=== PATIENT | female | born 1990 | race Caucasian/White ===

== ENCOUNTER 2017-06-06 11:00 | Outpatient (RCR) | payer OTHER, SELFPAY ==
--- NOTE | 2017-06-01 09:52 | HP.PTEVAL ---
Patient's Visit Information MARIA ELENA LUA is a 26 year old F referred to Physical Therapy by DO GHANSHYAM Yancey with a diagnosis of Lumbar radiculopathy down LLE. Date of Evaluation: 05/30/17 Physical Therapist: Aquiles Gray - Visit Plan Frequency: 2x /Week Duration: 4 Weeks Plan: Start with prone over pillows, slow progression into ext as tolerated. Will not likely tolerate aggressive mobility. HS stretching, and modalities to lumbar spine. Add in neutral spine core strengthening, light to start. Pt. has signs suggesting radiating symptoms, but also unable to fully ruleout any pars issues. More likely having disc type injury with lifting being most liky the mechanism of injury. - Subjective Subjective: Pt. is here today for her initial evaluation with diagnosis of radiating low back pain down her LLE. Pt. reports hurting her back ~2 months ago, she reports unsure what caused it but believes it was from lifting. She reports having no history of LBP prior to this injury. She did she her physician who reports wanting different view of xray to rule out PARS issue. Pt. reports having constant pain with increased pain with lifting, sitting , standing, and bending backwards. Pt. reporst pain constant and lumbar spine and does radiating down her L leg to her foot. Today she reports having pain in her R leg as well after transfering a patient at work. 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 Pt. has pain with all work activities as well. Pt. denies changes in LE strength. Pt. reports no sudden LE weakness in either LE. Pt. denies changes in B/B, no pain in saddle region. Pt. is able to sleep on her stomach without much issues. Pt. also report traveling effects pain negatively. Pt. is hopeful to reduce symptoms in order to get back to all work and recreational activities without limitations. - Pain Lumbar spine Pain Intensity (Out of 10): 6 Pain Intensity Range: 2, 8 - Objective POSTURE: Pt. has slight reduction in lumbar lordosis. Pt. has normal iliac crest heights. Pt. has normal AZEEM, but does sway side to side, always moving. PALPATION: Pt. has increased soreness to bilateral lumbar erector spinea, and spring testing to L3-S1 no hypomobility noted. Pt. has no pain with palpation of bilateral hips or SI region. NEUROLOGICAL: Pt. has normal sensation to light and sharp touch throughout bilateral LEs. Pt. has 2+ R achilles and patellar DTR, but does have 1+ L patellar DTA and 2+ L achilles DTR. Pt. is able to rise on heels and toes without issues. ROM: LUMBAR SPINE: flexion nil loss NE, ext mod loss increase NW, SB min loss mild increase NW bilat, rotation min loss NE bilat. Pt. has tight hamstrings bilaterally, - amna and - faddir testing. Pt. has normal hip ROM, mild increase in hip flexion bilaterally. MMT: RLE- ankle 5/5 throughout; knee- 5/5 throughout knee; hip- flexion 4/5, abd 4/5, ext 4/5. LLE- ankle 5/5 throughout; knee- ext 5-/5, 5-/5; hip- flexion 4/5, abd 4/5, ext 4/5. Core strength- poor+. GAIT: Pt. is able to ambulate without AD, normal step length. Pt. has minimal arm swing bilaterally. Pt. reports no changes in pain with gait. STAIRS: Pt. is able to complete with reciprocal pattern, but does report mild increase in symptoms with ascending and descending. - Special Tests L/S Slump test left side: Positive L/S Slump test right side: Negative L/S Left Straight Leg Raise: Positive L/S Right Straight Leg Raise: Negative Lumbar Standing: Flexion - Mechanical Response: No effect Lumbar Standing: Flexion - Symptoms During Testing: No effect Lumbar Standing: Flexion - Symptoms After Testing: No effect Lumbar Standing: Extension - Mechanical Response: No effect Lumbar Standing: Extension - Symptoms During Testing: Increases Lumbar Standing: Extension - Symptoms After Testing: No worse Lumbar Standing: Right Side Glides - Mechanical Response: No effect Lumbar Standing: Right Side [place] - Symptoms During Testing: No effect Lumbar Standing: Right Side [place] - Symptoms After Testing: No effect Lumbar Standing: Left Side [place] - Mechanical Response: No effect Lumbar Standing: Left Side [place] - Symptoms During Testing: No effect Lumbar Standing: Left Side [place] - Symptoms After Testing: No effect Lumbar Lying: Flexion - Mechanical Response: No effect Lumbar Lying: Flexion - Symptoms During Testing: Decreases Lumbar Lying: Flexion - Symptoms After Testing: No better Lumbar Lying: Extension - Mechanical Response: No effect Lumbar Lying: Extension - Symptoms During Testing: Increases Lumbar Lying: Extension - Symptoms After Testing: No worse Comments:: slight flexion improved, but incraesed flexion worsened symptoms. - Goals Goal 1:: Pt. to be I with HEP. Goal Time Frame: 4-6 Weeks Goal 2:: Pt. to have increased lumbar ROM by 25% in all directions without increase in symptoms. Goal Time Frame: 4-6 Weeks Goal 3:: Pt. to have increased core and hip strength increased by 1/2 grade in all directions reducing stress applied to lumbar spine with all lifting and functional mobility. Goal Time Frame: 4-6 Weeks Goal 4:: Pt. to demonstrate improved posture throughout therapy session indicating increased postural awareness. Goal Time Frame: 4-6 Weeks Goal 5:: Pt. to have decreased pain to 0-2/10 pain with all sitting allowing for increased tolerance with traveling. Goal Time Frame: 4-6 Weeks Goal 6:: Pt. to have 0-2/10 pain with all work related activities. Goal Time Frame: 4-6 Weeks - Rehabilitation Potential Physical Therapy Diagnosis: Pt. has signs and symptoms consistent with L lumbar radiculopathy. Pt. did not appear to have a direction preferrence this date, but did better with slight flexion. Pt. has no myotomal weakness, but did have decreased patellar DTR on L side. Pt. has weak core strength and weak hip strength bilaterally. Pt. would benefit from PT reduce symptoms and increase core strength allowing increased tolerance to work and recreational activities. Rehabilitation Potential: Fair - Anticipated Interventions Patient/Client Instruction: Educate patient on: Condition, Plan of Care, Risk Factors, Benefits of Fitness Program For the Purpose of:: To improve decision making, To facilitate caregiver knowledge, To improve self management, To prevent re-injury, To improve ability to perform tasks related to life management, To improve tolerance to ADL's Therapeutic Exercise to Include: Strength training, Power training, Endurance training, Postural training, Flexibilty training, Passive ROM, Active ROM, Dynamic Lumbar Stabilization, Maria De Jesus Exercises For the Purpose of:: To decrease pain, To increase ROM, To improve nutrient delivery to tissue, To increase oxygenation perfusion, To improve muscle performance and motor function, To improve ability to perform ADL's, To improve performance and independence with ADL's, To improve health of tissue, To decrease soft tissue restriction, To increase flexibility/ROM IF ES: Yes Thermo therapy (hot pack): Yes Ultrasound (thermal/non thermal): Yes For the Purpose of:: To decrease pain, To decrease swelling/inflammation, To increase ROM, To improve nutrient delivery to tissue, To increase oxygenation perfusion, To improve muscle performance and motor function Thank you for the opportunity to evaluate your patient. For Medicare and Medicare HMO plans, please review the plan of care and approve it. It will need to be FAXED BACK to us at [phone] for Medicare purposes. Please let me know if there are questions or concerns regarding this plan of care. Physician Signature: Date:
--- NOTE | 2017-12-14 16:45 | HP.PT.NRP ---
HP - Discharge Summary (1) - Patient Information MARIA ELENA LUA was seen in my office for initial evaluation on 05/30/17. The following Plan of Care was established for this patient: Initial Frequency: 2x /Week Initial Duration: 4 Weeks - Anticipated Interventions Patient/Client Instruction: Educate patient on: Condition, Plan of Care, Risk Factors, Benefits of Fitness Program For the Purpose of:: To improve decision making, To facilitate caregiver knowledge, To improve self management, To prevent re-injury, To improve ability to perform tasks related to life management, To improve tolerance to ADL's Therapeutic Exercise to Include: Strength training, Power training, Endurance training, Postural training, Flexibilty training, Passive ROM, Active ROM, Dynamic Lumbar Stabilization, Maria De Jesus Exercises For the Purpose of:: To decrease pain, To increase ROM, To improve nutrient delivery to tissue, To increase oxygenation perfusion, To improve muscle performance and motor function, To improve ability to perform ADL's, To improve performance and independence with ADL's, To improve health of tissue, To decrease soft tissue restriction, To increase flexibility/ROM IF ES: Yes Thermo therapy (hot pack): Yes Ultrasound (thermal/non thermal): Yes For the Purpose of:: To decrease pain, To decrease swelling/inflammation, To increase ROM, To improve nutrient delivery to tissue, To increase oxygenation perfusion, To improve muscle performance and motor function This patient was last seen in our office 06/06/17. Pertinent comments regarding their Physical therapy will appear below: Pt. was seen for her lumbar radicuolopathy. Pt. was having positive effects with extension progression. Pt. did not attend her final visits. Pt. has not been seen in ~7 months and will be DC from PT at this point in time. At this point I will be discontinuing this patient from physical therapy. I would be happy to see this patient again in the future if found appropriate by the physician. Thank you! Aquiles Gray
== END 2017-06-06 19:00 | disposition home or self-care (01) ==
LOC: PT 11:00
PROVIDERS: Family Provider Family Medicine; PCP Family Medicine; Visit Provider Orthopaedic Surgery
DX: M54.10 Radiculopathy, site unspecified (principal); M54.5 Low back pain
CPT/HCPCS: 72110; 97014; 97110; 97161; G0283

== ENCOUNTER → 2018-02-23 15:35 | Outpatient (CLI) | payer OTHER, SELFPAY | PROVIDERS: Referring Provider Physician Assistant; Visit Provider Physician Assistant | DX: J02.9 Acute pharyngitis, unspecified (principal) | CPT/HCPCS: 87081 ==

== ENCOUNTER 2018-03-24 06:53 | Day surgery (SDC) | payer OTHER, SELFPAY ==
[2018-03-24] VITALS (9 sets, daily range): BP systolic 98–123; BP diastolic 54–77; PULSE 65–87; RESP 16–18; TEMP 36.5–37; O2SAT 92–97; BMI 38.5
[2018-03-24 07:28] LABS: Internal QC Validated? YES +Cl - CLEAR BKGD; Pregnancy, Urine Negative Negative
--- NOTE | 2018-03-24 08:25 | TONS_PTH ---
PATIENT: MARIA ELENA LUA LOC: [facility] [place] U#:[id number] AGE/SX: 27/F ROOM: RE03/24/[address]: Dr. Alvaro James MD : 1990 BED: DIS: 03/24/2018 SPEC #: [id number] RECD: 03/24/18 11:15 STATUS: GLENIS REDenny #: [id number] MICHELLE: 03/24/18 08:[address]: Alvaro James DEPT: SURGICAL PATHOLOGY RECD BY: Ryan Barney ENTERED: 03/24/18 11:39 SP TYPE: TONSILS OTHR DR: Dr. Vishnu Alejo III, MD Tissues: A - Tonsil, NOS B - Tonsil, NOS Procedures: Surgery Specimen Level III HEADER OPERATION: Tonsillectomy PRE-OP DIAGNOSIS: Chronic tonsillitis TISSUE SUBMITTED: A - Right tonsil, B - Left tonsil MICROSCOPIC DIAGNOSIS A. Right tonsil, tonsillectomy: Benign lymphoid hyperplasia consistent with chronic tonsillitis. Organisms consistent with actinomyces. B. Left tonsil, tonsillectomy: Benign lymphoid hyperplasia consistent with chronic tonsillitis. Organisms consistent with actinomyces. AM:radha 03/27/18 MICROSCOPIC DESCRIPTION Slides are reviewed. GROSS DESCRIPTION A. Received in formalin labeled with the patient's name and designated right tonsil The specimen consists of one tonsil that in aggregate weigh 3.7 gm. The right tonsil measures 3 x 2 x 1.5 cm B. Received in formalin labeled with the patient's name and designated left tonsil. The specimen consists of one tonsil that in aggregate weigh 3.8 gm. The left tonsil measures 3 x 2 x 1.5 cm. / SJ:radha 03/24/18 TC: 5 CPT: 86345 x2
--- NOTE | 2018-03-24 09:23 | PCM.OPRPT ---
Problem List (1) Chronic tonsillitis Status: Chronic Report of Operation Date of Procedure: 03/24/18 Pre-Operative Diagnosis: chronic tonsillitis Post-Operative Diagnosis: same Surgery/Procedure Performed:: Tonsillectomy Description of Surgical Findings:: Tee is a 27-year-old female who presents for evaluation of chronic recurrent severe sore throats and tonsillitis. Examination showed 3+ cryptic tonsillar hypertrophy and she was counseled regarding the above procedure in hopes of improvement was eager to proceed. The risks, alternatives, potential benefits, and complications were discussed at length and any questions answered to the patient and/or caregiver's satisfaction. Witnessed informed consent was obtained in the office, and the patient and/or caregiver was agreeable to proceed. Procedure went as follows: The patient was identified in the preoperative holding, brought to the operating room, was placed under general anesthesia and intubated. When appropriate anesthesia was obtained, the head of bed was rotated and the patient prepped and draped in usual sterile fashion. A Jackie Lorenzo mouthgag was then placed and the patient suspended from the Choi stand. The oral cavity examined and is noted to have 3+ cryptic tonsillar hypertrophy. Beginning on the right side the right tonsil was then grasped with a curved tenaculum and dissected from the underlying capsule with monopolar cautery. This was then sent as specimen. Similar procedure was then completed on the contralateral side. The oral and nasal cavities were then irrigated with saline solution, an NG tube was then placed to decompress the stomach. The patient was then returned to anesthesia, revived and extubated having tolerated the procedure well. Type of Anesthesia:: General Anesthesiologist: Alvaro Jeffries Special Medications: none Specimen's removed: bilateral tonsils Drains: none Estimated Blood Loss (mL): 5 mL Fluids Replaced: 1000 mL Grafts/Implants Used: none - Complications none - Admit VTE Documentation VTE Present on Admission: No VTE Mechan Device Prophylaxis: SCD's VTE Pharm Prophylaxis ordered?: No
--- NOTE | 2018-03-24 09:39 | DCINST_ITS ---
Discharge Diet: No Restrictions Discharge Activity: Return to Normal Activity, May not drive while taking narcotic pain medications. Call your doctor if your incision/area has: Sudden Increased Bleeding Call your doctor if you observe: Fever of 101 or Higher, Uncontrolled pain Allergies/Adverse Reactions: Allergies No Known Allergies Allergy (Verified 03/22/18 08:26) Medications to take at Discharge Gabapentin 300 mg PO BID 10/04/16 Propranolol HCl [Inderal (Beta Ezequiel)] 60 mg PO BID 10/04/16 ibuprofen 200 mg tablet 200 mg PO ONCE 05/24/17 Albuterol IH (ProAir) [Proair Hfa (SP)Vent Pts] 1 - 2 puff INHALATION Q6H PRN P RN 03/22/18 Eletriptan Hydrobromide [Relpax] 40 mg PO .X1 PRN 03/22/18 Erenumab-Aooe [Aimovig Autoinjector (2 Pack)] 70 mg SQ QMONTH 03/22/18 Naratriptan HCl [Amerge] 2.5 mg PO PRN PRN 03/22/18 Ondansetron [Zofran] 8 mg PO Q12H PRN PRN 03/22/18 Rizatriptan Benzoate [Maxalt] 10 mg PO .X1 PRN 03/22/18 Sumatriptan Succinate [Imitrex] 100 mg PO .X1 PRN 03/22/18 Venlafaxine HCl [Effexor] 75 mg PO DAILY 03/22/18 Primary Care Physician: Vishnu Alejo III, MD [Primary Care Provider] - Test Results: Test results from this visit will be discussed in further detail at your follow- up appointment, if applicable. Please Follow Up With: Alvaro James MD When: 2 weeks
[2018-03-24] MEDS: Acetaminophen 160 MG/5 ML UDC 500 MG PO (12:18)
== END 2018-03-24 13:06 | disposition home or self-care (01) ==
LOC: SDC 06:55 → AC 06:55
PROVIDERS: Family Provider Family Medicine; PCP Family Medicine; Referring Provider Otolaryngology; Visit Provider Otolaryngology
PROC: (CPT 42826; principal; 2018-03-24 08:10)
DX: J35.01 Chronic tonsillitis (principal); G43.909 Migraine, unspecified, not intractable, without status migrainosus; J45.909 Unspecified asthma, uncomplicated; Z79.899 Other long term (current) drug therapy
CPT/HCPCS: 42826; 81025; 88304; J7120; J2405

== ENCOUNTER 2018-04-03 06:01 | Day surgery (SDC) | payer OTHER, SELFPAY ==
[2018-04-03] VITALS (13 sets, daily range): BP systolic 88–132; BP diastolic 53–97; PULSE 75–111; RESP 16–18; TEMP 35.9–37.4; O2SAT 95–99; BMI 39.2
--- NOTE | 2018-04-03 06:03 | ED.RN ---
DR HATFIELD PAGED
--- NOTE | 2018-04-03 06:07 | ED.VISSUMM ---
- ER Visit Summary Date of Service: 04/03/18 Chief Complaint: Postop bleed History of Present Illness: The patient is a 27 F 10-day postop tonsillectomy by Dr. James. Patient on soft foods, pain medicines of Tylenol and Motrin. States there is mild bleeding last night, did call her surgeon. 3:50 AM this morning worsening bleeding. EMS was contacted. Emesis bags have been filled up half way x2. No anticoagulation medicines. Sore throat from surgery. History of migraines. Physical Examination: General: Alert and oriented ?3, no acute distress HEENT: Normocephalic, atraumatic. Moist mucosa membranes. Blood in the oropharynx, spitting up blood. There is a clot left peritonsillar pillar. Neck: supple, nontender. Cardiovascular: Regular tachycardic rate and rhythm, no murmurs Respiratory: Normal breath sounds, symmetric, no distress Abdomen: Soft, nontender, nondistended Extremities: Nontender, no edema, pulses intact ?4 Neuro: no focal neurological deficits. Skin: No pallor Test Results: CBC, BMP, coags, type and screen pending Emergency Department Course and Treatment: Patient postop bleed, for evaluation of emesis bags, would be approximately 1 L that she is spitting up. Clot in the left peritonsillar pillar. Dr. James was contacted on her arrival, he is on his way to take the patient to the OR. The OR team will be contacted. Last meal was last evening. Treatment Plan: [] Disposition: To OR Impression: 1. Postop bleed 2. Status post tonsillectomy This note was generated with [employer] dictation software. It may contain incorrect words, spelling, and punctuation that were not noted in review of the chart prior to signing ED Disposition - Plan for ED Patient: Disposition: Acute Care Hospital [facility] Chief Complaint: Other, Pain/Inj Diagnosis: Post-op bleeding, Post-tonsillectomy hemorrhage Referrals: Vishnu Alejo III, MD [Primary Care Provider] -
--- NOTE | 2018-04-03 06:12 | ED.DCSUM_ITS ---
- ER Visit Summary Date of Service: 04/03/18 Chief Complaint: Postop bleed History of Present Illness: The patient is a 27 F 10-day postop tonsillectomy by Dr. James. Patient on soft foods, pain medicines of Tylenol and Motrin. States there is mild bleeding last night, did call her surgeon. 3:50 AM this morning worsening bleeding. EMS was contacted. Emesis bags have been filled up half way x2. No anticoagulation medicines. Sore throat from surgery. History of migraines. Physical Examination: General: Alert and oriented ?3, no acute distress HEENT: Normocephalic, atraumatic. Moist mucosa membranes. Blood in the oropharynx, spitting up blood. There is a clot left peritonsillar pillar. Neck: supple, nontender. Cardiovascular: Regular tachycardic rate and rhythm, no murmurs Respiratory: Normal breath sounds, symmetric, no distress Abdomen: Soft, nontender, nondistended Extremities: Nontender, no edema, pulses intact ?4 Neuro: no focal neurological deficits. Skin: No pallor Test Results: CBC, BMP, coags, type and screen pending Emergency Department Course and Treatment: Patient postop bleed, for evaluation of emesis bags, would be approximately 1 L that she is spitting up. Clot in the left peritonsillar pillar. Dr. James was contacted on her arrival, he is on his way to take the patient to the OR. The OR team will be contacted. Last meal was last evening. Treatment Plan: [] Disposition: To OR Impression: 1. Postop bleed 2. Status post tonsillectomy This note was generated with [employer] dictation software. It may contain incorrect words, spelling, and punctuation that were not noted in review of the chart prior to signing ED Disposition - Plan for ED Patient: Disposition: Acute Care Hospital [facility] Chief Complaint: Other, Pain/Inj Diagnosis: Post-op bleeding, Post-tonsillectomy hemorrhage Referrals: Vishnu Alejo III, MD [Primary Care Provider] -
[2018-04-03] MEDS: 0.9% Normal Saline 1,000 ML 150 ML IV (06:15)
[2018-04-03 06:32] LABS: Absolute Lymphocyte Count 3.19 X10^3/ul (0.83-4.51); Absolute Neutrophil Count 7.7 X10^3/uL (2.0-7.7); Anion Gap 12 (5-15); BUN 15 mg/dL (7-18); BUN/Creat Ratio 18.6 RATIO (10-20); Basophil# 0.05 X10^3/uL; Basophil% 0.4 % (0-1); Calcium,Total 8.1 mg/dL (8.5-10.1); Chloride 101 mmol/L (98-107); Creatinine, Serum 0.81 mg/dL (0.55-1.02); EST Glomerular Filtration Rate 90 mL/min (>60); Eosinophils% 5.5 % (0-5); Est Glom Filt Rate - Afr Amer 109 mL/min (>60); Estimated Creatinine Clearance 90.09 ml/min; Glucose 105 mg/dL (74-106); Hematocrit 34.3 % (37-47); Hemoglobin 10.8 g/dl (12.0-15.0); Lymphocyte # 3.19 X10^3/ul (4.0); Lymphocyte % 25.1 % (19-41); Mean Corp Hgb Conc 31.5 g/gl (32-36); Mean Corpuscular Hgb 26.3 pg (27.0-32.0); Mean Corpuscular Volume 83.7 fL (81-99); Mean Platelet Vol. 9.8 fl (6.2-12.0); Monocyte# 1.05 X10^3/uL; Monocyte% 8.3 % (0-10); Neutrophil # 7.68 X10^3/uL (2.7-7.7); Neutrophil % 60.5 % (47-70); POSITIVE COUNT NO; POSITIVE DIFFERENTIAL NO; POSITIVE MORPHOLOGY NO; Platelet Count 589 K/mm3 (150-450); Potassium 3.5 mmol/L (3.5-5.1); RBC Distribution Width CV 13.1 % (11.6-14.6); RBC Distribution Width SD 39.8 fl (35.1-43.9); Sodium Level 138 mmol/L (136-145); White Blood Count 12.7 K/mm3 (4.4-11.0)
[2018-04-03 06:50] LABS: Prothrombin Time (Protime)PT. 13.2 SECONDS (11.7-14.9)
[2018-04-03 06:51] LABS: Partial Thromboplast Time 35.4 Seconds (24.1-36.2)
--- NOTE | 2018-04-03 07:35 | PCM.OPRPT ---
Problem List (1) Post-tonsillectomy hemorrhage Status: Acute Report of Operation Date of Procedure: 04/03/18 Pre-Operative Diagnosis: Post-tonsillectomy hemorrhage Post-Operative Diagnosis: same Surgery/Procedure Performed:: Control of post-tonsillectomy hemorrhage Description of Surgical Findings:: Tee is a 27-year-old female status post tonsillectomy for chronic tonsillitis who presented with complaints of profuse oropharyngeal bleeding starting around 330 this morning. Examination showed bleeding from the oropharynx consistent with post tonsillectomy hemorrhage and return to the OR for control as she had episodic bleeding over the last 12 hours was advised for definitive evaluation and control. The risks, alternatives, potential benefits, and complications were discussed at length and any questions answered to the patient and/or caregiver's satisfaction. Witnessed informed consent was obtained in the office, and the patient and/or caregiver was agreeable to proceed. Procedure went as follows: The patient was identified in the preoperative holding brought to the operating room where she is placed under general anesthesia which using rapid sequence technique. When appropriate anesthesia was obtained, the head of bed was rotated the patient prepped and draped in a sterile fashion. A Jackie-Lorenzo mouthgag was then placed and the patient suspended from the Choi jumpbasting canvas baster the oral cavity examined. There is noted to be an organized clot arising from the inferior left tonsillar pillar. This was removed to show a small point of venous bleeding. This was controlled with suction electrocautery. The remaining tonsillar eschar was reviewed to the suction and no further bleeding site was identified. An NG tube was then placed to decompress the stomach and the stomach suctioned until clear after irrigated with saline solution. Upon completion the patient was taken out of suspension return to anesthesia she was divided and expanded without complication having tolerated the procedure well. Type of Anesthesia:: General Anesthesiologist: Rolly Rm Special Medications: none Specimen's removed: none Estimated Blood Loss (mL): 0 mL Fluids Replaced: 400 mL Grafts/Implants Used: none - Admit VTE Documentation VTE Present on Admission: No VTE Mechan Device Prophylaxis: None VTE Pharm Prophylaxis ordered?: No Reason prophylaxis not ordered:: Procedure Not Indicated
--- NOTE | 2018-04-03 07:39 | DCINST_ITS ---
Discharge Diet: No Restrictions Discharge Activity: Return to Normal Activity Call your doctor if your incision/area has: Sudden Increased Bleeding Call your doctor if you observe: Fever of 101 or Higher, Uncontrolled pain Allergies/Adverse Reactions: Allergies No Known Allergies Allergy (Verified 04/03/18 06:11) Medications to take at Discharge Gabapentin 300 mg PO BID 10/04/16 Propranolol HCl [Inderal (Beta Ezequiel)] 60 mg PO BID 10/04/16 Albuterol IH (ProAir) [Proair Hfa] 1 - 2 puff INHALATION Q6H PRN PRN 03/22/18 Eletriptan Hydrobromide [Relpax] 40 mg PO .X1 PRN 03/22/18 Erenumab-Aooe [Aimovig Autoinjector (2 Pack)] 70 mg SQ QMONTH 03/22/18 Naratriptan HCl [Amerge] 2.5 mg PO PRN PRN 03/22/18 Ondansetron [Zofran] 8 mg PO Q12H PRN PRN 03/22/18 Rizatriptan Benzoate [Maxalt] 10 mg PO .X1 PRN 03/22/18 Sumatriptan Succinate [Imitrex] 100 mg PO .X1 PRN 03/22/18 Venlafaxine HCl [Effexor] 75 mg PO DAILY 03/22/18 Acetaminophen Liquid [Tylenol Liquid] 500 mg PO Q4H PRN PRN udc 03/24/18 Ibuprofen Liquid [Motrin Liquid] 600 mg PO Q8H PRN PRN udc 03/24/18 Primary Care Physician: Vishnu Alejo III, MD [Primary Care Provider] - Test Results: Test results from this visit will be discussed in further detail at your follow- up appointment, if applicable. Please Follow Up With: Alvaro James MD When: 2 weeks
[2018-04-03] MEDS: Lactated Ringers 1,000 ML 100 ML IV (09:21)
[2018-04-03] MEDS: Ibuprofen 100 MG/5 ML UDC 500 MG PO (09:47)
--- NOTE | 2018-04-03 11:32 | SUR.PHASEII ---
PATIENT WILL NOT DRINK FLUIDS AFTER REPEATED ENCOURAGEMENT AND EDUCATION. HAS TAKEN FRUIT ICE, BUT REFUSING TO DRINK. ADVISED THAT DRINKING WILL HELP PATIENT IMPROVE, PREVENT FURTHER POST-OP BLEEDING AND PAIN. NOTIFIED MALISSA VANG TO D/C HOME.
== END 2018-04-03 12:09 | disposition home or self-care (01) ==
LOC: ED 06:28 → SDC 06:32
PROVIDERS: Emergency Provider Emergency Medicine; Family Provider Family Medicine; PCP Family Medicine; Visit Provider Otolaryngology
PROC: (CPT 42962; principal; 2018-04-03 07:35)
DX: J95.830 Postprocedural hemorrhage of a respiratory system organ or structure following a respiratory system procedure (principal)
CPT/HCPCS: 42962; 80048; 85025; 85610; 85730; 86850; 86900; 99283; J7120; J2405

== ENCOUNTER 2018-07-07 14:20 | Emergency (ER) | payer OTHER, SELFPAY ==
[2018-04-03 06:18] VITALS: BMI 39.2
[2018-07-07 14:21] VITALS: BP 161/95; PULSE 77; RESP 16; TEMP 35.6; BMI 37.3
--- NOTE | 2018-07-07 14:42 | ED.DCSUM_ITS ---
- ER Visit Summary Date of Service: 07/07/18 Chief Complaint: [] History of Present Illness: The patient is a 27 F presents to the emergency department migraine headache. Patient has a history of recurrent migraines. She is on daily controlling medications and prophylactic medications. She states over the past 5 days, she is had almost a persistent headache. She has tried her DHE and her triptan injection with some improvement, but then the headache returns. She denies any fevers or chills. She denies trauma. She denies visual change. She denies any other systemic symptoms. She states does feel like her normal headaches. Physical Examination: Well-appearing patient is in no acute distress. Head is normocephalic, atraumatic. Pupils equal round reactive, extraocular muscles intact. There is no temporal artery tenderness. There is no vesicular rash. Neck supple. Kernig's and Brudzinski's are negative. Heart regular rate and rhythm. Lungs clear, chest nontender. Abdomen soft, nontender, nondistended. Neuro exam displays no focal or lateralizing deficit. 2+ symmetric lower extremity reflexes. No clonus. No ataxia or gait abnormality. Test Results: [] Emergency Department Course and Treatment: The patient has a benign neurologic examination. She is not meningitic. She is nonencephalopathic. Her neck is supple. She was treated with migraine abortive medications. She did have im provement of her symptoms. I also gave her Decadron to prevent rebound headache. On reevaluation, she is resting comfortably and is requesting discharge. I feel this is reasonable. The patient was counseled concerning symptoms and reasons to return. She will be discharged home. Treatment Plan: [] Disposition: Discharge Impression: Migraine headache This note was generated with Jumio dictation software. It may contain incorrect words, spelling, and punctuation that were not noted in review of the chart prior to signing ED Disposition - Plan for ED Patient: Instructions: ED Headache Migraine Referrals: Vishnu Aleoj III, MD [Primary Care Provider] -
[2018-07-07] MEDS: DiphenhydrAMINE 50 MG/ML Syringe IV (14:59)
[2018-07-07] MEDS: 0.9% Normal Saline 1,000 ML 999 ML IV (14:59)
[2018-07-07] MEDS: Ketorolac 30 MG/ML Syringe IV (14:59)
[2018-07-07] MEDS: proCHLORPERazine 10 MG/2 ML Vial IV (15:00)
== END 2018-07-07 16:28 | disposition home or self-care (01) ==
LOC: ED 14:37
PROVIDERS: Emergency Provider Emergency Medicine; Family Provider Family Medicine; PCP Family Medicine
DX: G43.909 Migraine, unspecified, not intractable, without status migrainosus (principal); Z79.899 Other long term (current) drug therapy
CPT/HCPCS: 96361; 96374; 96375; 99283; J7030; A4216

== ENCOUNTER 2018-10-18 16:23 | Emergency (ER) | payer OTHER, SELFPAY ==
[2018-10-18 16:24] VITALS: BP 171/106; PULSE 95; RESP 16; TEMP 36.1; O2SAT 98; BMI 38.6
--- NOTE | 2018-10-18 16:44 | CT_ITS ---
STUDY: CT BRAIN WITHOUT CONTRAST REASON FOR EXAM: Female, 28 years old. Dizziness and confusion RADIATION DOSAGE (If Supplied By Facility): CTDIvol = ( 44.99 ) mGy, DLP = ( 745.49 ) mGycm TECHNIQUE: Transaxial CT imaging of the brain was performed without administration of intravenous contrast material. Individualized dose optimization techniques were used for this CT. COMPARISON: 2016 FINDINGS: Normal soft tissue structures. Normal calvarium. Normal size ventricles and extra-axial spaces for the patient's age. Normal white matter tracts of the cerebral hemispheres. Normal basal ganglia and thalami. Normal brainstem. Normal cerebellum. There is no intracranial hemorrhage. There are no findings of an acute ischemic infarction. Normal visualized paranasal sinuses. CT/Brain/Head without Contrast IMPRESSION: Normal unenhanced CT scan of the brain. Electronically Signed: Jeremy Rodriguez MD at 17:14 EDT , Service support ,
--- NOTE | 2018-10-18 16:46 | ED.VISSUMM ---
- ER Visit Summary Date of Service: 10/18/18 Chief Complaint: Jaw pain History of Present Illness: The patient is a 28 F with jaw pain for 2 days. The pain is under her left mandible. Worse with clenching, touch, and stretching her neck. She thinks is related to a fractured tooth and possible dental infection. She fractured the tooth secondary to underlying decay about a month ago patient presented to urgent care. She said that she has been having migraines for the past week. She has outpatient treatment scheduled for Tuesday and Tuesday of next week. She reports some confusion and feeling weird. She says she has had some memory issues and dizziness for the past couple days. No speech changes. No vision changes.. No facial droop. No focal weakness or numbness. No blood thinners. No trauma. No fevers or other associated symptoms. Physical Examination: Afebrile and vital signs are unremarkable. Patient is alert and oriented. No acute distress. HEENT exam is unremarkable except she does have some tenderness to her left submandibular region. No definite mass is appreciated, but the area does demonstrate some fullness. She has a fractured left mandibular molar secondary to underlying decay. No abscess is visualized. Neck otherwise unremarkable. Cranial nerves grossly intact. Normal strength and sensation. Patient is completely alert and oriented and she is able to describe her symptoms and history in very great detail. Test Results: CT pending. Emergency Department Course and Treatment: Patient treated with fluids, Compazine, Benadryl, and Toradol. Will reassess. On reevaluation, the patient's symptoms are better. She is drowsy. Pain is improved. CT was unremarkable. I believe the patient is appropriate for outpatient follow-up. No further indication for imaging or other testing. Patient was given a prescription for Pen-Vee K. Follow-up with dental and primary care. Return for any new or worsening issues. Treatment Plan: As above Disposition: Discharge Impression: 1. Headache 2. Left mandible pain This note was generated with J[employer] dictation software. It may contain incorrect words, spelling, and punctuation that were not noted in review of the chart prior to signing ED Disposition - Plan for ED Patient: Referrals: Vishnu Alejo III, MD [Primary Care Provider] -
--- NOTE | 2018-10-18 16:50 | ED.DCSUM_ITS ---
- ER Visit Summary Date of Service: 10/18/18 Chief Complaint: Jaw pain History of Present Illness: The patient is a 28 F with jaw pain for 2 days. The pain is under her left mandible. Worse with clenching, touch, and stretching her neck. She thinks is related to a fractured tooth and possible dental infe ction. She fractured the tooth secondary to underlying decay about a month ago patient presented to urgent care. She said that she has been having migraines for the past week. She has outpatient treatment scheduled for Tuesday and Tuesday of next week. She reports some confusion and feeling weird. She says she has had some memory issues and dizziness for the past couple days. No speech changes. No vision changes.. No facial droop. No focal weakness or numbness. No blood thinners. No trauma. No fevers or other associated symptoms. Physical Examination: Afebrile and vital signs are unremarkable. Patient is alert and oriented. No acute distress. HEENT exam is unremarkable except she does have some tenderness to her left submandibular region. No definite mass is appreciated, but the area does demonstrate some fullness. She has a fractured left mandibular molar secondary to underlying decay. No abscess is visualized. Neck otherwise unremarkable. Cranial nerves grossly intact. Normal strength and sensation. Patient is completely alert and oriented and she is able to describe her symptoms and history in very great detail. Test Results: CT pending. Emergency Department Course and Treatment: Patient treated with fluids, Compazine, Benadryl, and Toradol. Will reassess. On reevaluation, the patient's symptoms are better. She is drowsy. Pain is improved. CT was unremarkable. I believe the patient is appropriate for outpatient follow-up. No further indication for imaging or other testing. Patient was given a prescription for Pen-Vee K. Follow-up with dental and primary care. Return for any new or worsening issues. Treatment Plan: As above Disposition: Discharge Impression: 1. Headache 2. Left mandible pain This note was generated with [employer] dictation software. It may contain incorrect words, spelling, and punctuation that were not noted in review of the chart prior to signing ED Disposition - Plan for ED Patient: Referrals: Vishnu Alejo III, MD [Primary Care Provider] -
[2018-10-18] MEDS: 0.9% Normal Saline 1,000 ML 999 ML IV (17:28)
[2018-10-18] MEDS: DiphenhydrAMINE 50 MG/ML Syringe 25 MG IV (17:28)
[2018-10-18] MEDS: proCHLORPERazine 10 MG/2 ML Vial IV (17:28)
[2018-10-18] MEDS: Ketorolac 30 MG/ML Syringe IV (17:28)
--- NOTE | 2018-10-18 18:01 | ED.DEP ---
ED Disposition - Plan for ED Patient: Instructions: ED Cephalgia Unspecified Prescriptions: Penicillin V Potassium 500 mg PO 4X/DAY #40 tab Referrals: Vishnu Alejo III, MD [Primary Care Provider] -
[2018-10-18 18:39] VITALS: PULSE 92; RESP 17; O2SAT 99
== END 2018-10-18 18:45 | disposition home or self-care (01) ==
LOC: ED 16:58
PROVIDERS: Emergency Provider Emergency Medicine; Family Provider Family Medicine; PCP Family Medicine
DX: R51 Headache (principal); R68.84 Jaw pain
CPT/HCPCS: 70450; 96361; 96374; 96375; 99283; J7030; A4216

== ENCOUNTER 2019-02-28 10:37 | Emergency (ER) | payer OTHER, SELFPAY ==
[2019-02-28 10:39] VITALS: BP 148/101; PULSE 97; RESP 14; TEMP 37.3; O2SAT 99; BMI 36.3
[2019-02-28 11:02] VITALS: BP 144/80; PULSE 84; RESP 17; O2SAT 96
--- NOTE | 2019-02-28 11:05 | RAD_ITS ---
STUDY: X-RAY CHEST REASON FOR EXAM: Female, 28 years old. Chest pain and left-sided arm pain. TECHNIQUE: Single AP portable view of the chest. COMPARISON: Comparison is made with prior study dated April 15, 2016. FINDINGS: EKG electrodes are seen. The lungs are clear and expanded. There is no demonstrated pleural abnormality. Normal size heart. Normal mediastinum and kay. Normal visualized pulmonary arteries. Normal visualized aortic arch and descending thoracic aorta. Normal visualized thoracic spine. Normal visualized ribs, clavicles, and shoulders. There is no demonstrated abnormality of the visualized soft tissue structures of the upper abdomen. RAD/Chest 1 View (Portable) IMPRESSION: Normal x-ray examination of the chest. Electronically Signed: Richie Gray, at 11:28 EDT , Service support ,
--- NOTE | 2019-02-28 11:05 | EKG12_ITS ---
Test Reason : CP Blood Pressure : / mmHG Vent. Rate : 090 BPM Atrial Rate : 090 BPM P-R Int : 140 ms QRS Dur : 086 ms QT Int : 358 ms P-R-T Axes : 020 007 010 degrees QTc Int : 437 ms Normal sinus rhythm Normal ECG Confirmed by ALEXANDREA ANTONIO, KEENAN ([id number]), general expeditor RADHIKA RUIZ ([id number]) on 03/07/2019 11:02:21 AM Referred By: DC Confirmed By:OKSANA LECHUGA MD
[2019-02-28 11:25] VITALS: O2SAT 95
[2019-02-28 11:29] LABS: Absolute Lymphocyte Count 2.11 X10^3/uL (0.83-4.51); Absolute Neutrophil Count 5.6 X10^3/uL (2.0-7.7); Basophil# 0.06 X10^3/uL; Basophil% 0.7 % (0-1); Eosinophil# 0.42 X10^3/uL; Eosinophils% 4.8 % (0-5); Hematocrit 40.7 % (37-47); Hemoglobin 12.8 g/dL (12.0-15.0); Lymphocyte # 2.11 X10^3/ul (4.0); Mean Corp Hgb Conc 31.4 g/dL (32-36); Mean Corpuscular Hgb 25.6 pg (27.0-32.0); Mean Corpuscular Volume 81.4 fL (81-99); Mean Platelet Vol. 10.2 fl (6.2-12.0); Monocyte# 0.55 X10^3/uL; Monocyte% 6.3 % (0-10); NRBC Flagged by Analyzer 0 % (0-5); Neutrophil # 5.62 X10^3/uL (2.7-7.7); Neutrophil % 63.7 % (47-70); Platelet Count 367 K/mm3 (150-450); RBC Distribution Width CV 13.4 % (11.6-14.6); RBC Distribution Width SD 39.4 fl (35.1-43.9); White Blood Count 8.8 K/mm3 (4.4-11.0)
[2019-02-28 11:48] LABS: Anion Gap 9 (5-15); BUN 11 mg/dL (7-18); BUN/Creat Ratio 16.9 RATIO (10-20); Calcium,Total 8.8 mg/dL (8.5-10.1); Chloride 106 mmol/L (98-107); Creatinine, Serum 0.65 mg/dL (0.55-1.02); EST Glomerular Filtration Rate 115 mL/min (>60); Est Glom Filt Rate - Afr Amer 139 mL/min (>60); Estimated Creatinine Clearance 115.95 ml/min; Glucose 98 mg/dL (74-106); Potassium 3.8 mmol/L (3.5-5.1); Sodium Level 140 mmol/L (136-145)
--- NOTE | 2019-02-28 11:57 | ED.VISSUMM ---
- ER Visit Summary Date of Service: 02/28/19 Chief Complaint: Chest pain History of Present Illness: The patient is a 28 F with chest pain that radiates to her left arm. She has had this intermittently for the last 2 to 3 days. Nothing seems to bring it on. It comes on randomly. She does feel nauseated, weak, and shaky at times. She has a history of migraines and back pain. Denies any history of heart disease, PE, lung disease, aortic disease. Physical Examination: Afebrile and vital signs unremarkable except blood pressure 148/101. The patient appears nontoxic and in no acute distress. Heart regular. Lungs clear. Skin normal. Extremities nontender with no edema. Test Results: EKG showed sinus rhythm at a rate of 90. CBC, BMP, troponin, chest x-ray normal. Emergency Department Course and Treatment: Patient is PER C-. She has no ACS risk factors. Nothing to suggest aortic disease. Her chest x-ray, EKG, labs were all unremarkable. I believe she is appropriate for outpatient follow-up. She declined delta troponin. She will call her PCP for outpatient follow-up. Return for any new or worsening issues. Treatment Plan: As above Disposition: Discharge Impression: 1. Atypical chest pain This note was generated with [employer] dictation software. It may contain incorrect words, spelling, and punctuation that were not noted in review of the chart prior to signing ED Disposition - Plan for ED Patient: Referrals: Vishnu Alejo III, MD [Primary Care Provider] -
--- NOTE | 2019-02-28 11:58 | ED.DEP ---
ED Disposition - Plan for ED Patient: Instructions: CHEST PAIN, Uncertain Cause Referrals: Vishnu Alejo III, MD [Primary Care Provider] -
[2019-02-28 12:21] VITALS: BP 132/76; PULSE 84; RESP 13; O2SAT 98
== END 2019-02-28 12:21 | disposition home or self-care (01) ==
LOC: ED 11:25
PROVIDERS: Emergency Provider Emergency Medicine; Family Provider Family Medicine; PCP Family Medicine
DX: R07.89 Other chest pain (principal); G43.909 Migraine, unspecified, not intractable, without status migrainosus; Z79.899 Other long term (current) drug therapy
CPT/HCPCS: 71045; 80048; 84484; 85025; 93005; 99284; A4216

== ENCOUNTER 2019-05-03 07:17 | Day surgery (SDC) | payer OTHER, SELFPAY ==
--- NOTE | 2019-05-02 16:38 | HP.PCM_ITS ---
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 Pt reports menses are every 30+ days, with some spotting sometimes 5 days before start of menses. Pt reports over past few months menses are heavy with clots and painful. Pt reports bleeding lasts 5 days. Pt c/o pelvic pain over past month- had CT which was negative and pelvic us which shows EM polyp. Pt denies CP, SOB, dizziness. ? PAST MEDICAL HISTORY PAST MEDICAL HISTORY Diagnosis Date ? Abnormal Pap smear of cervix ? ? ASCUS ? Allergic rhinitis, cause unspecified ? ? Anxiety 03/17/2010 ? buspar ? Asthma ? ? Concussion 2007 ? Dysmenorrhea ? ? Excessive or frequent menstruation ? ? Heavy periods ? Mental disorder ? ? Migraine, unspecified, with intractable migraine, so stated, without mention of status migrainosus ? ? Migraine ? Ovarian cyst ? ? resolved ? Pain in joint, pelvic region and thigh 07/29/2014 ? 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 PID (acute pelvic inflammatory disease) 2012 ? 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 Post depression 12/31/2015 ? Thyroid disease ? ? goiter ? Trauma ? ? PAST SURGICAL HISTORY PAST SURGICAL HISTORY Procedure Laterality Date ? EGD W/O OR W/BRUSH/WASH ? 03/21/13 ? EGD ? KNEE 1 OP 2 VIEWS ? ? ? KNEE ARTHROSCOPY/SURGERY ? 11/2011 ? left ? LAP CHOLECYSTECT/CHOLANGIOGRAPHY ? 02-14-13 ? TONSILLECTOMY HX ? 03/2018 ? [facility]-Dr. James ? TUBAL LIGATION HX ? 01/13/16 ? filshie clips ? FAMILY HISTORY FAMILY HISTORY Problem Relation Age of Onset ? Cancer Mother ? ? thyroid, skin. - precancerous cervical cells on pap smear ? Hypertension Mother ? ? Breast Cancer Maternal Grandmother ? ? Hypertension Maternal Grandmother ? ? Asthma Maternal Grandmother ? ? Heart Maternal Grandfather ? ? Ischemic Heart Disease Maternal Grandfather ? ? stomach, ovarian. ? Ovarian cancer Other ? ? Great Grandmother ? SOCIAL HISTORY Social History ? Tobacco Use ? Smoking status: Never Smoker ? Smokeless tobacco: Never Used Substance Use Topics ? Alcohol use: Yes ? ? Comment: 1 nightout every 2 months- 2-3 drinks-None since ? Drug use: No ? CURRENT MEDICATIONS Current Outpatient Medications Medication Sig ? cyclobenzaprine (FLEXERIL) 10 mg tablet Take 0.5-1 tablets by mouth three times daily as needed. ? ondansetron (ZOFRAN) 4 mg tablet Take 1 tablet by mouth once daily as needed (for nausea.). ? naratriptan (AMERGE) 2.5 mg tablet Take 1 tablet by mouth as needed. ? chlorzoxazone (PARAFON FORTE DSC) 500 mg tablet Take 1 tablet by mouth four times daily. ? erenumab-aooe 70 mg/mL AutoInjector Inject 140 mg subcutaneously once every month. ? Dihydroergotamine Mesylate 0.5 mg/pump act. (4 mg/mL) nasal spray Use 1 Sutter in the nose as needed. Use in one nostril as directed. No more than 4 sprays in one hour ? albuterol HFA (PROAIR HFA) 90 mcg/actuation inhaler Inhale 2 Puffs as instructed every 4 hours as needed for Wheezing/Shortness of Breath. ? rizatriptan (MAXALT) 10 mg tablet Take 1 tablet by mouth as needed. AT ONSET OF HEADACHE. MAY REPEAT AFTER 2 HOURS. DO NOT EXCEED 30 MG PER DAY. ? SUMAtriptan (IMITREX) 100 mg tablet Take 1 tablet by mouth as needed. ? eletriptan (RELPAX) 40 mg tablet Take 1 tablet by mouth as needed. may repeat in 2 hours if necessary ? venlafaxine ER (EFFEXOR XR) 75 mg 24 hr capsule Take 1 capsule by mouth once daily. ? propranolol ER (INDERAL LA) 60 mg 24 hr capsule Take 1 capsule by mouth twice daily. ? Leg Brace (KNEE SUPPORT BRACE) misc With patellar support (S83.002A) Patellar subluxation ? ibuprofen (MOTRIN) 600 mg tablet Take 1 tablet by mouth every 6 hours as needed. FOR PAIN. ? gabapentin (NEURONTIN) 100 mg capsule Take 2 capsules by mouth three times daily as needed for up to 30 days. 90 day supply ? No current facility-administered medications for this visit. ? Allergies As of Date: 04/17/2019 Allergen Noted Reaction COMPAZINE [PROCHLORPERAZINE EDISY*07/20/2018 Other: See Comments REGLAN [METOCLOPRAMIDE HCL] 07/20/2018 Other: See Comments SEASONAL ALLERGIES 10/15/2010 Other: See Comments ? Fully Assessed 04/17/2019 ? ? REVIEW OF SYSTEMS Abdomen: + intermittent pain Bladder: no dysuria .. Expanded ROS: GENERAL: No weight loss, malaise or fevers Allergies and current medication updated:Yes ? EXAM: BP 118/82 Pulse 92 Resp 16 Ht 5' 5 (1.65m) Wt 220 lb (99.8kg) LMP 03/30/2019 BMI 36.61 kg/(m^2). ? GENERAL: pleasant, female in no apparent distress HEENT: Normocephalic, atraumatic and no lesions NECK: Supple and full range of motion DERMATOLOGY: Normal, without lesions, non-icteric and non-hirsute NEURO: alert and oriented x3,exam grossly non-focal ? ASSESSMENT AND PLAN: Encounter Diagnosis ? ? ICD-10-CM ? 1. Abnormal uterine bleeding (AUB) N93.9 ? 2. Endometrial polyp N84.0 ? 3. Pelvic pain in female R10.2 ? 4. Dysmenorrhea N94.6 ? ? 5. Pt has been counseled on risks/benefits and alternatives of surgery including but not limited to anesthesia, bleeding, infection, injury to pelvic structures including bowel, bladder, and vessels. Pt wishes to proceed with surgery at this time.\ 6. Reviewed causes of pelvic pain. Discussed with the patient that pelvic pain could be uterine, ovarian, tubal, bladder, bowel versus other sources. Discussed with the patient possible option for diagnostic laparoscopy patient declines at this time. If her pain persists would recommend a diagnostic laparoscopy with removal of the tubes if indicated. CT scan report shows bilateral Filshie clips but the left Filshie clip in a questionable location. I discussed the patient this can be a normal finding typically Filshie clips once the tube necrosis and separates and falls inTo the Pelvic Cavity. This Should Not Be a Source of Any Pain. ? MOTRIN for post op pain given ? ? Brenda Harper MD ?8:48 AM
[2019-05-03] VITALS (9 sets, daily range): BP systolic 84–118; BP diastolic 51–73; PULSE 60–71; RESP 15–16; TEMP 36.5–36.8; O2SAT 94–100; BMI 36.6
[2019-05-03 07:41] LABS: Internal QC Validated? YES +Cl - CLEAR BKGD; Pregnancy, Urine Negative Negative
[2019-05-03] MEDS: Lactated Ringers 1,000 ML 100 ML IV ×2 (07:42→11:23)
--- NOTE | 2019-05-03 08:45 | EMB_PTH ---
PATIENT: MARIA ELENA LUA LOC: [facility] U#:[id number] AGE/SX: 28/F ROOM: RE05/03/[address]: Dr. Brenda Harper, MDDOB: 1990 BED: DIS: 05/03/2019 SPEC #: [id number] RECD: 05/03/19 10:11 STATUS: GLENIS BANG #: [id number] MICHELLE: 05/03/19 08:[address]: Brenda Harper DEPT: SURGICAL PATHOLOGY RECD BY: Isaac King ENTERED: 05/03/19 12:49 SP TYPE: ENDOM BX/C RAYHR DR: Dr. Vishnu Alejo III, MD Tissues: Endometrium, NOS Procedures: Surgery Specimen Level IV HEADER OPERATION: Hysteroscopy, D & C Symphion, polypectomy PRE-OP DIAGNOSIS: Abnormal uterine bleeding, endometrial polyp, pelvic pain, dysmenorrhea TISSUE SUBMITTED: Endometrial curettings and polyp MICROSCOPIC DIAGNOSIS Endometrial curettings and polyp: Secretory endometrium. Fragments of superficial myometrium. BINTA:anurag 05/04/19 MICROSCOPIC DESCRIPTION Slides are reviewed. GROSS DESCRIPTION Received in fixative is one container labeled with the patient's name and designated endometrial curettings and polyp. The specimen consists of multiple irregular fragments of cisse-pink soft tissue that in aggregate measure 5 x 3 x 0.3 cm. The entire specimen is submitted in two cassettes. / BINTA:anurag 05/03/19 TC:4 CPT: 47787
--- NOTE | 2019-05-03 09:17 | PCM.OPRPT ---
Report of Operation Date of Procedure: 05/03/19 Pre-Operative Diagnosis: AUB, endometrial polyp Post-Operative Diagnosis: same Surgery/Procedure Performed:: hysteroscopy, D&C, Polypectomy with symphion Description of Surgical Findings:: Small polyp located on anterior aspect of uterus both tubal ostia visualized. Type of Anesthesia:: MAC Specimen's removed: endometrial curettings, Endometrial polyp Drains: none Estimated Blood Loss (mL): 5 Fluids Replaced: 500 Description of Procedure: nformed consent was obtained the patient was taken the operating room she was placed in supine position. She was given anesthesia. She was then placed in the [facility] where she was prepped and draped in the normal sterile fashion. bladder drained- 25cc. At this time the weighted speculum was placed in the posterior fornix of vagina. Single-tooth tenaculum was used to gently grasp the anterior lip the cervix. At this time the uterine cavity was sounded to approximately 9cm. Gentle dilatation was performed once adequate dilatation of the cervix was achieved the hysteroscope using normal saline as a distention medium was placed. Small polyp on anterior aspect. Otherwise no gross abnormalities. Tubal ostia visualized. Symphion resector was used to remove the polyp under direct visualization and also perform an endometrial curettage. At this time procedure was deemed complete successful. There were no complications. Endometrial tissue and endometrial polyp will be sent together to pathology. Fluid deficit 350 cc. Vaginal sweep performed negative. Good hemostasis appreciated. I anticipate a normal postoperative course Grafts/Implants Used: none - Complications none - Admit VTE Documentation VTE Present on Admission: Yes VTE Mechan Device Prophylaxis: SCD's VTE Pharm Prophylaxis ordered?: No
--- NOTE | 2019-05-03 09:22 | DCINST_ITS ---
Discharge Diet: No Restrictions Discharge Activity: Return to Normal Activity, May Shower, May Take a Tub Bath - in 2 weeks. Allergies/Adverse Reactions: Allergies metoclopramide [From Reglan] Adverse Reaction (Verified 05/03/19 07:27) Other anxious prochlorperazine [From Compazine] Adverse Reaction (Verified 05/03/19 07:27) Other anxious Medications to take at Discharge Gabapentin 300 mg PO BID 10/04/16 Albuterol IH (ProAir) [Proair Hfa] 1 - 2 puff INHALATION Q6H PRN PRN 03/22/18 Eletriptan Hydrobromide [Relpax] 40 mg PO .X1 PRN 03/22/18 Erenumab-Aooe [Aimovig Autoinjector] 140 mg SQ QMONTH 03/22/18 Naratriptan HCl [Amerge] 2.5 mg PO PRN PRN 03/22/18 Ondansetron [Zofran] 8 mg PO Q12H PRN PRN 03/22/18 Rizatriptan Benzoate [Maxalt] 10 mg PO .X1 PRN 03/22/18 Sumatriptan Succinate [Imitrex] 100 mg PO .X1 PRN 03/22/18 Acetaminophen Liquid [Tylenol Liquid] 500 mg PO Q4H PRN PRN udc 03/24/18 Ibuprofen [Motrin] 800 mg PO TID PRN PRN 02/28/19 Amitriptyline HCl [Elavil] 10 mg PO QHS 04/30/19 Propranolol HCl [Inderal LA] 60 mg PO BID 04/30/19 Venlafaxine HCl [Effexor] 75 mg PO DAILY 04/30/19 Primary Care Physician: Vishnu Alejo III, MD [Primary Care Provider] - Test Results: Test results from this visit will be discussed in further detail at your follow- up appointment, if applicable.
[2019-05-03] MEDS: HYDROcodone Bitartrate/Apap 5/325 Tablet PO (11:22)
== END 2019-05-03 12:11 | disposition home or self-care (01) ==
LOC: SDC 07:17 → AC 07:19
PROVIDERS: Family Provider Family Medicine; PCP Family Medicine; Referring Provider Obstetrics & Gynecology; Visit Provider Obstetrics & Gynecology
PROC: 0UB98ZZ Excision of Uterus, Via Natural or Artificial Opening Endoscopic (ICD-10-PCS; CPT 58558; principal; 2019-05-03 08:30)
DX: N93.9 Abnormal uterine and vaginal bleeding, unspecified (principal); N84.0 Polyp of corpus uteri; N94.6 Dysmenorrhea, unspecified; J45.909 Unspecified asthma, uncomplicated; G43.909 Migraine, unspecified, not intractable, without status migrainosus; F41.9 Anxiety disorder, unspecified; R01.1 Cardiac murmur, unspecified; Z79.899 Other long term (current) drug therapy
CPT/HCPCS: 00952; 58558; 81025; 88305; J7120; J2405

== ENCOUNTER 2019-05-31 08:27 | Day surgery (SDC) | payer OTHER, SELFPAY ==
[2019-05-03 07:33] VITALS: BMI 36.6
--- NOTE | 2019-05-28 11:48 | PCM.HP.BLA ---
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 Patient reports that since prior to her hysteroscopy, D&C she has had this left lower quadrant pain that is intermittent. Patient states on a daily basis the pain is approximately 4 out of 10 on a pain scale but it can be exacerbated to where she has to miss work or can't get out of bed. Patient states that she can't pinpoint what makes the pain worse does report that a heating pad and [id number] NSAIDs help the pain. Patient states she does have more pain when straining to urinate and straining for bowel movement. The pain is not relieved when she does have a bowel movement. Patient states that she does have some nausea with this. Patient denies any vomiting or fevers. Patient states that sex is very painful as well. Patient has had ultrasounds and CAT scans with inconclusive results for why she is having pain. ? PAST MEDICAL HISTORY PAST MEDICAL HISTORY Diagnosis Date ? Abnormal Pap smear of cervix ? ? ASCUS ? Allergic rhinitis, cause unspecified ? ? Anxiety 03/17/2010 ? buspar ? Asthma ? ? Concussion 2007 ? Dysmenorrhea ? ? Excessive or frequent menstruation ? ? Heavy periods ? Mental disorder ? ? Migraine, unspecified, with intractable migraine, so stated, without mention of status migrainosus ? ? Migraine ? Ovarian cyst ? ? resolved ? Pain in joint, pelvic region and thigh 07/29/2014 ? 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 PID (acute pelvic inflammatory disease) 2012 ? 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 Post depression 12/31/2015 ? Thyroid disease ? ? goiter ? Trauma ? ? PAST SURGICAL HISTORY PAST SURGICAL HISTORY Procedure Laterality Date ? EGD W/O OR W/BRUSH/WASH ? 03/21/13 ? EGD ? KNEE 1 OP 2 VIEWS ? ? ? KNEE ARTHROSCOPY/SURGERY ? 11/2011 ? left ? LAP CHOLECYSTECT/CHOLANGIOGRAPHY ? 02-14-13 ? TONSILLECTOMY HX ? 03/2018 ? [facility]-Dr. James ? TUBAL LIGATION HX ? 8/30/16 ? filshie clips ? FAMILY HISTORY FAMILY HISTORY Problem Relation Age of Onset ? Cancer Mother ? ? thyroid, skin. - precancerous cervical cells on pap smear ? Hypertension Mother ? ? Breast Cancer Maternal Grandmother ? ? Hypertension Maternal Grandmother ? ? Asthma Maternal Grandmother ? ? Heart Maternal Grandfather ? ? Ischemic Heart Disease Maternal Grandfather ? ? stomach, ovarian. ? Ovarian cancer Other ? ? Great Grandmother ? SOCIAL HISTORY Social History ? Tobacco Use ? Smoking status: Never Smoker ? Smokeless tobacco: Never Used Substance Use Topics ? Alcohol use: Yes ? ? Comment: 1 nightout every 2 months- 2-3 drinks-None since ? Drug use: No ? CURRENT MEDICATIONS Current Outpatient Medications Medication Sig ? amitriptyline (ELAVIL) 10 mg tablet Take 1 tablet by mouth daily at bedtime. ? ibuprofen (MOTRIN) 600 mg tablet Take 1 tablet by mouth every 6 hours as needed. FOR PAIN. ? cyclobenzaprine (FLEXERIL) 10 mg tablet Take 0.5-1 tablets by mouth three times daily as needed. ? ondansetron (ZOFRAN) 4 mg tablet Take 1 tablet by mouth once daily as needed (for nausea.). ? naratriptan (AMERGE) 2.5 mg tablet Take 1 tablet by mouth as needed. ? chlorzoxazone (PARAFON FORTE DSC) 500 mg tablet Take 1 tablet by mouth four times daily. ? erenumab-aooe 70 mg/mL AutoInjector Inject 140 mg subcutaneously once every month. ? Dihydroergotamine Mesylate 0.5 mg/pump act. (4 mg/mL) nasal spray Use 1 [place] in the nose as needed. Use in one nostril as directed. No more than 4 sprays in one hour ? albuterol HFA (PROAIR HFA) 90 mcg/actuation inhaler Inhale 2 Puffs as instructed every 4 hours as needed for Wheezing/Shortness of Breath. ? rizatriptan (MAXALT) 10 mg tablet Take 1 tablet by mouth as needed. AT ONSET OF HEADACHE. MAY REPEAT AFTER 2 HOURS. DO NOT EXCEED 30 MG PER DAY. ? SUMAtriptan (IMITREX) 100 mg tablet Take 1 tablet by mouth as needed. ? eletriptan (RELPAX) 40 mg tablet Take 1 tablet by mouth as needed. may repeat in 2 hours if necessary ? venlafaxine ER (EFFEXOR XR) 75 mg 24 hr capsule Take 1 capsule by mouth once daily. ? propranolol ER (INDERAL LA) 60 mg 24 hr capsule Take 1 capsule by mouth twice daily. ? gabapentin (NEURONTIN) 100 mg capsule Take 2 capsules by mouth three times daily as needed for up to 30 days. 90 day supply ? Leg Brace (KNEE SUPPORT BRACE) [facility] With patellar support (S83.002A) Patellar subluxation ? No current facility-administered medications for this visit. ? Allergies As of Date: 05/22/2019 Allergen Noted Reaction COMPAZINE [PROCHLORPERAZINE EDISY*07/20/2018 Other: See Comments REGLAN [METOCLOPRAMIDE HCL] 07/20/2018 Other: See Comments SEASONAL ALLERGIES 10/15/2010 Other: See Comments ? Fully Assessed 05/22/2019 ? ? REVIEW OF SYSTEMS Abdomen: see HPI- denies diarrhea, constipation Bladder: No dysuria, gross hematuria, urinary frequency, urinary urgency, or incontinence.. Expanded ROS: GENERAL: Negative for fever Allergies and current medication updated:Yes ? EXAM: BP 110/72 Wt 218 lb (98.9kg) ? GENERAL: pleasant, female in no apparent distress HEENT: Normocephalic and atraumatic NECK: Supple and full range of motion DERMATOLOGY: Normal, without lesions, non-icteric and non-hirsute BREAST: deferred NEURO: alert and oriented x3,exam grossly non-focal EXTREMITIES: normal ? ASSESSMENT AND PLAN: Left lower quadrant pelvic pain ? 1) reviewed causes of pelvic pain 2) discussed expectant management versus surgical management 3) reviewed previous ultrasound and CAT scan 4) patient would like to proceed with a diagnostic laparoscopy and a bilateral salpingectomy. Patient has had a history of a tubal ligation with Filshie clips. Patient once tubes removed as this could be a source of her discomfort. 5) Pt has been counseled on risks/benefits and alternatives of surgery including but not limited to anesthesia, bleeding, infection, injury to pelvic structures including bowel, bladder, ureters and vessels. Pt wishes to proceed with surgery at this time. 6) I reviewed with patient that surgery may not cure her pelvic pain. I offered her pelvic floor physical therapy as well as pelvic pain clinic.. 7) I discussed with the patient that if on diagnostic laparoscopy she is found to have significant endometriosis procedure would be abandoned and I would send her to a minimally invasive gynecologic surgeon for resection of endometriosis if I felt that it was necessary. ? This note was partially generated using Venuetastic voice recognition system. ? Brenda Harper MD ?
[2019-05-31] VITALS (9 sets, daily range): BP systolic 95–143; BP diastolic 48–87; PULSE 58–79; RESP 16–18; TEMP 36.1–36.6; O2SAT 85–99; BMI 36.1
--- NOTE | 2019-05-31 | FALS_PTH ---
PATIENT: MARIA ELENA LUA LOC: [facility] U#:[id number] AGE/SX: 28/F ROOM: RE05/31/[address]: Dr. Brenda Harper, MDDOB: 1990 BED: DIS: 05/31/2019 SPEC #: [id number] RECD: 05/31/19 13:35 STATUS: GLENIS BANG #: [id number] MICHELLE: 05/31/19 00:[address]: Brenda Harper DEPT: SURGICAL PATHOLOGY RECD BY: Isaac King ENTERED: 05/31/19 13:35 SP TYPE: FALL TUBES OTHR DR: Dr. Vishnu Alejo III, MD Tissues: Fallopian tube Procedures: Surgery Specimen Level II Surgery Specimen Level IV HEADER OPERATION: Diagnostic laparoscopy, bilateral salpingectomy PRE-OP DIAGNOSIS: Left lower quadrant pelvic pain TISSUE SUBMITTED: Bilateral fallopian tubes MICROSCOPIC DIAGNOSIS Right and left fallopian tubes, bilateral salpingectomies: Right fallopian tube - complete cross-section of fallopian tube with benign paratubal cyst. Left fallopian tube - no pathologic change. AM:anurag 06/01/19 MICROSCOPIC DESCRIPTION Slides are reviewed. GROSS DESCRIPTION Received is one container labeled with the patient's name and designated bilateral fallopian tubes. The specimen consists of bilateral fallopian tubes including fimbrial ends measuring 6.5 cm in length and 0.5 cm in diameter and 5.5 cm in length and 0.5 cm in diameter. Sections do not reveal any mass lesion. The fallopian tubes are not identified as right or left. Sections reveal unremarkable cut surfaces. Electrical Electronics Technician sections are submitted in two cassettes with each cassette containing one fallopian tube. / SJ:anurag 05/31/19 TC:Sarika CPT: 59294, 11889
[2019-05-31 08:49] LABS: Internal QC Validated? YES +Cl - CLEAR BKGD; Pregnancy, Urine Negative Negative
[2019-05-31 08:52] LABS: Hematocrit 40.9 % (37-47); Hemoglobin 12.7 g/dL (12.0-15.0); Mean Corp Hgb Conc 31.1 g/dL (32-36); Mean Corpuscular Hgb 24.5 pg (27.0-32.0); Mean Platelet Vol. 9.7 fl (6.2-12.0); Platelet Count 478 K/mm3 (150-450); RBC Distribution Width CV 14.4 % (11.6-14.6); RBC Distribution Width SD 41.3 fl (35.1-43.9); Red Blood Count 5.18 M/mm3 (4.2-5.4); White Blood Count 10.6 K/mm3 (4.4-11.0)
[2019-05-31] MEDS: Lactated Ringers 1,000 ML 100 ML IV ×2 (08:57→12:00)
--- NOTE | 2019-05-31 10:34 | PCM.DC.TUB ---
Discharge Diet: No Restrictions, - - Increase fluid intake for 48 hours. Discharge Activity: Return to Normal Activity, May Drive - when you are no longer taking narcotic pain medications., May Shower, May Take a Tub Bath - in 7 days., - - Ambulate often the next week after surgery. Additional Activity Instructions:: Nothing in the vagina for the next 5 days. Call your doctor if your incision/area has: Continuous Slow Oozing, Sudden Increased Bleeding, Increased Pain/ Swelling, Increased Redness, Foul Smelling Discharge, Swelling at the incision site Call your doctor if you observe: Fever of 101 or Higher Cleanse incision/area with: - - you have skin glue over incisions- do not pick off. May let soap and water run over sites and dab dry. Allergies/Adverse Reactions: Allergies metoclopramide [From Reglan] Adverse Reaction (Verified 05/31/19 08:40) Other anxious prochlorperazine [From Compazine] Adverse Reaction (Verified 05/31/19 08:40) Other anxious Medications to take at Discharge Gabapentin 300 mg PO BID 10/04/16 Albuterol IH (ProAir) [Proair Hfa] 1 - 2 puff INHALATION Q6H PRN PRN 03/22/18 Eletriptan Hydrobromide [Relpax] 40 mg PO .X1 PRN 03/22/18 Erenumab-Aooe [Aimovig Autoinjector] 140 mg SQ QMONTH 03/22/18 Naratriptan HCl [Amerge] 2.5 mg PO PRN PRN 03/22/18 Ondansetron [Zofran] 8 mg PO Q12H PRN PRN 03/22/18 Rizatriptan Benzoate [Maxalt] 10 mg PO .X1 PRN 03/22/18 Sumatriptan Succinate [Imitrex] 100 mg PO .X1 PRN 03/22/18 Acetaminophen Liquid [Tylenol Liquid] 500 mg PO Q4H PRN PRN udc 03/24/18 Ibuprofen [Motrin] 800 mg PO TID PRN PRN 02/28/19 Amitriptyline HCl [Elavil] 10 mg PO QHS 04/30/19 Propranolol HCl [Inderal LA] 60 mg PO BID 04/30/19 Venlafaxine HCl [Effexor] 75 mg PO DAILY 04/30/19 Ibuprofen [Motrin] 600 mg PO Q6H PRN PRN #30 tab 05/31/19 Oxycodone HCl/Acetaminophen [Percocet 5/325] 1 tablet PO Q4H PRN PRN 5 Days #10 tablet 05/31/19 The following prescriptions were given: Ibuprofen [Motrin] 600 mg PO Q6H PRN PRN #30 tab PRN Reason: Pain Or Fever Transmission Status: Pending to [facility] Oxycodone HCl/Acetaminophen [Percocet 5/325] 1 tablet PO Q4H PRN PRN 5 Days #10 tablet PRN Reason: Pain Score 6-10/10 Transmission Status: Sent to [facility] Primary Care Physician: Vishnu Aeljo III, MD [Primary Care Provider] - Test Results: Test results from this visit will be discussed in further detail at your follow-up appointment, if applicable. Please Follow Up With: Brenda Harper MD When: as scheduled
--- NOTE | 2019-05-31 11:12 | PCM.OPRPT ---
Report of Operation Date of Procedure: 05/31/19 Pre-Operative Diagnosis: pelvic pain, previous BTL with filshie clips Post-Operative Diagnosis: same Surgery/Procedure Performed:: diagnostic laparoscopy, Bilateral salpingectomy Description of Surgical Findings:: Bilateral tubal ligation filshie clips present, left was loosely adherent to round ligament but removed easily with traction and grasper Type of Anesthesia:: General Special Medications: marcaine Specimen's removed: bilateral fallopian tubes and filshie clips Drains: none Estimated Blood Loss (mL): <5cc Fluids Replaced: 900 Description of Procedure: After informed consent was obtained patient was taken to the operating room she was placed in supine position she was given anesthesia. She was then placed in [facility] and she was prepped and draped in normal sterile fashion. Bladder was drained prior to the start of procedure. At this time attention was turned to the vaginal portion where weighted speculum placed at posterior fornix vagina single-tooth tenaculum was used to gently grasp the internal the cervix. uterus was gently sounded to approximately cm. Uterine manipulator was placed without difficulty. Legs then placed in parallel with the abdomen the tenaculum and the weighted speculum were removed. 2 towel clamps were placed at level of umbilicus. Marcaine was injected infraumbilical and a small incision was made. The 5 mm trocar was placed under direct visualization. CO2 gas was used to insufflate the intra-abdominal cavity. Upon inspection no gross abnormalities appreciated-the left Filshie clip was lightly adherent to the left round ligament however was not encapsulated in it nor was it around it. The Filshie clip was easily removed with gentle traction using a grasper. There were no endometriotic implants appreciated. There were no pelvic adhesions. Upper abdomen was appreciated and no abnormalities again were noted. Appendix appeared normal. The uterus tubes and ovaries appeared to be normal. At this time then the LLQ and RLQ ports were placed First Marcaine was injected and small incision was made a knife and the 5 mm trocars were placed. At this time then tubes were traced back to the fimbriated ends. Ligasure was used to coagulate and ligate along metrosalpinx bilaterally until tubes removed completely. Good hemostasis was appreciated. At this time procedure was deemed complete successful. The gas was desufflated on from the intra-abdominal cavity. The trochars were removed. Skin was closed using 4-0 Monocryl in a subcutaneous fashion. Dermabond glue was placed. Instrument lap and needle counts were correct ?2. The uterine manipulator was removed. Vaginal sweep was performed it was negative. There were no complications anticipated normal postoperative course for this patient. Grafts/Implants Used: none - Complications none - Admit VTE Documentation VTE Present on Admission: Yes VTE Mechan Device Prophylaxis: SCD's VTE Pharm Prophylaxis ordered?: No
[2019-05-31] MEDS: Bupivacaine Mpf 0.5% 30 ML VIAL (11:13)
[2019-05-31] MEDS: HYDROcodone Bitartrate/Apap 5/325 Tablet PO (12:55)
== END 2019-05-31 13:55 | disposition home or self-care (01) ==
LOC: SDC 08:28 → AC 08:29
PROVIDERS: Family Provider Family Medicine; PCP Family Medicine; Referring Provider Obstetrics & Gynecology; Visit Provider Obstetrics & Gynecology
PROC: (CPT 49320; principal; 2019-05-31 10:00)
DX: N83.8 Other noninflammatory disorders of ovary, fallopian tube and broad ligament (principal); F41.9 Anxiety disorder, unspecified; J45.909 Unspecified asthma, uncomplicated; E04.9 Nontoxic goiter, unspecified; G43.909 Migraine, unspecified, not intractable, without status migrainosus; Z79.51 Long term (current) use of inhaled steroids; Z79.899 Other long term (current) drug therapy
CPT/HCPCS: 00840; 58661; 36415; 81025; 85027; 88302; 88305; J7120; J2405

== ENCOUNTER 2019-10-16 16:49 | Emergency (ER) | payer OTHER, SELFPAY ==
[2019-05-31 08:48] VITALS: BMI 36.1
[2019-10-16 16:50] VITALS: BP 164/114; PULSE 89; RESP 15; TEMP 36.8; O2SAT 96; BMI 39.7
--- NOTE | 2019-10-16 17:02 | CT_ITS ---
STUDY: CT BRAIN WITHOUT CONTRAST REASON FOR EXAM: Female, 29 years old. Headache. Hypertension. RADIATION DOSAGE (If Supplied By Facility): CTDIvol = ( 44.99 ) mGy, DLP = ( 745.49 ) mGycm TECHNIQUE: Transaxial CT imaging of the brain was performed without administration of intravenous contrast material. Individualized dose optimization techniques were used for this CT. COMPARISON: 10/18/2018 FINDINGS: There is no acute bleed or infarct. There are normal white matter tracts. The ventricles are normal in configuration. There is no hydrocephalus. The visualized paranasal sinuses are clear. The mastoid air cells are well aerated. There is no skull fracture. CT/Brain/Head without Contrast IMPRESSION: No acute intracranial abnormality. Electronically Signed: Keenan Marsh, at 18:06 EDT Tel , Service support ,
--- NOTE | 2019-10-16 17:07 | ED.VIS.GEN ---
History of Present Illness Chief Complaint: Hypertension Detail of Chief Complaint: Severe headache and hypertension Informant: Patient, PCP Onset: Yesterday Context: Sudden Onset Timing: Continuous Quality: Throbbing Location: Right jaw radiating to right temporal parietal then to left Current Severity: Severe Maximum Severity: Severe Worsened by: Light Relieved by: Nothing Associated Symptoms: Nausea without vomiting and intermittent binocular blurred vision Narrative: Patient is a 29-year-old woman with history of migraine headaches who presents with abrupt onset of headache that started on the right side and radiates to the left side as previously described. She is status post bilateral tubal ligation. She does not have history hypertension. Blood pressure reading May 2019 was 102/70 and blood pressure reading on June 18, 2019 was 110/70. Patient reports numerous elevated blood pressure since yesterday. Blood pressure ranging from 170s over 110. Blood pressure reading at PCPs office was elevated. She denies history of trauma. She denies any alleviating, precipitating or exacerbating factors. She denies any URI symptoms. She denies neck pain or neck stiffness. She denies dysphonia or dysphasia. She denies cardiac respiratory symptoms. Only GI symptom is nausea. She denies sensory, motor abnormality and denies problems with balance. She does report dizziness which she describes as a spinning sensation for the past 24 hours. Nothing alleviates or exacerbates her dizziness. Prior similar symptoms: No Recent Illness/Hospitalization: No - Past Medical History (1) Migraine headache Status: Acute Past Medical History - Allergies and Home Meds Allergies/Adverse Reactions: Allergies metoclopramide [From Reglan] Adverse Reaction (Verified 10/16/19 16:49) Other anxious prochlorperazine [From Compazine] Adverse Reaction (Verified 10/16/19 16:49) Other anxious Primary Care Physician: Vishnu Alejo III, MD [Primary Care Provider] - Prior records reviewed: Yes Surgical History: - - Bilateral tubal ligation Lives: Spouse/ Significant Other Smoking Status: Never smoker Alcohol: None Drugs: None Review of Systems General: Denies: Chills, Malaise, Subjective Eyes: Denies: Visual changes - bilaterally, Blurred Vision - bilaterally ENT: Denies: Rhinorrhea, Sore throat Cardiovascular: Denies: Chest pain, Palpitations Respiratory: Denies: Dyspnea, Cough, Dyspnea on exertion Gastrointestinal: Reports: Nausea. Denies: Abdominal pain, Vomiting, Diarrhea, Constipation, Melena, Hematochezia, -, - Genitourinary: Denies: Dysuria, Hematuria, Frequency Musculoskeletal: Denies: Myalgias, Arthralgias, Neck pain, Back pain, Swelling, Extremity Pain, -, - Skin: Denies: Rash, Wounds Neurological: Reports: Headache. Denies: Weakness, Parasthesia, Numbness Psych: Denies: Depression Hematologic: Denies: Easy bruising, Easy bleeding Allergy: Denies: Uticaria, Swelling of the mouth Physical Exam Vital Signs/Narrative: Vital Signs Temp Pulse Resp BP Pulse Ox 10/16/19 16:50 98.2 F 89 15 164/114 H 96 Inital Vital Signs reviewed: Yes General: Well nourished, Well developed, Obese, No Acute Distress Head: Normocephalic, Atraumatic Eyes: Perrl, EOMI, - - Anoscopic exam does not reveal papilledema and the cup-to-disc ratio was normal. There is no AV nicking noted.. Negative for: Pale conjunctiva, Scleral icterus ENT: Moist mucous membranes, No rhinorrhea, TM's clear, - - Trachea is midline.. Negative for: Nasal congestion, Sinus tenderness Neck: Supple, Nontender, No lymphadenopathy, No JVD, - - There is no meningeal findings Cardiovascular: Regular rate, Regular rhythm, No murmurs, Normal S1, Normal S2 Respiratory: No distress, CTA bilaterally, Chest nontender Abdomen: Soft, Nontender, Nondistended, Normal bowel sounds Back: Nontender, Normal Inspection. Negative for: CVA tenderness Extremities: Nontender, No edema Skin: Normal color, No rash Neurological: Alert, Oriented x3, Cranial nerves II-XII grossly intact, Normal Strength, Normal Sensation, Normal DTR, Normal Gait, - - Cerebellar testing is normal. Psychological: Normal affect, Normal Mood Diagnostic/Tx/Re-eval Impressions Brain CT 10/16/19 17:02 IMPRESSION: No acute intracranial abnormality. Electronically Signed: Keenan Marsh, at 18:06 EDT Tel , Service support , 10/16/19 17:02 Brain/Head without Contrast [CT] Stat Laboratory Results 10/16/19 10/16/19 10/16/19 17:20 17:20 17:20 WBC 12.1 H RBC 5.11 Hgb 13.2 Hct 42.6 MCV 83.4 MCH 25.8 L MCHC 31.0 L RDW Std Deviation 42.8 RDW Coeff of Brenda 13.9 Plt Count 600 H MPV 10.7 Immature Gran % (Auto) 0.400 Neut % (Auto) 61.3 Lymph % (Auto) 27.4 [place] % (Auto) 5.9 Eos % (Auto) 4.3 Baso % (Auto) 0.7 Absolute Neuts (auto) 7.4 Absolute Lymphs (auto) 3.30 Nucleated RBC % 0 Sodium 140 Potassium 4.5 Chloride 107 Carbon Dioxide 26.0 Anion Gap 7 BUN 10 Creatinine 0.68 Estim Creat Clear Calc 105.41 Est GFR (MDRD) Af Amer 131 Est GFR (MDRD) Non-Af 108 BUN/Creatinine Ratio 14.7 Glucose 88 Calcium 9.4 Urine Color Yellow Urine Clarity Clear Urine pH 5.0 Ur Specific [place] 1.020 Urine Protein Negative Urine Glucose (UA) Normal Urine Ketones Negative Urine Occult Blood 10 H Urine Nitrite Negative Urine Bilirubin Negative Urine Urobilinogen Normal Ur Leukocyte Esterase 100 H Urine RBC 0 SEEN Urine WBC 0-5 SEEN Ur Squamous Epith Cells 0-5 SEEN Urine Bacteria RARE Urine Mucus 0 SEEN Is no evidence of endorgan injury. CT of the head was interpreted as negative by radiologist. Most recent blood pressure without intervention is 140/103. - Medical Decision Making With abrupt onset of headache and elevated blood pressure will obtain a CT of the head to rule out for intracranial bleed and specifically subarachnoid hemorrhage. Clinically do not believe patient has this since she does not appear in any distress and has no meningeal findings. Her neuro exam is normal. Blood work was obtained to assess for endorgan injury. This would be highly unlikely since she had blood pressure readings that were normal earlier this year. The elevated blood pressure may be secondary to the headache. She has a dystonic reaction to Reglan and Compazine, akathisia. Because there is concern for hemorrhage she was not treated with Toradol. She did receive Zofran for her nausea. T of the head was reviewed by me. There is no evidence of intracranial pathology i.e. stroke, hemorrhage or sinusitis. Awaiting formal read by radiologist. Most recent blood pressure 136/84. Since there is no evidence of endorgan injury and no evidence of hypertension treatment was not initiated. Furthermore her blood pressure improved as her headache diminished. ED Disposition - Plan for ED Patient: Disposition: Home or Assisted Living Diagnosis: Migraine headache without aura, Hypertension Instructions: ED, Migraine (Classical), ED HBP No Tx Referrals: Vishnu Alejo III, MD [Primary Care Provider] - 1 Week
[2019-10-16 17:13] VITALS: BP 140/103; PULSE 64; RESP 16; O2SAT 99
[2019-10-16] MEDS: Ondansetron 4 MG/2 ML Vial IV (17:33)
[2019-10-16 17:46] LABS: Mucous, Urine 0 SEEN /hpf (<or=2+); Red Blood Cells-Urine 0 SEEN /hpf (0-5)
[2019-10-16 17:49] LABS: Color, Urine Yellow (Yellow); Glucose, Dipstick Normal (Normal); Ketone-Dipstick Negative (Negative); Leukocyte Esterase-Dipstick 100 /ul (Negative); Nitrite-Dipstick Negative (Negative); Occult Blood-Urine 10 /ul (Negative); Protein-Dipstick Negative (Negative); Urine Bilirubin Dipstick Negative (Negative); Urine Clarity Clear (Clear); Urine Urobilinogen Normal (Normal)
[2019-10-16 17:51] LABS: Absolute Neutrophil Count 7.4 X10^3/uL (2.0-7.7); Basophil# 0.08 X10^3/uL; Basophil% 0.7 % (0-1); Eosinophil# 0.52 X10^3/uL; Eosinophils% 4.3 % (0-5); Hematocrit 42.6 % (37-47); Hemoglobin 13.2 g/dL (12.0-15.0); Lymphocyte % 27.4 % (19-41); Mean Corpuscular Hgb 25.8 pg (27.0-32.0); Mean Corpuscular Volume 83.4 fL (81-99); Mean Platelet Vol. 10.7 fl (6.2-12.0); Monocyte# 0.71 X10^3/uL; Monocyte% 5.9 % (0-10); NRBC Flagged by Analyzer 0 % (0-5); Neutrophil # 7.39 X10^3/uL (2.7-7.7); Neutrophil % 61.3 % (47-70); Platelet Count 600 K/mm3 (150-450); RBC Distribution Width CV 13.9 % (11.6-14.6); RBC Distribution Width SD 42.8 fl (35.1-43.9); Red Blood Count 5.11 M/mm3 (4.2-5.4); White Blood Count 12.1 K/mm3 (4.4-11.0)
[2019-10-16] MEDS: Ketorolac 15 MG/ML Vial IV (17:57)
[2019-10-16 18:04] LABS: Bacteria RARE /hpf (None Seen); Squamous Epithelial Cells - UA 0-5 SEEN /hpf (5-10); White Blood Cells 0-5 SEEN /hpf (0-5)
[2019-10-16 18:08] LABS: Anion Gap 7 (5-15); BUN 10 mg/dL (7-18); BUN/Creat Ratio 14.7 RATIO (10-20); Calcium,Total 9.4 mg/dL (8.5-10.1); Chloride 107 mmol/L (98-107); Creatinine, Serum 0.68 mg/dL (0.55-1.02); EST Glomerular Filtration Rate 108 mL/min (>60); Est Glom Filt Rate - Afr Amer 131 mL/min (>60); Estimated Creatinine Clearance 105.41 ml/min; Glucose 88 mg/dL (74-106); Potassium 4.5 mmol/L (3.5-5.1); Sodium Level 140 mmol/L (136-145)
[2019-10-16 18:35] VITALS: BP 136/84; PULSE 70; RESP 16; O2SAT 97
[2019-10-16 18:51] VITALS: RESP 16
== END 2019-10-16 18:52 | disposition home or self-care (01) ==
PROVIDERS: Emergency Provider Emergency Medicine; PCP Family Medicine
DX: G43.009 Migraine without aura, not intractable, without status migrainosus (principal); I10 Essential (primary) hypertension; E66.9 Obesity, unspecified
CPT/HCPCS: 70450; 80048; 81001; 85025; 96374; 96375; 99285; J7030; A4216; J2405

== ENCOUNTER 2019-11-07 10:31 | Emergency (ER) | payer OTHER, SELFPAY ==
[2019-11-07 10:33] VITALS: BP 118/73; PULSE 85; RESP 14; TEMP 35.5; O2SAT 98; BMI 40.2
--- NOTE | 2019-11-07 10:52 | ED.VISSUMM ---
- ER Visit Summary Date of Service: 11/07/19 Chief Complaint: Dental pain History of Present Illness: The patient is a [address] Vishnu Alejo and her dentist is Dr. Kincaid. She reports that she has pain in her right mandibular second premolar that began approximately a month ago. Is an aching pain is 1010 at worst 9-10 currently. Is worsened by eating. Is not sensitive to hot or cold temperatures. It is relieved by NSAIDs, Tylenol, and Middleton. Patient reports that she has been on multiple rounds of antibiotics for this. States that she was on amoxicillin for 4 days. This did not seem to be helping so she was changed to clindamycin. She took 10 days of this and has been off her 4 days before she began it again yesterday morning. She states that she saw her dentist 3 weeks ago and has an appointment in 6 days. Yesterday they called in a prescription for Middleton for her. Patient reports that overnight she had a fever to 101.4 degrees. She has been nausea but has not vomited. She has a headache that is 7-10 in severity. Is a dull aching pain behind her eyes. She does have a history of similar headaches. Physical Examination: Vitals: Stable. Afebrile. Mouth: No trismus. No edema of the floor of the mouth. Pain with percussion of right mandibular second premolar. There is moderate tenderness to palpation and swelling of her face. There is no edema of the floor of her mouth. There is no trismus. No facial erythema. No erythema to the sub-mental region. No swelling to the submental region. General: A&O x 3. NAD. Cardiovascular exam: Regular rate and rhythm, no murmur, rub or gallop. Respiratory exam: Clear to auscultation bilaterally. No wheezes or stridor. Abdominal exam: Soft, nontender, nondistended, normal bowel sounds. No peritoneal signs. Extremity: No clubbing, cyanosis, or edema. Emergency Department Course and Treatment: Patient had an IV placed. She was given clindamycin, morphine, Toradol, and Zofran IV. She is resting more comfortably. Treatment Plan: Patient will be discharged with Zofran. Instructed to continue her clindamycin, ibuprofen, and Middleton. Follow-up with her dentist as soon as possible. We did discuss the signs and symptoms of Ken's angina and she is instructed to return for these. Disposition: To home in improved and stable condition. Impression: 1. Dental abscess. This note was generated with Client[employer] dictation software. It may contain incorrect words, spelling, and punctuation that were not noted in review of the chart prior to signing ED Disposition - Plan for ED Patient: Instructions: Dental Abscess Prescriptions: Ondansetron [Zofran Odt] 4 mg PO Q8H PRN PRN #10 tab PRN Reason: Nausea Prescription Printed Referrals: Dentist,Your [STAFF PHYSICIAN] - As soon as possible
[2019-11-07] MEDS: Ketorolac 30 MG/ML Syringe IV (11:12)
[2019-11-07] MEDS: Ondansetron 4 MG/2 ML Vial IV (11:12)
[2019-11-07] MEDS: Morphine 4 MG/ML Syringe IV (11:12)
[2019-11-07] MEDS: 0.9% Normal Saline 1,000 ML 1000 ML IV (11:30)
[2019-11-07] MEDS: HYDROmorphone 0.5 MG/0.5 ML SYRINGE IV (12:19)
== END 2019-11-07 13:52 | disposition home or self-care (01) ==
PROVIDERS: Emergency Provider Emergency Medicine; PCP Family Medicine
DX: K04.7 Periapical abscess without sinus (principal); I10 Essential (primary) hypertension
CPT/HCPCS: 96365; 96366; 96375; 99284; J7030; A4216; J2405

== ENCOUNTER → 2019-12-11 | Outpatient (CLI) | payer OTHER, SELFPAY | END | disposition home or self-care (01) | LOC: LABSPEC 13:30 | PROVIDERS: PCP Family Medicine; Visit Provider Family Medicine Hospice and Palliative Medicine | DX: Z11.59 Encounter for screening for other viral diseases (principal) | CPT/HCPCS: 87635; 94799; U0003 ==

== ENCOUNTER 2021-03-31 13:52 | Observation (INO) | payer OTHER, SELFPAY ==
[2021-03-31] VITALS (12 sets, daily range): BP systolic 117–160; BP diastolic 65–106; PULSE 70–84; RESP 16–24; TEMP 36.3–37.1; O2SAT 94–97; BMI 37.8; BMI 38.6
[2021-03-31] MEDS: Ipratropium/Albuterol Sulfate 3 ML AMPUL.NEB INHALATION ×2 (14:17→23:17)
--- NOTE | 2021-03-31 14:22 | ED.VIS.DYS ---
HPI History of Present Illness Chief Complaint: Asthma Informant: patient Narrative Narrative: History of asthma worsening wheezing for the past 4 days. Mild cough prior. Using inhaler, symptoms worsening since yesterday. She is at work with symptoms got significant worse. Has asthma not gotten this bad. Chronic headaches intermittently due to migraines. No loss of taste or smell. No vomiting or diarrhea. Nonvaccinated with Covid. Denies sick contacts. Denies history of diabetes. Denies tobacco history. Prior similar symptoms: Yes PFSH PFSH Medical History Migraines Home Medications gabapentin 300 mg PO BID 10/04/16 [History Last Taken 03/24/18] albuterol sulfate [ProAir HFA] 1 - 2 puff INHALATION Q6H PRN PRN 03/22/18 [History Last Taken Unknown] eletriptan [Relpax] 40 mg PO .X1 PRN 03/22/18 [History Last Taken Unknown] erenumab-aooe [Aimovig Autoinjector] 140 mg SQ QMONTH 03/22/18 [History Last Taken Unknown] naratriptan [Amerge] 2.5 mg PO PRN PRN 03/22/18 [History Last Taken Unknown] ondansetron HCl 8 mg PO Q12H PRN PRN 03/22/18 [History Last Taken Unknown] rizatriptan 10 mg PO .X1 PRN 03/22/18 [History Last Taken Unknown] sumatriptan succinate [Imitrex] 100 mg PO .X1 PRN 03/22/18 [History Last Taken Unknown] acetaminophen 500 mg PO Q4H PRN PRN udc 03/24/18 [Rx Last Taken Unknown] ibuprofen 800 mg PO TID PRN PRN 02/28/19 [History Last Taken Unknown] amitriptyline 10 mg PO QHS 04/30/19 [History Last Taken Unknown] propranolol 60 mg PO BID 04/30/19 [History Last Taken 05/03/19 06:00] venlafaxine 75 mg PO DAILY 04/30/19 [History Last Taken 05/03/19 06:00] ondansetron 4 mg PO Q8H PRN PRN #10 tab 11/07/19 [Rx Last Taken Unknown] Allergy/AdvReac Type Severity Reaction Status Date / Time metoclopramide [From Reglan] AdvReac Other Verified 03/31/21 13:55 prochlorperazine AdvReac Other Verified 03/31/21 13:55 [From Compazine] Family History Mother Thyroid cancer Skin cancer Hypertension Surgical History S/P cholecystectomy S/P left knee arthroscopy tubes clamped Social History Smoking Status: Never smoker alcohol intake: never ROS ROS ED Constitutional Constitutional ED: Denies chills, fever(s) or sweats Eyes Eyes: Denies change in vision ENT ENT ED: Denies dysphagia or sore throat Cardiovascular Cardiovascular: Denies chest pain, leg edema, palpitations or racing heartbeat Respiratory/Chest Respiratory/Chest: Reports cough, dyspnea and other Details: Wheezing ; Denies dyspnea on exertion Gastrointestinal Gastrointestinal: Denies abdominal pain, diarrhea, nausea or vomiting Genitourinary Genitourinary ED: Denies dysuria, hematuria or urinary frequency Musculoskeletal Musculoskeletal: Denies back pain, extremity pain or neck pain Integumentary Denies rash or wounds Neurologic Neurologic: Reports headache(s); Denies paresthesias or weakness EXAM Physical Exam Const Vital Signs: 03/31/21 13:54 03/31/21 14:17 03/31/21 14:18 Temperature 97.8 F Temperature Source Temporal Pulse Rate 80 84 Respiratory Rate 24 H 20 H Respiratory Effort Short of Breath Labored Accessory Muscle Use Short of Breath Blood Pressure 160/106 H Blood Pressure Mean 124 Pulse Ox 95 95 Oxygen Delivery Method Room Air Room Air Room Air 03/31/21 14:19 03/31/21 15:19 03/31/21 16:24 Temperature Temperature Source Pulse Rate 78 70 Respiratory Rate 16 Respiratory Effort Blood Pressure Blood Pressure Mean Pulse Ox 96 94 95 Oxygen Delivery Method Room Air Room Air Room Air 03/31/21 16:41 Temperature Temperature Source Pulse Rate 73 Respiratory Rate 20 H Respiratory Effort Blood Pressure Blood Pressure Mean Pulse Ox Oxygen Delivery Method Positive well nourished and well developed Constitutional Narrative: Actively receiving a DuoNeb treatment. No respiratory distress. General Appearance ED: well developed HEENT Reports moist mucous membranes normocephalic and atraumatic Eyes PERRL, EOMs intact bilaterally and conjunctivae normal General Eye ED: Yes normal appearance of both eyes Neck no lymphadenopathy and supple General: Negative for tenderness Chest Wall Chest: Negative for tenderness Resp normal air movement Resp Narrative: Expiratory wheezing bilaterally. No accessory muscle use. Effort and Inspection: symmetric chest movement; Negative for respiratory distress Cardio regular rate, regular rhythm and no murmurs Peripheral Pulses: pulses 2+ throughout GI normal to inspection, nondistended, normoactive bowel sounds and non-tender Palpation: Negative for guarding or rebound tenderness present Back/Spine no CVA tenderness and no thoracic nor lumbar tenderness Extremity normal to inspection General Extremety ED: Negative for edema or tenderness General Extremity: Negative for edema Neuro oriented x3 and no sensory deficits noted Sensorium / Orientation: awake and alert Skin no rashes or lesions noted and no wounds Discharge Plan Triage Chief Complaint: Asthma ED Provider: Yves Shelley Dx/Rx/DC Orders Prescriptions: No Action gabapentin 100 MG capsule 300 mg PO BID RF: 0 sumatriptan succinate [Imitrex] 100 MG tablet 100 mg PO .X1 PRN RF: 0 ondansetron HCl 8 MG tablet 8 mg PO Q12H PRN PRN (Reason: Nausea) RF: 0 rizatriptan 10 MG tablet 10 mg PO .X1 PRN RF: 0 naratriptan [Amerge] 2.5 MG tablet 2.5 mg PO PRN PRN (Reason: Migraine Symptoms) RF: 0 eletriptan [Relpax] 40 MG tablet 40 mg PO .X1 PRN RF: 0 erenumab-aooe [Aimovig Autoinjector] 70 MG/ML Auto.Injct 140 mg SQ QMONTH RF: 0 albuterol sulfate [ProAir HFA] 1 PUFF inhaler 1 - 2 puff inhalation Q6H PRN PRN (Reason: Asthma) RF: 0 acetaminophen 160 MG/5 ML Udc 500 mg PO Q4H PRN PRN (Reason: Mild-Moderate Pain (1-5/10)) RF: 0 ibuprofen 800 MG tablet 800 mg PO TID PRN PRN (Reason: Pain Or Fever) RF: 0 venlafaxine 75 MG tablet 75 mg PO DAILY RF: 0 propranolol 60 MG capsule 60 mg PO BID RF: 0 amitriptyline 10 MG tablet 10 mg PO QHS RF: 0 ondansetron 4 MG tablet 4 mg PO Q8H PRN PRN (Reason: Nausea) Qty: 10 RF: 0 Primary Care Provider: Care Physician,No Primary
[2021-03-31] MEDS: predniSONE 20 MG Tablet 60 MG PO (14:30)
[2021-03-31] MEDS: Albuterol 2.5 MG/3 ML VIAL.NEB. INHALATION ×3 (14:39→16:40)
--- NOTE | 2021-03-31 17:52 | NURSING ---
MED SURG OBS MARTHA ASTHMA EXAC
--- NOTE | 2021-03-31 18:20 | RAD_ITS ---
EXAM: XR CHEST, 1 VIEW CLINICAL INDICATION: cough TECHNIQUE: Frontal view of the chest. This report was created using [employer] report generation technology. COMPARISON: 02/28/2019 FINDINGS: LUNGS AND PLEURAL SPACES: Unremarkable. No consolidation or edema. No pneumothorax. No effusion. HEART: Unremarkable. Cardiac silhouette not enlarged. MEDIASTINUM: Central airways and mediastinal contour are unremarkable. BONES/JOINTS: Unremarkable. SOFT TISSUES: Unremarkable. RAD/Chest 1 View (Portable) IMPRESSION: No radiographic evidence of acute cardiopulmonary disease. Electronically Signed: Franky Fragoso MD at 18:42 EST , Service support ,
[2021-03-31 18:29] LABS: Absolute Lymphocyte Count 1.49 X10^3/uL (0.83-4.51); Absolute Neutrophil Count 14.9 X10^3/uL (2.0-7.7); Anion Gap 7 (5-15); BUN 10 mg/dL (7-18); BUN/Creat Ratio 14.8 RATIO (10-20); Basophil# 0.06 X10^3/uL; Basophil% 0.3 % (0-1); Calcium,Total 9.6 mg/dL (8.5-10.1); Chloride 102 mmol/L (98-107); Creatinine, Serum 0.68 mg/dL (0.55-1.02); EST Glomerular Filtration Rate 108 mL/min (>60); Eosinophil# 0.34 X10^3/uL; Est Glom Filt Rate - Afr Amer 131 mL/min (>60); Estimated Creatinine Clearance 104.46 ml/min; Glucose 127 mg/dL (74-106); Hematocrit 43.3 % (37-47); Hemoglobin 13.9 g/dL (12.0-15.0); Lymphocyte # 1.49 X10^3/ul (0.83-4.51); Lymphocyte % 8.7 % (19-41); Mean Corp Hgb Conc 32.1 g/dL (32-36); Mean Corpuscular Hgb 26.1 pg (27.0-32.0); Mean Corpuscular Volume 81.2 fL (81-99); Mean Platelet Vol. 10.1 fl (6.2-12.0); Monocyte# 0.29 X10^3/uL; Monocyte% 1.7 % (0-10); NRBC Flagged by Analyzer 0 % (0-5); Neutrophil % 86.8 % (47-70); Platelet Count 450 K/mm3 (150-450); Potassium 3.7 mmol/L (3.5-5.1); RBC Distribution Width CV 13.1 % (11.6-14.6); RBC Distribution Width SD 38.2 fl (35.1-43.9); Red Blood Count 5.33 M/mm3 (4.2-5.4); Sodium Level 135 mmol/L (136-145); White Blood Count 17.2 K/mm3 (4.4-11.0)
--- NOTE | 2021-03-31 19:00 | PCM.HP.STD ---
HPI - General General Date of Admission: 03/31/21 HPI Narrative MARIA ELENA LUA, is a 30 F with history of asthma for last 6 years came to ER when she started coughing since 5 days. Her sputum is mainly clear. She also has wheezing, shortness of breath but denies fever or chills. She complained of chest tightness anteriorly. 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 She had asthma exacerbation which improved after outpatient management of prednisone burst therapy. Never been hospitalized for asthma exacerbation. She denies having PFT in the past. She denies a smoking history. In ED, shortness of breath did not get better with prednisone and bronchodilator therefore was admitted. She has history of migraine and hypertension. [facility] Medical History Migraines Tonsillectomy planned Home Medications gabapentin 300 mg PO BID 10/04/16 [History Last Taken 03/24/18] albuterol sulfate [ProAir HFA] 1 - 2 puff INHALATION Q6H PRN PRN 03/22/18 [History Last Taken Unknown] eletriptan [Relpax] 40 mg PO .X1 PRN 03/22/18 [History Last Taken Unknown] erenumab-aooe [Aimovig Autoinjector] 140 mg SQ QMONTH 03/22/18 [History Last Taken Unknown] naratriptan [Amerge] 2.5 mg PO PRN PRN 03/22/18 [History Last Taken Unknown] ondansetron HCl 8 mg PO Q12H PRN PRN 03/22/18 [History Last Taken Unknown] rizatriptan 10 mg PO .X1 PRN 03/22/18 [History Last Taken Unknown] sumatriptan succinate [Imitrex] 100 mg PO .X1 PRN 03/22/18 [History Last Taken Unknown] acetaminophen 500 mg PO Q4H PRN PRN udc 03/24/18 [Rx Last Taken Unknown] ibuprofen 800 mg PO TID PRN PRN 02/28/19 [History Last Taken Unknown] amitriptyline 10 mg PO QHS 04/30/19 [History Last Taken Unknown] propranolol 60 mg PO BID 04/30/19 [History Last Taken 05/03/19 06:00] venlafaxine 75 mg PO DAILY 04/30/19 [History Last Taken 05/03/19 06:00] ondansetron 4 mg PO Q8H PRN PRN #10 tab 11/07/19 [Rx Last Taken Unknown] Allergy/AdvReac Type Severity Reaction Status Date / Time metoclopramide [From Reglan] AdvReac Other Verified 03/31/21 13:55 prochlorperazine AdvReac Other Verified 03/31/21 13:55 [From Compazine] Family History Mother Thyroid cancer Skin cancer Hypertension Surgical History S/P cholecystectomy S/P left knee arthroscopy tubes clamped Social History Smoking Status: Never smoker alcohol intake: never ROS ROS Narrative Constitutional: Shortness of breath. No fever. Morbid obesity. HEENT: Reports systems reviewed and no addt'l complaints, except as documented Respiratory/Chest: As mentioned in HPI Gastrointestinal: Denies coffee ground emesis, hematemesis or vomiting Genitourinary: Denies burning urination or new urinary tract symptoms Musculoskeletal: Denies joint pain or limited range of motion Neurologic: Denies seizure-like activity. History of migraine. skin: No ulcer. No rash Endocrinology: Reports systems reviewed and no addt'l complaints, except as documented Hematologic/Lymphatic: Reports systems reviewed and no addt'l complaints, except as documented Rest 12 ROS are negative except as mentioned in HPI Vital Signs Vital Signs Vital Signs: 03/31/21 13:54 03/31/21 14:17 03/31/21 14:18 Temperature 97.8 F Temperature Source Temporal Pulse Rate 80 84 Respiratory Rate 24 H 20 H Respiratory Effort Short of Breath Labored Accessory Muscle Use Short of Breath Blood Pressure 160/106 H Blood Pressure Mean 124 Pulse Ox 95 95 Oxygen Delivery Method Room Air Room Air Room Air 03/31/21 14:19 03/31/21 15:19 03/31/21 16:24 Temperature Temperature Source Pulse Rate 78 70 Respiratory Rate 16 Respiratory Effort Blood Pressure Blood Pressure Mean Pulse Ox 96 94 95 Oxygen Delivery Method Room Air Room Air Room Air 03/31/21 16:41 Temperature Temperature Source Pulse Rate 73 Respiratory Rate 20 H Respiratory Effort Blood Pressure Blood Pressure Mean Pulse Ox Oxygen Delivery Method Weight Weight: 225 lb 1.471 oz Body Mass Index (BMI) 38.6 Physical Exam Narrative General: Alert, Oriented x3, Cooperative HEENT: Atraumatic, PERRLA, EOMI, Normocephalic Oral: No Gingival or Mucosal Lesions/ Ulcerations Neck: Supple, No JVD, Negative Carotid Bruits Lungs: Air entry diminished in bilateral lungs. Bilateral expiratory wheezing. Cardiovascular: Regular rate, Regular Rhythm, Normal S1, Normal S2, No murmurs Abdomen: Bowel Sounds Present, Soft, Non Tender, Non-Distended : No renal angle tenderness. No suprapubic tenderness. Extremities: No edema, Capillary Refill Less than 3 Seconds Skin: No rashes, No breakdown Musculoskeletal: No Tenderness to Palpation of Joints or Extremities Neurological: Cranial nerves II-XII grossly intact, DTR 2+/4 and Symmetrical, Neuro grossly intact Psych/Mental Status: Normal Affect, Appropriate. Results Lab / Micro Data Result Diagrams: 03/31/21 18:05 03/31/21 18:05 Labs: Laboratory Results - last 24 hr 03/31/21 18:05: WBC 17.2 H, RBC 5.33, Hgb 13.9, Hct 43.3, MCV 81.2, MCH 26.1 L, MCHC 32.1, RDW Std Deviation 38.2, RDW Coeff of Brenda 13.1, Plt Count 450, MPV 10.1, Immature Gran % (Auto) 0.500, Neut % (Auto) 86.8 H, Lymph % (Auto) 8.7 L, Morrow % (Auto) 1.7, Eos % (Auto) 2.0, Baso % (Auto) 0.3, Absolute Neuts (auto) 14.9 H, Absolute Lymphs (auto) 1.49, Nucleated RBC % 0 03/31/21 18:05: Sodium 135 L, Potassium 3.7, Chloride 102, Carbon Dioxide 26.0, Anion Gap 7, BUN 10, Creatinine 0.68, Estim Creat Clear Calc 104.46, Est GFR (MDRD) Af Amer 131, Est GFR (MDRD) Non-Af 108, BUN/Creatinine Ratio 14.8, Glucose 127 H, Calcium 9.6 Micro: Microbiology 03/31/21 14:30 Nasal Secretion SARS-CoV-2 Antigen (Rapid) - Final Radiology Impression Chest X-Ray 03/31/21 18:20 IMPRESSION: No radiographic evidence of acute cardiopulmonary disease. Electronically Signed: Franky Fragoso MD at 18:42 EST , Service support , Assessment & Plan Assessment/Plan (1) Asthma exacerbation: PLAN: 1. Acute asthma exacerbation: The patient is being admitted observation ON MedSur. Exact exacerbating factor unclear. Rapid SARS-CoV-2 antigen negative. Chest x-ray does not show acute cardiopulmonary disease. Respiratory panel and sputum culture ordered. Patient has leukocytosis but does not have fever or chest x-ray finding of pneumonia therefore antibiotic is not indicated. Monitor fever curve. 2. Migraine: Patient is on triptan as needed for severe headache along with amitriptyline. She is also on propranolol unclear whether for hypertension or migraine prophylaxis. 3. Hypertension: On propranolol. Will hold propranolol as she is having asthma exacerbation. Morbid obesity: BMI 38.6 kg/m?. Weight loss counseling done. VT prophylaxis: Moderate risk due to morbid obesity. Lovenox 40 MG subcu daily Charges/Coding Visit Charges OBSV E&M: 57872 Initial observation care L3
[2021-03-31] MEDS: 0.9% Normal Saline 1,000 ML 100 ML IV (22:55)
[2021-03-31] MEDS: guaiFENesin 1,200 MG Tablet 1200 MG PO (23:41)
[2021-03-31] MEDS: Enoxaparin 40 MG/0.4 ML Syringe SC (23:41)
[2021-03-31] MEDS: Amitriptyline 10 MG Tablet PO (23:43)
[2021-04-01] MEDS: MELATONIN 10 MG TABLET PO (01:12)
[2021-04-01] MEDS: Gabapentin 400 MG Capsule PO ×2 (01:12→08:59)
[2021-04-01 07:26] VITALS: PULSE 68; RESP 16; O2SAT 98
[2021-04-01 07:26] LABS: Absolute Lymphocyte Count 1.31 X10^3/uL (0.83-4.51); Absolute Neutrophil Count 14.6 X10^3/uL (2.0-7.7); Basophil# 0.01 X10^3/uL; Basophil% 0.1 % (0-1); Hematocrit 39.9 % (37-47); Lymphocyte # 1.31 X10^3/ul (0.83-4.51); Lymphocyte % 8.1 % (19-41); Mean Corp Hgb Conc 32.6 g/dL (32-36); Mean Corpuscular Hgb 26.7 pg (27.0-32.0); Mean Corpuscular Volume 81.9 fL (81-99); Mean Platelet Vol. 10.3 fl (6.2-12.0); Monocyte# 0.28 X10^3/uL; Monocyte% 1.7 % (0-10); NRBC Flagged by Analyzer 0 % (0-5); Neutrophil # 14.59 X10^3/uL (2.7-7.7); Neutrophil % 89.7 % (47-70); Platelet Count 440 K/mm3 (150-450); RBC Distribution Width SD 38.6 fl (35.1-43.9); Red Blood Count 4.87 M/mm3 (4.2-5.4); White Blood Count 16.3 K/mm3 (4.4-11.0)
[2021-04-01] MEDS: Ipratropium/Albuterol Sulfate 3 ML AMPUL.NEB INHALATION ×2 (07:26→11:43)
[2021-04-01 07:49] LABS: Anion Gap 6 (5-15); BUN 11 mg/dL (7-18); BUN/Creat Ratio 21.1 RATIO (10-20); Calcium,Total 8.8 mg/dL (8.5-10.1); Chloride 108 mmol/L (98-107); Creatinine, Serum 0.52 mg/dL (0.55-1.02); EST Glomerular Filtration Rate 146 mL/min (>60); Est Glom Filt Rate - Afr Amer 177 mL/min (>60); Glucose 153 mg/dL (74-106); Sodium Level 137 mmol/L (136-145)
[2021-04-01 08:54] VITALS: BP 119/64; PULSE 68; RESP 16; TEMP 36.6; O2SAT 94
[2021-04-01] MEDS: guaiFENesin 1,200 MG Tablet 1200 MG PO (08:58)
[2021-04-01] MEDS: Ibuprofen 400 MG Tablet PO ×2 (08:59→14:32)
[2021-04-01] MEDS: Enoxaparin 40 MG/0.4 ML Syringe SC (09:00)
[2021-04-01] MEDS: Venlafaxine XR 75 MG Capsule PO (09:00)
--- NOTE | 2021-04-01 10:09 | PCM.DC ---
Discharge Instructions Diet Discharge Diet: No restrictions Activity Discharge Activity: Return to Normal Activity Dressing / Incision Call your doctor if you observe: Fever of 101 or Higher, Shortness of breath, Dizziness, Fainting spells, Swelling in the ankles, Chest pain and Increased palpitations (irregular heartbeat) Follow Up Care Test Results: Test results from this visit will be discussed in further detail at your follow-up appointment, if applicable. Discharge Plan Admission Admit Date/Time: 03/31/21 19:01 Attending Provider: Mingo Salgado Primary Care Provider: Care Physician,No Primary Instructions Additional Instructions / Restrictions: She is to follow-up with her PCP in 3 to 5 days. I discussed with her that while she is at home for the next 2-3 days to use 4 puffs of her inhaler every 4 hours Discharge Orders/Prescriptions Prescriptions: New prednisone 20 mg tablet 40 mg PO DAILY 7 Days Qty: 14 RF: 0 Continued gabapentin 100 MG capsule 400 mg PO BID RF: 0 sumatriptan succinate [Imitrex] 100 MG tablet 100 mg PO .X1 PRN RF: 0 rizatriptan 10 MG tablet 10 mg PO .X1 PRN RF: 0 naratriptan [Amerge] 2.5 MG tablet 2.5 mg PO PRN PRN (Reason: Migraine Symptoms) RF: 0 eletriptan [Relpax] 40 MG tablet 40 mg PO .X1 PRN RF: 0 albuterol sulfate [ProAir HFA] 1 PUFF inhaler 1 - 2 puff inhalation Q6H PRN PRN (Reason: Asthma) RF: 0 acetaminophen 160 MG/5 ML suspension 500 mg PO Q4H PRN PRN (Reason: Mild-Moderate Pain (1-5/10)) RF: 0 ibuprofen 800 MG tablet 800 mg PO TID PRN PRN (Reason: Pain Or Fever) RF: 0 venlafaxine 75 MG tablet 75 mg PO DAILY RF: 0 propranolol 60 MG capsule 60 mg PO BID RF: 0 ondansetron 4 MG tablet 4 mg PO Q8H PRN PRN (Reason: Nausea) Qty: 10 RF: 0 meloxicam 15 mg Tablet 15 mg PO DAILY RF: 0 hydrochlorothiazide 12.5 mg capsule 12.5 mg PO DAILY RF: 0 sertraline 25 mg Tablet 25 mg PO DAILY RF: 0 melatonin 10 mg Tablet 10 mg PO QHS RF: 0 cholecalciferol (vitamin D3) 125 mcg (5,000 unit) Tablet 125 mcg PO DAILY RF: 0 lisinopril 10 mg Tablet 10 mg PO DAILY RF: 0 Referrals / Follow Up: Care Physician,No Primary [Primary Care Provider] - Within 1 Week (She is to follow with Dr. Vishnu Alejo iii, recommend calling his office to set up an appointment with a different provider.) Disposition Disposition (needs filled in before D/C Order can be placed): Home, Self Care
--- NOTE | 2021-04-01 10:12 | PCM.DC.SUM ---
Providers Date of Admission: 03/31/21 Primary Care Physician: No Primary Care Phys Reason For Visit: ASTHMA EXACERBATION Diagnosis Discharge Diagnosis (1) Asthma exacerbation: Status: Acute Code(s): J45.901 - Unspecified asthma with (acute) exacerbation Medications at Discharge Home Medications gabapentin 400 mg PO BID 10/04/16 albuterol sulfate [ProAir HFA] 1 - 2 puff INHALATION Q6H PRN PRN 03/22/18 eletriptan [Relpax] 40 mg PO .X1 PRN 03/22/18 naratriptan [Amerge] 2.5 mg PO PRN PRN 03/22/18 rizatriptan 10 mg PO .X1 PRN 03/22/18 sumatriptan succinate [Imitrex] 100 mg PO .X1 PRN 03/22/18 acetaminophen 500 mg PO Q4H PRN PRN udc 03/24/18 ibuprofen 800 mg PO TID PRN PRN 02/28/19 propranolol 60 mg PO BID 04/30/19 venlafaxine 75 mg PO DAILY 04/30/19 ondansetron 4 mg PO Q8H PRN PRN #10 tab 11/07/19 cholecalciferol (vitamin D3) 125 mcg PO DAILY 03/31/21 hydrochlorothiazide 12.5 mg PO DAILY 03/31/21 melatonin 10 mg PO QHS 03/31/21 meloxicam 15 mg PO DAILY 03/31/21 sertraline 25 mg PO DAILY 03/31/21 lisinopril 10 mg PO DAILY 04/01/21 prednisone 40 mg PO DAILY 7 Days #14 tab 04/01/21 Hospital Course Operations None Procedures None Summary of Care Provided Minutes Spent on Discharge: 35 Hospital Course: Per HPI: MARIA ELENA LUA, is a 30 F with history of asthma for last 6 years came to ER when she started coughing since 5 days. Her sputum is mainly clear. She also has wheezing, shortness of breath but denies fever or chills. She complained of chest tightness anteriorly. She does not follow any district extension service agent for asthma. She had asthma exacerbation which improved after outpatient management of prednisone burst therapy. Never been hospitalized for asthma exacerbation. She denies having PFT in the past. She denies a smoking history. In ED, shortness of breath did not get better with prednisone and bronchodilator therefore was admitted. She has history of migraine and hypertension. Hospital Course: 1. Acute asthma exacerbation?30-year-old female with a history of asthma she does not use her inhalers very frequently present with an asthma exacerbation. Charge antigen was negative and chest x-ray was unremarkable did not show a pneumonia. Because of the lack of signs of pneumonia as well as being afebrile, she was never started on any antibiotics. She has no significant wheezing on exam and she has good air movement. I discussed with her that she needs 7 days of p.o. prednisone and follow-up with her PCP in 3 to 5 days. She can resume her home albuterol inhaler and I discussed with her that 4 to 6 puffs every 4 hours as needed, doing nebulizer at home. I discussed with her the plan for discharge today and she expressed understanding of the risk benefits of going home and would like to go home today. Her primary care doctor was Dr. Vishnu Alejo and I asked her to call the office to set up an appointment with a different provider since he is retired. Physical Exam Const alert, oriented x3 and no apparent distress General Appearance: cooperative HEENT normocephalic and moist oral mucous membranes Eyes PERRL, EOMs intact bilaterally and conjunctivae normal Neck supple and no JVD Resp normal respiratory effort, no retractions and no use of accessory muscles Auscultation: wheezes; Negative for crackles, rales or rhonchi Cardio regular rate, regular rhythm, S1 normal heart sound, S2 normal heart sound and no murmurs GI soft to palpation, non-tender and non-distended; Negative for hepatosplenomegaly Extremity no clubbing, cyanosis or edema Skin no rashes or lesions noted Neuro no focal motor deficits and no sensory deficits noted Psych affect normal Appearance: appropriate Weight / BMI Weight Weight: 225 lb 1.471 oz Body Mass Index (BMI) 38.6 ABG / Lab / Microbiology Data Result Diagrams: 04/01/21 07:11 04/01/21 07:11 Laboratory: Laboratory Results - last 24 hr 03/31/21 18:05: WBC 17.2 H, RBC 5.33, Hgb 13.9, Hct 43.3, MCV 81.2, MCH 26.1 L, MCHC 32.1, RDW Std Deviation 38.2, RDW Coeff of Brenda 13.1, Plt Count 450, MPV 10.1, Immature Gran % (Auto) 0.500, Neut % (Auto) 86.8 H, Lymph % (Auto) 8.7 L, [place] % (Auto) 1.7, Eos % (Auto) 2.0, Baso % (Auto) 0.3, Absolute Neuts (auto) 14.9 H, Absolute Lymphs (auto) 1.49, Nucleated RBC % 0 03/31/21 18:05: Sodium 135 L, Potassium 3.7, Chloride 102, Carbon Dioxide 26.0, Anion Gap 7, BUN 10, Creatinine 0.68, Estim Creat Clear Calc 104.46, Est GFR (MDRD) Af Amer 131, Est GFR (MDRD) Non-Af 108, BUN/Creatinine Ratio 14.8, Glucose 127 H, Calcium 9.6 04/01/21 07:11: WBC 16.3 H, RBC 4.87, Hgb 13.0, Hct 39.9, MCV 81.9, MCH 26.7 L, MCHC 32.6, RDW Std Deviation 38.6, RDW Coeff of Brenda 13.0, Plt Count 440, MPV 10.3, Immature Gran % (Auto) 0.400, Neut % (Auto) 89.7 H, Lymph % (Auto) 8.1 L, [place] % (Auto) 1.7, Eos % (Auto) 0.0, Baso % (Auto) 0.1, Absolute Neuts (auto) 14.6 H, Absolute Lymphs (auto) 1.31, Nucleated RBC % 0 04/01/21 07:11: Sodium 137, Potassium 4.0, Chloride 108 H, Carbon Dioxide 23.0, Anion Gap 6, BUN 11, Creatinine 0.52 L, Estim Creat Clear Calc 136.60, Est GFR (MDRD) Af Amer 177, Est GFR (MDRD) Non-Af 146, BUN/Creatinine Ratio 21.1 H, Glucose 153 H, Calcium 8.8 Microbiology: Microbiology 03/31/21 21:45 Mucosa - Nasopharyngeal Respiratory Panel (PCR) - Final 03/31/21 14:30 Nasal Secretion SARS-CoV-2 Antigen (Rapid) - Final Radiography Diagnostic Testing: Radiology Impression Chest X-Ray 03/31/21 18:20 IMPRESSION: No radiographic evidence of acute cardiopulmonary disease. Electronically Signed: Franky Fragoso MD at 18:42 EST , Service support , D/C Instructions Discharge Diet: No restrictions Call your doctor if you observe: Fever of 101 or Higher, Shortness of breath, Dizziness, Fainting spells, Swelling in the ankles, Chest pain and Increased palpitations (irregular heartbeat) Meaningful Use Info Meaningful Use Diagnoses (Choose all that apply): None applicable Discharge Plan Admission Admit Date/Time: 03/31/21 19:01 Attending Provider: Mingo Salgado Primary Care Provider: Care Physician,No Primary Instructions Additional Instructions / Restrictions: She is to follow-up with her PCP in 3 to 5 days. I discussed with her that while she is at home for the next 2-3 days to use 4 puffs of her inhaler every 4 hours Discharge Orders/Prescriptions Prescriptions: New prednisone 20 mg tablet 40 mg PO DAILY 7 Days Qty: 14 RF: 0 Continued gabapentin 100 MG capsule 400 mg PO BID RF: 0 sumatriptan succinate [Imitrex] 100 MG tablet 100 mg PO .X1 PRN RF: 0 rizatriptan 10 MG tablet 10 mg PO .X1 PRN RF: 0 naratriptan [Amerge] 2.5 MG tablet 2.5 mg PO PRN PRN (Reason: Migraine Symptoms) RF: 0 eletriptan [Relpax] 40 MG tablet 40 mg PO .X1 PRN RF: 0 albuterol sulfate [ProAir HFA] 1 PUFF inhaler 1 - 2 puff inhalation Q6H PRN PRN (Reason: Asthma) RF: 0 acetaminophen 160 MG/5 ML suspension 500 mg PO Q4H PRN PRN (Reason: Mild-Moderate Pain (1-5/10)) RF: 0 ibuprofen 800 MG tablet 800 mg PO TID PRN PRN (Reason: Pain Or Fever) RF: 0 venlafaxine 75 MG tablet 75 mg PO DAILY RF: 0 propranolol 60 MG capsule 60 mg PO BID RF: 0 ondansetron 4 MG tablet 4 mg PO Q8H PRN PRN (Reason: Nausea) Qty: 10 RF: 0 meloxicam 15 mg Tablet 15 mg PO DAILY RF: 0 hydrochlorothiazide 12.5 mg capsule 12.5 mg PO DAILY RF: 0 sertraline 25 mg Tablet 25 mg PO DAILY RF: 0 melatonin 10 mg Tablet 10 mg PO QHS RF: 0 cholecalciferol (vitamin D3) 125 mcg (5,000 unit) Tablet 125 mcg PO DAILY RF: 0 lisinopril 10 mg Tablet 10 mg PO DAILY RF: 0 Referrals / Follow Up: Care Physician,No Primary [Primary Care Provider] - Within 1 Week (She is to follow with Dr. Vishnu Alejo iii, recommend calling his office to set up an appointment with a different provider.) Disposition Disposition (needs filled in before D/C Order can be placed): Home, Self Care Charges/Coding Visit Charges OBSV E&M: 39864 Observation care discharge
[2021-04-01 11:43] VITALS: PULSE 87; RESP 18
[2021-04-01 14:28] VITALS: BP 114/63; PULSE 91; RESP 16; TEMP 36.9; O2SAT 94
[2021-04-01] MEDS: 0.9% Saline Lock 10 ML Syringe IV (14:34)
== END 2021-04-01 15:30 | disposition home or self-care (01) ==
LOC: ED 15:45 → MS2 19:11
PROVIDERS: Admitting Provider Internal Medicine; Emergency Provider Emergency Medicine; Visit Provider Family Medicine
DX: J45.901 Unspecified asthma with (acute) exacerbation (principal); G43.909 Migraine, unspecified, not intractable, without status migrainosus; I10 Essential (primary) hypertension; E66.01 Morbid (severe) obesity due to excess calories; Z79.899 Other long term (current) drug therapy; Z68.38 Body mass index [BMI] 38.0-38.9, adult
CPT/HCPCS: 36415; 71045; 80048; 85025; 87426; 87633; 94640; 94667; 94668; 96361; 96372; 96374; 96376; 99218; 99251; 99283; J7030; A4216; G0378; G0463

== ENCOUNTER 2021-04-24 17:45 | Day surgery (SDC) | payer OTHER, SELFPAY ==
[2021-04-24 17:45] VITALS: BP 134/91; PULSE 83; RESP 16; TEMP 37; O2SAT 98; BMI 39.1
--- NOTE | 2021-04-24 18:02 | CT_ITS ---
STUDY: CT Abdomen And Pelvis W/O Contrast Injection 04/24/2021 7:14 PM REASON FOR EXAM: Female, 30 years old. Technologist Notes RLQ pain. Sx/Cholecystectomy, Tubal ligation. Pain TECHNIQUE: Transaxial images were obtained without oral contrast, and without intravenous contrast. Individualized dose optimization techniques were used for this CT. COMPARISON: 01.02.15 FINDINGS: The visualized lung bases are unremarkable. The visualized portions of the heart are within normal limits. Normal liver. There is non-visualization of the gallbladder, which may be secondary to either contraction or a prior cholecystectomy. Normal spleen. Normal pancreas. Normal bilateral adrenal glands. No acute findings of the right kidney. No acute findings of the left kidney. Normal visualized stomach. Normal small intestine. Stool throughout the colon. There is non-visualization of the appendix. There are no acute findings of the abdominal aorta. Normal inferior vena cava. Subcentimeter mesenteric lymph nodes. Normal urinary bladder. Normal visualized uterus. There is an umbilical hernia containing fat. Normal osseous structures. IMPRESSION: (NOT LISTED IN ORDER OF SIGNIFICANCE) There are no acute findings. Other findings as above. Electronically Signed: Franky Fragoso MD at 19:16 EST , Service support , CT/Abdomen/Pelvis without Cont
--- NOTE | 2021-04-24 18:03 | ED.VIS.GI ---
HPI HPI - GI History of Present Illness Chief Complaint: Abd Pain Detail of Chief Complaint: Abdominal pain that started yesterday Informant: patient Abdominal Pain/Flank Pain Current Severity: 11/22 Narrative Narrative: Patient presents to the emergency department complaint of abdominal pain that started yesterday. Patient states initially it started in the right upper abdomen and then over a short time it migrated down to the right lower quadrant where it has been since then. She complains of nausea but no vomiting. Patient states pain is worse with moving and she has a hard time standing straight up because of the pain. She denies any pain into her back. She denies urinary symptoms. She denies blood in her stool or diarrhea. She has not had pain like this before. No history of kidney stones. Years ago she had ovarian cyst. Patient's had prior tubal ligation and prior cholecystectomy. [facility] Medical History Migraines Tonsillectomy planned Home Medications gabapentin 400 mg PO BID 10/04/16 [History Last Taken 03/24/18] albuterol sulfate [ProAir HFA] 1 - 2 puff INHALATION Q6H PRN PRN 03/22/18 [History Last Taken Unknown] eletriptan [Relpax] 40 mg PO .X1 PRN 03/22/18 [History Last Taken Unknown] naratriptan [Amerge] 2.5 mg PO PRN PRN 03/22/18 [History Last Taken Unknown] rizatriptan 10 mg PO .X1 PRN 03/22/18 [History Last Taken Unknown] sumatriptan succinate [Imitrex] 100 mg PO .X1 PRN 03/22/18 [History Last Taken Unknown] acetaminophen 500 mg PO Q4H PRN PRN udc 03/24/18 [Rx Last Taken Unknown] ibuprofen 800 mg PO TID PRN PRN 02/28/19 [History Last Taken Unknown] propranolol 60 mg PO BID 04/30/19 [History Last Taken 05/03/19 06:00] venlafaxine 75 mg PO DAILY 04/30/19 [History Last Taken 05/03/19 06:00] ondansetron 4 mg PO Q8H PRN PRN #10 tab 11/07/19 [Rx Last Taken Unknown] cholecalciferol (vitamin D3) 125 mcg PO DAILY 03/31/21 [History Last Taken Unknown] hydrochlorothiazide 12.5 mg PO DAILY 03/31/21 [History Last Taken Unknown] melatonin 10 mg PO QHS 03/31/21 [History Last Taken Unknown] meloxicam 15 mg PO DAILY 03/31/21 [History Last Taken Unknown] sertraline 25 mg PO DAILY 03/31/21 [History Last Taken Unknown] lisinopril 10 mg PO DAILY 04/01/21 [History Last Taken Unknown] prednisone 40 mg PO DAILY 7 Days #14 tab 04/01/21 [Rx Last Taken Unknown] Allergy/AdvReac Type Severity Reaction Status Date / Time metoclopramide [From Reglan] AdvReac Other Verified 04/24/21 17:45 prochlorperazine AdvReac Other Verified 04/24/21 17:45 [From Compazine] Family History Mother Thyroid cancer Skin cancer Hypertension Surgical History S/P cholecystectomy S/P left knee arthroscopy tubes clamped Social History Smoking Status: Never smoker alcohol intake: never ROS ROS ED Constitutional Constitutional ED: Reports systems reviewed and no addt'l complaints, except as documented; Denies body ache(s), change in weight or chills Eyes Eyes: Denies acute decrease in peripheral vision, change in vision, double vision or loss of vision ENT ENT ED: Reports none; Denies ear pain, lip swelling, loss taste/smell, neck pain, otalgia or sore throat Cardiovascular Cardiovascular: Reports none; Denies abdominal pain, chest pain with activity, leg edema, lightheadedness, palpitations, rapid heart rate or syncope Respiratory/Chest Respiratory/Chest: Reports none; Denies change in mental status, dry cough, dyspnea, hemoptysis, shortness of breath at rest or shortness of breath with exertion Gastrointestinal Gastrointestinal: Reports none, abdominal pain and nausea; Denies change in stool character, diarrhea, hematemesis, hematochezia, melena, rectal bleeding or vomiting Genitourinary Genitourinary ED: Reports none; Denies abdominal discomfort, anuria, dysuria, genital pain or polyuria Musculoskeletal Musculoskeletal: Reports none; Denies arthralgias, back pain, difficulty walking, extremity pain, muscle weakness or myalgias Integumentary Reports none; Denies abscess or rash Neurologic Neurologic: Reports none; Denies abnormal gait, confusion, focal weakness, frequent falls, headache(s), loss of vision, numbness, paresthesias, radicular pain, vertigo or weakness Psychiatric Psychiatric: Reports systems reviewed and no addt'l complaints, except as documented and none; Denies behavioral changes, confusion, difficulty concentrating, hallucinations, suicidal ideation, tactile hallucinations or visual hallucinations Endocrine Endocrinology: Denies none, cold intolerance, excessive sweating, fatigue or heat intolerance Hematologic/Lymphatic Hematologic/Lymphatic: Reports none; Denies anemia, easy bleeding or easy bruising Allergic/Immunologic Allergic/Immunologic ED: Denies as per HPI, none, lip swelling, mouth swelling, throat swelling, tongue swelling or hives EXAM Physical Exam Const Vital Signs: 04/24/21 17:45 04/24/21 20:31 Temperature 98.6 F Temperature Source Temporal Pulse Rate 83 75 Respiratory Rate 16 18 Blood Pressure 134/91 H 118/67 Blood Pressure Mean 105 84 Pulse Ox 98 97 Oxygen Delivery Method Room Air Room Air Positive well nourished and well developed General Appearance ED: well developed and NAD HEENT Reports TM's clear and moist mucous membranes normocephalic and atraumatic; Negative for trauma or tenderness Tympanic Membrane ED: Yes TM's clear Eyes PERRL and EOMs intact bilaterally General Eye ED: Negative for pale conjunctiva or scleral icterus Neck no lymphadenopathy, supple and no JVD General: Negative for tenderness Chest Wall inspection of chest normal and palpation of chest normal Chest: Negative for tenderness Resp normal respiratory effort and clear to auscultation bilaterally Effort and Inspection: Negative for respiratory distress or pain with movement Auscultation: Negative for rhonchi, wheezes or diminished lung sounds Cardio regular rate, regular rhythm, S1 normal heart sound, S2 normal heart sound and no murmurs Peripheral Pulses: pulses 2+ throughout GI normal to inspection, nondistended, normoactive bowel sounds, soft to palpation, non-distended and no masses GI Narrative: Tenderness to right lower quadrant with guarding. There is no rebound or rigidity noted. Palpation: tender Back/Spine no CVA tenderness and no thoracic nor lumbar tenderness Extremity normal to inspection General Extremety ED: Negative for edema General Extremity: Negative for edema Neuro oriented x3, CN's II-XII intact bilaterally, no sensory deficits noted and gait normal Sensorium / Orientation: awake, alert, oriented to person, oriented to place and oriented to time Motor Exam: strength 5/5 throughout and strength abnormal Psych mental status grossly normal Skin no rashes or lesions noted and no wounds MDM MDM MDM Narrative Medical decision making narrative: IV line established on arrival. Patient was medicated morphine and Zofran. Initial CT without contrast did not visualize the appendix. Patient continued to have pain to the right lower quadrant therefore a CT scan with IV and p.o. contrast was ordered and repeated. Radiologist called to say that patient has evidence of acute appendicitis on CT scan. Patient was started on Zosyn IV. Case will be discussed with general surgeon on-call for operative intervention. Lab Data Attestation: I reviewed the patient's lab results. Labs: Laboratory Results - last 24 hr 04/24/21 04/24/21 04/24/21 18:14 18:14 18:14 WBC 10.6 RBC 4.97 Hgb 13.0 Hct 41.1 MCV 82.7 MCH 26.2 L MCHC 31.6 L RDW Std Deviation 39.8 RDW Coeff of Brenda 13.2 Plt Count 414 MPV 9.8 Immature Gran % (Auto) 0.500 Neut % (Auto) 55.6 Lymph % (Auto) 29.4 Edmunds % (Auto) 8.1 Eos % (Auto) 5.8 H Baso % (Auto) 0.6 Absolute Neuts (auto) 5.9 Absolute Lymphs (auto) 3.13 Nucleated RBC % 0 Sodium 141 Potassium 3.8 Chloride 108 H Carbon Dioxide 26.0 Anion Gap 7 BUN 14 Creatinine 0.67 Estim Creat Clear Calc 106.02 Est GFR (MDRD) Af Amer 133 Est GFR (MDRD) Non-Af 110 BUN/Creatinine Ratio 20.9 H Glucose 100 Calcium 9.1 Serum , Qual NEGATIVE Urine Color Urine Clarity Urine pH Ur Specific Norman Urine Protein Urine Glucose (UA) Urine Ketones Urine Occult Blood Urine Nitrite Urine Bilirubin Urine Urobilinogen Ur Leukocyte Esterase Urine RBC Urine WBC Ur Squamous Epith Cells Urine Bacteria Urine Mucus 04/24/21 18:18 WBC RBC Hgb Hct MCV MCH MCHC RDW Std Deviation RDW Coeff of Brenda Plt Count MPV Immature Gran % (Auto) Neut % (Auto) Lymph % (Auto) [place]mun[place] % (Auto) Eos % (Auto) Baso % (Auto) Absolute Neuts (auto) Absolute Lymphs (auto) Nucleated RBC % Sodium Potassium Chloride Carbon Dioxide Anion Gap BUN Creatinine Estim Creat Clear Calc Est GFR (MDRD) Af Amer Est GFR (MDRD) Non-Af BUN/Creatinine Ratio Glucose Calcium Serum , Qual Urine Color Yellow Urine Clarity Clear Urine pH 6.0 Ur Specific Norman 1.020 Urine Protein 15 H Urine Glucose (UA) Normal Urine Ketones Negative Urine Occult Blood Negative Urine Nitrite Negative Urine Bilirubin Negative Urine Urobilinogen 1 H Ur Leukocyte Esterase 100 H Urine RBC 0 SEEN Urine WBC 0-5 SEEN Ur Squamous Epith Cells 0-5 SEEN Urine Bacteria RARE Urine Mucus 0 SEEN Radiography Diagnostic Testing: Clinical Impression(s) from Imaging Studies Abdomen/Pelvis CT 04/24/21 18:02 Abdomen/Pelvis CT 04/24/21 19:34 Discharge Plan Triage Chief Complaint: Abd Pain ED Provider: Guevara Trevino Dx/Rx/DC Orders Clinical Impression: Abdominal pain, Acute appendicitis Prescriptions: No Action gabapentin 100 MG capsule 400 mg PO BID RF: 0 sumatriptan succinate [Imitrex] 100 MG tablet 100 mg PO .X1 PRN RF: 0 rizatriptan 10 MG tablet 10 mg PO .X1 PRN RF: 0 naratriptan [Amerge] 2.5 MG tablet 2.5 mg PO PRN PRN (Reason: Migraine Symptoms) RF: 0 eletriptan [Relpax] 40 MG tablet 40 mg PO .X1 PRN RF: 0 albuterol sulfate [ProAir HFA] 1 PUFF inhaler 1 - 2 puff inhalation Q6H PRN PRN (Reason: Asthma) RF: 0 acetaminophen 160 MG/5 ML suspension 500 mg PO Q4H PRN PRN (Reason: Mild-Moderate Pain (1-09/22)) RF: 0 ibuprofen 800 MG tablet 800 mg PO TID PRN PRN (Reason: Pain Or Fever) RF: 0 venlafaxine 75 MG tablet 75 mg PO DAILY RF: 0 propranolol 60 MG capsule 60 mg PO BID RF: 0 ondansetron 4 MG tablet 4 mg PO Q8H PRN PRN (Reason: Nausea) Qty: 10 RF: 0 meloxicam 15 mg Tablet 15 mg PO DAILY RF: 0 hydrochlorothiazide 12.5 mg capsule 12.5 mg PO DAILY RF: 0 sertraline 25 mg Tablet 25 mg PO DAILY RF: 0 melatonin 10 mg Tablet 10 mg PO QHS RF: 0 cholecalciferol (vitamin D3) 125 mcg (5,000 unit) Tablet 125 mcg PO DAILY RF: 0 lisinopril 10 mg Tablet 10 mg PO DAILY RF: 0 prednisone 20 mg tablet 40 mg PO DAILY 7 Days Qty: 14 RF: 0 Primary Care Provider: Care Physician,No Primary Referrals: Care Physician,No Primary [Primary Care Provider] - Disposition Disposition: Acute Care Hospital [facility]
[2021-04-24] MEDS: Morphine 4 MG/ML Syringe IV ×2 (18:18→19:42)
[2021-04-24] MEDS: 0.9% Normal Saline 1,000 ML 125 ML IV (18:19)
[2021-04-24] MEDS: Ondansetron 4 MG/2 ML Vial IV (18:19)
[2021-04-24 18:23] LABS: Absolute Lymphocyte Count 3.13 X10^3/uL (0.83-4.51); Absolute Neutrophil Count 5.9 X10^3/uL (2.0-7.7); Basophil# 0.06 X10^3/uL; Basophil% 0.6 % (0-1); Eosinophil# 0.62 X10^3/uL; Eosinophils% 5.8 % (0-5); Hematocrit 41.1 % (37-47); Lymphocyte # 3.13 X10^3/ul (0.83-4.51); Lymphocyte % 29.4 % (19-41); Mean Corp Hgb Conc 31.6 g/dL (32-36); Mean Corpuscular Hgb 26.2 pg (27.0-32.0); Mean Corpuscular Volume 82.7 fL (81-99); Mean Platelet Vol. 9.8 fl (6.2-12.0); Monocyte# 0.86 X10^3/uL; Monocyte% 8.1 % (0-10); NRBC Flagged by Analyzer 0 % (0-5); Neutrophil # 5.92 X10^3/uL (2.7-7.7); Neutrophil % 55.6 % (47-70); Platelet Count 414 K/mm3 (150-450); RBC Distribution Width CV 13.2 % (11.6-14.6); RBC Distribution Width SD 39.8 fl (35.1-43.9); Red Blood Count 4.97 M/mm3 (4.2-5.4); White Blood Count 10.6 K/mm3 (4.4-11.0)
[2021-04-24 18:25] LABS: Mucous, Urine 0 SEEN /hpf (<or=2+); Red Blood Cells-Urine 0 SEEN /hpf (0-5)
[2021-04-24 18:27] LABS: Color, Urine Yellow (Yellow); Glucose, Dipstick Normal (Normal); Ketone-Dipstick Negative (Negative); Leukocyte Esterase-Dipstick 100 /ul (Negative); Nitrite-Dipstick Negative (Negative); Occult Blood-Urine Negative /ul (Negative); Protein-Dipstick 15 mg/dl (Negative); Urine Bilirubin Dipstick Negative (Negative); Urine Clarity Clear (Clear); Urine Urobilinogen 1 mg/dl (Normal)
[2021-04-24 18:34] LABS: Anion Gap 7 (5-15); BUN 14 mg/dL (7-18); BUN/Creat Ratio 20.9 RATIO (10-20); Calcium,Total 9.1 mg/dL (8.5-10.1); Chloride 108 mmol/L (98-107); Creatinine, Serum 0.67 mg/dL (0.55-1.02); EST Glomerular Filtration Rate 110 mL/min (>60); Est Glom Filt Rate - Afr Amer 133 mL/min (>60); Estimated Creatinine Clearance 106.02 ml/min; Glucose 100 mg/dL (74-106); Potassium 3.8 mmol/L (3.5-5.1); Sodium Level 141 mmol/L (136-145)
[2021-04-24 18:41] LABS: Bacteria RARE /hpf (None Seen); Squamous Epithelial Cells - UA 0-5 SEEN /hpf (5-10); White Blood Cells 0-5 SEEN /hpf (0-5)
[2021-04-24 19:22] LABS: Internal QC Validated? YES +Cl - CLEAR BKGD; Pregnancy, Serum, hCG Quali. NEGATIVE Negative
--- NOTE | 2021-04-24 19:34 | CT_ITS ---
We are attempting to reach an attending provider to discuss findings. An addendum with communication details will be sent when the communication is complete. STUDY: CT Abdomen And Pelvis W/ Contrast Injection 04/24/2021 9:33 PM REASON FOR EXAM: Female, 30 years old. ABDOMINAL PAIN abdominal pain TECHNIQUE: Transaxial images were obtained with oral contrast, and with Oral and amp; IV Gastrografin and amp; 100mL Isovue-370 intravenous contrast. Individualized dose optimization techniques were used for this CT. COMPARISON: 01.02.15 FINDINGS: The visualized lung bases are unremarkable. The visualized portions of the heart are within normal limits. Normal liver. There is non-visualization of the gallbladder, which may be secondary to either contraction or a prior cholecystectomy. Normal spleen. Normal pancreas. Normal bilateral adrenal glands. No acute findings of the right kidney. No acute findings of the left kidney. Normal visualized stomach. Normal small intestine. Stool throughout the colon. There is a tubular, thick-walled appendix (>7mm), consistent with acute appendicitis. Appendix is retrocecal. There are no acute findings of the abdominal aorta. Normal inferior vena cava. Subcentimeter mesenteric lymph nodes. Normal urinary bladder. Normal visualized uterus. There is an umbilical hernia containing fat. Normal osseous structures. IMPRESSION: (NOT LISTED IN ORDER OF SIGNIFICANCE) Acute appendicitis. Other findings as above. Electronically Signed: Franky Fragoso MD at 21:37 EST , Service support , CT/Abdomen/Pelvis WITH Contrast
[2021-04-24 20:31] VITALS: BP 118/67; PULSE 75; RESP 18; O2SAT 97
--- NOTE | 2021-04-24 22:19 | EX.PCM.CON.S ---
Assessment & Plan Assessment/Plan (1) Acute appendicitis: QUALIFIERS: Acute appendicitis type: with localized peritonitis Appendicitis gangrene presence: without gangrene Appendicitis perforation presence: without perforation Appendicitis abscess presence: without abscess Qualified Code(s): K35.30 - Acute appendicitis with localized peritonitis, without perforation or gangrene PLAN: Plan will be to perform a laparoscopic appendectomy.I have counseled the patient as to the risks of the procedure, including but not limited to: infection, bleeding, injury to any blood vessels/nerves, injury to any bowel/bladder, injury to any intraabdominal organs such as the liver/spleen, perforation of the GI tract, intraabdominal abscess/bleeding, incisional hernias, injury to the common bile duct/biliary ducts, injury to the spermatic cord/vessels/testicles, recurrence of hernia(s), complications of anesthesia, etc. The patient verbalizes understanding. HPI Consult Data Date of Consult: 04/24/21 HPI Narrative HPI Narrative: MARIA ELENA LUA, is a 30 F who presents to the emergency department complaint of abdominal pain that started yesterday. Patient states initially it started in the right upper abdomen and then over a short time it migrated down to the right lower quadrant where it has been since then. She complains of nausea but no vomiting. Patient states pain is worse with moving and she has a hard time standing straight up because of the pain. She denies any pain into her back. She denies urinary symptoms. She denies blood in her stool or diarrhea. She has not had pain like this before. No history of kidney stones. Years ago she had ovarian cyst. Patient's had prior tubal ligation and prior cholecystectomy. [facility] Medical History Migraines Tonsillectomy planned Home Medications gabapentin 400 mg PO BID 10/04/16 [History Last Taken 03/24/18] albuterol sulfate [ProAir HFA] 1 - 2 puff INHALATION Q6H PRN PRN 03/22/18 [History Last Taken Unknown] eletriptan [Relpax] 40 mg PO .X1 PRN 03/22/18 [History Last Taken Unknown] naratriptan [Amerge] 2.5 mg PO PRN PRN 03/22/18 [History Last Taken Unknown] rizatriptan 10 mg PO .X1 PRN 03/22/18 [History Last Taken Unknown] sumatriptan succinate [Imitrex] 100 mg PO .X1 PRN 03/22/18 [History Last Taken Unknown] acetaminophen 500 mg PO Q4H PRN PRN udc 03/24/18 [Rx Last Taken Unknown] ibuprofen 800 mg PO TID PRN PRN 02/28/19 [History Last Taken Unknown] propranolol 60 mg PO BID 04/30/19 [History Last Taken 05/03/19 06:00] venlafaxine 75 mg PO DAILY 04/30/19 [History Last Taken 05/03/19 06:00] ondansetron 4 mg PO Q8H PRN PRN #10 tab 11/07/19 [Rx Last Taken Unknown] cholecalciferol (vitamin D3) 125 mcg PO DAILY 03/31/21 [History Last Taken Unknown] hydrochlorothiazide 12.5 mg PO DAILY 03/31/21 [History Last Taken Unknown] melatonin 10 mg PO QHS 03/31/21 [History Last Taken Unknown] meloxicam 15 mg PO DAILY 03/31/21 [History Last Taken Unknown] sertraline 25 mg PO DAILY 03/31/21 [History Last Taken Unknown] lisinopril 10 mg PO DAILY 04/01/21 [History Last Taken Unknown] prednisone 40 mg PO DAILY 7 Days #14 tab 04/01/21 [Rx Last Taken Unknown] Allergy/AdvReac Type Severity Reaction Status Date / Time metoclopramide [From Reglan] AdvReac Other Verified 04/24/21 17:45 prochlorperazine AdvReac Other Verified 04/24/21 17:45 [From Compazine] Family History Mother Thyroid cancer Skin cancer Hypertension Surgical History S/P cholecystectomy S/P left knee arthroscopy tubes clamped Social History Smoking Status: Never smoker alcohol intake: never ROS Cardiovascular Cardiovascular: Denies chest pain Respiratory/Chest Respiratory/Chest: Denies cough or dyspnea Gastrointestinal Gastrointestinal: Reports abdominal pain and nausea; Denies diarrhea, dysphagia or vomiting Physical Exam Const alert and oriented x3 General Appearance: cooperative HEENT normocephalic and head/scalp atraumatic Eyes PERRL and EOMs intact bilaterally Resp clear to auscultation bilaterally Cardio Rate: regular rate Rhythm: regular rhythm GI Palpation: tender McBurney's point and Rovsing's sign and guarding Lab / Micro Data Result Diagrams: 04/24/21 18:14 04/24/21 18:14 Labs: Laboratory Results - last 24 hr 04/24/21 18:14: WBC 10.6, RBC 4.97, Hgb 13.0, Hct 41.1, MCV 82.7, MCH 26.2 L, MCHC 31.6 L, RDW Std Deviation 39.8, RDW Coeff of Brenda 13.2, Plt Count 414, MPV 9.8, Immature Gran % (Auto) 0.500, Neut % (Auto) 55.6, Lymph % (Auto) 29.4, [place] % (Auto) 8.1, Eos % (Auto) 5.8 H, Baso % (Auto) 0.6, Absolute Neuts (auto) 5.9, Absolute Lymphs (auto) 3.13, Nucleated RBC % 0 04/24/21 18:14: Sodium 141, Potassium 3.8, Chloride 108 H, Carbon Dioxide 26.0, Anion Gap 7, BUN 14, Creatinine 0.67, Estim Creat Clear Calc 106.02, Est GFR (MDRD) Af Amer 133, Est GFR (MDRD) Non-Af 110, BUN/Creatinine Ratio 20.9 H, Glucose 100, Calcium 9.1 04/24/21 18:14: Serum , Qual NEGATIVE 04/24/21 18:18: Urine Color Yellow, Urine Clarity Clear, Urine pH 6.0, Ur Specific [place] 1.020, Urine Protein 15 H, Urine Glucose (UA) Normal, Urine Ketones Negative, Urine Occult Blood Negative, Urine Nitrite Negative, Urine Bilirubin Negative, Urine Urobilinogen 1 H, Ur Leukocyte Esterase 100 H, Urine RBC 0 SEEN, Urine WBC 0-5 SEEN, Ur Squamous Epith Cells 0-5 SEEN, Urine Bacteria RARE, Urine Mucus 0 SEEN Radiology Impression Abdomen/Pelvis CT 04/24/21 18:02 Abdomen/Pelvis CT 04/24/21 19:34 ADDENDUM: 04/24/21 [id number]
[2021-04-24 22:26] VITALS: BP 125/65; PULSE 71; RESP 18; TEMP 36.4; O2SAT 97; BMI 39.1
--- NOTE | 2021-04-24 23:30 | APP_PTH ---
PATIENT: MARIA ELENA LUA LOC: [facility] [place] U#:[id number] AGE/SX: 30/F ROOM: RE04/24/[address]: Dr. Tee Loco MD : [id number] BED: DIS: 04/25/2021 SPEC #: [id number] RECD: 04/27/21 07:31 STATUS: GLENIS REDenny #: [id number] MICHELLE: 04/24/21 23:[address]: Tee Loco DEPT: SURGICAL PATHOLOGY RECD BY: Luis Naqvi ENTERED: 04/27/21 11:12 SP TYPE: APPENDIX OTHR DR: No Primary Care Phys Tissues: Appendix, NOS Procedures: Surgery Specimen Level III HEADER OPERATION: Laparoscopic appendectomy PRE-OP DIAGNOSIS: Acute appendicitis TISSUE SUBMITTED: Appendix MICROSCOPIC DIAGNOSIS Appendix, appendectomy: Acute appendicitis. Acute serositis. AM:anurag 04/28/2021 MICROSCOPIC DESCRIPTION Slides are reviewed. GROSS DESCRIPTION Received in fixative is one container labeled with the patient's name and designated appendix. The specimen consists of an appendix measuring 6.5 cm in length and 0.8 cm in average diameter. No gross perforations are evident. No mass lesion is identified. Downstairs Maid sections are submitted in one cassette. / AM:anurag 04/27/21 TC:2 CPT: 44311
--- NOTE | 2021-04-24 23:47 | PCM.OPRPT ---
Problems Associated Problem List Diagnoses (1) Acute appendicitis: Report of Operation Date of Procedure: 04/24/21 Pre-Operative Diagnosis: Acute appendicitis Post-Operative Diagnosis: Same Surgery/Procedure Performed:: Laparoscopic appendectomy Surgeon: Tee Loco Type of Anesthesia: General Anesthesiologist: Alvaro Jeffries Specimen's removed: Appendix Estimated Blood Loss (mL): < 25 cc Description of Procedure: Patient was brought into the operating room. Placed in the supine position. Under excellent general endotracheal ovation the abdomen was sterilely prepped and draped in usual fashion. Local was injected infraumbilically. Dissection was carried down to the fascia. The fascia grasped with [place]. Varies needle was placed inside the abdomen. The abdomen was insufflated to 15 torr. A 10/12 trocar was placed without difficulty. Patient was placed in the headdown position and suprapubic #5 trochars placed left lower quadrant #5 trochars placed. These trochars were placed under direct visualization without injury to underlying structures. Patient was noted to have acute appendicitis I took the mesoappendix down with the Enseal I transected the base of the appendix with a 45 linear cutter I used touch cautery on the staple line to have good hemostasis. Placed the specimen in a specimen bag delivered through the umbilical port without difficulty. Irrigated the pelvis. Ran the small bowel no Meckel's diverticulum was identified. Remove the trochars under direct visualization good with stasis was noted. Close the fascia the umbilical port with a [id number] stitch of 0 Vicryl. Skin incisions were closed with subcuticular stitches of 4-0 Monocryl. Steri-Strips were applied sterile dressings were applied and the patient tolerated the procedure well. Admit VTE Documentation VTE Present on Admission: No VTE Mechan Device Prophylaxis: SCD's VTE Pharm Prophylaxis ordered?: No Reason prophylaxis not ordered:: Treatment Not Indicated
--- NOTE | 2021-04-24 23:53 | EX.PCM.DISCH ---
Discharge Instructions Procedure Appendectomy Diet Discharge Diet: Light diet - advance as tolerated (if you have questions about your diet instructions, please talk to you doctor.) Activity Discharge Activity: May Not Drive (for 3-5 days or while taking narcotic pain meds.) May shower in (days): 1 Dressing / Incision Call your doctor if your incision/area has: Continuous Slow Oozing, Sudden Increased Bleeding, Increased Pain/ Swelling, Increased Redness and Foul Smelling Discharge Call your doctor if you observe: Fever of 101 or Higher Suture Line Care: Avoid Pulling/Pushing and Avoid Pinching/Bending Additional Dressing/Incision Instructions:: Keep dressing clean and dry. Change or remove dressing in 2 days. Leave steri strips for 1 week. May protect with a gauze bandaid. Follow Up Care Please Follow Up With: Julissa Nielsen PA-C When: Call office to schedule an appointment to be seen in 1 week. Test Results: Test results from this visit will be discussed in further detail at your follow-up appointment, if applicable. Discharge Plan Admission Attending Provider: Tee Loco Primary Care Provider: Care Physician,An Primary Discharge Orders/Prescriptions Prescriptions: New oxycodone-acetaminophen [Endocet] 5-325 mg tablet 1 tab PO Q6H PRN (Reason: pain) 5 Days Qty: 20 RF: 0 No Action gabapentin 100 MG capsule 400 mg PO BID RF: 0 sumatriptan succinate [Imitrex] 100 MG tablet 100 mg PO .X1 PRN RF: 0 rizatriptan 10 MG tablet 10 mg PO .X1 PRN RF: 0 naratriptan [Amerge] 2.5 MG tablet 2.5 mg PO PRN PRN (Reason: Migraine Symptoms) RF: 0 eletriptan [Relpax] 40 MG tablet 40 mg PO .X1 PRN RF: 0 albuterol sulfate [ProAir HFA] 1 PUFF inhaler 1 - 2 puff inhalation Q6H PRN PRN (Reason: Asthma) RF: 0 acetaminophen 160 MG/5 ML suspension 500 mg PO Q4H PRN PRN (Reason: Mild-Moderate Pain (1-5/10)) RF: 0 ibuprofen 800 MG tablet 800 mg PO TID PRN PRN (Reason: Pain Or Fever) RF: 0 venlafaxine 75 MG tablet 75 mg PO DAILY RF: 0 propranolol 60 MG capsule 60 mg PO BID RF: 0 ondansetron 4 MG tablet 4 mg PO Q8H PRN PRN (Reason: Nausea) Qty: 10 RF: 0 meloxicam 15 mg Tablet 15 mg PO DAILY RF: 0 hydrochlorothiazide 12.5 mg capsule 12.5 mg PO DAILY RF: 0 sertraline 25 mg Tablet 25 mg PO DAILY RF: 0 melatonin 10 mg Tablet 10 mg PO QHS RF: 0 cholecalciferol (vitamin D3) 125 mcg (5,000 unit) Tablet 125 mcg PO DAILY RF: 0 lisinopril 10 mg Tablet 10 mg PO DAILY RF: 0 prednisone 20 mg tablet 40 mg PO DAILY 7 Days Qty: 14 RF: 0 Referrals / Follow Up: Care Physician,No Primary [Primary Care Provider] - Julissa Nielsen PA-C [[employer]] - Disposition Discharge Orders: Discharge Patient (Routine); Ordered 04/24/21 Ordered By: Dr. Tee Loco
[2021-04-24] MEDS: Bupivacaine Mpf 0.5% 30 ML VIAL (23:54)
[2021-04-25] VITALS (8 sets, daily range): BP systolic 108–125; BP diastolic 65–82; PULSE 78–89; RESP 16–22; TEMP 36.2; O2SAT 93–96
[2021-04-25] MEDS: Ipratropium/Albuterol Sulfate 3 ML AMPUL.NEB INHALATION (00:18)
[2021-04-25] MEDS: Lactated Ringers 1,000 ML 15 ML IV (00:23)
[2021-04-25] MEDS: Acetaminophen 325 MG Tablet PO (01:15)
[2021-04-25] MEDS: oxyCODONE 5 MG Tablet PO (01:15)
== END 2021-04-25 01:35 | disposition home or self-care (01) ==
LOC: ED 21:57 → SDC 23:18
PROVIDERS: Emergency Provider Emergency Medicine; Visit Provider Surgery
PROC: 0DTJ4ZZ Resection of Appendix, Percutaneous Endoscopic Approach (ICD-10-PCS; CPT 44970; principal; 2021-04-24 23:30)
DX: K35.30 Acute appendicitis with localized peritonitis, without perforation or gangrene (principal)
CPT/HCPCS: 00840; 44970; 74176; 74177; 80048; 81001; 84703; 85025; 88304; 94640; 99284; J7030; J7120; Q9967; A4216; C1760; J2405

== ENCOUNTER 2021-07-20 07:07 | Observation (INO) | payer OTHER, SELFPAY ==
[2021-07-20] VITALS (13 sets, daily range): BP systolic 106–156; BP diastolic 65–95; PULSE 68–105; RESP 16–22; TEMP 36.2–37; O2SAT 94–99; BMI 38.2; BMI 40.1
--- NOTE | 2021-07-20 07:21 | EKG12_ITS ---
Test Reason : SOB Blood Pressure : / mmHG Vent. Rate : 089 BPM Atrial Rate : 089 BPM P-R Int : 132 ms QRS Dur : 080 ms QT Int : 338 ms P-R-T Axes : 013 010 016 degrees QTc Int : 411 ms Normal sinus rhythm Normal ECG Confirmed by JAME ANTONIO, MAURICIO ([id number]), production editor RADHIKA RUIZ ([id number]) on 07/21/2021 9:23:36 AM Referred By: PC Confirmed By:MAURICIO KILGORE MD
--- NOTE | 2021-07-20 07:21 | RAD_ITS ---
STUDY: X-RAY CHEST REASON FOR EXAM: Female, 30 years old. Sob TECHNIQUE: Single AP portable view of the chest. COMPARISON: Comparison is made with prior study dated 03/31/2021. FINDINGS: EKG electrodes are seen. The lungs are clear and expanded. There is no demonstrated pleural abnormality. Normal size heart. Normal mediastinum and kay. Normal visualized pulmonary arteries. Normal visualized aortic arch and descending thoracic aorta. Normal visualized thoracic spine. Normal visualized ribs, clavicles, and shoulders. There is no demonstrated abnormality of the visualized soft tissue structures of the upper abdomen. RAD/Chest 1 View (Portable) IMPRESSION: Normal x-ray examination of the chest. Electronically Signed: Richie Gray MD at 8:14 EST ,
[2021-07-20] MEDS: Albuterol 2.5 MG/3 ML VIAL.NEB. INHALATION ×3 (07:35→07:47)
--- NOTE | 2021-07-20 07:36 | EDS_ITS ---
HPI History of Present Illness Chief Complaint: Asthma Narrative Narrative: Patient presents with shortness of breath, this is ongoing for the past few days. No fevers or chills. She does have a cough, there is some sputum production which is clear. She has no chest pain. No back pain. She does have a history of asthma and this feels just like her prior asthma. She has taken her rescue inhaler with minimal improvement. [facility] Medical History Migraines Tonsillectomy planned Home Medications gabapentin 400 mg PO BID 10/04/16 [History Last Taken 03/24/18] albuterol sulfate [ProAir HFA] 1 - 2 puff INHALATION Q6H PRN PRN 03/22/18 [History Last Taken Unknown] eletriptan [Relpax] 40 mg PO .X1 PRN 03/22/18 [History Last Taken Unknown] naratriptan [Amerge] 2.5 mg PO PRN PRN 03/22/18 [History Last Taken Unknown] rizatriptan 10 mg PO .X1 PRN 03/22/18 [History Last Taken Unknown] sumatriptan succinate [Imitrex] 100 mg PO .X1 PRN 03/22/18 [History Last Taken Unknown] acetaminophen 500 mg PO Q4H PRN PRN udc 03/24/18 [Rx Last Taken Unknown] ibuprofen 800 mg PO TID PRN PRN 02/28/19 [History Last Taken Unknown] propranolol 60 mg PO BID 04/30/19 [History Last Taken 05/03/19 06:00] venlafaxine 75 mg PO DAILY 04/30/19 [History Last Taken 05/03/19 06:00] ondansetron 4 mg PO Q8H PRN PRN #10 tab 11/07/19 [Rx Last Taken Unknown] cholecalciferol (vitamin D3) 125 mcg PO DAILY 03/31/21 [History Last Taken Unknown] hydrochlorothiazide 12.5 mg PO DAILY 03/31/21 [History Last Taken Unknown] melatonin 10 mg PO QHS 03/31/21 [History Last Taken Unknown] meloxicam 15 mg PO DAILY 03/31/21 [History Last Taken Unknown] sertraline 25 mg PO DAILY 03/31/21 [History Last Taken Unknown] lisinopril 10 mg PO DAILY 04/01/21 [History Last Taken Unknown] Allergy/AdvReac Type Severity Reaction Status Date / Time metoclopramide [From Reglan] AdvReac Other Verified 07/20/21 07:10 prochlorperazine AdvReac Other Verified 07/20/21 07:10 [From Compazine] Family History Mother Thyroid cancer Skin cancer Hypertension Surgical History S/P cholecystectomy S/P left knee arthroscopy tubes clamped Social History Smoking Status: Never smoker alcohol intake: never ROS ROS ED ROS Narrative Past medical history: Reviewed Medications: Reviewed Social history: Noncontributory Review of systems: All systems negative except as indicated General: No fever Eyes: No visual changes ENT: No upper airway congestion, normal voice Neck: No neck pain Cardiovascular: No chest pain Respiratory: Shortness of breath as in HPI Gastrointestinal: No abdominal pain, nausea vomiting or diarrhea Genitourinary: No dysuria Musculoskeletal: Denies myalgias no difficulty with ambulation Skin: No rash Neurological: No memory loss, confusion or any focal weakness Psych: No recent behavioral changes Hematologic: No easy bleeding or easy bruising EXAM Physical Exam Narrative Exam Narrative: Physical exam General: Patient does appear somewhat uncomfortable. Head: Normocephalic, Atraumatic Eyes: Conjunctiva not pale ENT: Moist mucous membranes Neck: Supple, Nontender, No lymphadenopathy Cardiovascular: Regular rate, Regular rhythm Respiratory: Patient is slightly tachypneic about 18. She has diminished breath sound and and expiratory wheezing. She is speaking in full sentences. I do not appreciate any retractions. Abdomen: Soft, Nontender, Nondistended Back: Nontender, Normal Inspection. Negative for: CVA tenderness Extremities: Nontender, No edema Skin: Normal color, No rash Neurological: Alert, Normal Strength, Normal Sensation Psychological: Normal affect Const Vital Signs: 07/20/21 07:08 07/20/21 07:36 07/20/21 08:23 Temperature 97.2 F L Temperature Source Temporal Pulse Rate 94 93 85 Respiratory Rate 16 22 H 16 Respiratory Pattern Tachypnea Blood Pressure 156/95 H 117/80 Blood Pressure Mean 115 92 Pulse Ox 99 97 Oxygen Delivery Method Room Air Room Air 07/20/21 08:28 07/20/21 08:40 Temperature Temperature Source Pulse Rate 88 85 Respiratory Rate 18 19 H Respiratory Pattern Normal Tachypnea Blood Pressure Blood Pressure Mean Pulse Ox Oxygen Delivery Method MDM MDM MDM Narrative Medical decision making narrative: Patient is given 2 DuoNeb's and 3 albuterol's, she did improve after each 1 however she felt dyspneic after brief waiting period. She still has diminished breath sounds. I will add magnesium as well as the Solu-Medrol, she will need admission. Radiography Diagnostic Testing: Clinical Impression(s) from Imaging Studies Chest X-Ray 07/20/21 07:21 IMPRESSION: Normal x-ray examination of the chest. Electronically Signed: Richie Gray MD at 8:14 EST , EKG Initial EKG: Comments: Sinus rhythm with a rate of 89. Normal AK and QTc intervals. No ischemic changes Interpreted by emergency doctor. Discharge Plan Triage Chief Complaint: Asthma ED Provider: Andrew Lyles Dx/Rx/DC Orders Clinical Impression: Asthma exacerbation Prescriptions: No Action gabapentin 100 MG capsule 400 mg PO BID RF: 0 sumatriptan succinate [Imitrex] 100 MG tablet 100 mg PO .X1 PRN RF: 0 rizatriptan 10 MG tablet 10 mg PO .X1 PRN RF: 0 naratriptan [Amerge] 2.5 MG tablet 2.5 mg PO PRN PRN (Reason: Migraine Symptoms) RF: 0 eletriptan [Relpax] 40 MG tablet 40 mg PO .X1 PRN RF: 0 albuterol sulfate [ProAir HFA] 1 PUFF inhaler 1 - 2 puff inhalation Q6H PRN PRN (Reason: Asthma) RF: 0 acetaminophen 160 MG/5 ML suspension 500 mg PO Q4H PRN PRN (Reason: Mild-Moderate Pain (1-5/10)) RF: 0 ibuprofen 800 MG tablet 800 mg PO TID PRN PRN (Reason: Pain Or Fever) RF: 0 venlafaxine 75 MG tablet 75 mg PO DAILY RF: 0 propranolol 60 MG capsule 60 mg PO BID RF: 0 ondansetron 4 MG tablet 4 mg PO Q8H PRN PRN (Reason: Nausea) Qty: 10 RF: 0 meloxicam 15 mg Tablet 15 mg PO DAILY RF: 0 hydrochlorothiazide 12.5 mg capsule 12.5 mg PO DAILY RF: 0 sertraline 25 mg Tablet 25 mg PO DAILY RF: 0 melatonin 10 mg Tablet 10 mg PO QHS RF: 0 cholecalciferol (vitamin D3) 125 mcg (5,000 unit) Tablet 125 mcg PO DAILY RF: 0 lisinopril 10 mg Tablet 10 mg PO DAILY RF: 0 Primary Care Provider: Care Physician,No Primary Referrals: Care Physician,No Primary [Primary Care Provider] - Disposition Disposition: Acute Care Hospital [facility]
[2021-07-20] MEDS: Ipratropium/Albuterol Sulfate 3 ML AMPUL.NEB INHALATION ×6 (08:27→23:19)
--- NOTE | 2021-07-20 09:23 | PCM.HP.STD ---
HPI - General General Date of Admission: 07/20/21 Date of Service: 07/20/21 Chief Complaint: Shortness of breath HPI Narrative MARIA ELENA LUA, is a 30 F who presents with shortness of breath. Patient symptoms have been ongoing for the past 2 days. Patient has history of mild intermittent asthma and had apparently been doing well with much use of her inhaler still 2 days prior to her admission. She had used her inhalers at home without much improvement. She subsequently elected to present to the ED as a result. In the emergency department and assessment of acute asthma exacerbation was made did receive initial treatment without much improvement the decision was therefore made to admit patient for observation. [facility] Medical History Migraines Tonsillectomy planned Home Medications gabapentin 400 mg PO BID 10/04/16 [History Last Taken 03/24/18] albuterol sulfate [ProAir HFA] 1 - 2 puff INHALATION Q6H PRN PRN 03/22/18 [History Last Taken Unknown] eletriptan [Relpax] 40 mg PO .X1 PRN 03/22/18 [History Last Taken Unknown] naratriptan [Amerge] 2.5 mg PO PRN PRN 03/22/18 [History Last Taken Unknown] rizatriptan 10 mg PO .X1 PRN 03/22/18 [History Last Taken Unknown] sumatriptan succinate [Imitrex] 100 mg PO .X1 PRN 03/22/18 [History Last Taken Unknown] acetaminophen 500 mg PO Q4H PRN PRN udc 03/24/18 [Rx Last Taken Unknown] ibuprofen 800 mg PO TID PRN PRN 02/28/19 [History Last Taken Unknown] propranolol 60 mg PO BID 04/30/19 [History Last Taken 05/03/19 06:00] venlafaxine 75 mg PO DAILY 04/30/19 [History Last Taken 05/03/19 06:00] ondansetron 4 mg PO Q8H PRN PRN #10 tab 11/07/19 [Rx Last Taken Unknown] cholecalciferol (vitamin D3) 125 mcg PO DAILY 03/31/21 [History Last Taken Unknown] hydrochlorothiazide 12.5 mg PO DAILY 03/31/21 [History Last Taken Unknown] melatonin 10 mg PO QHS 03/31/21 [History Last Taken Unknown] meloxicam 15 mg PO DAILY 03/31/21 [History Last Taken Unknown] sertraline 25 mg PO DAILY 03/31/21 [History Last Taken Unknown] lisinopril 10 mg PO DAILY 04/01/21 [History Last Taken Unknown] Allergy/AdvReac Type Severity Reaction Status Date / Time metoclopramide [From Reglan] AdvReac severe Verified 07/20/21 10:29 anxious prochlorperazine AdvReac severe Verified 07/20/21 10:29 [From Compazine] anxious Family History Mother Thyroid cancer Skin cancer Hypertension Surgical History S/P cholecystectomy S/P left knee arthroscopy tubes clamped Social History Smoking Status: Never smoker alcohol intake: never ROS ROS Narrative GENERAL: denies fever, chills, night sweats, weight loss, anorexia HEENT: denies headache, sinus congestion, or drainage, dysphagia RESPIRATORY: shortness of breath, dyspnea on exertion CARDIAC: denies chest pain, palpitations, orthopnea, PND GASTROINTESTINAL: denies abdominal pain, nausea, vomiting, melena, GENITOURINARY: denies dysuria, urgency, frequency, heamaturia EXTREMITY: denies swelling MUSCULOSKELETAL: denies current joint pain or tenderness NEUROLOGIC: denies focal numbness, weakness, tingling HEMATOLOGIC: denies easy bruising and/or hemorrhage INTEGUMENT: denies rashes PSYCHIATRIC: denies suicidal or homicidal ideation Vital Signs Vital Signs Vital Signs: 07/20/21 07:08 07/20/21 07:36 07/20/21 08:23 Temperature 97.2 F L Temperature Source Temporal Pulse Rate 94 93 85 Respiratory Rate 16 22 H 16 Respiratory Pattern Tachypnea Blood Pressure 156/95 H 117/80 Blood Pressure Mean 115 92 Pulse Ox 99 97 Oxygen Delivery Method Room Air Room Air 07/20/21 08:28 07/20/21 08:40 Temperature Temperature Source Pulse Rate 88 85 Respiratory Rate 18 19 H Respiratory Pattern Normal Tachypnea Blood Pressure Blood Pressure Mean Pulse Ox Oxygen Delivery Method Weight Weight: 101 kg Body Mass Index (BMI) 38.2 Physical Exam Narrative GENERAL: cooperative HEENT: Atraumatic; EYES; Anicteric, Normal Conjunctiva NECK; supple, normal thyroid, RESPIRATORY: Markedly diminished to auscultation no wheezes CARDIOVASCULAR: Regular S1 S2, GI: soft, normoactive bowel sounds, : No Renal angle tenderness; EXTREMITIES: No edema, no clubbing, MUSCULOSKELETAL: no muscle wasting NEURO: Awake; no lateralizing signs. SKIN: No Rash PSYCH; Flat affect Results Lab / Micro Data Result Diagrams: 07/20/21 09:50 07/20/21 09:50 Micro: Microbiology 07/20/21 07:27 Nasal Secretion SARS-CoV-2 Antigen (Rapid) - Final 07/20/21 07:27 Mucosa - Nose Influenza Types A,B Direct FA (KULDEEP) - Final Radiology Impression Chest X-Ray 07/20/21 07:21 IMPRESSION: Normal x-ray examination of the chest. Electronically Signed: Richie Gray MD at 8:14 EST , Assessment & Plan Assessment/Plan (1) Asthma exacerbation: PLAN: Patient is a 30-year-old lady presented with shortness of breath 1. Acute asthma exacerbation -admitted to regular nursing floor where patient is being managed with bronchodilator treatment as well as steroids in addition to supplemental oxygen. Patient apparently did not respond to treatment initiated in the ED. Her progress to be monitored by response to bronchodilator therapy as well as continuous pulse oximeter 2. Essential hypertension ?Patient home meds 3. Migraine headaches ?Currently not in exacerbation patient is on propranolol did continue 4. Class III obesity with BMI of 40 ?Weight loss advised 5. DVT prophylaxis ?Did encourage ambulation Charges/Coding Visit Charges OBSV E&M: 63291 Initial observation care L3
[2021-07-20] MEDS: MethylPREDNISolone 125 MG/2 ML Vial IV (09:46)
[2021-07-20 10:09] LABS: Absolute Lymphocyte Count 2.26 X10^3/uL (0.83-4.51); Absolute Neutrophil Count 9.2 X10^3/uL (2.0-7.7); Basophil# 0.07 X10^3/uL; Basophil% 0.5 % (0-1); Eosinophils% 6.7 % (0-5); Hematocrit 42.6 % (37-47); Hemoglobin 13.9 g/dL (12.0-15.0); Lymphocyte # 2.26 X10^3/ul (0.83-4.51); Lymphocyte % 16.9 % (19-41); Mean Corp Hgb Conc 32.6 g/dL (32-36); Mean Corpuscular Hgb 26.9 pg (27.0-32.0); Mean Corpuscular Volume 82.6 fL (81-99); Mean Platelet Vol. 10.3 fl (6.2-12.0); Monocyte# 0.85 X10^3/uL; Monocyte% 6.4 % (0-10); NRBC Flagged by Analyzer 0 % (0-5); Neutrophil # 9.21 X10^3/uL (2.7-7.7); Neutrophil % 69.1 % (47-70); Platelet Count 484 K/mm3 (150-450); RBC Distribution Width CV 13.4 % (11.6-14.6); RBC Distribution Width SD 40.6 fl (35.1-43.9); Red Blood Count 5.16 M/mm3 (4.2-5.4); White Blood Count 13.4 K/mm3 (4.4-11.0)
[2021-07-20 10:27] LABS: Anion Gap 3 (5-15); BUN 13 mg/dL (7-18); Calcium,Total 9.5 mg/dL (8.5-10.1); Chloride 108 mmol/L (98-107); Creatinine, Serum 0.59 mg/dL (0.55-1.02); EST Glomerular Filtration Rate 126 mL/min (>60); Est Glom Filt Rate - Afr Amer 153 mL/min (>60); Glucose 102 mg/dL (74-106); Potassium 4.2 mmol/L (3.5-5.1); Sodium Level 137 mmol/L (136-145)
--- NOTE | 2021-07-20 10:31 | NURSING ---
not COVID vaccinated
[2021-07-20] MEDS: Acetaminophen 325 MG Tablet 650 MG PO (10:56)
[2021-07-20] MEDS: Rizatriptan Benzoate 10 MG Tablet PO (12:23)
[2021-07-20] MEDS: Gabapentin 400 MG Capsule PO ×2 (14:09→20:38)
--- NOTE | 2021-07-20 14:13 | NURSING ---
Called Rx about magnesium iv order. Medication not on the floor.
[2021-07-20] MEDS: 0.9% Saline Lock 10 ML Syringe IV ×2 (14:49→16:49)
[2021-07-20] MEDS: Ondansetron 4 MG/2 ML Vial IV (16:48)
[2021-07-20] MEDS: Propranolol LA 60 MG Capsule PO (20:38)
[2021-07-20] MEDS: Sertraline 50 MG Tablet 25 MG PO (20:39)
[2021-07-21] MEDS: 0.9% Saline Lock 10 ML Syringe IV ×3 (01:16→10:30)
[2021-07-21 02:25] VITALS: BP 92/76; PULSE 95; RESP 16; TEMP 36.4; O2SAT 96
[2021-07-21] MEDS: Ipratropium/Albuterol Sulfate 3 ML AMPUL.NEB INHALATION ×2 (03:17→06:57)
[2021-07-21 03:18] VITALS: PULSE 91; RESP 16
[2021-07-21 03:19] VITALS: O2SAT 96
[2021-07-21] MEDS: Gabapentin 400 MG Capsule PO (05:08)
[2021-07-21 06:58] VITALS: PULSE 86; RESP 17; O2SAT 93
[2021-07-21 07:50] VITALS: BP 132/71; PULSE 78; RESP 16; TEMP 36.9; O2SAT 94
[2021-07-21] MEDS: Ondansetron 4 MG/2 ML Vial IV (08:03)
[2021-07-21] MEDS: Acetaminophen 325 MG Tablet 650 MG PO (08:03)
--- NOTE | 2021-07-21 08:24 | EX.PCM.CONCC ---
Assessment & Plan Assessment/Plan (1) Asthma exacerbation: PLAN: RECOMMENDATIONS: 1. Continue scheduled bronchodilators and steroids. 2. Anticipate need for prednisone taper at discharge. 3. Encourage incentive spirometer use and mobilize patient as tolerated. 4. Perform walking oximetry prior to consideration for discharge home. 5. At discharge, please provide a prescription for a combination ICS/LABA such as Symbicort, Dulera, Breo or Advair. 6. The patient should follow-up in the pulmonary medicine clinic within 2 weeks of discharge. IMPRESSIONS: 1. Asthma with exacerbation The patient was initially mated to the hospital with symptoms concerning for an acute asthma exacerbation. Although the patient reported being diagnosed with asthma a multitude of years ago, she is not currently on any form of a maintenance inhaler regimen, nor does she follow with a home security professional on an outpatient basis. She has not able to identify any specific triggers. Her chest imaging was unremarkable. Therefore, it is certainly plausible that the patient's exacerbation may have been triggered by a viral etiology or potentially due to inadequate treatment with a maintenance inhaler. This is now the patient's second hospitalization for an asthma exacerbation in the last year. I agree with continuing scheduled bronchodilators and steroids. I would strongly recommend that the patient be discharged home on a combination ICS/LABA such as Symbicort, Dulera, Breo or Advair, depending on insurance coverage. Ideally, the patient needs to follow-up in the pulmonary medicine clinic within 2 weeks. Once she has completed a prednisone taper, baseline pulmonary function studies can be completed. In addition, once she is off of prednisone, I would recommend that we recheck a CBC with differential, IgE, ANCA and RAST profile. 2. Hypertension/morbid obesity Complicates care, management, recovery and prognosis. Continue home medications as indicated. Weight loss is recommended. This note was generated with [employer] software. It may contain incorrect words, spelling, and punctuation that were not noted in checking the note before signing. HPI Consult Data Date of Consult: 07/21/21 HPI Narrative Reason for Consultation: Asthma exacerbation HPI Narrative: The patient is a 30-year-old female, with a history as outlined below, who presented to the emergency department on July 20 with worsening shortness of breath. The patient reported that she was diagnosed with asthma a multitude of years ago, but has never been evaluated by a home security professional. In fact, her prior PCP, who is managing her asthma, retired and she is currently scheduled to follow-up with a new primary care provider next week. She does believe that her symptoms are brought on by the recent weather change. Nevertheless, she is unable to identify any specific triggers that lead to decompensation in her breathing quality. The patient was also admitted to the hospital and treated for an asthma exacerbation in March 2021. The patient is a non-smoker. At the present time, she only has access to an albuterol rescue inhaler, which on average she utilizes 2-3 times per week. This does provide symptomatic relief. She is not currently on a maintenance inhaler. The patient does admit that she has a multitude of animals that she keeps pets in her home environment including guinea pigs, rabbits, 3 cats and 3 dogs. On presentation to the emergency department, the patient was noted to be afebrile and hemodynamically stable. She was maintaining appropriate oxygen saturations on room air. Initial laboratory evaluation revealed a mildly elevated white blood cell count of 13,000. Platelet count was elevated at 484,000. Chemistry profile was unremarkable. Plain film chest x-ray revealed no acute cardiopulmonary process. The patient was admitted to the hospital for presumptive asthma exacerbation and placed on scheduled bronchodilators and IV steroids. Covid rapid antigen and influenza testing were both negative. [facility] Medical History (Updated 07/20/21 @ 10:43 by Elicia Arnold) Anxiety Arthritis Asthma Migraines Tonsillectomy planned Home Medications gabapentin 400 mg PO TID 10/04/16 [History Last Taken 07/20/21] albuterol sulfate [ProAir HFA] 1 - 2 puff INHALATION Q6H PRN PRN 03/22/18 [History Last Taken 07/20/21] eletriptan [Relpax] 40 mg PO .X1 PRN 03/22/18 [History Last Taken Unknown] naratriptan [Amerge] 2.5 mg PO PRN PRN 03/22/18 [History Last Taken Unknown] rizatriptan 10 mg PO .X1 PRN 03/22/18 [History Last Taken Unknown] sumatriptan succinate [Imitrex] 100 mg PO .X1 PRN 03/22/18 [History Last Taken Unknown] acetaminophen 500 mg PO Q4H PRN PRN udc 03/24/18 [Rx Last Taken Unknown] ibuprofen 800 mg PO TID PRN PRN 02/28/19 [History Last Taken Unknown] propranolol 60 mg PO BID 04/30/19 [History Last Taken 07/20/21] venlafaxine 75 mg PO DAILY 04/30/19 [History Last Taken 07/20/21] ondansetron 4 mg PO Q8H PRN PRN #10 tab 11/07/19 [Rx Last Taken Unknown] cholecalciferol (vitamin D3) 125 mcg PO DAILY 03/31/21 [History Last Taken 07/20/21] hydrochlorothiazide 12.5 mg PO DAILY 03/31/21 [History Last Taken 07/20/21] melatonin 10 mg PO QHS 03/31/21 [History Last Taken 07/19/21] meloxicam 15 mg PO DAILY 03/31/21 [History Last Taken 07/20/21] sertraline 25 mg PO QHS 03/31/21 [History Last Taken 07/19/21] lisinopril 10 mg PO DAILY 04/01/21 [History Last Taken 07/20/21] ubrogepant [Ubrelvy] 50 mg PO BID 07/20/21 [History Last Taken Unknown] Allergy/AdvReac Type Severity Reaction Status Date / Time metoclopramide [From Reglan] AdvReac severe Verified 07/20/21 10:29 anxious prochlorperazine AdvReac severe Verified 07/20/21 10:29 [From Compazine] anxious Family History Mother Thyroid cancer Skin cancer Hypertension Surgical History (Updated 07/20/21 @ 10:43 by Elicia Arnold) History of appendectomy S/P cholecystectomy S/P left knee arthroscopy tubes clamped Social History Smoking Status: Never smoker alcohol intake: never ROS Constitutional Constitutional: Denies chills, fatigue or fever(s) Eyes Eyes: Denies blurry vision or change in vision ENT HEENT: Denies dizziness, dysphagia, headache(s) or nasal congestion Cardiovascular Cardiovascular: Reports chest pain and dyspnea Respiratory/Chest Respiratory/Chest: Reports chest tightness and wheezing; Denies cough Gastrointestinal Gastrointestinal: Denies abdominal pain, diarrhea, nausea or vomiting Genitourinary Genitourinary: Denies difficulty urinating Musculoskeletal Musculoskeletal: Denies arthralgias, back pain or joint pain Integumentary Integumentary: Denies lesions, rash or skin ulcer Neurologic Neurologic: Denies abnormal gait or abnormal speech Psychiatric Psychiatric: Denies anxiety or depression Endocrine Endocrinology: Denies fatigue, polydipsia or polyuria Hematologic/Lymphatic Hematologic/Lymphatic: Denies easy bleeding or easy bruising Physical Exam Const alert, oriented x3 and no apparent distress General Appearance: cooperative Nutritional Appearance: morbidly obese HEENT normocephalic, head/scalp atraumatic and moist oral mucous membranes Eyes PERRL, EOMs intact bilaterally and conjunctivae normal Neck full ROM and supple General: trachea midline Chest inspection of chest normal Resp normal respiratory effort Effort and Inspection: able to speak in complete sentences Auscultation: Negative for rales, rhonchi or wheezes Cardio regular rate and regular rhythm GI normal to inspection, nondistended, normoactive bowel sounds Extremity no clubbing, cyanosis or edema Skin no rashes or lesions noted Neuro CN's II-XII intact bilaterally, moves all extremities and no focal motor deficits Psych cooperative and affect normal Lab / Micro Data Result Diagrams: 07/20/21 05:55 07/20/21 09:50 Labs: Laboratory Results - last 24 hr 07/20/21 05:55: WBC 13.4 H, RBC 5.16, Hgb 13.9, Hct 42.6, MCV 82.6, MCH 26.9 L, MCHC 32.6, RDW Std Deviation 40.6, RDW Coeff of Brenda 13.4, Plt Count 484 H, MPV 10.3, Immature Gran % (Auto) 0.400, Neut % (Auto) 69.1, Lymph % (Auto) 16.9 L, [place] % (Auto) 6.4, Eos % (Auto) 6.7 H, Baso % (Auto) 0.5, Absolute Neuts (auto) 9.2 H, Absolute Lymphs (auto) 2.26, Nucleated RBC % 0 07/20/21 09:50: Sodium 137, Potassium 4.2, Chloride 108 H, Carbon Dioxide 26.0, Anion Gap 3 L, BUN 13, Creatinine 0.59, Estim Creat Clear Calc 120.40, Est GFR (MDRD) Af Amer 153, Est GFR (MDRD) Non-Af 126, BUN/Creatinine Ratio 22.0 H, Glucose 102, Calcium 9.5 Micro: Microbiology 07/20/21 07:27 Nasal Secretion SARS-CoV-2 Antigen (Rapid) - Final 07/20/21 07:27 Mucosa - Nose Influenza Types A,B Direct FA (KULDEEP) - Final Charges/Coding Visit Charges Inpatient E&M: 51925 Init Hosp L3
[2021-07-21 09:10] LABS: D-Dimer Quantitative (DVT/PE) < 0.27 FEU/ug/m (0.27-0.49)
--- NOTE | 2021-07-21 09:59 | DS.PCM_ITS ---
Providers Date of Admission: 07/20/21 Primary Care Physician: No Primary Care Phys Consultations 07/21/21 08:21 Consult: Item Processing Clerk / Pulmonary Medicine Routine Consulting Provider: Pulmonary Medicine elvia Villa Reason for Consult: asthma EMERGENT Consult: No MD Notified: Yes Date Notified: 07/21/21 Time Notified: 08:21 Method of Notification: Verbal Reason For Visit: ACUTE ASTHMA EXACERBATION Diagnosis Discharge Diagnosis (1) Asthma exacerbation: Status: Acute Code(s): J45.901 - Unspecified asthma with (acute) exacerbation Medications at Discharge Home Medications gabapentin 400 mg PO TID 10/04/16 albuterol sulfate [ProAir HFA] 1 - 2 puff INHALATION Q6H PRN PRN 03/22/18 eletriptan [Relpax] 40 mg PO .X1 PRN 03/22/18 acetaminophen 500 mg PO Q4H PRN PRN udc 03/24/18 propranolol 60 mg PO BID 04/30/19 venlafaxine 75 mg PO DAILY 04/30/19 ondansetron 4 mg PO Q8H PRN PRN #10 tab 11/07/19 cholecalciferol (vitamin D3) 125 mcg PO DAILY 03/31/21 hydrochlorothiazide 12.5 mg PO DAILY 03/31/21 melatonin 10 mg PO QHS 03/31/21 meloxicam 15 mg PO DAILY 03/31/21 sertraline 25 mg PO QHS 03/31/21 lisinopril 10 mg PO DAILY 04/01/21 Ubrelvy 50 mg PO BID 07/20/21 budesonide-formoterol [Symbicort] 1 inh INHALATION BID #10.2 g 07/21/21 prednisone 10 mg PO DAILY #30 tab 07/21/21 Hospital Course Summary of Care Provided Minutes Spent on Discharge: 35 Hospital Course: Patient is a 30-year-old lady presented with shortness of breath 1. Acute asthma exacerbation -admitted to regular nursing floor where patient is being managed with bron chodilator treatment as well as steroids in addition to supplemental oxygen. Patient apparently did not respond to treatment initiated in the ED. Her progress to be monitored by response to bronchodilator therapy as well as continuous pulse oximeter -Patient was seen in consultation by Dr. Aguirre with pulmonary medicine patient was sent home with maintenance inhaled corticosteroid as well as tapering dose of steroids 2. Essential hypertension ?Patient home meds 3. Migraine headaches ?Currently not in exacerbation patient is on propranolol did continue 4. Class III obesity with BMI of 40 ?Weight loss advised 5. DVT prophylaxis ?Did encourage ambulation Physical Exam Narrative GENERAL: cooperative HEENT: Atraumatic; EYES; Anicteric, Normal Conjunctiva NECK; supple, normal thyroid, RESPIRATORY: diminished to auscultation no wheezes CARDIOVASCULAR: Regular S1 S2, GI: soft, normoactive bowel sounds, : No Renal angle tenderness; EXTREMITIES: No edema, no clubbing, MUSCULOSKELETAL: no muscle wasting NEURO: Awake; no lateralizing signs. SKIN: No Rash PSYCH; Flat affect Weight / BMI Weight Weight: 106 kg Body Mass Index (BMI) 40.1 ABG / Lab / Microbiology Data Result Diagrams: 07/20/21 05:55 07/20/21 09:50 Laboratory: Laboratory Results - last 24 hr 07/20/21 05:55: WBC 13.4 H, RBC 5.16, Hgb 13.9, Hct 42.6, MCV 82.6, MCH 26.9 L, MCHC 32.6, RDW Std Deviation 40.6, RDW Coeff of Brenda 13.4, Plt Count 484 H, MPV 10.3, Immature Gran % (Auto) 0.400, Neut % (Auto) 69.1, Lymph % (Auto) 16.9 L, [place] % (Auto) 6.4, Eos % (Auto) 6.7 H, Baso % (Auto) 0.5, Absolute Neuts (auto) 9.2 H, Absolute Lymphs (auto) 2.26, Nucleated RBC % 0 07/20/21 09:50: Sodium 137, Potassium 4.2, Chloride 108 H, Carbon Dioxide 26.0, Anion Gap 3 L, BUN 13, Creatinine 0.59, Estim Creat Clear Calc 120.40, Est GFR ( MDRD) Af Amer 153, Est GFR (MDRD) Non-Af 126, BUN/Creatinine Ratio 22.0 H, Gl ucose 102, Calcium 9.5 07/21/21 08:34: D-Dimer Quant (PE/DVT) < 0.27 L Microbiology: Microbiology 07/20/21 07:27 Nasal Secretion SARS-CoV-2 Antigen (Rapid) - Final 07/20/21 07:27 Mucosa - Nose Influenza Types A,B Direct FA (KULDEEP) - Final D/C Instructions Discharge Diet: No restrictions Discharge Activity: Return to Normal Activity Call your doctor if you observe: Fever of 101 or Higher, Shortness of breath, Fainting spells and Chest pain Meaningful Use Info Meaningful Use Diagnoses (Choose all that apply): None applicable Discharge Plan Admission Admit Date/Time: 07/20/21 09:24 Attending Provider: Sarthak Ibarra Primary Care Provider: Care Physician,No Primary Consulting Providers: James Castano ; Fam Aguirre ; Brisa Desouza NURSING HOME ADMISSIONS DIRECTOR Discharge Orders/Prescriptions Prescriptions: New budesonide-formoterol [Symbicort] 80-4.5 mcg/actuation HFA aerosol inhaler 1 inh inhalation BID Qty: 10.2 RF: 0 prednisone 10 mg tablet 10 mg PO DAILY Qty: 30 RF: 0 Continued gabapentin 100 MG capsule 400 mg PO TID RF: 0 eletriptan [Relpax] 40 MG tablet 40 mg PO .X1 PRN RF: 0 albuterol sulfate [ProAir HFA] 1 PUFF inhaler 1 - 2 puff inhalation Q6H PRN PRN (Reason: Asthma) RF: 0 acetaminophen 160 MG/5 ML suspension 500 mg PO Q4H PRN PRN (Reason: Mild-Moderate Pain (1-5/10)) RF: 0 venlafaxine 75 MG tablet 75 mg PO DAILY RF: 0 propranolol 60 MG capsule 60 mg PO BID RF: 0 ondansetron 4 MG tablet 4 mg PO Q8H PRN PRN (Reason: Nausea) Qty: 10 RF: 0 meloxicam 15 mg Tablet 15 mg PO DAILY RF: 0 hydrochlorothiazide 12.5 mg capsule 12.5 mg PO DAILY RF: 0 sertraline 25 mg Tablet 25 mg PO QHS RF: 0 melatonin 10 mg Tablet 10 mg PO QHS RF: 0 cholecalciferol (vitamin D3) 125 mcg (5,000 unit) Tablet 125 mcg PO DAILY RF: 0 lisinopril 10 mg Tablet 10 mg PO DAILY RF: 0 Ubrelvy 50 mg tablet 50 mg PO BID RF: 0 Discontinued sumatriptan succinate [Imitrex] 100 MG tablet 100 mg PO .X1 PRN RF: 0 rizatriptan 10 MG tablet 10 mg PO .X1 PRN RF: 0 naratriptan [Amerge] 2.5 MG tablet 2.5 mg PO PRN PRN (Reason: Migraine Symptoms) RF: 0 ibuprofen 800 MG tablet 800 mg PO TID PRN PRN (Reason: Pain Or Fever) RF: 0 Referrals / Follow Up: Fam Aguirre DO [STAFF PHYSICIAN] - Within 1 Month Care Physician,No Primary [Primary Care Provider] - Disposition Disposition (needs filled in before D/C Order can be placed): Home, Self Care Charges/Coding Visit Charges OBSV E&M: 82928 Observation care discharge
[2021-07-21] MEDS: hydroCHLOROthiazide 12.5mg 12.5 MG PO (10:25)
[2021-07-21] MEDS: Cholecalciferol (VIT D3) 25 MCG TABLET (1,000 UNITS) 125 MCG PO (10:25)
[2021-07-21] MEDS: Meloxicam 15 MG Tablet PO (10:25)
[2021-07-21] MEDS: Lisinopril 10 MG Tablet PO (10:26)
[2021-07-21] MEDS: Propranolol LA 60 MG Capsule PO (10:26)
[2021-07-21 10:55] VITALS: BP 127/81; PULSE 94; RESP 16; TEMP 36.7; O2SAT 97
== END 2021-07-21 11:02 | disposition home or self-care (01) ==
LOC: ED 09:22 → MS3 10:27
PROVIDERS: Admitting Provider Internal Medicine; Emergency Provider Emergency Medicine; Visit Provider Internal Medicine
DX: J45.901 Unspecified asthma with (acute) exacerbation (principal); E66.01 Morbid (severe) obesity due to excess calories; Z68.41 Body mass index [BMI] 40.0-44.9, adult; G43.909 Migraine, unspecified, not intractable, without status migrainosus; I10 Essential (primary) hypertension; Z79.899 Other long term (current) drug therapy; M19.90 Unspecified osteoarthritis, unspecified site; F41.9 Anxiety disorder, unspecified
CPT/HCPCS: 71045; 80048; 85025; 85379; 87426; 87804; 93005; 94640; 94667; 94668; 96365; 96375; 96376; 99218; 99251; 99285; A4216; G0378; G0463; J2405; J3475

== ENCOUNTER 2021-09-30 16:41 | Emergency (ER) | payer OTHER, SELFPAY ==
[2021-09-30 16:43] VITALS: BP 147/107; PULSE 119; RESP 18; TEMP 36.2; O2SAT 98; BMI 41.8
--- NOTE | 2021-09-30 17:21 | EX.ED.VIS.HA ---
HPI History of Present Illness Chief Complaint: Headache Detail of Chief Complaint: A frontal headache with monocular blurred vision, left Informant: patient Onset/Context/Timing Onset: Yesterday Context: Gradual Timing: Continuous Quality -Headache: Positive for Throbbing Location: Bifrontal Current Severity: Severe Maximum Severity: Severe Worsened by: Light, sound Relieved by: Nothing Associated Symptoms/Injury Associated Symptoms: Positive for Nausea and Blurred Vision (Left only); Negative for Fever, Vomiting, Sore Throat, Sinus Pressure, Numbness, Tingling, Preceding Aura, Photophobia and Visual Loss Injury - REGALADO: Negative for Direct Trauma Narrative Narrative: Patient is a 31-year-old woman with a BMI of 41.9 who presents with by frontal headache that started yesterday's been continuous in spite of taking her migraine medication. She has blurred vision left eye. She also endorses photophobia and sonophobia. She does endorse nausea without vomiting. She complains of neck pain but does not have neck stiffness. She did have a work-up for her migraine 5 years ago which was negative. She denies fever, chills night sweats. She denies viral infectious symptoms. She presents from work because the headache has been continuous and has gotten worse with time Prior similar symptoms: No Recent Illness/Hospitalization: No PFSH PFSH Medical History Anxiety Arthritis Asthma Migraines Tonsillectomy planned Home Medications gabapentin 400 mg PO TID 10/04/16 [History Last Taken 07/20/21] albuterol sulfate [ProAir HFA] 1 - 2 puff INHALATION Q6H PRN PRN 03/22/18 [History Last Taken 07/20/21] eletriptan [Relpax] 40 mg PO .X1 PRN 03/22/18 [History Last Taken Unknown] acetaminophen 500 mg PO Q4H PRN PRN udc 03/24/18 [Rx Last Taken Unknown] propranolol 60 mg PO BID 04/30/19 [History Last Taken 07/20/21] venlafaxine 150 mg PO DAILY 04/30/19 [History Last Taken 07/20/21] ondansetron 4 mg PO Q8H PRN PRN #10 tab 11/07/19 [Rx Last Taken Unknown] cholecalciferol (vitamin D3) 125 mcg PO DAILY 03/31/21 [History Last Taken 07/20/21] hydrochlorothiazide 12.5 mg PO DAILY 03/31/21 [History Last Taken 07/20/21] melatonin 10 mg PO QHS 03/31/21 [History Last Taken 07/19/21] meloxicam 15 mg PO DAILY 03/31/21 [History Last Taken 07/20/21] sertraline 25 mg PO QHS 03/31/21 [History Last Taken 07/19/21] lisinopril 10 mg PO DAILY 04/01/21 [History Last Taken 07/20/21] Ubrelvy 50 mg PO BID 07/20/21 [History Last Taken Unknown] budesonide-formoterol [Symbicort] 1 inh INHALATION BID #10.2 g 07/21/21 [Rx Last Taken Unknown] prednisone 10 mg PO DAILY #30 tab 07/21/21 [Rx Last Taken Unknown] Allergy/AdvReac Type Severity Reaction Status Date / Time metoclopramide [From Reglan] AdvReac severe Verified 09/30/21 16:43 anxious prochlorperazine AdvReac severe Verified 09/30/21 16:43 [From Compazine] anxious Family History Mother Thyroid cancer Skin cancer Hypertension Surgical History History of appendectomy S/P cholecystectomy S/P left knee arthroscopy tubes clamped Social History (Updated 09/30/21 @ 17:[address] Kwame Bonilla MD) household members: spouse Smoking Status: Never smoker alcohol intake: never substance use type: does not use ROS ROS ED Constitutional Constitutional ED: Denies chills, fever(s), subjective, sweats or weight loss Eyes Eyes: Reports blurry vision left; Denies change in vision or diplopia ENT ENT ED: Denies ear pain, rhinorrhea or sore throat Cardiovascular Cardiovascular: Denies chest pain, palpitations or racing heartbeat Respiratory/Chest Respiratory/Chest: Denies cough, dyspnea or sputum Gastrointestinal Gastrointestinal: Reports nausea; Denies abdominal pain, diarrhea or vomiting Genitourinary Genitourinary ED: Denies dysuria, hematuria or urinary frequency Musculoskeletal Musculoskeletal: Reports neck pain; Denies arthralgias, back pain or myalgias Integumentary Denies Abrasions or rash Neurologic Neurologic: Reports headache(s); Denies paresthesias or weakness Psychiatric Psychiatric: Denies anxiety Endocrine Endocrinology: Denies polydipsia, polyphagia or polyuria EXAM Physical Exam Const Vital Signs: 09/30/21 16:43 09/30/21 19:26 09/30/21 19:52 Temperature 97.1 F L Temperature Source Temporal Pulse Rate 119 H Respiratory Rate 18 18 Blood Pressure 147/107 H 153/100 H Blood Pressure Mean 120 117 Pulse Ox 98 98 Oxygen Delivery Method Room Air Room Air Positive well nourished, well developed and obese General Appearance ED: well developed; Negative for cyanotic, diaphoretic, NAD or pallor Nutritional Appearance: obese HEENT Reports normocephalic, TM's clear and moist mucous membranes atraumatic; Negative for temporal artery tenderness or vesicular rash Face and Sinus: Negative for sinus tenderness Tympanic Membrane ED: Yes TM's clear Eyes PERRL and EOMs intact bilaterally Eyes Narrative: There is no papilledema. Cup-to-disc ratio is normal. Venous pulsations noted bilaterally. General Eye ED: Negative for pale conjunctiva or scleral icterus Neck no lymphadenopathy, supple, no meningeal signs and no JVD General: Negative for tenderness Resp normal respiratory effort and clear to auscultation bilaterally Cardio regular rate, regular rhythm, S1 normal heart sound, S2 normal heart sound and no murmurs GI non-tender and non-distended Auscultation: normoactive bowel sounds Palpation: soft Back/Spine no CVA tenderness Back/Spine Narrative: No meningismal findings General Back: Negative for tenderness Cervical Spine: Negative for cervical spine tenderness Lumbar Spine / Lower Back: Negative for lumbar spinal tenderness Extremity normal to inspection, full ROM and normal capillary refill General Extremety ED: Negative for edema or tenderness General Extremity: Negative for edema Neuro oriented x3, CN's II-XII intact bilaterally and no sensory deficits noted [place] Coma Scale: document GCS findings Spontaneous Obeys Commands Oriented 15 Sensorium / Orientation: awake and alert Speech: speech normal Motor Exam: strength 5/5 throughout Psych mental status grossly normal Skin General Skin Exam: elasticity normal; Negative for jaundice or pallor Lesions: no lesions Rashes: no rashes Nails: normal MDM MDM MDM Narrative Medical decision making narrative: Patient with status ocular migraine. Doubt subarachnoid hemorrhage. Doubt viral illness. She was treated with IV Toradol and Benadryl. She was given Zofran for nausea since she has a dystonic reaction to Reglan and Compazine. I was informed that patient reported little to no improvement. 1 g of Keppra was ordered IV piggyback. After infusion I was informed that she had no improvement. Verbal order for 1 g of Solu-Medrol was given. Will reassess patient at 2215. Patient's headache resolved after 1 g of Solu-Medrol. Discharge Plan Triage Chief Complaint: Headache ED Provider: Kwame Bonilla Dx/Rx/DC Orders Clinical Impression: Ocular migraine with status migrainosus, not intractable Instructions: ED, Migraine (Classical) Prescriptions: No Action gabapentin 100 MG capsule 400 mg PO TID RF: 0 eletriptan [Relpax] 40 MG tablet 40 mg PO .X1 PRN RF: 0 albuterol sulfate [ProAir HFA] 1 PUFF inhaler 1 - 2 puff inhalation Q6H PRN PRN (Reason: Asthma) RF: 0 acetaminophen 160 MG/5 ML suspension 500 mg PO Q4H PRN PRN (Reason: Mild-Moderate Pain (1-5/10)) RF: 0 venlafaxine 75 MG tablet 150 mg PO DAILY RF: 0 propranolol 60 MG capsule 60 mg PO BID RF: 0 ondansetron 4 MG tablet 4 mg PO Q8H PRN PRN (Reason: Nausea) Qty: 10 RF: 0 meloxicam 15 mg Tablet 15 mg PO DAILY RF: 0 hydrochlorothiazide 12.5 mg capsule 12.5 mg PO DAILY RF: 0 sertraline 25 mg Tablet 25 mg PO QHS RF: 0 melatonin 10 mg Tablet 10 mg PO QHS RF: 0 cholecalciferol (vitamin D3) 125 mcg (5,000 unit) Tablet 125 mcg PO DAILY RF: 0 lisinopril 10 mg Tablet 10 mg PO DAILY RF: 0 Ubrelvy 50 mg tablet 50 mg PO BID RF: 0 budesonide-formoterol [Symbicort] 80-4.5 mcg/actuation HFA aerosol inhaler 1 inh inhalation BID Qty: 10.2 RF: 0 prednisone 10 mg tablet 10 mg PO DAILY Qty: 30 RF: 0 Primary Care Provider: Hermes Amanda Referrals: Hermes Amanda MD [Primary Care Provider] - 5-7 Days Disposition Disposition: Home, Self Care
[2021-09-30] MEDS: Ketorolac 15 MG/ML Vial IV (17:39)
[2021-09-30] MEDS: DiphenhydrAMINE 50 MG/ML Syringe 25 MG IV (17:39)
[2021-09-30] MEDS: Ondansetron 4 MG/2 ML Vial IV (17:39)
[2021-09-30 19:26] VITALS: RESP 18; O2SAT 98
[2021-09-30] MEDS: levETIRAcetam IV 1,000 MG/100 ML BAG 400 MG IV (19:48)
[2021-09-30 19:52] VITALS: BP 153/100
[2021-09-30 22:45] VITALS: BP 126/78; PULSE 79; RESP 18
== END 2021-09-30 22:46 | disposition home or self-care (01) ==
PROVIDERS: Emergency Provider Emergency Medicine; PCP Family Medicine; Visit Provider Emergency Medicine
DX: G43.901 Migraine, unspecified, not intractable, with status migrainosus (principal); J45.909 Unspecified asthma, uncomplicated; M19.90 Unspecified osteoarthritis, unspecified site; F41.9 Anxiety disorder, unspecified; Z79.899 Other long term (current) drug therapy
CPT/HCPCS: 96365; 96375; 99283; A4216; J2405; J2930

== ENCOUNTER → 2022-02-19 | Outpatient (CLI) | payer BC, SELFPAY ==
--- NOTE | 2022-02-19 12:35 | STRESSREP ---
Stress Test Report Date: 02/19/2022 Procedure: Exercise tolerance test Indications: Chest pain Consent: Per the patient Procedure: The patient exercised on a James protocol for 6 minutes and 30 seconds completing stage II achieving a peak heart rate of 170 bpm (90% predicted maximal heart rate) with a peak blood pressure 172/78 mmHg and a peak MET capacity of approximately 8.4 MET's. The baseline ECG demonstrated normal sinus rhythm. The peak exercise ECG demonstrated no ischemic changes. No cardiac dysrhythmias noted pretest, during exercise or in recovery. The functional capacity was considered low. The patient complained of some chest discomfort at peak exercise. The examination was discontinued secondary to target heart rate being achieved and patient's complaints of chest pain. Impression: 1. Technically adequate (percent predicted maximal heart rate greater than 85%) exercise tolerance test 2. Peak exercise ECG with no ischemic changes. Negative EKG for ischemia 3. Complaints of chest pain during exercise. This note was generated with [employer] dictation software. It may contain incorrect words, spelling, and punctuation that were not noted in checking the note before signing.
== END | disposition home or self-care (01) ==
PROVIDERS: PCP Family Medicine; Referring Provider Family Medicine; Visit Provider Family Medicine
DX: R00.2 Palpitations (principal); R07.9 Chest pain, unspecified
CPT/HCPCS: 93017

== ENCOUNTER 2022-05-26 17:10 | Emergency (ER) | payer BC, SELFPAY ==
[2022-05-26 17:11] VITALS: BP 154/96; PULSE 99; RESP 18; TEMP 36.8; O2SAT 98; BMI 41.1
--- NOTE | 2022-05-26 17:52 | CT_ITS ---
STUDY: CT BRAIN WITHOUT CONTRAST REASON FOR EXAM: Female, 31 years old. High-grade headache for 5 days. Controlled hypertension. RADIATION DOSAGE (If Supplied By Facility): CTDIvol = ( 44.99 ) mGy, DLP = ( 796.11 ) mGycm TECHNIQUE: Transaxial CT imaging of the brain was performed without administration of intravenous contrast material. Individualized dose optimization techniques were used for this CT. COMPARISON: October 16, 2019. FINDINGS: Normal soft tissue structures. Normal calvarium. Normal size ventricles and extra-axial spaces for the patient''s age. Normal white matter tracts of the cerebral hemispheres. Normal basal ganglia and thalami. Normal brainstem. Normal cerebellum. There is no intracranial hemorrhage. There are no findings of an acute ischemic infarction. Mucous retention cyst in the right maxillary sinus. CT/Brain/Head without Contrast IMPRESSION: 1. Mucous retention cyst right maxillary sinus. 2. No evidence of acute intracranial or calvarial abnormality. There is no change in the intracranial findings when compared to the prior study. Electronically Signed: Jesus Jauregui DO at 18:40 EST Reading Location ID and State: [facility] Tel [phone], Service support ,
--- NOTE | 2022-05-26 17:54 | EDS_ITS ---
HPI History of Present Illness Chief Complaint: Headache Narrative Narrative: 31-year-old female past medical history of migraine headaches states this is day 5 of one of her migraines. She is on multiple medications for it. She states she took her Ubrelvy, but has not gotten relief and currently rates her headache an 8 out of 10. She was concerned because this migraine headache is different from others in the sense that it started out on the left side like it usually does but has turned into a frontal headache. She endorses photophobia, nausea and vomiting that is typical of her headaches, but she is more confused this time. Additionally, she states that she called her neurologist and was told to come to the emergency department because they can get it CT quicker.. She denies any paresthesias, no exacerbating or alleviating factors. She has had to come to the emergency department in the past but states she cannot tolerate Reglan or Compazine because of the anxiety that it causes and that she usually gets Toradol, Benadryl, and Zofran. [facility] Medical History Anxiety Arthritis Asthma Migraines Tonsillectomy planned Home Medications gabapentin 100 mg capsule 400 mg PO TID MIGRAINS 10/04/16 [History Last Taken 07/20/21] albuterol sulfate 90 mcg/actuation aerosol inhaler (ProAir HFA) 1 - 2 puff inhalation Q6H PRN PRN Asthma 03/22/18 [History Last Taken 07/20/21] eletriptan 40 mg tablet (Relpax) 40 mg PO .X1 PRN MIGRAINES 03/22/18 [History Last Taken Unknown] acetaminophen 160 mg/5 mL (5 mL) oral suspension 500 mg (15.625 mL) PO Q4H PRN PRN Mild-Moderate Pain (1-5/10) 03/24/18 [Rx Last Taken Unknown] propranolol 60 mg capsule,24 hr,extended release 60 mg PO BID migraines 04/30/19 [History Last Taken 07/20/21] venlafaxine 75 mg tablet 150 mg PO DAILY 04/30/19 [History Last Taken 07/20/21] ondansetron 4 mg disintegrating tablet 4 mg PO Q8H PRN PRN Nausea #10 tabs 11/07/19 [Rx Last Taken Unknown] cholecalciferol (vitamin D3) 125 mcg (5,000 unit) tablet 125 mcg PO DAILY 03/31/21 [History Last Taken 07/20/21] hydrochlorothiazide 12.5 mg capsule 12.5 mg PO DAILY 03/31/21 [History Last Taken 07/20/21] melatonin 10 mg tablet 10 mg PO QHS 03/31/21 [History Last Taken 07/19/21] meloxicam 15 mg tablet 15 mg PO DAILY 03/31/21 [History Last Taken 07/20/21] sertraline 25 mg tablet 25 mg PO QHS 03/31/21 [History Last Taken 07/19/21] lisinopril 10 mg tablet 10 mg PO DAILY 04/01/21 [History Last Taken 07/20/21] ubrogepant 50 mg tablet (Ubrelvy) 50 mg PO BID 07/20/21 [History Last Taken Unknown] budesonide-formoterol HFA 80 mcg-4.5 mcg/actuation aerosol inhaler (Symbicort) 1 inh inhalation BID #10.2 grams 07/21/21 [Rx Last Taken Unknown] prednisone 10 mg tablet 10 mg PO DAILY #30 tabs 07/21/21 [Rx Last Taken Unknown] Allergy/AdvReac Type Severity Reaction Status Date / Time metoclopramide [From Reglan] AdvReac severe Verified 05/26/22 17:10 anxious prochlorperazine AdvReac severe Verified 05/26/22 17:10 [From Compazine] anxious Family History Mother Thyroid cancer Skin cancer Hypertension Surgical History History of appendectomy S/P cholecystectomy S/P left knee arthroscopy tubes clamped Social History household members: spouse Smoking Status: Never smoker alcohol intake: never substance use type: does not use ROS ROS ED ROS Narrative Constitutional: No fever, no chills. HEENT: No sore throat. No neck pain. No loss of vision. No rhinorrhea. Cardiovascular: No chest pain. No palpitations. No pedal edema. Respiratory: No cough, no shortness of breath. Abdominal: No abdominal pain. Positive nausea and vomiting Genitourinary: No dysuria. No hematuria. Musculoskeletal: No myalgias. No arthralgias. Neurologic: Positive migraine headaches. No dizziness. No lightheadedness. Reported confusion, difficulty concentrating. States head is burning. Skin: No rash. No change in color. Psychiatric: No depression. No anxiety. EXAM Physical Exam Narrative Exam Narrative: Afebrile. Vital signs noted. HEENT: Normocephalic. Atraumatic. PERRL, EOMI. Neck soft and supple. No point tenderness or step off. Cardiovascular: Regular rate and rhythm with intermittent tachycardia. No murmurs, rubs, or gallops appreciated. Respiratory: No tachypnea. Lungs clear to auscultation bilaterally. Gastrointestinal: Abdomen soft, nontender, with normoactive bowel sounds. No rebound or guarding. Neurological: Awake. Alert. Oriented x3. Nonfocal, nonlateralizing. Skin: No rash. Normal color. No pallor. Musculoskeletal: No pedal edema. Full range of motion extremities. Const Vital Signs: 05/26/22 17:11 05/26/22 18:43 Temperature 98.2 F Temperature Source Temporal Pulse Rate 99 80 Respiratory Rate 18 17 Blood Pressure 154/96 H 148/86 H Blood Pressure Mean 115 106 Pulse Ox 98 98 Oxygen Delivery Method Room Air Room Air MDM MDM MDM Narrative Medical decision making narrative: CT was obtained of the brain secondary to her stating that this migraine headache was different. As she states there has been a change in her migraine symptoms, I obtained a CBC, BMP, and a urine and serum . She will be administered a bolus of IV fluids, normal saline 1 L intravenously along with Toradol, Zofran, and Benadryl like she states she usually gets. I reviewed her laboratory work and her CBC shows slightly elevated white count of 12.3 but she has a chronic leukocytosis, hemoglobin normal at 12.8, platelet count normal at 448. I reviewed her electrolyte panel/BMP which shows normal sodium of 139, normal BUN of 12 and normal creatinine of 0.7. I reviewed her serum test which is negative. I reviewed the radiology report of her brain CT which shows no evidence of acute intracranial abnormality, no change in intracranial findings when compared to the prior study. Upon repeat examination, she states she feels slightly improved. As she has allergies/intolerances to Reglan and Compazine I do not have any further medications to help with her migraine headache. I feel she be discharged safely home with follow-up to her neurologist. She is to call tomorrow. Return instructions to the emergency department were reviewed. Disposition is discharged home in stable condition. Lab Data Attestation: I reviewed the patient's lab results. Labs: Laboratory Results - last 24 hr 05/26/22 05/26/22 05/26/22 18:00 18:00 18:00 WBC 12.3 H RBC 4.75 Hgb 12.8 Hct 38.6 MCV 81.3 MCH 26.9 L MCHC 33.2 RDW Std Deviation 39.4 RDW Coeff of Brenda 13.2 Plt Count 448 MPV 10.0 Immature Gran % (Auto) 0.300 Neut % (Auto) 67.3 Lymph % (Auto) 21.8 Storey % (Auto) 6.8 Eos % (Auto) 3.3 Baso % (Auto) 0.5 Absolute Neuts (auto) 8.3 H Absolute Lymphs (auto) 2.67 Nucleated RBC % 0 Sodium 139 Potassium 3.6 Chloride 106 Carbon Dioxide 28.0 Anion Gap 5 BUN 12 Creatinine 0.70 Estim Creat Clear Calc 100.55 Est GFR (MDRD) Af Amer 124 Est GFR (MDRD) Non-Af 103 BUN/Creatinine Ratio 17.1 Glucose 95 Calcium 9.1 Serum , Qual NEGATIVE Radiography Diagnostic Testing: Clinical Impression(s) from Imaging Studies Brain CT 05/26/22 17:52 IMPRESSION: 1. Mucous retention cyst right maxillary sinus. 2. No evidence of acute intracranial or calvarial abnormality. There is no change in the intracranial findings when compared to the prior study. Electronically Signed: Jesus Jauregui DO at 18:40 EST Reading Location ID and State: [address] [place] [address] Tel [phone], Service support , Discharge Plan Triage Chief Complaint: Headache ED Provider: Manny Harry Dx/Rx/DC Orders Clinical Impression: Migraine headache, Nausea Instructions: ED, Migraine (Classical) Prescriptions: No Action gabapentin 100 MG capsule 400 mg PO TID Label Comments: eletriptan [Relpax] 40 MG tablet 40 mg PO .X1 PRN albuterol sulfate [ProAir HFA] 1 PUFF inhaler 1 - 2 puff inhalation Q6H PRN PRN (Reason: Asthma) acetaminophen 160 MG/5 ML suspension 500 mg PO Q4H PRN PRN (Reason: Mild-Moderate Pain (-09/22)) 0RF venlafaxine 75 MG tablet 150 mg PO DAILY propranolol 60 MG capsule 60 mg PO BID ondansetron 4 MG tablet 4 mg PO Q8H PRN PRN (Reason: Nausea) Qty: 10 0RF meloxicam 15 mg Tablet 15 mg PO DAILY hydrochlorothiazide 12.5 mg capsule 12.5 mg PO DAILY sertraline 25 mg Tablet 25 mg PO QHS melatonin 10 mg Tablet 10 mg PO QHS cholecalciferol (vitamin D3) 125 mcg (5,000 unit) Tablet 125 mcg PO DAILY lisinopril 10 mg Tablet 10 mg PO DAILY Ubrelvy 50 mg tablet 50 mg PO BID Rx Instructions: take 1 tab at onset of migraine may repeat 1 tab in 2 hrs. budesonide-formoterol [Symbicort] 80-4.5 mcg/actuation HFA aerosol inhaler 1 inh inhalation BID Qty: 10.2 0RF prednisone 10 mg tablet 10 mg PO DAILY Qty: 30 0RF Rx Instructions: 40 mg p.o. daily x3 days 30 mg p.o. daily x3 days 20 mg p.o. daily x3 days 10 mg p.o. daily x3 days Primary Care Provider: Hermes Amanda Referrals: Hermes Amanda MD [Primary Care Provider] - As soon as possible Activity Restrictions/Additional Instructions: Call your neurologist tomorrow, and tell them that your CT scanning of the brain was negative. You can see if they want to add a different medication to your regime for your migraines. Disposition Disposition: Home, Self Care
[2022-05-26] MEDS: 0.9% Normal Saline 1,000 ML 1000 ML IV (18:02)
[2022-05-26] MEDS: Ketorolac 30 MG/ML Syringe IV (18:02)
[2022-05-26] MEDS: DiphenhydrAMINE 50 MG/ML Syringe 25 MG IV (18:02)
[2022-05-26] MEDS: Ondansetron 4 MG/2 ML Vial IV (18:03)
[2022-05-26 18:23] LABS: Absolute Lymphocyte Count 2.67 X10^3/uL (0.83-4.51); Absolute Neutrophil Count 8.3 X10^3/uL (2.0-7.7); Basophil# 0.06 X10^3/uL; Basophil% 0.5 % (0-1); Eosinophils% 3.3 % (0-5); Hematocrit 38.6 % (37-47); Hemoglobin 12.8 g/dL (12.0-15.0); Lymphocyte # 2.67 X10^3/ul (0.83-4.51); Lymphocyte % 21.8 % (19-41); Mean Corp Hgb Conc 33.2 g/dL (32-36); Mean Corpuscular Hgb 26.9 pg (27.0-32.0); Mean Corpuscular Volume 81.3 fL (81-99); Monocyte# 0.83 X10^3/uL; Monocyte% 6.8 % (0-10); NRBC Flagged by Analyzer 0 % (0-5); Neutrophil # 8.26 X10^3/uL (2.7-7.7); Neutrophil % 67.3 % (47-70); Platelet Count 448 K/mm3 (150-450); RBC Distribution Width CV 13.2 % (11.6-14.6); RBC Distribution Width SD 39.4 fl (35.1-43.9); Red Blood Count 4.75 M/mm3 (4.2-5.4); White Blood Count 12.3 K/mm3 (4.4-11.0)
[2022-05-26 18:39] LABS: Anion Gap 5 (5-15); BUN 12 mg/dL (7-18); BUN/Creat Ratio 17.1 RATIO (10-20); Calcium,Total 9.1 mg/dL (8.5-10.1); Chloride 106 mmol/L (98-107); EST Glomerular Filtration Rate 103 mL/min (>60); Est Glom Filt Rate - Afr Amer 124 mL/min (>60); Estimated Creatinine Clearance 100.55 ml/min; Glucose 95 mg/dL (74-106); Potassium 3.6 mmol/L (3.5-5.1); Sodium Level 139 mmol/L (136-145)
[2022-05-26 18:43] VITALS: BP 148/86; PULSE 80; RESP 17; O2SAT 98
[2022-05-26 18:57] LABS: Internal QC Validated? YES +Cl - CLEAR BKGD; Pregnancy, Serum, hCG Quali. NEGATIVE Negative
[2022-05-26 20:46] VITALS: BP 152/75; RESP 14
== END 2022-05-26 20:47 | disposition home or self-care (01) ==
PROVIDERS: Emergency Provider Emergency Medicine; PCP Family Medicine; Visit Provider Emergency Medicine
DX: G43.909 Migraine, unspecified, not intractable, without status migrainosus (principal); R11.0 Nausea; F41.9 Anxiety disorder, unspecified; J45.909 Unspecified asthma, uncomplicated
CPT/HCPCS: 70450; 80048; 84703; 85025; 96361; 96374; 96375; 99283; J7030; A4216; J2405

== ENCOUNTER 2023-12-26 18:00 | Outpatient (RCR) | payer BC, SELFPAY | END 2023-12-26 19:00 | disposition home or self-care (01) | LOC: PT 18:00 | PROVIDERS: PCP Family Medicine; Referring Provider Nurse Practitioner Women's Health; Visit Provider Nurse Practitioner Women's Health | DX: R10.2 Pelvic and perineal pain (principal) ==

== ENCOUNTER 2024-03-20 12:42 | Emergency (ER) | payer BC, SELFPAY ==
[2024-03-20 12:44] VITALS: BP 143/104; PULSE 112; RESP 18; TEMP 36.2; O2SAT 99; BMI 40.0
--- NOTE | 2024-03-20 14:21 | ED.VIS.FEGU ---
HPI HPI - Female History of Present Illness Chief Complaint: Female C/O PFSH PFSH Medical History Anxiety Arthritis Asthma Migraines Tonsillectomy planned Home Medications ?Medication ?Instructions ?Recorded ?Last Taken ?Type gabapentin 100 mg capsule 400 mg PO TID MIGRAINS 10/04/16 07/20/21 History albuterol sulfate 90 mcg/actuation 1 - 2 puff inhalation Q6H PRN PRN 03/22/18 07/20/21 History aerosol inhaler (ProAir HFA) Asthma eletriptan 40 mg tablet (Relpax) 40 mg PO .X1 PRN MIGRAINES 03/22/18 Unknown History acetaminophen 160 mg/5 mL (5 mL) 500 mg (15.625 mL) PO Q4H PRN PRN 03/24/18 Unknown Rx oral suspension Mild-Moderate Pain (1-5/10) venlafaxine 75 mg tablet 150 mg PO DAILY 04/30/19 07/20/21 History ondansetron 4 mg disintegrating 4 mg PO Q8H PRN PRN Nausea #10 tabs 11/07/19 Unknown Rx tablet cholecalciferol (vitamin D3) 125 125 mcg PO DAILY 03/31/21 07/20/21 History mcg (5,000 unit) tablet hydrochlorothiazide 12.5 mg capsule 12.5 mg PO DAILY 03/31/21 07/20/21 History melatonin 10 mg tablet 10 mg PO QHS 03/31/21 07/19/21 History meloxicam 15 mg tablet 15 mg PO DAILY 03/31/21 07/20/21 History sertraline 25 mg tablet 25 mg PO QHS 03/31/21 07/19/21 History lisinopril 10 mg tablet 10 mg PO DAILY 04/01/21 07/20/21 History ubrogepant 50 mg tablet (Ubrelvy) 50 mg PO BID 07/20/21 Unknown History budesonide-formoterol HFA 80 1 inh inhalation BID #10.2 grams 07/21/21 Unknown Rx mcg-4.5 mcg/actuation aerosol inhaler (Symbicort) prednisone 10 mg tablet 10 mg PO DAILY #30 tabs 07/21/21 Unknown Rx atogepant 60 mg tablet 60 mg PO DAILY 12/14/23 Unknown History chlorzoxazone 500 mg tablet 500 mg PO TID 12/14/23 Unknown History cyclobenzaprine 10 mg tablet 10 mg PO TID 12/14/23 Unknown History pantoprazole 40 mg tablet,delayed 40 mg PO DAILY 12/14/23 Unknown History release propranolol 80 mg capsule,24 80 mg PO DAILY 12/14/23 Unknown History hr,extended release rimegepant 75 mg disintegrating 75 mg PO ONCE PRN 12/14/23 Unknown History tablet (Nurtec ODT) tramadol 50 mg tablet 50 mg PO TID PRN 12/14/23 Unknown History Allergy/AdvReac Type Severity Reaction Status Date / Time metoclopramide (From Reglan) AdvReac severe Verified 03/20/24 12:43 anxious prochlorperazine (From AdvReac severe Verified 03/20/24 12:43 Compazine) anxious Family History Mother Thyroid cancer Skin cancer Hypertension Surgical History History of appendectomy S/P cholecystectomy S/P left knee arthroscopy tubes clamped Social History household members: spouse Smoking Status: Never smoker alcohol intake: never substance use type: does not use EXAM Physical Exam Const Vital Signs: 03/20/24 12:44 03/20/24 14:43 03/20/24 16:00 Temperature 97.2 F L Temperature Source Temporal Pulse Rate 112 H 86 78 Respiratory Rate 18 18 19 H Blood Pressure 143/104 H 139/97 H 153/84 H Blood Pressure Mean 117 111 107 Pulse Ox 99 98 98 Oxygen Delivery Method Room Air MDM MDM MDM Narrative Medical decision making narrative: HISTORY OF PRESENT ILLNESS: 33-year-old female presents with pelvic pain. No she had IUD placed on 03/09 (11 days ago). Notes pelvic pain since. Vaginal bleeding since. States she is Perseris. On that time. Denies lightheadedness dizziness. Denies vomiting but notes nausea. Denies fever. Notes history of multiple abdominal surgeries including tubal ligation, appendectomy and cholecystectomy. Denies constipation or diarrhea. She is not sexually active. Denies urinary complaints. REVIEW OF SYSTEMS: Pertinent positives: Pelvic pain, vaginal bleeding Pertinent negatives: Urinary complaints, PHYSICAL EXAM: Nursing triage notes reviewed, Vital signs reviewed Constitutional: please see mdm HENT: MMM Eyes: Pupils equal round and reactive to light, Extraocular muscles intact Neck: No stridor, no JVD, full neck ROM Lungs: Clear to auscultation, No wheezing or rales. No increased work of breathing, no conversational dyspnea, no accessory muscle use, no nasal flaring. No respiratory distress noted Heart: Regular rate and rhythm, No murmurs, No rubs and No gallops, 2+ distal pulses (radial, femoral, posterior tibial) in all extremities Abdomen: Soft, there is no tenderness, rigidity, rebound or guarding, no obvious peritoneal signs, no palpable pulsatile abdominal masses, no auscultated abdominal bruit : No CVAT Extremities: No edema Neuro: No focal neurological deficits, cranial nerves II through XII intact, 5/5 strength in all extremities. Intact sensation to light touch in all extremities, 2+ reflexes bilateral patella tendons. Normal gait. No ataxia. Skin: No rash or lesions noted MEDICAL DECISION MAKING: Chief Complaint: Pelvic pain External records reviewed: Reviewed CT scan abdomen pelvis in 2020 and this showed n acute appendicitis. No recent ROLLER notes noted Factors affecting care: History of migraines, GERD Social determinants of health: none History obtained from others: none Consults: none [facility] Narrative: Patient was initially hemodynamically stable, tachycardic rate 112, otherwise afebrile and nontoxic-appearing. I considered the following differential diagnosis: Uterine rupture, irritation from IUD, UTI, pyelonephritis, pelvic inflammatory disease, , ectopic I obtained a broad lab and imaging workup to further elucidate the etiology of the patient's complaints. I obtained pelvic ultrasound to rule out uterine perforation, urine is rule out , UTI urine to rule out UTI, labs rule out signs of systemic inflammation dehydration or kidney dysfunction ALL IMAGES (IF OBTAINED) HAVE BEEN PERSONALLY REVIEWED AND INTERPRETED BY MYSELF. Transvaginal ultrasound shows a position of IUD CBC showed leukocytosis suggestive of systemic inflammation, no anemia or thrombocytopenia BMP without evidence of significant electrolyte abnormalities, no anion gap, no acute kidney injury. Quant hCG negative making and ectopic less likely Urinalysis shows no evidence of urinary inflammation suggestive of UTI The synthesis of the patient's history, physical exam, labs images suggest likely pain secondary to menstruation and IUD. Will recommend ROLLER follow-up for IUD removal. No indication for emergent removal at this time. Strict return precautions were discussed The patient and/or family, caregivers express understanding. The patient and/or family, caregivers agrees with the plan. Shared decision making: I will have a discussion with the patient and or visitors regarding risk/benefits of further testing or admission. They will be made aware of of the risk/benefits inherent in this decision they will be given the opportunity to voice understanding. Total critical care time today provided was at least 0 minutes. This excludes separately billable procedures. Critical care time (if documented) is secondary to the patient having high probability of clinically significant/life threatening deterioration in the patient's condition which required my urgent intervention. Impression: 1. Pelvic pain 2. Leukocytosis sign 3. IUD in place Dispo: Discharge home This note was generated with [employer] dictation software. It may contain incorrect words, spelling, and punctuation that were not noted in review of the chart prior to signing. Lab Data Labs: Laboratory Results - last 24 hr 03/20/24 03/20/24 13:46 15:00 WBC 11.3 H RBC 4.88 Hgb 12.9 Hct 40.6 MCV 83.2 MCH 26.4 L MCHC 31.8 L RDW Std Deviation 41.0 RDW Coeff of Brenda 13.5 Plt Count 523 H MPV 10.1 Immature Gran % (Auto) 0.500 Neut % (Auto) 62.0 Lymph % (Auto) 28.0 [place] % (Auto) 5.1 Eos % (Auto) 3.9 Baso % (Auto) 0.5 Absolute Neuts (auto) 7.0 Absolute Lymphs (auto) 3.17 Nucleated RBC % 0 Sodium 138 Potassium 3.7 Chloride 107 Carbon Dioxide 24.0 Anion Gap 8 BUN 22 H Creatinine 0.63 Estim Creat Clear Calc 150.64 Est GFR (MDRD) Af Amer 141 Est GFR (MDRD) Non-Af 116 BUN/Creatinine Ratio 35.1 H Glucose 80 Calcium 9.5 HCG, Quant < 1 Urine Color Yellow Urine Clarity Clear Urine pH 6.0 Ur Specific Welches 1.015 Urine Protein Negative Urine Glucose (UA) Normal Urine Ketones Negative Urine Occult Blood Negative Urine Nitrite Negative Urine Bilirubin Negative Urine Urobilinogen Normal Ur Leukocyte Esterase Negative Urine RBC 0-5 SEEN Urine WBC 0-5 SEEN Ur Squamous Epith Cells 5-10 SEEN Urine Bacteria RARE Urine Mucus 0 SEEN Radiography Diagnostic Testing: Clinical Impression(s) from Imaging Studies Transvaginal US 03/20/24 14:52 IMPRESSION: Normal uterus status post IUD placement Small right ovarian cyst measuring 1.8 1.6 x 1.5 cm Incidental finding of small hyperechoic echogenic density within the left ovary of indeterminate etiology or clinical significance. This can be further assessed with MRI or follow-up pelvic ultrasound if clinically warranted Electronically Signed: Lai Chauhan MD at 16:23 EST Reading Location ID and State: [address] [place] [address] Tel , Service support , Discharge Plan Triage Chief Complaint: Female C/O ED Provider: Yovani Escobedo Dx/Rx/DC Orders Prescriptions: No Action atogepant 60 mg tablet 60 mg PO DAILY chlorzoxazone 500 mg tablet 500 mg PO TID cyclobenzaprine 10 mg tablet 10 mg PO TID pantoprazole 40 mg tablet,delayed release (DR/EC) 40 mg PO DAILY propranolol 80 mg capsule,extended release 24 hr 80 mg PO DAILY Nurtec ODT 75 mg tablet,disintegrating 75 mg PO ONCE PRN Rx Instructions: as a single dose tramadol 50 mg tablet 50 mg PO TID PRN gabapentin 100 MG capsule 400 mg PO TID Patient Comments: eletriptan [Relpax] 40 MG tablet 40 mg PO .X1 PRN albuterol sulfate [ProAir HFA] 1 PUFF inhaler 1 - 2 puff inhalation Q6H PRN PRN (Reason: Asthma) acetaminophen 160 MG/5 ML suspension 500 mg PO Q4H PRN PRN (Reason: Mild-Moderate Pain (1-5/10)) 0RF venlafaxine 75 MG tablet 150 mg PO DAILY ondansetron 4 MG tablet 4 mg PO Q8H PRN PRN (Reason: Nausea) Qty: 10 0RF meloxicam 15 mg Tablet 15 mg PO DAILY hydrochlorothiazide 12.5 mg capsule 12.5 mg PO DAILY sertraline 25 mg Tablet 25 mg PO QHS melatonin 10 mg Tablet 10 mg PO QHS cholecalciferol (vitamin D3) 125 mcg (5,000 unit) Tablet 125 mcg PO DAILY lisinopril 10 mg Tablet 10 mg PO DAILY Ubrelvy 50 mg tablet 50 mg PO BID Rx Instructions: take 1 tab at onset of migraine may repeat 1 tab in 2 hrs. budesonide-formoterol [Symbicort] 80-4.5 mcg/actuation HFA aerosol inhaler 1 inh inhalation BID Qty: 10.2 0RF prednisone 10 mg tablet 10 mg PO DAILY Qty: 30 0RF Rx Instructions: 40 mg p.o. daily x3 days 30 mg p.o. daily x3 days 20 mg p.o. daily x3 days 10 mg p.o. daily x3 days Primary Care Provider: Hermes Amanda Referrals: Hermes Amanda MD [Primary Care Provider] - Print Language: Indonesian
[2024-03-20 14:43] VITALS: BP 139/97; PULSE 86; RESP 18; O2SAT 98
--- NOTE | 2024-03-20 14:52 | US_ITS ---
STUDY: ULTRASOUND OF THE FEMALE PELVIS - COMPLETE REASON FOR EXAM: Female, 33 years old. pelvic pain recent IUD placement LMP: TECHNIQUE: Transvaginal TECHNICAL QUALITY: Adequate. COMPARISON: None. FINDINGS: The uterus is anteverted and is in a midline position. The uterus measures 10.1 x 5.8 x 4.9 cm. Normal uterine cervix. The endometrium measures 7 mm in thickness, and is hyperechoic. There is no demonstrated endometrial mass. There is no demonstrated myometrial mass. I.U.D. - The patient does have an I.U.D. in satisfactory position The right ovary is visualized. The right ovary measures 3.7 x 2.5 x 2.7 cm. There is a cyst measuring 1.8 x 1.6 x 1.5 cm There is no visualized right adnexal mass or complex lesion. There is normal arterial and normal venous vascularity. The left ovary is visualized. The left ovary measures 2.7 x 2.3 x 2 cm. There is no left ovarian cyst. There is a very small echogenic density in the left ovary measuring 1.4 x 1.4 cm of uncertain etiology or clinical significance . There is normal arterial and normal venous vascularity. There is no fluid in the cul-de-sac. The pre void volume of the bladder was ml. The post void volume of the bladder was ml. Polycystic ovary disease: No. US/Transvaginal Non- IMPRESSION: Normal uterus status post IUD placement Small right ovarian cyst measuring 1.8 1.6 x 1.5 cm Incidental finding of small hyperechoic echogenic density within the left ovary of indeterminate etiology or clinical significance. This can be further assessed with MRI or follow-up pelvic ultrasound if clinically warranted Electronically Signed: Lai Chauhan MD at 16:23 EST ,
[2024-03-20] MEDS: Ketorolac 15 MG/ML Vial IV (15:05)
[2024-03-20 15:13] LABS: Mucous, Urine 0 SEEN /hpf (<or=2+)
[2024-03-20 15:25] LABS: Color, Urine Yellow (Yellow); Glucose, Dipstick Normal (Normal); Ketone-Dipstick Negative (Negative); Leukocyte Esterase-Dipstick Negative /ul (Negative); Nitrite-Dipstick Negative (Negative); Occult Blood-Urine Negative /ul (Negative); Protein-Dipstick Negative (Negative); Specific Gravity, Urine 1.015 (1.002-1.030); Urine Bilirubin Dipstick Negative (Negative); Urine Clarity Clear (Clear); Urine Urobilinogen Normal (Normal)
[2024-03-20 15:46] LABS: Absolute Lymphocyte Count 3.17 X10^3/uL (0.83-4.51); Basophil# 0.06 X10^3/uL; Basophil% 0.5 % (0-1); Eosinophil# 0.44 X10^3/uL; Eosinophils% 3.9 % (0-5); Hematocrit 40.6 % (37-47); Hemoglobin 12.9 g/dL (12.0-15.0); Lymphocyte # 3.17 X10^3/ul (0.83-4.51); Mean Corp Hgb Conc 31.8 g/dL (32-36); Mean Corpuscular Hgb 26.4 pg (27.0-32.0); Mean Corpuscular Volume 83.2 fL (81-99); Mean Platelet Vol. 10.1 fl (6.2-12.0); Monocyte# 0.58 X10^3/uL; Monocyte% 5.1 % (0-10); NRBC Flagged by Analyzer 0 % (0-5); Neutrophil # 7.01 X10^3/uL (2.7-7.7); Platelet Count 523 K/mm3 (150-450); RBC Distribution Width CV 13.5 % (11.6-14.6); Red Blood Count 4.88 M/mm3 (4.2-5.4); White Blood Count 11.3 K/mm3 (4.4-11.0)
[2024-03-20 16:00] VITALS: BP 153/84; PULSE 78; RESP 19; O2SAT 98
[2024-03-20 16:01] LABS: Anion Gap 8 (5-15); BUN 22 mg/dL (7-18); BUN/Creat Ratio 35.1 RATIO (10-20); Calcium,Total 9.5 mg/dL (8.5-10.1); Chloride 107 mmol/L (98-107); Creatinine, Serum 0.63 mg/dL (0.55-1.02); EST Glomerular Filtration Rate 116 mL/min (>60); Est Glom Filt Rate - Afr Amer 141 mL/min (>60); Estimated Creatinine Clearance 150.64 ml/min; Glucose 80 mg/dL (74-106); Potassium 3.7 mmol/L (3.5-5.1); Sodium Level 138 mmol/L (136-145)
[2024-03-20 16:02] LABS: Red Blood Cells-Urine 0-5 SEEN /hpf (0-5); Squamous Epithelial Cells - UA 5-10 SEEN /hpf (5-10); White Blood Cells 0-5 SEEN /hpf (0-5)
[2024-03-20 16:03] LABS: Bacteria RARE /hpf (None Seen)
[2024-03-20 16:04] LABS: hCG Titer Quant., Serum < 1 mIU/mL (1-3)
[2024-03-20 17:00] VITALS: BP 148/88; PULSE 78; RESP 19; TEMP 36.8; O2SAT 97
== END 2024-03-20 17:08 | disposition home or self-care (01) ==
PROVIDERS: Emergency Provider Emergency Medicine; PCP Family Medicine; Visit Provider Emergency Medicine
DX: R10.2 Pelvic and perineal pain (principal); Z97.5 Presence of (intrauterine) contraceptive device; D72.829 Elevated white blood cell count, unspecified; F41.9 Anxiety disorder, unspecified; K21.9 Gastro-esophageal reflux disease without esophagitis; M19.90 Unspecified osteoarthritis, unspecified site; G43.909 Migraine, unspecified, not intractable, without status migrainosus; J45.909 Unspecified asthma, uncomplicated; Z90.49 Acquired absence of other specified parts of digestive tract; Z79.899 Other long term (current) drug therapy
CPT/HCPCS: 76830; 80048; 81001; 84702; 85025; 96374; 99282; A4216

== ENCOUNTER 2024-08-06 07:59 | Day surgery (SDC) | payer BC, SELFPAY ==
--- NOTE | 2024-08-02 16:12 | PAT.ANESEVAL ---
Pre-Assessment Diagnosis/Proposed Procedure Planned Operative Procedure(s): COLONOSCOPY Anesthesia History Anesthesia History - [employer]: Anesthesia History - [employer] Hx Hospitalization No 08/02/24 09:48 Any Problems With Anesthesia No 08/02/24 09:48 Cholinesterase deficiency No 08/02/24 09:48 You/Your Family Experience No 08/02/24 09:48 fever (hyperthermia) with Relationship Recent Exposure to Contagious No 05/31/19 08:48 Disease Does patient have nerve No 08/02/24 09:48 stimulator Patient instructed to have device shut off --Does patient have Pacemaker or ICD? When Was Last Pacemaker Check QUESTION #4 FULL TEXT: You/Your Family Experience fever (hyperthermia) with Anesthesia Last Oral Intake Last Oral intake: Last Oral Intake NPO since Meds taken in AM with sips of water? Meds patient instructed to take am of surgery PONV PONV - [employer]: PONV - [employer] Female Yes 08/02/24 09:48 HX of Motion Sickness Yes 08/02/24 09:48 HX of N/V After Surgery No 08/02/24 09:48 Non-Smoker Yes 08/02/24 09:48 Duration of Surgery greater No 08/02/24 09:48 than 60 minutes Number of Risk Factors 3 08/02/24 09:48 PONV Score Moderate Risk 08/02/24 09:48 Height & Weight Height & Weight: Anesthesia: Height & Weight Height 5 ft 4 in 03/20/24 12:44 Respiratory Assessment Respiratory Assessment - [employer]: Respiratory Tract Infection Hx - [employer] Hx Respiratory Tract Infection No 08/02/24 09:48 STOP Sleep Apnea STOP Sleep Apnea - [employer]: STOP Sleep Apnea - [employer] Hx Hypertension Yes: NO MEDS PCP D/C'D 08/02/24 09:48 Hx Sleep Apnea No 08/02/24 09:48 CPAP BIPAP Do you snore loudly (louder No 08/02/24 09:48 than talking or can be heard Do you often feel tired/ No 08/02/24 09:48 fatigued/ sleepy during daytime? Has anyone observed you stop No 08/02/24 09:48 breathing during sleep? STOP Results Negative 08/02/24 09:48 QUESTION #5 FULL TEXT : Do you snore loudly (louder than talking or can be heard through closed doors)? Tobacco Use History Tobacco Use History - [employer]: Tobacco Use History - [employer] Tobacco Use Smoking Status Never smoker 08/02/24 09:48 Hx Tobacco Use No 08/02/24 09:48 Years Smoking Packs Smoked per Day Smoking Cessation Date was within the last 15 years Hx Smoking Cessation Date Hx Smoking Cessation Counseling Hematologic Medial History Hematologic Hx - [employer]: Hematologic Medical Hx - television [employer] Hx of Blood Transfusion No 08/02/24 09:48 Hx of Transfusion in last 3 No 08/02/24 09:48 Months Date of Last Transfusion (if within last 3 months) Ever experience any problems No 08/02/24 09:48 with transfusion(s)? Specify any problems Hx of Preganancy in last 3 No 08/02/24 09:48 Months Nurse Filling Out Transfusion VCHRISTIN 08/02/24 09:48 & Questions: Date: 08/02/24 08/02/24 09:48 Time: 09:50 08/02/24 09:48 Patient unable to answer at this time (ie. confused, unrespo /Reproduction History /Reproductive History - [employer]: /Reproductive Hx- [employer] Hx Now No 08/02/24 09:48 Gestational Age (in weeks): EDC: Hx Hx Para Hx Section SAB No 08/02/24 09:48 PFSH Medical History (Updated 08/02/24 @ 09:48 by Dora Stahl) Wears glasses Anemia Back pain Injury of head and neck Difficulty swallowing Gastric reflux Non-smoker Sleep apnea History of echocardiogram History of stress test Hypertension Cardiology follow-up encounter History of irregular heartbeat Anxiety Arthritis Asthma Tonsillectomy planned Migraines Home Medications ?Medication ?Instructions ?Recorded ?Last Taken ?Type gabapentin 100 mg capsule 400 mg PO TID MIGRAINS 10/04/16 07/20/21 History albuterol sulfate 90 mcg/actuation 1 - 2 puff inhalation Q6H PRN PRN 03/22/18 07/20/21 History aerosol inhaler (ProAir HFA) Asthma venlafaxine 75 mg tablet 150 mg PO DAILY 04/30/19 07/20/21 History cholecalciferol (vitamin D3) 125 125 mcg PO DAILY 03/31/21 07/20/21 History mcg (5,000 unit) tablet melatonin 10 mg tablet 10 mg PO QHS PRN sleep 03/31/21 07/19/21 History ubrogepant 50 mg tablet (Ubrelvy) 50 mg PO BID PRN migraine headache 07/20/21 Unknown History atogepant 60 mg tablet 60 mg PO DAILY 12/14/23 Unknown History chlorzoxazone 500 mg tablet 500 mg PO TID 12/14/23 Unknown History pantoprazole 40 mg tablet,delayed 40 mg PO BID 12/14/23 Unknown History release propranolol 80 mg capsule,24 80 mg PO DAILY 12/14/23 Unknown History hr,extended release rimegepant 75 mg disintegrating 75 mg PO ONCE PRN migraine headache 12/14/23 Unknown History tablet (Nurtec ODT) tramadol 50 mg tablet 50 mg PO TID PRN pain 12/14/23 Unknown History diphenhydramine HCl 25 mg capsule 25 mg PO QHS 08/02/24 Unknown History (Aler-Cap) ergocalciferol (vitamin D2) 1,250 1,250 mcg PO QWEEK 08/02/24 Unknown History mcg (50,000 unit) capsule metformin 500 mg tablet,extended 1,000 mg PO BID 08/02/24 Unknown History release 24 hr ondansetron 4 mg disintegrating 8 mg PO Q8H PRN PRN Nausea 08/02/24 Unknown History tablet topiramate 25 mg tablet 25 mg PO QHS 08/02/24 Unknown History Allergy/AdvReac Type Severity Reaction Status Date / Time metoclopramide (From Reglan) AdvReac severe Verified 08/02/24 09:27 anxious prochlorperazine (From AdvReac severe Verified 08/02/24 09:27 Compazine) anxious Family History Mother Thyroid cancer Skin cancer Hypertension Surgical History (Updated 08/02/24 @ 09:48 by Dora Stahl) History of esophagogastroduodenoscopy (EGD) Hx of tubal ligation Hx of tonsillectomy History of appendectomy S/P cholecystectomy S/P left knee arthroscopy tubes clamped Social History household members: spouse Smoking Status: Never smoker alcohol intake: never substance use type: does not use Audit: Pertinent Findings Pertinent Findings EKG Perinent findings: July 20, 2021. Normal sinus rhythm. Stress test pertinent findings: February 19, 2022. Patient achieved 8.4 METS. Negative EKG for ischemia. Did have some complaints of chest pain during the exercise. Echo (EF%) pertinent findings: June 14, 2024. Ejection fraction 58%. No aortic stenosis noted. Consult pertinent findings: May 14, 2024. Dr. Orellana. 1. Palpitations-patient has had a negative stress test. Check echo (see above) 2. Obstructive sleep apnea-May be contributing to multiple comorbidities. Consider active treatment. Will reevaluate in 3 months. 3. History of hypertension-plan for lifestyle changes including decreasing caffeine and increasing water intake. Regular meals and more fruits and vegetables. If necessary we can add Inderal at a later date. Recommendation Anesthesia Recommendation Anesthesia recommendation: OPTIMIZED for anesthesia
[2024-08-06] VITALS (7 sets, daily range): BP systolic 114–147; BP diastolic 80–98; PULSE 67–89; RESP 16; TEMP 36.6–36.7; O2SAT 95–100; BMI 35.7
--- NOTE | 2024-08-06 08:32 | PCM.HP.STD ---
HPI - General General Date of Admission: 08/06/24 Date of Service: 08/06/24 Chief Complaint: Diarrhea HPI Narrative MARIA ELENA LUA, is a 33 F who presents for the evaluation of diarrhea. Pt has had diarrhea for a around 2 months now multiple times per day. Around the same time, she started metformin for pre diabetes and weight loss. She tells me at first she has diarrhea but her bowels regulated and then started back up. She does not feel it is related. Her PCP ordered stool testing which was unremarkable besides a slight elevation in the calprotectin. Anti diarrheals have been helpful but as soon as she stops them she will continue to have loose stools. Her stools are yellow and orange and she sees what she believes to be pills in it. She is s/p cholecystectomy. She has never had a colonoscopy. 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 SHe was started on pantoprazole 40 mg once a day. She denies any upper GI symptoms like n/v, heartburn or problems swallowing. [facility] Medical History Wears glasses Anemia Back pain Injury of head and neck Difficulty swallowing Gastric reflux Non-smoker Sleep apnea History of echocardiogram History of stress test Hypertension Cardiology follow-up encounter History of irregular heartbeat Anxiety Arthritis Asthma Tonsillectomy planned Migraines Home Medications ?Medication ?Instructions ?Recorded ?Last Taken ?Type gabapentin 100 mg capsule 400 mg PO TID MIGRAINS 10/04/16 07/20/21 History albuterol sulfate 90 mcg/actuation 1 - 2 puff inhalation Q6H PRN PRN 03/22/18 07/20/21 History aerosol inhaler (ProAir HFA) Asthma venlafaxine 75 mg tablet 150 mg PO DAILY 04/30/19 07/20/21 History cholecalciferol (vitamin D3) 125 125 mcg PO DAILY 03/31/21 07/20/21 History mcg (5,000 unit) tablet melatonin 10 mg tablet 10 mg PO QHS PRN sleep 03/31/21 07/19/21 History ubrogepant 50 mg tablet (Ubrelvy) 50 mg PO BID PRN migraine headache 07/20/21 Unknown History atogepant 60 mg tablet 60 mg PO DAILY 12/14/23 Unknown History chlorzoxazone 500 mg tablet 500 mg PO TID 12/14/23 Unknown History pantoprazole 40 mg tablet,delayed 40 mg PO BID 12/14/23 Unknown History release propranolol 80 mg capsule,24 80 mg PO DAILY 12/14/23 08/04/24 History hr,extended release rimegepant 75 mg disintegrating 75 mg PO ONCE PRN migraine headache 12/14/23 Unknown History tablet (Nurtec ODT) tramadol 50 mg tablet 50 mg PO TID PRN pain 12/14/23 Unknown History diphenhydramine HCl 25 mg capsule 25 mg PO QHS 08/02/24 Unknown History (Aler-Cap) ergocalciferol (vitamin D2) 1,250 1,250 mcg PO QWEEK 08/02/24 Unknown History mcg (50,000 unit) capsule metformin 500 mg tablet,extended 1,000 mg PO BID 08/02/24 08/04/24 History release 24 hr ondansetron 4 mg disintegrating 8 mg PO Q8H PRN PRN Nausea 08/02/24 Unknown History tablet topiramate 25 mg tablet 25 mg PO QHS 08/02/24 Unknown History Allergy/AdvReac Type Severity Reaction Status Date / Time metoclopramide (From Reglan) AdvReac severe Verified 08/06/24 08:10 anxious prochlorperazine (From AdvReac severe Verified 08/06/24 08:10 Compazine) anxious Family History Mother Thyroid cancer Skin cancer Hypertension Surgical History History of esophagogastroduodenoscopy (EGD) Hx of tubal ligation Hx of tonsillectomy History of appendectomy S/P cholecystectomy S/P left knee arthroscopy tubes clamped Social History household members: spouse Smoking Status: Never smoker alcohol intake: never substance use type: does not use ROS Constitutional Constitutional: Denies fatigue, fever(s), poor appetite, weight gain or weight loss Gastrointestinal Gastrointestinal: Denies belching, bloating, change in bowel habits, change in stool character, chewing difficulty, coffee ground emesis, constipation, cramping, diarrhea, dyspepsia, dysphagia, early satiety, excessive flatus, fecal incontinence, heartburn, hematemesis, hematochezia, hemorrhoids, loose stools, melena, nausea, odynophagia, rectal bleeding, tenesmus, vomiting or weight changes Vital Signs Vital Signs Vital Signs: 08/06/24 08:13 08/06/24 08:13 Temperature 98.1 F Temperature Source Temporal Pulse Rate 89 Respiratory Rate 16 Respiratory Pattern Normal Blood Pressure 147/98 H Blood Pressure Mean 114 Blood Pressure Source Monitor Blood Pressure Position Semi-Fowlers Blood Pressure Location Right Arm Pulse Ox 100 Oxygen Delivery Method Room Air Weight Weight: 214 lb 11.684 oz Body Mass Index (BMI) 35.7 Physical Exam Const alert, oriented x3, no apparent distress and healthy appearing General Appearance: cooperative GI normal to inspection, nondistended, normoactive bowel sounds, soft to palpation, non-tender and non-distended Percussion: normal to percussion Rectal Exam: deferred Assessment & Plan Assessment/Plan (1) Elevated fecal calprotectin: (2) Diarrhea: (3) Epigastric abdominal pain: PLAN: Assessment and Plan Assessment and Plan (1) Diarrhea: Status: Acute Plan: This is a 33 yo female pt with daily loose stools over the past two months. Work up started by PCP has been largely unremarkable besides a slight elevation in the calprotectin. She will undergo colonoscopy to assess her colon for IBD or other colitis. She is on metformin and I do have concern that it is a side effect of this medication. However, she has had good results with her pre diabetes and weight loss. Will consider discontinuation of metformin pending results of colonoscopy. In the mean time, she will be started on colestipol 1 gram per day to control loose stools. -Colonoscopy -Start colestipol -Consider stopping metformin -f/u after procedure Medications: New colestipol 1 g PO ONCE 60 tabs 1RF
--- NOTE | 2024-08-06 09:00 | COLBX_PTH ---
PATIENT: MARIA ELENA LUA LOC: EN U#:[id number] AGE/SX: 33/F ROOM: RE08/06/[address]: Dr. Salbador Fofana DO : 1990 BED: DIS: 08/06/2024 SPEC #: [id number] RECD: 08/06/24 13:16 STATUS: GLENIS REDenny #: [id number] MICHELLE: 08/06/24 09:[address]: Salbador Fofana DEPT: SURGICAL PATHOLOGY RECD BY: Rui Gray ENTERED: 08/06/24 13:17 SP TYPE: COLON BX OT DR: Dr. Hermes Amanda MD Tissues: A - Ileum, NOS B - COLON BIOPSY Procedures: Surgery Specimen Level IV HEADER OPERATION: Colonoscopy with biopsies PRE-OP DIAGNOSIS: Diarrhea TISSUE SUBMITTED: A- Terminal ileum biopsy, B- Random colon biopsy MICROSCOPIC DIAGNOSIS A. TERMINAL ILEUM, TERMINAL ILEUM BIOPSY: -Negative for dysplasia -Small intestinal biopsy with prominent reactive lymphoid follicles B. RANDOM COLON, RANDOM COLON BIOPSY: -Colonic mucosa with reactive lymphoid follicles -No cryptitis, crypt abscesses, or dysplasiaNilton Nath MD, 08/12/24 MICROSCOPIC DESCRIPTION Slides are reviewed. GROSS DESCRIPTION Specimen A. Received in formalin labeled Maria Elena Lua and designated biopsy terminal ileum, are four cisse tissue fragments aggregating to 0.7 x 0.6 x 0.2 cm. Totally submitted in one cassette.Specimen B. Received in formalin labeled Maria Elena Lua, and designated biopsy random colon, are multiple cisse tissue fragments aggregating to 1.1 x 0.9 x 0.2 cm. Totally submitted in one cassette. JUDI 08/06/2024 CPT:59056t8, TC:4
--- NOTE | 2024-08-06 09:12 | PCM.PRE.AN2 ---
ASA Classification* ASA Classification ASA Classification: 2 Assessment & Plan Anesthesia* Anesthesia Assessment Anesthesia Assessment: Discussed sedation and/or anesthesia options, risks, benefits, and alternatives with patient/parents/legal guardian/POA. Questions invited. The patient/parents/legal guardian/POA seems to understand and agrees to proceed with anesthesia plan. Reviewed the physical assessment, medical history, allergy history and patient home medications list prior to surgery/procedure/anesthetic and documented any changes. Performed airway and anesthesia risk assessments. Anesthesia Type Anesthesia Type: MAC History Source History Obtained from:: Patient and Chart Anesthesia Focused Assessment* Temperature: 98.1 F Pulse Rate: 89 Blood Pressure: 147/98 Respiratory Rate: 16 Pulse Ox: 100 Oxygen Delivery Method: Room Air Airway Assessment Mouth opens: >3 cm Mallampati Score: II Teeth Condition: Missing (Patient has several missing teeth. Rest are tight.) Neck Range of motion (ROM): Full ROM Focused Labs Anesthesia Preop lab: CBC WBC 11.3 K/mm3 (4.4-11.0) H 03/20/24 13:46 03/20/24 RBC 4.88 M/mm3 (4.2-5.4) 03/20/24 13:46 03/20/24 Hgb 12.9 g/dL (12.0-15.0) 03/20/24 13:46 03/20/24 Hct 40.6 % (37-47) 03/20/24 13:46 03/20/24 Plt Count 523 K/mm3 (150-450) H 03/20/24 13:46 03/20/24 CHEMISTRY Potassium 3.7 mmol/L (3.5-5.1) 03/20/24 13:46 03/20/24 Sodium 138 mmol/L (136-145) 03/20/24 13:46 03/20/24 BUN 22 mg/dL (7-18) H 03/20/24 13:46 03/20/24 Creatinine 0.63 mg/dL (0.55-1.02) 03/20/24 13:46 03/20/24 Glucose 80 mg/dL (74-106) 03/20/24 13:46 03/20/24 TSH 1.40 uIU/mL (0.358-3.74) 07/20/13 18:08 07/20/13 COAG PT 13.2 SECONDS (11.7-14.9) 04/03/18 06:05 04/03/18 HCG, Quant < 1 mIU/mL (1-3) 03/20/24 13:46 03/20/24 Urine Test Negative Negative 05/31/19 08:40 05/31/19 Pre-Assessment Diagnosis/Proposed Procedure Planned Operative Procedure(s): COLONOSCOPY Anesthesia History 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 When Was Last Pacemaker Check QUESTION #4 FULL TEXT: You/Your Family Experience fever (hyperthermia) with Anesthesia Last Oral Intake Last Oral intake: Last Oral Intake NPO since 19:00 08/06/24 08:13 Meds taken in AM with sips of No 08/06/24 08:13 water? 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 Female Yes 08/02/24 09:48 HX of Motion Sickness Yes 08/02/24 09:48 HX of N/V After Surgery No 08/02/24 09:48 Non-Smoker Yes 08/02/24 09:48 Duration of Surgery greater No 08/02/24 09:48 than 60 minutes Number of Risk Factors 3 08/02/24 09:48 PONV Score Moderate Risk 08/02/24 09:48 Height & Weight Height & Weight: Anesthesia: Height & Weight Height 5 ft 5 in 08/06/24 08:13 Weight: 97.4 kg 08/06/24 08:13 Body Mass Index (BMI) 35.7 08/06/24 08:13 Respiratory Assessment Respiratory Assessment - secondary education professor: Respiratory Tract Infection Hx - secondary education professor Hx Respiratory Tract Infection No 08/02/24 09:48 STOP Sleep Apnea STOP Sleep Apnea - secondary education professor: STOP Sleep Apnea - secondary education professor Hx Hypertension Yes: NO MEDS PCP D/C'D 08/02/24 09:48 Hx Sleep Apnea No 08/02/24 09:48 CPAP BIPAP Do you snore loudly (louder No 08/02/24 09:48 than talking or can be heard Do you often feel tired/ No 08/02/24 09:48 fatigued/ sleepy during daytime? Has anyone observed you stop No 08/02/24 09:48 breathing during sleep? STOP Results Negative 08/02/24 09:48 QUESTION #5 FULL TEXT : Do you snore loudly (louder than talking or can be heard through closed doors)? Tobacco Use History Tobacco Use History - secondary education professor: Tobacco Use History - secondary education professor Tobacco Use Smoking Status Never smoker 08/02/24 09:48 Hx Tobacco Use No 08/02/24 09:48 Years Smoking Packs Smoked per Day Smoking Cessation Date was within the last 15 years Hx Smoking Cessation Date Hx Smoking Cessation Counseling Hematologic Medial History Hematologic Hx - secondary education professor: Hematologic Medical Hx - product support representative Hx of Blood Transfusion No 08/02/24 09:48 Hx of Transfusion in last 3 No 08/02/24 09:48 Months Date of Last Transfusion (if within last 3 months) Ever experience any problems No 08/02/24 09:48 with transfusion(s)? Specify any problems Hx of Preganancy in last 3 No 08/02/24 09:48 Months Nurse Filling Out Transfusion VCHRISTIN 08/02/24 09:48 & Questions: Date: 08/02/24 08/02/24 09:48 Time: 09:50 08/02/24 09:48 Patient unable to answer at this time (ie. 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 professor: /Reproductive Hx- secondary education professor Hx Now No 08/02/24 09:48 Gestational Age (in weeks): EDC: Hx Hx Para Hx Section SAB No 08/02/24 09:48 PFSH Medical History Wears glasses Anemia Back pain Injury of head and neck Difficulty swallowing Gastric reflux Non-smoker Sleep apnea History of echocardiogram History of stress test Hypertension Cardiology follow-up encounter History of irregular heartbeat Anxiety Arthritis Asthma Tonsillectomy planned Migraines Home Medications ?Medication ?Instructions ?Recorded ?Last Taken ?Type gabapentin 100 mg capsule 400 mg PO TID MIGRAINS 10/04/16 07/20/21 History albuterol sulfate 90 mcg/actuation 1 - 2 puff inhalation Q6H PRN PRN 03/22/18 07/20/21 History aerosol inhaler (ProAir HFA) Asthma venlafaxine 75 mg tablet 150 mg PO DAILY 04/30/19 07/20/21 History cholecalciferol (vitamin D3) 125 125 mcg PO DAILY 03/31/21 07/20/21 History mcg (5,000 unit) tablet melatonin 10 mg tablet 10 mg PO QHS PRN sleep 03/31/21 07/19/21 History ubrogepant 50 mg tablet (Ubrelvy) 50 mg PO BID PRN migraine headache 07/20/21 Unknown History atogepant 60 mg tablet 60 mg PO DAILY 12/14/23 Unknown History chlorzoxazone 500 mg tablet 500 mg PO TID 12/14/23 Unknown History pantoprazole 40 mg tablet,delayed 40 mg PO BID 12/14/23 Unknown History release propranolol 80 mg capsule,24 80 mg PO DAILY 12/14/23 08/04/24 History hr,extended release rimegepant 75 mg disintegrating 75 mg PO ONCE PRN migraine headache 12/14/23 Unknown History tablet (Nurtec ODT) tramadol 50 mg tablet 50 mg PO TID PRN pain 12/14/23 Unknown History diphenhydramine HCl 25 mg capsule 25 mg PO QHS 08/02/24 Unknown History (Aler-Cap) ergocalciferol (vitamin D2) 1,250 1,250 mcg PO QWEEK 08/02/24 Unknown History mcg (50,000 unit) capsule metformin 500 mg tablet,extended 1,000 mg PO BID 08/02/24 08/04/24 History release 24 hr ondansetron 4 mg disintegrating 8 mg PO Q8H PRN PRN Nausea 08/02/24 Unknown History tablet topiramate 25 mg tablet 25 mg PO QHS 08/02/24 Unknown History Allergy/AdvReac Type Severity Reaction Status Date / Time metoclopramide (From Reglan) AdvReac severe Verified 08/06/24 08:10 anxious prochlorperazine (From AdvReac severe Verified 08/06/24 08:10 Compazine) anxious Family History Mother Thyroid cancer Skin cancer Hypertension Surgical History History of esophagogastroduodenoscopy (EGD) Hx of tubal ligation Hx of tonsillectomy History of appendectomy S/P cholecystectomy S/P left knee arthroscopy tubes clamped Social History household members: spouse Smoking Status: Never smoker alcohol intake: never substance use type: does not use Review of Systems (Anesthesia) ROS Narrative System reviewed and no additional complaints, except as documented.
--- NOTE | 2024-08-06 09:40 | OP.COLON_ITS ---
Patient Name: Lou Garay Procedure Date: 08/06/2024 9:08 AM Date of : 1990 Age: 33 Procedure: Colonoscopy Indications: Chronic diarrhea Providers: Salbador Fofana DO Medicines: Monitored Anesthesia Care Patient Profile: This is a 33 year old female. Refer to note in patient chart for documentation of history and physical. Last Colonoscopy: none. The patient's first colonoscopy is today. Complications: No immediate complications. Procedure: Pre-Anesthesia Assessment: - Prior to the procedure, a History and Physical was performed, and patient medications and allergies were reviewed. The patient is competent. The risks and benefits of the procedure and the sedation options and risks were discussed with the patient. All questions were answered and informed consent was obtained. Patient identification and proposed procedure were verified by the physician in the pre-procedure area. Mental Status Examination: alert and oriented. Airway Examination: normal oropharyngeal airway and neck mobility. Respiratory Examination: clear to auscultation. CV Examination: normal. Prophylactic Antibiotics: The patient does not require prophylactic antibiotics. Prior Anticoagulants: The patient has taken no anticoagulant or antiplatelet agents except for NSAID medication. ASA Grade Assessment: II - A patient with mild systemic disease. After reviewing the risks and benefits, the patient was deemed in satisfactory condition to undergo the procedure. The anesthesia plan was to use monitored anesthesia care (MAC). Immediately prior to administration of medications, the patient was re-assessed for adequacy to receive sedatives. The heart rate, respiratory rate, oxygen saturations, blood pressure, adequacy of pulmonary ventilation, and response to care were monitored throughout the procedure. The physical status of the patient was re-assessed after the procedure. After I obtained informed consent, the scope was passed under direct vision. Throughout the procedure, the patient's blood pressure, pulse, and oxygen saturations were monitored continuously. The Colonoscope was introduced through the anus and advanced to the terminal ileum. The colonoscopy was performed without difficulty. The patient tolerated the procedure well. The quality of the bowel preparation was adequate. The terminal ileum, ileocecal valve, appendiceal orifice, and rectum were photographed. Scope In: 9:25:56 AM Scope Withdrawal Time 0 hours 7 minutes 57 seconds Scope Out: 9:36:51 AM Total Procedure Duration Time 0 hours 10 minutes 55 seconds Findings: The perianal and digital rectal examinations were normal. An area of mildly congested mucosa was found in the entire colon. Biopsies were taken with a cold forceps for histology. Verification of patient identification for the specimen was done. Estimated blood loss was minimal. A few small-mouthed diverticula were found in the recto-sigmoid colon and sigmoid colon. A patchy area of the terminal ileum was congested. Biopsies were taken with a cold forceps for histology. Verification of patient identification for the specimen was done. Estimated blood loss was minimal. Impression: - Congested mucosa in the entire examined colon. Biopsied. - Diverticulosis in the recto-sigmoid colon and in the sigmoid colon. - Congested mucosa in the terminal ileum. Biopsied. Recommendation: - Discharge patient to home. - Resume previous diet. - Continue present medications. - Await pathology results. - Repeat colonoscopy in 5 years for surveillance. Procedure Code(s): --- Professional --- 88440, Colonoscopy, flexible; with biopsy, single or multiple CPT copyright 2021 [employer]. All rights reserved. The codes documented in this report are preliminary and upon forestry engineer review may be revised to meet current compliance requirements. Salbador Fofana DO 08/06/2024 9:40:14 AM This report has been signed electronically. Number of Addenda: 0 Note Initiated On: 08/06/2024 9:08 AM
--- NOTE | 2024-08-06 09:41 | OP.CCLET_ITS ---
08/06/2024 Hermes Amanda Re : Colonoscopy procedure for Lou Garay Harinder Amanda This procedure was performed on Tuesday, August 06, 2024. My impressions and recommendations are as follows: Impressions : - Congested mucosa in the entire examined colon. Biopsied. - Diverticulosis in the recto-sigmoid colon and in the sigmoid colon. - Congested mucosa in the terminal ileum. Biopsied. Recommendations : - Discharge patient to home. - Resume previous diet. - Continue present medications. - Await pathology results. - Repeat colonoscopy in 5 years for surveillance. My findings are described in the full procedure note, which is enclosed. If I can be of further assistance, please feel free to contact me at . Sincerely, Salbador Fofana, 08/06/2024 9:40:14 AM This report has been signed electronically.
--- NOTE | 2024-08-06 09:45 | PCM.POST.ANE ---
Anesthesia: Postop Eval I Current Vital Signs Temperature: 97.9 F Pulse Rate: 71 Blood Pressure: 114/85 Respiratory Rate: 16 Pulse Ox: 97 Oxygen Delivery Method: Room Air Assessment Airway patent: Yes Spontaneous unlabored respirations: Yes Mental status: Asleep nausea: No Vomiting: No Anesthesia Complication: No Fluid Hydration Crystalloid volume administer (ml): 40 Total IV fluid infused: 40 Progress Note Anesthesia document: Postop Eval 1 completed: Yes
--- NOTE | 2024-08-06 10:16 | PCM.POSTANE2 ---
Anesthesia Postop Eval I Sum Postop Eval Completion status Anesthesia document: Postop Eval 1 completed: Yes Anesthesia Postop Eval I Summary Anesthesia Postop Eval I Summary: Anesthesia Postop Eval I: Assessment Summary Airway patent Yes 08/06/24 09:45 [email or web address] Spontaneous unlabored Yes 08/06/24 09:45 [email or web address] respirations Mental status Asleep 08/06/24 09:45 [email or web address] nausea No 08/06/24 09:45 [email or web address] Vomiting No 08/06/24 09:45 [email or web address] Anesthesia Postop Eval I: Fluid Summary Crystalloid volume administer 40 08/06/24 09:45 [email or web address] (ml) Colloids volume administered ( ml) Blood Product volume administered (ml) Total IV fluid infused 40 08/06/24 09:45 [email or web address] Anesthesia Postop Eval I: Summary Notes Anesthesia Complication No 08/06/24 09:45 [email or web address] Anesthesia Complication Comment: Post-operative progress note Anesthesia: Postop Eval II Evaluation Mental status: Awake Pain Level: 0 nausea: No Vomiting: No
== END 2024-08-06 10:37 | disposition home or self-care (01) ==
LOC: EN 08:01 → AC 08:02
PROVIDERS: PCP Family Medicine; Referring Provider Family Medicine; Visit Provider Internal Medicine Gastroenterology
PROC: 0DJD8ZZ Inspection of Lower Intestinal Tract, Via Natural or Artificial Opening Endoscopic (ICD-10-PCS; CPT 45378; principal; 2024-08-06 08:55)
DX: K57.30 Diverticulosis of large intestine without perforation or abscess without bleeding (principal); Z90.49 Acquired absence of other specified parts of digestive tract; I10 Essential (primary) hypertension; R73.03 Prediabetes; Z79.84 Long term (current) use of oral hypoglycemic drugs; Z79.899 Other long term (current) drug therapy; J45.909 Unspecified asthma, uncomplicated; K52.9 Noninfective gastroenteritis and colitis, unspecified; K21.9 Gastro-esophageal reflux disease without esophagitis
CPT/HCPCS: 45380; 88305; A4216; J2405

== ENCOUNTER 2024-08-13 14:32 | Emergency (ER) | payer BC, SELFPAY ==
[2024-08-13 14:32] VITALS: BP 150/92; PULSE 99; RESP 18; TEMP 36.7; O2SAT 99; BMI 36.1
--- NOTE | 2024-08-13 15:09 | ED.VIS.GI ---
HPI HPI - GI History of Present Illness Chief Complaint: GI Bleed Detail of Chief Complaint: Abdominal pain and rectal bleeding Informant: patient Narrative Narrative: Patient presents to the emergency department complaint of rectal bleeding and abdominal pain. Patient states that she had a colonoscopy [address] Fofana. Reason for colonoscopy was chronic diarrhea for 6 months. Patient states they found a lot of inflammation in her colon and she had multiple biopsies done. 4 days ago she started having bright red blood per rectum. That has since resolved within the last 36 hours. She is complaining of upper abdomen pain. She rates her pain an 8 out of 10. She denies vomiting. She denies hematemesis. She denies fever. Patient has had prior cholecystectomy and prior appendectomy. [facility] Medical History Wears glasses Anemia Back pain Injury of head and neck Difficulty swallowing Gastric reflux Non-smoker Sleep apnea History of echocardiogram History of stress test Hypertension Cardiology follow-up encounter History of irregular heartbeat Anxiety Arthritis Asthma Tonsillectomy planned Migraines Home Medications ?Medication ?Instructions ?Recorded ?Last Taken ?Type gabapentin 100 mg capsule 400 mg PO TID MIGRAINS 10/04/16 07/20/21 History albuterol sulfate 90 mcg/actuation 1 - 2 puff inhalation Q6H PRN PRN 03/22/18 07/20/21 History aerosol inhaler (ProAir HFA) Asthma venlafaxine 75 mg tablet 150 mg PO DAILY 04/30/19 07/20/21 History cholecalciferol (vitamin D3) 125 125 mcg PO DAILY 03/31/21 07/20/21 History mcg (5,000 unit) tablet melatonin 10 mg tablet 10 mg PO QHS PRN sleep 03/31/21 07/19/21 History ubrogepant 50 mg tablet (Ubrelvy) 50 mg PO BID PRN migraine headache 07/20/21 Unknown History atogepant 60 mg tablet 60 mg PO DAILY 12/14/23 Unknown History chlorzoxazone 500 mg tablet 500 mg PO TID 12/14/23 Unknown History pantoprazole 40 mg tablet,delayed 40 mg PO BID 12/14/23 Unknown History release propranolol 80 mg capsule,24 80 mg PO DAILY 12/14/23 08/04/24 History hr,extended release rimegepant 75 mg disintegrating 75 mg PO ONCE PRN migraine headache 12/14/23 Unknown History tablet (Nurtec ODT) tramadol 50 mg tablet 50 mg PO TID PRN pain 12/14/23 Unknown History diphenhydramine HCl 25 mg capsule 25 mg PO QHS 08/02/24 Unknown History (Aler-Cap) ergocalciferol (vitamin D2) 1,250 1,250 mcg PO QWEEK 08/02/24 Unknown History mcg (50,000 unit) capsule metformin 500 mg tablet,extended 1,000 mg PO BID 08/02/24 08/04/24 History release 24 hr ondansetron 4 mg disintegrating 8 mg PO Q8H PRN PRN Nausea 08/02/24 Unknown History tablet topiramate 25 mg tablet 25 mg PO QHS 08/02/24 Unknown History hydrocodone-acetaminophen 5-325mg 1 tab PO Q4H PRN PRN Pain 2 days 08/13/24 Unknown Rx 5mg-325mg #10 TABLETS Allergy/AdvReac Type Severity Reaction Status Date / Time metoclopramide (From Reglan) AdvReac severe Verified 08/06/24 08:10 anxious prochlorperazine (From AdvReac severe Verified 08/06/24 08:10 Compazine) anxious Family History Mother Thyroid cancer Skin cancer Hypertension Surgical History History of esophagogastroduodenoscopy (EGD) Hx of tubal ligation Hx of tonsillectomy History of appendectomy S/P cholecystectomy S/P left knee arthroscopy tubes clamped Social History household members: spouse Smoking Status: Never smoker alcohol intake: never substance use type: does not use ROS ROS ED Review of Systems ROS Unobtainable: other Constitutional Constitutional ED: Reports lethargy; Denies chills, fever(s), sweats or weight loss Eyes Eyes: Denies blurry vision, change in vision or diplopia ENT ENT ED: Denies rhinorrhea or sore throat Cardiovascular Cardiovascular: Denies chest pain, orthopnea or racing heartbeat Respiratory/Chest Respiratory/Chest: Denies cough, dyspnea, dyspnea on exertion, orthopnea or sputum Gastrointestinal Gastrointestinal: Reports abdominal pain and other Details: Bright red blood per rectum ; Denies diarrhea, nausea or vomiting Genitourinary Genitourinary ED: Denies dysuria, hematuria or urinary frequency Musculoskeletal Musculoskeletal: Denies arthralgias, back pain, myalgias or neck pain Integumentary Denies abscess, Abrasions or rash Neurologic Neurologic: Denies headache(s) or weakness Psychiatric Psychiatric: Denies anxiety, depression or suicidal thoughts Endocrine Endocrinology: Denies polydipsia, polyphagia or polyuria Hematologic/Lymphatic Hematologic/Lymphatic: Denies easy bleeding, easy bruising or lymphadenopathy Allergic/Immunologic Allergic/Immunologic ED: Denies mouth swelling, tongue swelling or urticaria EXAM Physical Exam Const Vital Signs: 08/13/24 14:32 08/13/24 16:32 Temperature 98.1 F Temperature Source Temporal Pulse Rate 99 89 Respiratory Rate 18 Blood Pressure 150/92 H 121/75 H Blood Pressure Mean 111 90 Pulse Ox 99 100 Oxygen Delivery Method Room Air Room Air Positive well nourished and well developed General Appearance ED: well developed and NAD HEENT Reports TM's clear and moist mucous membranes normocephalic and atraumatic; Negative for trauma or tenderness Tympanic Membrane ED: Yes TM's clear Eyes PERRL and EOMs intact bilaterally General Eye ED: Negative for pale conjunctiva or scleral icterus Neck no lymphadenopathy, supple and no JVD General: Negative for tenderness Chest Wall inspection of chest normal and palpation of chest normal Chest: Negative for tenderness Resp normal respiratory effort and clear to auscultation bilaterally Effort and Inspection: Negative for respiratory distress or pain with movement Auscultation: Negative for rhonchi, wheezes or diminished lung sounds Cardio regular rate, regular rhythm, S1 normal heart sound, S2 normal heart sound and no murmurs Peripheral Pulses: pulses 2+ throughout GI normal to inspection, nondistended, normoactive bowel sounds, soft to palpation, non-distended and no masses GI Narrative: Patient with diffuse tenderness in the epigastric region with some guarding. There is no rebound, rigidity, or. Signs. Also with some mild discomfort in the right lower quadrant on exam. Back/Spine no CVA tenderness and no thoracic nor lumbar tenderness Extremity normal to inspection General Extremety ED: Negative for edema General Extremity: Negative for edema Neuro oriented x3, CN's II-XII intact bilaterally, no sensory deficits noted and gait normal Sensorium / Orientation: awake, alert, oriented to person, oriented to place and oriented to time Motor Exam: strength 5/5 throughout and strength abnormal Psych mental status grossly normal Skin no rashes or lesions noted and no wounds MDM MDM MDM Narrative Medical decision making narrative: Patient presents with abdominal pain after having a colonoscopy a week ago. She had some blood in her stool starting 4 days ago but that seems to have resolved. Patient complaining mostly of upper abdomen pain. IV line established. She was medicated with morphine and Zofran. CBC with differential count of 14.2 which chronically seems to be elevated for her and patient is aware of this and states that she is to at some point had a bone biopsy. Hemoglobin 13.1 and platelet count of 472. Chemistries unremarkable. She has slightly depressed potassium at 3.3. Lactate was 1.6. LFTs normal. Lipase normal at 18. hCG was negative. I did do a CT scan of the abdomen pelvis with IV contrast to evaluate for possible complication related colonoscopy such as possible perforation or inflammatory changes of the colon versus other acute process. CT scan of the abdomen pelvis was unremarkable. I will discuss case with Dr. Fofana who performed the colonoscopy. I discussed case with Dr. Hancock and will discharge patient home with prescription for few [place] for pain. I advised her to return if worsening pain, persistent heavy bleeding with clots or weakness or lightheadedness or condition should worsen anyway. Lab Data Attestation: I reviewed the patient's lab results. Labs: Laboratory Results - last 24 hr 08/13/24 08/13/24 15:15 15:30 WBC 14.2 H RBC 4.86 Hgb 13.1 Hct 40.1 MCV 82.5 MCH 27.0 MCHC 32.7 RDW Std Deviation 40.2 RDW Coeff of Brenda 13.5 Plt Count 472 H MPV 9.8 Immature Gran % (Auto) 0.600 Neut % (Auto) 68.5 Lymph % (Auto) 19.3 Hancock % (Auto) 4.7 Eos % (Auto) 6.5 H Baso % (Auto) 0.4 Absolute Neuts (auto) 9.8 H Absolute Lymphs (auto) 2.75 Nucleated RBC % 0 Sodium 137 Potassium 3.3 Chloride 104 Carbon Dioxide 17.7 L Anion Gap 15 BUN 10 Creatinine 0.71 Estim Creat Clear Calc 130.99 Est GFR (MDRD) Non-Af 116 BUN/Creatinine Ratio 14.6 Glucose 124 H Lactic Acid 1.6 Calcium 9.4 Total Bilirubin 0.19 AST 13 ALT 32 Alkaline Phosphatase 66 Total Protein 6.7 Albumin 4.4 Globulin 2.3 Albumin/Globulin Ratio 1.9 Lipase 18 Serum , Qual NEGATIVE Radiography Diagnostic Testing: Clinical Impression(s) from Imaging Studies Abdomen/Pelvis CT 08/13/24 16:15 IMPRESSION: UNREMARKABLE CONTRAST-ENHANCED CT OF THE ABDOMEN AND PELVIS Reading Location: [facility] Discharge Plan Triage Chief Complaint: GI Bleed ED Provider: Guevara Trevino Dx/Rx/DC Orders Clinical Impression: Abdominal pain, Acute lower GI bleeding Instructions: ED Abdominal Pain Unkn Cause Fem, ED Lower GI Bleeding (Stable) Prescriptions: New hydrocodone-acetaminophen 5-325 mg tablet 1 tab PO Q4H PRN PRN (Reason: Pain) 2 Days Qty: 10 0RF No Action atogepant 60 mg tablet 60 mg PO DAILY chlorzoxazone 500 mg tablet 500 mg PO TID pantoprazole 40 mg tablet,delayed release (DR/EC) 40 mg PO BID propranolol 80 mg capsule,extended release 24 hr 80 mg PO DAILY Nurtec ODT 75 mg tablet,disintegrating 75 mg PO ONCE PRN (Reason: migraine headache) Rx Instructions: as a single dose tramadol 50 mg tablet 50 mg PO TID PRN (Reason: pain) gabapentin 100 MG capsule 400 mg PO TID Patient Comments: albuterol sulfate [ProAir HFA] 1 PUFF inhaler 1 - 2 puff inhalation Q6H PRN PRN (Reason: Asthma) venlafaxine 75 MG tablet 150 mg PO DAILY melatonin 10 mg Tablet 10 mg PO QHS PRN (Reason: sleep) cholecalciferol (vitamin D3) 125 mcg (5,000 unit) Tablet 125 mcg PO DAILY Ubrelvy 50 mg tablet 50 mg PO BID PRN (Reason: migraine headache) Rx Instructions: take 1 tab at onset of migraine may repeat 1 tab in 2 hrs. topiramate 25 mg tablet 25 mg PO QHS metformin 500 mg tablet extended release 24 hr 1,000 mg PO BID Patient Comments: PRE-DIABETIC ergocalciferol (vitamin D2) 1,250 mcg (50,000 unit) capsule 1,250 mcg PO QWEEK diphenhydramine HCl [Aler-Cap] 25 mg capsule 25 mg PO QHS ondansetron 4 MG tablet 8 mg PO Q8H PRN PRN (Reason: Nausea) Primary Care Provider: Hermes Amanda Referrals: Salbador Fofana DO [Med Staff - Active Staff] - 3-5 Days Hermes Amanda MD [Primary Care Provider] - Print Language: Armenian Disposition Disposition: Home, Self Care
[2024-08-13] MEDS: Ondansetron 4 MG/2 ML Vial IV (15:27)
[2024-08-13] MEDS: Morphine 4 MG/ML Syringe IV (15:28)
[2024-08-13 15:41] LABS: Absolute Lymphocyte Count 2.75 X10^3/uL (0.83-4.51); Absolute Neutrophil Count 9.8 X10^3/uL (2.0-7.7); Basophil# 0.06 X10^3/uL; Basophil% 0.4 % (0-1); Eosinophil# 0.92 X10^3/uL; Eosinophils% 6.5 % (0-5); Hematocrit 40.1 % (37-47); Hemoglobin 13.1 g/dL (12.0-15.0); Lymphocyte # 2.75 X10^3/ul (0.83-4.51); Lymphocyte % 19.3 % (19-41); Mean Corp Hgb Conc 32.7 g/dL (32-36); Mean Corpuscular Volume 82.5 fL (81-99); Mean Platelet Vol. 9.8 fl (6.2-12.0); Monocyte# 0.67 X10^3/uL; Monocyte% 4.7 % (0-10); NRBC Flagged by Analyzer 0 % (0-5); Neutrophil # 9.76 X10^3/uL (2.7-7.7); Neutrophil % 68.5 % (47-70); Platelet Count 472 K/mm3 (150-450); RBC Distribution Width CV 13.5 % (11.6-14.6); RBC Distribution Width SD 40.2 fl (35.1-43.9); Red Blood Count 4.86 M/mm3 (4.2-5.4); White Blood Count 14.2 K/mm3 (4.4-11.0)
[2024-08-13 15:57] LABS: ALB/GLOB Ratio 1.9 RATIO (0.9-2.4); AST(SGOT) 13 U/L (<=31); Alanine Aminotransfer ALT/SGPT 32 U/L (<=34); Albumin, Serum 4.4 g/dL (3.5-5.0); Alkaline Phosphatase 66 U/L (35-104); Anion Gap 15 (5-15); BUN 10 mg/dL (4-19); BUN/Creat Ratio 14.6 RATIO (10-20); Calcium,Total 9.4 mg/dL (7.6-11.0); Carbon Dioxide 17.7 mmol/L (21.0-32.0); Chloride 104 mmol/L (98-108); Creatinine, Serum 0.71 mg/dL (0.70-1.20); EST Glomerular Filtration Rate 116 (>60); Estimated Creatinine Clearance 130.99 ml/min (50-250); Globulin 2.3 g/dL (2.2-4.2); Glucose 124 mg/dL (70-99); Lipase 18 U/L (13-75); Potassium 3.3 mmol/L (3.3-5.1); Protein, Total 6.7 g/dL (5.9-8.4); Sodium Level 137 mmol/L (133-145); Total Bilirubin 0.19 mg/dL (0.00-1.30)
[2024-08-13 16:09] LABS: Lactic Acid 1.6 mmol/L (0.0-2.0)
--- NOTE | 2024-08-13 16:15 | CT_ITS ---
PROCEDURE: ABDOMEN/PELVIS W IV CONT ONLY 08/13/2024 REASON FOR EXAM: 33-year-old female, colonoscopy on Tuesday, abdominal pain and BRBPR since Tuesday. TECHNIQUE: Abdomen and pelvis CT with intravenous contrast. Coronal and Sagittal reconstruction series were provided. PATIENT PREPARATION: Per protocol ORAL CONTRAST TYPE: None. CONTRAST: Isovue 370 VOLUME: 100mL One or more dose reduction techniques were used (e.g., Automated exposure control, adjustment of the mA and/or kV according to patient size, use of iterative reconstruction technique. RADIATION DOSE SUMMARY: CTDlvol: 26 mGy DLP: 1400 mGycm COMPARISON: CT abdomen pelvis 04/24/2021. FINDINGS: Lung bases: The lung bases are clear. The heart is normal in size. Liver: The liver is normal in size without focal hepatic mass. The major portal veins are patent. Minimal biliary ductal dilation. Gallbladder: Surgically absent. Spleen: Unremarkable. Pancreas: Unremarkable. Adrenals: Unremarkable. Kidneys: No hydronephrosis or nephrolithiasis. Bladder: Mildly distended and unremarkable. Reproductive Organs: Normal uterine size and contour. Ovaries are unremarkable. Right corpus luteum. Bowel: The bowel loops are normal in caliber. No ascites or pneumoperitoneum. Prior appendectomy. Lymph nodes: No suspicious lymph node enlargement. Vasculature: The abdominal aorta and IVC are normal. Bones: Unremarkable. CT/Abdomen/Pelvis W IV Cont ONLY IMPRESSION: UNREMARKABLE CONTRAST-ENHANCED CT OF THE ABDOMEN AND PELVIS Reading Location: [facility]
[2024-08-13 16:32] VITALS: BP 121/75; PULSE 89; O2SAT 100
[2024-08-13 16:33] LABS: Internal QC Validated? YES +Cl - CLEAR BKGD; Pregnancy, Serum, hCG Quali. NEGATIVE Negative
[2024-08-13 17:49] VITALS: BP 118/78; PULSE 91; RESP 16; TEMP 36.7; O2SAT 97
== END 2024-08-13 17:59 | disposition home or self-care (01) ==
PROVIDERS: Emergency Provider Emergency Medicine; PCP Family Medicine; Visit Provider Emergency Medicine
DX: K92.1 Melena (principal); R10.10 Upper abdominal pain, unspecified; I10 Essential (primary) hypertension; K21.9 Gastro-esophageal reflux disease without esophagitis; F41.9 Anxiety disorder, unspecified; J45.909 Unspecified asthma, uncomplicated; G43.909 Migraine, unspecified, not intractable, without status migrainosus; Z90.49 Acquired absence of other specified parts of digestive tract; Z87.19 Personal history of other diseases of the digestive system; Z79.899 Other long term (current) drug therapy
CPT/HCPCS: 74177; 80053; 83605; 83690; 84703; 85025; 96374; 96375; 99283; Q9967; A4216; J2405

== ENCOUNTER 2024-10-24 11:26 | Day surgery (SDC) | payer OTHER, SELFPAY ==
--- NOTE | 2024-10-23 10:24 | PAT.ANE_ITS ---
Pre-Assessment Diagnosis/Proposed Procedure Planned Operative Procedure(s): EGD Anesthesia History Anesthesia History - order to delivery supervisor: Anesthesia History - order to delivery supervisor Hx Hospitalization No 10/22/24 10:14 Any Problems With Anesthesia No 10/22/24 10:14 Cholinesterase deficiency No 10/22/24 10:14 You/Your Family Experience No 10/22/24 10:14 fever (hyperthermia) with Relationship Recent Exposure to Contagious No 08/14/24 13:23 Disease Does patient have nerve No 10/22/24 10:14 stimulator Patient instructed to have device shut off --Does patient have Pacemaker or ICD? When Was Last Pacemaker Check QUESTION #4 FULL TEXT: You/Your Family Experience fever (hyperthermia) with Anesthesia Last Oral Intake Last Oral intake: Last Oral Intake NPO since Meds taken in AM with sips of water? Meds patient instructed to take am of surgery PONV PONV - order to delivery supervisor: PONV - order to delivery supervisor Female Yes 10/22/24 10:14 HX of Motion Sickness Yes 10/22/24 10:14 HX of N/V After Surgery Yes 10/22/24 10:14 Non-Smoker Yes 10/22/24 10:14 Duration of Surgery greater No 10/22/24 10:14 than 60 minutes Number of Risk Factors 4 10/22/24 10:14 PONV Score Severe Risk 10/22/24 10:14 Height & Weight Height & Weight: Anesthesia: Height & Weight Height 5 ft 5 in 08/14/24 13:23 Respiratory Assessment Respiratory Assessment - order to delivery supervisor: Respiratory Tract Infection Hx - order to delivery supervisor Hx Respiratory Tract Infection No 10/22/24 10:14 STOP Sleep Apnea STOP Sleep Apnea - order to delivery supervisor: STOP Sleep Apnea - order to delivery supervisor Hx Hypertension No 10/22/24 10:14 Hx Sleep Apnea Yes 10/22/24 10:14 CPAP No 10/22/24 10:14 BIPAP No 10/22/24 10:14 Do you snore loudly (louder than talking or can be heard Do you often feel tired/ fatigued/ sleepy during daytime? Has anyone observed you stop breathing during sleep? STOP Results Positive 10/22/24 10:14 QUESTION #5 FULL TEXT : Do you snore loudly (louder than talking or can be heard through closed doors)? 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 Specify any problems Hx of Preganancy in last 3 No 10/22/24 10:14 Months Nurse Filling Out Transfusion JZOLLINGE 10/22/24 10:14 & Questions: Date: 10/22/24 10/22/24 10:14 Time: 10:15 10/22/24 10:14 Patient unable to answer at this time (ie. confused, unrespo /Reproduction History /Reproductive History - order to delivery supervisor: /Reproductive Hx- order to delivery supervisor Hx Now No 10/22/24 10:14 Gestational Age (in weeks): EDC: Hx Hx Para Hx Section SAB No 10/22/24 10:14 [facility] Medical History (Updated 10/22/24 @ 10:14 by Soraida Blake) Diabetes Wears glasses Anemia Back pain Injury of head and neck Difficulty swallowing Gastric reflux Non-smoker Sleep apnea History of echocardiogram History of stress test Hypertension Cardiology follow-up encounter History of irregular heartbeat Anxiety Arthritis Asthma Tonsillectomy planned Migraines Home Medications ?Medication ?Instructions ?Recorded ?Last Taken ?Type gabapentin 100 mg capsule 400 mg PO TID MIGRAINS 10/0407/20/21 History albuterol sulfate 90 mcg/actuation 1 - 2 puff inhalati on Q6H PRN PRN 03/22/18 07/20/21 History aerosol inhaler (ProAir HFA) Asthma venlafaxine 75 mg tablet 150 mg PO DAILY 04/30/1912/04 History cholecalciferol (vitamin D3) 125 125 mcg PO DAILY 03/1607/20/21 History mcg (5,000 unit) tablet melatonin 10 mg tablet 10 mg PO QHS PRN sleep 03/3107/19/21 History ubrogepant 50 mg tablet (Ubrelvy) 50 mg PO BID PRN russell gladis headache 07/20/21 Unknown History atogepant 60 mg tablet 60 mg PO DAILY 12/14/23 Unkn own History chlorzoxazone 500 mg tablet 500 mg PO TID 12/14/23 Unk nown History pantoprazole 40 mg tablet,delayed 40 mg PO BID 4 Unknown History release propranolol 80 mg capsule,24 80 mg PO DAILY 12/14/23 0 08/04/24 History hr,extended release rimegepant 75 mg disintegrating 75 mg PO ONCE PRN migr venkat headache 12/14/23 Unknown History tablet (Nurtec ODT) tramadol 50 mg tablet 50 mg PO TID PRN pain Unknown History diphenhydramine HCl 25 mg capsule 50 mg PO QHS 5 Unknown History (Aler-Cap) ergocalciferol (vitamin D2) 1,250 1,250 mcg PO QWEEK 0 08/02/24 Unknown History mcg (50,000 unit) capsule metformin 500 mg tablet,extended 1,000 mg PO BID 08/0208/04/24 History release 24 hr ondansetron 4 mg disintegrating 8 mg PO Q8H PRN PRN Na usea 08/02/24 Unknown History tablet topiramate 25 mg tablet 50 mg PO BID 08/02/24 Unknow n History onabotulinumtoxinA 200 unit 100 unit subcut .Q 3 MONTH S 10/22/24 Unknown History solution for injection (Botox) Allergy/AdvReac Type Severity Reaction Status Date / Time metoclopramide (From Reglan) AdvReac severe Verified 10/22/24 09:48 anxious prochlorperazine (From AdvReac severe Verified 10/22/24 09:48 Compazine) anxious Family History Mother Thyroid cancer Skin cancer Hypertension Surgical History (Updated 10/22/24 @ 10:14 by Soraida Blake) Hx of colonoscopy History of esophagogastroduodenoscopy (EGD) Hx of tubal ligation Hx of tonsillectomy History of appendectomy S/P cholecystectomy S/P left knee arthroscopy tubes clamped Social History household members: spouse Smoking Status: Never smoker alcohol intake: never substance use type: does not use Audit: Pertinent Findings Pertinent Findings EKG Perinent findings: 02/19/2022. Normal sinus rhythm 89 bpm. Normal EKG. Stress test pertinent findings: 02/19/2022. Negative. Recommendation Anesthesia Recommendation Anesthesia recommendation: OPTIMIZED for anesthesia
[2024-10-24] VITALS (7 sets, daily range): BP systolic 104–121; BP diastolic 56–76; PULSE 70–78; RESP 14–16; TEMP 36.6–36.7; O2SAT 94–99; BMI 34.1
--- NOTE | 2024-10-24 11:48 | PCM.PRE.AN2 ---
ASA Classification* ASA Classification ASA Classification: 2 Assessment & Plan Anesthesia* Anesthesia Assessment Anesthesia Assessment: Discussed sedation and/or anesthesia options, risks, benefits, and alternatives with patient/parents/legal guardian/POA. Questions invited. The patient/parents/legal guardian/POA seems to understand and agrees to proceed with anesthesia plan. Reviewed the physical assessment, medical history, allergy history and patient home medications list prior to surgery/procedure/anesthetic and documented any changes. Performed airway and anesthesia risk assessments. Anesthesia Type Anesthesia Type: MAC Anesthesia Focused Assessment* Airway Assessment Mouth opens: >3 cm Mallampati Score: II Labs Anesthesia Preop lab: CBC WBC 14.2 K/mm3 (4.4-11.0) H 08/13/24 15:15 08/13/24 RBC 4.86 M/mm3 (4.2-5.4) 08/13/24 15:15 08/13/24 Hgb 13.1 g/dL (12.0-15.0) 08/13/24 15:15 08/13/24 Hct 40.1 % (37-47) 08/13/24 15:15 08/13/24 Plt Count 472 K/mm3 (150-450) H 08/13/24 15:15 08/13/24 CHEMISTRY Potassium 3.3 mmol/L (3.3-5.1) 08/13/24 15:15 08/13/24 Sodium 137 mmol/L (133-145) 08/13/24 15:15 08/13/24 BUN 10 mg/dL (4-19) 08/13/24 15:15 08/13/24 Creatinine 0.71 mg/dL (0.70-1.20) 08/13/24 15:15 08/13/24 Glucose 124 mg/dL (70-99) H 08/13/24 15:15 08/13/24 TSH 1.40 uIU/mL (0.358-3.74) 07/20/13 18:08 07/20/13 COAG PT 13.2 SECONDS (11.7-14.9) 04/03/18 06:05 04/03/18 HCG, Quant < 1 mIU/mL (1-3) 03/20/24 13:46 03/20/24 Urine Test Negative Negative 05/31/19 08:40 05/31/19 Pre-Assessment Diagnosis/Proposed Procedure Planned Operative Procedure(s): EGD Anesthesia History 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 When Was Last Pacemaker Check QUESTION #4 FULL TEXT: You/Your Family Experience fever (hyperthermia) with Anesthesia Last Oral Intake Last Oral intake: Last Oral Intake NPO since Meds taken in AM with sips of water? 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 Female Yes 10/22/24 10:14 HX of Motion Sickness Yes 10/22/24 10:14 HX of N/V After Surgery Yes 10/22/24 10:14 Non-Smoker Yes 10/22/24 10:14 Duration of Surgery greater No 10/22/24 10:14 than 60 minutes Number of Risk Factors 4 10/22/24 10:14 PONV Score Severe Risk 10/22/24 10:14 Height & Weight Height & Weight: Anesthesia: Height & Weight Height 5 ft 5 in 08/14/24 13:23 Respiratory Assessment Respiratory Assessment - mosaic tile maker: Respiratory Tract Infection Hx - mosaic tile maker Hx Respiratory Tract Infection No 10/22/24 10:14 STOP Sleep Apnea STOP Sleep Apnea - mosaic tile maker: STOP Sleep Apnea - mosaic tile maker Hx Hypertension No 10/22/24 10:14 Hx Sleep Apnea Yes 10/22/24 10:14 CPAP No 10/22/24 10:14 BIPAP No 10/22/24 10:14 Do you snore loudly (louder than talking or can be heard Do you often feel tired/ fatigued/ sleepy during daytime? Has anyone observed you stop breathing during sleep? STOP Results Positive 10/22/24 10:14 QUESTION #5 FULL TEXT : Do you snore loudly (louder than talking or can be heard through closed doors)? 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 Specify any problems Hx of Preganancy in last 3 No 10/22/24 10:14 Months Nurse Filling Out Transfusion JZOLLINGE 10/22/24 10:14 & Questions: Date: 10/22/24 10/22/24 10:14 Time: 10:15 10/22/24 10:14 Patient unable to answer at this time (ie. confused, unrespo /Reproduction History /Reproductive History - mosaic tile maker: /Reproductive Hx- mosaic tile maker Hx Now No 10/22/24 10:14 Gestational Age (in weeks): EDC: Hx Hx Para Hx Section SAB No 10/22/24 10:14 PFSH Medical History Diabetes Wears glasses Anemia Back pain Injury of head and neck Difficulty swallowing Gastric reflux Non-smoker Sleep apnea History of echocardiogram History of stress test Hypertension Cardiology follow-up encounter History of irregular heartbeat Anxiety Arthritis Asthma Tonsillectomy planned Migraines Home Medications ?Medication ?Instructions ?Recorded ?Last Taken ?Type gabapentin 100 mg capsule 400 mg PO TID MIGRAINS 10/04/16 07/20/21 History albuterol sulfate 90 mcg/actuation 1 - 2 puff inhalation Q6H PRN PRN 03/22/18 07/20/21 History aerosol inhaler (ProAir HFA) Asthma venlafaxine 75 mg tablet 150 mg PO DAILY 04/30/19 07/20/21 History cholecalciferol (vitamin D3) 125 125 mcg PO DAILY 03/31/21 07/20/21 History mcg (5,000 unit) tablet melatonin 10 mg tablet 10 mg PO QHS PRN sleep 03/31/21 07/19/21 History ubrogepant 50 mg tablet (Ubrelvy) 50 mg PO BID PRN migraine headache 07/20/21 Unknown History atogepant 60 mg tablet 60 mg PO DAILY 12/14/23 Unknown History chlorzoxazone 500 mg tablet 500 mg PO TID 12/14/23 Unknown History pantoprazole 40 mg tablet,delayed 40 mg PO BID 12/14/23 Unknown History release propranolol 80 mg capsule,24 80 mg PO DAILY 12/14/23 08/04/24 History hr,extended release rimegepant 75 mg disintegrating 75 mg PO ONCE PRN migraine headache 12/14/23 Unknown History tablet (Nurtec ODT) tramadol 50 mg tablet 50 mg PO TID PRN pain 12/14/23 Unknown History diphenhydramine HCl 25 mg capsule 50 mg PO QHS 08/02/24 Unknown History (Aler-Cap) ergocalciferol (vitamin D2) 1,250 1,250 mcg PO QWEEK 08/02/24 Unknown History mcg (50,000 unit) capsule metformin 500 mg tablet,extended 1,000 mg PO BID 08/02/24 08/04/24 History release 24 hr ondansetron 4 mg disintegrating 8 mg PO Q8H PRN PRN Nausea 08/02/24 Unknown History tablet topiramate 25 mg tablet 50 mg PO BID 08/02/24 Unknown History onabotulinumtoxinA 200 unit 100 unit subcut .Q 3 MONTHS 10/22/24 Unknown History solution for injection (Botox) Allergy/AdvReac Type Severity Reaction Status Date / Time metoclopramide (From Reglan) AdvReac severe Verified 10/22/24 09:48 anxious prochlorperazine (From AdvReac severe Verified 10/22/24 09:48 Compazine) anxious Family History Mother Thyroid cancer Skin cancer Hypertension Surgical History Hx of colonoscopy History of esophagogastroduodenoscopy (EGD) Hx of tubal ligation Hx of tonsillectomy History of appendectomy S/P cholecystectomy S/P left knee arthroscopy tubes clamped Social History household members: spouse Smoking Status: Never smoker alcohol intake: never substance use type: does not use Review of Systems (Anesthesia) ROS Narrative System reviewed and no additional complaints, except as documented.
[2024-10-24] MEDS: Lactated Ringers 1,000 ML 15 ML IV (12:27)
--- NOTE | 2024-10-24 12:29 | PCM.HP.STD ---
HPI - General General Date of Admission: 10/24/24 Date of Service: 10/24/24 Chief Complaint: GERD and Abdominal pain HPI Narrative MARIA ELENA LUA, is a 34 F who presents for the evaluation of bloating and GERD. BGI established 1..25 with diarrhea x2 months. PCP ordered stool testing which was unremarkable besides a slight elevation in the calprotectin. She is s/p cholecystectomy. No hx of colonoscopy. She had an EGD in Jun 2023 without possible EOE. *Start colestipol 1 gram daily Colonoscopy 08.06.24; - Congested mucosa in the entire examined colon. Biopsied. - Diverticulosis in the recto-sigmoid colon and in the sigmoid colon. - Congested mucosa in the terminal ileum. Biopsied. *biopsy consistent with reactive lymphoid follicles which may be a pre curser to IBD OV 4..25; Pt now struggling with epigastric pain. She describes it as stabbing. Worse with oral intake. SHe has had issues dania this before and underwent EGD for it. She continues to have diarrhea but this is not her main concern. She did not take the colestipol yet. [facility] Medical History Diabetes Wears glasses Anemia Back pain Injury of head and neck Difficulty swallowing Gastric reflux Non-smoker Sleep apnea History of echocardiogram History of stress test Hypertension Cardiology follow-up encounter History of irregular heartbeat Anxiety Arthritis Asthma Tonsillectomy planned Migraines Home Medications ?Medication ?Instructions ?Recorded ?Last Taken ?Type gabapentin 100 mg capsule 400 mg PO TID MIGRAINS 10/04/16 10/23/24 History albuterol sulfate 90 mcg/actuation 1 - 2 puff inhalation Q6H PRN PRN 03/22/18 07/20/21 History aerosol inhaler (ProAir HFA) Asthma venlafaxine 75 mg tablet 150 mg PO DAILY 04/30/19 10/23/24 History cholecalciferol (vitamin D3) 125 125 mcg PO DAILY 03/31/21 10/23/24 History mcg (5,000 unit) tablet melatonin 10 mg tablet 10 mg PO QHS PRN sleep 03/31/21 07/19/21 History ubrogepant 50 mg tablet (Ubrelvy) 50 mg PO BID PRN migraine headache 07/20/21 Unknown History atogepant 60 mg tablet 60 mg PO DAILY 12/14/23 10/23/24 History chlorzoxazone 500 mg tablet 500 mg PO TID 12/14/23 10/23/24 History pantoprazole 40 mg tablet,delayed 40 mg PO BID 12/14/23 10/23/24 History release propranolol 80 mg capsule,24 80 mg PO DAILY 12/14/23 10/23/24 History hr,extended release rimegepant 75 mg disintegrating 75 mg PO ONCE PRN migraine headache 12/14/23 Unknown History tablet (Nurtec ODT) tramadol 50 mg tablet 50 mg PO TID PRN pain 12/14/23 Unknown History diphenhydramine HCl 25 mg capsule 50 mg PO QHS 08/02/24 10/23/24 History (Aler-Cap) ergocalciferol (vitamin D2) 1,250 1,250 mcg PO QWEEK 08/02/24 Unknown History mcg (50,000 unit) capsule metformin 500 mg tablet,extended 1,000 mg PO BID 08/02/24 10/23/24 History release 24 hr ondansetron 4 mg disintegrating 8 mg PO Q8H PRN PRN Nausea 08/02/24 10/23/24 History tablet topiramate 25 mg tablet 50 mg PO BID 08/02/24 10/23/24 History onabotulinumtoxinA 200 unit 100 unit subcut .Q 3 MONTHS 10/22/24 Unknown History solution for injection (Botox) Allergy/AdvReac Type Severity Reaction Status Date / Time Environmental Allergies: Allergy Mild sneezing, Verified 10/24/24 12:12 Uncoded (seasonal) metoclopramide (From Reglan) AdvReac severe Verified 10/24/24 12:12 anxious prochlorperazine (From AdvReac severe Verified 10/24/24 12:12 Compazine) anxious Family History Mother Thyroid cancer Skin cancer Hypertension Surgical History Hx of colonoscopy History of esophagogastroduodenoscopy (EGD) Hx of tubal ligation Hx of tonsillectomy History of appendectomy S/P cholecystectomy S/P left knee arthroscopy tubes clamped Social History household members: spouse Smoking Status: Never smoker alcohol intake: never substance use type: does not use ROS Constitutional Constitutional: Denies fatigue, fever(s), poor appetite, weight gain or weight loss Gastrointestinal Gastrointestinal: Denies belching, bloating, change in bowel habits, change in stool character, chewing difficulty, coffee ground emesis, constipation, cramping, diarrhea, dyspepsia, dysphagia, early satiety, excessive flatus, fecal incontinence, heartburn, hematemesis, hematochezia, hemorrhoids, loose stools, melena, nausea, odynophagia, rectal bleeding, tenesmus, vomiting or weight changes Vital Signs Vital Signs Vital Signs: 10/24/24 12:15 10/24/24 12:15 Temperature 98.0 F Temperature Source Temporal Pulse Rate 73 Respiratory Rate 14 Respiratory Pattern Normal Blood Pressure 121/56 H Blood Pressure Mean 77 Blood Pressure Source Monitor Blood Pressure Position Semi-Fowlers Blood Pressure Location Left Arm Pulse Ox 99 Oxygen Delivery Method Room Air Weight Weight: 205 lb 0.478 oz Body Mass Index (BMI) 34.1 Physical Exam Const alert, oriented x3, no apparent distress and healthy appearing General Appearance: cooperative GI normal to inspection, nondistended, normoactive bowel sounds, soft to palpation, non-tender and non-distended Percussion: normal to percussion Rectal Exam: deferred Assessment & Plan Assessment/Plan (1) Epigastric abdominal pain: (2) Eosinophilic esophagitis: (3) Abdominal pain: PLAN: Assessment and Plan Assessment and Plan (1) Abdominal pain: Status: Acute (2) Diarrhea: Status: Acute Plan: This is a 34 yo female pt here today for f/u after colonoscopy. Pt colonoscopy revealed lymphoid follicle which could represent a pre curse to IBD. SHe continues to have loose stools. She has not been able to try the colestipol yet. I encouraged she do this. If it does not give her any relief we will consider Budesonide. Pt has been having epigastric pain for the past month. She has had this before about one year. She will undergo EGD to assess her upper GI tract. I provided prescription and samples of Voquezna. SHe will f/u after her procedure -EGD -Voquezna -Start colestipol -Consider Budesonide -f/u after procedure Medications: New vonoprazan (Voquezna) 10 mg PO QDAY 30 tabs 2RF
--- NOTE | 2024-10-24 12:30 | EGD_PTH ---
PATIENT: MARIA ELENA LUA LOC: EN U#:[id number] AGE/SX: 34/F ROOM: RE10/24/[address]: Dr. Salbador Fofana DO : 1990 BED: DIS: 10/24/2024 SPEC #: [id number] RECD: 10/24/24 14:37 STATUS: GLENIS REDenny #: [id number] MICHELLE: 10/24/24 12:[address]: Salbador Fofana DEPT: SURGICAL PATHOLOGY RECD BY: Rui Gray ENTERED: 10/24/24 15:33 SP TYPE: EGD BIOPSY RAMIREZ DR: Dr. Hermes Amanda MD Tissues: A - Esophagus, NOS B - Duodenum, NOS C - Gastric mucous membrane Procedures: Immunohistochemical Stains Surgery Specimen Level IV HEADER OPERATION: EGD with biopsy PRE-OP DIAGNOSIS: Epigastric abdominal pain, eosinophilic esophagitis, abdominal pain TISSUE SUBMITTED: A- Random esophagus biopsy, B- Duodenum biopsy, C- Gastric body biopsy MICROSCOPIC DIAGNOSIS A. Esophagus, random, biopsies: * Benign squamous epithelium with extensive eosinophilia (70 to 75 eosinophils per high power field) B. Small intestine, duodenum: * Benign duodenal mucosa without active inflammation C. Stomach, body: * Fundic mucosa with slight chronic inflammation * An immunohistochemical stain for Helicobacter pylori is negative MICROSCOPIC DESCRIPTION Slides are reviewed. All matched controls reacted appropriately. These tests were developed and their performance characteristics determined by [facility]. They may not have been cleared or approved by the U.S. Food and Drug Administration. The FDA has determined that such clearance or approval is not necessary. The above immunohistochemical/dualISH markers are ordered and reviewed by the Pathologist. GROSS DESCRIPTION Received in 3 formalin containers labeled the patient's name and date of . Designated as: A. Random esophagus BX is a 1.3 x 0.5 x 0.1 cm aggregate of cisse tissue fragments. Entirely submitted in 1 cassette. B. Duodenum BX are 2 cisse tissue fragments, 0.6 cm each and admixed with flocculent material. Entirely submitted in 1 cassette. C. Gastric body BX for H. pylori and path are 2 cisse tissue fragments, 0.4 cm and 0.5 cm. Entirely submitted in 1 cassette. [facility] 10/24/2024 CPT:53353z7,44018
--- NOTE | 2024-10-24 13:27 | OP.EGD_ITS ---
Patient Name: Lou Garay Procedure Date: 10/24/2024 12:55 PM Date of : 1990 Age: 34 Procedure: Upper GI endoscopy Indications: Epigastric abdominal pain, Functional Dyspepsia, Dysphagia Providers: Salbador Fofana DO Referring MD: Hermes Amanda Medicines: Monitored Anesthesia Care Patient Profile: This is a 34 year old female. Refer to note in patient chart for documentation of history and physical. Patient has symptoms of chronic abdominal cramping, acute epigastric abdominal pain, dysphagia with both liquids and solids, chronic dyspepsia and chronic nausea. Complications: No immediate complications. Procedure: Pre-Anesthesia Assessment: - Prior to the procedure, a History and Physical was performed, and patient medications and allergies were reviewed. The patient is competent. The risks and benefits of the procedure and the sedation options and risks were discussed with the patient. All questions were answered and informed consent was obtained. Patient identification and proposed procedure were verified by the physician in the pre-procedure area. Mental Status Examination: alert and oriented. Airway Examination: normal oropharyngeal airway and neck mobility. Respiratory Examination: clear to auscultation. CV Examination: normal. Prophylactic Antibiotics: The patient does not require prophylactic antibiotics. Prior Anticoagulants: The patient has taken no anticoagulant or antiplatelet agents. ASA Grade Assessment: II - A patient with mild systemic disease. After reviewing the risks and benefits, the patient was deemed in satisfactory condition to undergo the procedure. The anesthesia plan was to use monitored anesthesia care (MAC). Immediately prior to administration of medications, the patient was re-assessed for adequacy to receive sedatives. The heart rate, respiratory rate, oxygen saturations, blood pressure, adequacy of pulmonary ventilation, and response to care were monitored throughout the procedure. The physical status of the patient was re-assessed after the procedure. After obtaining informed consent, the endoscope was passed under direct vision. Throughout the procedure, the patient's blood pressure, pulse, and oxygen saturations were monitored continuously. The Endoscope was introduced through the mouth, and advanced to the fourth part of the duodenum. Small bowel enteroscopy was deemed necessary. The upper GI endoscopy was accomplished without difficulty. The patient tolerated the procedure well. Scope In: 1:08:01 PM Scope Out: 1:11:51 PM Total Procedure Duration Time 0 hours 3 minutes 50 seconds Findings: Mucosal changes including ringed esophagus, feline appearance, longitudinal furrows, small-caliber esophagus and white plaques were found in the entire esophagus. Esophageal findings were graded using the Eosinophilic Esophagitis Endoscopic Reference Score (EoE-EREFS) as: Edema Grade 1 Present (decreased clarity or absence of vascular markings), Rings Grade 1 Mild (subtle circumferential ridges seen on esophageal distension), Exudates Grade 1 Mild (scattered white lesions involving less than 10 percent of the esophageal surface area) and Furrows Grade 1 Mild (vertical lines without visible depth). Biopsies were taken with a cold forceps for histology. Verification of patient identification for the specimen was done. Estimated blood loss was minimal. Patchy mildly erythematous mucosa without bleeding was found in the stomach. [Extent] [Severity] erythematous mucosa [Bleeding] was found [Site]. Biopsies were taken with a cold forceps for histology. Verification of patient identification for the specimen was done. Estimated blood loss was minimal. Biopsies were taken with a cold forceps for Helicobacter pylori testing. Verification of patient identification for the specimen was done. Estimated blood loss was minimal. Patchy mildly erythematous mucosa without active bleeding and with no stigmata of bleeding was found in the duodenal bulb. Biopsies were taken with a cold forceps for histology. Verification of patient identification for the specimen was done. Estimated blood loss was minimal. Suspect gastroparesis due to absence of peristalsis, patient symptoms and retained gastric contents. Impression: - Esophageal mucosal changes secondary to eosinophilic esophagitis. Biopsied. - Erythematous mucosa in the stomach. - Erythematous mucosa in the [Location]. Biopsied. - Erythematous duodenopathy. Biopsied. Recommendation: - Discharge patient to home. - Patient has a contact number available for emergencies. The signs and symptoms of potential delayed complications were discussed with the patient. Return to normal activities tomorrow. Written discharge instructions were provided to the patient. - Resume previous diet. - Continue present medications. - Await pathology results. Procedure Code(s): --- Professional --- 27435, Small intestinal endoscopy, enteroscopy beyond second portion of duodenum, not including ileum; with biopsy, single or multiple CPT copyright 2021 [employer]. All rights reserved. The codes documented in this report are preliminary and upon criminal justice lawyer review may be revised to meet current compliance requirements. Salbador Fofana DO 10/24/2024 1:26:56 PM This report has been signed electronically. Number of Addenda: 0 Note Initiated On: 10/24/2024 12:55 PM
--- NOTE | 2024-10-24 13:27 | OP.CCLET_ITS ---
10/24/2024 Hermes Amanda Re : Upper GI endoscopy procedure for Lou Espinosamiguelito Amanda This procedure was performed on Thursday, October 24, 2024. My impressions and recommendations are as follows: Impressions : - Esophageal mucosal changes secondary to eosinophilic esophagitis. Biopsied. - Erythematous mucosa in the stomach. - Erythematous mucosa in the [Location]. Biopsied. - Erythematous duodenopathy. Biopsied. Recommendations : - Discharge patient to home. - Patient has a contact number available for emergencies. The signs and symptoms of potential delayed complications were discussed with the patient. Return to normal activities tomorrow. Written discharge instructions were provided to the patient. - Resume previous diet. - Continue present medications. - Await pathology results. My findings are described in the full procedure note, which is enclosed. If I can be of further assistance, please feel free to contact me at . Sincerely, Salbador Fofana, 10/24/2024 1:26:56 PM This report has been signed electronically.
--- NOTE | 2024-10-24 13:29 | PCM.POST.ANE ---
Anesthesia: Postop Eval I Current Vital Signs Temperature: 97.8 F Pulse Rate: 70 Blood Pressure: 117/68 Respiratory Rate: 16 Pulse Ox: 97 Oxygen Delivery Method: Room Air Assessment Airway patent: Yes Spontaneous unlabored respirations: Yes Mental status: Awake and Calm nausea: No Vomiting: No Anesthesia Complication: No Fluid Hydration Crystalloid volume administer (ml): 400 Total IV fluid infused: 400 Progress Note Anesthesia document: Postop Eval 1 completed: Yes
--- NOTE | 2024-10-24 13:56 | PCM.POSTANE2 ---
Anesthesia Postop Eval I Sum Postop Eval Completion status Anesthesia document: Postop Eval 1 completed: Yes Anesthesia Postop Eval I Summary Anesthesia Postop Eval I Summary: Anesthesia Postop Eval I: Assessment Summary Airway patent Yes 10/24/24 13:29 [email or web address] Spontaneous unlabored Yes 10/24/24 13:29 [email or web address] respirations Mental status Awake,Calm 10/24/24 13:29 [email or web address] nausea No 10/24/24 13:29 [email or web address] Vomiting No 10/24/24 13:29 [email or web address] Anesthesia Postop Eval I: Fluid Summary Crystalloid volume administer 400 10/24/24 13:29 [email or web address] (ml) Colloids volume administered ( ml) Blood Product volume administered (ml) Total IV fluid infused 400 10/24/24 13:29 [email or web address] Anesthesia Postop Eval I: Summary Notes Anesthesia Complication No 10/24/24 13:29 [email or web address] Anesthesia Complication Comment: Post-operative progress note Anesthesia: Postop Eval II Evaluation Mental status: Awake Pain Level: 0 nausea: No Vomiting: No
== END 2024-10-24 13:56 | disposition home or self-care (01) ==
LOC: EN 11:29 → AC 11:30
PROVIDERS: PCP Family Medicine; Referring Provider Family Medicine; Visit Provider Internal Medicine Gastroenterology
PROC: 0DJ08ZZ Inspection of Upper Intestinal Tract, Via Natural or Artificial Opening Endoscopic (ICD-10-PCS; CPT 43235; principal; 2024-10-24 12:25)
DX: K20.0 Eosinophilic esophagitis (principal); E11.9 Type 2 diabetes mellitus without complications; I10 Essential (primary) hypertension; Z90.49 Acquired absence of other specified parts of digestive tract; J45.909 Unspecified asthma, uncomplicated; Z79.899 Other long term (current) drug therapy; Z79.84 Long term (current) use of oral hypoglycemic drugs; K21.9 Gastro-esophageal reflux disease without esophagitis; K29.80 Duodenitis without bleeding; K29.50 Unspecified chronic gastritis without bleeding
CPT/HCPCS: 43239; 88305; 88342; J2405

== ENCOUNTER → 2024-11-07 | Outpatient (CLI) | payer OTHER, SELFPAY ==
[2024-11-07 14:00] LABS: Absolute Lymphocyte Count 2.72 X10^3/uL (0.83-4.51); Absolute Neutrophil Count 9.4 X10^3/uL (2.0-7.7); Basophil# 0.06 X10^3/uL; Basophil% 0.5 % (0-1); Eosinophils% 3.8 % (0-5); Hematocrit 40.2 % (37-47); Hemoglobin 13.2 g/dL (12.0-15.0); Lymphocyte # 2.72 X10^3/ul (0.83-4.51); Lymphocyte % 20.5 % (19-41); Mean Corp Hgb Conc 32.8 g/dL (32-36); Mean Corpuscular Hgb 27.2 pg (27.0-32.0); Mean Corpuscular Volume 82.7 fL (81-99); Mean Platelet Vol. 9.9 fl (6.2-12.0); Monocyte# 0.57 X10^3/uL; Monocyte% 4.3 % (0-10); NRBC Flagged by Analyzer 0 % (0-5); Neutrophil # 9.37 X10^3/uL (2.7-7.7); Neutrophil % 70.3 % (47-70); Platelet Count 479 K/mm3 (150-450); RBC Distribution Width CV 13.2 % (11.6-14.6); RBC Distribution Width SD 39.8 fl (35.1-43.9); Red Blood Count 4.86 M/mm3 (4.2-5.4); White Blood Count 13.3 K/mm3 (4.4-11.0)
[2024-11-07 14:37] LABS: ALB/GLOB Ratio 1.7 RATIO (0.9-2.4); AST(SGOT) 17 U/L (<=31); Alanine Aminotransfer ALT/SGPT 30 U/L (<=34); Albumin, Serum 4.4 g/dL (3.5-5.0); Alkaline Phosphatase 71 U/L (35-104); Anion Gap 11 (5-15); BUN 12 mg/dL (4-19); BUN/Creat Ratio 17.8 RATIO (10-20); Calcium,Total 9.8 mg/dL (7.6-11.0); Carbon Dioxide 23.7 mmol/L (21.0-32.0); Chloride 104 mmol/L (98-108); Creatinine, Serum 0.67 mg/dL (0.70-1.20); EST Glomerular Filtration Rate 118 (>60); Globulin 2.6 g/dL (2.2-4.2); Glucose 90 mg/dL (70-99); Potassium 4.2 mmol/L (3.3-5.1); Protein, Total 7.1 g/dL (5.9-8.4); Sodium Level 139 mmol/L (133-145); Total Bilirubin 0.43 mg/dL (0.00-1.30)
--- OUTSIDE RECORDS SUMMARY | 2024-11-07 22:08 | XMS RPT_ITS | CCD ---
Author Organization [facility] Care Team Providers Care Software Release Manager Name Role Phone Júnior PHILIP Mary N Unavailable Shawn Todd Unavailable Cogar PORT STEWARD Mary N Unavailable Cogar PORT STEWARD Mary N Unavailable Erica Bone Unavailable Keenan Godfrey Unavailable Cogar CEDRICK Mary N Unavailable Melo COTE MD, Bruno A Primary Care Provider Eileen kareenilaJes García MD Primary Care Provider Care Physician, No Primary Primary Care Provider Unavailable Dr. Ashley Lyles Emergency Provider Dr. Sarthak Ibarra Admit Provider Unavailable Dr. Sarthak Ibarra Referring Provider Unavailable Dr. Sarthak Ibarra Other Provider Unavailable Dr. James Castano Other Provider Dr. Fam Aguirre Attending Provider Dr. Fam Aguirre Other Provider Deo DIRECTOR BUSINESS, DIRECTOR BUSINESS-C Brisa Other Provider Dr. Sarthak Ibarra Attending Provider Unavailable Jes Fuentes MD Primary Care Provider Jes Fuentes MD Primary Care Provider Jes Fuentes MD Primary Care Provider Dr. Jes Fuentes Primary Care Provider Dr. Jes Fuentes Referring Provider Dr. Jes Fuentes Other Provider Dr. Candace Clayton Attending Provider GINA, JES ANTONIO Consulting Unavailable KATHERINE MYRICK DO Attending Unavailable KATHERINE MYRICK DO Primary Care Unavailable KATHERINE MYRICK DO Admitting Unavailable BRUNO ALEJO III Referring Unavailable PROVIDER, UNKNOWN Consulting Unavailable Dima ANTONIO, Saleem Unavailable Jes Fuentes MD Primary Care Provider Haagen 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.UI ARCHITECT, Ofelia Unavailable Suppan 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.UI ARCHITECT, Tomasa A Unavailable JES FUENTES Primary Care Unavailable PROVIDER, UNKNOWN Referring Unavailable PROVIDER, UNKNOWN Referring Unavailable GINA, JES Callaway Primary Care Unavailable PROVIDER, UNKNOWN Referring Unavailable GINA, JES Callaway Primary Care Unavailable Suppan 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.UI ARCHITECT, Tomasa A Unavailable Suppan 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.MARISELA, Tomasa A Unavailable [phone] Dr. Jes Fuentes MD Primary Care Provider Dr. Jes Fuentes MD Referring Provider Sussy Figueroa Attending Provider Dr. Salbador Fofana DO Attending Provider Dr. Salbador Fofana DO Other Provider Dr. Guevara Trevino DO Emergency Provider [phone] JES FUENTES Primary Care Unavailable CHIO ASH Referring Unavailable CHIO ASH Attending Unavailable HILDA ORELLANA Referring Unavailab le JES FUENTES Primary Care Unavailable JES FUENTES Primary Care Unavailable OFELIA DELANEY Referring Unavailable ASHLEY CARMEN Referring Unavailable JES FUENTES Primary Care Unavailable JES FUENTES Primary Care Unavailable KEN HILL Referring Unavailable GINA, JES Callaway Primary Care Unavailable MARY KUMAR Attending Unavailable JES FUENTES Primary Care Unavailable GINA, JES Callaway Primary Care Unavailable DALI, CHIO Referring Unavailable GINA, JES Callaway Primary Care Unavailable CHIO ASH Referring Unavailable NELLY LOCO Attending Unavailable GINA, JES Callaway Primary Care Unavailable MASCI, ASHLEY A Referring Unavailable ARUNA UHNTER Attending Unavailable GINA, JES Callaway Primary Care Unavailable GINA, JES J Primary Care Unavailable GINA, JES J Referring Unavailable SELF Referring Unavailable GINA, JES J Primary Care Unavailable RUSS DE DIOS Attending Unavailable SELF Referring Unavailable GINA, JES J Primary Care Unavailable DANISH HERNANDEZ Attending Unavailable GINA, JES J Primary Care Unavailable EMI HALL Attending Unavailable MARY KUMAR Referring Unavailable GINA, JES J Primary Care Unavailable GINA, JES J Primary Care Unavailable CHIO ASH Referring Unavailable KYRA WEISS Attending Unavailable SELF Referring Unavailable GINA, JES J Primary Care Unavailable SELF Referring Unavailable GINA, JES J Primary Care Unavailable ZORAIDA RODARTE Attending Unavailable ZORAIDA RODARTE Referring Unavailable IGNA, JES J Primary Care Unavailable ZORAIDA RODARTE Referring Unavailable GINA, JES J Primary Care Unavailable ZORAIDA RODARTE Attending Unavailable ZORAIDA RODARTE Referring Unavailable GINA, JES Callaway Primary Care Unavailable TOMASA LAGUERRE Referring Unavailable GINA, JES J Primary Care Unavailable TOMASA LAGUERRE Attending Unavailable GINA, JES J Primary Care Unavailable ASHLEY CARMEN A Referring Unavailable GINA, JES J Primary Care Unavailable KERMIT, ASHLEY A Referring Unavailable GINA, JES Nilton Primary Care Unavailable MASCI, ASHLEY A Referring Unavailable GINA, JES J Primary Care Unavailable MASCI, ASHLEY A Referring Unavailable GINA, JES J Primary Care Unavailable GINA, JES Callaway Primary Care Unavailable OFELIA DELANEY Attending Unavailable HILDA ORELLANA Attending Unavailab le GINA, JES Callaway Primary Care Unavailable MARY KUMAR Attending Unavailable GINA, JES J Primary Care Unavailable ZORAIDA RODARTE Attending Unavailable ZORAIDA RODARTE Referring Unavailable GINA, JES Callaway Primary Care Unavailable GINA, JES Callaway Primary Care Unavailable CHIO ASH Attending Unavailable ARUNA HUNTER Referring Unavailable GINA, JES Callaway Primary Care Unavailable LILIANE CROCKETT Referring Unavailable GINA, JES J Primary Care Unavailable GERMANIA DAHL Attending Unavailable GINA, JES J Primary Care Unavailable GINA, JES J Primary Care Unavailable OFELIA DELANEY Attending Unavailable ERICI, ASHLEY A Referring Unavailable GINA, JES Callaway Primary Care Unavailable MASCI, ASHLEY A Referring Unavailable GINA, JES J Primary Care Unavailable MASCI, ASHLEY A Referring Unavailable GINA, JES Callaway Primary Care Unavailable MASCI, ASHLEY A Referring Unavailable GINA, JES Callaway Primary Care Unavailable MASCI, ASHLEY A Referring Unavailable GINA, JES Callaway Primary Care Unavailable GINA, JES Callaway Primary Care Unavailable MARY KUMAR Referring Unavailable GINA, JES Callaway Primary Care Unavailable CHIO ASH Attending Unavailable MARY KUMAR Referring Unavailable GINA, JES Callaway Primary Care Unavailable HILDA ORELLANA Referring Unavailab LILIANE Lawler Attending Unavailable GINA, JES Callaway Primary Care Unavailable STACY, MARY Referring Unavailable GINA, JES Callaway Primary Care Unavailable MARY KUMAR Attending Unavailable GINA, JES Callaway Primary Care Unavailable DANISH HERNANDEZ Attending Unavailable GINA, JES Callaway Primary Care Unavailable GINA, JES Callaway Primary Care Unavailable GINA, JES Callaway Referring Unavailable MASCI, ASHLEY A Referring Unavailable GINA, JES Callaway Primary Care Unavailable GINA, JES Callaway Attending Unavailable MARIA ELENA PAINTING Referring Unavailable GINA, JES Callaway Primary Care Unavailable MARIA ELENA PAINTING Attending Unavailable GINA, JES Callaway Primary Care Unavailable GINA, JES Callaway Primary Care Unavailable CHIO ASH Attending Unavailable GINA, JES Callaway Primary Care Unavailable SORAIDA GARDNER Attending Unavailable MASCI, ASHLEY A Referring Unavailable GINA, JES Callaway Primary Care Unavailable KERMIT, ASHLEY A Attending Unavailable TOMASA LAGUERRE Referring Unavailable GINA, JES Callaway Primary Care Unavailable RUSS DE DIOS Attending Unavailable GINA, JES Callaway Primary Care Unavailable GINA, JES Callaway Primary Care Unavailable DANISH HERNANDEZ Attending Unavailable MARY KUMAR Attending Unavailable GINA, JES Callaway Primary Care Unavailable CHIO SAH Referring Unavailable ZORAIDA RODARTE Attending Unavailable ZORAIDA RODARTE Referring Unavailable GINA, JES Callaway Primary Care Unavailable GINA, JES Callaway Primary Care Unavailable ZORAIDA RODARTE Attending Unavailable ZORAIDA RODARTE Referring Unavailable GINA, JES Callaway Primary Care Unavailable MAGGI ALLEN Referring Unavailable GINA, JES Callaway Primary Care Unavailable ZORAIDA RODARTE Referring Unavailable GINA, JES Callaway Primary Care Unavailable MASCRadha, ASHLEY A Referring Unavailable ARUNA HUNTER Attending Unavailable GINA, JES Callaway Primary Care Unavailable [place] , Dr. Mirza Primary Care Provider [phone] Dr. Jes Fuentes MD Referring Provider [phone] Dr. Ricky Naht MD Attending Provider Dr. Ricky Nath MD Referring Provider Dr. Guevara Trevino DO Attending Provider Sussy Figueroa Attending Provider Ricky Nath Referring Unavailable Ricky Nath Attending Unavailable Gina, Jes Primary Care Unavailable Friend, Salbador Attending Unavailable Friend, Salbador Consulting Unavailable Gina, Jes Primary Care Unavailable Gina, Jes Referring Unavailable Friend, Salbador Attending Unavailable Friend, Salbador Consulting Unavailable [place], Jes Primary Care Unavailable [place], Jes Referring Unavailable AtanasSussy roman Attending Unavailable [place], Jes Referring Unavailable Gina, Jes Primary Care Unavailable Friend, Salbador Attending Unavailable [place], Jes Referring Unavailable [place], Jes Primary Care Unavailable Friend, Salbador Attending Unavailable [place], Jes Primary Care Unavailable Gina, Ejs Referring Unavailable FannyYovani mojica Attending Unavailable [place], Jes Primary Care Unavailable Haury, Amry Referring Unavailable Haury, Mary Attending Unavailable Gina, Jes Primary Care Unavailable Gina, Jes Primary Care Unavailable Guevara Trevino Attending Unavailable Sussy Valeds Attending Unavailable Gina, Jse Primary Care Unavailable [place], Jes Referring Unavailable AtanasSussy roman Attending Unavailable Gina, Jes Referring Unavailable [place], Jes Primary Care Unavailable Allergies Allergy Classification Reported Allergen(s) Allergy Type Date of Onset Reaction(s) Facility DOPamine Antagonists (8 sources) Metoclopramide Drug Allergy 07-21-19 Other: See Comments [facility] Prochlorperazine (8 sources) Prochlorperazine Drug Allergy 07-21-19 Other: See Comments [facility] (20 sources) Metoclopramide; Translations: [METOCLOPRAMIDE HCL] Drug Allergy 07-21-19 Other: See Comments [facility] (20 sources) Prochlorperazine; Translations: [PROCHLORPERAZINE EDISYLATE] Drug Allergy 07-21-19 Other: See Comments [facility] (20 sources) Seasonal allergy; Translations: [SEASONAL ALLERGIES] Allergy to substance 10-16-19 11 Other: See Comments, Unknown [facility] Work Phone: (6 sources) Metoclopramide Drug Allergy 10-01-19 severe anxious [facility] (6 sources) Prochlorperazine Drug Allergy 10-01-19 severe anxious [facility] Comment on above: anxious (1 source) Metoclopramide Drug Allergy [facility] Repository (1 source) Prochlorperazine Drug Allergy [facility] Rep[facility] (3 sources) Environmental Allergies: Uncoded; Translations: [Environmental Allergies: Uncoded] Allergy to substance 10-25-19 sneezing, [facility] (1 source) Metoclopramide Drug Allergy 10-25-19 [facility] Repository (1 source) Prochlorperazine Drug Allergy 10-25-19 [facility] Repository Medications Current Medications Medication Drug Class(es) Dates Sig (Normalized) Sig (Original) [id number] 200 actuat albuterol 0.09 mg/actuat metered dose inhaler (20 sources) beta2-Adrenergic Agonist Start: 12-08-2022 End: 08-18-2024 take 2 puff(s) by inhalation every four hours as needed for wheezing albuterol HFA (PROVENTIL HFA, VENTOLIN HFA) 90 mcg/actuation inhaler Inhale 2 Puffs as instructed every 4 hours as needed for wheezing/shortnes s of breath. as instructed 1 Each 5 02/20/2024 Active Start: 10-29-2020 End: 12-07-2022 take 2 puff(s) by mouth every four hours as needed for wheezing albuterol HFA (PROVENTIL HFA, VENTOLIN HFA) 90 mcg/actuation inhaler INHALE 2 PUFFS BY MOUTH INSTRUCTED EVERY 4 HOURS NEEDED FOR WHEEZING/SHORTNESS OF BREATH. 1 Each 5 10/29/2020 12/07/2022 Discontinued Start: 09-04-2020 albuterol (PRO VENTIL) 2.5 mg /3 mL (0.083 %) nebulizer solution Indications: Exacerbation of asthma, unspecified asthma severity, unspecified whether persistent (HCC) Use 3 mL via nebulizer every 4 hours as needed. Use over 5-15minutes. 1 Package 09/04/2020 Active Start: 03-22-2018 take 1 puff(s) by in halation every six hours as needed Albuterol Sulfate (Proair Hfa) 1 PUFF inhaler Active 1 - 2 PUFF INHALATION EVERY 6 HOURS NEEDED March 22, 2018 9:44am Comment on above: Use 3 mL via nebuliz er every 4 hours as needed. Use over 5-15minutes. INHALE 2 PUFFS BY MO UT INSTRUCTED EVERY 4 HOURS NEEDED FOR WHEEZING/SHORTNESS OF BREATH. Inhale 2 Puffs as in structed every 4 hours as needed for wheezing/shortness of breath. as instructed Albuterol Sulfate (Proair Hfa) 1 PUFF inhaler (5 sources) Start: 03-22-2018 Albuterol Sulfate (Proair Hfa) 1 PUFF inhaler Active 1 - 2 NMA INHALATION EVERY 6 HOURS NEEDED as needed for Asthma March 22, 2018 1:00am Start: 03-22-2018 take 1 puff(s) by in halation every six hours as needed Albuterol Sulfate (Proair Hfa) 1 PUFF inhaler Active 1 - 2 PUFF INHALATION EVERY 6 HOURS NEEDED March 22, 2018 12:00am amoxicillin 875 mg oral tablet (15 sources) Penicillin-class Antibacterial Start: 08-17-2021 End: 08-27-2021 take 1 tablet by mouth twice daily amoxicillin (AMOXIL) 875 mg tablet Indications: Dental infection Take 1 tablet by mouth twice daily for 10 days. 20 tablet 0 08/17/2021 08/27/2021 Active Start: 01-24-2018 End: 02-03-2018 take 2 capsules by mouth twice daily Amoxicillin 500 mg capsule Discontinued 1000 mg PO TWICE A DAY 40 January 24, 2018 12:00am February 02, 2018 12:00am February 03, 2018 12:09am Start: 01-24-2018 End: 02-03-2018 take 1000 mg by mouth twice daily Amoxicillin Discontinued 1000 MG PO TWICE A DAY 40 January 24, 2018 5:30pm February 03, 2018 12:09am Start: 07-20-2017 End: 07-30-2017 take 2 capsules by mouth twice daily as needed Amoxicillin 500 mg capsule Discontinued 1000 mg PO TWICE A DAY as needed for sore throat 40 July 20, 2017 1:00am July 29, 2017 12:00am July 30, 2017 12:11am Start: 07-20-2017 End: 07-30-2017 take 1000 mg by mouth twice daily Amoxicillin Discontinued 1000 MG PO TWICE A DAY 40 July 20, 2017 9:44am July 30, 2017 12:11am Comment on above: Take 1 tablet by catarina th twice daily for 10 days. Atogepant (4 sources) Start: 12-14-2023 take 1 tablet by mouth once daily Atogepant 60 mg tablet Active 60 mg PO DAILY December 14, 2023 12:00am atogepant (QULIPTA) 60 mg tablet (20 sources) Start: 10-30-2024 End: 10-30-2025 take 1 tablet by mouth once daily atogepant (QULIPTA) 60 mg tablet Take 1 tablet (60 mg) by mouth once daily. 90 tablet 3 10/30/2024 10/30/2025 Active Start: 10-26-2023 End: 10-29-2024 take 1 tablet by mouth once daily atogepant (QULIPTA) 60 mg tablet Take 1 tablet (60 mg) by mouth once daily. 30 tablet 11 10/05/2024 11:16 AM EDT 10/26/2023 10/29/2024 Discontinued Start: 10-26-2023 take 1 tablet by catarina th once daily atogepant (QULIPTA) 60 mg tablet Take 1 tablet (60 mg) by mouth once daily. 30 tablet 11 10/05/2024 11:16 AM EDT 10/26/2023 Active Start: 10-26-2023 take 1 tablet by catarina th once daily in the evening atogepant (QULIPTA) 60 mg tablet Take 1 tablet (60 mg) by mouth once daily. 30 tablet 11 08/28/2024 2:18 PM EDT 10/26/2023 Active Start: 10-26-2023 take 1 tablet by catarina th once daily atogepant (QULIPTA) 60 mg tablet Take 1 tablet (60 mg) by mouth once daily. 30 tablet 11 08/05/2024 12:24 PM EDT 10/26/2023 Active Start: 10-26-2023 take 1 tablet by catarina th once daily in the evening atogepant (QULIPTA) 60 mg tablet Take 1 tablet (60 mg) by mouth once daily. 30 tablet 11 07/03/2024 1:53 PM EST 10/26/2023 Active Start: 10-26-2023 take 1 tablet by catarina th once daily atogepant (QULIPTA) 60 mg tablet Take 1 tablet (60 mg) by mouth once daily. 30 tablet 11 10/26/2023 Active onabotulinumtoxina 200 unt injection (20 sources) Acetylcholine Release Inhibitor Start: 10-22-2024 Onabotulinumtoxina (Botox) 200 unit recon soln Active 100 U SC .Q 3 MONTHS October 22, 2024 12:00am Start: 07-11-2024 End: 07-11-2024 onabotulinum toxin type A 20 0 Units injection (BOTOX) Start: 07-11-2024 End: 07-11-2024 inject 1 dose by intramuscular injection once 200 Units, INTRAMUSCULAR, ONCE, 1 dose, On Tue07/11/24 at 1430, This record documents the total dose provided to patient. See progress note for specific locations and amounts administered. Start: 04-18-2024 End: 04-18-2024 onabotulinum toxin type A 20 0 Units injection (BOTOX) Start: 04-18-2024 End: 04-18-2024 inject 1 dose by intramuscular injection once 200 Units, INTRAMUSCULAR, ONCE, 1 dose, On Tue04/18/24 at 1330, This record documents the total dose provided to patient. See progress note for specific locations and amounts administered. Start: 01-25-2024 End: 01-25-2024 onabotulinum toxin type A 20 0 Units injection (BOTOX) Start: 01-25-2024 End: 01-25-2024 inject 1 dose by intramuscular injection once 200 Units, INTRAMUSCULAR, ONCE, 1 dose, On Tue01/25/24 at 1330, This record documents the total dose provided to patient. See progress note for specific locations and amounts administered. Start: 10-26-2023 End: 10-26-2023 onabotulinum toxin type A 20 0 Units injection (BOTOX) Start: 08-02-2023 End: 08-02-2023 onabotulinum toxin type A 20 0 Units injection (BOTOX) Start: 02-01-2023 End: 02-01-2023 onabotulinum toxin type A 20 0 Units injection (BOTOX) Start: 11-02-2022 End: 11-02-2022 onabotulinum toxin type A 20 0 Units injection (BOTOX) Start: 08-03-2022 End: 08-03-2022 onabotulinum toxin type A 20 0 Units injection (BOTOX) Start: 05-04-2022 End: 05-04-2022 onabotulinum toxin type A 20 0 Units injection (BOTOX) Start: 02-02-2022 End: 02-03-2022 onabotulinum toxin type A 20 0 Units injection (BOTOX) Start: 04-08-2021 End: 10-14-2022 onabotulinum toxin type A 20 0 Units injection (BOTOX) Budesonide-Formoterol (20 sources) Corticosteroid, beta2-Adrenergic Agonist Start: 07-21-2021 Budesonide-Formoterol (Symbicort) 80-4.5 mcg/actuation HFA aerosol inhaler Active 1 INH INHALATION TWICE A DAY 10.2 July 21, 2021 11:03am Start: 07-21-2021 End: 08-02-2024 Budesonide-Formoterol (Symbi dedra) 80-4.5 mcg/actuation HFA aerosol inhaler Discontinued 1 NMA INHALATION TWICE A DAY 10.2 July 21, 2021 1:00am August 02, 2024 9:32am Start: 07-21-2021 Budesonide-For moterol (Symbicort) 80-4.5 mcg/actuation HFA aerosol inhaler Active 1 INH INHALATION TWICE A DAY 10.2 July 21, 2021 12:00am End: 05-24-2023 take 2 puff(s) by inhalation twice daily budesonide-formoterol (SYMBICORT) 80-4.5 mcg/actuation inhaler Inhale 2 Puffs as instructed twice daily. 05/24/2023 Discontinued take 2 puff(s) by in halation twice daily budesonide-formoterol (SYMBICORT) 80-4.5 mcg/actuation inhaler Inhale 2 Puffs as instructed twice daily. 0 Active Comment on above: Inhale 2 Puffs as in structed twice daily. chlorzoxazone 500 mg oral tablet (20 sources) Muscle Relaxant Start: End: take 1 tablet by mouth three times daily as needed chlorzoxazone (PARAFON FORTE DSC) 500 mg tablet Indications: Intractable chronic 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 Take 1 tablet by mouth three times a day as needed. 60 tablet 3 10/02/2024 Active Start: 08-19-2020 End: 03-02-2023 take 1 tablet by mouth four times daily as needed chlorzoxazone (PARAFON FORTE DSC) 500 mg tablet Indications: Chronic migraine without aura, with intractable migraine, so stated, with status migrainosus Take 1 tablet by mouth four times daily as needed. Do not take Flexeril or any other muscle relaxer when taking this medication. 20 tablet 2 08/19/2020 05/28/2022 Discontinued Comment on above: Take 1 tablet by catarina four times daily as needed. Do not take Flexeril or any other muscle relaxer when taking this medication. Take 1 tablet four t imes a day until 24 hours headache free or for a maximum of 5 days. Do not take any other muscle relaxers or pain pills while taking this medication. Do not drive or operate machinery while taking this medication. Take 1 tablet by catarina th three times a day as needed. take 1 tablet by catarina th three times a day as needed cholecalciferol 0.125 mg oral tablet (20 sources) Vitamin D Start: 03-31-20 take 1 tablet by mouth once daily Cholecalciferol (Vitamin D3) 125 mcg (5,000 unit) Tablet Active 125 ug PO DAILY March 31, 2021 1:00am Start: 06-13-2020 take 1 capsule by mo [facility] once daily Cholecalciferol, Vitamin D3, 125 mcg (5,000 unit) cap Indications: Vitamin D deficiency Take 1 capsule by mouth once daily. 06/13/2020 Active Comment on above: Take 1 capsule by mo [facility] once daily. diphenhydrAMINE hydrochloride 25 mg oral capsule (19 sources) Histamine-1 Receptor Antagonist Start: take 2 capsules by mouth at bedtime Diphenhydramine Hcl (Aler-Cap) 25 mg capsule Active 50 mg PO AT BEDTIME August 02, 2024 12:00am Start: 08-02-2024 take 1 capsule by mo uth at bedtime Diphenhydramine Hcl (Aler-Cap) 25 mg capsule Active 25 mg PO AT BEDTIME August 02, 2024 12:00am Start: 07-20-2024 End: 07-20-2024 25 mg, INTRAVENOUS, NEEDE D, 2 doses, Starting on 07/20/24 at 1010, Until Tue07/20/24 at 1228, Sedation/Dystonia/Akathisia/Anxiety 3rd line Start: 07-19-2024 End: 07-19-2024 25 mg, INTRAVENOUS, NEEDE D, 2 doses, Starting on Alisa 07/19/24 at 1117, Until Alisa 07/19/24 at 1300, Sedation/Dystonia/Akathisia/Anxiety 3rd line Start: 10-28-2023 End: 10-28-2023 diphenhydrAMINE 25 mg inject ion (BENADRYL) take 2 tablets by mo ut every twenty-four hours as needed diphenhydrAMINE (BENADRYL ALLERGY) 25 mg tablet Take 50 mg by mouth at bedtime as needed. Active doxycycline hyclate 100 mg oral capsule (2 sources) Tetracycline-class Drug Start: 03-28-2024 End: 04-04-2024 take 1 capsule by mouth twice daily doxycycline hyclate (VIBRAMYCIN) 100 mg capsule Take 1 capsule (100 mg) by mouth two times a day for 7 days. 14 capsule 03/28/2024 04/04/2024 Active ergocalciferol 1.25 mg oral capsule (20 sources) Provitamin D2 Compound Start: 06-04-2023 Ergocalciferol (Vitamin D2) 1,250 mcg (50,000 unit) capsule Active 1250 ug PO EVERY WEEK August 02, 2024 12:00am Comment on above: Take 1 capsule by mo ut one time a week. gabapentin 600 mg oral tablet (20 sources) Anti-epileptic Agent Start: 10-25-2024 End: 10-25-2025 take 1 tablet by mouth three times daily gabapentin (NEURONTIN) 600 mg tablet Indications: Myalgia Take 1 tablet by mouth three times a day. 270 tablet 3 10/25/2024 10/25/2025 Active Start: 10-14-2023 End: 10-13-2024 take 1 tablet by mouth three times daily gabapentin (NEURONTIN) 600 mg tablet Indications: Myalgia Take 1 tablet by mouth three times a day. 270 tablet 3 10/14/2023 Active Start: 05-04-2023 End: 05-03-2024 take 1 capsule by mouth three times daily gabapentin (NEURONTIN) 400 mg capsule Take 1 capsule by mouth three times a day. 270 capsule 3 05/04/2023 10/14/2023 Discontinued (Dosage adjustment) Start: 04-22-2022 End: 04-22-2023 take 1 capsule by mouth three times daily gabapentin (NEURONTIN) 400 mg capsule Take 1 capsule by mouth three times daily. 270 capsule 3 04/22/2022 Active Start: 01-27-2017 GABAPENTIN 100 MG CAPS as directed GABAPENTIN [id number] Keenan HERRERA Start: 10-04-2016 End: 07-20-2022 take 4 capsules by mouth three times daily Gabapentin 100 MG capsule Active 400 mg PO THREE TIMES A DAY October 04, 2016 12:00am Start: 10-04-2016 take 400 mg by mouth three times daily Gabapentin Active 400 MG PO THREE TIMES A DAY October 04, 2016 5:17pm Comment on above: TAKE 4 CAPSULES BY M OUTH 3 TIMES A DAY Take 400 mg by mouth three times daily. Take 4 capsules by m outh three times daily for 90 days. Take 1 capsule by mo ut three times daily. Take 1 capsule by mo uth three times a day. iv contrast (will be provided with radiology test) (1 source) Start: 2023 End: 2023 inject 1 dose intravenously once iv contrast (will be provided with radiology test) Indications: Worsening headaches , Visual changes , Confusion MRI Brain Inject, intravenously, once for 1 dose.No IV access, insert saline lock prior to beginning of sedation, infusion, injection of imaging exam.Discontinue saline lock post exam. If Pt. has a central line or IVAD, may access for administration according to line specific nursing protocol.Once exam is complete flush line and de-access according to line specific nursing protocol in the MR contrast administration guidelines link 1 Each 03/06/2024 03/07/2024 Active lactobacillus acidophilus 460 mg oral capsule (20 sources) Start: 2023 take 1 capsule by mouth once daily Lactobacillus acidophilus (FLORAJEN ACIDOPHILUS) 20 billion cell capsule Indications: Diarrhea, unspecified type Take 1 capsule by mouth once daily. 30 capsule 1 12/06/2023 Active levonorgestrel 0.025377 mg/hr intrauterine system (11 sources) Progestin, Progestin-containin g Intrauterine Device Start: 2023 End: 2028 levonorgestrel (MIRENA) 21 mcg/24hr (up to 8 yrs) 52 mg IUD 1 Each by INTRAUTERINE route as directed. 1 Each 03/09/2024 04/04/2024 Discontinued (Discontinued by Patient) Start: 03-09-2024 End: 03-09-2024 1 Each, INTRAUTERINE, ONCE ( UP TO 30 DAYS AMB), 1 dose, On Tue03/09/24 at 1130, Hazardous Potential Reproductive Risk Drug: Use appropriate PPE. melatonin 10 mg oral tablet (6 sources) Start: 03-31-2021 take 1 tablet by mouth at bedtime as needed for sleep Melatonin 10 mg Tablet Active 10 mg PO AT BEDTIME as needed for sleep March 31, 2021 1:00am 24 hr metFORMIN hydrochloride 500 mg extended release oral tablet (20 sources) Biguanide Start: 02-24-2024 End: 12-30-2024 Metformin 500 mg tablet extended release 24 hr Active 1000 mg PO TWICE A DAY August 02, 2024 12:00am ondansetron 4 mg disintegrating oral tablet (20 sources) Serotonin-3 Receptor Antagonist Start: 11-07-2024 take 1 tablet by mouth every eight hours Ondansetron 4 mg tablet,disintegra ting Active 4 mg PO Q8H November 07, 2024 12:00am Start: 08-02-2024 take 2 tablets by mo uth every eight hours as needed for nausea Ondansetron 4 MG tablet Active 8 mg PO EVERY 8 HOURS NEEDED as needed for Nausea August 02, 2024 12:00am Start: 07-19-2024 End: 07-20-2024 8 mg, INTRAVENOUS, ONCE, 1 d ose, On Tue07/20/24 at 1030 Start: 10-28-2023 End: 10-28-2023 ondansetron (PF) 8 mg inject ion (ZOFRAN) Start: 10-28-2023 End: 10-28-2023 ondansetron (PF) 8 mg inject ion (ZOFRAN) Start: 10-14-2023 End: 08-30-2024 take 2 tablets by mouth every eight hours as needed for nausea and nausea ondansetron (ZOFRAN) 4 mg tablet Indications: Nausea Take 2 tablets by mouth every 8 hours as needed for nausea/vomiting. 180 tablet 2 08/30/2024 Active Start: 10-03-2023 End: 10-03-2023 ondansetron (PF) 8 mg inject ion (ZOFRAN) Start: 09-09-2023 End: 10-09-2023 take 2 tablets by mouth every eight hours as needed for nausea ondansetron (ZOFRAN) 4 mg tablet Indications: Orthostatic hypotension Take 2 tablets by mouth every 8 hours as needed (for nausea.). 180 tablet 09/09/2023 10/09/2023 Start: 2023 End: 2023 ondansetron (PF) 8 mg inject ion (ZOFRAN) Start: 03-06-2021 End: 09-09-2023 take 1 tablet by mouth once daily as needed for nausea ondansetron (ZOFRAN) 4 mg tablet Take 1 tablet by mouth once daily as needed (for nausea.). 20 tablet 11 03/02/2023 09/09/2023 Discontinued Start: 11-07-2019 End: 08-02-2024 take 1 tablet by mouth every eight hours as needed for nausea Ondansetron 4 MG tablet Discontinued 4 mg PO EVERY 8 HOURS NEEDED as needed for Nausea November 07, 2019 12:00am August 02, 2024 9:38am Start: 01-27-2017 ZOFRAN TABS as directed ONDANSETRON HCL TABS [id number] Keenan HERRERA Start: 01-27-2017 ZOFRAN TABS as directed ONDANSETRON HCL TABS [id number] Keenan HERRERA Comment on above: Take 1 tablet by catarina th once daily as needed (for nausea.). pantoprazole 40 mg delayed release oral tablet (20 sources) Proton Pump Inhibitor Start: take 1 tablet by mouth twice daily Pantoprazole 40 mg tablet,delayed release (DR/EC) Active 40 mg PO TWICE A DAY November 07, 2024 12:00am Start: 11-03-2023 End: 11-24-2023 take 1 tablet by mouth twice daily pantoprazole DR (PROTONIX) 40 mg tablet TAKE 1 TABLET BY MOUTH TWICE A DAY 180 tablet 1 11/24/2023 Active Start: 06-27-2023 End: 10-28-2023 take 1 tablet by mouth twice daily pantoprazole DR (PROTONIX) 40 mg tablet Take 1 tablet by mouth two times a day. 60 tablet 2 06/27/2023 10/28/2023 Discontinued Comment on above: Take 1 tablet by catarina th two times a day. polymyxin b [id number] unt/ml / trimethoprim 1 mg/ml ophthalmic solution (4 sources) Dihydrofolate Reductase Inhibitor Antibacterial, Polymyxin-class Antibacterial Start: End: take 1 drop(s) into the eye(s) four times daily trimethoprim-polymy viji (POLYTRIM) 10,000 unit- 1 mg/mL ophthalmic solution Indications: Abrasion of right cornea, initial encounter Use 1 Drop in the right eye four times daily for 7 days. 10 mL 01/28/2024 02/04/2024 Active Start: 12-26-2023 End: 01-02-2024 take 1 drop(s) into the eye(s) twice daily trimethoprim-polymyxin (POLYTRIM) 10,000 unit- 1 mg/mL ophthalmic solution Indications: Acute conjunctivitis of both eyes, unspecified acute conjunctivitis type Use 1 Drop in both eyes two times a day for 7 days. 10 mL 12/26/2023 01/02/2024 Discontinued Start: 08-13-2022 End: 08-20-2022 take 1 drop(s) into the eye(s) every four hours trimethoprim-polymyxin (POLYTRIM) 10,000 unit- 1 mg/mL ophthalmic solution Indications: [place] eye disease of left eye Use 1 Drop in the left eye every 4 hours for 7 days. 10 mL 0 08/13/2022 08/20/2022 Active Comment on above: Use 1 Drop in the le ft eye every 4 hours for 7 days. predniSONE 10 mg oral tablet (20 sources) Start: 02-21-2023 End: 03-05-2023 predniSONE (DELTASONE) 10 mg tablet Take 6 tabs for 3 days, then 5 tabs daily for 3 days, then 4 tabs for 3 days, then 3 tabs for 3 days, then 2 tabs for 3 days then 1 tab for 3 days with food. 63 tablet 0 02/21/2023 03/05/2023 Active Start: 04-12-2022 End: 04-17-2022 take 1 tablet by mouth once daily at mealtime predniSONE (DELTASONE) 20 mg tablet Indications: Foot pain, bilateral , Plantar fasciitis Take 1 tablet by mouth once daily for 5 days. Take daily with food. 5 tablet 04/12/2022 04/17/2022 Start: 07-21-2021 End: 06-05-2024 take 4 tablets by mouth once daily Prednisone 10 mg tablet Discontinued 10 mg PO DAILY July 21, 2021 1:00am June 05, 2024 3:30pm 40 mg p.o. daily x3 days 30 mg p.o. daily x3 days 20 mg p.o. daily x3 days 10 mg p.o. daily x3 days Start: 07-21-2021 take 40 mg by mouth once daily Prednisone Active 10 MG PO DAILY July 21, 2021 11:05am 40 mg p.o. daily x3 days 30 mg p.o. daily x3 days 20 mg p.o. daily x3 days 10 mg p.o. daily x3 days End: 11-25-2021 predniSONE 10 mg tablet pack Take by mouth once daily. 0 11/25/2021 Discontinued (Course of therapy completed) Comment on above: Take by mouth once d aily. Take 1 tablet by catarina once daily for 5 days. Take daily with food. Take 4 tabs daily x 3 days, then 3 tabs x 3 days, 2 tabs x 3 days, then 1 tab x3 days with food. Take 6 tabs for 3 da ys, then 5 tabs daily for 3 days, then 4 tabs for 3 days, then 3 tabs for 3 days, then 2 tabs for 3 days then 1 tab for 3 days with food. 24 hr propranolol hydrochloride 80 mg extended release oral capsule (20 sources) beta-Adrenergic Enrique Start: 4 End: 5 take 1 capsule by mouth once daily Propranolol 80 mg capsule,extended release 24 hr Active 80 mg PO DAILY December 14, 2023 12:00am Start: 05-02-2023 End: 10-14-2023 take 1 capsule by mouth once daily propranolol ER (INDERAL LA) 60 mg 24 hr capsule Take 1 capsule by mouth once daily. 30 capsule 5 05/02/2023 10/14/2023 Discontinued (Dosage adjustment) Start: 12-06-2022 End: 03-06-2023 take 1 capsule by mouth once daily propranolol ER (INDERAL LA) 60 mg 24 hr capsule Take 1 capsule by mouth once daily. 30 capsule 3 12/06/2022 Active Start: 04-21-2022 End: 07-20-2022 take 1 capsule by mouth once daily propranolol ER (INDERAL LA) 60 mg 24 hr capsule Take 1 capsule by mouth once daily. 30 capsule 2 04/21/2022 Active Start: 04-30-2019 End: 12-14-2023 take 1 capsule by mouth twice daily Propranolol 60 MG capsule Discontinued 60 mg PO TWICE A DAY April 30, 2019 1:00am December 14, 2023 10:10am Start: 01-27-2017 INDERAL LA 120 MG [id number] as directed PROPRANOLOL HCL [id number] Keenan HERRERA Comment on above: TAKE 1 CAPSULE BY MO UT TWICE A DAY Take 1 capsule by mo [facility] once daily. rimegepant 75 mg disintegrating oral tablet (20 sources) Start: take 1 tablet by mouth once as needed for headache Rimegepant (Nurtec Odt) 75 mg tablet,disintegrati ng Active 75 mg PO ONCE as needed for migraine headache December 14, 2023 12:00am as a single dose Start: 05-28-2022 End: 07-11-2024 take 1 tablet by mouth every twenty-four hours in the evening rimegepant (NURTEC ODT) 75 mg disintegrating tablet Take 1 dissolvable tablet by mouth at migraine onset. Take only 1 tablet per 24 hours. 8 tablet 11 08/28/2024 2:18 PM EDT 07/11/2024 Active Comment on above: Take 1 dissolvable t ablet by mouth at migraine onset. Take only 1 tablet per 24 hours. topiramate 25 mg oral tablet (20 sources) Anti-epileptic Agent Start: 08-22-2024 End: 02-18-2025 topiramate (TOPAMAX) 25 mg tablet Indications: Intractable chronic 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 , Class 3 severe obesity with serious comorbidity and body mass index (BMI) of 40.0 to 44.9 in adult, unspecified obesity type (HCC) Take 1 tablet by mouth two times a day. Patient should start on August 22, 2024. 180 tablet 1 08/22/2024 02/18/2025 Active Start: 08-02-2024 End: 01-29-2025 take 40-44.9 tablets by mouth twice daily topiramate (TOPAMAX) 50 mg tablet Indications: Intractable chronic 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 , Class 3 severe obesity with serious comorbidity and body mass index (BMI) of 40.0 to 44.9 in adult, unspecified obesity type (HCC) Take 1 tablet by mouth two times a day. 180 tablet 1 08/02/2024 01/29/2025 Active Start: 08-02-2024 take 2 tablets by mo ut twice daily Topiramate 25 mg tablet Active 50 mg PO TWICE A DAY August 02, 2024 12:00am Start: 08-02-2024 take 1 tablet by catarina at bedtime Topiramate 25 mg tablet Active 25 mg PO AT BEDTIME August 02, 2024 12:00am Start: 02-24-2024 End: 08-22-2024 take 40-44.9 tablets by mouth once daily at bedtime topiramate (TOPAMAX) 25 mg tablet Indications: Intractable chronic 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 , Class 3 severe obesity with serious comorbidity and body mass index (BMI) of 40.0 to 44.9 in adult, unspecified obesity type (HCC) Take 1 tablet by mouth daily at bedtime. 90 tablet 1 02/24/2024 07/02/2024 Discontinued Start: 01-27-2017 TOPAMAX 100 MG TABS as directed TOPIRAMATE [id number] Keenan HERRERA traMADol hydrochloride 50 mg oral tablet (20 sources) Opioid Agonist Start: 12-14-2023 take 1 tablet by mouth three times daily as needed for pain Tramadol 50 mg tablet Active 50 mg PO THREE TIMES A DAY as needed for pain December 14, 2023 12:00am Start: 02-21-2023 take 1 tablet by catarina th every six hours as needed for pain traMADol (ULTRAM) 50 mg tablet Indications: Left-sided low back pain with right-sided sciatica, unspecified chronicity Take 1 tablet by mouth every 6 hours as needed for pain. 21 tablet 02/21/2023 Active Start: 10-08-2021 End: 10-15-2021 take 1 tablet by mouth every four hours as needed for pain traMADol (ULTRAM) 50 mg tablet Indications: Sprain of right elbow, subsequent encounter Take 1 tablet by mouth every 4 hours as needed for pain for up to 7 days. 21 tablet 0 10/08/2021 10/15/2021 Active Comment on above: Take 1 tablet by catarina th every 4 hours as needed for pain for up to 7 days. Take 1 tablet by catarina th every 6 hours as needed for pain. ubrogepant 50 mg oral tablet (20 sources) Start: 07-20-2021 take 1 tablet by mouth twice daily as needed for headache, then take 1 tablet by mouth every two hours as needed for headache Ubrogepant (Ubrelvy) 50 mg tablet Active 50 mg PO TWICE A DAY as needed for migraine headache July 20, 2021 1:00am take 1 tab at onset of migraine may repeat 1 tab in 2 hrs. Start: 03-06-2021 End: 05-28-2022 ubrogepant (UBRELVY) 50 mg t ablet Take 1 tablet at onset of migraine/headache. May repeat dose in 2 hours if needed. Do not take more than 2 tablets in 24 hours. 10 tablet 5 03/06/2021 04/21/2022 Discontinued Comment on above: Take 1 tablet at ons et of migraine/headache. May repeat dose in 2 hours if needed. Do not take more than 2 tablets in 24 hours. 24 hr venlafaxine 150 mg extended release oral capsule (20 sources) Serotonin and Norepinephrine Reuptake Inhibitor Start: 08-18-19 End: 02-20-20 take 1 capsule by mouth once daily venlafaxine ER (EFFEXOR XR) 150 mg 24 hr capsule Indications: Anxiety with depression Take 1 capsule by mouth once daily. 90 capsule 3 02/20/2024 02/19/2025 Active Start: 06-27-2020 End: 08-17-2021 take 1 capsule by mouth once daily venlafaxine ER (EFFEXOR XR) 75 mg 24 hr capsule Take 1 capsule by mouth once daily. 90 capsule 3 06/27/2020 08/17/2021 Discontinued Start: 04-30-[address] [facility] once daily Venlafaxine 75 MG tablet Active 150 mg PO DAILY April 30, 2019 1:00am Start: 04-30-2019 take 150 mg by mouth once ha y Venlafaxine Active 150 MG PO DAILY April 30, 2019 2:30pm Comment on above: Take [address] [facility] once daily. Completed/Discontinued Medications Medication Drug Class(es) Dates Sig (Normalized) Sig (Original) acetaminophen 32 mg/ml oral suspension (6 sources) Start: 03-24-2018 End: 08-02-2024 take 500 mg by mouth every four hours as needed for pain Acetaminophen 160 MG/5 ML suspension Discontinued 500 mg PO EVERY 4 HOURS NEEDED as needed for Mild-Moderate Pain (1-5/10) March 24, 2018 1:00am August 02, 2024 9:35am acetaminophen 325 mg / HYDROcodone bitartrate 5 mg oral tablet (3 sources) Opioid Agonist Start: 08-13-2024 End: 10-22-2024 Hydrocodone-Acetami nophen 5-325 mg tablet Discontinued 1 {tbl} PO EVERY 4 HOURS NEEDED as needed for Pain 10 2 August 13, 2024 October 22, 2024 9:52am acetaminophen 325 mg / oxyCODONE hydrochloride 5 mg oral tablet (13 sources) Opioid Agonist Start: 05-04-2021 End: 10-08-2021 take 1 tablet by mouth every four hours as needed oxyCODONE-acetamino phen (PERCOCET) 5-325 mg tablet Indications: Aftercare Take 1 tablet by mouth every 4 hours as needed. 30 tablet 0 05/04/2021 10/08/2021 Discontinued Start: 05-31-2019 End: 06-05-2019 Oxycodone-Acetaminophen 1 TA BLET tablet Discontinued 1 {tbl} PO EVERY 4 HOURS NEEDED as needed for Pain Score 6-10/10 10 5 May 31, 2019 June 04, 2019 1:00am June 05, 2019 1:08am Start: 05-31-2019 End: 06-05-2019 take 1 tablet by mouth every four hours as needed Oxycodone-Acetaminophen Discontinued 1 TABLET PO EVERY 4 HOURS NEEDED 02 17May 31, 2019 June 05, 2019 12:08am Comment on above: Take 1 tablet by catarina th every 4 hours as needed. atropine sulfate 0.025 mg / diphenoxylate hydrochloride 2.5 mg oral tablet (20 sources) Anticholinergic, Cholinergic Muscarinic Antagonist, Antidiarrheal Start: End: take 1 tablet by mouth four times daily as needed for diarrhea diphenoxylate-atropine (LOMOTIL) 2.5-0.025 mg per tablet Indications: Gastroenteritis Take 1 tablet by mouth four times a day as needed for diarrhea for up to 7 days. 28 tablet 11/24/2023 05/14/2024 Discontinued Bupivacaine (1 source) Amide Local Anesthetic Start: End: BUPivacaine HCl 15 mg injection (SENSORCAINE) cloNIDine hydrochloride 0.1 mg oral tablet (1 source) Central alpha-2 Adrenergic Agonist Start: End: cloNIDine HCl 0.1 mg tab(s) (CATAPRES) colestipol hydrochloride 1000 mg oral tablet (8 sources) Bile Acid Sequestrant Start: End: Colestipol 1 gram tablet Discontinued 1 g PO ONCE 60 June 19, 2024 10:02am August 02, 2024 9:35am Take once daily. CPAP/BIPAP/OTHER (20 sources) Start: End: CPAP/BIPAP/OTHER Type .CPAPSettings into a note to see current settings/supplies/DME information. 1 Each 12/17/2022 11/14/2023 Discontinued Start: 12-17-2022 End: 11-14-2023 CPAP/BIPAP/OTHER Type .CPAPS ettings into a note to see current settings/supplies/DME information. 1 Each 0 12/17/2022 11/14/2023 Discontinued Start: 12-17-2022 End: 05-03-2050 CPAP/BIPAP/OTHER Type .CPAPS ettings into a note to see current settings/supplies/DME information. 1 Each 0 12/17/2022 05/03/2050 Active Comment on above: Type .CPAPSettings i nto a note to see current settings/supplies/DME information. cyclobenzaprine hydrochloride 10 mg oral tablet (20 sources) Muscle Relaxant Start: 2023 End: 2024 take 1 tablet by mouth three times daily Cyclobenzaprine 10 mg tablet Discontinued 10 mg PO THREE TIMES A DAY December 14, 2023 12:00am August 02, 2024 9:36am Start: 01-26-2019 End: 02-21-2023 take 0.5-1 tablets by mouth three times daily as needed cyclobenzaprine (FLEXERIL) 10 mg tablet Indications: Lumbar radiculopathy , Injury of back, initial encounter Take 0.5-1 tablets by mouth three times daily as needed. 20 tablet 01/26/2019 02/21/2023 Discontinued Start: 01-27-2017 CYCLOBENZAPRIN E HCL 10 MG TABS 1 tablet every 8 hours as needed for pain CYCLOBENZAPRINE HCL [id number] Keenan HERRERA Comment on above: Take 0.5-1 tablets b y mouth three times daily as needed. Take 1 tablet by catarina th three times a day as needed. cyproheptadine hydrochloride 4 mg oral tablet (1 source) Start: 2023 End: 2023 cyproheptadine 4 mg tab(s) (PERIACTIN) dihydroergotamine 0.25 mg in NaCl 0.9% 50 mL (1 source) Start: 07-19-2024 End: 07-19-2024 0.25 mg, INTRAVENOUS, at 150 mL/hr, Administer over 20 Minutes, EVERY 30 MINUTES, 4 doses, First dose on Tue07/19/24 at 1130, Last dose on Tue07/19/24 at 1300, LOADING DOSE Wait 15 minutes between doses Hazardous Potential Reproductive Risk Drug: Use appropriate PPE. dihydroergotamine 0.5 mg in NaCl 0.9% 50 mL (2 sources) Start: 07-20-2024 End: 07-20-2024 0.5 mg, INTRAVENOUS, at 100 mL/hr, Administer over 30 Minutes, EVERY 30 MINUTES, 2 doses, First dose on Tue07/20/24 at 1030, Last dose on Tue07/20/24 at 1100, Hazardous Potential Reproductive Risk Drug: Use appropriate PPE. Start: 10-28-2023 End: 10-28-2023 dihydroergotamine 0.5 mg in NaCl 0.9% 50 mL eletriptan 40 mg oral tablet (13 sources) Serotonin-1b and Serotonin-1d Receptor Agonist Start: 03-22-2018 End: 08-02-2024 Eletriptan (Relpax) 40 MG tablet Discontinued 40 mg PO .X1 PRN March 22, 2018 1:00am August 02, 2024 9:36am Start: 01-27-2017 RELPAX 40 MG T ABS as directed ELETRIPTAN HYDROBROMIDE [id number] Keenan HERRERA eptinezumab-jjmr 300 mg in NaCl 0.9% 100 mL (VYEPTI) (1 source) Start: 10-03-2023 End: 10-03-2023 eptinezumab-jjmr 300 mg in NaCl 0.9% 100 mL (VYEPTI) 2 ml famotidine 10 mg/ml injection (20 sources) Histamine-2 Receptor Antagonist Start: 07-19-2024 End: 07-20-2024 20 mg, INTRAVENOUS, NEEDED, 1 dose, Starting on Tue07/20/24 at 1010, Until Tue07/20/24 at 1036, Heartburn, REFRIGERATE Start: 10-29-2022 End: 09-09-2023 take 1 tablet by mouth at bedtime as needed famotidine (PEPCID) 20 mg tablet Indications: Epigastric pain , Nausea Take 1 tablet by mouth at bedtime as needed. 30 tablet 10/29/2022 09/09/2023 Discontinued (Discontinued by Patient) Comment on above: [facility]. hydroCHLOROthiazide 12.5 mg oral capsule (20 sources) Thiazide Diuretic Start: 2020 End: 2024 take 1 capsule by mouth once daily Hydrochlorothiazide 12.5 mg capsule Discontinued 12.5 mg PO DAILY March 31, 2021 1:00am August 02, 2024 9:37am Comment on above: Take 1 capsule by mo [facility] once daily. ibuprofen 800 mg oral tablet (12 sources) Nonsteroidal Anti-inflammatory Drug Start: 2018 End: 2021 take 1 tablet by mouth three times daily as needed for pain Ibuprofen 800 MG tablet Discontinued 800 mg PO 3 TIMES DAILY NEEDED as needed for Pain Or Fever February 28, 2019 12:00am July 21, 2021 11:01am Start: 05-24-2017 End: 03-24-2018 take 1 tablet by mouth once Ibuprofen 200 mg tablet Di scontinued 200 mg PO ONCE May 24, 2017 1:00am March 24, 2018 10:43am iron sucrose iv piggyback 20 0 mg in NaCl 0.9% 100 mL (VENOFER) (10 sources) Start: 02-20-2024 End: 02-20-2024 200 mg, INTRAVENOUS, at 400 mL/hr, Administer over 15 Minutes, ONCE, 1 dose, On Tue02/20/24 at 1430, Please conduct a 30 minute post dose observation. Refrigerate Start: 02-16-2024 End: 02-16-2024 200 mg, INTRAVENOUS, at 400 mL/hr, Administer over 15 Minutes, ONCE, 1 dose, On Tue02/16/24 at 1400, Please conduct a 30 minute post dose observation. Refrigerate Start: 02-13-2024 End: 02-13-2024 200 mg, INTRAVENOUS, at 400 mL/hr, Administer over 15 Minutes, ONCE, 1 dose, On Tue02/13/24 at 1500, Please conduct a 30 minute post dose observation. Refrigerate Start: 02-10-2024 End: 02-10-2024 200 mg, INTRAVENOUS, at 400 mL/hr, Administer over 15 Minutes, ONCE, 1 dose, On Tue02/10/24 at 1500, Please conduct a 30 minute post dose observation. Refrigerate Start: 02-07-2024 End: 02-07-2024 200 mg, INTRAVENOUS, at 400 mL/hr, Administer over 15 Minutes, ONCE, 1 dose, On Tue02/07/24 at 1400, Please conduct a 30 minute post dose observation. Refrigerate Start: 11-30-2023 End: 11-30-2023 iron sucrose iv piggyback 20 0 mg in NaCl 0.9% 100 mL (VENOFER) Start: 11-28-2023 End: 11-28-2023 iron sucrose iv piggyback 20 0 mg in NaCl 0.9% 100 mL (VENOFER) Start: 11-25-2023 End: 11-25-2023 iron sucrose iv piggyback 20 0 mg in NaCl 0.9% 100 mL (VENOFER) Start: 11-23-2023 End: 11-23-2023 iron sucrose iv piggyback 20 0 mg in NaCl 0.9% 100 mL (VENOFER) Start: 11-21-2023 End: 11-21-2023 iron sucrose iv piggyback 20 0 mg in NaCl 0.9% 100 mL (VENOFER) 1 ml ketorolac tromethamine 30 mg/ml injection (3 sources) Nonsteroidal Anti-inflammatory Drug, Cyclooxygenase Inhibitor Start: 07-19-2024 End: 07-20-2024 30 mg, INTRAVENOUS, ONCE, 1 dose, On Tue07/20/24 at 1030, Ketorolac (Toradol) is indicated for the short-term (up to 5 days) management of moderately severe acute pain. Continuation of ketorolac (Toradol) beyond 5 days increases the risk of developing serious adverse events. Please verify the duration of therapy for ketorolac (Toradol). Start: 10-28-2023 End: 10-28-2023 keTORolac 30 mg injection (T oradol) Leg Brace (YAO KNEE BRACE) [facility] [place] (20 sources) Start: 01-03-2020 End: 01-02-2024 Leg Brace (YAO KNEE BRACE[place] [facility] [place]ications: Strain of left knee, subsequent encounter Sleeve brace left knee 1 Each 01/03/2020 01/02/2024 Discontinued Start: 01-03-2020 Leg Brace (YAO KNEE BRACE) [facility] [place] Indications: Strain of left knee, subsequent encounter Sleeve brace left knee 1 Each 0 01/03/2020 Active Comment on above: Sleeve brace left kn ee lisinopril 5 mg oral tablet (20 sources) Angiotensin Converting Enzyme Inhibitor Start: 4 End: take 1 tablet by mouth once daily lisinopril (ZESTRIL) 5 mg tablet Indications: Hypertension, essential Take 1 tablet by mouth once daily. 30 tablet 2 09/09/2023 05/14/2024 Discontinued Start: 06-03-2023 End: 06-02-2024 take 1 tablet by mouth once daily lisinopril (ZESTRIL) 20 mg tablet Indications: Hypertension, essential Take 1 tablet by mouth once daily. 90 tablet 3 06/03/2023 09/09/2023 Discontinued (Changing Therapy/Dosage Form) Start: 08-18-2020 End: 08-02-2024 take 1 tablet by mouth once daily Lisinopril 10 mg Tablet Discontinued 10 mg PO DAILY April 01, 2021 1:00am August 02, 2024 9:37am Comment on above: Take 1 tablet by catarina th once daily. 100 ml magnesium sulfate 10 mg/ml injection (3 sources) Start: 07-19-2024 End: 07-20-2024 1 g, INTRAVENOUS, at 100-200 mL/hr, Administer over 0.5-1 Hours, ONCE, 1 dose, On Tue07/20/24 at 1030, Magnesium sulfate iv bolus will be infused at a rate of 1 gram/hr The following nursing units may administer 2 g dose over 1 hour if necessary: ICUs/PACU/ED, Adult Hematology/Oncology, Labor and Delivery, Cardiac Stepdown, Headache Clinic If necessary, a magnesium sulfate bolus may be administered greater than 2 g/hr for the following indications: Adult and Pediatric Asthma Exacerbations, [place] de Pointes, Pediatric BMT and Hematology/Oncology, Eclampsia or Preeclampsia Start: 10-28-2023 End: 10-28-2023 magnesium sulfate 1 g in D5W 100 mL meloxicam 15 mg oral tablet (20 sources) Nonsteroidal Anti-inflammatory Drug Start: 06-11-2020 End: 08-02-2024 take 1 tablet by mouth once daily Meloxicam 15 mg Tablet Discontinued 15 mg PO DAILY March 31, 2021 1:00am August 02, 2024 9:37am Start: 01-27-2017 MOBIC TABS as directed MELOXICAM TABS [id number] Keenan HERRERA Start: 01-27-2017 MOBIC TABS as directed MELOXICAM TABS [id number] Keenan HERRERA Comment on above: Take 1 tablet by [facility] th once daily. With food. methocarbamol iv infusion 1,000 mg in NaCl 0.9% 100 mL (ROBAXIN) (3 sources) Start: 07-20-2024 End: 07-20-2024 1,000 mg, INTRAVENOUS, Administer over 30 Minutes, ONCE, 1 dose, On Tue07/20/24 at 1030, Administer IV while in recumbent position. Maintain position for at least 10-15 minutes following infusion. Start: 07-19-2024 End: 07-19-2024 1,000 mg, INTRAVENOUS, Admin ister over 30 Minutes, ONCE, 1 dose, On Alisa 07/19/24 at 1130, Administer IV while in recumbent position. Maintain position for at least 10-15 minutes following infusion. Start: 10-28-2023 End: 10-28-2023 methocarbamol iv infusion 1, 000 mg in NaCl 0.9% 100 mL (ROBAXIN) methylPREDNISolone (20 sources) Corticosteroid Start: 10-21-2023 End: 10-26-2023 methylPREDNISolone (MEDROL, AAKASH,) 4 mg Dose-Pack Indications: Cervical radiculopathy Follow dosing instructions, take with food. 21 tablet 10/21/2023 10/26/2023 Discontinued (Course of therapy completed) Start: 10-21-2023 End: 10-27-2023 methylPREDNISolone (MEDROL, AAKASH,) 4 mg Dose-Pack Indications: Cervical radiculopathy Follow dosing instructions, take with food. 21 tablet 0 10/21/2023 10/27/2023 Active Start: 07-29-2023 End: 10-26-2023 methylPREDNISolone (MEDROL, AAKASH,) 4 mg Dose-Pack Take as instructed on packaging. 21 tablet 07/29/2023 10/26/2023 Discontinued (Course of therapy completed) Start: 07-29-2023 End: 10-26-2023 methylPREDNISolone (MEDROL, AAKASH,) 4 mg Dose-Pack Take as instructed on packaging. 21 tablet 0 07/29/2023 10/26/2023 Discontinued (Course of therapy completed) Start: 07-29-2023 methylPREDNISo lone (MEDROL, AAKASH,) 4 mg Dose-Pack Take as instructed on packaging. 21 tablet 0 07/29/2023 Active Comment on above: Take as instructed o n packaging. miSOPROStol 0.2 mg oral tablet (4 sources) Prostaglandin E1 Analog Start: 02-24-20 End: 03-09-20 miSOPROStol (CYTOTEC) 200 mcg tablet Indications: General counseling and advice for contraceptive management , Class 3 severe obesity with serious comorbidity and body mass index (BMI) of 40.0 to 44.9 in adult, unspecified obesity type (HCC) Insert 2 tablets vaginally night prior to IUD and 2 tablets morning of procedure. Each dose should be in vagina for 6-8 hours. 4 tablet 02/24/2024 03/09/2024 Discontinued naproxen 500 mg oral tablet (20 sources) Nonsteroidal Anti-inflammatory Drug Start: 11-26-19 End: 04-29-20 23 take 1 tablet by mouth twice daily as needed for pain naproxen (NAPROSYN) 500 mg tablet Indications: Chronic right-sided low back pain with right-sided sciatica Take 1 tablet by mouth twice daily as needed (for pain/inflammation). Take with food. 60 tablet 1 11/25/2021 04/29/2023 Discontinued Comment on above: Take 1 tablet by catarina th twice daily as needed (for pain/inflammation). Take with food. Take 1 tablet by catarina th two times a day as needed (for pain/inflammation). Take with food. naratriptan 2.5 mg oral tablet (20 sources) Serotonin-1b and Serotonin-1d Receptor Agonist Start: 03-22-20 End: 07-21-19 Naratriptan (Amerge) 2.5 MG tablet Discontinued 2.5 mg PO NEEDED as needed for Migraine Symptoms March 22, 2018 1:00am July 21, 2021 11:03am Comment on above: Take 1 tablet by catarina th as needed. norethindrone acetate 5 mg oral tablet (20 sources) Start: 03-28-20 End: 10-19-19 take 1 tablet by mouth once daily norethindrone (AYGESTIN) 5 mg tablet Take 1 tablet by mouth once daily for 10 days. 10 tablet 03/28/2024 10/18/2024 Discontinued Start: 01-02-2024 End: 02-24-2024 take 1 tablet by mouth three times daily norethindrone (AYGESTIN) 5 mg tablet Indications: Abnormal uterine bleeding Take 1 tablet by mouth three times per day until bleeding stops. Then take one tablet by mouth for 3 days. 60 tablet 01/02/2024 02/24/2024 Discontinued omeprazole 20 mg delayed release oral capsule (20 sources) Proton Pump Inhibitor Start: 06-03-2023 End: 01-02-2024 take 1 capsule by mouth twice daily before mealtime omeprazole (PRILOSEC) 20 mg capsule Indications: Gastroesophageal reflux disease without esophagitis , Epigastric pain Take 1 capsule by mouth two times a day. 1/2 hr before meal. 60 capsule 5 06/03/2023 01/02/2024 Discontinued Comment on above: Take 1 capsule by mo [facility] two times a day. 1/2 hr before meal. promethazine hydrochloride 25 mg oral tablet (3 sources) Phenothiazine Start: 07-19-2024 End: 07-20-2024 25 mg, ORAL, NEEDED, 1 dose, Starting on Tue07/20/24 at 1010, Until Tue07/20/24 at 1351, Nausea/Vomiting - Second Line - Enteral Start: 10-28-2023 End: 10-28-2023 promethazine 25 mg tab(s) (P HENERGAN) rizatriptan 10 mg oral tablet (13 sources) Serotonin-1b and Serotonin-1d Receptor Agonist Start: 03-22-2018 End: 07-21-2021 Rizatriptan 10 MG tablet Discontinued 10 mg PO .X1 PRN March 22, 2018 1:00am July 21, 2021 11:02am Start: 01-27-2017 MAXALT 10 MG T ABS as directed RIZATRIPTAN BENZOATE [id number] Keenan HERRERA sertraline 25 mg oral tablet (8 sources) Serotonin Reuptake Inhibitor Start: 07-04-2020 End: 08-02-2024 take 1 tablet by mouth at bedtime Sertraline 25 mg Tablet Discontinued 25 mg PO AT BEDTIME March 31, 2021 1:00am August 02, 2024 9:37am Comment on above: [facility] 1000 ml sodium chloride 9 mg/ml injection (1 source) Start: 10-28-2023 End: 10-28-2023 NaCl 0.9% 500 mL iv bolus SUMAtriptan 100 mg oral tablet (20 sources) Serotonin-1b and Serotonin-1d Receptor Agonist Start: 01-25-2018 End: 11-25-2021 Sumatriptan Succinate (Imitrex) 100 MG tablet Discontinued 100 mg PO .X1 PRN March 22, 2018 1:00am July 21, 2021 11:03am Start: 01-27-2017 IMITREX 100 MG TABS as directed SUMATRIPTAN SUCCINATE [id number] Keenan HERRERA Start: 06-20-2016 End: 10-04-2016 take 1 tablet by mouth twice daily Sumatriptan Succinate (Imitrex) 25 MG tablet Discontinued 25 mg PO TWICE A DAY 3 June 20, 2016 1:00am October 04, 2016 5:20pm use at onset of headache Comment on above: Take 1 tablet by catarina th as needed. tetracaine hydrochloride 5 mg/ml ophthalmic solution (2 sources) Camelia Local Anesthetic Start: 01-28-2024 End: 01-28-2024 tetracaine (PF) 0.5 % 1 Drop (OPTICAINE) Start: 01-28-2024 End: 01-28-2024 take 1 dose into the eye(s) once 1 Drop, RIGHT EYE, ON CE, 1 dose, On 01/28/24 at 1400, for the eye 5 ml valproic acid 100 mg/ml injection (20 sources) Mood Stabilizer, Anti-epileptic Agent Start: 07-19-2024 End: 07-20-2024 1,000 mg, INTRAVENOUS, at 300 mL/hr, Administer over 20 Minutes, ONCE, 1 dose, On Tue07/20/24 at 1030, Hazardous Potential Reproductive Risk Drug: Use appropriate PPE. Refrigerate. Start: 01-25-2024 End: 02-24-2024 divalproex ER (DEPAKOTE ER) 500 mg 24 hr tablet Take 2 tabs at bedtime for 5 days, then decrease to 1 tab at bedtime for 5 days then stop 15 tablet 01/25/2024 02/24/2024 Discontinued Start: 10-28-2023 End: 10-28-2023 valproate iv piggyback 1000 mg in NaCl 0.9% 100 mL (DEPACON) Start: 10-12-2023 End: 11-14-2023 divalproex ER (DEPAKOTE ER) 500 mg 24 hr tablet Take 2 tablets by mouth for 5 days. Then take 1 tablet by mouth for 5 days. 15 tablet 10/12/2023 11/14/2023 Discontinued Start: 05-28-2022 End: 10-29-2022 divalproex ER (DEPAKOTE ER) 500 mg 24 hr tablet Take 2 tablets by mouth for 5 days. Then take 1 tablet by mouth for 5 days. 15 tablet 0 06/15/2022 10/29/2022 Discontinued Comment on above: Take 2 tablets by mo ut for 5 days. Then take 1 tablet by mouth for 5 days. valproate sodium 1,000 mg in NaCl 0.9% 100 mL (DEPACON) (1 source) Start: 2023 End: 2023 valproate sodium 1,000 mg in NaCl 0.9% 100 mL (DEPACON) valproate sodium 1,000 mg in NaCl 0.9% 50 mL (DEPACON) (2 sources) Start: 08-12-2023 End: 08-12-2023 valproate sodium 1,000 mg in NaCl 0.9% 50 mL (DEPACON) Start: 08-12-2023 End: 08-12-2023 valproate sodium 1,000 mg in NaCl 0.9% 50 mL (DEPACON) Vonoprazan (Voquezna) 10 mg tablet (2 sources) Start: 2024 End: 10-22-2024 take 1 tablet by mouth once daily Vonoprazan (Voquezna) 10 mg tablet Discontinued 10 mg PO daily 2024 12:00am October 22, 2024 9:57am Problems Active Problems Problem Classification Problem Date Documented Da te Episodic/Chronic Abdominal pain (20 sources) Abdominal pain; Translations: [Unspecified abdominal pain] Onset: 7 Resolved: 4 Episodic Acute and chronic tonsillitis (20 sources) Chronic tonsillitis; Translations: [Chronic tonsillitis] Onset: 4 05-24-2023 Chronic Anxiety disorders (20 sources) Anxiety; Translations: [Anxiety disorder, unspecified] Onset: 0 03-17-2010 Chronic Appendicitis and other appendiceal conditions (20 sources) Acute appendicitis; Translations: [Unspecified acute appendicitis] Onset: 4 05-24-2023 Episodic Asthma (20 sources) Asthma; Translations: [Unspecified asthma, uncomplicated] Onset: 9 01-27-2017 Chronic Cardiac dysrhythmias (2 sources) Supraventricular tachycardia; Translations: [SVT (supraventricular tachycardia) (HCC)] 01-25-2024 Chronic Complications of surgical procedures or medical care (20 sources) Postoperative hemorrhage; Translations: [Postoperative hemorrhage] Onset: 4 05-24-2023 Episodic Deficiency and other anemia (20 sources) Iron deficiency anemia due to blood loss; Translations: [Iron deficiency anemia secondary to blood loss (chronic)] Onset: 4 11-08-2023 Chronic Deficiency and other anemia (1 source) Iron deficiency anemia secondary to blood loss (chronic); Translations: [Iron deficiency anemia due to chronic blood loss] Onset: 4 Chronic Diseases of white blood cells (20 sources) Neutropenia; Translations: [Neutropenia, unspecified] Onset: 9 08-07-2018 Chronic Disorders of lipid metabolism (2 sources) Mixed hyperlipidemia; Translations: [Mixed hyperlipidemia] Onset: 5 05-14-2024 Chronic Disorders of teeth and jaw (1 source) Infection of tooth; Translations: [Periapical abscess without sinus] Episodic Esophageal disorders (20 sources) Eosinophilic esophagitis; Translations: [Eosinophilic esophagitis] Onset: 4 07-06-2023 Chronic Essential hypertension (20 sources) Hypertensive disorder; Translations: [Essential hypertension] Onset: 0 01-27-2017 Chronic Fever of unknown origin (1 source) Low grade pyrexia; Translations: [Fever, unspecified] Episodic Gastrointestinal hemorrhage (3 sources) Acute lower gastrointestinal hemorrhage; Translations: [Gastrointestinal hemorrhage, unspecified] 08-13-2024 Episodic Genitourinary symptoms and ill-defined conditions (1 source) Genuine stress incontinence; Translations: [Stress incontinence (female) (male)] 02-21-2023 Chronic Headache; including migraine (20 sources) Refractory migraine without aura; Translations: [Migraine without aura, intractable, without status migrainosus] Onset: 9 Resolved: 2 10-16-2019 Chronic Headache; including migraine (3 sources) Chronic daily headache; Translations: [Chronic daily headache] Episodic Immunizations and screening for infectious disease (6 sources) Patient encounter status; Translations: [Encounter for screening for human papillomavirus (HPV)] 10-18-2023 Episodic Inflammation; infection of eye (except that caused by tuberculosis or sexually transmitteddisease) (20 sources) Conjunctivitis; Translations: [Unspecified conjunctivitis] Onset: 4 Episodic Malaise and fatigue (3 sources) Fatigue; Translations: [Other fatigue] Episodic Menstrual disorders (20 sources) Dysmenorrhea; Translations: [Dysmenorrhea, unspecified] Onset: 7 Resolved: 4 03-18-2014 Chronic Nausea and vomiting (20 sources) Nausea; Translations: [Nausea] Onset: 4 Episodic Neoplasms of unspecified nature or uncertain behavior (1 source) Thrombocytosis; Translations: [Thrombocytosis] Onset: 9 Chronic Noninfectious gastroenteritis (2 sources) Eosinophilic gastroenteritis; Translations: [Eosinophilic gastritis or gastroenteritis] 08-16-2024 Chronic Noninfectious gastroenteritis (3 sources) Gastroenteritis; Translations: [Noninfective gastroenteritis and colitis, unspecified] Onset: 4 11-24-2023 Episodic Nonspecific chest pain (1 source) Chest pain; Translations: [Chest pain, unspecified] 01-22-2022 Episodic Nutritional deficiencies (20 sources) Vitamin D deficiency; Translations: [Vitamin D deficiency, unspecified] Onset: 4 06-04-2023 Chronic Other circulatory disease (1 source) Elevated blood-pressure reading without diagnosis of hypertension; Translations: [Elevated blood-pressure reading, without diagnosis of hypertension] Episodic Other circulatory disease (1 source) Orthostatic hypotension; Translations: [Orthostatic hypotension] 09-09-2023 Episodic Other connective tissue disease (3 sources) Pain in both feet; Translations: [Pain in right foot] Episodic Other connective tissue disease (3 sources) Plantar fasciitis; Translations: [Plantar fascial fibromatosis] Episodic Other connective tissue disease (2 sources) Muscle pain; Translations: [Myalgia, unspecified site] 10-14-2023 Episodic Other disorders of stomach and duodenum (1 source) Delayed gastric emptying; Translations: [Functional dyspepsia] Episodic Other female genital disorders (4 sources) Abnormal uterine bleeding; Translations: [Abnormal uterine and vaginal bleeding, unspecified] 01-02-2024 Chronic Other female genital disorders (2 sources) Abnormal uterine and vaginal bleeding, unspecified; Translations: [Abnormal uterine bleeding (AUB)] Onset: 4 Chronic Other gastrointestinal disorders (20 sources) Malabsorption - iron; Translations: [Intestinal malabsorption, unspecified] Onset: 4 11-08-2023 Chronic Other gastrointestinal disorders (2 sources) Intestinal malabsorption, unspecified; Translations: [Iron malabsorption (HCC)] Onset: 4 Chronic Other gastrointestinal disorders (19 sources) Diarrhea; Translations: [Diarrhea, unspecified] 11-25-2023 Episodic Other gastrointestinal disorders (9 sources) Stool finding; Translations: [Other fecal abnormalities] 05-22-2024 Episodic Other gastrointestinal disorders (1 source) Other functional disorders of intestine; Translations: [Intestinal dysbiosis] 08-16-2024 Episodic Other gastrointestinal disorders (3 sources) Diarrhea, unspecified; Translations: [Diarrhea, unspecified type] Onset: 4 Episodic Other gastrointestinal disorders (1 source) Other fecal abnormalities; Translations: [Other fecal abnormalities] Onset: 5 Episodic Other hematologic conditions (1 source) H/O: blood disorder; Translations: [Personal history of diseases of the blood and blood-forming organs and certain disorders involving the immune mechanism] Episodic Other nervous system disorders (2 sources) Paresthesia of hand ; Translations: [Anesthesia of skin] 10-21-2023 Episodic Other non-traumatic joint disorders (1 source) Pain in right shoulder; Translations: [Pain in joint, shoulder region] 06-03-2023 Episodic Other nutritional; endocrine; and metabolic disorders (20 sources) Obese class II; Translations: [Obesity, unspecified] Onset: 9 07-31-2018 Chronic Other nutritional; endocrine; and metabolic disorders (1 source) Hypercalcemia; Translations: [Hypercalcemia] 09-12-2023 Chronic Other nutritional; endocrine; and metabolic disorders (20 sources) Severe obesity; Translations: [Morbid (severe) obesity due to excess calories] Onset: 4 01-02-2024 Chronic Other nutritional; endocrine; and metabolic disorders (1 source) Morbid (severe) obesity due to excess calories; Translations: [Class 3 severe obesity with serious comorbidity and body mass index (BMI) of 40.0 to 44.9 in adult, unspecified obesity type (HCC)] Onset: 4 Chronic Other nutritional; endocrine; and metabolic disorders (1 source) Body mass index (BMI) 40.0-44.9, adult; Translations: [Class 3 severe obesity with serious comorbidity and body mass index (BMI) of 40.0 to 44.9 in adult, unspecified obesity type (HCC)] Onset: 4 Chronic Other nutritional; endocrine; and metabolic disorders (2 sources) Weight loss; Translations: [Abnormal weight loss] 07-06-2024 Episodic Other nutritional; endocrine; and metabolic disorders (1 source) Abnormal weight loss; Translations: [Weight loss] Onset: Episodic Other upper respiratory disease (1 source) Disorder of nasal sinus; Translations: [Unspecified disorder of nose and nasal sinuses] 04-06-2024 Episodic Other upper respiratory infections (6 sources) Sinusitis; Translations: [Chronic sinusitis, unspecified] 07-20-2017 Chronic Other upper respiratory infections (20 sources) Pharyngitis; Translations: [Acute pharyngitis, unspecified] Onset: 4 05-24-2023 Episodic Residual codes; unclassified (20 sources) Obstructive sleep apnea syndrome; Translations: [Obstructive sleep apnea (adult) (pediatric)] Onset: 4 12-17-2022 Chronic Residual codes; unclassified (1 source) Obstructive sleep apnea (adult) (pediatric); Translations: [BLAISE (obstructive sleep apnea)] Onset: Chronic Residual codes; unclassified (2 sources) Confusional state; Translations: [Disorientation, unspecified] 03-06-2024 Episodic Spondylosis; intervertebral disc disorders; other back problems (20 sources) Low back pain; Translations: [Low back pain] Onset: 7 01-27-2017 Episodic Sprains and strains (20 sources) Low back strain; Translations: [Strain of muscle, fascia and tendon of lower back, initial encounter] Onset: 8 Resolved: 4 Episodic Superficial injury; contusion (6 sources) Contusion of left middle finger without damage to nail, initial encounter; Translations: [Abrasion of cornea of right eye] Onset: 7 02-23-2017 Episodic Thyroid disorders (20 sources) Non-toxic multinodular goiter; Translations: [Nontoxic multinodular goiter] Onset: 3 Resolved: 2 05-11-2021 Chronic Unclassified (1 source) Intestinal dysbiosis 08-16-2024 Unclassified (1 source) Class 3 severe obesity with serious comorbidity and body mass index (BMI) of 40.0 to 44.9 in adult, unspecified obesity type (HCC); Translations: [Class 3 severe obesity with serious comorbidity and body mass index (BMI) of 40.0 to 44.9 in adult, unspecified obesity type (HCC)] Onset: 4 Unclassified (1 source) Worsening headaches; Translations: [Worsening headaches] Onset: 4 Unclassified (1 source) Non-Chemotherapy Treatment Onset: 4 Unclassified (1 source) Unspecified lump in the right breast, overlapping quadrants; Translations: [Mass overlapping multiple quadrants of right breast] Onset: 4 Past or Other Problems Problem Classification Problem Date Documented Date Episodic/Chronic Biliary tract disease (20 sources) Biliary calculus; Translations: [Calculus of gallbladder with chronic cholecystitis without obstruction] Onset: 02-09-2013 Resolved: 03-18-2014 03-18-2014 Episodic Blindness and vision defects (3 sources) Eye / vision finding; Translations: [Unspecified visual disturbance] Onset: 04-06-2024 03-06-2024 Episodic Cardiac dysrhythmias (20 sources) Palpitations; Translations: [Palpitations] Onset: 02-24-2024 09-09-2023 Episodic Coma, stupor, brain damage (7 sources) Loss of consciousness; Translations: [Unspecified coma] Onset: 01-27-2017 01-27-2017 Episodic Contraceptive and procreative management (5 sources) Intrauterine contraceptive device in situ; Translations: [Encounter for routine checking of intrauterine contraceptive device] Onset: 03-22-2024 03-19-2024 Episodic Delirium, dementia, and amnestic and other cognitive disorders (20 sources) Postconcussion syndrome; Translations: [Postconcussional syndrome] Onset: 12-29-2007 Resolved: 03-18-2014 03-18-2014 Chronic Diabetes mellitus without complication (20 sources) Increased glucose level; Translations: [Other abnormal glucose] Onset: 11-25-2023 Episodic Early or threatened labor (20 sources) Premature labor; Translations: [ labor without delivery, third trimester] Onset: 10-31-2015 Resolved: 01-13-2016 01-13-2016 Episodic Esophageal disorders (1 source) Disease of esophagus, unspecified; Translations: [Disease of esophagus, unspecified] Onset: 01-03-2024 Episodic Hypertension complicating ; childbirth and the puerperium (20 sources) -induced hypertension; Translations: [Gestational [-induced] hypertension without significant proteinuria, unspecified trimester] Onset: 11-05-2015 Resolved: 01-13-2016 01-13-2016 Episodic Mood disorders (20 sources) Depressive disorder; Translations: [Depression] Onset: 07-02-2009 Resolved: 03-18-2014 03-18-2014 Chronic Neoplasms of unspecified nature or uncertain behavior (20 sources) Thrombocytosis; Translations: [Thrombocytosis] Onset: 08-07-2018 08-07-2018 Episodic Nonmalignant breast conditions (11 sources) Pain of breast; Translations: [Mastodynia] Onset: 11-09-2023 10-18-2023 Episodic Other acquired deformities (2 sources) Mallet finger; Translations: [Mallet finger of left finger(s)] Onset: 02-28-2017 03-15-2017 Episodic Other complications of (20 sources) High risk ; Translations: [Supervision of other high risk pregnancies, second trimester] Onset: 04-28-2015 Resolved: 01-13-2016 05-11-2021 Episodic Other complications of (20 sources) Anxiety in ; Translations: [Other mental disorders complicating , unspecified trimester] Onset: 11-01-2015 Resolved: 01-13-2016 05-11-2021 Episodic Other complications of (20 sources) Headache; Translations: [Other specified related conditions, unspecified trimester] Onset: 11-01-2015 Resolved: 01-13-2016 05-11-2021 Episodic Other complications of (12 sources) Other mental disorders complicating , unspecified trimester; Translations: [Mental disorders of mother, antepartum condition or complication] Onset: 11-01-2015 Resolved: 01-13-2016 05-11-2021 Episodic Other non-traumatic joint disorders (20 sources) Pain in left knee; Translations: [Pain in joint, lower leg] Onset: 07-29-2014 Resolved: 08-17-2021 02-13-2020 Episodic Other and delivery including normal (20 sources) Normal ; Translations: [Encounter for supervision of other normal , unspecified trimester] Onset: 03-18-2014 Resolved: 01-13-2016 11-01-2015 Episodic Other screening for suspected conditions (not mental disorders or infectious disease) (15 sources) Abnormal blood cell count; Translations: [Abnormal finding of blood chemistry, unspecified] Onset: 11-16-2023 09-12-2023 Episodic Residual codes; unclassified (20 sources) Gestation period, 33 weeks; Translations: [33 weeks gestation of ] Onset: 11-01-2015 Resolved: 01-13-2016 01-13-2016 Episodic Residual codes; unclassified (1 source) Disorientation, unspecified; Translations: [Confusion] Onset: 04-06-2024 Episodic Unclassified (20 sources) Transformed migraine; Translations: [Chronic migraine] Onset: 07-10-2018 Resolved: 08-17-2021 07-10-2018 Unclassified (20 sources) Elevated blood pressure; Translations: [Elevated BP] Onset: 10-31-2015 Resolved: 01-13-2016 01-13-2016 Results Test Name Value Interpretation Reference Range Facility EGD Reporton 10-24-2024 EGD Report [facility] Medical Records Department [address] [place] [id number] EGD Report MR#: [id number] Acct: [id number] Name: MARIA ELENA GARAY Rep #: [id number] : 1990 34 From: Salbador Fofana DO PCP: Dr. Jes Fuentes MD Status:[facility] Patient Name: Maria Elena Garay Procedure Date: 10/24/2024 12:55 PM Date of : 1990 Age: 34 Procedure: Upper GI endoscopy Indications: Epigastric abdominal pain, Functional Dyspepsia, Dysphagia Providers: Salbador Fofana DO Referring MD: Jes Fuentes Medicines: Monitored Anesthesia Care Patient Profile: This is a 34 year old female. Refer to note in patient chart for documentation of history and physical. Patient has symptoms of chronic abdominal cramping, acute epigastric abdominal pain, dysphagia with both liquids and solids, chronic dyspepsia and chronic nausea. Complications: No immediate complications. Procedure: Pre-Anesthesia Assessment: - Prior to the procedure, a History and Physical was performed, and patient medications and allergies were reviewed. The patient is competent. The risks and benefits of the procedure and the sedation options and risks were discussed with the patient. All questions were answered and informed consent was obtained. Patient identification and proposed procedure were verified by the physician in the pre-procedure area. Mental Status Examination: alert and oriented. Airway Examination: normal oropharyngeal airway and neck mobility. Respiratory Examination: clear to auscultation. CV Examination: normal. Prophylactic Antibiotics: The patient does not require prophylactic antibiotics. Prior Anticoagulants: The patient has taken no anticoagulant or antiplatelet agents. ASA Grade Assessment: II - A patient with mild systemic disease. After reviewing the risks and benefits, the patient was deemed in satisfactory condition to undergo the procedure. The anesthesia plan was to use monitored anesthesia care (MAC). Immediately prior to administration of medications, the patient was re-assessed for adequacy to receive sedatives. The heart rate, respiratory rate, oxygen saturations, blood pressure, adequacy of pulmonary ventilation, and response to care were monitored throughout the procedure. The physical status of the patient was re-assessed after the procedure. After obtaining informed consent, the endoscope was passed under direct vision. Throughout the procedure, the patient's blood pressure, pulse, and oxygen saturations were monitored continuously. The Endoscope was introduced through the mouth, and advanced to the fourth part of the duodenum. Small bowel enteroscopy was deemed necessary. The upper GI endoscopy was accomplished without difficulty. The patient tolerated the procedure well. Scope In: 1:08:01 PM Scope Out: 1:11:51 PM Total Procedure Duration Time 0 hours 3 minutes 50 seconds Findings: Mucosal changes including ringed esophagus, feline appearance, longitudinal furrows, small-caliber esophagus and white plaques were found in the entire esophagus. Esophageal findings were graded using the Eosinophilic Esophagitis Endoscopic Reference Score (EoE-EREFS) as: Edema Grade 1 Present (decreased clarity or absence of vascular markings), Rings Grade 1 Mild (subtle circumferential ridges seen on esophageal distension), Exudates Grade 1 Mild (scattered white lesions involving less than 10 percent of the esophageal surface area) and Furrows Grade 1 Mild (vertical lines without visible depth). Biopsies were taken with a cold forceps for histology. Verification of patient identification for the specimen was done. Estimated blood loss was minimal. Patchy mildly erythematous mucosa without bleeding was found in the stomach. [Extent] [Severity] erythematous mucosa [Bleeding] was found [Site]. Biopsies were taken with a cold forceps for histology. Verification of patient identification for the specimen was done. Estimated blood loss was minimal. Biopsies were taken with a cold forceps for Helicobacter pylori testing. Verification of patient identification for the specimen was done. Estimated blood loss was minimal. Patchy mildly erythematous mucosa without active bleeding and with no stigmata of bleeding was found in the duodenal bulb. Biopsies were taken with a cold forceps for histology. Verification of patient identification for the specimen was done. Estimated blood loss was minimal. Suspect gastroparesis due to absence of peristalsis, patient symptoms and retained gastric contents. Impression: - Esophageal mucosal changes secondary to eosinophilic esophagitis. Biopsied. - Erythematous mucosa in the stomach. - Erythematous mucosa in the [Location]. Biopsied. - Erythematous duodenopathy. Biopsied. Recommendation: - Discharge patient to home. - Patient (more content not included)... Normal [facility] Immunohistochemical Stainson 10-24-2024 Immunohistochemical Stains Patient Age/Sex Location Account Attending Physician MARIA ELENA GARAY 34/F EN [id number] Salbador Friend, DO Specimen: [id number] Received: 10/24/24 Status: GLENIS Garay Num: [id number] Spec Type: EGD BIOPSY Subm Dr: Salbador Fofana DO [facility] OPERATION: EGD with biopsy PRE-OP DIAGNOSIS: Epigastric abdominal pain, eosinophilic esophagitis, abdominal pain TISSUE SUBMITTED: A- Random esophagus biopsy, B- Duodenum biopsy, C- Gastric body biopsy MICROSCOPIC DIAGNOSIS A. Esophagus, random, biopsies: * Benign squamous epithelium with extensive eosinophilia (70 to 75 eosinophils per high power field) B. Small intestine, duodenum: * Benign duodenal mucosa without active inflammation C. Stomach, body: * Fundic mucosa with slight chronic inflammation * An immunohistochemical stain for Helicobacter pylori is negative MICROSCOPIC DESCRIPTION Slides are reviewed. All matched controls reacted appropriately. These tests were developed and their performance characteristics determined by [facility] Laboratory. They may not have been cleared or approved by the U.S. Food and Drug Administration. The FDA has determined that such clearance or approval is not necessary. The above immunohistochemical/dual CHERRY markers are ordered and reviewed by the Pathologist. GROSS DESCRIPTION Received in 3 formalin containers labeled the patient's name and date of . Designated as: A. Random esophagus BX is a 1.3 x 0.5 x 0.1 cm aggregate of cisse tissue fragments. Entirely submitted in 1 cassette. B. Duodenum BX are 2 cisse tissue fragments, 0.6 cm each and admixed with flocculent material. Entirely submitted in 1 cassette. C. Gastric body BX for H. pylori and path are 2 cisse tissue fragments, 0.4 cm and 0.5 cm. Entirely submitted in 1 cassette. [facility] [place] 10/24/2024 CPT:92811l3,69161 Patient Age/Sex Location Account Attending Physician MARIA ELENA GARAY 34/F EN [id number] Salbador Fofana, DO Signed (signature on file) Dr. Steve Bales MD 10/25/24 1535 [facility] Comment on above: Performed By: #### P LUCAS ####[facility] [id number], [address] MR/POSTOP.ANEon 10-24-2024 MR/POSTOP.[facility] Medical Records Department [address] [place] [address] Anesthesia Postop Eval I 10/24/24 1329 MR#: [id number] Acct: [id number] Name: MARIA ELENA GARAY Rep #: [id number] : 1990 34 From: Deonte Louis PCP: Dr. Jes Fuentes MD Status:[facility] Y Race: C Location: [place] [address] Anesthesia: Postop Eval I Current Vital Signs Temperature: 97.8 F Pulse Rate: 70 Blood Pressure: 117/68 Respiratory Rate: 16 Pulse Ox: 97 Oxygen Delivery Method: Room Air Assessment Airway patent: Yes Spontaneous unlabored respirations: Yes Mental status: Awake and Calm nausea: No Vomiting: No Anesthesia Complication: No Fluid Hydration Crystalloid volume administer (ml): 400 Total IV fluid infused: 400 Progress Note Anesthesia document: Postop Eval 1 completed: Yes 10/24/24 1330 Date Deonte Whalen Signature: Date CC: Signed Normal [facility] MR/NNIVKKPV8ko 10-24-2024 MR/POSTOPAN2 [facility] Medical Records Department [address] [place] [address] Anesthesia Postop Eval II 10/24/24 1356 MR#: [id number] Acct: [id number] Name: MARIA ELENA GARAYN Rep #: [id number] : 1990 34 From: Rolly Rm MD PCP: Dr. Jes Fuentes MD Status:[facility] Y Race: C Location: EN Anesthesia Postop Eval I Sum Postop Eval Completion status Anesthesia document: Postop Eval 1 completed: Yes Anesthesia Postop Eval I Summary Anesthesia Postop Eval I Summary: Anesthesia Postop Eval I: Assessment Summary Airway patent Yes 10/24/24 13:29 [email or web address] Spontaneous unlabored Yes 10/24/24 13:29 [email or web address] respirations Mental status Awake,Calm 10/24/24 13:29 [email or web address] nausea No 10/24/24 13:29 [email or web address] Vomiting No 10/24/24 13:29 [email or web address] Anesthesia Postop Eval I: Fluid Summary Crystalloid volume administer 400 10/24/24 13:29 [email or web address] (ml) Colloids volume administered ( ml) Blood Product volume administered (ml) Total IV fluid infused 400 10/24/24 13:29 [email or web address] Anesthesia Postop Eval I: Summary Notes Anesthesia Complication No 10/24/24 13:29 [email or web address] Anesthesia Complication Comment: Post-operative progress note Anesthesia: Postop Eval II Evaluation Mental status: Awake Pain Level: 0 nausea: No Vomiting: No 10/24/24 1356 Date Rolly Rm MD Cosigner Signature: Date CC: Signed [facility] MR/Cristopher 10-23-2024 /[facility] Medical Records Department [address] [place] [address] PAT - Anesthesia 10/23/24 1024 MR#: [id number] Acct: [id number] Name: MARIA ELENA GARAY Rep #: [id number] : 1990 34 From: Rolly Rm MD PCP: Dr. Jes Fuentes MD [facility] [place] [facility] [place] Y Race: C Location: EN Pre-Assessment Diagnosis/Proposed Procedure Planned Operative Procedure(s): EGD Anesthesia History Anesthesia History - manager training and development: Anesthesia History - manager training and development Hx Hospitalization No 10/22/24 10:14 Any Problems With Anesthesia No 10/22/24 10:14 Cholinesterase deficiency No 10/22/24 10:14 You/Your Family Experience No 10/22/24 10:14 fever (hyperthermia) with Relationship Recent Exposure to Contagious No 08/14/24 13:23 Disease Does patient have nerve No 10/22/24 10:14 stimulator Patient instructed to have device shut off --Does patient have Pacemaker or ICD? When Was Last Pacemaker Check QUESTION #4 FULL TEXT: You/Your Family Experience fever (hyperthermia) with Anesthesia Last Oral Intake Last Oral intake: Last Oral Intake NPO since Meds taken in AM with sips of water? Meds patient instructed to take am of surgery PONV PONV - manager training and development: PONV - manager training and development Female Yes 10/22/24 10:14 HX of Motion Sickness Yes 10/22/24 10:14 HX of N/V After Surgery Yes 10/22/24 10:14 Non-Smoker Yes 10/22/24 10:14 Duration of Surgery greater No 10/22/24 10:14 than 60 minutes Number of Risk Factors 4 10/22/24 10:14 PONV Score Severe Risk 10/22/24 10:14 Height Weight Height Weight: Anesthesia: Height Weight Height 5 ft 5 in 08/14/24 13:23 Respiratory Assessment Respiratory Assessment - manager training and development: Respiratory Tract Infection Hx - manager training and development Hx Respiratory Tract Infection No 10/22/24 10:14 STOP Sleep Apnea STOP Sleep Apnea - manager training and development: STOP Sleep Apnea - manager training and development Hx Hypertension No 10/22/24 10:14 Hx Sleep Apnea Yes 10/22/24 10:14 CPAP No 10/22/24 10:14 BIPAP No 10/22/24 10:14 Do you snore loudly (louder than talking or can be heard Do you often feel tired/ fatigued/ sleepy during daytime? Has anyone observed you stop breathing during sleep? STOP Results Positive 10/22/24 10:14 QUESTION #5 FULL TEXT : Do you snore loudly (louder than talking or can be heard through closed doors)? 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 Specify any problems Hx of Preganancy in last 3 No 10/22/24 10:14 Months Nurse Filling Out Transfusion JZOLLINGE 10/22/24 10:14 Questions: Date: 10/22/24 10/22/24 10:14 Time: 10:15 10/22/24 10:14 Patient unable to answer at this time (ie. 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: /Reproductive Hx- manager training and development Hx Now No 10/22/24 10:14 Gestational Age (in weeks): EDC: Hx Hx Para Hx Section SAB No 10/22/24 10:14 [facility] Medical History (Updated 10/22/24 @ 10:14 by Soraida Blake) Diabetes Wears glasses Anemia Back pain Injury of head and neck Difficulty swallowing Gastric reflux Non-smoker Sleep apnea History of echocardiogram History of stress test Hypertension Cardiology follow-up encounter History of irregular heartbeat Anxiety Arthritis Asthma Tonsillectomy planned Migraines Home Medications ???Medication ???Instructions ???Recorded ???Last Taken ???Type gabapentin 100 mg capsule 400 mg PO TID MIGRAINS 10/04/16 History albuterol sulfate 90 mcg/actuation 1 - 2 puff inhalation Q6H PRN ND N 03/22/18 07/20/21 History aerosol inhaler (ProAir HFA) Asthma venlafaxine 75 mg tablet 150 mg PO DAILY 04/30/19 07/20/21 History cholecalciferol (vitamin D3) 125 125 mcg PO DAILY 03/31/21 07/20/21 History mcg (5,000 unit) tablet melatonin 10 mg tablet 10 mg PO QHS PRN sleep 03/31/21 History ubrogepant 50 mg tablet (Ubrelvy) 50 mg PO BID PRN (more content not included)... [facility] CNOVon 10-03-2024 CNOV Normal [facility] CNOVon 10-02-2024 CNOV Normal [facility] CNPNon 10-02-2024 CNPN Normal [facility] CNPNon 09-17-2024 CNPN Normal [facility] CBC W Auto Differential pane l (Bld)on 09-12-2024 Basophils (Bld) [#/Vol] 0.05 10*3/uL Normal <0.11 [facility] Comment on above: Order Comment: Speci men Type: BLOOD SPECIMENOrdering Facility: [facility] Address: [address] [place] [address] Performed By: #### 5 7021-8 ####[facility] [id number] [place] [address] [place] Basophils/100 WBC (Bld) 0.5 % Normal [facility] Comment on above: Order Comment: Speci men Type: BLOOD SPECIMENOrdering Facility: [facility] Address: [address] [place] [address] Performed By: #### 5 7021-8 ####[facility] [id number] [place] [address] [place] Differential cell count method Nom (Bld) Auto Normal [facility] Comment on above: Order Comment: Speci men Type: BLOOD SPECIMENOrdering Facility: [facility] Address: [address] [place] [address] Performed By: #### 5 7021-8 ####[facility] [id number] [place] [address] [place] Eosinophils (Bld) [#/Vol] 0.44 10*3/uL Normal <0.46 [facility] Comment on above: Order Comment: Speci men Type: BLOOD SPECIMENOrdering Facility: [facility] Address: [address] [place] [address] Performed By: #### 5 7021-8 ####[facility] MILLWNCLIA [id number] [place] [address] [place] Eosinophils/100 WBC (Bld) 4.3 % Normal [facility] Comment on above: Order Comment: Speci men Type: BLOOD SPECIMENOrdering Facility: [facility] Address: [address] [place] [address] Performed By: #### 5 7021-8 ####[facility]ITALERICKLIA [id number] [place] [address] [place] Erythrocyte distribution width (RBC) [Ratio] 13.2 % Normal 11.5-15.0 [facility] Comment on above: Order Comment: Speci men Type: BLOOD SPECIMENOrdering Facility: [facility] Address: [address] [place] [address] Performed By: #### 5 7021-8 ####[facility]ITALLIA [id number] [place] [address] [place] Hematocrit (Bld) [Volume fraction] 39.4 % Normal 36.0-46.0 [facility] Comment on above: Order Comment: Speci men Type: BLOOD SPECIMENOrdering Facility: [facility] Address: [address] [place] [address] Performed By: #### 5 7021-8 ####[facility]ALL[facility] [id number] [place] [address] [place] Hemoglobin (Bld) [Mass/Vol] 13.2 g/dL Normal 11.5-15.5 [facility] Comment on above: Order Comment: Speci men Type: BLOOD SPECIMENOrdering Facility: [facility] Address: [address] [place] [address] Performed By: #### 5 7021-8 ####[facility]ITALNCLIA [id number] [place] [address] [place] Immature granulocytes (Bld) [#/Vol] 0.07 10*3/uL Normal <0.10 [facility] Comment on above: Order Comment: Speci men Type: BLOOD SPECIMENOrdering Facility: [facility] Address: [address] [place] [address] Performed By: #### 5 7021-8 ####[facility] [id number] [place] [address] [place] Immature granulocytes/100 WBC (Bld) 0.7 % Normal [facility] Comment on above: Order Comment: Speci men Type: BLOOD SPECIMENOrdering Facility: [facility] Address: [address] [place] [address] Performed By: #### 5 7021-8 ####[facility]ITALNCLI [id number] [place] [address] [place] Lymphocytes (Bld) [#/Vol] 2.64 10*3/uL Normal 1.00-4.00 [facility] Comment on above: Order Comment: Speci men Type: BLOOD SPECIMENOrdering Facility: [facility] Address: [address] [place] [address] Performed By: #### 5 7021-8 ####[facility] [id number] [place] [address] [place] Lymphocytes/100 WBC (Bld) 26.0 % Normal [facility] Comment on above: Order Comment: Speci men Type: BLOOD SPECIMENOrdering Facility: [facility] Address: [address] [place] [address] Performed By: #### 5 7021-8 ####[facility]ITALNCLI [id number] [place] [address] [place] MCH (RBC) [Entitic mass] 26.6 pg Normal 26.0-34.0 [facility] Comment on above: Order Comment: Speci men Type: BLOOD SPECIMENOrdering Facility: [facility] Address: [address] [place] [address] Performed By: #### 5 7021-8 ####[facility] RACHELL [id number] [place] [address] [place] MCHC (RBC) [Mass/Vol] 33.5 g/dL Normal 30.5-36.0 [facility] Comment on above: Order Comment: Speci men Type: BLOOD SPECIMENOrdering Facility: [facility] Address: [address] [place] [address] Performed By: #### 5 7021-8 ####[facility]OSPITALOUMOU [id number] [place] [address] [place] MCV (RBC) [Entitic vol] 79.3 fL Low 80.0-100.0 [facility] Comment on above: Order Comment: Speci men Type: BLOOD SPECIMENOrdering Facility: [facility] Address: [address] [place] [address] Performed By: #### 5 7021-8 ####[facility]ITALOUMOU [id number] [place] [address] [place] Monocytes (Bld) [#/Vol] 0.59 10*3/uL Normal <0.87 [facility] Comment on above: Order Comment: Speci men Type: BLOOD SPECIMENOrdering Facility: [facility] Address: [address] [place] [address] Performed By: #### 5 7021-8 ####[facility]ITALNCLIA [id number] [place] [address] [place] Monocytes/100 WBC (Bld) 5.8 % Normal [facility] Comment on above: Order Comment: Speci men Type: BLOOD SPECIMENOrdering Facility: [facility] Address: [address] [place] [address] Performed By: #### 5 7021-8 ####[facility] MILLTOWNCLIA [id number] [place] [address] [place] Neutrophils (Bld) [#/Vol] 6.35 10*3/uL Normal 1.45-7.50 [facility] Comment on above: Order Comment: Speci men Type: BLOOD SPECIMENOrdering Facility: [facility] Address: [address] [place] [address] Performed By: #### 5 7021-8 ####[facility]PITALLIA [id number] [place] [address] [place] Neutrophils/100 WBC (Bld) 62.7 % Normal [facility] Comment on above: Order Comment: Speci men Type: BLOOD SPECIMENOrdering Facility: [facility] Address: [address] [place] [address] Performed By: #### 5 7021-8 ####[facility]PITALLIA [id number] [place] [address] [place] Nucleated RBC (Bld) [#/Vol] 10*3/uL Normal <0.01 [facility] Comment on above: Order Comment: Speci men Type: BLOOD SPECIMENOrdering Facility: [facility] Address: [address] [place] [address] Performed By: #### 5 7021-8 ####[facility]ITALL[facility] [id number] [place] [address] [place] Nucleated RBC/100 WBC (Bld) [Ratio] 0.0 /100 WBC Normal [facility] Comment on above: Order Comment: Speci men Type: BLOOD SPECIMENOrdering Facility: [facility] Address: [address] [place] [address] Performed By: #### 5 7021-8 ####[facility]PITALNCLIA [id number] [place] [address] [place] Platelet mean volume (Bld) [Entitic vol] 9.5 fL Normal 9.0-12.7 [facility] Comment on above: Order Comment: Speci men Type: BLOOD SPECIMENOrdering Facility: [facility] Address: [address] [place] [address] Performed By: #### 5 7021-8 ####[facility]ITALNCLIA [id number] [place] [address] [place] Platelets (Bld) [#/Vol] 465 10*3/uL High 150-400 [facility] Comment on above: Order Comment: Speci men Type: BLOOD SPECIMENOrdering Facility: [facility] Address: [address] [place] [address] Performed By: #### 5 7021-8 ####[facility]ITALNCLIA [id number] [place] [address] [place] RBC (Bld) [#/Vol] 4.97 10*6/uL Normal 3.90-5.20 [facility] Comment on above: Order Comment: Speci men Type: BLOOD SPECIMENOrdering Facility: [facility] Address: [address] [place] [address] Performed By: #### 5 7021-8 ####[facility]ITALNCLIA [id number] [place] [address] [place] WBC (Bld) [#/Vol] 10.14 10*3/uL Normal 3.70-11.00 [facility] Comment on above: Order Comment: Speci men Type: BLOOD SPECIMENOrdering Facility: [facility] Address: [address] [place] [address] Performed By: #### 5 7021-8 ####[facility]ITALNCLIA [id number] [place] [address] [place] Ferritin SerPl-mCncon 2024 Ferritin [Mass/Vol] 106.0 ng/mL Normal 14.7-205.1 [facility] Comment on above: Order Comment: Speci men Type: BLOOD SPECIMENOrdering Facility: [facility] Address: [address] [place] [address] Performed By: #### 2 276-4, 07954-6, 2132-01 ####[facility] LABCLIA [id number] [place] [id number] [place] Iron and Iron binding capaci ty panelon 09-12-2024 Iron [Mass/Vol] 91 ug/dL Normal 41-186 [facility] Comment on above: Order Comment: Speci men Type: BLOOD SPECIMENOrdering Facility: [facility] Address: [address] [place] [address] Performed By: #### 2 276-4, 86453-6, 2132-01 ####[facility] LABIA [id number] [address] [place] Iron binding capacity [Mass/Vol] 339 ug/dL Normal 232-386 [facility] Comment on above: Order Comment: Speci men Type: BLOOD SPECIMENOrdering Facility: [facility] Address: [address] [place] [address] Performed By: #### 2 276-4, 86201-3, 2132-01 ####[facility] LABIA [id number] [place] [id number] [place] Iron/TIBC [Molar ratio] 26.8 % Normal 15.0-57.0 [facility] Comment on above: Order Comment: Speci men Type: BLOOD SPECIMENOrdering Facility: [facility] Address: [address] [place] [address] Performed By: #### 2 276-4, 19868-0, 2132-01 ####[facility] LABCLIA [id number] [address], [facility] [place] Methylmalonate SerPl-sCncon 09-12-2024 Methylmalonate [Moles/Vol] 0.11 umol/L Normal <=0.40 [facility] Comment on above: Order Comment: Sultana mondragon Type: BLOOD SPECIMENOrdering Facility: [facility] Address: [address] [place] [address] Result Comment: This test was developed, and its performance characteristics determined by the [facility] Department of Pathology and Laboratory Medicine. It has not been cleared or approved by the FDA. The [facility] Department of Pathology and Laboratory Medicine is regulated under CLIA as qualified to perform high-complexity testing. This test is used for clinical purposes. It should not be regarded as investigational or for research. Performed By: #### 1 3964-2 ####[facility] [facility] [id number] [place] [address] [place] VITAMIN Con 09-12-2024 VITAMIN C 34 umol/L Normal 23-114 [facility] Comment on above: Order Comment: Sultana mondragon Type: BLOOD SPECIMENOrdering Facility: [facility] Address: [address] [place] [address] Result Comment: Tracey min C concentrations lower than 11 umol/L indicate deficiency.Concentrations between 11 and 23 umol/L are consistent with amoderate risk of deficiency due to inadequate tissue stores.Vitamin C concentration is reported as micromoles per liter(umol/L). To convert concentration to milligrams per deciliter(mg/dL), multiply the result by 0.0176.This test was developed and its performance characteristicsdetermined by [facility]. It has not been cleared orapproved by the [place] Food and Drug Administration. This test wasperformed in a CLIA certified laboratory and is intended forclinical purposes.Performed By: [facility] [place], [place] [address] Director: Claudy Landers MD, PhDCLIA Number: [id number] Performed By: #### V ITC ####[facility] [id number] [place] [address] Vit B12 SerPl-mCncon 025 Cobalamin (Vitamin B12) [Mass/Vol] 513 pg/mL Normal 232-1245 [facility] Comment on above: Order Comment: Speci men Type: BLOOD SPECIMENOrdering Facility: [facility] Address: [address] [place] [address] Performed By: #### 2 276-4, 31623-7, 2132-9 ####[facility]CLIA [id number] [address] [facility] [address] [place] CNPNon 09-10-2024 CNPN Normal [facility] CNPNon 08-20-2024 CNPN Normal [facility] CNOVon 08-16-2024 CNOV Normal [facility] Gastroenterology Visit Repor ton 2024 Gastroenterology Visit Report [facility]astroenterology [address] [place] [address] OFFICE VISIT Date of Service: 08/15/24 MR#: [id number] Acct: [id number] Name: MARIA ELENA GARAYN Rep #: [id number] : 1990 Provider: JAVIER Escobar Age/Sex: 34/F Location[place] [facility] [place] Status: Signed Intake Vital Signs 08/13/24 14:32 08/14/24 13:23 Height 5 ft 5 in 5 ft 5 in Intake Visit Reasons: Abdominal pain Chief Complaint: loose stool Is patient in pain?: Yes Allergies metoclopramide (From Reglan) Adverse Reaction (Verified 08/06/24 08:10) severe anxious prochlorperazine (From Compazine) Adverse Reaction (Verified 08/06/24 08:10) severe anxious Patient : No Have you fallen in the past year?: No Nurse's Note: OV 06.17.24 Pt here for f/u and reports increased abdominal pain and diarrhea. Pt continues taking pantoprazole and ondansetron. [facility] Medical History Wears glasses Anemia Back pain Injury of head and neck Difficulty swallowing Gastric reflux Non-smoker Sleep apnea History of echocardiogram History of stress test Hypertension Cardiology follow-up encounter History of irregular heartbeat Anxiety Arthritis Asthma Tonsillectomy planned Migraines Surgical History History of esophagogastroduodenosco py (EGD) Hx of tubal ligation Hx of tonsillectomy History of appendectomy S/P cholecystectomy S/P left knee arthroscopy tubes clamped Family History Mother Thyroid cancer Skin cancer Hypertension Social History household members: spouse Smoking Status: Never smoker alcohol intake: never substance use type: does not use HPI HPI Chief Complaint: loose stool Details: MARIA ELENA GARAY, is a 34 F who presents to the office today for f/u. BGI established .. with diarrhea x2 months. PCP ordered stool testing which was unremarkable besides a slight elevation in the calprotectin. She is s/p cholecystectomy. No hx of colonoscopy. She had an EGD in Jun 2023 without possible EOE. *Start colestipol 1 gram daily Colonoscopy 08.06.24; - Congested mucosa in the entire examined colon. Biopsied. - Diverticulosis in the recto-sigmoid colon and in the sigmoid colon. - Congested mucosa in the terminal ileum. Biopsied. *biopsy consistent with reactive lymphoid follicles which may be a pre curser to IBD OV 4.2.25; Pt now struggling with epigastric pain. She describes it as stabbing. Worse with oral intake. SHe has had issues dania this before and underwent EGD for it. She continues to have diarrhea but this is not her main concern. She did not take the colestipol yet. ROS Const Constitutional: Positive for fatigue, headache(s) and weight change; No fever(s) ENT ENT: Positive for headache(s) and difficulty swallowing Gastro GI: Positive for abdominal pain, bloating, diarrhea, difficulty swallowing, excessive flatus, Blood in stool and nausea/dyspepsia; No belching, change in bowel habits, change in stool character, coffee ground emesis, constipation, cramping, heartburn, feeling full early, incontinent of stools, Vomiting blood/hematemesis, loose stools, Black,tarry stools, pain with swallowing, vomiting or other Musc Musculoskeletal: Positive for joint pain, back pain, stiffness and Arthritis Skin Skin: No yellowing of the eye or itchy eyes Neuro Neurology: Positive for headache(s) Psych Psychiatric: No anxiety and No depression Endo Endocrine: Positive for fatigue and weight change Aller/Imm Allergy/Immunologic: No itchy eyes Ac/Lymp Hematologic/Lymphatic: No easy bleeding or easy bruising Exam Const General: cooperative and comfortable Nutritional Appearance: average body habitus and well nourished HENMT Head: normal to inspection Ears: hearing grossly normal bilaterally Nose: external nose normal Face and sinus: normal facial exam Eyes General: appearance normal, both eyes and all related structures Neck Neck: normal visual inspection Chest Chest palpation inspection: normal inspection of the chest and normal palpation of entire chest wall Resp Effort Inspection: normal respiratory effort Auscultation: Bilateral: Clear to Auscultation Cardio Palpation: normal PMI Rate: regular rate Rhythm: regular rhythm GI Inspection: normal to inspection Auscultation: normal bowel sounds Percussion: normal to percussion Palpation: no hepatosplenomegaly Skin General: no rashes or lesions noted Neuro General: patient alert Extrem General: normal to inspection Psych Affect: normal affect Assessment and Plan Assessment and Plan (1) Abdominal pain: Status: Ac (more content not included)... Normal [facility] CNPNon 08-14-2024 CNPN Normal [facility] Abdomen/Pelvis W IV Cont ONL Yon 08-13-2024 Abdomen/Pelvis W IV Cont ONLY [facility] Imaging Services [address] [place] [address] Abdomen/Pelvis W IV Cont ONLY MR#: [id number] Acct: [id number] Name: MARIA ELENA GARAY Rep #: [id number] : 1990 F 33 From: Viktoriya Lechuga nd, MD PCP: Dr. Jes Fuentes MD Status: REG ER Study: Abdomen/Pelvis W IV Cont ONLY Date of Exam: Exam# [id number] Ordering Dr: Guevara Trevino DO PROCEDURE: ABDOMEN/PELVIS W IV CONT ONLY 08/13/2024 REASON FOR EXAM: 33-year-old female, colonoscopy on Tuesday, abdominal pain and BRBPR since Tuesday. TECHNIQUE: Abdomen and pelvis CT with intravenous contrast. Coronal and Sagittal reconstruction series were provided. PATIENT PREPARATION: Per protocol ORAL CONTRAST TYPE: None. CONTRAST: Isovue 370 VOLUME: 100mL One or more dose reduction techniques were used (e.g., Automated exposure control, adjustment of the mA and/or kV according to patient size, use of iterative reconstruction technique. RADIATION DOSE SUMMARY: CTDlvol: 26 mGy DLP: 1400 mGycm COMPARISON: CT abdomen pelvis 04/24/2021. FINDINGS: Lung bases: The lung bases are clear. The heart is normal in size. Liver: The liver is normal in size without focal hepatic mass. The major portal veins are patent. Minimal biliary ductal dilation. Gallbladder: Surgically absent. Spleen: Unremarkable. Pancreas: Unremarkable. Adrenals: Unremarkable. Kidneys: No hydronephrosis or nephrolithiasis. Bladder: Mildly distended and unremarkable. Reproductive Organs: Normal uterine size and contour. Ovaries are unremarkable. Right corpus luteum. Bowel: The bowel loops are normal in caliber. No ascites or pneumoperitoneum. Prior appendectomy. Lymph nodes: No suspicious lymph node enlargement. Vasculature: The abdominal aorta and IVC are normal. Bones: Unremarkable. CT/Abdomen/Pelvis W IV Cont ONLY IMPRESSION: UNREMARKABLE CONTRAST-ENHANCED CT OF THE ABDOMEN AND PELVIS Reading Location: [facility] CC: Dr. Guevara Trevino DO; Dr. Jes Fuentes MD Drying Tumbler Operator: Signed Normal [facility] Absolute lymphocyte countOrd ered By: Guevara Trevino on 08-13-2024 Lymphocytes Auto (Unsp spec) [#/Vol] 2.75 10*3/uL 0.83-4.51 [facility] Absolute neutrophil countOrd ered By: Guevara Trevino on 08-13-2024 Neutrophils (Bld) [#/Vol] 9.8 10*3/uL High 2.0-7.7 [facility] Anion gap in Serum or Plasma Ordered By: Guevara Trevino on 08-13-2024 Anion gap [Moles/Vol] 15 mmol/L 5-15 [facility] Automated lymphocyte count a s percentage of total leukocytesOrdered By: Guevara Trevino on 08-13-2024 Lymphocytes/100 WBC Auto (Unsp spec) 19.3 % 19-41 [facility] BUN/creatinine ratioOrdered By: Guevara Trevino on 08-13-2024 Urea nitrogen/Creatinine [Mass ratio] 14.6 mg/mg 10-20 [facility] Basophil percentageOrdered B y: Guevara Alcazarcandi on 08-13-2024 Basophils/100 WBC (Bld) 0.4 % 0-1 [facility] Beta HCG ( test) Ql Ordered By: Guevara Trevino on 08-13-2024 Serum Test, Qualitative Negative [facility] Bilirubin, totalOrdered By: Guevara Trevino on 08-13-2024 Bilirubin [Mass/Vol] 0.19 mg/dL 0.00-1.30 [facility] CBC W/Diff, Automatedon 07-16 Absolute Lymph 2.75 X10 3/uL Normal 0.83-4.51 [facility] Comment on above: Performed By: #### L 700.6800, L100.0100, L503.6005, L500.4050, L501.2450 ####[facility] [address] [place], [address] Absolute Neut 9.8 X10 3/uL High 2.0-7.7 [facility] Comment on above: Performed By: #### L 700.6800, L100.0100, L503.6005, L500.4050, L501.2450 ####[facility] [address] [place], [address] Basophils/100 WBC (Bld) 0.4 % Normal 0-1 [facility] Comment on above: Performed By: #### L 700.6800, L100.0100, L503.6005, L500.4050, L501.2450 ####[facility] [address] [place], [address] Eosinophils/100 WBC (Bld) 6.5 % High 0-5 [facility] Comment on above: Performed By: #### L 700.6800, L100.0100, L503.6005, L500.4050, L501.2450 ####[facility] [address] [place], [address] Erythrocyte distribution width (RBC) [Ratio] 13.5 % Normal 11.6-14.6 [facility] Comment on above: Performed By: #### L 700.6800, L100.0100, L503.6005, L500.4050, L501.2450 ####[facility] [address] [place], [address] Hematocrit (Bld) [Volume fraction] 40.1 % Normal 37-47 [facility] Comment on above: Performed By: #### L 700.6800, L100.0100, L503.6005, L500.4050, L501.2450 ####[facility] [address] [place], [address] Hemoglobin (Bld) [Mass/Vol] 13.1 g/dL Normal 12.0-15.0 [facility] Comment on above: Performed By: #### L 700.6800, L100.0100, L503.6005, L500.4050, L501.2450 ####[facility] [address] [place], [address] IG% 0.600 Normal 0.0-0.9 [facility] Comment on above: Result Comment: IG% - Immature Granulocytes (promyelocytes, myelocytes and metamyelocytes) > 1% indicates that a LEFT SHIFT is Present. Performed By: #### L 700.6800, L100.0100, L503.6005, L500.4050, L501.2450 ####[facility] [address] [place], [address] Lymphocytes/100 WBC (Bld) 19.3 % Normal 19-41 [facility] Comment on above: Performed By: #### L 700.6800, L100.0100, L503.6005, L500.4050, L501.2450 ####[facility] [address] [place], [address] MCH (RBC) [Entitic mass] 27.0 pg Normal 27.0-32.0 [facility] Comment on above: Performed By: #### L 700.6800, L100.0100, L503.6005, L500.4050, L501.2450 ####[facility] [address] [place], [address] MCHC (RBC) [Mass/Vol] 32.7 g/dL Normal 32-36 [facility] Comment on above: Performed By: #### L 700.6800, L100.0100, L503.6005, L500.4050, L501.2450 ####[facility] [address] [place], [address] MCV (RBC) [Entitic vol] 82.5 fL Normal 81-99 [facility] Comment on above: Performed By: #### L 700.6800, L100.0100, L503.6005, L500.4050, L501.2450 ####[facility] [address] [place], [address] Monocytes/100 WBC (Bld) 4.7 % Normal 0-10 [facility] Comment on above: Performed By: #### L 700.6800, L100.0100, L503.6005, L500.4050, L501.2450 ####[facility] [address] [place], [address] Neutrophils/100 WBC (Bld) 68.5 % Normal 47-70 [facility] Comment on above: Performed By: #### L 700.6800, L100.0100, L503.6005, L500.4050, L501.2450 ####[facility] [address] [place], [address] Nucleated RBC (Bld) [#/Vol] 0 10*3/uL Normal 0-5 [facility] Comment on above: Performed By: #### L 700.6800, L100.0100, L503.6005, L500.4050, L501.2450 ####[facility] [address] [place], [address] Platelet mean volume (Bld) [Entitic vol] 9.8 fL Normal 6.2-12.0 [facility] Comment on above: Performed By: #### L 700.6800, L100.0100, L503.6005, L500.4050, L501.2450 ####[facility] [address] [place], [address] Platelets (Bld) [#/Vol] 472 10*3/uL High 150-450 [facility] Comment on above: Performed By: #### L 700.6800, L100.0100, L503.6005, L500.4050, L501.2450 ####[facility] [address] [place], [address] RBC (Bld) [#/Vol] 4.86 10*6/uL Normal 4.2-5.4 [facility] Comment on above: Performed By: #### L 700.6800, L100.0100, L503.6005, L500.4050, L501.2450 ####[facility] [address] [place], [address] RDW SD 40.2 fl Normal 35.1-43.9 [facility] Comment on above: Performed By: #### L 700.6800, L100.0100, L503.6005, L500.4050, L501.2450 ####[facility] [address] [place], [address] WBC (Bld) [#/Vol] 14.2 10*3/uL High 4.4-11.0 [facility] Comment on above: Performed By: #### L 700.6800, L100.0100, L503.6005, L500.4050, L501.2450 ####[facility] [address] [place], [address] Carbon dioxide, total [Moles /volume] in Central venous bloodOrdered By: Guevara Trevino on 08-13-2024 CO2 [Moles/Vol] 17.7 mmol/L Low 21.0-32.0 [facility] Chloride assayOrdered By: Re cornelius Trevino on 08-13-2024 Chloride [Moles/Vol] 104 mmol/L 98-108 [facility] Comprehensive Metabolic Prof ilon 08-13-2024 Albumin [Mass/Vol] 4.4 g/dL Normal 3.5-5.0 [facility] Comment on above: Performed By: #### L 700.6800, L100.0100, L503.6005, L500.4050, L501.2450 ####[facility] [address] [place], [address] Albumin/Globulin [Mass ratio] 1.9 {ratio} Normal 0.9-2.4 [facility] Comment on above: Performed By: #### L 700.6800, L100.0100, L503.6005, L500.4050, L501.2450 ####[facility] [address] [place], [address] ALK PHOS 66 U/L Normal 35-104 [facility] Comment on above: Performed By: #### L 700.6800, L100.0100, L503.6005, L500.4050, L501.2450 ####[facility] [address] [place], [address] ALT [Catalytic activity/Vol] 32 U/L Normal <=34 [facility] Comment on above: Performed By: #### L 700.6800, L100.0100, L503.6005, L500.4050, L501.2450 ####[facility] [address] [place], [address] AST [Catalytic activity/Vol] 13 U/L Normal <=31 [facility] Comment on above: Performed By: #### L 700.6800, L100.0100, L503.6005, L500.4050, L501.2450 ####[facility] [address] [place], [address] Bilirubin [Mass/Vol] 0.19 mg/dL Normal 0.00-1.30 [facility] Comment on above: Performed By: #### L 700.6800, L100.0100, L503.6005, L500.4050, L501.2450 ####[facility] [address] [place], [address] BUN/CRE 14.6 RATIO Normal 10-20 [facility] Comment on above: Performed By: #### L 700.6800, L100.0100, L503.6005, L500.4050, L501.2450 ####[facility] [address] [place], [address] Calcium [Mass/Vol] 9.4 mg/dL Normal 7.6-11.0 [facility] Comment on above: Performed By: #### L 700.6800, L100.0100, L503.6005, L500.4050, L501.2450 ####[facility] [address] [place], [address] Chloride [Moles/Vol] 104 mmol/L Normal 98-108 [facility] Comment on above: Performed By: #### L 700.6800, L100.0100, L503.6005, L500.4050, L501.2450 ####[facility] [address] [place], [address] CO2 [Moles/Vol] 17.7 mmol/L Low 21.0-32.0 [facility] Comment on above: Performed By: #### L 700.6800, L100.0100, L503.6005, L500.4050, L501.2450 ####[facility] [address] [place], [address] Creatinine [Mass/Vol] 0.71 mg/dL Normal 0.70-1.20 [facility] Comment on above: Performed By: #### L 700.6800, L100.0100, L503.6005, L500.4050, L501.2450 ####[facility] [address] [place], [address] ECRCL 130.99 ml/min Normal 50-250 [facility] Comment on above: Performed By: #### L 700.6800, L100.0100, L503.6005, L500.4050, L501.2450 ####[facility] [address] [place], [address] GAP 15 Normal 5-15 [facility] Comment on above: Performed By: #### L 700.6800, L100.0100, L503.6005, L500.4050, L501.2450 ####[facility] [address] [place], [address] GFR/1.73 sq M.predicted among non-blacks MDRD (S/P/Bld) [Vol rate/Area] 116 mL/min/{1.73_m2} Normal >60 [facility] Comment on above: Result Comment: mL/m in/1.73m2 CKD-EPI Creatinine Equation (2020) Performed By: #### L 700.6800, L100.0100, L503.6005, L500.4050, L501.2450 ####[facility] [address] [place], [address] Globulin (S) [Mass/Vol] 2.3 g/dL Normal 2.2-4.2 [facility] Comment on above: Performed By: #### L 700.6800, L100.0100, L503.6005, L500.4050, L501.2450 ####[facility] [address] [place], [address] Glucose [Mass/Vol] 124 mg/dL High 70-99 [facility] Comment on above: Performed By: #### L 700.6800, L100.0100, L503.6005, L500.4050, L501.2450 ####[facility] [address] [place], [address] Potassium [Moles/Vol] 3.3 mmol/L Normal 3.3-5.1 [facility] Comment on above: Performed By: #### L 700.6800, L100.0100, L503.6005, L500.4050, L501.2450 ####[facility] [address] [place], [address] Sodium [Moles/Vol] 137 mmol/L Normal 133-145 [facility] Comment on above: Performed By: #### L 700.6800, L100.0100, L503.6005, L500.4050, L501.2450 ####[facility] [address] [place], [address] T PROT 6.7 g/dL Normal 5.9-8.4 [facility] Comment on above: Performed By: #### L 700.6800, L100.0100, L503.6005, L500.4050, L501.2450 ####[facility] [address] [place], [address] Urea nitrogen [Mass/Vol] 10 mg/dL Normal 4-19 [facility] Comment on above: Performed By: #### L 700.6800, L100.0100, L503.6005, L500.4050, L501.2450 ####[facility] [address] [place], [address] Emergency Department Summary on 08-13-2024 Emergency Department Summary [facility] Medical Records Department [address] [place] [address] Emergency Department Summary 08/13/24 MR#: [id number] Acct: [id number] Name: MARIA ELENA GARAY Rep #: [id number] : 1990 33 From: Guevara Trevino DO PCP: Dr. Jes Fuentes MD Status:DEP ER Location: ED HPI HPI - GI History of Present Illness Chief Complaint: GI Bleed Detail of Chief Complaint: Abdominal pain and rectal bleeding Informant: patient Narrative Narrative: Patient presents to the emergency department complaint of rectal bleeding and abdominal pain. Patient states that she had a colonoscopy [address] Fofana. Reason for colonoscopy was chronic diarrhea for 6 months. Patient states they found a lot of inflammation in her colon and she had multiple biopsies done. 4 days ago she started having bright red blood per rectum. That has since resolved within the last 36 hours. She is complaining of upper abdomen pain. She rates her pain an 8 out of 10. She denies vomiting. She denies hematemesis. She denies fever. Patient has had prior cholecystectomy and prior appendectomy. [facility] Medical History Wears glasses Anemia Back pain Injury of head and neck Difficulty swallowing Gastric reflux Non-smoker Sleep apnea History of echocardiogram History of stress test Hypertension Cardiology follow-up encounter History of irregular heartbeat Anxiety Arthritis Asthma Tonsillectomy planned Migraines Home Medications ???Medication ???Instructions ???Recorded ???Last Taken ???Type gabapentin 100 mg capsule 400 mg PO TID MIGRAINS 10/04/16 History albuterol sulfate 90 mcg/actuation 1 - 2 puff inhalation Q6H PRN ND N 03/22/18 07/20/21 History aerosol inhaler (ProAir HFA) Asthma venlafaxine 75 mg tablet 150 mg PO DAILY 04/30/19 07/20/21 History cholecalciferol (vitamin D3) 125 125 mcg PO DAILY 03/31/21 07/20/21 History mcg (5,000 unit) tablet melatonin 10 mg tablet 10 mg PO QHS PRN sleep 03/31/21 History ubrogepant 50 mg tablet (Ubrelvy) 50 mg PO BID PRN migraine headach e 07/20/21 Unknown History atogepant 60 mg tablet 60 mg PO DAILY 12/14/23 Unknown Hi story chlorzoxazone 500 mg tablet 500 mg PO TID 12/14/23 Unknown His tory pantoprazole 40 mg tablet,delayed 40 mg PO BID 12/14/23 Unknown His tory release propranolol 80 mg capsule,24 80 mg PO DAILY 12/14/23 08/04/24 H istory hr,extended release rimegepant 75 mg disintegrating 75 mg PO ONCE PRN migraine headach e 12/14/23 Unknown History tablet (Nurtec ODT) tramadol 50 mg tablet 50 mg PO TID PRN pain 12/14/23 Unk nown History diphenhydramine HCl 25 mg capsule 25 mg PO QHS 08/02/24 Unknown His tory (Aler-Cap) ergocalciferol (vitamin D2) 1,250 1,250 mcg PO QWEEK 08/02/24 Unkno wn History mcg (50,000 unit) capsule metformin 500 mg tablet,extended 1,000 mg PO BID 08/02/24 08/04/24 History release 24 hr ondansetron 4 mg disintegrating 8 mg PO Q8H PRN PRN Nausea 5 Unknown History tablet topiramate 25 mg tablet 25 mg PO QHS 08/02/24 Unknown Hist ory hydrocodone-acetaminophe n 5-325mg 1 tab PO Q4H PRN PRN Pain 2 days 08/13/24 Unknown Rx 5mg-325mg #10 TABLETS Allergy/AdvReac Type Severity Reaction Status Date / Time metoclopramide (From Reglan) AdvReac severe Verified 08/06/24 08:10 anxious prochlorperazine (From AdvReac severe Verified 08/06/24 08:10 Compazine) anxious Family History Mother Thyroid cancer Skin cancer Hypertension Surgical History History of esophagogastroduodenosco py (EGD) Hx of tubal ligation Hx of tonsillectomy History of appendectomy S/P cholecystectomy S/P left knee arthroscopy tubes clamped Social History household members: spouse Smoking Status: Never smoker alcohol intake: never substance use type: does not use ROS ROS ED Review of Systems ROS Unobtainable: other Constitutional Constitutional ED: Reports lethargy; Denies chills, fever(s), sweats or weight loss Eyes Eyes: Denies blurry vision, change in vision or diplopia ENT ENT ED: Denies rhinorrhea or sore throat Cardiovascular Cardiovascular: Denies chest pain, orthopnea or racing heartbeat Respiratory/Chest Respiratory/Chest: Denies cough, dyspnea, dyspnea on exertion, orthopnea or sputum Gastrointestinal Gastrointestinal: Reports abdominal pain and other Details: Bright red blood per rectum ; Denies diarrhea, nausea or vomiting Genitourinary Genitourinary ED: Denies dysuria, hematuria or urinary frequency Musculoskeletal Musculoskeletal: Denies arthralgias, back pain, katherine (more content not included)... Normal [facility] Eosinophil percentageOrdered By: Guevara Trevino on 08-13-2024 Eosinophils/100 WBC (Bld) 6.5 % High 0-5 [facility] Erythrocyte distribution wid th ratioOrdered By: Guevara Trevino on 08-13-2024 Erythrocyte distribution width (RBC) [Ratio] 13.5 % 11.6-14.6 [facility] Erythrocyte distribution wid th standard deviationOrdered By: Guevara Trevino on 08-13-2024 Erythrocyte distribution width (RBC) [Entitic vol] 40.2 fL 35.1-43.9 [facility] Erythrocyte distribution width (RBC) [Ratio] 40.2 fl 35.1-43.9 [facility] Estimation of creatinine maxwell aranceOrdered By: Guevara Trevino on 08-13-2024 Estimated Creatinine Clearance Calc 130.99 ml/min 50-250 [facility] GFR/1.73 sq M.predicted zaheer g non-blacks MDRD (S/P/Bld) [Vol rate/Area]Ordered By: Guevara Trevino on 08-13-2024 Estimated GFR (MDRD) Non-Af Amer 116 >60 [facility] Comment on above: mL/min/1.73m2 CKD-EP I Creatinine Equation (2020) Glomerular filtration rate ( GFR) estimation/1.73 sq m using serum, plasma, or whole bOrdered By: Guevara Trevino on 08-13-2024 GFR/1.73 sq M.predicted among non-blacks MDRD (S/P/Bld) [Vol rate/Area] 116 mL/min/{1.73_m2} >60 [facility] Comment on above: mL/min/1.73m2 CKD-EP I Creatinine Equation (2020) Hematocrit Auto (Bld) [Volum e fraction]Ordered By: Guevara Trevino on 08-13-2024 Hematocrit (Bld) [Volume fraction] 40.1 % 37-47 [facility] Hemoglobin measurementOrdere d By: Guevara Trevino on 08-13-2024 Hemoglobin (Bld) [Mass/Vol] 13.1 g/dL 12.0-15.0 [facility] Immature granulocytes/100 WB C Auto (Bld)Ordered By: Guevara Trevino on 08-13-2024 Immature granulocytes/100 WBC (Bld) 0.600 % 0.0-0.9 [facility] Comment on above: IG% - Immature Granu locytes (promyelocytes, myelocytes and metamyelocytes) > 1% indicates that a LEFT SHIFT is Present. Laboratory - Chemistry and C hemistry - challengeOrdered By: Guevara Trevino on 08-13-2024 AST [Catalytic activity/Vol] 13 U/L <32 [facility] Lactic Acidon 08-13-2024 Lactate [Moles/Vol] 1.6 mmol/L Normal 0.0-2.0 [facility] Comment on above: Order Comment: Y Performed By: #### L 700.6800, L100.0100, L503.6005, L500.4050, L501.2450 ####[facility] [id number] [place], [address] Lactic acid measurementOrder ed By: Guevara Trevino on 08-13-2024 Lactate [Moles/Vol] 1.6 mmol/L 0.0-2.0 [facility] Lipaseon 08-13-2024 Lipase [Catalytic activity/Vol] 18 U/L Normal 13-75 [facility] Comment on above: Result Comment: Kevin lehman note: LIPASE revised reference range effective 22. New Lipase methodology. Expected to produce lower values than the previous assay method. NEW Reference Range: 13 - 75 U/L Performed By: #### L 700.6800, L100.0100, L503.6005, L500.4050, L501.2450 ####[facility] [id number] [place], [place], [address] Lipase measurementOrdered By : Guevara Trevino on 08-13-2024 Lipase [Catalytic activity/Vol] 18 U/L 13-75 [facility] Comment on above: Please note:LIPASE r evised reference range effective 22. New Lipase methodology. Expected to produce lower values than the previous assay method. NEW Reference Range: 13 - 75 U/L Lymphocytes Auto (Unsp spec) [#/Vol]Ordered By: Guevara Trevino on 08-13-2024 Lymphocytes (Bld) [#/Vol] 2.75 10*3/uL 0.83-4.51 [facility] Lymphocytes/100 WBC Auto (Un sp spec)Ordered By: Guevara Trevino on 08-13-2024 Lymphocytes/100 WBC (Bld) 19.3 % 19-41 [facility] MCV (mean corpuscular volume ) determinationOrdered By: Guevara Trevino on 08-13-2024 MCV (RBC) [Entitic vol] 82.5 fL 81-99 [facility] Mean corpuscular hemoglobin (MCH) determinationOrdered By: Guevara Trevino on 08-13-2024 MCH (RBC) [Entitic mass] 27.0 pg 27.0-32.0 [facility] Mean corpuscular hemoglobin concentration (MCHC) determinationOrdered By: Guevara Trevino on 08-13-2024 MCHC (RBC) [Mass/Vol] 32.7 g/dL 32-36 [facility] Mean platelet volume determi nationOrdered By: Guevara Trevino on 08-13-2024 Platelet mean volume (Bld) [Entitic vol] 9.8 fL 6.2-12.0 [facility] Monocyte percentageOrdered B y: Guevara Trevino on 08-13-2024 Monocytes/100 WBC (Bld) 4.7 % 0-10 [facility] Neutrophil percentageOrdered By: Guevara Trevino on 08-13-2024 Neutrophils/100 WBC (Bld) 68.5 % 47-70 [facility] Nucleated red blood cell per centageOrdered By: Guevara Trevino on 08-13-2024 Nucleated RBC/100 WBC (Bld) [Ratio] 0 % 0-5 [facility] Platelet countOrdered By: Nohemi Trevino on 08-13-2024 Platelets (Bld) [#/Vol] 472 10*3/uL High 150-450 [facility] Potassium (Unsp spec) [Mass/ Vol]Ordered By: Guevara Trevino on 08-13-2024 Potassium [Moles/Vol] 3.3 mmol/L 3.3-5.1 [facility] Potassium measurement (mass/ volume)Ordered By: Guevara Trevino on 08-13-2024 Potassium (Unsp spec) [Mass/Vol] 3.3 mmol/L 3.3-5.1 [facility] ,Serum,hCG Quali.on 08-13-2024 HCG, SERUM QUAL Negative Normal [facility] Comment on above: Performed By: #### L 700.6800, L100.0100, L503.6005, L500.4050, L501.2450 ####[facility] [id number] [place], [address] RBC Auto (Bld) [#/Vol]Ordere d By: Guevara Trevino on 08-13-2024 RBC (Bld) [#/Vol] 4.86 10*6/uL 4.2-5.4 [facility] Serum beta-hCG test, qualita tiveOrdered By: Guevara Trevino on 08-13-2024 Beta HCG ( test) Ql Negative [facility] Serum creatinine measurement (mass/volume)Ordered By: Guevara Trevino on 08-13-2024 Creatinine [Mass/Vol] 0.71 mg/dL 0.70-1.20 [facility] Serum globulin measurementOr dered By: Guevara Trevino on 08-13-2024 Globulin (S) [Mass/Vol] 2.3 g/dL 2.2-4.2 [facility] Serum glucose measurement (m ass/volume)Ordered By: Guevara Trevino on 08-13-2024 Glucose [Mass/Vol] 124 mg/dL High 70-99 [facility] Serum or plasma alanine giordano otransferase (ALT) measurementOrdered By: Guevara Trevino on 08-13-2024 ALT [Catalytic activity/Vol] 32 U/L <35 [facility] Serum or plasma albumin sravanthi urement (mass/volume)Ordered By: Guevara Trevino on 08-13-2024 Albumin [Mass/Vol] 4.4 g/dL 3.5-5.0 [facility] Serum or plasma albumin/glob ulin mass ratioOrdered By: Guevara Trevino on 08-13-2024 Albumin/Globulin [Mass ratio] 1.9 {ratio} 0.9-2.4 [facility] Serum or plasma alkaline micheal sphatase measurementOrdered By: Guevara Trevino on 08-13-2024 ALP [Catalytic activity/Vol] 66 U/L 35-104 [facility] Serum or plasma calcium sravanthi urement (mass/volume)Ordered By: Guevara Trevino on 08-13-2024 Calcium [Mass/Vol] 9.4 mg/dL 7.6-11.0 [facility] Serum or plasma urea nitroge n measurement (mass/volume)Ordered By: Guevara Trevino on 08-13-2024 Urea nitrogen [Mass/Vol] 10 mg/dL 4-19 [facility] Sodium levelOrdered By: Sang Trevino on 08-13-2024 Sodium [Moles/Vol] 137 mmol/L 133-145 [facility] Total proteinOrdered By: Shazia Trevino on 08-13-2024 Protein [Mass/Vol] 6.7 g/dL 5.9-8.4 [facility] White blood cell (WBC) count Ordered By: Guevara Trevino on 08-13-2024 WBC (Bld) [#/Vol] 14.2 10*3/uL High 4.4-11.0 [facility] Colonoscopy Reporton 025 Colonoscopy Report [facility] Medical Records Department [address] [place] [address] Colonoscopy Report MR#: [id number] Acct: [id number] Name: MARIA ELENA GARAY Rep #: [id number] : 1990 33 From: Salbador Fofana DO PCP: Dr. Jes Fuentes MD Status:REG [facility] Patient Name: Maria Elena Garay Procedure Date: 08/06/2024 9:08 AM Date of : 1990 Age: 33 Procedure: Colonoscopy Indications: Chronic diarrhea Providers: Salbador Fofana DO Medicines: Monitored Anesthesia Care Patient Profile: This is a 33 year old female. Refer to note in patient chart for documentation of history and physical. Last Colonoscopy: none. The patient's first colonoscopy is today. Complications: No immediate complications. Procedure: Pre-Anesthesia Assessment: - Prior to the procedure, a History and Physical was performed, and patient medications and allergies were reviewed. The patient is competent. The risks and benefits of the procedure and the sedation options and risks were discussed with the patient. All questions were answered and informed consent was obtained. Patient identification and proposed procedure were verified by the physician in the pre-procedure area. Mental Status Examination: alert and oriented. Airway Examination: normal oropharyngeal airway and neck mobility. Respiratory Examination: clear to auscultation. CV Examination: normal. Prophylactic Antibiotics: The patient does not require prophylactic antibiotics. Prior Anticoagulants: The patient has taken no anticoagulant or antiplatelet agents except for NSAID medication. ASA Grade Assessment: II - A patient with mild systemic disease. After reviewing the risks and benefits, the patient was deemed in satisfactory condition to undergo the procedure. The anesthesia plan was to use monitored anesthesia care (MAC). Immediately prior to administration of medications, the patient was re-assessed for adequacy to receive sedatives. The heart rate, respiratory rate, oxygen saturations, blood pressure, adequacy of pulmonary ventilation, and response to care were monitored throughout the procedure. The physical status of the patient was re-assessed after the procedure. After I obtained informed consent, the scope was passed under direct vision. Throughout the procedure, the patient's blood pressure, pulse, and oxygen saturations were monitored continuously. The Colonoscope was introduced through the anus and advanced to the terminal ileum. The colonoscopy was performed without difficulty. The patient tolerated the procedure well. The quality of the bowel preparation was adequate. The terminal ileum, ileocecal valve, appendiceal orifice, and rectum were photographed. Scope In: 9:25:56 AM Scope Withdrawal Time 0 hours 7 minutes 57 seconds Scope Out: 9:36:51 AM Total Procedure Duration Time 0 hours 10 minutes 55 seconds Findings: The perianal and digital rectal examinations were normal. An area of mildly congested mucosa was found in the entire colon. Biopsies were taken with a cold forceps for histology. Verification of patient identification for the specimen was done. Estimated blood loss was minimal. A few small-mouthed diverticula were found in the recto-sigmoid colon and sigmoid colon. A patchy area of the terminal ileum was congested. Biopsies were taken with a cold forceps for histology. Verification of patient identification for the specimen was done. Estimated blood loss was minimal. Impression: - Congested mucosa in the entire examined colon. Biopsied. - Diverticulosis in the recto-sigmoid colon and in the sigmoid colon. - Congested mucosa in the terminal ileum. Biopsied. Recommendation: - Discharge patient to home. - Resume previous diet. - Continue present medications. - Await pathology results. - Repeat colonoscopy in 5 years for surveillance. Procedure Code(s): --- Professional --- 96733, Colonoscopy, flexible; with biopsy, single or multiple CPT copyright 2021 [employer]. All rights reserved. The codes documented in this report are preliminary and upon library information technician review may be revised to meet current compliance requirements. Salbador Fofana DO 08/06/2024 9:40:14 AM This report has been signed electronically. Number of Addenda: 0 Note Initiated On: 08/06/2024 9:08 AM 08/06/24 0940 Date Salbador Hylton Signature: Date (if indicated) CC: Dr. Jes Fuentes MD; Salbador Fofana DO Date Dictated: 08/06/24907 Date Transcribed: Drying Tumbler Operator: RF Signed [facility] MR/POSTOP.ANEon 08-06-2024 MR/POSTOP.[facility] Medical Records Department [address] [place] [address] Anesthesia Postop Eval I 08/06/2445 MR#: [id number] Acct: [id number] Name: MARIA ELENA GARAY Rep #: [id number] : 1990 33 From: Deonte Louis PCP: Dr. Jes Fuentes MD Status:REG [facility] Y Race: C Location: [place] [address] Anesthesia: Postop Eval I Current Vital Signs Temperature: 97.9 F Pulse Rate: 71 Blood Pressure: 114/85 Respiratory Rate: 16 Pulse Ox: 97 Oxygen Delivery Method: Room Air Assessment Airway patent: Yes Spontaneous unlabored respirations: Yes Mental status: Asleep nausea: No Vomiting: No Anesthesia Complication: No Fluid Hydration Crystalloid volume administer (ml): 40 Total IV fluid infused: 40 Progress Note Anesthesia document: Postop Eval 1 completed: Yes 08/06/24944 Date Deonte Whalen Signature: Date CC: Signed [facility] MR/[id number] 08-06-2024 MR/POSTOPAN2 [facility] Medical Records Department [address] [place] [address] Anesthesia Postop Eval II 08/06/24 1016 MR#: [id number] Acct: [id number] Name: MARIA ELENA GARAY Rep #: [id number] : 1990 33 From: Mary Ann Rehman PCP: Dr. Jes Fuentes MD Status:REG [facility] Y Race: C Location: [place] [address] Anesthesia Postop Eval I Sum Postop Eval Completion status Anesthesia document: Postop Eval 1 completed: Yes Anesthesia Postop Eval I Summary Anesthesia Postop Eval I Summary: Anesthesia Postop Eval I: Assessment Summary Airway patent Yes 08/06/24 09:45 [email or web address] Spontaneous unlabored Yes 08/06/24 09:45 [email or web address] respirations Mental status Asleep 08/06/24 09:45 [email or web address] nausea No 08/06/24 09:45 [email or web address] Vomiting No 08/06/24 09:45 [email or web address] Anesthesia Postop Eval I: Fluid Summary Crystalloid volume administer 40 08/06/24 09:45 [email or web address] (ml) Colloids volume administered ( ml) Blood Product volume administered (ml) Total IV fluid infused 40 08/06/24 09:45 [email or web address] Anesthesia Postop Eval I: Summary Notes Anesthesia Complication No 08/06/24 09:45 [email or web address] Anesthesia Complication Comment: Post-operative progress note Anesthesia: Postop Eval II Evaluation Mental status: Awake Pain Level: 0 nausea: No Vomiting: No 08/06/24 1016 Date Mary Ann Whalen Signature: Date CC: Signed Normal [facility] Surgery Specimen Level Jason 08-06-2024 Surgery Specimen Level IV Patient Age/Sex Location Account Attending Physician MARIA ELENA GARAY 33/ EN [id number] Salbador Fofana DO Specimen: [id number] Received: 08/06/24-1315 Status: REGINAPiper Jarrod Num: [id number] Spec Type: COLON BX Subm Dr: Salbador Fofana DO HEADER OPERATION: Colonoscopy with biopsies PRE-OP DIAGNOSIS: Diarrhea TISSUE SUBMITTED: A- Terminal ileum biopsy, B- Random colon biopsy MICROSCOPIC DIAGNOSIS A. TERMINAL ILEUM, TERMINAL ILEUM BIOPSY: -Negative for dysplasia -Small intestinal biopsy with prominent reactive lymphoid follicles B. RANDOM COLON, RANDOM COLON BIOPSY: -Colonic mucosa with reactive lymphoid follicles -No cryptitis, crypt abscesses, or dysplasiaNilton Nath MD, 08/12/24 MICROSCOPIC DESCRIPTION Slides are reviewed. GROSS DESCRIPTION Specimen A. Received in formalin labeled Maria Elena Garay and designated biopsy terminal ileum, are four cisse tissue fragments aggregating to 0.7 x 0.6 x 0.2 cm. Totally submitted in one cassette.Specimen B. Received in formalin labeled Maria Elena Garay, and designated biopsy random colon, are multiple cisse tissue fragments aggregating to 1.1 x 0.9 x 0.2 cm. Totally submitted in one cassette. 08/06/2024 CPT:53945u0, TC:4 Patient Age/Sex Location Account Attending Physician MARIA ELENA GARAY 33/F EN [id number] Salbador Fofana DO Signed (signature on file) Dr. Ricky Nath MD 08/12/24 1456 Normal [facility] Comment on above: Performed By: #### P SUIV #### [facility] Laboratory [address] [place], [address] CNOVSPon 08-03-2024 CNOVSP Normal [facility] CNPNon 08-03-2024 CNPN Normal [facility] MR/PAT.ANEon 08-02-2024 MR/PAT.TIFFANY [facility] Medical Records Department [address] [place] [address] PAT - Anesthesia 08/02/24 1612 MR#: [id number] Acct: [id number] Name: MARIA ELENA GARAY Rep #: [id number] : 1990 33 From: Jacques Mendez MD PCP: Dr. Jes Fuentes MD Status:PRE [facility] Y Race: C Location: EN Pre-Assessment Diagnosis/Proposed Procedure Planned Operative Procedure(s): COLONOSCOPY Anesthesia History Anesthesia History - manager training and development: Anesthesia History - manager training and development Hx Hospitalization No 08/02/24 09:48 Any Problems With Anesthesia No 08/02/24 09:48 Cholinesterase deficiency No 08/02/24 09:48 You/Your Family Experience No 08/02/24 09:48 fever (hyperthermia) with Relationship Recent Exposure to Contagious No 05/31/19 08:48 Disease Does patient have nerve No 08/02/24 09:48 stimulator Patient instructed to have device shut off --Does patient have Pacemaker or ICD? When Was Last Pacemaker Check QUESTION #4 FULL TEXT: You/Your Family Experience fever (hyperthermia) with Anesthesia Last Oral Intake Last Oral intake: Last Oral Intake NPO since Meds taken in AM with sips of water? Meds patient instructed to take am of surgery PONV PONV - manager training and development: PONV - manager training and development Female Yes 08/02/24 09:48 HX of Motion Sickness Yes 08/02/24 09:48 HX of N/V After Surgery No 08/02/24 09:48 Non-Smoker Yes 08/02/24 09:48 Duration of Surgery greater No 08/02/24 09:48 than 60 minutes Number of Risk Factors 3 08/02/24 09:48 PONV Score Moderate Risk 08/02/24 09:48 Height Weight Height Weight: Anesthesia: Height Weight Height 5 ft 4 in 03/20/24 12:44 Respiratory Assessment Respiratory Assessment - manager training and development: Respiratory Tract Infection Hx - manager training and development Hx Respiratory Tract Infection No 08/02/24 09:48 STOP Sleep Apnea STOP Sleep Apnea - manager training and development: STOP Sleep Apnea - manager training and development Hx Hypertension Yes: NO MEDS PCP D/C'D 08/02/24 09:48 Hx Sleep Apnea No 08/02/24 09:48 CPAP BIPAP Do you snore loudly (louder No 08/02/24 09:48 than talking or can be heard Do you often feel tired/ No 08/02/24 09:48 fatigued/ sleepy during daytime? Has anyone observed you stop No 08/02/24 09:48 breathing during sleep? STOP Results Negative 08/02/24 09:48 QUESTION #5 FULL TEXT : Do you snore loudly (louder than talking or can be heard through closed doors)? 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 Specify any problems Hx of Preganancy in last 3 No 08/02/24 09:48 Months Nurse Filling Out Transfusion VCHRISTIN 08/02/24 09:48 Questions: Date: 08/02/24 08/02/24 09:48 Time: 09:50 08/02/24 09:48 Patient unable to answer at this time (ie. 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: /Reproductive Hx- manager training and development Hx Now No 08/02/24 09:48 Gestational Age (in weeks): EDC: Hx Hx Para Hx Section SAB No 08/02/24 09:48 PFSH Medical History (Updated 08/02/24 @ 09:48 by Dora Stahl) Wears glasses Anemia Back pain Injury of head and neck Difficulty swallowing Gastric reflux Non-smoker Sleep apnea History of echocardiogram History of stress test Hypertension Cardiology follow-up encounter History of irregular heartbeat Anxiety Arthritis Asthma Tonsillectomy planned Migraines Home Medications ???Medication ???Instructions ???Recorded ???Last Taken ???Type gabapentin 100 mg capsule 400 mg PO TID MIGRAINS 10/04/16 History albuterol sulfate 90 mcg/actuation 1 - 2 puff inhalation Q6H PRN ND N 03/22/18 07/20/21 History aerosol inhaler (ProAir HFA) Asthma venlafaxine 75 mg tablet 150 mg PO DAILY 04/30/19 07/20/21 History cholecalciferol (vitamin D3) 125 125 mcg PO DAILY 03/31/21 07/20/21 History mcg (5,000 unit) tablet melatonin 10 mg tablet 10 mg PO QHS PRN sleep 03/31/21 History ubrogepa (more content not included)... Normal [facility] CBC W Auto Differential pane l (Bld)on 07-31-2024 Basophils (Bld) [#/Vol] 0.11 10*3/uL High <0.11 [facility] Comment on above: Order Comment: Speci men Type: BLOOD SPECIMENOrdering Facility: [facility] Address: [address] [place] [address] Performed By: #### 5 7021-8 ####[facility] [id number] [place] [address] [place] Basophils/100 WBC (Bld) 0.8 % Normal [facility] Comment on above: Order Comment: Speci men Type: BLOOD SPECIMENOrdering Facility: [facility] Address: [address] [place] [address] Performed By: #### 5 7021-8 ####[facility] [id number] [place] [address] [place] Differential cell count method Nom (Bld) Auto Normal [facility] Comment on above: Order Comment: Speci men Type: BLOOD SPECIMENOrdering Facility: [facility] Address: [address] [place] [address] Performed By: #### 5 7021-8 ####[facility] [id number] [place] [address] [place] Eosinophils (Bld) [#/Vol] 1.08 10*3/uL High <0.46 [facility] Comment on above: Order Comment: Speci men Type: BLOOD SPECIMENOrdering Facility: [facility] Address: [address] [place] [address] Performed By: #### 5 7021-8 ####[facility] [id number] [place] [address] [place] Eosinophils/100 WBC (Bld) 7.8 % Normal [facility] Comment on above: Order Comment: Speci men Type: BLOOD SPECIMENOrdering Facility: [facility] Address: [address] [place] [address] Performed By: #### 5 7021-8 ####[facility] [id number] [place] [address] [place] Erythrocyte distribution width (RBC) [Ratio] 13.2 % Normal 11.5-15.0 [facility] Comment on above: Order Comment: Speci men Type: BLOOD SPECIMENOrdering Facility: [facility] Address: [address] [place] [address] Performed By: #### 5 7021-8 ####[facility] [id number] [place] [address] [place] Hematocrit (Bld) [Volume fraction] 40.0 % Normal 36.0-46.0 [facility] Comment on above: Order Comment: Speci men Type: BLOOD SPECIMENOrdering Facility: [facility] Address: [address] [place], [place] [address] Performed By: #### 5 7021-8 ####[facility] MILLWNCLIA [id number] [place] [address] [place] Hemoglobin (Bld) [Mass/Vol] 12.9 g/dL Normal 11.5-15.5 [facility] Comment on above: Order Comment: Speci men Type: BLOOD SPECIMENOrdering Facility: [facility] Address: [address] [place] [address] Performed By: #### 5 7021-8 ####[facility]ITALNCLIA [id number] [place] [address] [place] Immature granulocytes (Bld) [#/Vol] 0.08 10*3/uL Normal <0.10 [facility] Comment on above: Order Comment: Speci men Type: BLOOD SPECIMENOrdering Facility: [facility] Address: [address] [place] [address] Performed By: #### 5 7021-8 ####[facility]ITALNCLIA [id number] [place] [address] [place] Immature granulocytes/100 WBC (Bld) 0.6 % Normal [facility] Comment on above: Order Comment: Speci men Type: BLOOD SPECIMENOrdering Facility: [facility] Address: [address] [place] [address] Performed By: #### 5 7021-8 ####[facility]ITALNCLIA [id number] [place] [address] [place] Lymphocytes (Bld) [#/Vol] 3.38 10*3/uL Normal 1.00-4.00 [facility] Comment on above: Order Comment: Speci men Type: BLOOD SPECIMENOrdering Facility: [facility] Address: [address] [place] [address] Performed By: #### 5 7021-8 ####[facility] HOSPITALLIA [id number] [place] [address] [place] Lymphocytes/100 WBC (Bld) 24.4 % Normal [facility] Comment on above: Order Comment: Speci men Type: BLOOD SPECIMENOrdering Facility: [facility] Address: [address] [place] [address] Performed By: #### 5 7021-8 ####[facility]ITALERICKMOUNTAIN [facility] [id number] [place] [address] [place] MCH (RBC) [Entitic mass] 26.8 pg Normal 26.0-34.0 [facility] Comment on above: Order Comment: Speci men Type: BLOOD SPECIMENOrdering Facility: [facility] Address: [address] [place] [address] Performed By: #### 5 7021-8 ####[facility] HOSPITALNCZamzam [id number] [place] [address] [place] MCHC (RBC) [Mass/Vol] 32.3 g/dL Normal 30.5-36.0 [facility] Comment on above: Order Comment: Speci men Type: BLOOD SPECIMENOrdering Facility: [facility] Address: [address] [place] [address] Performed By: #### 5 7021-8 ####[facility] CENTERZamzam [id number] [place] [address] [place] MCV (RBC) [Entitic vol] 83.2 fL Normal 80.0-100.0 [facility] Comment on above: Order Comment: Speci men Type: BLOOD SPECIMENOrdering Facility: [facility] Address: [address] [place] [address] Performed By: #### 5 7021-8 ####[facility] HOSPITALNCLI [id number] [place] [address] [place] Monocytes (Bld) [#/Vol] 0.61 10*3/uL Normal <0.87 [facility] Comment on above: Order Comment: Speci men Type: BLOOD SPECIMENOrdering Facility: [facility] Address: [address] [place] [address] Performed By: #### 5 7021-8 ####[facility] [id number] [place] [address] [place] Monocytes/100 WBC (Bld) 4.4 % Normal [facility] Comment on above: Order Comment: Speci men Type: BLOOD SPECIMENOrdering Facility: [facility] Address: [address] [place] [address] Performed By: #### 5 7021-8 ####[facility] [id number] [place] [address] [place] Neutrophils (Bld) [#/Vol] 8.58 10*3/uL High 1.45-7.50 [facility] Comment on above: Order Comment: Speci men Type: BLOOD SPECIMENOrdering Facility: [facility] Address: [address] [place] [address] Performed By: #### 5 7021-8 ####[facility] CENTERA [id number] [place] [address] [place] Neutrophils/100 WBC (Bld) 62.0 % Normal [facility] Comment on above: Order Comment: Speci men Type: BLOOD SPECIMENOrdering Facility: [facility] Address: [address] [place] [address] Performed By: #### 5 7021-8 ####[facility] CENTERA [id number] [place] [address] [place] Nucleated RBC (Bld) [#/Vol] 10*3/uL Normal <0.01 [facility] Comment on above: Order Comment: Speci men Type: BLOOD SPECIMENOrdering Facility: [facility] Address: [address] [place] [address] Performed By: #### 5 7021-8 ####[facility] LIBRADOWNCLIA [id number] [place] [address] [place] Nucleated RBC/100 WBC (Bld) [Ratio] 0.0 /100 WBC Normal [facility] Comment on above: Order Comment: Speci men Type: BLOOD SPECIMENOrdering Facility: [facility] Address: [address] [place] [address] Performed By: #### 5 7021-8 ####[facility]ITALNCLIA [id number] [place] [address] [place] Platelet mean volume (Bld) [Entitic vol] 9.7 fL Normal 9.0-12.7 [facility] Comment on above: Order Comment: Speci men Type: BLOOD SPECIMENOrdering Facility: [facility] Address: [address] [place] [address] Performed By: #### 5 7021-8 ####[facility]PITALNCLIA [id number] [place] [address] [place] Platelets (Bld) [#/Vol] 551 10*3/uL High 150-400 [facility] Comment on above: Order Comment: Speci men Type: BLOOD SPECIMENOrdering Facility: [facility] Address: [address] [place] [address] Performed By: #### 5 7021-8 ####[facility] ELIANEWATERVLIETERICKLIA [id number] [place] [address] [place] RBC (Bld) [#/Vol] 4.81 10*6/uL Normal 3.90-5.20 [facility] Comment on above: Order Comment: Speci men Type: BLOOD SPECIMENOrdering Facility: [facility] Address: [address] [place] [address] Performed By: #### 5 7021-8 ####[facility] HOSPITALLIA [id number] [place] [address] [place] WBC (Bld) [#/Vol] 13.84 10*3/uL High 3.70-11.00 [facility] Comment on above: Order Comment: Speci men Type: BLOOD SPECIMENOrdering Facility: [facility] Address: [address] [place] [address] Performed By: #### 5 7021-8 ####[facility] [id number] [place] [address] [place] Ferritin SerPl-mCncon 2024 Ferritin [Mass/Vol] 104.0 ng/mL Normal 14.7-205.1 [facility] Comment on above: Order Comment: Speci men Type: BLOOD SPECIMENOrdering Facility: [facility] Address: [address] [place] [address] Performed By: #### 5 0190-8, 2276-4 ####[facility] LABCLIA [id number] [place] [address] [place] HbA1c (Bld)on 07-31-2024 Average glucose Estimated from glycated hemoglobin (Bld) [Mass/Vol] 97 mg/dL Normal [facility] Comment on above: Order Comment: Speci men Type: BLOOD SPECIMENOrdering Facility: [facility] Address: [address] [place] [address] Result Comment: eAG: (Estimated average glucose) is a calculated value from HgbA1c and is energy conservation representative of the average blood glucose level in the last 2-3 month period. Performed By: #### 5 5454-3 ####[facility] LABIA [id number] [place] [address] [place] HbA1c (Bld) [Mass fraction] 5.0 % Normal 4.3-5.6 [facility] Comment on above: Order Comment: Speci men Type: BLOOD SPECIMENOrdering Facility: [facility] Address: [address] [place] [address] Result Comment: Amer [place] Diabetes Association guidelines indicate that patients with HgbA1c in the range 5.7-6.4% are at increased risk for development of diabetes, and intervention by lifestyle modification may be beneficial. HgbA1c greater or equal to 6.5% is considered diagnostic of diabetes. Performed By: #### 5 5454-3 ####[facility] LABCLIA [id number] [place] [address] [place] Iron and Iron binding capaci ty panelon 07-31-2024 Iron [Mass/Vol] 58 ug/dL Normal 41-186 [facility] Comment on above: Order Comment: Speci men Type: BLOOD SPECIMENOrdering Facility: [facility] Address: [address] [place] [address] Performed By: #### 5 0190-8, 2275- ####[facility] LABCLIA [id number] [address] STATES OF [facility] Iron binding capacity [Mass/Vol] 347 ug/dL Normal 232-386 [facility] Comment on above: Order Comment: Speci men Type: BLOOD SPECIMENOrdering Facility: [facility] Address: [address] [place] [address] Performed By: #### 5 0190-8, 2275-08 ####[facility] LABIA [id number] [address] [place] Iron/TIBC [Molar ratio] 16.7 % Normal 15.0-57.0 [facility] Comment on above: Order Comment: Speci men Type: BLOOD SPECIMENOrdering Facility: [facility] Address: [address] [place] [address] Performed By: #### 5 0190-8, 2275-08 ####[facility] LABCLIA [id number] [place] [id number] [place] CNOVon 07-20-2024 CNOV Normal [facility] CNOVon 07-19-2024 CNOV Normal [facility] CNPNon 07-18-2024 CNPN Normal [facility] CNOVon 07-11-2024 CNOV Normal [facility] CNOVon 07-06-2024 CNOV Normal [facility] CNOVon 07-03-2024 CNOV Normal [facility] Gastroenterology Visit Repor ton 06-05-2024 Gastroenterology Visit Report [facility] [address] [place] [address] OFFICE VISIT Date of Service: 06/05/24 MR#: [id number] Acct: [id number] Name: MARIA ELENA GARAY Rep #: [id number] : 1990 Provider: JAVIER Escobar Age/Sex: 33/F Location[facility] Status: Signed Intake Vital Signs 03/20/24 12:44 Height 5 ft 4 in Intake Visit Reasons: Diarrhea Chief Complaint: loose stool Allergies metoclopramide (From Reglan) Adverse Reaction (Verified 03/20/24 12:43) severe anxious prochlorperazine (From Compazine) Adverse Reaction (Verified 03/20/24 12:43) severe anxious Medications ???Medication ???Instructions ???Recorded ???Confirmed ???Type gabapentin 100 mg capsule 400 mg PO TID MIGRAINS 10/04/16 12/14/23 History albuterol sulfate 90 mcg/actuation 1 - 2 puff inhalation Q6H PRN PRN 03/22/18 09/30/21 History aerosol inhaler (ProAir HFA) Asthma eletriptan 40 mg tablet (Relpax) 40 mg PO .X1 PRN MIGRAINES 03/22/18 09/30/21 History acetaminophen 160 mg/5 mL (5 mL) 500 mg (15.625 mL) PO Q4H PRN PRN 03/24/18 09/30/21 Rx oral suspension Mild-Moderate Pain (1-5/10) venlafaxine 75 mg tablet 150 mg PO DAILY 04/30/19 09/30/21 History ondansetron 4 mg disintegrating 4 mg PO Q8H PRN PRN Nausea #10 tabs 11/07/19 12/14/23 Rx tablet cholecalciferol (vitamin D3) 125 125 mcg PO DAILY 03/31/21 12/14/23 History mcg (5,000 unit) tablet hydrochlorothiazide 12.5 mg capsule 12.5 mg PO DAILY 03/31/21 12/14/23 History melatonin 10 mg tablet 10 mg PO QHS 03/31/21 09/30/21 History meloxicam 15 mg tablet 15 mg PO DAILY 03/31/21 09/30/21 History sertraline 25 mg tablet 25 mg PO QHS 03/31/21 09/30/21 History lisinopril 10 mg tablet 10 mg PO DAILY 04/01/21 09/30/21 History ubrogepant 50 mg tablet (Ubrelvy) 50 mg PO BID 07/20/21 09/30/21 History budesonide-formoterol HFA 80 1 inh inhalation BID #10.2 grams 07/21/21 12/14/23 Rx mcg-4.5 mcg/actuation aerosol inhaler (Symbicort) atogepant 60 mg tablet 60 mg PO DAILY 12/14/23 12/14/23 History chlorzoxazone 500 mg tablet 500 mg PO TID 12/14/23 12/14/23 History cyclobenzaprine 10 mg tablet 10 mg PO TID 12/14/23 12/14/23 History pantoprazole 40 mg tablet,delayed 40 mg PO DAILY 12/14/23 12/14/23 History release propranolol 80 mg capsule,24 80 mg PO DAILY 12/14/23 12/14/23 History hr,extended release rimegepant 75 mg disintegrating 75 mg PO ONCE PRN 12/14/23 12/14/23 History tablet (Nurtec ODT) tramadol 50 mg tablet 50 mg PO TID PRN 12/14/23 12/14/23 History colestipol 1 gram tablet 1 g PO ONCE #60 tabs 06/05/24 06/05/24 Rx Patient : No Have you fallen in the past year?: No Nurse's Note: OV 06.05.24 Pt here to establish care with [facility]. Pt c/o abdominal pain, nausea, diarrhea daily for the past couple months. Pt notices when she eats pasta and greasy foods make her stomach more upset. No prior hx of a colonoscopy.Pt takes pantoprazole and zofran. [facility] Medical History Anxiety Arthritis Asthma Migraines Tonsillectomy planned Surgical History History of appendectomy S/P cholecystectomy S/P left knee arthroscopy tubes clamped Family History Mother Thyroid cancer Skin cancer Hypertension Social History household members: spouse Smoking Status: Never smoker alcohol intake: never substance use type: does not use HPI HPI Chief Complaint: loose stool Details: MARIA ELENA GARAY, is a 33 F who presents to the office today for establishment with [facility]. Pt has had diarrhea for a around 2 months now multiple times per day. Around the same time, she started metformin for pre diabetes and weight loss. She tells me at first she has diarrhea but her bowels regulated and then started back up. She does not feel it is related. Her PCP ordered stool testing which was unremarkable besides a slight elevation in the calprotectin. Anti diarrheals have been helpful but as soon as she stops them she will continue to have loose stools. Her stools are yellow and orange and she sees what she believes to be pills in it. She is s/p cholecystectomy. She has never had a colonoscopy. 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 SHe was started on pantoprazole 40 mg once a day. She denies any upper GI symptoms like n/v, heartburn or problems swallowing. ROS Const Constitutional: Positive for fatigue, headache(s) and weight change; No fever(s) ENT ENT: Positive for headache(s); No difficulty swallowing Gastro GI: Positive for abdominal pain, bloating, change in bowel habits, diarrhea, excessive flatus, Blood in stool and nausea/dyspepsia (more content not included)... Normal [facility] CNPNon 05-22-2024 CNPN Normal [facility] C diff Tox gens Stl Ql ROSELINE+p robeon 05-18-2024 C. difficile toxin genes ROSELINE+probe Ql (Stl) Negative Normal Negative for C. difficile toxin by PCR [facility] Comment on above: Order Comment: Speci men Type: STOOL SPECIMENOrdering Facility: [facility] Address: [address] [place] [address] Performed By: #### 4 8059-0, 58285-0 ####[facility] LABIA [id number] [place] [address] [place] Calprotectin (Stl) [Mass/Mas s]on 05-18-2024 CALPROTECTIN, FECAL QUANTITATIVE 78.1 ug/g High <50 [facility] Comment on above: Order Comment: Speci men Type: STOOL SPECIMENOrdering Facility: [facility] Address: [address] [place] [address] Performed By: #### 3 8445-3 ####[facility] LABIA [id number] [place] [address] [place] G lamblia+Cryptosp Ag Stl Ql IAon 05-18-2024 G. lamblia+Cryptosporidi um sp Ag IA Ql (Stl) CRYPTOSPORIDIUM ANTIGEN BY EIA: Negative for Cryptosporidium by EIA. GIARDIA ANTIGEN BY EIA: Negative for Giardia lamblia by EIA. Normal [facility] Comment on above: Performed By: #### 4 8059-0, 19879-5 ####[facility] LABIA [id number] [place] [address] [place] Gastrointestinal pathogens i dentified ROSELINE+probe Nom (Stl)on 05-18-2024 Campylobacter sp DNA ROSELINE+probe Nom (Unsp spec) Not detected Normal Not Detected [facility] Comment on above: Order Comment: Speci men Type: STOOL SPECIMENOrdering Facility: [facility] Address: [address] [place] [address] Performed By: #### 7 9390-1 ####[facility] LABIA [id number] [place] [address] [place] Salmonella sp DNA ROSELINE+probe Ql (Unsp spec) Not detected Normal Not Detected [facility] Comment on above: Order Comment: Speci men Type: STOOL SPECIMENOrdering Facility: [facility] Address: [address] [place] [address] Performed By: #### 7 9390-1 ####[facility] LABCLIA [id number] [place] [address] [place] Shiga toxin stx gene ROSELINE+probe Nom (Unsp spec) Not detected Normal Not Detected [facility] Comment on above: Order Comment: Speci men Type: STOOL SPECIMENOrdering Facility: [facility] Address: [address] [place] [address] Performed By: #### 7 9390-1 ####[facility] LABCLIA [id number] [place] [address] [place] Shigella sp DNA ROSELINE+probe Ql (Unsp spec) Not detected Normal Not Detected [facility] Comment on above: Order Comment: Speci men Type: STOOL SPECIMENOrdering Facility: [facility] Address: [address] [place] [address] Performed By: #### 7 9390-1 ####[facility] LABCLIA [id number] [place] [address] [place] NOROVIRUS GROUP 1 AND 2on NOROVIRUS 1 BY PCR Not detected Normal [facility] Comment on above: Order Comment: Speci men Type: STOOL SPECIMENOrdering Facility: [facility] Address: [address] [place] [address] Performed By: #### N ORPCR ####[facility] [id number] [place] [address] NOROVIRUS 2 BY PCR Not detected Normal [facility] Comment on above: Order Comment: Speci men Type: STOOL SPECIMENOrdering Facility: [facility] Address: [address] [place] [address] Result Comment: INTE RPRETIVE INFORMATION:A negative result does not rule out the presence of PCR inhibitorsin the patient specimen or test-specific nucleic acid inconcentrations below the level of detection by this test.This test was developed and its performance characteristicsdetermined by [employer]. It has not been cleared orapproved by the [place] Food and Drug Administration. This test wasperformed in a CLIA certified laboratory and is intended forclinical purposes.Performed By: [facility] [address] [place], [place] [id number] Director: Claudy Landers MD, PhDCLIA Number: [id number] Performed By: #### N ORPCR ####[facility] CENTERCLIA [id number] [place] [address] CBC W Auto Differential pane l (Bld)on 05-15-2024 Basophils (Bld) [#/Vol] 0.09 10*3/uL [facility] Basophils/100 WBC (Bld) 0.8 % [facility] Differential cell count method Nom (Bld) Auto [facility] Eosinophils (Bld) [#/Vol] 0.65 10*3/uL High [facility] Eosinophils/100 WBC (Bld) 5.4 % [facility] Erythrocyte distribution width (RBC) [Ratio] 13.4 % 11.5 - 15.0 % [facility] Hematocrit (Bld) [Volume fraction] 41.7 % 36.0 - 46.0 % [facility] Hemoglobin (Bld) [Mass/Vol] 13.1 g/dL 11.5 - 15.5 g/dL [facility] Immature granulocytes (Bld) [#/Vol] 0.05 10*3/uL [facility] Immature granulocytes/100 WBC (Bld) 0.4 % [facility] Interpretation and review of laboratory results Abnormal [facility] Lymphocytes (Bld) [#/Vol] 2.43 10*3/uL [facility] Lymphocytes/100 WBC (Bld) 20.3 % [facility] MCH (RBC) [Entitic mass] 26.4 pg 26.0 - 34.0 pg [facility] MCHC (RBC) [Mass/Vol] 31.4 g/dL 30.5 - 36.0 g/dL [facility] MCV (RBC) [Entitic vol] 83.9 fL 80.0 - 100.0 fL [facility] Monocytes (Bld) [#/Vol] 0.54 10*3/uL [facility] Monocytes/100 WBC (Bld) 4.5 % [facility] Neutrophils (Bld) [#/Vol] 8.22 10*3/uL High [facility] Neutrophils/100 WBC (Bld) 68.6 % [facility] Nucleated RBC (Bld) [#/Vol] NINF [facility] Nucleated RBC/100 WBC (Bld) [Ratio] 0.0 % /100 WBC [facility] Platelet mean volume (Bld) [Entitic vol] 9.8 fL 9.0 - 12.7 fL [facility] Platelets (Bld) [#/Vol] 567 10*3/uL High [facility] RBC (Bld) [#/Vol] 4.97 10*6/uL 3.90 - 5.2 0 m/uL [facility] WBC (Bld) [#/Vol] 11.98 10*3/uL High [facility] Basophils (Bld) [#/Vol] 0.09 10*3/uL Normal <0.11 [facility] Comment on above: Order Comment: Speci men Type: BLOOD SPECIMENOrdering Facility: [facility] Address: [address] [place] [address] Performed By: #### 5 7021-8, 453-7 ####[facility] LABCLIA [id number] [place] [address] [place] Basophils/100 WBC (Bld) 0.8 % Normal [facility] Comment on above: Order Comment: Speci men Type: BLOOD SPECIMENOrdering Facility: [facility] Address: [address] [place] [address] Performed By: #### 5 7021-8, 4537-7 ####[facility] LABCLIA [id number] [place] [address] [place] Differential cell count method Nom (Bld) Auto Normal [facility] Comment on above: Order Comment: Speci men Type: BLOOD SPECIMENOrdering Facility: [facility] Address: [address] [place] [address] Performed By: #### 5 7021-8, 7-7 ####[facility] LABCLIA [id number] [place] [address] [place] Eosinophils (Bld) [#/Vol] 0.65 10*3/uL High <0.46 [facility] Comment on above: Order Comment: Speci men Type: BLOOD SPECIMENOrdering Facility: [facility] Address: [address] [place] [address] Performed By: #### 5 7021-8, 4536-7 ####[facility] LABCLIA [id number] [place] [address] [place] Eosinophils/100 WBC (Bld) 5.4 % Normal [facility] Comment on above: Order Comment: Speci men Type: BLOOD SPECIMENOrdering Facility: [facility] Address: [address] [place] [address] Performed By: #### 5 7021-8, 4536-7 ####[facility] LABIA [id number] [place] [address] [place] Erythrocyte distribution width (RBC) [Ratio] 13.4 % Normal 11.5-15.0 [facility] Comment on above: Order Comment: Speci men Type: BLOOD SPECIMENOrdering Facility: [facility] Address: [address] [place] [address] Performed By: #### 5 7021-8, 4536-7 ####[facility] LABCLIA [id number] [place] [address] [place] Hematocrit (Bld) [Volume fraction] 41.7 % Normal 36.0-46.0 [facility] Comment on above: Order Comment: Speci men Type: BLOOD SPECIMENOrdering Facility: [facility] Address: [address] [place] [address] Performed By: #### 5 7021-8, 7-7 ####[facility] LABCLIA [id number] [place] [address] [place] Hemoglobin (Bld) [Mass/Vol] 13.1 g/dL Normal 11.5-15.5 [facility] Comment on above: Order Comment: Speci men Type: BLOOD SPECIMENOrdering Facility: [facility] Address: [address] [place] [address] Performed By: #### 5 7021-8, 4537-7 ####[facility] LABCLIA [id number] [place] [address] [place] Immature granulocytes (Bld) [#/Vol] 0.05 10*3/uL Normal <0.10 [facility] Comment on above: Order Comment: Speci men Type: BLOOD SPECIMENOrdering Facility: [facility] Address: [address] [place] [address] Performed By: #### 5 7021-8, 4537-7 ####[facility] LABCLIA [id number] [place] [address] [place] Immature granulocytes/100 WBC (Bld) 0.4 % Normal [facility] Comment on above: Order Comment: Speci men Type: BLOOD SPECIMENOrdering Facility: [facility] Address: [address] [place] [address] Performed By: #### 5 7021-8, 4537-7 ####[facility] LABCLIA [id number] [place] [address] [place] Lymphocytes (Bld) [#/Vol] 2.43 10*3/uL Normal 1.00-4.00 [facility] Comment on above: Order Comment: Speci men Type: BLOOD SPECIMENOrdering Facility: [facility] Address: [address] [place] [address] Performed By: #### 5 7021-8, 4537-7 ####[facility] LABCLIA [id number] [place] [address] [place] Lymphocytes/100 WBC (Bld) 20.3 % Normal [facility] Comment on above: Order Comment: Speci men Type: BLOOD SPECIMENOrdering Facility: [facility] Address: [address] [place] [address] Performed By: #### 5 7021-8, 4536-7 ####[facility] LABCLIA [id number] [place] [address] [place] MCH (RBC) [Entitic mass] 26.4 pg Normal 26.0-34.0 [facility] Comment on above: Order Comment: Speci men Type: BLOOD SPECIMENOrdering Facility: [facility] Address: [address] [place] [address] Performed By: #### 5 7021-8, 4537-7 ####[facility] LABCLIA [id number] [place] [address] [place] MCHC (RBC) [Mass/Vol] 31.4 g/dL Normal 30.5-36.0 [facility] Comment on above: Order Comment: Speci men Type: BLOOD SPECIMENOrdering Facility: [facility] Address: [address] [place] [address] Performed By: #### 5 7021-8, 7-7 ####[facility] LABCLIA [id number] [place] [address] [place] MCV (RBC) [Entitic vol] 83.9 fL Normal 80.0-100.0 [facility] Comment on above: Order Comment: Speci men Type: BLOOD SPECIMENOrdering Facility: [facility] Address: [address] [place] [address] Performed By: #### 5 7021-8, 7-7 ####[facility] LABCLIA [id number] [place] [address] [place] Monocytes (Bld) [#/Vol] 0.54 10*3/uL Normal <0.87 [facility] Comment on above: Order Comment: Speci men Type: BLOOD SPECIMENOrdering Facility: [facility] Address: [address] [place] [address] Performed By: #### 5 7021-8, 4536-7 ####[facility] LABCLIA [id number] [place] [address] [place] Monocytes/100 WBC (Bld) 4.5 % Normal [facility] Comment on above: Order Comment: Speci men Type: BLOOD SPECIMENOrdering Facility: [facility] Address: [address] [place] [address] Performed By: #### 5 7021-8, 4536-7 ####[facility] LABCLIA [id number] [place] [address] [place] Neutrophils (Bld) [#/Vol] 8.22 10*3/uL High 1.45-7.50 [facility] Comment on above: Order Comment: Speci men Type: BLOOD SPECIMENOrdering Facility: [facility] Address: [address] [place] [address] Performed By: #### 5 7021-8, 7 ####[facility] LABCLIA [id number] [place] [address] [place] Neutrophils/100 WBC (Bld) 68.6 % Normal [facility] Comment on above: Order Comment: Speci men Type: BLOOD SPECIMENOrdering Facility: [facility] Address: [address] [place] [address] Performed By: #### 5 7021-8, 7 ####[facility] LABCLIA [id number] [place] [address] [place] Nucleated RBC (Bld) [#/Vol] 10*3/uL Normal <0.01 [facility] Comment on above: Order Comment: Speci men Type: BLOOD SPECIMENOrdering Facility: [facility] Address: [address] [place] [address] Performed By: #### 5 7021-8, 4536-7 ####[facility] LABCLIA [id number] [address] [address] [place] Nucleated RBC/100 WBC (Bld) [Ratio] 0.0 /100 WBC Normal [facility] Comment on above: Order Comment: Speci men Type: BLOOD SPECIMENOrdering Facility: [facility] Address: [address] [place] [address] Performed By: #### 5 7021-8, 4537-7 ####[facility] LABCLIA [id number] [place] [address] [place] Platelet mean volume (Bld) [Entitic vol] 9.8 fL Normal 9.0-12.7 [facility] Comment on above: Order Comment: Speci men Type: BLOOD SPECIMENOrdering Facility: [facility] Address: [address] [place] [address] Performed By: #### 5 7021-8, 4537-7 ####[facility] LABIA [id number] [place] [address] [place] Platelets (Bld) [#/Vol] 567 10*3/uL High 150-400 [facility] Comment on above: Order Comment: Speci men Type: BLOOD SPECIMENOrdering Facility: [facility] Address: [address] [place] [address] Performed By: #### 5 7021-8, 4537-7 ####[facility] LABIA [id number] [place] [address] [place] RBC (Bld) [#/Vol] 4.97 10*6/uL Normal 3.90-5.20 [facility] Comment on above: Order Comment: Speci men Type: BLOOD SPECIMENOrdering Facility: [facility] Address: [address] [place] [address] Performed By: #### 5 7021-8, 4537-7 ####[facility] LABCLIA [id number] [place] [address] [place] WBC (Bld) [#/Vol] 11.98 10*3/uL High 3.70-11.00 [facility] Comment on above: Order Comment: Sultana mondragon Type: BLOOD SPECIMENOrdering Facility: [facility] Address: [address] [place] [address] Performed By: #### 5 7021-8, 4537-7 ####[facility] LABCLIA [id number] [place] [address] [place] CELIAC SCREENon 05-15-2024 GLIAD DEAMIDATED IGA QUAL Negative Normal Negative, Test not Indicated [facility] Comment on above: Order Comment: Sultana mondragon Type: BLOOD SPECIMENOrdering Facility: [facility] Address: [address] [place] [address] Result Comment: This is used as an aid in diagnosis of celiac disease. Clinical correlation is required.The following results were obtained with an Lango QUANTA Lite Gliadin IgA STACEY Gliadin. Gliadin IgA values obtained with different manufacturers' assay methods may not be used interchangeably. The magnitude of the reported IgA levels cannot be correlated to an endpoint titer. Performed By: #### L [id number] ####[facility] LABCLIA [id number] [place] [address] [place] Gliadin peptide IgA Qn (S) 1 Units Normal <20 [facility] Comment on above: Order Comment: Sultana mondragon Type: BLOOD SPECIMENOrdering Facility: [facility] Address: [address] [place] [address] Performed By: #### L [id number] ####[facility] LABCLIA [id number] [place] [address] [place] INTERPRETATION No serological evide nce of celiac disease, however, if celiac disease is clinically suspected and patient is not on gluten-free diet, histological diagnosis may be considered. HLA testing may help with risk assessment. Normal [facility] Comment on above: Order Comment: Sultana mondragon Type: BLOOD SPECIMENOrdering Facility: [facility] Address: [address] [place] [address] Performed By: #### L [id number] ####[facility] LABCLIA [id number] [place] [address] [place] TRANSGLUTAMINASE IGA ABS INTERPRETATION Negative Normal Negative [facility] Comment on above: Order Comment: Speci men Type: BLOOD SPECIMENOrdering Facility: [facility] Address: [address] [place] [address] Result Comment: The following results were obtained with AxtriaA SkySQLe R h-tTG IgA STACEY.???R h-tTG IgA values obtained with different manufacturers' assay methods may not be used interchangeably. The magnitude of the reported IgA levels cannot be corelated to an endpoint???concentration.This is used as an aid in diagnosis of celiac disease. Clinical correlation is required. Performed By: #### L [id number] ####[facility] LABCLIA [id number] [place] [address] [place] tTG IgA Qn (S) <2 Normal <4 [facility] Comment on above: Order Comment: Speci men Type: BLOOD SPECIMENOrdering Facility: [facility] Address: [address] [place] [address] Performed By: #### L [id number] ####[facility] LABCLIA [id number] [place] [address] [place] CNOVon 05-15-2024 CNOV Normal [facility] CRP SerPl-mCncon 05-15-2024 CRP [Mass/Vol] mg/L Normal <0.9 [facility] Comment on above: Order Comment: Speci men Type: BLOOD SPECIMENOrdering Facility: [facility] Address: [address] [place] [address] Performed By: #### 2 4323-8, 34501-6, 1988-5, 3016-3 ####[facility] LABCLIA [id number] [place] [address] [place] Comprehensive metabolic 2000 panelon 05-15-2024 Albumin [Mass/Vol] 4.3 g/dL Normal 3.9-4.9 [facility] Comment on above: Order Comment: Speci men Type: BLOOD SPECIMENOrdering Facility: [facility] Address: [address] [place], [place] [address] Performed By: #### 2 432-8, , 1987-09, 3015-07 ####[facility] LABCLIA [id number] [place] [id number] [place] ALP [Catalytic activity/Vol] 69 U/L Normal 34-123 [facility] Comment on above: Order Comment: Speci men Type: BLOOD SPECIMENOrdering Facility: [facility] Address: [address] [place] [address] Performed By: #### 2 432-8, , 1987-09, 3015-07 ####[facility] LABCLIA [id number] [place] [id number] [place] ALT [Catalytic activity/Vol] 29 U/L Normal 7-38 [facility] Comment on above: Order Comment: Speci men Type: BLOOD SPECIMENOrdering Facility: [facility] Address: [address] [place], [place] [address] Performed By: #### 2 432-8, , 1987-09, 3015-07 ####[facility] LABCLIA [id number] [place] [id number] [place] Anion gap [Moles/Vol] 12 mmol/L Normal 8-15 [facility] Comment on above: Order Comment: Speci men Type: BLOOD SPECIMENOrdering Facility: [facility] Address: [address] [place] [address] Performed By: #### 2 432-8, , 1987-09, 3015-07 ####[facility] LABCLIA [id number] [address] [address] [place] AST [Catalytic activity/Vol] 12 U/L Low 13-35 [facility] Comment on above: Order Comment: Speci men Type: BLOOD SPECIMENOrdering Facility: [facility] Address: [address] [place] [address] Performed By: #### 2 4323-8, , 1987-09, 3015-07 ####[facility] LABCLIA [id number] [place] [address] [place] Bilirubin [Mass/Vol] 0.4 mg/dL Normal 0.2-1.3 [facility] Comment on above: Order Comment: Speci men Type: BLOOD SPECIMENOrdering Facility: [facility] Address: [address] [place] [address] Performed By: #### 2 4323-8, , 1987-09, 3015-07 ####[facility] LABCLIA [id number] [place] [address] [place] Calcium [Mass/Vol] 9.4 mg/dL Normal 8.5-10.2 [facility] Comment on above: Order Comment: Speci men Type: BLOOD SPECIMENOrdering Facility: [facility] Address: [address] [place] [address] Performed By: #### 2 4323-8, , 1987-09, 3015-07 ####[facility] LABCLIA [id number] [place] [address] [place] Chloride [Moles/Vol] 104 mmol/L Normal 98-107 [facility] Comment on above: Order Comment: Speci men Type: BLOOD SPECIMENOrdering Facility: [facility] Address: [address] [place] [address] Performed By: #### 2 432-8, , 1987-09, 3015-07 ####[facility] LABCLIA [id number] [place] [id number] [place] CO2 [Moles/Vol] 23 mmol/L Normal 22-30 [facility] Comment on above: Order Comment: Sultana mondragon Type: BLOOD SPECIMENOrdering Facility: [facility] Address: [address] [place] [address] Performed By: #### 2 4323-8, , 1987-09, 3015-07 ####[facility] LABCLIA [id number] [place] [address] [place] Creatinine [Mass/Vol] 0.63 mg/dL Normal 0.58-0.96 [facility] Comment on above: Order Comment: Sultana mondragon Type: BLOOD SPECIMENOrdering Facility: [facility] Address: [address] [place] [address] Performed By: #### 2 432-8, , 1987-09, 3015-07 ####[facility] LABIA [id number] [place] [address] [place] Creatinine and Glomerular filtration rate.predicted panel (S/P/Bld) 120 mL/min/1.73m??? Normal >=60 [facility] Comment on above: Order Comment: Sultana mondragon Type: BLOOD SPECIMENOrdering Facility: [facility] Address: [address] [place] [address] Result Comment: Maria G mated Glomerular Filtration Rate (eGFR) is calculated using the 2020 CKD-EPI creatinine equation. This equation utilizes serum creatinine, sex, and age as parameters. The creatinine assay has traceable calibration to isotope dilution-mass spectrometry. Refer to KDIGO guidelines for clinical interpretation. In patients with unstable renal function, e.g. those with acute kidney injury, the eGFR may not accurately reflect actual GFR. Performed By: #### 2 4323-8, , 1987-09, 3015-07 ####[facility] LABCLIA [id number] [address] [address] [place] Glucose [Mass/Vol] 97 mg/dL Normal 74-99 [facility] Comment on above: Order Comment: Sultana mondragon Type: BLOOD SPECIMENOrdering Facility: [facility] Address: [address] [place] [address] Result Comment: The [place] Diabetes Association (ADA) provides guidance for cutoff values for fasting glucose and random glucose. The ADA defines fasting as no caloric intake for at least 8 hours. Fasting plasma glucose results between 100 to 125 mg/dL indicate increased risk for diabetes (prediabetes).Fasting plasma glucose results greater than or equal to 126 mg/dL meet the criteria for diagnosis of diabetes. In the absence of unequivocal hyperglycemia, results should be confirmed by repeat testing. In a patient with classic symptoms of hyperglycemia or hyperglycemic crisis, random plasma glucose results greater than or equal to 200 mg/dL meet the criteria for diagnosis of diabetes.Reference: Standards of Medical Care in Diabetes 2016, [place] [employer]. Diabetes Care. 2016.39(Suppl 1). Performed By: #### 2 4323-8, , 1987-09, 3015-07 ####[facility] LABCLIA [id number] [place] [id number] [place] Potassium [Moles/Vol] 4.1 mmol/L Normal 3.7-5.1 [facility] Comment on above: Order Comment: Sultana mondragon Type: BLOOD SPECIMENOrdering Facility: [facility] Address: [address] [place] [address] Performed By: #### 2 4328, , 1987-09, 3015-07 ####[facility] LABIA [id number] [place] [id number] [place] Protein [Mass/Vol] 6.7 g/dL Normal 6.3-8.0 [facility] Comment on above: Order Comment: Sultana mondragon Type: BLOOD SPECIMENOrdering Facility: [facility] Address: [address] [place] [address] Performed By: #### 2 4323-8, , 1987-09, 3015-07 ####[facility] LABCLIA [id number] [address] [address] [place] Sodium [Moles/Vol] 139 mmol/L Normal 136-144 [facility] Comment on above: Order Comment: Speci men Type: BLOOD SPECIMENOrdering Facility: [facility] Address: [address] [place] [address] Performed By: #### 2 4323-8, , 1987-09, 3015-3 ####[facility] LABCLIA [id number] [place] [address] [place] Urea nitrogen [Mass/Vol] 11 mg/dL Normal 7-21 [facility] Comment on above: Order Comment: Speci men Type: BLOOD SPECIMENOrdering Facility: [facility] Address: [address] [place] [address] Performed By: #### 2 4323-8, , 1987-09, 3015- ####[facility] LABCLIA [id number] [place] [address] [place] ESR Westergren method (Bld) [Velocity]on 05-15-2024 ESR (Bld) [Velocity] 2 mm/h [facility] Interpretation and review of laboratory results Normal [facility] ESR (Bld) [Velocity] 2 mm/h Normal 0-20 [facility] Comment on above: Order Comment: Speci men Type: BLOOD SPECIMENOrdering Facility: [facility] Address: [address] [place] [address] Performed By: #### 5 7021-8, 4537-7 ####[facility] LABCLIA [id number] [place] [id number] [place] IgA SerPl-mCncon 05-15-2024 IgA [Mass/Vol] 24 mg/dL Low 70-400 [facility] Comment on above: Order Comment: Speci men Type: BLOOD SPECIMENOrdering Facility: [facility] Address: [address] [place] [address] Performed By: #### 2 458-8 ####[facility] LABCLIA [id number] [address] [address] [place] Magnesium SerPl-mCncon 05-15 Magnesium [Mass/Vol] 2.1 mg/dL Normal 1.7-2.3 [facility] Comment on above: Order Comment: Speci men Type: BLOOD SPECIMENOrdering Facility: [facility] Address: [address] [place] [address] Performed By: #### 2 4323-8, , 1987-09, 3015-07 ####[facility] LABIA [id number] [place] [id number] [place] TSH SerPl-aCncon 05-15-2024 TSH Qn 1.360 m[IU]/L Normal 0.270-4.200 [facility] Comment on above: Order Comment: Speci men Type: BLOOD SPECIMENOrdering Facility: [facility] Address: [address] [place] [address] Result Comment: If t he patient is , TSH reference range varies by gestational period:First Trimester (weeks 9-12): 0.180-2.990 mIU/LSecond Trimester: 0.110-3.980 mIU/LThird Trimester: 0.480-4.710 mIU/Marquez Marinelli et al. A Practical Approach for the Verifications and Determination of Site- and Trimester-Specific Reference Intervals for Thyroid Function tests in . Thyroid, 2019:29:3:412-420. Gonzalo Leach, et al. 2017 Guidelines of the [place] Thy[employer] Association for the Diagnosis and Management of Thyroid Disease during and the . Thyroid, 2017:27:3:315-389. Performed By: #### 2 4323-8, , 1987-09, 3015-07 ####[facility] LABCLIA [id number] [address] [address] [place] CNOVon 05-14-2024 CNOV Normal [facility] CNPNon 05-14-2024 CNPN Normal [facility] DBT Breast - bilateral diagn ostic for implanton 05-14-2024 IMPRESSION: Finding 1: Stable calcifications in the upper outer quadrant of the left breast, middle depth are probably benign. Follow-up with diagnostic mammogram is recommended in 6 months. Finding 2: Finding in the upper outer quadrant of the right breast is benign. This is consistent with fibroglandular tissue and can be followed on a regular basis. Diagnostic evaluation of the LEFT breast in 6 months with magnification views is recommended as the patient is too young to begin annual mammography. BI-RADS Category 3: Probably Benign RISK: Based on the Tyrer-Cuzick (TC) risk assessment model, this patient has a 12.7% lifetime risk of developing breast cancer, meaning they are at average risk for developing breast cancer. However, this is only an estimate based on available history provided on the patient's questionnaire. We encourage all patients to talk with their providers about these results, further recommendations for managing breast health, and appropriate supplemental screening options if the patient has dense breast tissue. Interpreting Radiologist: Valeria Brannon M.D. [facility], [facility] Electronically signed on: 05/14/2024 Drying Tumbler Operator: JOHN Transcribe Date/Time: May 14 2024 8:43A Dictated by : VALERIA BRANNON MD This examination was interpreted and the report reviewed and electronically signed by: VALERIA BRANNON MD on May 14 2024 9:35AM [facility] * * *Final Report* * * DATE OF EXAM: May 14 2024 9:09AM DOLLY 0627 - LEANN SHEILA W ONESIMO JAMES / PROCEDURE REASON: R92.8-Abnormal mammogram * * * * Physician Interpretation * * * * [facility] [address] [place] [address] #[id number] - LEANN SHEILA W ONESIMO JAMES HISTORY: Patient is 33 years old and is seen for diagnostic evaluation of short term follow-up from a previous mammogram and short term follow-up from a previous asymmetry on the RIGHT and calcifications on the LEFT. Patient states no personal history of breast cancer. Patient states no personal history of other cancers. COMPARISON STUDIES: The present examination has been compared to prior imaging studies dated 08/31/2017 (mammogram), 11/09/2023 (mammogram), 11/16/2023 (ultrasound), 11/16/2023 (mammogram) and 05/14/2024 (ultrasound). MAMMOGRAM TECHNIQUE: The study was acquired using full field digital technology and interpreted from soft copy. Digital Breast Tomosynthesis (DBT) images were obtained and used to assist in the interpretation of this examination. Computer-aided detection was utilized by the radiologist in the interpretation of this examination. MAMMOGRAM FINDINGS: The breasts are heterogeneously dense, which may obscure small masses. Finding 1: There are several stable clustered layering calcifications in the upper outer quadrant of the left breast, middle depth. Findings suggest milk of calcium. They're better seen on the more recent studies likely due to technique. Continued short-term interval follow-up with magnification views at the time of the annual mammogram in 6 months is recommended. Finding 2: The RIGHT breast asymmetry is consistent with normal fibroglandular tissue. This can be followed on annual routine basis. No suspicious masses, calcifications or other abnormalities are seen in the right breast. [facility] Provider, [facility] - 05/14/2024 * * *Final Report* * * DATE OF EXAM: May 14 2024 9:09AM DOLLY 0627 - LEANN ECHOLS JAMES / PROCEDURE REASON: R92.8-Abnormal mammogram * * * * Physician Interpretation * * * * [place] [address] #[id number] - LEANN ECHOLS JAMES HISTORY: Patient is 33 years old and is seen for diagnostic evaluation of short term follow-up from a previous mammogram and short term follow-up from a previous asymmetry on the RIGHT and calcifications on the LEFT. Patient states no personal history of breast cancer. Patient states no personal history of other cancers. COMPARISON STUDIES: The present examination has been compared to prior imaging studies dated 08/31/2017 (mammogram), 11/09/2023 (mammogram), 11/16/2023 (ultrasound), 11/16/2023 (mammogram) and 05/14/2024 (ultrasound). MAMMOGRAM TECHNIQUE: The study was acquired using full field digital technology and interpreted from soft copy. Digital Breast Tomosynthesis (DBT) images were obtained and used to assist in the interpretation of this examination. Computer-aided detection was utilized by the radiologist in the interpretation of this examination. MAMMOGRAM FINDINGS: The breasts are heterogeneously dense, which may obscure small masses. Finding 1: There are several stable clustered layering calcifications in the upper outer quadrant of the left breast, middle depth. Findings suggest milk of calcium. They're better seen on the more recent studies likely due to technique. Continued short-term interval follow-up with magnification views at the time of the annual mammogram in 6 months is recommended. Finding 2: The RIGHT breast asymmetry is consistent with normal fibroglandular tissue. This can be followed on annual routine basis. No suspicious masses, calcifications or other abnormalities are seen in the right breast. IMPRESSION IMPRESSION: Finding 1: Stable calcifications in the upper outer quadrant of the left breast, middle depth are probably benign. Follow-up with diagnostic mammogram is recommended in 6 months. Finding 2: Finding in the upper outer quadrant of the right breast is benign. This is consistent with fibroglandular tissue and can be followed on a regular basis. Diagnostic evaluation of the LEFT breast in 6 months with magnification views is recommended as the patient is too young to begin annual mammography. BI-RADS Category 3: Probably Benign RISK: Based on the Tyrer-Cuzick (TC) risk assessment model, this patient has a 12.7% lifetime risk of developing breast cancer, meaning they are at average risk for developing breast cancer. However, this is only an estimate based on available history provided on the patient's questionnaire. We encourage all patients to talk with their providers about these results, further recommendations for managing breast health, and appropriate supplemental screening options if the patient has dense breast tissue. Interpreting Radiologist: Valeria Brannon M.D. FACR, FSBI Electronically signed on: 05/14/2024 Drying Tumbler Operator: JOHN Transcribe Date/Time: May 14 2024 8:43A Dictated by : VALERIA BRANNON MD This examination was interpreted and the report reviewed and electronically signed by: VALERIA BRANNON MD on May 14 2024 9:35AM EST [facility] Radiology Study observation (narrative) [facility] DBT Breast - bilateral diagn ostic for implantOrdered By: Ccf Provider on 05-14-2024 [facility] LEANN ESPINOSAon 2023 LEANN [place] ONESIMO JAMES * * *Final Report* * * DATE OF EXAM: May 14 2024 9:09AM [facility] 0627 - LEANN ECHOLS JAMES / PROCEDURE REASON: R92.8-Abnormal mammogram * * * * Physician Interpretation * * * * [place] [address] #[id number] - LEANN ECHOLS JAMES HISTORY: Patient is 33 years old and is seen for diagnostic evaluation of short term follow-up from a previous mammogram and short term follow-up from a previous asymmetry on the RIGHT and calcifications on the LEFT. Patient states no personal history of breast cancer. Patient states no personal history of other cancers. COMPARISON STUDIES: The present examination has been compared to prior imaging studies dated 08/31/2017 (mammogram), 11/09/2023 (mammogram), 11/16/2023 (ultrasound), 11/16/2023 (mammogram) and 05/14/2024 (ultrasound). MAMMOGRAM TECHNIQUE: The study was acquired using full field digital technology and interpreted from soft copy. Digital Breast Tomosynthesis (DBT) images were obtained and used to assist in the interpretation of this examination. Computer-aided detection was utilized by the radiologist in the interpretation of this examination. MAMMOGRAM FINDINGS: The breasts are heterogeneously dense, which may obscure small masses. Finding 1: There are several stable clustered layering calcifications in the upper outer quadrant of the left breast, middle depth. Findings suggest milk of calcium. They're better seen on the more recent studies likely due to technique. Continued short-term interval follow-up with magnification views at the time of the annual mammogram in 6 months is recommended. Finding 2: The RIGHT breast asymmetry is consistent with normal fibroglandular tissue. This can be followed on annual routine basis. No suspicious masses, calcifications or other abnormalities are seen in the right breast. IMPRESSION: Finding 1: Stable calcifications in the upper outer quadrant of the left breast, middle depth are probably benign. Follow-up with diagnostic mammogram is recommended in 6 months. Finding 2: Finding in the upper outer quadrant of the right breast is benign. This is consistent with fibroglandular tissue and can be followed on a regular basis. Diagnostic evaluation of the LEFT breast in 6 months with magnification views is recommended as the patient is too young to begin annual mammography. BI-RADS Category 3: Probably Benign RISK: Based on the Tyrer-Cuzick (TC) risk assessment model, this patient has a 12.7% lifetime risk of developing breast cancer, meaning they are at average risk for developing breast cancer. However, this is only an estimate based on available history provided on the patient's questionnaire. We encourage all patients to talk with their providers about these results, further recommendations for managing breast health, and appropriate supplemental screening options if the patient has dense breast tissue. Interpreting Radiologist: Valeria Brannon M.D. FACR, FSBI Electronically signed on: 05/14/2024 Drying Tumbler Operator: JOHN Transcribe Date/Time: May 14 2024 8:43A Dictated by : VALERIA BRANNON MD This examination was interpreted and the report reviewed and electronically signed by: VALERIA BRANNON MD on May 14 2024 9:35AM EST [id number] Normal [facility] CNOVon 04-27-2024 CNOV Normal [facility] CNOVon 04-18-2024 CNOV Normal [facility] CBC panel Auto (Bld)on 04-06 Erythrocyte distribution width (RBC) [Ratio] 14.1 % Normal 11.5-15.0 [facility] Comment on above: Order Comment: Speci men Type: BLOOD SPECIMENOrdering Facility: [facility] Address: [address] [place] [address] Performed By: #### 5 8410-2 ####[facility] [id number] [place] [address] [place] Hematocrit (Bld) [Volume fraction] 41.0 % Normal 36.0-46.0 [facility] Comment on above: Order Comment: Speci men Type: BLOOD SPECIMENOrdering Facility: [facility] Address: [address] [place] [address] Performed By: #### 5 8410-2 ####[facility] [id number] [place] [address] [place] Hemoglobin (Bld) [Mass/Vol] 13.2 g/dL Normal 11.5-15.5 [facility] Comment on above: Order Comment: Speci men Type: BLOOD SPECIMENOrdering Facility: [facility] Address: [address] [place] [address] Performed By: #### 5 8410-2 ####[facility] [id number] [place] [address] [place] MCH (RBC) [Entitic mass] 26.9 pg Normal 26.0-34.0 [facility] Comment on above: Order Comment: Speci men Type: BLOOD SPECIMENOrdering Facility: [facility] Address: [address] [place] [address] Performed By: #### 5 8410-2 ####[facility] [id number] [place] [address] [place] MCHC (RBC) [Mass/Vol] 32.2 g/dL Normal 30.5-36.0 [facility] Comment on above: Order Comment: Speci men Type: BLOOD SPECIMENOrdering Facility: [facility] Address: [address] [place] [address] Performed By: #### 5 8410-2 ####[facility] [id number] [place] [address] [place] MCV (RBC) [Entitic vol] 83.5 fL Normal 80.0-100.0 [facility] Comment on above: Order Comment: Speci men Type: BLOOD SPECIMENOrdering Facility: [facility] Address: [address] [place] [address] Performed By: #### 5 8410-2 ####[facility] [id number] [place] [address] [place] Nucleated RBC (Bld) [#/Vol] 10*3/uL Normal <0.01 [facility] Comment on above: Order Comment: Speci men Type: BLOOD SPECIMENOrdering Facility: [facility] Address: [address] [place] [address] Performed By: #### 5 8410-2 ####[facility] [id number] [place] [address] [place] Platelet mean volume (Bld) [Entitic vol] 9.6 fL Normal 9.0-12.7 [facility] Comment on above: Order Comment: Speci men Type: BLOOD SPECIMENOrdering Facility: [facility] Address: [address] [place] [address] Performed By: #### 5 8410-2 ####[facility] [id number] [place] [address] [place] Platelets (Bld) [#/Vol] 463 10*3/uL High 150-400 [facility] Comment on above: Order Comment: Speci men Type: BLOOD SPECIMENOrdering Facility: [facility] Address: [address] [place] [address] Performed By: #### 5 8410-2 ####[facility] [id number] [place] [address] [place] RBC (Bld) [#/Vol] 4.91 10*6/uL Normal 3.90-5.20 [facility] Comment on above: Order Comment: Speci men Type: BLOOD SPECIMENOrdering Facility: [facility] Address: [address] [place] [address] Performed By: #### 5 8410-2 ####[facility] [id number] [place] [address] [place] WBC (Bld) [#/Vol] 12.69 10*3/uL High 3.70-11.00 [facility] Comment on above: Order Comment: Speci men Type: BLOOD SPECIMENOrdering Facility: [facility] Address: [facility] [place] [address] Performed By: #### 5 8410-2 ####[facility] [id number] [place] [address] [place] MR Brain WO and W contrast I Ron 04-06-2024 IMPRESSION: 1. NO ACUTE INTRACRANIAL PROCESS 2. NO SUSPICIOUS ENHANCEMENT 3. 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 Drying Tumbler Operator: CHINMAY Transcribe Date/Time: Apr 06 2024 11:37A Dictated by : ALEJANDRA DONIS MD This examination was interpreted and the report reviewed and electronically signed by: ALEJANDRA DONIS MD on Apr 06 2024 12:00PM [facility] DIVISION OF RADIOLOGY * * *Final Report* * * DATE OF EXAM: Apr 06 2024 11:17AM [facility] 0295 - MRI BRAIN WO/W IVCON / PROCEDURE REASON: multiple diagnoses * * * * Physician Interpretation * * * * EXAMINATION: MRI BRAIN WO/W IVCON CLINICAL HISTORY: Worsening headaches, confusion TECHNIQUE: Routine brain MRI protocol without and with contrast including diffusion images. MQ: MRBWOW_2 Contrast: 20 mL Dotarem IV COMPARISON: Brain MRI 10/26/2016 for headaches RESULT: Acute Change: There is no evidence of restricted diffusion to suggest an acute infarct. Hemorrhage: No evidence of prior parenchymal hemorrhage on the susceptibility weighted images. Mass Lesion/ Mass Effect: No evidence of an intracranial mass or extra-axial fluid collection. No abnormal parenchymal or leptomeningeal enhancement is noted following contrast administration. No significant mass effect. Chronic Change: The white matter is within normal limits of signal intensity for age. Parenchyma: No significant volume loss for age. The brain parenchyma is otherwise within normal limits of signal intensity and morphology. Ventricles: Normal caliber and morphology. Skull Base: Hypothalamic and pituitary region are grossly normal. Craniocervical junction is normal. No significant marrow replacement process. Vasculature: Major intracranial arterial structures, and dural venous sinuses show typical flow void, suggesting patency by spin echo criteria. Other: Redemonstrated is previously seen mucosal disease in the maxillary sinuses, without serous fluid level, and is reconfigured from 2017. Otherwise the visualized paranasal sinuses and mastoid air cells are clear. The orbits and extracranial soft tissues are unremarkable. DIVISION OF RADIOLOGY Provider, Linda Florez [facility] - 04/06/2024 * * *Final Report* * * DATE OF EXAM: Apr 06 2024 11:17AM [facility] 0295 - MRI BRAIN WO/W IVCON / PROCEDURE REASON: multiple diagnoses * * * * Physician Interpretation * * * * EXAMINATION: MRI BRAIN WO/W IVCON CLINICAL HISTORY: Worsening headaches, confusion TECHNIQUE: Routine brain MRI protocol without and with contrast including diffusion images. MQ: MRBWOW_2 Contrast: 20 mL Dotarem IV COMPARISON: Brain MRI 10/26/2016 for headaches RESULT: Acute Change: There is no evidence of restricted diffusion to suggest an acute infarct. Hemorrhage: No evidence of prior parenchymal hemorrhage on the susceptibility weighted images. Mass Lesion/ Mass Effect: No evidence of an intracranial mass or extra-axial fluid collection. No abnormal parenchymal or leptomeningeal enhancement is noted following contrast administration. No significant mass effect. Chronic Change: The white matter is within normal limits of signal intensity for age. Parenchyma: No significant volume loss for age. The brain parenchyma is otherwise within normal limits of signal intensity and morphology. Ventricles: Normal caliber and morphology. Skull Base: Hypothalamic and pituitary region are grossly normal. Craniocervical junction is normal. No significant marrow replacement process. Vasculature: Major intracranial arterial structures, and dural venous sinuses show typical flow void, suggesting patency by spin echo criteria. Other: Redemonstrated is previously seen mucosal disease in the maxillary sinuses, without serous fluid level, and is reconfigured from 2017. Otherwise the visualized paranasal sinuses and mastoid air cells are clear. The orbits and extracranial soft tissues are unremarkable. IMPRESSION IMPRESSION: 1. NO ACUTE INTRACRANIAL PROCESS 2. NO SUSPICIOUS ENHANCEMENT 3. 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 Drying Tumbler Operator: PSCB Transcribe Date/Time: Apr 06 2024 11:37A Dictated by : ALEJANDRA DONIS MD This examination was interpreted and the report reviewed and electronically signed by: ALEJANDRA DONIS MD on Apr 06 2024 12:00PM EST [facility] Radiology Study observation (narrative) [facility] MR Brain WO and W contrast I VOrdered By: Ccf Provider on 04-06-2024 [facility] MRI BRAIN WO/W IVCONon 04-06 MRI BRAIN WO/W IVCON Normal [facility] CNPNon 04-04-2024 CNPN Normal [facility] CNOVon 03-28-2024 CNOV Normal [facility] CNOVon 03-26-2024 CNOV Normal [facility] CNOVon 03-22-2024 CNOV Normal [facility] US Pelvison 03-22-2024 Indication Localization of IUD Impression 3D rendering of the uterus confirms the proper location of the IUD within the endometrial cavity. The caudal end of the IUD strings extend down into the endocervical canal and end approximately 16 mm from the external os. The uterus is anteverted and measures 99 mm x 54 mm x 65 mm. The endometrial thickness is 6.1 mm. The right ovary measures 39 mm x 39 mm x 27 mm. The left ovary measures 28 mm x 26 mm x 22 mm. There is no free fluid visualized. Technique: Three dimensional imaging was created on a dedicated stand-alone 3D workstation with images created and archived, and supervised and reviewed by the interpreting physician utilizing images from a US Scan performed on 03/22/24. Recommendations 3D imaging confirms the IUD to be in the proper location within the fundal endometrial cavity with the IUD strings extending caudally into the endocervical canal. Menstrual History Contraception: Intrauterine contraceptive device Method Transabdominal and transvaginal ultrasound examination, 3D ultrasound examination, Color Doppler examination. View: Adequate visualization Uterus Uterus: Visualized Uterus position: anteverted Description of uterine malformations: normally shaped Myometrium: normal Endometrium: endometrial midline: linear Cervix details: cystic lesions identified suggesting superficial Nabothian cysts Uterus length 99 mm Uterus width 65 mm Uterus height 54 mm Uterus Vol 183.5 cm Endometrial thickness, total 6.1 mm Fibroids: No fibroids identified Polyps: No polyps identified IUCD Position control IUCD type: Mirena intrauterine system. Location: positioned correctly at the fundus of the uterus Right Ovary Rt ovary: Visualized Outline: smooth Rt ovary morphology: premenopausal normal follicular Rt ovary D1 39 mm Rt ovary D2 39 mm Rt ovary D3 27 mm Rt ovary Vol 21.4 cm Rt ovarian cyst(s): No cysts identified Left Ovary Lt ovary: Visualized Outline: smooth Lt ovary morphology: premenopausal normal follicular Lt ovary D1 28 mm Lt ovary D2 26 mm Lt ovary D3 22 mm Lt ovary Vol 8.2 cm Lt ovarian cyst(s): No cysts identified Cul de Sac Visualized. no free fluid visualized Procedure To characterize the IUD, three dimensional imaging was created on a dedicated stand-alone 3D workstation with images created and archived, and supervised and reviewed by the interpreting physician utilizing images from an ultrasound scan performed today. Performed By: Katelyn Monte RDMS Read By: Kayce Elliott M.D. MATERNAL MEDICINE [facility] Radiology Study observation (narrative) [facility] CNOVon 03-21-2024 CNOV Normal [facility] Basic Metabolic Profile (BMP )on 03-20-2024 BUN/CRE 35.1 RATIO High 10-20 [facility] Comment on above: Performed By: #### L 500.2500, L100.0100, L700.8000 ####[facility] [address] [place], [address] CA,Total 9.5 mg/dL Normal 8.5-10.1 [facility] Comment on above: Performed By: #### L 500.2500, L100.0100, L700.8000 ####[facility] [address] [place], [address] Chloride [Moles/Vol] 107 mmol/L Normal 98-107 [facility] Comment on above: Performed By: #### L 500.2500, L100.0100, L700.8000 ####[facility] [address] [place], [address] CO2 [Moles/Vol] 24.0 mmol/L Normal 21.0-32.0 [facility] Comment on above: Performed By: #### L 500.2500, L100.0100, L700.8000 ####[facility] [address] [place], [address] Creatinine [Mass/Vol] 0.63 mg/dL Normal 0.55-1.02 [facility] Comment on above: Result Comment: The validity of the calculated GFR GFRAA in patients over 70 years has not been determined. Clinical correlation is essential. Performed By: #### L 500.2500, L100.0100, L700.8000 ####[facility] [address] [place], [address] ECRCL 150.64 ml/min Normal [facility] Comment on above: Performed By: #### L 500.2500, L100.0100, L700.8000 ####[facility] [address] [place], [address] EST GFR - AA 141 mL/min Normal >60 [facility] Comment on above: Result Comment: Afri can Albanian GFR Calc Performed By: #### L 500.2500, L100.0100, L700.8000 ####[facility] [address] [place], [address] GAP 8 Normal 5-15 [facility] Comment on above: Performed By: #### L 500.2500, L100.0100, L700.8000 ####[facility] [address] [place], [address] GFR/1.73 sq M.predicted among non-blacks MDRD (S/P/Bld) [Vol rate/Area] 116 mL/min/{1.73_m2} Normal >60 [facility] Comment on above: Result Comment: Non- GFR Calc Performed By: #### L 500.2500, L100.0100, L700.8000 ####[facility] [address] [place], [address] Glucose [Mass/Vol] 80 mg/dL Normal 74-106 [facility] Comment on above: Performed By: #### L 500.2500, L100.0100, L700.8000 ####[facility] [address] [place], [address] Potassium [Moles/Vol] 3.7 mmol/L Normal 3.5-5.1 [facility] Comment on above: Performed By: #### L 500.2500, L100.0100, L700.8000 ####[facility] [address] [place], [address] Sodium [Moles/Vol] 138 mmol/L Normal 136-145 [facility] Comment on above: Performed By: #### L 500.2500, L100.0100, L700.8000 ####[facility] [address] [place], [address] Urea nitrogen [Mass/Vol] 22 mg/dL High 7-18 [facility] Comment on above: Performed By: #### L 500.2500, L100.0100, L700.8000 ####[facility] [address] [place], [address] CBC W/Diff, Automatedon 11-0 5-2023 Absolute Lymph 3.17 X10 3/uL Normal 0.83-4.51 [facility] Comment on above: Performed By: #### L 500.2500, L100.0100, L700.8000 #### [facility] [address] [place], [address] Absolute Neut 7.0 X10 3/uL Normal 2.0-7.7 [facility] Comment on above: Performed By: #### L 500.2500, L100.0100, L700.8000 #### [facility] [address] [place], [address] Basophils/100 WBC (Bld) 0.5 % Normal 0-1 [facility] Comment on above: Performed By: #### L 500.2500, L100.0100, L700.8000 #### [facility] [address] [place], [address] Eosinophils/100 WBC (Bld) 3.9 % Normal 0-5 [facility] Comment on above: Performed By: #### L 500.2500, L100.0100, L700.8000 #### [facility] [address] [place], [address] Erythrocyte distribution width (RBC) [Ratio] 13.5 % Normal 11.6-14.6 [facility] Comment on above: Performed By: #### L 500.2500, L100.0100, L700.8000 #### [facility] Laboratory [address] [place], [address] Hematocrit (Bld) [Volume fraction] 40.6 % Normal 37-47 [facility] Comment on above: Performed By: #### L 500.2500, L100.0100, L700.8000 #### [facility] [address] [place], [address] Hemoglobin (Bld) [Mass/Vol] 12.9 g/dL Normal 12.0-15.0 [facility] Comment on above: Performed By: #### L 500.2500, L100.0100, L700.8000 #### [facility] [address] [place], [address] IG% 0.500 Normal 0.0-0.9 [facility] Comment on above: Result Comment: IG% - Immature Granulocytes (promyelocytes, myelocytes and metamyelocytes) > 1% indicates that a LEFT SHIFT is Present. Performed By: #### L 500.2500, L100.0100, L700.8000 #### [facility] [address] [place], [address] Lymphocytes/100 WBC (Bld) 28.0 % Normal 19-41 [facility] Comment on above: Performed By: #### L 500.2500, L100.0100, L700.8000 #### [facility] [address] [place], [address] MCH (RBC) [Entitic mass] 26.4 pg Low 27.0-32.0 [facility] Comment on above: Performed By: #### L 500.2500, L100.0100, L700.8000 #### [facility] [address] [place], [address] MCHC (RBC) [Mass/Vol] 31.8 g/dL Low 32-36 [facility] Comment on above: Performed By: #### L 500.2500, L100.0100, L700.8000 #### [facility] [address] [place], [address] MCV (RBC) [Entitic vol] 83.2 fL Normal 81-99 [facility] Comment on above: Performed By: #### L 500.2500, L100.0100, L700.8000 #### [facility] [address] [place], [address] Monocytes/100 WBC (Bld) 5.1 % Normal 0-10 [facility] Comment on above: Performed By: #### L 500.2500, L100.0100, L700.8000 #### [facility] [address] [place], [address] Neutrophils/100 WBC (Bld) 62.0 % Normal 47-70 [facility] Comment on above: Performed By: #### L 500.2500, L100.0100, L700.8000 #### [facility] [address] [place], [address] Nucleated RBC (Bld) [#/Vol] 0 10*3/uL Normal 0-5 [facility] Comment on above: Performed By: #### L 500.2500, L100.0100, L700.8000 #### [facility] [address] [place], [address] Platelet mean volume (Bld) [Entitic vol] 10.1 fL Normal 6.2-12.0 [facility] Comment on above: Performed By: #### L 500.2500, L100.0100, L700.8000 #### [facility] [address] [place], [address] Platelets (Bld) [#/Vol] 523 10*3/uL High 150-450 [facility] Comment on above: Performed By: #### L 500.2500, L100.0100, L700.8000 #### [facility] [address] [place], [address] RBC (Bld) [#/Vol] 4.88 10*6/uL Normal 4.2-5.4 [facility] Comment on above: Performed By: #### L 500.2500, L100.0100, L700.8000 #### [facility] [address] [place], [address] RDW SD 41.0 fl Normal 35.1-43.9 [facility] Comment on above: Performed By: #### L 500.2500, L100.0100, L700.8000 #### [facility] [address] [place], [address] WBC (Bld) [#/Vol] 11.3 10*3/uL High 4.4-11.0 [facility] Comment on above: Performed By: #### L 500.2500, L100.0100, L700.8000 #### [facility] [address] [place], [address] Emergency Department Summary on 03-20-2024 Emergency Department Summary [facility] Medical Records Department [address] [place] [address] Emergency Department Summary 03/20/24 MR#: [id number] Acct: [id number] Name: MARIA ELENA GARAY Rep #: [id number] : 1990 33 From: Yovani Escobedo DO PCP: Dr. Jes Fuentes MD Status:REG ER Location: ED HPI HPI - Female History of Present Illness Chief Complaint: Female [facility] Medical History Anxiety Arthritis Asthma Migraines Tonsillectomy planned Home Medications ???Medication ???Instructions ???Recorded ???Last Taken ???Type gabapentin 100 mg capsule 400 mg PO TID MIGRAINS 10/04/16 07/20/21 History albuterol sulfate 90 mcg/actuation 1 - 2 puff inhalation Q6H PRN PRN 03/22/18 07/20/21 History aerosol inhaler (ProAir HFA) Asthma eletriptan 40 mg tablet (Relpax) 40 mg PO .X1 PRN MIGRAINES 03/22/18 Unknown History acetaminophen 160 mg/5 mL (5 mL) 500 mg (15.625 mL) PO Q4H PRN PRN 03/24/18 Unknown Rx oral suspension Mild-Moderate Pain (1-5/10) venlafaxine 75 mg tablet 150 mg PO DAILY 04/30/19 07/20/21 History ondansetron 4 mg disintegrating 4 mg PO Q8H PRN PRN Nausea #10 tabs 11/07/19 Unknown Rx tablet cholecalciferol (vitamin D3) 125 125 mcg PO DAILY 03/31/21 07/20/21 History mcg (5,000 unit) tablet hydrochlorothiazide 12.5 mg capsule 12.5 mg PO DAILY 03/31/21 07/20/21 History melatonin 10 mg tablet 10 mg PO QHS 03/31/21 07/19/21 History meloxicam 15 mg tablet 15 mg PO DAILY 03/31/21 07/20/21 History sertraline 25 mg tablet 25 mg PO QHS 03/31/21 07/19/21 History lisinopril 10 mg tablet 10 mg PO DAILY 04/01/21 07/20/21 History ubrogepant 50 mg tablet (Ubrelvy) 50 mg PO BID 07/20/21 Unknown History budesonide-formoterol HFA 80 1 inh inhalation BID #10.2 grams 07/21/21 Unknown Rx mcg-4.5 mcg/actuation aerosol inhaler (Symbicort) prednisone 10 mg tablet 10 mg PO DAILY #30 tabs 07/21/21 Unknown Rx atogepant 60 mg tablet 60 mg PO DAILY 12/14/23 Unknown History chlorzoxazone 500 mg tablet 500 mg PO TID 12/14/23 Unknown History cyclobenzaprine 10 mg tablet 10 mg PO TID 12/14/23 Unknown History pantoprazole 40 mg tablet,delayed 40 mg PO DAILY 12/14/23 Unknown History release propranolol 80 mg capsule,24 80 mg PO DAILY 12/14/23 Unknown History hr,extended release rimegepant 75 mg disintegrating 75 mg PO ONCE PRN 12/14/23 Unknown History tablet (Nurtec ODT) tramadol 50 mg tablet 50 mg PO TID PRN 12/14/23 Unknown History Allergy/AdvReac Type Severity Reaction Status Date / Time metoclopramide (From Reglan) AdvReac severe Verified 03/20/24 12:43 anxious prochlorperazine (From AdvReac severe Verified 03/20/24 12:43 Compazine) anxious Family History Mother Thyroid cancer Skin cancer Hypertension Surgical History History of appendectomy S/P cholecystectomy S/P left knee arthroscopy tubes clamped Social History household members: spouse Smoking Status: Never smoker alcohol intake: never substance use type: does not use EXAM Physical Exam Const Vital Signs: 03/20/24 12:44 03/20/24 14:43 03/20/24 16:00 Temperature 97.2 F L Temperature Source Temporal Pulse Rate 112 H 86 78 Respiratory Rate 18 18 19 H Blood Pressure 143/104 H 139/97 H 153/84 H Blood Pressure Mean 117 111 107 Pulse Ox 99 98 98 Oxygen Delivery Method Room Air MDM MDM MDM Narrative Medical decision making narrative: HISTORY OF PRESENT ILLNESS: 33-year-old female presents with pelvic pain. No she had IUD placed on 03/09 (11 days ago). Notes pelvic pain since. Vaginal bleeding since. States she is Perseris. On that time. Denies lightheadedness dizziness. Denies vomiting but notes nausea. Denies fever. Notes history of multiple abdominal surgeries including tubal ligation, appendectomy and cholecystectomy. Denies constipation or diarrhea. She is not sexually active. Denies urinary complaints. REVIEW OF SYSTEMS: Pertinent positives: Pelvic pain, vaginal bleeding Pertinent negatives: Urinary complaints, PHYSICAL EXAM: Nursing triage notes reviewed, Vital signs reviewed Constitutional: please see mdm HENT: MMM Eyes: Pupils equal round and reactive to light, Extraocular muscles intact Neck: No stridor, no JVD, full neck ROM Lungs: Clear to auscultation, No wheezing or rales. No increased work of breathing, no conversational dyspnea, no accessory muscle use, no nasal flaring. No respiratory distress noted Heart: Regular rate and rhythm, No murmurs, No rubs and No gallops, 2+ distal pulses (radial, femoral, posterior tibial) in all extremities Abdomen: Soft, th (more content not included)... Normal [facility] Transvaginal Non-on 03-20-2024 Transvaginal Non- [facility] Imaging Services [address] [address] Transvaginal Non- MR#: [id number] Acct: [id number] Name: MARIA ELENA GARAY Rep #: [id number] : 1990 F 33 From: Lai Chauhan MD PCP: Dr. Jes Fuentes MD Status: REG ER Study: Transvaginal Non- Date of Exam: Exam# [id number] Ordering Dr: Yovani Escobedo DO [id number] STUDY: ULTRASOUND OF THE FEMALE PELVIS - COMPLETE REASON FOR EXAM: Female, 33 years old. pelvic pain recent IUD placement LMP: TECHNIQUE: Transvaginal TECHNICAL QUALITY: Adequate. COMPARISON: None. FINDINGS: The uterus is anteverted and is in a midline position. The uterus measures 10.1 x 5.8 x 4.9 cm. Normal uterine cervix. The endometrium measures 7 mm in thickness, and is hyperechoic. There is no demonstrated endometrial mass. There is no demonstrated myometrial mass. I.U.D. - The patient does have an I.U.D. in satisfactory position The right ovary is visualized. The right ovary measures 3.7 x 2.5 x 2.7 cm. There is a cyst measuring 1.8 x 1.6 x 1.5 cm There is no visualized right adnexal mass or complex lesion. There is normal arterial and normal venous vascularity. The left ovary is visualized. The left ovary measures 2.7 x 2.3 x 2 cm. There is no left ovarian cyst. There is a very small echogenic density in the left ovary measuring 1.4 x 1.4 cm of uncertain etiology or clinical significance . There is normal arterial and normal venous vascularity. There is no fluid in the cul-de-sac. The pre void volume of the bladder was ml. The post void volume of the bladder was ml. Polycystic ovary disease: No. US/Transvaginal Non- IMPRESSION: Normal uterus status post IUD placement Small right ovarian cyst measuring 1.8 1.6 x 1.5 cm Incidental finding of small hyperechoic echogenic density within the left ovary of indeterminate etiology or clinical significance. This can be further assessed with MRI or follow-up pelvic ultrasound if clinically warranted Electronically Signed: Lai Chauhan MD at 16:23 EST Reading Location ID and State: [address] [place] [address] Tel , Service support , CC: Dr. Yovani Escobedo DO; Dr. 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, [address] EPI,SQUAMOUS 5-10 SEEN Normal 5-10 [facility] Comment on above: Order Comment: COLLE CTOR TO SPECIFY Performed By: #### L 400.0001 #### [facility] [address] [place], [address] RBC 0-5 SEEN Normal 0-5 [facility] Comment on above: Order Comment: SAVITA CTOR TO SPECIFY Performed By: #### L 400.0001 #### [facility] [address] [place], [address] WBC 0-5 SEEN Normal 0-5 [facility] Comment on above: Order Comment: SAVITA CTOR TO SPECIFY Performed By: #### L 400.0001 #### [facility] [address] [place], [address] Mucus Ql (Urine sed) [address] [facility] Comment on above: Order Comment: SAVITA CTOR TO SPECIFY Performed By: #### L 400.0001 #### [facility] [address] [place], [address] hCG Titer Quant., Serumon HCG QUANT. < 1 Normal 1-3 [facility] Comment on above: Result Comment: hCG levels with Gestational Age Gestational Age hCG mIU/mL (IU/L) 0.2 - 1 week 5 - 50 1-2 weeks 50 - 500 2-3 weeks 100 - 5000 3-4 weeks 500 - 13211 4-5 weeks 1000 - 94729 5-6 weeks 81502 - 100,000 6-8 weeks 88531 - 200,000 2-3 months 14087 - 100,000 Performed By: #### L 500.2500, L100.0100, L700.8000 ####[facility] [address] [place], [address] CNPNon 03-13-2024 CNPN Normal [facility] CNOVon 03-09-2024 CNOV Normal [facility] SURGICAL PATHOLOGYon 024 CASE REPORT Normal [facility] Comment on above: Order Comment: Speci men Type: TISSUE SPECIMENOrdering Facility: [facility] Address: [address] [place] [address] Result Comment: Surg ical Pathology Report Case: [id number] Provider: Mary Kumar APRN.UI ARCHITECT Collected: 03/09/2024 11:11 AMOrdering Location: OB/Gynecology Received: 03/09/2024 12:22 PMPathologist: Natalie Bird MDSpecimen: Endometrium, Biopsy Performed By: #### S ####[facility] LABCLIA [id number] [place] [address] [place] CLINICAL HISTORY Abnormal uterine bleeding Normal [facility] Comment on above: Order Comment: Speci men Type: TISSUE SPECIMENOrdering Facility: [facility] Address: [address] [place] [address] Performed By: #### S ####[facility] LABCLIA [id number] [place] [address] [place] FINAL DIAGNOSIS Normal [facility] Comment on above: Order Comment: Speci men Type: TISSUE SPECIMENOrdering Facility: [facility] Address: [address] [place] [address] Result Comment: Saeid Franco terus, endometrium, biopsy-Late secretory endometrium Performed By: #### S ####[facility] LABCLIA [id number] [place] [address] [place] FINAL PERFORMING LAB Normal [facility] Comment on above: Order Comment: Speci men Type: TISSUE SPECIMENOrdering Facility: [facility] Address: [address] [place] [address] Result Comment: Diag nostic interpretation performed at [facility], [address] [place] [address] CLIA# [id number] Director: Bora Caceres M.D. Performed By: #### S ####[facility] LABCLIA [id number] [place] [address] [place] GROSS DESCRIPTION Normal [facility] Comment on above: Order Comment: Speci men Type: TISSUE SPECIMENOrdering Facility: [facility] Address: [address] [place] [address] Result Comment: A. E ndometrium, BiopsyReceived in formalin are multiple cisse and red-brown, soft feathery segments of tissue aggregating to 2.7 x 2.3 x 0.5 cm. Totally submitted in one cassette.SS March 09, 2024 7:30 PMGross examination performed at [facility], [address] [place] [address] Performed By: #### S ####[facility] LABIA [id number] [place] [address] [place] CNPNon 02-29-2024 CNPN Normal [facility] 25(OH)D3 SerPl-mCncon 2023 25-hydroxyvitamin D3 [Mass/Vol] 23.0 ng/mL Low 31.0-80.0 [facility] Comment on above: Order Comment: Speci men Type: BLOOD SPECIMENOrdering Facility: [facility] Address: [address] [place] [address] Result Comment: Clas sification of 25 [place] Vitamin D status:Deficiency/Insufficiency: < or = 30 ng/ml.Sufficiency/Optimal Levels: 31-80 ng/mLToxicity: > 100 ng/mL.Test performed by chemiluminescent immunoassay. Performed By: #### 1 989-3 ####[facility] LABIA [id number] [place] [address] [place] 25-hydroxyvitamin D3 [Mass/V ol]on 02-24-2024 Interpretation and review of laboratory results Abnormal [facility] The reference range interval was based on an analysis of samples from healthy adults and may not pertain to children from 0-18 years old. [facility] CNOVon 02-24-2024 CNOV Normal [facility] HbA1c (Bld)on 02-24-2024 Average glucose Estimated from glycated hemoglobin (Bld) [Mass/Vol] 97 mg/dL [facility] Comment on above: eAG: (Estimated aver age glucose) is a calculated value from HgbA1c and is energy conservation representative of the average blood glucose level in the last 2-3 month period. HbA1c (Bld) [Mass fraction] 5.0 % 4.3 - 5.6 % [facility] Comment on above: [place] Diabetes As sociation guidelines indicate that patients with HgbA1c in the range 5.7-6.4% are at increased risk for development of diabetes, and intervention by lifestyle modification may be beneficial. HgbA1c greater or equal to 6.5% is considered diagnostic of diabetes. [facility] Average glucose Estimated from glycated hemoglobin (Bld) [Mass/Vol] 97 mg/dL Normal [facility] Comment on above: Order Comment: Sultana mondragon Type: BLOOD SPECIMENOrdering Facility: [facility] Address: [address] [place] [address] Result Comment: eAG: (Estimated average glucose) is a calculated value from HgbA1c and is energy conservation representative of the average blood glucose level in the last 2-3 month period. Performed By: #### 5 5454-3 ####[facility] LABCLIA [id number] [place] [address] [place] HbA1c (Bld) [Mass fraction] 5.0 % Normal 4.3-5.6 [facility] Comment on above: Order Comment: Sultana mondragon Type: BLOOD SPECIMENOrdering Facility: [facility] Address: [address] [place] [address] Result Comment: [place] Diabetes Association guidelines indicate that patients with HgbA1c in the range 5.7-6.4% are at increased risk for development of diabetes, and intervention by lifestyle modification may be beneficial. HgbA1c greater or equal to 6.5% is considered diagnostic of diabetes. Performed By: #### 5 5454-3 ####[facility] LABCLIA [id number] [place] [address] [place] INSULIN ASSAY BLOODon 2023 Insulin Qn 41.9 u[IU]/mL High 3.0 - 25.0 mU/L [facility] Insulin Qnon 02-24-2024 Interpretation and review of laboratory results Abnormal [facility] Insulin SerPl-aCncon 024 Insulin Qn 41.9 u[IU]/mL High 3.0-25.0 [facility] Comment on above: Order Comment: Speci men Type: BLOOD SPECIMENOrdering Facility: [facility] Address: [address] [place] [address] Performed By: #### 2 0448-7 ####[facility] LABCLIA [id number] ADEBAY[place] [address] [place] Lipid 1996 panelon 4 Cholesterol [Mass/Vol] 229 mg/dL High NINF - 200 mg/dL [facility] Comment on above: <200 mg/dL, Desirabl e 200-239 mg/dL, Borderline high >239 mg/dL, High Cholesterol in HDL [Mass/Vol] 41 mg/dL 39 - PINF mg/dL [facility] Comment on above: 40-59 mg/dL, Accepta ble >59 mg/dL, High: Negative risk factor for coronary heart disease <40 mg/dL, Low: Positive risk factor for coronary heart disease Cholesterol in LDL [Mass/Vol] 142 mg/dL High NINF - 100 mg/dL [facility] Comment on above: <100 mg/dL, Optimal 100-129 mg/dL, Near optimal/above optimal 130-159 mg/dL, Borderline high 160-189 mg/dL, High >189 mg/dL, Very high Secondary prevention optimal LDL Cholesterol levels are recommended to be < 70 mg/dL Cholesterol in LDL/Cholesterol in HDL [Mass ratio] 3.46 {ratio} High NINF - 2.54 [facility] Comment on above: Reference: 1. National Cholesterol Education Program ATP III Guideline At-A-Glance Quick Desk Reference: National Heart, Lung, and Blood [place]. National Institutes of Health. 2001: NIH Publication No. 01-3305. 2. An International Atherosclerosis Society position paper: global recommendations for the management of dyslipidemia: executive summary, Atherosclerosis. 2014: 232(2):410-413. Cholesterol in VLDL [Mass/Vol] 46 mg/dL High NINF - 30 mg/dL [facility] Cholesterol non HDL [Mass/Vol] 188 mg/dL High NINF - 130 mg/dL [facility] Comment on above: <130 mg/dL, Optimal 130-159 mg/dL, Near optimal/above optimal 160-189 mg/dL, Borderline high 190-219 mg/dL, High >219 mg/dL, Very high Secondary prevention optimal non HDL Cholesterol levels are recommended to be <100 mg/dL Cholesterol.total/Cho lesterol in HDL [Mass ratio] 5.59 {ratio} High NINF - 5.10 [facility] Fasting Time 12 hrs [facility] Interpretation and review of laboratory results Abnormal [facility] Triglyceride [Mass/Vol] 229 mg/dL High NINF - 150 mg/dL [facility] Comment on above: <150 mg/dL, Normal 150-199 mg/dL, Borderline high 200-499 mg/dL, High >499 mg/dL, Very high [facility] Cholesterol [Mass/Vol] 229 mg/dL High <200 [facility] Comment on above: Order Comment: Speci men Type: BLOOD SPECIMENOrdering Facility: [facility] Address: [address] [place] [address] Result Comment: <200 mg/dL, Desirable 200-239 mg/dL, Borderline high>239 mg/dL, High Performed By: #### 2 4331-1 ####[facility] LABCLIA [id number] [address] [id number] [place] [address] [place] Cholesterol in HDL [Mass/Vol] 41 mg/dL Normal >39 [facility] Comment on above: Order Comment: Speci men Type: BLOOD SPECIMENOrdering Facility: [facility] Address: [address] [place] [address] Result Comment: 40-5 9 mg/dL, Acceptable>59 mg/dL, High: Negative risk factor for coronary heart disease<40 mg/dL, Low: Positive risk factor for coronary heart disease Performed By: #### 2 4331-1 ####[facility] LABCLIA [id number] [address] [id number] [place] [address] [place] Cholesterol in LDL [Mass/Vol] 142 mg/dL High <100 [facility] Comment on above: Order Comment: Speci men Type: BLOOD SPECIMENOrdering Facility: [facility] Address: [address] [place] [address] Result Comment: <100 mg/dL, Optimal 100-129 mg/dL, Near optimal/above optimal 130-159 mg/dL, Borderline high 160-189 mg/dL, High>189 mg/dL, Very highSecondary prevention optimal LDL Cholesterol levels are recommended to be < 70 mg/dL Performed By: #### 2 4331-1 ####[facility] LABIA [id number] [address] [id number] [place] [address] [place] Cholesterol in LDL/Cholesterol in HDL [Mass ratio] 3.46 {ratio} High <2.54 [facility] Comment on above: Order Comment: Speci men Type: BLOOD SPECIMENOrdering Facility: [facility] Address: [address] [place] [address] Result Comment: Teresa rubio:1. National Cholesterol Education Program ATP III Guideline At-A-Glance Quick Desk Reference: National Heart, Lung, and Blood [place]. National Institutes of Health. 2001: NIH Publication No. 01-3305.2. An International Atherosclerosis Society position paper: global recommendations for the management of dyslipidemia: executive summary, Atherosclerosis. 2014: 232(2):410-413. Performed By: #### 2 4331-1 ####[facility] LABIA [id number] [address] [id number] [place] [address] [place] Cholesterol in VLDL [Mass/Vol] 46 mg/dL High <30 [facility] Comment on above: Order Comment: Speci men Type: BLOOD SPECIMENOrdering Facility: [facility] Address: [address] [place] [address] Performed By: #### 2 4331-1 ####[facility] LABCLIA [id number] [address] [id number] [place] [address] [place] Cholesterol non HDL [Mass/Vol] 188 mg/dL High <130 [facility] Comment on above: Order Comment: Speci men Type: BLOOD SPECIMENOrdering Facility: [facility] Address: [address] [place] [address] Result Comment: <130 mg/dL, Optimal 130-159 mg/dL, Near optimal/above optimal 160-189 mg/dL, Borderline high 190-219 mg/dL, High>219 mg/dL, Very highSecondary prevention optimal non HDL Cholesterol levels are recommended to be <100 mg/dL Performed By: #### 2 4331-1 ####[facility] LABCLIA [id number] [id number] [place] [address] [place] Cholesterol.total/Cho lesterol in HDL [Mass ratio] 5.59 {ratio} High <5.10 [facility] Comment on above: Order Comment: Speci men Type: BLOOD SPECIMENOrdering Facility: [facility] Address: [address] [place] [address] Performed By: #### 2 4331-1 ####[facility] LABCLIA [id number] [address] [id number] [place] [address] [place] FASTING TIME 12 hrs Normal [facility] Comment on above: Order Comment: Speci men Type: BLOOD SPECIMENOrdering Facility: [facility] Address: [address] [place] [address] Performed By: #### 2 4331-1 ####[facility] LABCLIA [id number] [address] [id number] [place] [address] [place] Triglyceride [Mass/Vol] 229 mg/dL High <150 [facility] Comment on above: Order Comment: Speci men Type: BLOOD SPECIMENOrdering Facility: [facility] Address: [address] [place] [address] Result Comment: <150 mg/dL, Normal 150-199 mg/dL, Borderline high 200-499 mg/dL, High>499 mg/dL, Very high Performed By: #### 2 4331-1 ####[facility] LABCLIA [id number] [address] [id number] [place] [address] [place] VITAMIN D 25 HYDROXYon 02-23 25-hydroxyvitamin D3 [Mass/Vol] 23.0 ng/mL Low 31.0 - 80.0 ng/mL [facility] Comment on above: Classification of 25 [place] Vitamin D status: Deficiency/Insufficiency: < or = 30 ng/ml. Sufficiency/Optimal Levels: 31-80 ng/mL Toxicity: > 100 ng/mL. Test performed by chemiluminescent immunoassay. CNOVSPon 02-20-2024 CNOVSP Normal [facility] CNOVSPon 02-16-2024 CNOVSP Normal [facility] CNOVSPon 02-13-2024 CNOVSP Normal [facility] CNOVSPon 02-10-2024 CNOVSP Normal [facility] CNOVSPon 02-07-2024 CNOVSP Normal [facility] CNOVon 01-28-2024 CNOV Normal [facility] CNOVon 01-25-2024 CNOV Normal [facility] CNPNon 01-25-2024 CNPN Normal [facility] CBC W Auto Differential pane l (Bld)on 01-19-2024 Basophils (Bld) [#/Vol] 0.07 10*3/uL Normal <0.11 [facility] Comment on above: Order Comment: Speci men Type: BLOOD SPECIMENOrdering Facility: [facility] Address: [address] [place] [address] Performed By: #### 5 7021-8 ####[facility]ALLIA [id number] [place] [address] [place] Basophils/100 WBC (Bld) 0.7 % Normal [facility] Comment on above: Order Comment: Speci men Type: BLOOD SPECIMENOrdering Facility: [facility] Address: [address] [place] [address] Performed By: #### 5 7021-8 ####[facility] [id number] [place] [address] [place] Differential cell count method Nom (Bld) Auto Normal [facility] Comment on above: Order Comment: Speci men Type: BLOOD SPECIMENOrdering Facility: [facility] Address: [address] [place] [address] Performed By: #### 5 7021-8 ####[facility] [id number] [place] [address] [place] Eosinophils (Bld) [#/Vol] 0.52 10*3/uL High <0.46 [facility] Comment on above: Order Comment: Speci men Type: BLOOD SPECIMENOrdering Facility: [facility] Address: [address] [place] [address] Performed By: #### 5 7021-8 ####[facility] [id number] [place] [address] [place] Eosinophils/100 WBC (Bld) 5.4 % Normal [facility] Comment on above: Order Comment: Speci men Type: BLOOD SPECIMENOrdering Facility: [facility] Address: [address] [place] [address] Performed By: #### 5 7021-8 ####[facility]ALL[facility] [id number] [place] [address] [place] Erythrocyte distribution width (RBC) [Ratio] 14.5 % Normal 11.5-15.0 [facility] Comment on above: Order Comment: Speci men Type: BLOOD SPECIMENOrdering Facility: [facility] Address: [address] [place] [address] Performed By: #### 5 7021-8 ####[facility] [id number] [place] [address] [place] Hematocrit (Bld) [Volume fraction] 43.8 % Normal 36.0-46.0 [facility] Comment on above: Order Comment: Speci men Type: BLOOD SPECIMENOrdering Facility: [facility] Address: [address] [place] [address] Performed By: #### 5 7021-8 ####[facility] [id number] [place] [address] [place] Hemoglobin (Bld) [Mass/Vol] 13.7 g/dL Normal 11.5-15.5 [facility] Comment on above: Order Comment: Speci men Type: BLOOD SPECIMENOrdering Facility: [facility] Address: [address] [place] [address] Performed By: #### 5 7021-8 ####[facility] [id number] [place] [address] [place] Immature granulocytes (Bld) [#/Vol] 10*3/uL Normal <0.10 [facility] Comment on above: Order Comment: Speci men Type: BLOOD SPECIMENOrdering Facility: [facility] Address: [address] [place] [address] Performed By: #### 5 7021-8 ####[facility] [id number] [place] [address] [place] Immature granulocytes/100 WBC (Bld) 0.2 % Normal [facility] Comment on above: Order Comment: Speci men Type: BLOOD SPECIMENOrdering Facility: [facility] Address: [address] [place] [address] Performed By: #### 5 7021-8 ####[facility] [id number] [place] [address] [place] Lymphocytes (Bld) [#/Vol] 2.39 10*3/uL Normal 1.00-4.00 [facility] Comment on above: Order Comment: Speci men Type: BLOOD SPECIMENOrdering Facility: [facility] Address: [address] [place] [address] Performed By: #### 5 7021-8 ####[facility] [id number] [place] [address] [place] Lymphocytes/100 WBC (Bld) 24.7 % Normal [facility] Comment on above: Order Comment: Speci men Type: BLOOD SPECIMENOrdering Facility: [facility] Address: [address] [place] [address] Performed By: #### 5 7021-8 ####[facility]ITALNCLI [id number] [place] [address] [place] MCH (RBC) [Entitic mass] 25.8 pg Low 26.0-34.0 [facility] Comment on above: Order Comment: Speci men Type: BLOOD SPECIMENOrdering Facility: [facility] Address: [address] [place] [address] Performed By: #### 5 7021-8 ####[facility]ITALNCLIA [id number] [place] [address] [place] MCHC (RBC) [Mass/Vol] 31.3 g/dL Normal 30.5-36.0 [facility] Comment on above: Order Comment: Speci men Type: BLOOD SPECIMENOrdering Facility: [facility] Address: [address] [place] [address] Performed By: #### 5 7021-8 ####[facility] ELIANEBasilioNCERIC [id number] [place] [address] [place] MCV (RBC) [Entitic vol] 82.5 fL Normal 80.0-100.0 [facility] Comment on above: Order Comment: Speci men Type: BLOOD SPECIMENOrdering Facility: [facility] Address: [address] [place] [address] Performed By: #### 5 7021-8 ####[facility]PITALNCERIC [id number] [place] [address] [place] Monocytes (Bld) [#/Vol] 0.67 10*3/uL Normal <0.87 [facility] Comment on above: Order Comment: Speci men Type: BLOOD SPECIMENOrdering Facility: [facility] Address: [address] [place] [address] Performed By: #### 5 7021-8 ####[facility]ITALNCLIA [id number] [place] [address] [place] Monocytes/100 WBC (Bld) 6.9 % Normal [facility] Comment on above: Order Comment: Speci men Type: BLOOD SPECIMENOrdering Facility: [facility] Address: [address] [place] [address] Performed By: #### 5 7021-8 ####[facility]ITALNCLIA [id number] [place] [address] [place] Neutrophils (Bld) [#/Vol] 6.01 10*3/uL Normal 1.45-7.50 [facility] Comment on above: Order Comment: Speci men Type: BLOOD SPECIMENOrdering Facility: [facility] Address: [address] [place] [address] Performed By: #### 5 7021-8 ####[facility] ELIANEWERICKLIA [id number] [place] [address] [place] Neutrophils/100 WBC (Bld) 62.1 % Normal [facility] Comment on above: Order Comment: Speci men Type: BLOOD SPECIMENOrdering Facility: [facility] Address: [address] [place] [address] Performed By: #### 5 7021-8 ####[facility] HOSPITALERICKLIA [id number] [place] [address] [place] Nucleated RBC (Bld) [#/Vol] 10*3/uL Normal <0.01 [facility] Comment on above: Order Comment: Speci men Type: BLOOD SPECIMENOrdering Facility: [facility] Address: [address] [place] [address] Performed By: #### 5 7021-8 ####[facility] [id number] [place] [address] [place] Nucleated RBC/100 WBC (Bld) [Ratio] 0.0 /100 WBC Normal [facility] Comment on above: Order Comment: Speci men Type: BLOOD SPECIMENOrdering Facility: [facility] Address: [address] [place] [address] Performed By: #### 5 7021-8 ####[facility]ITALLIA [id number] [place] [address] [place] Platelet mean volume (Bld) [Entitic vol] 9.6 fL Normal 9.0-12.7 [facility] Comment on above: Order Comment: Speci men Type: BLOOD SPECIMENOrdering Facility: [facility] Address: [address] [place] [address] Performed By: #### 5 7021-8 ####[facility]ALLIA [id number] [place] [address] [place] Platelets (Bld) [#/Vol] 474 10*3/uL High 150-400 [facility] Comment on above: Order Comment: Speci men Type: BLOOD SPECIMENOrdering Facility: [facility] Address: [address] [place] [address] Performed By: #### 5 7021-8 ####[facility] HOSPITALOUMOU [id number] [place] [address] [place] RBC (Bld) [#/Vol] 5.31 10*6/uL High 3.90-5.20 [facility] Comment on above: Order Comment: Speci men Type: BLOOD SPECIMENOrdering Facility: [facility] Address: [address] [place] [address] Performed By: #### 5 7021-8 ####[facility] HOSPITALERICKA [id number] [place] [address] [place] WBC (Bld) [#/Vol] 9.68 10*3/uL Normal 3.70-11.00 [facility] Comment on above: Order Comment: Speci men Type: BLOOD SPECIMENOrdering Facility: [facility] Address: [address] [place] [address] Performed By: #### 5 7021-8 ####[facility] HOSPITALERICKLIA [id number] [place] [address] [place] CNOVSPon 01-19-2024 CNOVSP Normal [facility] Ferritin SerPl-mCncon 2023 Ferritin [Mass/Vol] 85.4 ng/mL Normal 14.7-205.1 [facility] Comment on above: Order Comment: Speci men Type: BLOOD SPECIMENOrdering Facility: [facility] Address: [address] [place] [address] Performed By: #### 2 276-4, 37307-7 ####[facility] LABCLIA [id number] [place] [address] [place] Iron and Iron binding capaci ty panelon 01-19-2024 Iron [Mass/Vol] 37 ug/dL Low 41-186 [facility] Comment on above: Order Comment: Speci men Type: BLOOD SPECIMENOrdering Facility: [facility] Address: [address] [place] [address] Performed By: #### 2 276-4, 41125-0 ####[facility] LABIA [id number] [place] [address] [place] Iron binding capacity [Mass/Vol] 329 ug/dL Normal 232-386 [facility] Comment on above: Order Comment: Speci men Type: BLOOD SPECIMENOrdering Facility: [facility] Address: [address] [place] [address] Performed By: #### 2 276-4, 86203-8 ####[facility] LABCLIA [id number] [place] [address] [place] Iron/TIBC [Molar ratio] 11.2 % Low 15.0-57.0 [facility] Comment on above: Order Comment: Speci men Type: BLOOD SPECIMENOrdering Facility: [facility] Address: [address] [place] [address] Performed By: #### 2 276-4, 67603-3 ####[facility] LABIA [id number] [place] [address] [place] CBC panel Auto (Bld)on 01-01 Erythrocyte distribution width (RBC) [Ratio] 14.6 % 11.5 - 15.0 % [facility] Hematocrit (Bld) [Volume fraction] 39.3 % 36.0 - 46.0 % [facility] Hemoglobin (Bld) [Mass/Vol] 12.6 g/dL 11.5 - 15.5 g/dL [facility] Interpretation and review of laboratory results Abnormal [facility] MCH (RBC) [Entitic mass] 25.9 pg Low 26.0 - 34.0 pg [facility] MCHC (RBC) [Mass/Vol] 32.1 g/dL 30.5 - 36.0 g/dL [facility] MCV (RBC) [Entitic vol] 80.7 fL 80.0 - 100.0 fL [facility] Nucleated RBC (Bld) [#/Vol] NINF [facility] Platelet mean volume (Bld) [Entitic vol] 9.8 fL 9.0 - 12.7 fL [facility] Platelets (Bld) [#/Vol] 409 10*3/uL High [facility] RBC (Bld) [#/Vol] 4.87 10*6/uL 3.90 - 5.2 0 m/uL [facility] WBC (Bld) [#/Vol] 9.65 10*3/uL [facility] Erythrocyte distribution width (RBC) [Ratio] 14.6 % Normal 11.5-15.0 [facility] Comment on above: Order Comment: Speci men Type: BLOOD SPECIMENOrdering Facility: [facility] Address: [address] [place] [address] Performed By: #### 5 8410-2 ####[facility] [id number] [place] [address] [place] [facility] Hematocrit (Bld) [Volume fraction] 39.3 % Normal 36.0-46.0 [facility] Comment on above: Order Comment: Speci men Type: BLOOD SPECIMENOrdering Facility: [facility] Address: [address] [place] [address] Performed By: #### 5 8410-2 ####[facility]ITALLIA [id number] [place] [address] [place] Hemoglobin (Bld) [Mass/Vol] 12.6 g/dL Normal 11.5-15.5 [facility] Comment on above: Order Comment: Speci men Type: BLOOD SPECIMENOrdering Facility: [facility] Address: [address] [place] [address] Performed By: #### 5 8410-2 ####[facility]ALL[facility] [id number] [place] [address] [place] MCH (RBC) [Entitic mass] 25.9 pg Low 26.0-34.0 [facility] Comment on above: Order Comment: Speci men Type: BLOOD SPECIMENOrdering Facility: [facility] Address: [address] [place] [address] Performed By: #### 5 8410-2 ####[facility] [id number] [place] [address] [place] MCHC (RBC) [Mass/Vol] 32.1 g/dL Normal 30.5-36.0 [facility] Comment on above: Order Comment: Speci men Type: BLOOD SPECIMENOrdering Facility: [facility] Address: [address] [place] [address] Performed By: #### 5 8410-2 ####[facility] [id number] [place] [address] [place] MCV (RBC) [Entitic vol] 80.7 fL Normal 80.0-100.0 [facility] Comment on above: Order Comment: Speci men Type: BLOOD SPECIMENOrdering Facility: [facility] Address: [address] [place] [address] Performed By: #### 5 8410-2 ####[facility]ITALNCLI [id number] [place] [address] [place] Nucleated RBC (Bld) [#/Vol] 10*3/uL Normal <0.01 [facility] Comment on above: Order Comment: Speci men Type: BLOOD SPECIMENOrdering Facility: [facility] Address: [address] [place] [address] Performed By: #### 5 8410-2 ####[facility]ITALNCLIA [id number] [place] [address] [place] Platelet mean volume (Bld) [Entitic vol] 9.8 fL Normal 9.0-12.7 [facility] Comment on above: Order Comment: Speci men Type: BLOOD SPECIMENOrdering Facility: [facility] Address: [address] [place] [address] Performed By: #### 5 8410-2 ####[facility] [id number] [place] [address] [place] Platelets (Bld) [#/Vol] 409 10*3/uL High 150-400 [facility] Comment on above: Order Comment: Speci men Type: BLOOD SPECIMENOrdering Facility: [facility] Address: [address] [place] [address] Performed By: #### 5 8410-2 ####[facility] [id number] [place] [address] [place] RBC (Bld) [#/Vol] 4.87 10*6/uL Normal 3.90-5.20 [facility] Comment on above: Order Comment: Speci men Type: BLOOD SPECIMENOrdering Facility: [facility] Address: [address] [place] [address] Performed By: #### 5 8410-2 ####[facility]ENTERA [id number] [place] [address] [place] WBC (Bld) [#/Vol] 9.65 10*3/uL Normal 3.70-11.00 [facility] Comment on above: Order Comment: Speci men Type: BLOOD SPECIMENOrdering Facility: [facility] Address: [address] [place] [address] Performed By: #### 5 8410-2 ####[facility]ITALNCL[facility] [id number] [place] [address] [place] CNOVon 01-02-2024 CNOV Normal [facility] Iron and Iron binding capaci ty panelon 01-02-2024 Iron [Mass/Vol] 72 ug/dL Normal 41-186 [facility] Comment on above: Order Comment: Speci men Type: BLOOD SPECIMENOrdering Facility: [facility] Address: [address] [place] [address] Performed By: #### 5 0190-8 ####[facility] LABCLIA [id number] [place] [address] [place] Iron binding capacity [Mass/Vol] 305 ug/dL Normal 232-386 [facility] Comment on above: Order Comment: Speci men Type: BLOOD SPECIMENOrdering Facility: [facility] Address: [address] [place] [address] Performed By: #### 5 0190-8 ####[facility] LABIA [id number] [place] [address] [place] Iron/TIBC [Molar ratio] 23.6 % Normal 15.0-57.0 [facility] Comment on above: Order Comment: Speci men Type: BLOOD SPECIMENOrdering Facility: [facility] Address: [address] [place] [address] Performed By: #### 5 0190-8 ####[facility] LABIA [id number] [place] [address] [place] CNOVon 12-26-2023 CNOV Normal [facility] CNPNon 12-07-2023 CNPN Normal [facility] CNOVon 12-06-2023 CNOV Normal [facility] CNOVSPon 11-30-2023 CNOVSP Normal [facility] CNPNon 11-29-2023 CNPN Normal [facility] CNOVSPon 11-28-2023 CNOVSP Normal [facility] CNPNon 11-28-2023 CNPN Normal [facility] Basic metabolic 2000 panelon 11-25-2023 Anion gap [Moles/Vol] 12 mmol/L Normal 8-15 [facility] Comment on above: Order Comment: Speci men Type: BLOOD SPECIMENOrdering Facility: [facility] Address: [address] [place] [address] Performed By: #### 3 016-3, 81677-4, ####[facility] LABCLIA [id number] [place] [address] [place] Calcium [Mass/Vol] 9.9 mg/dL Normal 8.5-10.2 [facility] Comment on above: Order Comment: Speci men Type: BLOOD SPECIMENOrdering Facility: [facility] Address: [address] [place] [address] Performed By: #### 3 016-3, 84207-3, ####[facility] LABCLIA [id number] [place] [address] [place] Chloride [Moles/Vol] 102 mmol/L Normal 98-107 [facility] Comment on above: Order Comment: Speci men Type: BLOOD SPECIMENOrdering Facility: [facility] Address: [address] [place] [address] Performed By: #### 3 016-3, 07422-2, ####[facility] LABCLIA [id number] [place] [address] [place] CO2 [Moles/Vol] 24 mmol/L Normal 22-30 [facility] Comment on above: Order Comment: Speci men Type: BLOOD SPECIMENOrdering Facility: [facility] Address: [address] [place] [address] Performed By: #### 3 016-3, 24481-7, ####[facility] LABCLIA [id number] [place] [id number] [place] Creatinine [Mass/Vol] 0.67 mg/dL Normal 0.58-0.96 [facility] Comment on above: Order Comment: Speci men Type: BLOOD SPECIMENOrdering Facility: [facility] Address: [address] [place] [address] Performed By: #### 3 016-3, 78820-9, ####[facility] LABCLIA [id number] [place] [address] [place] Creatinine and Glomerular filtration rate.predicted panel (S/P/Bld) 119 mL/min/1.73m??? Normal >=60 [facility] Comment on above: Order Comment: Sultana mondragon Type: BLOOD SPECIMENOrdering Facility: [facility] Address: [address] [place] [address] Result Comment: Maria G mated Glomerular Filtration Rate (eGFR) is calculated using the 2020 CKD-EPI creatinine equation. This equation utilizes serum creatinine, sex, and age as parameters. The creatinine assay has traceable calibration to isotope dilution-mass spectrometry. Refer to KDIGO guidelines for clinical interpretation. In patients with unstable renal function, e.g. those with acute kidney injury, the eGFR may not accurately reflect actual GFR. Performed By: #### 3 016-3, 22041-9, ####[facility] LABCLIA [id number] [place] [address] [place] Glucose [Mass/Vol] 91 mg/dL Normal 74-99 [facility] Comment on above: Order Comment: Sultana mondragon Type: BLOOD SPECIMENOrdering Facility: [facility] Address: [address] [place] [address] Result Comment: The [place] [employer] (ADA) provides guidance for cutoff values for fasting glucose and random glucose. The ADA defines fasting as no caloric intake for at least 8 hours. Fasting plasma glucose results between 100 to 125 mg/dL indicate increased risk for diabetes (prediabetes).Fasting plasma glucose results greater than or equal to 126 mg/dL meet the criteria for diagnosis of diabetes. In the absence of unequivocal hyperglycemia, results should be confirmed by repeat testing. In a patient with classic symptoms of hyperglycemia or hyperglycemic crisis, random plasma glucose results greater than or equal to 200 mg/dL meet the criteria for diagnosis of diabetes.Reference: Standards of Medical Care in Diabetes 2016, [place] Diabetes Association. Diabetes Care. 2016.39(Suppl 1). Performed By: #### 3 016-3, , ####[facility] LABCLIA [id number] [address] [address] [place] Potassium [Moles/Vol] 4.4 mmol/L Normal 3.7-5.1 [facility] Comment on above: Order Comment: Speci men Type: BLOOD SPECIMENOrdering Facility: [facility] Address: [address] [place] [address] Performed By: #### 3 016-3, 53482-3, ####[facility] LABCLIA [id number] [place] [address] [place] Sodium [Moles/Vol] 138 mmol/L Normal 136-144 [facility] Comment on above: Order Comment: Speci men Type: BLOOD SPECIMENOrdering Facility: [facility] Address: [address] [place] [address] Performed By: #### 3 016-3, , ####[facility] LABIA [id number] [place] [address] [place] Urea nitrogen [Mass/Vol] 8 mg/dL Normal 7-21 [facility] Comment on above: Order Comment: Speci men Type: BLOOD SPECIMENOrdering Facility: [facility] Address: [address] [place] [address] Performed By: #### 3 016-3, 98562-1, ####[facility] LABIA [id number] [place] [id number] [place] CBC W Auto Differential pane l (Bld)on 11-25-2023 Basophils (Bld) [#/Vol] 0.06 10*3/uL Normal <0.11 [facility] Comment on above: Order Comment: Speci men Type: BLOOD SPECIMENOrdering Facility: [facility] Address: [address] [place] [address] Performed By: #### 5 7021-8 ####[facility] LABCLIA [id number] [place] [address] [place] Basophils/100 WBC (Bld) 0.6 % Normal [facility] Comment on above: Order Comment: Speci men Type: BLOOD SPECIMENOrdering Facility: [facility] Address: [address] [place] [address] Performed By: #### 5 7021-8 ####[facility] LABCLIA [id number] [place] [address] [place] Differential cell count method Nom (Bld) Auto Normal [facility] Comment on above: Order Comment: Speci men Type: BLOOD SPECIMENOrdering Facility: [facility] Address: [address] [place] [address] Performed By: #### 5 7021-8 ####[facility] LABCLIA [id number] [place] [address] [place] Eosinophils (Bld) [#/Vol] 0.41 10*3/uL Normal <0.46 [facility] Comment on above: Order Comment: Speci men Type: BLOOD SPECIMENOrdering Facility: [facility] Address: [address] [place] [address] Performed By: #### 5 7021-8 ####[facility] LABCLIA [id number] [place] [address] [place] Eosinophils/100 WBC (Bld) 4.1 % Normal [facility] Comment on above: Order Comment: Speci men Type: BLOOD SPECIMENOrdering Facility: [facility] Address: [address] [place] [address] Performed By: #### 5 7021-8 ####[facility] LABCLIA [id number] [place] [address] [place] Erythrocyte distribution width (RBC) [Ratio] 13.6 % Normal 11.5-15.0 [facility] Comment on above: Order Comment: Speci men Type: BLOOD SPECIMENOrdering Facility: [facility] Address: [address] [place] [address] Performed By: #### 5 7021-8 ####[facility] LABCLIA [id number] [place] [address] [place] Hematocrit (Bld) [Volume fraction] 40.6 % Normal 36.0-46.0 [facility] Comment on above: Order Comment: Speci men Type: BLOOD SPECIMENOrdering Facility: [facility] Address: [address] [place] [address] Performed By: #### 5 7021-8 ####[facility] LABCLIA [id number] [place] [address] [place] Hemoglobin (Bld) [Mass/Vol] 12.8 g/dL Normal 11.5-15.5 [facility] Comment on above: Order Comment: Speci men Type: BLOOD SPECIMENOrdering Facility: [facility] Address: [address] [place] [address] Performed By: #### 5 7021-8 ####[facility] LABCLIA [id number] [place] [address] [place] Immature granulocytes (Bld) [#/Vol] 0.08 10*3/uL Normal <0.10 [facility] Comment on above: Order Comment: Speci men Type: BLOOD SPECIMENOrdering Facility: [facility] Address: [address] [place] [address] Performed By: #### 5 7021-8 ####[facility] LABCLIA [id number] [place] [address] [place] Immature granulocytes/100 WBC (Bld) 0.8 % Normal [facility] Comment on above: Order Comment: Speci men Type: BLOOD SPECIMENOrdering Facility: [facility] Address: [address] [place] [address] Performed By: #### 5 7021-8 ####[facility] LABCLIA [id number] [place] [address] [place] Lymphocytes (Bld) [#/Vol] 1.93 10*3/uL Normal 1.00-4.00 [facility] Comment on above: Order Comment: Speci men Type: BLOOD SPECIMENOrdering Facility: [facility] Address: [address] [place] [address] Performed By: #### 5 7021-8 ####[facility] LABCLIA [id number] [place] [address] [place] Lymphocytes/100 WBC (Bld) 19.2 % Normal [facility] Comment on above: Order Comment: Speci men Type: BLOOD SPECIMENOrdering Facility: [facility] Address: [address] [place] [address] Performed By: #### 5 7021-8 ####[facility] LABCLIA [id number] [place] [address] [place] MCH (RBC) [Entitic mass] 26.1 pg Normal 26.0-34.0 [facility] Comment on above: Order Comment: Speci men Type: BLOOD SPECIMENOrdering Facility: [facility] Address: [address] [place] [address] Performed By: #### 5 7021-8 ####[facility] LABCLIA [id number] [place] [address] [place] MCHC (RBC) [Mass/Vol] 31.5 g/dL Normal 30.5-36.0 [facility] Comment on above: Order Comment: Speci men Type: BLOOD SPECIMENOrdering Facility: [facility] Address: [address] [place] [address] Performed By: #### 5 7021-8 ####[facility] LABCLIA [id number] [place] [address] [place] MCV (RBC) [Entitic vol] 82.9 fL Normal 80.0-100.0 [facility] Comment on above: Order Comment: Speci men Type: BLOOD SPECIMENOrdering Facility: [facility] Address: [address] [place] [address] Performed By: #### 5 7021-8 ####[facility] LABCLIA [id number] [address] [address] [place] Monocytes (Bld) [#/Vol] 0.94 10*3/uL High <0.87 [facility] Comment on above: Order Comment: Speci men Type: BLOOD SPECIMENOrdering Facility: [facility] Address: [address] [place] [address] Performed By: #### 5 7021-8 ####[facility] LABCLIA [id number] [place] [address] [place] Monocytes/100 WBC (Bld) 9.3 % Normal [facility] Comment on above: Order Comment: Speci men Type: BLOOD SPECIMENOrdering Facility: [facility] Address: [address] [place] [address] Performed By: #### 5 7021-8 ####[facility] LABCLIA [id number] [place] [address] [place] Neutrophils (Bld) [#/Vol] 6.64 10*3/uL Normal 1.45-7.50 [facility] Comment on above: Order Comment: Speci men Type: BLOOD SPECIMENOrdering Facility: [facility] Address: [address] [place] [address] Performed By: #### 5 7021-8 ####[facility] LABCLIA [id number] [place] [address] [place] Neutrophils/100 WBC (Bld) 66.0 % Normal [facility] Comment on above: Order Comment: Speci men Type: BLOOD SPECIMENOrdering Facility: [facility] Address: [address] [place] [address] Performed By: #### 5 7021-8 ####[facility] LABCLIA [id number] [place] [address] [place] Nucleated RBC (Bld) [#/Vol] 10*3/uL Normal <0.01 [facility] Comment on above: Order Comment: Speci men Type: BLOOD SPECIMENOrdering Facility: [facility] Address: [address] [place] [address] Performed By: #### 5 7021-8 ####[facility] LABCLIA [id number] [place] [address] [place] Nucleated RBC/100 WBC (Bld) [Ratio] 0.0 /100 WBC Normal [facility] Comment on above: Order Comment: Speci men Type: BLOOD SPECIMENOrdering Facility: [facility] Address: [address] [place] [address] Performed By: #### 5 7021-8 ####[facility] LABIA [id number] [place] [address] [place] Platelet mean volume (Bld) [Entitic vol] 10.2 fL Normal 9.0-12.7 [facility] Comment on above: Order Comment: Speci men Type: BLOOD SPECIMENOrdering Facility: [facility] Address: [address] [place] [address] Performed By: #### 5 7021-8 ####[facility] LABIA [id number] [place] [address] [place] Platelets (Bld) [#/Vol] 362 10*3/uL Normal 150-400 [facility] Comment on above: Order Comment: Speci men Type: BLOOD SPECIMENOrdering Facility: [facility] Address: [address] [place] [address] Performed By: #### 5 7021-8 ####[facility] LABCLIA [id number] [place] [address] [place] RBC (Bld) [#/Vol] 4.90 10*6/uL Normal 3.90-5.20 [facility] Comment on above: Order Comment: Speci men Type: BLOOD SPECIMENOrdering Facility: [facility] Address: [address] [place] [address] Performed By: #### 5 7021-8 ####[facility] LABCLIA [id number] [place] [address] [place] WBC (Bld) [#/Vol] 10.06 10*3/uL Normal 3.70-11.00 [facility] Comment on above: Order Comment: Speci men Type: BLOOD SPECIMENOrdering Facility: [facility] Address: [address] [place] [address] Performed By: #### 5 7021-8 ####[facility] LABIA [id number] [place] [address] [place] CNOVon 11-25-2023 CNOV Normal [facility] KOR95nk 11-25-2023 ECG01 Normal [facility] HbA1c (Bld)on 11-25-2023 Average glucose Estimated from glycated hemoglobin (Bld) [Mass/Vol] 120 mg/dL Normal [facility] Comment on above: Order Comment: Speci men Type: BLOOD SPECIMENOrdering Facility: [facility] Address: [address] [place] [address] Result Comment: eAG: (Estimated average glucose) is a calculated value from HgbA1c and is energy conservation representative of the average blood glucose level in the last 2-3 month period. Performed By: #### 5 5454-3 ####[facility] LABCLIA [id number] [place] [address] [place] HbA1c (Bld) [Mass fraction] 5.8 % High 4.3-5.6 [facility] Comment on above: Order Comment: Speci men Type: BLOOD SPECIMENOrdering Facility: [facility] Address: [address] [place] [address] Result Comment: [place] Diabetes Association guidelines indicate that patients with HgbA1c in the range 5.7-6.4% are at increased risk for development of diabetes, and intervention by lifestyle modification may be beneficial. HgbA1c greater or equal to 6.5% is considered diagnostic of diabetes. Performed By: #### 5 5454-3 ####[facility] LABCLIA [id number] [place] [address] [place] [facility] Magnesium SerPl-mCncon 11-24 Magnesium [Mass/Vol] 2.1 mg/dL Normal 1.7-2.3 [facility] Comment on above: Order Comment: Specradha mondragon Type: BLOOD SPECIMENOrdering Facility: [facility] Address: [address] [place] [address] Performed By: #### 3 016-3, 61323-2, ####[facility] [id number] [address] [place] TSH SerPl-aCncon 11-25-2023 TSH Qn 2.050 m[IU]/L Normal 0.270-4.200 [facility] Comment on above: Order Comment: Sultana mondragon Type: BLOOD SPECIMENOrdering Facility: [facility] Address: [address] [place] [address] Result Comment: If t he patient is , TSH reference range varies by gestational period:First Trimester (weeks 9-12): 0.180-2.990 mIU/LSecond Trimester: 0.110-3.980 mIU/LThird Trimester: 0.480-4.710 mIU/Marquez Marinelli et al. A Practical Approach for the Verifications and Determination of Site- and Trimester-Specific Reference Intervals for Thyroid Function tests in . Thyroid, 2019:29:3:412-420. Gonzalo E, et al. 2017 Guidelines of the [place] Thyroid Association for the Diagnosis and Management of Thyroid Disease during and the . Thyroid, 2017:27:3:315-389. Performed By: #### 3 016-3, 16148-4, ####[facility] LABCLIA [id number] [address] [place] [address] [place] CNOVon 11-24-2023 CNOV Normal [facility] CNPNon 11-24-2023 CNPN Normal [facility] Comprehensive metabolic 2000 panelOrdered By: Kimberlee Brownlee on 11-24-2023 Albumin [Mass/Vol] 4.2 g/dL 3.9 - 4.9 g/dL Cl [facility] ALP [Catalytic activity/Vol] 82 U/L 34 - 123 U/L [facility] ALT [Catalytic activity/Vol] 37 U/L 7 - 38 U/L [facility] Anion gap [Moles/Vol] 8 mmol/L 8 - 15 mmol/L [facility] AST [Catalytic activity/Vol] 18 U/L 13 - 35 U/L [facility] Bilirubin [Mass/Vol] 0.2 mg/dL 0.2 - 1 .3 mg/dL [facility] Calcium [Mass/Vol] 9.6 mg/dL 8.5 - 10. 2 mg/dL [facility] Chloride [Moles/Vol] 101 mmol/L 98 - 10 7 mmol/L [facility] CO2 [Moles/Vol] 28 mmol/L 22 - 30 mmol/L [facility] Creatinine [Mass/Vol] 0.69 mg/dL 0.58 - 0.96 mg/dL [facility] GFR/1.73 sq M.predicted among non-blacks MDRD (S/P/Bld) [Vol rate/Area] 118 mL/min/{1.73_m2} - PINF [facility] Comment on above: Estimated Glomerular Filtration Rate (eGFR) is calculated using the 2020 CKD-EPI creatinine equation. This equation utilizes serum creatinine, sex, and age as parameters. The creatinine assay has traceable calibration to isotope dilution-mass spectrometry. Refer to KDIGO guidelines for clinical interpretation. In patients with unstable renal function, e.g. those with acute kidney injury, the eGFR may not accurately reflect actual GFR. Glucose [Mass/Vol] 116 mg/dL High 74 - 99 mg/dL [facility] Comment on above: The [place] Diabete s Association (ADA) provides guidance for cutoff values for fasting glucose and random glucose. The ADA defines fasting as no caloric intake for at least 8 hours. Fasting plasma glucose results between 100 to 125 mg/dL indicate increased risk for diabetes (prediabetes). Fasting plasma glucose results greater than or equal to 126 mg/dL meet the criteria for diagnosis of diabetes. In the absence of unequivocal hyperglycemia, results should be confirmed by repeat testing. In a patient with classic symptoms of hyperglycemia or hyperglycemic crisis, random plasma glucose results greater than or equal to 200 mg/dL meet the criteria for diagnosis of diabetes. Reference: Standards of Medical Care in Diabetes 2016, [place] Diabetes Association. Diabetes Care. 2016.39(Suppl 1). Interpretation and review of laboratory results Abnormal [facility] Potassium [Moles/Vol] 4.2 mmol/L 3.7 - 5.1 mmol/L [facility] Protein [Mass/Vol] 6.7 g/dL 6.3 - 8.0 g/dL [facility] Sodium [Moles/Vol] 137 mmol/L 136 - 144 mmol/L [facility] Urea nitrogen [Mass/Vol] 7 mg/dL 7 - 21 mg/dL [facility] Comprehensive metabolic 2000 panelon 11-24-2023 Albumin [Mass/Vol] 4.2 g/dL Normal 3.9-4.9 [facility] Comment on above: Order Comment: Speci men Type: BLOOD SPECIMENOrdering Facility: [facility] Address: [address] [place] [address] Performed By: #### 2 4323-8 ####[facility] [id number] [place] [address] [place] ALP [Catalytic activity/Vol] 82 U/L Normal 34-123 [facility] Comment on above: Order Comment: Speci men Type: BLOOD SPECIMENOrdering Facility: [facility] Address: [address] [place] [address] Performed By: #### 2 4323-8 ####[facility] [id number] [place] [address] [place] ALT [Catalytic activity/Vol] 37 U/L Normal 7-38 [facility] Comment on above: Order Comment: Speci men Type: BLOOD SPECIMENOrdering Facility: [facility] Address: [address] [place] [address] Performed By: #### 2 4323-8 ####[facility] MILLTOWNCLIA [id number] [place] [address] [place] Anion gap [Moles/Vol] 8 mmol/L Normal 8-15 [facility] Comment on above: Order Comment: Speci men Type: BLOOD SPECIMENOrdering Facility: [facility] Address: [address] [place] [address] Performed By: #### 2 4323-8 ####[facility] MILLTOWNCLIA [id number] [place] [address] [place] AST [Catalytic activity/Vol] 18 U/L Normal 13-35 [facility] Comment on above: Order Comment: Speci men Type: BLOOD SPECIMENOrdering Facility: [facility] Address: [address] [place] [address] Performed By: #### 2 4323-8 ####[facility]ACK[facility]LEWNCLIA [id number] [place] [address] [place] Bilirubin [Mass/Vol] 0.2 mg/dL Normal 0.2-1.3 [facility] Comment on above: Order Comment: Speci men Type: BLOOD SPECIMENOrdering Facility: [facility] Address: [address] [place] [address] Performed By: #### 2 4323-8 ####[facility] MILLTOWNCLIA [id number] [place] [address] [place] Calcium [Mass/Vol] 9.6 mg/dL Normal 8.5-10.2 [facility] Comment on above: Order Comment: Speci men Type: BLOOD SPECIMENOrdering Facility: [facility] Address: [address] [place] [address] Performed By: #### 2 4323-8 ####[facility] MILLWNCLIA [id number] [place] [address] [place] Chloride [Moles/Vol] 101 mmol/L Normal 98-107 [facility] Comment on above: Order Comment: Speci men Type: BLOOD SPECIMENOrdering Facility: [facility] Address: [address] [place] [address] Performed By: #### 2 4323-8 ####[facility] [id number] [place] [address] [place] CO2 [Moles/Vol] 28 mmol/L Normal 22-30 [facility] Comment on above: Order Comment: Speci men Type: BLOOD SPECIMENOrdering Facility: [facility] Address: [address] [place] [address] Performed By: #### 2 4323-8 ####[facility] [id number] [place] [address] [place] Creatinine [Mass/Vol] 0.69 mg/dL Normal 0.58-0.96 [facility] Comment on above: Order Comment: Speci men Type: BLOOD SPECIMENOrdering Facility: [facility] Address: [address] [place] [address] Performed By: #### 2 4323-8 ####[facility] [id number] [address] OF [facility] Creatinine and Glomerular filtration rate.predicted panel (S/P/Bld) 118 mL/min/1.73m??? Normal >=60 [facility] Comment on above: Order Comment: Speci men Type: BLOOD SPECIMENOrdering Facility: [facility] Address: [address] [place] [address] Result Comment: Maria G mated Glomerular Filtration Rate (eGFR) is calculated using the 2020 CKD-EPI creatinine equation. This equation utilizes serum creatinine, sex, and age as parameters. The creatinine assay has traceable calibration to isotope dilution-mass spectrometry. Refer to KDIGO guidelines for clinical interpretation. In patients with unstable renal function, e.g. those with acute kidney injury, the eGFR may not accurately reflect actual GFR. Performed By: #### 2 4323-8 ####[facility] ELIANETOWNCLIA [id number] [place] [address] [place] Glucose [Mass/Vol] 116 mg/dL High 74-99 [facility] Comment on above: Order Comment: Speci men Type: BLOOD SPECIMENOrdering Facility: [facility] Address: [address] [place], [place] [id number] Result Comment: The [place] Diabetes Association (ADA) provides guidance for cutoff values for fasting glucose and random glucose. The ADA defines fasting as no caloric intake for at least 8 hours. Fasting plasma glucose results between 100 to 125 mg/dL indicate increased risk for diabetes (prediabetes).Fasting plasma glucose results greater than or equal to 126 mg/dL meet the criteria for diagnosis of diabetes. In the absence of unequivocal hyperglycemia, results should be confirmed by repeat testing. In a patient with classic symptoms of hyperglycemia or hyperglycemic crisis, random plasma glucose results greater than or equal to 200 mg/dL meet the criteria for diagnosis of diabetes.Reference: Standards of Medical Care in Diabetes 2016, [place] Diabetes Association. Diabetes Care. 2016.39(Suppl 1). Performed By: #### 2 4323-8 ####[facility] [id number] [place] [address] [place] Potassium [Moles/Vol] 4.2 mmol/L Normal 3.7-5.1 [facility] Comment on above: Order Comment: Speci men Type: BLOOD SPECIMENOrdering Facility: [facility] Address: [address] [place] [address] Performed By: #### 2 4323-8 ####[facility] [id number] [place] [address] [place] Protein [Mass/Vol] 6.7 g/dL Normal 6.3-8.0 [facility] Comment on above: Order Comment: Speci men Type: BLOOD SPECIMENOrdering Facility: [facility] Address: [address] [place] [id number] Performed By: #### 2 4323-8 ####[facility] ELIANEBasilioNCLIA [id number] [place] [address] [place] Sodium [Moles/Vol] 137 mmol/L Normal 136-144 [facility] Comment on above: Order Comment: Speci men Type: BLOOD SPECIMENOrdering Facility: [facility] Address: [address] [place] [address] Performed By: #### 2 4323-8 ####[facility]ITALERICKLIA [id number] [place] [address] [place] Urea nitrogen [Mass/Vol] 7 mg/dL Normal 7-21 [facility] Comment on above: Order Comment: Speci men Type: BLOOD SPECIMENOrdering Facility: [facility] Address: [address] [place] [address] Performed By: #### 2 4323-8 ####[facility] [id number] [place] [address] [place] Hematocrit Auto (Bld) [Volum e fraction]on 11-21-2023 Hematocrit (Bld) [Volume fraction] 42.3 % Normal 36.0-46.0 [facility] Comment on above: Order Comment: Speci men Type: BLOOD SPECIMENOrdering Facility: [facility] Address: [address] [place] [address] Performed By: #### 7 77-3, 4544-3 ####[facility] [id number] [place] [address] [place] PLATELET FUNCTION SCREENon 0 11-21-2023 Platelet function (closure time) collagen+ADP induced (Bld) [Time] 69 CT (seconds) Normal <118 [facility] Comment on above: Order Comment: Speci men Type: BLOOD SPECIMENOrdering Facility: [facility] Address: [address] [place] [address] Performed By: #### P LTSCN ####[facility] LABCLIA [id number] [place] [address] [place] Platelet function (closure time) collagen+EPINEPHrine induced (Bld) [Time] 98 CT (seconds) Normal <194 [facility] Comment on above: Order Comment: Speci men Type: BLOOD SPECIMENOrdering Facility: [facility] Address: [address] [place] [address] Performed By: #### P LTSCN ####[facility] LABIA [id number] [place] [address] [place] PT panel Coag (PPP)on 2023 INR Coag (PPP) [Relative time] 1.0 {INR} Normal 0.9-1.3 [facility] Comment on above: Order Comment: Speci [facility] Type: BLOOD SPECIMENOrdering Facility: [facility] Address: [address] [place] [address] Result Comment: Tracey min K Antagonist (VKA) Therapeutic Range: INR 2 to 3 (Target INR of 2.5)Note: For patients treated with VKA drugs, such as warfarin, the [place] [employer] 2012 Guideline recommends a therapeutic INR range of 2 to 3 (target INR of 2.5). This recommendation includes high-risk patients with antiphospholipid syndrome with previous arterial or venous thromboembolism, current-generation mechanical or bioprosthetic aortic heart valve replacement.Note: Patients with mechanical aortic valve replacement and additional risk factors for thromboembolic events (atrial fibrillation, previous thromboembolism, LV dysfunction, hypercoagulable conditions) or an older generation mechanical AVR (i.e., ball in-Cage) or any mechanical MVR should have a INR therapeutic range of 2.5 to 3.5 (target INR of 3).Wilson GH, et al. Chest 2012, 141:7S-47SNishimura RA, et al. [facility] 2017, 70: 252-289 Performed By: #### 3 4528-0, 07345-1 ####[facility] [id number] [place] [address] [place] PT Coag (PPP) [Time] 10.0 s Normal <13.1 [facility] Comment on above: Order Comment: Speci men Type: BLOOD SPECIMENOrdering Facility: [facility] Address: [address] [place] [address] Performed By: #### 3 4528-0, 40616-9 ####[facility] [id number] [place] [address] [place] Platelets Auto (Bld) [#/Vol] on 11-21-2023 Platelets (Bld) [#/Vol] 395 10*3/uL Normal 150-400 [facility] Comment on above: Order Comment: Speci men Type: BLOOD SPECIMENOrdering Facility: [facility] Address: [address] [place] [address] Performed By: #### 7 77-3, 4544-3 ####[facility] [id number] [place] [address] [place] VON WILLEBRAND PNL (VWFPN)on 11-21-2023 Bound rFVIII/vWf Ag IA (P) [Relative ratio] 1.8 Normal >=0.5 [facility] Comment on above: Order Comment: Speci men Type: BLOOD SPECIMENOrdering Facility: [facility] Address: [address] [place] [address] Performed By: #### L [id number] ####[facility] LABCLIA [id number] [place] [address] [place] Coagulation factor VIII activity actual/normal Coag (PPP) [Relative time] 159 % Normal 50-173 [facility] Comment on above: Order Comment: Speci men Type: BLOOD SPECIMENOrdering Facility: [facility] Address: [address] [place] [address] Performed By: #### L [id number] ####[facility] LABCLIA [id number] [place] [address] [place] GPIBM ACTIVITY 108 % Normal 44-156 [facility] Comment on above: Order Comment: Speci giancarlo Type: BLOOD SPECIMENOrdering Facility: [facility] Address: [address] [place] [address] Performed By: #### L [id number] ####[facility] [id number] [place] [address] [place] Platelet aggregation ristocetin induced Ql (PRP) Normal dose response Normal Normal dose response [facility] Comment on above: Order Comment: Speci giancarlo Type: BLOOD SPECIMENOrdering Facility: [facility] Address: [address] [place] [address] Performed By: #### L [id number] ####[facility] [id number] [place] [address] [place] vWf Ag actual/normal IA (PPP) [Relative mass conc] 88 % Normal 50-173 [facility] Comment on above: Order Comment: Speci [facility] Type: BLOOD SPECIMENOrdering Facility: [facility] Address: [address] [place] [address] Performed By: #### L [id number] ####[facility] [id number] [place] [address] [place] vWf multimers Ql (PPP) Normal [facility] Comment on above: Order Comment: Sultana [facility] Type: BLOOD SPECIMENOrdering Facility: [facility] Address: [address] [place] [address] Result Comment: Assa y of von Willebrand multimers was performed by an agarose gel electrophoresis followed by immunofixation with anti-von Willebrand factor antiserum.There is a normal multimer intensity with a normal distribution of multimer sizes.Reviewed by Adam Reynolds M.D. Performed By: #### L [id number] ####[facility] [id number] [place] [address] [place] vWf ristocetin cofactor act/vWf Ag (PPP) [Ratio] 1.1 Normal >=0.5 [facility] Comment on above: Order Comment: Speci [facility] Type: BLOOD SPECIMENOrdering Facility: [facility] Address: [address] [place] [address] Performed By: #### L [id number] ####[facility] LABIA [id number] [place] [address] [place] vWf ristocetin cofactor Qn (PPP) 98 % Normal 42-146 [facility] Comment on above: Order Comment: Speci men Type: BLOOD SPECIMENOrdering Facility: [facility] Address: [address] [place] [address] Result Comment: This test was developed and its performance characteristics determined by [facility] [place] ([facility] It has not been cleared or approved by the FDA. [facility] is regulated under CLIA as qualified to perform high-complexity testing. This test is used for clinical purposes. It should not be regarded as investigational or for research. Performed By: #### L [id number] ####[facility] LABIA [id number] [place] [address] [place] vWf.collagen binding activity actual/normal IA (PPP) [Relative ratio] 87 % Normal 41-161 [facility] Comment on above: Order Comment: Sultana mondragon Type: BLOOD SPECIMENOrdering Facility: [facility] Address: [address] [place] [address] Result Comment: This test was developed and its performance characteristics determined by [facility]'s [facility] [place] ([facility]). It has not been cleared or approved by the FDA. [facility] is regulated under CLIA as qualified to perform high-complexity testing. This test is used for clinical purposes. It should not be regarded as investigational or for research. Performed By: #### L [id number] ####[facility] LABIA [id number] [place] [address] [place] vWf.collagen binding activity/vWf Ag IA (PPP) [Ratio] 1.0 Normal >=0.6 [facility] Comment on above: Order Comment: Speci men Type: BLOOD SPECIMENOrdering Facility: [facility] Address: [address] [place] [address] Performed By: #### L [id number] ####[facility] LABCLIA [id number] [id number] [id number] [place] aPTT PPPon 11-21-2023 aPTT Coag (PPP) [Time] 31.2 s Normal 23.0-32.4 [facility] Comment on above: Order Comment: Speci men Type: BLOOD SPECIMENOrdering Facility: [facility] Address: [address] [place] [address] Performed By: #### 3 4528-0, 82869-8 ####[facility] [id number] [address] [place] DBT Breast - bilateral diagn ostic for implanton 11-16-2023 * * *Final Report* * * DATE OF EXAM: Nov 16 2023 10:37AM [facility] 0627 - LEANN DIAG W ONESIMO JAMES / PROCEDURE REASON: Abnormal mammogram * * * * Physician Interpretation * * * * RESULT: #[id number] - LEANN DIAG W ONESIMO JAMES #[id number] - LEANN US BREAST LTD LT #[id number] - LEANN US BREAST LTD RT BILATERAL DIGITAL DIAGNOSTIC MAMMOGRAM TOMOSYNTHESIS WITH CAD: 11/16/2023 HISTORY: Abnormal Mammogram Breast Pain Abnormal Mammogram. RESULT: TECHNIQUE: The study was acquired using full field digital technology and interpreted from soft copy. Digital Breast Tomosynthesis (DBT) images were obtained and used to assist in the interpretation of this examination. Current study was also evaluated with a Computer Aided Detection (CAD). Comparison is made to exams dated: 11/09/2023 mammogram, 08/31/2017 mammogram, 11/09/2023 ultrasound, and 11/09/2023 ultrasound - [facility]. The breasts are heterogeneously dense, which may obscure small masses. There is a possible asymmetry in the right breast outer region seen on the craniocaudal view only. Finding is best noted on tomographic CC slice 43. This changes configuration on the off angle CC views and effaces on the spot compression view, suggestive of benign etiology. There are regional layering punctate calcifications in the left breast upper outer aspect. No other significant masses or calcifications are seen in either breast. DIVISION OF RADIOLOGY Provider, Linda Florez [facility] - 11/16/2023 * * *Final Report* * * DATE OF EXAM: Nov 16 2023 10:37AM [facility] 0627 - LEANN DIAG W ONESIMO JAMES / PROCEDURE REASON: Abnormal mammogram * * * * Physician Interpretation * * * * RESULT: #[id number] - LEANN DIAG W ONESIMO JAMES #[id number] - LEANN US BREAST LTD LT #[id number] - LEANN US BREAST LTD RT BILATERAL DIGITAL DIAGNOSTIC MAMMOGRAM TOMOSYNTHESIS WITH CAD: 11/16/2023 HISTORY: Abnormal Mammogram Breast Pain Abnormal Mammogram. RESULT: TECHNIQUE: The study was acquired using full field digital technology and interpreted from soft copy. Digital Breast Tomosynthesis (DBT) images were obtained and used to assist in the interpretation of this examination. Current study was also evaluated with a Computer Aided Detection (CAD). Comparison is made to exams dated: 11/09/2023 mammogram, 08/31/2017 mammogram, 11/09/2023 ultrasound, and 11/09/2023 ultrasound - [facility]. The breasts are heterogeneously dense, which may obscure small masses. There is a possible asymmetry in the right breast outer region seen on the craniocaudal view only. Finding is best noted on tomographic CC slice 43. This changes configuration on the off angle CC views and effaces on the spot compression view, suggestive of benign etiology. There are regional layering punctate calcifications in the left breast upper outer aspect. No other significant masses or calcifications are seen in either breast. IMPRESSION IMPRESSION: INCOMPLETE: NEEDS ADDITIONAL IMAGING EVALUATION The possible asymmetry in the right breast outer region seen on the craniocaudal view only is probably benign. This changes configuration on the off angle CC views and effaces on the spot compression view, suggestive of benign etiology as overlapping fibroglandular tissue. If no sonographic correlate identified, then follow up in 6 months will be recommended to document stability as this was previously recommended for biopsy. The regional layering punctate calcifications in the left breast upper outer aspect likely represent milk of calcium and are probably benign. A follow-up mammogram in 6 months is recommended. There is no abnormality seen in the right breast to correspond with the palpable abnormality, however, ultrasound is recommended. There is no abnormality seen in the left breast to correspond with the pain, however, ultrasound is recommended. LIMITED ULTRASOUND OF LEFT BREAST: 11/16/2023 RESULT: Comparison is made to exams dated: 11/09/2023 mammogram, 08/31/2017 mammogram, 11/09/2023 ultrasound, and 11/09/2023 [facility]. Real-time ultrasound of the left breast was performed. Culver scale images of the real-time examination were reviewed. Targeted scanning of the areas of pain at 1:00 7 cmfn and 2:00 6 cmfn in the left breast was performed. No focal or suspicious sonographic findings were seen. IMPRESSION: NEGATIVE There is no sonographic evidence of malignancy. Follow up of the areas of pain should be based on clinical assessment. LIMITED ULTRASOUND OF RIGHT BREAST: 11/16/2023 RESULT: Comparison is made to exams dated: 11/09/2023 mammogram, 08/31/2017 mammogram, 11/09/2023 ultrasound, and 11/09/2023 [facility]. Real-time ultrasound of the right breast was performed. Culver scale images of the real-time examination were reviewed. Targeted scanning of the area of palpable concern in the upper outer right breast and area of mammographic concern along 9:00 was performed. There is a benign oil cyst seen at the area of palpable concern at 12:00 5 cmfn measuring 0.4 x 0.3 x 0.3 cm. Additional incidental benign oil cysts are see at 1:00 5 cmfn and 2:00 5 cmfn. No suspicious sonographic findings were seen. No solid or cystic mass along 9:00 at site of possible mammographic asymmetry. IMPRESSION: BENIGN FINDING There is no sonographic evidence of malignancy. Oil cysts in the right breast are benign. Follow up of the area of palpable concern should be based on clinical assessment. No abnormality in the right breast to correlate to the possible asymmetry identified on the mammogram, however, follow up mammogram in 6 months is recommended to document stability. A follow-up mammogram in 6 months is recommended to demonstrate stability. SUMMARY: Patient to be scheduled for bilateral diagnostic mammogram in 6 months. Socorro downing/bere:11/16/2023 11:52:05 Multiple national specialty organizations have released breast cancer screening guidelines for women at average risk for developing breast cancer - guidelines that are based on both evidence and opinion, yet differ on when to start and how often to screen for breast cancer. With representation from Breast Imaging, Internal Medicine, Women's Health, Family Medicine, (more content not included)... [facility] DBT Breast - bilateral diagn ostic for implantOrdered By: [facility] Provider on 11-16-2023 [facility] LEANN DIAG W ONESIMO BILon 2023 LEANN DIAG W ONESIMO JAMES Normal [facility] US BREAST LTD LTon 11-15 [facility] US BREAST LTD LT Normal [facility] LEANN US BREAST LTD RTon 11-15 [facility] US BREAST LTD RT Normal [facility] No Panel Informationon 11-15 [facility] Radiology Study observation (narrative) [facility] US Breast - left limitedon 0 11-16-2023 * * *Final Report* * * DATE OF EXAM: Nov 16 2023 11:02AM [facility] 0593 - LEANN US BREAST LTD LT / PROCEDURE REASON: Breast pain * * * * Physician Interpretation * * * * RESULT: #[id number] - LEANN DIAG W ONESIMO JAMES #[id number] - LEANN US BREAST LTD LT #[id number] - LEANN US BREAST LTD RT BILATERAL DIGITAL DIAGNOSTIC MAMMOGRAM TOMOSYNTHESIS WITH CAD: 11/16/2023 HISTORY: Abnormal Mammogram Breast Pain Abnormal Mammogram. RESULT: TECHNIQUE: The study was acquired using full field digital technology and interpreted from soft copy. Digital Breast Tomosynthesis (DBT) images were obtained and used to assist in the interpretation of this examination. Current study was also evaluated with a Computer Aided Detection (CAD). Comparison is made to exams dated: 11/09/2023 mammogram, 08/31/2017 mammogram, 11/09/2023 ultrasound, and 11/09/2023 ultrasound - [facility]. The breasts are heterogeneously dense, which may obscure small masses. There is a possible asymmetry in the right breast outer region seen on the craniocaudal view only. Finding is best noted on tomographic CC slice 43. This changes configuration on the off angle CC views and effaces on the spot compression view, suggestive of benign etiology. There are regional layering punctate calcifications in the left breast upper outer aspect. No other significant masses or calcifications are seen in either breast. DIVISION OF RADIOLOGY Provider, Linda Florez [facility] - 11/16/2023 * * *Final Report* * * DATE OF EXAM: Nov 16 2023 11:02AM [facility] 0593 - [facility] A [employer] A Custom Cornhole BREAST Obatech LT / PROCEDURE REASON: Breast pain * * * * Physician Interpretation * * * * RESULT: #[id number] - LEANN DIAG W ONESIMO JAMES #[id number] - [facility] A & A Custom Cornhole BREAST LTD LT #[id number] - [facility] A & A Custom Cornhole BREAST LTD RT BILATERAL DIGITAL DIAGNOSTIC MAMMOGRAM TOMOSYNTHESIS WITH CAD: 11/16/2023 HISTORY: Abnormal Mammogram Breast Pain Abnormal Mammogram. RESULT: TECHNIQUE: The study was acquired using full field digital technology and interpreted from soft copy. Digital Breast Tomosynthesis (DBT) images were obtained and used to assist in the interpretation of this examination. Current study was also evaluated with a Computer Aided Detection (CAD). Comparison is made to exams dated: 11/09/2023 mammogram, 08/31/2017 mammogram, 11/09/2023 ultrasound, and 11/09/2023 ultrasound - [facility]. The breasts are heterogeneously dense, which may obscure small masses. There is a possible asymmetry in the right breast outer region seen on the craniocaudal view only. Finding is best noted on tomographic CC slice 43. This changes configuration on the off angle CC views and effaces on the spot compression view, suggestive of benign etiology. There are regional layering punctate calcifications in the left breast upper outer aspect. No other significant masses or calcifications are seen in either breast. IMPRESSION IMPRESSION: INCOMPLETE: NEEDS ADDITIONAL IMAGING EVALUATION The possible asymmetry in the right breast outer region seen on the craniocaudal view only is probably benign. This changes configuration on the off angle CC views and effaces on the spot compression view, suggestive of benign etiology as overlapping fibroglandular tissue. If no sonographic correlate identified, then follow up in 6 months will be recommended to document stability as this was previously recommended for biopsy. The regional layering punctate calcifications in the left breast upper outer aspect likely represent milk of calcium and are probably benign. A follow-up mammogram in 6 months is recommended. There is no abnormality seen in the right breast to correspond with the palpable abnormality, however, ultrasound is recommended. There is no abnormality seen in the left breast to correspond with the pain, however, ultrasound is recommended. LIMITED ULTRASOUND OF LEFT BREAST: 11/16/2023 RESULT: Comparison is made to exams dated: 11/09/2023 mammogram, 08/31/2017 mammogram, 11/09/2023 ultrasound, and 11/09/2023 [facility]. Real-time ultrasound of the left breast was performed. Culver scale images of the real-time examination were reviewed. Targeted scanning of the areas of pain at 1:00 7 cmfn and 2:00 6 cmfn in the left breast was performed. No focal or suspicious sonographic findings were seen. IMPRESSION: NEGATIVE There is no sonographic evidence of malignancy. Follow up of the areas of pain should be based on clinical assessment. LIMITED ULTRASOUND OF RIGHT BREAST: 11/16/2023 RESULT: Comparison is made to exams dated: 11/09/2023 mammogram, 08/31/2017 mammogram, 11/09/2023 ultrasound, and 11/09/2023 [facility]. Real-time ultrasound of the right breast was performed. Culver scale images of the real-time examination were reviewed. Targeted scanning of the area of palpable concern in the upper outer right breast and area of mammographic concern along 9:00 was performed. There is a benign oil cyst seen at the area of palpable concern at 12:00 5 cmfn measuring 0.4 x 0.3 x 0.3 cm. Additional incidental benign oil cysts are see at 1:00 5 cmfn and 2:00 5 cmfn. No suspicious sonographic findings were seen. No solid or cystic mass along 9:00 at site of possible mammographic asymmetry. IMPRESSION: BENIGN FINDING There is no sonographic evidence of malignancy. Oil cysts in the right breast are benign. Follow up of the area of palpable concern should be based on clinical assessment. No abnormality in the right breast to correlate to the possible asymmetry identified on the mammogram, however, follow up mammogram in 6 months is recommended to document stability. A follow-up mammogram in 6 months is recommended to demonstrate stability. SUMMARY: Patient to be scheduled for bilateral diagnostic mammogram in 6 months. Socorro downing/bere:11/16/2023 11:52:05 Multiple national specialty organizations have released breast cancer screening guidelines for women at average risk for developing breast cancer - guidelines that are based on both evidence and opinion, yet differ on when to start and how often to screen for breast cancer. With representation from Breast Imaging, Internal Medicine, Women's Health, Family Medicine, and [place] (more content not included)... [facility] US Breast - right limitedon 11-16-2023 * * *Final Report* * * DATE OF EXAM: Nov 16 2023 11:02AM [facility] 0594 - [facility] A & A Custom Cornhole BREAST LTD RT / PROCEDURE REASON: Abnormal mammogram * * * * Physician Interpretation * * * * RESULT: #[id number] - LEANN DIAG W ONESIMO JAMES #[id number] - [facility] A & A Custom Cornhole BREAST LTD LT #[id number] - [facility] A & A Custom Cornhole BREAST LTD RT BILATERAL DIGITAL DIAGNOSTIC MAMMOGRAM TOMOSYNTHESIS WITH CAD: 11/16/2023 HISTORY: Abnormal Mammogram Breast Pain Abnormal Mammogram. RESULT: TECHNIQUE: The study was acquired using full field digital technology and interpreted from soft copy. Digital Breast Tomosynthesis (DBT) images were obtained and used to assist in the interpretation of this examination. Current study was also evaluated with a Computer Aided Detection (CAD). Comparison is made to exams dated: 11/09/2023 mammogram, 08/31/2017 mammogram, 11/09/2023 ultrasound, and 11/09/2023 ultrasound - [facility]. The breasts are heterogeneously dense, which may obscure small masses. There is a possible asymmetry in the right breast outer region seen on the craniocaudal view only. Finding is best noted on tomographic CC slice 43. This changes configuration on the off angle CC views and effaces on the spot compression view, suggestive of benign etiology. There are regional layering punctate calcifications in the left breast upper outer aspect. No other significant masses or calcifications are seen in either breast. DIVISION OF RADIOLOGY Provider, Celeste Gautam [facility] - 11/16/2023 * * *Final Report* * * DATE OF EXAM: Nov 16 2023 11:02AM [id number] [id number] - [facility] US BREAST LTD RT / PROCEDURE REASON: Abnormal mammogram * * * * Physician Interpretation * * * * RESULT: #[id number] - [facility] SHEILA W ONESIMO JAMES #[id number] - [facility] US BREAST LTD LT #[id number] - [facility] US BREAST LTD RT BILATERAL DIGITAL DIAGNOSTIC MAMMOGRAM TOMOSYNTHESIS WITH CAD: 11/16/2023 HISTORY: Abnormal Mammogram Breast Pain Abnormal Mammogram. RESULT: TECHNIQUE: The study was acquired using full field digital technology and interpreted from soft copy. Digital Breast Tomosynthesis (DBT) images were obtained and used to assist in the interpretation of this examination. Current study was also evaluated with a Computer Aided Detection (CAD). Comparison is made to exams dated: 11/09/2023 mammogram, 08/31/2017 mammogram, 11/09/2023 ultrasound, and 11/09/2023 ultrasound - [facility]. The breasts are heterogeneously dense, which may obscure small masses. There is a possible asymmetry in the right breast outer region seen on the craniocaudal view only. Finding is best noted on tomographic CC slice 43. This changes configuration on the off angle CC views and effaces on the spot compression view, suggestive of benign etiology. There are regional layering punctate calcifications in the left breast upper outer aspect. No other significant masses or calcifications are seen in either breast. IMPRESSION IMPRESSION: INCOMPLETE: NEEDS ADDITIONAL IMAGING EVALUATION The possible asymmetry in the right breast outer region seen on the craniocaudal view only is probably benign. This changes configuration on the off angle CC views and effaces on the spot compression view, suggestive of benign etiology as overlapping fibroglandular tissue. If no sonographic correlate identified, then follow up in 6 months will be recommended to document stability as this was previously recommended for biopsy. The regional layering punctate calcifications in the left breast upper outer aspect likely represent milk of calcium and are probably benign. A follow-up mammogram in 6 months is recommended. There is no abnormality seen in the right breast to correspond with the palpable abnormality, however, ultrasound is recommended. There is no abnormality seen in the left breast to correspond with the pain, however, ultrasound is recommended. LIMITED ULTRASOUND OF LEFT BREAST: 11/16/2023 RESULT: Comparison is made to exams dated: 11/09/2023 mammogram, 08/31/2017 mammogram, 11/09/2023 ultrasound, and 11/09/2023 ultrasound - [facility]. Real-time ultrasound of the left breast was performed. Culver scale images of the real-time examination were reviewed. Targeted scanning of the areas of pain at 1:00 7 cmfn and 2:00 6 cmfn in the left breast was performed. No focal or suspicious sonographic findings were seen. IMPRESSION: NEGATIVE There is no sonographic evidence of malignancy. Follow up of the areas of pain should be based on clinical assessment. LIMITED ULTRASOUND OF RIGHT BREAST: 11/16/2023 RESULT: Comparison is made to exams dated: 11/09/2023 mammogram, 08/31/2017 mammogram, 11/09/2023 ultrasound, and 11/09/2023 ultrasound - [facility]. Real-time ultrasound of the right breast was performed. Culver scale images of the real-time examination were reviewed. Targeted scanning of the area of palpable concern in the upper outer right breast and area of mammographic concern along 9:00 was performed. There is a benign oil cyst seen at the area of palpable concern at 12:00 5 cmfn measuring 0.4 x 0.3 x 0.3 cm. Additional incidental benign oil cysts are see at 1:00 5 cmfn and 2:00 5 cmfn. No suspicious sonographic findings were seen. No solid or cystic mass along 9:00 at site of possible mammographic asymmetry. IMPRESSION: BENIGN FINDING There is no sonographic evidence of malignancy. Oil cysts in the right breast are benign. Follow up of the area of palpable concern should be based on clinical assessment. No abnormality in the right breast to correlate to the possible asymmetry identified on the mammogram, however, follow up mammogram in 6 months is recommended to document stability. A follow-up mammogram in 6 months is recommended to demonstrate stability. SUMMARY: Patient to be scheduled for bilateral diagnostic mammogram in 6 months. Socorro downing/bere:11/16/2023 11:52:05 Multiple national specialty organizations have released breast cancer screening guidelines for women at average risk for developing breast cancer - guidelines that are based on both evidence and opinion, yet differ on when to start and how often to screen for breast cancer. With representation from Breast Imaging, Internal Medicine, Women's Health, Family Medicine, (more content not included)... [facility] BACTERIAL VAGINOSIS NAATon 0 11-14-2023 Lactobacillus crispatus+gasseri+farida senii + Gardnerella vaginalis + Atopobium vaginae rRNA ROSELINE+probe Ql (Vag fld) Negative Normal Negative for bacterial vaginosis [facility] Comment on above: Order Comment: Speci men Type: SWABOrdering Facility: [facility] Address: [address] [place] [address] Performed By: #### C VTV, BVAMP ####[facility] LABCLIA [id number] [place] [address] [place] DELICIA/TRICHOMONAS NAATon 0 11-14-2023 C. glabrata RNA ROSELINE+probe Ql (Vag fld) Negative Normal Negative for Delicia glabrata [facility] Comment on above: Order Comment: Speci men Type: SWABOrdering Facility: [facility] Address: [address] [place] [address] Performed By: #### C VTV, BVAMP ####[facility] LABCLIA [id number] [place] [address] [place] Delicia sp DNA ROSELINE+probe Ql (Vag fld) Negative Normal Negative for Delicia species [facility] Comment on above: Order Comment: Speci men Type: SWABOrdering Facility: [facility] Address: [address] [place] [address] Performed By: #### C VTV, BVAMP ####[facility] LABCLIA [id number] [place] [address] [place] T. vaginalis DNA ROSELINE+probe Ql (Unsp spec) Negative Normal Negative for Trichomonas vaginalis by amplification [facility] Comment on above: Order Comment: Speci men Type: SWABOrdering Facility: [facility] Address: [address] [place] [address] Performed By: #### C VTV, BVAMP ####[facility] LABCLIA [id number] [address] [address] [place] CNOVon 11-14-2023 CNOV Normal [facility] CNPNon 11-14-2023 CNPN Normal [facility] CNPNon 11-11-2023 CNPN Normal [facility] DBT Breast - bilateral diagn ostic for implanton 11-09-2023 * * *Final Report* * * DATE OF EXAM: Nov 09 2023 3:00PM [facility] 0627 - [facility] DIAG W ONESIMO JAMES / PROCEDURE REASON: Mastalgia * * * * Physician Interpretation * * * * RESULT: #[id number] - [facility] DIAG W ONESIMO JAMES #[id number] - [facility] US BREAST LTD LT #[id number] - [facility] US BREAST LTD RT BILATERAL DIGITAL DIAGNOSTIC MAMMOGRAM TOMOSYNTHESIS WITH CAD: 11/09/2023 HISTORY: Mastalgia/ lt side tenderness RUOQ, rt side lump with pain/ one prior lt side MG in 2007 /SEE TECH NOTE Mass Overlapping Multiple Quadrants Of Right Breast Mastalgia. RESULT: TECHNIQUE: The study was acquired using full field digital technology and interpreted from soft copy. Digital Breast Tomosynthesis (DBT) images were obtained and used to assist in the interpretation of this examination. Current study was also evaluated with a Computer Aided Detection (CAD). No prior exams were available for comparison. The breasts are heterogeneously dense, which may obscure small masses. There is architectural distortion in the right breast middle depth lateral region seen on the craniocaudal view only. There are scattered fine calcifications in the left breast at 1 o'clock middle depth. No other significant masses or calcifications are seen in either breast. DIVISION OF RADIOLOGY Provider, [facility] - 11/09/2023 * * *Final Report* * * DATE OF EXAM: Nov 09 2023 3:00PM [facility] 0627 - [facility] DIAG W ONESIMO JAMES / PROCEDURE REASON: Mastalgia * * * * Physician Interpretation * * * * RESULT: #[id number] - [facility] DIAG W ONESIMO JAMES #[id number] - [facility] US BREAST LTD LT #[id number] - [facility] US BREAST LTD RT BILATERAL DIGITAL DIAGNOSTIC MAMMOGRAM TOMOSYNTHESIS WITH CAD: 11/09/2023 HISTORY: Mastalgia/ lt side tenderness RUOQ, rt side lump with pain/ one prior lt side MG in 2008 /SEE TECH NOTE Mass Overlapping Multiple Quadrants Of Right Breast Mastalgia. RESULT: TECHNIQUE: The study was acquired using full field digital technology and interpreted from soft copy. Digital Breast Tomosynthesis (DBT) images were obtained and used to assist in the interpretation of this examination. Current study was also evaluated with a Computer Aided Detection (CAD). No prior exams were available for comparison. The breasts are heterogeneously dense, which may obscure small masses. There is architectural distortion in the right breast middle depth lateral region seen on the craniocaudal view only. There are scattered fine calcifications in the left breast at 1 o'clock middle depth. No other significant masses or calcifications are seen in either breast. IMPRESSION IMPRESSION: INCOMPLETE: NEEDS ADDITIONAL IMAGING EVALUATION 3D guided biopsy is suggested. The architectural distortion in the right breast middle depth lateral region seen on the craniocaudal view only is suspicious of malignancy. A biopsy is recommended. The scattered fine calcifications in the left breast at 1 o'clock middle depth are probably benign. A follow-up in 6 months is recommended. There is no abnormality seen in the left breast to correspond with the pain, however, ultrasound is recommended. LIMITED ULTRASOUND OF RIGHT BREAST: 11/09/2023 RESULT: No prior exams were available for comparison. Real-time ultrasound of the right breast 12 o'clock region was performed. Culver scale images of the real-time examination were reviewed. There is an irregular lesion in the right breast at 12 o'clock middle depth. This correlates as palpated and with mammography findings. IMPRESSION: SUSPICIOUS FINDING - BIOPSY SHOULD BE CONSIDERED The irregular lesion in the right breast is suspicious of malignancy. A biopsy is recommended. LIMITED ULTRASOUND OF LEFT BREAST: 11/09/2023 RESULT: No prior exams were available for comparison. Color flow and real-time ultrasound of the left breast 1-2 o'clock region were performed. Culver scale images of the real-time examination were reviewed. IMPRESSION: BENIGN FINDING 3D guided biopsy is suggested. There is no sonographic evidence of malignancy. There is no abnormality seen in the left breast to correspond with the pain, however, clinical correlation is recommended. Ruddy her/bere:11/09/2023 15:30:19 Multiple national specialty organizations have released breast cancer screening guidelines for women at average risk for developing breast cancer - guidelines that are based on both evidence and opinion, yet differ on when to start and how often to screen for breast cancer. With representation from Breast Imaging, Internal Medicine, Women's Health, Family Medicine, and Medical/Surgical Oncology, the [facility] has carefully reviewed the data and reached the following consensus: 1) All women should engage in shared decision-making with their providers to decide when to start and how often to screen; 2) All women should have the opportunity to start screening mammography at age 40; 3) For women ages 45-55, we recommend annual screening mammograms; 4) For women ages 55 and over, we support both the transition from an annual to a biennial interval if this aligns more with patient's values and preferences, or continuation with annual screening; 5) All women should discuss with their providers when to stop screening mammograms. Yard Worker(s): Mariella Matias, [facility]; RT Conor(R)(M), [facility] OVERALL STUDY BIRADS: 4 Suspicious finding - Biopsy should be considered Drying Tumbler Operator: Bere Transcribe Date/Time: Nov 09 2023 2:31P Dictated by: RUDDY SHEEHAN MD This examination was interpreted and the report reviewed and electronically signed by: RUDDY SHEEHAN MD on Nov 09 2023 3:30PM EST [facility] LEANN DIAG W ONESIMO BILon 2023 LEANN DIAG W ONESIMO JAMES Normal [facility] US BREAST LTD LTon 11-08 [facility] US BREAST LTD LT Normal [facility] US BREAST LTD RTon 11-08 [facility] US BREAST LTD RT Normal [facility] No Panel InformationOrdered By: [facility] Provider on 11-09-2023 [facility] No Panel Informationon 11-08 Radiology Study observation (narrative) [facility] Breast - left limitedon 0 11-09-2023 * * *Final Report* * * DATE OF EXAM: Nov 09 2023 3:15PM [facility]U [id number] - [facility] US BREAST LTD LT / PROCEDURE REASON: Mastalgia * * * * Physician Interpretation * * * * #[id number] - [facility] DIAG W ONESIMO JAMES #[id number] - [facility] US BREAST LTD LT #[id number] - [facility] A & [employer] Corn[employer] BREAST LTD RT BILATERAL DIGITAL DIAGNOSTIC MAMMOGRAM TOMOSYNTHESIS WITH CAD: 11/09/2023 HISTORY: Mastalgia/ lt side tenderness RUOQ, rt side lump with pain/ one prior lt side MG in 2008 /SEE TECH NOTE Mass Overlapping Multiple Quadrants Of Right Breast Mastalgia. RESULT: TECHNIQUE: The study was acquired using full field digital technology and interpreted from soft copy. Digital Breast Tomosynthesis (DBT) images were obtained and used to assist in the interpretation of this examination. Current study was also evaluated with a Computer Aided Detection (CAD). No prior exams were available for comparison. The breasts are heterogeneously dense, which may obscure small masses. There is architectural distortion in the right breast middle depth lateral region seen on the craniocaudal view only. There are scattered fine calcifications in the left breast at 1 o'clock middle depth. No other significant masses or calcifications are seen in either breast. DIVISION OF RADIOLOGY Provider, [facility] - 11/09/2023 * * *Final Report* * * DATE OF EXAM: Nov 09 2023 3:15PM WRU 0593 - [facility] A & A Custom Cornhole BREAST [facility] LT / PROCEDURE REASON: Mastalgia * * * * Physician Interpretation * * * * #[id number] - [facility] DIAG W ONESIMO JAMES #[id number] - [facility] A & A Custom Cornhole BREAST [facility] LT #[id number] - [facility] A & A Custom Cornhole BREAST LTD RT BILATERAL DIGITAL DIAGNOSTIC MAMMOGRAM TOMOSYNTHESIS WITH CAD: 11/09/2023 HISTORY: Mastalgia/ lt side tenderness RUOQ, rt side lump with pain/ one prior lt side MG in 2008 /SEE TECH NOTE Mass Overlapping Multiple Quadrants Of Right Breast Mastalgia. RESULT: TECHNIQUE: The study was acquired using full field digital technology and interpreted from soft copy. Digital Breast Tomosynthesis (DBT) images were obtained and used to assist in the interpretation of this examination. Current study was also evaluated with a Computer Aided Detection (CAD). No prior exams were available for comparison. The breasts are heterogeneously dense, which may obscure small masses. There is architectural distortion in the right breast middle depth lateral region seen on the craniocaudal view only. There are scattered fine calcifications in the left breast at 1 o'clock middle depth. No other significant masses or calcifications are seen in either breast. IMPRESSION IMPRESSION: INCOMPLETE: NEEDS ADDITIONAL IMAGING EVALUATION 3D guided biopsy is suggested. The architectural distortion in the right breast middle depth lateral region seen on the craniocaudal view only is suspicious of malignancy. A biopsy is recommended. The scattered fine calcifications in the left breast at 1 o'clock middle depth are probably benign. A follow-up in 6 months is recommended. There is no abnormality seen in the left breast to correspond with the pain, however, ultrasound is recommended. LIMITED ULTRASOUND OF RIGHT BREAST: 11/09/2023 RESULT: No prior exams were available for comparison. Real-time ultrasound of the right breast 12 o'clock region was performed. Culver scale images of the real-time examination were reviewed. There is an irregular lesion in the right breast at 12 o'clock middle depth. This correlates as palpated and with mammography findings. IMPRESSION: SUSPICIOUS FINDING - BIOPSY SHOULD BE CONSIDERED The irregular lesion in the right breast is suspicious of malignancy. A biopsy is recommended. LIMITED ULTRASOUND OF LEFT BREAST: 11/09/2023 RESULT: No prior exams were available for comparison. Color flow and real-time ultrasound of the left breast 1-2 o'clock region were performed. Culver scale images of the real-time examination were reviewed. IMPRESSION: BENIGN FINDING 3D guided biopsy is suggested. There is no sonographic evidence of malignancy. There is no abnormality seen in the left breast to correspond with the pain, however, clinical correlation is recommended. Ruddy her/bere:11/09/2023 15:30:19 Multiple national specialty organizations have released breast cancer screening guidelines for women at average risk for developing breast cancer - guidelines that are based on both evidence and opinion, yet differ on when to start and how often to screen for breast cancer. With representation from Breast Imaging, Internal Medicine, Women's Health, Family Medicine, and Medical/Surgical Oncology, the [facility] has carefully reviewed the data and reached the following consensus: 1) All women should engage in shared decision-making with their providers to decide when to start and how often to screen; 2) All women should have the opportunity to start screening mammography at age 40; 3) For women ages 45-55, we recommend annual screening mammograms; 4) For women ages 55 and over, we support both the transition from an annual to a biennial interval if this aligns more with patient's values and preferences, or continuation with annual screening; 5) All women should discuss with their providers when to stop screening mammograms. Yard Worker(s): Mariella Matias, [facility]; Mukund Pace, RT(R)(M), [facility] OVERALL STUDY BIRADS: 4 Suspicious finding - Biopsy should be considered Drying Tumbler Operator: Bere Transcribe Date/Time: Nov 09 2023 2:31P Dictated by : RUDDY SHEEHAN MD This examination was interpreted and the report reviewed and electronically signed by: RUDDY SHEEHAN MD on Nov 09 2023 3:30PM [facility] US Breast - right limitedon 11-09-2023 * * *Final Report* * * DATE OF EXAM: Nov 09 2023 3:15PM [facility] [address] [place] [employer] Corn[employer] BREAST [employer] RT / PROCEDURE REASON: Mass overlapping multiple quadrants of right breast * * * * Physician Interpretation * * * * #[id number] - [facility] DIAG W ONESIMO JAMES #[id number] - [facility] A & A Custom Cornhole BREAST LTD LT #[id number] - [facility] A & A Custom Cornhole BREAST LTD RT BILATERAL DIGITAL DIAGNOSTIC MAMMOGRAM TOMOSYNTHESIS WITH CAD: 11/09/2023 HISTORY: Mastalgia/ lt side tenderness RUOQ, rt side lump with pain/ one prior lt side MG in 2007 /SEE TECH NOTE Mass Overlapping Multiple Quadrants Of Right Breast Mastalgia. RESULT: TECHNIQUE: The study was acquired using full field digital technology and interpreted from soft copy. Digital Breast Tomosynthesis (DBT) images were obtained and used to assist in the interpretation of this examination. Current study was also evaluated with a Computer Aided Detection (CAD). No prior exams were available for comparison. The breasts are heterogeneously dense, which may obscure small masses. There is architectural distortion in the right breast middle depth lateral region seen on the craniocaudal view only. There are scattered fine calcifications in the left breast at 1 o'clock middle depth. No other significant masses or calcifications are seen in either breast. DIVISION OF RADIOLOGY Provider, [facility] - 11/09/2023 * * *Final Report* * * DATE OF EXAM: Nov 09 2023 3:15PM [facility] 0594 [employer] BREAST [employer] RT / PROCEDURE REASON: Mass overlapping multiple quadrants of right breast * * * * Physician Interpretation * * * * #[id number] - [facility] DIAG W ONESIMO JAMES #[id number] - [facility] US BREAST LTD LT #[id number] - [facility] BREAST LTD RT BILATERAL DIGITAL DIAGNOSTIC MAMMOGRAM TOMOSYNTHESIS WITH CAD: 11/09/2023 HISTORY: Mastalgia/ lt side tenderness RUOQ, rt side lump with pain/ one prior lt side MG in 2008 /SEE TECH NOTE Mass Overlapping Multiple Quadrants Of Right Breast Mastalgia. RESULT: TECHNIQUE: The study was acquired using full field digital technology and interpreted from soft copy. Digital Breast Tomosynthesis (DBT) images were obtained and used to assist in the interpretation of this examination. Current study was also evaluated with a Computer Aided Detection (CAD). No prior exams were available for comparison. The breasts are heterogeneously dense, which may obscure small masses. There is architectural distortion in the right breast middle depth lateral region seen on the craniocaudal view only. There are scattered fine calcifications in the left breast at 1 o'clock middle depth. No other significant masses or calcifications are seen in either breast. IMPRESSION IMPRESSION: INCOMPLETE: NEEDS ADDITIONAL IMAGING EVALUATION 3D guided biopsy is suggested. The architectural distortion in the right breast middle depth lateral region seen on the craniocaudal view only is suspicious of malignancy. A biopsy is recommended. The scattered fine calcifications in the left breast at 1 o'clock middle depth are probably benign. A follow-up in 6 months is recommended. There is no abnormality seen in the left breast to correspond with the pain, however, ultrasound is recommended. LIMITED ULTRASOUND OF RIGHT BREAST: 11/09/2023 RESULT: No prior exams were available for comparison. Real-time ultrasound of the right breast 12 o'clock region was performed. Culver scale images of the real-time examination were reviewed. There is an irregular lesion in the right breast at 12 o'clock middle depth. This correlates as palpated and with mammography findings. IMPRESSION: SUSPICIOUS FINDING - BIOPSY SHOULD BE CONSIDERED The irregular lesion in the right breast is suspicious of malignancy. A biopsy is recommended. LIMITED ULTRASOUND OF LEFT BREAST: 11/09/2023 RESULT: No prior exams were available for comparison. Color flow and real-time ultrasound of the left breast 1-2 o'clock region were performed. Culver scale images of the real-time examination were reviewed. IMPRESSION: BENIGN FINDING 3D guided biopsy is suggested. There is no sonographic evidence of malignancy. There is no abnormality seen in the left breast to correspond with the pain, however, clinical correlation is recommended. uRddy her/bere:11/09/2023 15:30:19 Multiple national specialty organizations have released breast cancer screening guidelines for women at average risk for developing breast cancer - guidelines that are based on both evidence and opinion, yet differ on when to start and how often to screen for breast cancer. With representation from Breast Imaging, Internal Medicine, Women's Health, Family Medicine, and Medical/Surgical Oncology, the [facility] has carefully reviewed the data and reached the following consensus: 1) All women should engage in shared decision-making with their providers to decide when to start and how often to screen; 2) All women should have the opportunity to start screening mammography at age 40; 3) For women ages 45-55, we recommend annual screening mammograms; 4) For women ages 55 and over, we support both the transition from an annual to a biennial interval if this aligns more with patient's values and preferences, or continuation with annual screening; 5) All women should discuss with their providers when to stop screening mammograms. Yard Worker(s): Mariella Matias, [facility]; Mukund Pace RT(R)(M), [facility] OVERALL STUDY BIRADS: 4 Suspicious finding - Biopsy should be considered Drying Tumbler Operator: Bere Transcribe Date/Time: Nov 09 2023 2:31P Dictated by : RUDDY SHEEHAN MD This examination was interpreted and the report reviewed and electronically signed by: RUDDY SHEEHAN MD on Nov 09 2023 3:30PM EST [facility] CNPNon 11-08-2023 CNPN Normal [facility] CNOVon 11-07-2023 CNOV Normal [facility] CRP SerPl-mCncon 11-07-2023 CRP [Mass/Vol] 0.5 mg/dL Normal <0.9 [facility] Comment on above: Order Comment: Speci men Type: BLOOD SPECIMENOrdering Facility: [facility] Address: [address] [place], [place] [id number] Performed By: #### 5 0190-8, 2276-4, 1987-09, 3-6 ####[facility] LABCLIA [id number] [place] [id number] [place] [facility] Cortisol [Mass/Vol] 15.6 ug/dL Normal 4.8-19.5 [facility] Comment on above: Order Comment: Speci men Type: BLOOD SPECIMENOrdering Facility: [facility] Address: [address] [place] [address] Result Comment: Prov ided reference range is from 6-10 AM sample collection time.Cortisol Reference Range: 6-10 AM = 4.8-19.5 ug/dL, 4-8 PM = 2.5-11.9 ug/dL Performed By: #### 5 0190-8, 4, 1987-09, 2142-10 ####[facility] LABIA [id number] [place] [address] [place] ESR Westergren method (Bld) [Velocity]on 11-07-2023 ESR (Bld) [Velocity] 2 mm/h Normal 0-20 [facility] Comment on above: Order Comment: Speci men Type: BLOOD SPECIMENOrdering Facility: [facility] Address: [address] [place] [address] Performed By: #### 4 537-7 ####[facility] LABIA [id number] [place] [address] [place] Fer[facility]in [facility] 2023 Ferritin [Mass/Vol] 43.5 ng/mL Normal 14.7-205.1 [facility] Comment on above: Order Comment: Speci men Type: BLOOD SPECIMENOrdering Facility: [facility] Address: [address] [place] [address] Performed By: #### 5 0190-8, 2275-4, 1987-09, 2142-10 ####[facility] LABIA [id number] [place] [address] [place] Iron and Iron binding capaci ty panelon 11-07-2023 Iron [Mass/Vol] 42 ug/dL Normal 41-186 [facility] Comment on above: Order Comment: Speci men Type: BLOOD SPECIMENOrdering Facility: [facility] Address: [address] [place], [place] [address] Performed By: #### 5 0190-8, 2275-08, 1987-09, 2142-10 ####[facility] LABCLIA [id number] [place] [id number] [place] Iron binding capacity [Mass/Vol] 369 ug/dL Normal 232-386 [facility] Comment on above: Order Comment: Speci men Type: BLOOD SPECIMENOrdering Facility: [facility] Address: [address] [place] [address] Performed By: #### 5 0190-8, 2275-08, 1987-09, 2142-10 ####[facility] LABCLIA [id number] [place] [id number] [place] Iron/TIBC [Molar ratio] 11.4 % Low 15.0-57.0 [facility] Comment on above: Order Comment: Speci men Type: BLOOD SPECIMENOrdering Facility: [facility] Address: [address] [place] [address] Performed By: #### 5 0190-8, 2275-08, 1987-09, 2142-10 ####[facility] LABIA [id number] [place] [id number] [place] CNOVSPon 11-04-2023 CNOVSP Normal [facility] CNPNon 11-01-2023 CNPN Normal [facility] US FEMALE PELVIS TRANSVAGon 10-31-2023 US FEMALE PELVIS TRANSVAG * * *Final Report* * * DATE OF EXAM: Oct 31 2023 8:58AM U 1060 - US FEMALE PELVIS TRANSVAG / PROCEDURE REASON: R10.2-Pelvic pain in female * * * * Physician Interpretation * * * * EXAMINATION: TRANSVAGINAL AND LIMITED TRANSABDOMINAL FEMALE PELVIC ULTRASOUND CLINICAL HISTORY: Pelvic pain and female TECHNIQUE: Sonography of the pelvis was performed by transvaginal and transabdominal (limited) techniques. Images were obtained and stored in a permanent archive. MQ: [facility]2021 COMPARISON: None RESULT: Uterus: -Size: 9.9 x 7.0 x 4.8 cm -Orientation: Anteverted -Endometrial echo complex: Evaluation of the endometrium was adequate. No endometrial abnormality. The endometrial echo complex measured 0.8 cm. -Cervix: Nabothian cysts are present the largest measuring up to 11 mm with some complexity. 3 mm uterine calcification adjacent to the canal. -Adenomyosis assessment: There are no sonographic findings of adenomyosis. -Fibroids: There are no fibroids. Right Ovary: 3.0 x 3.5 x 1.9 cm - Normal sonographic appearance with physiologic follicles. Left Ovary: 3.1 x 3.5 x 2.5 cm - Normal sonographic appearance with physiologic follicles. Free Fluid: No abnormal free fluid is present. IMPRESSION: No acute abnormality Drying Tumbler Operator: [employer] Transcribe Date/Time: Nov 03 2023 8:12A Dictated by : ISABEL FOLEY MD This examination was interpreted and the report reviewed and electronically signed by: ISABEL FOLEY MD on Nov 03 2023 8:15AM EST [id number] [facility] CNOVon 10-28-2023 CNOV Normal [facility] CNPNon 10-27-2023 CNPN Normal [facility] CNOVon 10-26-2023 CNOV Normal [facility] CNPNon 10-26-2023 CNPN Normal [facility] XR Cervical spine AP and Lat eral and obliqueon 10-25-2023 IMPRESSION: Negative cervical spine X-ray. Drying Tumbler Operator: [facility] Transcribe Date/Time: Oct 25 2023 9:31A Dictated by : LINDA MARTINEZ MD This examination was interpreted and the report reviewed and electronically signed by: LINDA MARTINEZ MD on Oct 25 2023 9:32AM EST DIVISION OF RADIOLOGY * * *Final Report* * * DATE OF EXAM: Oct 21 2023 3:51PM WOX 5311 - XR CERVICAL 4V AP/LAT/OBL / PROCEDURE REASON: multiple diagnoses * * * * Physician Interpretation * * * * EXAM TITLE: XR CERVICAL 4V AP/LAT/OBL EXAM DATE/TIME: 10/21/2023 3:51 PM COMPARISON: None. CLINICAL INDICATION/HISTORY: Radiculopathy. TECHNIQUE: AP, lateral, oblique and swimmer's views of the cervical spine are presented. FINDINGS: No fractures or subluxations are noted. The disc spaces are well preserved. There is no significant osteophyte formation. The neural foramina are patent. The prevertebral soft tissues are normal. Others: Questionable round opacity overlying the right maxillary sinus. DIVISION OF RADIOLOGY Provider, [facility] - 10/25/2023 * * *Final Report* * * DATE OF EXAM: Oct 21 2023 3:51PM WOX 5311 - XR CERVICAL 4V AP/LAT/OBL / PROCEDURE REASON: multiple diagnoses * * * * Physician Interpretation * * * * EXAM TITLE: XR CERVICAL 4V AP/LAT/OBL EXAM DATE/TIME: 10/21/2023 3:51 PM COMPARISON: None. CLINICAL INDICATION/HISTORY: Radiculopathy. TECHNIQUE: AP, lateral, oblique and swimmer's views of the cervical spine are presented. FINDINGS: No fractures or subluxations are noted. The disc spaces are well preserved. There is no significant osteophyte formation. The neural foramina are patent. The prevertebral soft tissues are normal. Others: Questionable round opacity overlying the right maxillary sinus. IMPRESSION IMPRESSION: Negative cervical spine X-ray. Drying Tumbler Operator: [employer]IN[employer] Transcribe Date/Time: Oct 25 2023 9:31A Dictated by : LINDA MARTINEZ MD This examination was interpreted and the report reviewed and electronically signed by: LINDA MARTINEZ MD on Oct 25 2023 9:32AM EST [facility] XR Cervical spine AP and Lat eral and obliqueOrdered By: Ccf Provider on 10-25-2023 [facility] CNPNon 10-24-2023 CNPN Normal [facility] CNOVon 10-21-2023 CNOV Normal [facility] XR CERVICAL 4V AP/LAT/OBLon 10-21-2023 XR CERVICAL 4V AP/LAT/OBL Normal [facility] XR Cervical spine AP and Lat eral and obliqueon 10-21-2023 Radiology Study observation (narrative) [facility] CBC W Auto Differential pane l (Bld)on 09-09-2023 Basophils (Bld) [#/Vol] 0.13 10*3/uL High [facility] Basophils/100 WBC (Bld) 1.0 % [facility] Differential cell count method Nom (Bld) Auto [facility] Eosinophils (Bld) [#/Vol] 0.55 10*3/uL High [facility] Eosinophils/100 WBC (Bld) 4.2 % [facility] Erythrocyte distribution width (RBC) [Ratio] 14.4 % 11.5 - 15.0 % [facility] Hematocrit (Bld) [Volume fraction] 39.9 % 36.0 - 46.0 % [facility] Hemoglobin (Bld) [Mass/Vol] 12.4 g/dL 11.5 - 15.5 g/dL [facility] Immature granulocytes (Bld) [#/Vol] 0.05 10*3/uL [facility] Immature granulocytes/100 WBC (Bld) 0.4 % [facility] Interpretation and review of laboratory results Abnormal [facility] Lymphocytes (Bld) [#/Vol] 3.86 10*3/uL [facility] Lymphocytes/100 WBC (Bld) 29.5 % [facility] MCH (RBC) [Entitic mass] 25.7 pg Low 26.0 - 34.0 pg [facility] MCHC (RBC) [Mass/Vol] 31.1 g/dL 30.5 - 36.0 g/dL [facility] MCV (RBC) [Entitic vol] 82.6 fL 80.0 - 100.0 fL [facility] Monocytes (Bld) [#/Vol] 1.05 10*3/uL High [facility] Monocytes/100 WBC (Bld) 8.0 % [facility] Neutrophils (Bld) [#/Vol] 7.43 10*3/uL [facility] Neutrophils/100 WBC (Bld) 56.9 % [facility] Nucleated RBC (Bld) [#/Vol] [facility] Nucleated RBC/100 WBC (Bld) [Ratio] 0.0 % /100 WBC [facility] Platelet mean volume (Bld) [Entitic vol] 10.7 fL 9.0 - 12.7 fL [facility] Platelets (Bld) [#/Vol] 523 10*3/uL High [facility] RBC (Bld) [#/Vol] 4.83 10*6/uL 3.90 - 5.2 0 m/uL [facility] WBC (Bld) [#/Vol] 13.07 10*3/uL High [facility] XR Chest PA and Lateralon IMPRESSION: No acute radiographic abnormality. Drying Tumbler Operator: PSC[employer] Transcribe Date/Time: Sep 09 2023 4:38P Dictated by : LINDA MARTINEZ MD This examination was interpreted and the report reviewed and electronically signed by: LINDA MARTINEZ MD on Sep 09 2023 4:39PM [facility] DIVISION OF RADIOLOGY * * *Final Report* * * DATE OF EXAM: Sep 09 2023 4:10PM WOX 5291 - XR CHEST 2V FRONTAL/LAT / PROCEDURE REASON: Palpitations * * * * Physician Interpretation * * * * EXAMINATION: CHEST RADIOGRAPH (2 VIEW FRONTAL & LATERAL) CLINICAL HISTORY: Palpitations MQ: XC2_6 EXAM DATE/TIME: 09/09/2023 4:10 PM COMPARISON: Chest x-ray on 01/22/2022 RESULT: Lines, tubes, and devices: None. Lungs and pleura: No consolidation. No lung mass. No pleural effusion. No pneumothorax. Cardiomediastinal silhouette: Normal cardiomediastinal silhouette. Bones and soft tissues: Unremarkable. DIVISION OF RADIOLOGY Provider, [facility] - 09/09/2023 * * *Final Report* * * DATE OF EXAM: Sep 09 2023 4:10PM WOX 5291 - XR CHEST 2V FRONTAL/LAT / PROCEDURE REASON: Palpitations * * * * Physician Interpretation * * * * EXAMINATION: CHEST RADIOGRAPH (2 VIEW FRONTAL & LATERAL) CLINICAL HISTORY: Palpitations MQ: XC2_6 EXAM DATE/TIME: 09/09/2023 4:10 PM COMPARISON: Chest x-ray on 01/22/2022 RESULT: Lines, tubes, and devices: None. Lungs and pleura: No consolidation. No lung mass. No pleural effusion. No pneumothorax. Cardiomediastinal silhouette: Normal cardiomediastinal silhouette. Bones and soft tissues: Unremarkable. IMPRESSION IMPRESSION: No acute radiographic abnormality. Drying Tumbler Operator: PSCB Transcribe Date/Time: Sep 09 2023 4:38P Dictated by : LINDA MARTINEZ MD This examination was interpreted and the report reviewed and electronically signed by: LINDA MARTINEZ MD on Sep 09 2023 4:39PM EST [facility] Radiology Study observation (narrative) [facility] XR Chest PA and LateralOrder ed By: Ccf Provider on 09-09-2023 [facility] CBC W Auto Differential pane l (Bld)on 08-04-2023 Basophils (Bld) [#/Vol] 0.07 10*3/uL <0.11 k/uL [facility] Basophils/100 WBC (Bld) 0.7 % [facility] Differential cell count method Nom (Bld) Auto [facility] Eosinophils (Bld) [#/Vol] 0.35 10*3/uL <0.46 k/uL [facility] Eosinophils/100 WBC (Bld) 3.5 % [facility] Erythrocyte distribution width (RBC) [Ratio] 13.4 % 11.5 - 15.0 % [facility] Hematocrit (Bld) [Volume fraction] 42.3 % 36.0 - 46.0 % [facility] Hemoglobin (Bld) [Mass/Vol] 13.4 g/dL 11.5 - 15.5 g/dL [facility] Immature granulocytes (Bld) [#/Vol] 0.03 10*3/uL <0.10 k/uL [facility] Immature granulocytes/100 WBC (Bld) 0.3 % [facility] Lymphocytes (Bld) [#/Vol] 3.33 10*3/uL 1.00 - 4.00 k/uL [facility] Lymphocytes/100 WBC (Bld) 33.0 % [facility] MCH (RBC) [Entitic mass] 25.7 pg Low 26.0 - 34.0 pg [facility] MCHC (RBC) [Mass/Vol] 31.7 g/dL 30.5 - 36.0 g/dL [facility] MCV (RBC) [Entitic vol] 81.2 fL 80.0 - 100.0 fL [facility] Monocytes (Bld) [#/Vol] 0.53 10*3/uL <0.87 k/uL [facility] Monocytes/100 WBC (Bld) 5.2 % [facility] Neutrophils (Bld) [#/Vol] 5.79 10*3/uL 1.45 - 7.50 k/uL [facility] Neutrophils/100 WBC (Bld) 57.3 % [facility] Nucleated RBC (Bld) [#/Vol] <0.01 k/uL [facility] Nucleated RBC/100 WBC (Bld) [Ratio] 0.0 /100 WBC [facility] Platelet mean volume (Bld) [Entitic vol] 10.5 fL 9.0 - 12.7 fL [facility] Platelets (Bld) [#/Vol] 479 10*3/uL High 150 - 400 k/uL [facility] RBC (Bld) [#/Vol] 5.21 10*6/uL High 3.90 - 5.2 0 m/uL [facility] WBC (Bld) [#/Vol] 10.10 10*3/uL 3.70 - 11 .00 k/uL [facility] XR Knee - right 4 Viewson IMPRESSION: No acute abnormality. Drying Tumbler Operator: [employer] Transcribe Date/Time: Jul 08 2023 1:10P Dictated by : ISABEL FOLEY MD This examination was interpreted and the report reviewed and electronically signed by: ISABEL FOLEY MD on Jul 08 2023 1:11PM [facility] DIVISION OF RADIOLOGY * * *Final Report* * * DATE OF EXAM: Jul 06 2023 3:28PM WOX 5203 - XR KNEE 4V AP/PA BOTH+LAT/JAN RT / PROCEDURE REASON: Acute pain of right knee * * * * Physician Interpretation * * * * PROCEDURE: Right knee INDICATION: Acute pain of right knee .Anterior right knee pain x 3 days following a twisting injury TECHNIQUE: XR KNEE 4V AP/PA BOTH+LAT/JAN RT COMPARISON: 01/02/2020 FINDINGS: Mild lateral patellar tilt, unchanged. Joint spaces are maintained. No fracture or dislocation. No joint effusion. DIVISION OF RADIOLOGY [facility] * * *Final Report* * * DATE OF EXAM: Jul 06 2023 3:28PM WOX 5203 - XR KNEE 4V AP/PA BOTH+LAT/JAN RT / PROCEDURE REASON: Acute pain of right knee * * * * Physician Interpretation * * * * PROCEDURE: Right knee INDICATION: Acute pain of right knee .Anterior right knee pain x 3 days following a twisting injury TECHNIQUE: XR KNEE 4V AP/PA BOTH+LAT/JAN RT COMPARISON: 01/02/2020 FINDINGS: Mild lateral patellar tilt, unchanged. Joint spaces are maintained. No fracture or dislocation. No joint effusion. IMPRESSION IMPRESSION: No acute abnormality. Drying Tumbler Operator: [facility] Transcribe Date/Time: Jul 08 2023 1:10P Dictated by : ISABEL FOLEY MD This examination was interpreted and the report reviewed and electronically signed by: ISABEL FOLEY MD on Jul 08 2023 1:11PM EST [facility] XR Knee - right 4 ViewsOrder ed By: Ccf Provider on 07-08-2023 [facility] XR Knee - right 4 Viewson Radiology Study observation (narrative) [facility] EGD DIAGNOSTICon 06-16-2023 [facility] XR Shoulder - right 3 Viewso n 06-03-2023 IMPRESSION: Negative 3 views of the right shoulder. Drying Tumbler Operator: [facility] Transcribe Date/Time: Jun 03 2023 4:52P Dictated by : LINDA MARTINEZ MD This examination was interpreted and the report reviewed and electronically signed by: LINDA MARTINEZ MD on Jun 03 2023 4:53PM [facility] DIVISION OF RADIOLOGY * * *Final Report* * * DATE OF EXAM: Jun 03 2023 3:12PM WOX 5253 - XR SHLDR >/=3V AP/MOHAN AP/OTHR RT / PROCEDURE REASON: Acute pain of right shoulder * * * * Physician Interpretation * * * * EXAM TITLE: XR SHLDR >/=3V AP/MOHAN AP/OTHR RT EXAM DATE/TIME: 06/03/2023 3:12 PM COMPARISON: None. CLINICAL INDICATION/HISTORY: Acute shoulder pain. TECHNIQUE: AP, true AP and Y views of the right shoulder are presented FINDINGS: No fractures or subluxations are noted. The acromioclavicular and glenohumeral joint spaces are well preserved. No obvious osteophyte formation. Normal acromiohumeral interval. The mineralization of the bones is normal. There is no significant soft tissue swelling. DIVISION OF RADIOLOGY Provider, [facility] - 06/03/2023 * * *Final Report* * * DATE OF EXAM: Jun 03 2023 3:12PM WOX 5253 - XR SHLDR >/=3V AP/MOHAN AP/OTHR RT / PROCEDURE REASON: Acute pain of right shoulder * * * * Physician Interpretation * * * * EXAM TITLE: XR SHLDR >/=3V AP/MOHAN AP/OTHR RT EXAM DATE/TIME: 06/03/2023 3:12 PM COMPARISON: None. CLINICAL INDICATION/HISTORY: Acute shoulder pain. TECHNIQUE: AP, true AP and Y views of the right shoulder are presented FINDINGS: No fractures or subluxations are noted. The acromioclavicular and glenohumeral joint spaces are well preserved. No obvious osteophyte formation. Normal acromiohumeral interval. The mineralization of the bones is normal. There is no significant soft tissue swelling. IMPRESSION IMPRESSION: Negative 3 views of the right shoulder. Drying Tumbler Operator: PSCB Transcribe Date/Time: Jun 03 2023 4:52P Dictated by : LINDA MARTINEZ MD This examination was interpreted and the report reviewed and electronically signed by: LINDA MARTINEZ MD on Jun 03 2023 4:53PM EST [facility] Radiology Study observation (narrative) [facility] XR Shoulder - right 3 ViewsO rdered By: Ccf Provider on 06-03-2023 [facility] UA DIP, URINE (POC)on 2022 BILIRUBIN UA (POCT) Negative Negative [facility] CLARITY UA (POCT) Clear [facility] COLOR UA (POCT) Yellow [facility] GLUCOSE UA (POCT) Negative Negative mg/dL [facility] Hemoglobin Ql (U) Trace-intact Abnormal Negative [facility] KETONE UA (POCT) Negative Negative mg/dL [facility] LEUKOCYTES UA (POCT) Negative Negative [facility] NITRITE UA (POCT) Negative Negative [facility] PH UA (POCT) 6.0 4.5 - 8.0 [facility] Protein Ql (U) Negative Negative mg/dL [facility] SPECIFIC GRAVITY UA (POCT) >=1.030 1.005 - 1.030 [facility] UROBILINOGEN UA (POCT) 0.2 E.U./dL Normal E.U./dL [facility] STOOL GASTRONTESTINAL PANEL BY PCR [CCL]on 11-19-2022 STOOL GASTRONTESTINAL PANEL BY PCR [CCL] Normal [facility] Comment on above: Result Comment: _STO OL GASTROINTESTINAL PANEL BY PCR_ SEE ATTACHMENT Performed By: #### 2 [id number] #### [facility],[address] [place] [address] CBC W Auto Differential pane l (Bld)on 11-12-2022 Basophils (Bld) [#/Vol] 0.09 10*3/uL <0.11 k/uL [facility] Basophils/100 WBC (Bld) 0.7 % [facility] Differential cell count method Nom (Bld) Auto [facility] Eosinophils (Bld) [#/Vol] 0.65 10*3/uL High <0.46 k/uL [facility] Eosinophils/100 WBC (Bld) 5.3 % [facility] Erythrocyte distribution width (RBC) [Ratio] 13.8 % 11.5 - 15.0 % [facility] Hematocrit (Bld) [Volume fraction] 45.6 % 36.0 - 46.0 % [facility] Hemoglobin (Bld) [Mass/Vol] 14.3 g/dL 11.5 - 15.5 g/dL [facility] Immature granulocytes (Bld) [#/Vol] 0.08 10*3/uL <0.10 k/uL [facility] Immature granulocytes/100 WBC (Bld) 0.7 % [facility] Lymphocytes (Bld) [#/Vol] 2.55 10*3/uL 1.00 - 4.00 k/uL [facility] Lymphocytes/100 WBC (Bld) 20.7 % [facility] MCH (RBC) [Entitic mass] 26.0 pg 26.0 - 34.0 pg [facility] MCHC (RBC) [Mass/Vol] 31.4 g/dL 30.5 - 36.0 g/dL [facility] MCV (RBC) [Entitic vol] 82.8 fL 80.0 - 100.0 fL [facility] Monocytes (Bld) [#/Vol] 0.66 10*3/uL <0.87 k/uL [facility] Monocytes/100 WBC (Bld) 5.4 % [facility] Neutrophils (Bld) [#/Vol] 8.26 10*3/uL High 1.45 - 7.50 k/uL [facility] Neutrophils/100 WBC (Bld) 67.2 % [facility] Nucleated RBC (Bld) [#/Vol] <0.01 k/uL [facility] Nucleated RBC/100 WBC (Bld) [Ratio] 0.0 /100 WBC [facility] Platelet mean volume (Bld) [Entitic vol] 10.2 fL 9.0 - 12.7 fL [facility] Platelets (Bld) [#/Vol] 583 10*3/uL High 150 - 400 k/uL [facility] RBC (Bld) [#/Vol] 5.51 10*6/uL High 3.90 - 5.2 0 m/uL [facility] WBC (Bld) [#/Vol] 12.29 10*3/uL High 3.70 - 11 .00 k/uL [facility] VITAMIN D 25 HYDROXYon 11-12 25-hydroxyvitamin D3 [Mass/Vol] 22.6 ng/mL Low 31.0 - 80.0 ng/mL [facility] C DIFF COMPLETEon 11-09-2022 C DIFF COMPLETE C DIFF COMPLETE 0{ C-DIFF TOXIN _NEGATIVE__ (NRL: NEGATIVE ) 11/09/22.1651.HEM. C-DIFF AG NEGATIVE INTERNAL NEG QC PASS INTERNAL POS QC PASS EXTERNAL QC DONE? YES INTERPRETATION: POSITIVE Ag,POSITIVE Tox = C. Diff is present & producing toxins POSITIVE Ag,NEGATIVE Tox = C. Diff is present NEGATICE Ag,NEGATICE Tox = C. Diff is not present A low percentage of specimens may test negative for antigen but positive for toxin. A fresh specimen should be resumbitted for retesting. Normal [facility] Comment on above: Performed By: #### 2 [id number] #### [facility],[address] [place] [address] CBC + DIFFon 11-09-2022 Baso # 0.10 x10EE3/UL Normal 0.00 - 0.[address] [facility] Comment on above: Performed By: #### 2 [id number] #### [facility],[address] [place] [address] Basophils/100 WBC (Bld) 0.7 % Normal 0.0 - 2.[address] [facility] Comment on above: Performed By: #### 2 68717 #### [facility],[address] [place] [address] CBC + DIFF Normal [facility] Comment on above: Result Comment: CBC- COMPLETE BLOOD COUNT Performed By: #### 2 28154 #### [place] [address] EO # 0.70 x10EE3/UL High 0.00 - 0.[address] [facility] Comment on above: Performed By: #### 2 80087 #### [place] [address] Eosinophils/100 WBC (Bld) 3.5 % Normal 0.0 - 7.[address] [facility] Comment on above: Performed By: #### 2 83339 #### [place] [address] Erythrocyte distribution width (RBC) [Ratio] 13.5 % Normal 12.0 - 15.[address] [facility] Comment on above: Performed By: #### 2 51709 #### [facility],[address] [place] [address] Hematocrit (Bld) [Volume fraction] 42.1 % Normal 34.0 - 46.[address] [facility] Comment on above: Performed By: #### 2 94043 #### [place] [address] Hemoglobin (Bld) [Mass/Vol] 13.6 g/dL Normal 12.0 - 16.[address] [facility] Comment on above: Performed By: #### 2 69961 #### [facility],[address] [place] [address] Lymph # 2.40 x10EE3/UL Normal 0.80 - 2.[address] [facility] Comment on above: Performed By: #### 2 91993 #### [facility],[address] [place] [address] Lymphocytes/100 WBC (Bld) 12.7 % Low 20.0 - 45.[address] [facility] Comment on above: Performed By: #### 2 97759 #### [facility],[address] [place] [address] MANUAL DIFF N/A Normal [facility] Comment on above: Performed By: #### 2 54161 #### [facility],[address] [place] [address] MCH (RBC) [Entitic mass] 26 pg Low 27 - [address] [facility] Comment on above: Performed By: #### 2 66891 #### [facility],[address] [place] [address] MCHC 32 X10 3 Normal 32 - [address] [facility] Comment on above: Performed By: #### 2 29402 #### [facility],[address] [place] [address] MCV (RBC) [Entitic vol] 79 fL Low 80 - [address] [facility] Comment on above: Performed By: #### 2 29912 #### [facility],[address] [place] [address] [place] # 1.00 x10EE3/UL Normal 0.20 - 1.[address] [facility] Comment on above: Performed By: #### 2 76038 #### [facility],[address] [place] [address] MONOS % 5.4 % Normal 0.0 - 10.[address] [facility] Comment on above: Performed By: #### 2 09708 #### [facility],[address] [place], [place] [address] Morphology Pan (Bld) [Interp] N/A Normal [facility] Comment on above: Performed By: #### 2 44651 #### [facility],[address] [place] [address] Neut # 14.80 x10EE3/UL High 1.50 - 7.[address] [facility] Comment on above: Performed By: #### 2 58687 #### [facility],[address] [place] [address] Neutrophils/100 WBC (Bld) 77.7 % High 46.0 - 76.[address] [facility] Comment on above: Performed By: #### 2 55287 #### [facility],[address] [place] [address] PLATELET 530 x10EE3/UL High 150 - [address] [facility] Comment on above: Performed By: #### 2 30245 #### [facility],[address] [place] [address] Platelet mean volume (Bld) [Entitic vol] 8.2 fL Normal 6.6 - 10.[address] [facility] Comment on above: Result Comment: AUTO MATED DIFFERENTIAL Performed By: #### 2 02112 #### [facility],[address] [place] [address] RBC 5.31 x 10EE6/UL High 4.10 - 5.[address] [facility] Comment on above: Performed By: #### 2 53312 #### [facility],[address] [place] [address] WBC 19.0 x 10EE3/UL High 4.5 - 10.[address] [facility] Comment on above: Performed By: #### 2 55199 #### [facility],[address] [place] [address] CMP with eGFRon 11-09-2022 AGE 32 years Normal [facility] Comment on above: Performed By: #### 2 22636 #### [facility],[address] [place] [address]94 Albumin [Mass/Vol] 3.9 g/dL Normal 3.4 - 5.[address] [facility] Comment on above: Performed By: #### 2 38488 #### [facility],[address] [place] [address] Albumin/Globulin [Mass ratio] 1.0 {ratio} Normal 0.9 - 1.[address] [facility] Comment on above: Performed By: #### 2 79110 #### [facility],[address] [place] [address] ALK PHOS 87 U/L Normal 46 - [address] [facility] Comment on above: Performed By: #### 2 74990 #### [facility],[address] [place] [address] 32799 ALT [Catalytic activity/Vol] 37 U/L Normal 14 - [address] [facility] Comment on above: Performed By: #### 2 42367 #### [facility],[address] [place] [address] Anion gap [Moles/Vol] 17 mmol/L Normal 10 - 20 [facility] Comment on above: Performed By: #### 2 44428 #### [facility],[address] [place] [address] 81531 AST [Catalytic activity/Vol] 23 U/L Normal 13 - [address] [facility] Comment on above: Performed By: #### 2 36311 #### [facility],[address] [place] [address] B/C RATIO 22 ratio Normal 0 - [address] [facility] Comment on above: Performed By: #### 2 47200 #### [facility],[address] [place] [address] Bilirubin [Mass/Vol] 0.4 mg/dL Normal 0.2 - 1.[address] [facility] Comment on above: Performed By: #### 2 43135 #### [facility],[address] [place] [address]95 Calcium [Mass/Vol] 9.1 mg/dL Normal 8.5 - 10.[address] [facility] Comment on above: Performed By: #### 2 20063 #### [facility],[address] [place] [address] 11722 Chloride [Moles/Vol] 102 mmol/L Normal 98 - [address] [facility] Comment on above: Performed By: #### 2 72442 #### [facility],[address] [place] [address]12 CMP with eGFR Normal [facility] Comment on above: Result Comment: COMP REHENSIVE METABOLIC PANEL Performed By: #### 2 59736 #### [facility],[address] [place] [address]361 CO2 [Moles/Vol] 23.7 mmol/L Normal 21.0 - 32.[address] [facility] Comment on above: Performed By: #### 2 67881 #### [facility],[address] [place] [address] 19152 Creatinine [Mass/Vol] 0.68 mg/dL Normal 0.55 - 1.02 [facility] Comment on above: Performed By: #### 2 65868 #### [facility],[address] [place] [address] GFR/1.73 sq M.predicted among non-blacks MDRD (S/P/Bld) [Vol rate/Area] mL/min/{1.73_m2} Normal 60 - [address] [facility] Comment on above: Performed By: #### 2 13256 #### [facility],[address] [place] [address] Result Comment: ACCO RDING TO THE NATIONAL KIDNEY DISEASE EDUCATION PROGRAM(NKDE), A NORMAL eGFR IS A VALUE GREATER THAN OR EQUAL TO 60 ML/MIN/1.73 SQ METERS. CHRONIC KIDNEY DISEASE: <60mL/MIN/1.73 SQ METERS KIDNEY FAILURE: <15mL/MIN/1.73 SQ METERS THIS TEST SHOULD ONLY BE USED FOR PATIENTS 18 YEARS OF AGE AND OLDER. Globulin (S) [Mass/Vol] 4.0 g/dL High 1.5 - 3.[address] [facility] Comment on above: Performed By: #### 2 53036 #### [facility],[address] [place] [address] Glucose [Mass/Vol] 94 mg/dL Normal 74 - [address] [facility] Comment on above: Performed By: #### 2 91342 #### [facility],[address] [place] [address] 69545 Potassium [Moles/Vol] 3.9 mmol/L Normal 3.5 - 5.1 [facility] Comment on above: Performed By: #### 2 62765 #### [facility],[address] [place] [address] 33042 Protein [Mass/Vol] 7.9 g/dL Normal 6.4 - 8.[address] [facility] Comment on above: Performed By: #### 2 41029 #### [address] [address] Sodium [Moles/Vol] 139 mmol/L Normal 136 - [address] [facility] Comment on above: Performed By: #### 2 23980 #### [address] [address] Urea nitrogen [Mass/Vol] 15 mg/dL Normal 7 - [address] [facility] Comment on above: Performed By: #### 2 60878 #### [address] [address] [address] ABDOMEN/PELVIS [facility] 2022 CT ABDOMEN/PELVIS [place] [address] Patient: MARIA ELENA GARAY Phone#: : 1990 Age: 32 Gender: F Pt. Type: ER Account: [id number] Location: 052 Ordering: DR. KATHERINE MYRICK Exam Date: 11/09/2022/14:23 Family Phys: JES FUENTES Charge Code: 168155 Physician: [place] Order #: [id number] Dose#: PROCEDURE: CT ABDOMEN/PELVIS WITH CONTRAST COMPARISON: None. INDICATIONS: Abdominal pain. TECHNIQUE: After obtaining the patient's consent, CT images were created with non-ionic intravenous contrast material. All CT scans at this facility use dose modulation, iterative reconstruction, and/or weight based dosing when appropriate to reduce radiation dose to as low as reasonably achievable. IV CONTRAST: Omnipaque 350,80ml TOTAL DOSE: CTDIvol(mGy) FINDINGS: LIVER: Liver is diffusely decreased in attenuation, consistent with diffuse fatty infiltration. BILIARY: Gallbladder is absent PANCREAS: Normal. No lesion, fluid collection, ductal dilatation, or atrophy. SPLEEN: Normal. No enlargement or focal lesion. KIDNEYS: Kidneys enhance and excrete contrast symmetrically. No hydronephrosis. ADRENALS: Normal. No mass or enlargement. AORTA/VASCULAR: No aortic aneurysm. RETROPERITONEUM: Normal. No mass or adenopathy. BOWEL/MESENTERY: No bowel obstruction or dilatation. No significant stool burden. The appendix is not visualize, surgical clip adjacent to the cecum, correlate with surgical history. ABDOMINAL WALL: Normal. No mass or hernia. URINARY BLADDER: Normal. No visible focal wall thickening, lesion, or calculus. PELVIC NODES: Normal. No adenopathy. PELVIC ORGANS: Uterus is present. No adnexal mass. BONES: Normal. No bony lesion or fracture. LUNG BASES: Dependent changes at the lung bases. OTHER: Negative. Continued Report - Page 2 of 2 Patient: MARIA ELENA GARAY Phone#: : 1990 Age: 32 Gender: F Pt. Type: ER Account: [id number] Location: 052 Ordering: DR. KATHERINE MYRICK Exam Date: 11/09/2022/14:23 Family Phys: JES FUENTES Charge Code: 045960 Physician: [place] Order #: [id number] Dose#: CONCLUSION: 1. No acute intra-abdominal or pelvic abnormality. Dictated by: Tere Guevara MD on 11/09/2022 at 14:38 Approved by: Tere Guevara MD on 11/09/2022 at 14:[address] [facility] LIPASEon 11-09-2022 Lipase [Catalytic activity/Vol] 43.0 U/L Low 73.0 - [address] [facility] Comment on above: Performed By: #### 2 67659 #### [facility],[address] [place] [address] SERUM QUALon 11-09 EXTERNAL QC DONE? YES Normal [facility] Comment on above: Performed By: #### 2 09170 #### [facility],[address] [place] [address] INTERNAL QC PASS [facility] Comment on above: Performed By: #### 2 63006 #### [facility],[address] [place] [address] SER Negative Normal NEGATIVE [facility] Comment on above: Performed By: #### 2 83122 #### [facility],[address] [place] [address] URINEon 11-09-2022 Beta HCG ( test) Ql (U) Negative Normal NEGATIVE [facility] Comment on above: Performed By: #### 2 06105 #### [facility],[address] [place] [address] EXTERNAL QC DONE? YES Normal [facility] Comment on above: Performed By: #### 2 62638 #### [facility],[address] [place] [address] INTERNAL QC PASS [facility] Comment on above: Performed By: #### 2 03977 #### [facility],[address] [place] [address] CBC W Auto Differential pane l (Bld)on 10-29-2022 Basophils (Bld) [#/Vol] 0.05 10*3/uL <0.11 k/uL [facility] Basophils/100 WBC (Bld) 0.4 % [facility] Differential cell count method Nom (Bld) Auto [facility] Eosinophils (Bld) [#/Vol] 0.86 10*3/uL High <0.46 k/uL [facility] Eosinophils/100 WBC (Bld) 6.9 % [facility] Erythrocyte distribution width (RBC) [Ratio] 14.4 % 11.5 - 15.0 % [facility] Hematocrit (Bld) [Volume fraction] 43.6 % 36.0 - 46.0 % [facility] Hemoglobin (Bld) [Mass/Vol] 13.7 g/dL 11.5 - 15.5 g/dL [facility] Immature granulocytes (Bld) [#/Vol] 0.05 10*3/uL <0.10 k/uL [facility] Immature granulocytes/100 WBC (Bld) 0.4 % [facility] Lymphocytes (Bld) [#/Vol] 2.97 10*3/uL 1.00 - 4.00 k/uL [facility] Lymphocytes/100 WBC (Bld) 23.8 % [facility] MCH (RBC) [Entitic mass] 26.4 pg 26.0 - 34.0 pg [facility] MCHC (RBC) [Mass/Vol] 31.4 g/dL 30.5 - 36.0 g/dL [facility] MCV (RBC) [Entitic vol] 84.0 fL 80.0 - 100.0 fL [facility] Monocytes (Bld) [#/Vol] 0.70 10*3/uL <0.87 k/uL [facility] Monocytes/100 WBC (Bld) 5.6 % [facility] Neutrophils (Bld) [#/Vol] 7.86 10*3/uL High 1.45 - 7.50 k/uL [facility] Neutrophils/100 WBC (Bld) 62.9 % [facility] Nucleated RBC (Bld) [#/Vol] <0.01 k/uL [facility] Nucleated RBC/100 WBC (Bld) [Ratio] 0.0 /100 WBC [facility] Platelet mean volume (Bld) [Entitic vol] 10.7 fL 9.0 - 12.7 fL [facility] Platelets (Bld) [#/Vol] 418 10*3/uL High 150 - 400 k/uL [facility] RBC (Bld) [#/Vol] 5.19 10*6/uL 3.90 - 5.2 0 m/uL [facility] WBC (Bld) [#/Vol] 12.49 10*3/uL High 3.70 - 11 .00 k/uL [facility] Absolute lymphocyte counton 05-26-2022 Lymphocytes Auto (Unsp spec) [#/Vol] 2.67 10*3/uL 0.83-4.51 [facility] Work Phone: Basophil percentageon 2022 Basophils/100 WBC (Bld) 0.5 % 0-1 [facility] Work Phone: Chloride [Moles/Vol] 106 mmol/L 98-107 [facility] Work Phone: Eosinophils/100 WBC (Bld) 3.3 % 0-5 [facility] Work Phone: Glucose [Mass/Vol] 95 mg/dL 74-106 [facility] Work Phone: Neutrophils (Bld) [#/Vol] 8.3 10*3/uL 2.0-7.7 [facility] Work Phone: Neutrophils/100 WBC (Bld) 67.3 % 47-70 [facility] Work Phone: Potassium [Moles/Vol] 3.6 mmol/L 3.5-5.1 [facility] Work Phone: Sodium [Moles/Vol] 139 mmol/L 136-145 [facility] Work Phone: WBC (Bld) [#/Vol] 12.3 10*3/uL 4.4-11.0 [facility] Work Phone: Beta hCG serum qualon 2022 Beta HCG ( test) Ql Negative [facility] Work Phone: Blood erythrocytes count (nu mber/volume)on 05-26-2022 RBC (Bld) [#/Vol] 4.75 10*6/uL 4.2-5.4 [facility] Work Phone: Blood hemoglobin measurement (mass/volume)on 05-26-2022 Hemoglobin (Bld) [Mass/Vol] 12.8 g/dL 12.0-15.0 [facility] Work Phone: Blood lymphocytes/100 leukoc yteson 05-26-2022 Lymphocytes/100 WBC (Bld) 21.8 % 19-41 [facility] Work Phone: Blood monocytes/100 leukocyt eson 05-26-2022 Monocytes/100 WBC (Bld) 6.8 % 0-10 [facility] Work Phone: Blood platelet mean volumeon 05-26-2022 Platelet mean volume (Bld) [Entitic vol] 10.0 fL 6.2-12.0 [facility] Work Phone: Determination of erythrocyte mean corpuscular volume (MCV)on 05-26-2022 MCV (RBC) [Entitic vol] 81.3 fL 81-99 [facility] Work Phone: Hematocrit Auto (Bld) [Volum e fraction]on 05-26-2022 Hematocrit (Bld) [Volume fraction] 38.6 % 37-47 [facility] Work Phone: Laboratory - Chemistry and C hemistry - challengeon 05-26-2022 CO2 [Moles/Vol] 28.0 mmol/L 21.0-32.0 [facility] Work Phone: Urea nitrogen/Creatinine [Mass ratio] 17.1 mg/mg 10-20 [facility] Work Phone: Laboratory - Hematology and Cell countson 05-26-2022 Erythrocyte distribution width (RBC) [Entitic vol] 39.4 fL 35.1-43.9 [facility] Work Phone: Erythrocyte distribution width (RBC) [Ratio] 13.2 % 11.6-14.6 [facility] Work Phone: Immature granulocytes/100 WBC (Bld) 0.300 % 0.0-0.9 [facility] Work Phone: Comment on above: IG% - Immature Granu locytes (promyelocytes, myelocytes and metamyelocytes) > 1% indicates that a LEFT SHIFT is Present. MCH (RBC) [Entitic mass] 26.9 pg 27.0-32.0 [facility] Work Phone: Nucleated RBC/100 WBC (Bld) [Ratio] 0 % 0-5 [facility] Work Phone: MCHC Auto (RBC) [Mass/Vol]on 05-26-2022 MCHC (RBC) [Mass/Vol] 33.2 g/dL 32-36 [facility] Work Phone: No Panel Informationon 05-26 Estimated Creatinine Clearance Calc 100.55 ml/min [facility] Work Phone: Estimated GFR (MDRD) Amer 124 mL/min >60 [facility] Work Phone: Comment on above: GFR Calc Estimated GFR (MDRD) Non-Af Amer 103 mL/min >60 [facility] Work Phone: Comment on above: Non- GFR Calc Platelets bldon 05-26-2022 Platelets (Bld) [#/Vol] 448 10*3/uL 150-450 [facility] Work Phone: Serum or plasma calcium sravanthi urement (mass/volume)on 05-26-2022 Calcium [Mass/Vol] 9.1 mg/dL 8.5-10.1 [facility] Work Phone: Serum or plasma creatinine m easurement (mass/volume)on 05-26-2022 Creatinine [Mass/Vol] 0.70 mg/dL 0.55-1.02 [facility] Work Phone: Comment on above: The validity of the calculated GFR & GFRAA in patients over 70 years has not been determined. Clinical correlation is essential. Serum or plasma urea nitroge n measurement (mass/volume)on 05-26-2022 Urea nitrogen [Mass/Vol] 12 mg/dL 7-18 [facility] Work Phone: Thin prep Papanicolaou smear with manual screeningon 05-26-2022 Thin prep Papanicolaou smear with manual screening 5 5-15 [facility] Work Phone: XR Foot - bilateral AP and L ateral and obliqueon 04-13-2022 IMPRESSION: Calcaneal enthesophytes. Drying Tumbler Operator: CHINMAY Transcribe Date/Time: Apr 13 2022 8:58A Dictated by : TIMMY MOORE MD This examination was interpreted and the report reviewed and electronically signed by: TIMMY MOORE MD on Apr 13 2022 8:59AM [facility] DIVISION OF RADIOLOGY * * *Final Report* * * DATE OF EXAM: Apr 12 2022 7:44PM WOX [id number] - XR FOOT 3V AP/LAT/OBL JAMES / PROCEDURE REASON: multiple diagnoses * * * * Physician Interpretation * * * * TITLE: XR FOOT 3V AP/LAT/OBL JAMES CLINICAL INDICATION: Foot pain TECHNIQUE: 3 view radiographic study of the bilateral feet COMPARISON: None FINDINGS: Right foot: No acute fracture or dislocation identified. Joint spaces preserved. Plantar and suggestion of miniscule dorsal calcaneal enthesophyte. Left foot: No acute fracture or dislocation identified. Joint spaces preserved. Plantar calcaneal enthesophyte. DIVISION OF RADIOLOGY Provider, [facility] - 04/13/2022 * * *Final Report* * * DATE OF EXAM: Apr 12 2022 7:44PM WOX 5555 - XR FOOT 3V AP/LAT/OBL JAMES / PROCEDURE REASON: multiple diagnoses * * * * Physician Interpretation * * * * TITLE: XR FOOT 3V AP/LAT/OBL JAMES CLINICAL INDICATION: Foot pain TECHNIQUE: 3 view radiographic study of the bilateral feet COMPARISON: None FINDINGS: Right foot: No acute fracture or dislocation identified. Joint spaces preserved. Plantar and suggestion of miniscule dorsal calcaneal enthesophyte. Left foot: No acute fracture or dislocation identified. Joint spaces preserved. Plantar calcaneal enthesophyte. IMPRESSION IMPRESSION: Calcaneal enthesophytes. Drying Tumbler Operator: CHINMAY Transcribe Date/Time: Apr 13 2022 8:58A Dictated by : TIMMY MOORE MD This examination was interpreted and the report reviewed and electronically signed by: ITMMY MOORE MD on Apr 13 2022 8:59AM EST [facility] XR Foot - bilateral AP and L ateral and obliqueOrdered By: [facility] Provider on 04-13-2022 [facility] XR Foot - bilateral AP and L ateral and obliqueon 04-12-2022 Radiology Study observation (narrative) [facility] XR Chest PA and Lateralon IMPRESSION: No acute radiographic abnormality. Drying Tumbler Operator: PSCB Transcribe Date/Time: Jan 22 2022 3:30P Dictated by : LINDA MARTINEZ MD This examination was interpreted and the report reviewed and electronically signed by: LINDA MARTINEZ MD on Jan 22 2022 3:30PM [facility] DIVISION OF RADIOLOGY * * *Final Report* * * DATE OF EXAM: Jan 22 2022 3:26PM WOX 5291 - XR CHEST 2V FRONTAL/LAT / PROCEDURE REASON: multiple diagnoses * * * * Physician Interpretation * * * * EXAMINATION: CHEST RADIOGRAPH (2 VIEW FRONTAL & LATERAL) CLINICAL HISTORY: Palpitations Chest pain, unspecified type MQ: XC2_6 EXAM DATE/TIME: 01/22/2022 3:26 PM COMPARISON: No relevant prior studies available. RESULT: Lines, tubes, and devices: None. Lungs and pleura: No consolidation. No lung mass. No pleural effusion. No pneumothorax. Cardiomediastinal silhouette: Normal cardiomediastinal silhouette. Bones and soft tissues: There are mild degenerative changes in the spine. DIVISION OF RADIOLOGY Provider, [facility] - 01/22/2022 * * *Final Report* * * DATE OF EXAM: Jan 22 2022 3:26PM WOX 5291 - XR CHEST 2V FRONTAL/LAT / PROCEDURE REASON: multiple diagnoses * * * * Physician Interpretation * * * * EXAMINATION: CHEST RADIOGRAPH (2 VIEW FRONTAL & LATERAL) CLINICAL HISTORY: Palpitations Chest pain, unspecified type MQ: XC2_6 EXAM DATE/TIME: 01/22/2022 3:26 PM COMPARISON: No relevant prior studies available. RESULT: Lines, tubes, and devices: None. Lungs and pleura: No consolidation. No lung mass. No pleural effusion. No pneumothorax. Cardiomediastinal silhouette: Normal cardiomediastinal silhouette. Bones and soft tissues: There are mild degenerative changes in the spine. IMPRESSION IMPRESSION: No acute radiographic abnormality. Drying Tumbler Operator: PSCB Transcribe Date/Time: Jan 22 2022 3:30P Dictated by : LINDA MARTINEZ MD This examination was interpreted and the report reviewed and electronically signed by: LINDA MARTINEZ MD on Jan 22 2022 3:30PM EST [facility] Radiology Study observation (narrative) [facility] XR Chest PA and LateralOrder ed By: Ccf Provider on 01-22-2022 [facility] XR Lumbar spine 3 Viewson IMPRESSION: Unremark able lumbar spine X-ray. Drying Tumbler Operator[facility] Transcribe Date/Time: Nov 25 2021 4:18P Dictated by : LINDA MARTINEZ MD This examination was interpreted and the report reviewed and electronically signed by: LINDA MARTINEZ MD on Nov 25 2021 4:19PM EST ZZZ_DO_NOT_ USE_DIVISIO N OF RADIOLOGY * * *Final Report* * * DATE OF EXAM: Nov 25 2021 11:23AM WOX [id number] - XR LUMBAR 3V AP/LAT/L5-S1 / PROCEDURE REASON: multiple diagnoses * * * * Physician Interpretation * * * * EXAM TITLE: XR LUMBAR 3V AP/LAT/L5-S1 EXAM DATE/TIME: 11/25/2021 11:23 AM COMPARISON: X-ray lumbar spine on 01/26/2019 CLINICAL INDICATION/HISTORY: Low back pain. TECHNIQUE: AP, lateral and cone down lateral views of the lumbar spine are presented. FINDINGS: There are five ccv-wxh-yjulqel lumbar vertebrae. No fracture or subluxations are noted. There appears to be mild left-sided curvature. The disc spaces are well preserved. There is no significant osteophyte formation. ZZZ_DO_NOT_ USE_DIVISIO N OF RADIOLOGY Provider, Linda De Leon - 11/25/2021 * * *Final Report* * * DATE OF EXAM: Nov 25 2021 11:23AM WOX [id number] - XR LUMBAR 3V AP/LAT/L5-S1 / PROCEDURE REASON: multiple diagnoses * * * * Physician Interpretation * * * * EXAM TITLE: XR LUMBAR 3V AP/LAT/L5-S1 EXAM DATE/TIME: 11/25/2021 11:23 AM COMPARISON: X-ray lumbar spine on 01/26/2019 CLINICAL INDICATION/HISTORY: Low back pain. TECHNIQUE: AP, lateral and cone down lateral views of the lumbar spine are presented. FINDINGS: There are five jaz-noa-azcmive lumbar vertebrae. No fracture or subluxations are noted. There appears to be mild left-sided curvature. The disc spaces are well preserved. There is no significant osteophyte formation. IMPRESSION IMPRESSION: Unremarkable lumbar spine X-ray. Drying Tumbler Operator: [facility] Transcribe Date/Time: Nov 25 2021 4:18P Dictated by : LINDA MARTINEZ MD This examination was interpreted and the report reviewed and electronically signed by: LINDA MARTINEZ MD on Nov 25 2021 4:19PM EST [facility] Radiology Study observation (narrative) [facility] XR Lumbar spine 3 ViewsOrder ed By: Ccf Provider on 11-25-2021 [facility] US THYROID/PARATHYROIDon [facility] No Panel Informationon 07-21 D-Dimer Quantitative (PE/DVT) < 0.27 FEU/ug/m 0.27-0.49 [facility] Work Phone: Comment on above: NORMAL D-Dimer level (<0.50) indicates no DVT or PE. Absolute lymphocyte counton 07-20-2021 Lymphocytes Auto (Unsp spec) [#/Vol] 2.26 10*3/uL 0.83-4.51 [facility] Work Phone: Basophil percentageon 2021 Chloride [Moles/Vol] 108 mmol/L 98-107 [facility] Work Phone: Glucose [Mass/Vol] 102 mg/dL 74-106 [facility] Work Phone: Comment on above: Fasting Glucose resu lt from 100 to 125 mg/dL suggests IMPAIRED HOMEOSTASIS per A.D.A. criteria. Potassium [Moles/Vol] 4.2 mmol/L 3.5-5.1 [facility] Work Phone: Sodium [Moles/Vol] 137 mmol/L 136-145 [facility] Work Phone: Basophils/100 WBC (Bld) 0.5 % 0-1 [facility] Work Phone: [phone] Eosinophils/100 WBC (Bld) 6.7 % 0-5 [facility] Work Phone: [phone] Neutrophils (Bld) [#/Vol] 9.2 10*3/uL 2.0-7.7 [facility] Work Phone: Neutrophils/100 WBC (Bld) 69.1 % 47-70 [facility] Work Phone: WBC (Bld) [#/Vol] 13.4 10*3/uL 4.4-11.0 [facility] Work Phone: Blood erythrocytes count (nu mber/volume)on 07-20-2021 RBC (Bld) [#/Vol] 5.16 10*6/uL 4.2-5.4 [facility] Work Phone: Blood hemoglobin measurement (mass/volume)on 07-20-2021 Hemoglobin (Bld) [Mass/Vol] 13.9 g/dL 12.0-15.0 [facility] Work Phone: Blood lymphocytes/100 leukoc yteson 07-20-2021 Lymphocytes/100 WBC (Bld) 16.9 % 19-41 [facility] Work Phone: Blood monocytes/100 leukocyt eson 07-20-2021 Monocytes/100 WBC (Bld) 6.4 % 0-10 [facility] Work Phone: Blood platelet mean volumeon 07-20-2021 Platelet mean volume (Bld) [Entitic vol] 10.3 fL 6.2-12.0 [facility] Work Phone: Determination of erythrocyte mean corpuscular volume (MCV)on 07-20-2021 MCV (RBC) [Entitic vol] 82.6 fL 81-99 [facility] Work Phone: Hematocrit Auto (Bld) [Volum e fraction]on 07-20-2021 Hematocrit (Bld) [Volume fraction] 42.6 % 37-47 [facility] Work Phone: Laboratory - Chemistry and C hemistry - challengeon 07-20-2021 CO2 [Moles/Vol] 26.0 mmol/L 21.0-32.0 [facility] Work Phone: Urea nitrogen/Creatinine [Mass ratio] 22.0 mg/mg 10-20 [facility] Work Phone: Laboratory - Hematology and Cell countson 07-20-2021 Erythrocyte distribution width (RBC) [Entitic vol] 40.6 fL 35.1-43.9 [facility] Work Phone: Erythrocyte distribution width (RBC) [Ratio] 13.4 % 11.6-14.6 [facility] Work Phone: Immature granulocytes/100 WBC (Bld) 0.400 % 0.0-0.9 [facility] Work Phone: Comment on above: IG% - Immature Granu locytes (promyelocytes, myelocytes and metamyelocytes) > 1% indicates that a LEFT SHIFT is Present. MCH (RBC) [Entitic mass] 26.9 pg 27.0-32.0 [facility] Work Phone: Nucleated RBC/100 WBC (Bld) [Ratio] 0 % 0-5 [facility] Work Phone: MCHC Auto (RBC) [Mass/Vol]on 07-20-2021 MCHC (RBC) [Mass/Vol] 32.6 g/dL 32-36 [facility] Work Phone: No Panel Informationon 07-20 Estimated Creatinine Clearance Calc 120.40 ml/min [facility] Work Phone: Estimated GFR (MDRD) Amer 153 mL/min >60 [facility] Work Phone: Comment on above: GFR Calc Estimated GFR (MDRD) Non-Af Amer 126 mL/min >60 [facility] Work Phone: Comment on above: Non- GFR Calc Platelets bldon 07-20-2021 Platelets (Bld) [#/Vol] 484 10*3/uL 150-450 [facility] Work Phone: Serum or plasma calcium sravanthi urement (mass/volume)on 07-20-2021 Calcium [Mass/Vol] 9.5 mg/dL 8.5-10.1 [facility] Work Phone: Serum or plasma creatinine m easurement (mass/volume)on 07-20-2021 Creatinine [Mass/Vol] 0.59 mg/dL 0.55-1.02 [facility] Work Phone: Comment on above: The validity of the calculated GFR & GFRAA in patients over 70 years has not been determined. Clinical correlation is essential. Serum or plasma urea nitroge n measurement (mass/volume)on 07-20-2021 Urea nitrogen [Mass/Vol] 13 mg/dL 7-18 [facility] Work Phone: Thin prep Papanicolaou smear with manual screeningon 07-20-2021 Thin prep Papanicolaou smear with manual screening 3 5-15 [facility] Work Phone: NOVEL CORONAVIRUS NASOPHARYN GEAL - [facility] SPECIMEN ONLYon 02-13-2020 SARS-COV-2 NOT DETECTED Normal NOT DETECTED [facility] Comment on above: Order Comment: Viral transport media - Collection must be done while wearing N-95 mask, eye protection, gown and gloves. Please label ALL specimens as 2019-nCoV rule out and deliver by hand. This test was performed using real time PCR and has been approved for the qualitative detection of SARS-CoV-2 nucleic acid. The test has been authorized by the FDA under an emergency use authorization for use by authorized laboratories. Result Comment: Nega tive results do not preclude SARS-CoV-2 infection and should not be used as the sole basis for treatment or other patient management decisions. Optimum specimen types and timing for peak viral levels during infections caused by SARS-CoV-2 has not been determined. The possibility of a false negative result should especially be considered if the patient's recent exposures or clinical presentation suggest that SARS-CoV-2 infection is probable, and diagnostic tests for other causes of illness (e.g., other respiratory illness) are negative. Collection of a new specimen and re-testing may be necessary if the patient is critically ill or clinically deteriorating. Performed By: #### L [id number] #### [facility] (DEFAULT) [address] [address] NOVEL CORONAVIRUS NASOPHARYN GEAL - [facility] SPECIMEN ONLYon 02-06-2020 SARS-COV-2 NOT DETECTED Normal NOT DETECTED [facility] Comment on above: Order Comment: Viral transport media - Collection must be done while wearing N-95 mask, eye protection, gown and gloves. Please label ALL specimens as 2019-nCoV rule out and deliver by hand. This test was performed using real time PCR and has been approved for the qualitative detection of SARS-CoV-2 nucleic acid. The test has been authorized by the FDA under an emergency use authorization for use by authorized laboratories. Result Comment: Nega tive results do not preclude SARS-CoV-2 infection and should not be used as the sole basis for treatment or other patient management decisions. Optimum specimen types and timing for peak viral levels during infections caused by SARS-CoV-2 has not been determined. The possibility of a false negative result should especially be considered if the patient's recent exposures or clinical presentation suggest that SARS-CoV-2 infection is probable, and diagnostic tests for other causes of illness (e.g., other respiratory illness) are negative. Collection of a new specimen and re-testing may be necessary if the patient is critically ill or clinically deteriorating. Performed By: #### L [id number] #### [facility] (DEFAULT) [address] [place] [id number] NOVEL CORONAVIRUS NASOPHARYN GEAL - [facility] SPECIMEN ONLYon 01-30-2020 SARS-COV-2 NOT DETECTED Normal NOT DETECTED [facility] Comment on above: Order Comment: Viral transport media - Collection must be done while wearing N-95 mask, eye protection, gown and gloves. Please label ALL specimens as 2019-nCoV rule out and deliver by hand. This test was performed using real time PCR and has been approved for the qualitative detection of SARS-CoV-2 nucleic acid. The test has been authorized by the FDA under an emergency use authorization for use by authorized laboratories. Result Comment: Nega tive results do not preclude SARS-CoV-2 infection and should not be used as the sole basis for treatment or other patient management decisions. Optimum specimen types and timing for peak viral levels during infections caused by SARS-CoV-2 has not been determined. The possibility of a false negative result should especially be considered if the patient's recent exposures or clinical presentation suggest that SARS-CoV-2 infection is probable, and diagnostic tests for other causes of illness (e.g., other respiratory illness) are negative. Collection of a new specimen and re-testing may be necessary if the patient is critically ill or clinically deteriorating. Performed By: #### L [id number] #### [facility] ([facility]) [address] [place] [address] Office Visiton 02-28-2017 Documentation of current medications (procedure) Done Invalid Interpretation Code [facility] Work Phone: Tobacco smoking status NHIS Never Invalid Interpretation Code [facility] Work Phone: Tobacco use [facility]PH[facility] Never smoker Invalid Interpretation Code [facility] Work Phone: Office Visit: [facility]: left middl e finger painon 02-23-2017 Documentation of current medications (procedure) Done Invalid Interpretation Code [facility] Work Phone: Fall risk assessment No Invalid Interpretation Code [facility] Work Phone: Protein mass conc Done Invalid Interpretation Code [facility] Work Phone: Tobacco smoking status NHIS Never Invalid Interpretation Code [facility] Work Phone: Tobacco smoking status NHIS Never smoker Invalid Interpretation Code [facility] Work Phone: [phone] Tobacco use [facility] Never smoker Invalid Interpretation Code [facility] Work Phone: Office Visit: [facility]: low back p izaiah LOCon 01-27-2017 Documentation of current medications (procedure) Done Invalid Interpretation Code [facility] Work Phone: Fall risk assessment No Invalid Interpretation Code [facility] Work Phone: Tobacco smoking status NHIS Never Invalid Interpretation Code [facility] Work Phone: Tobacco use [facility] Never smoker Invalid Interpretation Code [facility] Work Phone: Vital Signs Date Time Vital Sign Value Performing Clinician Facility 11-07-2024 12:33-0400 Body height 165.[address] Jes Fuentes MD Work Phone: [phone] [place] [address] 11-07-2024 12:33-0400 Body mass index (BMI) [Ratio] 34.4 kg/m2 Dr. Jes Fuentes MD Work Phone: [phone])688-246183 [place] [address] 11-07-2024 12:33-0400 Body weight 93.[address] Jes Fuentes MD Work Phone: [phone])531-759083 [place] [address] 10-24-2024 13:29-0400 Body temperature 97.8 [degF] Dr. Jes Fuentes MD Work Phone: [phone])071-525583 [place] [address] 10-24-2024 13:29-0400 Diastolic blood pressure 68 mm[Hg] Dr. Jes Fuentes MD Work Phone: 2(577)529-243883 [place] [address] 10-24-2024 13:29-0400 Heart rate 70 /min Dr. Jes Fuentes MD Work Phone: [phone])642-749083 [place] [address] 10-24-2024 13:29-0400 Respiratory rate 16 /min Dr. Jes Fuentes MD Work Phone: 0(794)427-206583 [place] [address] 10-24-2024 13:29-0400 SaO2% (BldA) [Mass fraction] 97 % Dr. Jes Fuentes MD Work Phone: [phone])[phone] [place] [address] 10-24-2024 13:29-0400 Systolic blood pressure 117 mm[Hg] Dr. Jes Fuentes MD Work Phone: [phone])666-987783 [place] [address] 10-24-2024 12:15-0400 Body height 165.[address] Jes Fuentes MD Work Phone: [phone])[phone] [place] [address] 10-24-2024 12:15-0400 Body mass index (BMI) [Ratio] 34.1 kg/m2 Dr. Jes Fuentes MD Work Phone: [phone])[phone] [place] [address] 10-24-2024 12:15-0400 Body weight [address] Jes Fuentes MD Work Phone: [facility] 10-18-2024 14:35-0400 Body height 166 cm Chio Ash APRN.UI ARCHITECT Work Phone: [facility] 10-18-2024 14:35-0400 Body mass index (BMI) [Ratio] 34.24 kg/m2 Chio Ash APRN.UI ARCHITECT Work Phone: [facility] 10-18-2024 14:35-0400 Body weight 94.35 kg Chio Ash APRN.UI ARCHITECT Work Phone: [facility] 10-18-2024 14:35-0400 Diastolic blood pressure 89 mm[Hg] Chio Ash APRN.UI ARCHITECT Work Phone: [facility] 10-18-2024 14:35-0400 Heart rate 89 /min Chio Ash APRN.UI ARCHITECT Work Phone: [facility] 10-18-2024 14:35-0400 SaO2% (BldA) [Mass fraction] 98 % Chio Ash APRN.UI ARCHITECT Work Phone: [facility] 10-18-2024 14:35-0400 Systolic blood pressure 142 mm[Hg] Chio Ash APRN.UI ARCHITECT Work Phone: [facility] 08-16-2024 14:22-0400 Body mass index (BMI) [Ratio] 35.95 kg/m2 Germania Dahl APRN.UI ARCHITECT Work Phone: [facility] 08-16-2024 14:22-0400 Body weight 98 kg Germania Dahl APRN.UI ARCHITECT Work Phone: [facility] 08-16-2024 14:22-0400 Diastolic blood pressure 78 mm[Hg] Germania Dahl APRN.UI ARCHITECT Work Phone: [facility] 08-16-2024 14:22-0400 Heart rate 79 /min Germania Dahl APRN.UI ARCHITECT Work Phone: [facility] 08-16-2024 14:22-0400 SaO2% (BldA) [Mass fraction] 100 % Germania Dahl APRN.UI ARCHITECT Work Phone: [facility] 08-16-2024 14:22-0400 Systolic blood pressure 120 mm[Hg] Germania Dahl APRN.UI ARCHITECT Work Phone: [facility] 08-13-2024 17:49-0400 Body temperature 98.1 [degF] Dr. Jes Fuentes MD Work Phone: [facility] 08-13-2024 17:49-0400 Diastolic blood pressure 78 mm[Hg] Dr. Jes Fuentes MD Work Phone: [facility] 08-13-2024 17:49-0400 Heart rate 91 /min Dr. Jes Fuentes MD Work Phone: [facility] 08-13-2024 17:49-0400 Respiratory rate 16 /min Dr. Jes Fuentes MD Work Phone: [facility] 08-13-2024 17:49-0400 SaO2% (BldA) [Mass fraction] 97 % Dr. Jes Fuentes MD Work Phone: [facility] 08-13-2024 17:49-0400 Systolic blood pressure 118 mm[Hg] Dr. Jes Fuentes MD Work Phone: [facility] 08-13-2024 14:32-0400 Body height 165.[address] Jes Fuentes MD Work Phone: [facility] 08-13-2024 14:32-0400 Body mass index (BMI) [Ratio] 36.1 kg/m2 Dr. Jes Fuentes MD Work Phone: [facility] 08-13-2024 14:32-0400 Body weight 98.[address] Jes Fuentes MD Work Phone: [facility] 08-06-2024 10:00-0400 Body temperature 98 [degF] Dr. Jes Fuentes MD Work Phone: [facility] 08-06-2024 10:00-0400 Diastolic blood pressure 87 mm[Hg] Dr. Jes Fuentes MD Work Phone: 4(737)[phone] [place] [address] 08-06-2024 10:00-0400 Heart rate 70 /min Dr. Jes Fuentes MD Work Phone: 2([phone])[phone] [place] [address] 08-06-2024 10:00-0400 Respiratory rate 16 /min Dr. Jes Fuentes MD Work Phone: [phone])[phone] [place] [address] 08-06-2024 10:00-0400 SaO2% (BldA) [Mass fraction] 96 % Dr. Jes Fuentes MD Work Phone: 5(209)[phone] [place] [address] 08-06-2024 10:00-0400 Systolic blood pressure 123 mm[Hg] Dr. Jes Fuentes MD Work Phone: 4(262)439-059083 [place] [address] 08-06-2024 08:13-0400 Body height 165.[address] Jes Fuentes MD Work Phone: 1(647)165-099783 [place] [address] 08-06-2024 08:13-0400 Body mass index (BMI) [Ratio] 35.7 kg/m2 Dr. Jes Fuentes MD Work Phone: 2(840)[phone] [place] [address] 08-06-2024 08:13-0400 Body weight 97.[address] Jes Fuentes MD Work Phone: 0(415)[phone] [place] [address] 08-03-2024 09:14-0400 Diastolic blood pressure 92 mm[Hg] Aruna Hunter Work Phone: [phone])[phone] [place] [address] 08-03-2024 09:14-0400 Systolic blood pressure 139 mm[Hg] Aruna Hunter Work Phone: [facility] 08-03-2024 08:34-0400 Body mass index (BMI) [Ratio] 36.28 kg/m2 Aruna Hunter Work Phone: [facility] 08-03-2024 08:34-0400 Body temperature 99.3 [degF] Aruna Hunter Work Phone: [facility] 08-03-2024 08:34-0400 Body weight 98.88 kg Aruna Hunter Work Phone: [facility] 08-03-2024 08:34-0400 Heart rate 91 /min Aruna Hunter Work Phone: [facility] 08-03-2024 08:34-0400 SaO2% (BldA) [Mass fraction] 99 % Aruna Hunter Work Phone: [facility] 07-20-2024 13:49-0500 Diastolic blood pressure 82 mm[Hg] Infusion 2 Work Phone: [facility] 07-20-2024 13:49-0500 Heart rate 67 /min Infusion 2 Work Phone: [facility] 07-20-2024 13:49-0500 Systolic blood pressure 126 mm[Hg] Infusion 2 Work Phone: [facility] 07-19-2024 15:55-0500 Diastolic blood pressure 76 mm[Hg] Infusion 3 Work Phone: [facility] 07-19-2024 15:55-0500 Heart rate 69 /min Infusion 3 Work Phone: [facility] 07-19-2024 15:55-0500 Systolic blood pressure 126 mm[Hg] Infusion 3 Work Phone: [facility] 07-11-2024 14:18-0500 Body height 165.1 cm Zoraida Rodarte APRN.UI ARCHITECT Work Phone: [facility] 07-11-2024 14:18-0500 Body mass index (BMI) [Ratio] 36.69 kg/m2 Zoraida Rodarte APRN.CNP Work Phone: [facility] 07-11-2024 14:18-0500 Body weight 100 kg Zoraida Rodarte APRN.CNP Work Phone: [facility] 07-11-2024 14:18-0500 Diastolic blood pressure 88 mm[Hg] Zoraida Rodarte 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.UI ARCHITECT Work Phone: [facility] 07-11-2024 14:18-0500 Heart rate 89 /min Zoraida Rodarte 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.UI ARCHITECT Work Phone: [facility] 07-11-2024 14:18-0500 Systolic blood pressure 131 mm[Hg] Zoraidaliyah Rodarte 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.UI ARCHITECT Work Phone: [facility] 07-06-2024 15:14-0500 Body mass index (BMI) [Ratio] 36.51 kg/m2 Liliane Anmol 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.UI ARCHITECT Work Phone: [facility] 07-06-2024 15:14-0500 Body weight 99.52 kg Liliane Anmol 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.UI ARCHITECT Work Phone: [facility] 07-06-2024 15:14-0500 Diastolic blood pressure 85 mm[Hg] Liliane Anmol 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.UI ARCHITECT Work Phone: [facility] 07-06-2024 15:14-0500 Heart rate 80 /min Liliane Anmol 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.UI ARCHITECT Work Phone: [facility] 07-06-2024 15:14-0500 Respiratory rate 18 /min Liliane Anmol 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.UI ARCHITECT Work Phone: [facility] 07-06-2024 15:14-0500 SaO2% (BldA) [Mass fraction] 99 % Liliane Anmol 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.UI ARCHITECT Work Phone: [facility] 07-06-2024 15:14-0500 Systolic blood pressure 128 mm[Hg] Liliane Anmol 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.UI ARCHITECT Work Phone: [facility] 07-03-2024 15:13-0500 Body mass index (BMI) [Ratio] 36.61 kg/m2 Chio Ash 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.UI ARCHITECT Work Phone: [facility] 07-03-2024 15:13-0500 Body weight 99.79 kg Chio Ash APRN.UI ARCHITECT Work Phone: [facility] 07-03-2024 15:13-0500 Diastolic blood pressure 86 mm[Hg] Chio Ash APRN.UI ARCHITECT Work Phone: [facility] 07-03-2024 15:13-0500 Heart rate 99 /min Chio Ash APRN.UI ARCHITECT Work Phone: [facility] 07-03-2024 15:13-0500 SaO2% (BldA) [Mass fraction] 100 % Chio Ash APRN.UI ARCHITECT Work Phone: [facility] 07-03-2024 15:13-0500 Systolic blood pressure 130 mm[Hg] Chio Ahs 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.UI ARCHITECT Work Phone: [facility] 05-15-2024 11:21-0500 Diastolic blood pressure 92 mm[Hg] Ofelia Delaney 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.UI ARCHITECT Work Phone: [facility] 05-15-2024 11:21-0500 Heart rate 94 /min Ofelia Hatomas 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.UI ARCHITECT Work Phone: [facility] 05-15-2024 11:21-0500 Respiratory rate 16 /min Ofelia Delaney 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.UI ARCHITECT Work Phone: [facility] 05-15-2024 11:21-0500 SaO2% (BldA) [Mass fraction] 98 % Ofelia Delaney 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.UI ARCHITECT Work Phone: [facility] 05-15-2024 11:21-0500 Systolic blood pressure 134 mm[Hg] Ofelia Haagen 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.UI ARCHITECT Work Phone: [facility] 05-14-2024 10:18-0500 Body height 165.1 cm Hilda Orellana DO Work Phone: [facility] 05-14-2024 10:18-0500 Body mass index (BMI) [Ratio] 36.58 kg/m2 Hilda Orellana DO Work Phone: [facility] 05-14-2024 10:18-0500 Body weight 99.7 kg Hilda Orellana DO Work Phone: [facility] 05-14-2024 10:18-0500 Diastolic blood pressure 68 mm[Hg] Hilda Orellana DO Work Phone: [facility] 05-14-2024 10:18-0500 Heart rate 92 /min Hilda Orellana DO Work Phone: [facility] 05-14-2024 10:18-0500 SaO2% (BldA) [Mass fraction] 99 % Hilda Orellana DO Work Phone: [facility] 05-14-2024 10:18-0500 Systolic blood pressure 112 mm[Hg] Hilda Orellana DO Work Phone: [facility] 04-27-2024 12:01-0500 Body mass index (BMI) [Ratio] 36.94 kg/m2 Mary Kumar APRN.UI ARCHITECT Work Phone: [facility] 04-27-2024 12:01-0500 Body weight 100.7 kg Mary Kumar APRN.UI ARCHITECT Work Phone: [facility] 04-27-2024 12:01-0500 Diastolic blood pressure 70 mm[Hg] Mary Kumar 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.UI ARCHITECT Work Phone: [facility] 04-27-2024 12:01-0500 Systolic blood pressure 118 mm[Hg] Mary Kumar 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.UI ARCHITECT Work Phone: [facility] 04-18-2024 13:36-0500 Body height 165.1 cm Zoraida Rodarte APRN.UI ARCHITECT Work Phone: [facility] 04-18-2024 13:36-0500 Body mass index (BMI) [Ratio] 37.42 kg/m2 Zoraida Rodarte APRN.UI ARCHITECT Work Phone: [facility] 04-18-2024 13:36-0500 Body weight 102 kg Zoraida Rodarte APRN.UI ARCHITECT Work Phone: [facility] 04-18-2024 13:36-0500 Diastolic blood pressure 76 mm[Hg] Zoraida Rodarte 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.UI ARCHITECT Work Phone: [facility] 04-18-2024 13:36-0500 Heart rate 72 /min Zoraida Rodarte 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.UI ARCHITECT Work Phone: [facility] 04-18-2024 13:36-0500 Systolic blood pressure 128 mm[Hg] Zoraida Rodarte 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.UI ARCHITECT Work Phone: [facility] 03-26-2024 11:45-0500 Body mass index (BMI) [Ratio] 38.39 kg/m2 Danish Hernandez MD Work Phone: [facility] 03-26-2024 11:45-0500 Body weight 104.51 kg Danish Hernandez MD Work Phone: [facility] 03-26-2024 11:45-0500 Diastolic blood pressure 80 mm[Hg] Danish Hernandez MD Work Phone: [facility] 03-26-2024 11:45-0500 Systolic blood pressure 128 mm[Hg] Danish Hernandez MD Work Phone: [facility] 03-21-2024 11:44-0500 Body mass index (BMI) [Ratio] 38.29 kg/m2 Danish Hernandez MD Work Phone: [facility] 03-21-2024 11:44-0500 Body weight 104.24 kg Danish Hernandez MD Work Phone: [facility] 03-21-2024 11:44-0500 Diastolic blood pressure 74 mm[Hg] Danish Hernandez MD Work Phone: [facility] 03-21-2024 11:44-0500 Systolic blood pressure 120 mm[Hg] Danish Hernandez MD Work Phone: [facility] 03-09-2024 11:12-0400 Diastolic blood pressure 86 mm[Hg] Mary Kumar 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.UI ARCHITECT Work Phone: [facility] 03-09-2024 11:12-0400 Systolic blood pressure 130 mm[Hg] Mary Kumar APRN.UI ARCHITECT Work Phone: [facility] 03-09-2024 10:48-0400 Body mass index (BMI) [Ratio] 38.15 kg/m2 Mary Kumar APRN.UI ARCHITECT Work Phone: [facility] 03-09-2024 10:48-0400 Body weight 103.87 kg Mary Kumar APRN.UI ARCHITECT Work Phone: [facility] 02-24-2024 08:10-0400 Body height 165 cm Chio Ash APRN.UI ARCHITECT Work Phone: [facility] 02-24-2024 08:10-0400 Body mass index (BMI) [Ratio] 38.82 kg/m2 Chio Ash APRN.UI ARCHITECT Work Phone: [facility] 02-24-2024 08:10-0400 Body weight 105.69 kg Chio Ash APRN.UI ARCHITECT Work Phone: [facility] 02-24-2024 08:10-0400 Diastolic blood pressure 84 mm[Hg] Chio Ash APRN.UI ARCHITECT Work Phone: [facility] 02-24-2024 08:10-0400 Systolic blood pressure 130 mm[Hg] Chio Ash APRN.UI ARCHITECT Work Phone: [facility] 02-20-2024 14:05-0400 Body temperature 98.2 [degF] Treatment Wstr Work Phone: [facility] 02-20-2024 14:05-0400 Diastolic blood pressure 97 mm[Hg] Treatment Wstr Work Phone: [facility] 02-20-2024 14:05-0400 Heart rate 98 /min Treatment Wstr Work Phone: [facility] 02-20-2024 14:05-0400 SaO2% (BldA) [Mass fraction] 98 % Treatment Wstr Work Phone: [facility] 02-20-2024 14:05-0400 Systolic blood pressure 153 mm[Hg] Treatment Wstr Work Phone: [facility] 02-13-2024 14:50-0400 Body temperature 98.1 [degF] Treatment Wstr Work Phone: [facility] 02-13-2024 14:50-0400 Heart rate 88 /min Treatment Wstr Work Phone: [facility] 02-13-2024 14:50-0400 Respiratory rate 18 /min Treatment Wstr Work Phone: [facility] 02-13-2024 14:50-0400 SaO2% (BldA) [Mass fraction] 98 % Treatment Wstr Work Phone: [facility] 02-10-2024 14:47-0400 Body temperature 97.59 [degF] Treatment Wstr Work Phone: [facility] 02-10-2024 14:47-0400 Diastolic blood pressure 86 mm[Hg] Treatment Wstr Work Phone: [facility] 02-10-2024 14:47-0400 Heart rate 83 /min Treatment Wstr Work Phone: [facility] 02-10-2024 14:47-0400 SaO2% (BldA) [Mass fraction] 99 % Treatment Wstr Work Phone: [facility] 02-10-2024 14:47-0400 Systolic blood pressure 131 mm[Hg] Treatment Wstr Work Phone: [facility] 02-07-2024 13:33-0400 Body temperature 98.8 [degF] Treatment Wstr Work Phone: [facility] 02-07-2024 13:33-0400 Diastolic blood pressure 92 mm[Hg] Treatment Wstr Work Phone: [facility] 02-07-2024 13:33-0400 Heart rate 90 /min Treatment Wstr Work Phone: [facility] 02-07-2024 13:33-0400 SaO2% (BldA) [Mass fraction] 99 % Treatment Wstr Work Phone: [facility] 02-07-2024 13:33-0400 Systolic blood pressure 135 mm[Hg] Treatment Wstr Work Phone: [facility] 01-28-2024 13:14-0400 Body mass index (BMI) [Ratio] 41.02 kg/m2 Garima Praisler-Wood 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.UI ARCHITECT Work Phone: [facility] 01-28-2024 13:14-0400 Body temperature 97.59 [degF] Garima Praisler-Wood 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.UI ARCHITECT Work Phone: [facility] 01-28-2024 13:14-0400 Body weight 108.4 kg Garima Praisler-Jeffery 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.UI ARCHITECT Work Phone: [facility] 01-28-2024 13:14-0400 Diastolic blood pressure 78 mm[Hg] Garima Praisler-Wood 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.UI ARCHITECT Work Phone: [facility] 01-28-2024 13:14-0400 Heart rate 94 /min Garima Praisler-Wood 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.UI ARCHITECT Work Phone: [facility] 01-28-2024 13:14-0400 Respiratory rate 16 /min Garima Praisler-Wood 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.UI ARCHITECT Work Phone: [facility] 01-28-2024 13:14-0400 SaO2% (BldA) [Mass fraction] 99 % Garima Praisler-Wood 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.UI ARCHITECT Work Phone: [facility] 01-28-2024 13:14-0400 Systolic blood pressure 122 mm[Hg] Garima Praisler-Wood 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.UI ARCHITECT Work Phone: [facility] 01-25-2024 13:54-0400 Body mass index (BMI) [Ratio] 39.92 kg/m2 Zoraida Rodarte 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.UI ARCHITECT Work Phone: [facility] 01-25-2024 13:54-0400 Body weight 105.5 kg Zoraida Rodarte 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.UI ARCHITECT Work Phone: [facility] 01-25-2024 13:54-0400 Diastolic blood pressure 89 mm[Hg] Zoraida Rodarte 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.UI ARCHITECT Work Phone: [facility] 01-25-2024 13:54-0400 Heart rate 96 /min Zoraida Rodarte 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.UI ARCHITECT Work Phone: [facility] 01-25-2024 13:54-0400 Systolic blood pressure 138 mm[Hg] Zoraida Rodarte 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.UI ARCHITECT Work Phone: [facility] 01-19-2024 08:27-0400 Body mass index (BMI) [Ratio] 40.34 kg/m2 Aruna Hunter Work Phone: [facility] 01-19-2024 08:27-0400 Body temperature 98.49 [degF] Arunacecily Hunter Work Phone: [facility] 01-19-2024 08:27-0400 Body weight 106.59 kg Aruna Hunter Work Phone: [facility] 01-19-2024 08:27-0400 Diastolic blood pressure 94 mm[Hg] Aruna Hunter Work Phone: [facility] 01-19-2024 08:27-0400 Heart rate 85 /min Arunacecily Hunter Work Phone: [facility] 01-19-2024 08:27-0400 Respiratory rate 17 /min Arunacecily Hunter Work Phone: [facility] 01-19-2024 08:27-0400 SaO2% (BldA) [Mass fraction] 97 % Arunacecily Hunter Work Phone: [facility] 01-19-2024 08:27-0400 Systolic blood pressure 140 mm[Hg] Arunacecily Hunter Work Phone: [facility] 01-02-2024 08:20-0400 Body mass index (BMI) [Ratio] 40.85 kg/m2 Mary Kumar 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.UI ARCHITECT Work Phone: [facility] 01-02-2024 08:20-0400 Body weight 107.96 kg Mary Haury 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.UI ARCHITECT Work Phone: [facility] 01-02-2024 08:20-0400 Diastolic blood pressure 88 mm[Hg] Mary Haury 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.UI ARCHITECT Work Phone: [facility] 01-02-2024 08:20-0400 Heart rate 96 /min Mary Haury 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.UI ARCHITECT Work Phone: [facility] 01-02-2024 08:20-0400 Respiratory rate 14 /min Mary Haury 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.UI ARCHITECT Work Phone: [facility] 01-02-2024 08:20-0400 SaO2% (BldA) [Mass fraction] 98 % Mary Haury 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.UI ARCHITECT Work Phone: [facility] 01-02-2024 08:20-0400 Systolic blood pressure 118 mm[Hg] Mary Haury 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.UI ARCHITECT Work Phone: [facility] 12-26-2023 08:05-0400 Body mass index (BMI) [Ratio] 40.87 kg/m2 Sroaida Podlogar 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.UI ARCHITECT Work Phone: [facility] 12-26-2023 08:05-0400 Body weight 108 kg Soraida Podlogar 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.UI ARCHITECT Work Phone: [facility] 12-26-2023 08:05-0400 Diastolic blood pressure 88 mm[Hg] Soraida Podlogar 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.UI ARCHITECT Work Phone: [facility] 12-26-2023 08:05-0400 Heart rate 89 /min Soraida Podlogar 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.UI ARCHITECT Work Phone: [facility] 12-26-2023 08:05-0400 Respiratory rate 18 /min Soraida Podlogar 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.UI ARCHITECT Work Phone: [facility] 12-26-2023 08:05-0400 SaO2% (BldA) [Mass fraction] 97 % Soraida Gardner 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.UI ARCHITECT Work Phone: [facility] 12-26-2023 08:05-0400 Systolic blood pressure 128 mm[Hg] Soraida Gardner 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.UI ARCHITECT Work Phone: [facility] 12-06-2023 15:41-0400 Body mass index (BMI) [Ratio] 40.82 kg/m2 Ofelia Delaney 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.UI ARCHITECT Work Phone: [facility] 12-06-2023 15:41-0400 Body weight 107.86 kg Ofelia Delaney 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.UI ARCHITECT Work Phone: [facility] 12-06-2023 15:41-0400 Diastolic blood pressure 96 mm[Hg] Ofelia Delaney 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.UI ARCHITECT Work Phone: [facility] 12-06-2023 15:41-0400 Heart rate 95 /min Ofelia Delaney 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.UI ARCHITECT Work Phone: [facility] 12-06-2023 15:41-0400 Respiratory rate 16 /min Ofelia Delaney 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.UI ARCHITECT Work Phone: [facility] 12-06-2023 15:41-0400 SaO2% (BldA) [Mass fraction] 97 % Ofelia Delaney 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.UI ARCHITECT Work Phone: [facility] 12-06-2023 15:41-0400 Systolic blood pressure 144 mm[Hg] Ofelia Delaney 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.UI ARCHITECT Work Phone: [facility] 11-30-2023 15:08-0400 Body temperature 98.49 [degF] Treatment Wstr Work Phone: [facility] 11-30-2023 15:08-0400 Diastolic blood pressure 85 mm[Hg] Treatment Wstr Work Phone: [facility] 11-30-2023 15:08-0400 Heart rate 88 /min Treatment Wstr Work Phone: [facility] 11-30-2023 15:08-0400 SaO2% (BldA) [Mass fraction] 98 % Treatment Wstr Work Phone: [facility] 11-30-2023 15:08-0400 Systolic blood pressure 131 mm[Hg] Treatment Wstr Work Phone: [facility] 11-28-2023 15:04-0400 Diastolic blood pressure 88 mm[Hg] Treatment Wstr Work Phone: [facility] 11-28-2023 15:04-0400 Heart rate 91 /min Treatment Wstr Work Phone: [facility] 11-28-2023 15:04-0400 SaO2% (BldA) [Mass fraction] 99 % Treatment Wstr Work Phone: [facility] 11-28-2023 15:04-0400 Systolic blood pressure 137 mm[Hg] Treatment Wstr Work Phone: [facility] 11-25-2023 14:37-0400 Body temperature 98.01 [degF] Treatment Wstr Work Phone: [facility] 11-25-2023 14:37-0400 Diastolic blood pressure 80 mm[Hg] Treatment Wstr Work Phone: [facility] 11-25-2023 14:37-0400 Heart rate 94 /min Treatment Wstr Work Phone: [facility] 11-25-2023 14:37-0400 Respiratory rate 16 /min Treatment Wstr Work Phone: [facility] 11-25-2023 14:37-0400 SaO2% (BldA) [Mass fraction] 100 % Treatment Wstr Work Phone: [facility] 11-25-2023 14:37-0400 Systolic blood pressure 124 mm[Hg] Treatment Wstr Work Phone: [facility] 11-25-2023 08:17-0400 Body height 162.6 cm Jes Fuentes MD Work Phone: [facility] 11-25-2023 08:17-0400 Body mass index (BMI) [Ratio] 41.37 kg/m2 Jes Fuentes MD Work Phone: [facility] 11-25-2023 08:17-0400 Body temperature 98.29 [degF] Jes Fuentes MD Work Phone: [facility] 11-25-2023 08:17-0400 Body weight 109.32 kg Jes Fuentes MD Work Phone: [facility] 11-25-2023 08:17-0400 Diastolic blood pressure 66 mm[Hg] Jes Fuentes MD Work Phone: [facility] 11-25-2023 08:17-0400 Heart rate 89 /min Jes Fuentes MD Work Phone: [facility] 11-25-2023 08:17-0400 SaO2% (BldA) [Mass fraction] 95 % Jes Fuentes MD Work Phone: [facility] 11-25-2023 08:17-0400 Systolic blood pressure 120 mm[Hg] Jes Fuentes MD Work Phone: [facility] 11-24-2023 15:24-0400 Body mass index (BMI) [Ratio] 41.54 kg/m2 Maria Elena Painting APRN.UI ARCHITECT Work Phone: [facility] 11-24-2023 15:24-0400 Body temperature 100.2 [degF] Maria Elena Painting APRN.UI ARCHITECT Work Phone: [facility] 11-24-2023 15:24-0400 Body weight 109.77 kg Maria Elena Painting APRN.UI ARCHITECT Work Phone: [facility] 11-24-2023 15:24-0400 Diastolic blood pressure 101 mm[Hg] aMria Elena Painting APRN.UI ARCHITECT Work Phone: [facility] 11-24-2023 15:24-0400 Heart rate 106 /min Maria Elena Painting APRN.UI ARCHITECT Work Phone: [facility] 11-24-2023 15:24-0400 Respiratory rate 14 /min Maria Elena Painting APRN.UI ARCHITECT Work Phone: [facility] 11-24-2023 15:24-0400 Systolic blood pressure 142 mm[Hg] Maria Elena Painting APRN.UI ARCHITECT Work Phone: [facility] 11-23-2023 15:30-0400 Body temperature 98.01 [degF] Treatment Wstr Work Phone: [facility] 11-23-2023 15:30-0400 Diastolic blood pressure 88 mm[Hg] Treatment Wstr Work Phone: [facility] 11-23-2023 15:30-0400 Heart rate 100 /min Treatment Wstr Work Phone: [facility] 11-23-2023 15:30-0400 Respiratory rate 20 /min Treatment Wstr Work Phone: [facility] 11-23-2023 15:30-0400 Systolic blood pressure 145 mm[Hg] Treatment Wstr Work Phone: [facility] 11-21-2023 13:00-0400 Body temperature 97.5 [degF] Treatment Wstr Work Phone: [facility] 11-21-2023 13:00-0400 Diastolic blood pressure 84 mm[Hg] Treatment Wstr Work Phone: [facility] 11-21-2023 13:00-0400 Heart rate 101 /min Treatment Wstr Work Phone: [facility] 11-21-2023 13:00-0400 Systolic blood pressure 130 mm[Hg] Treatment Wstr Work Phone: [facility] 11-14-2023 07:16-0400 Body mass index (BMI) [Ratio] 41.85 kg/m2 Mary Kumar APRN.UI ARCHITECT Work Phone: [facility] 11-14-2023 07:16-0400 Body weight 110.59 kg Mary Kumar APRN.UI ARCHITECT Work Phone: [facility] 11-14-2023 07:16-0400 Diastolic blood pressure 60 mm[Hg] Mary Kumar APRN.UI ARCHITECT Work Phone: [facility] 11-14-2023 07:16-0400 Systolic blood pressure 138 mm[Hg] aMry Kumar APRN.UI ARCHITECT Work Phone: [facility] 11-04-2023 13:42-0400 Body height 162.6 cm Ashley Merazi DO Work Phone: [facility] Comment on above: Verified with Tamiko Teresa MA 11-04-2023 13:42-0400 Body mass index (BMI) [Ratio] 42.4 kg/m2 Ashley Masci DO Work Phone: [facility] 11-04-2023 13:42-0400 Body temperature 99.81 [degF] Ashley Masci DO Work Phone: [facility] 11-04-2023 13:42-0400 Body weight 112.04 kg Ashley Masci DO Work Phone: [facility] 11-04-2023 13:42-0400 Diastolic blood pressure 99 mm[Hg] Ashley Masci DO Work Phone: [facility] 11-04-2023 13:42-0400 Heart rate 95 /min Ashley Masci DO Work Phone: [facility] 11-04-2023 13:42-0400 SaO2% (BldA) [Mass fraction] 99 % Ashley Masci DO Work Phone: [facility] 11-04-2023 13:42-0400 Systolic blood pressure 133 mm[Hg] Ashley Masci DO Work Phone: [facility] 10-28-2023 14:00-0400 Diastolic blood pressure 72 mm[Hg] Infusion 5 Work Phone: [facility] 10-28-2023 14:00-0400 Heart rate 60 /min Infusion 5 Work Phone: [facility] 10-28-2023 14:00-0400 Systolic blood pressure 132 mm[Hg] Infusion 5 Work Phone: [facility] 10-26-2023 13:05-0400 Body mass index (BMI) [Ratio] 41.73 kg/m2 Zoraida Rodarte APRN.UI ARCHITECT Work Phone: [facility] 10-26-2023 13:05-0400 Body weight 112 kg Zoraidaliyah Rodarte 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.UI ARCHITECT Work Phone: [facility] 10-26-2023 13:05-0400 Diastolic blood pressure 90 mm[Hg] Zoraida Rodarte 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.UI ARCHITECT Work Phone: [facility] 10-26-2023 13:05-0400 Heart rate 83 /min Zoraida Rodarte 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.UI ARCHITECT Work Phone: [facility] 10-26-2023 13:05-0400 Systolic blood pressure 140 mm[Hg] Zoraida Rodarte 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.UI ARCHITECT Work Phone: [facility] 10-21-2023 15:03-0400 Body mass index (BMI) [Ratio] 41.4 kg/m2 Tomasa Suppke 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.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 Work Phone: [facility] 10-21-2023 15:03-0400 Body weight 111.13 kg Tomasa Suppke 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.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 Work Phone: [facility] 10-21-2023 15:03-0400 Diastolic blood pressure 82 mm[Hg] Tomasa Suppan 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.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 Work Phone: [facility] 10-21-2023 15:03-0400 Heart rate 88 /min Tomasa Suppan 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.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 Work Phone: [facility] 10-21-2023 15:03-0400 Respiratory rate 18 /min Tomasa Suppan 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.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 Work Phone: [facility] 10-21-2023 15:03-0400 SaO2% (BldA) [Mass fraction] 97 % Tomasa Suppan 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.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 Work Phone: [facility] 10-21-2023 15:03-0400 Systolic blood pressure 128 mm[Hg] Tomasa Suppan 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.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 Work Phone: [facility] 10-18-2023 14:05-0400 Body height 163.8 cm Chio Ash APRN.UI ARCHITECT Work Phone: [facility] 10-18-2023 14:05-0400 Body mass index (BMI) [Ratio] 40.83 kg/m2 Chio Ash APRN.UI ARCHITECT Work Phone: [facility] 10-18-2023 14:05-0400 Body weight 109.59 kg Chio Ash APRN.UI ARCHITECT Work Phone: [facility] 10-18-2023 14:05-0400 Diastolic blood pressure 92 mm[Hg] Chio Ash 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.UI ARCHITECT Work Phone: [facility] 10-18-2023 14:05-0400 Systolic blood pressure 132 mm[Hg] Chio Ash APRN.UI ARCHITECT Work Phone: [facility] 10-14-2023 15:15-0400 Body mass index (BMI) [Ratio] 41.07 kg/m2 Tomasa Suppan 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.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 Work Phone: [facility] 10-14-2023 15:15-0400 Body weight 110.22 kg Tomasa Suppan 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.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 Work Phone: [facility] 10-14-2023 15:15-0400 Diastolic blood pressure 68 mm[Hg] Tomasa Suppan 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.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 Work Phone: [facility] 10-14-2023 15:15-0400 Heart rate 86 /min Tomasa Suppan 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.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 Work Phone: [facility] 10-14-2023 15:15-0400 Respiratory rate 16 /min Tomasa Suppan 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.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 Work Phone: [facility] 10-14-2023 15:15-0400 SaO2% (BldA) [Mass fraction] 97 % Tomasa Suppan 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.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 Work Phone: [facility] 10-14-2023 15:15-0400 Systolic blood pressure 110 mm[Hg] Tomasa Suppan 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.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 Work Phone: [facility] 10-03-2023 11:05-0400 Diastolic blood pressure 61 mm[Hg] Infusion 9 Work Phone: [facility] 10-03-2023 11:05-0400 Heart rate 70 /min Infusion 9 Work Phone: [facility] 10-03-2023 11:05-0400 Systolic blood pressure 123 mm[Hg] Infusion 9 Work Phone: [facility] 09-09-2023 15:16-0400 Body mass index (BMI) [Ratio] 40.39 kg/m2 Tomasa Suppan 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.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 Work Phone: [facility] 09-09-2023 15:16-0400 Body weight 108.41 kg Tomasa Suppek 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.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 Work Phone: [facility] 09-09-2023 15:16-0400 Diastolic blood pressure 66 mm[Hg] Tomasa Suppke 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.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 Work Phone: [facility] 09-09-2023 15:16-0400 Heart rate 68 /min Tomasa Suppan 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.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 Work Phone: [facility] 09-09-2023 15:16-0400 SaO2% (BldA) [Mass fraction] 98 % Tomasa Suppan 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.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 Work Phone: [facility] 09-09-2023 15:16-0400 Systolic blood pressure 108 mm[Hg] Tomasa Suppan 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.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 Work Phone: [facility] 2023 13:32-0400 Diastolic blood pressure 63 mm[Hg] Infusion 2 Work Phone: [facility] 2023 13:32-0400 Heart rate 60 /min Infusion 2 Work Phone: [facility] 2023 13:32-0400 Systolic blood pressure 100 mm[Hg] Infusion 2 Work Phone: [facility] 08-04-2023 14:56-0400 Body weight 106.59 kg Tomasa Suppan 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.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 Work Phone: [facility] 08-04-2023 14:56-0400 Diastolic blood pressure 80 mm[Hg] Tomasa Suppan 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.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 Work Phone: [facility] 08-04-2023 14:56-0400 Heart rate 66 /min Tomasa Suppan 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.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 Work Phone: [facility] 08-04-2023 14:56-0400 SaO2% (BldA) [Mass fraction] 99 % Tomasa Suppan 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.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 Work Phone: [facility] 08-04-2023 14:56-0400 Systolic blood pressure 140 mm[Hg] Tomasa Suppan 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.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 Work Phone: [facility] 08-02-2023 13:45-0400 Body height 163.8 cm Zoraida Rodarte 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.UI ARCHITECT Work Phone: [facility] 08-02-2023 13:45-0400 Body weight 107.4 kg Zoraida Rodarte 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.UI ARCHITECT Work Phone: [facility] 08-02-2023 13:45-0400 Diastolic blood pressure 77 mm[Hg] Zoraida Rodarte 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.UI ARCHITECT Work Phone: [facility] 08-02-2023 13:45-0400 Heart rate 66 /min Zoraida Rodarte 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.UI ARCHITECT Work Phone: [facility] 08-02-2023 13:45-0400 SaO2% (BldA) [Mass fraction] 97 % Zoraida Rodarte 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.UI ARCHITECT Work Phone: [facility] 08-02-2023 13:45-0400 Systolic blood pressure 112 mm[Hg] Zoraida Rodarte 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.UI ARCHITECT Work Phone: [facility] 07-21-2023 11:04-0500 Body height 165.1 cm Zoraidaliyah Rodarte 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.UI ARCHITECT Work Phone: [facility] 07-21-2023 11:04-0500 Body weight 109.77 kg Zoraida Powerslittle 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.UI ARCHITECT Work Phone: [facility] 07-21-2023 11:04-0500 Diastolic blood pressure 113 mm[Hg] Zoraida Aster 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.UI ARCHITECT Work Phone: [facility] 07-21-2023 11:04-0500 Heart rate 90 /min Zoraida Aster 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.UI ARCHITECT Work Phone: [facility] 07-21-2023 11:04-0500 Systolic blood pressure 154 mm[Hg] Zoraida Aster 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.UI ARCHITECT Work Phone: [facility] 07-06-2023 14:39-0500 Body height 165.1 cm Jes Fuentes MD Work Phone: [facility] 07-06-2023 14:39-0500 Body weight 109.32 kg Jes Fuentes MD Work Phone: [facility] 07-06-2023 14:39-0500 Diastolic blood pressure 98 mm[Hg] Jes Fuentes MD Work Phone: [facility] 07-06-2023 14:39-0500 Heart rate 97 /min Jes Fuentes MD Work Phone: [facility] 07-06-2023 14:39-0500 SaO2% (BldA) [Mass fraction] 98 % Jes Fuentes MD Work Phone: [facility] 07-06-2023 14:39-0500 Systolic blood pressure 140 mm[Hg] Jes Fuentes MD Work Phone: [facility] 06-24-2023 11:10-0500 Diastolic blood pressure 78 mm[Hg] Infusion 1 Work Phone: [facility] 06-24-2023 11:10-0500 Heart rate 82 /min Infusion 1 Work Phone: [facility] 06-24-2023 11:10-0500 Systolic blood pressure 128 mm[Hg] Infusion 1 Work Phone: [facility] 06-10-2023 15:52-0500 Body height 165.1 cm Nelly Loco MD Work Phone: [facility] 06-10-2023 15:52-0500 Body temperature 98.4 [degF] Nelly Loco MD Work Phone: [facility] 06-10-2023 15:52-0500 Body weight 109.5 kg Nelly Loco MD Work Phone: [facility] 06-10-2023 15:52-0500 Diastolic blood pressure 86 mm[Hg] Nelly Loco MD Work Phone: [facility] 06-10-2023 15:52-0500 Heart rate 97 /min Nelly Loco MD Work Phone: [facility] 06-10-2023 15:52-0500 SaO2% (BldA) [Mass fraction] 98 % Nelly Loco MD Work Phone: [facility] 06-10-2023 15:52-0500 Systolic blood pressure 138 mm[Hg] Nelly Loco MD Work Phone: [facility] 03-18-2023 11:39-0400 Diastolic blood pressure 88 mm[Hg] Infusion 9 Work Phone: [facility] 03-18-2023 11:39-0400 Heart rate 94 /min Infusion 9 Work Phone: [facility] 03-18-2023 11:39-0400 Systolic blood pressure 133 mm[Hg] Infusion 9 Work Phone: [facility] 02-21-2023 17:07-0400 Body temperature 99.61 [degF] Ofelia Delaney 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.UI ARCHITECT Work Phone: [facility] 02-21-2023 17:07-0400 Diastolic blood pressure 90 mm[Hg] Ofelia Delaney 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.UI ARCHITECT Work Phone: [facility] 02-21-2023 17:07-0400 Heart rate 93 /min Ofelia Haagen 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.UI ARCHITECT Work Phone: [facility] 02-21-2023 17:07-0400 Respiratory rate 16 /min Ofelia Haagen 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.UI ARCHITECT Work Phone: [facility] 02-21-2023 17:07-0400 SaO2% (BldA) [Mass fraction] 98 % Ofelia Haagen 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.UI ARCHITECT Work Phone: [facility] 02-21-2023 17:07-0400 Systolic blood pressure 144 mm[Hg] Ofelia Haagen 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.UI ARCHITECT Work Phone: [facility] 02-01-2023 13:26-0400 Body weight 110.68 kg Zoraida Rodarte 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.UI ARCHITECT Work Phone: [facility] 02-01-2023 13:26-0400 Diastolic blood pressure 90 mm[Hg] Zoraida Rodarte 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.UI ARCHITECT Work Phone: [facility] 02-01-2023 13:26-0400 Heart rate 72 /min Zoraida Rodarte 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.UI ARCHITECT Work Phone: [facility] 02-01-2023 13:26-0400 SaO2% (BldA) [Mass fraction] 99 % Zoraida Rodarte 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.UI ARCHITECT Work Phone: [facility] 02-01-2023 13:26-0400 Systolic blood pressure 134 mm[Hg] Zoraida Rodarte 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.UI ARCHITECT Work Phone: [facility] 12-24-2022 09:12-0400 Diastolic blood pressure 86 mm[Hg] Infusion 7 Work Phone: [facility] 12-24-2022 09:12-0400 Heart rate 79 /min Infusion 7 Work Phone: [facility] 12-24-2022 09:12-0400 Systolic blood pressure 147 mm[Hg] Infusion 7 Work Phone: [facility] 11-12-2022 10:29-0400 Body temperature 98.8 [degF] Ofelia Delaney 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.UI ARCHITECT Work Phone: [facility] 11-12-2022 10:29-0400 Body weight 110.22 kg Ofelia Delaney 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.UI ARCHITECT Work Phone: [facility] 11-12-2022 10:29-0400 Diastolic blood pressure 82 mm[Hg] Ofelia Delaney 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.UI ARCHITECT Work Phone: [facility] 11-12-2022 10:29-0400 Heart rate 80 /min Ofelia Delaney 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.UI ARCHITECT Work Phone: [facility] 11-12-2022 10:29-0400 Respiratory rate 16 /min Ofelia Delaney 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.UI ARCHITECT Work Phone: [facility] 11-12-2022 10:29-0400 Systolic blood pressure 134 mm[Hg] Ofelia Delaney 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.UI ARCHITECT Work Phone: [facility] 11-02-2022 15:44-0400 Body height 162.6 cm Zoraida Rodarte APRN.UI ARCHITECT Work Phone: [facility] 11-02-2022 15:44-0400 Body weight 112.49 kg Zoraida Rodarte APRN.UI ARCHITECT Work Phone: [facility] 11-02-2022 15:44-0400 Diastolic blood pressure 91 mm[Hg] Zoraida Rodarte 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.UI ARCHITECT Work Phone: [facility] 11-02-2022 15:44-0400 Heart rate 94 /min Zoraida Rodarte APRN.UI ARCHITECT Work Phone: [facility] 11-02-2022 15:44-0400 SaO2% (BldA) [Mass fraction] 99 % Zoraida Rodarte APRN.UI ARCHITECT Work Phone: [facility] 11-02-2022 15:44-0400 Systolic blood pressure 127 mm[Hg] Zoraida Rodarte APRN.UI ARCHITECT Work Phone: [facility] 10-29-2022 11:43-0400 Body temperature 98.49 [degF] Jes Fuentes MD Work Phone: [facility] 10-29-2022 11:43-0400 Body weight 112.49 kg Jes Fuentes MD Work Phone: [facility] 10-29-2022 11:43-0400 Diastolic blood pressure 90 mm[Hg] Jes Fuentes MD Work Phone: [facility] 10-29-2022 11:43-0400 Heart rate 89 /min Jes Fuentes MD Work Phone: [facility] 10-29-2022 11:43-0400 SaO2% (BldA) [Mass fraction] 98 % Jes Fuentes MD Work Phone: [facility] 10-29-2022 11:43-0400 Systolic blood pressure 124 mm[Hg] Jes Fuentes MD Work Phone: [facility] 08-13-2022 16:42-0400 Body temperature 99.19 [degF] Sherice Hall APRN.UI ARCHITECT Work Phone: [facility] 08-13-2022 16:42-0400 Body weight 112.76 kg Sherice Hall APRN.UI ARCHITECT Work Phone: [facility] 08-13-2022 16:42-0400 Diastolic blood pressure 68 mm[Hg] Sherice Hall APRN.UI ARCHITECT Work Phone: [facility] 08-13-2022 16:42-0400 Heart rate 79 /min Sherice Hall APRN.UI ARCHITECT Work Phone: [facility] 08-13-2022 16:42-0400 Respiratory rate 18 /min Sherice Hall APRN.UI ARCHITECT Work Phone: [facility] 08-13-2022 16:42-0400 SaO2% (BldA) [Mass fraction] 99 % Sherice Hall APRN.UI ARCHITECT Work Phone: [facility] 08-13-2022 16:42-0400 Systolic blood pressure 104 mm[Hg] Sherice Hall 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.UI ARCHITECT Work Phone: [facility] 08-03-2022 13:04-0400 Body weight 112.95 kg Zoraida Rodarte APRN.UI ARCHITECT Work Phone: [facility] 08-03-2022 13:04-0400 Diastolic blood pressure 58 mm[Hg] Zoraida Rodarte 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.UI ARCHITECT Work Phone: [facility] 08-03-2022 13:04-0400 Heart rate 92 /min Zoraida Rodarte 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.UI ARCHITECT Work Phone: [facility] 08-03-2022 13:04-0400 SaO2% (BldA) [Mass fraction] 100 % Zoraida Rodarte APRN.UI ARCHITECT Work Phone: [facility] 08-03-2022 13:04-0400 Systolic blood pressure 148 mm[Hg] Zoraida Rodarte 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.UI ARCHITECT Work Phone: [facility] 06-11-2022 12:43-0500 Diastolic blood pressure 84 mm[Hg] Infusion 6 Work Phone: [facility] 06-11-2022 12:43-0500 Heart rate 76 /min Infusion 6 Work Phone: [facility] 06-11-2022 12:43-0500 Systolic blood pressure 135 mm[Hg] Infusion 6 Work Phone: [facility] 06-09-2022 14:10-0500 Diastolic blood pressure 69 mm[Hg] Infusion 9 Work Phone: [facility] 06-09-2022 14:10-0500 Heart rate 67 /min Infusion 9 Work Phone: [facility] 06-09-2022 14:10-0500 Systolic blood pressure 118 mm[Hg] Infusion 9 Work Phone: [facility] 05-26-2022 20:46-0500 Diastolic blood pressure 75 mm[Hg] Dr. Jes Fuentes Work Phone: [facility] Work Phone: 05-26-2022 20:46-0500 Respiratory rate 14 /min Dr. Jes Fuentes Work Phone: [facility] Work Phone: 05-26-2022 20:46-0500 Systolic blood pressure 152 mm[Hg] Dr. Jes Fuentes Work Phone: [facility] Work Phone: 05-26-2022 18:43-0500 Heart rate 80 /min Dr. Jes Fuentes Work Phone: [facility] Work Phone: 05-26-2022 18:43-0500 SaO2% (BldA) [Mass fraction] 98 % Dr. Jes Fuentes Work Phone: [facility] Work Phone: 05-26-2022 17:11-0500 Body height 162.[address] Jes Fuentes Work Phone: [facility] Work Phone: 05-26-2022 17:11-0500 Body mass index (BMI) [Ratio] 41.1 kg/m2 Dr. Jes Fuentes Work Phone: [facility] Work Phone: 05-26-2022 17:11-0500 Body temperature 98.2 [degF] Dr. Jes Fuentes Work Phone: [facility] Work Phone: 05-26-2022 17:11-0500 Body weight 108.[address] Jes Fuentes Work Phone: [facility] Work Phone: 05-04-2022 13:01-0500 Body weight 113.4 kg Zoraida Rodarte APRN.UI ARCHITECT Work Phone: [facility] 05-04-2022 13:01-0500 Diastolic blood pressure 85 mm[Hg] Zoraida Rodarte 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.UI ARCHITECT Work Phone: [facility] 05-04-2022 13:01-0500 Heart rate 103 /min Zoraida Rodarte 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.UI ARCHITECT Work Phone: [facility] 05-04-2022 13:01-0500 SaO2% (BldA) [Mass fraction] 100 % Zoraida Rodarte 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.UI ARCHITECT Work Phone: [facility] 05-04-2022 13:01-0500 Systolic blood pressure 137 mm[Hg] Zoraida Rodarte 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.UI ARCHITECT Work Phone: [facility] 04-12-2022 19:15-0500 Body weight 113.85 kg Jes Fuentes MD Work Phone: [facility] 04-12-2022 19:15-0500 Diastolic blood pressure 82 mm[Hg] Jes Fuentes MD Work Phone: [facility] 04-12-2022 19:15-0500 Heart rate 98 /min Jes Fuentes MD Work Phone: [facility] 04-12-2022 19:15-0500 SaO2% (BldA) [Mass fraction] 98 % Jes Fuentes MD Work Phone: [facility] 04-12-2022 19:15-0500 Systolic blood pressure 152 mm[Hg] Jes Fuentes MD Work Phone: [facility] 02-02-2022 14:34-0400 Diastolic blood pressure 100 mm[Hg] Whitney Emmanuel MD Work Phone: [facility] 02-02-2022 14:34-0400 Heart rate 106 /min Whitney Emmanuel MD Work Phone: [facility] 02-02-2022 14:34-0400 Systolic blood pressure 141 mm[Hg] Whitney Emmanuel MD Work Phone: [facility] 02-02-2022 14:30-0400 Body height 162.6 cm Whitney Emmanuel MD Work Phone: [facility] 02-02-2022 14:30-0400 Body weight 113.85 kg Whitney Emmanuel MD Work Phone: [facility] 11-25-2021 10:12-0400 Body weight 111.49 kg Soraida Podlogar 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.UI ARCHITECT Work Phone: [facility] 11-25-2021 10:12-0400 Diastolic blood pressure 82 mm[Hg] Soraida Podlogar 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.UI ARCHITECT Work Phone: [facility] 11-25-2021 10:12-0400 Heart rate 76 /min Soraida Podlogar 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.UI ARCHITECT Work Phone: [facility] 11-25-2021 10:12-0400 Respiratory rate 18 /min Soraida Podlogar 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.UI ARCHITECT Work Phone: [facility] 11-25-2021 10:12-0400 SaO2% (BldA) [Mass fraction] 99 % Soraida Podlogar 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.UI ARCHITECT Work Phone: [facility] 11-25-2021 10:12-0400 Systolic blood pressure 128 mm[Hg] Soraida Podlogar 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.UI ARCHITECT Work Phone: [facility] 10-08-2021 18:02-0400 Body weight 111.13 kg NA Rosario PA-C Work Phone: [facility] 10-08-2021 18:02-0400 Diastolic blood pressure 76 mm[Hg] NA Rosario PA-C Work Phone: [facility] 10-08-2021 18:02-0400 Heart rate 109 /min NA Rosario PA-C Work Phone: [facility] 10-08-2021 18:02-0400 SaO2% (BldA) [Mass fraction] 99 % NA Rosario PA-C Work Phone: [facility] 10-08-2021 18:02-0400 Systolic blood pressure 128 mm[Hg] DAYAN Rosario PA-C Work Phone: [facility] 09-30-2021 22:45-0400 Diastolic blood pressure 78 mm[Hg] No Primary Care Physician [facility] Work Phone: 09-30-2021 22:45-0400 Heart rate 79 /min No Primary Care Physician [facility] Work Phone: 09-30-2021 22:45-0400 Respiratory rate 18 /min No Primary Care Physician [facility] Work Phone: 09-30-2021 22:45-0400 Systolic blood pressure 126 mm[Hg] No Primary Care Physician [facility] Work Phone: 09-30-2021 19:26-0400 SaO2% (BldA) [Mass fraction] 98 % No Primary Care Physician [facility] Work Phone: 09-30-2021 16:43-0400 Body height 162.56 cm No Primary Care Physician [facility] Work Phone: 09-30-2021 16:43-0400 Body mass index (BMI) [Ratio] 41.8 kg/m2 No Primary Care Physician [facility] Work Phone: 09-30-2021 16:43-0400 Body temperature 97.1 [degF] No Primary Care Physician [facility] Work Phone: 09-30-2021 16:43-0400 Body weight 110.7 kg No Primary Care Physician [facility] Work Phone: 09-11-2021 11:27-0400 Body weight 110.22 kg Jes Fuentes MD Work Phone: [facility] 09-11-2021 11:27-0400 Diastolic blood pressure 82 mm[Hg] Jes Fuentes MD Work Phone: [facility] 09-11-2021 11:27-0400 Heart rate 84 /min Jes Fuentes MD Work Phone: [facility] 09-11-2021 11:27-0400 Systolic blood pressure 134 mm[Hg] Jes Fuentes MD Work Phone: [facility] 08-17-2021 09:30-0400 Body weight 110.68 kg Jes Fuentes MD Work Phone: [facility] 08-17-2021 09:30-0400 Diastolic blood pressure 82 mm[Hg] Jes Fuentes MD Work Phone: [facility] 08-17-2021 09:30-0400 Heart rate 88 /min Jes Fuentes MD Work Phone: [facility] 08-17-2021 09:30-0400 Systolic blood pressure 122 mm[Hg] Jes Fuentes MD Work Phone: [facility] 07-21-2021 09:55-0500 Body temperature 98 [degF] No Primary Care Physician [facility] Work Phone: 07-21-2021 09:55-0500 Diastolic blood pressure 81 mm[Hg] No Primary Care Physician [facility] Work Phone: 07-21-2021 09:55-0500 Heart rate 94 /min No Primary Care Physician [facility] Work Phone: 07-21-2021 09:55-0500 Respiratory rate 16 /min No Primary Care Physician [facility] Work Phone: 07-21-2021 09:55-0500 SaO2% (BldA) [Mass fraction] 97 % No Primary Care Physician [facility] Work Phone: 07-21-2021 09:55-0500 Systolic blood pressure 127 mm[Hg] No Primary Care Physician [facility] Work Phone: 07-20-2021 09:28-0500 Body mass index (BMI) [Ratio] 40.1 kg/m2 No Primary Care Physician [facility] Work Phone: 07-20-2021 09:28-0500 Body weight 106 kg No Primary Care Physician [facility] Work Phone: 02-23-2017 11:39-0400 BMI (Body Mass Index) 38.14 kg/m2 Keenan HERRERA [facility] Work Phone: 02-23-2017 11:39-0400 Body Temperature 98.4 [degF] Keenan HERRERA [facility] Work Phone: 02-23-2017 11:39-0400 BP Diastolic 68 mm[Hg] Keenan HERRERA [facility] Work Phone: 02-23-2017 11:39-0400 BP Systolic 128 mm[Hg] Keenan HERRERA [facility] Work Phone: 02-23-2017 11:39-0400 Height 162.56 cm Keenan HERRERA [facility] Work Phone: 02-23-2017 11:39-0400 Pulse (Heart Rate) 71 /min Keenan HERRERA [facility] Work Phone: 02-23-2017 11:39-0400 Respiratory Rate 16 /min Keenan HERRERA [facility] Work Phone: 02-23-2017 11:39-0400 Weight 100.79 kg Keenan Jeffery HERRERA [facility] Work Phone: 01-27-2017 13:16-0400 BMI (Body Mass Index) 38.45 kg/m2 Mary Júnior MIRANDAN [facility] Work Phone: 01-27-2017 13:16-0400 Body Temperature 97.7 [degF] Mary Cogar [place] [facility] Work Phone: 01-27-2017 13:16-0400 BP Diastolic 88 mm[Hg] Mary Cogar [place] [facility] Work Phone: 01-27-2017 13:16-0400 BP Systolic 132 mm[Hg] Mary Cogar [place] [facility] Work Phone: 01-27-2017 13:16-0400 Height 162.56 cm Mary Cogar [place] [facility] Work Phone: 01-27-2017 13:16-0400 Pulse (Heart Rate) 88 /min Mary Callejas LPN [facility] Work Phone: 01-27-2017 13:16-0400 Respiratory Rate 12 /min Mary Callejas LPN [facility] Work Phone: 01-27-2017 13:16-0400 Weight 101.61 kg Mary Callejas LPN [facility] Work Phone: Encounters Encounter Date Encounter Type Care Provider Facility Start: 11-07-2024 End: 11-07-[address] Jes Fuentes MD Work Phone: [facility] Work Phone: Start: 11-07-2024 End: 11-07-2024 Patient encounter procedure Sussy HERRERA -[facility] Work Phone: Start: 10-29-2024 End: 10-30-2024 Refill Zoraida Rodarte APRN.UI ARCHITECT Work Phone: Neurology Comment on above: Refill Request ([facility] managed refill) Start: 10-24-2024 ambulatory Salbador [place] Start: 10-24-2024 Non-patient / Non-visit Salbadorgwyn Molina tn DO -[facility] Start: 10-24-2024 End: 10-24-2024 Admission to same day surgery center Salbador Fofana DO -Endoscopy Work Phone: Start: 10-24-2024 End: 10-25-[address] Jes Fuentes MD Work Phone: [facility] Work Phone: Comment on above: Refill Request Start: 10-18-2024 End: 10-18-2024 Patient encounter procedure Choi Ash APRN.UI ARCHITECT Work Phone: OB/Gynecology Comment on above: Encounter for gyneco logical examination (general) (routine) without abnormal findings (Primary Dx) Start: 10-18-2024 End: 10-18-2024 Patient encounter status Chio Ash APRN.UI ARCHITECT Work Phone: [facility] Start: 10-18-2024 End: 10-18-2024 ambulatory JES FUENTES Facility:[facility] Start: 10-18-2024 Encounter for gynecological examination (general) (routine) without abnormal findings CHIO ASH [facility] Start: 10-03-2024 End: 10-03-2024 ambulatory ZORAIDA MOORERadha Facility:[facility] Start: 10-02-2024 End: 10-02-2024 ambulatory JES Callaway GINA Facility:[facility] Start: 09-30-2024 End: 10-02-2024 Refill Russ De Dios PA-C Work Phone: Neurology Comment on above: Refill Request Start: 09-17-2024 End: 09-18-2024 Telephone encounter Russ De Dios PA-C Work Phone: Neurology Comment on above: Referral Request (Arjun tox) Start: 09-12-2024 End: 09-12-2024 ambulatory ARUNA HUNTER Facility:[facility] Start: 09-10-2024 End: 09-10-2024 Telephone encounter Jes Fuentes MD Work Phone: Internal Medicine [place] Comment on above: Insurance Authorizat ion Start: 09-06-2024 End: 09-07-2024 ambulatory LILIANE CROCKETT Facility:[facility] Start: 08-30-2024 End: 08-30-2024 Refill Tomasa Laguerre APRN.UI ARCHITECT Work Phone: [facility] [place] Comment on above: Refill Request Start: 08-28-2024 End: 09-13-2024 Chart abstracting [facility] Work Phone: Neurology Start: 08-20-2024 End: 08-20-2024 Telephone encounter Germnaia Dahl APRN.UI ARCHITECT Work Phone: Cardiology Comment on above: Forms ([facility]) Start: 08-16-2024 End: 08-16-2024 ambulatory GERMANIA DAHL Facility:[facility] Start: 08-16-2024 End: 08-16-2024 Patient encounter procedure Germania Ketan ACOSTA Work Phone: Cardiology Comment on above: Intestinal dysbiosis (Primary Dx); Diarrhea, unspecified type; Eosinophilic gastroenteritis; Hypertension, essential; Palpitations Start: 2024 End: 2024 Patient encounter procedure Sussy Valdes [facility] Work Phone: Start: 2024 End: 2024 ambulatory Sussy Valdes Facility:[facility] Start: 08-14-2024 End: 08-14-2024 Telephone encounter Jes Fuentes MD Work Phone: [facility] Comment on above: Appointment (ER foll ow up) Start: 08-13-2024 End: 08-13-2024 Emergency department patient visit Dr. Jes Fuentes MD Work Phone: -Emergency Department Work Phone: Start: 08-06-2024 Non-patient / Non-visit Salbador Molina nd, DO -[facility] Start: 08-06-2024 End: 08-06-2024 Admission to same day surgery center Salbador Fofana DO -Endoscopy Work Phone: Start: 08-06-2024 End: 08-06-[address] Jes Fuentes MD Work Phone: [facility] Work Phone: Start: 08-03-2024 End: 08-03-2024 ambulatory Aruna Hunter Work Phone: Hematology/Oncology Comment on above: Thrombocytosis (Prim scott Dx); Leukocytosis, unspecified type; Iron malabsorption Start: 08-03-2024 End: 08-03-2024 Patient encounter procedure Aruna Hunter Work Phone: Hematology/Oncology Start: 08-01-2024 End: 10-01-2024 Follow-up encounter Jes Fuentes MD Work Phone: [facility] Start: 07-31-2024 End: 07-31-2024 ambulatory JES FUENTES Facility:[facility] Start: 07-20-2024 End: 07-20-2024 ambulatory Infusion Main Chair 2 Work Phone: Neurology Comment on above: Intractable chronic 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 (Primary Dx) Start: 07-20-2024 End: 07-20-2024 Patient encounter procedure Russ De Dios PA-C Work Phone: Neurology Comment on above: Intractable chronic 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 (Primary Dx); Status migrainosus Start: 07-19-2024 End: 07-19-2024 Patient encounter procedure Kyra Weiss 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.UI ARCHITECT Work Phone: Neurology Comment on above: Status migrainosus ( Primary Dx) Start: 07-19-2024 End: 07-19-2024 ambulatory Infusion Main Chair 3 Work Phone: Neurology Comment on above: Intractable chronic 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 (Primary Dx) Start: 07-18-2024 End: 07-18-2024 Telephone encounter Zoraida Rodarte APRN.UI ARCHITECT Work Phone: Neurology Comment on above: Patient Request Start: 07-11-2024 End: 07-11-2024 ambulatory ZORAIDA RODARTE Facility:[facility] Start: 07-11-2024 End: 07-11-2024 Patient encounter procedure Zoraida Rodarte 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.UI ARCHITECT Work Phone: Neurology Comment on above: Chronic migraine wit hout aura, intractable, without status migrainosus (Primary Dx) Start: 07-06-2024 End: 07-06-2024 ambulatory HILDA ORELLANA Facility:[facility] Start: 07-06-2024 End: 07-06-2024 Patient encounter procedure Liliane Crockett 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.UI ARCHITECT Work Phone: Neurology Comment on above: BLAISE (obstructive sle ep apnea) (Primary Dx); Weight loss Start: 07-03-2024 End: 07-03-2024 ambulatory JES Nilton GINA Facility:[facility] Start: 07-03-2024 End: 07-03-2024 Patient encounter procedure Chio Ash APRN.UI ARCHITECT Work Phone: OB/Gynecology Comment on above: Hypertension, essent ial (Primary Dx); BLAISE (obstructive sleep apnea); Gastroesophageal reflux disease, unspecified whether esophagitis present; Prediabetes; Palpitations; Intractable chronic 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; Asthma, unspecified asthma severity, unspecified whether complicated, unspecified whether persistent; Anxiety with depression; Vitamin D deficiency; Class 3 severe obesity with serious comorbidity and body mass index (BMI) of 40.0 to 44.9 in adult, unspecified obesity type (HCC) Start: 06-14-2024 End: 06-14-2024 ambulatory HILDA ORELLANA Facility:[facility] Start: 06-05-2024 End: 06-05-2024 [facility] Work Phone: Start: 06-05-2024 End: 06-05-2024 ambulatory Sussy Valdes [place] Start: 06-01-2024 End: 06-04-2024 Refill Russ De Dios PA-C Work Phone: Neurology Comment on above: Refill Request Start: 05-22-2024 End: 05-22-2024 Telephone encounter Ofelia Delaney APRN.CNP Work Phone: Family [facility] [place] Comment on above: Results Start: 05-15-2024 End: 05-15-2024 Office outpatient visit 25 minutes Ofelia Delaney APRN.CNP Work Phone: [facility] [place] Comment on above: Diarrhea, unspecifie d type (Primary Dx) Start: 05-15-2024 End: 05-15-2024 ambulatory JES FUENTES Facility:[facility] Start: 05-14-2024 End: 05-14-2024 Telephone encounter Mary Kumar APRN.CNP Work Phone: OB/Gynecology Comment on above: Results Start: 05-14-2024 End: 05-14-2024 Patient encounter procedure Hilda Orellana DO Work Phone: Cardiology Comment on above: Palpitations (Primar y Dx); BLAISE (obstructive sleep apnea); Primary hypertension; Mixed hyperlipidemia Start: 05-14-2024 End: 05-14-2024 ambulatory UNKNOWN PROVIDER Facility:[facility] Start: 05-14-2024 End: 05-14-2024 Subsequent hospital visit by physician Screen/Diagnostic Mammo 2 [facility] Work Phone: Mammography Start: 04-27-2024 End: 04-27-2024 ambulatory MARYSTAR KUMAR Facility:[facility] Start: 04-27-2024 End: 04-27-2024 Patient encounter procedure Mary Kumar APRN.UI ARCHITECT Work Phone: OB/Gynecology Comment on above: Breast pain (Primary Dx) Start: 04-18-2024 End: 04-18-2024 ambulatory ZORAIDA RODARTE Facility:[facility] Start: 04-18-2024 End: 04-18-2024 Patient encounter procedure Zoraida Rodarte APRN.UI ARCHITECT Work Phone: Neurology Comment on above: Chronic migraine wit hout aura, intractable, without status migrainosus (Primary Dx) Start: 04-06-2024 End: 04-06-2024 Orders Only Zoraida Rodarte APRN.UI ARCHITECT Work Phone: Neurology Comment on above: Sinus disease (Prima ry Dx) Worsening headaches [R51.9] Start: 04-04-2024 End: 04-04-2024 Telephone encounter Maggi [place] APRN.CNM Work Phone: OB/Gynecology Comment on above: AUB Start: 03-28-2024 End: 03-28-2024 ambulatory DANISH HERNANDEZ Facility:[facility] Start: 03-28-2024 End: 03-28-2024 Patient encounter procedure Danish Hernandez MD Work Phone: OB/Gynecology Comment on above: Encounter for IUD re moval (Primary Dx) Start: 03-26-2024 End: 03-26-2024 ambulatory DANISH HERNANDEZ Facility:[facility] Start: 03-26-2024 End: 03-26-2024 Patient encounter procedure Danish Hernandez MD Work Phone: OB/Gynecology Comment on above: Pelvic pain in femal e (Primary Dx) Start: 03-22-2024 End: 03-22-2024 ambulatory Care Nurse Rn Wstr [employer] Remote Work Phone: OB/Gynecology Start: 03-22-2024 End: 03-22-2024 Patient encounter procedure Care Nurse Rn [employer]str [employer] Remote Work Phone: OB/Gynecology Comment on above: Pelvic pain in femal e (Primary Dx) Start: 03-21-2024 End: 03-21-2024 ambulatory JES FUENTES Facility:[facility] Start: 03-21-2024 End: 03-21-2024 Patient encounter procedure Danish Hernandez MD Work Phone: OB/Gynecology Comment on above: Pelvic pain in femal e (Primary Dx) Start: 03-20-2024 End: 03-20-2024 Emergency department patient visit Yovani Escobedo Facility:[facility] Start: 03-19-2024 End: 03-19-2024 ambulatory Mary Kumar 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.UI ARCHITECT Work Phone: OB/Gynecology Comment on above: Cramps Start: 03-13-2024 End: 03-21-2024 Telephone encounter Ken Hill MD Work Phone: [facility] [place] Comment on above: Orders Start: 03-09-2024 End: 03-09-2024 ambulatory MARY KUMAR Facility:[facility] Start: 03-09-2024 End: 03-09-2024 Patient encounter procedure Mary Kumar 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.UI ARCHITECT Work Phone: OB/Gynecology Comment on above: Encounter for IUD in sertion (Primary Dx); Abnormal uterine bleeding Start: 03-05-2024 End: 03-06-2024 ambulatory Zoraida Rodarte APRN.UI ARCHITECT Work Phone: Neurology Comment on above: Frequent Migraines Start: 02-29-2024 End: 02-29-2024 Telephone encounter Kelly Montanez [facility] e Delivery Comment on above: Insurance Authorizat ion (Qulipta 60MG tablets); Qulipta 60MG tablets Start: 02-24-2024 End: 02-24-2024 ambulatory JES FUENTES Facility:[facility] Start: 02-24-2024 End: 02-24-2024 Patient encounter procedure Chio Nicholasie [facility] Work Phone: OB/Gynecology Comment on above: Hypertension, essent ial (Primary Dx); BLAISE (obstructive sleep apnea); Gastroesophageal reflux disease, unspecified whether esophagitis present; Prediabetes; Palpitations; Intractable chronic 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; Menorrhagia with regular cycle; Iron deficiency anemia due to chronic blood loss; Asthma, unspecified asthma severity, unspecified whether complicated, unspecified whether persistent; Anxiety with depression; Vitamin D deficiency; General counseling and advice for contraceptive management; Screening for diabetes mellitus; Screening cholesterol level; Class 3 severe obesity with serious comorbidity and body mass index (BMI) of 40.0 to 44.9 in adult, unspecified obesity type (HCC) Start: 02-20-2024 End: 02-20-2024 ambulatory ASHLEY CARMEN Hematology/Oncology Comment on above: Menorrhagia with reg ular cycle (Primary Dx); Iron malabsorption; Iron deficiency anemia due to chronic blood loss Start: 02-20-2024 End: 02-20-2024 Patient encounter procedure [facility]m [facility] Work Phone: Hematology/Oncology Start: 02-19-2024 End: 02-20-2024 Refill Jes Fuentes MD Work Phone: [facility] Comment on above: Refill Request Start: 02-16-2024 End: 02-16-2024 ambulatory ASHLEY CARMEN Hematology/Oncology Comment on above: Iron deficiency anem ia due to chronic blood loss (Primary Dx); Menorrhagia with regular cycle; Iron malabsorption Start: 02-16-2024 End: 02-16-2024 Patient encounter procedure Treatment Rm 15 [facility] Work Phone: Hematology/Oncology Start: 02-13-2024 End: 02-13-2024 ambulatory ASHLEY CARMEN Hematology/Oncology Comment on above: Menorrhagia with reg ular cycle (Primary Dx); Iron malabsorption; Iron deficiency anemia due to chronic blood loss Start: 02-13-2024 End: 02-13-2024 Patient encounter procedure Treatment Rm 14 [facility] Work Phone: Hematology/Oncology Start: 02-10-2024 End: 02-10-2024 ambulatory ASHLEY CARMEN Hematology/Oncology Comment on above: Menorrhagia with reg ular cycle (Primary Dx); Iron malabsorption; Iron deficiency anemia due to chronic blood loss Start: 02-10-2024 End: 02-10-2024 Patient encounter procedure Treatment Rm 15 [facility] Work Phone: Hematology/Oncology Start: 02-07-2024 End: 02-07-2024 ambulatory ASHLEY CARMEN Hematology/Oncology Comment on above: Menorrhagia with reg ular cycle (Primary Dx); Iron malabsorption; Iron deficiency anemia due to chronic blood loss Start: 02-07-2024 End: 02-07-2024 Patient encounter procedure Treatment Rm 18 [facility] Work Phone: Hematology/Oncology Start: 01-28-2024 End: 01-28-2024 ambulatory JES FUENTES Facility:[facility] Start: 01-28-2024 End: 01-28-2024 Patient encounter procedure Garima Zarate APRN.UI ARCHITECT Work Phone: [facility] Comment on above: Abrasion of right co rnea, initial encounter (Primary Dx) Start: 01-25-2024 End: 01-26-2024 Telephone encounter Jes Fuentes MD Work Phone: [facility] [place] Comment on above: Results Start: 01-25-2024 End: 01-25-2024 ambulatory ZORAIDA RODARTE Facility:[facility] Start: 01-25-2024 End: 01-25-2024 Patient encounter procedure Zoraida Rodarte 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.UI ARCHITECT Work Phone: Neurology Comment on above: Chronic migraine wit hout aura, intractable, without status migrainosus (Primary Dx) Start: 01-24-2024 End: 01-24-2024 Refill Mary Kumar APRN.UI ARCHITECT Work Phone: OB/Gynecology Comment on above: Med Change Request Start: 01-23-2024 End: 01-31-2024 ambulatory Aruna Hunter Work Phone: Hematology/Oncology Comment on above: Low iron Start: 01-19-2024 End: 01-19-2024 Patient encounter procedure Aruna Hunter Work Phone: Hematology/Oncology Start: 01-19-2024 End: 01-19-2024 ambulatory Aruna Hunter Work Phone: Hematology/Oncology Comment on above: Thrombocytosis (Prim scott Dx) Start: 01-18-2024 End: 01-18-2024 Orders Only Aruna Hunter Work Phone: Hematology/Oncology Comment on above: Iron deficiency anem ia due to chronic blood loss (Primary Dx); Iron malabsorption; Thrombocytosis Start: 01-10-2024 End: 01-11-2024 Refill Russ De Dios PA-C Work Phone: Neurology Comment on above: Refill Request Start: 01-09-2024 ambulatory Sussy Mendosa ty:[facility] Start: 01-02-2024 End: 01-02-2024 ambulatory MARY KUMAR Facility:[facility] Start: 01-02-2024 End: 01-02-2024 Patient encounter procedure Mary Kumar APRN.UI ARCHITECT Work Phone: OB/Gynecology Comment on above: Abnormal uterine ble eding (Primary Dx); Class 3 severe obesity in adult, unspecified BMI, unspecified obesity type, unspecified whether serious comorbidity present (HCC) Start: 12-26-2023 End: 12-26-2023 Patient encounter procedure Soraida Gardner APRN.UI ARCHITECT Work Phone: Family [facility] [place] Comment on above: Acute conjunctivitis of both eyes, unspecified acute conjunctivitis type (Primary Dx) Start: 12-26-2023 End: 12-26-2023 ambulatory JES FUENTES Facility:[facility] Start: 12-07-2023 Telephone encounter Jes Fuentes MD Work Phone: [facility] [place] Comment on above: Patient Update Start: 12-06-2023 End: 12-06-2023 ambulatory JES FUENTES Facility:[facility] Start: 12-06-2023 End: 12-06-2023 Office outpatient visit 15 minutes Ofelia Leandro SONGUI ARCHITECT Work Phone: [facility] [place] Comment on above: Diarrhea, unspecifie d type (Primary Dx); Palpitations Start: 11-30-2023 End: 11-30-2023 ambulatory ASHLEY CARMEN Hematology/Oncology Comment on above: Menorrhagia with reg ular cycle (Primary Dx); Iron malabsorption; Iron deficiency anemia due to chronic blood loss Start: 11-30-2023 End: 11-30-2023 Patient encounter procedure Treatment Rm 15 [facility] Work Phone: Hematology/Oncology Start: 11-29-2023 Telephone encounter Annette WILLIAMSON Hematology/Oncology Comment on above: Social Work Services Start: 11-28-2023 End: 11-28-2023 ambulatory ASHLEY CARMEN Hematology/Oncology Comment on above: Menorrhagia with reg ular cycle (Primary Dx); Iron malabsorption; Iron deficiency anemia due to chronic blood loss Start: 11-28-2023 End: 11-28-2023 Patient encounter procedure Treatment Rm 15 [facility] Work Phone: Hematology/Oncology Start: 11-28-2023 Telephone encounter Ashley nichols DO Work Phone: Hematology/Oncology Comment on above: Results Start: 11-25-2023 End: 11-25-2023 ambulatory Treatment Rm 13 [facility] Work Phone: Hematology/Oncology Comment on above: Menorrhagia with reg ular cycle (Primary Dx); Iron malabsorption; Iron deficiency anemia due to chronic blood loss Start: 11-25-2023 End: 11-25-2023 ambulatory JES FUENTES Facility:[facility] Start: 11-25-2023 End: 11-25-2023 ambulatory ASHLEY CARMEN Facility:[facility] Start: 11-25-2023 End: 11-25-2023 Patient encounter procedure Jes Fuentes MD Work Phone: Family [facility] [place] Comment on above: Hyperglycemia (Prima ry Dx); Diarrhea, unspecified type; Thrombocytosis; Hypertension, essential; Palpitations Start: 11-24-2023 End: 11-24-2023 ambulatory MARIA ELENA PAINTING Facility:[facility] Start: 11-24-2023 End: 11-24-2023 Patient encounter procedure Maria Elena Painting 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.UI ARCHITECT Work Phone: [facility] Comment on above: Gastroenteritis (Flaca antonio Dx) Start: 11-24-2023 Telephone encounter Maria Elena newby APRN.UI ARCHITECT Work Phone: [facility] Comment on above: Results Start: 11-23-2023 End: 11-23-2023 ambulatory Treatment Rm 6 [facility] Work Phone: Hematology/Oncology Comment on above: Menorrhagia with reg ular cycle (Primary Dx); Iron malabsorption; Iron deficiency anemia due to chronic blood loss Start: 11-22-2023 Refill Nelly macias MD Work Phone: General Surgery Comment on above: Med Change Request Start: 11-21-2023 End: 11-21-2023 ambulatory Treatment Rm 9 [facility] Work Phone: Hematology/Oncology Comment on above: Iron malabsorption ( Primary Dx); Menorrhagia with regular cycle; Iron deficiency anemia due to chronic blood loss Start: 11-16-2023 End: 11-16-2023 ambulatory KEN HILL Facility:[facility] Start: 11-16-2023 End: 11-16-2023 Subsequent hospital visit by physician Diagnostic Mammo [facility] Comment on above: Breast pain [N64.4] Start: 11-14-2023 Telephone encounter Mary rob APRN.UI ARCHITECT Work Phone: OB/Gynecology Comment on above: Orders Start: 11-14-2023 End: 11-14-2023 Patient encounter procedure Mary Kumar APRN.UI ARCHITECT Work Phone: OB/Gynecology Comment on above: Pelvic pain in femal e (Primary Dx) Start: 11-14-2023 End: 11-14-2023 ambulatory MARY KUMAR Facility:[facility] Start: 11-11-2023 Telephone encounter Annette WILLIAMSON Hematology/Oncology Comment on above: Social Work Services Start: 11-10-2023 ambulatory Ken onofre MD Work Phone: Mammography Comment on above: Radio Imaging Study Comments Start: 11-10-2023 Patient encounter procedure Ken Hill MD Work Phone: Mammography Start: 11-09-2023 End: 11-09-2023 ambulatory JES FUENTES Facility:[facility] Start: 11-09-2023 End: 11-09-2023 Subsequent hospital visit by physician Diagnostic Mammo [facility] Mamm[facility] Comment on above: Mastalgia [N64.4] Start: 11-08-2023 Telephone encounter Ashley nichols DO Work Phone: Hematology/Oncology Comment on above: Results Start: 11-07-2023 End: 11-07-2023 Patient encounter procedure Nelly Loco MD Work Phone: General Surgery Comment on above: Eosinophilic esophag itis (Primary Dx) Start: 11-07-2023 End: 11-07-2023 ambulatory ASHLEY CARMEN Facility:[facility] Start: 11-04-2023 End: 11-04-2023 ambulatory Ashley Carmen DO Work Phone: Hematology/Oncology Comment on above: Thrombocytosis (Prim scott Dx) Start: 11-04-2023 End: 11-04-2023 Patient encounter procedure Ashley Carmen DO Work Phone: Hematology/Oncology Start: 11-03-2023 ambulatory Chio Ash APRN.UI ARCHITECT Work Phone: OB/Gynecology Start: 11-03-2023 Manual pelvic examination Chio Ash APRN.UI ARCHITECT Work Phone: OB/Gynecology Comment on above: Pelvic pain. Start: 11-01-2023 Telephone encounter Anne hoskins RN Work Phone: [facility] Comment on above: Insurance Authorizat ion; Qulipta 60MG tablets Start: 10-31-2023 ambulatory JES FUENTES Facility :[facility] Start: 10-31-2023 End: 10-31-2023 Subsequent hospital visit by physician [facility] Work Phone: Radiology Comment on above: Pelvic pain in femal e [R10.2] Start: 10-28-2023 End: 10-28-2023 ambulatory Infusion Main Chair 5 Work Phone: Neurology Comment on above: Intractable chronic 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 (Primary Dx) Refill Request Start: 10-28-2023 End: 10-28-2023 Patient encounter procedure Russ De Dios PA-C Work Phone: Neurology Comment on above: Intractable chronic 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 (Primary Dx) Start: 10-27-2023 Telephone encounter Zoraida Rodarte APRN.UI ARCHITECT Work Phone: Neurology Comment on above: Patient Request Start: 10-26-2023 Telephone encounter Jes Fuentes MD Work Phone: Neurology Comment on above: Patient Request Start: 10-26-2023 End: 10-26-2023 ambulatory ZORAIDA RODARTE Facility:[facility] Start: 10-26-2023 End: 10-26-2023 Patient encounter procedure Zoraida Rodarte APRN.UI ARCHITECT Work Phone: Neurology Comment on above: Chronic migraine wit hout aura, intractable, without status migrainosus (Primary Dx) Start: 10-24-2023 Telephone encounter Mushtaq Alvarez APRN.UI ARCHITECT Work Phone: [facility] Comment on above: Nurtec- NOT APPROVED Start: 10-21-2023 End: 10-21-2023 Subsequent hospital visit by physician Jeb [facility] [place] Work Phone: Radiology Comment on above: Cervical radiculopat hy [M54.12] Start: 10-21-2023 End: 10-21-2023 Office outpatient visit 15 minutes Tomasa Laguerre APRN.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 Work Phone: [facility] [place] Comment on above: Cervical radiculopat hy (Primary Dx); Numbness and tingling in both hands Start: 10-21-2023 End: 10-21-2023 ambulatory Jes Fuentes MD Work Phone: [facility] [place] Comment on above: Numbness (tingling) Start: 10-20-2023 Refill Ofelia Delaney APRN.UI ARCHITECT Work Phone: [facility] [place] Comment on above: Refill Request Start: 10-19-2023 Refill Mushtaq Tillman.UI ARCHITECT Work Phone: Neurology Comment on above: Med Change Request Start: 10-18-2023 End: 10-18-2023 Patient encounter procedure Chio Ash APRN.UI ARCHITECT Work Phone: OB/Gynecology Comment on above: Encounter for gyneco logical examination with abnormal finding (Primary Dx); Pelvic pain in female; Mastalgia; Mass overlapping multiple quadrants of right breast; Cervical cancer screening; Encounter for screening for human papillomavirus (HPV) Start: 10-18-2023 End: 10-18-2023 Patient encounter status Chio Ash APRN.UI ARCHITECT Work Phone: [facility] Work Phone: Start: 10-18-2023 Telephone encounter Jes Fuentes MD Work Phone: [facility] [place] Comment on above: Insurance Authorizat ion (zofran) Start: 10-17-2023 Telephone encounter Mushtaq Alvarez APRN.UI ARCHITECT Work Phone: Neurology [facility] Comment on above: JAVIER Chua Start: 10-14-2023 End: 10-14-2023 Office outpatient visit 15 minutes Tomasa Laguerre APRN.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 Work Phone: [facility] [place] Comment on above: Thrombocytosis (Prim scott Dx); Myalgia; Palpitations; Nausea Start: 10-14-2023 Telephone encounter Tomasa Laguerre APRN.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 Work Phone: [facility] [place] Comment on above: Appointment Start: 10-12-2023 Telephone encounter Zoraida Rodarte APRN.UI ARCHITECT Work Phone: Neurology Comment on above: Patient Update Start: 10-11-2023 Telephone encounter Jes Fuentes MD Work Phone: [facility] Comment on above: Results Start: 10-03-2023 End: 10-03-2023 ambulatory Infusion Main Chair 9 Work Phone: Neurology Comment on above: Intractable chronic 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 (Primary Dx) Start: 09-12-2023 Telephone encounter Tomasa Laguerre APRN.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 Work Phone: [facility] [place] Start: 09-09-2023 End: 09-09-2023 Subsequent hospital visit by physician Jeb [facility] [place] Work Phone: Radiology Comment on above: Palpitations [R00.2] Start: 09-09-2023 End: 09-09-2023 Office outpatient visit 15 minutes Tomasa Laguerre 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.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 Work Phone: [facility] Comment on above: Palpitations (Primar y Dx); Hypertension, essential; Orthostatic hypotension Start: 2023 End: 2023 ambulatory Infusion Main Chair 2 Work Phone: Neurology Comment on above: Intractable chronic 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 (Primary Dx) Start: 2023 End: 2023 Patient encounter procedure Christie Linares APRN.UI ARCHITECT Work Phone: Neurology Comment on above: Intractable chronic 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 (Primary Dx) Start: 08-12-2023 Telephone encounter Russ clifton PA-C Work Phone: Neurology Start: 08-10-2023 Telephone encounter Zoraida Rodarte APRN.UI ARCHITECT Work Phone: Neurology Comment on above: Infusion Start: 08-04-2023 End: 08-04-2023 Office outpatient visit 25 minutes Tomasa Laguerre APRN.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 Work Phone: [facility] Comment on above: Hypertension, essent ial (Primary Dx); Vitamin D deficiency; BLAISE (obstructive sleep apnea); Anxiety with depression; Leukocytosis, unspecified type Start: 08-03-2023 Telephone encounter Zoraida Rodarte APRN.UI ARCHITECT Work Phone: Neurology Comment on above: Botox Injection; Ref erral Request Start: 08-02-2023 End: 08-02-2023 Patient encounter procedure Zoraida Rodarte APRN.UI ARCHITECT Work Phone: Neurology Comment on above: Chronic migraine wit hout aura, intractable, without status migrainosus (Primary Dx) Start: 07-25-2023 ambulatory [facility] Neurology Comment on above: Migraine Start: 07-21-2023 End: 07-21-2023 Patient encounter procedure Zoraida Rodarte APRN.UI ARCHITECT Work Phone: Neurology Comment on above: Chronic migraine wit hout aura, intractable, without status migrainosus (Primary Dx); Cervicalgia; Bilateral occipital neuralgia Start: 07-06-2023 End: 07-06-2023 Subsequent hospital visit by physician Jeb [facility] [place] Work Phone: Radiology Comment on above: Acute pain of right knee [M25.561] Start: 07-06-2023 End: 07-06-2023 Patient encounter procedure Jes Fuentes MD Work Phone: [facility] Comment on above: Acute pain of right knee (Primary Dx); Hypertension, essential; Eosinophilic esophagitis Start: 06-24-2023 End: 06-24-2023 ambulatory Infusion Main Chair 1 Work Phone: Neurology Comment on above: Intractable chronic 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 (Primary Dx) Start: 06-17-2023 Telephone encounter Nelly coleman MD Work Phone: General Surgery Comment on above: Patient Update (Pain at lower throat) Start: 06-10-2023 End: 06-10-2023 Patient encounter procedure Nelly Loco MD Work Phone: General Surgery Comment on above: Epigastric pain (Flaca antonio Dx); Dyspepsia; Nausea Start: 06-10-2023 End: 03-20-2024 Telephone encounter Nelly Loco MD Work Phone: General Surgery Comment on above: 06/16/2023 EGD ASC Start: 06-03-2023 End: 06-03-2023 Subsequent hospital visit by physician [facility] Work Phone: Radiology Comment on above: Acute pain of right shoulder [M25.511] Start: 04-29-2023 Refill Jes Fuentes MD Work Phone: Family Medicine [place] Comment on above: Refill Request Start: 04-27-2023 End: 04-27-2023 ambulatory Dimas Chad PT Work Phone: [facility] Comment on above: Left-sided low back pain with left-sided sciatica, unspecified chronicity (Primary Dx) Start: 04-22-2023 End: 04-22-2023 ambulatory Dimas Chad PT Work Phone: [facility] Comment on above: Left-sided low back pain with left-sided sciatica, unspecified chronicity (Primary Dx) Start: 04-08-2023 End: 04-08-2023 ambulatory Dimas Chad PT Work Phone: [facility] Comment on above: Left-sided low back pain with left-sided sciatica, unspecified chronicity (Primary Dx) Start: 04-01-2023 End: 04-01-2023 ambulatory Dimas Chad PT Work Phone: [facility] Comment on above: Left-sided low back pain with left-sided sciatica, unspecified chronicity (Primary Dx) Start: 03-18-2023 End: 03-18-2023 ambulatory Dimas Chad PT Work Phone: [facility] Comment on above: Left-sided low back pain with left-sided sciatica, unspecified chronicity (Primary Dx) Start: 03-18-2023 End: 03-18-2023 ambulatory Infusion Main Chair 9 Work Phone: Neurology Comment on above: Intractable chronic 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 (Primary Dx) Start: 03-10-2023 End: 03-10-2023 ambulatory Dimas Chad PT Work Phone: [facility] Comment on above: Left-sided low back pain with left-sided sciatica, unspecified chronicity (Primary Dx) Start: 03-04-2023 End: 03-04-2023 ambulatory Dimas Chad PT Work Phone: [facility] Comment on above: Left-sided low back pain with left-sided sciatica, unspecified chronicity (Primary Dx) Start: 03-02-2023 Refill Whitney Pipo brunner MD Work Phone: Neurology Comment on above: Refill Request Start: 02-24-2023 End: 02-24-2023 ambulatory Dimas Chad PT Work Phone: [facility] Comment on above: Left-sided low back pain with left-sided sciatica, unspecified chronicity (Primary Dx) Start: 02-21-2023 End: 02-21-2023 Office outpatient visit 25 minutes Ofelia Delaney APRN.UI ARCHITECT Work Phone: [facility] Comment on above: Left-sided low back pain with right-sided sciatica, unspecified chronicity (Primary Dx); Stress incontinence Start: 02-01-2023 End: 02-01-2023 Patient encounter procedure Zoraida Rodarte APRN.UI ARCHITECT Work Phone: Neurology Comment on above: Chronic migraine wit hout aura, intractable, without status migrainosus (Primary Dx); Intractable chronic 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 Start: 12-24-2022 End: 12-24-2022 ambulatory Infusion Main Chair 7 Work Phone: Neurology Comment on above: Intractable chronic 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 (Primary Dx) Start: 12-15-2022 Telephone encounter Ofelia marin APRN.UI ARCHITECT Work Phone: [facility] [place] Comment on above: Results Start: 12-13-2022 Telephone encounter Saleem emery MD Work Phone: Hematology/Oncology Comment on above: Results Start: 12-04-2022 Refill Whitney brunner MD Work Phone: Neurology Comment on above: Refill Request Start: 11-15-2022 Telephone encounter Ofelia marin APRN.UI ARCHITECT Work Phone: [facility] [place] Comment on above: Results Start: 11-12-2022 End: 11-12-2022 Office outpatient visit 25 minutes Ofelia Delaney APRN.UI ARCHITECT Work Phone: [facility] [place] Comment on above: Fatigue, unspecified type (Primary Dx); Nausea; Elevated glucose; Leukocytosis, unspecified type; Delayed gastric emptying Start: 11-09-2022 End: 11-09-2022 Emergency department patient visit JES ANTONIO [facility] Start: 11-02-2022 End: 11-02-2022 Patient encounter procedure Zoraida Rodarte APRN.UI ARCHITECT Work Phone: Neurology Comment on above: Chronic migraine wit hout aura, intractable, without status migrainosus (Primary Dx) Start: 10-29-2022 End: 10-29-2022 Patient encounter procedure Jes Fuentes MD Work Phone: [facility] [place] Comment on above: Fatigue, unspecified type (Primary Dx); Malaise; Epigastric pain; Elevated BP without diagnosis of hypertension; Low grade fever; Nausea; History of leukocytosis Start: 08-13-2022 End: 08-13-2022 Patient encounter procedure Sherice Hall APRN.UI ARCHITECT [facility] Comment on above: Alford eye disease of left eye (Primary Dx) Start: 08-03-2022 End: 08-03-2022 Patient encounter procedure Zoraida Rodarte APRN.UI ARCHITECT Work Phone: Neurology Comment on above: Chronic migraine wit hout aura, intractable, without status migrainosus (Primary Dx) Start: 06-28-2022 Telephone encounter Zoraida Aster ACOSTA Work Phone: Neurology Comment on above: Insurance Authorizat ion ([facility]) Start: 06-15-2022 Refill Zoraida Mcfarlane josé PERES.UI ARCHITECT Work Phone: Neurology Comment on above: Refill Request Start: 06-13-2022 ambulatory Zoraida Powersguillermo kumar APRN.UI ARCHITECT Work Phone: Neurology Comment on above: Migraine Start: 06-11-2022 End: 06-11-2022 ambulatory Infusion Main Chair 6 Work Phone: Neurology Comment on above: Intractable chronic 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 (Primary Dx) Start: 06-09-2022 End: 06-09-2022 ambulatory Infusion Main Chair 9 Work Phone: Neurology Comment on above: Intractable chronic 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 (Primary Dx) Start: 06-07-2022 Telephone encounter Zoraida Aster PERES.UI ARCHITECT Work Phone: [facility] Comment on above: Insurance Authorizat ion (Prior Auth Denied: Peer to peer requested for [employer]) Start: 06-01-2022 End: 06-01-2022 Patient encounter procedure Russ Cha Work Phone: Podiatry Comment on above: Plantar fasciitis (P rimary Dx); Foot pain, bilateral Start: 05-28-2022 Chart abstracting Madyson WILLIAMSON Work Phone: Adult Psychology Start: 05-28-2022 End: 05-28-2022 ambulatory Zoraida Rodarte APRN.UI ARCHITECT Work Phone: Neurology Comment on above: Chronic daily headac he (Primary Dx); Intractable chronic 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 Start: 05-28-2022 End: 05-28-2022 Telemedicine consultation with patient Zoraida Powersguillermojosé DAVE Work Phone: [facility] Start: 05-26-2022 End: 05-26-2022 Emergency department patient visit Dr. Jes Fuentes Work Phone: [facility]Emergency Department Start: 05-26-2022 ambulatory Zoraida kumar APRN.UI ARCHITECT Work Phone: Neurology Comment on above: Bad migraine Start: 05-04-2022 End: 05-04-2022 Patient encounter procedure Zoraida Rodarte APRN.UI ARCHITECT Work Phone: Neurology Comment on above: Chronic migraine wit hout aura, intractable, without status migrainosus (Primary Dx) Start: 04-21-2022 Refill Nelly Camarena APRN.UI ARCHITECT, DNP Work Phone: [facility] Comment on above: Refill Request Start: 04-12-2022 End: 04-12-2022 Subsequent hospital visit by physician [facility] [place] Work Phone: Radiology Comment on above: Foot pain, bilateral [M79.671, M79.672] Start: 04-12-2022 End: 04-12-2022 Patient encounter procedure Jes Fuentes MD Work Phone: [facility] Comment on above: Foot pain, bilateral (Primary Dx); Plantar fasciitis Start: 02-22-2022 Telephone encounter Jes Fuentes MD Work Phone: [facility] [place] Comment on above: Results Start: 02-19-2022 ambulatory Jes Fuentes MD Work Phone: [facility] Comment on above: stress test Start: 02-19-2022 E-mail encounter fro m caregiver Jes Fuentes MD Work Phone: [facility] Start: 02-19-2022 Non-patient / Non-visit Dr. Vincenzo Fuentes Work Phone: [facility] Start: 02-19-2022 End: 02-19-[address] Jes Fuentes Work Phone: [facility]Cardi[facility] Services Start: 02-02-2022 End: 02-02-2022 Patient encounter procedure Whitney Emmanuel MD Work Phone: Neurology Comment on above: Intractable chronic 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 (Primary Dx) Start: 01-25-2022 Telephone encounter Jes Fuentes MD Work Phone: [facility] [place] Comment on above: Results Start: 01-22-2022 End: 01-22-2022 Subsequent hospital visit by physician [facility] [place] Work Phone: Radiology Comment on above: Palpitations [R00.2] Start: 12-21-2021 ambulatory Jes Fuentes MD Work Phone: [facility] [place] Comment on above: Palpitations Start: 12-17-2021 ambulatory Jes Fuentes MD Work Phone: [facility] [place] Comment on above: High resting heart r ate Start: 11-25-2021 Telephone encounter Soraida coleman APRN.UI ARCHITECT Work Phone: [facility] [place] Comment on above: Results Start: 11-25-2021 End: 11-25-2021 Subsequent hospital visit by physician [facility] [place] Work Phone: Radiology Comment on above: Chronic right-sided low back pain with right-sided sciatica [M54.41, G89.29] Start: 11-25-2021 End: 11-25-2021 Patient encounter procedure Soraida Gardner APRN.UI ARCHITECT Work Phone: [facility] [place] Comment on above: Chronic right-sided low back pain with right-sided sciatica (Primary Dx) Start: 11-17-2021 Telephone encounter Jes Fuentes MD Work Phone: [facility] [place] Comment on above: Tetanus Vaccine Ques tion Start: 10-20-2021 ambulatory Elizabeth jaquez PA-C Work Phone: [facility] [place] Comment on above: Arm pain Start: 10-08-2021 End: 10-08-2021 Patient encounter procedure Elizabeth Rosario PA-C Work Phone: [facility] [place] Comment on above: Sprain of right elbo w, subsequent encounter (Primary Dx) Start: 09-30-2021 End: 09-30-2021 Emergency department patient visit No Primary Care Physician [facility]-Emergency Department Start: 09-11-2021 End: 09-11-2021 Patient encounter procedure Jes Fuentes MD Work Phone: [facility] Comment on above: Leukocytosis, unspec ified type (Primary Dx); Anxiety with depression Start: 09-10-2021 End: 09-10-2021 Subsequent hospital visit by physician [facility] Work Phone: Radiology Comment on above: Goiter, nontoxic, mu ltinodular [E04.2] Start: 08-17-2021 ambulatory Jes Fuentes MD Work Phone: [facility] Comment on above: work note Start: 08-17-2021 Chart abstracting Madyson WILLIAMSON Work Phone: Adult Psychology Start: 08-17-2021 End: 08-17-2021 Patient encounter procedure Jes Fuentes MD Work Phone: [facility] Comment on above: Dental infection (Pr imary Dx); Migraine without aura, intractable, with status migrainosus; Mild asthma without complication, unspecified whether persistent; Goiter, nontoxic, multinodular; Leukocytosis, unspecified type; Anxiety with depression Start: 08-08-2021 ambulatory Zoraida kumar APRN.CNP Work Phone: Neurology Comment on above: Migraine Start: 07-21-2021 Non-patient / Non-visit No [facility] Physician [facility] Inpatient Physicians Start: 07-21-2021 Non-patient / Non-visit No [facility] Physician [facility] Start: 07-20-2021 End: 07-21-2021 Evaluation and management of inpatient No Primary Care Physician [facility]-Medical Surgical 3 Procedures Date Procedure Procedure Detail Performing Clinician Start: 10-24-[address] Jes rowe MD Work Phone: Start: 08-13-2024 Computed tomography of abdomen and pelvis with intravenous contrast Dr. Jes Fuentes MD Work Phone: Start: 08-13-[address] Brian Fuentes MD Work Phone: Start: 08-06-[address] Jes Fuentes MD Work Phone: Start: 06-14-2024 Echocardiography JES FUENTES Start: 05-14-2024 Digital breast tomosynthesis bilateral Mary Stacy PERES.UI ARCHITECT Work Phone: Start: 04-06-2024 Mri brain brain stem w/o w/contrast material Zoraida Rodarte APRN.UI ARCHITECT Work Phone: Start: 03-22-2024 Us pelvic nonobstetric real-time image complete Mary Schmitzpatricia PERES.UI ARCHITECT Work Phone: Start: 11-25-2023 Ecg routine ecg w/least 12 lds i&r only Jes Fuentes MD Work Phone: Start: 11-16-2023 Us breast uni real time with image limited Ken Hill MD Work Phone: Start: 11-16-2023 Digital breast tomosynthesis bilateral Ken Hill MD Work Phone: Start: 11-09-2023 Us breast uni real time with image limited Chio Ash APRN.UI ARCHITECT Work Phone: Start: 11-09-2023 Digital breast tomosynthesis bilateral Chio Ash APRN.UI ARCHITECT Work Phone: Start: 10-21-2023 Radex spine cervical 4 or 5 views Michelle line Zamzam Laguerre APRN.UI ARCHITECT Work Phone: Start: 09-09-2023 Radiologic exam chest 2 views Tomasa Laguerre APRN.UI ARCHITECT Work Phone: Start: 09-09-2023 Ecg routine ecg w/least 12 lds i&r only Tomasa Laguerre 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.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 Jes Fuentes Work Phone: Start: 04-12-2022 Radex foot complete minimum 3 views Will chon Fuentes MD Work Phone: Start: 02-02-2022 Adult depression screening assessment Whitney Emmanuel MD Work Phone: Start: 01-22-2022 Radiologic exam chest 2 views Jes Fuentes MD Work Phone: Start: 11-25-2021 Radex spine lumbosacral 2/3 views Soraida Gardner 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.UI ARCHITECT Work Phone: Start: 11-06-2021 Adult depression screening assessment Jes Fuentes MD Work Phone: Start: 09-10-2021 Us soft tissue head & neck real time imge docm Jes Fuentes MD Work Phone: Start: 07-21-2021 Adult depression screening assessment Zoraida Rodarte 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.UI ARCHITECT Work Phone: Start: 07-20-2021 End: 07-20-2021 Viral antigen assay No Primary Care Physician Start: 07-20-2021 Plain chest X-ray No Primary Care Physician Plan of Treatment Date Care Activity Detail Author Start: 10-17-2028 Screening for malignant neoplasm of cervix Cervical Cancer Screening [facility] Start: 10-23-2025 End: 10-23-2025 Patient encounter procedure 10/23/2025 3:30 PM EDT Office Visit OB/Gynecology [place] [address] Ash, Chio, 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.UI ARCHITECT [address] [place] [address] Annual OB/Gynecology Comment on above: Annual Start: 09-23-2025 Urine microalbumin profile [facility] Start: 08-16-2025 BP Controlled (<130/80) BP Controlled (<130/80) [facility] Start: 05-15-2025 Annual PCP Team Chronic Disease Visit Annual PCP Team Chronic Disease Visit [facility] Start: 05-14-2025 BP Controlled (<130/80) BP Controlled (<130/80) [facility] Start: 04-27-2025 BP Controlled (<130/80) BP Controlled (<130/80) [facility] Start: 04-18-2025 BP Controlled (<130/80) BP Controlled (<130/80) [facility] in Start: 03-21-2025 BP Controlled (<130/80) BP Controlled (<130/80) [place] [facility] Start: 01-27-2025 BP Controlled (<130/80) BP Controlled (<130/80) [place] Start: 01-14-2025 Influenza vaccination Influenza Vaccine (Season Ended) [facility] Start: 01-02-2025 End: 01-02-2025 Patient encounter procedure 01/02/2025 3:00 PM EDT Office Visit OB/Gynecology [address] [place] [address] Chio Ash APRN.UI ARCHITECT [address] [place] [address] wt mgmt f/u OB/Gynecology Comment on above: wt mgmt f/u Start: 12-26-2024 End: 12-26-2024 Patient encounter procedure 12/26/2024 9:00 AM EDT Office Visit Neurology [address] [place] [id number] Zoraida Rodarte, 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.UI ARCHITECT [address] [place] [address] 3 month Botox Neurology Comment on above: 3 month Botox Start: 12-25-2024 Annual PCP Team Chronic Disease Visit Annual PCP Team Chronic Disease Visit [facility] Start: 12-05-2024 Annual PCP Team Chronic Disease Visit Annual PCP Team Chronic Disease Visit [facility] Start: 11-24-2024 Annual PCP Team Chronic Disease Visit Annual PCP Team Chronic Disease Visit [facility] Start: 11-24-2024 BP Controlled (<130/80) BP Controlled (<130/80) [facility] in Start: 11-23-2024 Annual PCP Team Chronic Disease Visit Annual PCP Team Chronic Disease Visit [facility] Start: 10-24-2024 Egd transoral biopsy single/multiple EGD BIOPSY SINGLE/MULTIPLE [facility] Start: 10-24-2024 Patient discharge [facility] Start: 10-19-2024 End: 10-19-2024 Patient encounter procedure 10/19/2024 2:30 PM EDT Office Visit OB/Gynecology [address] [place] [address] Chio Ash APRN.UI ARCHITECT [address] [place] [address] ANNUAL OB/Gynecology Comment on above: ANNUAL Start: 10-18-2024 End: 10-18-2024 Patient encounter procedure OB/Gynecology Comment on above: ANNUAL Start: 10-13-2024 BP Controlled (<130/80) BP Controlled (<130/80) [facility] in Start: 10-05-2024 End: 10-05-2024 ambulatory 10/05/2024 3:15 PM EDT Results Only [facility] Q2-1 [place] [address] [address] lab [facility] Q2-1 [place] Comment on above: lab Start: 10-05-2024 End: 10-05-2024 Patient encounter procedure 10/05/2024 2:00 PM EDT Office Visit Functional Medicine [address] [address] Sergei Pinedo MD [address] [place], [place] [id number] Dx: Intestinal dysbiosis [K59.89]; Diarrhea, unspecified type [R19.7]; 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] Functional Medicine Comment on above: Dx: Intestinal dysbiosis [K59.89]; Diarr hea, unspecified type [R19.7]; 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 [address] wt mgnt f/u OB/Gynecology Comment on above: wt mgnt f/u Start: 09-08-2024 BP Controlled (<130/80) BP Controlled (<130/80) [place] Start: 09-07-2024 End: 09-07-2024 Patient encounter procedure 09/07/2024 2:00 PM EDT Office Visit Neurology [address] [place] [address] Dx: BLAISE (obstructive sleep apnea) [G47.33]; Weight loss [R63.4] Neurology Comment on above: Dx: BLAISE (obstructive sleep apnea) [G47.3 3]; Weight loss [R63.4] Start: 08-31-2024 End: 11-30-2024 Ascorbate [Mass/volume] in Serum or Plasma VITAMIN C Lab Routine Thrombocytosis Leukocytosis, unspecified type Iron malabsorption Expected: 08/31/2024 (Approximate), Expires: 11/30/2024 [facility] Comment on above: Expected: 08/31/2024 (Approximate), Expi res: 11/30/2024 Start: 08-31-2024 End: 11-30-2024 CBC W Auto Differential panel - Blood COMPLETE BLOOD COUNT AND DIFFERENTIAL Lab STAT Thrombocytosis Leukocytosis, unspecified type Iron malabsorption Expected: 08/31/2024 (Approximate), Expires: 11/30/2024 [facility] Work Phone: Comment on above: Expected: 08/31/2024 (Approximate), Expi res: 11/30/2024 Start: 08-31-2024 End: 11-30-2024 Cobalamin (Vitamin B12) [Mass/volume] in Serum or Plasma VITAMIN B12 Lab Routine Thrombocytosis Leukocytosis, unspecified type Iron malabsorption Expected: 08/31/2024 (Approximate), Expires: 11/30/2024 [facility] Comment on above: Expected: 08/31/2024 (Approximate), Expi res: 11/30/2024 Start: 08-31-2024 End: 11-30-2024 Ferritin [Mass/volume] in Serum or Plasma FERRITIN Lab Routine Thrombocytosis Leukocytosis, unspecified type Iron malabsorption Expected: 08/31/2024 (Approximate), Expires: 11/30/2024 [facility] Comment on above: Expected: 08/31/2024 (Approximate), Expi res: 11/30/2024 Start: 08-31-2024 End: 11-30-2024 Iron and Iron binding capacity panel - Serum or Plasma IRON AND TIBC Lab Routine Thrombocytosis Leukocytosis, unspecified type Iron malabsorption Expected: 08/31/2024 (Approximate), Expires: 11/30/2024 [facility] Comment on above: Expected: 08/31/2024 (Approximate), Expi res: 11/30/2024 Start: 08-31-2024 End: 11-30-2024 Methylmalonate [Moles/volume] in Serum or Plasma METHYLMALONIC ACID Lab Routine Thrombocytosis Leukocytosis, unspecified type Iron malabsorption Expected: 08/31/2024 (Approximate), Expires: 11/30/2024 [facility] Comment on above: Expected: 08/31/2024 (Approximate), Expi res: 11/30/2024 Start: 08-16-2024 End: 08-16-2024 Patient encounter procedure 08/16/2024 2:30 PM EDT Office Visit Cardiology [address] [address] Germania Dahl APRN.UI ARCHITECT [address] [place] [address] 3 month follow up Cardiology Comment on above: 3 month follow up Start: 08-13-2024 [facility] Start: 08-06-2024 Colonoscopy w/biopsy single/multiple COLONOSCOPY AND BIOPSY [facility] Start: 08-06-2024 Patient discharge [facility] Start: 08-03-2024 End: 08-03-2024 ambulatory 08/03/2024 8:30 AM EDT Visit (SP) Office Hematology/Oncology [address] [place], [place] [id number] Aruna Hunter [address] [place] [address] 6 MO OV/LABS PRIOR-PT WILL DO WALK IN* Hematology/Oncology Comment on above: 6 MO OV/LABS PRIOR-PT WILL DO WALK IN* Start: 08-01-2024 BP Controlled (<130/80) BP Controlled (<130/80) [facility] in Start: 07-20-2024 End: 07-20-2024 Patient encounter procedure 07/20/2024 10:00 AM EST Office Visit Neurology [address] [place] [address] Russ De Dios PA-C [address] [place] [address] INFUSION DAY 2 Neurology Comment on above: INFUSION DAY 2 Start: 07-20-2024 End: 07-20-2024 ambulatory [facility] Comment on above: LAB* 6 MO OV* DHE 2 Start: 07-19-2024 End: 07-19-2024 Patient encounter procedure 07/19/2024 2:30 PM EST Office Visit Neurology [address] [place] [address] Kyra Weiss, 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.UI ARCHITECT [address] [place] [address] INFUSION DAY 2 Neurology Comment on above: INFUSION DAY 2 Start: 07-19-2024 End: 07-19-2024 ambulatory 07/19/2024 11:00 AM EST Infusion Center Neurology [address] [place] [address] DHE 1 Neurology Comment on above: DHE 1 Start: 07-11-2024 End: 07-11-2024 Patient encounter procedure 07/11/2024 2:30 PM EST Office Visit Neurology [address] [address] Zoraida Rodarte, 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.UI ARCHITECT [address] [place] [address] botox Neurology Comment on above: botox Start: 07-06-2024 End: 07-06-2024 Patient encounter procedure Neurology Comment on above: Palpitations [R00.2] DME DASCO Start: 07-06-2024 Annual PCP Team Chronic Disease Visit Annual PCP Team Chronic Disease Visit [facility] Start: 07-03-2024 End: 07-03-2024 Patient encounter procedure 07/03/2024 3:30 PM EST Office Visit OB/Gynecology [address] [place], [place] [id number] Chio Ash, 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.UI ARCHITECT [address] [place] [place] [address] Wt mgmt f/up OB/Gynecology Comment on above: Wt mgmt f/up Start: 06-03-2024 Annual PCP Team Chronic Disease Visit Annual PCP Team Chronic Disease Visit [facility] Start: 05-29-2024 End: 05-29-2024 Patient encounter procedure 05/29/2024 1:20 PM EST Office Visit Cardiology [address] [address] Hilda Orellana, DO [address] [place] [address] SVT (supraventricular tachycardia) (HCC) [I47.10] Cardiology Comment on above: SVT (supraventricular tachycardia) (HCC) [I47.10] Start: 05-15-2024 End: 08-14-2024 C reactive protein [Mass/volume] in Serum or Plasma [facility] Comment on above: Expected: 05/15/2024, Expires: Start: 05-15-2024 End: 08-14-2024 Calprotectin [Mass/mass] in Stool CALPROTECTIN,FECAL Lab Routine Diarrhea, unspecified type Expected: 05/15/2024, Expires: 08/14/2024 [facility] Comment on above: Expected: 05/15/2024, Expires: Start: 05-15-2024 End: 08-14-2024 CELIAC SCREEN WITH REFLEX [facility] ic Comment on above: Expected: 05/15/2024, Expires: Start: 05-15-2024 End: 08-14-2024 Clostridioides difficile toxin genes [Presence] in Stool by ROSELINE with probe detection C. DIFFICILE PCR Lab Routine Diarrhea, unspecified type Expected: 05/15/2024, Expires: 08/14/2024 [facility] Comment on above: Expected: 05/15/2024, Expires: Start: 05-15-2024 End: 08-14-2024 Comprehensive metabolic 2000 panel - Serum or Plasma [facility] Work Phone: Comment on above: Expected: 05/15/2024, Expires: Start: 05-15-2024 End: 05-15-2025 ENTERIC BACTERIAL PANEL BY PCR ENTERIC BACTERIAL PANEL BY PCR Lab Routine Diarrhea, unspecified type Expected: 05/15/2024, Expires: 05/15/2025 [facility] Comment on above: Expected: 05/15/2024, Expires: Start: 05-15-2024 End: 08-14-2024 Giardia lamblia+Cryptosporidium sp Ag [Presence] in Stool by Immunoassay CRYPTOSPORIDIUM AND GIARDIA ANTIGENS BY EIA Microbiology Routine Diarrhea, unspecified type Expected: 05/15/2024, Expires: 08/14/2024 [facility] Comment on above: Expected: 05/15/2024, Expires: Start: 05-15-2024 End: 08-14-2024 Magnesium [Mass/volume] in Serum or Plasma [facility] Comment on above: Expected: 05/15/2024, Expires: Start: 05-15-2024 End: 05-15-2025 Norovirus Ag [Presence] in Stool [employer]OV[employer] 1 AND 2 Lab Routine Diarrhea, unspecified type Expected: 05/15/2024, Expires: 05/15/2025 [facility] Comment on above: Expected: 05/15/2024, Expires: Start: 05-15-2024 End: 08-14-2024 Thyrotropin [Units/volume] in Serum or Plasma [facility] Comment on above: Expected: 05/15/2024, Expires: Start: 05-15-2024 End: 05-15-2024 Patient encounter procedure 05/15/2024 11:20 AM EST Office Visit Family [facility] [address] [place] [address] Ofelia Delaney, 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.UI ARCHITECT [address] [place] [address] Constant diarrhea for a month [facility] Comment on above: Constant diarrhea for a month Start: 05-14-2024 End: 05-14-2024 Patient encounter procedure Mammography Comment on above: R92.8,BILAT BREAST MAMMO AND US L AND R, PT CALLING,ORDERS IN EPIC Start: 04-26-2024 End: 04-26-2024 Patient encounter procedure 04/26/2024 10:30 AM EST Office Visit Neurology [address] [place] [id number] Zoraida Rodarte, 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.UI ARCHITECT [address] [place] [address] 3 months for Botox Neurology Comment on above: 3 months for Botox Start: 04-18-2024 End: 04-18-2024 Patient encounter procedure 04/18/2024 1:45 PM EST Office Visit Neurology [facility] [address] Zoraida Rodarte APRN.UI ARCHITECT [address] [place] [address] 3 months for Botox Neurology Comment on above: 3 months for Botox Start: 04-11-2024 End: 04-11-2024 Patient encounter procedure 04/11/2024 3:15 PM EST Office Visit OB/Gynecology [address] [place] [address] Mary Kumar APRN.UI ARCHITECT [address] [place] [address] IUD f/up OB/Gynecology Comment on above: IUD f/up Start: 04-06-2024 End: 04-06-2024 Patient encounter procedure 04/06/2024 10:40 AM EST Appointment Radiology [address] [place] [address] Worsening headaches [R51.9] Radiology Comment on above: Worsening headaches [R51.9] Start: 04-04-2024 End: 07-04-2024 CBC panel - Blood by Automated count COMPLETE BLOOD COUNT Lab Routine Encounter for IUD removal Abnormal uterine bleeding (AUB) Expected: 04/04/2024, Expires: 07/04/2024 [facility] Work Phone: Comment on above: Expected: 04/04/2024, Expires: Start: 03-28-2024 End: 03-28-2024 Patient encounter procedure 03/28/2024 10:10 AM EST Office Visit OB/Gynecology [address] [place] [address] Danish Hernandez MD [address] [place] [address] iud removal OB/Gynecology Comment on above: iud removal Start: 03-22-2024 End: 03-22-2024 Patient encounter procedure 03/22/2024 9:00 AM EST Office Visit OB/Gynecology [address] [place] [address] Emi Hall MD [address] [place] [place] [address] follow up from u/s per Dr. Hernandez OB/Gynecology Comment on above: follow up from u/s per Dr. Hernandez Start: 03-22-2024 End: 03-22-2024 ambulatory 03/22/2024 8:30 AM EST Procedure OB/Gynecology [address] [place] [address] [facility] [address] [place] [address] Encounter for routine checking of intrauterine contraceptive device (IUD) [Z30.4... OB/Gynecology Comment on above: Encounter for routine checking of intrau terine contraceptive device (IUD) [Z30.4... Start: 03-21-2024 PAP TESTING PAP TESTING [facility] Start: 03-21-2024 Screening for malignant neoplasm of cervix [facility] Start: 03-19-2024 End: 03-19-2025 US Pelvis PELVIC US [facility] Anc Imaging Routine Encounter for routine checking of intrauterine contraceptive device (IUD) Expected: 03/19/2024, Expires: 03/19/2025 [facility] Work Phone: Comment on above: Expected: 03/19/2024, Expires: Start: 03-09-2024 End: 03-09-2024 Patient encounter procedure 03/09/2024 3:15 PM EDT Office Visit OB/Gynecology [address] [place] [address] Mary Kumar APRN.UI ARCHITECT [address] [place] [place] [address] Insert OB/Gynecology Comment on above: Insert Start: 03-09-2024 End: 03-09-2024 Patient encounter procedure 03/09/2024 10:45 AM EDT Office Visit OB/Gynecology [address] [place] [address] Mary Kumar, 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.UI ARCHITECT [address] [place] [place] [address] Insert OB/Gynecology Comment on above: Insert Start: 02-24-2024 End: 02-24-2024 Patient encounter procedure 02/24/2024 8:00 AM EDT Office Visit OB/Gynecology [address] [place] [address] Chio Ash, 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.UI ARCHITECT [address] [place] [address] Class 3 severe obesity in adult, unspecified BMI, unspecified obesity type, unspecified whether serious comorbidity present (HCC) [E66.01] OB/Gynecology Comment on above: Class 3 severe obesity in adult, unspeci fied BMI, unspecified obesity type, unspecified whether serious comorbidity present (HCC) [E66.01] Start: 02-22-2024 Annual PCP Team Chronic Disease Visit Annual PCP Team Chronic Disease Visit [facility] Start: 02-20-2024 End: 02-20-2024 ambulatory 02/20/2024 2:00 PM EDT Visit (SP) Office Hematology/Oncology [address] [place] [address] 2ND Hematology/Oncology Comment on above: 2ND Start: 02-16-2024 End: 02-16-2024 ambulatory 02/16/2024 2:00 PM EDT Visit (SP) Office Hematology/Oncology [address] [place] [address] 2ND Hematology/Oncology Comment on above: 2ND Start: 02-14-2024 End: 02-14-2024 ambulatory 02/14/2024 3:00 PM EDT Visit (SP) Office Hematology/Oncology [address] [place] [address] 2ND Hematology/Oncology Comment on above: 2ND Start: 02-13-2024 End: 02-13-2024 ambulatory 02/13/2024 2:30 PM EDT Visit (SP) Office Hematology/Oncology [address] [place] [address] 2ND Hematology/Oncology Comment on above: 2ND Start: 02-10-2024 End: 02-10-2024 ambulatory 02/10/2024 3:00 PM EDT Visit (SP) Office Hematology/Oncology [address] [place] [address] 2ND Hematology/Oncology Comment on above: 2ND Start: 02-07-2024 End: 02-07-2024 ambulatory 02/07/2024 1:30 PM EDT Visit (SP) Office Hematology/Oncology [address] [place] [address] 2ND Hematology/Oncology Comment on above: 2ND Start: 01-25-2024 End: 01-25-2024 Patient encounter procedure 01/25/2024 1:45 PM EDT Office Visit Neurology [facility] [place] [address] Zoraida Rodarte APRN.UI ARCHITECT [address] [place] [address] Return in about 12 weeks (around 01/18/2024) for Botox. Neurology Comment on above: Return in about 12 weeks (around ) for Botox. Start: 01-19-2024 End: 04-19-2024 CBC W Auto Differential panel - Blood COMPLETE BLOOD COUNT AND DIFFERENTIAL Lab STAT Iron deficiency anemia due to chronic blood loss Iron malabsorption Thrombocytosis Expected: 01/19/2024, Expires: 04/19/2024 [facility] Work Phone: Comment on above: Expected: 01/19/2024, Expires: Start: 01-19-2024 End: 04-19-2024 Ferritin [Mass/volume] in Serum or Plasma FERRITIN Lab Routine Iron deficiency anemia due to chronic blood loss Iron malabsorption Thrombocytosis Expected: 01/19/2024, Expires: 04/19/2024 [facility] Comment on above: Expected: 01/19/2024, Expires: Start: 01-19-2024 End: 04-19-2024 Folate [Mass/volume] in Serum or Plasma FOLATE, SERUM Lab Routine Thrombocytosis Expected: 01/19/2024, Expires: 04/19/2024 [facility] Work Phone: Comment on above: Expected: 01/19/2024, Expires: Start: 01-19-2024 End: 04-19-2024 Iron and Iron binding capacity panel - Serum or Plasma IRON AND TIBC Lab Routine Iron deficiency anemia due to chronic blood loss Iron malabsorption Thrombocytosis Expected: 01/19/2024, Expires: 04/19/2024 [facility] Comment on above: Expected: 01/19/2024, Expires: Start: 01-19-2024 End: 01-19-2024 ambulatory [place] [facility] Laboratory Comment on above: lab 6 WK OV* Start: 01-15-2024 Covid-19 Vaccine ( season) Covid-19 Vaccine ( season) [facility] Start: 01-15-2024 Covid-19 Vaccine ( season) Covid-19 Vaccine ( season) [facility] Start: 01-15-2024 Influenza vaccination [facility] Start: 01-13-2024 End: 01-13-2024 Patient encounter procedure 01/13/2024 3:00 PM EDT Office Visit [facility] [place] [address] [facility] [place] [id number] Tomasa Laguerre APRN.[employer]ER[employer]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 [address] [place] [address] 3 month f/u [facility] [place] Comment on above: 3 month f/u Start: 01-02-2024 End: 04-02-2024 Iron and Iron binding capacity panel - Serum or Plasma [facility] Work Phone: Comment on above: Expected: 01/02/2024, Expires: 4 Start: 12-02-2023 End: 12-02-2023 Patient encounter procedure [facility] [place] Comment on above: 1 week follow up Start: 11-30-2023 End: 11-30-2023 ambulatory Hematology/Oncology Comment on above: Iron Sucrose/5-5(Auth.Exp.?)* IRON SUCROSE/5-5/AUT H EXP?* IRON SUCROSE/5-5/AUT H EXP 05/07/24* 2nd Start: 11-28-2023 End: 11-28-2023 ambulatory Hematology/Oncology Comment on above: Iron Sucrose/4-5(Auth.Exp.?)* IRON SUCROSE/4-5/AUT H EXP?* IRON SUCROSE/4-5/AUT H EXP 05/07/24* 2nd Start: 11-25-2023 End: 11-25-2023 ambulatory Hematology/Oncology Comment on above: Iron Sucrose/3-5(Auth.Exp.?)* IRON SUCROSE/3-5/AUT H EXP?* IRON SUCROSE/3-5/AUT H EXP 05/07/24* Start: 11-25-2023 End: 02-24-2024 Basic metabolic 2000 panel - Serum or Plasma [facility] Comment on above: Expected: 11/25/2023, Expires: Start: 11-25-2023 End: 02-24-2024 CBC W Auto Differential panel - Blood [facility] Work Phone: Comment on above: Expected: 11/25/2023, Expires: Start: 11-25-2023 End: 02-24-2024 Hemoglobin A1c in Blood [facility] Comment on above: Expected: 11/25/2023, Expires: Start: 11-25-2023 End: 02-24-2024 Magnesium [Mass/volume] in Serum or Plasma [facility] Comment on above: Expected: 11/25/2023, Expires: 4 Start: 11-25-2023 End: 02-24-2024 Thyrotropin [Units/volume] in Serum or Plasma [facility] Comment on above: Expected: 11/25/2023, Expires: Start: 11-25-2023 End: 11-25-2023 Patient encounter procedure 11/25/2023 8:20 AM EDT Office Visit Family [place] [address] [place], [place] [address] Jes Fuentes MD [address] [place], [place] [id number] 4 month follow up [facility] [place] Comment on above: 4 month follow up Start: 11-23-2023 End: 11-23-2023 ambulatory Hematology/Oncology Comment on above: Iron Sucrose/2-5(Auth.Exp.?)* IRON SUCROSE/2-5/AUT H EXP?* IRON SUCROSE/2-5/AUT H EXP 05/07/24* Start: 11-21-2023 End: 11-21-2023 ambulatory [place] [facility] Laboratory Comment on above: VON WILLEBRAND DX PANEL Iron Sucrose/1-5(Aut h.Exp.?)* START/IRON SUCROSE/1 -5/AUTH EXP?* SPECIAL TIRE CARE MANAGER SCHE DULED WITH RR START/IRON SUCROSE/1 -5/AUTH EXP 05/07/24* Start: 11-16-2023 End: 11-16-2023 Patient encounter procedure 11/16/2023 9:15 AM EDT Appointment Mammography [address] [id number] Bilateral diagnostic mammogram and Bilateral Ultrasound Mammography Comment on above: Bilateral diagnostic mammogram and Bilat eral Ultrasound Start: 11-15-2023 End: 11-15-2023 Patient encounter procedure 11/15/2023 3:40 PM EDT Office Visit [facility] [place] [address] [place] [address] Jes Fuentes MD [address] [facility] [place] [id number] 4 month follow up [facility] [place] Comment on above: 4 month follow up Start: 11-14-2023 End: 11-14-2023 Patient encounter procedure 11/14/2023 7:15 AM EDT Office Visit OB/Gynecology [address] [place] [address] Mary Kumar APRN.UI ARCHITECT [address] [place] [address] Continues to have Pelvic pain OB/Gynecology Comment on above: Continues to have Pelvic pain Start: 11-13-2023 ANNUAL PCP TEAM CHRONIC DISEASE VISIT ANNUAL PCP TEAM CHRONIC DISEASE VISIT [facility] Start: 11-13-2023 COVID-19 VACCINE (#1) COVID-19 VACCINE (#1) [facility] Comment on above: Postponed from 02/14/1991 (Declined at t his time) Start: 11-13-2023 Influenza vaccination Influenza Vaccine (#1) [facility] Comment on above: Postponed from 01/14/2023 (Declined at t his time) Start: 11-09-2023 End: 11-09-2023 Patient encounter procedure Mammogram Comment on above: TENDERNESS / LUMPY Comp- TENDERNESS / L UMPY of rt, left done in 2018 Start: 11-08-2023 End: 02-07-2024 VON WILLEBRAND DX PANEL VON [facility]IL[facility]AND DX PANEL Lab Routine Iron deficiency anemia due to chronic blood loss Iron malabsorption Menorrhagia with regular cycle Expected: 11/08/2023, Expires: 02/07/2024 [facility] Work Phone: Comment on above: Expected: 11/08/2023, Expires: Start: 11-07-2023 End: 11-07-2023 Patient encounter procedure General Surgery Comment on above: 1 month follow up, eosinophillic esophag itis ra follow up, eosinophi llic esophagitis, 06/27/23 AMEE w/ DP, 06/16/23 EGD ra Start: 11-04-2023 End: 02-03-2024 C reactive protein [Mass/volume] in Serum or Plasma C-REACTIVE PROTEIN Lab Routine Thrombocytosis Expected: 11/04/2023, Expires: 02/03/2024 [facility] Comment on above: Expected: 11/04/2023, Expires: Start: 11-04-2023 End: 02-03-2024 Cortisol [Mass/volume] in Serum or Plasma CORTISOL, SERUM Lab Routine Thrombocytosis Expected: 11/04/2023, Expires: 02/03/2024 [facility] Comment on above: Expected: 11/04/2023, Expires: Start: 11-04-2023 End: 02-03-2024 Erythrocyte sedimentation rate SEDIMENTATION RATE, WESTERGREN Lab Routine Thrombocytosis Expected: 11/04/2023, Expires: 02/03/2024 [facility] Comment on above: Expected: 11/04/2023, Expires: Start: 11-04-2023 End: 02-03-2024 Ferritin [Mass/volume] in Serum or Plasma FERRITIN Lab Routine Thrombocytosis Expected: 11/04/2023, Expires: 02/03/2024 [facility] Comment on above: Expected: 11/04/2023, Expires: Start: 11-04-2023 End: 02-03-2024 Iron and Iron binding capacity panel - Serum or Plasma IRON AND TIBC Lab Routine Thrombocytosis Expected: 11/04/2023, Expires: 02/03/2024 [facility] Work Phone: Comment on above: Expected: 11/04/2023, Expires: Start: 11-04-2023 End: 11-04-2023 ambulatory Hematology/Oncology Comment on above: DIRECTOR BUSINESS/ DX: Dx: Thrombocytosis [D75.839]Comm ent: monocytes are high, basophils up. EST PT/NEW DIAGNOSIS /TRANSFER OF CARE Start: 10-31-2023 End: 10-31-2023 Patient encounter procedure 10/31/2023 7:30 AM EDT Appointment Radiology [facility] [place] [address] Pelvic pain in female [R10.2] Radiology Comment on above: Pelvic pain in female [R10.2] Start: 10-30-2023 ANNUAL PCP TEAM CHRONIC DISEASE VISIT ANNUAL PCP TEAM CHRONIC DISEASE VISIT [facility] Start: 10-28-2023 End: 10-28-2023 Patient encounter procedure 10/28/2023 10:30 AM EDT Office Visit Neurology [address] [place] [address] Russ De Dios PA-C [address] [place] [address] INFUSION DAY 1 Neurology Comment on above: INFUSION DAY 1 Start: 10-28-2023 End: 10-28-2023 ambulatory 10/28/2023 9:30 AM EDT Infusion Center Neurology [address] [place] [address] DHE- 1 DAY Neurology Comment on above: DHE- 1 DAY Start: 10-26-2023 End: 10-26-2023 Patient encounter procedure 10/26/2023 1:00 PM EDT Office Visit Neurology [address] [place] [address] Zoraida Rodarte APRN.UI ARCHITECT [address] [place] [address] 12 week botox Neurology Comment on above: 12 week botox Start: 10-24-2023 End: 10-24-2023 Patient encounter procedure 10/24/2023 3:45 PM EDT Office Visit General Surgery [address] [place] [address] Nelly Loco MD [address] [place] [address] 1 month follow up, eosinophillic esophagitis ra General Surgery Comment on above: 1 month follow up, eosinophillic esophag itis ra Start: 10-18-2023 End: 10-18-2023 Patient encounter procedure 10/18/2023 2:00 PM EDT Office Visit OB/Gynecology [address] [place] [address] Chio Ash APRN.UI ARCHITECT [address] [place] [address] Routine exam + examine RT lower abdominal pain OB/Gynecology Comment on above: Routine exam + examine RT lower abdomina l pain Start: 10-14-2023 End: 10-14-2023 Patient encounter procedure 10/14/2023 3:20 PM EDT Office Visit [facility] [place] [address] [facility] [place] [address] Tomasa Laguerre APRN.[employer]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 [address] [facility] [place], [place] [id number] 1month follow up [facility] [place] Comment on above: 1month follow up Start: 10-12-2023 End: 01-11-2024 Calcium.ionized [Moles/volume] in Blood CALCIUM, IONIZED Lab Routine Hypercalcemia Expected: 10/12/2023, Expires: 01/11/2024 [facility] Comment on above: Expected: 10/12/2023, Expires: Start: 10-12-2023 End: 01-11-2024 CBC panel - Blood by Automated count COMPLETE BLOOD COUNT Lab Routine Abnormal blood cell count Expected: 10/12/2023, Expires: 01/11/2024 [facility] Work Phone: Comment on above: Expected: 10/12/2023, Expires: Start: 10-12-2023 End: 01-11-2024 Parathyrin.intact [Mass/volume] in Serum or Plasma PTH INTACT Lab Routine Hypercalcemia Expected: 10/12/2023, Expires: 01/11/2024 [facility] Comment on above: Expected: 10/12/2023, Expires: 4 Start: 10-11-2023 End: 10-11-2023 Patient encounter procedure 10/11/2023 3:20 PM EDT Office Visit [facility] [place] [address] [facility] [place] [address] Tomasa Laguerre APRN.[employer]ER[employer]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 [address] [facility] [place], [place] [address] 1month follow up [facility] [place] Comment on above: 1month follow up Start: 09-12-2023 End: 09-12-2023 Patient encounter procedure 09/12/2023 3:30 PM EDT Office Visit General Surgery [address] [place] [address] Nelly Loco MD [address] [place] [address] 1 month follow up, eosinophillic esophagitis ra General Surgery Comment on above: 1 month follow up, eosinophillic esophag itis ra Start: 09-09-2023 End: 12-09-2023 Cobalamin (Vitamin B12) [Mass/volume] in Serum or Plasma [facility] Comment on above: Expected: 09/09/2023, Expires: Start: 09-09-2023 End: 12-09-2023 Comprehensive metabolic 2000 panel - Serum or Plasma [facility] Comment on above: Expected: 09/09/2023, Expires: Start: 09-09-2023 End: 12-09-2023 Magnesium [Mass/volume] in Serum or Plasma [facility] Comment on above: Expected: 09/09/2023, Expires: Start: 09-09-2023 End: 12-09-2023 Thyrotropin [Units/volume] in Serum or Plasma [facility] Work Phone: Comment on above: Expected: 09/09/2023, Expires: Start: 09-09-2023 End: 12-09-2023 Thyroxine (T4) free [Mass/volume] in Serum or Plasma [facility] Comment on above: Expected: 09/09/2023, Expires: Start: 09-09-2023 End: 12-09-2023 Triiodothyronine (T3) [Mass/volume] in Serum or Plasma [facility] Comment on above: Expected: 09/09/2023, Expires: Start: 08-14-2023 BP CONTROLLED (<130/80) BP CONTROLLED (<130/80) [place] Start: 08-04-2023 End: 11-03-2023 25-hydroxyvitamin D3 [Mass/volume] in Serum or Plasma [facility] Work Phone: Comment on above: Expected: 08/04/2023, Expires: Start: 08-04-2023 End: 11-03-2023 Basic metabolic 2000 panel - Serum or Plasma [facility] Work Phone: Comment on above: Expected: 08/04/2023, Expires: Start: 08-04-2023 End: 11-03-2023 Ferritin [Mass/volume] in Serum or Plasma [facility] Work Phone: Comment on above: Expected: 08/04/2023, Expires: Start: 08-04-2023 End: 11-03-2023 Iron and Iron binding capacity panel - Serum or Plasma [facility] Work Phone: Comment on above: Expected: 08/04/2023, Expires: Start: 08-04-2023 End: 11-03-2023 Magnesium [Mass/volume] in Serum or Plasma [facility] Work Phone: Comment on above: Expected: 08/04/2023, Expires: Start: 08-04-2023 End: 11-03-2023 Methylmalonate [Moles/volume] in Serum or Plasma [facility] Work Phone: Comment on above: Expected: 08/04/2023, Expires: 4 Start: 05-16-2023 Behavioral Health Screening Behavioral Health Screening [facility] Start: 04-12-2023 ANNUAL PCP TEAM CHRONIC DISEASE VISIT ANNUAL PCP TEAM CHRONIC DISEASE VISIT [facility] Start: 02-02-2023 Adult depression screening assessment DEPRESSION SCREENING [facility] Start: 01-22-2023 ANNUAL PCP TEAM CHRONIC DISEASE VISIT ANNUAL PCP TEAM CHRONIC DISEASE VISIT [facility] Start: 01-14-2023 Covid-19 Vaccine () Covid-19 Vaccine () [facility] Start: 01-14-2023 Influenza vaccination [facility] Start: 11-25-2022 ANNUAL PCP TEAM CHRONIC DISEASE VISIT ANNUAL PCP TEAM CHRONIC DISEASE VISIT [facility] Start: 11-12-2022 End: 01-12-2023 Hemoglobin A1c in Blood [facility] Work Phone: Comment on above: Expected: 11/12/2022, Expires: 3 Start: 11-06-2022 Adult depression screening assessment DEPRESSION SCREENING [facility] Start: 10-29-2022 End: 12-29-2022 Bacteria identified in Urine by Culture [facility] Work Phone: Comment on above: Expected: 10/29/2022, Expires: 3 Start: 10-29-2022 End: 12-29-2022 Comprehensive metabolic 2000 panel - Serum or Plasma [facility] Work Phone: Comment on above: Expected: 10/29/2022, Expires: 3 Start: 10-29-2022 End: 12-29-2022 Erythrocyte sedimentation rate [facility] Work Phone: Comment on above: Expected: 10/29/2022, Expires: 3 Start: 10-29-2022 End: 12-29-2022 Heterophile Ab [Presence] in Serum by Latex agglutination [facility] Work Phone: Comment on above: Expected: 10/29/2022, Expires: 3 Start: 10-29-2022 End: 12-29-2022 Lipase [Enzymatic activity/volume] in Serum or Plasma [facility] Work Phone: Comment on above: Expected: 10/29/2022, Expires: 3 Start: 10-29-2022 End: 12-29-2022 Thyrotropin [Units/volume] in Serum or Plasma [facility] Work Phone: Comment on above: Expected: 10/29/2022, Expires: 3 Start: 10-29-2022 End: 12-29-2022 Urinalysis complete panel - Urine [facility] Work Phone: Comment on above: Expected: 10/29/2022, Expires: 3 Start: 10-08-2022 ANNUAL PCP TEAM CHRONIC DISEASE VISIT ANNUAL PCP TEAM CHRONIC DISEASE VISIT [facility] Start: 10-08-2022 BP CONTROLLED (<130/80) BP CONTROLLED (<130/80) [place] Start: 09-11-2022 ANNUAL PCP TEAM CHRONIC DISEASE VISIT ANNUAL PCP TEAM CHRONIC DISEASE VISIT [facility] Start: 08-17-2022 ANNUAL PCP TEAM CHRONIC DISEASE VISIT ANNUAL PCP TEAM CHRONIC DISEASE VISIT [facility] Start: 07-21-2022 Adult depression screening assessment DEPRESSION SCREENING [facility] Start: 07-21-2022 BP CONTROLLED (<130/80) BP CONTROLLED (<130/80) [place] Start: 05-16-2022 DEPRESSION ASSESSMENT DEPRESSION ASSESSMENT [facility] Start: 01-25-2022 End: 03-27-2022 CBC panel - Blood by Automated count CBC Lab Routine Leukocytosis, unspecified type Expected: 01/25/2022, Expires: 03/27/2022 [facility] Work Phone: Comment on above: Expected: 01/25/2022, Expires: 2 Start: 01-14-2022 Influenza vaccination [facility] Start: 09-16-2021 End: 11-16-2021 CBC W Auto Differential panel - Blood CBC + DIFF Lab Routine Dental infection Expected: 09/16/2021, Expires: 11/16/2021 [facility] Work Phone: Comment on above: Expected: 09/16/2021, Expires: 2 Start: 09-16-2021 End: 11-16-2021 Thyrotropin [Units/volume] in Serum or Plasma TSH BLD Lab Routine Goiter, nontoxic, multinodular Expected: 09/16/2021, Expires: 11/16/2021 [facility] Work Phone: Comment on above: Expected: 09/16/2021, Expires: 2 Start: 09-11-2021 End: 11-11-2021 CBC W Auto Differential panel - Blood [facility] Work Phone: Comment on above: Expected: 09/11/2021, Expires: 2 Start: 09-11-2021 End: 11-11-2021 Thyrotropin [Units/volume] in Serum or Plasma [facility] Work Phone: Comment on above: Expected: 09/11/2021, Expires: 2 Start: 06-11-2021 ANNUAL PCP TEAM CHRONIC DISEASE VISIT ANNUAL PCP TEAM CHRONIC DISEASE VISIT [facility] Start: 05-16-2021 DEPRESSION ASSESSMENT DEPRESSION ASSESSMENT [facility] Start: 01-14-2021 Influenza vaccination INFLUENZA (#1) [facility] Start: 2020 HPV TESTING HPV TESTING [facility] Start: 2020 Screening for malignant neoplasm of cervix HPV Testing [facility] Start: 02-23-2017 End: 02-23-2017 Radex hand minimum 3 views X-Ray, Hand [facility] Work Phone: Start: 02-23-2017 End: 02-23-2017 Appointment Appointment [facility] Work Phone: Start: 01-27-2017 End: 01-27-2017 Radex spine lumbosacral minimum 4 views X-Ray, Spine, Lumbosacral 4 views [facility] Work Phone: Start: 01-27-2017 End: 01-27-2017 Appointment Appointment [facility] Work Phone: Start: 01-27-2017 End: 01-27-2017 X-ray exam of lower spine X-Ray, Spine, Lumbosacral 4 views [facility] Work Phone: Start: 2009 Hepatitis B Vaccine (1 of 3 - 19+ 3-dose series) Hepatitis B Vaccine (1 of 3 - 19+ 3-dose series) [facility] Start: 2008 BP CONTROLLED (<130/80) BP CONTROLLED (<130/80) [place] Start: 2008 Depression Screening Depression Screening [facility] Start: 2008 HEPATITIS C SCREENING HEPATITIS C SCREENING [facility] Start: 2008 Hepatitis C screening Hepatitis C Screening [facility] Start: 2008 SPIROMETRY SPIROMETRY [facility] Start: 1996 PNEUMOCOCCAL (1 - PCV) PNEUMOCOCCAL (1 - PCV) [facility] Start: 1996 [facility] Start: 08-16-1995 COVID-19 VACCINE (#1) COVID-19 VACCINE (#1) [facility] Start: 08-16-1995 COVID-19 VACCINE (1) COVID-19 VACCINE (1) [facility] Start: 02-14-1991 COVID-19 VACCINE (#1) COVID-19 VACCINE (#1) [facility] Start: 1990 HEPATITIS B (1 of 3 - 3-dose series) HEPATITIS B (1 of 3 - 3-dose series) [facility] Start: 1990 Hepatitis B Vaccine (1 of 3 - 3-dose series) Hepatitis B Vaccine (1 of 3 - 3-dose series) [facility] BACTERIAL VAGINOSIS NAAT BACTERI AL VAGINOSIS NAAT Lab Routine Pelvic pain in female Ordered: 11/14/2023 [facility] Comment on above: Ordered: 11/14/2023 DELICIA/TRICHOMONAS NAAT DELICIA /TRICHOMONAS NAAT Lab Routine Pelvic pain in female Ordered: 11/14/2023 [facility] Work Phone: Comment on above: Ordered: 11/14/2023 CBC W Auto Different ial panel - Blood [facility] Clostridioides diffi cile toxin genes [Presence] in Stool by ROSELINE with probe detection C. DIFFICILE PCR Lab Routine Diarrhea, unspecified type Ordered: 11/25/2023 [facility] Comment on above: Ordered: 11/25/2023 Comprehensive metabo lic 2000 panel - Serum or Plasma [facility] ECG COMPLETE ECG COMPLETE ECG Routine Palpitations 09/09/2023 2:48 PM EDT [facility] ECG COMPLETE ECG COMPLETE ECG Routine Palpitations 11/25/2023 7:58 AM EDT [facility] End: 05-14-2025 Echocardiography ECHO Cardiology Routine Palpitations BLAISE (obstructive sleep apnea) Primary hypertension Mixed hyperlipidemia 1 Occurrences starting 05/14/2024 until 05/14/2025 [facility] Work Phone: Comment on above: 1 Occurrences starting 05/14/2024 until 05/14/2025 Endometrial bx w/wo endocervix bx w/o dilat spx ENDOMETRIAL BIOPSY Procedures Routine Abnormal uterine bleeding Ordered: 03/09/2024 [facility] Comment on above: Ordered: 03/09/2024 ENTERIC BACTERIAL PA ARTURO BY PCR ENTERIC BACTERIAL PANEL BY PCR Lab Routine Diarrhea, unspecified type Ordered: 11/25/2023 [facility] Comment on above: Ordered: 11/25/2023 FECAL LACTOFERRIN/LEUKOCYTES FECAL LACTOFERRIN/LEUKOCYTES Lab Routine Diarrhea, unspecified type Ordered: 11/25/2023 [facility] Comment on above: Ordered: 11/25/2023 End: 12-12-2023 Gastric emptying imaging study NM GASTRIC EMPTYING SOLID Radiology Routine Nausea Delayed gastric emptying 1 Occurrences starting 11/12/2022 until 12/12/2023 [facility] Work Phone: Comment on above: 1 Occurrences starting 11/12/2022 until 12/12/2023 Helicobacter pylori Ag [Presence] in Stool by Immunoassay HELICOBACTER PYLORI ANTIGEN BY EIA, STOOL Microbiology Routine Diarrhea, unspecified type Ordered: 05/15/2024 [facility] Comment on above: Ordered: 05/15/2024 End: 11-12-2023 HOME SLEEP APNEA TEST (HSAT) HOME SLEEP APNEA TEST (HSAT) Procedures Routine Fatigue, unspecified type 1 Occurrences starting 11/12/2022 until 11/12/2023 [facility] Work Phone: Comment on above: 1 Occurrences starting 11/12/2022 until 11/12/2023 End: 07-06-2025 HOME SLEEP APNEA TEST (HSAT) HOME SLEEP APNEA TEST (HSAT) Procedures Routine BLAISE (obstructive sleep apnea) Weight loss 1 Occurrences starting 07/06/2024 until 07/06/2025 [facility] Work Phone: Comment on above: 1 Occurrences starting 07/06/2024 until 07/06/2025 Insertion intrauteri ne device iud INSERT INTRAUTERINE DEVICE Procedures Routine Menorrhagia with regular cycle General counseling and advice for contraceptive management Ordered: 02/24/2024 [facility] Work Phone: Comment on above: Ordered: 02/24/2024 Insertion intrauteri ne device iud INSERT INTRAUTERINE DEVICE Procedures Routine Encounter for IUD insertion Ordered: 03/09/2024 [facility] Work Phone: Comment on above: Ordered: 03/09/2024 End: 11-16-2024 MG Breast - bilateral Diagnostic LEANN DIAGNOSTIC BILATERAL Radiology Routine Mastalgia Mass overlapping multiple quadrants of right breast 1 Occurrences starting 10/18/2023 until 11/16/2024 [facility] Comment on above: 1 Occurrences starting 10/18/2023 until 11/16/2024 End: 12-09-2024 MG Breast - bilateral Diagnostic LEANN DIAGNOSTIC BILATERAL Radiology Routine Abnormal mammogram 1 Occurrences starting 11/10/2023 until 12/09/2024 [facility] Work Phone: Comment on above: 1 Occurrences starting 11/10/2023 until 12/09/2024 End: 04-20-2025 MG Breast - bilateral Diagnostic LEANN DIAGNOSTIC BILATERAL Radiology Routine Abnormal mammogram 1 Occurrences starting 03/21/2024 until 04/20/2025 [facility] Work Phone: Comment on above: 1 Occurrences starting 03/21/2024 until 04/20/2025 End: 06-13-2025 MG Breast - bilateral Diagnostic LEANN DIAGNOSTIC BILATERAL Radiology Routine Abnormal mammogram 1 Occurrences starting 05/14/2024 until 06/13/2025 [facility] Work Phone: Comment on above: 1 Occurrences starting 05/14/2024 until 06/13/2025 End: 04-05-2025 MR Brain WO and W contrast IV MRI BRAIN WO/W IVCON Radiology Routine Worsening headaches Visual changes Confusion 1 Occurrences starting 03/06/2024 until 04/05/2025 [facility] Work Phone: Comment on above: 1 Occurrences starting 03/06/2024 until 04/05/2025 OUTSIDE VENDOR CARDI AC OUTPATIENT EXTENDED RHYTHM RECORDING (WITHOUT TELEMETRY) OUTSIDE VENDOR CARDIAC OUTPATIENT EXTENDED RHYTHM RECORDING (WITHOUT TELEMETRY) Holter Routine Palpitations Ordered: 12/07/2023 [facility] Work Phone: Comment on above: Ordered: 12/07/2023 Ova and parasites identified in Unspecified specimen by Light microscopy OVA + PARA MICROSCOPIC Microbiology Routine Diarrhea, unspecified type Ordered: 11/25/2023 [facility] Comment on above: Ordered: 11/25/2023 PAP TEST PAP TEST Lab Rou juanita Encounter for gynecological examination with abnormal finding Cervical cancer screening Encounter for screening for human papillomavirus (HPV) Ordered: 10/18/2023 [facility] Work Phone: Comment on above: Ordered: 10/18/2023 Patient Education [facility] Work Phone: Patient referral [facility] Work Phone: Radex spine lumbosac ral 2/3 views XR LUMBAR GENERAL 3V AP/LAT/L5-S1 Radiology Routine Chronic right-sided low back pain with right-sided sciatica 11/25/2021 11:23 AM EDT [facility] Work Phone: Removal intrauterine device iud REMOVE INTRAUTERINE DEVICE Procedures Routine Pelvic pain in female Ordered: 03/26/2024 [facility] Work Phone: Comment on above: Ordered: 03/26/2024 SURGICAL PATHOLOGY SURGICAL PATH OLOGY Lab Routine Abnormal uterine bleeding 03/09/2024 11:11 AM EDT [facility] End: 11-16-2024 US Breast - left limited US BREAST LTD LEFT Radiology Routine Mastalgia 1 Occurrences starting 10/18/2023 until 11/16/2024 [facility] Comment on above: 1 Occurrences starting 10/18/2023 until 11/16/2024 End: 12-09-2024 US Breast - left limited US BREAST LTD LEFT Radiology Routine Breast pain 1 Occurrences starting 11/10/2023 until 12/09/2024 [facility] Comment on above: 1 Occurrences starting 11/10/2023 until 12/09/2024 End: 04-20-2025 US Breast - left limited US BREAST LTD LEFT Radiology Routine Abnormal mammogram 1 Occurrences starting 03/21/2024 until 04/20/2025 [facility] Comment on above: 1 Occurrences starting 03/21/2024 until 04/20/2025 End: 06-13-2025 US Breast - left limited US BREAST LTD LEFT Radiology Routine Abnormal mammogram 1 Occurrences starting 05/14/2024 until 06/13/2025 [facility] Comment on above: 1 Occurrences starting 05/14/2024 until 06/13/2025 End: 11-16-2024 US Breast - right limited US BREAST LTD RIGHT Radiology Routine Mass overlapping multiple quadrants of right breast 1 Occurrences starting 10/18/2023 until 11/16/2024 [facility] Comment on above: 1 Occurrences starting 10/18/2023 until 11/16/2024 End: 12-09-2024 US Breast - right limited US BREAST LTD RIGHT Radiology Routine Abnormal mammogram 1 Occurrences starting 11/10/2023 until 12/09/2024 [facility] Comment on above: 1 Occurrences starting 11/10/2023 until 12/09/2024 End: 04-20-2025 US Breast - right limited US BREAST LTD RIGHT Radiology Routine Abnormal mammogram 1 Occurrences starting 03/21/2024 until 04/20/2025 [facility] Comment on above: 1 Occurrences starting 03/21/2024 until 04/20/2025 End: 06-13-2025 US Breast - right limited US BREAST LTD RIGHT Radiology Routine Abnormal mammogram 1 Occurrences starting 05/14/2024 until 06/13/2025 [facility] Comment on above: 1 Occurrences starting 05/14/2024 until 06/13/2025 End: 11-16-2024 US Pelvis transvaginal US FEMALE PELVIS TRANSVAG Radiology Routine Pelvic pain in female 1 Occurrences starting 10/18/2023 until 11/16/2024 [facility] Comment on above: 1 Occurrences starting 10/18/2023 until 11/16/2024 US Pelvis transvaginal US FEMALE PELVIS TRANSVAG Radiology Routine Pelvic pain in female 10/31/2023 8:58 AM EDT [facility] Work Phone: End: 09-16-2022 Us soft tissue head & neck real time imge docm US THYROID/PARATHYROID Radiology Routine Goiter, nontoxic, multinodular 1 Occurrences starting 08/17/2021 until 09/16/2022 [facility] Work Phone: Comment on above: 1 Occurrences starting 08/17/2021 until 09/16/2022 End: 11-19-2024 XR Cervical spine AP and Lateral and oblique XR CERV OTHER 4V AP/LAT/OBL Radiology Routine Cervical radiculopathy Numbness and tingling in both hands 1 Occurrences starting 10/21/2023 until 11/19/2024 [facility] Work Phone: Comment on above: 1 Occurrences starting 10/21/2023 until 11/19/2024 XR Cervical spine AP and Lateral and oblique XR CERV OTHER 4V AP/LAT/OBL Radiology Routine Cervical radiculopathy Numbness and tingling in both hands 10/21/2023 3:51 PM EDT [facility] End: 05-12-2023 XR FOOT GENERAL 3V AP/LAT/OBL BILATERAL XR FOOT GENERAL 3V AP/LAT/OBL BILATERAL Radiology Routine Foot pain, bilateral Plantar fasciitis 1 Occurrences starting 04/12/2022 until 05/12/2023 [facility] Work Phone: Comment on above: 1 Occurrences starting 04/12/2022 until 05/12/2023 XR FOOT GENERAL 3V AP/LAT/OBL BILATERAL XR FOOT GENERAL 3V AP/LAT/OBL BILATERAL Radiology Routine Foot pain, bilateral Plantar fasciitis 04/12/2022 7:51 PM EST [facility] Work Phone: End: 08-04-2024 XR Knee - right 4 Views XR KNEE GENERAL 4V AP BOTH/PA BOTH/LAT/MERC RIGHT Radiology Routine Acute pain of right knee 1 Occurrences starting 07/06/2023 until 08/04/2024 [facility] Work Phone: Comment on above: 1 Occurrences starting 07/06/2023 until 08/04/2024 XR Knee - right 4 Views XR KNEE GENERAL 4V AP BOTH/PA BOTH/LAT/MERC RIGHT Radiology Routine Acute pain of right knee 07/06/2023 3:28 PM EST [facility] Work Phone: [facility] Immunizations Immunization Date Immunization Notes Care Provider Arleen esquivel 04-14-2020 Influenza, injectabl e, Madin Shaneka Canine Kidney, preservative free, quadrivalent Jes Fuentes MD Work Phone: [facility] 04-14-2020 influenza virus vaccine, unspecified formulation Zoraida Roxanai 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[employer] Work Phone: [facility] 04-14-2017 influenza, injectabl e, quadrivalent, preservative free Dr. Jes Fuentes MD Work Phone: [facility] 04-14-2017 influenza, seasonal, injectable Zoraida Najohnnyi 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.[employer] ARCHIT[employer] Work Phone: [facility] 04-14-2017 influenza, seasonal, injectable, preservative free Jes Fuentes MD Work Phone: [facility] 02-16-2016 influenza, injectabl e, quadrivalent, preservative free Dr. Jes Fuentes MD Work Phone: [facility] 02-16-2016 influenza, seasonal, injectable Zoraida Najohnnyi 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.[employer] ARCHIT[employer] Work Phone: [facility] 02-16-2016 influenza, seasonal, injectable, preservative free Jes Fuentes MD Work Phone: [facility] 09-24-2015 tetanus toxoid, redu emily diphtheria toxoid, and acellular pertussis vaccine, adsorbed Zoraida Naguillermoovski 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.[employer] ARCHIT[employer] Work Phone: [facility] 10-09-2014 measles, mumps and rubella virus vaccine Zoraida Najdovski 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.[employer] ARCH[employer] Work Phone: [facility] 08-29-2014 tetanus toxoid, redu emily diphtheria toxoid, and acellular pertussis vaccine, adsorbed Zoraida Najdovski 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.[employer] ARCHIT[employer] Work Phone: [facility] Work Phone: 05-03-2011 influenza virus vaccine, unspecified formulation Zoraida Najdovski 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.[facility] Work Phone: [facility] 06-04-2010 tetanus toxoid, redu emily diphtheria toxoid, and acellular pertussis vaccine, adsorbed Zoraida Rodarte APRN.[facility] Work Phone: [facility] 06-02-2010 tuberculin skin test ; purified protein derivative solution, intradermal Mary Kumar APRN.[facility] Work Phone: [facility] 09-05-2008 diphtheria and tetan us toxoids, adsorbed for pediatric use Zoraida Rodarte APRN.[facility] Work Phone: [facility] 10-12-2002 diphtheria and tetan us toxoids, adsorbed for pediatric use Zoraida Rodarte APRN.[facility] Work Phone: [facility] Work Phone: 01-04-1996 diphtheria, tetanus toxoids and acellular pertussis vaccine Zoraida Rodarte APRN.[facility] Work Phone: [facility] Work Phone: 01-04-1996 measles, mumps and rubella virus vaccine Zoraida Rodarte APRN.[facility] Work Phone: [facility] Work Phone: 01-04-1996 trivalent poliovirus vaccine, live, oral Zoraida Rodarte APRN.[facility] Work Phone: [facility] Work Phone: 01-03-1992 diphtheria, tetanus toxoids and acellular pertussis vaccine Zoraida Rodrate APRN.[facility] Work Phone: [facility] Work Phone: 01-03-1992 haemophilus influenz ae type b vaccine, HbOC conjugate Zoraida Rodarte APRN.[facility] Work Phone: [facility] Work Phone: 01-03-1992 measles, mumps and rubella virus vaccine Zoraida Aster MONSIVAISN.[facility] Work Phone: [facility] Work Phone: 04-05-1991 diphtheria, tetanus toxoids and acellular pertussis vaccine Zoraida Najdovski 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.[facility] Work Phone: [facility] Work Phone: 04-05-1991 haemophilus influenz ae type b vaccine, HbOC conjugate Zoraida Najdovski 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.[facility] Work Phone: [facility] Work Phone: 01-23-1991 diphtheria, tetanus toxoids and acellular pertussis vaccine Zoraida Najdovski 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.[facility] Work Phone: [facility] Work Phone: 01-23-1991 haemophilus influenz ae type b vaccine, HbOC conjugate Zoraida Najdovski 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.[facility] Work Phone: [facility] Work Phone: 01-23-1991 trivalent poliovirus vaccine, live, oral Zoraida Najdovski 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.[facility] Work Phone: [facility] Work Phone: 1990 diphtheria, tetanus toxoids and acellular pertussis vaccine Zoraida Najdovski 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.[facility] Work Phone: [facility] Work Phone: 1990 haemophilus influenz ae type b vaccine, HbOC conjugate Zoraida Najdovski 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.[facility] Work Phone: [facility] Work Phone: 1990 trivalent poliovirus vaccine, live, oral Zoraida Najdovski 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.[facility] Work Phone: [facility] Work Phone: Payers Date Payer Category Payer Unknown [id number] 2023 Self-pay [id number] 2021 [employer] Blue [employer] [id number] 2021 Unknown JAMARI SIMMONS ACCE SS PPO [id number] 2021-Present [phone] [address] [place] [address] PPO [id number] 2021 Unknown [id number] 2021 Private Health Insurance LEI ALFORD OAP [id number] 2021-Present [phone] [address] [place] [address] Open Access [id number] 2021 Private Health Insurance [id number] 1990 Unknown [id number] Private Health Insurance [id number] Unknown SELF PAY INSURANCE [id number] Unknown [employer] [id number] Unknown [id number] Unknown [id number] Unknown [id number] Unknown [id number] Unknown [id number] Unknown [id number] Unknown [id number] Unknown [id number] Unknown [id number] Unknown [id number] Unknown [id number] Social History Date Type Detail Facility Start: 05-19-2021 End: 10-22-2024 Tobacco smoking status NHIS Never smoked tobacco [facility] Start: 07-21-2021 End: 10-18-2024 Alcohol intake Current drinker of alcohol (finding) [facility] Start: 04-28-2015 History SDOH Alcohol Comment 1 nightout every 2 months- 2-3 drinks-None since [facility] Start: 07-08-2020 End: 01-22-2022 Tobacco Comment Pt vapes [facility] Start: 1990 Sex Assigned At Female C [facility] Start: 06-21-2021 End: 04-12-2022 Exposure to SARS-CoV-2 (event) Not sure [facility] Start: 09-30-2021 End: 05-26-2022 Tobacco smoking status NHIS Unknown if ever smoked [facility] Work Phone: Start: 10-16-2019 None [facility] Start: 10-16-2019 Spouse/ Signif icant Other [facility] Start: 05-29-2019 Non-smoker [facility] Start: 05-19-2021 End: 06-01-2022 Tobacco use and exposure Smokeless tobacco non-user [facility] Start: 12-03-2022 End: 06-24-2023 History of Social function [facility] Start: 12-03-2022 End: 06-24-2023 Tobacco use panel [facility] Adult Depression Screening Assessment 2 [facility] Start: 01-25-2019 Gender identity Identifies as female gender (finding) [facility] Start: 01-25-2019 Sexual orientation Heterosexual (irineo palumbo) [facility] Start: 08-06-2024 End: 08-13-2024 Sex Female (finding) [facility] NEGATED: Highlighted row Not [facility] Medical Equipment Procedure Code Equipment Code Equipment Original Text Equipment Identifier Dates Appendectomy, laparoscopic 45mm Standard Reload FDA Start: 04-24-2021 Appendectomy, laparoscopic 45mm Standard Reload FDA Start: 04-24-2021 Appendectomy, laparoscopic 45mm Standard Reload FDA Start: 04-24-2021 Appendectomy, laparoscopic 45mm Standard Reload FDA Start: 04-24-2021 Appendectomy, laparoscopic 45mm Standard Reload FDA Start: 04-24-2021 Appendectomy, laparoscopic 45mm Standard Reload FDA Start: 04-24-2021 Clip Filshie Curve Silastic Titanium Internal Soft Line Upper Jaw Tubal - [id number] Start: 01-13-2016 Comment on above: Description: FILSHIE CLIPS PLACED TO FALLOPIAN TUBES BILATERALLY Goals Date Patient Goal Desired Activity /State Functional Status Date Assessment Result Facility 07-21-2021 Functional status Ambulates;Up ad ambrose [facility] Work Phone: 11-01-2015 Are you deaf, or do you have serious difficulty hearing No 11/01/2015 3:51 PM EDT Marika Mccray APRN.UI ARCHITECT No [facility] Work Phone: 11-01-2015 Are you blind, or do you have serious difficulty seeing, even when wearing glasses No 11/01/2015 3:51 PM EDT Marika Mccray APRN.CNP No [facility] 11-01-2015 Do you have serious difficulty walking or climbing stairs No 11/01/2015 3:51 PM EDT Marika Mccray APRN.MARISELA No [facility] 11-01-2015 Do you have difficul ty dressing or bathing No 11/01/2015 3:51 PM EDT Marika Mccray APRN.MARISELA No [facility] 11-01-2015 Because of a physica l, mental, or emotional condition, do you have difficulty doing errands alone such as visiting a physician's office or shopping No 11/01/2015 3:51 PM EDT Marika Mccray APRN.UI ARCHITECT No [facility] Mental Status Date Assessment Result Facility 10-24-2024 Cognitive function Level Of Cons ciousness Awake;Alert;Appropriate [facility] Work Phone: 10-24-2024 Cognitive function Voice/Name [facility] Work Phone: 08-06-2024 Cognitive function Voice/Name [facility] Work Phone: 05-26-2022 Cognitive function Level Of Cons ciousness Awake;Alert;Appropriate;Fol lows Commands [facility] Work Phone: 09-30-2021 Cognitive function Level Of Cons ciousness Awake;Alert;Appropriate;Fol lows Commands [facility] Work Phone: 07-20-2021 Cognitive function Appropriate [facility] Work Phone: 11-01-2015 Because of a physica l, mental, or emotional condition, do you have serious difficulty concentrating, remembering, or making decisions No 11/01/2015 3:51 PM EDT Marika Mccray APRN.UI ARCHITECT No [facility] Clinical Notes 11-05-2015 to 10-30-2024 Telephone Encounter - [facility] - 10/30/2024 1:27 PM EDTTelephone Encounter - [facility] - 10/30/2024 1:27 PM EDTTelephone Encounter - Ambika Montelongo MA - 10/25/2024 10:23 AM EDT Note Date & Type Note Facility 10-30-2024 Telephone encount er Note Pharmacist Managed Refill Encounter Name: Maria Elena Garay Refill authorization request(s) received and reviewed under effective consult agreement. The patient consented to the pharmacy service and agreed to allow medications to be collaboratively managed by the pharmacist. The patient may decline or cancel the agreement at any time. Upon review, it was confirmed that an active patient-provider relationship exists, and the prescriber is a participating physician under the consult agreement. Last office visit in this department: 10/03/2024 Zoraida Rodarte APRN.CNP Last distance health visit in this department: Visit date not found Next appointment in this department: 12/26/2024 Zoraida Rodarte APRN.CNP Requested Prescriptions Signed Prescriptions Disp Refills atogepant (QULIPTA) 60 mg tablet 90 tablet 3 Sig: Take 1 tablet (60 mg) by mouth once daily. Authorizing Provider: ZORAIDA RODARTE Ordering User: JAROD JONES The medication(s) fall under category 1: No barriers to continued therapy exist. # of refills approved in this encounter: 1 Jarod Jones RPh [facility] 10-30-2024 Miscellaneous Notes Formattin g of this note is different from the original. Pharmacist Managed Refill Encounter Name: Maria Elena Garay Refill authorization request(s) received and reviewed under effective consult agreement. The patient consented to the pharmacy service and agreed to allow medications to be collaboratively managed by the pharmacist. The patient may decline or cancel the agreement at any time. Upon review, it was confirmed that an active patient-provider relationship exists, and the prescriber is a participating physician under the consult agreement. Last office visit in this department: 10/03/2024 Zoraida Rodarte APRN.CNP Last distance health visit in this department: Visit date not found Next appointment in this department: 12/26/2024 Zoraida Rodarte APRN.CNP Requested Prescriptions Signed Prescriptions Disp Refills atogepant (QULIPTA) 60 mg tablet 90 tablet 3 Sig: Take 1 tablet (60 mg) by mouth once daily. Authorizing Provider: ZORAIDA RODARTE Ordering User: JAROD JONES The medication(s) fall under category 1: No barriers to continued therapy exist. # of refills approved in this encounter: 1 Jarod Jones RPh documented in this encounter [facility] 10-25-2024 Telephone encount er Note Prescription Refill Information The patient has been identified by name and date of : Yes Caregiver verified no other encounters exist for this prescription request: Yes Caregiver confirmed with patient/requestor that no other refills are due, in the near future, with this provider at this time: No The last office visit in the department: 05/15/24 Does the patient have a future office visit with this provider/department: No Requested Prescriptions Pending Prescriptions Disp Refills gabapentin (NEURONTIN) 600 mg tablet 270 tablet 3 Sig: Take 1 tablet by mouth three times a day. Ambika Montelongo MA October 25, 2024 10:23 AM [facility] 10-25-2024 Miscellaneous Notes Formattin g of this note is different from the original. Prescription Refill Information The patient has been identified by name and date of : Yes Caregiver verified no other encounters exist for this prescription request: Yes Caregiver confirmed with patient/requestor that no other refills are due, in the near future, with this provider at this time: No The last office visit in the department: 05/15/24 Does the patient have a future office visit with this provider/department: No Requested Prescriptions Pending Prescriptions Disp Refills gabapentin (NEURONTIN) 600 mg tablet 270 tablet 3 Sig: Take 1 tablet by mouth three times a day. Ambika Montelongo MA October 25, 2024 10:23 AM documented in this encounter [facility] 10-24-2024 Consult note [facility] 10-24-2024 Consult note Note Date/Time October 24, 2024 11:48am [facility] Medical Records Department [address] [place] [address] Pre-Anesthesia Evaluation 10/24/24 1148 MR#: [id number] Acct: [id number] Name: MARIA ELENA GARAY Rep #:[id number] : 1990 34 From: Rolly Rm MD PCP: Dr. Jes Fuentes MD Status:REG S DC Y Race: C Location: [place] [address] ASA Classification* ASA Classification ASA Classification: 2 Assessment & Plan Anesthesia* Anesthesia Assessment Anesthesia Assessment: Discussed sedation and/or anesthesia options, risks, benefits, and alternatives with patient/parents/legal guardian/POA. Questions invited. The patient/parents/legal guardian/POA seems to understand and agrees to proceedwith anesthesia plan. Reviewed the physical assessment, medical history, allergy history and patient home medications list prior to surgery/procedure/anesthetic and documented any changes. Performed airway and anesthesia risk assessments. Anesthesia Type Anesthesia Type: MAC Anesthesia Focused Assessment* Airway Assessment Mouth opens: >3 cm Mallampati Score: II Labs Anesthesia Preop lab: CBC WBC 14.2 K/mm3 (4.4-11.0) H 08/13/24 15:15 5 RBC 4.86 M/mm3 (4.2-5.4) 08/13/24 15:15 08/13/24 Hgb 13.1 g/dL (12.0-15.0) 08/13/24 15:15 08/13/24 Hct 40.1 % (37-47) 08/13/24 15:15 08/13/24 Plt Count 472 K/mm3 (150-450) H 08/13/24 15:15 08/13/24 CHEMISTRY Potassium 3.3 mmol/L (3.3-5.1) 08/13/24 15:15 08/13/24 Sodium 137 mmol/L (133-145) 08/13/24 15:15 08/13/24 BUN 10 mg/dL (4-19) 08/13/24 15:15 08/13/24 Creatinine 0.71 mg/dL (0.70-1.20) 08/13/24 15:15 08/13/24 Glucose 124 mg/dL (70-99) H 08/13/24 15:15 08/13/24 TSH 1.40 uIU/mL (0.358-3.74) 07/20/13 18:08 COAG PT 13.2 SECONDS (11.7-14.9) 04/03/18 06:05 HCG, Quant < 1 mIU/mL (1-3) 03/20/24 13:46 03/20/24 Urine Test Negative Negative 05/31/19 08:40 05/31/19 Pre-Assessment Diagnosis/Proposed Procedure Planned Operative Procedure(s): EGD Anesthesia History Anesthesia History - manager training and development: Anesthesia History - manager training and development Hx Hospitalization No 10/22/24 10:14 Any Problems With Anesthesia No 10/22/24 10:14 Cholinesterase deficiency No 10/22/24 10:14 You/Your Family Experience No 10/22/24 10:14 fever (hyperthermia) with Relationship Recent Exposure to Contagious No 08/14/24 13:23 Disease Does patient have nerve No 10/22/24 10:14 stimulator Patient instructed to have device shut off --Does patient have Pacemaker or ICD? When Was Last Pacemaker Check QUESTION #4 FULL TEXT: You/Your Family Experience fever (hyperthermia) with Anesthesia Last Oral Intake Last Oral intake: Last Oral Intake NPO since Meds taken in AM with sips of water? Meds patient instructed to take am of surgery PONV PONV - manager training and development: PONV - manager training and development Female Yes 10/22/24 10:14 HX of Motion Sickness Yes 10/22/24 10:14 HX of N/V After Surgery Yes 10/22/24 10:14 Non-Smoker Yes 10/22/24 10:14 Duration of Surgery greater No 10/22/24 10:14 than 60 minutes Number of Risk Factors 4 10/22/24 10:14 PONV Score Severe Risk 10/22/24 10:14 Height & Weight Height & Weight: Anesthesia: Height & Weight Height 5 ft 5 in 08/14/24 13:23 Respiratory Assessment Respiratory Assessment - manager training and development: Respiratory Tract Infection Hx - manager training and development Hx Respiratory Tract Infection No 10/22/24 10:14 STOP Sleep Apnea STOP Sleep Apnea - manager training and development: STOP Sleep Apnea - manager training and development Hx Hypertension No 10/22/24 10:14 Hx Sleep Apnea Yes 10/22/24 10:14 CPAP No 10/22/24 10:14 BIPAP No 10/22/24 10:14 Do you snore loudly (louder than talking or can be heard Do you often feel tired/ fatigued/ sleepy during daytime? Has anyone observed you stop breathing during sleep? STOP Results Positive 10/22/24 10:14 QUESTION #5 FULL TEXT : Do you snore loudly (louder than talking or can be heard through closed doors)? 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 Specify any problems Hx of Preganancy in last 3 No 10/22/24 10:14 Months Nurse Filling Out Transfusion JZOLLINGE 10/22/24 10:14 & Questions: Date: 10/22/24 10/22/24 10:14 Time: 10:15 10/22/24 10:14 Patient unable to answer at this time (ie. 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: /Reproductive Hx- manager training and development Hx Now No 10/22/24 10:14 Gestational Age (in weeks): EDC: Hx Hx Para Hx Section SAB No 10/22/24 10:14 [facility] Medical History Diabetes Wears glasses Anemia Back pain Injury of head and neck Difficulty swallowing Gastric reflux Non-smoker Sleep apnea History of echocardiogram History of stress test Hypertension Cardiology follow-up encounter History of irregular heartbeat Anxiety Arthritis Asthma Tonsillectomy planned Migraines Home Medications ?Medication ?Instructions ?Recorded ?Last Taken ?Type gabapentin 100 mg capsule 400 mg PO TID MIGRAINS 10/0407/20/21 History albuterol sulfate 90 mcg/actuation 1 - 2 puff inhalati on Q6H PRN PRN 03/22/18 07/20/21 History aerosol inhaler (ProAir HFA) Asthma venlafaxine 75 mg tablet 150 mg PO DAILY 04/30/1912/04 History cholecalciferol (vitamin D3) 125 125 mcg PO DAILY 03/1607/20/21 History mcg (5,000 unit) tablet melatonin 10 mg tablet 10 mg PO QHS PRN sleep 03/3107/19/21 History ubrogepant 50 mg tablet (Ubrelvy) 50 mg PO BID PRN russell gladis headache 07/20/21 Unknown History atogepant 60 mg tablet 60 mg PO DAILY 12/14/23 Unkn own History chlorzoxazone 500 mg tablet 500 mg PO TID 12/14/23 Unk nown History pantoprazole 40 mg tablet,delayed 40 mg PO BID 4 Unknown History release propranolol 80 mg capsule,24 80 mg PO DAILY 12/14/23 0 08/04/24 History hr,extended release rimegepant 75 mg disintegrating 75 mg PO ONCE PRN migr venkat headache 12/14/23 Unknown History tablet (Nurtec ODT) tramadol 50 mg tablet 50 mg PO TID PRN pain Unknown History diphenhydramine HCl 25 mg capsule 50 mg PO QHS 5 Unknown History (Aler-Cap) ergocalciferol (vitamin D2) 1,250 1,250 mcg PO QWEEK 0 08/02/24 Unknown History mcg (50,000 unit) capsule metformin 500 mg tablet,extended 1,000 mg PO BID 08/0208/04/24 History release 24 hr ondansetron 4 mg disintegrating 8 mg PO Q8H PRN PRN Na usea 08/02/24 Unknown History tablet topiramate 25 mg tablet 50 mg PO BID 08/02/24 Unknow n History onabotulinumtoxinA 200 unit 100 unit subcut .Q 3 MONTH S 10/22/24 Unknown History solution for injection (Botox) Allergy/AdvReac Type Severity Reaction Status Date / Time metoclopramide (From Reglan) AdvReac severe Verified 10/22/24 09:48 anxious prochlorperazine (From AdvReac severe Verified 10/22/24 09:48 Compazine) anxious Family History Mother Thyroid cancer Skin cancer Hypertension Surgical History Hx of colonoscopy History of esophagogastroduodenoscopy (EGD) Hx of tubal ligation Hx of tonsillectomy History of appendectomy S/P cholecystectomy S/P left knee arthroscopy tubes clamped Social History household members: spouse Smoking Status: Never smoker alcohol intake: never substance use type: does not use Review of Systems (Anesthesia) ROS Narrative System reviewed and no additional complaints, except as documented. 10/24/24 1148 <Electronically signed by Rolly Rm MD > Date _ Rolly Rm MD Cosigner Signature: Date CC: ~ Signed [facility] Work Phone: 1(927) 528-784006-11-2025 Consult note [facility] Medical Records Department [address] [place] [id number] Anesthesia Postop Eval I 10/24/24 1329 MR#: [id number] Acct: [id number] Name: MARIA ELENA GARAY Rep #:[id number] : 1990 34 From: Deonte Louis PCP: Dr. Jes Fuentes MD Status:REG S DC Y Race: C Location: [place] [address] Anesthesia: Postop Eval I Current Vital Signs Temperature: 97.8 F Pulse Rate: 70 Blood Pressure: 117/68 Respiratory Rate: 16 Pulse Ox: 97 Oxygen Delivery Method: Room Air Assessment Airway patent: Yes Spontaneous unlabored respirations: Yes Mental status: Awake and Calm nausea: No Vomiting: No Anesthesia Complication: No Fluid Hydration Crystalloid volume administer (ml): 400 Total IV fluid infused: 400 Progress Note Anesthesia document: Postop Eval 1 completed: Yes 10/24/24 1330 > Date _ Deonte Whalen Signature: Date CC: ~ Signed [facility]06-11-2025 Procedure note [facility] Medical Records Department [address] [place] [address] EGD Report MR#: [id number] Acct: [id number] Name: MARIA ELENA GARAY Rep #:[id number] : 1990 34 From: Salbador Fofana DO PCP: Dr. Jes Fuentes MD Status:REG S DC Patient Name: Maria Elena Garay Procedure Date: 10/24/2024 12:55 PM Date of : 1990 Age: 34 Procedure: Upper GI endoscopy Indications: Epigastric abdominal pain, Functional Dyspepsia, Dysphagia Providers: Salbador Fofana DO Referring MD: Jes Fuentes Medicines: Monitored Anesthesia Care Patient Profile: This is a 34 year old female. Refer to note in patient chart for documentation of history and physical. Patient has symptoms of chronic abdominal cramping, acute epigastric abdominal pain, dysphagia with both liquids and solids, chronic dyspepsia and chronic nausea. Complications: No immediate complications. Procedure: Pre-Anesthesia Assessment: - Prior to the procedure, a History and Physical was performed, and patient medications and allergies were reviewed. The patient is competent. The risks and benefits of the procedure and the sedation options and risks were discussed with the patient. All questions were answered and informed consent was obtained. Patient identification and proposed procedure were verified by the physician in the pre-procedure area. Mental Status Examination: alert and oriented. Airway Examination: normal oropharyngeal airway and neck mobility. Respiratory Examination: clear to auscultation. CV Examination: normal. Prophylactic Antibiotics: The patient does not require prophylactic antibiotics. Prior Anticoagulants: The patient has taken no anticoagulant or antiplatelet agents. ASA Grade Assessment: II - A patient with mild systemic disease. After reviewing the risks and benefits, the patient was deemed in satisfactory condition to undergo the procedure. The anesthesia plan was to use monitored anesthesia care (MAC). Immediately prior to administration of medications, the patient was re-assessed for adequacy to receive sedatives. The heart rate, respiratory rate, oxygen saturations, blood pressure, adequacy of pulmonary ventilation, and response to care were monitored throughout the procedure. The physical status of the patient was re-assessed after the procedure. After obtaining informed consent, the endoscope was passed under direct vision. Throughout the procedure, the patient's blood pressure, pulse, and oxygen saturations were monitored continuously. The Endoscope was introduced through the mouth, and advanced to the fourth part of the duodenum. Small bowel enteroscopy was deemed necessary. The upper GI endoscopy was accomplished without difficulty. The patient tolerated the procedure well. Scope In: 1:08:01 PM Scope Out: 1:11:51 PM Total Procedure Duration Time 0 hours 3 minutes 50 seconds Findings: Mucosal changes including ringed esophagus, feline appearance, longitudinal furrows, small-caliber esophagus and white plaques were found in the entire esophagus. Esophageal findings were graded using the Eosinophilic Esophagitis Endoscopic Reference Score (EoE-EREFS) as: Edema Grade 1 Present (decreased clarity or absence of vascular markings), Rings Grade 1 Mild (subtle circumferential ridges seen on esophageal distension), Exudates Grade 1 Mild (scattered white lesions involving less than 10 percent of the esophageal surface area) and Furrows Grade 1 Mild (vertical lines without visible depth). Biopsies were taken with a cold forceps for histology. Verification of patient identification for the specimen was done. Estimated blood loss was minimal. Patchy mildly erythematous mucosa without bleeding was found in the stomach. [Extent] [Severity] erythematous mucosa [Bleeding] was found [Site]. Biopsies were taken with a cold forceps for histology. Verification of patient identification for the specimen was done. Estimated blood loss was minimal. Biopsies were taken with a cold forceps for Helicobacter pylori testing. Verification of patient identification for the specimen was done. Estimated blood loss was minimal. Patchy mildly erythematous mucosa without active bleeding and with no stigmata of bleeding was found in the duodenal bulb. Biopsies were taken with a cold forceps for histology. Verification of patient identification for the specimen was done. Estimated blood loss was minimal. Suspect gastroparesis due to absence of peristalsis, patient symptoms and retained gastric contents. Impression: - Esophageal mucosal changes secondary to eosinophilic esophagitis. Biopsied. - Erythematous mucosa in the stomach. - Erythematous mucosa in the [Location]. Biopsied. - Erythematous duodenopathy. Biopsied. Recommendation: - Discharge patient to home. - Patient has a contact number available for emergencies. The signs and symptoms of potential delayed complications were discussed with the patient. Return to normal activities tomorrow. Written discharge instructions were provided to the patient. - Resume previous diet. - Continue present medications. - Await pathology results. Procedure Code(s): --- Professional --- 56043, Small intestinal endoscopy, enteroscopy beyond second portion of duodenum, not including ileum; with biopsy, single or multiple CPT copyright 2021 [employer]. All rights reserved. The codes documented in this report are preliminary and upon library information technician review may be revised to meet current compliance requirements. Salbador Fofana DO 10/24/2024 1:26:56 PM This report has been signed electronically. Number of Addenda: 0 Note Initiated On: 10/24/2024 12:55 PM 10/24/24 1327 Date _ Salbador Fofana DO Cosigner Signature: Date (if indicated) CC: Dr. Jes Fuentes MD; Salbador Fofana DO ~ Date Dictated: 10/24/24 1255 Date Transcribed: Drying Tumbler Operator: RF Signed [facility]06-11-2025 Procedure note [facility] Medical Records Department [address] [facility] [place] [address] Operative Report - CC Letter MR#: [id number] Acct: [id number] Name: MARIA ELENA GARAY Rep #:[id number] : 1990 34 From: Salbador Fofana DO PCP: Dr. Jes Fuentes MD Status:REG S DC 10/24/2024 Jes Fuentes Re : Upper GI endoscopy procedure for Maria Elena Garay Franciscar Gina This procedure was performed on Thursday, October 24, 2024. My impressions and recommendations are as follows: Impressions : - Esophageal mucosal changes secondary to eosinophilic esophagitis. Biopsied. - Erythematous mucosa in the stomach. - Erythematous mucosa in the [Location]. Biopsied. - Erythematous duodenopathy. Biopsied. Recommendations : - Discharge patient to home. - Patient has a contact number available for emergencies. The signs and symptoms of potential delayed complications were discussed with the patient. Return to normal activities tomorrow. Written discharge instructions were provided to the patient. - Resume previous diet. - Continue present medications. - Await pathology results. My findings are described in the full procedure note, which is enclosed. If I can be of further assistance, please feel free to contact me at . Sincerely, Salbador Fofana DO 10/24/2024 1:26:56 PM This report has been signed electronically. 10/24/24 1327 Date _ Salbador Pedrazaignedith Signature: Date (if indicated) CC: Dr. Jes Fuentes MD; Salbador Fofana DO ~ Date Dictated: 10/24/24 1255 Date Transcribed: Drying Tumbler Operator: RF Signed [facility]06-11-2025 History and physical note [facility] Medical Records Department [address] [place] [address] History & Physical Exam 10/24/24 1229 MR#: [id number] Acct: [id number] Name: MARIA ELENA GARAY Rep #:[id number] : 1990 34 From: Salbador Fofana DO PCP: Dr. Jes Fuentes MD Status:REG S DC Location: [place] [address] HPI - General General Date of Admission: 10/24/24 Date of Service: 10/24/24 Chief Complaint: GERD and Abdominal pain HPI Narrative MARIA ELENA GARAY, is a 34 F who presents for the evaluation of bloating and GERD. BGI established 1.21.25 with diarrhea x2 months. PCP ordered stool testing which was unremarkable besides a slight elevation in the calprotectin. She is s/p cholecystectomy. No hx of colonoscopy. Shehad an EGD in Jun 2023 without possible EOE. *Start colestipol 1 gram daily Colonoscopy 325; - Congested mucosa in the entire examined colon. Biopsied. - Diverticulosis in the recto-sigmoid colon and in the sigmoid colon. - Congested mucosa in the terminal ileum. Biopsied. *biopsy consistent with reactive lymphoid follicles which may be a pre curser toIBD OV 4.2.25; Pt now struggling with epigastric pain. She describes it as stabbing.Worse with oral intake. SHe has had issues dania this before and underwent EGD forit. She continues to have diarrhea but this is not her main concern. She did nottake the colestipol yet. [facility] Medical History Diabetes Wears glasses Anemia Back pain Injury of head and neck Difficulty swallowing Gastric reflux Non-smoker Sleep apnea History of echocardiogram History of stress test Hypertension Cardiology follow-up encounter History of irregular heartbeat Anxiety Arthritis Asthma Tonsillectomy planned Migraines Home Medications ?Medication ?Instructions ?Recorded ?Last Taken ?Type gabapentin 100 mg capsule 400 mg PO TID MIGRAINS 10/0410/23/24 History albuterol sulfate 90 mcg/actuation 1 - 2 puff inhalati on Q6H PRN PRN 03/22/18 07/20/21 History aerosol inhaler (ProAir HFA) Asthma venlafaxine 75 mg tablet 150 mg PO DAILY 04/30/1903/09 History cholecalciferol (vitamin D3) 125 125 mcg PO DAILY 03/1610/23/24 History mcg (5,000 unit) tablet melatonin 10 mg tablet 10 mg PO QHS PRN sleep 03/3107/19/21 History ubrogepant 50 mg tablet (Ubrelvy) 50 mg PO BID PRN russell gladis headache 07/20/21 Unknown History atogepant 60 mg tablet 60 mg PO DAILY 12/14/23/ History chlorzoxazone 500 mg tablet 500 mg PO TID 12/14/2303/09 History pantoprazole 40 mg tablet,delayed 40 mg PO BID 4 10/23/24 History release propranolol 80 mg capsule,24 80 mg PO DAILY 12/14/23 0 10/23/24 History hr,extended release rimegepant 75 mg disintegrating 75 mg PO ONCE PRN migr venkat headache 12/14/23 Unknown History tablet (Nurtec ODT) tramadol 50 mg tablet 50 mg PO TID PRN pain Unknown History diphenhydramine HCl 25 mg capsule 50 mg PO QHS 5 10/23/24 History (Aler-Cap) ergocalciferol (vitamin D2) 1,250 1,250 mcg PO QWEEK 0 08/02/24 Unknown History mcg (50,000 unit) capsule metformin 500 mg tablet,extended 1,000 mg PO BID 08/0210/23/24 History release 24 hr ondansetron 4 mg disintegrating 8 mg PO Q8H PRN PRN Na usea 08/02/24 10/23/24 History tablet topiramate 25 mg tablet 50 mg PO BID 08/02/24 History onabotulinumtoxinA 200 unit 100 unit subcut .Q 3 MONTH S 10/22/24 Unknown History solution for injection (Botox) Allergy/AdvReac Type Severity Reaction Status Date / Time Environmental Allergies: Allergy Mild sneezing, Verified 10/24/24 12:12 Uncoded (seasonal) metoclopramide (From Reglan) AdvReac severe Verified 10/24/24 12:12 anxious prochlorperazine (From AdvReac severe Verified 10/24/24 12:12 Compazine) anxious Family History Mother Thyroid cancer Skin cancer Hypertension Surgical History Hx of colonoscopy History of esophagogastroduodenoscopy (EGD) Hx of tubal ligation Hx of tonsillectomy History of appendectomy S/P cholecystectomy S/P left knee arthroscopy tubes clamped Social History household members: spouse Smoking Status: Never smoker alcohol intake: never substance use type: does not use ROS Constitutional Constitutional: Denies fatigue, fever(s), poor appetite, weight gain or weight loss Gastrointestinal Gastrointestinal: Denies belching, bloating, change in bowel habits, change in stool character, chewing difficulty, coffee ground emesis, constipation, cramping, diarrhea, dyspepsia, dysphagia, earlysatiety, excessive flatus, fecalincontinence, heartburn, hematemesis, hematochezia, hemorrhoids, loose stools, melena, nausea, odynophagia, rectal bleeding, tenesmus, vomiting or weight changes Vital Signs Vital Signs Vital Signs: 10/24/24 12:15 10/24/24 12:15 Temperature 98.0 F Temperature Source Temporal Pulse Rate 73 Respiratory Rate 14 Respiratory Pattern Normal Blood Pressure 121/56 H Blood Pressure Mean 77 Blood Pressure Source Monitor Blood Pressure Position Semi-Fowlers Blood Pressure Location Left Arm Pulse Ox 99 Oxygen Delivery Method Room Air Weight Weight: 205 lb 0.478 oz Body Mass Index (BMI) 34.1 Physical Exam Const alert, oriented x3, no apparent distress and healthy appearing General Appearance: cooperative GI normal to inspection, nondistended, normoactive bowel sounds, soft to palpation,non-tender and non-distended Percussion: normal to percussion Rectal Exam: deferred Assessment & Plan Assessment/Plan (1) Epigastric abdominal pain: (2) Eosinophilic esophagitis: (3) Abdominal pain: PLAN: Assessment and Plan Assessment and Plan (1) Abdominal pain: Status: Acute (2) Diarrhea: Status: Acute Plan: This is a 34 yo female pt here today for f/u after colonoscopy. Pt colonoscopy revealed lymphoid follicle which could represent a pre curse to IBD. SHe continues to have loose stools. She has not been able to try the colestipol yet.I encouraged she do this. If it does not give her any relief we will consider Budesonide. Pt has been having epigastric pain for the past month. She has had this before about one year. She will undergo EGD to assess her upper GI tract. Iprovided prescription and samples of Voquezna. SHe will f/u after her procedure -EGD -Voquezna -Start colestipol -Consider Budesonide -f/u after procedure Medications: New vonoprazan (Voquezna) 10 mg PO QDAY 30 tabs 2RF 10/24/24 1231 Cosigner Signature (if applicable): CC: Dr. Jes Fuentes MD; Salbador Fofana DO~ Signed [facility]06-11-2025 [facility] Medical [facility] Department [address] [place] [address] History Physical Exam 10/24/24 1229 MR#: [id number] Acct: [id number] Name: MARIA ELENA GARAY Rep #: [id number] : 1990 34 From: Salbador Fofana DO PCP: Dr. Jes Fuentes MD Status:[facility] Location: [place] [address] HPI - General General Date of Admission: 10/24/24 Date of Service: 10/24/24 Chief Complaint: GERD and Abdominal pain HPI Narrative MARIA ELENA GARAY, is a 34 F who presents for the evaluation of bloating and GERD. BGI established 1.21.25 with diarrhea x2 months. PCP ordered stool testing which was unremarkable besides a slight elevation in the calprotectin. She is s/p cholecystectomy. No hx of colonoscopy. She had an EGD in Jun 2023 without possible EOE. *Start colestipol 1 gram daily Colonoscopy 3..25; - Congested mucosa in the entire examined colon. Biopsied. - Diverticulosis in the recto-sigmoid colon and in the sigmoid colon. - Congested mucosa in the terminal ileum. Biopsied. *biopsy consistent with reactive lymphoid follicles which may be a pre curser to IBD OV 4.2.25; Pt now struggling with epigastric pain. She describes it as stabbing. Worse with oral intake. SHe has had issues dania this before and underwent EGD for it. She continues to have diarrhea but this is not her main concern. She did not take the colestipol yet. [facility] Medical History Diabetes Wears glasses Anemia Back pain Injury of head and neck Difficulty swallowing Gastric reflux Non-smoker Sleep apnea History of echocardiogram History of stress test Hypertension Cardiology follow-up encounter History of irregular heartbeat Anxiety Arthritis Asthma Tonsillectomy planned Migraines Home Medications ???Medication ???Instructions ???Recorded ???Last Taken ???Type gabapentin 100 mg capsule 400 mg PO TID MIGRAINS 10/04/16 History albuterol sulfate 90 mcg/actuation 1 - 2 puff inhalation Q6H PRN ND N 03/22/18 07/20/21 History aerosol inhaler (ProAir HFA) Asthma venlafaxine 75 mg tablet 150 mg PO DAILY 04/30/19 10/23/24 History cholecalciferol (vitamin D3) 125 125 mcg PO DAILY 03/31/21 10/23/24 History mcg (5,000 unit) tablet melatonin 10 mg tablet 10 mg PO QHS PRN sleep 03/31/21 History ubrogepant 50 mg tablet (Ubrelvy) 50 mg PO BID PRN migraine headach e 07/20/21 Unknown History atogepant 60 mg tablet 60 mg PO DAILY 12/14/23 10/23/24 H istory chlorzoxazone 500 mg tablet 500 mg PO TID 12/14/23 10/23/24 Hi story pantoprazole 40 mg tablet,delayed 40 mg PO BID 12/14/23 10/23/24 Hi story release propranolol 80 mg capsule,24 80 mg PO DAILY 12/14/23 10/23/24 H istory hr,extended release rimegepant 75 mg disintegrating 75 mg PO ONCE PRN migraine headach e 12/14/23 Unknown History tablet (Nurtec ODT) tramadol 50 mg tablet 50 mg PO TID PRN pain 12/14/23 Unk nown History diphenhydramine HCl 25 mg capsule 50 mg PO QHS 08/02/24 10/23/24 Hi story (Aler-Cap) ergocalciferol (vitamin D2) 1,250 1,250 mcg PO QWEEK 08/02/24 Unkno wn History mcg (50,000 unit) capsule metformin 500 mg tablet,extended 1,000 mg PO BID 08/02/24 10/23/24 History release 24 hr ondansetron 4 mg disintegrating 8 mg PO Q8H PRN PRN Nausea 2 5 10/23/24 History tablet topiramate 25 mg tablet 50 mg PO BID 08/02/24 10/23/24 His tory onabotulinumtoxinA 200 unit 100 unit subcut .Q 3 MONTHS Unknown History solution for injection (Botox) Allergy/AdvReac Type Severity Reaction Status Date / Time Environmental Allergies: Allergy Mild sneezing, Verified 10/24/24 12:12 Uncoded (seasonal) metoclopramide (From Reglan) AdvReac severe Verified 10/24/24 12:12 anxious prochlorperazine (From AdvReac severe Verified 10/24/24 12:12 Compazine) anxious Family History Mother Thyroid cancer Skin cancer Hypertension Surgical History Hx of colonoscopy History of esophagogastroduodenoscopy (EGD) Hx of tubal ligation Hx of tonsillectomy History of appendectomy S/P cholecystectomy S/P left knee arthroscopy tubes clamped Social History household members: spouse Smoking Status: Never smoker alcohol intake: never substance use type: does not use ROS Constitutional Constitutional: Denies fatigue, fever(s), poor appetite, weight gain or weight loss Gastrointestinal Gastrointestinal: Denies belching, bloating, change in bowel habits, change in stool character, chewing difficulty, coffee ground emesis, constipation, cramping, diarrhea, dyspepsia, dysphagia, early sat (more content not included)...[facility]06-11-2025 Consult note [facility] Medical Records Department [address] [place] [address] Pre-Anesthesia Evaluation 10/24/24 1148 MR#: [id number] Acct: [id number] Name: MARIA ELENA GARAY Rep #:[id number] : 1990 34 From: Rloly Rm MD PCP: Dr. Jes Fuentes MD Status:REG S DC Y Race: C Location: AC14-1 ASA Classification* ASA Classification ASA Classification: 2 Assessment & Plan Anesthesia* Anesthesia Assessment Anesthesia Assessment: Discussed sedation and/or anesthesia options, risks, benefits, and alternatives with patient/parents/legal guardian/POA. Questions invited. The patient/parents/legal guardian/POA seems to understand and agrees to proceedwith anesthesia plan. Reviewed the physical assessment, medical history, allergy history and patient home medications list prior to surgery/procedure/anesthetic and documented any changes. Performed airway and anesthesia risk assessments. Anesthesia Type Anesthesia Type: MAC Anesthesia Focused Assessment* Airway Assessment Mouth opens: >3 cm Mallampati Score: II Labs Anesthesia Preop lab: CBC WBC 14.2 K/mm3 (4.4-11.0) H 08/13/24 15:15 5 RBC 4.86 M/mm3 (4.2-5.4) 08/13/24 15:15 08/13/24 Hgb 13.1 g/dL (12.0-15.0) 08/13/24 15:15 08/13/24 Hct 40.1 % (37-47) 08/13/24 15:15 08/13/24 Plt Count 472 K/mm3 (150-450) H 08/13/24 15:15 08/13/24 CHEMISTRY Potassium 3.3 mmol/L (3.3-5.1) 08/13/24 15:15 08/13/24 Sodium 137 mmol/L (133-145) 08/13/24 15:15 08/13/24 BUN 10 mg/dL (4-19) 08/13/24 15:15 08/13/24 Creatinine 0.71 mg/dL (0.70-1.20) 08/13/24 15:15 08/13/24 Glucose 124 mg/dL (70-99) H 08/13/24 15:15 08/13/24 TSH 1.40 uIU/mL (0.358-3.74) 07/20/13 18:08 COAG PT 13.2 SECONDS (11.7-14.9) 04/03/18 06:05 HCG, Quant < 1 mIU/mL (1-3) 03/20/24 13:46 03/20/24 Urine Test Negative Negative 05/31/19 08:40 05/31/19 Pre-Assessment Diagnosis/Proposed Procedure Planned Operative Procedure(s): EGD Anesthesia History Anesthesia History - manager training and development: Anesthesia History - manager training and development Hx Hospitalization No 10/22/24 10:14 Any Problems With Anesthesia No 10/22/24 10:14 Cholinesterase deficiency No 10/22/24 10:14 You/Your Family Experience No 10/22/24 10:14 fever (hyperthermia) with Relationship Recent Exposure to Contagious No 08/14/24 13:23 Disease Does patient have nerve No 10/22/24 10:14 stimulator Patient instructed to have device shut off --Does patient have Pacemaker or ICD? When Was Last Pacemaker Check QUESTION #4 FULL TEXT: You/Your Family Experience fever (hyperthermia) with Anesthesia Last Oral Intake Last Oral intake: Last Oral Intake NPO since Meds taken in AM with sips of water? Meds patient instructed to take am of surgery PONV PONV - manager training and development: PONV - manager training and development Female Yes 10/22/24 10:14 HX of Motion Sickness Yes 10/22/24 10:14 HX of N/V After Surgery Yes 10/22/24 10:14 Non-Smoker Yes 10/22/24 10:14 Duration of Surgery greater No 10/22/24 10:14 than 60 minutes Number of Risk Factors 4 10/22/24 10:14 PONV Score Severe Risk 10/22/24 10:14 Height & Weight Height & Weight: Anesthesia: Height & Weight Height 5 ft 5 in 08/14/24 13:23 Respiratory Assessment Respiratory Assessment - manager training and development: Respiratory Tract Infection Hx - manager training and development Hx Respiratory Tract Infection No 10/22/24 10:14 STOP Sleep Apnea STOP Sleep Apnea - manager training and development: STOP Sleep Apnea - manager training and development Hx Hypertension No 10/22/24 10:14 Hx Sleep Apnea Yes 10/22/24 10:14 CPAP No 10/22/24 10:14 BIPAP No 10/22/24 10:14 Do you snore loudly (louder than talking or can be heard Do you often feel tired/ fatigued/ sleepy during daytime? Has anyone observed you stop breathing during sleep? STOP Results Positive 10/22/24 10:14 QUESTION #5 FULL TEXT : Do you snore loudly (louder than talking or can be heard through closeddoors)? 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 Specify any problems Hx of Preganancy in last 3 No 10/22/24 10:14 Months Nurse Filling Out Transfusion JZOLLINGE 10/22/24 10:14 & Questions: Date: 10/22/24 10/22/24 10:14 Time: 10:15 10/22/24 10:14 Patient unable to answer at this time (ie. 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: /Reproductive Hx- manager training and development Hx Now No 10/22/24 10:14 Gestational Age (in weeks): EDC: Hx Hx Para Hx Section SAB No 10/22/24 10:14 PFSH Medical History Diabetes Wears glasses Anemia Back pain Injury of head and neck Difficulty swallowing Gastric reflux Non-smoker Sleep apnea History of echocardiogram History of stress test Hypertension Cardiology follow-up encounter History of irregular heartbeat Anxiety Arthritis Asthma Tonsillectomy planned Migraines Home Medications ?Medication ?Instructions ?Recorded ?Last Taken ?Type gabapentin 100 mg capsule 400 mg PO TID MIGRAINS 10/0407/20/21 History albuterol sulfate 90 mcg/actuation 1 - 2 puff inhalati on Q6H PRN PRN 03/22/18 07/20/21 History aerosol inhaler (ProAir HFA) Asthma venlafaxine 75 mg tablet 150 mg PO DAILY 04/30/1912/04 History cholecalciferol (vitamin D3) 125 125 mcg PO DAILY 03/1607/20/21 History mcg (5,000 unit) tablet melatonin 10 mg tablet 10 mg PO QHS PRN sleep 03/3107/19/21 History ubrogepant 50 mg tablet (Ubrelvy) 50 mg PO BID PRN russell gladis headache 07/20/21 Unknown History atogepant 60 mg tablet 60 mg PO DAILY 12/14/23 Unkn own History chlorzoxazone 500 mg tablet 500 mg PO TID 12/14/23 Unk nown History pantoprazole 40 mg tablet,delayed 40 mg PO BID 4 Unknown History release propranolol 80 mg capsule,24 80 mg PO DAILY 12/14/23 0 08/04/24 History hr,extended release rimegepant 75 mg disintegrating 75 mg PO ONCE PRN migr venkat headache 12/14/23 Unknown History tablet (Nurtec ODT) tramadol 50 mg tablet 50 mg PO TID PRN pain Unknown History diphenhydramine HCl 25 mg capsule 50 mg PO QHS 5 Unknown History (Aler-Cap) ergocalciferol (vitamin D2) 1,250 1,250 mcg PO QWEEK 0 08/02/24 Unknown History mcg (50,000 unit) capsule metformin 500 mg tablet,extended 1,000 mg PO BID 08/0208/04/24 History release 24 hr ondansetron 4 mg disintegrating 8 mg PO Q8H PRN PRN Na usea 08/02/24 Unknown History tablet topiramate 25 mg tablet 50 mg PO BID 08/02/24 Unknow n History onabotulinumtoxinA 200 unit 100 unit subcut .Q 3 MONTH S 10/22/24 Unknown History solution for injection (Botox) Allergy/AdvReac Type Severity Reaction Status Date / Time metoclopramide (From Reglan) AdvReac severe Verified 10/22/24 09:48 anxious prochlorperazine (From AdvReac severe Verified 10/22/24 09:48 Compazine) anxious Family History Mother Thyroid cancer Skin cancer Hypertension Surgical History Hx of colonoscopy History of esophagogastroduodenoscopy (EGD) Hx of tubal ligation Hx of tonsillectomy History of appendectomy S/P cholecystectomy S/P left knee arthroscopy tubes clamped Social History household members: spouse Smoking Status: Never smoker alcohol intake: never substance use type: does not use Review of Systems (Anesthesia) ROS Narrative System reviewed and no additional complaints, except as documented. 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 Maria Elena is a 34 year old who presents for an annual gynecologic exam without complaints. Still get period: Yes LMP: 10/11/2024 Menses: cycles every 28-30 days and 5-6 days of moderate flow. Period symptoms: Breast tenderness, Cramps, and Mood change Contraception: tubal sterilization HPV vaccine: No Last Pap: 10/18/2023 normal 02/2024 EMB -late secretory endometrium HPV: 10/18/2023 negative History of abnormal pap: Yes 2012 ASCUS HPV negative Last mammogram: 04/2024 bilateral diagnostic imaging ordered for 6 months Abnormal mammogram 2018 diagnostic imaging left breast normal Sexually active: Yes History of STDS: None Patient concerns for STD exposure: No. Time with current partner: 14 years Pain with intercourse: Yes long-term and positional Postcoital bleeding: No Documentation from previous visit of 10/18/2023 was copied and pasted, documentation has been reviewed and edited as necessary for today's visit. OB History Gravida3 Para3 Term2 Preterm1 AB0 Living3 SAB0 IAB0 Ectopic0 Multiple0 Live Births3 Front Of House Manager History LMP: 09/08/2024 (Approximate), Having periods Age at Menarche: Age at First : Age at Menopause: Front Of House Manager History Comments: Sexual Activity: Yes; Male Contraception: Tubal Ligation PAST MEDICAL HISTORY Diagnosis Date Abnormal Pap smear of cervix ASCUS Acute appendicitis 04/2021 Allergic rhinitis, cause unspecified Anxiety 03/17/2010 buspar Arthritis Asthma ([facility]) Concussion 2007 Dysmenorrhea Excessive or frequent menstruation Heavy periods Iron deficiency anemia due to chronic blood loss 11/08/2023 Iron malabsorption ([facility]) 11/08/2023 Menorrhagia with regular cycle 11/08/2023 Mental disorder Migraine, unspecified, with intractable migraine, so stated, without mention of status migrainosus Migraine Ovarian cyst resolved Pain in joint, pelvic region and thigh 07/29/2014 Patellar disorder 09/01/2015 PID (acute pelvic inflammatory disease) 2013 PIH ( induced hypertension) ([facility]) 11/05/2015 Post depression 12/31/2015 Thyroid disease goiter Trauma PAST SURGICAL HISTORY Procedure Laterality Date APPENDECTOMY HX EGD W/[facility] SPEC VARICIES INJ 06/16/2023 Dr Loco ESOPHAGOGASTRODUODENOSCOPY TRANSORAL DIAGNOSTIC 03/21/2013 EGD HERNIA REPAIR HX INSERTION OF IUD 03/09/2024 Mirena KNEE 1 OP 2 VIEWS KNEE ARTHROSCOPY/SURGERY 11/2011 left LAP SURG APPENDECTOMY 04/24/2021 LAPAROSCOPY DIAGNOSTIC 05/31/2019 at [facility]-Dr. Oscar [place] SURG CHOLECYSTECTOMY W/CHOLANGIOGRAPHY 02/14/2013 SALPINGECTOMY Bilateral 05/31/2019 B/L Salpingectomy at [facility]-Dr. Moore TONSILLECTOMY HX 03/2018 [facility]-Dr. James TUBAL LIGATION HX 01/13/2016 filshie clips FAMILY HISTORY Problem Relation Age of Onset Cancer Mother thyroid, skin. - precancerous cervical cells on pap smear Hypertension Mother Thyroid Cancer Mother Migraines Mother Skin Cancer Mother Obesity Mother COPD Father Breast Cancer Maternal Grandmother Hypertension Maternal Grandmother Asthma Maternal Grandmother Anxiety disorder Maternal Grandmother Bipolar disorder Maternal Grandmother Obesity Maternal Grandmother Heart Maternal Grandfather Ischemic Heart Disease Maternal Grandfather stomach, ovarian. Heart Attack Paternal Grandfather Obesity Paternal Grandfather Ovarian cancer Other Great Grandmother SOCIAL HISTORY Social History Tobacco Use Smoking status: Never Smokeless tobacco: Never Vaping Use Vaping status: Former Substances: Nicotine, Flavoring Substance Use Topics Alcohol use: Yes Comment: 1 nightout every 2 months- 2-3 drinks-None since Drug use: Never REVIEW OF SYSTEMS Abdomen: No abdominal pain, nausea, vomiting, diarrhea, or constipation. No bloating, early satiety, indigestion, or increased flatulence. Bladder: No dysuria, gross hematuria, urinary frequency, urinary urgency, or incontinence. Breast: No breast lumps, nipple d/c, overlying skin changes, redness or skin retraction. Allergies and current medication updated:Yes SENSITIVE EXAM: The sensitive examination was discussed with the Patient or Patient's Authorized Systems Admin. As applicable, any other physician, advance practice provider, medical student, or other health professional student that will be observing or involved in the sensitive examination for educational or training purposes was discussed with the Patient or Authorized Systems Admin. The Patient or Authorized Systems Admin has agreed to proceed with the sensitive examination. (Sensitive examination includes inspection and/or palpation of the breasts, pelvis, prostate and anorectal regions). EXAM: BP 142/89 Pulse 89 Ht 5' 5.354 (1.66m) Wt 208 lb (94.3kg) SpO2 98% LMP 10/11/2024 BMI 34.24 kg/(m^2). GENERAL: pleasant, female in no apparent distress HEENT: Normocephalic, atraumatic, mucus membranes moist, and no lesions NECK: Supple, full range of motion, no adenopathy, and thyroid normal DERMATOLOGY: Normal, without lesions, non-icteric, and non-hirsute BREAST: soft, non-tender, symmetric, no dominant mass, normal nipple-areolar complex, no lymphadenopathy, and no nipple discharge CHEST: Normal inspiratory effort ABDOMEN: soft, non-tender, and no masses PELVIC: external genitalia normal, normal Bartholin's glands, urethra, Dozier's glands, no vulvar lesions, no cervical lesions, physiologic discharge present, normal appearing perineal body and perianal region BIMANUAL: uterus normal size, shape and consistency, no adnexal masses, and non-tender RECTOVAGINAL: deferred. NEURO: alert and oriented x3,exam grossly non-focal EXTREMITIES: normal ASSESSMENT/PLAN: 1) Health maintenance: Pap/HPV up to date. Mammogram - needs to schedule diagnostic testing Nutrition, exercise and routine health maintenance exams reviewed. Calcium/Vitamin D supplementation information provided. Colon cancer screening: up to date with screening 2) Contraception: tubal sterilization. Contraceptive options reviewed and information provided. 3) STD screening: Declined STD check. 4) Follow up one year or sooner as needed Chio Ash APRN.MARISELA documented [facility]-2025 [facility]05-[facility] Telephone encounter Note* Telephone Encounter - Zoraida Rodarte APRN.CNP - 10/02/2024 9:14 AM EDT The following approved medication requests have been transmitted electronically. Requested Prescriptions Signed Prescriptions Disp Refills chlorzoxazone (PARAFON FORTE DSC) 500 mg tablet 60 tablet 3 Sig: Take 1 tablet by mouth three times a day as needed. Authorizing Provider: ZORAIDA RODARTE APRN.CNP October 02, 2024 9:14 AM [facility]05-20-2025 Miscellaneous Notes* Telephone Encounter - Zoraida Rodarte APRN.CNP - 10/02/2024 9:14 AM EDT The following approved medication requests have been transmitted electronically. Requested Prescriptions Signed Prescriptions Disp Refills chlorzoxazone (PARAFON FORTE DSC) 500 mg tablet 60 tablet 3 Sig: Take 1 tablet by mouth three times a day as needed. Authorizing Provider: ZORAIDA RODARTE APRN.CNP October 02, 2024 9:14 AM * Telephone Encounter - Jennifer Clifford - 10/02/2024 8:00 AM EDT Physician: Aster Call from patient requesting refill. Please E-Scribe Last OV: 07/11/2024 with Aster Future OV: 10/03/2024 with Aster Requested Prescriptions Pending Prescriptions Disp Refills chlorzoxazone (PARAFON FORTE DSC) 500 mg tablet 60 tablet 3 Sig: Take 1 tablet by mouth three times a day as needed. [facility] documented in this encounterGe[facility]05-[facility]-2025 Telephone encounter Note * Telephone Encounter - Jennifer Clifford - 10/02/2024 8:00 AM EDT Physician: Aster Call from patient requesting refill. Please E-Scribe Last OV: 07/11/2024 with Aster Future OV: 10/03/2024 with Aster Requested Prescriptions Pending Prescriptions Disp Refills chlorzoxazone (PARAFON FORTE DSC) 500 mg tablet 60 tablet 3 Sig: Take 1 tablet by mouth three times a day as needed. Pharmacy Name: [facility]05-[facility] Telephone encounter Note* Telephone Encounter - Lay Baig RN - 09/18/2024 2:39 PM EDT Maria Elena Garay [[id number]] Referral ID: [id number] Status: Authorized Type: Injectable Class: Incoming Reason(s): Diagnosis: G43.719 (ICD-10-CM) - Chronic migraine without aura, intractable, without status migrainosus Procedure(s): J0585 - BOTULINUM TOXIN A PER 1 UNIT Start: September 18, 2024 Expiration: May 15, 2025 [facility]05-06-2025 Miscellaneous Notes* Telephone Encounter - Lay Baig RN - 09/18/2024 2:39 PM EDT Maria Elena Garay [[id number]] Referral ID: [id number] Status: Authorized Type: Injectable Class: Incoming Reason(s): Diagnosis: G43.719 (ICD-10-CM) - Chronic migraine without aura, intractable, without status migrainosus Procedure(s): J0585 - BOTULINUM TOXIN A PER 1 UNIT Start: September 18, 2024 Expiration: May 15, 2025 * Telephone Encounter - Alejandra Bloom - 09/17/2024 3:47 PM EDT Scheduled for Botox on 10/03/24 Call received for Russ De Dios PA-C regarding Maria Elena Marinelli T[birth year]a 1990. Caller: Self Patient Identified by Name and : Yes Was permission obtained from patient ? Yes Reason for Call: Botox Referral End date of current referral No referral currently active New Referral Needed ? Yes Have you contacted our registration department with you most recent insurance information ? No. [facility] soft transfer call to registration Last Office Visit: 07/20/2024 Last Distance Health visit: Visit date not found Next scheduled appointment: Visit date not found Best number to reach caller: [phone] Best time to reach caller: ANY Is it OK to leave a detailed voice message? Yes Alejandra Bloom documented in this encounterGeorgetown [facility]05-05-2025 Telephone encounter Note * Telephone Encounter - Alejandra Bloom - 09/17/2024 3:47 PM EDT Scheduled for Botox on 10/03/24 Call received for Russ De Dios PA-C regarding Maria Elena L Tanisha 1990. Caller: Self Patient Identified by Name and : Yes Was permission obtained from patient ? Yes Reason for Call: Botox Referral End date of current referral No referral currently active New Referral Needed ? Yes Have you contacted our registration department with you most recent insurance information ? No. Medical [employer] soft transfer call to registration Last Office Visit: 07/20/2024 Last Distance Health visit: Visit date not found Next scheduled appointment: Visit date not found Best number to reach caller: [phone] Best time to reach caller: ANY Is it OK to leave a detailed voice message? Yes Alejandra Bloom [facility]05-01-2025 [facility]05-01-[facility]25 History of Present illness Narrative* Luis Alfredo Starks - 09/13/2024 9:42 AM EDT Sleep Study Check-In Documentation Date: September 13, 2024 Name: Maria Elena Garay Comments: HST was returned in work order. Study did not occur. Device is blank. Called and spoke with pt. Pt declined to schedule at this time as patient stated they have new insurance and is unsure if new insurance will cover HSAT. Pt stated will call back to reschedule once they have information on new insurance if covered. Luis Alfredo Starks * Sarah Burgos - 09/11/2024 8:22 PM EDT Patient was contacted, she stated she has a stomach virus, she will be returning HSAT back unused fed ex only tomorrow, stated she wasn't sure what to do, requesting repeat once received back. * Sarah Burgos - 09/06/2024 2:08 PM EDT Nomad # [id number], date shipped out 09-06-24 [employer] only Tracking mailout: [id number] Tracking return: [id number] * Luis Alfredo Starks - 08/28/2024 2:40 PM EDT ADOC documented in this encounterGeorgetown [facility]04-29-2025 NoteS[facility]04-28-2025 Telephone encounter Note* Telephone Encounter - Cata Salinas LPN - 09/10/2024 2:14 PM EDT Electronic PA rec'd and completed for ondansetron 4mg. This was denied again. Dear Tomasa Laguerre: Recently, you or your doctor asked us to review a request for medication.We reviewed the request and it is not approved. We d like to explain why. We denied your request because we did not see what we need to approve the amount of the drug you asked for, (ondansetron 4 milligram). The health plan has a limit on the amount of this drug, 48 tablets per 30 day supply. We did not see why you need more than this amount (such as a medical necessity such as the prevention ofnausea and vomiting from daily chemotherapy or radiotherapy; or treatment of nausea and vomiting related to palliative care after an insufficient response, intolerance, or contraindication to dopamine receptor antagonist therapy; or for treatment of nausea and vomiting in [including hyperemesis gravidarum] after a trial of certain other medications). We cannot approve the amount requested, but you may fill up to the limit. We based this decision on your health plan's prior authorization clinical criteria named Ondansetron Agents Quantity Limit. Medications that are not medically necessary are an exclusion under your plan benefits and are not covered. [facility]04-28-2025 Miscellaneous Notes* Telephone Encounter - Cata Salinas LPN - 09/10/2024 2:14 PM EDT Electronic PA rec'd and completed for ondansetron 4mg. This was denied again. Deamiguelito Laguerre: Recently, you or your doctor asked us to review a request for medication.We reviewed the request and it is not approved. We d like to explain why. We denied your request because we did not see what we need to approve the amount of the drug you asked for, (ondansetron 4 milligram). The health plan has a limit on the amount of this drug, 48 tablets per 30 day supply. We did not see why you need more than this amount (such as a medical necessity such as the prevention ofnausea and vomiting from daily chemotherapy or radiotherapy; or treatment of nausea and vomiting related to palliative care after an insufficient response, intolerance, or contraindication to dopamine receptor antagonist therapy; or for treatment of nausea and vomiting in [including hyperemesis gravidarum] after a trial of certain other medications). We cannot approve the amount requested, but you may fill up to the limit. We based this decision on your health plan's prior authorization clinical criteria named Ondansetron Agents Quantity Limit. Medications that are not medically necessary are an exclusion under your plan benefits and are not covered. documented in this encounterGeorgetown [facility]al Hospital04-24-2025 NoteHNO ID: [id number] Author: ?, ?, ? Service: ? Author Type: ? Type: Progress Notes Filed: 09/13/2024 09:44 Note Text: Nomad # [id number], date shipped out 09-06-24 Fed Ex only Tracking mailout: [id number] Tracking return: [id number] Telephone encounter Note* Telephone Encounter - Tomasa Laguerre APRN.CNP - 08/30/2024 2:44 PM EDT The following approved medication requests have been transmitted electronically. Requested Prescriptions Pending Prescriptions Disp Refills ondansetron (ZOFRAN) 4 mg tablet 180 tablet 2 Sig: Take 2 tablets by mouth every 8 hours as needed for nausea/vomiting. Tomasa Laguerre APRN.CNP [facility]04-17-2025 Miscellaneous Notes* Telephone Encounter - Tomasa Laguerre APRN.CNP - 08/30/2024 2:44 PM EDT The following approved medication requests have been transmitted electronically. Requested Prescriptions Pending Prescriptions Disp Refills ondansetron (ZOFRAN) 4 mg tablet 180 tablet 2 Sig: Take 2 tablets by mouth every 8 hours as needed for nausea/vomiting. Tomasa Laguerre APRN.CNP * Telephone Encounter - Itzel Altman MA - 08/30/2024 2:21 PM EDT Prescription Refill Information The patient has been identified by name and date of : Yes Caregiver verified no other encounters exist for this prescription request: Yes Caregiver confirmed with patient/requestor that no other refills are due, in the near future, with this provider at this time: Yes The last office visit in the department: 05/15/24 Does the patient have a future office visit with this provider/department: No Requested Prescriptions Pending Prescriptions Disp Refills ondansetron (ZOFRAN) 4 mg tablet 180 tablet 2 Sig: Take 2 tablets by mouth every 8 hours as needed for nausea/vomiting. Itzel Altman MA August 30, 2024 2:21 PM documented in this encounterGeorgetown [facility] Hospital04-17-2025 Telephone encounter Note * Telephone Encounter - Itzel Altman MA - 08/30/2024 2:21 PM EDT Prescription Refill Information The patient has been identified by name and date of : Yes Caregiver verified no other encounters exist for this prescription request: Yes Caregiver confirmed with patient/requestor that no other refills are due, in the near future, with this provider at this time: Yes The last office visit in the department: 05/15/24 Does the patient have a future office visit with this provider/department: No Requested Prescriptions Pending Prescriptions Disp Refills ondansetron (ZOFRAN) 4 mg tablet 180 tablet 2 Sig: Take 2 tablets by mouth every 8 hours as needed for nausea/vomiting. Itzel Altman MA August 30, 2024 2:21 PM [facility]04-15-2025 NoteHNO ID: [id number] Author: ?, ?, ? Service: ? Author Type: ? Type: Progress Notes Filed: 09/13/2024 09:44 Note Text: [facility] Telephone encounter Note* Telephone Encounter - Eb Newton LPN - 08/20/2024 10:47 AM EDT [facility] cleaance form received via fax. Placed on the desk of Germania Dahl CNP for review. [facility]04-07-2025 Miscellaneous Notes* Telephone Encounter - Eb Newton LPN - 08/20/2024 10:47 AM EDT [facility] cleaance form received via fax. Placed on the desk of Germania Dahl CNP for review. documented in this encounterGeorgetown Behavioral Hospital04-03-2025 Instructions* Patient Instructions* Germania Dahl APRN.CNP - 08/16/2024 2:54 PM EDT PLAN AND RECOMMENDATIONS: [facility] Functional Medicine Practice Look up Leaky Gut Dr Will Miles Elimination diet for 3 weeks. Follow up as needed with cardiology CONTACT INFORMATION: Germania Dahl APRN.CNP Cardiology Nurse Practitioner Section of Regional Cardiology [facility] Dept of Cardiovascular Medicine [facility] [place] [address] [place], [place] [id number] Office Office documented in this encounterGeorgetown [facility]al Hospital04-03-2025 NoteS[facility]04-03-2025 History of Present illness Narrative* Germania Dahl APRN.UI ARCHITECT - 08/16/2024 2:21 PM EDT Images from the original note were not included. [facility] [place] Daniela Lomax Department of Cardiovascular Medicine SECTION OF CLINICAL CARDIOLOGY OUTPATIENT VISIT DATE August 16, 2024 OUTPATIENT VISIT TYPE ESTABLISHED PRIMARY CARE PHYSICIAN: Jes Fuentes [address] [place] [address] REFERRING PHYSICIAN: No referring provider defined for this encounter. CHIEF COMPLAINT: No chief complaint on file. HISTORY OF PRESENT ILLNESS: Ms. Garay is a 34 year old female with PMH of asthma, obesity, hypertension, migraine, vitamin D deficiency, iron deficiency, BLAISE, GERD, prediabetes who presents today for a cardiovascular medicinefollow-up visit after she saw Dr. Orelalna for the first time with cardiology for complaints of SVT May 14, 2024. At that time he ordered an echocardiogram. She is following up on those results today. She has had a ZIO and stress test in the past. What she shows me on her phone from her Fitbit is PACs. She cut back caffeine, eating better. But still having the symptoms Has been having a lot of abdominal pain. She actually had some blood in her stool last week which took her to the hospital. She had a recent EGD and colonoscopy. Was told that she has EOE as well as a lot of mucus and inflammation throughout her colon. 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 No overt allergies that she knows of. She denies shortness of breath, chest pain, dizziness, lightheadedness, lower extremity edema, PND,orthopnea, presyncope, syncope, or claudication symptoms Subjective PAST MEDICAL HISTORY Diagnosis Date Abnormal Pap smear of cervix ASCUS Acute appendicitis 04/2021 Allergic rhinitis, cause unspecified Anxiety 03/17/2010 buspar Arthritis Asthma Concussion 2007 Dysmenorrhea Excessive or frequent menstruation Heavy periods Iron deficiency anemia due to chronic blood loss 11/08/2023 Iron malabsorption 11/08/2023 Menorrhagia with regular cycle 11/08/2023 Mental disorder Migraine, unspecified, with intractable migraine, so stated, without mention of status migrainosus Migraine Ovarian cyst resolved Pain in joint, pelvic region and thigh 07/29/2014 Patellar disorder 09/01/2015 PID (acute pelvic inflammatory disease) 2012 PIH ( induced hypertension) 11/05/2015 Post depression 12/31/2015 Thyroid disease goiter Trauma PAST SURGICAL HISTORY Procedure Laterality Date [facility]IC[facility]/16/2023 Dr Loco ESOPHAGOGASTRODUODENOSCOPY TRANSORAL DIAGNOSTIC 03/21/2013 EGD HERNIA REPAIR HX INSERTION OF IUD 03/09/2024 Mirena KNEE 1 OP 2 VIEWS KNEE ARTHROSCOPY/SURGERY 11/2011 left LAP SURG APPENDECTOMY 04/24/2021 LAPAROSCOPY DIAGNOSTIC 05/31/2019 at [facility]-Dr. Oscar L[place]IS SURG CHOLECYSTECTOMY W/CHOLANGIOGRAPHY 02/14/2013 SALPINGECTOMY Bilateral 05/31/2019 B/L Salpingectomy at [facility]-Dr. Moore TONSILLECTOMY HX 03/2018 [facility]-Dr. James TUBAL LIGATION HX 01/13/2016 filshie clips Social History Tobacco Use Smoking status: Never Smokeless tobacco: Never Vaping Use Vaping status: Former Substances: Nicotine, Flavoring Substance Use Topics Alcohol use: Yes Comment: 1 nightout every 2 months- 2-3 drinks-None since Drug use: Never FAMILY HISTORY Problem Relation Age of Onset Cancer Mother thyroid, skin. - precancerous cervical cells on pap smear Hypertension Mother Thyroid Cancer Mother Migraines Mother Skin Cancer Mother Obesity Mother COPD Father Breast Cancer Maternal Grandmother Hypertension Maternal Grandmother Asthma Maternal Grandmother Anxiety disorder Maternal Grandmother Bipolar disorder Maternal Grandmother Obesity Maternal Grandmother Heart Maternal Grandfather Ischemic Heart Disease Maternal Grandfather stomach, ovarian. Heart Attack Paternal Grandfather Obesity Paternal Grandfather Ovarian cancer Other Great Grandmother ALLERGIES: ALLERGIES Allergen Reactions Compazine [Prochlor* Other: See Comments Akathisia with IV Compazine Reglan [Metoclopram* Other: See Comments Akathisia with IV Reglan Seasonal Allergies Unknown MEDICATIONS: diphenhydrAMINE (BENADRYL ALLERGY) 25 mg tablet Take 50 mg by mouth at bedtime as needed. topiramate (TOPAMAX) 50 mg tablet Take 1 tablet by mouth two times a day. rimegepant (NURTEC ODT) 75 mg disintegrating tablet Take 1 dissolvable tablet by mouth at migraine onset. Take only 1 tablet per 24 hours. metFORMIN ER (GLUCOPHAGE XR) 500 mg 24 hr tablet Take 2 tablets by mouth two times a day with meals. chlorzoxazone (PARAFON FORTE DSC) 500 mg tablet Take 1 tablet by mouth three times a day as needed. norethindrone (AYGESTIN) 5 mg tablet Take 1 tablet by mouth once daily for 10 days. venlafaxine ER (EFFEXOR XR) 150 mg 24 hr capsule Take 1 capsule by mouth once daily. albuterol HFA (PROVENTIL HFA, VENTOLIN HFA) 90 mcg/actuation inhaler Inhale 2 Puffs as instructed every 4 hours as needed for wheezing/shortness of breath. as instructed Lactobacillus acidophilus (FLORAJEN ACIDOPHILUS) 20 billion cell capsule Take 1 capsule by mouth once daily. (Patient not taking: Reported on 08/03/2024) pantoprazole DR (PROTONIX) 40 mg tablet TAKE 1 TABLET BY MOUTH TWICE A DAY atogepant (QULIPTA) 60 mg tablet Take 1 tablet (60 mg) by mouth once daily. propranolol ER (INDERAL LA) 80 mg 24 hr capsule Take 1 capsule by mouth once daily. gabapentin (NEURONTIN) 600 mg tablet Take 1 tablet by mouth three times a day. ondansetron (ZOFRAN) 4 mg tablet Take 2 tablets by mouth every 8 hours as needed for nausea/vomiting. ergocalciferol 50,000 unit capsule (VITAMIN D2, DRISDOL) Take 1 capsule by mouth one time a week. cyclobenzaprine (FLEXERIL) 10 mg tablet Take 1 tablet by mouth three times a day as needed. traMADol (ULTRAM) 50 mg tablet Take 1 tablet by mouth every 6 hours as needed for pain. albuterol (PROVENTIL) 2.5 mg /3 mL (0.083 %) nebulizer solution Use 3 mL via nebulizer every 4 hours as needed. Use over 5-15minutes. Cholecalciferol, Vitamin D3, 125 mcg (5,000 unit) cap Take 1 capsule by mouth once daily. REVIEW OF SYSTEMS: CARD: See HPI GENERAL: Negative for: Weight loss or gain, Fever and/or Chills HEENT: Negative for: Headache, Impaired Vision, Glasses, Hearing Impairment, Ringing in Ears, Nosebleeds, Bleeding Gums NECK: Negative for: Swelling, Pain, Stiffness RESPIRATORY: Negative for: Cough, Blood in Sputum, Shortness of breath, Wheezing, Apnea GASTROINTESTINAL: Negative for: Nausea, Vomiting, Diarrhea, Blood in stool, or Dark black stools MUSCULOSKELETAL: Negative for: Muscle or joint pain, Stiffness , Joint swelling NEUROLOGIC: Negative for: focal numbness/weakness, headaches, visual changes, ataxia, speech/language loss SKIN: Negative for: Rashes, Itching HEMATOLOGICAL/LYMPHATIC: Negative for: Easy bruising , Easy bleeding ENDOCRINE: Negative for: Heat or cold intolerance, Excessive sweating, Frequent urination, Frequentthirst Objective PHYSICAL EXAMINATION: [facility] 06/25/2024 (Exact Date) General: Well appearing, in no acute distress. Skin: No clubbing, no cyanosis. Eyes: Extra ocular movements intact Oropharynx: Teeth in good repair. Neck: No jugular venous distention, no carotid bruits, carotids have a normal upstroke. Lungs: Clear to auscultation bilaterally, no wheezing or rhonchi. Heart: Regular rhythm, S1, S2 normal, no murmur. No peripheral edema . Grade 2/4 distal pulses bilaterally. Abdomen: Soft, nontender, bowel sounds normal, no bruits. Neuro: Oriented to person, place and time, alert, cooperative, gait coordinated. CARDIOVASCULAR MEDICINE TESTING: No Cardiovascular testing perfomed today. Last ECHO Result Conclusion ECHO Collected: 06/14/2024 3:29 PM (Final result) Impression: CONCLUSIONS: - Exam indication: Palpitations - The left ventricle is normal in size. Left ventricular systolic function is normal. EF = 58 5% (2D biplane) Normal left ventricular diastolic function. - The right ventricle is normal in size. Right ventricular systolic function is normal. - There are no significant valvular abnormalities. - The patient has not had a prior [facility] echocardiographic exam for comparison. * * * Final * * * Last EKG Result Conclusion ECG COMPLETE Collected: 11/25/2023 7:58 AM (Final result) Impression: NORMAL SINUS RHYTHM NORMAL ECG Confirmed by MD ORELLANA GREGORY () on 11/28/2023 8:32:23 AM There were no tests performed for review. I personally interviewed, confirmed and edited the above information if obtained by others. Conclusion: (K59.89) Intestinal dysbiosis (primary encounter diagnosis) Comment: Would recommend that she have a functional medicine assessment for her dysbiosis/leaky gut/inflammatory process Plan: CONSULT TO FUNCTIONAL MEDICINE (I10) Hypertension, essential Comment: Blood pressure stable Plan: No change in meds (R00.2) Palpitations Comment: Does not appear to be any structural issue with the heart. Or electrical issue with the heart. I believe this is more likely related to her metabolic state, hormone state Plan: Would recommend intense healing of her abdominal issues. PLAN AND RECOMMENDATIONS: [facility] Functional Medicine Practice Look up Leaky Gut Dr Will Miles Elimination diet for 3 weeks. Follow up as needed with cardiology CONTACT INFORMATION: Germania Dahl APRN.MARISELA Cardiology Nurse Practitioner Section of Regional Cardiology [facility] Dept of Cardiovascular Medicine [facility] Heart and Vascular [place] [address] Office Office This note was partially generated using [employer]fish voice recognition system and may contain errors related to that system including grammar, punctuation, spelling, and words that may be inappropriate documented in this encounterGeorgetown Behavioral Hospital04-01-2025 Telephone encounter Note * Telephone Encounter - Itzel Altman MA - 08/14/2024 9:46 AM EDT Call to patient to make ER follow up appointment after [facility] ER visit on 08/13/24 for GI bleed. She had colonoscopy by Dr Fofana on 08/06/24 for chronic diarrhea for the last 6 months. She declined making appointment currently as she wanted to call Dr Fofana's office first. I advised that if she could not get in there within the next week or 2, she was free to call back and schedule with us and we could get her a referral to GI with [facility] if she wanted. She understood and was agreeable with plan. Itzel Altman MA August 14, 2024 9:50 AM [place] [address]-01-2025 Miscellaneous Notes* Telephone Encounter - Itzel Altman MA - 08/14/2024 9:46 AM EDT Call to patient to make ER follow up appointment after [facility] ER visit on 08/13/24 for GI bleed. She had colonoscopy by Dr Fofana on 08/06/24 for chronic diarrhea for the last 6 months. She declined making appointment currently as she wanted to call Dr Fofana's office first. I advised that if she could not get in there within the next week or 2, she was free to call back and schedule with us and we could get her a referral to GI with [facility] if she wanted. She understood and was agreeable with plan. Itzel Altman MA August 14, 2024 9:50 AM [facility] Radiology Diagnostic study note [facility] Imaging Services [address] [place], [place] [id number] Abdomen/Pelvis W IV Cont ONLY MR#: [id number] Acct: [id number] Name: MARIA ELENA GARAY Rep #: [id number] : 1990 F 33 From: Jen Gan MD PCP: Dr. Jes Fuentes MD Status: REG E R Study:Abdomen/Pelvis W IV Cont ONLY Date of E xam: 08/13/24 Exam# [id number] Ordering Dr: Nohemi Trevino DO PROCEDURE: ABDOMEN/PELVIS W IV CONT ONLY 08/13/2024 REASON FOR EXAM: 33-year-old female, colonoscopy on Tuesday, abdominal pain and BRBPR since Tuesday. TECHNIQUE: Abdomen and pelvis CT with intravenous contrast. Coronal and Sagittal reconstruction series were provided. PATIENT PREPARATION: Per protocol ORAL CONTRAST TYPE: None. CONTRAST: Isovue 370 VOLUME: 100mL One or more dose reduction techniques were used (e.g., Automated exposure control, adjustment of the mA and/or kV according to patient size, use of iterative reconstruction technique. RADIATION DOSE SUMMARY: CTDlvol: 26 mGy DLP: 1400 mGycm COMPARISON: CT abdomen pelvis 04/24/2021. FINDINGS: Lung bases: The lung bases are clear. The heart is normal in size. Liver: The liver is normal in size without focal hepatic mass. The major portalveins are patent. Minimal biliary ductal dilation. Gallbladder: Surgically absent. Spleen: Unremarkable. Pancreas: Unremarkable. Adrenals: Unremarkable. Kidneys: No hydronephrosis or nephrolithiasis. Bladder: Mildly distended and unremarkable. Reproductive Organs: Normal uterine size and contour. Ovaries are unremarkable. Right corpus luteum. Bowel: The bowel loops are normal in caliber. No ascites or pneumoperitoneum. Prior appendectomy. Lymph nodes: No suspicious lymph node enlargement. Vasculature: The abdominal aorta and IVC are normal. Bones: Unremarkable. CT/Abdomen/Pelvis W IV Cont ONLY IMPRESSION: UNREMARKABLE CONTRAST-ENHANCED CT OF THE ABDOMEN AND PELVIS Reading Location: [facility] CC: Dr. Guevara Trevino DO; Dr. Jes Fuentes MD ~ Drying Tumbler Operator: Signed [facility]03-24-2025 Consult note [facility] Medical Records Department [address] [place] [address] Anesthesia Postop Eval I 08/06/24 0945 MR#: [id number] Acct: [id number] Name: MARIA ELENA GARAY Rep #:[id number] : 1990 33 From: Deonte Louis PCP: Dr. Jes Fuentes MD Status:REG S DC Y Race: C Location: [place] [address] Anesthesia: Postop Eval I Current Vital Signs Temperature: 97.9 F Pulse Rate: 71 Blood Pressure: 114/85 Respiratory Rate: 16 Pulse Ox: 97 Oxygen Delivery Method: Room Air Assessment Airway patent: Yes Spontaneous unlabored respirations: Yes Mental status: Asleep nausea: No Vomiting: No Anesthesia Complication: No Fluid Hydration Crystalloid volume administer (ml): 40 Total IV fluid infused: 40 Progress Note Anesthesia document: Postop Eval 1 completed: Yes 08/06/24 0945 > Date _ Deonte Louis Cosigner Signature: Date CC: ~ Signed [facility]03-24-2025 Consult note [facility] Medical Records Department [address] [place] [address] Anesthesia Postop Eval II 08/06/24 1016 MR#: [id number] Acct: [id number] Name: MARIA ELENA GARAY Rep #:[id number] : 1990 33 From: Mary Ann Rehman PCP: Dr. Jes Fuentes MD Status:REG S DC Y Race: C Location: [place] [address] Anesthesia Postop Eval I Sum Postop Eval Completion status Anesthesia document: Postop Eval 1 completed: Yes Anesthesia Postop Eval I Summary Anesthesia Postop Eval I Summary: Anesthesia Postop Eval I: Assessment Summary Airway patent Yes 08/06/24 09:45 [email or web address] Spontaneous unlabored Yes 08/06/24 09:45 [email or web address] respirations Mental status Asleep 08/06/24 09:45 [email or web address] nausea No 08/06/24 09:45 [email or web address] Vomiting No 08/06/24 09:45 [email or web address] Anesthesia Postop Eval I: Fluid Summary Crystalloid volume administer 40 08/06/24 09:45 [email or web address] (ml) Colloids volume administered ( ml) Blood Product volume administered (ml) Total IV fluid infused 40 08/06/24 09:45 [email or web address] Anesthesia Postop Eval I: Summary Notes Anesthesia Complication No 08/06/24 09:45 [email or web address] Anesthesia Complication Comment: Post-operative progress note Anesthesia: Postop Eval II Evaluation Mental status: Awake Pain Level: 0 nausea: No Vomiting: No 08/06/24 1016 a> Date _ Mary Ann Coxignedith Signature: Date CC: ~ Signed [facility]03-24-2025 History and physical note Author Salbador Friend [facility] Note Date/Time August 06, 2024 8:3 3am [facility] Medical Records Department [address] [place] [address] History & Physical Exam 08/06/24 0832 MR#: [id number] Acct: [id number] Name: MARIA ELENA GARAY Rep #:[id number] : 1990 33 From: Salbador Fofana DO PCP: Dr. Jes Fuentes MD Status:REG S DC Location: [place] [address] HPI - General General Date of Admission: 08/06/24 Date of Service: 08/06/24 Chief Complaint: Diarrhea HPI Narrative MARIA ELENA GARAY, is a 33 F who presents for the evaluation of diarrhea. Pt has had diarrhea for a around 2 months now multiple times per day. Around thesame time, she started metformin for pre diabetes and weight loss. She tells me at first she has diarrhea but her bowels regulated and then started back up. Shedoes not feel it is related. Her PCP ordered stool testing which was unremarkable besides a slight elevation in the calprotectin. Anti diarrheals have been helpful but as soon as she stops them she will continue to have loose stools. Her stools are yellow and orange and she sees what she believes to be pills in it. She is s/p cholecystectomy. She has never had a colonoscopy. 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 SHe was started on pantoprazole 40 mg once a day. She denies any upper GI symptoms like n/v, heartburn or problems swallowing. [facility] Medical History Wears glasses Anemia Back pain Injury of head and neck Difficulty swallowing Gastric reflux Non-smoker Sleep apnea History of echocardiogram History of stress test Hypertension Cardiology follow-up encounter History of irregular heartbeat Anxiety Arthritis Asthma Tonsillectomy planned Migraines Home Medications ?Medication ?Instructions ?Recorded ?Last Taken ?Type gabapentin 100 mg capsule 400 mg PO TID MIGRAINS 10/0407/20/21 History albuterol sulfate 90 mcg/actuation 1 - 2 puff inhalati on Q6H PRN PRN 03/22/18 07/20/21 History aerosol inhaler (ProAir HFA) Asthma venlafaxine 75 mg tablet 150 mg PO DAILY 04/30/1912/04 History cholecalciferol (vitamin D3) 125 125 mcg PO DAILY 03/1607/20/21 History mcg (5,000 unit) tablet melatonin 10 mg tablet 10 mg PO QHS PRN sleep 03/3107/19/21 History ubrogepant 50 mg tablet (Ubrelvy) 50 mg PO BID PRN russell gladis headache 07/20/21 Unknown History atogepant 60 mg tablet 60 mg PO DAILY 12/14/23 Unkn own History chlorzoxazone 500 mg tablet 500 mg PO TID 12/14/23 Unk nown History pantoprazole 40 mg tablet,delayed 40 mg PO BID 4 Unknown History release propranolol 80 mg capsule,24 80 mg PO DAILY 12/14/23 0 08/04/24 History hr,extended release rimegepant 75 mg disintegrating 75 mg PO ONCE PRN migr venkat headache 12/14/23 Unknown History tablet (Nurtec ODT) tramadol 50 mg tablet 50 mg PO TID PRN pain Unknown History diphenhydramine HCl 25 mg capsule 25 mg PO QHS 5 Unknown History (Aler-Cap) ergocalciferol (vitamin D2) 1,250 1,250 mcg PO QWEEK 0 08/02/24 Unknown History mcg (50,000 unit) capsule metformin 500 mg tablet,extended 1,000 mg PO BID 08/0208/04/24 History release 24 hr ondansetron 4 mg disintegrating 8 mg PO Q8H PRN PRN Na usea 08/02/24 Unknown History tablet topiramate 25 mg tablet 25 mg PO QHS 08/02/24 Unknow n History Allergy/AdvReac Type Severity Reaction Status Date / Time metoclopramide (From Reglan) AdvReac severe Verified 08/06/24 08:10 anxious prochlorperazine (From AdvReac severe Verified 08/06/24 08:10 Compazine) anxious Family History Mother Thyroid cancer Skin cancer Hypertension Surgical History History of esophagogastroduodenoscopy (EGD) Hx of tubal ligation Hx of tonsillectomy History of appendectomy S/P cholecystectomy S/P left knee arthroscopy tubes clamped Social History household members: spouse Smoking Status: Never smoker alcohol intake: never substance use type: does not use ROS Constitutional Constitutional: Denies fatigue, fever(s), poor appetite, weight gain or weight loss Gastrointestinal Gastrointestinal: Denies belching, bloating, change in bowel habits, change in stool character, chewing difficulty, coffee ground emesis, constipation, cramping, diarrhea, dyspepsia, dysphagia, early satiety, excessive flatus, fecalincontinence, heartburn, hematemesis, hematochezia, hemorrhoids, loose stools, melena, nausea, odynophagia, rectal bleeding, tenesmus, vomiting or weight changes Vital Signs Vital Signs Vital Signs: 08/06/24 08:13 08/06/24 08:13 Temperature 98.1 F Temperature Source Temporal Pulse Rate 89 Respiratory Rate 16 Respiratory Pattern Normal Blood Pressure 147/98 H Blood Pressure Mean 114 Blood Pressure Source Monitor Blood Pressure Position Semi-Fowlers Blood Pressure Location Right Arm Pulse Ox 100 Oxygen Delivery Method Room Air Weight Weight: 214 lb 11.684 oz Body Mass Index (BMI) 35.7 Physical Exam Const alert, oriented x3, no apparent distress and healthy appearing General Appearance: cooperative GI normal to inspection, nondistended, normoactive bowel sounds, soft to palpation,non-tender and non-distended Percussion: normal to percussion Rectal Exam: deferred Assessment & Plan Assessment/Plan (1) Elevated fecal calprotectin: (2) Diarrhea: (3) Epigastric abdominal pain: PLAN: Assessment and Plan Assessment and Plan (1) Diarrhea: Status: Acute Plan: This is a 33 yo female pt with daily loose stools over the past two months. Workup started by PCP has been largely unremarkable besides a slight elevation in the calprotectin. She will undergo colonoscopy to assess her colon for IBD or other colitis. She is on metformin and I do have concern that it is a side effect of this medication. However, she has had good results with her pre diabetes and weight loss. Will consider discontinuation of metformin pending results of colonoscopy. In the mean time, she will be started on colestipol 1 gram per day to control loose stools. -Colonoscopy -Start colestipol -Consider stopping metformin -f/u after procedure Medications: New colestipol 1 g PO ONCE 60 tabs 1RF 08/06/24 0833 <Electronically signed by Salbador Fofana DO> Cosigner Signature (if applicable): CC: Dr. Jes Fuentes MD; Salbador Fofana DO~ Signed [facility] Work Phone: 1(412) 396-862303-24-2025 Evaluation note* Diagnosis Onset Date Resolution Status Admit Date Diarrhea acute August 06 7:59am Elevated fecal calprotectin acute August 06, 2024 7:59am Epigastric abdominal pain acute August 06, 2024 7:59am Abdominal pain acute 2024 2:30pm Diarrhea acute August 15 2:30pm Abdominal pain acute October 24, 2024 11:26am Eosinophilic esophagitis acute October 24, 2024 11:26am Epigastric abdominal pain acute October 24, 2024 11:26am [facility] Work Phone: 1(805) 311-969503-24-2025 Evaluation note* Diagnosis Onset Date Resolution Status Admit Date Diarrhea acute August 06 7:59am Elevated fecal calprotectin acute August 06, 2024 7:59am Epigastric abdominal pain acute August 06, 2024 7:59am Abdominal pain acute 2024 2:30pm Diarrhea acute August 15 2:30pm Abdominal pain acute October 24, 2024 11:26am Eosinophilic esophagitis acute October 24, 2024 11:26am Epigastric abdominal pain acute October 24, 2024 11:26am Diarrhea acute November 07 12:25pm Nausea and vomiting acute November 07, 2024 12:25pm [facility] Work Phone: 1(935) 737-642403-24-2025 Procedure note [facility] Medical Records Department [address] [place] [address] Operative Report - CC Letter MR#: [id number] Acct: [id number] Name: MARIA ELENA GARAY Rep #:[id number] : 1990 33 From: Salbador Fofana DO PCP: Dr. Jes Fuentes MD Status:REG S DC 08/06/2024 Jes Fuentes Re : Colonoscopy procedure for Maria Elena Garay Dear Gina This procedure was performed on Tuesday, August 06, 2024. My impressions and recommendations are as follows: Impressions : - Congested mucosa in the entire examined colon. Biopsied. - Diverticulosis in the recto-sigmoid colon and in the sigmoid colon. - Congested mucosa in the terminal ileum. Biopsied. Recommendations : - Discharge patient to home. - Resume previous diet. - Continue present medications. - Await pathology results. - Repeat colonoscopy in 5 years for surveillance. My findings are described in the full procedure note, which is enclosed. If I can be of further assistance, please feel free to contact me at . Sincerely, Salbador Fofana DO 08/06/2024 9:40:14 AM This report has been signed electronically. 08/06/2440 Date _ Salbador Pedrazaigner Signature: Date (if indicated) CC: Dr. Jes Fuentes MD; Salbador Fofana DO ~ Date Dictated: 08/06/24 0908 Date Transcribed: Drying Tumbler Operator: RF Signed [facility]03-24-2025 Procedure note [facility] Medical Records Department [address] [place] [address] Colonoscopy Report MR#: [id number] Acct: [id number] Name: MARIA ELENA GARAY Rep #:[id number] : 1990 33 From: Salbador Fofana DO PCP: Dr. Jes Fuentes MD Status:REG S DC Patient Name: Maria Elena Garay Procedure Date: 08/06/2024 9:08 AM Date of : 1990 Age: 33 Procedure: Colonoscopy Indications: Chronic diarrhea Providers: Salbador Fofana DO Medicines: Monitored Anesthesia Care Patient Profile: This is a 33 year old female. Refer to note in patient chart for documentation of history and physical. Last Colonoscopy: none. The patient's first colonoscopy is today. Complications: No immediate complications. Procedure: Pre-Anesthesia Assessment: - Prior to the procedure, a History and Physical was performed, and patient medications and allergies were reviewed. The patient is competent. The risks and benefits of the procedure and the sedation options and risks were discussed with the patient. All questions were answered and informed consent was obtained. Patient identification and proposed procedure were verified by the physician in the pre-procedure area. Mental Status Examination: alert and oriented. Airway Examination: normal oropharyngeal airway and neck mobility. Respiratory Examination: clear to auscultation. CV Examination: normal. Prophylactic Antibiotics: The patient does not require prophylactic antibiotics. Prior Anticoagulants: The patient has taken no anticoagulant or antiplatelet agents except for NSAID medication. ASA Grade Assessment: II - A patient with mild systemic disease. After reviewing the risks and benefits, the patient was deemed in satisfactory condition to undergo the procedure. The anesthesia plan was to use monitored anesthesia care (MAC). Immediately prior to administration of medications, the patient was re-assessed for adequacy to receive sedatives. The heart rate, respiratory rate, oxygen saturations, blood pressure, adequacy of pulmonary ventilation, and response to care were monitored throughout the procedure. The physical status of the patient was re-assessed after the procedure. After I obtained informed consent, the scope was passed under direct vision. Throughout the procedure, the patient's blood pressure, pulse, and oxygen saturations were monitored continuously. The Colonoscope was introduced through the anus and advanced to the terminal ileum. The colonoscopy was performed without difficulty. The patient tolerated the procedure well. The quality of the bowel preparation was adequate. The terminal ileum, ileocecal valve, appendiceal orifice, and rectum were photographed. Scope In: 9:25:56 AM Scope Withdrawal Time 0 hours 7 minutes 57 seconds Scope Out: 9:36:51 AM Total Procedure Duration Time 0 hours 10 minutes 55 seconds Findings: The perianal and digital rectal examinations were normal. An area of mildly congested mucosa was found in the entire colon. Biopsies were taken with a cold forceps for histology. Verification of patient identification for the specimen was done. Estimated blood loss was minimal. A few small-mouthed diverticula were found in the recto-sigmoid colon and sigmoid colon. A patchy area of the terminal ileum was congested. Biopsies were taken with a cold forceps for histology. Verification of patient identification for the specimen was done. Estimated blood loss was minimal. Impression: - Congested mucosa in the entire examined colon. Biopsied. - Diverticulosis in the recto-sigmoid colon and in the sigmoid colon. - Congested mucosa in the terminal ileum. Biopsied. Recommendation: - Discharge patient to home. - Resume previous diet. - Continue present medications. - Await pathology results. - Repeat colonoscopy in 5 years for surveillance. Procedure Code(s): --- Professional --- 07589, Colonoscopy, flexible; with biopsy, single or multiple CPT copyright 2021 [employer]. All rights reserved. The codes documented in this report are preliminary and upon library information technician review may be revised to meet current compliance requirements. Salbador Fofana DO 08/06/2024 9:40:14 AM This report has been signed electronically. Number of Addenda: 0 Note Initiated On: 08/06/2024 9:08 AM 08/06/24 0940 Date _ Salbador Pedrazaignedith Signature: Date (if indicated) CC: Dr. Jes Fuentes MD; Salbador Fofana DO ~ Date Dictated: 08/06/24 0908 Date Transcribed: Drying Tumbler Operator: RF Signed [facility]03-24-2025 Consult note [facility] Medical Records Department [address] [facility] [place] [place] [address] Pre-Anesthesia Evaluation 08/06/24 0912 MR#: [id number] Acct: [id number] Name: MARIA ELENA GARAY Rep #:[id number] : 1990 33 From: Jacques Mendez MD PCP: Dr. Jes Fuentes MD Status:REG S DC Y Race: C Location: [place] [address] ASA Classification* ASA Classification ASA Classification: 2 Assessment & Plan Anesthesia* Anesthesia Assessment Anesthesia Assessment: Discussed sedation and/or anesthesia options, risks, benefits, and alternatives with patient/parents/legal guardian/POA. Questions invited. The patient/parents/legal guardian/POA seems to understand and agrees to proceedwith anesthesia plan. Reviewed the physical assessment, medical history, allergy history and patient home medications list prior to surgery/procedure/anesthetic and documented any changes. Performed airway and anesthesia risk assessments. Anesthesia Type Anesthesia Type: MAC History Source History Obtained from:: Patient and Chart Anesthesia Focused Assessment* Temperature: 98.1 F Pulse Rate: 89 Blood Pressure: 147/98 Respiratory Rate: 16 Pulse Ox: 100 Oxygen Delivery Method: Room Air Airway Assessment Mouth opens: >3 cm Mallampati Score: II Teeth Condition: Missing (Patient has several missing teeth. Rest are tight.) Neck Range of motion (ROM): Full ROM Focused Labs Anesthesia Preop lab: CBC WBC 11.3 K/mm3 (4.4-11.0) H 03/20/24 13:46 4 RBC 4.88 M/mm3 (4.2-5.4) 03/20/24 13:46 03/20/24 Hgb 12.9 g/dL (12.0-15.0) 03/20/24 13:46 03/20/24 Hct 40.6 % (37-47) 03/20/24 13:46 03/20/24 Plt Count 523 K/mm3 (150-450) H 03/20/24 13:46 03/20/24 CHEMISTRY Potassium 3.7 mmol/L (3.5-5.1) 03/20/24 13:46 03/20/24 Sodium 138 mmol/L (136-145) 03/20/24 13:46 03/20/24 BUN 22 mg/dL (7-18) H 03/20/24 13:46 03/20/24 Creatinine 0.63 mg/dL (0.55-1.02) 03/20/24 13:46 03/20/24 Glucose 80 mg/dL (74-106) 03/20/24 13:46 03/20/24 TSH 1.40 uIU/mL (0.358-3.74) 07/20/13 18:08 COAG PT 13.2 SECONDS (11.7-14.9) 04/03/18 06:05 HCG, Quant < 1 mIU/mL (1-3) 03/20/24 13:46 03/20/24 Urine Test Negative Negative 05/31/19 08:40 05/31/19 Pre-Assessment Diagnosis/Proposed Procedure Planned Operative Procedure(s): COLONOSCOPY Anesthesia History Anesthesia History - manager training and development: Anesthesia History - manager training and development Hx Hospitalization No 08/02/24 09:48 Any Problems With Anesthesia PONV 08/02/24 09:48 Cholinesterase deficiency No 08/02/24 09:48 You/Your Family Experience No 08/02/24 09:48 fever (hyperthermia) with Relationship Recent Exposure to Contagious No 08/06/24 08:13 Disease Does patient have nerve No 08/02/24 09:48 stimulator Patient instructed to have device shut off --Does patient have Pacemaker No 08/06/24 08:13 or ICD? When Was Last Pacemaker Check QUESTION #4 FULL TEXT: You/Your Family Experience fever (hyperthermia) with Anesthesia Last Oral Intake Last Oral intake: Last Oral Intake NPO since 19:00 08/06/24 08:13 Meds taken in AM with sips of No 08/06/24 08:13 water? Meds patient instructed to take am of surgery Any additional information?: Yes NPO since: 06:00 (Patient finished prep at 6 AM.) PONV PONV - manager training and development: PONV - manager training and development Female Yes 08/02/24 09:48 HX of Motion Sickness Yes 08/02/24 09:48 HX of N/V After Surgery No 08/02/24 09:48 Non-Smoker Yes 08/02/24 09:48 Duration of Surgery greater No 08/02/24 09:48 than 60 minutes Number of Risk Factors 3 08/02/24 09:48 PONV Score Moderate Risk 08/02/24 09:48 Height & Weight Height & Weight: Anesthesia: Height & Weight Height 5 ft 5 in 08/06/24 08:13 Weight: 97.4 kg 08/06/24 08:13 Body Mass Index (BMI) 35.7 08/06/24 08:13 Respiratory Assessment Respiratory Assessment - manager training and development: Respiratory Tract Infection Hx - manager training and development Hx Respiratory Tract Infection No 08/02/24 09:48 STOP Sleep Apnea STOP Sleep Apnea - manager training and development: STOP Sleep Apnea - manager training and development Hx Hypertension Yes: NO MEDS PCP D/C'D 08/02/24 09:48 Hx Sleep Apnea No 08/02/24 09:48 CPAP BIPAP Do you snore loudly (louder No 08/02/24 09:48 than talking or can be heard Do you often feel tired/ No 08/02/24 09:48 fatigued/ sleepy during daytime? Has anyone observed you stop No 08/02/24 09:48 breathing during sleep? STOP Results Negative 08/02/24 09:48 QUESTION #5 FULL TEXT : Do you snore loudly (louder than talking or can be heard through closeddoors)? 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 Specify any problems Hx of Preganancy in last 3 No 08/02/24 09:48 Months Nurse Filling Out Transfusion VCHRISTIN 08/02/24 09:48 & Questions: Date: 08/02/24 08/02/24 09:48 Time: 09:50 08/02/24 09:48 Patient unable to answer at this time (ie. 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: /Reproductive Hx- manager training and development Hx Now No 08/02/24 09:48 Gestational Age (in weeks): EDC: Hx Hx Para Hx Section SAB No 08/02/24 09:48 PFS Medical History Wears glasses Anemia Back pain Injury of head and neck Difficulty swallowing Gastric reflux Non-smoker Sleep apnea History of echocardiogram History of stress test Hypertension Cardiology follow-up encounter History of irregular heartbeat Anxiety Arthritis Asthma Tonsillectomy planned Migraines Home Medications ?Medication ?Instructions ?Recorded ?Last Taken ?Type gabapentin 100 mg capsule 400 mg PO TID MIGRAINS 10/0407/20/21 History albuterol sulfate 90 mcg/actuation 1 - 2 puff inhalati on Q6H PRN PRN 03/22/18 07/20/21 History aerosol inhaler (ProAir HFA) Asthma venlafaxine 75 mg tablet 150 mg PO DAILY 04/30/1912/04 History cholecalciferol (vitamin D3) 125 125 mcg PO DAILY 03/1607/20/21 History mcg (5,000 unit) tablet melatonin 10 mg tablet 10 mg PO QHS PRN sleep 03/3107/19/21 History ubrogepant 50 mg tablet (Ubrelvy) 50 mg PO BID PRN russell gladis headache 07/20/21 Unknown History atogepant 60 mg tablet 60 mg PO DAILY 12/14/23 Unkn own History chlorzoxazone 500 mg tablet 500 mg PO TID 12/14/23 Unk nown History pantoprazole 40 mg tablet,delayed 40 mg PO BID 4 Unknown History release propranolol 80 mg capsule,24 80 mg PO DAILY 12/14/23 0 08/04/24 History hr,extended release rimegepant 75 mg disintegrating 75 mg PO ONCE PRN migr venkat headache 12/14/23 Unknown History tablet (Nurtec ODT) tramadol 50 mg tablet 50 mg PO TID PRN pain Unknown History diphenhydramine HCl 25 mg capsule 25 mg PO QHS 5 Unknown History (Aler-Cap) ergocalciferol (vitamin D2) 1,250 1,250 mcg PO QWEEK 0 08/02/24 Unknown History mcg (50,000 unit) capsule metformin 500 mg tablet,extended 1,000 mg PO BID 08/0208/04/24 History release 24 hr ondansetron 4 mg disintegrating 8 mg PO Q8H PRN PRN Na usea 08/02/24 Unknown History tablet topiramate 25 mg tablet 25 mg PO QHS 08/02/24 Unknow n History Allergy/AdvReac Type Severity Reaction Status Date / Time metoclopramide (From Reglan) AdvReac severe Verified 08/06/24 08:10 anxious prochlorperazine (From AdvReac severe Verified 08/06/24 08:10 Compazine) anxious Family History Mother Thyroid cancer Skin cancer Hypertension Surgical History History of esophagogastroduodenoscopy (EGD) Hx of tubal ligation Hx of tonsillectomy History of appendectomy S/P cholecystectomy S/P left knee arthroscopy tubes clamped Social History household members: spouse Smoking Status: Never smoker alcohol intake: never substance use type: does not use Review of Systems (Anesthesia) ROS Narrative System reviewed and no additional complaints, except as documented. 08/06/24917 pamela ANTONIO> Date _ Jacques Mendez MD Cosigner Signature: Date CC: ~ Signed [facility]03-24-2025 History and physical note [facility] Medical Records Department [address] [place] [address] History & Physical Exam 08/06/2432 MR#: [id number] Acct: [id number] Name: MARIA ELENA GARAY Rep #:[id number] : 1990 33 From: Salbador Fofana DO PCP: Dr. Jes Fuentes MD Status:REG S DC Location: [place] [address] HPI - General General Date of Admission: 08/06/24 Date of Service: 08/06/24 Chief Complaint: Diarrhea HPI Narrative MARIA ELENA GARAY, is a 33 F who presents for the evaluation of diarrhea. Pt has had diarrhea for a around 2 months now multiple times per day. Around thesame time, she started metformin for pre diabetes and weight loss. She tells me at first she has diarrhea but her bowels regulated and then started back up. Shedoes not feel it is related. Her PCP ordered stool testing which was unremarkable besides a slight elevation in the calprotectin. Anti diarrheals have been helpful but as soon as she stops them she will continue to have loose stools. Her stools are yellow andorange and she sees what she believes to be pills in it. She is s/p cholecystectomy. She has never had a colonoscopy. 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 SHe was started on pantoprazole 40 mg once a day. She denies any upper GI symptoms like n/v, heartburn or problems swallowing. [facility] Medical History Wears glasses Anemia Back pain Injury of head and neck Difficulty swallowing Gastric reflux Non-smoker Sleep apnea History of echocardiogram History of stress test Hypertension Cardiology follow-up encounter History of irregular heartbeat Anxiety Arthritis Asthma Tonsillectomy planned Migraines Home Medications ?Medication ?Instructions ?Recorded ?Last Taken ?Type gabapentin 100 mg capsule 400 mg PO TID MIGRAINS 10/0407/20/21 History albuterol sulfate 90 mcg/actuation 1 - 2 puff inhalati on Q6H PRN PRN 03/22/18 07/20/21 History aerosol inhaler (ProAir HFA) Asthma venlafaxine 75 mg tablet 150 mg PO DAILY 04/30/1912/04 History cholecalciferol (vitamin D3) 125 125 mcg PO DAILY 11/1 6/21 03/07/22 History mcg (5,000 unit) tablet melatonin 10 mg tablet 10 mg PO QHS PRN sleep 03/3107/19/21 History ubrogepant 50 mg tablet (Ubrelvy) 50 mg PO BID PRN russell gladis headache 07/20/21 Unknown History atogepant 60 mg tablet 60 mg PO DAILY 12/14/23 Unkn own History chlorzoxazone 500 mg tablet 500 mg PO TID 12/14/23 Unk nown History pantoprazole 40 mg tablet,delayed 40 mg PO BID 4 Unknown History release propranolol 80 mg capsule,24 80 mg PO DAILY 12/14/23 0 08/04/24 History hr,extended release rimegepant 75 mg disintegrating 75 mg PO ONCE PRN migr venkat headache 12/14/23 Unknown History tablet (Nurtec ODT) tramadol 50 mg tablet 50 mg PO TID PRN pain Unknown History diphenhydramine HCl 25 mg capsule 25 mg PO QHS 5 Unknown History (Aler-Cap) ergocalciferol (vitamin D2) 1,250 1,250 mcg PO QWEEK 0 08/02/24 Unknown History mcg (50,000 unit) capsule metformin 500 mg tablet,extended 1,000 mg PO BID 08/0208/04/24 History release 24 hr ondansetron 4 mg disintegrating 8 mg PO Q8H PRN PRN Na usea 08/02/24 Unknown History tablet topiramate 25 mg tablet 25 mg PO QHS 08/02/24 Unknow n History Allergy/AdvReac Type Severity Reaction Status Date / Time metoclopramide (From Reglan) AdvReac severe Verified 08/06/24 08:10 anxious prochlorperazine (From AdvReac severe Verified 08/06/24 08:10 Compazine) anxious Family History Mother Thyroid cancer Skin cancer Hypertension Surgical History History of esophagogastroduodenoscopy (EGD) Hx of tubal ligation Hx of tonsillectomy History of appendectomy S/P cholecystectomy S/P left knee arthroscopy tubes clamped Social History household members: spouse Smoking Status: Never smoker alcohol intake: never substance use type: does not use ROS Constitutional Constitutional: Denies fatigue, fever(s), poor appetite, weight gain or weight loss Gastrointestinal Gastrointestinal: Denies belching, bloating, change in bowel habits, change in stool character, chewing difficulty, coffee ground emesis, constipation, cramping, diarrhea, dyspepsia, dysphagia, earlysatiety, excessive flatus, fecalincontinence, heartburn, hematemesis, hematochezia, hemorrhoids, loose stools, melena, nausea, odynophagia, rectal bleeding, tenesmus, vomiting or weight changes Vital Signs Vital Signs Vital Signs: 08/06/24 08:13 08/06/24 08:13 Temperature 98.1 F Temperature Source Temporal Pulse Rate 89 Respiratory Rate 16 Respiratory Pattern Normal Blood Pressure 147/98 H Blood Pressure Mean 114 Blood Pressure Source Monitor Blood Pressure Position Semi-Fowlers Blood Pressure Location Right Arm Pulse Ox 100 Oxygen Delivery Method Room Air Weight Weight: 214 lb 11.684 oz Body Mass Index (BMI) 35.7 Physical Exam Const alert, oriented x3, no apparent distress and healthy appearing General Appearance: cooperative GI normal to inspection, nondistended, normoactive bowel sounds, soft to palpation,non-tender and non-distended Percussion: normal to percussion Rectal Exam: deferred Assessment & Plan Assessment/Plan (1) Elevated fecal calprotectin: (2) Diarrhea: (3) Epigastric abdominal pain: PLAN: Assessment and Plan Assessment and Plan (1) Diarrhea: Status: Acute Plan: This is a 33 yo female pt with daily loose stools over the past two months. Workup started by PCP has been largely unremarkable besides a slight elevation in the calprotectin. She will undergo colonoscopy to assess her colon for IBD or other colitis. She is on metformin and I do have concern that it is a side effect of this medication. However, she has had good results with her pre diabetes and weight loss. Will consider discontinuation of metformin pending results of colonoscopy. In the mean time, she will be started on colestipol 1 gram per day to control loose stools. -Colonoscopy -Start colestipol -Consider stopping metformin -f/u after procedure Medications: New colestipol 1 g PO ONCE 60 tabs 1RF 08/06/24 0833 Cosigner Signature (if applicable): CC: Dr. Jes Fuentes MD; Salbador Fofana DO~ Signed [facility]03-24-2025 [facility] Medical Records Department [address] [place] [address] History Physical Exam 08/06/24 0832 MR#: [id number] Acct: [id number] Name: MARIA ELENA GARAY Rep #: [id number] : 1990 33 From: Salbador Fofana DO PCP: Dr. Jes Fuentes MD Status:[facility] Location: [place] [address] HPI - General General Date of Admission: 08/06/24 Date of Service: 08/06/24 Chief Complaint: Diarrhea HPI Narrative MARIA ELENA GARAY, is a 33 F who presents for the evaluation of diarrhea. Pt has had diarrhea for a around 2 months now multiple times per day. Around the same time, she started metformin for pre diabetes and weight loss. She tells me at first she has diarrhea but her bowels regulated and then started back up. She does not feel it is related. Her PCP ordered stool testing which was unremarkable besides a slight elevation in the calprotectin. Anti diarrheals have been helpful but as soon as she stops them she will continue to have loose stools. Her stools are yellow and orange and she sees what she believes to be pills in it. She is s/p cholecystectomy. She has never had a colonoscopy. 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 SHe was started on pantoprazole 40 mg once a day. She denies any upper GI symptoms like n/v, heartburn or problems swallowing. [facility] Medical History Wears glasses Anemia Back pain Injury of head and neck Difficulty swallowing Gastric reflux Non-smoker Sleep apnea History of echocardiogram History of stress test Hypertension Cardiology follow-up encounter History of irregular heartbeat Anxiety Arthritis Asthma Tonsillectomy planned Migraines Home Medications ???Medication ???Instructions ???Recorded ???Last Taken ???Type gabapentin 100 mg capsule 400 mg PO TID MIGRAINS 10/04/16 History albuterol sulfate 90 mcg/actuation 1 - 2 puff inhalation Q6H PRN ND N 03/22/18 07/20/21 History aerosol inhaler (ProAir HFA) Asthma venlafaxine 75 mg tablet 150 mg PO DAILY 04/30/19 07/20/21 History cholecalciferol (vitamin D3) 125 125 mcg PO DAILY 03/31/21 07/20/21 History mcg (5,000 unit) tablet melatonin 10 mg tablet 10 mg PO QHS PRN sleep 03/31/21 History ubrogepant 50 mg tablet (Ubrelvy) 50 mg PO BID PRN migraine headach e 07/20/21 Unknown History atogepant 60 mg tablet 60 mg PO DAILY 12/14/23 Unknown Hi story chlorzoxazone 500 mg tablet 500 mg PO TID 12/14/23 Unknown His tory pantoprazole 40 mg tablet,delayed 40 mg PO BID 12/14/23 Unknown His tory release propranolol 80 mg capsule,24 80 mg PO DAILY 12/14/23 08/04/24 H istory hr,extended release rimegepant 75 mg disintegrating 75 mg PO ONCE PRN migraine headach e 12/14/23 Unknown History tablet (Nurtec ODT) tramadol 50 mg tablet 50 mg PO TID PRN pain 12/14/23 Unk nown History diphenhydramine HCl 25 mg capsule 25 mg PO QHS 08/02/24 Unknown His tory (Aler-Cap) ergocalciferol (vitamin D2) 1,250 1,250 mcg PO QWEEK 08/02/24 Unkno wn History mcg (50,000 unit) capsule metformin 500 mg tablet,extended 1,000 mg PO BID 08/02/24 08/04/24 History release 24 hr ondansetron 4 mg disintegrating 8 mg PO Q8H PRN PRN Nausea 5 Unknown History tablet topiramate 25 mg tablet 25 mg PO QHS 08/02/24 Unknown Hist ory Allergy/AdvReac Type Severity Reaction Status Date / Time metoclopramide (From Reglan) AdvReac severe Verified 08/06/24 08:10 anxious prochlorperazine (From AdvReac severe Verified 08/06/24 08:10 Compazine) anxious Family History Mother Thyroid cancer Skin cancer Hypertension Surgical History History of esophagogastroduodenoscopy (EGD) Hx of tubal ligation Hx of tonsillectomy History of appendectomy S/P cholecystectomy S/P left knee arthroscopy tubes clamped Social History household members: spouse Smoking Status: Never smoker alcohol intake: never substance use type: does not use ROS Constitutional Constitutional: Denies fatigue, fever(s), poor appetite, weight gain or weight loss Gastrointestinal Gastrointestinal: Denies belching, bloating, change in bowel habits, change in stool character, chewing difficulty, coffee ground emesis, constipation, cramping, diarrhea, dyspepsia, dysphagia, early satiety, excessive flatus, fecal incontinence, heartburn, hematemesis, hematochezia, hemorrhoids, loose stools, melena, nausea, odynophagia, rectal bleeding, tenesmus, vomiting or weight changes Vital Signs Vital Signs Vital Signs: 08/06/24 08:13 08/06/24 08:13 Temperature 98.1 F Te (more content not included)...[facility]03-21-2025 Note [facility]03-21-2025 History of Present illness Narrative* Aruna Hunter - 08/03/2024 8:39 AM EDT Maria Elena Garay 1990 08/03/2024 HPI: The patient is a 33-year-old female with a past medical history as outlined below. Seen here last year for leukocytosis and thrombocytosis. MPN panel negative. History of smoking: No. Vaped once or twice. Aquagenic pruritus: No. Erythromelalgia: No. History of DVT: No. History of arterial thromboembolism: Regular dental check ups: Yes. Always nauseated. Always super tired. All over muscle aches. On gabapentin for FM. Tingling from elbows distally. Right hand numb. More frequent palpitations. More so when walking up a grade. No asthma attack in about 2 years. No wheezing. BLAISE--Not using CPAP; not in a while. Menses--Regular. Typically 5-6 days. Heavy at first with clots. Interval History: Ms. Garay presents today for follow up and lab review. Plts remain mildly elevated today. Received IV iron last dose 02/20/24. Continues to have heavy menses. LMP 07/21/24 - Changing super tampon q45 minutes 4 days.Tried mirena - a lot of cramping and pain. Removed, did not go well. She has not followed up with fence supervisor as of yet. Ongoing migraine issues. Received dihydroergotamine (premed with steroids) last dose on 07/20/2024. No recent illness, fevers, chills or NS. Issues with diarrhea, she is noticing whole capsules in stool unsure of which medications they are. Started on Metformin and Topamax since last OV. Has been off BP meds for a while. They have not been refilled. 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 Moore LAPS SURG CHOLECYSTECTOMY W/CHOLANGIOGRAPHY 02/14/2013 SALPINGECTOMY Bilateral 05/31/2019 B/L Salpingectomy at [facility]-Dr. Moore TONSILLECTOMY HX 03/2018 [facility]-Dr. James TUBAL LIGATION HX 01/13/2016 filshie clips ALLERGIES Allergen Reactions Compazine [Prochlor* Other: See Comments Akathisia with IV Compazine Reglan [Metoclopram* Other: See Comments Akathisia with IV Reglan Seasonal Allergies Unknown Current Outpatient Medications Medication Sig diphenhydrAMINE (BENADRYL ALLERGY) 25 mg tablet Take 50 mg by mouth at bedtime as needed. topiramate (TOPAMAX) 50 mg tablet Take 1 tablet by mouth two times a day. rimegepant (NURTEC ODT) 75 mg disintegrating tablet Take 1 dissolvable tablet by mouth at migraine onset. Take only 1 tablet per 24 hours. metFORMIN ER (GLUCOPHAGE XR) 500 mg 24 hr tablet Take 2 tablets by mouth two times a day with meals. chlorzoxazone (PARAFON FORTE DSC) 500 mg tablet Take 1 tablet by mouth three times a day as needed. venlafaxine ER (EFFEXOR XR) 150 mg 24 hr capsule Take 1 capsule by mouth once daily. albuterol HFA (PROVENTIL HFA, VENTOLIN HFA) 90 mcg/actuation inhaler Inhale 2 Puffs as instructed every 4 hours as needed for wheezing/shortness of breath. as instructed pantoprazole DR (PROTONIX) 40 mg tablet TAKE 1 TABLET BY MOUTH TWICE A DAY atogepant (QULIPTA) 60 mg tablet Take 1 tablet (60 mg) by mouth once daily. propranolol ER (INDERAL LA) 80 mg 24 hr capsule Take 1 capsule by mouth once daily. gabapentin (NEURONTIN) 600 mg tablet Take 1 tablet by mouth three times a day. ondansetron (ZOFRAN) 4 mg tablet Take 2 tablets by mouth every 8 hours as needed for nausea/vomiting. ergocalciferol 50,000 unit capsule (VITAMIN D2, DRISDOL) Take 1 capsule by mouth one time a week. cyclobenzaprine (FLEXERIL) 10 mg tablet Take 1 tablet by mouth three times a day as needed. traMADol (ULTRAM) 50 mg tablet Take 1 tablet by mouth every 6 hours as needed for pain. albuterol (PROVENTIL) 2.5 mg /3 mL (0.083 %) nebulizer solution Use 3 mL via nebulizer every 4 hours as needed. Use over 5-15minutes. Cholecalciferol, Vitamin D3, 125 mcg (5,000 unit) cap Take 1 capsule by mouth once daily. norethindrone (AYGESTIN) 5 mg tablet Take 1 tablet by mouth once daily for 10 days. Lactobacillus acidophilus (FLORAJEN ACIDOPHILUS) 20 billion cell capsule Take 1 capsule by mouth once daily. (Patient not taking: Reported on 08/03/2024) No current facility-administered medications for this visit. Social History Tobacco Use Smoking status: Never Smokeless tobacco: Never Vaping Use Vaping status: Former Substances: Nicotine, Flavoring Substance Use Topics Alcohol use: Yes Comment: 1 nightout every 2 months- 2-3 drinks-None since Drug use: Never Family History Problem Relation Age of Onset Cancer Mother thyroid, skin. - precancerous cervical cells on pap smear Hypertension Mother Thyroid Cancer Mother Migraines Mother Skin Cancer Mother Obesity Mother COPD Father Breast Cancer Maternal Grandmother Hypertension Maternal Grandmother Asthma Maternal Grandmother Anxiety disorder Maternal Grandmother Bipolar disorder Maternal Grandmother Obesity Maternal Grandmother Heart Maternal Grandfather Ischemic Heart Disease Maternal Grandfather stomach, ovarian. Heart Attack Paternal Grandfather Obesity Paternal Grandfather Ovarian cancer Other Great Grandmother ROS: All systems reviewed on 08/03/2024 with pertinent positives and negatives as outlined in the interval history. PHYSICAL EXAM: Vitals: Blood pressure 145/105, pulse 91, temperature 37.4 C (99.3 F), temperature source Temporal, weight 98.9 kg (218 lb), last menstrual period 06/25/2024, SpO2 99%. Well-appearing and in no acute distress. EYES: Sclerae are anicteric bilaterally. ENT: Oral mucosa is unremarkable. There is no sign of thrush or mucositis. RESPIRATORY: Inspiratory breath sounds are of normal intensity in all singleton. No rales, wheezes or rhonchi. Expiratory phase is normal. CARDIOVASCULAR: Rhythm is regular. Normal intensity S1/S2. There is no gallop or murmur. ABDOMEN: The abdomen is nondistended. Extremities: No swelling or edema. SKIN: No jaundice or rash. No petechiae. NEUROLOGIC: dry can tender II-XII are grossly intact. No focal motor weakness. MUSCULOSKELETAL: No joint swelling or tenderness. No muscle wasting. I have performed the physical exam today (08/03/2024) and have edited the note to correlate with current findings. ASSESSMENT/PLAN: (D75.659) Thrombocytosis Assessment: -33-year-old female past medical history as outlined above. Several year history of leukocytosis and thrombocytosis. Has heavy menses, ongoing issue. Suspect iron deficiency with fluctuating iron levels. Also likely some degree of chronic inflammation. May be related to untreated sleep apnea. - MPN panel negative 12/03/22 - labs reviewed with pt today, iron studies have improved. - CBC is generally stable, ongoing thrombocytosis and leukocytosis - discussed may be reactionary to inflammation however if continues to rise would consider possiblebone marrow biopsy. - has colonoscopy planned for worsening diarrhea Plan: - labs in 4 weeks. Aruna Hunter APRN.UI ARCHITECT I spent a total of 30 minutes on the date of the service which included preparing to see the patient, [id number] patient care, completing clinical documentation, and counseling and educating the patient/family/caregiver. Portions of this note including HPI, ROS, impression/plan may have been copied forward as to provide important historical information essential in contributing to medical decision making. Documentation has been reviewed and edited as necessary to support clinical decision making for today's visit and to reflect my own independent evaluation of this patient. [facility] Instructions* Patient Instructions* Russ De Dios PA-C - 07/20/2024 11:09 AM EST Assessment: (G43.719) Intractable chronic 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 (primary encounter diagnosis) (G43.901) Status migrainosus Plan: Maria Elena Garay is a 33 year old year old female, with a history of asthma,BLAISE,HTN,obesity, reflux, thrombocytosis, and chronic migraines following up today for day 2 of infusions. Has tolerated infusions well and seen some improvement thus far. Follow up plan: Resume previous at home medications. Can consider coming in for day 3 of infusions next week if needed Follow-up with Padmini on 10/03 for next Botox treatment Can schedule 1 month postinfusion follow-up to review infusions and discuss alternative treatment options if needed [facility] History of Present illness Narrative* Katelyn Dyer RN - 07/20/2024 10:18 AM EST Pt in for second day of infusion. Pt rated headache 7/10. Pt has mild nausea and no dizziness. Educated pt on medications to be administered. Pt agreed to proceed as ordered. Pt has adriver.Pt requested Benadryl for sedation and Pepcid for heartburn, medicated as ordered. 1223 Zofran 8 mg IVP given for persistent nausea. 1228 Second dose of Benadryl 25 mg IVP given per pt's request. 1351 Pt requested Phenergan, medicated as ordered. Pts infusion complete. Headache 6/10. Pt stated mild nausea and mild dizziness. Pt discharged from txt room. [facility] History of Present illness Narrative* Russ De Dios PA-C - 07/20/2024 10:00 AM EST Images from the original note were not included. [facility] Note Subjective: Maria Elena Garay is a 33 year old year old female presenting for day 2 of infusions. Therapy Plan: DHE zofran toradol magnesium robaxin valproate New health conditions since orders were placed: No Cardiovascular risk factors: Hypertension Triptan dose in the last 24 hours: No Last muscle relaxer dose: Yes, last night Last NSAID dose: 2-3 days ago Current Preventative: Botox, Qulipta Topamax Current Abortive: Nurtec Labs: Latest Ref Rng & Units 05/15/2024 CBC WBC 3.70 - 11.00 k/uL 11.98 RBC 3.90 - 5.20 m/uL 4.97 Hemoglobin 11.5 - 15.5 g/dL 13.1 Hematocrit 36.0 - 46.0 % 41.7 MCV 80.0 - 100.0 fL 83.9 MCH 26.0 - 34.0 pg 26.4 MCHC 30.5 - 36.0 g/dL 31.4 RDW-CV 11.5 - 15.0 % 13.4 Platelet Count 150 - 400 k/uL 567 MPV 9.0 - 12.7 fL 9.8 Baso% % 0.8 Abs Neut (ANC) 1.45 - 7.50 k/uL 8.22 Abs Lymph 1.00 - 4.00 k/uL 2.43 Abs [place] <0.87 k/uL 0.54 Abs Eosin <0.46 k/uL 0.65 Abs Baso <0.11 k/uL 0.09 NRBC /100 WBC 0.0 Latest Ref Rng & Units 05/15/2024 CMP Sodium 136 - 144 mmol/L 139 Potassium 3.7 - 5.1 mmol/L 4.1 Chloride 98 - 107 mmol/L 104 CO2 22 - 30 mmol/L 23 Glucose 74 - 99 mg/dL 97 BUN 7 - 21 mg/dL 11 Creatinine 0.58 - 0.96 mg/dL 0.63 EGFR >=60 mL/min/1.73m 120 Protein, Total 6.3 - 8.0 g/dL 6.7 Albumin 3.9 - 4.9 g/dL 4.3 Calcium 8.5 - 10.2 mg/dL 9.4 Bilirubin, Total 0.2 - 1.3 mg/dL 0.4 AST 13 - 35 U/L 12 ALT 7 - 38 U/L 29 Alkaline Phosphatase 34 - 123 U/L 69 ALLERGIES Allergen Reactions Compazine [Prochlor* Other: See Comments Akathisia with IV Compazine Reglan [Metoclopram* Other: See Comments Akathisia with IV Reglan Seasonal Allergies Unknown Current Medications: rimegepant (NURTEC ODT) 75 mg disintegrating tablet^Take 1 dissolvable tablet by mouth at migraine onset. Take only 1 tablet per 24 hours.^Disp: 8 tablet^Rfl: 11 [START ON 08/22/2024] topiramate (TOPAMAX) 25 mg tablet^Take 1 tablet by mouth two times a day. Patient should start on August 22, 2024.^Disp: 180 tablet^Rfl: 1 metFORMIN ER (GLUCOPHAGE XR) 500 mg 24 hr tablet^Take 2 tablets by mouth two times a day with meals.^Disp: 360 tablet^Rfl: 1 chlorzoxazone (PARAFON FORTE DSC) 500 mg tablet^Take 1 tablet by mouth three times a day as needed.^Disp: 60 tablet^Rfl: 3 norethindrone (AYGESTIN) 5 mg tablet^Take 1 tablet by mouth once daily for 10 days.^Disp: 10 tablet^Rfl: 0 venlafaxine ER (EFFEXOR XR) 150 mg 24 hr capsule^Take 1 capsule by mouth once daily.^Disp: 90 capsule^Rfl: 3 albuterol HFA (PROVENTIL HFA, VENTOLIN HFA) 90 mcg/actuation inhaler^Inhale 2 Puffs as instructed every 4 hours as needed for wheezing/shortness of breath. as instructed^Disp: 1 Each^Rfl: 5 Lactobacillus acidophilus (FLORAJEN ACIDOPHILUS) 20 billion cell capsule^Take 1 capsule by mouth once daily.^Disp: 30 capsule^Rfl: [address] (PROTONIX) 40 mg tablet^TAKE 1 TABLET BY MOUTH TWICE A DAY^Disp: 180 tablet^Rfl: 1 atogepant (QULIPTA) 60 mg tablet^Take 1 tablet (60 mg) by mouth once daily.^Disp: 30 tablet^Rfl: 11 propranolol ER (INDERAL LA) 80 mg 24 hr capsule^Take 1 capsule by mouth once daily.^Disp: 90 capsule^Rfl: 3 gabapentin (NEURONTIN) 600 mg tablet^Take 1 tablet by mouth three times a day.^Disp: 270 tablet^Rfl: 3 ondansetron (ZOFRAN) 4 mg tablet^Take 2 tablets by mouth every 8 hours as needed for nausea/vomiting.^Disp: 180 tablet^Rfl: 2 ergocalciferol 50,000 unit capsule (VITAMIN D2, DRISDOL)^Take 1 capsule by mouth one time a week.^Disp: 12 capsule^Rfl: 3 cyclobenzaprine (FLEXERIL) 10 mg tablet^Take 1 tablet by mouth three times a day as needed.^Disp: 30 tablet^Rfl: 0 traMADol (ULTRAM) 50 mg tablet^Take 1 tablet by mouth every 6 hours as needed for pain.^Disp: 21 tablet^Rfl: 0 albuterol (PROVENTIL) 2.5 mg /3 mL (0.083 %) nebulizer solution^Use 3 mL via nebulizer every 4 hours as needed. Use over 5-15minutes.^Disp: 1 Package^Rfl: 0 Cholecalciferol, Vitamin D3, 125 mcg (5,000 unit) cap^Take 1 capsule by mouth once daily.^Disp: ^Rfl: Review of Systems: Review of system: Patient reports no change from the prior visit. Objective: VS: see infusion note for vital signs General: well appearing, in no acute distress, alert Neurological: Pain Behaviors: no pain behaviors observed Mental Status: Alert and oriented to person, place and time. Affect is normal and appropriate. Speech is spontaneous and fluent without dysarthria, normal in rate, volume and articulation, and clear,coherent, and relevant. Short and group home memory, cognition and general fund of knowledge are good. Attention span and concentration are excellent. Cranial Nerves: VII-face is symmetric without evidence of weakness. VIII-hearing intact. Assessment: (G43.719) Intractable chronic 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 (primary encounter diagnosis) (G43.901) Status migrainosus Plan: Maria Elena Garay is a 33 year old year old female, with a history of asthma,BLAISE,HTN,obesity, reflux, thrombocytosis, and chronic migraines following up today for day 2 of infusions. Has tolerated infusions well and seen some improvement thus far. Follow up plan: Resume previous at home medications. Can consider coming in for day 3 of infusions next week if needed Follow-up with Padmini on 10/03 for next Botox treatment Can schedule 1 month postinfusion follow-up to review infusions and discuss alternative treatment options if needed Level of service: Est level 1 (0-9 min): Time spent 4 min on the day of service, which included preparing to see the patient, [id number] patient care, completing clinical documentation, obtaining and/or reviewing separately obtained history, performing a medically appropriate examination, and counseling and educating the patient/family/caregiver. Russ De Dios PA-C Headache Section [facility] July 19, 2024 documented in this encounterGe[facility]03-[facility]-2025 [facility] History of Present illness Narrative* Kyra Weiss, 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.UI ARCHITECT - 07/19/2024 2:30 PM EST Images from the original note were not included. Headache Center Infusion M[facility]US Note Subjective: Maria Elena Garay is a 33 year old year old female presenting for day 1 of infusions. Therapy Plan: DHE zofran toradol magnesium robaxin valproate New health conditions since orders were placed: No Cardiovascular risk factors: Hypertension Triptan dose in the last 24 hours: No Last muscle relaxer dose: Yes, last night Last NSAID dose: 2-3 days ago Current Preventative: Botox, Qulipta Topamax Current Abortive: Nurtec Labs: Latest Ref Rng & Units 05/15/2024 CBC WBC 3.70 - 11.00 k/uL 11.98 RBC 3.90 - 5.20 m/uL 4.97 Hemoglobin 11.5 - 15.5 g/dL 13.1 Hematocrit 36.0 - 46.0 % 41.7 MCV 80.0 - 100.0 fL 83.9 MCH 26.0 - 34.0 pg 26.4 MCHC 30.5 - 36.0 g/dL 31.4 RDW-CV 11.5 - 15.0 % 13.4 Platelet Count 150 - 400 k/uL 567 MPV 9.0 - 12.7 fL 9.8 Baso% % 0.8 Abs Neut (ANC) 1.45 - 7.50 k/uL 8.22 Abs Lymph 1.00 - 4.00 k/uL 2.43 Abs [place] <0.87 k/uL 0.54 Abs Eosin <0.46 k/uL 0.65 Abs Baso <0.11 k/uL 0.09 NRBC /100 WBC 0.0 Latest Ref Rng & Units 05/15/2024 CMP Sodium 136 - 144 mmol/L 139 Potassium 3.7 - 5.1 mmol/L 4.1 Chloride 98 - 107 mmol/L 104 CO2 22 - 30 mmol/L 23 Glucose 74 - 99 mg/dL 97 BUN 7 - 21 mg/dL 11 Creatinine 0.58 - 0.96 mg/dL 0.63 EGFR >=60 mL/min/1.73m 120 Protein, Total 6.3 - 8.0 g/dL 6.7 Albumin 3.9 - 4.9 g/dL 4.3 Calcium 8.5 - 10.2 mg/dL 9.4 Bilirubin, Total 0.2 - 1.3 mg/dL 0.4 AST 13 - 35 U/L 12 ALT 7 - 38 U/L 29 Alkaline Phosphatase 34 - 123 U/L 69 ALLERGIES Allergen Reactions Compazine [Prochlor* Other: See Comments Akathisia with IV Compazine Reglan [Metoclopram* Other: See Comments Akathisia with IV Reglan Seasonal Allergies Unknown Current Medications: rimegepant (NURTEC ODT) 75 mg disintegrating tablet Take 1 dissolvable tablet by mouth at migraine onset. Take only 1 tablet per 24 hours. [START ON 08/22/2024] topiramate (TOPAMAX) 25 mg tablet Take 1 tablet by mouth two times a day. Patient should start on August 22, 2024. metFORMIN ER (GLUCOPHAGE XR) 500 mg 24 hr tablet Take 2 tablets by mouth two times a day with meals. chlorzoxazone (PARAFON FORTE DSC) 500 mg tablet Take 1 tablet by mouth three times a day as needed. norethindrone (AYGESTIN) 5 mg tablet Take 1 tablet by mouth once daily for 10 days. venlafaxine ER (EFFEXOR XR) 150 mg 24 hr capsule Take 1 capsule by mouth once daily. albuterol HFA (PROVENTIL HFA, VENTOLIN HFA) 90 mcg/actuation inhaler Inhale 2 Puffs as instructed every 4 hours as needed for wheezing/shortness of breath. as instructed Lactobacillus acidophilus (FLORAJEN ACIDOPHILUS) 20 billion cell capsule Take 1 capsule by mouth once daily. pantoprazole DR (PROTONIX) 40 mg tablet TAKE 1 TABLET BY MOUTH TWICE A DAY atogepant (QULIPTA) 60 mg tablet Take 1 tablet (60 mg) by mouth once daily. propranolol ER (INDERAL LA) 80 mg 24 hr capsule Take 1 capsule by mouth once daily. gabapentin (NEURONTIN) 600 mg tablet Take 1 tablet by mouth three times a day. ondansetron (ZOFRAN) 4 mg tablet Take 2 tablets by mouth every 8 hours as needed for nausea/vomiting. ergocalciferol 50,000 unit capsule (VITAMIN D2, DRISDOL) Take 1 capsule by mouth one time a week. cyclobenzaprine (FLEXERIL) 10 mg tablet Take 1 tablet by mouth three times a day as needed. traMADol (ULTRAM) 50 mg tablet Take 1 tablet by mouth every 6 hours as needed for pain. albuterol (PROVENTIL) 2.5 mg /3 mL (0.083 %) nebulizer solution Use 3 mL via nebulizer every 4 hours as needed. Use over 5-15minutes. Cholecalciferol, Vitamin D3, 125 mcg (5,000 unit) cap Take 1 capsule by mouth once daily. Review of Systems: Review of system: Patient reports no change from the prior visit. Objective: VS: see infusion note for vital signs General: well appearing, in no acute distress, alert, obese Lungs: normal breath sounds bilaterally CV: RRR, normal S1, S2 auscultated, no murmurs, and no JVD GI: Bowel sounds present in all four quadrants - Yes Neurological: Pain Behaviors: solicited verbal complaints Mental Status: Alert and oriented to person, place and time. Affect is normal and appropriate. Speech is spontaneous and fluent without dysarthria, normal in rate, volume and articulation, and clear,coherent, and relevant. Short and group home memory, cognition and general fund of knowledge are good. Attention span and concentration are good. Cranial Nerves: VII-face is symmetric without evidence of weakness. VIII-hearing intact. Assessment: Status migrainosus (primary encounter diagnosis) Plan: Maria Elena Garay is a 33 year old year old female, with a history of asthma,BLAISE,HTN,obesity, reflux, thrombocytosis, and chronic migraines following up today for day 1 of infusions. Follow up plan: Hold Triptans on infusion days or within 24 hours of infusion. Hold Muscle relaxers on infusion days or within 24 hours of infusion. Level of service: Est level 2 (10-19 min). Time spent 10 min on the day of service, which included preparing to see the patient, [id number] patient care, completing clinical documentation, performing a medically appropriate examination, and counseling and educating the patient/family/caregiver. Kyra Weiss APRN.MARISELA Headache Section [facility] July 19, 2024 documented in this encounterGe[facility]03-[facility]-2025 [facility] NoteS[facility]03-06-[facility] History of Present illness Narrative* Katelyn Dyer RN - 07/19/2024 11:26 AM EST Pt in for first day of infusion. Pt rated headache 8/10. Pt has moderate nausea and mild dizziness.Educated pt on medications to be administered. Pt agreed to proceed as ordered. 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 Ptrequested Benadryl for sedation. 1250 SCHMITZ with no change. Pt requested second dose of Zofran IVP. She hasn't been able to fall asleep. Can't relax. Offered another dose of Benadryl . Pt agrees to plan. 1300 Zofran 8 mg IVP and Benadryl 25 mg IVP given. 1457 Nausea persists. Phenergan added to therapy plan. Per pt she tolerates Phenergan well. Pt medicated with Phenergan 25 mg po. 1525 Nausea started improving. C/o heartburn, Pepcid 20 mg IVP given. Encouraged pt to drink water and sit up in a chair. Headachewith no change. Pts infusion complete. Headache 7/10. Pt stated mild nausea and no dizziness. Pt discharged from txt room. Heartburn resolved. documented in [facility]Ge[facility]03-[facility]-2025 Telephone encounter Note * Telephone Encounter - Enriqueta Lopez - 07/18/2024 1:07 PM EST Patient is scheduled [facility]03-05-2025 Miscellaneous Notes* Telephone Encounter - Enriqueta Lopez - 07/18/2024 1:07 PM EST Patient is scheduled * Addendum Note - Zoraida Rodarte APRN.CNP - 07/18/2024 10:00 AM EST Addended by: ZORAIDA RODARTE on: 07/18/2024 10:00 AM Modules accepted: Orders * Telephone Encounter - Zoraida Rodarte APRN.CNP - 07/18/2024 9:59 AM EST DHE therapy plan in place. Zoraida Rodarte APRN.CNP * Telephone Encounter - Zoila Martinez - 07/18/2024 9:15 AM EST Patient calling again wondering if orders still needed to be placed for her to obtain infusions. I don't think I see any, can you place some for her, please? If there are some, I do apologize for overlooking this. * Telephone Encounter - Farhat Smith - 07/18/2024 8:09 AM EST Pt is calling in to schedule SCHMITZ infusions she has been having a migraine for weeks now and it got worse after botox. Wants to get in tomorrow and Tuesday if possible. documented in this encounterGe[facility]03-05-2025 Note* Addendum Note - Zoraida Rodarte APRN.CNP - 07/18/2024 10:00 AM ESTAddended by: ZORAIDA RODARTE on: 07/18/2024 10:00 AM Modules accepted: Orders [facility]03-05-2025 Telephone encounter Note* Telephone Encounter - Zoraida Rodarte APRN.CNP - 07/18/2024 9:59 AM EST DHE therapy plan in place. Zoraida Rodarte APRN.CNP [facility]03-05-2025 Telephone encounter Note* Telephone Encounter - Zoila Martinez - 07/18/2024 9:15 AM EST Patient calling again wondering if orders still needed to be placed for her to obtain infusions. I don't think I see any, can you place some for her, please? If there are some, I do apologize for overlooking this. [facility]03-05-2025 Telephone encounter Note* Telephone Encounter - Farhat Smith - 07/18/2024 8:09 AM EST Pt is calling in to schedule SCHMITZ infusions she has been having a migraine for weeks now and it got worse after botox. Wants to get in tomorrow and Tuesday if possible. [facility]02-26-2025 Instructions* Patient Instructions* Zoraida Rodarte APRN.CNP - 07/11/2024 2:36 PM EST AFTER VISIT CARE BOTOX INJECTION While these procedures can be extremely helpful as part of your headache treatment plan, they can irritate the muscles and tissues in your head, neck and shoulders. Proper follow-up care is important to avoid muscle spasms and temporary pain increase within the following 3-5 days after your clinic visit. Here are some tips to help decrease side-effects that may occur and maximize the effectiveness of your pain relief -HYDRATION Hydration is important to help nourish your muscles and tissues. Drink 60-80 oz of non caffeinated fluid at least for 3 days after your visit. -REST Rest will help avoid further irritation of muscle and tissues. Remember that you need to give your body time to adjust. NO strenuous activity for at least the first 24 hours after your visit. Gentle stretching, yoga, meditation or even swimming is OK and encouraged. -ICE/HEAT Since these procedures irritate muscles, there can be some swelling. Alternating ice and heat every3-5 times per day may help decrease this, while also optimizing pain relief Use cool gel packs for ice for 10 min. Use a warm moist towel covered with a dry towel on neck and shoulders. Alternate stretching each side of the neck. -STRETCHING Slow, gentle stretching of the neck and shoulders once every hour is helpful to avoid muscle spasms. -TREAT MUSCLE SPASMS If you are already prescribed a muscle relaxer such as baclofen, tizanidine or flexeril, use as directed. If you do not have one, talk to your provider to find out if this would be safe for you to use. Do not rub or massage the area for 48- 72 hours. -OTHER No hair dyes or permanents for 24 hours. If you are paying out of pocket for Botox go online to Botox Savings Program and see if you qualifyfor reimbursement. Return in 3 months for your next Botox Injection documented in this encounterGeorgetown [facility]02-26-2025 History of Present illness Narrative* Zoraida Rodarte APRN.MARISELA - 07/11/2024 2:30 PM EST Images from the original note were not included. Headache Center Follow-up Visit Miscellaneous Patient Concerns: She has seen benefit with combination of Botox and Qulipta. She will get more headaches as Botox is wearing off. She can have difficulty getting her Qulipta on time. She has RX through [facility]. [facility] has not been able to fill her Nurtec, requesting to move this to [facility]. Impression: Chronic migraine without aura, intractable, without status migrainosus (primary encounter diagnosis) Follow-Up Onabotulinum Toxin A (BotoxTM) for Migraine Indication: Chronic Intractable Migraine Referral Expiration: 10/24/2024 Prior to the initiation of the FIRST treatment with Onabotulinum Toxin A, the patient reported the following average headache frequency over the past 3 MONTHS: Number of moderate-severe migraine days/month: 30 (daily) Number of mild migraine days/month: 0 Number of headache free days/month: 0 (0 headache-free hours) After treatment with Onabotulinum Toxin A: Number of moderate-severe migraine days/month: 10 Number of mild migraine days/month: 10 Number of headache free days/month: 10 (240 headache-free hours) Patient reduction in overall migraine days: Yes Patient reduction in moderate-severe migraine days: Yes Patient reduction of headache hours by 100 hours or more: Yes (reduction of 240 hours) Individual has obtained clinical benefit deemed significant by individual or prescriber (Y/N): Yes Patient's quality of life and ability to perform ADLs has improved (Y/N): Yes Side effects: none Wearing off: Yes The patient has been assessed for disorders which could contribute to breathing or swallowing difficulty, and there is no contraindication with PREEMPT Botox. There is no documented allergic reaction/hypersensitivity to any botulinum toxin and there is no active infection at proposed injection site. HEADACHE SCORES: 08/03/2022 11/02/2022 08/11/2023 Headache Questions ER visits since last office visit: 1 0 0 Hospital stays since last office visit 0 0 0 Limited ADLs in the last month: 12 20 15 Days missed from work or school in the last month: 5 4 5 Days headache pain free in the last month: 5 10 0 Days per month with ALL of the following symptoms - decreased productivity, light sensitivity and nausea: 18 20 Initial improvement of headache after botox injection at last visit: No change Minimally improved No change PRN medication usage in the last month: 18 5 5 Patient impression of improvement since last visit: No change No change Much worse 08/03/2022 11/02/2022 08/11/2023 HIT-6 HIT-6 65 (Severe impact) 75 (Severe impact) 70 (Severe impact) 05/03/2022 08/03/2022 11/02/2022 MYLA - 2/7 SCORES MYLA-2 Score 2 2 3 MYLA-7 Score 13 05/03/2022 08/03/2022 11/02/2022 Migraine Specific QOL - Higher scores indicate better HRQL Role Function-Restrictive Transformed Score (range: 0-100) 60 37.14 28.57 Role Function-Preventive Transformed Score (range: 0-100) 60 50 75 Emotional Function Transformed Score (range: 0-100) 60 20 20 11/02/2022 08/03/2022 05/03/2022 PHQ-9 Score 12 12 6 BP 131/88 Pulse 89 Ht 165.1 cm (5' 5) Wt 100 kg (220 lb 7.4 oz) LMP 06/25/2024 (Exact Date) BMI 36.69 kg/m Patient name: Maria Elena Garay : 1990 ALLERGIES Allergen Reactions Compazine [Prochlor* Other: See Comments Akathisia with IV Compazine Reglan [Metoclopram* Other: See Comments Akathisia with IV Reglan Seasonal Allergies Unknown UNIVERSAL PROTOCOL / SAFETY CHECKLIST Procedure: Onabotulinum toxin A for migraine Informed Consent Consent Obtained: Written Phelps Protocol A moment to CARE was completed SIGN IN Personnel directly involved with the procedure wore the appropriate PPE Special Equipment: N/A Patient/Surrogate Stated/Verified: Patient name, Date of , Relevant allergies and Intended procedure TIME OUT No relevant labs, photos, and/or imaging studies were applicable for review. Consent documented and matches the intended procedure No correct side/site applicable for marking and visibility. No medications required for procedure. No fire risk assessment and interventions applicable. No implant(s) inserted. SIGN OUT No specimen collected. Written Consent Obtained: Written LOT #: [id number] Expiration Date: Month: Year: 2026 Second vial: LOT #: [id number] Expiration Date: Month: Year: 2026 Injection Sites Left (Units) Left (Sites) Right (Units) Right (Sites) TOTAL (Units) Obstetrics Nurse Practitioner 5 1 5 1 10 Procerus Units: 5 Sites: 1 5 Frontalis 10 2 10 2 20 Temporalis optional follow the pain 20 10 4 2 20 10 4 2 60 Occipitalis optional follow the pain 15 7.5 3 2 15 7.5 3 2 45 Cervical PSP 10 2 10 2 20 Trapezius optional follow the pain 15 5 3 1 15 5 3 1 40 Total Units used: 200 Total Units wasted: 0 Prior Therapies Duration of Use Dose Side effect Analgesic Butalbital/acetaminophen/caffeine (Fioricet) Diclofenac (Voltaren, Cataflam, Cambia) Hydrocodone/Acetaminophen (Vicodin, [place]) Ketorolac (Toradol) Meclofenamate (Meclomen) Meloxicam (Mobic) Oxycodone/Acetaminophen (Percocet) Tramadol (Ultram) Anti-Anxiety Buspirone (Buspar) Anti-Convulsant Carbamazepine (Tegretol) Gabapentin (Neurontin) Topiramate (Topamax, Trokendi XL, Qudexy) Anti-Depressant and Antipsychotic Amitriptyline (Elavil) Bupropion (Wellbutrin) Citalopram (Celexa) Fluoxetine (Prozac) Sertraline (Zoloft) Venlafaxine (Effexor) Antiemetics Promethazine Reglan (Metoclopramide) Anti-Migraine Dihydroergotamine (DHE-45, Migranal) Eletriptan (Relpax) Naratriptan (Amerge) Rizatriptan (Maxalt) Sumatriptan (Imitrex, Sumavel) Blood Pressure Lisinopril (Zestril) Propranolol (Inderal) MABs Erenumab (Aimovig) Galcanezumab (Emgality) Eptinezumab (Vyepti) GEPANTS Ubrogepant (Ubrelvy) Rimegepant (Nurtec) Atogepant Botulinum Toxin Onabotulinum Toxin A (Botox) 6 treatments Muscle Relaxer Chlorzoxazone (Parafon Forte) Cyclobenzaprine (Flexeril) Supplements Magnesium Other Medications Prednisone Over the Counter Medications Acetaminophen (Tylenol) Acetaminophen/Aspirin/Caffeine (Excedrin, Goody s) Naproxen sodium (Aleve) Zoraida Rodarte APRN.UI ARCHITECT documented in this encounterGe[facility]02-26-2025 NoteS[facility]02-21-2025 History of Present illness Narrative* Liliane Crockett APRN.UI ARCHITECT - 07/06/2024 3:00 PM EST Images from the original note were not included. [facility] New Patient Evaluation PATIENT NAME: Maria Elena Garay DATE OF SERVICE: July 06, 2024 CONSULTING PROVIDER: Hilda Orellana [address] [facility] [address] REASON FOR CONSULT: Hilda Orellana sends the patient for an opinion about BLAISE, palpitations.My findings and recommendations will be transmitted electronically via shared medical record to theconsulting provider. Referred by cardiology -- seen for palpitations HPI: Maria Elena Garay is a 33 year old female. Sleep-related history: at least mild BLAISE diagnosed in 2022. She got the autoCPAP from [email or web address] but stopped using it. She now owes money to the [employer]. She has a nasal mask but opens mouth so she would likea FFM instead. She sleeps prone with face in pillow. SLEEP-WAKE SCHEDULE Bedtime: 1030 PM. She has a hard time falling asleep. Time to fall asleep: takes benedryl nightly Wake time: 545 AM, with an alarm. After falling asleep: she wakes up 0-1 time(s) per night, because of need to reposition or urination. On weekends, she might stay up later and sleep later Average total sleep time (in a 24 hour period): 7.5 hours. SLEEP-RELATED DETAILS Preferred sleep position: prone Breathing disturbances and other behaviors during sleep: light snoring. Bruxism: No. No TMD but has significant gag reflex. GERD or aspiration: No Waking up with heart pounding or racing: No Anxiety or rumination: No She does not report having an urge to move the legs in the evening (when resting) that is accompanied or caused by uncomfortable and/or unpleasant sensations in the legs. She has not been told that she has leg kicking during sleep. She denies any history of parasomnias. Excessive daytime sleepiness / fatigue is a problem. Excessive Daytime sleepiness/fatigue has been a problem for awhile. There is no history of a viral illness or significant head injury prior to the start of daytime sleepiness. She does not report sleep paralysis or sleep-related hallucinations or cataplexy WAKE-RELATED DETAILS She works but is not a shift worker. [facility] She does have difficulty with memory or concentration. She denies falling asleep or dozing off when driving. She does not take naps. She does drink 1/2 Mt Dew caffeinated beverages per day. She has lost 30 pounds since 8 mos. Patient Questionnaires Sleep Scores 11/02/2022 PHQ-9 Score 12 07/21/2023 PROMIS Global Health - (T-Scores - the mean of general population = 50. Five points is a clinicallymeaningful difference.) Physical T-Score 10 PAST TREATMENTS: AutoPAP PRIOR SLEEP STUDIES: A Home Sleep Test (HST) performed on 12/05/22 revealed an AHI of 9.6; supine index of 13.8; and a minimum oxygen saturation of 86%. PAST MEDICAL HISTORY Diagnosis Date Abnormal Pap smear of cervix ASCUS Acute appendicitis 04/2021 Allergic rhinitis, cause unspecified Anxiety 03/17/2010 buspar Arthritis Asthma Concussion 2007 Dysmenorrhea Excessive or frequent menstruation Heavy periods Iron deficiency anemia due to chronic blood loss 11/08/2023 Iron malabsorption 11/08/2023 Menorrhagia with regular cycle 11/08/2023 Mental disorder Migraine, unspecified, with intractable migraine, so stated, without mention of status migrainosus Migraine Ovarian cyst resolved Pain in joint, pelvic region and thigh 07/29/2014 Patellar disorder 09/01/2015 PID (acute pelvic inflammatory disease) 2012 PIH ( induced hypertension) 11/05/2015 Post depression 12/31/2015 Thyroid disease goiter Trauma PAST SURGICAL HISTORY Procedure Laterality Date APPENDECTOMY HX EGD W/O BRSH SPEC VARICIES INJ 06/16/2023 Dr Loco ESOPHAGOGASTRODUODENOSCOPY TRANSORAL DIAGNOSTIC 03/21/2013 EGD HERNIA REPAIR HX INSERTION OF IUD 03/09/2024 Mirena KNEE 1 OP 2 VIEWS KNEE ARTHROSCOPY/SURGERY 11/2011 left LAP SURG APPENDECTOMY 04/24/2021 LAPAROSCOPY DIAGNOSTIC 05/31/2019 at [facility]-Dr. Oscar [place] SURG CHOLECYSTECTOMY W/CHOLANGIOGRAPHY 02/14/2013 SALPINGECTOMY Bilateral 05/31/2019 B/L Salpingectomy at [facility]-Dr. Moore TONSILLECTOMY HX 03/2018 [facility]-Dr. James TUBAL LIGATION HX 01/13/2016 filshie clips ACTIVE PROBLEM LIST Anxiety Asthma Thyromegaly Obesity, Class II, Bmi 35-39.9 Thrombocytosis Neutropenia (Hcc) Hypertension, Essential Migraine Without Aura, Intractable, With Status Migrainosus Patellofemoral Arthralgia of Right Knee Intractable Chronic Migraine Without Aura and Without Status Migrainosus Left-Sided Low Back Pain With Left-Sided Sciatica Abdominal Pain Acute Appendicitis Chronic Tonsillitis Conjunctivitis Nausea Postoperative Hemorrhage Pharyngitis Strain of Lumbar Region Strain of Muscle At Thorax Level Vitamin D Deficiency Dyspepsia Iron Deficiency Anemia Due to Chronic Blood Loss Iron Malabsorption Menorrhagia With Regular Cycle Hyperglycemia Blaise (Obstructive Sleep Apnea) Gastroesophageal Reflux Disease Prediabetes Palpitations Class 3 Severe Obesity With Serious Comorbidity and Body Mass Index (Bmi) of 40.0 to 44.9 in Adult (Hcc) Ocular Migraine With Status Migrainosus, Not Intractable Allergies As of Date: 07/06/2024 Allergen Noted Reaction COMPAZINE [PROCHLORPERAZINE EDISY*07/20/2018 Other: See Comments REGLAN [METOCLOPRAMIDE HCL] 07/20/2018 Other: See Comments SEASONAL ALLERGIES 10/15/2010 Unknown Fully Assessed 07/06/2024 CURRENT MEDICATIONS: [START ON 08/22/2024] topiramate (TOPAMAX) 25 mg tablet^Take 1 tablet by mouth two times a day. Patient should start on August 22, 2024.^Disp: 180 tablet^Rfl: 1 metFORMIN ER (GLUCOPHAGE XR) 500 mg 24 hr tablet^Take 2 tablets by mouth two times a day with meals.^Disp: 360 tablet^Rfl: 1 chlorzoxazone (PARAFON FORTE DSC) 500 mg tablet^Take 1 tablet by mouth three times a day as needed.^Disp: 60 tablet^Rfl: 3 rimegepant (NURTEC ODT) 75 mg disintegrating tablet^Take 1 dissolvable tablet by mouth at migraine onset. Take only 1 tablet per 24 hours.^Disp: 8 tablet^Rfl: 13 venlafaxine ER (EFFEXOR XR) 150 mg 24 hr capsule^Take 1 capsule by mouth once daily.^Disp: 90 capsule^Rfl: 3 albuterol HFA (PROVENTIL HFA, VENTOLIN HFA) 90 mcg/actuation inhaler^Inhale 2 Puffs as instructed every 4 hours as needed for wheezing/shortness of breath. as instructed^Disp: 1 Each^Rfl: 5 Lactobacillus acidophilus (FLORAJEN ACIDOPHILUS) 20 billion cell capsule^Take 1 capsule by mouth once daily.^Disp: 30 capsule^Rfl: [address] (PROTONIX) 40 mg tablet^TAKE 1 TABLET BY MOUTH TWICE A DAY^Disp: 180 tablet^Rfl: 1 atogepant (QULIPTA) 60 mg tablet^Take 1 tablet (60 mg) by mouth once daily.^Disp: 30 tablet^Rfl: 11 propranolol ER (INDERAL LA) 80 mg 24 hr capsule^Take 1 capsule by mouth once daily.^Disp: 90 capsule^Rfl: 3 gabapentin (NEURONTIN) 600 mg tablet^Take 1 tablet by mouth three times a day.^Disp: 270 tablet^Rfl: 3 ondansetron (ZOFRAN) 4 mg tablet^Take 2 tablets by mouth every 8 hours as needed for nausea/vomiting.^Disp: 180 tablet^Rfl: 2 ergocalciferol 50,000 unit capsule (VITAMIN D2, DRISDOL)^Take 1 capsule by mouth one time a week.^Disp: 12 capsule^Rfl: 3 cyclobenzaprine (FLEXERIL) 10 mg tablet^Take 1 tablet by mouth three times a day as needed.^Disp: 30 tablet^Rfl: 0 traMADol (ULTRAM) 50 mg tablet^Take 1 tablet by mouth every 6 hours as needed for pain.^Disp: 21 tablet^Rfl: 0 albuterol (PROVENTIL) 2.5 mg /3 mL (0.083 %) nebulizer solution^Use 3 mL via nebulizer every 4 hours as needed. Use over 5-15minutes.^Disp: 1 Package^Rfl: 0 Cholecalciferol, Vitamin D3, 125 mcg (5,000 unit) cap^Take 1 capsule by mouth once daily.^Disp: ^Rfl: norethindrone (AYGESTIN) 5 mg tablet^Take 1 tablet by mouth once daily for 10 days.^Disp: 10 tablet^Rfl: 0 Prior Hypersomnia/Narcolepsy Medications (20 years) No data to display Prior RLS Medications (last 20 years) 02/21/2023 00:00 RLS Medications tramadol HCl 50 mg q 6 H PRN ORAL Details Outpatient prescription Prior Insomnia Medications (last 20 years) 06/16/2023 Insomnia Medications midazolam HCl/PF 1-5 mg, INTRAVENOUS, DIRECTED, Starting on Alisa 06/16/23 at 1000, Until Alisa 06/16/23at 1359 DOSING DIRECTED BY PHYSICIAN FOR PROCEDURAL SEDATION ONLY Intraprocedure -Rx End Details Hospital medication Review of Systems Constitutional: Positive for fatigue. Negative for recent unintentional weight change. Cardiovascular: Positive for palpitations (daytime). Neurological: Positive for headaches (migraines, due to next botox). SOCIAL HISTORY: Social History Tobacco Use Smoking status: Never Smokeless tobacco: Never Vaping Use Vaping status: Former Substances: Nicotine, Flavoring Substance Use Topics Alcohol use: Yes Comment: 1 nightout every 2 months- 2-3 drinks-None since Drug use: Never FAMILY HISTORY: FAMILY HISTORY Problem Relation Age of Onset Cancer Mother thyroid, skin. - precancerous cervical cells on pap smear Hypertension Mother Thyroid Cancer Mother Migraines Mother Skin Cancer Mother Obesity Mother COPD Father Breast Cancer Maternal Grandmother Hypertension Maternal Grandmother Asthma Maternal Grandmother Anxiety disorder Maternal Grandmother Bipolar disorder Maternal Grandmother Obesity Maternal Grandmother Heart Maternal Grandfather Ischemic Heart Disease Maternal Grandfather stomach, ovarian. Heart Attack Paternal Grandfather Obesity Paternal Grandfather Ovarian cancer Other Great Grandmother There is a family history of: Sleep apnea. Relative: grandfather, ?mother PHYSICAL EXAMINATION: Vital Signs: BP 128/85 (BP Position: Sitting, BP Cuff Size: Extra Large Adult) Pulse 80 Resp 18 Wt 99.5 kg(219 lb 6.4 oz) LMP 06/25/2024 (Exact Date) SpO2 99% BMI 36.51 kg/m PHYSICAL EXAM: General appearance: pleasant, NAD Mental status: alert and oriented, able to provide own history Constitutional: obese Skin: No visible rashes on exposed skin Neuro: No focal deficits observed, no tremors ENT : Posterior airspace: Sanderson tongue position 3, retrognathia absent. Overbite absent. High arched palate present. Tongue scalloping/ridging present. IMPRESSION/PLAN: G47.33 BLAISE (obstructive sleep apnea) (primary encounter diagnosis) R63.4 Weight loss Maria Elena Garay is a 33 year old female with PMH of at least mild BLAISE, attempted PAP therapy, intentional weight loss, migraine, HTN, palpitations, anxiety, obesity, prediabetes. We reviewed her 2022 HSAT, discussed that home studies underestimate the severity of BLAISE. DiscussedOSA, risks of untreated moderate to severe BLAISE. Discussed PAP therapy -- she is willing to try it again but would like a FFM rather than nasal mask; she owes [employer] money for the APAP (didn't meet comp liance). She sleeps side/prone. Provided sample small Vitera so she can try APAP again with a FFM. We talked about Oral Appliance Therapy but she has significant gag reflex so she thinks she wouldn'ttolerate it. - Home Sleep Apnea Test (HST) to re-evaluate for obstructive sleep apnea. BMI has decreased by 4. Iwill contact her with result. - Discussed with the patient the possible diagnosis, causes, and conditions associated with obstructive sleep apnea. - Avoid driving when drowsy. Recommend that if you are dozing off while driving, that you do not drive until your sleepiness is appropriately treated. -Encouraged healthy lifestyle with adequate sleep ( 7-9 hours per night), diet and exercise. - Results are usually available within 7-10 business days. If you do not hear from us within 1-2 weeks after testing, please contact us directly. - Follow up visit TBD Liliane Crockett APRN.MARISELA documented [facility] Note[facility] History of Present illness Narrative* Chio Ash APRN.MARISELA - 07/03/2024 3:30 PM EST Images from the original note were not included. Some documentation from previous visit of 02/24/2024 was copied and pasted, documentation has been reviewed and edited as necessary for today's visit. Patient Summary: Maria Elena is a 33 year old Female who presents for follow-up evaluation of obesity/weight management to treat and prevent related co- morbidities. In our previous visits we have discussed lifestyle intervention including a nutrition recommendations and physical activity optimization.Her last office visit was 4 months ago. Assessment/plan from last visit: - Metformin ER 500 mg tablet - 1 gm with dinner - Topiramate 25 mg tablet at bedtime with no SE. (100 mg daily dose caused brain fog) - Vitamin D weekly supplement No insurance coverage for bariatric surgery Sleep medicine appt 07/06/2024 - BLAISE CPAP but needs new mouth piece so not using Interval History PT specifies the following items as new or significant updates since the last appointment: Cardiology 05/14/24 negative workup, ECHO completed 06/14/2024 and normal. Recommended decreasing caffeine, increasing water, nutrition and then potentially titrating Inderal, treating BLAISE with 3 month follow-up. Continues to have same number of episodes of irregular HR/palpitations which [employer] records as irregular heart rhythm despite discontinuing all energy drinks. Does still drink regular Mt Dew 20 oz every other day. Weight loss since last vist: 13 lbs Date: Weight: BMI: Medications: 07/03/2024 220 lb 36.61 metformin ER up to 2 gm; topiramate 25 mg twice a day trial 02/24/2024 233 lb 38.82 Metformin ER 1 gm, Topiramate 25 mg at HS WC: 40.25, NC: 15.75 in 5% weight loss = 221 lbs, 10% weight loss = 210 lbs Anti-obesity medications: Topiramate 25 mg tablet Benefit: unsure Adverse effects: none Anti-obesity medications: Metformin ER 500 mg tablet Benefit: increased fullness Adverse effects: ? Diarrhea after eating pasta - unsure if caused by metformin Weight promoting medications: Gabapentin, propranolal ER - migraine/palpitations, venlafaxine Previous Diet (initial appointment): - 0540 B - 08 C4 SF energy drink and SKIP or package of mini chocolate chip muffinsWE eggs and alejo and sometimes plain bagel with butter S - sometimes grazes on small bag of chips or Skittles L - 1215 left overs or if orders out at work - burgers or pizza or WE - SKIP S - none D - 7 pm pasta casseroles with protein or pizza or cube steak/mashed potato. Sometimes veg - corn, potato, green peas and beans, carrots. Mt Dew 4/week Does not eat any raw vegetables. Eats bananas, applesauce, canned pear/peach S - sometimes ice cream or Skittles or brownies Fluids: water, C4 SF energy drink, regular Mt Dew 4/week, occasional regular Coke Cravings: sugar and salty Dietary changes: (Initial) B - 0745 cheese 10 gm protein and sometimes 60 gm protein powder in 14 oz 2% milk over 2 hours S - none L - 1245 leftovers of meat and potato or noodle casserole S - none D - 7 pm pasta casseroles with protein or pizza or cube steak/mashed potato. Sometimes veg - corn, potato, green peas and beans, carrots. (Smaller portions) S - 2-3/week - brownies or 2 [place] kisses or jerky Fluids - water, regular Mt Dew 4/week, occasional regular Coke Current Barriers: food cravings with menses, eating high-calorie drinks, and BLAISE Exercise: stable Regular exercise: no Strength/resistance exercise:no Barriers to regular exercise? 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 BLAISE YES ; CPAP YES but needs new mouth piece so not using Estimated Creatinine Clearance: 148.6 mL/min (based on SCr of 0.63 mg/dL). PAST MEDICAL HISTORY Diagnosis Date Abnormal Pap smear of cervix ASCUS Acute appendicitis 04/2021 Allergic rhinitis, cause unspecified Anxiety 03/17/2010 buspar Arthritis Asthma Concussion 2007 Dysmenorrhea Excessive or frequent menstruation Heavy periods Iron deficiency anemia due to chronic blood loss 11/08/2023 Iron malabsorption 11/08/2023 Menorrhagia with regular cycle 11/08/2023 Mental disorder Migraine, unspecified, with intractable migraine, so stated, without mention of status migrainosus Migraine Ovarian cyst resolved Pain in joint, pelvic region and thigh 07/29/2014 Patellar disorder 09/01/2015 PID (acute pelvic inflammatory disease) 2012 PIH ( induced hypertension) 11/05/2015 Post depression 12/31/2015 Thyroid disease goiter Trauma Current Outpatient Medications Medication Sig Dispense Refill chlorzoxazone (PARAFON FORTE DSC) 500 mg tablet Take 1 tablet by mouth three times a day as needed.60 tablet 3 norethindrone (AYGESTIN) 5 mg tablet Take 1 tablet by mouth once daily for 10 days. 10 tablet 0 metFORMIN ER (GLUCOPHAGE XR) 500 mg 24 hr tablet Take 1 tablet by mouth two times a day with meals.180 tablet 1 topiramate (TOPAMAX) 25 mg tablet Take 1 tablet by mouth daily at bedtime. 90 tablet 1 rimegepant (NURTEC ODT) 75 mg disintegrating tablet Take 1 dissolvable tablet by mouth at migraine onset. Take only 1 tablet per 24 hours. 8 tablet 13 venlafaxine ER (EFFEXOR XR) 150 mg 24 hr capsule Take 1 capsule by mouth once daily. 90 capsule 3 albuterol HFA (PROVENTIL HFA, VENTOLIN HFA) 90 mcg/actuation inhaler Inhale 2 Puffs as instructed every 4 hours as needed for wheezing/shortness of breath. as instructed 1 Each 5 Lactobacillus acidophilus (FLORAJEN ACIDOPHILUS) 20 billion cell capsule Take 1 capsule by mouth once daily. [address] (PROTONIX) 40 mg tablet TAKE 1 TABLET BY MOUTH TWICE A DAY 180 tablet 1 atogepant (QULIPTA) 60 mg tablet Take 1 tablet (60 mg) by mouth once daily. 30 tablet 11 propranolol ER (INDERAL LA) 80 mg 24 hr capsule Take 1 capsule by mouth once daily. 90 capsule 3 gabapentin (NEURONTIN) 600 mg tablet Take 1 tablet by mouth three times a day. 270 tablet 3 ondansetron (ZOFRAN) 4 mg tablet Take 2 tablets by mouth every 8 hours as needed for nausea/vomiting. 180 tablet 2 ergocalciferol 50,000 unit capsule (VITAMIN D2, DRISDOL) Take 1 capsule by mouth one time a week. 12 capsule 3 cyclobenzaprine (FLEXERIL) 10 mg tablet Take 1 tablet by mouth three times a day as needed. 30 tablet 0 traMADol (ULTRAM) 50 mg tablet Take 1 tablet by mouth every 6 hours as needed for pain. 21 tablet 0 albuterol (PROVENTIL) 2.5 mg /3 mL (0.083 %) nebulizer solution Use 3 mL via nebulizer every 4 hours as needed. Use over 5-15minutes. 1 Package 0 Cholecalciferol, Vitamin D3, 125 mcg (5,000 unit) cap Take 1 capsule by mouth once daily. No current facility-administered medications for this visit. ROS/Fam Hx pertaining to AOMs: CV: h/o palpitations/cardiac arrhythmia, Chest pain: intermittent, palpitations SVT, atrial tachycardia 01/2024 - SVT, atrial tachycardia 01/2024 - cardiology 05/14/24 negative workup, ECHO completed 06/14/2024 and normal. Recommended decreasing caffeine, increasing water, nutrition and then potentially titrating Inderal, treating BLAISE with 3 month follow-up. HTN: yes PULM: Asthma:yes GI: GERD:Yes ; Gallstones:removed 2012 cholecystectomy; Fatty liver disease:yes MSK: Joint Pain:yes NEURO: Migraines/SCHMITZ: yes Family: Medullary thyroid cancer: yes, patient reported mom had thyroid cancer, removal, 40's - does not know what kind of thyroid cancer but will ask Occupation:[employer] Contraception: tubal sterilization BP 130/86 Pulse 99 Wt 99.8 kg (220 lb) LMP 06/25/2024 (Exact Date) SpO2 100% BMI 36.61 kg/m Physical Exam Constitutional: She appears healthy. No distress. Results: recent labs reviewed with the patient. Latest Ref Rng & Units 05/15/2024 CMP Sodium 136 - 144 mmol/L 139 Potassium 3.7 - 5.1 mmol/L 4.1 Chloride 98 - 107 mmol/L 104 CO2 22 - 30 mmol/L 23 Glucose 74 - 99 mg/dL 97 BUN 7 - 21 mg/dL 11 Creatinine 0.58 - 0.96 mg/dL 0.63 EGFR >=60 mL/min/1.73m 120 Protein, Total 6.3 - 8.0 g/dL 6.7 Albumin 3.9 - 4.9 g/dL 4.3 Calcium 8.5 - 10.2 mg/dL 9.4 Bilirubin, Total 0.2 - 1.3 mg/dL 0.4 AST 13 - 35 U/L 12 ALT 7 - 38 U/L 29 Alkaline Phosphatase 34 - 123 U/L 69 Cholesterol, Total (mg/dL) Date Value 02/24/2024 229 01/06/2021 224 HDL Cholesterol (mg/dL) Date Value 02/24/2024 41 01/06/2021 37 LDL Cholesterol (mg/dL) Date Value 02/24/2024 142 01/06/2021 147 Triglyceride (mg/dL) Date Value 02/24/2024 229 01/06/2021 198 Latest Ref Rng & Units 05/15/2024 CBC WBC 3.70 - 11.00 k/uL 11.98 RBC 3.90 - 5.20 m/uL 4.97 Hemoglobin 11.5 - 15.5 g/dL 13.1 Hematocrit 36.0 - 46.0 % 41.7 MCV 80.0 - 100.0 fL 83.9 MCH 26.0 - 34.0 pg 26.4 MCHC 30.5 - 36.0 g/dL 31.4 RDW-CV 11.5 - 15.0 % 13.4 Platelet Count 150 - 400 k/uL 567 MPV 9.0 - 12.7 fL 9.8 Baso% % 0.8 Abs Neut (ANC) 1.45 - 7.50 k/uL 8.22 Abs Lymph 1.00 - 4.00 k/uL 2.43 Abs [place] <0.87 k/uL 0.54 Abs Eosin <0.46 k/uL 0.65 Abs Baso <0.11 k/uL 0.09 NRBC /100 WBC 0.0 Vitamin D 25 Hydroxy Date Value Ref Range Status 02/24/2024 23.0 (L) 31.0 - 80.0 ng/mL Final Comment: Classification of 25 OH Vitamin D status: Deficiency/Insufficiency: < or = 30 ng/ml. Sufficiency/Optimal Levels: 31-80 ng/mL Toxicity: > 100 ng/mL. Test performed by chemiluminescent immunoassay. 10/07/2023 20.5 (L) 31.0 - 80.0 ng/mL Final Comment: Classification of 25 OH Vitamin D status: Deficiency/Insufficiency: < or = 30 ng/ml. Sufficiency/Optimal Levels: 31-80 ng/mL Toxicity: > 100 ng/mL. Test performed by chemiluminescent immunoassay. TSH Date Value 05/15/2024 1.360 mIU/L 11/25/2023 2.050 mIU/L 06/12/2020 1.500 uU/mL 07/10/2018 3.580 uU/mL Hemoglobin A1C (%) Date Value 02/24/2024 5.0 11/25/2023 5.8 11/12/2022 5.6 06/12/2020 5.5 Insulin Date Value Ref Range Status 02/24/2024 41.9 (H) 3.0 - 25.0 mU/L Final Assessment/Plan: Maria Elena Garay is a 33 year old yo with Class II obesity who presented today for follow up for supervised weight loss to treat and prevent related co-morbidities. 1. Hypertension, essential - ICD9: 401.9, ICD10: I10 (primary diagnosis) - lisinopril 2. BLAISE (obstructive sleep apnea) - ICD9: 327.23, ICD10: G47.33 - CPAP but needs new mouth piece so not using. Upcoming appointment with sleep med 3. Gastroesophageal reflux disease, unspecified whether esophagitis present - ICD9: 530.81, ICD10: K21.9 - pantoprazole 4. Prediabetes - ICD9: 790.29, ICD10: R73.03 - METFORMIN ER 500 MG TABLET,EXTENDED RELEASE 24 HR 5. Palpitations - ICD9: 785.1, ICD10: R00.2 - propranolol ER SVT, atrial tachycardia 01/2024 - cardiology 05/14/24 negative workup, ECHO completed 06/14/2024 and normal. Recommended decreasing caffeine, increasing water, nutrition and then potentially titrating Inderal, treating BLAISE with 3 month follow-up. Continues to have same number of episodes of irregular HR/palpitations which [employer] records as irregular heart rhythm despite discontinuing all energy drinks. Does still drink regular Mt Dew 20 oz every other day. 6. Intractable chronic 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 - ICD9: 346.71, ICD10: G43.719 - migraines are a little better - Qulipta and Nurtec; Botox - TOPIRAMATE 25 MG TABLET - increase to 50 mg a day trial 7. Asthma, unspecified asthma severity, unspecified whether complicated, unspecified whether persistent - ICD9: 493.90, ICD10: J45.909 - albuterol inhaler as needed 8. Anxiety with depression - ICD9: 300.4, ICD10: F41.8 - venlafaxine 9. Vitamin D deficiency - ICD9: 268.9, ICD10: E55.9 - weekly supplement 10. Class 3 severe obesity with serious comorbidity and body mass index (BMI) of 40.0 to 44.9 in adult, unspecified obesity type (HCC) - ICD9: 278.01, V85.41, ICD10: E66.813, E66.01, Z68.41 Weight decreased Bariatric surgery is not covered by her insurance - METFORMIN ER 500 MG TABLET,EXTENDED RELEASE 24 HR - increase to 1 gm twice daily - TOPIRAMATE 25 MG TABLET at bedtime - can try taking 50 mg at bedtime or 25 mg twice a day -- We discussed several strategies to track food intake and increase mindfulness around eating while will decrease calorie intake. She was counseled on the following: - Recommended whole food balanced protein, controlled carbohydrate nutrition plan. - Given protein, whole food and high protein nutrition lists. -- Encouraged the patient to improve her physical activity. Although cardiovascular exercise is most beneficial for weight loss initially, we discussed healthy muscle from a combination of resistancetraining and cardiovascular exercise is the best extermination supervisor plan. An overall goal of 150-200 minutesper week of exercise has been effective in weight loss and maintenance. -- Reviewed that monitoring weight daily and food intake can have a positive impact on overall weight loss and maintenance of weight loss. Activity tracking can be used to stay on target for exercisehowever should not be used to reward oneself We reviewed that during management she is to report any concerning side effects of any pharmacotherapy she is placed on. She understands that she will need routine follow up in the office. Prior to any virtual visits in the future she will need to check her Blood pressure, weight, and pulse. Prescription instructions reviewed with patient as applicable. Potential red flag symptoms discussed with the patient. Reviewed appropriate action plan to take ifred flag symptoms occur. Patient agreeable to treatment plan. Follow up in 3 months Chio Ash CNP Advanced Education from the [employer] I spent a total of 67 minutes on the date of the service which included preparing to see the patient, [id number] patient care, completing clinical documentation, obtaining and/or reviewing separately obtained history, performing a medically appropriate examination, counseling and educating the pat ient/family/caregiver, ordering medications, tests, or procedures, and communicating results to thepatient/family/caregiver. documented in this encounterGe[facility]-2025 NoteS[facility]02-[facility]-20[facility] Instructions* Patient Instructions* Chio Ash APRN.CNP - 07/02/2024 8:51 PM EST - Eat primarily whole foods. Limit carbs, especially processed carbs. Eat - Meat, vegetables and fruits with skin on if possible, eggs, cheese. - Do not drink your calories - 30 grams of protein for your first meal of the day decreases your hunger during the day by up to 40 %. Options include: Premier Protein or generic 30 gm protein 1 gm sugar or 5 eggs or 2-3 eggs andsome unbreaded meat and/or cheese. No fruit, vegetables, bread, grain, yogurt, Smoothies, etc. - Walk for 15 minutes immediately after meal - Whole food balanced protein, controlled carbohydrate nutrition plan - 30 g of protein 3 times a day and up to 30 g of carbs at lunch and dinner only. Breakfast - 30 gm protein with limit of 2 gm carbohydrates. Options include: Premier Protein or generic 30 gm protein 1 gm sugar or 5 eggs or 2-3 eggs and some unbreaded meat and/or cheese. No fruit,vegetables, bread, grain, yogurt, Smoothies, etc. Lunch and dinner - 30 gm protein is the goal with less than 30 gm carbohydrates Snacks - all protein or more protein than carbs Protein - no carbs Egg 1 large - 6g Egg white 1 large 3.6g 3 oz is approximately the size of a deck of cards and equals 21 g protein so 4 oz is 28 gm protein Beef, Chicken, [place], Pork, Vasquez 1 oz 7g Fish, Tuna Fish 1 oz 7g (Starkist tuna packet 2.6 oz 17 gm protein) Seafood (Crabmeat, Shrimp, Lobster) 1 oz 6g Protein shakes (read labels) Premier Protein or generic [employer] Equate, [employer] High Performance- 30g protein & 1g carb - meal replacement Premier Protein powder or generic- 30 gm protein, 1g carb Premier Protein plant protein powder - 25 gm protein, 0 sugar/2 carb Vanilla and chocolate (not a meal replacement) Fairlife 30 gram protein - 30g protein & 3g carb BOOST Glucose Control Max 30g Protein Nutritional Drink - 30g protein & 1 carb - meal replacement Slimfast High Protein - 20g protein & 1g carb Ensure Max Protein Nutrition Shake 30g protein & 2 carb Protein AND carbs Beef/[place] Jerky 1 oz dried 10-15g protein - check carb count, can be high if sugar added Slim Roger - 6 gm protein and 4 net carb Great Value original turkey sausage sticks - 7 gm protein and 2 gm carb Radha & Kyle (at [employer]) Original smoked sausage sticks - 8 gm protein and 0 carb Imitation Crab Meat 1 oz - 2g protein & 4g carb Milk, skim 2% or 1% 8 oz - 8g protein & 12g carb Fairlife 2% milk 8 oz -13 g protein & 6g carb Botswanan yogurt Full Fat B[place]wanan Yogurt 1 cup - 20.4g protein & 9.1g carb 2% [place] Yogurt 1 cup - 22.7g protein & 9.1g carb 0% (fat-free) [place] Yogurt - 1 cup 24g protein & 9.3g carb Aldi Protein B[place]an yogurt single svg - 15g protein & 7g carb Chobani Zero Sugar single svg: - 12g protein & 5g carb Dannon B[place]an Light + Fit 1 single svg - 12g protein & 9g carb Oikos Pro single svg - 20g protein & 8g carb Oikos Triple Zero [place] Nonfat Yogurt 1 single svg - 15g protein & 7g carb Oikos Pro drinkable yogurt 1 single svg - 23 g protein & 8 g carb :ratio, KETO Friendly Dairy Snack 1 single svg - 15g protein & 2g carb :ratio Protein 1 single svg - 25g protein & 8g carb Two Good Lowfat [place] Yogurt, Squire, Lower Sugar - 12g protein & 2g carb Yoplait Protein 1 single svg 15gm protein & 5gm carb Dairy Free - [place] unsweetened [place]an almond/soy 15 gm protein & 3 gm carb Dairy Free - True Goodness by [employer] coconut-based yogurt alternative 1 gm protein 1 gm net carb 180 daniele Cheese each oz Brie 5.9g protein & 0.1g carb Cheddar 7g protein & 0.4g carb Bertrand 6.7g protein & 0.7g carb Cream Cheese 1.7g protein & 1.2g carb Feta 4g protein & 1.2g carb Mozzarella 6.3g protein & 0.6g carb Parmesan 10g protein & 0.9g carb Saudi [place] 7.6g protein & 1.5g carb Cottage Cheese 1/2 c Breakstone 2% 13g protein 7g carb Shawanda 2% 13g protein 5 g carb Good Culture 2% 14g protein 3g carb Arnold s Low Fat 12g protein & 4g carb Legumes Lentils cup 9g protein & 20g carb Villegas beans cup 7g protein & 20g carb Kidney, Black, [place], Cannellini beans cup 8g protein & 20g carb Soybeans 1/2 c 14g complete protein & 8.5g carb Pevely milk, unsweetened 8 oz 1g protein & 2g carb Soy milk 8 oz 3.5g protein & 1.6g carb Tofu 1/2 cup 10g protein & 2.3g carb Peanut butter, natural 2 Tbsp 7-8g protein & 4g net carbs, 190 calories PB2 powder 2 Tbsp 6g protein & 5g carb Nuts and Seeds per oz Almonds - 5.9g protein & 6.1g carb [place] Nuts - 4.0g protein & 3.4g carb Cashews - 5.1g protein & 9.2g carb Hazelnuts - 4.2g protein & 4.7g carb Hemp seeds/hearts 3 T/30 gms - 9.5 gm complete protein and 2.5 gm carb Peanuts - 7g protein & 4.6g carb Pecans - 2.6g protein & 3.9g carb Pistachios - 5.8g protein & 7.8g carb Pumpkin Seeds - 6.9g protein & 5g carb Ball Seeds - 5.8g protein & 5.6g carb Walnuts - 4.3g protein & 3.8g carb Edamame Beans (soybean) snack 1 pack 11 gm complete protein 2 carb 5 (FIVE) gram carb vegetable options 1 cup raw OR cup cooked: Asparagus Mason sprouts Beets Broccoli Brussel sprouts Cabbage Carrots Cauliflower Celery [place] Eggplant Green beans Lettuce Peppers Snap peas Spaghetti squash Spinach Tomato Turnips Zucchini 15 gram carb vegetable options cup cooked corn or hominy corn on the cob, large (5 oz) cup cooked green peas 4.3 gm complete protein cup cooked villegas beans 1 small potato or sweet potato cup cooked potato, plain cup cooked sweet potato, plain 1 cup winter squash (pumpkin, acorn, butternut) 1 cup marinara or pasta sauce - check label cup tomato juice cup tomato puree Beans, Seeds, Nuts cup cooked beans (kidney, yanes, red, green, etc.) cup cooked lentils cup baked beans 4 tablespoons nut butter <15 gram carb fruit options Berries have the lowest sugar content 1/2 medium apple - 12.5 carbs 1/2 medium avocado - 6.5 gm carbs 1/2 medium banana - 15 carbs 1/2 cup blueberries - 11 carbs - may actually help you lose weight 1/2 cup fresh cherries -11 carbs 1 medium Shayla -9 carbs 1/2 cup fresh cranberries - 6.5 carbs 1/2 c grapes - 15 carbs 1/2 medium grapefruit - 10.5 carbs 1/2 cup diced honeydew melon - 8 carbs 1 medium kiwi without skin - 11 carbs 1/2 cup sliced dallin -14 carbs 1 medium nectarine - 15 carbs 1 medium orange -15.5 carbs 1 medium peach -14.5 carbs=- 1/2 cup fresh pineapple -11 carbs 1 medium plum -7.5 carbs 1 prune - 6 carbs 1/4 c raisins - 31.25 carbs 1/2 cup raspberries -7.5 carbs 1/2 c strawberries - 12.7 carbs 1 medium tangerine -12 carbs 1/2 cup diced watermelon - 6 carbs Grains Brown rice 1/2 c 5.5g protein 24 carb White long-grain rice 1/2 c 2g protein 22.5 carb Quinoa 1/2 c 4 gm complete protein 25 carb Oatmeal, old fashioned 1/2 c 5g protein 27g carb High Protein Snack Ideas 1. Jerky 2. [place] mix without dried fruit 3. [place] roll-ups 4. Botswanan yogurt 5. Veggies and yogurt dip 6. Tuna 7. Hard-boiled eggs 8. Peanut butter with celery 9. Cheese slices/ Cheese Stick 10. Handful of almonds, peanuts or walnuts 11. Cottage Cheese 12. Beef sticks 13. Protein bars 14. Canned [place] 15. Pumpkin seeds 16. Nut butter 17. Protein shakes 18. Avocado and chicken salad 19. Egg muffins 20. Leftover protein or lunch meat 21. 1/2 c blended cottage cheese or Botswanan yogurt with dry ranch/Mrs. Dash/herb seasoning mix to make protein dip 22. 1/2 c blended cottage cheese with 1 Tbsp sugar-free dry cheesecake pudding mix 12g protein 10 carb 23. Pudding - 1 30 gm protein shake with 1/2 pkg sugar-free pudding 4 svgs - 7.8 gm protein, 5 carbeach svg 24. SF Sunkist or Root Beer with 1-2 Tablespoons heavy whipping cream 25. Mini frozen dessert bites - layer protein yogurt, skinny syrup and crushed nuts and freeze [facility]* Diagnosis Onset Date Resolution Status Admit Date Diarrhea acute June 05, 2024 2:18pm Diarrhea acute August 06 7:59am Elevated fecal calprotectin acute August 06, 2024 7:59am Epigastric abdominal pain acute August 06, 2024 7:59am [facility] Work Phone: [phone]) 571-394701-20-2025 Telephone encounter Note* Telephone Encounter - Anh Mckeon - 06/04/2024 7:58 AM EST Physician: Aster Call from patient requesting refill. Please E-Scribe Last office visit 04/18/24 with Aster in person Next office visit 07/11/24 with Aster in person Requested Prescriptions Pending Prescriptions Disp Refills chlorzoxazone (PARAFON FORTE DSC) 500 mg tablet 60 tablet 3 Sig: Take 1 tablet by mouth three times a day as needed. Pharmacy Name: [facility]01-20-[facility] Miscellaneous Notes* Telephone Encounter - Anh Mckeon - 06/04/2024 7:58 AM EST Physician: Aster Call from patient requesting refill. Please E-Scribe Last office visit 04/18/24 with Aster in person Next office visit 07/11/24 with Aster in person Requested Prescriptions Pending Prescriptions Disp Refills chlorzoxazone (PARAFON FORTE DSC) 500 mg tablet 60 tablet 3 Sig: Take 1 tablet by mouth three times a day as needed. [facility]: [facility] Telephone encounter Note * Telephone Encounter - Travis Kim LPN - 05/22/2024 11:59 AM EST Per scheduling, pt prefers to stay local. Requesting referral to be faxed to [facility]. Referral faxed per pt request. [facility]01-07-[facility] Miscellaneous Notes* Telephone Encounter - Travis Kim LPN - 05/22/2024 11:59 AM EST Per scheduling, pt prefers to stay local. Requesting referral to be faxed to [facility]. Referral faxed per pt request. * Telephone Encounter - Travis Kim LPN - 05/22/2024 10:09 AM EST TC to pt, notified of results/provider response. She verbalized understanding. Please assist pt with scheduling appt with GI. Travis Kim LPN * Telephone Encounter - Ofelia Delaney APRN.CNP - 05/22/2024 9:54 AM EST Can please let patient know that I received her test results. Everything looked okay, except: The calprotectin level was elevated, which happens with their is inflammation in the colon. The IGAwas low, which also can be low if there is an inflammatory bowel condition. Since this has been going on for some time, lets have her go ahead and get setup with GI for evaluation. I went ahead and put the referral in. Please help schedule. Ofelia Delaney APRN.MARISELA documented [facility]Ge[facility]01[facility] Telephone encounter Note * Telephone Encounter - Travis Kim LPN - 05/22/2024 10:09 AM EST TC to pt, notified of results/provider response. She verbalized understanding. Please assist pt with scheduling appt with GI. Travis Kim LPN [facility]01-07-20[facility] Telephone encounter Note* Telephone Encounter - Ofelia Delaney APRN.MARISELA - 05/22/2024 9:54 AM EST Can please let patient know that I received her test results. Everything looked okay, except: The calprotectin level was elevated, which happens with their is inflammation in the colon. The IGAwas low, which also can be low if there is an inflammatory bowel condition. Since this has been going on for some time, lets have her go ahead and get setup with GI for evaluation. I went ahead and put the referral in. Please help schedule. Ofelia Delaney APRN.UI ARCHITECT [facility]01-03-2025 NoteBorderline elevated. Re-evaluation in 4-6 weeks is recommended if clinically indicated.[facility] HospitalComment on above:Order Comment: Specimen Type: STOOL SPECIMENOrdering Facility: [facility] Address:[address] [place], [place] [address]Result Comment: Interpretation:<50.0 ug/g: Ksdkyz00.0 ug/g - 120.0 ug/g: Borderline elevated. Re-evaluation in 4-6 weeks is recommended if clinically indicated.>120.0 ug/g: ElevatedPerformed By: #### [id number] ####[facility] LABCLIA [id number] [place] [address] [place] 05-15-2024 Instructions* Patient Instructions* Ofelia Delaney APRN.MARISELA - 05/15/2024 11:50 AM EST Get the labs and the stool studies. Stay hydrated. Avoid milk/dairy products. Stick with foods that are easy to digest and avoid greasy/fatty/spicy foods. documented in this encounterGe[facility]12-31-2024 NoteShelby [facility] Hospital12-31-2024 History of Present illness Narrative* Ofelia Delaney APRN.MARISELA - 05/15/2024 11:31 AM EST This is a 33 year old female who presents today with: Patient presents with: Diarrhea: 1 month; has tried otc Pepto without relief HISTORY OF PRESENT ILLNESS: Maria Elena Garay is a 33 year old female. Patient presents with: Diarrhea: 1 month; has tried otc Pepto without relief Pt presents today with complaint of diarrhea X 1 month. Refers that it will start after eating. Refers that she will have to move her bowels several times after eating. Stools are both watery and unformed. No blood in the stool. Refers that she does get really bad stomach ache with the stomach. Refers stools are orange/yellow in color. Unsure if it started with an illness/stomach bug. Gets nauseated, but that is normal for her. No recent antibiotics. No recent travel. Diet hasn't changed and cannot identify a specific food trigger. Hx of sheng. Has tried pepto. Refers that slowed it down, but then it just came back. Unsure if any family hx of autoimmune processes. Has never had colonoscopy. 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 Menorrhagia with regular cycle 11/08/2023 Mental disorder Migraine, unspecified, with intractable migraine, so stated, without mention of status migrainosus Migraine Ovarian cyst resolved Pain in joint, pelvic region and thigh 07/29/2014 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 Oscar [place] SURG CHOLECYSTECTOMY W/CHOLANGIOGRAPHY 02/14/2013 SALPINGECTOMY Bilateral 05/31/2019 B/L Salpingectomy at [facility]-Dr. Moore TONSILLECTOMY HX 03/2018 [facility]-Dr. James TUBAL LIGATION HX 01/13/2016 filshie clips ALLERGIES Compazine [Prochlorperazine Edisylate], Reglan [Metoclopramide Hcl], and Seasonal Allergies MEDICATIONS Current Outpatient Medications Medication Sig norethindrone (AYGESTIN) 5 mg tablet Take 1 tablet by mouth once daily for 10 days. metFORMIN ER (GLUCOPHAGE XR) 500 mg 24 hr tablet Take 1 tablet by mouth two times a day with meals. topiramate (TOPAMAX) 25 mg tablet Take 1 tablet by mouth daily at bedtime. rimegepant (NURTEC ODT) 75 mg disintegrating tablet Take 1 dissolvable tablet by mouth at migraine onset. Take only 1 tablet per 24 hours. venlafaxine ER (EFFEXOR XR) 150 mg 24 hr capsule Take 1 capsule by mouth once daily. albuterol HFA (PROVENTIL HFA, VENTOLIN HFA) 90 mcg/actuation inhaler Inhale 2 Puffs as instructed every 4 hours as needed for wheezing/shortness of breath. as instructed chlorzoxazone (PARAFON FORTE DSC) 500 mg tablet Take 1 tablet by mouth three times a day as needed. Lactobacillus acidophilus (FLORAJEN ACIDOPHILUS) 20 billion cell capsule Take 1 capsule by mouth once daily. pantoprazole DR (PROTONIX) 40 mg tablet TAKE 1 TABLET BY MOUTH TWICE A DAY atogepant (QULIPTA) 60 mg tablet Take 1 tablet (60 mg) by mouth once daily. propranolol ER (INDERAL LA) 80 mg 24 hr capsule Take 1 capsule by mouth once daily. gabapentin (NEURONTIN) 600 mg tablet Take 1 tablet by mouth three times a day. ondansetron (ZOFRAN) 4 mg tablet Take 2 tablets by mouth every 8 hours as needed for nausea/vomiting. ergocalciferol 50,000 unit capsule (VITAMIN D2, DRISDOL) Take 1 capsule by mouth one time a week. cyclobenzaprine (FLEXERIL) 10 mg tablet Take 1 tablet by mouth three times a day as needed. traMADol (ULTRAM) 50 mg tablet Take 1 tablet by mouth every 6 hours as needed for pain. albuterol (PROVENTIL) 2.5 mg /3 mL (0.083 %) nebulizer solution Use 3 mL via nebulizer every 4 hours as needed. Use over 5-15minutes. Cholecalciferol, Vitamin D3, 125 mcg (5,000 unit) cap Take 1 capsule by mouth once daily. No current facility-administered medications for this visit. FAMILY HISTORY Problem Relation Age of Onset Cancer Mother thyroid, skin. - precancerous cervical cells on pap smear Hypertension Mother Thyroid Cancer Mother Migraines Mother Skin Cancer Mother Obesity Mother COPD Father Breast Cancer Maternal Grandmother Hypertension Maternal Grandmother Asthma Maternal Grandmother Anxiety disorder Maternal Grandmother Bipolar disorder Maternal Grandmother Obesity Maternal Grandmother Heart Maternal Grandfather Ischemic Heart Disease Maternal Grandfather stomach, ovarian. Heart Attack Paternal Grandfather Obesity Paternal Grandfather Ovarian cancer Other Great Grandmother Social History Tobacco Use Smoking status: Never Smokeless tobacco: Never Vaping Use Vaping status: Former Substances: Nicotine, Flavoring Substance Use Topics Alcohol use: Yes Comment: 1 nightout every 2 months- 2-3 drinks-None since Drug use: Never EXAM: BP 134/92 Pulse 94 Resp 16 LMP 03/28/2024 (Exact Date) SpO2 98% PHYSICAL EXAM: General Appearance: Well appearing, alert, in no acute distress, well-hydrated, well nourished.. Skin: Skin color, texture, turgor normal, no suspicious rashes or lesions. Head: Normocephalic, no masses, lesions, tenderness or abnormalities. Eyes: Anicteric sclera. Pupils are equally round and reactive to light. Extraocular movements are intact. . Lungs: Lungs clear to auscultation. No wheezing, rhonchi, rales.. Heart: RRR without murmur, gallop, or rubs. No ectopy. Abdomen: Abdomen soft, mild generalized tenderness. No rebound/guarding. Bowel sounds normal. No masses, organomegaly. Neurologic: Gait normal. Reflexes normal and symmetric. Sensation grossly intact.. ASSESSMENT/PLAN: 1. Diarrhea, unspecified type - ICD9: 787.91, ICD10: R19.7 Will go ahead and get labs and stool studies. Stay well hydrated. Follow-up pending results. - COMPLETE BLOOD COUNT AND DIFFERENTIAL - COMPREHENSIVE METABOLIC PANEL - MAGNESIUM - HELICOBACTER PYLORI ANTIGEN BY EIA, STOOL - NOROVIRUS GROUP 1 AND 2 - ENTERIC BACTERIAL PANEL BY PCR - C. DIFFICILE PCR - CRYPTOSPORIDIUM AND GIARDIA ANTIGENS BY EIA - THYROID STIMULATING HORMONE - SEDIMENTATION RATE, WESTERGREN - C-REACTIVE PROTEIN - CALPROTECTIN,FECAL - CELIAC SCREEN WITH REFLEX Discussed treatment plan and patient voices understanding. Patient's questions answered appropriately. Medications and potential side effects were discussed and patient voices understanding. Return to the office as scheduled or as needed for worsening/no improvement. Ofelia Delaney APRN.UI ARCHITECT documented in this encounterGe[facility]12-30-2024 NoteShelby [facility] Hospital12-30-2024 History of Present illness Narrative* Hilda Orellana DO - 05/14/2024 10:36 AM EST Images from the original note were not included. [facility] SE[facility] OUTPATIENT VISIT DATE May 14, 2024 PRIMARY CARE PHYSICIAN: Jes Fuentes [address] [place] [address] HISTORY OF PRESENT ILLNESS: Ms. Garay is a 33 year old female. The patient presents for evaluation treatment options of palpitations for which she was thought to have episodes of SVT which occurred on a recent heart monitor. She did have episodes however these were asymptomatic and short-lived. Multiple episodes of symptomswere transmitted with essentially no rhythm abnormalities. She does have a history of sleep apnea and is currently untreated as she had problems with needing a new mask which resulted in some financial difficulties. She denies chest discomfort, dyspnea, orthopnea, paroxysmal nocturnal dyspnea, near-syncope or syncope. She notes palpitations throughout various times of the day. The patient is lives at home with her and 3 sons. 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 She does not exercise on a regular basis. She eats a paucity of vegetables. She usually forgets to eat breakfast and has an energy drink. She has chronic migraines. Cardiac risk factors: None Impression: 1. Palpitations 2. Obstructive sleep apnea 3. History of hypertension 4. History of hyperlipidemia 5. History of migraines PLAN AND RECOMMENDATIONS: The patient has had a negative cardiac workup in regards to telemetry monitoring and previous stress testing. She should have echocardiography for thoroughness which we will write for today. In the interim we discussed that there are multiple reasons she may be tachycardic in regards to diet and lifestyle. We recommended decreasing caffeine, increasing free water, regular meals, increased amountsof protein, fruits and vegetables, etc. We discussed potentially titrating her Inderal but with a shared decision, we have decided to wait to see if diet and lifestyle improved such. Lastly, we discussed the importance of treatment of her sleep apnea as this may be causing multiple comorbidities inc luding her palpitations, hypertension and migraines to name a few. Once again we have made no additions or changes today. We will look forward to reevaluating her in 3 months time. Vitals: BP 112/68 Pulse 92 Ht 165.1 cm (5' 5) Wt 99.7 kg (219 lb 12.8 oz) LMP 03/28/2024 (Exact Date) SpO2 99% BMI 36.58 kg/m Physical Exam Vitals reviewed. Constitutional: General: She is not in acute distress. Appearance: Normal appearance. She is well-developed. HENT: Head: Normocephalic and atraumatic. Nose: Nose normal. Eyes: General: No scleral icterus. Right eye: No discharge. Left eye: No discharge. Pupils: Pupils are equal, round, and reactive to light. Neck: Thyroid: No thyromegaly. Vascular: No carotid bruit or JVD. Cardiovascular: Rate and Rhythm: Normal rate and regular rhythm. Heart sounds: Normal heart sounds. No murmur heard. No friction rub. No gallop. Pulmonary: Effort: Pulmonary effort is normal. No respiratory distress. Breath sounds: Normal breath sounds. No wheezing or rales. Abdominal: General: Bowel sounds are normal. Palpations: Abdomen is soft. Musculoskeletal: General: Normal range of motion. Cervical back: Normal range of motion and neck supple. Skin: General: Skin is warm and dry. Capillary Refill: Capillary refill takes less than 2 seconds. Coloration: Skin is not pale. Neurological: Mental Status: She is alert and oriented to person, place, and time. Cranial Nerves: No cranial nerve deficit. Psychiatric: Behavior: Behavior normal. Thought Content: Thought content normal. Judgment: Judgment normal. Review of Systems Constitutional: Negative for activity change and fatigue. HENT: Negative for ear pain and facial swelling. Eyes: Negative for pain and discharge. Respiratory: Negative for chest tightness and shortness of breath. Cardiovascular: Positive for palpitations. Negative for chest pain and leg swelling. Gastrointestinal: Negative for abdominal pain, blood in stool, nausea and vomiting. Endocrine: Negative for cold intolerance and heat intolerance. Genitourinary: Negative for frequency and hematuria. Musculoskeletal: Negative for arthralgias and gait problem. Skin: Negative for color change, pallor and rash. Allergic/Immunologic: Negative for immunocompromised state. Neurological: Positive for dizziness. Negative for syncope, light-headedness and headaches. Hematological: Negative for adenopathy. Does not bruise/bleed easily. Psychiatric/Behavioral: Negative for confusion. The patient is not nervous/anxious. PAST MEDICAL HISTORY Diagnosis Date Abnormal Pap smear of cervix ASCUS Acute appendicitis 04/2021 Allergic rhinitis, cause unspecified Anxiety 03/17/2010 buspar Arthritis Asthma Concussion 2007 Dysmenorrhea Excessive or frequent menstruation Heavy periods Iron deficiency anemia due to chronic blood loss 11/08/2023 Iron malabsorption 11/08/2023 Menorrhagia with regular cycle 11/08/2023 Mental disorder Migraine, unspecified, with intractable migraine, so stated, without mention of status migrainosus Migraine Ovarian cyst resolved Pain in joint, pelvic region and thigh 07/29/2014 Patellar disorder 09/01/2015 PID (acute pelvic inflammatory disease) 2013 PIH ( induced hypertension) 11/05/2015 Post depression 12/31/2015 Thyroid disease goiter Trauma PAST SURGICAL HISTORY Procedure Laterality Date APPENDECTOMY HX EGD W/O [facility] SPEC VARICIES INJ 06/16/2023 Dr Loco ESOPHAGOGASTRODUODENOSCOPY TRANSORAL DIAGNOSTIC 03/21/2013 EGD HERNIA REPAIR HX INSERTION OF IUD 03/09/2024 Mirena KNEE 1 OP 2 VIEWS KNEE ARTHROSCOPY/SURGERY 11/2011 left LAP SURG APPENDECTOMY 04/24/2021 LAPAROSCOPY DIAGNOSTIC 05/31/2019 at [facility]-Dr. Oscar LOUIS SURG CHOLECYSTECTOMY W/CHOLANGIOGRAPHY 02/14/2013 SALPINGECTOMY Bilateral 05/31/2019 B/L Salpingectomy at [facility]-Dr. Moore TONSILLECTOMY HX 03/2018 [facility]-Dr. James TUBAL LIGATION HX 01/13/2016 filshie clips Social History Tobacco Use Smoking status: Never Smokeless tobacco: Never Vaping Use Vaping status: Former Substances: Nicotine, Flavoring Substance Use Topics Alcohol use: Yes Comment: 1 nightout every 2 months- 2-3 drinks-None since Drug use: Never FAMILY HISTORY Problem Relation Age of Onset Cancer Mother thyroid, skin. - precancerous cervical cells on pap smear Hypertension Mother Thyroid Cancer Mother Migraines Mother Skin Cancer Mother Obesity Mother COPD Father Breast Cancer Maternal Grandmother Hypertension Maternal Grandmother Asthma Maternal Grandmother Anxiety disorder Maternal Grandmother Bipolar disorder Maternal Grandmother Obesity Maternal Grandmother Heart Maternal Grandfather Ischemic Heart Disease Maternal Grandfather stomach, ovarian. Heart Attack Paternal Grandfather Obesity Paternal Grandfather Ovarian cancer Other Great Grandmother ALLERGIES Allergen Reactions Compazine [Prochlor* Other: See Comments Akathisia with IV Compazine Reglan [Metoclopram* Other: See Comments Akathisia with IV Reglan Seasonal Allergies Unknown CURRENT MEDICATIONS: metFORMIN ER (GLUCOPHAGE XR) 500 mg 24 hr tablet Take 1 tablet by mouth two times a day with meals. topiramate (TOPAMAX) 25 mg tablet Take 1 tablet by mouth daily at bedtime. rimegepant (NURTEC ODT) 75 mg disintegrating tablet Take 1 dissolvable tablet by mouth at migraine onset. Take only 1 tablet per 24 hours. venlafaxine ER (EFFEXOR XR) 150 mg 24 hr capsule Take 1 capsule by mouth once daily. albuterol HFA (PROVENTIL HFA, VENTOLIN HFA) 90 mcg/actuation inhaler Inhale 2 Puffs as instructed every 4 hours as needed for wheezing/shortness of breath. as instructed chlorzoxazone (PARAFON FORTE DSC) 500 mg tablet Take 1 tablet by mouth three times a day as needed. Lactobacillus acidophilus (FLORAJEN ACIDOPHILUS) 20 billion cell capsule Take 1 capsule by mouth once daily. pantoprazole DR (PROTONIX) 40 mg tablet TAKE 1 TABLET BY MOUTH TWICE A DAY atogepant (QULIPTA) 60 mg tablet Take 1 tablet (60 mg) by mouth once daily. propranolol ER (INDERAL LA) 80 mg 24 hr capsule Take 1 capsule by mouth once daily. gabapentin (NEURONTIN) 600 mg tablet Take 1 tablet by mouth three times a day. ondansetron (ZOFRAN) 4 mg tablet Take 2 tablets by mouth every 8 hours as needed for nausea/vomiting. ergocalciferol 50,000 unit capsule (VITAMIN D2, DRISDOL) Take 1 capsule by mouth one time a week. cyclobenzaprine (FLEXERIL) 10 mg tablet Take 1 tablet by mouth three times a day as needed. traMADol (ULTRAM) 50 mg tablet Take 1 tablet by mouth every 6 hours as needed for pain. albuterol (PROVENTIL) 2.5 mg /3 mL (0.083 %) nebulizer solution Use 3 mL via nebulizer every 4 hours as needed. Use over 5-15minutes. Cholecalciferol, Vitamin D3, 125 mcg (5,000 unit) cap Take 1 capsule by mouth once daily. norethindrone (AYGESTIN) 5 mg tablet Take 1 tablet by mouth once daily for 10 days. diphenoxylate-atropine (LOMOTIL) 2.5-0.025 mg per tablet Take 1 tablet by mouth four times a day asneeded for diarrhea for up to 7 days. lisinopril (ZESTRIL) 5 mg tablet Take 1 tablet by mouth once daily. Hilda Orellana DO, FACC, FACOI Oilseed Meat Presser, [facility] Ambulatory Cardiology Oilseed Meat Presser, [facility] Cardiac Rehabilitation Oilseed Meat Presser, [facility] Cardiac Rehabilitation Oilseed Meat Presser, [facility] Oilseed Meat Presser, [facility] Ambulatory Cardiology Clinical Paving And Surfacing Labourer Profressor of Medicine, [facility] Staff Burr Bench Operator, [facility] and Christa Champion Department of Cardiovascular Medicine/Heart and Vascular [place], [facility] Please note: This note has been produced using speech recognition software and may contain errors related to that system including eve, punctuation, spelling, words, gender and phrases that may be inappropriate. documented in this encounterGeorgetown Behavioral Hospital12-30-2024 History of Present illness Narrative* Brandon Keith RT(R) - 05/14/2024 8:40 AM EST Radiology Service Progress Note PATIENT NAME: Maria Elena Garay DATE OF SERVICE: May 14, 2024 TIME: 9:10 AM PATIENT IDENTITY VERIFICATION COMPLETED USING TWO (2) IDENTIFIERS: Name and Date of confirmedby patient verbally. FALL SCREENING: Has the patient had 2 falls in the last year or 1 fall with injury or currently using an Ambulatory Assistive Device (Walker, Cane, Wheelchair, Crutches, etc.)? No PATIENT GENDER DATA: Female. status: : No status: NO. PATIENT RELEVANT IMPLANT DATA REVIEWED: Not Applicable PATIENT PRESENTS WITH AN IMPLANTABLE OR ATTACHED EARLY INTERVENTIONIST: No RADIOLOGY DEPARTMENT: Mammography PERIPHERAL IV DATA: Not applicable SIGNED BY: ALVARO Ortega)(M) May 14, 2024 9:10 AM documented in this encounterGeorgetown Behavioral Hospital12-30-2024 NoteHNO ID: [id number] Author: BRANDON KEITH RT (R) Service: Radiology Author Type: Technologist Type: Progress Notes Filed: 05/14/2024 09:10 Note Text: Radiology Service Progress Note PATIENT NAME: Maria Elena Garay DATE OF SERVICE: May 14, 2024 TIME: 9:10 AM PATIENT IDENTITY VERIFICATION COMPLETED USING TWO (2) IDENTIFIERS: Name and Date of confirmed by patient verbally. FALL SCREENING: Has the patient had 2 falls in the last year or 1 fall with injury or currently using an Ambulatory Assistive Device (Walker, Cane, Wheelchair, Crutches, etc.)? No PATIENT GENDER DATA: Female. status: : No status: NO. PATIENT RELEVANT IMPLANT DATA REVIEWED: Not Applicable PATIENT PRESENTS WITH AN IMPLANTABLE OR ATTACHED EARLY INTERVENTIONIST: No RADIOLOGY DEPARTMENT: Mammography PERIPHERAL IV DATA: Not applicable SIGNED BY: RT Shannon(Miguelito)(M) May 14, 2024 9:10 AMCleveland Clinic Marymount [id number] NoteShelby Memorial Hospital12-13-2024 History of Present illness Narrative* Mary Kumar APRN.UI ARCHITECT - 04/27/2024 11:54 AM EST Casting Machine Set Up Operator offered: Patient declines. Maria Elena Garay is a 33 year old female who presents for problem visit for left breast pain for 1 day. HPI: Maria Elena presents for left breast pain. It started yesterday - tender with a stabbing sensation if bumped. She also notes burning. No discharge. Ibuprofen, Tylenol, and Aleve does not provide relief. No redness, warmth, or swelling. No defined lump. Has follow up breast imaging scheduled for 05/14 in [place]. Calcifications in the left breast upperouter 11/16/2023. Benign oil cysts noted on right breast 11/16/23. BIRADS 3. 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 LMP: 03/28/2024 (Exact Date), IUD Age at Menarche: Age at First : Age at Menopause: Front Of House Manager History Comments: Sexual Activity: Yes; Male Contraception: Tubal Ligation PAST MEDICAL HISTORY Diagnosis Date Abnormal Pap smear of cervix ASCUS Acute appendicitis 04/2021 Allergic rhinitis, cause unspecified Anxiety 03/17/2010 buspar Arthritis Asthma Concussion 2008 Dysmenorrhea Excessive or frequent menstruation Heavy periods Iron deficiency anemia due to chronic blood loss 11/08/2023 Iron malabsorption 11/08/2023 Menorrhagia with regular cycle 11/08/2023 Mental disorder Migraine, unspecified, with intractable migraine, so stated, without mention of status migrainosus Migraine Ovarian cyst resolved Pain in joint, pelvic region and thigh 07/29/2014 Patellar disorder 09/01/2015 PID (acute pelvic inflammatory disease) 2013 PIH ( induced hypertension) 11/05/2015 Post depression 12/31/2015 Thyroid disease goiter Trauma PAST SURGICAL HISTORY Procedure Laterality Date APPENDECTOMY HX EGD W/O BRSH SPEC VARICIES INJ 06/16/2023 Dr Loco ESOPHAGOGASTRODUODENOSCOPY TRANSORAL DIAGNOSTIC 03/21/2013 EGD HERNIA REPAIR HX INSERTION OF IUD 03/09/2024 Mirena KNEE 1 OP 2 VIEWS KNEE ARTHROSCOPY/SURGERY 11/2011 left LAP SURG APPENDECTOMY 04/24/2021 LAPAROSCOPY DIAGNOSTIC 05/31/2019 at [facility]-Dr. Oscar LOUIS SURG CHOLECYSTECTOMY W/CHOLANGIOGRAPHY 02/14/2013 SALPINGECTOMY Bilateral 05/31/2019 B/L Salpingectomy at [facility]-Dr. Moore TONSILLECTOMY HX 03/2018 [facility]-Dr. James TUBAL LIGATION HX 01/13/2016 filshie clips FAMILY HISTORY Problem Relation Age of Onset Cancer Mother thyroid, skin. - precancerous cervical cells on pap smear Hypertension Mother Thyroid Cancer Mother Migraines Mother Skin Cancer Mother Obesity Mother COPD Father Breast Cancer Maternal Grandmother Hypertension Maternal Grandmother Asthma Maternal Grandmother Anxiety disorder Maternal Grandmother Bipolar disorder Maternal Grandmother Obesity Maternal Grandmother Heart Maternal Grandfather Ischemic Heart Disease Maternal Grandfather stomach, ovarian. Heart Attack Paternal Grandfather Obesity Paternal Grandfather Ovarian cancer Other Great Grandmother Social History Tobacco Use Smoking status: Never Smokeless tobacco: Never Vaping Use Vaping status: Former Substances: Nicotine, Flavoring Substance Use Topics Alcohol use: Yes Comment: 1 nightout every 2 months- 2-3 drinks-None since Drug use: Never Current Outpatient Medications Medication Sig metFORMIN ER (GLUCOPHAGE XR) 500 mg 24 hr tablet Take 1 tablet by mouth two times a day with meals. topiramate (TOPAMAX) 25 mg tablet Take 1 tablet by mouth daily at bedtime. rimegepant (NURTEC ODT) 75 mg disintegrating tablet Take 1 dissolvable tablet by mouth at migraine onset. Take only 1 tablet per 24 hours. venlafaxine ER (EFFEXOR XR) 150 mg 24 hr capsule Take 1 capsule by mouth once daily. albuterol HFA (PROVENTIL HFA, VENTOLIN HFA) 90 mcg/actuation inhaler Inhale 2 Puffs as instructed every 4 hours as needed for wheezing/shortness of breath. as instructed chlorzoxazone (PARAFON FORTE DSC) 500 mg tablet Take 1 tablet by mouth three times a day as needed. Lactobacillus acidophilus (FLORAJEN ACIDOPHILUS) 20 billion cell capsule Take 1 capsule by mouth once daily. pantoprazole DR (PROTONIX) 40 mg tablet TAKE 1 TABLET BY MOUTH TWICE A DAY diphenoxylate-atropine (LOMOTIL) 2.5-0.025 mg per tablet Take 1 tablet by mouth four times a day asneeded for diarrhea for up to 7 days. atogepant (QULIPTA) 60 mg tablet Take 1 tablet (60 mg) by mouth once daily. propranolol ER (INDERAL LA) 80 mg 24 hr capsule Take 1 capsule by mouth once daily. gabapentin (NEURONTIN) 600 mg tablet Take 1 tablet by mouth three times a day. ondansetron (ZOFRAN) 4 mg tablet Take 2 tablets by mouth every 8 hours as needed for nausea/vomiting. lisinopril (ZESTRIL) 5 mg tablet Take 1 tablet by mouth once daily. ergocalciferol 50,000 unit capsule (VITAMIN D2, DRISDOL) Take 1 capsule by mouth one time a week. cyclobenzaprine (FLEXERIL) 10 mg tablet Take 1 tablet by mouth three times a day as needed. traMADol (ULTRAM) 50 mg tablet Take 1 tablet by mouth every 6 hours as needed for pain. albuterol (PROVENTIL) 2.5 mg /3 mL (0.083 %) nebulizer solution Use 3 mL via nebulizer every 4 hours as needed. Use over 5-15minutes. Cholecalciferol, Vitamin D3, 125 mcg (5,000 unit) cap Take 1 capsule by mouth once daily. norethindrone (AYGESTIN) 5 mg tablet Take 1 tablet by mouth once daily for 10 days. No current facility-administered medications for this visit. Allergies As of Date: 04/27/2024 Allergen Noted Reaction COMPAZINE [PROCHLORPERAZINE EDISY*07/20/2018 Other: See Comments REGLAN [METOCLOPRAMIDE HCL] 07/20/2018 Other: See Comments SEASONAL ALLERGIES 10/15/2010 Unknown Fully Assessed 04/27/2024 REVIEW OF SYSTEMS Breast: No breast lumps, nipple d/c, overlying skin changes, redness or skin retraction. + breast pain to left breast Expanded ROS: N/A Allergies and current medication updated:Yes SENSITIVE EXAM: The sensitive examination was discussed with the Patient or Patient's Authorized Systems Admin. As applicable, any other physician, advance practice provider, medical student, or other health professional student that will be observing or involved in the sensitive examination for educational or training purposes was discussed with the Patient or Authorized Systems Admin. The Patient or Authorized Systems Admin has agreed to proceed with the sensitive examination. (Sensitive examination includes inspection and/or palpation of the breasts, pelvis, prostate and anorectal regions). EXAM: BP 118/70 Wt 222 lb (100.7kg) LMP 03/28/2024 GENERAL: pleasant, female in no apparent distress HEENT: Normocephalic, atraumatic, mucus membranes moist, and no lesions BREAST: soft, non tender, symmetric, no dominant mass, normal nipple-areolar complex, no lymphadenopathy, and no nipple discharge CHEST: Normal inspiratory effort NEURO: alert and oriented x3,exam grossly non-focal EXTREMITIES: normal ASSESSMENT AND PLAN: 1. Breast pain - ICD9: 611.71, ICD10: N64.4 - Recommend continuing to plan for diagnostic imaging on 05/14/24 - Wear well supportive bra. Alternative Ibuprofen and Tylenol. Warm compresses PRN - To notify with redness, swelling, warmth, or signs of infection. Mary Kumar APRN.CNP Medical Decision Making: Problems: Low: Acute, uncomplicated illness or injury Data: Unique test result(s) reviewed: 2 Risk: Low: Low risk from testing/treatment Medical Decision Making Level: 3 - Low documented in this encounterGeorgetown Behavioral Hospital12-04-2024 Instructions* Patient Instructions* Zoraida Rodarte APRN.CNP - 04/18/2024 1:46 PM EST AFTER VISIT CARE BOTOX INJECTION While these procedures can be extremely helpful as part of your headache treatment plan, they can irritate the muscles and tissues in your head, neck and shoulders. Proper follow-up care is important to avoid muscle spasms and temporary pain increase within the following 3-5 days after your clinic visit. Here are some tips to help decrease side-effects that may occur and maximize the effectiveness of your pain relief -HYDRATION Hydration is important to help nourish your muscles and tissues. Drink 60-80 oz of non caffeinated fluid at least for 3 days after your visit. -REST Rest will help avoid further irritation of muscle and tissues. Remember that you need to give your body time to adjust. NO strenuous activity for at least the first 24 hours after your visit. Gentle stretching, yoga, meditation or even swimming is OK and encouraged. -ICE/HEAT Since these procedures irritate muscles, there can be some swelling. Alternating ice and heat every3-5 times per day may help decrease this, while also optimizing pain relief Use cool gel packs for ice for 10 min. Use a warm moist towel covered with a dry towel on neck and shoulders. Alternate stretching each side of the neck. -STRETCHING Slow, gentle stretching of the neck and shoulders once every hour is helpful to avoid muscle spasms. -TREAT MUSCLE SPASMS If you are already prescribed a muscle relaxer such as baclofen, tizanidine or flexeril, use as directed. If you do not have one, talk to your provider to find out if this would be safe for you to use. Do not rub or massage the area for 48- 72 hours. -OTHER No hair dyes or permanents for 24 hours. If you are paying out of pocket for Botox go online to Botox Savings Program and see if you qualifyfor reimbursement. Return in 3 months for your next Botox Injection documented in this encounterGeorgetown Behavioral Hospital12-04-2024 History of Present illness Narrative* Zoraida Rodarte APRN.MARISELA - 04/18/2024 1:45 PM EST Images from the original note were not included. Headache Center Follow-up Visit Miscellaneous Patient Concerns: She has not been able to get Qulipta consistently with [facility]. There was some delay when she was inneed of an updated PA. It has been approved until 02/2025. She figured out that she was able to renew her RX online. She does find that it provides benefit when she is taking it consistently. She is having some tension through her L upper trap and neck. Impression: Chronic migraine without aura, intractable, without status migrainosus (primary encounter diagnosis) Maria Elena Garay has been previously approved for an Oral Calcitonin Gene- Related Peptide Receptor Antagonist (GEPANT) Atogepant for the treatment of preventative treatment. The patient has demonstrated the following: Provider attests patient has had a positive clinical response: Yes Patient will not use with another Oral Calcitonin Gene-Related Peptide Receptor Antagonist (GEPANT): Yes Patient's quality of life and ability to perform ADLs has improved: Yes The patient has tried and failed the following : We suggest the patient continue treatment with GEPANT Atogepant. The following preventative medications have been tried for three or more months without benefit: Anti-Convulsant Carbamazepine (Tegretol) Gabapentin (Neurontin) Topiramate (Topamax, Trokendi XL, Qudexy) Anti-Depressant and Antipsychotic Amitriptyline (Elavil) Bupropion (Wellbutrin) Citalopram (Celexa) Fluoxetine (Prozac) Sertraline (Zoloft) Venlafaxine (Effexor) Blood Pressure Lisinopril (Zestril) Propranolol (Inderal) GEPANTS Atogepant MABs Erenumab (Aimovig) Galcanezumab (Emgality) Eptinezumab (Vyepti) Botulinum Toxin Onabotulinum Toxin A (Botox) 6 treatments Supplements Magnesium The following abortive medications have been tried but require high frequency use which can lead toMedication Overuse Headache: Analgesic Butalbital/acetaminophen/caffeine (Fioricet) Diclofenac (Voltaren, Cataflam, Cambia) Hydrocodone/Acetaminophen (Vicodin, Cowpens) Ketorolac (Toradol) Meclofenamate (Meclomen) Meloxicam (Mobic) Oxycodone/Acetaminophen (Percocet) Tramadol (Ultram) Anti-Anxiety Buspirone (Buspar) Anti-Migraine Dihydroergotamine (DHE-45, Migranal) Eletriptan (Relpax) Naratriptan (Amerge) Rizatriptan (Maxalt) Sumatriptan (Imitrex, Sumavel) GEPANTS Ubrogepant (Ubrelvy) Rimegepant (Nurtec) Over the Counter Medications Acetaminophen (Tylenol) Acetaminophen/Aspirin/Caffeine (Excedrin, Goody s) Naproxen sodium (Aleve) Follow-Up Onabotulinum Toxin A (BotoxTM) for Migraine Indication: Chronic Intractable Migraine Referral Expiration: 10/24/2024 Prior to the initiation of the FIRST treatment with Onabotulinum Toxin A, the patient reported the following average headache frequency over the past 3 MONTHS: Number of moderate-severe migraine days/month: 30 (daily) Number of mild migraine days/month: 0 Number of headache free days/month: 0 (0 headache-free hours) After treatment with Onabotulinum Toxin A: Number of moderate-severe migraine days/month: 10 Number of mild migraine days/month: 10 Number of headache free days/month: 10 (240 headache-free hours) Patient reduction in overall migraine days: Yes Patient reduction in moderate-severe migraine days: Yes Patient reduction of headache hours by 100 hours or more: Yes (reduction of 240 hours) Individual has obtained clinical benefit deemed significant by individual or prescriber (Y/N): Yes Patient's quality of life and ability to perform ADLs has improved (Y/N): Yes Side effects: none Wearing off: Yes - 9 weeks after treatment The patient has been assessed for disorders which could contribute to breathing or swallowing difficulty, and there is no contraindication with PREEMPT Botox. There is no documented allergic reaction/hypersensitivity to any botulinum toxin and there is no active infection at proposed injection site. HEADACHE SCORES: 08/03/2022 11/02/2022 08/11/2023 Headache Questions ER visits since last office visit: 1 0 0 Hospital stays since last office visit 0 0 0 Limited ADLs in the last month: 12 20 15 Days missed from work or school in the last month: 5 4 5 Days headache pain free in the last month: 5 10 0 Days per month with ALL of the following symptoms - decreased productivity, light sensitivity and nausea: 18 20 Initial improvement of headache after botox injection at last visit: No change Minimally improved No change PRN medication usage in the last month: 18 5 5 Patient impression of improvement since last visit: No change No change Much worse 08/03/2022 11/02/2022 08/11/2023 HIT-6 HIT-6 65 (Severe impact) 75 (Severe impact) 70 (Severe impact) 05/03/2022 08/03/2022 11/02/2022 MYLA - 2/7 SCORES MYLA-2 Score 2 2 3 MYLA-7 Score 13 05/03/2022 08/03/2022 11/02/2022 Migraine Specific QOL - Higher scores indicate better HRQL Role Function-Restrictive Transformed Score (range: 0-100) 60 37.14 28.57 Role Function-Preventive Transformed Score (range: 0-100) 60 50 75 Emotional Function Transformed Score (range: 0-100) 60 20 20 11/02/2022 08/03/2022 05/03/2022 PHQ-9 Score 12 12 6 BP 128/76 Pulse 72 Ht 165.1 cm (5' 5) Wt 102 kg (224 lb 13.9 oz) LMP 03/09/2024 (Exact Date) BMI 37.42 kg/m Patient name: Maria Elena Garay : 1990 ALLERGIES Allergen Reactions Compazine [Prochlor* Other: See Comments Akathisia with IV Compazine Reglan [Metoclopram* Other: See Comments Akathisia with IV Reglan Seasonal Allergies Unknown UNIVERSAL PROTOCOL / SAFETY CHECKLIST Procedure: Onabotulinum toxin A for migraine Informed Consent Consent Obtained: Written Phelps Protocol A moment to CARE was completed SIGN IN Personnel directly involved with the procedure wore the appropriate PPE Special Equipment: N/A Patient/Surrogate Stated/Verified: Patient name, Date of , Relevant allergies and Intended procedure TIME OUT Intended patient and procedure match the source document(s) Consent documented and matches the intended procedure No relevant labs, photos, and/or imaging studies were applicable for review. No correct side/site applicable for marking and visibility. No medications required for procedure. No fire risk assessment and interventions applicable. No implant(s) inserted. SIGN OUT No specimen collected. No instruments, equipment or retained foreign bodies applicable. Post-procedure follow-up management communicated and Plan of Care Visit completed when applicable Written Consent Obtained: Written LOT #: [id number] Expiration Date: Month: 3 Year: 2026 Second vial: LOT #: [id number] Expiration Date: Month: 3 Year: 2026 Injection Sites Left (Units) Left (Sites) Right (Units) Right (Sites) TOTAL (Units) Obstetrics Nurse Practitioner 5 1 5 1 10 Procerus Units: 5 Sites: 1 5 Frontalis 10 2 10 2 20 Temporalis optional follow the pain 20 10 4 2 20 10 4 2 60 Occipitalis optional follow the pain 15 7.5 3 2 15 7.5 3 2 45 Cervical PSP 10 2 10 2 20 Trapezius optional follow the pain 15 5 3 1 15 5 3 1 40 Total Units used: 200 Total Units wasted: 0 Patient tolerated procedure well. Prior Therapies Duration of Use Dose Side effect Analgesic Butalbital/acetaminophen/caffeine (Fioricet) Diclofenac (Voltaren, Cataflam, Cambia) Hydrocodone/Acetaminophen (Vicodin, Cowpens) Ketorolac (Toradol) Meclofenamate (Meclomen) Meloxicam (Mobic) Oxycodone/Acetaminophen (Percocet) Tramadol (Ultram) Anti-Anxiety Buspirone (Buspar) Anti-Convulsant Carbamazepine (Tegretol) Gabapentin (Neurontin) Topiramate (Topamax, Trokendi XL, Qudexy) Anti-Depressant and Antipsychotic Amitriptyline (Elavil) Bupropion (Wellbutrin) Citalopram (Celexa) Fluoxetine (Prozac) Sertraline (Zoloft) Venlafaxine (Effexor) Antiemetics Promethazine Reglan (Metoclopramide) Anti-Migraine Dihydroergotamine (DHE-45, Migranal) Eletriptan (Relpax) Naratriptan (Amerge) Rizatriptan (Maxalt) Sumatriptan (Imitrex, Sumavel) Blood Pressure Lisinopril (Zestril) Propranolol (Inderal) MABs Erenumab (Aimovig) Galcanezumab (Emgality) Eptinezumab (Vyepti) GEPANTS Ubrogepant (Ubrelvy) Rimegepant (Nurtec) Atogepant Botulinum Toxin Onabotulinum Toxin A (Botox) 6 treatments Muscle Relaxer Chlorzoxazone (Parafon Forte) Cyclobenzaprine (Flexeril) Supplements Magnesium Other Medications Prednisone Over the Counter Medications Acetaminophen (Tylenol) Acetaminophen/Aspirin/Caffeine (Excedrin, Goody s) Naproxen sodium (Aleve) Zoraida Rodarte APRN.UI ARCHITECT documented in this [facility]24 [facility] History of Present illness Narrative* Itzel Sharma RT(R) - 04/06/2024 10:40 AM EST Radiology Service Progress Note DATE OF SERVICE: April 06, 2024 TIME: 11:08 AM PATIENT IDENTITY VERIFICATION COMPLETED USING TWO (2) STANDARD IDENTIFIERS: Name and Date of confirmed by patient verbally. FALL SCREENING: Has the patient had 2 falls in the last year or 1 fall with injury or currently using an Ambulatory Assistive Device (Walker, Cane, Wheelchair, Crutches, etc.)? No PATIENT GENDER DATA: Female. status: : No status: NO. PATIENT RELEVANT IMPLANT DATA REVIEWED: Yes PATIENT PRESENTS WITH AN IMPLANTABLE OR ATTACHED EARLY INTERVENTIONIST: No ALLERGIES: Reviewed and unchanged CONTRAST ALLERGY: NO. EXAM: MRI - CONTRAST TYPE: GROUP II PERIPHERAL IV DATA: Ambulatory: A peripheral IV was started in the Right upper extremity with a Angio cath: 22 gauge. RADIOLOGY DEPARTMENT: MR; Exam(s) Completed: Head: Routine Brain SIGNATURE: RT Gerhard(R) PATIENT NAME: Maria Elena Garay DATE: April 06, 2024 TIME: 11:08 AM documented [facility]Ge[facility]11-22-2024 [facility]11-[facility]24 Telephone encounter Note* Telephone Encounter - Sussy Quintana RN - 04/04/2024 8:49 AM EST Patient notified and voiced understanding of information and instructions below. Sussy Quintana RN [facility]11-20-2024 Miscellaneous Notes* Telephone Encounter - Sussy Quintana RN - 04/04/2024 8:49 AM EST Patient notified and voiced understanding of information and instructions below. Sussy Quintana RN * Telephone Encounter - Maggi Allen APRN.CNM - 04/04/2024 8:40 AM EST We can try an Aygestin taper. She will take Aygestin 3x day until bleeding stops. She will then take 2x day for 3 days and 1x for 3 days. Rx sent. I will also place an order for CBC to check iron level. It can be normal to continue bleeding for awhile after removal of IUD. Maggi Allen APRN.CNM * Telephone Encounter - Germania Mendoza RN - 04/04/2024 8:24 AM EST Patient had her IUD removed with AT on 03/28. She was prescribed Doxycycline and Agestin for 10 days. States she is still bleeding. Changing a regular tampon every 3 hours with some clots. Asking when she can expect to stop bleeding. She is already anemic. Has constant pelvic pressure that she rates as a 3. Three days ago the vaginal bleeding developed an abnormal odor. Denies fever or chills. Would you like patient seen in office for a swab to rule out infection? Germania Mendoza RN documented [facility]Ge[facility]11-20-2024 Telephone encounter Note * Telephone Encounter - Maggi Allen APRN.CNM - 04/04/2024 8:40 AM EST We can try an Aygestin taper. She will take Aygestin 3x day until bleeding stops. She will then take 2x day for 3 days and 1x for 3 days. Rx sent. I will also place an order for CBC to check iron level. It can be normal to continue bleeding for awhile after removal of IUD. Maggi Allen APRN.CNM [facility]11-20-2024 Telephone encounter Note* Telephone Encounter - Germania Mendoza RN - 04/04/2024 8:24 AM EST Patient had her IUD removed with AT on 03/28. She was prescribed Doxycycline and Agestin for 10 days. States she is still bleeding. Changing a regular tampon every 3 hours with some clots. Asking when she can expect to stop bleeding. She is already anemic. Has constant pelvic pressure that she rates as a 3. Three days ago the vaginal bleeding developed an abnormal odor. Denies fever or chills. Would you like patient seen in office for a swab to rule out infection? Germania Mendoza, RN [facility]11-13-2024 [facility]11-13-2024 History of Present illness Narrative* Danish Hernandez MD - 03/28/2024 10:09 AM EST Casting Machine Set Up Operator offered: Patient accepts, visit chaperoned by Queta Slade. Maria Elena presents for removal of IUD due to pain. UNIVERSAL PROTOCOL / SAFETY CHECKLIST Procedure to be Performed: endosee hysteroscopic removal of IUD Sign In: A Moment of CARE was completed. Personnel directly involved with the procedure wore the appropriate PPE (Personal Protective Equipment). Patient/Surrogate Stated/Verified: PATIENT VERIFIED(optional for EMERGENT procedures): Patient name, Date of , Relevant allergies, and The intended procedure Time Out Communication: Sign Out: SIGN OUT (optional for EMERGENT procedures): All instruments, equipment, possible retained foreign bodies accounted for. No instruments, equipment or retained foreign bodies applicable. Post-procedure follow-up management communicated and Plan of Care Visit completed when applicable. IUD PROCEDURE: no strings visible. IUD removed with endosee grasper under direct in a single atemp. Cx patulous requiring 150 cc fluidto visualvisualization IUD sideways with string not visible Contraception plans: tubal ligation ASSESSMENT/PLAN: successful hysteroscopic removal of Mirena with endosee Doxycycline for 7 days Aygestin if heavy mense Danish Hernandez MD documented in this encounterGe[facility]11-11-2024 NoteS[facility]11-11-2024 History of Present illness Narrative* Danish Hernandez MD - 03/26/2024 11:43 AM EST Maria Elena Garay is a 33 year old female who presents for problem visit persistent nell worse pelvic pain since Mirena placed for menstrual control.. 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 LMP: 03/09/2024 (Exact Date), IUD Age at Menarche: Age at First : Age at Menopause: Front Of House Manager History Comments: Sexual Activity: Yes; Male Contraception: Tubal Ligation PAST MEDICAL HISTORY Diagnosis Date Abnormal Pap smear of cervix ASCUS Acute appendicitis 04/2021 Allergic rhinitis, cause unspecified Anxiety 03/17/2010 buspar Arthritis Asthma Concussion 2007 Dysmenorrhea Excessive or frequent menstruation Heavy periods Iron deficiency anemia due to chronic blood loss 11/08/2023 Iron malabsorption 11/08/2023 Menorrhagia with regular cycle 11/08/2023 Mental disorder Migraine, unspecified, with intractable migraine, so stated, without mention of status migrainosus Migraine Ovarian cyst resolved Pain in joint, pelvic region and thigh 07/29/2014 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 Oscar [place] SURG CHOLECYSTECTOMY W/CHOLANGIOGRAPHY 02/14/2013 SALPINGECTOMY Bilateral 05/31/2019 B/L Salpingectomy at [facility]-Dr. Moore TONSILLECTOMY HX 03/2018 [facility]-Dr. James TUBAL LIGATION HX 01/13/2016 filshie clips FAMILY HISTORY Problem Relation Age of Onset Cancer Mother thyroid, skin. - precancerous cervical cells on pap smear Hypertension Mother Thyroid Cancer Mother Migraines Mother Skin Cancer Mother Obesity Mother COPD Father Breast Cancer Maternal Grandmother Hypertension Maternal Grandmother Asthma Maternal Grandmother Anxiety disorder Maternal Grandmother Bipolar disorder Maternal Grandmother Obesity Maternal Grandmother Heart Maternal Grandfather Ischemic Heart Disease Maternal Grandfather stomach, ovarian. Heart Attack Paternal Grandfather Obesity Paternal Grandfather Ovarian cancer Other Great Grandmother Social History Tobacco Use Smoking status: Never Smokeless tobacco: Never Vaping Use Vaping status: Former Substances: Nicotine, Flavoring Substance Use Topics Alcohol use: Yes Comment: 1 nightout every 2 months- 2-3 drinks-None since Drug use: Never Current Outpatient Medications Medication Sig levonorgestrel (MIRENA) 21 mcg/24hr (up to 8 yrs) 52 mg IUD 1 Each by INTRAUTERINE route as directed. metFORMIN ER (GLUCOPHAGE XR) 500 mg 24 hr tablet Take 1 tablet by mouth two times a day with meals. topiramate (TOPAMAX) 25 mg tablet Take 1 tablet by mouth daily at bedtime. rimegepant (NURTEC ODT) 75 mg disintegrating tablet Take 1 dissolvable tablet by mouth at migraine onset. Take only 1 tablet per 24 hours. venlafaxine ER (EFFEXOR XR) 150 mg 24 hr capsule Take 1 capsule by mouth once daily. albuterol HFA (PROVENTIL HFA, VENTOLIN HFA) 90 mcg/actuation inhaler Inhale 2 Puffs as instructed every 4 hours as needed for wheezing/shortness of breath. as instructed chlorzoxazone (PARAFON FORTE DSC) 500 mg tablet Take 1 tablet by mouth three times a day as needed. Lactobacillus acidophilus (FLORAJEN ACIDOPHILUS) 20 billion cell capsule Take 1 capsule by mouth once daily. pantoprazole DR (PROTONIX) 40 mg tablet TAKE 1 TABLET BY MOUTH TWICE A DAY atogepant (QULIPTA) 60 mg tablet Take 1 tablet (60 mg) by mouth once daily. propranolol ER (INDERAL LA) 80 mg 24 hr capsule Take 1 capsule by mouth once daily. gabapentin (NEURONTIN) 600 mg tablet Take 1 tablet by mouth three times a day. ondansetron (ZOFRAN) 4 mg tablet Take 2 tablets by mouth every 8 hours as needed for nausea/vomiting. ergocalciferol 50,000 unit capsule (VITAMIN D2, DRISDOL) Take 1 capsule by mouth one time a week. cyclobenzaprine (FLEXERIL) 10 mg tablet Take 1 tablet by mouth three times a day as needed. traMADol (ULTRAM) 50 mg tablet Take 1 tablet by mouth every 6 hours as needed for pain. albuterol (PROVENTIL) 2.5 mg /3 mL (0.083 %) nebulizer solution Use 3 mL via nebulizer every 4 hours as needed. Use over 5-15minutes. Cholecalciferol, Vitamin D3, 125 mcg (5,000 unit) cap Take 1 capsule by mouth once daily. diphenoxylate-atropine (LOMOTIL) 2.5-0.025 mg per tablet Take 1 tablet by mouth four times a day asneeded for diarrhea for up to 7 days. lisinopril (ZESTRIL) 5 mg tablet Take 1 tablet by mouth once daily. No current facility-administered medications for this visit. Allergies As of Date: 03/26/2024 Allergen Noted Reaction COMPAZINE [PROCHLORPERAZINE EDISY*07/20/2018 Other: See Comments REGLAN [METOCLOPRAMIDE HCL] 07/20/2018 Other: See Comments SEASONAL ALLERGIES 10/15/2010 Unknown Fully Assessed 03/26/2024 REVIEW OF SYSTEMS Abdomen: No bloating, early satiety, indigestion, or increased flatulence. No abdominal pain, nausea, vomiting, diarrhea, or constipation. Bladder: No dysuria, gross hematuria, urinary frequency, urinary urgency, or incontinence. Breast: No breast lumps, nipple d/c, overlying skin changes, redness or skin retraction. Expanded ROS: N/A Allergies and current medication updated:Yes SENSITIVE EXAM: The sensitive examination was discussed with the Patient or Patient's Authorized Systems Admin. As applicable, any other physician, advance practice provider, medical student, or other health professional student that will be observing or involved in the sensitive examination for educational or training purposes was discussed with the Patient or Authorized Systems Admin. The Patient or Authorized Systems Admin has agreed to proceed with the sensitive examination. (Sensitive examination includes inspection and/or palpation of the breasts, pelvis, prostate and anorectal regions). EXAM: BP 128/80 Wt 230 lb 6.4 oz (104.5kg) LMP 03/09/2024 GENERAL: pleasant, female in mild distress ABDOMEN: soft, non-tender, and no masses ASSESSMENT AND PLAN: Recommend IUD removal/patient ambivalent Schedule accordingly Assessment & Plan Danish Hernandez MD [facility]Ge[facility]11-07-2024 NoteO ID: [id number] Author: KAYCE ELLIOTT MD Service: ? Author Type: Physician Type: Progress Notes Filed: 03/22/2024 09:26 Note Text: The patient presents for requested ultrasound. Full report available in the Imaging tab in [employer]. Kayce Elliott, [facility]11-07-2024 History of Present illness Narrative* Kayce Elliott MD - 03/22/2024 9:18 AM EST The patient presents for requested ultrasound. Full report available in the Imaging tab in [employer]. Kayce Elliott MD documented in this encounterGe[facility]11-07-2024 [facility]11-07-[facility]24 History of Present illness Narrative* Emi Hall MD - 03/22/2024 9:09 AM EST Maria Elena Garay is a 33 year old female who presents for problem visit. HPI: Patient presents after pelvic US. She reports stable pelvic pain. 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 LMP: 03/09/2024 (Exact Date), IUD Age at Menarche: Age at First : Age at Menopause: Front Of House Manager History Comments: Sexual Activity: Yes; Male Contraception: Tubal Ligation PAST MEDICAL HISTORY Diagnosis Date Abnormal Pap smear of cervix ASCUS Acute appendicitis 04/2021 Allergic rhinitis, cause unspecified Anxiety 03/17/2010 buspar Arthritis Asthma Concussion 2007 Dysmenorrhea Excessive or frequent menstruation Heavy periods Iron deficiency anemia due to chronic blood loss 11/08/2023 Iron malabsorption 11/08/2023 Menorrhagia with regular cycle 11/08/2023 Mental disorder Migraine, unspecified, with intractable migraine, so stated, without mention of status migrainosus Migraine Ovarian cyst resolved Pain in joint, pelvic region and thigh 07/29/2014 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 Moore LAPSergei SURG CHOLECYSTECTOMY W/CHOLANGIOGRAPHY 02/14/2013 SALPINGECTOMY Bilateral 05/31/2019 B/L Salpingectomy at [facility]-Dr. Moore TONSILLECTOMY HX 03/2018 [facility]-Dr. James TUBAL LIGATION HX 01/13/2016 filshie clips FAMILY HISTORY Problem Relation Age of Onset Cancer Mother thyroid, skin. - precancerous cervical cells on pap smear Hypertension Mother Thyroid Cancer Mother Migraines Mother Skin Cancer Mother Obesity Mother COPD Father Breast Cancer Maternal Grandmother Hypertension Maternal Grandmother Asthma Maternal Grandmother Anxiety disorder Maternal Grandmother Bipolar disorder Maternal Grandmother Obesity Maternal Grandmother Heart Maternal Grandfather Ischemic Heart Disease Maternal Grandfather stomach, ovarian. Heart Attack Paternal Grandfather Obesity Paternal Grandfather Ovarian cancer Other Great Grandmother Social History Tobacco Use Smoking status: Never Smokeless tobacco: Never Vaping Use Vaping status: Former Substances: Nicotine, Flavoring Substance Use Topics Alcohol use: Yes Comment: 1 nightout every 2 months- 2-3 drinks-None since Drug use: Never Current Outpatient Medications Medication Sig levonorgestrel (MIRENA) 21 mcg/24hr (up to 8 yrs) 52 mg IUD 1 Each by INTRAUTERINE route as directed. metFORMIN ER (GLUCOPHAGE XR) 500 mg 24 hr tablet Take 1 tablet by mouth two times a day with meals. topiramate (TOPAMAX) 25 mg tablet Take 1 tablet by mouth daily at bedtime. rimegepant (NURTEC ODT) 75 mg disintegrating tablet Take 1 dissolvable tablet by mouth at migraine onset. Take only 1 tablet per 24 hours. venlafaxine ER (EFFEXOR XR) 150 mg 24 hr capsule Take 1 capsule by mouth once daily. albuterol HFA (PROVENTIL HFA, VENTOLIN HFA) 90 mcg/actuation inhaler Inhale 2 Puffs as instructed every 4 hours as needed for wheezing/shortness of breath. as instructed chlorzoxazone (PARAFON FORTE DSC) 500 mg tablet Take 1 tablet by mouth three times a day as needed. Lactobacillus acidophilus (FLORAJEN ACIDOPHILUS) 20 billion cell capsule Take 1 capsule by mouth once daily. pantoprazole DR (PROTONIX) 40 mg tablet TAKE 1 TABLET BY MOUTH TWICE A DAY diphenoxylate-atropine (LOMOTIL) 2.5-0.025 mg per tablet Take 1 tablet by mouth four times a day asneeded for diarrhea for up to 7 days. atogepant (QULIPTA) 60 mg tablet Take 1 tablet (60 mg) by mouth once daily. propranolol ER (INDERAL LA) 80 mg 24 hr capsule Take 1 capsule by mouth once daily. gabapentin (NEURONTIN) 600 mg tablet Take 1 tablet by mouth three times a day. ondansetron (ZOFRAN) 4 mg tablet Take 2 tablets by mouth every 8 hours as needed for nausea/vomiting. lisinopril (ZESTRIL) 5 mg tablet Take 1 tablet by mouth once daily. ergocalciferol 50,000 unit capsule (VITAMIN D2, DRISDOL) Take 1 capsule by mouth one time a week. cyclobenzaprine (FLEXERIL) 10 mg tablet Take 1 tablet by mouth three times a day as needed. traMADol (ULTRAM) 50 mg tablet Take 1 tablet by mouth every 6 hours as needed for pain. albuterol (PROVENTIL) 2.5 mg /3 mL (0.083 %) nebulizer solution Use 3 mL via nebulizer every 4 hours as needed. Use over 5-15minutes. Cholecalciferol, Vitamin D3, 125 mcg (5,000 unit) cap Take 1 capsule by mouth once daily. No current facility-administered medications for this visit. Allergies As of Date: 03/22/2024 Allergen Noted Reaction COMPAZINE [PROCHLORPERAZINE EDISY*07/20/2018 Other: See Comments REGLAN [METOCLOPRAMIDE HCL] 07/20/2018 Other: See Comments SEASONAL ALLERGIES 10/15/2010 Unknown Fully Assessed 03/21/2024 Allergies and current medication updated:Yes SENSITIVE EXAM: Sensitive exam not performed. EXAM: LMP 03/09/2024 GENERAL: pleasant, female in no apparent distress ABDOMEN: soft, minimally tender, no rebound ASSESSMENT AND PLAN: Assessment & Plan Pelvic pain in female Prelim US read shows IUD in correct location. Plan to update patient when final read is available. Discussed R/B/A of IUD removal vs continuing IUD. Patient wishes to continue IUD. Medical Decision Making: Problems: Low: Acute, uncomplicated illness or injury Data: Unique test result(s) reviewed: 1 Risk: Low: Low risk from testing/treatment Medical Decision Making Level: 3 - Low Emi Hall MD documented in [facility] encounterGe[facility]11-06-2024 Telephone encounter Note * Telephone Encounter - Mary Kumar APRN.CNP - 03/21/2024 12:41 PM EST Filed. Mary Kumar APRN.CNP [facility]11-06-2024 Miscellaneous Notes* Telephone Encounter - Mary Kumar APRN.CNP - 03/21/2024 12:41 PM EST Filed. Mary Kumar APRN.CNP * Telephone Encounter - Radhika Humphrey MA - 03/21/2024 12:35 PM EST Patient seen in our office today, orders pended. She will be back in our office tomorrow so she will schedule the follow up at that time. Orders pended, please review and sign. Radhika Humphrey MA * Telephone Encounter - Kayla Mallory - 03/13/2024 10:37 AM EDT Patient calling in because she has a diagnostic mammogram done in November, she was told she would needanother one in 6 months for a follow up. Please place order and call patient when completed. Kayla Mallory March 13, 2024 10:38 AM documented in this encounterGe[facility] Hospital11-06-2024 Note* Addendum Note - Radhika Humphrey MA - 03/21/2024 12:37 PM ESTAddended by: RADHIKA HUMPHREY on: 03/21/2024 12:37 PM Modules accepted: Orders [facility]11-06-2024 Miscellaneous Notes* Addendum Note - Radhika Humphrey MA - 03/21/2024 12:37 PM ESTAddended by: RADHIKA HUMPHREY on: 03/21/2024 12:37 PM Modules accepted: Orders documented in this encounterGe[facility] Hospital11-06-2024 Telephone encounter Note * Telephone Encounter - Radhika Humphrey MA - 03/21/2024 12:35 PM EST Patient seen in our office today, orders pended. She will be back in our office tomorrow so she will schedule the follow up at that time. Orders pended, please review and sign. Radhika Humphrey MA [facility]11-06-2024 [facility]11-06-[facility] History of Present illness Narrative* Danish Hernandez MD - 03/21/2024 11:39 AM EST Casting Machine Set Up Operator offered: Patient accepts, visit chaperoned by Radhika Humphrey MA. Maria Elena Garay is a 33 year old female who presents for problem visit ER f/u for pelvic pain 2 weeks placement of Mirena on 03/09 with subsequent cramping that seems to be getting worse. .Unable to palpate string though ultrasound says the IUD is in an appropriate position HPI: as above 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 LMP: 03/09/2024 (Exact Date), IUD Age at Menarche: Age at First : Age at Menopause: Front Of House Manager History Comments: Sexual Activity: Yes; Male Contraception: Tubal Ligation PAST MEDICAL HISTORY Diagnosis Date Abnormal Pap smear of cervix ASCUS Acute appendicitis 04/2021 Allergic rhinitis, cause unspecified Anxiety 03/17/2010 buspar Arthritis Asthma Concussion 2007 Dysmenorrhea Excessive or frequent menstruation Heavy periods Iron deficiency anemia due to chronic blood loss 11/08/2023 Iron malabsorption 11/08/2023 Menorrhagia with regular cycle 11/08/2023 Mental disorder Migraine, unspecified, with intractable migraine, so stated, without mention of status migrainosus Migraine Ovarian cyst resolved Pain in joint, pelvic region and thigh 07/29/2014 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 Oscar [place]IS SURG CHOLECYSTECTOMY W/CHOLANGIOGRAPHY 02/14/2013 SALPINGECTOMY Bilateral 05/31/2019 B/L Salpingectomy at [facility]-Dr. Moore TONSILLECTOMY HX 03/2018 [facility]-Dr. James TUBAL LIGATION HX 01/13/2016 filshie clips FAMILY HISTORY Problem Relation Age of Onset Cancer Mother thyroid, skin. - precancerous cervical cells on pap smear Hypertension Mother Thyroid Cancer Mother Migraines Mother Skin Cancer Mother Obesity Mother COPD Father Breast Cancer Maternal Grandmother Hypertension Maternal Grandmother Asthma Maternal Grandmother Anxiety disorder Maternal Grandmother Bipolar disorder Maternal Grandmother Obesity Maternal Grandmother Heart Maternal Grandfather Ischemic Heart Disease Maternal Grandfather stomach, ovarian. Heart Attack Paternal Grandfather Obesity Paternal Grandfather Ovarian cancer Other Great Grandmother Social History Tobacco Use Smoking status: Never Smokeless tobacco: Never Vaping Use Vaping status: Former Substances: Nicotine, Flavoring Substance Use Topics Alcohol use: Yes Comment: 1 nightout every 2 months- 2-3 drinks-None since Drug use: Never Current Outpatient Medications Medication Sig levonorgestrel (MIRENA) 21 mcg/24hr (up to 8 yrs) 52 mg IUD 1 Each by INTRAUTERINE route as directed. metFORMIN ER (GLUCOPHAGE XR) 500 mg 24 hr tablet Take 1 tablet by mouth two times a day with meals. topiramate (TOPAMAX) 25 mg tablet Take 1 tablet by mouth daily at bedtime. rimegepant (NURTEC ODT) 75 mg disintegrating tablet Take 1 dissolvable tablet by mouth at migraine onset. Take only 1 tablet per 24 hours. venlafaxine ER (EFFEXOR XR) 150 mg 24 hr capsule Take 1 capsule by mouth once daily. albuterol HFA (PROVENTIL HFA, VENTOLIN HFA) 90 mcg/actuation inhaler Inhale 2 Puffs as instructed every 4 hours as needed for wheezing/shortness of breath. as instructed chlorzoxazone (PARAFON FORTE DSC) 500 mg tablet Take 1 tablet by mouth three times a day as needed. Lactobacillus acidophilus (FLORAJEN ACIDOPHILUS) 20 billion cell capsule Take 1 capsule by mouth once daily. pantoprazole DR (PROTONIX) 40 mg tablet TAKE 1 TABLET BY MOUTH TWICE A DAY atogepant (QULIPTA) 60 mg tablet Take 1 tablet (60 mg) by mouth once daily. propranolol ER (INDERAL LA) 80 mg 24 hr capsule Take 1 capsule by mouth once daily. gabapentin (NEURONTIN) 600 mg tablet Take 1 tablet by mouth three times a day. ondansetron (ZOFRAN) 4 mg tablet Take 2 tablets by mouth every 8 hours as needed for nausea/vomiting. ergocalciferol 50,000 unit capsule (VITAMIN D2, DRISDOL) Take 1 capsule by mouth one time a week. cyclobenzaprine (FLEXERIL) 10 mg tablet Take 1 tablet by mouth three times a day as needed. traMADol (ULTRAM) 50 mg tablet Take 1 tablet by mouth every 6 hours as needed for pain. albuterol (PROVENTIL) 2.5 mg /3 mL (0.083 %) nebulizer solution Use 3 mL via nebulizer every 4 hours as needed. Use over 5-15minutes. Cholecalciferol, Vitamin D3, 125 mcg (5,000 unit) cap Take 1 capsule by mouth once daily. diphenoxylate-atropine (LOMOTIL) 2.5-0.025 mg per tablet Take 1 tablet by mouth four times a day asneeded for diarrhea for up to 7 days. lisinopril (ZESTRIL) 5 mg tablet Take 1 tablet by mouth once daily. No current facility-administered medications for this visit. Allergies As of Date: 03/21/2024 Allergen Noted Reaction COMPAZINE [PROCHLORPERAZINE EDISY*07/20/2018 Other: See Comments REGLAN [METOCLOPRAMIDE HCL] 07/20/2018 Other: See Comments SEASONAL ALLERGIES 10/15/2010 Unknown Fully Assessed 03/21/2024 REVIEW OF SYSTEMS Abdomen: No bloating, early satiety, indigestion, or increased flatulence. No abdominal pain, nausea, vomiting, diarrhea, or constipation. Bladder: No dysuria, gross hematuria, urinary frequency, urinary urgency, or incontinence. Breast: No breast lumps, nipple d/c, overlying skin changes, redness or skin retraction. Expanded ROS: N/A Allergies and current medication updated:Yes SENSITIVE EXAM: The sensitive examination was discussed with the Patient or Patient's Authorized Systems Admin. As applicable, any other physician, advance practice provider, medical student, or other health professional student that will be observing or involved in the sensitive examination for educational or training purposes was discussed with the Patient or Authorized Systems Admin. The Patient or Authorized Systems Admin has agreed to proceed with the sensitive examination. (Sensitive examination includes inspection and/or palpation of the breasts, pelvis, prostate and anorectal regions). EXAM: BP 120/74 Wt 229 lb 12.8 oz (104.2kg) LMP 03/09/2024 GENERAL: pleasant, female in no apparent distress, in mild distress ABDOMEN: soft, no masses, Mild tenderness in Generalized, rebound Present, and guarding Present PELVIC: external genitalia normal, normal Bartholin's glands, urethra, Dozier's glands, no vulvar lesions, no cervical lesions, good vaginal support, physiologic discharge present, normal appearing perineal body and perianal region BIMANUAL: uterus normal size, shape and consistency, uterus top normal size, no adnexal masses, non-tender, no cervical motion tenderness, and unable to visualize string ASSESSMENT AND PLAN: Assessment & Plan Pelvic pain in female unable to visualize strings ? subtle rebound, sono tomorrow reevaluate tomorrow [id number] Danish Hernandez MD [facility] Telephone encounter Note * Telephone Encounter - Germania Mendoza RN - 03/19/2024 2:06 PM EST IUD inserted on 03/09/24 [facility]-04-[facility] Miscellaneous Notes* Telephone Encounter - Germania Mendoza RN - 03/19/2024 2:06 PM EST IUD inserted on 03/09/24 [facility] Telephone encounter Note * Telephone Encounter - Kayla Mallory - 03/13/2024 10:37 AM EDT Patient calling in because she has a diagnostic mammogram done in November, she was told she would needanother one in 6 months for a follow up. Please place order and call patient when completed. Kayla Mallory March 13, 2024 10:38 AM [facility]10-25-2024 Note* Addendum Note - Mary Kumar APRN.CNP - 03/09/2024 11:18 AM EDTAddended by: MARY KUMAR on: 03/09/2024 11:18 AM Modules accepted: Orders [facility]10-25-2024 Miscellaneous Notes* Addendum Note - Mary Kumar APRN.CNP - 03/09/2024 11:18 AM EDTAddended by: MARY KUMAR on: 03/09/2024 11:18 AM Modules accepted: Orders [facility]Ge[facility]10-25-2024 Instructions* Patient Instructions* Galina Villatoro LPN - 03/09/2024 10:37 AM EDT POST IUD INSTRUCTIONS You may have irregular bleeding during the first 3 months of use. You may have mild-severe cramping for the next 48 hours. You may use over the counter medication (Motrin, Tylenol) as needed. Your IUD must be removed or replaced based on the following table: IUD Type Removed or replaced within: Bell 3 years Kyleena 5 years Mirena 8 years Liletta 8 years Paragard 10 years Call the office for signs/symptoms of infection such as severe cramping, fever, or unusual bleeding. Check for string placement as instructed by your doctor. If you have any additional questions, please contact the office. [facility] History of Present illness Narrative* Mary Kumar APRN.CNP - 03/09/2024 10:36 AM EDT Maria Elena is a 33 year old Female who presents today for an endometrial biopsy for abnormal uterine bleeding. test: n/a, tubal UNIVERSAL PROTOCOL / SAFETY CHECKLIST Procedure to be Performed: Endometrial Biopsy Sign In: A Moment of CARE was completed. Personnel directly involved with the procedure wore the appropriate PPE (Personal Protective Equipment). Patient/Surrogate Stated/Verified: PATIENT VERIFIED(optional for EMERGENT procedures): Patient name, Date of , Relevant allergies, and The intended procedure Time Out Communication: Intended patient and procedure match the source documents. Consent documented and matches the intended procedure. Sign Out: SIGN OUT (optional for EMERGENT procedures): All specimen containers correctly labeled. All instruments, equipment, possible retained foreign bodies accounted for. Post-procedure follow-up management communicated and Plan of Care Visit completed when applicable. Mary Kumar APRN.MARISELA PROCEDURE: EXTERNAL GENITALIA: Normal in appearance without lesions VAGINA: Normal in appearance without lesions BIOPSY: Speculum placed into the vagina with excellent visualization of the cervix. Cervix cleaned with betadine. Uterus sounded to 9 cm. Pipelle inserted into the uterus without difficulty and endometrial biopsy obtained. Specimen labeled and sent to pathology. Hemostasis achieved. Procedure Summary: Patient tolerated procedure well. ASSESSMENT: abnormal uterine bleeding PLAN: Specimens labeled and sent to Pathology. Post-procedure instructions reviewed and written material given to the patient. Mary Kumar APRN.MARISELA Maria Elena presents today for IUD insertion for . Patient's last menstrual period was 02/10/2024 (exact date). GC/chlamydia: Not done: no risk factors and/or patient declines screening test: n/a: tubal Side effects including irregular bleeding were discussed with the patient. The patient understands that it should be removed in 8 years or sooner if the patient desires a . IUD source: office provided [facility]: [phone] IUD lot #: [id number] Exp date: UNIVERSAL PROTOCOL / SAFETY CHECKLIST Procedure to be Performed: Mirena Insertion and Endometrial Biopsy Sign In: A Moment of CARE was completed. Personnel directly involved with the procedure wore the appropriate PPE (Personal Protective Equipment). Patient/Surrogate Stated/Verified: PATIENT VERIFIED(optional for EMERGENT procedures): Patient name, Date of , Relevant allergies, and The intended procedure Time Out Communication: Intended patient and procedure match the source documents. Consent documented and matches the intended procedure. Sign Out: SIGN OUT (optional for EMERGENT procedures): All instruments, equipment, possible retained foreign bodies accounted for. Post-procedure follow-up management communicated and Plan of Care Visit completed when applicable. The cervix was prepped with betadine. The uterus sounded to 9 cm and the uterus is Anteverted.. Using sterile technique, the Mirena IUD was inserted without difficulty and the string was cut to 2-3 cm from the external os of the cervix. Patient tolerated procedure well. PLAN: Patient was advised to observe for signs and symptoms of infection including but not limited to fever, malodorous vaginal discharge and/or pain. The patient was told to check the string monthlyfor accurate placement. Bleeding expectations were reviewed. Follow up in one month. It should be noted patient reported chest pain and shortness of breath in the middle of the night. It has resolved. Discussed that if this were to happen again, I recommend going to ER. Mary Kumar APRN.UI ARCHITECT documented [facility]10-22-2024 Telephone encounter Note * Telephone Encounter - Anh Mckeon - 03/06/2024 10:26 AM EDT Patient last una on 01/25/24. [facility] Miscellaneous Notes* Telephone Encounter - Anh Mckeon - 03/06/2024 10:26 AM EDT Patient last una on 01/25/24. [facility]Ge[facility]10-16-2024 Telephone encounter Note * Telephone Encounter - Kelly Montanez - 02/29/2024 4:35 PM EDT Ambulatory Pharmacy Prior Authorization Note Provider Intervention Required?: No- Pharmacy completed on your behalf. Rx Plan: Other: [facility]: Qulipta 60MG tablets Cover My Meds Rene: [id number] Determination: Approved Prior Authorization/Case #: [id number] Prior Authorization Expiration: 02/27/2025 Time to PA Submission in CMM: 15 min Time to PA Determination in CMM: Same day Additional Information: PLEASE NOTE: Pt will need follow up office visit to review/document efficacy and tolerability of treatment before prior auth expiration. Please ensure a future follow up appt is scheduled with your patient. This will ensure no interruption in patient's ability to obtain medic ation refills. Prescriptions will now be processed through [facility] for determination of next steps. For questions relating to this submission, please contact [facility] at [phone] [facility]-16-[facility] Miscellaneous Notes* Telephone Encounter - Kelly Montanez - 02/29/2024 4:35 PM EDT Ambulatory Pharmacy Prior Authorization Note Provider Intervention Required?: No- Pharmacy completed on your behalf. Rx Plan: Other: [facility]: Qulipta 60MG tablets Cover My Meds Rene: [id number] Determination: Approved Prior Authorization/Case #: [id number] Prior Authorization Expiration: 02/27/2025 Time to PA Submission in CMM: 15 min Time to PA Determination in CMM: Same day Additional Information: PLEASE NOTE: Pt will need follow up office visit to review/document efficacy and tolerability of treatment before prior auth expiration. Please ensure a future follow up appt is scheduled with your patient. This will ensure no interruption in patient's ability to obtain medic ation refills. Prescriptions will now be processed through [facility] for determination of next steps. For questions relating to this submission, please contact [facility] at [phone] documented in this encounterGe[facility]10-11-2024 History of Present illness Narrative* Chio Ash APRN.MARISELA - 02/24/2024 8:00 AM EDT Images from the original note were not included. Patient Summary: Maria Elena Garay is a 33 year old female with obesity who presents for an initial evaluation of overweight/obesity to treat and prevent co-morbidities and is interested in combination of [place] pharmacological. Motivation for seeking treatment for the disease of overweight/obesity : self confidence, prediabetes Goal weight: 170 lb Lowest recall weight: 136 lb (age 18) Highest non- recall weight: 250 lb Patient identified barriers to weight loss: Time, fatigue, migraines, family, difficulty with healthy food texture, taste. Weight History: She reports a family history of obesity and early adulthood (after ) weight gain. She states her weight gain is related to the following factors, including weight retention, weight promoting medications - gabapentin, reduced physical activity and consumption of unhealthy foods. Difficulty losing weight? Y - Last Wt 02/24/24 : 105.7 kg (233 lb) 5% weight loss = 221 lbs, 10% weight loss = 210 lbs WEIGHT GRAPH: Diet/Nutrition overview: Awake - 0540 B - 08 C4 SF energy drink and SKIP or package of mini chocolate chip muffinsWE eggs and alejo and sometimes plain bagel with butter S - sometimes grazes on small bag of chips or Skittles L - 1215 left overs or if orders out at work - burgers or pizza or WE - SKIP S - none D - 7 pm pasta casseroles with protein or pizza or cube steak/mashed potato. Sometimes veg - corn, potato, green peas and beans, carrots. Mt Dew 4/week Does not eat any raw vegetables. Eats bananas, applesauce, canned pear/peach S - sometimes ice cream or Skittles or brownies Fluids: water, C4 SF energy drink, regular Mt Dew 4/week, occasional regular Coke Bedtime - 2229 Quality of diet: 24hr recall suggests unhealthy diet. Characterization of diet:Structured, unhealthy snacking, excessive cravings, evening snacking, increased consumption of sugar sweetened beverages, and skip meals. Rn Review of impaired eating habits:boredom and stress Eating Disorders: no Cravings: sugar and salty Sleep Duration: 6-7 hours. 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 Menorrhagia with regular cycle 11/08/2023 Mental disorder Migraine, unspecified, with intractable migraine, so stated, without mention of status migrainosus Migraine Ovarian cyst resolved Pain in joint, pelvic region and thigh 07/29/2014 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 Moore LAPS SURG CHOLECYSTECTOMY W/CHOLANGIOGRAPHY 02/14/2013 SALPINGECTOMY Bilateral 05/31/2019 B/L Salpingectomy at [facility]-Dr. Moore TONSILLECTOMY HX 03/2018 [facility]-Dr. James TUBAL LIGATION HX 01/13/2016 filshie clips FAMILY HISTORY Problem Relation Age of Onset Cancer Mother thyroid, skin. - precancerous cervical cells on pap smear Hypertension Mother Thyroid Cancer Mother Migraines Mother Skin Cancer Mother COPD Father Breast Cancer Maternal Grandmother Hypertension Maternal Grandmother Asthma Maternal Grandmother Anxiety disorder Maternal Grandmother Bipolar disorder Maternal Grandmother Heart Maternal Grandfather Ischemic Heart Disease Maternal Grandfather stomach, ovarian. Heart Attack Paternal Grandfather Ovarian cancer Other Great Grandmother Social History Tobacco Use Smoking status: Never Smokeless tobacco: Never Vaping Use Vaping status: Former Substances: Nicotine, Flavoring Substance Use Topics Alcohol use: Yes Comment: 1 nightout every 2 months- 2-3 drinks-None since Drug use: Never AOM Medications: Pt reported no prior medications. Weight Promoting Medications: Gabapentn, propranolal ER - migraine/palpitations, venlafaxine Diet/weight loss History: Past weight loss attempts? Thrive (weight loss shakes, patch), sometimes skip breakfast. Exercise: Regular exercise: no Strength/resistance exercise:no Barriers to regular exercise? Yes, family three children, (LT) knee pain, injury, time,work. 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 Contraception: tubal sterilization Obesity ROS/ FHx GEN: Fatigue:yes CV: h/o palpitations/cardiac arrhythmia, Chest pain: intermittent, palpitations SVT, atrial tachycardia 01/2024 - has cardiology follow-up 05/29/2024 (per EHR) HTN: yes PULM: Asthma:yes GI: GERD:Yes ; Gallstones:removed 2013 cholecystectomy; Fatty liver disease:yes Pancreatitis: no MSK: Joint Pain:yes : Nephrolithiasis: no Symptoms of PCOS: no NEURO: Migraines/SCHMITZ: yes ; H/o seizures: no Glaucoma:no; Cataracts no Symptoms of or History of pseudotumor cerebri:no Family or personal History of MEN2 or Medullary thyroid cancer: yes, patient reported mom had thyroid cancer, removal, 40's - does not know what kind of thyroid cancer but will ask PE BP 130/84 Ht 165 cm (5' 4.96) Wt 105.7 kg (233 lb) LMP 02/10/2024 (Exact Date) BMI 38.82 kg/m Waist Circumference: 40.25 in Neck Circumference: 15.75 in GENERAL: Female in NAD. General adiposity. SKIN: acanthosis nigricans no, Skin tags: yes Hirsutism: no HEENT: PERRL, No supraclavicular adiposity. No dorsal adiposity. RESPIRATORY: CBTA CARDIAC: RRR ABDOMEN: Protuberant ; EXTREMITIES: peripheral edema: no Results: reviewed with the patient Appointment on 01/19/2024 Component Date Value Ref Range Status WBC 01/19/2024 9.68 3.70 - 11.00 k/uL Final RBC 01/19/2024 5.31 (H) 3.90 - 5.20 m/uL Final Hemoglobin 01/19/2024 13.7 11.5 - 15.5 g/dL Final Hematocrit 01/19/2024 43.8 36.0 - 46.0 % Final MCV 01/19/2024 82.5 80.0 - 100.0 fL Final MCH 01/19/2024 25.8 (L) 26.0 - 34.0 pg Final MCHC 01/19/2024 31.3 30.5 - 36.0 g/dL Final RDW-CV 01/19/2024 14.5 11.5 - 15.0 % Final Platelet Count 01/19/2024 474 (H) 150 - 400 k/uL Final MPV 01/19/2024 9.6 9.0 - 12.7 fL Final Neutrophils % 01/19/2024 62.1 % Final Abs Neut 01/19/2024 6.01 1.45 - 7.50 k/uL Final Lymphocytes % 01/19/2024 24.7 % Final Abs Lymph 01/19/2024 2.39 1.00 - 4.00 k/uL Final Monocytes % 01/19/2024 6.9 % Final Abs [place] 01/19/2024 0.67 <0.87 k/uL Final Eosinophils % 01/19/2024 5.4 % Final Abs Eosin 01/19/2024 0.52 (H) <0.46 k/uL Final Basophils % 01/19/2024 0.7 % Final Abs Baso 01/19/2024 0.07 <0.11 k/uL Final Immature Granulocytes % 01/19/2024 0.2 % Final Abs Immature Gran 01/19/2024 <0.03 <0.10 k/uL Final NRBC 01/19/2024 0.0 /100 WBC Final Absolute nRBC 01/19/2024 <0.01 <0.01 k/uL Final Diff Type 01/19/2024 Auto Final Iron 01/19/2024 37 (L) 41 - 186 ug/dL Final TIBC 01/19/2024 329 232 - 386 ug/dL Final Transferrin Saturation 01/19/2024 11.2 (L) 15.0 - 57.0 % Final Ferritin 01/19/2024 85.4 14.7 - 205.1 ng/mL Final Appointment on 01/02/2024 Component Date Value Ref Range Status Iron 01/02/2024 72 41 - 186 ug/dL Final TIBC 01/02/2024 305 232 - 386 ug/dL Final Transferrin Saturation 01/02/2024 23.6 15.0 - 57.0 % Final WBC 01/02/2024 9.65 3.70 - 11.00 k/uL Final RBC 01/02/2024 4.87 3.90 - 5.20 m/uL Final Hemoglobin 01/02/2024 12.6 11.5 - 15.5 g/dL Final Hematocrit 01/02/2024 39.3 36.0 - 46.0 % Final MCV 01/02/2024 80.7 80.0 - 100.0 fL Final MCH 01/02/2024 25.9 (L) 26.0 - 34.0 pg Final MCHC 01/02/2024 32.1 30.5 - 36.0 g/dL Final RDW-CV 01/02/2024 14.6 11.5 - 15.0 % Final Platelet Count 01/02/2024 409 (H) 150 - 400 k/uL Final MPV 01/02/2024 9.8 9.0 - 12.7 fL Final Absolute nRBC 01/02/2024 <0.01 <0.01 k/uL Final Results Only on 11/25/2023 Component Date Value Ref Range Status Ventricular Rate 11/25/2023 87 BPM Final Atrial Rate 11/25/2023 87 BPM Final P-R Interval 11/25/2023 130 ms Final QRS Duration 11/25/2023 86 ms Final QT Interval 11/25/2023 358 ms Final QTC Calculation (Bazett) 11/25/2023 430 ms Final Calculated P [place] 11/25/2023 4 degrees Final Calculated R [place] 11/25/2023 7 degrees Final Calculated T [place] 11/25/2023 7 degrees Final Appointment on 11/25/2023 Component Date Value Ref Range Status WBC 11/25/2023 10.06 3.70 - 11.00 k/uL Final RBC 11/25/2023 4.90 3.90 - 5.20 m/uL Final Hemoglobin 11/25/2023 12.8 11.5 - 15.5 g/dL Final Hematocrit 11/25/2023 40.6 36.0 - 46.0 % Final MCV 11/25/2023 82.9 80.0 - 100.0 fL Final MCH 11/25/2023 26.1 26.0 - 34.0 pg Final MCHC 11/25/2023 31.5 30.5 - 36.0 g/dL Final RDW-CV 11/25/2023 13.6 11.5 - 15.0 % Final Platelet Count 11/25/2023 362 150 - 400 k/uL Final MPV 11/25/2023 10.2 9.0 - 12.7 fL Final Neutrophils % 11/25/2023 66.0 % Final Abs Neut 11/25/2023 6.64 1.45 - 7.50 k/uL Final Lymphocytes % 11/25/2023 19.2 % Final Abs Lymph 11/25/2023 1.93 1.00 - 4.00 k/uL Final Monocytes % 11/25/2023 9.3 % Final Abs [place] 11/25/2023 0.94 (H) <0.87 k/uL Final Eosinophils % 11/25/2023 4.1 % Final Abs Eosin 11/25/2023 0.41 <0.46 k/uL Final Basophils % 11/25/2023 0.6 % Final Abs Baso 11/25/2023 0.06 <0.11 k/uL Final Immature Granulocytes % 11/25/2023 0.8 % Final Abs Immature Gran 11/25/2023 0.08 <0.10 k/uL Final NRBC 11/25/2023 0.0 /100 WBC Final Absolute nRBC 11/25/2023 <0.01 <0.01 k/uL Final Diff Type 11/25/2023 Auto Final Hemoglobin A1C 11/25/2023 5.8 (H) 4.3 - 5.6 % Final Estimated Average Glucose 11/25/2023 120 mg/dL Final Glucose 11/25/2023 91 74 - 99 mg/dL Final BUN 11/25/2023 8 7 - 21 mg/dL Final Creatinine 11/25/2023 0.67 0.58 - 0.96 mg/dL Final Sodium 11/25/2023 138 136 - 144 mmol/L Final Potassium 11/25/2023 4.4 3.7 - 5.1 mmol/L Final Chloride 11/25/2023 102 98 - 107 mmol/L Final CO2 11/25/2023 24 22 - 30 mmol/L Final Anion Gap 11/25/2023 12 8 - 15 mmol/L Final Calcium, Total 11/25/2023 9.9 8.5 - 10.2 mg/dL Final Estimated Glomerular Filtration Ra* 11/25/2023 119 >=60 mL/min/1.73m Final TSH 11/25/2023 2.050 0.270 - 4.200 mIU/L Final Magnesium 11/25/2023 2.1 1.7 - 2.3 mg/dL Final Office Visit on 11/25/2023 Component Date Value Ref Range Status Ventricular Rate 11/25/2023 87 BPM Preliminary Atrial Rate 11/25/2023 87 BPM Preliminary P-R Interval 11/25/2023 130 ms Preliminary QRS Duration 11/25/2023 86 ms Preliminary QT Interval 11/25/2023 358 ms Preliminary QTC Calculation (Bazett) 11/25/2023 430 ms Preliminary Calculated P [place] 11/25/2023 4 degrees Preliminary Calculated R [place] 11/25/2023 7 degrees Preliminary Calculated T [place] 11/25/2023 7 degrees Preliminary Phentermine - HTN, well-controlled with lisinopril SVT, atrial tachycardia 01/2024 - has cardiology follow-up 05/29/2024 - not offered by pt but (per EHR) Topirmate 100 mg daily caused brain fog Bupropion for depression - stopped with (per EHR) Naltrexone - on Tramadol prn Impression: Maria Elena Garay is a 33 year old Female with Class II obesity (Body mass index is 38.82 kg/m .) who has early adulthood obesity with gradual weight gain despite several weight loss attempts. The causes of her obesity are multifactorial, biological, psychological and social and environmental. Specific factors include a genetic component related to a strong family of obesity, exposure to weight gain promoting medication(s) , increased consumption of high calorie/process foods, suboptimal physical activity, poor sleep quality, and post weight retention. She has few weight-related medical comorbidities which increase her cardiovascular mortality risk. There are additional metabolic obesity complications including pre-diabetes, hypertension, obstructive sleep apnea, and vitamin D deficiency. Other medical conditions as above. Regarding her lifestyle, as above, she has several behavioral contributors; her physical activity is non-existent. Overall, it is clear that her quality of life is moderately compromised by her weight. It is likelya combination of weight loss therapies will be needed. She appears motivated today. ASSESSMENT/PLAN: 1. Hypertension, essential - ICD9: 401.9, ICD10: I10 (primary diagnosis) - lisinopril - [facility] 2. BLAISE (obstructive sleep apnea) - ICD9: 327.23, ICD10: G47.33 - not using CPAP 3. Gastroesophageal reflux disease, unspecified whether esophagitis present - ICD9: 530.81, ICD10: K21.9 - pantoprazole - [facility] 4. Prediabetes - ICD9: 790.29, ICD10: R73.03 - METFORMIN ER 500 MG TABLET,EXTENDED RELEASE 24 HR - [facility] 5. Palpitations - ICD9: 785.1, ICD10: R00.2 - propranolol ER SVT, atrial tachycardia 01/2024 - has cardiology follow-up 05/29/2024 6. Intractable chronic 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 - ICD9: 346.71, ICD10: G43.719 - Qulipta and Nurtec - TOPIRAMATE 25 MG TABLET 7 Menorrhagia with regular cycle - ICD9: 626.2, ICD10: N92.0 - Discussed options for management including Mirena which may improve or worsen migraine but has the least amount of risk/ablation/hysterectomy. She is agreeable to proceeding with IUD insertion. - currently receiving iron infusions - INSERT INTRAUTERINE DEVICE - Mirena 8. Iron deficiency anemia due to chronic blood loss - ICD9: 280.0, ICD10: D50.0 - currently receiving iron infusions due to HMB 9. Asthma, unspecified asthma severity, unspecified whether complicated, unspecified whether persistent - ICD9: 493.90, ICD10: J45.909 - albuterol inhaler as needed 10. Anxiety with depression - ICD9: 300.4, ICD10: F41.8 - venlafaxine - VITAMIN D 25 HYDROXY 11. Vitamin D deficiency - ICD9: 268.9, ICD10: E55.9 - weekly supplement - VITAMIN D 25 HYDROXY 12. General counseling and advice for contraceptive management - ICD9: V25.09, ICD10: Z30.09 - INSERT INTRAUTERINE DEVICE - Mirena - MISOPROSTOL 200 MCG TABLET 13. Screening for diabetes mellitus - ICD9: V77.1, ICD10: Z13.1 - INSULIN ASSAY BLOOD - HEMOGLOBIN A1C 14. Screening cholesterol level - ICD9: V77.91, ICD10: Z13.220 - LIPID PANEL BASIC 15. Class 3 severe obesity with serious comorbidity and body mass index (BMI) of 40.0 to 44.9 in adult, unspecified obesity type (HCC) - ICD9: 278.01, V85.41, ICD10: E66.813, E66.01, Z68.41 Plan: -- Based on the severity and resistance of the obesity/overweight with co- morbidities, I believe a combination of behavioral and pharmacological intervention or surgical is the best and most appropriate extermination supervisor therapeutic option. The benefits of long-term weight loss with metabolic surgery vs weight loss with dietary changes discussed including differences in hunger and satiety hormones and metabolism. Surgical options briefly discussed. She is interested and consult to BMI placed. - VITAMIN D 25 HYDROXY - INSULIN ASSAY BLOOD - HEMOGLOBIN A1C - LIPID PANEL BASIC - [facility] - METFORMIN ER 500 MG TABLET,EXTENDED RELEASE 24 HR Agreeable to begin Metformin 500 mg with dinner daily x 1 week. If tolerating will increase to 2 tablets with dinner daily. We discussed common side effects of this medication including nausea, changes in bowel habits, abdominal discomfort, and flatulence. Discussed taking it with food and complication of lactic acidosis and signs/symptoms and medication handout given. Further instructed that if she experiences malaise,muscle aches, difficulty breathing, or severe abdominal pain to seek immediate medical attention. - TOPIRAMATE 25 MG TABLET at bedtime Topiramate. Discussed risks/benefits with the patient. Patient aware that this is an off-label use of the medication. Will notify me if experiencing any adverse effects. Denies history of kidney stones, seizures or glaucoma. has hx of migraines and history of poor sleep. Advised not to mix with alcohol. Educated on increased risk for drowsiness, dizziness, fatigue, kidney stones, osteoporosis andincreased eye pressure. Patient of childbearing age. Discussed the risk of defects with topiramate and the need for double control methods as well as regular tests. Contraception: tubal sterilization -- We discussed several strategies to track food intake and increase mindfulness around eating while will decrease calorie intake. She was counseled on the following: Eating primarily whole foods. Limit carbs, especially processed carbs. Do not drink your calories 30 grams of protein for breakfast decreases your hunger during the day by up to 40 % Premier Protein or generic 30 gm protein 1 gm sugar - Make sure to have protein at every meal. Walk for 15 minutes immediately a meal. -- Encouraged the patient to improve her physical activity. Although cardiovascular exercise is most beneficial for weight loss initially, we discussed healthy muscle from a combination of resistancetraining and cardiovascular exercise is the best extermination supervisor plan. An overall goal of 150-200 minutesper week of exercise has been effective in weight loss and maintenance. -- Reviewed that monitoring weight daily and food intake can have a positive impact on overall weight loss and maintenance of weight loss. Activity tracking can be used to stay on target for exercisehowever should not be used to reward oneself She understands that there can be limitations of pharmacotherapy due to contraindications, side effects and cost. Patient was told to contact her insurance company to see what AOMs and supervised behavioral medical appointments are currently covered. Patient understands she will have more success when following a healthy lifestyle. We reviewed continued use of online tracking of daily weights, food journal and if desired physical activity. We reviewed that during management she is to report any concerning side effects of any pharmacotherapy she is placed on. She understands that she will need routine follow up in the office. Prior to any virtual visits in the future she will need to check her Blood pressure, weight, and pulse. Prescription instructions reviewed with patient as applicable. Potential red flag symptoms discussed with the patient. Reviewed appropriate action plan to take ifred flag symptoms occur. Patient agreeable to treatment plan. -- follow-up visit in 4 months for management of above interventions Chio Ash CNP Advanced Education from the Obesity Medicine Association I spent a total of 116 minutes on the date of the service which included preparing to see the patient, [id number] patient care, completing clinical documentation, obtaining and/or reviewing separately obtained history, performing a medically appropriate examination, counseling and educating the pa tient/family/caregiver, and ordering medications, tests, or procedures. [facility]* Patient Instructions* Chio Ash APRN.CNP - 02/24/2024 7:34 AM EDT Images from the original note were not included. Weight Management: You have taken the initiative to become a healthier version of yourself and to decrease the risks that come with the diagnosis of obesity or being overweight. We are happy to help you along this journey but know this is a lifetime commitment to yourself. Losing just 3-10 % of your body weight can decrease your risks of many other serious diseases like diabetes, heart disease, osteoarthritis, hypertension, cancer and so many others. During this time you will have triumphs, setbacks and plateaus-your body will fight against you but we are here to give you the tools and the resources to continue to reach your goals. We recommend during this time that you track your weight daily or at least five times per week as well as tracking your nutrition. You may track your activity but do not use hitting your fitness goals as a reward system as this can derail your success. We recommend weekly physical activity of 150-200 min/week-although physical exercise, this will be especially important for weight maintenance. Exe rcise can have many other benefits including improving insulin resistance, improving balance, bone health, improving mental health and cardiovascular health. Do not feel overwhelmed - we will discussthis more at your visits. Our time will be limited with each visit but we will try to touch on factors that are important to you and to your overall goals. We will try to set a goal at the end of each visit and then decide onwhat we want to accomplish with your upcoming visits. On your After Visit Summary (AVS), we will provide you with information that may be useful during this journey so please remember to read the information given. Check your AVS a few days after your appointment because we may have added more information specifically for you. Remember that if you are placed on medications, they are tools that can help you succeed but you must put in the work. Your nutrition will be the main factor. There are medications that work well forsome and not for others- so it may take time to find the right combination for your body's needs. Please remember that factors such as other health co-morbidities one might have, as well as insurance coverage, will play a factor in determining which medications you can take. Most of the newer medications that are all the craze ,injectables, may not be covered or will only be covered if you fail months of oral medications or have Type 2 diabetes so please be patient with the process. It would be beneficial for you to determine what your insurance covers as far as Anti-Obesity Medications (AOMs), Nutritional Counseling, behavioral intervention and weight loss surgery. Please call your health insurance prior to your first appointment and write down coverage for each of those therapies. Most importantly, remember that ultimately our goal is to help you get to a healthier weight which will decrease your overall health risks. We will work together as a team and try to reach your personalized goals as well. Follow-up appointments Please arrive to follow-up visits a minimum of 15 minutes prior to your appointment. Follow-up weight management visits can be virtual. You will need to report a current blood pressure, heart rate (pulse) and weight at the beginning of each virtual appointment so you will need to have a reliable BP cuff, either wrist or upper arm. If you need to reschedule your appointment time or switch from an in-office visit to a virtual visit or vice versa, you need to call our office as we have designated appointment slots. This should not be done on [facility] as you will not be scheduled appropriately and will need to be rescheduled. It is very important for you to call our office at [phone] if you need to RESCHEDULE your weight management appointment. DO NOT work around the system and reschedule on [facility] because you are taking a Women's Health appointment. In the future, we will be cancelling those appointments. We appreciate that you have entrusted us with your health and know that we are committed to this process with you. Sincerely, Brenda Moore MD, TANGELA JORGE & Chio Ash CNP Advanced Education from the Obesity Medicine Association Obesity Obesity is a disease that affects nearly one-third of the adult [place] population (approximately 60 million). The number of overweight and obese Americans has continued to increase since 1959, a trend that is not slowing down. Today, 64.5 percent of adult Americans (about 127 million) are categorized as being overweight or obese. Each year, obesity causes at least 300,000 excess deaths in the [place] and healthcare costs of [place] adults with obesity amount to approximately $100 billion. (AOA) Obesity is a complex, multi-factorial chronic disease involving: Environmental (social and cultural) The tendency toward obesity is a result of our environment: lack of physical activity along with high-calorie, low-cost foods. Home, work, school, and even the community can inhibit a healthy lifestyle. Genetic (Hereditary plays a large role in determining how susceptible people are to overweight and obesity). Genes also influence how the body stearns calories for energy and stores fat. Physiologic, metabolic, behavioral (eating too many calories while not getting enough exercise) andpsychological components. It is the second leading cause of preventable in the [place] Behavioral changes brought on by economic development, modernization and urbanization have been linked to therise in global obesity. Calculating BMI Body Mass Index (BMI) is a measurement tool used to determine excess body weight. Overweight is defined as a BMI of 25 or more, obesity is 30 or more, and severe obesity is 40 or more. You can visit www.nhlbi.nih.gov to estimate your BMI. Obesity Related Health Conditions The morbidity and mortality risk from being overweight is proportional to its degree. Individuals with morbid obesity, therefore, have the highest risk for developing numerous illnesses that often reduce mobility and quality of life due to their excess weight. In particular, type 2 diabetes, gallbladder disease and osteoarthritis have been found to increase concurrently with higher BMI. Prematuredeath, a 20-year shorter life span, has also been found in individuals with morbid obesity. All of the systems that make the body function are affected by morbid obesity. Type 2 diabetes Gallbladder disease and gallstones Liver disease Osteoarthritis, a disease in which the joints deteriorate. This is possibly the result of excess weight on the joints. Gout, another disease affecting the joints Pulmonary (breathing) problems, including sleep apnea in which a person can stop breathing for a short time during sleep Reproductive problems in women, including menstrual irregularities and infertility Gastroesophageal reflux/heartburn Hypertension Heart Disease Depression Psychological disorders/social impairments Urinary Stress Incontinence Obesity is also linked to higher rates of certain types of cancer. Obese men are more likely than non-obese men to from cancer of the colon, rectum, or prostate. Obese women are more likely than non-obese women to from cancer of the gallbladder, breast, uterus, cervix, or ovaries [email or web address] ducation - Eat primarily whole foods. Limit carbs, especially processed carbs. Eat - Meat, vegetables and fruits with skin on if possible, eggs, cheese. - Do not drink your calories - 30 grams of protein for your first meal of the day decreases your hunger during the day by up to 40 %. Options include: Premier Protein or generic 30 gm protein 1 gm sugar or 5 eggs or 2-3 eggs andsome unbreaded meat and/or cheese. No fruit, vegetables, bread, grain, yogurt, Smoothies, etc. - Make sure to have protein at every meal. - Walk for 15 minutes immediately after meal. METFORMIN Dosing -- Begin Metformin 500 ER mg with dinner daily x 1 week. If you are experiencing any GI side effects, do not increase dose for 1-4 weeks. If tolerating, you can increase to 2 tablets with dinner daily or you can take 1 twice a day with meals. Taking the medication with food will help. -- if you experience any GI upset (Nausea, diarrhea, bloating, gas) you can go back to 1 tablet or hold the medication until it resolves. Once you are tolerating the medication you can try increasingit again. -- we can discuss increasing the dose further at your follow up visit. -- Metformin can interfere with the absorption of B12 in your food, please add a B12 1,000-2,400 mcg supplement and I suggest having it checked every 1-2 years Using Metformin for weight loss: Metformin helps to lower blood glucose levels by reducing the amount of glucose produced and released by the liver, and by increasing insulin sensitivity. It has now been proven to prevent or delay diabetes. Metformin and Type 2 Diabetes Prevention Diabetes Spectrum (diabetesjournals.org) Large cohort studies have shown weight loss benefits associated with metformin therapy. Emerging evidence suggests that metformin-associated weight loss is due to modulation of hypothalamic appetite-regulatory centers, alteration in the gut microbiome, and reversal of consequences of aging. Metformin is also being explored in the management of obesity s sequelae such as hepatic steatosis, obstructive sleep apnea and osteoarthritis. Effectiveness of metformin on weight loss in non-diabetic individuals with obesity - PubMed (nih.gov) Is metformin a wonder drug? - [facility] Common side effects of this medication include nausea, changes in bowel habits, abdominal discomfort, and flatulence. Taking the medication with food will help. Side effects also typically get betterwith time. Rarely, a severe side effect called lactic acidosis can occur. If you experience malaise, muscle aches, difficulty breathing, or severe abdominal pain, please seek immediate medical attention. When to Take Extended-Release Metformin Metformin HCL is metabolized slowly, over 24 hours, which helps reduce GI side effects. Metformin extended-release is often a good option for people who experience adverse GI symptoms with standard metformin. Metformin HCL should be taken at night, with food. Katelyn Arango MD, clinical director of adult diabetes at [facility], explains why timing metformin HCL with the evening meal is so important. In normal physiology, a person's liver often makes glucose overnight, she says. So, it's not uncommon for a person to go to bed with a good blood glucose level and wake up with a higher one because their liver has been releasing sugar [all night]. Metformin turns off or slows down this process, so it can be more effective at night in treating fasting high blood sugar. [email or web address]/article/[email or web address]-[email or web address] pcihvy-fo-sjtgg/ Metformin: Patient drug information Warning Rarely, metformin may cause too much lactic acid in the blood (lactic acidosis). The risk is higherin people who have kidney problems, liver problems, heart failure, use alcohol, or take other drugslike topiramate. The risk is also higher in people who are 65 or older and in people who are havingsurgery, an exam or test with contrast, or other procedures. If lactic acidosis happens, it can lead to other health problems and can be deadly. Kidney tests may be done while taking this drug. Do not take this drug if you have a very bad infection, low oxygen, or a lot of fluid loss (dehydration). Call your doctor right away if you have signs of too much lactic acid in the blood (lactic acidosis) like fast breathing, fast or slow heartbeat, a heartbeat that does not feel normal, very bad upsetstomach or throwing up, feeling very sleepy, shortness of breath, feeling very tired or weak, very bad dizziness, feeling cold, or muscle pain or cramps. What is this drug used for? It is used to lower blood sugar in patients with high blood sugar (diabetes), treatment for PCOS, What do I need to tell my doctor BEFORE I take this drug? If you are allergic to this drug; any part of this drug; or any other drugs, foods, or substances. Tell your doctor about the allergy and what signs you had. If you have any of these health problems: Acidic blood problem, kidney disease, or liver disease. If you have had a recent heart attack or stroke. If you are not able to eat or drink like normal, including before certain procedures or surgery. If you are having an exam or test with contrast or have had one within the past 48 hours, talk withyour doctor. This is not a list of all drugs or health problems that interact with this drug. Tell your doctor and pharmacist about all of your drugs (prescription or OTC, natural products, vitamins) and health problems. You must check to make sure that it is safe for you to take this drug with all of your drugs and health problems. Do not start, stop, or change the dose of any drug withoutchecking with your doctor. What are some things I need to know or do while I take this drug? All products: Tell all of your health care providers that you take this drug. This includes your doctors, nurses,pharmacists, and dentists. Talk with your doctor before you drink alcohol. Do not drive if your blood sugar has been low. There is a greater chance of you having a crash. Check your blood sugar as you have been told by your doctor. Have blood work checked as you have been told by the doctor. Talk with the doctor. It may be harder to control blood sugar during times of stress such as fever, infection, injury, orsurgery. A change in physical activity, exercise, or diet may also affect blood sugar. Follow the diet and workout plan that your doctor told you about. If diarrhea happens or you are throwing up, call your doctor. You will need to drink more fluids tokeep from losing too much fluid. Be careful in hot weather or while being active. Drink lots of fluids to stop fluid loss. Long-term treatment with metformin may lead to low vitamin B-12 levels. If you have ever had low vitamin B-12 levels, talk with your doctor. If you are 65 or older, use this drug with care. You could have more side effects. There is a chance of in people of childbearing age who have not been ovulating. If you want to avoid , use control while taking this drug. Tell your doctor if you are , plan on getting , or are breast- feeding. You will need to talk about the benefits and risks to you and the baby. Extended-release tablets: You may see something that looks like the tablet in your stool. This is normal and not a cause for concern. If you have questions, talk with your doctor. What are some side effects that I need to call my doctor about right away? WARNING/CAUTION: Even though it may be rare, some people may have very bad and sometimes deadly side effects when taking a drug. Tell your doctor or get medical help right away if you have any of thefollowing signs or symptoms that may be related to a very bad side effect: Signs of an allergic reaction, like rash; hives; itching; red, swollen, blistered, or peeling skin with or without fever; wheezing; tightness in the chest or throat; trouble breathing, swallowing, ortalking; unusual hoarseness; or swelling of the mouth, face, lips, tongue, or throat. It is common to have stomach problems like upset stomach, throwing up, or diarrhea when you start taking this drug. If you have stomach problems later during treatment, call your doctor right away. This may be a sign of an acid health problem in the blood (lactic acidosis). Low blood sugar can happen. The chance may be raised when this drug is used with other drugs for diabetes. Signs may be dizziness, headache, feeling sleepy or weak, shaking, fast heartbeat, confusion, hunger, or sweating. Call your doctor right away if you have any of these signs. Follow what you have been told to do for low blood sugar. This may include taking glucose tablets, liquid glucose, or some fruit juices. What are some other side effects of this drug? All drugs may cause side effects. However, many people have no side effects or only have minor sideeffects. Call your doctor or get medical help if any of these side effects or any other side effects bother you or do not go away: Stomach pain or heartburn. Gas. Diarrhea, upset stomach, or throwing up. Feeling tired or weak. Headache. These are not all of the side effects that may occur. If you have questions about side effects, call your doctor. Call your doctor for medical advice about side effects. You may report side effects to your national health agency. How is this drug best taken? Use this drug as ordered by your doctor. Read all information given to you. Follow all instructionsclosely. All products: Take with meals. Keep taking this drug as you have been told by your doctor or other health care provider, even if you feel well. Extended-release tablets: Take with the evening meal if taking once daily. Swallow whole. Do not chew, break, or crush. If you have trouble swallowing, talk with your doctor. TOPIRAMATE -- Take 25mg at bedtime -- We may increase the dose to 75mg a few weeks later if there is no change with 50mg, Typically the maximum medication dose would be 150mg daily but rarely would we need to titrate medication dose that high. -- The exact mechanism of topiramate on energy balance regulation is not clearly understood. Topiramate affects body mass index, fasting cyocwid-qg-woczbvv ratio, and serum leptin and cortisol levels. It has shown to improve hypothalamic insulin and leptin signaling and action and reduce obesity inmice. These changes may be rene factors in weight loss due to topiramate. If at any point you are feeling the effects of the medication you can stay at that dose or if you experience side effects you can decrease it to the previous dose. -- Please see the handout to review the potential side effects and to explain this further -- Please let me know if you experience any changes in your vision, worsening depression or mood problems, or an increase in suicidal thoughts or behaviors. --This medication should NOT be combined with alcohol. Risks of drinking alcohol while taking this medication include mental and psychological side effects, including confusion, dizziness, drowsiness, and depression. -- There is an increased risk for oral clefts when topiramate is used in the first trimester of . -- There is a possible decrease in contraceptive efficacy when using estrogen- containing control with topiramate, please use a back up form of control such as condoms and monitor for throughout treatment. -- If you decide that you would like to get or if you have any of these side effects please let me know and we can safely discontinue the medication. - If you are on loop diuretic or thiazide diuretic we will want to monitor your potassium level, especially if you have a history of low potassium. - It is important to taper off of this medication when we finished with treatment, typically decreasing the dose 25 mg a week. Stopping Topiramate abruptly can cause irritability, anxiety and difficulty concentrating. Topiramate (toe pyre a mate) What are the common names? Topamax Why is this medication prescribed? Topiramate is an anti-epileptic medications which has been approved by the FDA for patients 10 years of age or older for treatment of seizures. However, topiramate also has other uses such as the treatment of migraines. It also causes decrease in appetite and weight loss. The mechanism of weight loss is thought to be through inhibition of mitochondrial enzymes involved in energy expenditure and metabolism. Topiramate may work by helping you feel less hungry, less driven to eat, more satisfied with less food. What special precautions should I follow? Before having topiramate prescribed, tell your doctor and pharmacist: If you have allergies to any component of topiramate If you are , plan to become , are breast-feeding, or if you become while taking topiramate What are the warnings and precautions for this medication? Immediately discontinue the medicine and seek medical help if you have severe cognitive/neuropsychiatric adverse symptoms or eye symptoms. Cognitive/neuropsychiatric adverse events: symptoms may include confusion, psychomotor slowing, difficulty with concentration/attention, difficulty with memory, speech or language problems, particularily word-finding difficulties, somnolence or fatigue Acute myopia and secondary angle closure glaucoma, usually within 1 month of starting treatment: symptoms may include blurred vision, redness and/or pain in the eye Oligohydrosis (decrease sweating) and hyperthermia (elevation in body temperature) Increase in suicidal behavior or ideation Metabolic acidosis, non-gap hyperchloremic (decreased serum bicarbonate below normal levels) resulting in hyperventilation or fatigue Kidney stones Paresthesias (numbness or tingling in hands or feet) Ataxia Dizziness Increase in urination frequency Drug interactions. Use of monamine oxidase inhibitors (MAOI s), valproic acid, Caution use with dehydration or diarrheal illness, hepatic or renal impairment In case of emergency/overdose In case of overdose, call your local poison control center at or call local emergency services at 727. What other information should I know? Keep all appointments with your doctor and the laboratory. Do not let anyone else take your medication. Topiramate use needs to be monitored closely. Prescriptions may be refilled only a limited number of times. Keep a written list of all of your prescription and nonprescription (jsjv-qqm-qxguhto) medicines, in addition to vitamins, minerals, or other dietary supplements. How should I monitor while on this medication? Your doctor will check your baseline kidney function and electrolytes prior to starting this medication, then periodically. Continue to improve your dietary and physical activity habits as the combination works best while on this medication. Start out by taking the medication at bedtime as it can cause fatigue and sleepiness. Be sure to eat regular meals. Less hunger does not make it appropriate to skip meals. Make sure to have an eye exam, including the pressure in your eyes (intra-ocular pressure), once a year. What should I do if I forget a dose? Skip the missed dose and continue your regular dosing schedule the next day. Do not take a double dose to make up for a missed one. Sources Pubmed Health: http://www.ncbi.nlm.nih.gov/pubmedhealth/WYH3585406/ Drugs.com http://www.drugs.com/pro/topiramate.html documented [facility] Telephone encounter Note * Telephone Encounter - Anh Mckeon - 02/20/2024 10:46 AM EDT Physician: Aster Call from patient requesting refill. Please E-Scribe Last office visit 01/25/24 with Aster in person Next office visit 04/18/24 with Aster in person Requested Prescriptions Pending Prescriptions Disp Refills rimegepant (NURTEC ODT) 75 mg disintegrating tablet 8 tablet 13 Sig: Take 1 dissolvable tablet by mouth at migraine onset. Take only 1 tablet per 24 hours. Pharmacy Name: [facility] Miscellaneous Notes* Telephone Encounter - Anh Mckeon - 02/20/2024 10:46 AM EDT Physician: Aster Call from patient requesting refill. Please E-Scribe Last office visit 01/25/24 with Aster in person Next office visit 04/18/24 with Aster in person Requested Prescriptions Pending Prescriptions Disp Refills rimegepant (NURTEC ODT) 75 mg disintegrating tablet 8 tablet 13 Sig: Take 1 dissolvable tablet by mouth at migraine onset. Take only 1 tablet per 24 hours. Pharmacy Name: [facility] documented [facility]Ge[facility]10[facility] Telephone encounter Note * Telephone Encounter - Dulce Maria Perez OCCA - 02/20/2024 8:09 AM EDT Prescription Refill Information The patient has been identified by name and date of : Yes Caregiver verified no other encounters exist for this prescription request: Yes Caregiver confirmed with patient/requestor that no other refills are due, in the near future, with this provider at this time: Yes The last office visit in the department: 12/26/2023 Does the patient have a future office visit with this provider/department: No Requested Prescriptions Pending Prescriptions Disp Refills venlafaxine ER (EFFEXOR XR) 150 mg 24 hr capsule 90 capsule 3 Sig: Take 1 capsule by mouth once daily. albuterol HFA (PROVENTIL HFA, VENTOLIN HFA) 90 mcg/actuation inhaler 1 Each 5 Sig: Inhale 2 Puffs as instructed every 4 hours as needed for wheezing/shortness of breath. as instructed LUKE Christianson February 20, 2024 8:10 AM [facility] Miscellaneous Notes* Telephone Encounter - Dulce Maria Perez OCCA - 02/20/2024 8:09 AM EDT Prescription Refill Information The patient has been identified by name and date of : Yes Caregiver verified no other encounters exist for this prescription request: Yes Caregiver confirmed with patient/requestor that no other refills are due, in the near future, with this provider at this time: Yes The last office visit in the department: 12/26/2023 Does the patient have a future office visit with this provider/department: No Requested Prescriptions Pending Prescriptions Disp Refills venlafaxine ER (EFFEXOR XR) 150 mg 24 hr capsule 90 capsule 3 Sig: Take 1 capsule by mouth once daily. albuterol HFA (PROVENTIL HFA, VENTOLIN HFA) 90 mcg/actuation inhaler 1 Each 5 Sig: Inhale 2 Puffs as instructed every 4 hours as needed for wheezing/shortness of breath. as instructed LUKE Christianson February 20, 2024 8:10 AM documented [facility] encounterGe[facility] Telephone encounter Note * Telephone Encounter - Jami Lott - 01/31/2024 9:29 AM EDT Scheduled with patient Start email sent [facility] Work Phone: 1(864) 714-738309-17-2024 Miscellaneous Notes* Telephone Encounter - Jami Lott - 01/31/2024 9:29 AM EDT Scheduled with patient Start email sent * Telephone Encounter - Aleah Duke - 01/31/2024 9:00 AM EDT Spoke with patient and she was unable to schedule at the time of the call (driving.) She will call back to schedule. Aleah Duke * Telephone Encounter - Emmanuelle Amezcua LPN - 01/31/2024 8:33 AM EDT PSS- please reach out to patient to schedule iron infusions. Emmanuelle Amezcua LPN * Telephone Encounter - Ashley Carmen DO - 01/30/2024 5:10 PM EDT I updated the orders in [place]. Ashley Carmen DO documented in [facility] encounterGe[facility]09-[facility] Telephone encounter Note * Telephone Encounter - Leilani Aleah - 01/31/2024 9:00 AM EDT Spoke with patient and she was unable to schedule at the time of the call (driving.) She will call back to schedule. Aleah Leilani [facility]09-17-[facility] Telephone encounter Note* Telephone Encounter - Emmanuelle Amezcua LPN - 01/31/2024 8:33 AM EDT PSS- please reach out to patient to schedule iron infusions. Emmanuelle Amezcua LPN [facility]09-16-[facility] Telephone encounter Note* Telephone Encounter - Ashley Carmen DO - 01/30/2024 5:10 PM EDT I updated the orders in [place]. Ashley Carmen DO [facility]-14-[facility] Instructions* Patient Instructions* Garima Zarate APRN.MARISELA - 01/28/2024 1:46 PM EDT ASSESSMENT/PLAN: 1. Abrasion of right cornea, initial encounter - ICD9: 918.1, ICD10: S05.01XA 1 drop of tetracaine instilled into right eye. Fluorescein stain instilled into right eye and examined under black light. Corneal abrasion identified at 9:00 position. Patient tolerated procedure well. - POLYMYXIN B SULFATE 10,000 UNIT-TRIMETHOPRIM 1 MG/ML EYE DROPS - Follow-up with your EYE DOCTOR in 2 days if symptoms have not improved or sooner if symptoms worsen - Discussed red flags and need for immediate medical evaluation if any occur. - Discussed supportive care treatment with fluids, rest and analgesia. - Discussed expected course of illness Garima Zarate APRN.UI ARCHITECT CORNEAL ABRASION GENERAL INFORMATION: A corneal abrasion is a scratch to the clear layer that covers the front part of the eye. Small scratches usually heal within 1 or 2 days. Deeper or larger scratches may take about a week. INSTRUCTIONS: If you usually wear contact lenses, do not wear them until approved by your follow-up doctor. You should rest your eyes. Avoid reading, watching TV, and other activities that require excessive use of your eyes. If your provider prescribed drops or ointment for your eye, use them as instructed. CONTACT YOUR DOCTOR IF: 1. Your eye pain gets worse. 2. You experience changes in your vision. documented in [facility] encounterGe[facility] History of Present illness Narrative* Garima Zarate APRN.UI ARCHITECT - 01/28/2024 1:40 PM EDT Subjective Eye Problem Associated symptoms include congestion. Pertinent negatives include no chills, coughing, fever, rash or sore throat. Maria Elena Garay is a 33 year old female who presents with right eye redness and irritation x 1 days. She states she had some redness of the eye and some mucous strings in her eye and tried to removethem with a Qtip. Since then she has had increased redness and feels like something is in her eye. She states the eyeball feels tender. She denies visual changes. Review of Systems Constitutional: Negative for chills and fever. HENT: Positive for congestion. Negative for ear pain and sore throat. Eyes: Positive for pain and redness. Negative for blurred vision, double vision, photophobia and discharge. Respiratory: Negative for cough. Skin: Negative for itching and rash. 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 Menorrhagia with regular cycle 11/08/2023 Mental disorder Migraine, unspecified, with intractable migraine, so stated, without mention of status migrainosus Migraine Ovarian cyst resolved Pain in joint, pelvic region and thigh 07/29/2014 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 Oscar [place] SURG CHOLECYSTECTOMY W/CHOLANGIOGRAPHY 02/14/2013 SALPINGECTOMY Bilateral 05/31/2019 B/L Salpingectomy at [facility]-Dr. Moore TONSILLECTOMY HX 03/2018 [facility]-Dr. James TUBAL LIGATION HX 01/13/2016 filshie clips ALLERGIES Compazine [Prochlorperazine Edisylate], Reglan [Metoclopramide Hcl], and Seasonal Allergies MEDICATIONS divalproex ER (DEPAKOTE ER) 500 mg 24 hr tablet Take 2 tabs at bedtime for 5 days, then decrease to1 tab at bedtime for 5 days then stop chlorzoxazone (PARAFON FORTE DSC) 500 mg tablet Take 1 tablet by mouth three times a day as needed. Lactobacillus acidophilus (FLORAJEN ACIDOPHILUS) 20 billion cell capsule Take 1 capsule by mouth once daily. pantoprazole DR (PROTONIX) 40 mg tablet TAKE 1 TABLET BY MOUTH TWICE A DAY diphenoxylate-atropine (LOMOTIL) 2.5-0.025 mg per tablet Take 1 tablet by mouth four times a day asneeded for diarrhea for up to 7 days. atogepant (QULIPTA) 60 mg tablet Take 1 tablet (60 mg) by mouth once daily. propranolol ER (INDERAL LA) 80 mg 24 hr capsule Take 1 capsule by mouth once daily. gabapentin (NEURONTIN) 600 mg tablet Take 1 tablet by mouth three times a day. ondansetron (ZOFRAN) 4 mg tablet Take 2 tablets by mouth every 8 hours as needed for nausea/vomiting. lisinopril (ZESTRIL) 5 mg tablet Take 1 tablet by mouth once daily. NURTEC ODT 75 mg disintegrating tablet TAKE 1 DISSOLVABLE TABLET BY MOUTH AT MIGRAINE ONSET. TAKE ONLY 1 TABLET PER 24 HOURS. ergocalciferol 50,000 unit capsule (VITAMIN D2, DRISDOL) Take 1 capsule by mouth one time a week. cyclobenzaprine (FLEXERIL) 10 mg tablet Take 1 tablet by mouth three times a day as needed. traMADol (ULTRAM) 50 mg tablet Take 1 tablet by mouth every 6 hours as needed for pain. venlafaxine ER (EFFEXOR XR) 150 mg 24 hr capsule Take 1 capsule by mouth once daily. albuterol (PROVENTIL) 2.5 mg /3 mL (0.083 %) nebulizer solution Use 3 mL via nebulizer every 4 hours as needed. Use over 5-15minutes. Cholecalciferol, Vitamin D3, 125 mcg (5,000 unit) cap Take 1 capsule by mouth once daily. norethindrone (AYGESTIN) 5 mg tablet Take 1 tablet by mouth three times per day until bleeding stops. Then take one tablet by mouth for 3 days. (Patient not taking: Reported on 01/19/2024) albuterol HFA (PROVENTIL HFA, VENTOLIN HFA) 90 mcg/actuation inhaler Inhale 2 Puffs as instructed every 4 hours as needed for wheezing/shortness of breath. as instructed FAMILY HISTORY Problem Relation Age of Onset Cancer Mother thyroid, skin. - precancerous cervical cells on pap smear Hypertension Mother Thyroid Cancer Mother Migraines Mother Skin Cancer Mother COPD Father Breast Cancer Maternal Grandmother Hypertension Maternal Grandmother Asthma Maternal Grandmother Anxiety disorder Maternal Grandmother Bipolar disorder Maternal Grandmother Heart Maternal Grandfather Ischemic Heart Disease Maternal Grandfather stomach, ovarian. Heart Attack Paternal Grandfather Ovarian cancer Other Great Grandmother Social History Tobacco Use Smoking status: Never Smokeless tobacco: Never Vaping Use Vaping status: Former Substances: Nicotine, Flavoring Substance Use Topics Alcohol use: Yes Comment: 1 nightout every 2 months- 2-3 drinks-None since Drug use: Never Objective Physical Exam Vitals and nursing note reviewed. Constitutional: Appearance: Normal appearance. HENT: Right Ear: Tympanic membrane, ear canal and external ear normal. Left Ear: Tympanic membrane, ear canal and external ear normal. Nose: Nose normal. Mouth/Throat: Pharynx: Uvula midline. No oropharyngeal exudate or posterior oropharyngeal erythema. Eyes: General: Lids are normal. Gaze aligned appropriately. No allergic shiner. Right eye: No foreign body, discharge or hordeolum. Extraocular Movements: Extraocular movements intact. Conjunctiva/sclera: Right eye: Right conjunctiva is injected. No chemosis, exudate or hemorrhage. Pupils: Pupils are equal, round, and reactive to light. Right eye: Corneal abrasion and fluorescein uptake present. Funduscopic exam: Right eye: No hemorrhage. Slit lamp exam: Right eye: No foreign body or photophobia. Comments: Visual acuity: OD: 20/30 OU: 20/20 Cardiovascular: Rate and Rhythm: Normal rate. Pulmonary: Effort: Pulmonary effort is normal. Musculoskeletal: Cervical back: Neck supple. Lymphadenopathy: Cervical: No cervical adenopathy. Skin: General: Skin is warm and dry. Findings: No erythema or rash. Neurological: Mental Status: She is alert. ASSESSMENT/PLAN: 1. Abrasion of right cornea, initial encounter - ICD9: 918.1, ICD10: S05.01XA 1 drop of tetracaine instilled into right eye. Fluorescein stain instilled into right eye and examined under black light. Corneal abrasion identified at 9:00 position. Patient tolerated procedure well. - POLYMYXIN B SULFATE 10,000 UNIT-TRIMETHOPRIM 1 MG/ML EYE DROPS - Follow-up with your EYE DOCTOR in 2 days if symptoms have not improved or sooner if symptoms worsen - Discussed red flags and need for immediate medical evaluation if any occur. - Discussed supportive care treatment with fluids, rest and analgesia. - Discussed expected course of illness Garima Zarate APRN.UI ARCHITECT documented in this encounterGe[facility]09-12-2024 Telephone encounter Note * Telephone Encounter - Vickie Márquez - 01/26/2024 3:17 PM EDT Patient has been contacted offered [facility] Card first available 07-30-2024, she stated to schedule in [place] if sooner availability and she will see it in MyChart. Currently scheduled 05-29-2024 W / Dr. Orellana [facility] Work Phone: 1(361) 407-728709-12-2024 Miscellaneous Notes* Telephone Encounter - Vickie Márquez - 01/26/2024 3:17 PM EDT Patient has been contacted offered [facility] Card first available 07-30-2024, she stated to schedule in [place] if sooner availability and she will see it in MyChart. Currently scheduled 05-29-2024 W / Dr. Orellana * Telephone Encounter - Sussy De Leon MA - 01/25/2024 10:15 AM EDT Patient informed and verbalized understanding. Sending to clerical for Cards consult. Sussy De Leon MA * Telephone Encounter - Jes Fuentes MD - 01/25/2024 10:00 AM EDT Monitor shows her upper chambers are occasionally going fast. Not a dangerous rhythm but can cause a lot of symptoms. Recommend cardiology see her. documented in this encounterGe[facility]09-11-2024 Instructions* Patient Instructions* Zoraida Rodarte APRN.MARISELA - 01/25/2024 2:16 PM EDT Depakote ER 500 mg - Take 2 tablets (1000 mg) by mouth for 5 days. Then take 1 tablet (500 mg) by mouth for 5 days. AFTER VISIT CARE BOTOX INJECTION While these procedures can be extremely helpful as part of your headache treatment plan, they can irritate the muscles and tissues in your head, neck and shoulders. Proper follow-up care is important to avoid muscle spasms and temporary pain increase within the following 3-5 days after your clinic visit. Here are some tips to help decrease side-effects that may occur and maximize the effectiveness of your pain relief -HYDRATION Hydration is important to help nourish your muscles and tissues. Drink 60-80 oz of non caffeinated fluid at least for 3 days after your visit. -REST Rest will help avoid further irritation of muscle and tissues. Remember that you need to give your body time to adjust. NO strenuous activity for at least the first 24 hours after your visit. Gentle stretching, yoga, meditation or even swimming is OK and encouraged. -ICE/HEAT Since these procedures irritate muscles, there can be some swelling. Alternating ice and heat every3-5 times per day may help decrease this, while also optimizing pain relief Use cool gel packs for ice for 10 min. Use a warm moist towel covered with a dry towel on neck and shoulders. Alternate stretching each side of the neck. -STRETCHING Slow, gentle stretching of the neck and shoulders once every hour is helpful to avoid muscle spasms. -TREAT MUSCLE SPASMS If you are already prescribed a muscle relaxer such as baclofen, tizanidine or flexeril, use as directed. If you do not have one, talk to your provider to find out if this would be safe for you to use. Do not rub or massage the area for 48- 72 hours. -OTHER No hair dyes or permanents for 24 hours. If you are paying out of pocket for Botox go online to Botox Savings Program and see if you qualifyfor reimbursement. Return in 3 months for your next Botox Injection documented in this encounterGe[facility]09-11-2024 History of Present illness Narrative* Zoraida Rodarte APRN.CNP - 01/25/2024 1:45 PM EDT Images from the original note were not included. Headache Center Follow-up Visit Miscellaneous Patient Concerns: She has had worsening migraines over the past 8 weeks. Focused through the frontal area, R and L. She has had to call off work. Denies any new numbness/tingling, visual changes or weakness. Some dizziness and osmophobia as well as chronic nausea and photophonophobia. Overall typical pattern. She has been taking Qulipta over the past 2 months. Took awhile to get the PA and medication from the pharmacy. She has been receiving iron infusions. She is extremely nauseated 24/7 and has been taking her Zofran like candy. She did have GI referral, but had to cancel that appointment. Advised to reschedule this. She needs to see Cardiology now. She recently had Holter monitor for evaluation of palpitations. Found to have SVT and atrial tachycardia. History of mild sleep apnea, not using CPAP. Needs to get the mouthpiece for it. Advised she talk with her PCP. Impression: Chronic migraine without aura, intractable, without status migrainosus (primary encounter diagnosis) Plan: Rescue therapy: -Continue Nurtec as needed for migraine at this time. -Consider Zavzpret trial. Bridge therapy: -Depakote bridge. -Consider 3-days of IV infusions if needed. This is typically beneficial for her. Preventive therapy: -Botox today. This is what helps her the most. -Qulipta 60 mg daily. Continue for now. May consider [facility] to [facility] if no response or trial ofAjovy. -Gabapentin, Propranolol and Effexor per prescribers. -Consider updating MRI imaging if migraines remain severe and unresponsive to treatments. Follow-Up Onabotulinum Toxin A (BotoxTM) for Migraine Indication: Chronic Intractable Migraine Referral Expiration: 10/24/2024 Prior to the initiation of the FIRST treatment with Onabotulinum Toxin A, the patient reported the following average headache frequency over the past 3 MONTHS: Number of moderate-severe migraine days/month: 30 (daily) Number of mild migraine days/month: 0 Number of headache free days/month: 0 (0 headache-free hours) After treatment with Onabotulinum Toxin A: Number of moderate-severe migraine days/month: 10 Number of mild migraine days/month: 10 Number of headache free days/month: 10 (240 headache-free hours) Patient reduction in overall migraine days: Yes Patient reduction in moderate-severe migraine days: Yes Patient reduction of headache hours by 100 hours or more: Yes (reduction of 240 hours) Individual has obtained clinical benefit deemed significant by individual or prescriber (Y/N): Yes Patient's quality of life and ability to perform ADLs has improved (Y/N): Yes Side effects: none Wearing off: Yes - 9 weeks after treatment The patient has been assessed for disorders which could contribute to breathing or swallowing difficulty, and there is no contraindication with PREEMPT Botox. There is no documented allergic reaction/hypersensitivity to any botulinum toxin and there is no active infection at proposed injection site. HEADACHE SCORES: 08/03/2022 11/02/2022 08/11/2023 Headache Questions ER visits since last office visit: 1 0 0 Hospital stays since last office visit 0 0 0 Limited ADLs in the last month: 12 20 15 Days missed from work or school in the last month: 5 4 5 Days headache pain free in the last month: 5 10 0 Days per month with ALL of the following symptoms - decreased productivity, light sensitivity and nausea: 18 20 Initial improvement of headache after botox injection at last visit: No change Minimally improved No change PRN medication usage in the last month: 18 5 5 Patient impression of improvement since last visit: No change No change Much worse 08/03/2022 11/02/2022 08/11/2023 HIT-6 HIT-6 65 (Severe impact) 75 (Severe impact) 70 (Severe impact) 05/03/2022 08/03/2022 11/02/2022 MYLA - 2/7 SCORES MYLA-2 Score 2 2 3 MYLA-7 Score 13 05/03/2022 08/03/2022 11/02/2022 Migraine Specific QOL - Higher scores indicate better HRQL Role Function-Restrictive Transformed Score (range: 0-100) 60 37.14 28.57 Role Function-Preventive Transformed Score (range: 0-100) 60 50 75 Emotional Function Transformed Score (range: 0-100) 60 20 20 11/02/2022 08/03/2022 05/03/2022 PHQ-9 Score 12 12 6 BP 138/89 Pulse 96 Wt 105.5 kg (232 lb 9.4 oz) LMP 12/30/2023 (Exact Date) BMI 39.92 kg/m Patient name: Maria Elena Garay : 1990 ALLERGIES Allergen Reactions Compazine [Prochlor* Other: See Comments Akathisia with IV Compazine Reglan [Metoclopram* Other: See Comments Akathisia with IV Reglan Seasonal Allergies Unknown UNIVERSAL PROTOCOL / SAFETY CHECKLIST Procedure: Onabotulinum toxin A for migraine Informed Consent Consent Obtained: Written Phelps Protocol A moment to CARE was completed SIGN IN Personnel directly involved with the procedure wore the appropriate PPE Special Equipment: N/A Patient/Surrogate Stated/Verified: Patient name, Date of , Relevant allergies and Intended procedure TIME OUT Intended patient and procedure match the source document(s) Consent documented and matches the intended procedure No relevant labs, photos, and/or imaging studies were applicable for review. No correct side/site applicable for marking and visibility. No medications required for procedure. No fire risk assessment and interventions applicable. No implant(s) inserted. SIGN OUT No specimen collected. No instruments, equipment or retained foreign bodies applicable. Post-procedure follow-up management communicated and Plan of Care Visit completed when applicable Written Consent Obtained: Written LOT #: [id number] Expiration Date: Month: Year: 2025 Second vial: LOT #: [id number] Expiration Date: Month: Year: 2025 Injection Sites Left (Units) Left (Sites) Right (Units) Right (Sites) TOTAL (Units) Obstetrics Nurse Practitioner 5 1 5 1 10 Procerus Units: 5 Sites: 1 5 Frontalis 10 2 10 2 20 Temporalis optional follow the pain 20 10 4 2 20 10 4 2 60 Occipitalis optional follow the pain 15 7.5 3 2 15 7.5 3 2 45 Cervical PSP 10 2 10 2 20 Trapezius optional follow the pain 15 5 3 1 15 5 3 1 40 Total Units used: 200 Total Units wasted: 0 Patient tolerated procedure well. Prior Therapies Duration of Use Dose Side effect Analgesic Butalbital/acetaminophen/caffeine (Fioricet) Diclofenac (Voltaren, Cataflam, Cambia) Hydrocodone/Acetaminophen (Vicodin, Cowpens) Ketorolac (Toradol) Meclofenamate (Meclomen) Meloxicam (Mobic) Oxycodone/Acetaminophen (Percocet) Tramadol (Ultram) Anti-Anxiety Buspirone (Buspar) Anti-Convulsant Carbamazepine (Tegretol) Gabapentin (Neurontin) Topiramate (Topamax, Trokendi XL, Qudexy) Anti-Depressant and Antipsychotic Amitriptyline (Elavil) Bupropion (Wellbutrin) Citalopram (Celexa) Fluoxetine (Prozac) Sertraline (Zoloft) Venlafaxine (Effexor) Antiemetics Promethazine Reglan (Metoclopramide) Anti-Migraine Dihydroergotamine (DHE-45, Migranal) Eletriptan (Relpax) Naratriptan (Amerge) Rizatriptan (Maxalt) Sumatriptan (Imitrex, Sumavel) Blood Pressure Lisinopril (Zestril) Propranolol (Inderal) MABs Erenumab (Aimovig) Galcanezumab (Emgality) Eptinezumab (Vyepti) GEPANTS Ubrogepant (Ubrelvy) Rimegepant (Nurtec) Atogepant Botulinum Toxin Onabotulinum Toxin A (Botox) 6 treatments Muscle Relaxer Chlorzoxazone (Parafon Forte) Cyclobenzaprine (Flexeril) Supplements Magnesium Other Medications Prednisone Over the Counter Medications Acetaminophen (Tylenol) Acetaminophen/Aspirin/Caffeine (Excedrin, Goody s) Naproxen sodium (Aleve) Zoraida Rodarte APRN.UI ARCHITECT documented [facility] encounterGe[facility]24 [facility] Telephone encounter Note* Telephone Encounter - Sussy De Leon MA - 01/25/2024 10:15 AM EDT Patient informed and verbalized understanding. Sending to clerical for Cards consult. Sussy De Leon MA [facility]09-11-2024 Telephone encounter Note* Telephone Encounter - Jes Fuentes MD - 01/25/2024 10:00 AM EDT Monitor shows her upper chambers are occasionally going fast. Not a dangerous rhythm but can cause a lot of symptoms. Recommend cardiology see her. [facility]09-05-2024 [facility] History of Present illness Narrative* Aruna Hunter - 01/19/2024 8:33 AM EDT Maria Elena Garay 1990 01/19/2024 HPI: The patient is a 33-year-old female with a past medical history as outlined below. Seen here last year for leukocytosis and thrombocytosis. MPN panel negative. History of smoking: No. Vaped once or twice. Aquagenic pruritus: No. Erythromelalgia: No. History of DVT: No. History of arterial thromboembolism: Regular dental check ups: Yes. Always nauseated. Always super tired. All over muscle aches. On gabapentin for FM. Tingling from elbows distally. Right hand numb. More frequent palpitations. More so when walking up a grade. No asthma attack in about 2 years. No wheezing. BLAISE--Not using CPAP; not in a while. Menses--Regular. Typically 5-6 days. Heavy at first with clots. Interval History: Ms. Garay presents today for follow up and lab review. Plts mildly elevated today. She notes thatshe had very heavy period worst of my life changing super tampon q45 minutes for 4 days in the last month. Ongoing migraine, she is due for repeat botox this week. Otherwise no new issues. Reviewedthat thrombocytosis is likely reactive. Had nice response with IV iron, however recent episode of heavy bleeding. She is following with CO CHAIRMAN for this. No recent illness, fevers, chills or NS. Allergies bad recently, now feels like has upper respiratory congestion. Taking OTC antihistamines. 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 11/08/2023: Menorrhagia with regular cycle No date: Mental disorder No date: Migraine, unspecified, with intractable migraine, so stated, without mention of status migrainosus Comment: Migraine No date: Ovarian cyst Comment: resolved 07/29/2014: Pain in joint, pelvic region and thigh 09/01/2015: Patellar disorder 2013: PID (acute pelvic inflammatory disease) 11/05/2015: PIH ( induced hypertension) 12/31/2015: Post depression No date: Thyroid disease Comment: goiter No date: Trauma PAST SURGICAL HISTORY No date: APPENDECTOMY HX 06/16/2023: EGD W/O [facility] SPEC VARICIES INJ Comment: Dr Loco 03/21/2013: ESOPHAGOGASTRODUODENOSCOPY TRANSORAL DIAGNOSTIC Comment: EGD No date: HERNIA REPAIR HX No date: KNEE 1 OP 2 VIEWS 11/2011: KNEE ARTHROSCOPY/SURGERY Comment: left 04/24/2021: LAP SURG APPENDECTOMY 05/31/2019: LAPAROSCOPY DIAGNOSTIC Comment: at [facility]-Dr. Moore 02/14/2013: LAPS SURG CHOLECYSTECTOMY W/CHOLANGIOGRAPHY 05/31/2019: SALPINGECTOMY; Bilateral Comment: B/L Salpingectomy at [facility]-Dr. Moore 03/2018: TONSILLECTOMY HX Comment: [facility]-Dr. James 01/13/2016: TUBAL LIGATION HX Comment: filshie clips ALLERGIES Allergen Reactions Compazine [Prochlor* Other: See Comments Akathisia with IV Compazine Reglan [Metoclopram* Other: See Comments Akathisia with IV Reglan Seasonal Allergies Unknown Current Outpatient Medications Medication Sig chlorzoxazone (PARAFON FORTE DSC) 500 mg tablet Take 1 tablet by mouth three times a day as needed. Lactobacillus acidophilus (FLORAJEN ACIDOPHILUS) 20 billion cell capsule Take 1 capsule by mouth once daily. pantoprazole DR (PROTONIX) 40 mg tablet TAKE 1 TABLET BY MOUTH TWICE A DAY diphenoxylate-atropine (LOMOTIL) 2.5-0.025 mg per tablet Take 1 tablet by mouth four times a day asneeded for diarrhea for up to 7 days. atogepant (QULIPTA) 60 mg tablet Take 1 tablet (60 mg) by mouth once daily. propranolol ER (INDERAL LA) 80 mg 24 hr capsule Take 1 capsule by mouth once daily. gabapentin (NEURONTIN) 600 mg tablet Take 1 tablet by mouth three times a day. ondansetron (ZOFRAN) 4 mg tablet Take 2 tablets by mouth every 8 hours as needed for nausea/vomiting. lisinopril (ZESTRIL) 5 mg tablet Take 1 tablet by mouth once daily. NURTEC ODT 75 mg disintegrating tablet TAKE 1 DISSOLVABLE TABLET BY MOUTH AT MIGRAINE ONSET. TAKE ONLY 1 TABLET PER 24 HOURS. ergocalciferol 50,000 unit capsule (VITAMIN D2, DRISDOL) Take 1 capsule by mouth one time a week. cyclobenzaprine (FLEXERIL) 10 mg tablet Take 1 tablet by mouth three times a day as needed. traMADol (ULTRAM) 50 mg tablet Take 1 tablet by mouth every 6 hours as needed for pain. albuterol HFA (PROVENTIL HFA, VENTOLIN HFA) 90 mcg/actuation inhaler Inhale 2 Puffs as instructed every 4 hours as needed for wheezing/shortness of breath. as instructed venlafaxine ER (EFFEXOR XR) 150 mg 24 hr capsule Take 1 capsule by mouth once daily. albuterol (PROVENTIL) 2.5 mg /3 mL (0.083 %) nebulizer solution Use 3 mL via nebulizer every 4 hours as needed. Use over 5-15minutes. Cholecalciferol, Vitamin D3, 125 mcg (5,000 unit) cap Take 1 capsule by mouth once daily. norethindrone (AYGESTIN) 5 mg tablet Take 1 tablet by mouth three times per day until bleeding stops. Then take one tablet by mouth for 3 days. (Patient not taking: Reported on 01/19/2024) No current facility-administered medications for this visit. Social History Tobacco Use Smoking status: Never Smokeless tobacco: Never Vaping Use Vaping status: Former Substances: Nicotine, Flavoring Substance Use Topics Alcohol use: Yes Comment: 1 nightout every 2 months- 2-3 drinks-None since Drug use: Never Family History Problem Relation Age of Onset Cancer Mother thyroid, skin. - precancerous cervical cells on pap smear Hypertension Mother Thyroid Cancer Mother Migraines Mother Skin Cancer Mother COPD Father Breast Cancer Maternal Grandmother Hypertension Maternal Grandmother Asthma Maternal Grandmother Anxiety disorder Maternal Grandmother Bipolar disorder Maternal Grandmother Heart Maternal Grandfather Ischemic Heart Disease Maternal Grandfather stomach, ovarian. Heart Attack Paternal Grandfather Ovarian cancer Other Great Grandmother ROS: 10 system review negative otherwise. PHYSICAL EXAM: Vitals: Blood pressure 140/94, pulse 85, temperature 36.9 C (98.5 F), temperature source Temporal, resp. rate 17, weight 106.6 kg (235 lb), last menstrual period 12/30/2023, SpO2 97%. Well-appearing and in no acute distress. EYES: Sclerae are anicteric bilaterally. ENT: Oral mucosa is unremarkable. There is no sign of thrush or mucositis. LYMPHATIC: There is no palpable cervical, supraclavicular, axillary or inguinal adenopathy. RESPIRATORY: Inspiratory breath sounds are of normal intensity in all singleton. No rales, wheezes or rhonchi. Expiratory phase is normal. CARDIOVASCULAR: Rhythm is regular. Normal intensity S1/S2. There is no gallop or murmur. ABDOMEN: The abdomen is nondistended. No splenomegaly or hepatomegaly. No tenderness. Extremities: No swelling or edema. SKIN: No jaundice or rash. No petechiae. NEUROLOGIC: dry can tender II-XII are grossly intact. No focal motor weakness. DTRs are symmetric and normal. MUSCULOSKELETAL: No joint swelling or tenderness. No muscle wasting. ASSESSMENT/PLAN: (D75.839) Thrombocytosis Assessment: -33-year-old female past medical history as outlined above. Several year history of leukocytosis and thrombocytosis. Has heavy menses, ongoing issue. Suspect iron deficiency with fluctuating iron levels. Also likely some degree of chronic inflammation. May be related to untreated sleep apnea. Plan: - iron studies pending today. Had good response to IV iron, suggesting reactionary response. - continue to follow with gynecology. - recommend multi or with iron for maintenance - repeat labs (CBC, iron studies) and OV in 6 months Aruna Hunter APRN.UI ARCHITECT I spent a total of 30 minutes on the date of the service which included preparing to see the patient, [id number] patient care, completing clinical documentation, and counseling and educating the patient/family/caregiver. Portions of this note including HPI, ROS, impression/plan may have been copied forward as to provide important historical information essential in contributing to medical decision making. Documentation has been reviewed and edited as necessary to support clinical decision making for today's visit and to reflect my own independent evaluation of this patient. documented in this encounterGe[facility]08-28-2024 Telephone encounter Note * Telephone Encounter - Anh Mckeon - 01/11/2024 9:00 AM EDT Physician: De Dios Call from patient requesting refill. Please E-Scribe Last office visit 10/28/23 with De Dios in person Next office visit 01/25/24 with Aster in person Requested Prescriptions Pending Prescriptions Disp Refills chlorzoxazone (PARAFON FORTE DSC) 500 mg tablet 60 tablet 3 Sig: Take 1 tablet by mouth three times a day as needed. [facility]: [facility] Anh Mckeon [facility]08-28-2024 Miscellaneous Notes* Telephone Encounter - Anh Mckeon - 01/11/2024 9:00 AM EDT Physician: Va Call from patient requesting refill. Please E-Scribe Last office visit 10/28/23 with De Dios in person Next office visit 01/25/24 with Aster in person Requested Prescriptions Pending Prescriptions Disp Refills chlorzoxazone (PARAFON FORTE DSC) 500 mg tablet 60 tablet 3 Sig: Take 1 tablet by mouth three times a day as needed. 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 Maria Elena Garay is a 33 year old female who presents for problem visit of heavy bleeding. HPI: Maria Elena's period started on 12/30/23. She has been using a tampon every 45 minutes and has also noted clots. She feels weak and tired, as well as lightheaded. Maria Elena had a normal ultrasound 10/31/23. Hemoglobin A1C 5.8 on 11/25/23. TSH WNL on 11/25/23. CBC WNL on 11/25/23. History of thrombocytosis (589 on 10/07/23) Pap and HPV negative 10/18/23. Denies any new sexual partners. History of bilateral salpingectomy. Has seen Dr. Carmen for thrombocytosis/iron transfusions. Testing for von Willebrand negative. Has follow up in January. 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 LMP: 10/23/2023, Having periods Age at Menarche: Age at First : Age at Menopause: Front Of House Manager History Comments: Sexual Activity: Yes; Male Contraception: Tubal Ligation 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 11/08/2023: Menorrhagia with regular cycle No date: Mental disorder No date: Migraine, unspecified, with intractable migraine, so stated, without mention of status migrainosus Comment: Migraine No date: Ovarian cyst Comment: resolved 07/29/2014: Pain in joint, pelvic region and thigh 09/01/2015: Patellar disorder 2013: PID (acute pelvic inflammatory disease) 11/05/2015: PIH ( induced hypertension) 12/31/2015: Post depression No date: Thyroid disease Comment: goiter No date: Trauma PAST SURGICAL HISTORY No date: APPENDECTOMY HX 06/16/2023: EGD W/O [facility] SPEC VARICIES INJ Comment: Dr Loco 03/21/2013: ESOPHAGOGASTRODUODENOSCOPY TRANSORAL DIAGNOSTIC Comment: EGD No date: HERNIA REPAIR HX No date: KNEE 1 OP 2 VIEWS 11/2011: KNEE ARTHROSCOPY/SURGERY Comment: left 04/24/2021: LAP SURG APPENDECTOMY 05/31/2019: LAPAROSCOPY DIAGNOSTIC Comment: at [facility]-Dr. Moore 02/14/2013: LAPS SURG CHOLECYSTECTOMY W/CHOLANGIOGRAPHY 05/31/2019: SALPINGECTOMY; Bilateral Comment: [facility]: TUBAL LIGATION HX Comment: gayle brown FAMILY HISTORY Problem Relation Age of Onset Cancer Mother thyroid, skin. - precancerous cervical cells on pap smear Hypertension Mother Thyroid Cancer Mother Migraines Mother Skin Cancer Mother COPD Father Breast Cancer Maternal Grandmother Hypertension Maternal Grandmother Asthma Maternal Grandmother Anxiety disorder Maternal Grandmother Bipolar disorder Maternal Grandmother Heart Maternal Grandfather Ischemic Heart Disease Maternal Grandfather stomach, ovarian. Heart Attack Paternal Grandfather Ovarian cancer Other Great Grandmother Social History Tobacco Use Smoking status: Never Smokeless tobacco: Never Vaping Use Vaping status: Former Substances: Nicotine, Flavoring Substance Use Topics Alcohol use: Yes Comment: 1 nightout every 2 months- 2-3 drinks-None since Drug use: No Current Outpatient Medications Medication Sig trimethoprim-polymyxin (POLYTRIM) 10,000 unit- 1 mg/mL ophthalmic solution Use 1 Drop in both eyes two times a day for 7 days. Lactobacillus acidophilus (FLORAJEN ACIDOPHILUS) 20 billion cell capsule Take 1 capsule by mouth once daily. pantoprazole DR (PROTONIX) 40 mg tablet TAKE 1 TABLET BY MOUTH TWICE A DAY diphenoxylate-atropine (LOMOTIL) 2.5-0.025 mg per tablet Take 1 tablet by mouth four times a day asneeded for diarrhea for up to 7 days. chlorzoxazone (PARAFON FORTE DSC) 500 mg tablet Take 1 tablet by mouth three times a day as needed. atogepant (QULIPTA) 60 mg tablet Take 1 tablet (60 mg) by mouth once daily. propranolol ER (INDERAL LA) 80 mg 24 hr capsule Take 1 capsule by mouth once daily. gabapentin (NEURONTIN) 600 mg tablet Take 1 tablet by mouth three times a day. ondansetron (ZOFRAN) 4 mg tablet Take 2 tablets by mouth every 8 hours as needed for nausea/vomiting. lisinopril (ZESTRIL) 5 mg tablet Take 1 tablet by mouth once daily. NURTEC ODT 75 mg disintegrating tablet TAKE 1 DISSOLVABLE TABLET BY MOUTH AT MIGRAINE ONSET. TAKE ONLY 1 TABLET PER 24 HOURS. ergocalciferol 50,000 unit capsule (VITAMIN D2, DRISDOL) Take 1 capsule by mouth one time a week. cyclobenzaprine (FLEXERIL) 10 mg tablet Take 1 tablet by mouth three times a day as needed. omeprazole (PRILOSEC) 20 mg capsule Take 1 capsule by mouth two times a day. 1/2 hr before meal. (Patient not taking: Reported on 11/25/2023) traMADol (ULTRAM) 50 mg tablet Take 1 tablet by mouth every 6 hours as needed for pain. albuterol HFA (PROVENTIL HFA, VENTOLIN HFA) 90 mcg/actuation inhaler Inhale 2 Puffs as instructed every 4 hours as needed for wheezing/shortness of breath. as instructed venlafaxine ER (EFFEXOR XR) 150 mg 24 hr capsule Take 1 capsule by mouth once daily. albuterol (PROVENTIL) 2.5 mg /3 mL (0.083 %) nebulizer solution Use 3 mL via nebulizer every 4 hours as needed. Use over 5-15minutes. Cholecalciferol, Vitamin D3, 125 mcg (5,000 unit) cap Take 1 capsule by mouth once daily. Leg Brace (YAO KNEE BRACE) misc Sleeve brace left knee No current facility-administered medications for this visit. Allergies As of Date: 01/02/2024 Allergen Noted Reaction COMPAZINE [PROCHLORPERAZINE EDISY*07/20/2018 Other: See Comments REGLAN [METOCLOPRAMIDE HCL] 07/20/2018 Other: See Comments SEASONAL ALLERGIES 10/15/2010 Unknown Fully Assessed 12/26/2023 REVIEW OF SYSTEMS Expanded ROS: CO CHAIRMAN: Positive for abnormal vaginal bleeding Allergies and current medication updated:Yes EXAM: BP 118/88 Pulse 96 Resp 14 Wt 238 lb (108.0kg) SpO2 98% LMP 12/30/2023 GENERAL: pleasant, female in no apparent distress CHEST: Normal inspiratory effort PELVIC: external genitalia normal, normal Bartholin's glands, urethra, Dozier's glands, no vulvar lesions, no cervical lesions, good vaginal support, + menses, normal appearing perineal body and perianal region BIMANUAL: uterus normal size, shape and consistency, no adnexal masses, and non-tender NEURO: alert and oriented x3,exam grossly non-focal EXTREMITIES: normal ASSESSMENT AND PLAN: 1. Abnormal uterine bleeding - ICD9: 626.9, ICD10: N93.9 (primary diagnosis) - Rx for Aygestin sent - IRON AND TIBC - COMPLETE BLOOD COUNT - Bleeding precautions reviewed. - Discussed EMB if cycles remain heavy. Patient will schedule if next cycle is heavy. - Discussed group home management options: progesterone only pill, Mirena IUD, Nexplanon implant, orDepo injection. No estrogen due to HTN - Maria Elena asked about ablation - discussed my recommendation of following up with a physician about this as IUD cannot be placed after ablation has been performed. 2. Class 3 severe obesity in adult, unspecified BMI, unspecified obesity type, unspecified whether serious comorbidity present (HCC) - ICD9: 278.01, ICD10: E66.01 - Discussed prediabetes and how this can cause changes in menstrual cycle - Recommend decreasing sugar intake and increasing exercise - Patient interested in weight management consult - CONSULT TO [facility] Mary Kumar APRN.CNP Medical Decision Making: Problems: Low: Acute, uncomplicated illness or injury Data: Unique test(s) ordered: 3+ Risk: Low: Low risk from testing/treatment Moderate: Drug management Medical Decision Making Level: 4 - Moderate documented in this encounterGe[facility] Hospital08-12-2024 NoteS[facility]08-12-20[facility] History of Present illness Narrative* Soraida Gardner APRN.MARISELA - 12/26/2023 7:57 AM EDT 12/26/2023 Patient presents with: [place] [facility]: Bilateral eyes, started Tuesday SUBJECTIVE: This is a 33 year old that is here today for Above Complaints.. Rene had left eye swelling and crusting. Feels like it is going into to her right eye. Thinks it is pink eye. Drainage in the morning quite a bit and then a little throughout the day. Does not wearcontacts. Feels itchy. Not using any OTC medications. Denies fevers, chills, visual changes, eye ball pain or URI symptoms. 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 11/08/2023: Menorrhagia with regular cycle No date: Mental disorder No date: Migraine, unspecified, with intractable migraine, so stated, without mention of status migrainosus Comment: Migraine No date: Ovarian cyst Comment: resolved 07/29/2014: Pain in joint, pelvic region and thigh 09/01/2015: Patellar disorder 2013: PID (acute pelvic inflammatory disease) 11/05/2015: PIH ( induced hypertension) 12/31/2015: Post depression No date: Thyroid disease Comment: goiter No date: Trauma ALLERGIES Compazine [Prochlorperazine Edisylate], Reglan [Metoclopramide Hcl], and Seasonal Allergies MEDICATIONS Current Outpatient Medications Medication Sig Lactobacillus acidophilus (FLORAJEN ACIDOPHILUS) 20 billion cell capsule Take 1 capsule by mouth once daily. pantoprazole DR (PROTONIX) 40 mg tablet TAKE 1 TABLET BY MOUTH TWICE A DAY diphenoxylate-atropine (LOMOTIL) 2.5-0.025 mg per tablet Take 1 tablet by mouth four times a day asneeded for diarrhea for up to 7 days. chlorzoxazone (PARAFON FORTE DSC) 500 mg tablet Take 1 tablet by mouth three times a day as needed. atogepant (QULIPTA) 60 mg tablet Take 1 tablet (60 mg) by mouth once daily. propranolol ER (INDERAL LA) 80 mg 24 hr capsule Take 1 capsule by mouth once daily. gabapentin (NEURONTIN) 600 mg tablet Take 1 tablet by mouth three times a day. ondansetron (ZOFRAN) 4 mg tablet Take 2 tablets by mouth every 8 hours as needed for nausea/vomiting. lisinopril (ZESTRIL) 5 mg tablet Take 1 tablet by mouth once daily. NURTEC ODT 75 mg disintegrating tablet TAKE 1 DISSOLVABLE TABLET BY MOUTH AT MIGRAINE ONSET. TAKE ONLY 1 TABLET PER 24 HOURS. ergocalciferol 50,000 unit capsule (VITAMIN D2, DRISDOL) Take 1 capsule by mouth one time a week. cyclobenzaprine (FLEXERIL) 10 mg tablet Take 1 tablet by mouth three times a day as needed. omeprazole (PRILOSEC) 20 mg capsule Take 1 capsule by mouth two times a day. 1/2 hr before meal. (Patient not taking: Reported on 11/25/2023) traMADol (ULTRAM) 50 mg tablet Take 1 tablet by mouth every 6 hours as needed for pain. albuterol HFA (PROVENTIL HFA, VENTOLIN HFA) 90 mcg/actuation inhaler Inhale 2 Puffs as instructed every 4 hours as needed for wheezing/shortness of breath. as instructed venlafaxine ER (EFFEXOR XR) 150 mg 24 hr capsule Take 1 capsule by mouth once daily. albuterol (PROVENTIL) 2.5 mg /3 mL (0.083 %) nebulizer solution Use 3 mL via nebulizer every 4 hours as needed. Use over 5-15minutes. Cholecalciferol, Vitamin D3, 125 mcg (5,000 unit) cap Take 1 capsule by mouth once daily. Leg Brace (YAO KNEE BRACE) misc Sleeve brace left knee No current facility-administered medications for this visit. Medications and allergies reviewed by this provider. SOCIAL HISTORY Social History Tobacco Use Smoking status: Never Smokeless tobacco: Never Vaping Use Vaping Use: Former Substances: Nicotine, Flavoring Substance Use Topics Alcohol use: Yes Comment: 1 nightout every 2 months- 2-3 drinks-None since Drug use: No REVIEW OF SYSTEMS All other reviewed and negative other than HPI. OBJECTIVE: BP 128/88 Pulse 89 Resp 18 Wt 108 kg (238 lb 1.6 oz) LMP 10/23/2023 SpO2 97% BMI 40.87 kg/m . Vital signs reviewed by this provider. APPEARANCE Well appearing, alert, in no acute distress, well-hydrated, well nourished. EYES PERRLA, conjunctiva and sclera normal. Mild crusting to inner canthus bilaterally. No active drainage. No swelling or erythema to outer eyes EARS External ears normal, canals clear Spirometry Never done Depression Screening Never done BP Controlled (<130/80) Never done Hepatitis B Vaccine(1 of 3 - 19+ 3-dose series) Never done Covid-19 Vaccine(2022- season) Never done Influenza Vaccine(1) due on 01/15/2024 Annual PCP Team Chronic Disease Visit due on 12/05/2024 DTaP,Tdap,Td Vaccine(11 - Td or Tdap) due on 09/23/2025 Cervical Cancer Screening due on 10/17/2028 Hepatitis C Screening Completed HIV Screening Completed HPV Vaccine Aged Out ASSESSMENT/PLAN: 1. Acute conjunctivitis of both eyes, unspecified acute conjunctivitis type - ICD9: 372.00, ICD10: H10.33 - see medication orders - course and contagiousness issues discussed, including hand washing. - Instructed to call if high fever, development of periorbital redness or swelling, eye pain, visual changes, concerns or if symptoms persist. - POLYMYXIN B SULFATE 10,000 UNIT-TRIMETHOPRIM 1 MG/ML EYE DROPS - if not improving with ATB eye drops would use OTC allergy eye drops Soraida Gardner APRN.UI ARCHITECT Prescription instructions reviewed with patient as applicable. Patient advised if symptoms do not improve or if symptoms worsen sooner, to contact their primary care physician. Potential red flag symptoms discussed with the patient. Reviewed appropriate action plan to take if red flag symptoms occur. Patient agreeable to treatment plan. Medical Decision Making: Problems: Low: Acute, uncomplicated illness or injury Risk: Moderate: Drug management Medical Decision Making Level: 3 - Low [facility] Telephone encounter Note * Telephone Encounter - Emeli Chiu LPN - 12/07/2023 4:32 PM EDT ZIO form has been completed and faxed back to have monitor mailed to pt's home. Emeli Chiu LPN [facility]07-[facility] Miscellaneous Notes* Telephone Encounter - Emeli Chiu LPN - 12/07/2023 4:32 PM EDT ZIO form has been completed and faxed back to have monitor mailed to pt's home. Emeli Chiu LPN * Telephone Encounter - Ofelia Delaney APRN.CNP - 12/07/2023 3:48 PM EDT Order placed. Please arrange to have the monitor sent to patient. Ofelia Delaney APRN.CNP * Telephone Encounter - Elizabeth Moreno RN - 12/07/2023 1:26 PM EDT Patient phone to let Miles Delaney know, she called [employer] and found out insurance covers all accept $105 of the Zio. She wants to go ahead with it, and would like to have it sent to her house. Please phone patient with any questions. documented in [facility] encounterGe[facility]07-[facility]24 Telephone encounter Note * Telephone Encounter - Ofelia Delaney APRN.CNP - 12/07/2023 3:48 PM EDT Order placed. Please arrange to have the monitor sent to patient. Ofelia Delaney APRN.CNP [facility]07-24-[facility] Telephone encounter Note* Telephone Encounter - Elizabeth Moerno RN - 12/07/2023 1:26 PM EDT Patient phone to let Miles Delaney know, she called [employer] and found out insurance covers all accept $105 of the Zio. She wants to go ahead with it, and would like to have it sent to her house. Please phone patient with any questions. [facility] Inst[facility] * Patient Instructions* Ofelia Dleaney APRN.CNP - 12/06/2023 4:15 PM EDT Keep diet bland until stomach is better. Stay well hydrated. Try the probiotics. Check with the [employer] customer service re: coverage and then let us know if it is okay to proceed and if you want to return to have the monitor placed or if you want us to mail it to you. documented [facility] encounterGe[facility]07-[facility]-2024 [facility] History of Present illness Narrative* Ofelia Delaney APRN.MARISELA - 12/06/2023 3:53 PM EDT This is a 33 year old female who presents today with: Patient presents with: Follow Up HISTORY OF PRESENT ILLNESS: Maria Elena Garay is a 33 year old female. Patient presents with: Follow Up Pt presents today to follow-up. Refers that was having some diarrhea. Refers that isn't as bad as it was, but still there. Refers that she tried the lomotil and this actually backed her up. Stools today 2-3 times-- not watery, not formed. Will go from constipated -- and then things will just let loose and have the diarrhea. Hasn't done stool cultures. Usually has some nausea. Last temp she checked was 99.7. She doesn't really watch diet or been following a bland diet. She has been eating yogurt. She does watch dairy. Two nights ago, the palpitations were keeping her up. Refers that she is now interested in the doing the zio. Refers that they are happening more frequently in nature. PAST MEDICAL HISTORY: PAST MEDICAL HISTORY Diagnosis Date Abnormal Pap smear of cervix ASCUS Acute appendicitis 04/2021 Allergic rhinitis, cause unspecified Anxiety 03/17/2010 buspar Arthritis Asthma Concussion 2007 Dysmenorrhea Excessive or frequent menstruation Heavy periods Iron deficiency anemia due to chronic blood loss 11/08/2023 Iron malabsorption 11/08/2023 Menorrhagia with regular cycle 11/08/2023 Mental disorder Migraine, unspecified, with intractable migraine, so stated, without mention of status migrainosus Migraine Ovarian cyst resolved Pain in joint, pelvic region and thigh 07/29/2014 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 Moore LAPSergei SURG CHOLECYSTECTOMY W/CHOLANGIOGRAPHY 02/14/2013 SALPINGECTOMY Bilateral 05/31/2019 B/L Salpingectomy at [facility]-Dr. Moore TONSILLECTOMY HX 03/2018 [facility]-Dr. James TUBAL LIGATION HX 01/13/2016 filshie clips ALLERGIES Compazine [Prochlorperazine Edisylate], Reglan [Metoclopramide Hcl], and Seasonal Allergies MEDICATIONS Current Outpatient Medications Medication Sig pantoprazole DR (PROTONIX) 40 mg tablet TAKE 1 TABLET BY MOUTH TWICE A DAY diphenoxylate-atropine (LOMOTIL) 2.5-0.025 mg per tablet Take 1 tablet by mouth four times a day asneeded for diarrhea for up to 7 days. chlorzoxazone (PARAFON FORTE DSC) 500 mg tablet Take 1 tablet by mouth three times a day as needed. atogepant (QULIPTA) 60 mg tablet Take 1 tablet (60 mg) by mouth once daily. propranolol ER (INDERAL LA) 80 mg 24 hr capsule Take 1 capsule by mouth once daily. gabapentin (NEURONTIN) 600 mg tablet Take 1 tablet by mouth three times a day. ondansetron (ZOFRAN) 4 mg tablet Take 2 tablets by mouth every 8 hours as needed for nausea/vomiting. lisinopril (ZESTRIL) 5 mg tablet Take 1 tablet by mouth once daily. NURTEC ODT 75 mg disintegrating tablet TAKE 1 DISSOLVABLE TABLET BY MOUTH AT MIGRAINE ONSET. TAKE ONLY 1 TABLET PER 24 HOURS. ergocalciferol 50,000 unit capsule (VITAMIN D2, DRISDOL) Take 1 capsule by mouth one time a week. cyclobenzaprine (FLEXERIL) 10 mg tablet Take 1 tablet by mouth three times a day as needed. omeprazole (PRILOSEC) 20 mg capsule Take 1 capsule by mouth two times a day. 1/2 hr before meal. (Patient not taking: Reported on 11/25/2023) traMADol (ULTRAM) 50 mg tablet Take 1 tablet by mouth every 6 hours as needed for pain. albuterol HFA (PROVENTIL HFA, VENTOLIN HFA) 90 mcg/actuation inhaler Inhale 2 Puffs as instructed every 4 hours as needed for wheezing/shortness of breath. as instructed venlafaxine ER (EFFEXOR XR) 150 mg 24 hr capsule Take 1 capsule by mouth once daily. albuterol (PROVENTIL) 2.5 mg /3 mL (0.083 %) nebulizer solution Use 3 mL via nebulizer every 4 hours as needed. Use over 5-15minutes. Cholecalciferol, Vitamin D3, 125 mcg (5,000 unit) cap Take 1 capsule by mouth once daily. Leg Brace (YAO KNEE BRACE) misc Sleeve brace left knee No current facility-administered medications for this visit. FAMILY HISTORY Problem Relation Age of Onset Cancer Mother thyroid, skin. - precancerous cervical cells on pap smear Hypertension Mother Thyroid Cancer Mother Migraines Mother Skin Cancer Mother COPD Father Breast Cancer Maternal Grandmother Hypertension Maternal Grandmother Asthma Maternal Grandmother Anxiety disorder Maternal Grandmother Bipolar disorder Maternal Grandmother Heart Maternal Grandfather Ischemic Heart Disease Maternal Grandfather stomach, ovarian. Heart Attack Paternal Grandfather Ovarian cancer Other Great Grandmother Social History Tobacco Use Smoking status: Never Smokeless tobacco: Never Vaping Use Vaping Use: Former Substances: Nicotine, Flavoring Substance Use Topics Alcohol use: Yes Comment: 1 nightout every 2 months- 2-3 drinks-None since Drug use: No EXAM: BP 144/96 Pulse 95 Resp 16 Wt 107.9 kg (237 lb 12.8 oz) LMP 10/23/2023 SpO2 97% BMI 40.82 kg/m PHYSICAL EXAM: General Appearance: Well appearing, alert, in no acute distress, well-hydrated, well nourished.. Skin: Skin color, texture, turgor normal, no suspicious rashes or lesions. Head: Normocephalic, Extraocular movements are intact. . Lungs: Lungs clear to auscultation. No wheezing, rhonchi, rales.. Heart: RRR without murmur, gallop, or rubs. No ectopy. Neurologic: Gait normal. ASSESSMENT/PLAN: 1. Diarrhea, unspecified type - ICD9: 787.91, ICD10: R19.7 (primary diagnosis) Encouraged to stick to a bland diet as stomach improved. Can start probiotics. Avoid dairy. - FLORAJEN ACIDOPHILUS 20 BILLION CELL CAPSULE 2. Palpitations - ICD9: 785.1, ICD10: R00.2 She is interested in pursuing the event monitor. [employer] service number provided for patient to ensure coverage. Encouraged to let us know, then if okay to proceed and if she wants to return for placement or havemailed to her. Discussed treatment plan and patient voices understanding. Patient's questions answered appropriately. Medications and potential side effects were discussed and patient voices understanding. Return to the office as scheduled or as needed for worsening/no improvement. Ofelia Delaney APRN.UI ARCHITECT documented [facility] encounterGe[facility]07-[facility]24 Telephone encounter Note * Telephone Encounter - Zaira Davila LPN - 11/30/2023 11:05 AM EDT Pt read youcalc message. Zaira Davila LPN [facility]07-17-2024 Miscellaneous Notes* Telephone Encounter - Zaira Davila LPN - 11/30/2023 11:05 AM EDT Pt read [employer] message. Zaira Davila LPN * Telephone Encounter - Karen Bunn LPN - 11/28/2023 10:14 AM EDT Left message on voicemail for pt. To check her my chart for results of recent lab tests. Karen Bunn LPN * Telephone Encounter - Karen Bunn LPN - 11/28/2023 7:18 AM EDT ----- Message from Ashley Carmen DO sent at 11/27/2023 1:26 PM EDT ----- Can let her know testing for von Willebrand disease negative. Platelet count came down very nicely with the first few iron administrations. Complete IV iron. documented in this encounterGe[facility]07-[facility]-2024 Telephone encounter Note * Telephone Encounter - Annette Simms LISW - 11/29/2023 10:32 AM EDT Pt noted on [facility] 1st time treatment report. Pt has a non-oncology regimen. No social work followup indicated. Anne Warner [facility]07-16-2024 Miscellaneous Notes* Telephone Encounter - Annette Simms LISW - 11/29/2023 10:32 AM EDT Pt noted on [facility] 1st time treatment report. Pt has a non-oncology regimen. No social work followup indicated. Anne Warner documented in [facility] encounterGe[facility]07-[facility]-2024 Telephone encounter Note * Telephone Encounter - Karen Bunn LPN - 11/28/2023 10:14 AM EDT Left message on voicemail for pt. To check her my chart for results of recent lab tests. Karen Bunn LPN [facility]07-15-[facility] Telephone encounter Note* Telephone Encounter - Karen Bunn LPN - 11/28/2023 7:18 AM EDT ----- Message from Ashley Carmen DO sent at 11/27/2023 1:26 PM EDT ----- Can let her know testing for von Willebrand disease negative. Platelet count came down very nicely with the first few iron administrations. Complete IV iron. [facility]07-[facility] History of Present illness Narrative* Jes Fuentes MD - 11/25/2023 8:20 AM EDT Patient presents with: Follow Up HPI: Patient presents today for office visit for follow up. Saw Maria Elena Painting on 11/24/23 with complaints of diarrhea. Has had loose watery stools since Tuesday11/19/23. No appetite. Occ nausea and vomiting. Reports fevers anywhere from 99.6 to 101.5. Started on Lomotil. Was at a [employer] around the time it started Does work at a [employer]. No recent antibiotics. No travel hx. Drinking well. Keeping fluids well. No abd pain. Complains of severe dry mouth and dry lips. Refers to feeling dehydrated. Continues on Pantoprazole 40 mg BID for Eosinophilic esophagitis Follows with Dr. Loco Still with aphasia nausea and some epigastric discomfort. Recently saw OBGYN for ongoing pelvic pain for several months. Pain is intermittent and random. Sharp and crampy. Option given for pelvic floor therapy. Recently had breast imaging for breast pain and a mass. A biopsy has been recommended. Had follow up imaging scheduled for 11/15. Follows with Hem/Onc. Continues with infusions. Follows with Neuro. Hx of migraines. Continues with Botox. Tolerating. Recently started on Qulipta. HTN: Has not taken her Lisinopril all week. Taken off HCTZ and Lisinopril decreased to 5 mg at OV with Madison Laguerre on 09/09/23. Did take her meds this am. Monitors BP occ. Usually readings are good when she takes her med. Denies chest pain Denies shortness of breath No swelling Does have palpitations. Intermittent. Sometimes she has to stop and catch her breath because they can be severe. Has had monitor in the past. Seems be better last few days. Has been there on and off for some time. Some dizziness over the last week. Latest Ref Rng 11/24/2023 Protein, Total 6.3 - 8.0 g/dL 6.7 Albumin 3.9 - 4.9 g/dL 4.2 Calcium 8.5 - 10.2 mg/dL 9.6 Bilirubin, Total 0.2 - 1.3 mg/dL 0.2 Alkaline Phosphatase 34 - 123 U/L 82 AST 13 - 35 U/L 18 ALT 7 - 38 U/L 37 Glucose 74 - 99 mg/dL 116 (H) BUN 7 - 21 mg/dL 7 Creatinine 0.58 - 0.96 mg/dL 0.69 Sodium 136 - 144 mmol/L 137 Potassium 3.7 - 5.1 mmol/L 4.2 Chloride 98 - 107 mmol/L 101 CO2 22 - 30 mmol/L 28 Anion Gap 8 - 15 mmol/L 8 eGFR >=60 mL/min/1.73m 118 Legend: (H) High MEDICATIONS: Current Outpatient Medications Medication Sig pantoprazole DR (PROTONIX) 40 mg tablet TAKE 1 TABLET BY MOUTH TWICE A DAY diphenoxylate-atropine (LOMOTIL) 2.5-0.025 mg per tablet Take 1 tablet by mouth four times a day asneeded for diarrhea for up to 7 days. chlorzoxazone (PARAFON FORTE DSC) 500 mg tablet Take 1 tablet by mouth three times a day as needed. atogepant (QULIPTA) 60 mg tablet Take 1 tablet (60 mg) by mouth once daily. propranolol ER (INDERAL LA) 80 mg 24 hr capsule Take 1 capsule by mouth once daily. gabapentin (NEURONTIN) 600 mg tablet Take 1 tablet by mouth three times a day. ondansetron (ZOFRAN) 4 mg tablet Take 2 tablets by mouth every 8 hours as needed for nausea/vomiting. lisinopril (ZESTRIL) 5 mg tablet Take 1 tablet by mouth once daily. NURTEC ODT 75 mg disintegrating tablet TAKE 1 DISSOLVABLE TABLET BY MOUTH AT MIGRAINE ONSET. TAKE ONLY 1 TABLET PER 24 HOURS. ergocalciferol 50,000 unit capsule (VITAMIN D2, DRISDOL) Take 1 capsule by mouth one time a week. cyclobenzaprine (FLEXERIL) 10 mg tablet Take 1 tablet by mouth three times a day as needed. traMADol (ULTRAM) 50 mg tablet Take 1 tablet by mouth every 6 hours as needed for pain. albuterol HFA (PROVENTIL HFA, VENTOLIN HFA) 90 mcg/actuation inhaler Inhale 2 Puffs as instructed every 4 hours as needed for wheezing/shortness of breath. as instructed venlafaxine ER (EFFEXOR XR) 150 mg 24 hr capsule Take 1 capsule by mouth once daily. albuterol (PROVENTIL) 2.5 mg /3 mL (0.083 %) nebulizer solution Use 3 mL via nebulizer every 4 hours as needed. Use over 5-15minutes. Cholecalciferol, Vitamin D3, 125 mcg (5,000 unit) cap Take 1 capsule by mouth once daily. Leg Brace (YAO KNEE BRACE) misc Sleeve brace left knee omeprazole (PRILOSEC) 20 mg capsule Take 1 capsule by mouth two times a day. 1/2 hr before meal. (Patient not taking: Reported on 11/25/2023) No current facility-administered medications for this visit. ALLERGIES: ALLERGIES Allergen Reactions Compazine [Prochlor* Other: See Comments Akathisia with IV Compazine Reglan [Metoclopram* Other: See Comments Akathisia with IV Reglan Seasonal Allergies Unknown PAST MEDICAL HISTORY Diagnosis Date Abnormal Pap smear of cervix ASCUS Acute appendicitis 04/2021 Allergic rhinitis, cause unspecified Anxiety 03/17/2010 buspar Arthritis Asthma Concussion 2008 Dysmenorrhea Excessive or frequent menstruation Heavy periods Iron deficiency anemia due to chronic blood loss 11/08/2023 Iron malabsorption 11/08/2023 Menorrhagia with regular cycle 11/08/2023 Mental disorder Migraine, unspecified, with intractable migraine, so stated, without mention of status migrainosus Migraine Ovarian cyst resolved Pain in joint, pelvic region and thigh 07/29/2014 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 Oscar [place] SURG CHOLECYSTECTOMY W/CHOLANGIOGRAPHY 02/14/2013 SALPINGECTOMY Bilateral 05/31/2019 B/L Salpingectomy at [facility]-Dr. Moore TONSILLECTOMY HX 03/2018 [facility]-Dr. James TUBAL LIGATION HX 01/13/2016 filshie clips FAMILY HISTORY Problem Relation Age of Onset Cancer Mother thyroid, skin. - precancerous cervical cells on pap smear Hypertension Mother Thyroid Cancer Mother Migraines Mother Skin Cancer Mother COPD Father Breast Cancer Maternal Grandmother Hypertension Maternal Grandmother Asthma Maternal Grandmother Anxiety disorder Maternal Grandmother Bipolar disorder Maternal Grandmother Heart Maternal Grandfather Ischemic Heart Disease Maternal Grandfather stomach, ovarian. Heart Attack Paternal Grandfather Ovarian cancer Other Great Grandmother Social History Tobacco Use Smoking status: Never Smokeless tobacco: Never Vaping Use Vaping Use: Former Substances: Nicotine, Flavoring Substance Use Topics Alcohol use: Yes Comment: 1 nightout every 2 months- 2-3 drinks-None since Drug use: No Reviewed current medications, allergies, past medical history, surgical history, family history andsocial history today. REVIEW OF SYSTEMS As above. HEALTH MAINTENANCE: Reviewed health maintenance issues today and recommended the following in detail. Spirometry Never done BP Controlled (<130/80) Never done Hepatitis B Vaccine(1 of 3 - 19+ 3-dose series) Never done Covid-19 Vaccine(2022-) Never done Behavioral Health Screening Never done VITALS: BP 120/66 Pulse 89 Temp 36.8 C (98.3 F) Ht 162.6 cm (5' 4) Wt 109.3 kg (241 lb) LMP 10/23/2023 SpO2 95% BMI 41.37 kg/m Last 4 Encounter Wt Readings: Date: Wt: 11/14/2023 110.6 kg (243 lb 12.8 oz) 11/04/2023 112 kg (247 lb) 10/26/2023 112 kg (246 lb 14.6 oz) 10/21/2023 111.1 kg (245 lb) PHYSICAL EXAMINATION: General appearance: Well appearing, alert, in no acute distress, well-hydrated, well nourished. Skin: Skin color, texture, turgor normal, no suspicious rashes or lesions Head: Normocephalic, no masses, lesions, tenderness or abnormalities Lungs: Lungs clear to auscultation. No wheezing, rhonchi, rales Heart: RRR without murmur, gallop, or rubs. No ectopy Abdomen: soft, bs positive. Mild generalized tenderness. No rebound. Extremities: No deformities, edema, skin discoloration, clubbing or cyanosis. Good capillary refill. ASSESSMENT/PLAN: 1. Hyperglycemia - ICD9: 790.29, ICD10: R73.9 (primary diagnosis) - follow labs. - HEMOGLOBIN A1C 2. Diarrhea, unspecified type - ICD9: 787.91, ICD10: R19.7 - check stool studies. Avoid dairy products. Red flags for re-assessment reviewed with patient in detail. - C. DIFFICILE PCR - OVA + PARA MICROSCOPIC - ENTERIC BACTERIAL PANEL BY PCR - FECAL LACTOFERRIN/LEUKOCYTES 3. Thrombocytosis - ICD9: 238.71, ICD10: D75.839 - follow with Dr Carmen. 4. Hypertension, essential - ICD9: 401.9, ICD10: I10 - Controlled - Continue current medications - COMPLETE BLOOD COUNT AND DIFFERENTIAL - BASIC METABOLIC PANEL - MAGNESIUM 5. Palpitations - ICD9: 785.1, ICD10: R00.2 - declines repeat zio. Will follow and check labs. - THYROID STIMULATING HORMONE - ECG COMPLETE - MAGNESIUM Jes Fuentes MD RTO in one week documented in [facility]24 [facility] Miscellaneous Notes* Telephone Encounter - Radhika Burks RN - 11/25/2023 8:13 AM EDT Pt called and is notified of providers results. Pt voices understanding. Radhika Burks RN * Telephone Encounter - Maria Elena Painting APRN.[facility] - 11/24/2023 4:44 PM EDT Please let patient know their labs are normal. documented in this encounterGe[facility]07-[facility]-2024 Telephone encounter Note * Telephone Encounter - Radhika Burks RN - 11/25/2023 8:13 AM EDT Pt called and is notified of providers results. Pt voices understanding. Radhika Burks RN [facility]07-11-2024 Telephone encounter Note* Telephone Encounter - Maria Elena Painting APRN.CNP - 11/24/2023 4:44 PM EDT Please let patient know their labs are normal. [facility]07-11-[facility]24 [facility]07-[facility] History of Present illness Narrative* Maria Elena Painting APRN.CNP - 11/24/2023 3:36 PM EDT Chief Complaint Patient presents with: Diarrhea HPI Maria Elena Garay is a 33 year old female who presents here today for Above Complaints.. Patient presents for 6 day history of diarrhea. Patient reports she has also has occasional nausea and vomiting. Fever 100.2. tmax 101.5. Patient reports intermittent cramping pain relieved with BM. Past medical history, appointments, medications, allergies reviewed. 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 Menorrhagia with regular cycle 11/08/2023 Mental disorder Migraine, unspecified, with intractable migraine, so stated, without mention of status migrainosus Migraine Ovarian cyst resolved Pain in joint, pelvic region and thigh 07/29/2014 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 Moore LAPSergei SURG CHOLECYSTECTOMY W/CHOLANGIOGRAPHY 02/14/2013 SALPINGECTOMY Bilateral 05/31/2019 B/L Salpingectomy at [facility]-Dr. Moore TONSILLECTOMY HX 03/2018 [facility]-Dr. James TUBAL LIGATION HX 01/13/2016 filshie clips Family History FAMILY HISTORY Problem Relation Age of Onset Cancer Mother thyroid, skin. - precancerous cervical cells on pap smear Hypertension Mother Thyroid Cancer Mother Migraines Mother Skin Cancer Mother COPD Father Breast Cancer Maternal Grandmother Hypertension Maternal Grandmother Asthma Maternal Grandmother Anxiety disorder Maternal Grandmother Bipolar disorder Maternal Grandmother Heart Maternal Grandfather Ischemic Heart Disease Maternal Grandfather stomach, ovarian. Heart Attack Paternal Grandfather Ovarian cancer Other Great Grandmother Patient Allergies ALLERGIES Allergen Reactions Compazine [Prochlor* Other: See Comments Akathisia with IV Compazine Reglan [Metoclopram* Other: See Comments Akathisia with IV Reglan Seasonal Allergies Unknown Current Medications Current Outpatient Medications on File Prior to Visit Medication Sig pantoprazole DR (PROTONIX) 40 mg tablet Take 1 tablet by mouth two times a day. chlorzoxazone (PARAFON FORTE DSC) 500 mg tablet Take 1 tablet by mouth three times a day as needed. atogepant (QULIPTA) 60 mg tablet Take 1 tablet (60 mg) by mouth once daily. propranolol ER (INDERAL LA) 80 mg 24 hr capsule Take 1 capsule by mouth once daily. gabapentin (NEURONTIN) 600 mg tablet Take 1 tablet by mouth three times a day. ondansetron (ZOFRAN) 4 mg tablet Take 2 tablets by mouth every 8 hours as needed for nausea/vomiting. lisinopril (ZESTRIL) 5 mg tablet Take 1 tablet by mouth once daily. NURTEC ODT 75 mg disintegrating tablet TAKE 1 DISSOLVABLE TABLET BY MOUTH AT MIGRAINE ONSET. TAKE ONLY 1 TABLET PER 24 HOURS. ergocalciferol 50,000 unit capsule (VITAMIN D2, DRISDOL) Take 1 capsule by mouth one time a week. cyclobenzaprine (FLEXERIL) 10 mg tablet Take 1 tablet by mouth three times a day as needed. omeprazole (PRILOSEC) 20 mg capsule Take 1 capsule by mouth two times a day. 1/2 hr before meal. traMADol (ULTRAM) 50 mg tablet Take 1 tablet by mouth every 6 hours as needed for pain. albuterol HFA (PROVENTIL HFA, VENTOLIN HFA) 90 mcg/actuation inhaler Inhale 2 Puffs as instructed every 4 hours as needed for wheezing/shortness of breath. as instructed venlafaxine ER (EFFEXOR XR) 150 mg 24 hr capsule Take 1 capsule by mouth once daily. albuterol (PROVENTIL) 2.5 mg /3 mL (0.083 %) nebulizer solution Use 3 mL via nebulizer every 4 hours as needed. Use over 5-15minutes. Cholecalciferol, Vitamin D3, 125 mcg (5,000 unit) cap Take 1 capsule by mouth once daily. Leg Brace (YAO KNEE BRACE) misc Sleeve brace left knee No current facility-administered medications on file prior to visit. Social History Social History Tobacco Use Smoking status: Never Smokeless tobacco: Never Vaping Use Vaping Use: Former Substances: Nicotine, Flavoring Substance Use Topics Alcohol use: Yes Comment: 1 nightout every 2 months- 2-3 drinks-None since Drug use: No Review of Symptoms REVIEW OF SYSTEMS SEE HPI EXAM: BP 142/101 Pulse 106 Temp 37.9 C (100.2 F) Resp 14 Wt 109.8 kg (242 lb) LMP 10/23/2023 BMI 41.54 kg/m General Appearance: Well appearing, alert, in no acute distress, well-hydrated, well nourished. Abdomen: Positive findings: tenderness mild epigastric, hyperactive bowel sounds. Health Maintenance List Spirometry Never done BP Controlled (<130/80) Never done Hepatitis B Vaccine(1 of 3 - 19+ 3-dose series) Never done Covid-19 Vaccine(2022-24 season) Never done Behavioral Health Screening Never done Influenza Vaccine(1) due on 01/15/2024 Annual PCP Team Chronic Disease Visit due on 07/06/2024 DTaP,Tdap,Td Vaccine(11 - Td or Tdap) due on 09/23/2025 Cervical Cancer Screening due on 10/17/2028 Hepatitis C Screening Completed HIV Screening Completed HPV Vaccine Aged Out ASSESSMENT/PLAN: 1. Gastroenteritis - ICD9: 558.9, ICD10: K52.9 - DIPHENOXYLATE-ATROPINE 2.5 MG-0.025 MG TABLET - COMPREHENSIVE METABOLIC PANEL Maria Elena Painting APRN.UI ARCHITECT PDMP reviewed. Patient requested and refilled prescriptions appropriately. No suspicious activity noted. documented in this encounterGe[facility]07-08-2024 NoteHNO ID: [id number] Author: KELIN CHANG RN Service: ? Author Type: Registered Nurse Type: Progress Notes Filed: 11/21/2023 15:06 Note Text: Observation 30 minutes post infusion; denies any complaints.[facility]07-[facility] History of Present illness Narrative* Kelin Chang RN - 11/21/2023 2:52 PM EDT Observation 30 minutes post infusion; denies any complaints. documented in this encounterGe[facility]07-03-2024 NoteIMPRESSION: INCOMPLETE: NEEDS ADDITIONAL IMAGING EVALUATION The possible asymmetry in the right breast outer region seen on the craniocaudal view only is probably benign. This changes configuration on the off angle CC views and effaces on the spot compression view, suggestive of benign etiology as overlapping fibroglandular tissue. If no sonographic correlate identified, then follow up in 6 months will be recommended to document stability as this was previously recommended for biopsy. The regional layering punctate calcifications in the left breast upper outer aspect likely represent milk of calcium and are probably benign. A follow-up mammogram in 6 months is recommended. There is no abnormality seen in the right breast to correspond with the palpable abnormality, however, ultrasound is recommended. There is no abnormality seen in the left breast to correspond with the pain, however, ultrasound is recommended. LIMITED ULTRASOUND OF LEFT BREAST: 11/16/2023 RESULT: Comparison is made to exams dated: 11/09/2023 mammogram, 08/31/2017 mammogram, 11/09/2023 ultrasound, and 11/09/2023 [facility]. Real-time ultrasound of the left breast was performed. Culver scale images of the real-time examination were reviewed. Targeted scanning of the areas of pain at 1:00 7 cmfn and 2:00 6 cmfn in the left breast was performed. No focal or suspicious sonographic findings were seen. IMPRESSION: NEGATIVE There is no sonographic evidence of malignancy. Follow up of the areas of pain should be based on clinical assessment. LIMITED ULTRASOUND OF RIGHT BREAST: 11/16/2023 RESULT: Comparison is made to exams dated: 11/09/2023 mammogram, 08/31/2017 mammogram, 11/09/2023 ultrasound, and 11/09/2023 [facility]. Real-time ultrasound of the right breast was performed. Culver scale images of the real-time examination were reviewed. Targeted scanning of the area of palpable concern in the upper outer right breast and area of mammographic concern along 9:00 was performed. There is a benign oil cyst seen at the area of palpable concern at 12:00 5 cmfn measuring 0.4 x 0.3 x 0.3 cm. Additional incidental benign oil cysts are see at 1:00 5 cmfn and 2:00 5 cmfn. No suspicious sonographic findings were seen. No solid or cystic mass along 9:00 at site of possible mammographic asymmetry. IMPRESSION: BENIGN FINDING There is no sonographic evidence of malignancy. Oil cysts in the right breast are benign. Follow up of the area of palpable concern should be based on clinical assessment. No abnormality in the right breast to correlate to the possible asymmetry identified on the mammogram, however, follow up mammogram in 6 months is recommended to document stability. A follow-up mammogram in 6 months is recommended to demonstrate stability. SUMMARY: Patient to be scheduled for bilateral diagnostic mammogram in 6 months. Socorro downing/bere:11/16/2023 11:52:05 Multiple national specialty organizations have released breast cancer screening guidelines for women at average risk for developing breast cancer - guidelines that are based on both evidence and opinion, yet differ on when to start and how often to screen for breast cancer. With representation from Breast Imaging, Internal Medicine, Women's Health, Family Medicine, and Medical/Surgical Oncology, the [facility] has carefully reviewed the data and reached the following consensus: 1) All women should engage in shared decision-making with their providers to decide when to start and how often to screen; 2) All women should have the opportunity to start screening mammography at age 40; 3) For women ages 45-55, we recommend annual screening mammograms; 4) For women ages 55 and over, we support both the transition from an annual to a biennial interval if this aligns more with patient's values and preferences, or continuation with annual screening; 5) All women should discuss with their providers when to stop screening mammograms. Yard Worker(s): RT Cristy(R)(M), [facility]; Thais Romano, [facility] [place] OVERALL STUDY BIRADS: 3 Probably benign finding - short term interval follow-up recommended Drying Tumbler Operator: Bere Transcribe Date/Time: Nov 16 2023 9:33A Dictated by : SOCORRO FRIEND MD This examination was interpreted and the report reviewed and electronically signed by: SOCORRO FRIEND MD on Nov 16 2023 11:52AM [facility] DIVISION OF [id number] NoteIMPRESSION: INCOMPLETE: NEEDS ADDITIONAL IMAGING EVALUATION The possible asymmetry in the right breast outer region seen on the craniocaudal view only is probably benign. This changes configuration on the off angle CC views and effaces on the spot compression view, suggestive of benign etiology as overlapping fibroglandular tissue. If no sonographic correlate identified, then follow up in 6 months will be recommended to document stability as this was previously recommended for biopsy. The regional layering punctate calcifications in the left breast upper outer aspect likely represent milk of calcium and are probably benign. A follow-up mammogram in 6 months is recommended. There is no abnormality seen in the right breast to correspond with the palpable abnormality, however, ultrasound is recommended. There is no abnormality seen in the left breast to correspond with the pain, however, ultrasound is recommended. LIMITED ULTRASOUND OF LEFT BREAST: 11/16/2023 RESULT: Comparison is made to exams dated: 11/09/2023 mammogram, 08/31/2017 mammogram, 11/09/2023 ultrasound, and 11/09/2023 ultrasound - [facility]. Real-time ultrasound of the left breast was performed. Culver scale images of the real-time examination were reviewed. Targeted scanning of the areas of pain at 1:00 7 cmfn and 2:00 6 cmfn in the left breast was performed. No focal or suspicious sonographic findings were seen. IMPRESSION: NEGATIVE There is no sonographic evidence of malignancy. Follow up of the areas of pain should be based on clinical assessment. LIMITED ULTRASOUND OF RIGHT BREAST: 11/16/2023 RESULT: Comparison is made to exams dated: 11/09/2023 mammogram, 08/31/2017 mammogram, 11/09/2023 ultrasound, and 11/09/2023 ultrasound - [facility]. Real-time ultrasound of the right breast was performed. Culver scale images of the real-time examination were reviewed. Targeted scanning of the area of palpable concern in the upper outer right breast and area of mammographic concern along 9:00 was performed. There is a benign oil cyst seen at the area of palpable concern at 12:00 5 cmfn measuring 0.4 x 0.3 x 0.3 cm. Additional incidental benign oil cysts are see at 1:00 5 cmfn and 2:00 5 cmfn. No suspicious sonographic findings were seen. No solid or cystic mass along 9:00 at site of possible mammographic asymmetry. IMPRESSION: BENIGN FINDING There is no sonographic evidence of malignancy. Oil cysts in the right breast are benign. Follow up of the area of palpable concern should be based on clinical assessment. No abnormality in the right breast to correlate to the possible asymmetry identified on the mammogram, however, follow up mammogram in 6 months is recommended to document stability. A follow-up mammogram in 6 months is recommended to demonstrate stability. SUMMARY: Patient to be scheduled for bilateral diagnostic mammogram in 6 months. Socorro downing/bere:11/16/2023 11:52:05 Multiple national specialty organizations have released breast cancer screening guidelines for women at average risk for developing breast cancer - guidelines that are based on both evidence and opinion, yet differ on when to start and how often to screen for breast cancer. With representation from Breast Imaging, Internal Medicine, Women's Health, Family Medicine, and Medical/Surgical Oncology, the [facility] has carefully reviewed the data and reached the following consensus: 1) All women should engage in shared decision-making with their providers to decide when to start and how often to screen; 2) All women should have the opportunity to start screening mammography at age 40; 3) For women ages 45-55, we recommend annual screening mammograms; 4) For women ages 55 and over, we support both the transition from an annual to a biennial interval if this aligns more with patient's values and preferences, or continuation with annual screening; 5) All women should discuss with their providers when to stop screening mammograms. Yard Worker(s): RT Cristy(Miguelito)(M), [facility]; Thais Romano, [facility] [place] OVERALL STUDY BIRADS: 3 Probably benign finding - short term interval follow-up recommended Drying Tumbler Operator: Bere Transcribe Date/Time: Nov 16 2023 9:33A Dictated by : SOCORRO FRIEND MD This examination was interpreted and the report reviewed and electronically signed by: SOCORRO FRIEND MD on Nov 16 2023 11:52AM [facility] DIVISION OF [id number] NoteIMPRESSION: INCOMPLETE: NEEDS ADDITIONAL IMAGING EVALUATION The possible asymmetry in the right breast outer region seen on the craniocaudal view only is probably benign. This changes configuration on the off angle CC views and effaces on the spot compression view, suggestive of benign etiology as overlapping fibroglandular tissue. If no sonographic correlate identified, then follow up in 6 months will be recommended to document stability as this was previously recommended for biopsy. The regional layering punctate calcifications in the left breast upper outer aspect likely represent milk of calcium and are probably benign. A follow-up mammogram in 6 months is recommended. There is no abnormality seen in the right breast to correspond with the palpable abnormality, however, ultrasound is recommended. There is no abnormality seen in the left breast to correspond with the pain, however, ultrasound is recommended. LIMITED ULTRASOUND OF LEFT BREAST: 11/16/2023 RESULT: Comparison is made to exams dated: 11/09/2023 mammogram, 08/31/2017 mammogram, 11/09/2023 ultrasound, and 11/09/2023 ultrasound - [facility]. Real-time ultrasound of the left breast was performed. Culver scale images of the real-time examination were reviewed. Targeted scanning of the areas of pain at 1:00 7 cmfn and 2:00 6 cmfn in the left breast was performed. No focal or suspicious sonographic findings were seen. IMPRESSION: NEGATIVE There is no sonographic evidence of malignancy. Follow up of the areas of pain should be based on clinical assessment. LIMITED ULTRASOUND OF RIGHT BREAST: 11/16/2023 RESULT: Comparison is made to exams dated: 11/09/2023 mammogram, 08/31/2017 mammogram, 11/09/2023 ultrasound, and 11/09/2023 [facility]. Real-time ultrasound of the right breast was performed. Culver scale images of the real-time examination were reviewed. Targeted scanning of the area of palpable concern in the upper outer right breast and area of mammographic concern along 9:00 was performed. There is a benign oil cyst seen at the area of palpable concern at 12:00 5 cmfn measuring 0.4 x 0.3 x 0.3 cm. Additional incidental benign oil cysts are see at 1:00 5 cmfn and 2:00 5 cmfn. No suspicious sonographic findings were seen. No solid or cystic mass along 9:00 at site of possible mammographic asymmetry. IMPRESSION: BENIGN FINDING There is no sonographic evidence of malignancy. Oil cysts in the right breast are benign. Follow up of the area of palpable concern should be based on clinical assessment. No abnormality in the right breast to correlate to the possible asymmetry identified on the mammogram, however, follow up mammogram in 6 months is recommended to document stability. A follow-up mammogram in 6 months is recommended to demonstrate stability. SUMMARY: Patient to be scheduled for bilateral diagnostic mammogram in 6 months. Socorro downing/bere:11/16/2023 11:52:05 Multiple national specialty organizations have released breast cancer screening guidelines for women at average risk for developing breast cancer - guidelines that are based on both evidence and opinion, yet differ on when to start and how often to screen for breast cancer. With representation from Breast Imaging, Internal Medicine, Women's Health, Family Medicine, and Medical/Surgical Oncology, the [facility] has carefully reviewed the data and reached the following consensus: 1) All women should engage in shared decision-making with their providers to decide when to start and how often to screen; 2) All women should have the opportunity to start screening mammography at age 40; 3) For women ages 45-55, we recommend annual screening mammograms; 4) For women ages 55 and over, we support both the transition from an annual to a biennial interval if this aligns more with patient's values and preferences, or continuation with annual screening; 5) All women should discuss with their providers when to stop screening mammograms. Yard Worker(s): ALVARO Muniz)(M), [facility]; Thais Romano, [facility] OVERALL STUDY BIRADS: 3 Probably benign finding - short term interval follow-up recommended Drying Tumbler Operator: Bere Transcribe Date/Time: Nov 16 2023 9:33A Dictated by : SOCORRO FRIEND MD This examination was interpreted and the report reviewed and electronically signed by: SOCORRO FRIEND MD on Nov 16 2023 11:52AM [facility] DIVISION OF [id number] History of Present illness Narrative* Radhika Wu RT(R) - 11/16/2023 9:15 AM EDT Radiology Service Progress Note PATIENT NAME: Maria Elena Garay DATE OF SERVICE: November 16, 2023 TIME: 10:36 AM PATIENT IDENTITY VERIFICATION COMPLETED USING TWO (2) IDENTIFIERS: Name and Date of confirmedby patient verbally. FALL SCREENING: Has the patient had 2 falls in the last year or 1 fall with injury or currently using an Ambulatory Assistive Device (Walker, Cane, Wheelchair, Crutches, etc.)? No PATIENT GENDER DATA: Female. status: : No status: NO. PATIENT RELEVANT IMPLANT DATA REVIEWED: Not Applicable PATIENT PRESENTS WITH AN IMPLANTABLE OR ATTACHED EARLY INTERVENTIONIST: No RADIOLOGY DEPARTMENT: Mammography PERIPHERAL IV DATA: Not applicable SIGNED BY: RT Isabell(R) November 16, 2023 10:36 AM * Thais Romano RT(R) - 11/16/2023 9:15 AM EDT Radiology Service Progress Note PATIENT NAME: Maria Elena Garay DATE OF SERVICE: November 16, 2023 TIME: 10:37 AM PATIENT IDENTITY VERIFICATION COMPLETED USING TWO (2) IDENTIFIERS: Name and Date of confirmedby patient verbally. FALL SCREENING: Has the patient had 2 falls in the last year or 1 fall with injury or currently using an Ambulatory Assistive Device (Walker, Cane, Wheelchair, Crutches, etc.)? No PATIENT GENDER DATA: Female. status: : No status: N/A PATIENT RELEVANT IMPLANT DATA REVIEWED: Not Applicable PATIENT PRESENTS WITH AN IMPLANTABLE OR ATTACHED EARLY INTERVENTIONIST: No RADIOLOGY DEPARTMENT: Mammography PERIPHERAL IV DATA: Not applicable SIGNED BY: RT [place](R) November 16, 2023 10:37 AM documented in this encounterGe[facility]07-[facility]-2024 [facility] Telephone encounter Note* Telephone Encounter - Sussy Quintana RN - 11/14/2023 8:52 AM EDT Orders faxed. Sussy Quintana RN [facility]07-01-2024 Miscellaneous Notes* Telephone Encounter - Sussy Quintana RN - 11/14/2023 8:52 AM EDT Orders faxed. Sussy Quintana RN * Telephone Encounter - Mary Kumar APRN.CNP - 11/14/2023 7:43 AM EDT Patient opts for pelvic floor therapy at [facility]. Consult placed. Please fax order to [facility]. Mary Kumar APRN.CNP documented in this encounterGeorgetown [facility] Hospital07-[facility]-2024 Telephone encounter Note * Telephone Encounter - Mary Kumar APRN.CNP - 11/14/2023 7:43 AM EDT Patient opts for pelvic floor therapy at [facility]. Consult placed. Please fax order to [facility]. Mary Kumar APRN.CNP [facility] [facility] Instructions* Patient Instructions* Mary Kumar APRN.CNP - 11/14/2023 7:41 AM EDT Keri Phelps does pelvic floor therapy at [place]. [email or web address] - [facility] [email or web address] [email or web address] [employer] [facility] [email or web address] [facility] [email or web address] documented in this encounterGe[facility]24 [facility] History of Present illness Narrative* Mary Kumar APRN.CNP - 11/14/2023 7:14 AM EDT Casting Machine Set Up Operator offered: Patient declines. Maria Elena Garay is a 33 year old female who presents for problem visit of pelvic pain. HPI: Maria Elena's pelvic pain has been present for several months. It is intermittent and random. Shedescribes it as a combination of sharp and crampy. Her pain is severe with periods. Pain increases with extension and rolling to stomach at nigh and bending over. She also has pain with intercourse. Ibuprofen does not provide relief. No concerns for STDs. She has been with her of 13 years. Uses tubal for contraception. She recently had breast imaging for breast pain and a mass. A biopsy has been recommended. She has follow up imaging scheduled for 11/15. Pelvic ultrasound on 10/31/23 RESULT: Uterus: -Size: 9.9 x 7.0 x 4.8 cm -Orientation: Anteverted -Endometrial echo complex: Evaluation of the endometrium was adequate. No endometrial abnormality. The endometrial echo complex measured 0.8 cm. -Cervix: Nabothian cysts are present the largest measuring up to 11 mm with some complexity. 3 mm uterine calcification adjacent to the canal. -Adenomyosis assessment: There are no sonographic findings of adenomyosis. -Fibroids: There are no fibroids. Right Ovary: 3.0 x 3.5 x 1.9 cm - Normal sonographic appearance with physiologic follicles. Left Ovary: 3.1 x 3.5 x 2.5 cm - Normal sonographic appearance with physiologic follicles. Free Fluid: No abnormal free fluid is present. 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 Menorrhagia with regular cycle 11/08/2023 Mental disorder Migraine, unspecified, with intractable migraine, so stated, without mention of status migrainosus Migraine Ovarian cyst resolved Pain in joint, pelvic region and thigh 07/29/2014 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 Oscar [place] SURG CHOLECYSTECTOMY W/CHOLANGIOGRAPHY 02/14/2013 SALPINGECTOMY Bilateral 05/31/2019 B/L Salpingectomy at [facility]-Dr. Moore TONSILLECTOMY HX 03/2018 [facility]-Dr. James TUBAL LIGATION HX 01/13/2016 filshie clips FAMILY HISTORY Problem Relation Age of Onset Cancer Mother thyroid, skin. - precancerous cervical cells on pap smear Hypertension Mother Thyroid Cancer Mother Migraines Mother Skin Cancer Mother COPD Father Breast Cancer Maternal Grandmother Hypertension Maternal Grandmother Asthma Maternal Grandmother Anxiety disorder Maternal Grandmother Bipolar disorder Maternal Grandmother Heart Maternal Grandfather Ischemic Heart Disease Maternal Grandfather stomach, ovarian. Heart Attack Paternal Grandfather Ovarian cancer Other Great Grandmother Social History Tobacco Use Smoking status: Never Smokeless tobacco: Never Vaping Use Vaping Use: Former Substances: Nicotine, Flavoring Substance Use Topics Alcohol use: Yes Comment: 1 nightout every 2 months- 2-3 drinks-None since Drug use: No Current Outpatient Medications Medication Sig pantoprazole DR (PROTONIX) 40 mg tablet Take 1 tablet by mouth two times a day. chlorzoxazone (PARAFON FORTE DSC) 500 mg tablet Take 1 tablet by mouth three times a day as needed. atogepant (QULIPTA) 60 mg tablet Take 1 tablet (60 mg) by mouth once daily. propranolol ER (INDERAL LA) 80 mg 24 hr capsule Take 1 capsule by mouth once daily. gabapentin (NEURONTIN) 600 mg tablet Take 1 tablet by mouth three times a day. ondansetron (ZOFRAN) 4 mg tablet Take 2 tablets by mouth every 8 hours as needed for nausea/vomiting. lisinopril (ZESTRIL) 5 mg tablet Take 1 tablet by mouth once daily. NURTEC ODT 75 mg disintegrating tablet TAKE 1 DISSOLVABLE TABLET BY MOUTH AT MIGRAINE ONSET. TAKE ONLY 1 TABLET PER 24 HOURS. ergocalciferol 50,000 unit capsule (VITAMIN D2, DRISDOL) Take 1 capsule by mouth one time a week. cyclobenzaprine (FLEXERIL) 10 mg tablet Take 1 tablet by mouth three times a day as needed. traMADol (ULTRAM) 50 mg tablet Take 1 tablet by mouth every 6 hours as needed for pain. albuterol HFA (PROVENTIL HFA, VENTOLIN HFA) 90 mcg/actuation inhaler Inhale 2 Puffs as instructed every 4 hours as needed for wheezing/shortness of breath. as instructed venlafaxine ER (EFFEXOR XR) 150 mg 24 hr capsule Take 1 capsule by mouth once daily. albuterol (PROVENTIL) 2.5 mg /3 mL (0.083 %) nebulizer solution Use 3 mL via nebulizer every 4 hours as needed. Use over 5-15minutes. Cholecalciferol, Vitamin D3, 125 mcg (5,000 unit) cap Take 1 capsule by mouth once daily. Leg Brace (YAO KNEE BRACE) misc Sleeve brace left knee omeprazole (PRILOSEC) 20 mg capsule Take 1 capsule by mouth two times a day. 1/2 hr before meal. No current facility-administered medications for this visit. Allergies As of Date: 11/14/2023 Allergen Noted Reaction COMPAZINE [PROCHLORPERAZINE EDISY*07/20/2018 Other: See Comments REGLAN [METOCLOPRAMIDE HCL] 07/20/2018 Other: See Comments SEASONAL ALLERGIES 10/15/2010 Unknown Fully Assessed 11/14/2023 REVIEW OF SYSTEMS. Expanded ROS: CO CHAIRMAN: + pelvic pain Allergies and current medication updated:Yes EXAM: Wt 243 lb 12.8 oz (110.6kg) LMP 10/23/2023 GENERAL: pleasant, female in no apparent distress HEENT: Normocephalic, atraumatic, mucus membranes moist, and no lesions CHEST: Normal inspiratory effort PELVIC: external genitalia normal, normal Bartholin's glands, urethra, Dozier's glands, no vulvar lesions, no cervical lesions, good vaginal support, physiologic discharge present, normal appearing perineal body and perianal region BIMANUAL: uterus normal size, shape and consistency, no adnexal masses + mild tenderness to right adnexa and uterus NEURO: alert and oriented x3,exam grossly non-focal EXTREMITIES: normal ASSESSMENT AND PLAN: 1. Pelvic pain in female - ICD9: 625.9, ICD10: R10.2 - DELICIA/TRICHOMONAS NAAT - BACTERIAL VAGINOSIS NAAT - Discussed option of pelvic floor therapy, consult placed - CONSULT TO CO CHAIRMAN PELVIC PAIN - plan to schedule Continue breast follow up as scheduled. RTO for annual or sooner as needed. Mary Kumar APRN.CNP Medical Decision Making: Problems: Low: Stable chronic illness Data: Unique test(s) ordered: 2 Risk: Minimal: Minimal risk from testing/treatment Medical Decision Making Level: 3 - Low documented in this encounterGeorgetown [facility]al Hospital06-28-2024 Telephone encounter Note * Telephone Encounter - Annette Simms LISW - 11/11/2023 9:50 AM EDT Pt noted on [facility] 1st time treatment report. Pt has a non-oncology regimen. No social work followup indicated. CLAY Warner-Sergei [facility]06-28-2024 Miscellaneous Notes* Telephone Encounter - Annette Simms LISW - 11/11/2023 9:50 AM EDT Pt noted on [facility] 1st time treatment report. Pt has a non-oncology regimen. No social work followup indicated. ANNE Warner documented in this encounterGeorgetown Behavioral Hospital06-27-2024 NoteS[facility]06-27-2024 History of Present illness Narrative* Ken Hill MD - 11/10/2023 8:17 AM EDT [place] breast imaging is reviewed from 11/09/2023 bilateral mammogram and ultrasound. Patient had left breast pain and right palpable finding with pain. The breast density is scattered fibroglandular. Repeat diagnostic imaging is recommended. Left breast magnification views are needed to evaluate the calcifications. Right diagnostic imaging is recommended to assess the possible architectural distortion within the lateral right breast. Given the user variability of ultrasound, repeat bilateral ultrasound is recommended. A nurse navigator will contact the patient. Ken Hill MD documented in this encounterGeorgetown Behavioral Hospital06-26-2024 Telephone encounter Note * Telephone Encounter - Carmita Jesus - 11/09/2023 4:44 PM EDT Patient stopped in and was scheduled for all iron infusions and the follow-up lab and office visit.Patient is also scheduled for the Von Willebrand panel on 11/21/23 @ 7:30 am, I called and spoke to Rodolfo in lab to schedule test eng. Carmita Cunha [facility]06-26-2024 Miscellaneous Notes* Telephone Encounter - Carmita Jesus - 11/09/2023 4:44 PM EDT Patient stopped in and was scheduled for all iron infusions and the follow-up lab and office visit.Patient is also scheduled for the Von Willebrand panel on 11/21/23 @ 7:30 am, I called and spoke to Rodolfo in lab to schedule test eng. Carmita Cunha * Telephone Encounter - Aleah Duke - 11/09/2023 10:44 AM EDT Spoke with patient, relaying information below. Patient will stop by to schedule after her mammogram today. Please scheduled Lab in the AM and arrange for acourier. Aleah Duke * Telephone Encounter - Ashley Carmen DO - 11/08/2023 5:25 PM EDT Can let her know fasting iron showed low saturation. Ferritin low normal. Because of this and heavymenses, recommend von Willebrand testing and then 5 doses of iron sucrose. Repeat CBC and iron studies then office visit with Shaista about 6 weeks after completing iron. Anticipate platelet count will come down with iron replacement. Not urgent to start this week or next week. Okay to start secondweek of November. Ashley Carmen DO documented in this encounterGeorgetown Behavioral Hospital06-26-2024 NoteIMPRESSION: INCOMPLETE: NEEDS ADDITIONAL IMAGING EVALUATION 3D guided biopsy is suggested. The architectural distortion in the right breast middle depth lateral region seen on the craniocaudal view only is suspicious of malignancy. A biopsy is recommended. The scattered fine calcifications in the left breast at 1 o'clock middle depth are probably benign. A follow-up in 6 months is recommended. There is no abnormality seen in the left breast to correspond with the pain, however, ultrasound is recommended. LIMITED ULTRASOUND OF RIGHT BREAST: 11/09/2023 RESULT: No prior exams were available for comparison. Real-time ultrasound of the right breast 12 o'clock region was performed. Culver scale images of the real-time examination were reviewed. There is an irregular lesion in the right breast at 12 o'clock middle depth. This correlates as palpated and with mammography findings. IMPRESSION: SUSPICIOUS FINDING - BIOPSY SHOULD BE CONSIDERED The irregular lesion in the right breast is suspicious of malignancy. A biopsy is recommended. LIMITED ULTRASOUND OF LEFT BREAST: 11/09/2023 RESULT: No prior exams were available for comparison. Color flow and real-time ultrasound of the left breast 1-2 o'clock region were performed. Culver scale images of the real-time examination were reviewed. IMPRESSION: BENIGN FINDING 3D guided biopsy is suggested. There is no sonographic evidence of malignancy. There is no abnormality seen in the left breast to correspond with the pain, however, clinical correlation is recommended. Ruddy her/bere:11/09/2023 15:30:19 Multiple national specialty organizations have released breast cancer screening guidelines for women at average risk for developing breast cancer - guidelines that are based on both evidence and opinion, yet differ on when to start and how often to screen for breast cancer. With representation from Breast Imaging, Internal Medicine, Women's Health, Family Medicine, and Medical/Surgical Oncology, the [facility] has carefully reviewed the data and reached the following consensus: 1) All women should engage in shared decision-making with their providers to decide when to start and how often to screen; 2) All women should have the opportunity to start screening mammography at age 40; 3) For women ages 45-55, we recommend annual screening mammograms; 4) For women ages 55 and over, we support both the transition from an annual to a biennial interval if this aligns more with patient's values and preferences, or continuation with annual screening; 5) All women should discuss with their providers when to stop screening mammograms. Yard Worker(s): Mariella Matias, [facility]; Mukund Pace RT(R)(M), [facility] OVERALL STUDY BIRADS: 4 Suspicious finding - Biopsy should be considered Drying Tumbler Operator: Bere Transcribe Date/Time: Nov 09 2023 2:31P Dictated by: RUDDY SHEEHAN MD This examination was interpreted and the report reviewed and electronically signed by: RUDDY SHEEHAN MD on Nov 09 2023 3:30PM [facility] DIVISION OF [id number] NoteIMPRESSION: INCOMPLETE: NEEDS ADDITIONAL IMAGING EVALUATION 3D guided biopsy is suggested. The architectural distortion in the right breast middle depth lateral region seen on the craniocaudal view only is suspicious of malignancy. A biopsy is recommended. The scattered fine calcifications in the left breast at 1 o'clock middle depth are probably benign. A follow-up in 6 months is recommended. There is no abnormality seen in the left breast to correspond with the pain, however, ultrasound is recommended. LIMITED ULTRASOUND OF RIGHT BREAST: 11/09/2023 RESULT: No prior exams were available for comparison. Real-time ultrasound of the right breast 12 o'clock region was performed. Culver scale images of the real-time examination were reviewed. There is an irregular lesion in the right breast at 12 o'clock middle depth. This correlates as palpated and with mammography findings. IMPRESSION: SUSPICIOUS FINDING - BIOPSY SHOULD BE CONSIDERED The irregular lesion in the right breast is suspicious of malignancy. A biopsy is recommended. LIMITED ULTRASOUND OF LEFT BREAST: 11/09/2023 RESULT: No prior exams were available for comparison. Color flow and real-time ultrasound of the left breast 1-2 o'clock region were performed. Culver scale images of the real-time examination were reviewed. IMPRESSION: BENIGN FINDING 3D guided biopsy is suggested. There is no sonographic evidence of malignancy. There is no abnormality seen in the left breast to correspond with the pain, however, clinical correlation is recommended. Ruddy her/bere:11/09/2023 15:30:19 Multiple national specialty organizations have released breast cancer screening guidelines for women at average risk for developing breast cancer - guidelines that are based on both evidence and opinion, yet differ on when to start and how often to screen for breast cancer. With representation from Breast Imaging, Internal Medicine, Women's Health, Family Medicine, and Medical/Surgical Oncology, the [facility] has carefully reviewed the data and reached the following consensus: 1) All women should engage in shared decision-making with their providers to decide when to start and how often to screen; 2) All women should have the opportunity to start screening mammography at age 40; 3) For women ages 45-55, we recommend annual screening mammograms; 4) For women ages 55 and over, we support both the transition from an annual to a biennial interval if this aligns more with patient's values and preferences, or continuation with annual screening; 5) All women should discuss with their providers when to stop screening mammograms. Yard Worker(s): Mariella Matias, [facility]; RT Conor(R)(M), [facility] OVERALL STUDY BIRADS: 4 Suspicious finding - Biopsy should be considered Drying Tumbler Operator: Bere Transcribe Date/Time: Nov 09 2023 2:31P Dictated by : RUDDY SHEEHAN MD This examination was interpreted and the report reviewed and electronically signed by: RUDDY SHEEHAN MD on Nov 09 2023 3:30PM [facility] DIVISION OF [id number] NoteIMPRESSION: INCOMPLETE: NEEDS ADDITIONAL IMAGING EVALUATION 3D guided biopsy is suggested. The architectural distortion in the right breast middle depth lateral region seen on the craniocaudal view only is suspicious of malignancy. A biopsy is recommended. The scattered fine calcifications in the left breast at 1 o'clock middle depth are probably benign. A follow-up in 6 months is recommended. There is no abnormality seen in the left breast to correspond with the pain, however, ultrasound is recommended. LIMITED ULTRASOUND OF RIGHT BREAST: 11/09/2023 RESULT: No prior exams were available for comparison. Real-time ultrasound of the right breast 12 o'clock region was performed. Culver scale images of the real-time examination were reviewed. There is an irregular lesion in the right breast at 12 o'clock middle depth. This correlates as palpated and with mammography findings. IMPRESSION: SUSPICIOUS FINDING - BIOPSY SHOULD BE CONSIDERED The irregular lesion in the right breast is suspicious of malignancy. A biopsy is recommended. LIMITED ULTRASOUND OF LEFT BREAST: 11/09/2023 RESULT: No prior exams were available for comparison. Color flow and real-time ultrasound of the left breast 1-2 o'clock region were performed. Culver scale images of the real-time examination were reviewed. IMPRESSION: BENIGN FINDING 3D guided biopsy is suggested. There is no sonographic evidence of malignancy. There is no abnormality seen in the left breast to correspond with the pain, however, clinical correlation is recommended. Ruddy her/bere:11/09/2023 15:30:19 Multiple national specialty organizations have released breast cancer screening guidelines for women at average risk for developing breast cancer - guidelines that are based on both evidence and opinion, yet differ on when to start and how often to screen for breast cancer. With representation from Breast Imaging, Internal Medicine, Women's Health, Family Medicine, and Medical/Surgical Oncology, the [facility] has carefully reviewed the data and reached the following consensus: 1) All women should engage in shared decision-making with their providers to decide when to start and how often to screen; 2) All women should have the opportunity to start screening mammography at age 40; 3) For women ages 45-55, we recommend annual screening mammograms; 4) For women ages 55 and over, we support both the transition from an annual to a biennial interval if this aligns more with patient's values and preferences, or continuation with annual screening; 5) All women should discuss with their providers when to stop screening mammograms. Yard Worker(s): Mariella Matias, [facility]; RT Conor(R)(M), [facility] OVERALL STUDY BIRADS: 4 Suspicious finding - Biopsy should be considered Drying Tumbler Operator: Bere Transcribe Date/Time: Nov 09 2023 2:31P Dictated by : RUDDY SHEEHAN MD This examination was interpreted and the report reviewed and electronically signed by: RUDDY SHEEHAN MD on Nov 09 2023 3:30PM [facility] DIVISION OF [id number] History of Present illness Narrative* Mariella Matias [facility] - 11/09/2023 3:00 PM EDT Radiology Service Progress Note PATIENT NAME: Maria Elena Garay DATE OF SERVICE: November 09, 2023 TIME: 4:22 PM PATIENT IDENTITY VERIFICATION COMPLETED USING TWO (2) IDENTIFIERS: Name and Date of confirmedby patient verbally. FALL SCREENING: Has the patient had 2 falls in the last year or 1 fall with injury or currently using an Ambulatory Assistive Device (Walker, Cane, Wheelchair, Crutches, etc.)? No PATIENT GENDER DATA: Female. status: : No status: NO. PATIENT RELEVANT IMPLANT DATA REVIEWED: Not Applicable PATIENT PRESENTS WITH AN IMPLANTABLE OR ATTACHED EARLY INTERVENTIONIST: No RADIOLOGY DEPARTMENT: Ultrasound PERIPHERAL IV DATA: Not applicable SIGNED BY: Mariella Matias RDMS November 09, 2023 4:22 PM documented in this encounterGeorgetown Behavioral Hospital06-26-2024 NoteS[facility]06-26-2024 History of Present illness Narrative* Mukund Pace Mammo Tech - 11/09/2023 2:30 PM EDT Radiology Service Progress Note PATIENT NAME: Maria Elena Garay DATE OF SERVICE: November 09, 2023 TIME: 4:00 PM PATIENT IDENTITY VERIFICATION COMPLETED USING TWO (2) IDENTIFIERS: Name and Date of confirmedby patient verbally. FALL SCREENING: Has the patient had 2 falls in the last year or 1 fall with injury or currently using an Ambulatory Assistive Device (Walker, Cane, Wheelchair, Crutches, etc.)? No PATIENT GENDER DATA: Female. status: : No status: NO. PATIENT RELEVANT IMPLANT DATA REVIEWED: Not Applicable PATIENT PRESENTS WITH AN IMPLANTABLE OR ATTACHED EARLY INTERVENTIONIST: No RADIOLOGY DEPARTMENT: Mammography PERIPHERAL IV DATA: Not applicable SIGNED BY: Lucía Perdomo November 09, 2023 4:00 PM documented in this encounterGeorgetown Behavioral Hospital06-26-2024 NoteS[facility]06-26-2024 Telephone encounter Note* Telephone Encounter - Aleah Duke - 11/09/2023 10:44 AM EDT Spoke with patient, relaying information below. Patient will stop by to schedule after her mammogram today. Please scheduled Lab in the AM and arrange for acourier. Aleah Duke [facility]06-25-2024 Telephone encounter Note* Telephone Encounter - Ashley Carmen DO - 11/08/2023 5:25 PM EDT Can let her know fasting iron showed low saturation. Ferritin low normal. Because of this and heavymenses, recommend von Willebrand testing and then 5 doses of iron sucrose. Repeat CBC and iron studies then office visit with Shaista about 6 weeks after completing iron. Anticipate platelet count will come down with iron replacement. Not urgent to start this week or next week. Okay to start secondweek of November. Ashley Carmen DO [facility]06-25-2024 [facility]06-25-2024 History of Present illness Narrative* Nelly Loco MD - 11/08/2023 7:40 AM EDT Subjective: Patient is status post an EGD completed on 06/16/2023. Although her esophagus looked normal biopsies showed that she had significant eosinophils both in the distal as well as mid esophagus.She is still having this aphasia nausea some epigastric discomfort.Being on a proton pump inhibitors only helped her minimally. Objective:Last menstrual period 09/25/2023. Abdomen is soft nontender no rebound guarding or peritoneal signs are identified. Assessment:Eosinophilic esophagitis (primary encounter diagnosis) Plan: I am going to get a consultation with gastroenterology in [place]. documented in this encounterGeorgetown Behavioral Hospital06-24-2024 Telephone encounter Note * Telephone Encounter - Anne Mercado RN - 11/07/2023 11:20 AM EDT Ambulatory Pharmacy Prior Authorization Note Provider Intervention Required?: No- Pharmacy completed on your behalf. Rx Plan: Other: [facility]: Qulipta 60MG tablets Cover My Meds Rene: [id number] Determination: Approved Prior Authorization/Case #: [id number] Prior Authorization Expiration: 02/04/24 Time to PA Submission in CMM: 15 min Time to PA Determination in CMM: Same day Additional Information: PLEASE NOTE: Pt will need follow up office visit to review/document efficacy and tolerability of treatment before prior auth expiration. Please ensure a future follow up appt is scheduled with your patient. This will ensure no interruption in patient's ability to obtain medic ation refills. Prescriptions will now be processed through [facility] for determination of next steps. For questions relating to this submission, please contact [facility] at [phone] [facility] Work Phone: [phone] Miscellaneous Notes* Telephone Encounter - Anne Mercado RN - 11/07/2023 11:20 AM EDT Ambulatory Pharmacy Prior Authorization Note Provider Intervention Required?: No- Pharmacy completed on your behalf. Rx Plan: Other: [facility]: Qulipta 60MG tablets Cover My Meds Rene: [id number] Determination: Approved Prior Authorization/Case #: [id number] Prior Authorization Expiration: 02/04/24 Time to PA Submission in CMM: 15 min Time to PA Determination in CMM: Same day Additional Information: PLEASE NOTE: Pt will need follow up office visit to review/document efficacy and tolerability of treatment before prior auth expiration. Please ensure a future follow up appt is scheduled with your patient. This will ensure no interruption in patient's ability to obtain medic ation refills. Prescriptions will now be processed through [facility] for determination of next steps. For questions relating to this submission, please contact [facility] at [phone] * Telephone Encounter - Maya Martinez - 11/04/2023 4:58 PM EDT Check out comments: Labs today. Follow up to be scheduled pending results. documented in this encounterGeorgetown [facility] Hospital06-21-[facility]24 Telephone encounter Note * Telephone Encounter - Maya Martinez - 11/04/2023 4:58 PM EDT Check out comments: Labs today. Follow up to be scheduled pending results. [facility]06-21-2024 History of Present illness Narrative* Ashley Carmen DO - 11/04/2023 1:30 PM EDT Portions of this documentation were copied and pasted from previous office visit notes in order to provide a cohesive continuity of the history. The note has been reviewed and edited and updated as necessary. HPI: The patient is a 33-year-old female with a past medical history as outlined below. Seen here last year for leukocytosis and thrombocytosis. MPN panel negative. History of smoking: No. Vaped once or twice. Aquagenic pruritus: No. Erythromelalgia: No. History of DVT: No. History of arterial thromboembolism: Regular dental check ups: Yes. Always nauseated. Always super tired. All over muscle aches. On gabapentin for FM. Tingling from elbows distally. Right hand numb. More frequent palpitations. More so when walking up a grade. No asthma attack in about 2 years. No wheezing. BLAISE--Not using CPAP; not in a while. Menses--Regular. Typically 5-6 days. Heavy at first with clots. 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 Moore LAPS SURG CHOLECYSTECTOMY W/CHOLANGIOGRAPHY 02/14/2013 SALPINGECTOMY Bilateral 05/31/2019 B/L Salpingectomy at [facility]-Dr. Moore TONSILLECTOMY HX 03/2018 [facility]-Dr. James TUBAL LIGATION HX 01/13/2016 filshie clips ALLERGIES Allergen Reactions Compazine [Prochlor* Other: See Comments Akathisia with IV Compazine Reglan [Metoclopram* Other: See Comments Akathisia with IV Reglan Seasonal Allergies Unknown Current Outpatient Medications Medication Sig pantoprazole DR (PROTONIX) 40 mg tablet Take 1 tablet by mouth two times a day. chlorzoxazone (PARAFON FORTE DSC) 500 mg tablet Take 1 tablet by mouth three times a day as needed. atogepant (QULIPTA) 60 mg tablet Take 1 tablet (60 mg) by mouth once daily. propranolol ER (INDERAL LA) 80 mg 24 hr capsule Take 1 capsule by mouth once daily. gabapentin (NEURONTIN) 600 mg tablet Take 1 tablet by mouth three times a day. ondansetron (ZOFRAN) 4 mg tablet Take 2 tablets by mouth every 8 hours as needed for nausea/vomiting. divalproex ER (DEPAKOTE ER) 500 mg 24 hr tablet Take 2 tablets by mouth for 5 days. Then take 1 tablet by mouth for 5 days. (Patient not taking: Reported on 10/28/2023) lisinopril (ZESTRIL) 5 mg tablet Take 1 tablet by mouth once daily. NURTEC ODT 75 mg disintegrating tablet TAKE 1 DISSOLVABLE TABLET BY MOUTH AT MIGRAINE ONSET. TAKE ONLY 1 TABLET PER 24 HOURS. ergocalciferol 50,000 unit capsule (VITAMIN D2, DRISDOL) Take 1 capsule by mouth one time a week. cyclobenzaprine (FLEXERIL) 10 mg tablet Take 1 tablet by mouth three times a day as needed. omeprazole (PRILOSEC) 20 mg capsule Take 1 capsule by mouth two times a day. 1/2 hr before meal. traMADol (ULTRAM) 50 mg tablet Take 1 tablet by mouth every 6 hours as needed for pain. CPAP/BIPAP/OTHER Type .CPAPSettings into a note to see current settings/supplies/DME information. (Patient not taking: Reported on 10/18/2023) albuterol HFA (PROVENTIL HFA, VENTOLIN HFA) 90 mcg/actuation inhaler Inhale 2 Puffs as instructed every 4 hours as needed for wheezing/shortness of breath. as instructed venlafaxine ER (EFFEXOR XR) 150 mg 24 hr capsule Take 1 capsule by mouth once daily. albuterol (PROVENTIL) 2.5 mg /3 mL (0.083 %) nebulizer solution Use 3 mL via nebulizer every 4 hours as needed. Use over 5-15minutes. Cholecalciferol, Vitamin D3, 125 mcg (5,000 unit) cap Take 1 capsule by mouth once daily. Leg Brace (YAO KNEE BRACE) misc Sleeve brace left knee No current facility-administered medications for this visit. Social History Tobacco Use Smoking status: Never Smokeless tobacco: Never Vaping Use Vaping Use: Former Substances: Nicotine, Flavoring Substance Use Topics Alcohol use: Yes Comment: 1 nightout every 2 months- 2-3 drinks-None since Drug use: No Family History Problem Relation Age of Onset Cancer Mother thyroid, skin. - precancerous cervical cells on pap smear Hypertension Mother No Known Problems Father Breast Cancer Maternal Grandmother Hypertension Maternal Grandmother Asthma Maternal Grandmother Heart Maternal Grandfather Ischemic Heart Disease Maternal Grandfather stomach, ovarian. Heart Attack Paternal Grandfather Ovarian cancer Other Great Grandmother ROS: 10 system review negative otherwise. PHYSICAL EXAM: Vitals: Blood pressure 133/99, pulse 95, temperature 37.7 C (99.8 F), temperature source Oral, height 162.6 cm (5' 4), weight 112 kg (247 lb), last menstrual period 09/25/2023, SpO2 99%. Well-appearing and in no acute distress. EYES: Sclerae are anicteric bilaterally. ENT: Oral mucosa is unremarkable. There is no sign of thrush or mucositis. LYMPHATIC: There is no palpable cervical, supraclavicular, axillary or inguinal adenopathy. RESPIRATORY: Inspiratory breath sounds are of normal intensity in all singleton. No rales, wheezes or rhonchi. Expiratory phase is normal. CARDIOVASCULAR: Rhythm is regular. Normal intensity S1/S2. There is no gallop or murmur. ABDOMEN: The abdomen is nondistended. No splenomegaly or hepatomegaly. No tenderness. Extremities: No swelling or edema. SKIN: No jaundice or rash. No petechiae. NEUROLOGIC: dry can tender II-XII are grossly intact. No focal motor weakness. DTRs are symmetric and normal. MUSCULOSKELETAL: No joint swelling or tenderness. No muscle wasting. ASSESSMENT/PLAN: (D75.839) Thrombocytosis Assessment: -33-year-old female past medical history as outlined above. Several year history of leukocytosis and thrombocytosis. Has heavy menses. Suspect iron deficiency with fluctuating iron levels. Also likely some degree of chronic inflammation. May be related to untreated sleep apnea. Plan: -Check fasting iron levels. -Recheck ferritin. -Follow-up with gynecology. -Check inflammatory markers. -Check serum cortisol. -Parenteral iron if low. -If inflammatory markers not elevated and iron adequate, then bone marrow biopsy. I spent a total of 45 minutes on the date of the service which included preparing to see the patient, [id number] patient care, completing clinical documentation, obtaining and/or reviewing separately obtained history, performing a medically appropriate examination, counseling and educating the pat ient/family/caregiver, ordering medications, tests, or procedures, communicating with other HCPs (not separately reported), and communicating results to the patient/family/caregiver. Ashley Carmen DO documented in this encounterGeorgetown [facility] Hospital06-21-2024 [facility] Telephone encounter Note* Telephone Encounter - Marielle Myers MA - 11/04/2023 9:17 AM EDT See 10/24/2023 phone encounter. [facility] has been approved and pt notified Closing encounter [facility]06-21-2024 Miscellaneous Notes* Telephone Encounter - Marielle Myers MA - 11/04/2023 9:17 AM EDT See 10/24/2023 phone encounter. [facility] has been approved and pt notified Closing encounter * Telephone Encounter - Marielle Myers MA - 10/19/2023 9:56 AM EDT Per pharmacy: Pharmacy comment: Alternative Requested:PRIOR AUTH DENIED NEED ALTERNATIVE As of today : Called [employer] to file an appeal for the [facility]. Spoke with [employer]. All clinical information was provided We await reply on the appeal documented in this encounterGeorgetown Behavioral Hospital06-14-2024 Instructions* Patient Instructions* Russ De Dios PA-C - 10/28/2023 5:01 PM EDT Parafon Forte (Chlorzoxazone) - 500 mg Take 1 tablet (500 mg) by mouth four times a day until headache free for 24 hours or take for 5 days. This has been prescribed for a limited time as bridge therapy to help you break this severe headache cycle. This is a muscle relaxer. Do not take any other muscle relaxers, triptans, OTC pain meds, or opioids while taking this medication. This medication may make you drowsy. Please do not drive or operate machinery while taking this medication. documented in this encounterGeorgetown Behavioral Hospital06-14-2024 History of Present illness Narrative* Russ De Dios PA-C - 10/28/2023 10:30 AM EDT Images from the original note were not included. [facility] Note Subjective: Maria Elena Garay is a 32 year old year old female, with a history of chronic migraine, concussion(2007), anxiety, depression, asthma and following up today for day 1 of infusions. Patient requested Depakote be added to her infusions due to previous benefit. Reviewed LFTs which were within normallimits and added Depakote to her plan. Therapy Plan: DHE: NS 500 mL, Toradol 30 mg, magnesium 1 g, added Depakote, methocarbamol, Zofran, and Phenergan New health conditions since orders were placed: no Cardiovascular risk factors (NH/STROKE/CAD/HTN): HTN Last triptan dose: N/A -uses Nurtec Last muscle relaxer dose: Last NSAID dose: 10/26/23 Advil Response to infusions: tolerating. Infusions have worked well in the past. Current Preventative: Botox, Vyepti switching to Qulipta Current Abortive: Nurtec, Parafon forte Labs: Latest Ref Rng & Units 10/07/2023 CBC WBC 3.70 - 11.00 k/uL 13.58 RBC 3.90 - 5.20 m/uL 5.13 Hemoglobin 11.5 - 15.5 g/dL 13.2 Hematocrit 36.0 - 46.0 % 43.0 MCV 80.0 - 100.0 fL 83.8 MCH 26.0 - 34.0 pg 25.7 MCHC 30.5 - 36.0 g/dL 30.7 RDW-CV 11.5 - 15.0 % 14.2 Platelet Count 150 - 400 k/uL 589 MPV 9.0 - 12.7 fL 10.4 Latest Ref Rng & Units 09/09/2023 CMP Sodium 136 - 144 mmol/L 139 Potassium 3.7 - 5.1 mmol/L 5.1 Chloride 97 - 105 mmol/L 101 CO2 22 - 30 mmol/L 25 Glucose 74 - 99 mg/dL 83 BUN 7 - 21 mg/dL 14 Creatinine 0.58 - 0.96 mg/dL 0.83 EGFR >=60 mL/min/1.73m 96 Protein, Total 6.3 - 8.0 g/dL 7.0 Albumin 3.9 - 4.9 g/dL 4.5 Calcium 8.5 - 10.2 mg/dL 10.4 Bilirubin, Total 0.2 - 1.3 mg/dL 0.2 AST 13 - 35 U/L 14 ALT 7 - 38 U/L 22 Alkaline Phosphatase 34 - 123 U/L 81 ALLERGIES Allergen Reactions Compazine [Prochlor* Other: See Comments Akathisia with IV Compazine Reglan [Metoclopram* Other: See Comments Akathisia with IV Reglan Seasonal Allergies Unknown Current Medications: chlorzoxazone (PARAFON FORTE DSC) 500 mg tablet^Take 1 tablet by mouth three times a day as needed.^Disp: 60 tablet^Rfl: 3 atogepant (QULIPTA) 60 mg tablet^Take 1 tablet (60 mg) by mouth once daily.^Disp: 30 tablet^Rfl: 11 propranolol ER (INDERAL LA) 80 mg 24 hr capsule^Take 1 capsule by mouth once daily.^Disp: 90 capsule^Rfl: 3 gabapentin (NEURONTIN) 600 mg tablet^Take 1 tablet by mouth three times a day.^Disp: 270 tablet^Rfl: 3 ondansetron (ZOFRAN) 4 mg tablet^Take 2 tablets by mouth every 8 hours as needed for nausea/vomiting.^Disp: 180 tablet^Rfl: 2 divalproex ER (DEPAKOTE ER) 500 mg 24 hr tablet^Take 2 tablets by mouth for 5 days. Then take 1 tablet by mouth for 5 days.^Disp: 15 tablet^Rfl: 0 (Patient not taking: Reported on 10/28/2023) lisinopril (ZESTRIL) 5 mg tablet^Take 1 tablet by mouth once daily.^Disp: 30 tablet^Rfl: [address] (PROTONIX) 40 mg tablet^Take 1 tablet by mouth two times a day.^Disp: 60 tablet^Rfl: 2 NURTEC ODT 75 mg disintegrating tablet^TAKE 1 DISSOLVABLE TABLET BY MOUTH AT MIGRAINE ONSET. TAKE ONLY 1 TABLET PER 24 HOURS.^Disp: 8 tablet^Rfl: 13 ergocalciferol 50,000 unit capsule (VITAMIN D2, DRISDOL)^Take 1 capsule by mouth one time a week.^Disp: 12 capsule^Rfl: 3 cyclobenzaprine (FLEXERIL) 10 mg tablet^Take 1 tablet by mouth three times a day as needed.^Disp: 30 tablet^Rfl: 0 omeprazole (PRILOSEC) 20 mg capsule^Take 1 capsule by mouth two times a day. 1/2 hr before meal.^Disp: 60 capsule^Rfl: 5 traMADol (ULTRAM) 50 mg tablet^Take 1 tablet by mouth every 6 hours as needed for pain.^Disp: 21 tablet^Rfl: 0 CPAP/BIPAP/OTHER^Type .CPAPSettings into a note to see current settings/supplies/DME information.^Disp: 1 Each^Rfl: 0 (Patient not taking: Reported on 10/18/2023) albuterol HFA (PROVENTIL HFA, VENTOLIN HFA) 90 mcg/actuation inhaler^Inhale 2 Puffs as instructed every 4 hours as needed for wheezing/shortness of breath. as instructed^Disp: 1 Each^Rfl: 5 venlafaxine ER (EFFEXOR XR) 150 mg 24 hr capsule^Take 1 capsule by mouth once daily.^Disp: 90 capsule^Rfl: 3 albuterol (PROVENTIL) 2.5 mg /3 mL (0.083 %) nebulizer solution^Use 3 mL via nebulizer every 4 hours as needed. Use over 5-15minutes.^Disp: 1 Package^Rfl: 0 Cholecalciferol, Vitamin D3, 125 mcg (5,000 unit) cap^Take 1 capsule by mouth once daily.^Disp: ^Rfl: Leg Brace (YAO KNEE BRACE) misc^Sleeve brace left knee^Disp: 1 Each^Rfl: 0 Review of Systems: Review of system : unchanged from the previous visit (sleep patterns, mood, energy, appetite, stress, exercising). Objective: VS: see infusion note for vital signs General: well appearing, in no acute distress, alert Lungs: normal breath sounds bilaterally CV: RRR, normal S1, S2 auscultated, no murmurs, and no JVD GI: Bowel sounds present in all four quadrants. Neurological: Pain Behaviors: no pain behaviors observed Mental Status: Alert and oriented to person, place and time. Affect is normal and appropriate. Speech is spontaneous and fluent without dysarthria, normal in rate, volume and articulation, and clear,coherent, and relevant. Short and group home memory, cognition and general fund of knowledge are good. Attention span and concentration are good. Cranial Nerves: VII-face is symmetric without evidence of weakness. VIII-hearing intact. Assessment: Intractable chronic 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 (primary encounter diagnosis) Plan: Maria Elena Garay is a 33 year old year old female, with a history of chronic migraine, concussion(2007), anxiety, depression, asthma and following up today for day 1 of infusions. She was only able to come for 1 day so this is also her last day. Patient in the process of switching from Vyepti toQulipta which should also be helpful for her headaches. Response to infusions: Tolerating well Discharge Instructions: -Hold muscle relaxers days of infusion -Sent in refill of Parafon forte. Patient can utilize this as Parafon forte burst (starting tomorrow) as continuation of her infusion today Follow up plan: Padmini on 01/25/2024 for Botox Level of service: Est level 2 (10-19 min). Time spent 10 min on the day of service, which included preparing to see the patient, [id number] patient care, completing clinical documentation, obtaining and/or reviewing separately obtained history, performing a medically appropriate examination, counseling and educating the patient/family/caregiver, and ordering medications, tests, or procedures. Russ De Dios PA-C Headache Section [facility] October 27, 2023 documented in this encounterGeorgetown Behavioral Hospital06-14-2024 NoteS[facility]06-[facility] NoteS[facility]06-14-2024 History of Present illness Narrative* Katherine Smith, RN - 10/28/2023 9:20 AM EDT Pt in for one day of DHE infusion. Pt rated headache 7/10. Pt has severe nausea and no dizziness. Educated pt on medications to be administered. Pt agreed to proceed as ordered. 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 Va HERRERA added IV Depacon to therapy plan today. @0935: Pre-Infusion BP was 144/84, pt educated on DHE protocol for BP. 500 cc NS bolus held at thistime. IV Robaxin started @1007. After Robaxin done infusing, @1037 BP 142/80, Magnesium started @1042. @1113 BP 147/85, PRN Clonidine given per MAR order. @1145 BP 135/84, 1st bag of 0.5 mg DHE and 500 cc NS Bolus started @1151. PRN PO Phenergan given for severe nausea. Pts infusion complete. Headache 10/23. Pt stated severe nausea and no dizziness. 2nd dose of Zofran given prior to d/c. Pt discharged from txt room at 1424. documented in this encounterGeorgetown [facility]al Hospital06-13-2024 Telephone encounter Note * Telephone Encounter - Enriqueta Lopez - 10/27/2023 2:04 PM EDT DUPLICATE MESSAGE [facility]06-13-2024 Miscellaneous Notes* Telephone Encounter - Enriqueta Lopez - 10/27/2023 2:04 PM EDT DUPLICATE MESSAGE * Telephone Encounter - Annette Benitez - 10/27/2023 8:24 AM EDT INFUSION SCHEDULING Name of caller : Maria Elena Relationship to patient : Self If not self Will need patient permission to release results or disclose health information with called documented in fyi. Was permission obtained from patient ? Yes Patient identified by Name and Date of . ( Maria Elena Garay, 1990). Yes Last office visit 10/25 with Zoraida Rodarte Did you discuss infusions during the visit: Yes Type of Infusion Requested by Patient : 3 day [facility] infusions If Vyepti, is there a referral : Number to return call [phone] Okay to leave a message ? Yes ROUTING INSTRUCTIONS: If patient is returning call to schedule Infusions or asking about Vyepti, please route message to p HEAD[facility] INFUSION SCHEDULING . If Infusions were NOT discussed in the last visit, route message to provider pool to be triaged. documented in this encounterGeorgetown Behavioral Hospital06-13-2024 Telephone encounter Note * Telephone Encounter - Annette Benitez - 10/27/2023 8:24 AM EDT INFUSION SCHEDULING Name of caller : Maria Elena Relationship to patient : Self If not self Will need patient permission to release results or disclose health information with called documented in fyi. Was permission obtained from patient ? Yes Patient identified by Name and Date of . ( Maria Elena Batrespili, 1990). Yes Last office visit 10/25 with Zoraida Aster Did you discuss infusions during the visit: Yes Type of Infusion Requested by Patient : 3 day [facility] infusions If Vyepti, is there a referral : Number to return call [phone] Okay to leave a message ? Yes ROUTING INSTRUCTIONS: If patient is returning call to schedule Infusions or asking about Vyepti, please route message to p HEAD[facility] INFUSION SCHEDULING . If Infusions were NOT discussed in the last visit, route message to provider pool to be triaged. [facility]06-12-[facility] Telephone encounter Note* Telephone Encounter - Johana Fabian - 10/26/2023 4:58 PM EDT INFUSION SCHEDULING Name of caller : Maria Elena Garay Relationship to patient : Self If not self Will need patient permission to release results or disclose health information with called documented in fy. Was permission obtained from patient ? Yes Patient identified by Name and Date of . ( Maria Elena Garay, 1990). Yes Last office visit 10/03/23 with [facility] Did you discuss infusions during the visit: Type of Infusion Requested by Patient : If Vyepti, is there a referral : Number to return call [phone] Okay to leave a message ? Yes ROUTING INSTRUCTIONS: If patient is returning call to schedule Infusions or asking about Vyepti, please route message to p HEADACHE INFUSION SCHEDULING . If Infusions were NOT discussed in the last visit, route message to provider pool to be triaged. [facility]06-[facility] Miscellaneous Notes* Telephone Encounter - Johana Fabian - 10/26/2023 4:58 PM EDT INFUSION SCHEDULING Name of caller : Maria Elena Garay Relationship to patient : Self If not self Will need patient permission to release results or disclose health information with called documented in fyi. Was permission obtained from patient ? Yes Patient identified by Name and Date of . ( Maria Elena Garay, 1990). Yes Last office visit 10/03/23 with [facility] Did you discuss infusions during the visit: Type of Infusion Requested by Patient : If Vyepti, is there a referral : Number to return call [phone] Okay to leave a message ? Yes ROUTING INSTRUCTIONS: If patient is returning call to schedule Infusions or asking about Vyepti, please route message to p HEADAC[facility] INFUSION SCHEDULING . If Infusions were NOT discussed in the last visit, route message to provider pool to be triaged. documented in this encounterGeorgetown Behavioral Hospital06-12-2024 Instructions* Patient Instructions* Zoraida Rodarte APRN.[facility] - 10/26/2023 1:09 PM EDT AFTER VISIT CARE BOTOX INJECTION While these procedures can be extremely helpful as part of your headache treatment plan, they can irritate the muscles and tissues in your head, neck and shoulders. Proper follow-up care is important to avoid muscle spasms and temporary pain increase within the following 3-5 days after your clinic visit. Here are some tips to help decrease side-effects that may occur and maximize the effectiveness of your pain relief -HYDRATION Hydration is important to help nourish your muscles and tissues. Drink 60-80 oz of non caffeinated fluid at least for 3 days after your visit. -REST Rest will help avoid further irritation of muscle and tissues. Remember that you need to give your body time to adjust. NO strenuous activity for at least the first 24 hours after your visit. Gentle stretching, yoga, meditation or even swimming is OK and encouraged. -ICE/HEAT Since these procedures irritate muscles, there can be some swelling. Alternating ice and heat every3-5 times per day may help decrease this, while also optimizing pain relief Use cool gel packs for ice for 10 min. Use a warm moist towel covered with a dry towel on neck and shoulders. Alternate stretching each side of the neck. -STRETCHING Slow, gentle stretching of the neck and shoulders once every hour is helpful to avoid muscle spasms. -TREAT MUSCLE SPASMS If you are already prescribed a muscle relaxer such as baclofen, tizanidine or flexeril, use as directed. If you do not have one, talk to your provider to find out if this would be safe for you to use. Do not rub or massage the area for 48-72 hours. -OTHER No hair dyes or permanents for 24 hours. If you are paying out of pocket for Botox go online to Botox Savings Program and see if you qualifyfor reimbursement. Return in 3 months for your next Botox Injection documented [facility] History of Present illness Narrative* Zoraida Rodarte APRN.MARISELA - 10/26/2023 1:00 PM EDT Images from the original note were not included. [facility] Follow-up Visit Current Preventive: Botox, Vyepti, Propranolol, Effexor (with PCP), Gabapentin (with PCP) Current Abortive: Nurtec (has not been able to get), Parafon Forte Miscellaneous Patient Concerns: She can tell when Botox wears off. She did see benefit with 3-days of IV infusions. Unclear benefit with Vyepti. She has completed 3 infusions at 300 mg dose. She has been having trouble getting her Nurtec. It looks like it was denied by insurance. Unclear why as she has tried several triptans. Impression: Chronic migraine without aura, intractable, without status migrainosus (primary encounter diagnosis) Maria Elena Garay has been previously approved for an Oral Calcitonin Gene- Related Peptide Receptor Antagonist (GEPANT) Rimegepant for the treatment of abortive use. The patient has demonstrated thefollowing: Provider attests patient has had a positive clinical response: Yes Patient's quality of life and ability to perform ADLs has improved: Yes The patient has tried and failed the following : We suggest the patient continue treatment with GEPANT Rimegepant. The following preventative medications have been tried for three or more months without benefit: Anti-Convulsant Carbamazepine (Tegretol) Gabapentin (Neurontin) Topiramate (Topamax, Trokendi XL, Qudexy) Anti-Depressant and Antipsychotic Amitriptyline (Elavil) Bupropion (Wellbutrin) Citalopram (Celexa) Fluoxetine (Prozac) Sertraline (Zoloft) Venlafaxine (Effexor) Blood Pressure Lisinopril (Zestril) Propranolol (Inderal) MABs Erenumab (Aimovig) Galcanezumab (Emgality) Eptinezumab (Vyepti) Botulinum Toxin Onabotulinum Toxin A (Botox) 6 treatments Supplements Magnesium The following abortive medications have been tried but require high frequency use which can lead toMedication Overuse Headache: Analgesic Butalbital/acetaminophen/caffeine (Fioricet) Diclofenac (Voltaren, Cataflam, Cambia) Hydrocodone/Acetaminophen (Vicodin, Cowpens) Ketorolac (Toradol) Meclofenamate (Meclomen) Meloxicam (Mobic) Oxycodone/Acetaminophen (Percocet) Tramadol (Ultram) Anti-Anxiety Buspirone (Buspar) Anti-Migraine Dihydroergotamine (DHE-45, Migranal) Eletriptan (Relpax) Naratriptan (Amerge) Rizatriptan (Maxalt) Sumatriptan (Imitrex, Sumavel) GEPANTS Ubrogepant (Ubrelvy) Rimegepant (Nurtec) Over the Counter Medications Acetaminophen (Tylenol) Acetaminophen/Aspirin/Caffeine (Excedrin, Goody s) Naproxen sodium (Aleve) We will request a precertification for a Calcitonin Gene-Related Peptide Receptor Antagonist (GEPANT) Atogepant for the prevention of chronic migraine . This patient meets ICHD-3 criteria for treatment of migraine with a small molecule CGRP antagonist GEPANT. The FDA has approved GEPANTS for the treatment of migraine. Specifically, the patient has 20 headaches per month, lasting 4 or more hours/day associated with photophobia, phonophobia, nausea for three or more months. Medication overuse headache has been ruled out. The patient has tried and failed the following : The following preventative medications have been tried without benefit: Anti-Convulsant Carbamazepine (Tegretol) Gabapentin (Neurontin) Topiramate (Topamax, Trokendi XL, Qudexy) Anti-Depressant and Antipsychotic Amitriptyline (Elavil) Bupropion (Wellbutrin) Citalopram (Celexa) Fluoxetine (Prozac) Sertraline (Zoloft) Venlafaxine (Effexor) Blood Pressure Lisinopril (Zestril) Propranolol (Inderal) MABs Erenumab (Aimovig) Galcanezumab (Emgality) Eptinezumab (Vyepti) Botulinum Toxin Onabotulinum Toxin A (Botox) 6 treatments Supplements Magnesium The following abortive medications have been tried but require high frequency use which can lead toMedication Overuse Headache: Analgesic Butalbital/acetaminophen/caffeine (Fioricet) Diclofenac (Voltaren, Cataflam, Cambia) Hydrocodone/Acetaminophen (Vicodin, Cowpens) Ketorolac (Toradol) Meclofenamate (Meclomen) Meloxicam (Mobic) Oxycodone/Acetaminophen (Percocet) Tramadol (Ultram) Anti-Anxiety Buspirone (Buspar) Anti-Migraine Dihydroergotamine (DHE-45, Migranal) Eletriptan (Relpax) Naratriptan (Amerge) Rizatriptan (Maxalt) Sumatriptan (Imitrex, Sumavel) GEPANTS Ubrogepant (Ubrelvy) Rimegepant (Nurtec) Over the Counter Medications Acetaminophen (Tylenol) Acetaminophen/Aspirin/Caffeine (Excedrin, Goody s) Naproxen sodium (Aleve) Plan: Rescue plan: -Continue Nurtec as needed for migraine. Will look into denial. -Continue Parafon Forte as needed for contributing musculoskeletal pain. Preventive plan: -Botox today. -Switch Vyepti to Qulipta. Follow-Up Onabotulinum Toxin A (BotoxTM) for Migraine Indication: Chronic Intractable Migraine Referral Expiration: 10/24/2024 Prior to the initiation of the FIRST treatment with Onabotulinum Toxin A, the patient reported the following average headache frequency over the past 3 MONTHS: Number of moderate-severe migraine days/month: 30 (daily) Number of mild migraine days/month: 0 Number of headache free days/month: 0 (0 headache-free hours) After treatment with Onabotulinum Toxin A: Number of moderate-severe migraine days/month: 10 Number of mild migraine days/month: 10 Number of headache free days/month: 10 (240 headache-free hours) Patient reduction in overall migraine days: Yes Patient reduction in moderate-severe migraine days: Yes Patient reduction of headache hours by 100 hours or more: Yes (reduction of 240 hours) Individual has obtained clinical benefit deemed significant by individual or prescriber (Y/N): Yes Patient's quality of life and ability to perform ADLs has improved (Y/N): Yes Side effects: none Wearing off: Yes - 9 weeks after treatment The patient has been assessed for disorders which could contribute to breathing or swallowing difficulty, and there is no contraindication with PREEMPT Botox. There is no documented allergic reaction/hypersensitivity to any botulinum toxin and there is no active infection at proposed injection site. HEADACHE SCORES: 08/03/2022 11/02/2022 08/11/2023 Headache Questions ER visits since last office visit: 1 0 0 Hospital stays since last office visit 0 0 0 Limited ADLs in the last month: 12 20 15 Days missed from work or school in the last month: 5 4 5 Days headache pain free in the last month: 5 10 0 Days per month with ALL of the following symptoms - decreased productivity, light sensitivity and nausea: 18 20 Initial improvement of headache after botox injection at last visit: No change Minimally improved No change PRN medication usage in the last month: 18 5 5 Patient impression of improvement since last visit: No change No change Much worse 08/03/2022 11/02/2022 08/11/2023 HIT-6 HIT-6 65 (Severe impact) 75 (Severe impact) 70 (Severe impact) 05/03/2022 08/03/2022 11/02/2022 MYLA - 2/7 SCORES MYLA-2 Score 2 2 3 MYLA-7 Score 13 05/03/2022 08/03/2022 11/02/2022 Migraine Specific QOL - Higher scores indicate better HRQL Role Function-Restrictive Transformed Score (range: 0-100) 60 37.14 28.57 Role Function-Preventive Transformed Score (range: 0-100) 60 50 75 Emotional Function Transformed Score (range: 0-100) 60 20 20 11/02/2022 08/03/2022 05/03/2022 PHQ-9 Score 12 12 6 BP 140/90 Pulse 83 Wt 112 kg (246 lb 14.6 oz) LMP 09/25/2023 BMI 41.73 kg/m Patient name: Maria Elena Garay : 1990 ALLERGIES Allergen Reactions Compazine [Prochlor* Other: See Comments Akathisia with IV Compazine Reglan [Metoclopram* Other: See Comments Akathisia with IV Reglan Seasonal Allergies Unknown UNIVERSAL PROTOCOL / SAFETY CHECKLIST Procedure: Onabotulinum toxin A for migraine Informed Consent Consent Obtained: Written Phelps Protocol A moment to CARE was completed SIGN IN Personnel directly involved with the procedure wore the appropriate PPE Special Equipment: N/A Patient/Surrogate Stated/Verified: Patient name, Date of , Relevant allergies and Intended procedure TIME OUT Intended patient and procedure match the source document(s) Consent documented and matches the intended procedure No relevant labs, photos, and/or imaging studies were applicable for review. No correct side/site applicable for marking and visibility. No medications required for procedure. No fire risk assessment and interventions applicable. No implant(s) inserted. SIGN OUT No specimen collected. No instruments, equipment or retained foreign bodies applicable. Post-procedure follow-up management communicated and Plan of Care Visit completed when applicable Written Consent Obtained: Written LOT #: [id number] Expiration Date: Month: 7 Year: 2025 Second vial: LOT #: [id number] Expiration Date: Month: 7 Year: 2025 Injection Sites Left (Units) Left (Sites) Right (Units) Right (Sites) TOTAL (Units) Obstetrics Nurse Practitioner 5 1 5 1 10 Procerus Units: 5 Sites: 1 5 Frontalis 10 2 10 2 20 Temporalis optional follow the pain 20 10 4 2 20 10 4 2 60 Occipitalis optional follow the pain 15 5 3 1 15 5 3 1 40 Cervical PSP 10 2 10 2 20 Trapezius optional follow the pain 15 5 3 1 15 5 3 1 40 Total Units used: 195 Total Units wasted: 5 Patient tolerated procedure well. Prior Therapies Duration of Use Dose Side effect Analgesic Butalbital/acetaminophen/caffeine (Fioricet) Diclofenac (Voltaren, Cataflam, Cambia) Hydrocodone/Acetaminophen (Vicodin, Cowpens) Ketorolac (Toradol) Meclofenamate (Meclomen) Meloxicam (Mobic) Oxycodone/Acetaminophen (Percocet) Tramadol (Ultram) Anti-Anxiety Buspirone (Buspar) Anti-Convulsant Carbamazepine (Tegretol) Gabapentin (Neurontin) Topiramate (Topamax, Trokendi XL, Qudexy) Anti-Depressant and Antipsychotic Amitriptyline (Elavil) Bupropion (Wellbutrin) Citalopram (Celexa) Fluoxetine (Prozac) Sertraline (Zoloft) Venlafaxine (Effexor) Antiemetics Promethazine Reglan (Metoclopramide) Anti-Migraine Dihydroergotamine (DHE-45, Migranal) Eletriptan (Relpax) Naratriptan (Amerge) Rizatriptan (Maxalt) Sumatriptan (Imitrex, Sumavel) Blood Pressure Lisinopril (Zestril) Propranolol (Inderal) MABs Erenumab (Aimovig) Galcanezumab (Emgality) Eptinezumab (Vyepti) GEPANTS Ubrogepant (Ubrelvy) Rimegepant (Nurtec) Botulinum Toxin Onabotulinum Toxin A (Botox) 6 treatments Muscle Relaxer Chlorzoxazone (Parafon Forte) Cyclobenzaprine (Flexeril) Supplements Magnesium Other Medications Prednisone Over the Counter Medications Acetaminophen (Tylenol) Acetaminophen/Aspirin/Caffeine (Excedrin, Goody s) Naproxen sodium (Aleve) Zoraida Rodarte APRN.UI ARCHITECT documented in this encounterGe[facility]06-12-[facility]24 [facility] Telephone encounter Note* Telephone Encounter - Ingris Rodriguez MA - 10/24/2023 10:35 AM EDT Patient records received via electronic fax. Uploaded to [facility] via [employer]. Please review in scanned documents tab of chart review. Ingris Rodriguez MA [facility]06-10-[facility] Miscellaneous Notes* Telephone Encounter - Ingris Rodriguez MA - 10/24/2023 10:35 AM EDT Patient records received via electronic fax. Uploaded to [employer] via [employer]. Please review in scanned documents tab of chart review. Ingris Rodriguez MA documented in this encounterGeorgetown Behavioral Hospital06-07-2024 History of Present illness Narrative* Chandrika Mendez RT(R) - 10/21/2023 3:40 PM EDT Radiology Service Progress Note PATIENT NAME: Maria Elena Garay DATE OF SERVICE: October 21, 2023 TIME: 3:36 PM PATIENT IDENTITY VERIFICATION COMPLETED USING TWO (2) IDENTIFIERS: Name and Date of confirmedby patient verbally. FALL SCREENING: Has the patient had 2 falls in the last year or 1 fall with injury or currently using an Ambulatory Assistive Device (Walker, Cane, Wheelchair, Crutches, etc.)? No PATIENT GENDER DATA: Female. status: : No status: NO. PATIENT RELEVANT IMPLANT DATA REVIEWED: Yes PATIENT PRESENTS WITH AN IMPLANTABLE OR ATTACHED EARLY INTERVENTIONIST: No RADIOLOGY DEPARTMENT: General X-ray: Exam(s) Completed: Spine X-Ray(s): Cervical AP / LAT / OBL PERIPHERAL IV DATA: Not applicable SIGNED BY: RT Aminta(R) October 21, 2023 3:36 PM documented in this encounterGeorgetown Behavioral Hospital06-07-2024 [facility]06-[facility]-2024 Note* Addendum Note - Tomasa Laguerre APRN.CNS - 10/21/2023 3:34 PM EDTAddended by: TOMASA LAGUERRE on: 10/21/2023 03:34 PM Modules accepted: Orders [facility]06-07-[facility] Miscellaneous Notes* Addendum Note - Tomasa Laguerre APRN.CNS - 10/21/2023 3:34 PM EDTAddended by: TOMASA LAGUERRE on: 10/21/2023 03:34 PM Modules accepted: Orders documented in this encounterGeorgetown Behavioral Hospital06-07-2024 Instructions* Patient Instructions* Tomasa Laguerre APRN.CNS - 10/21/2023 3:25 PM EDT 1) Medrol taper 2) Xray cervical spine today 3) Send message back when done with Medrol taper letting me know if symptoms improve 4) See Dr. Fuentes in November as scheduled documented in this encounterGeorgetown [facility]al Hospital06-07-2024 [facility]06-[facility] History of Present illness Narrative* Tomasa Laguerre APRN.CNS - 10/21/2023 3:09 PM EDT This is a 33 year old female who presents today with: Patient presents with: Numbness/Tingling: Tingling bilateral arms from elbows to hands HISTORY OF PRESENT ILLNESS: Maria Elena Garay is a 33 year old female. Patient presents with: Numbness/Tingling: Tingling bilateral arms from elbows to hands Tingling in forearms and hands since yesterday. Most notably dorsal arms & fourth and fifth fingers james. Has had this in the past, intermittently but suddenly yesterday it became constant. No pain in neck. No unsteady gait. No loss of bowel or bladder function. Some dizziness. Some nausea and vomited up milkshake. No visual changes. 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 Oscar L[place] SURG CHOLECYSTECTOMY W/CHOLANGIOGRAPHY 02/14/2013 SALPINGECTOMY Bilateral 05/31/2019 B/L Salpingectomy at [facility]-Dr. Moore TONSILLECTOMY HX 03/2018 [facility]-Dr. James TUBAL LIGATION HX 01/13/2016 filshie clips ALLERGIES Compazine [Prochlorperazine Edisylate], Reglan [Metoclopramide Hcl], and Seasonal Allergies MEDICATIONS Current Outpatient Medications Medication Sig propranolol ER (INDERAL LA) 80 mg 24 hr capsule Take 1 capsule by mouth once daily. gabapentin (NEURONTIN) 600 mg tablet Take 1 tablet by mouth three times a day. ondansetron (ZOFRAN) 4 mg tablet Take 2 tablets by mouth every 8 hours as needed for nausea/vomiting. divalproex ER (DEPAKOTE ER) 500 mg 24 hr tablet Take 2 tablets by mouth for 5 days. Then take 1 tablet by mouth for 5 days. lisinopril (ZESTRIL) 5 mg tablet Take 1 tablet by mouth once daily. chlorzoxazone (PARAFON FORTE DSC) 500 mg tablet Take 1 tablet by mouth three times a day as needed. pantoprazole DR (PROTONIX) 40 mg tablet Take 1 tablet by mouth two times a day. NURTEC ODT 75 mg disintegrating tablet TAKE 1 DISSOLVABLE TABLET BY MOUTH AT MIGRAINE ONSET. TAKE ONLY 1 TABLET PER 24 HOURS. ergocalciferol 50,000 unit capsule (VITAMIN D2, DRISDOL) Take 1 capsule by mouth one time a week. cyclobenzaprine (FLEXERIL) 10 mg tablet Take 1 tablet by mouth three times a day as needed. omeprazole (PRILOSEC) 20 mg capsule Take 1 capsule by mouth two times a day. 1/2 hr before meal. traMADol (ULTRAM) 50 mg tablet Take 1 tablet by mouth every 6 hours as needed for pain. albuterol HFA (PROVENTIL HFA, VENTOLIN HFA) 90 mcg/actuation inhaler Inhale 2 Puffs as instructed every 4 hours as needed for wheezing/shortness of breath. as instructed venlafaxine ER (EFFEXOR XR) 150 mg 24 hr capsule Take 1 capsule by mouth once daily. albuterol (PROVENTIL) 2.5 mg /3 mL (0.083 %) nebulizer solution Use 3 mL via nebulizer every 4 hours as needed. Use over 5-15minutes. Cholecalciferol, Vitamin D3, 125 mcg (5,000 unit) cap Take 1 capsule by mouth once daily. Leg Brace (YAO KNEE BRACE) misc Sleeve brace left knee methylPREDNISolone (MEDROL, AAKASH,) 4 mg Dose-Pack Take as instructed on packaging. (Patient not taking: Reported on 10/03/2023) CPAP/BIPAP/OTHER Type .CPAPSettings into a note to see current settings/supplies/DME information. (Patient not taking: Reported on 10/18/2023) Current Facility-Administered Medications Medication Dose Route Frequency [START ON 10/26/2023] onabotulinum toxin type A 200 Units injection (BOTOX) 200 Units INTRAMUSCULAR ONCE FAMILY HISTORY Problem Relation Age of Onset Cancer Mother thyroid, skin. - precancerous cervical cells on pap smear Hypertension Mother No Known Problems Father Breast Cancer Maternal Grandmother Hypertension Maternal Grandmother Asthma Maternal Grandmother Heart Maternal Grandfather Ischemic Heart Disease Maternal Grandfather stomach, ovarian. Heart Attack Paternal Grandfather Ovarian cancer Other Great Grandmother Social History Tobacco Use Smoking status: Never Smokeless tobacco: Never Vaping Use Vaping Use: Former Substances: Nicotine, Flavoring Substance Use Topics Alcohol use: Yes Comment: 1 nightout every 2 months- 2-3 drinks-None since Drug use: No EXAM: BP 128/82 Pulse 88 Resp 18 Wt 111.1 kg (245 lb) LMP 09/25/2023 SpO2 97% BMI 41.40 kg/m PHYSICAL EXAM: Physical Exam Vitals reviewed. Constitutional: Appearance: Normal appearance. HENT: Head: Normocephalic. Neck: Vascular: No carotid bruit. Cardiovascular: Rate and Rhythm: Normal rate and regular rhythm. Pulmonary: Effort: Pulmonary effort is normal. Breath sounds: Normal breath sounds. Abdominal: Palpations: Abdomen is soft. Musculoskeletal: Cervical back: Normal range of motion. No rigidity or tenderness. Comments: No palpable tenderness along cervical spine. Distal fingertips warm, pink, and sensation intact. Negative Nickerson's. Full ROM in neck- no deficit. Lymphadenopathy: Cervical: No cervical adenopathy. Neurological: Mental Status: She is alert. LABS: reviewed recent labs ASSESSMENT/PLAN: 1. Cervical radiculopathy - ICD9: 723.4, ICD10: M54.12 (primary diagnosis) Vs. Ulnar neuropathy - Trial medrol dose-aakash - Get Xray cervical spine 2. Numbness and tingling in both hands - ICD9: 782.0, ICD10: R20.0, R20.2 - as above - Send report back in a week about tingling Discussed treatment plan and patient voices understanding. Patient's questions answered appropriately. Medications and potential side effects were discussed and patient voices understanding. Return to the office as scheduled or as needed for worsening/no improvement. Tmoasa Laguerre APRN.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 documented in this encounterGeorgetown [facility] Hospital06-07-2024 Telephone encounter Note * Telephone Encounter - Ailyn Juarez LPN - 10/21/2023 2:11 PM EDT Tramadol requires visit for refill. [facility] Miscellaneous Notes* Telephone Encounter - Ailyn Juarez LPN - 10/21/2023 2:11 PM EDT Tramadol requires visit for refill. documented in this encounterGeorgetown Behavioral Hospital06-07-2024 Telephone encounter Note * Telephone Encounter - Courtney Mendez RN - 10/21/2023 11:07 AM EDT Protocol recommends see provider within 4 hours. Appt with Madison Laguerre at 3 pm. Pt requested thattime frame. Offered early but declined. Reason for Disposition [1] Tingling (e.g., pins and needles) of the face, arm / hand, or leg / foot on one side of the body AND [2] present now (Exceptions: Chronic or recurrent symptom lasting > 4 weeks; or tingling from known cause, such as: bumped elbow, carpal tunnel syndrome, pinched nerve, frostbite.) Answer Assessment - Initial Assessment Questions 1. SYMPTOM: tingling in both arms from elbows down. States arms feel heavy and kind of numb. Ableto lift arms above her head and straight out in front of her. 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 ONSET: 1 pm yesterday 3. LAST NORMAL: prior to 1 pm 4. PATTERN comes and goes. Is currently noticing it. 5. CARDIAC SYMPTOMS: denies chest pain, difficulty breathing, palpitations, heart racing or SOB 6. NEUROLOGIC SYMPTOMS: Pt with a history of migraine headaches and is currently in the cycle of having one. With her migraines, she has some dizziness, nausea, slurring of speech, repeat words, hardto think of what she wants to say and gets somewhat clumsy. Is currently having some of those symptoms. Denies any vision loss, double vision, changes in speech, or being unsteady on her feet 7. OTHER SYMPTOMS: denies any different or new symptoms other than what is listed above. 8. : LMP was approx 12. Protocols used: Neurologic [id number] [facility]06-07-[facility] Miscellaneous Notes* Telephone Encounter - Courtney Mendez RN - 10/21/2023 11:07 AM EDT Protocol recommends see provider within 4 hours. Appt with Madison Laguerre at 3 pm. Pt requested thattime frame. Offered early but declined. Reason for Disposition [1] Tingling (e.g., pins and needles) of the face, arm / hand, or leg / foot on one side of the body AND [2] present now (Exceptions: Chronic or recurrent symptom lasting > 4 weeks; or tingling from known cause, such as: bumped elbow, carpal tunnel syndrome, pinched nerve, frostbite.) Answer Assessment - Initial Assessment Questions 1. SYMPTOM: tingling in both arms from elbows down. States arms feel heavy and kind of numb. Ableto lift arms above her head and straight out in front of her. 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 ONSET: 1 pm yesterday 3. LAST NORMAL: prior to 1 pm 4. PATTERN comes and goes. Is currently noticing it. 5. CARDIAC SYMPTOMS: denies chest pain, difficulty breathing, palpitations, heart racing or SOB 6. NEUROLOGIC SYMPTOMS: Pt with a history of migraine headaches and is currently in the cycle of having one. With her migraines, she has some dizziness, nausea, slurring of speech, repeat words, hardto think of what she wants to say and gets somewhat clumsy. Is currently having some of those symptoms. Denies any vision loss, double vision, changes in speech, or being unsteady on her feet 7. OTHER SYMPTOMS: denies any different or new symptoms other than what is listed above. 8. : LMP was approx 512. Protocols used: Neurologic [id number] documented in this encounterGeorgetown Behavioral Hospital06-05-2024 Telephone encounter Note * Telephone Encounter - Katelyn Morataya MA - 10/19/2023 7:03 PM EDT [place] denied insurance will not cover 180 quantity see note below. Patient left vm and advised can usegoodrx coupon if wanting 180 dispensed. We denied your request because we did not see certain details about your use and treatment. We see that this request is for a drug called ondansetron 4 milligram tablet for your use (nausea). The health plan's quantity limit is 48 tablets per 30 days Katelyn Morataya MA [facility]06-05-2024 Miscellaneous Notes* Telephone Encounter - Katelyn Morataya MA - 10/19/2023 7:03 PM EDT PA denied insurance will not cover 180 quantity see note below. Patient left vm and advised can usegoodrx coupon if wanting 180 dispensed. We denied your request because we did not see certain details about your use and treatment. We see that this request is for a drug called ondansetron 4 milligram tablet for your use (nausea). The health plan's quantity limit is 48 tablets per 30 days Katelyn Morataya MA * Telephone Encounter - Katelyn Morataya MA - 10/18/2023 12:48 PM EDT Electronic PA submitted for gutierrez Morataya MA documented in [facility] encounter[facility] Telephone encounter Note * Telephone Encounter - Marielle Myers MA - 10/19/2023 9:56 AM EDT Per pharmacy: Pharmacy comment: Alternative Requested:PRIOR AUTH DENIED NEED ALTERNATIVE As of today : Called [employer] to file an appeal for the [facility]. Spoke with [employer]. All clinical information was provided We await reply on the appeal [facility]06-04-2024 History of Present illness Narrative* Chio Ash APRN.UI ARCHITECT - 10/18/2023 1:58 PM EDT Maria Elena is a 33 year old who presents for an annual gynecologic exam with complaints, right ovarian pain that feels like past ovarian cyst. Pain intermittent. Sometimes dull, sometimes sharp. Pain usually prior to menses but is also random . Pain worse with extension and rolling to stomachduring night and bending over. Menses: cycles every 28-30 days and 5-6 days of flow. Contraception: tubal sterilization HPV vaccine: No Last Pap: 03/27/2019 normal HPV: 06/16/2012 negative History of abnormal pap: Yes 2012 ASCUS HPV negative Last mammogram: 2018 diagnostic imaging left breast normal Sexually active: Yes History of STDS: None Patient concerns for STD exposure: No. 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 LMP: 09/25/2023, Having periods Age at Menarche: Age at First : Age at Menopause: Front Of House Manager History Comments: Sexual Activity: Yes; Male Contraception: Tubal Ligation PAST MEDICAL HISTORY Diagnosis Date Abnormal Pap smear of cervix ASCUS Acute appendicitis 04/2021 Allergic rhinitis, cause unspecified Anxiety 03/17/2010 buspar Arthritis Asthma Concussion 2007 Dysmenorrhea Excessive or frequent menstruation Heavy periods Mental disorder Migraine, unspecified, with intractable migraine, so stated, without mention of status migrainosus Migraine Ovarian cyst resolved Pain in joint, pelvic region and thigh 07/29/2014 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 Oscar [place]IS SURG CHOLECYSTECTOMY W/CHOLANGIOGRAPHY 02/14/2013 SALPINGECTOMY Bilateral 05/31/2019 B/L Salpingectomy at [facility]-Dr. Moore TONSILLECTOMY HX 03/2018 [facility]-Dr. James TUBAL LIGATION HX 01/13/2016 filshie clips FAMILY HISTORY Problem Relation Age of Onset Cancer Mother thyroid, skin. - precancerous cervical cells on pap smear Hypertension Mother No Known Problems Father Breast Cancer Maternal Grandmother Hypertension Maternal Grandmother Asthma Maternal Grandmother Heart Maternal Grandfather Ischemic Heart Disease Maternal Grandfather stomach, ovarian. Heart Attack Paternal Grandfather Ovarian cancer Other Great Grandmother SOCIAL HISTORY Social History Tobacco Use Smoking status: Never Smokeless tobacco: Never Vaping Use Vaping Use: Former Substances: Nicotine, Flavoring Substance Use Topics Alcohol use: Yes Comment: 1 nightout every 2 months- 2-3 drinks-None since Drug use: No REVIEW OF SYSTEMS Abdomen: See HPI. No nausea, vomiting, diarrhea, or constipation. No bloating, early satiety, indigestion, or increased flatulence. Bladder: No dysuria, gross hematuria, urinary frequency, urinary urgency, or incontinence. Breast: has had left breast tenderness for past few years. No breast lumps, nipple d/c, overlying skin changes, redness or skin retraction. Allergies and current medication updated:Yes EXAM: BP 132/92 Ht 5' 4.5 (1.64m) Wt 241 lb 9.6 oz (109.6kg) LMP 04/19/2023 BMI 40.85 kg/(m^2). GENERAL: pleasant, female in no apparent distress HEENT: Normocephalic, atraumatic, mucus membranes moist, and no lesions NECK: Supple, full range of motion, no adenopathy, and thyroid normal DERMATOLOGY: Normal, without lesions, non-icteric, and non-hirsute BREAST: soft, symmetric, normal nipple-areolar complex, no lymphadenopathy, and no nipple dischargeRT breast - dense non-tender mass to from 10-12 o'clock. LT breast - tenderness with palpation to outer breast. CHEST: Normal inspiratory effort ABDOMEN: soft, non-tender, and no masses PELVIC: external genitalia normal, normal Bartholin's glands, urethra, Dozier's glands, no vulvar lesions, no cervical lesions, physiologic discharge present, normal appearing perineal body and perianal region BIMANUAL: uterus normal size, shape and consistency, no adnexal masses, and non-tender RECTOVAGINAL: deferred. NEURO: alert and oriented x3,exam grossly non-focal EXTREMITIES: normal ASSESSMENT/PLAN: 1) Health maintenance: Pap done with HPV. Nutrition, exercise and routine health maintenance exams reviewed. 2. Pelvic pain in female - ICD9: 625.9, ICD10: R10.2 - right sided. Feels like prior ovarian cyst - US FEMALE PELVIS TRANSVAG 3. Mastalgia - ICD9: 611.71, ICD10: N64.4 Left outer breast for a few years - US BREAST LTD LEFT - LEANN DIAGNOSTIC BILATERAL 4. Mass overlapping multiple quadrants of right breast - ICD9: 611.72, ICD10: N63.15 - US BREAST LTD RIGHT - LEANN DIAGNOSTIC BILATERAL 5) Contraception: tubal sterilization. Contraceptive options reviewed and information provided. 6) STD screening: Declined STD check. 7) Follow up one year or sooner as needed Chio Ash APRN.MARISELA Medical Decision Making: Problems: Moderate: New problem with uncertain prognosis Data: Unique test(s) ordered: 3+ Medical Decision Making Level: 4 - Moderate documented in [facility]Ge[facility] Telephone encounter Note * Telephone Encounter - Katelyn Morataya MA - 10/18/2023 12:48 PM EDT Electronic PA submitted for gutierrez Morataya MA [facility]06-03-2024 Telephone encounter Note* Telephone Encounter - Meliza Ricks RN - 10/17/2023 9:37 AM EDTSumhenrik Chua Prior Authorization submitted via CoverMyMeds: Insurance: [employer] /Blue Access Medication: Nurtec 75mg Rene Code: [id number] Awaiting Response [facility]06-03-2024 Miscellaneous Notes* Telephone Encounter - Meliza Ricks RN - 10/17/2023 9:37 AM EDTSumhenrik Chua Prior Authorization submitted via CoverMyMeds: Insurance: [employer] Access Medication: Nurtec 75mg Rene Code: [id number] Awaiting Response documented in this encounterGe[facility]06-[facility]-2024 Telephone encounter Note * Telephone Encounter - Starr Heart - 10/17/2023 8:21 AM EDT Pt scheduled for 11/03. Starr Echols [facility]06-03-2024 Miscellaneous Notes* Telephone Encounter - Starr Heart - 10/17/2023 8:21 AM EDT Pt scheduled for 11/03. Starr Echols * Telephone Encounter - Itzel Altman MA - 10/14/2023 4:15 PM EDT 1. Thrombocytosis - ICD9: 238.71, ICD10: D75.839 (primary diagnosis) Not iron deficiency - CONSULT TO HEMATOLOGY documented in this encounterGe[facility]05-31-2024 Telephone encounter Note * Telephone Encounter - Itzel Altman MA - 10/14/2023 4:15 PM EDT 1. Thrombocytosis - ICD9: 238.71, ICD10: D75.839 (primary diagnosis) Not iron deficiency - CONSULT TO HEMATOLOGY [facility]05-31-2024 Instructions* Patient Instructions* Tomasa Laguerre APRN.CNS - 10/14/2023 3:56 PM EDT 1) Gabapentin 600 mg 3 x day 2) Increase Propranolol XL 80 mg 3) Consult hematology about abnormal blood count 4) Follow up in 3 months documented in this encounterGe[facility]05-31-[facility]24 History of Present illness Narrative* Tomasa Laguerre APRN.CNS - 10/14/2023 3:26 PM EDT This is a 33 year old female who presents today with: No chief complaint on file. HISTORY OF PRESENT ILLNESS: Maria Elena Garay is a 33 year old female. No chief complaint on file. Dizziness and nausea. Still has palpitations. Worse with stress. Nausea attributed to Botox wearing off to treat migraines. Elevated platelets & MCH is low. Low grade temp on Tuesday or Tuesday. Gets sulfur smelling burps then diarrhea. This is related to eating eggs. No dysura. No cough. Menstrual cycle is heavy and a lot of clotting. Aching in arms and legs. Always exhausted. No SOB. 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 Oscar LOUIS SURG CHOLECYSTECTOMY W/CHOLANGIOGRAPHY 02/14/2013 SALPINGECTOMY Bilateral 05/31/2019 B/L Salpingectomy at [facility]-Dr. Moore TONSILLECTOMY HX 03/2018 [facility]-Dr. James TUBAL LIGATION HX 01/13/2016 filshie clips ALLERGIES Compazine [Prochlorperazine Edisylate], Reglan [Metoclopramide Hcl], and Seasonal Allergies MEDICATIONS Current Outpatient Medications Medication Sig divalproex ER (DEPAKOTE ER) 500 mg 24 hr tablet Take 2 tablets by mouth for 5 days. Then take 1 tablet by mouth for 5 days. lisinopril (ZESTRIL) 5 mg tablet Take 1 tablet by mouth once daily. chlorzoxazone (PARAFON FORTE DSC) 500 mg tablet Take 1 tablet by mouth three times a day as needed. pantoprazole DR (PROTONIX) 40 mg tablet Take 1 tablet by mouth two times a day. NURTEC ODT 75 mg disintegrating tablet TAKE 1 DISSOLVABLE TABLET BY MOUTH AT MIGRAINE ONSET. TAKE ONLY 1 TABLET PER 24 HOURS. ergocalciferol 50,000 unit capsule (VITAMIN D2, DRISDOL) Take 1 capsule by mouth one time a week. cyclobenzaprine (FLEXERIL) 10 mg tablet Take 1 tablet by mouth three times a day as needed. gabapentin (NEURONTIN) 400 mg capsule Take 1 capsule by mouth three times a day. propranolol ER (INDERAL LA) 60 mg 24 hr capsule Take 1 capsule by mouth once daily. traMADol (ULTRAM) 50 mg tablet Take 1 tablet by mouth every 6 hours as needed for pain. CPAP/BIPAP/OTHER Type .CPAPSettings into a note to see current settings/supplies/DME information. albuterol HFA (PROVENTIL HFA, VENTOLIN HFA) 90 mcg/actuation inhaler Inhale 2 Puffs as instructed every 4 hours as needed for wheezing/shortness of breath. as instructed venlafaxine ER (EFFEXOR XR) 150 mg 24 hr capsule Take 1 capsule by mouth once daily. albuterol (PROVENTIL) 2.5 mg /3 mL (0.083 %) nebulizer solution Use 3 mL via nebulizer every 4 hours as needed. Use over 5-15minutes. Cholecalciferol, Vitamin D3, 125 mcg (5,000 unit) cap Take 1 capsule by mouth once daily. methylPREDNISolone (MEDROL, AAKASH,) 4 mg Dose-Pack Take as instructed on packaging. (Patient not taking: Reported on 10/03/2023) omeprazole (PRILOSEC) 20 mg capsule Take 1 capsule by mouth two times a day. 1/2 hr before meal. Leg Brace (YAO KNEE BRACE) misc Sleeve brace left knee No current facility-administered medications for this visit. FAMILY HISTORY Problem Relation Age of Onset Cancer Mother thyroid, skin. - precancerous cervical cells on pap smear Hypertension Mother Breast Cancer Maternal Grandmother Hypertension Maternal Grandmother Asthma Maternal Grandmother Heart Maternal Grandfather Ischemic Heart Disease Maternal Grandfather stomach, ovarian. Heart Attack Paternal Grandfather Ovarian cancer Other Great Grandmother Social History Tobacco Use Smoking status: Never Smokeless tobacco: Never Vaping Use Vaping Use: Former Substances: Nicotine, Flavoring Substance Use Topics Alcohol use: Yes Comment: 1 nightout every 2 months- 2-3 drinks-None since Drug use: No EXAM: BP 110/68 Pulse 86 Resp 16 Wt 110.2 kg (243 lb) LMP 04/19/2023 (Approximate) SpO2 97% BMI 41.07 kg/m PHYSICAL EXAM: Physical Exam Vitals and nursing note reviewed. Constitutional: Appearance: Normal appearance. HENT: Head: Normocephalic. Cardiovascular: Rate and Rhythm: Normal rate and regular rhythm. Pulses: Normal pulses. Heart sounds: Normal heart sounds. Pulmonary: Effort: Pulmonary effort is normal. Breath sounds: Normal breath sounds. Abdominal: Palpations: Abdomen is soft. Musculoskeletal: General: Normal range of motion. Cervical back: Normal range of motion and neck supple. Skin: General: Skin is warm and dry. Neurological: General: No focal deficit present. Mental Status: She is alert and oriented to person, place, and time. Psychiatric: Mood and Affect: Mood normal. Behavior: Behavior normal. LABS: ASSESSMENT/PLAN: 1. Thrombocytosis - ICD9: 238.71, ICD10: D75.839 (primary diagnosis) Not iron deficiency - CONSULT TO HEMATOLOGY 2. Myalgia - ICD9: 729.1, ICD10: M79.10 Possible fibromyalgia - Increase GABAPENTIN 600 MG TABLET 3. Palpitations - ICD9: 785.1, ICD10: R00.2 Increased beta-enrique- no dyspnea - PROPRANOLOL ER 80 MG CAPSULE,24 HR,EXTENDED RELEASE 4. Nausea - ICD9: 787.02, ICD10: R11.0 Ongoing - ONDANSETRON HCL 4 MG TABLET Discussed treatment plan and patient voices understanding. Patient's questions answered appropriately. Medications and potential side effects were discussed and patient voices understanding. Return to the office as scheduled or as needed for worsening/no improvement. Tomasa Laguerre APRN.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 documented in [facility] encounterGe[facility] Telephone encounter Note * Telephone Encounter - Aleah Donis RN - 10/13/2023 12:06 PM EDT Patient notified of provider's instructions. Patient verbalizes understanding. Aleah Donis RN [facility]05-30-2024 Miscellaneous Notes* Telephone Encounter - Aleah Donis RN - 10/13/2023 12:06 PM EDT Patient notified of provider's instructions. Patient verbalizes understanding. Aleah Donis RN * Telephone Encounter - Itzel Altman MA - 10/13/2023 11:59 AM EDT Left message for patient to return call. Itzel Altman Ma * Telephone Encounter - Jes Fuentes MD - 10/13/2023 11:45 AM EDT Ok. Stay on the med. Reviewing latest literature, they recommend keeping it above 20 * Telephone Encounter - Radhika Burks RN - 10/13/2023 10:58 AM EDT Pt called and is notified of providers message. Pt states she is taking the weekly Vit D 50,000 units. Please call and advise. Radhika Burks RN * Telephone Encounter - Dulce Maria Perez OCCA - 10/13/2023 10:13 AM EDT TC no answer. Left additional VM to return call. LUKE Christianson * Telephone Encounter - Sussy De Leon MA - 10/11/2023 3:43 PM EDT Message left for return call. Sussy De Leon MA * Telephone Encounter - Jes Fuentes MD - 10/11/2023 2:38 PM EDT Vit d is low. Is she still taking any vit d supplements? documented in this encounterGe[facility]05-[facility]24 Telephone encounter Note * Telephone Encounter - Itzel Altman MA - 10/13/2023 11:59 AM EDT Left message for patient to return call. Itzel Altman Ma [facility]05-30-2024 Telephone encounter Note* Telephone Encounter - Jes Fuentes MD - 10/13/2023 11:45 AM EDT Ok. Stay on the med. Reviewing latest literature, they recommend keeping it above 20 [facility]05-30-2024 Telephone encounter Note* Telephone Encounter - Radhika Burks RN - 10/13/2023 10:58 AM EDT Pt called and is notified of providers message. Pt states she is taking the weekly Vit D 50,000 units. Please call and advise. Radhika Babulski, RN [facility]05-30-2024 Telephone encounter Note* Telephone Encounter - Dulce Maria Perez OCCA - 10/13/2023 10:13 AM EDT TC no answer. Left additional VM to return call. LUKE Christianson [facility]05-29-2024 Telephone encounter Note* Telephone Encounter - Ne Rolle RN - 10/12/2023 3:29 PM EDT Called patient and relayed provider's message. All questions answered. Patient verbalized understanding. Vicky Rolle RN [facility]05-29-2024 Miscellaneous Notes* Telephone Encounter - Ne Rolle RN - 10/12/2023 3:29 PM EDT Called patient and relayed provider's message. All questions answered. Patient verbalized understanding. Vicky Rolle RN * Telephone Encounter - Zoraida Rodarte APRN.CNP - 10/12/2023 3:22 PM EDT I am sorry to hear she is stuck in a migraine cycle. I have sent a Depakote taper to try and break it. We can discuss her treatment plan at her upcoming appointment. Please give update if not feeling better. Zoraida Rodarte APRN.MARISELA * Telephone Encounter - Jennifer Castillo - 10/12/2023 12:10 PM EDT Call received for Zoraida Rodarte APRN.CNP regarding Maria Elena Garay 1990. Caller: Self Patient Identified by Name and : Yes Was permission obtained from patient ? Yes Reason for Call: Symptoms Patient calling with complaints of: Intense Migraine Frequency: Patient has had migraine for the past 2 weeks - but it is unbearable now. Location: All over Any changes in symptoms: No Associated symptoms: Intense pressure, feels like a hammer hitting head Any medications tried for symptoms: Nurtec rescue, muscle relaxer, nausea med, ibuprofen, tylenol, Old and left over tramadol Any recent change in medication or health: No, but she said that her Botox usually wears off about 3-4 weeks before next round is due, and that is the timeframe we are in now. Any intervention that has helped in the past: Patient didn't say, she said that she doesn't know what else to do or try and she doesn't want to go to the ED because the meds there usually do not helpeither. I offered her an appointment later today, she said that she usually only sees Padmini, and she didn'twant to see anyone else. Last Office Visit: 08/02/2023 Next scheduled appointment: 10/26/2023 Best number to reach caller: [phone] Best time to reach caller: Is it OK to leave a detailed voice message? Yes Jennifer Gregory documented in this encounterGe[facility]05-29-2024 Telephone encounter Note * Telephone Encounter - Zoraida Rodarte APRN.CNP - 10/12/2023 3:22 PM EDT I am sorry to hear she is stuck in a migraine cycle. I have sent a Depakote taper to try and break it. We can discuss her treatment plan at her upcoming appointment. Please give update if not feeling better. Zoraida Rodarte APRN.CNP [facility]05-29-2024 Telephone encounter Note* Telephone Encounter - Jennifer Castillo - 10/12/2023 12:10 PM EDT Call received for Zoraida Rodarte APRN.UI ARCHITECT regarding Maria Elena Garay 1990. Caller: Self Patient Identified by Name and : Yes Was permission obtained from patient ? Yes Reason for Call: Symptoms Patient calling with complaints of: Intense Migraine Frequency: Patient has had migraine for the past 2 weeks - but it is unbearable now. Location: All over Any changes in symptoms: No Associated symptoms: Intense pressure, feels like a hammer hitting head Any medications tried for symptoms: Nurtec rescue, muscle relaxer, nausea med, ibuprofen, tylenol, Old and left over tramadol Any recent change in medication or health: No, but she said that her Botox usually wears off about 3-4 weeks before next round is due, and that is the timeframe we are in now. Any intervention that has helped in the past: Patient didn't say, she said that she doesn't know what else to do or try and she doesn't want to go to the ED because the meds there usually do not helpeither. I offered her an appointment later today, she said that she usually only sees Padmini, and she didn'twant to see anyone else. Last Office Visit: 08/02/2023 Next scheduled appointment: 10/26/2023 Best number to reach caller: [phone] Best time to reach caller: Is it OK to leave a detailed voice message? Yes Jennifer Gregory [facility]05-28-2024 Telephone encounter Note* Telephone Encounter - Sussy De Leon MA - 10/11/2023 3:43 PM EDT Message left for return call. Sussy De Leon MA [facility]05-28-2024 Telephone encounter Note* Telephone Encounter - Jes Fuentes MD - 10/11/2023 2:38 PM EDT Vit d is low. Is she still taking any vit d supplements? [facility] History of Present illness Narrative* Christine Caro RN - 10/03/2023 10:14 AM EDT Patient in for vyepti infusion. Patient rated headache 6/10. Patient stated moderate nausea and mild dizziness. Patient educated on medications to be administered. Patient verbalized understanding and agreed to proceed with infusions. PRN zofran given for nausea. Pts infusions complete. Pt tolerated infusion well. Pt rated headache 6/10. Pt stated mild nausea and mild dizziness. Pt discharged from treatment room. Pt declined scheduling next vyepti at this time. She is planning to discuss continuation of vyepti with Padmini Rodarte NP at her next botox appointment, 10/26/23. documented in this encounterGe[facility]04-[facility]-2024 Telephone encounter Note * Telephone Encounter - Itzel Altman MA - 09/12/2023 1:21 PM EDT Patient was made aware of the results and provider recommendations. Patient verbalizes understanding. Itzel Altman Ma [facility]-29[facility]24 Miscellaneous Notes* Telephone Encounter - Itzel Altman MA - 09/12/2023 1:21 PM EDT Patient was made aware of the results and provider recommendations. Patient verbalizes understanding. Itzel Altman Ma * Telephone Encounter - Tomasa Laguerre APRN.ELISHA - 09/12/2023 10:45 AM EDT Please let patient know that her thyroid checked out normal, electrolytes normal except her calciumlevel was a little elevated. Her white blood count and differential indicate a possible viral infection. I would like to recheck that at her next appointment. If she wants to get it a day or 2 ahead of time, that would be fine. Order pending. Let me know if she develops any fever or chills, burningwith urination, any other signs of infection. Chest x-ray was normal. documented in this encounterGe[facility]04-29-2024 Telephone encounter Note * Telephone Encounter - Tomasa Laguerre APRN.CNS - 09/12/2023 10:45 AM EDT Please let patient know that her thyroid checked out normal, electrolytes normal except her calciumlevel was a little elevated. Her white blood count and differential indicate a possible viral infection. I would like to recheck that at her next appointment. If she wants to get it a day or 2 ahead of time, that would be fine. Order pending. Let me know if she develops any fever or chills, burningwith urination, any other signs of infection. Chest x-ray was normal. [facility] History of Present illness Narrative* Jessica Schilling, RT(R) - 09/09/2023 4:10 PM EDT Radiology Service Progress Note PATIENT NAME: Maria Elena Garay DATE OF SERVICE: September 09, 2023 TIME: 4:02 PM PATIENT IDENTITY VERIFICATION COMPLETED USING TWO (2) IDENTIFIERS: Name and Date of confirmedby patient verbally. FALL SCREENING: Has the patient had 2 falls in the last year or 1 fall with injury or currently using an Ambulatory Assistive Device (Walker, Cane, Wheelchair, Crutches, etc.)? No PATIENT GENDER DATA: Female. status: : No status: NO. PATIENT RELEVANT IMPLANT DATA REVIEWED: Yes PATIENT PRESENTS WITH AN IMPLANTABLE OR ATTACHED EARLY INTERVENTIONIST: No RADIOLOGY DEPARTMENT: General X-ray: Exam(s) Completed: Chest X-Ray PERIPHERAL IV DATA: Not applicable SIGNED BY: RT Phuong(R) September 09, 2023 4:02 PM documented in this encounterGe[facility]04-26-2024 Instructions* Patient Instructions* Tomasa Laguerre APRN.CNS - 09/09/2023 3:37 PM EDT 1) check labs 2) chest Xray 3) decrease lisinopril to 5mg daily 4) ondansetron 1 or 2 tab up to 3 x day 5) follow up in 1 month documented in this encounterGe[facility]04-26-2024 History of Present illness Narrative* Tomasa Laguerre APRN.CNS - 09/09/2023 3:20 PM EDT This is a 33 year old female who presents today with: Patient presents with: Palpitations: Few weeks worse than when she had them 2 years ago Dizziness Nausea HISTORY OF PRESENT ILLNESS: Maria Elena Garay is a 33 year old female. Patient presents with: Palpitations: Few weeks worse than when she had them 2 years ago Dizziness Nausea Palpations when she lies down at night. For the past few weeks. Energy drink in the morning. Nothing else. Not under a lot of stress. No noise in ears. Gets only about 6 hours. Not eating as much. Migraines often. Also gets nauseated and lightheaded at work. No chance of . Tubal ligation. Periods regular. First day of last period- end of July. Migraines. 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 Moore LAPS SURG CHOLECYSTECTOMY W/CHOLANGIOGRAPHY 02/14/2013 SALPINGECTOMY Bilateral 05/31/2019 B/L Salpingectomy at [facility]-Dr. Moore TONSILLECTOMY HX 03/2018 [facility]-Dr. James TUBAL LIGATION HX 01/13/2016 filshie clips ALLERGIES Compazine [Prochlorperazine Edisylate], Reglan [Metoclopramide Hcl], and Seasonal Allergies MEDICATIONS Current Outpatient Medications Medication Sig chlorzoxazone (PARAFON FORTE DSC) 500 mg tablet Take 1 tablet by mouth three times a day as needed. pantoprazole DR (PROTONIX) 40 mg tablet Take 1 tablet by mouth two times a day. NURTEC ODT 75 mg disintegrating tablet TAKE 1 DISSOLVABLE TABLET BY MOUTH AT MIGRAINE ONSET. TAKE ONLY 1 TABLET PER 24 HOURS. ergocalciferol 50,000 unit capsule (VITAMIN D2, DRISDOL) Take 1 capsule by mouth one time a week. lisinopril (ZESTRIL) 20 mg tablet Take 1 tablet by mouth once daily. cyclobenzaprine (FLEXERIL) 10 mg tablet Take 1 tablet by mouth three times a day as needed. gabapentin (NEURONTIN) 400 mg capsule Take 1 capsule by mouth three times a day. propranolol ER (INDERAL LA) 60 mg 24 hr capsule Take 1 capsule by mouth once daily. ondansetron (ZOFRAN) 4 mg tablet Take 1 tablet by mouth once daily as needed (for nausea.). traMADol (ULTRAM) 50 mg tablet Take 1 tablet by mouth every 6 hours as needed for pain. albuterol HFA (PROVENTIL HFA, VENTOLIN HFA) 90 mcg/actuation inhaler Inhale 2 Puffs as instructed every 4 hours as needed for wheezing/shortness of breath. as instructed venlafaxine ER (EFFEXOR XR) 150 mg 24 hr capsule Take 1 capsule by mouth once daily. famotidine (PEPCID) 20 mg tablet Take 1 tablet by mouth at bedtime as needed. albuterol (PROVENTIL) 2.5 mg /3 mL (0.083 %) nebulizer solution Use 3 mL via nebulizer every 4 hours as needed. Use over 5-15minutes. Cholecalciferol, Vitamin D3, 125 mcg (5,000 unit) cap Take 1 capsule by mouth once daily. methylPREDNISolone (MEDROL, AAKASH,) 4 mg Dose-Pack Take as instructed on packaging. omeprazole (PRILOSEC) 20 mg capsule Take 1 capsule by mouth two times a day. 1/2 hr before meal. (Patient not taking: Reported on 09/09/2023) CPAP/BIPAP/OTHER Type .CPAPSettings into a note to see current settings/supplies/DME information. (Patient not taking: Reported on 09/09/2023) Leg Brace (YAO KNEE BRACE) misc Sleeve brace left knee No current facility-administered medications for this visit. FAMILY HISTORY Problem Relation Age of Onset Cancer Mother thyroid, skin. - precancerous cervical cells on pap smear Hypertension Mother Breast Cancer Maternal Grandmother Hypertension Maternal Grandmother Asthma Maternal Grandmother Heart Maternal Grandfather Ischemic Heart Disease Maternal Grandfather stomach, ovarian. Heart Attack Paternal Grandfather Ovarian cancer Other Great Grandmother Social History Tobacco Use Smoking status: Never Smokeless tobacco: Never Vaping Use Vaping Use: Former Substances: Nicotine, Flavoring Substance Use Topics Alcohol use: Yes Comment: 1 nightout every 2 months- 2-3 drinks-None since Drug use: No EXAM: 132/ 78 sitting, 100/58 standing BP 108/66 Pulse 68 Wt 108.4 kg (239 lb) LMP 04/19/2023 (Approximate) SpO2 98% BMI 40.39 kg/m PHYSICAL EXAM: General Appearance: well appearing, alert and oriented. Skin: no suspicious lesion, no rash, no open sores Head: normocephalic, no obvious masses, lesions, tenderness or abnormalities. Neck: trachea midline, thyroid without mass or nodularity, thyroid moves normally with swallow, no regional lymphadenopathy. Lungs: Chest rise & fall symmetrical, Lungs clear to auscultation. No wheezing or rhonchi. No rales. Heart: S1S2, no gallop, no rub, no murmur Mood: bright affect, speech clear, answers questions appropriately LABS: ASSESSMENT/PLAN: 1. Palpitations - ICD9: 785.1, ICD10: R00.2 (primary diagnosis) ongoing - THYROID STIMULATING HORMONE - COMPLETE BLOOD COUNT AND DIFFERENTIAL - COMPREHENSIVE METABOLIC PANEL - MAGNESIUM - ECG COMPLETE- NSR, no abnormality - XR CHEST 2V FRONTAL/LAT - VITAMIN B12 - T4 FREE/FREE THYROXINE - T3 - May need event monitor 2. Hypertension, essential - ICD9: 401.9, ICD10: I10 - Controlled, now orhtostatic - Recommend home blood pressure monitoring, to bring results to next visit - Encouraged sodium restriction, DASH or Mediterranean diet - Recommend regular aerobic exercise - decrease LISINOPRIL from 20mg to 5 MG TABLET 3. Orthostatic hypotension - ICD9: 458.0, ICD10: I95.1 Drinks 64 oz. Water daily - ONDANSETRON HCL 4 MG TABLET - reduce lisinopril as above Discussed treatment plan and patient voices understanding. Patient's questions answered appropriately. Medications and potential side effects were discussed and patient voices understanding. Return to the office as scheduled or as needed for worsening/no improvement. Tomasa Laguerre APRN.CNS The patient indicates understanding of these issues and agrees with the plan. documented in this encounterGe[facility]04-01-2024 Miscellaneous Notes* Telephone Encounter - Russ De Dios PA-C - 2023 10:07 AM EDT Opened in error. documented in this encounterGeorgetown [facility]04-01-2024 History of Present illness Narrative* Christie Linares APRN.CNP - 2023 9:23 AM EDT Images from the original note were not included. [facility] Infusion [facility] Note Subjective: Maria Elena Garay is a 32 year old year old female, with a history of chronic migraine, concussion(2007), anxiety, depression, asthma and following up today for day 3 of infusions. Therapy Plan: DHE New health conditions since orders were placed: no Cardiovascular risk factors (NH/STROKE/CAD/HTN): HTN Last triptan dose: none ordered Last muscle relaxer dose: 08/14/23 parafon forte Last NSAID dose: none ordered Response to infusions: tolerating Current Preventative: Botox, gabapentin, propranolol, Effexor (PCP), Vyepti [facility]: Latest Ref Rng & Units 08/04/2023 CBC WBC 3.70 - 11.00 k/uL 10.10 RBC 3.90 - 5.20 m/uL 5.21 Hemoglobin 11.5 - 15.5 g/dL 13.4 Hematocrit 36.0 - 46.0 % 42.3 MCV 80.0 - 100.0 fL 81.2 MCH 26.0 - 34.0 pg 25.7 MCHC 30.5 - 36.0 g/dL 31.7 RDW-CV 11.5 - 15.0 % 13.4 Platelet Count 150 - 400 k/uL 479 MPV 9.0 - 12.7 fL 10.5 Baso% % 0.7 Abs Neut (ANC) 1.45 - 7.50 k/uL 5.79 Abs Lymph 1.00 - 4.00 k/uL 3.33 Abs [place] <0.87 k/uL 0.53 Abs Eosin <0.46 k/uL 0.35 Abs Baso <0.11 k/uL 0.07 NRBC /100 WBC 0.0 Latest Ref Rng & Units 08/04/2023 CMP Sodium 136 - 144 mmol/L 137 Potassium 3.7 - 5.1 mmol/L 4.3 Chloride 97 - 105 mmol/L 99 CO2 22 - 30 mmol/L 27 Glucose 74 - 99 mg/dL 96 BUN 7 - 21 mg/dL 13 Creatinine 0.58 - 0.96 mg/dL 0.73 EGFR >=60 mL/min/1.73m 112 Calcium 8.5 - 10.2 mg/dL 9.7 ALLERGIES Allergen Reactions Compazine [Prochlor* Other: See Comments Akathisia with IV Compazine Reglan [Metoclopram* Other: See Comments Akathisia with IV Reglan Seasonal Allergies Other: See Comments Current Medications: methylPREDNISolone (MEDROL, AAKASH,) 4 mg Dose-Pack^Take as instructed on packaging.^Disp: 21 tablet^Rfl: 0 (Patient not taking: Reported on 08/11/2023) chlorzoxazone (PARAFON FORTE DSC) 500 mg tablet^Take 1 tablet by mouth three times a day as needed.^Disp: 60 tablet^Rfl: [address] (PROTONIX) 40 mg tablet^Take 1 tablet by mouth two times a day.^Disp: 60 tablet^Rfl: 2 NURTEC ODT 75 mg disintegrating tablet^TAKE 1 DISSOLVABLE TABLET BY MOUTH AT MIGRAINE ONSET. TAKE ONLY 1 TABLET PER 24 HOURS.^Disp: 8 tablet^Rfl: 13 ergocalciferol 50,000 unit capsule (VITAMIN D2, DRISDOL)^Take 1 capsule by mouth one time a week.^Disp: 12 capsule^Rfl: 3 lisinopril (ZESTRIL) 20 mg tablet^Take 1 tablet by mouth once daily.^Disp: 90 tablet^Rfl: 3 cyclobenzaprine (FLEXERIL) 10 mg tablet^Take 1 tablet by mouth three times a day as needed.^Disp: 30 tablet^Rfl: 0 omeprazole (PRILOSEC) 20 mg capsule^Take 1 capsule by mouth two times a day. 1/2 hr before meal.^Disp: 60 capsule^Rfl: 5 gabapentin (NEURONTIN) 400 mg capsule^Take 1 capsule by mouth three times a day.^Disp: 270 capsule^Rfl: 3 propranolol ER (INDERAL LA) 60 mg 24 hr capsule^Take 1 capsule by mouth once daily.^Disp: 30 capsule^Rfl: 5 ondansetron (ZOFRAN) 4 mg tablet^Take 1 tablet by mouth once daily as needed (for nausea.).^Disp: 20 tablet^Rfl: 11 traMADol (ULTRAM) 50 mg tablet^Take 1 tablet by mouth every 6 hours as needed for pain.^Disp: 21 tablet^Rfl: 0 CPAP/BIPAP/OTHER^Type .CPAPSettings into a note to see current settings/supplies/DME information.^Disp: 1 Each^Rfl: 0 albuterol HFA (PROVENTIL HFA, VENTOLIN HFA) 90 mcg/actuation inhaler^Inhale 2 Puffs as instructed every 4 hours as needed for wheezing/shortness of breath. as instructed^Disp: 1 Each^Rfl: 5 venlafaxine ER (EFFEXOR XR) 150 mg 24 hr capsule^Take 1 capsule by mouth once daily.^Disp: 90 capsule^Rfl: 3 famotidine (PEPCID) 20 mg tablet^Take 1 tablet by mouth at bedtime as needed.^Disp: 30 tablet^Rfl: 0 albuterol (PROVENTIL) 2.5 mg /3 mL (0.083 %) nebulizer solution^Use 3 mL via nebulizer every 4 hours as needed. Use over 5-15minutes.^Disp: 1 Package^Rfl: 0 Cholecalciferol, Vitamin D3, 125 mcg (5,000 unit) cap^Take 1 capsule by mouth once daily.^Disp: ^Rfl: Leg Brace (YAO KNEE BRACE) misc^Sleeve brace left knee^Disp: 1 Each^Rfl: 0 Review of Systems: Review of system : unchanged from the previous visit (sleep patterns, mood, energy, appetite, stress, exercising). Objective: VS: see infusion note for vital signs General: well appearing, in no acute distress, alert Lungs: normal breath sounds bilaterally CV: RRR, normal S1, S2 auscultated, no murmurs, and no JVD GI: Bowel sounds present in all four quadrants. Neurological: Pain Behaviors: no pain behaviors observed Mental Status: Alert and oriented to person, place and time. Affect is normal and appropriate. Speech is spontaneous and fluent without dysarthria, normal in rate, volume and articulation, and clear,coherent, and relevant. Short and group home memory, cognition and general fund of knowledge are good. Attention span and concentration are excellent. Cranial Nerves: VII-face is symmetric without evidence of weakness. VIII-hearing intact. Assessment: Intractable chronic 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 (primary encounter diagnosis) Plan: Maria Elena Garay is a 32 year old year old female, with a history of chronic migraine, concussion(2007), anxiety, depression, asthma and following up today for day 3 of infusions. Still rates her pain 7/10 today at time of assessment, will add-on Depacon and periactin to infusions today. If periactin helpful we can consider using this on an as needed basis in the future. She is not interested in GONB, reports this made headaches worse in the past. Discussed having her see pain management to further discuss her headaches, she would like to hold off at this time, will plan to continue Botox and Vyepti. Response to infusions: tolerating Discharge Instructions: return for Botox as scheduled Follow up plan: consider pain management referral or Qulipta Level of service: Est level 3 (20-29 min). Time spent 20 min on the day of service, which included preparing to see the patient, [id number] patient care, completing clinical documentation, and obtaining and/or reviewing separately obtained history. Christie Linares APRN.CNP Headache [facility] 2023 documented in this encounterGe[facility]04-01-2024 History of Present illness Narrative* Ken Sharpe RN - 2023 9:18 AM EDT Patient in for 3 day of IV infusions. Patient rated headache 7/10. Patient stated moderate nausea and no dizziness. Patient educated on medications to be administered and a star route mail driver to transport home was confirmed. Patient verbalized understanding and agreed to proceed with infusions. PRN zofran given for increased nausea PRN phenergan given for continued nausea Pts infusions complete. Pt tolerated infusion well. Pt rated headache 6/10. Pt stated mild nausea and mild dizziness. Pt discharged from treatment room. documented in this encounterGe[facility]03-27-2024 Miscellaneous Notes* Telephone Encounter - Kim Dwyer - 08/10/2023 11:03 AM EDT Called patient and scheduled her for 2 days of infusion as she did not think she could make it Tuesday for her 3rd day. * Addendum Note - Zoraida Rodarte APRN.CNP - 08/10/2023 10:13 AM EDT Addended by: ZORAIDA RODARTE on: 08/10/2023 10:13 AM Modules accepted: Orders * Telephone Encounter - Zoraida Rodarte APRN.CNP - 08/10/2023 10:12 AM EDT Infusion orders in. Patient will need to hold and NSAIDs (Ibuprofen, Excedrin, etc.) and muscle relaxer (Chlorzoxazone) days of infusions. No triptans 24 hours prior, days of infusions or 24 hours following. She will need a star route mail driver. Zoraida Rodarte APRN.CNP * Telephone Encounter - Enriqueta Lopez - 08/10/2023 9:46 AM EDT Patient does not have orders. Reaching out to provider to see if they will place orders. * Telephone Encounter - Ashli Sommer - 08/10/2023 8:10 AM EDT Patient called in regards to setting up infusion appointments. Stated it was recommended by provider as next step. And if possible would like to get in next day. documented in this encounterGe[facility]03-21-2024 Instructions* Patient Instructions* Tomasa Laguerre APRN.CNS - 08/04/2023 3:28 PM EDT 1) Stop HCTZ 2) Check BP twice in next 2 weeks (goal <135/ <85), report back if too high 3) Get labs today 4) Keep follow up with Dr. Fuentes in November documented in this encounterGe[facility]03-21-2024 History of Present illness Narrative* Tomasa Laguerre APRN.CNS - 08/04/2023 3:08 PM EDT This is a 32 year old female who presents today with: Patient presents with: Blood Pressure HISTORY OF PRESENT ILLNESS: Maria Elena Garay is a 32 year old female. Patient presents with: Blood Pressure Has migraine. Trying to be more diligent about taking medications for a couple weeks Having episodes of lightheadedness with quick turns. Some nausea. Has migraine right now. Light sensitive. Extremely thirsty. No edema or history thereof. No hopelessness, helplessness, or anxiety HTN: Patient is compliant with meds yes, just recently Monitors bp at home: Yes. Denies side effects: No. Having near syncope Chest pain: No. Dyspnea: No. Edema: No. Palpitations: No. Syncope: No. Headache: Yes. Dizziness: Yes. 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 Moore LAPSergei SURG CHOLECYSTECTOMY W/CHOLANGIOGRAPHY 02/14/2013 SALPINGECTOMY Bilateral 05/31/2019 B/L Salpingectomy at [facility]-Dr. Moore TONSILLECTOMY HX 03/2018 [facility]-Dr. James TUBAL LIGATION HX 01/13/2016 filshie clips ALLERGIES Compazine [Prochlorperazine Edisylate], Reglan [Metoclopramide Hcl], and Seasonal Allergies MEDICATIONS Current Outpatient Medications Medication Sig chlorzoxazone (PARAFON FORTE DSC) 500 mg tablet Take 1 tablet by mouth three times a day as needed. pantoprazole DR (PROTONIX) 40 mg tablet Take 1 tablet by mouth two times a day. NURTEC ODT 75 mg disintegrating tablet TAKE 1 DISSOLVABLE TABLET BY MOUTH AT MIGRAINE ONSET. TAKE ONLY 1 TABLET PER 24 HOURS. lisinopril (ZESTRIL) 20 mg tablet Take 1 tablet by mouth once daily. cyclobenzaprine (FLEXERIL) 10 mg tablet Take 1 tablet by mouth three times a day as needed. gabapentin (NEURONTIN) 400 mg capsule Take 1 capsule by mouth three times a day. propranolol ER (INDERAL LA) 60 mg 24 hr capsule Take 1 capsule by mouth once daily. hydroCHLOROthiazide 12.5 mg capsule Take 1 capsule by mouth once daily. ondansetron (ZOFRAN) 4 mg tablet Take 1 tablet by mouth once daily as needed (for nausea.). traMADol (ULTRAM) 50 mg tablet Take 1 tablet by mouth every 6 hours as needed for pain. albuterol HFA (PROVENTIL HFA, VENTOLIN HFA) 90 mcg/actuation inhaler Inhale 2 Puffs as instructed every 4 hours as needed for wheezing/shortness of breath. as instructed venlafaxine ER (EFFEXOR XR) 150 mg 24 hr capsule Take 1 capsule by mouth once daily. famotidine (PEPCID) 20 mg tablet Take 1 tablet by mouth at bedtime as needed. albuterol (PROVENTIL) 2.5 mg /3 mL (0.083 %) nebulizer solution Use 3 mL via nebulizer every 4 hours as needed. Use over 5-15minutes. Cholecalciferol, Vitamin D3, 125 mcg (5,000 unit) cap Take 1 capsule by mouth once daily. methylPREDNISolone (MEDROL, AAKASH,) 4 mg Dose-Pack Take as instructed on packaging. ergocalciferol 50,000 unit capsule (VITAMIN D2, DRISDOL) Take 1 capsule by mouth one time a week. omeprazole (PRILOSEC) 20 mg capsule Take 1 capsule by mouth two times a day. 1/2 hr before meal. CPAP/BIPAP/OTHER Type .CPAPSettings into a note to see current settings/supplies/DME information. Leg Brace (YAO KNEE BRACE) misc Sleeve brace left knee No current facility-administered medications for this visit. FAMILY HISTORY Problem Relation Age of Onset Cancer Mother thyroid, skin. - precancerous cervical cells on pap smear Hypertension Mother Breast Cancer Maternal Grandmother Hypertension Maternal Grandmother Asthma Maternal Grandmother Heart Maternal Grandfather Ischemic Heart Disease Maternal Grandfather stomach, ovarian. Heart Attack Paternal Grandfather Ovarian cancer Other Great Grandmother Social History Tobacco Use Smoking status: Never Smokeless tobacco: Never Vaping Use Vaping Use: Former Substances: Nicotine, Flavoring Substance Use Topics Alcohol use: Yes Comment: 1 nightout every 2 months- 2-3 drinks-None since Drug use: No EXAM: BP sitting 116/78, standing 110/62 BP 140/80 Pulse 66 Wt 106.6 kg (235 lb) LMP 04/19/2023 (Approximate) SpO2 99% BMI 39.71 kg/m PHYSICAL EXAM: General Appearance: Well appearing, alert, in no acute distress, well-hydrated, well nourished.. Skin: Skin color, texture, turgor normal, no suspicious rashes or lesions. Head: Normocephalic, no masses, lesions, tenderness or abnormalities. Eyes: Anicteric sclera. Pupils are equally round and reactive to light. Extraocular movements are intact. . Neck: Supple, no adenopathy; thyroid symmetric, normal size, no bruits. Lungs: Lungs clear to auscultation. No wheezing, rhonchi, rales.. Heart: RRR without murmur, gallop, or rubs. No ectopy. Abdomen: Normal abdominal exam, Abdomen soft, non-tender. Bowel sounds normal. No masses, organomegaly. Extremities: No deformities, edema, skin discoloration, clubbing or cyanosis. Good capillary refill. . Neurologic: Gait normal. Reflexes normal and symmetric. Sensation grossly intact.. LABS: ASSESSMENT/PLAN: 1. Hypertension, essential - ICD9: 401.9, ICD10: I10 (primary diagnosis) - Controlled - Recommend home blood pressure monitoring, to bring results to next visit - Encouraged sodium restriction, DASH or Mediterranean diet - Recommend regular aerobic exercise - D/C HCTZ, continue all others 2. Vitamin D deficiency - ICD9: 268.9, ICD10: E55.9 On replacement 3. BLAISE (obstructive sleep apnea) - ICD9: 327.23, ICD10: G47.33 Not wearing CPAP regularly - Being machine back 4. Anxiety with depression - ICD9: 300.4, ICD10: F41.8 Stable - on medication 5. Leukocytosis- check B12, CBC, iron, & ferritin Discussed treatment plan and patient voices understanding. Patient's questions answered appropriately. Medications and potential side effects were discussed and patient voices understanding. Return to the office as scheduled or as needed for worsening/no improvement. Tomasa Laguerre APRN.CNS The patient indicates understanding of these issues and agrees with the plan. documented in this encounterGe[facility]03-20-2024 Miscellaneous Notes* Telephone Encounter - Holly Burciaga RN - 08/03/2023 11:21 AM EDT Botox referral sent to pharmacy. Holly Burciaga RN documented in this encounterGeorgetown Behavioral Hospital03-19-2024 Instructions* Patient Instructions* Zoraida Rodarte APRN.CNP - 08/02/2023 1:43 PM EDT AFTER VISIT CARE BOTOX INJECTION While these procedures can be extremely helpful as part of your headache treatment plan, they can irritate the muscles and tissues in your head, neck and shoulders. Proper follow-up care is important to avoid muscle spasms and temporary pain increase within the following 3-5 days after your clinic visit. Here are some tips to help decrease side-effects that may occur and maximize the effectiveness of your pain relief -HYDRATION Hydration is important to help nourish your muscles and tissues. Drink 60-80 oz of non caffeinated fluid at least for 3 days after your visit. -REST Rest will help avoid further irritation of muscle and tissues. Remember that you need to give your body time to adjust. NO strenuous activity for at least the first 24 hours after your visit. Gentle stretching, yoga, meditation or even swimming is OK and encouraged. -ICE/HEAT Since these procedures irritate muscles, there can be some swelling. Alternating ice and heat every3-5 times per day may help decrease this, while also optimizing pain relief Use cool gel packs for ice for 10 min. Use a warm moist towel covered with a dry towel on neck and shoulders. Alternate stretching each side of the neck. -STRETCHING Slow, gentle stretching of the neck and shoulders once every hour is helpful to avoid muscle spasms. -TREAT MUSCLE SPASMS If you are already prescribed a muscle relaxer such as baclofen, tizanidine or flexeril, use as directed. If you do not have one, talk to your provider to find out if this would be safe for you to use. Do not rub or massage the area for 48- 72 hours. -OTHER No hair dyes or permanents for 24 hours. If you are paying out of pocket for Botox go online to Botox Savings Program and see if you qualifyfor reimbursement. Return in 3 months for your next Botox Injection [facility] History of Present illness Narrative* Zoraida Rodarte APRN.MARISELA - 08/02/2023 1:30 PM EDT Images from the original note were not included. Headache Center Follow-up Visit Impression: Chronic migraine without aura, intractable, without status migrainosus (primary encounter diagnosis) Follow-Up Onabotulinum Toxin A (BotoxTM) for Migraine Indication: Chronic Intractable Migraine Referral Expiration: 09/19/2023 Prior to the initiation of the FIRST treatment with Onabotulinum Toxin A, the patient reported the following average headache frequency over the past 3 MONTHS: Number of moderate-severe migraine days/month: 30 (daily) Number of mild migraine days/month: 0 Number of headache free days/month: 0 (0 headache-free hours) After treatment with Onabotulinum Toxin A: Number of moderate-severe migraine days/month: 10 Number of mild migraine days/month: 10 Number of headache free days/month: 10 (240 headache-free hours) Patient reduction in overall migraine days: Yes Patient reduction in moderate-severe migraine days: Yes Patient reduction of headache hours by 100 hours or more: Yes (reduction of 240 hours) Individual has obtained clinical benefit deemed significant by individual or prescriber (Y/N): Yes Patient's quality of life and ability to perform ADLs has improved (Y/N): Yes Side effects: none Wearing off: Yes - 9 weeks after treatment The patient has been assessed for disorders which could contribute to breathing or swallowing difficulty, and there is no contraindication with PREEMPT Botox. There is no documented allergic reaction/hypersensitivity to any botulinum toxin and there is no active infection at proposed injection site. HEADACHE SCORES: 05/27/2022 08/03/2022 11/02/2022 Headache Questions ER visits since last office visit: 1 0 Hospital stays since last office visit 0 0 Limited ADLs in the last month: 12 20 Days missed from work or school in the last month: 5 4 Days headache pain free in the last month: 5 10 Days per month with ALL of the following symptoms - decreased productivity, light sensitivity and nausea: 18 20 Initial improvement of headache after botox injection at last visit: No change Minimally improved PRN medication usage in the last month: 18 5 Patient impression of improvement since last visit: Minimally worse No change No change 05/03/2022 08/03/2022 11/02/2022 HIT-6 HIT-6 63 (Severe impact) 65 (Severe impact) 75 (Severe impact) 05/03/2022 08/03/2022 11/02/2022 MYLA - 2/7 SCORES MYLA-2 Score 2 2 3 MYLA-7 Score 13 05/03/2022 08/03/2022 11/02/2022 Migraine Specific QOL - Higher scores indicate better HRQL Role Function-Restrictive Transformed Score (range: 0-100) 60 37.14 28.57 Role Function-Preventive Transformed Score (range: 0-100) 60 50 75 Emotional Function Transformed Score (range: 0-100) 60 20 20 11/02/2022 08/03/2022 05/03/2022 PHQ-9 Score 12 12 6 BP 112/77 (BP Site: Right Arm, BP Position: Sitting) Pulse 66 Ht 163.8 cm (5' 4.5) Wt 107.4 kg (236 lb 12.4 oz) LMP 04/19/2023 (Approximate) SpO2 97% BMI 40.01 kg/m Patient name: Maria Elena Isis Garay : 1990 ALLERGIES Allergen Reactions Compazine [Prochlor* Other: See Comments Akathisia with IV Compazine Reglan [Metoclopram* Other: See Comments Akathisia with IV Reglan Seasonal Allergies Other: See Comments UNIVERSAL PROTOCOL / SAFETY CHECKLIST Procedure: Onabotulinum toxin A for migraine Informed Consent Consent Obtained: Written Phelps Protocol A moment to CARE was completed SIGN IN Personnel directly involved with the procedure wore the appropriate PPE Special Equipment: N/A Patient/Surrogate Stated/Verified: Patient name, Date of , Relevant allergies and Intended procedure TIME OUT Intended patient and procedure match the source document(s) Consent documented and matches the intended procedure No relevant labs, photos, and/or imaging studies were applicable for review. No correct side/site applicable for marking and visibility. No medications required for procedure. No fire risk assessment and interventions applicable. No implant(s) inserted. SIGN OUT No specimen collected. No instruments, equipment or retained foreign bodies applicable. Post-procedure follow-up management communicated and Plan of Care Visit completed when applicable Written Consent Obtained: Written LOT #: [id number] Expiration Date: Month: Year: 2024 Second vial: LOT #: [id number] Expiration Date: Month: Year: 2024 Injection Sites Left (Units) Left (Sites) Right (Units) Right (Sites) TOTAL (Units) Obstetrics Nurse Practitioner 5 1 5 1 10 Procerus Units: 5 Sites: 1 5 Frontalis 10 2 10 2 20 Temporalis optional follow the pain 20 10 4 2 20 10 4 2 60 Occipitalis optional follow the pain 15 5 3 1 15 5 3 1 40 Cervical PSP 10 2 10 2 20 Trapezius optional follow the pain 15 5 3 1 15 5 3 1 40 Total Units used: 195 Total Units wasted: 5 Patient tolerated procedure well. Prior Therapies Duration of Use Dose Side effect Analgesic Butalbital/acetaminophen/caffeine (Fioricet) Diclofenac (Voltaren, Cataflam, Cambia) Hydrocodone/Acetaminophen (Vicodin, Cowpens) Ketorolac (Toradol) Meclofenamate (Meclomen) Meloxicam (Mobic) Oxycodone/Acetaminophen (Percocet) Tramadol (Ultram) Anti-Anxiety Buspirone (Buspar) Anti-Convulsant Carbamazepine (Tegretol) Gabapentin (Neurontin) Topiramate (Topamax, Trokendi XL, Qudexy) Anti-Depressant and Antipsychotic Amitriptyline (Elavil) Bupropion (Wellbutrin) Citalopram (Celexa) Fluoxetine (Prozac) Sertraline (Zoloft) Venlafaxine (Effexor) Antiemetics Promethazine Reglan (Metoclopramide) Anti-Migraine Dihydroergotamine (DHE-45, Migranal) Eletriptan (Relpax) Naratriptan (Amerge) Rizatriptan (Maxalt) Sumatriptan (Imitrex, Sumavel) Blood Pressure Lisinopril (Zestril) Propranolol (Inderal) MABs Erenumab (Aimovig) Galcanezumab (Emgality) Eptinezumab (Vyepti) GEPANTS Ubrogepant (Ubrelvy) Rimegepant (Nurtec) Botulinum Toxin Onabotulinum Toxin A (Botox) 6 treatments Muscle Relaxer Chlorzoxazone (Parafon Forte) Cyclobenzaprine (Flexeril) Supplements Magnesium Other Medications Prednisone Over the Counter Medications Acetaminophen (Tylenol) Acetaminophen/Aspirin/Caffeine (Excedrin, Goody s) Naproxen sodium (Aleve) Zoraida Rodarte APRN.UI ARCHITECT documented in this [facility]Ge[facility] Procedure note* Zoraida Rodarte APRN.UI ARCHITECT - 07/21/2023 2:00 PM EST Procedure Note: Greater Occipital Nerve Block UNIVERSAL PROTOCOL / SAFETY CHECKLIST Procedure to be Performed: Bilateral Greater Occipital Nerve Block Sign In: A Moment of CARE was completed. Personnel directly involved with the procedure wore the appropriate PPE (Personal Protective Equipment). Patient/Surrogate Stated/Verified: PATIENT VERIFIED(optional for EMERGENT procedures): Patient name, Date of , Relevant allergies, and The intended procedure Time Out Communication: Intended patient and procedure match the source documents. Consent documented and matches the intended procedure. Correct side/site marked and visible. Medications required for procedure verified. Sign Out: SIGN OUT (optional for EMERGENT procedures): No specimen collected. Post-procedure follow-up management communicated and Plan of Care Visit completed when applicable. Zoraida Rodarte APRN.CNP 6 cc 0.25% Bupivacaine were injected into the Bilateral Greater Occipital Nerves. The occipital nerve(s) was injected 3cm caudal and 1.5 cm lateral to the inion where the main trunkof the occipital nerve penetrates the semispinalis muscle. The needle was placed perpendicular and the needle advanced 1.5 cm. After aspiration to ensure no obstruction or presence of blood, the areawas injected. The needle was repositioned in a fan-like manner and the entire area was injected. The patient was told to use heat if there was discomfort later in the day. Pre injection pain 7/10 Post injection: Patient notes mild improvement so far. Patient tolerated the procedure well. documented [facility]24 Instructions* Patient Instructions* Zoraida Rodarte APRN.CNP - 07/21/2023 11:59 AM EST You received a greater occipital nerve block today. You may feel sore tomorrow at the site of the injection. You may use heat or ice for discomfort. This should resolve in 24-36 hours. documented in this [facility]Ge[facility] History of Present illness Narrative* Zoraida Rodarte APRN.CNP - 07/21/2023 11:00 AM EST Headache Center - Follow up Visit Accompanied by: Self Primary Problem List: ACTIVE PROBLEM LIST Anxiety Asthma Thyromegaly Obesity, Class II, Bmi 35-39.9 Thrombocytosis Neutropenia (Hcc) Hypertension, Essential Migraine Without Aura, Intractable, With Status Migrainosus Patellofemoral Arthralgia of Right Knee Intractable Chronic Migraine Without Aura and Without Status Migrainosus Left-Sided Low Back Pain With Left-Sided Sciatica Abdominal Pain Acute Appendicitis Chronic Tonsillitis Conjunctivitis Nausea Postoperative Hemorrhage Pharyngitis Strain of Lumbar Region Strain of Muscle At Thorax Level Vitamin D Deficiency Dyspepsia Chief Complaint: Follow-up Impression and Plan from last visit: [facility] 04/29/2023 with Mushtaq Alvarez CNP. Ms. Garay is a 32-year-old female with history significant for chronic migraine, concussion (2007), anxiety, depression, asthma and goiter. At her last visit she received Botox. Interval Headache History: She was recently diagnosed with eosinophilic esophagitis. She has been experiencing more nausea andtreating with Zofran. She is treating with Protonix and has been on for a few weeks. Her last Vyepti infusion was 06/24 at 300 mg dose. She has been noticing some reduction in her headaches with the combination of this and Botox. Often worse with stress and around her menses. She does admit that she may be inconsistent with her preventive medications, especially the Propranolol and Effexor. Nurtec is effective and does lower the intensity. Given her BP she would not be a candidate for triptan. Headache 1 Location: bilateral, frontal, occipital and temporal Quality/Description: pressure Associated Symptoms: Photophobia: yes Phonophobia: yes Nausea: yes Vomiting: yes - when severe Other symptoms: dizziness, confusion, neck pain and vertigo Worse with activity: yes Number of migraine headache days/month: 10 Number of NON-migraine headache days/month: 10 Total Number of headache days/month: 20 Number of headache free days/month: 10 Duration of headaches with treatment: days Current preventive treatment: Botox, Vyepti, Gabapentin, Propranolol, Lisinopril (with PCP), Effexor (with PCP) Current abortive treatment: Parafon Forte, Nurtec, Flexeril (with PCP), Amerge Triggers: menses Relieving factors: Medication, sleep, dark Positional changes: no Aura: floaters Allodynia: yes Prior Therapies Duration of Use Dose Reason for Discontinuation Analgesic Butalbital/acetaminophen/caffeine (Fioricet) Diclofenac (Voltaren, Cataflam, Cambia) Hydrocodone/Acetaminophen (Vicodin, Cowpens) Ketorolac (Toradol) Meclofenamate (Meclomen) Meloxicam (Mobic) Oxycodone/Acetaminophen (Percocet) Tramadol (Ultram) Anti-Anxiety Buspirone (Buspar) Anti-Convulsant Carbamazepine (Tegretol) Gabapentin (Neurontin) Topiramate (Topamax, Trokendi XL, Qudexy) Anti-Depressant and Antipsychotic Amitriptyline (Elavil) Bupropion (Wellbutrin) Citalopram (Celexa) Fluoxetine (Prozac) Sertraline (Zoloft) Venlafaxine (Effexor) Antiemetics Promethazine Reglan (Metoclopramide) Anti-Migraine Dihydroergotamine (DHE-45, Migranal) Eletriptan (Relpax) Naratriptan (Amerge) Rizatriptan (Maxalt) Sumatriptan (Imitrex, Sumavel) Blood Pressure Lisinopril (Zestril) Propranolol (Inderal) MABs Erenumab (Aimovig) Galcanezumab (Emgality) Eptinezumab (Vyepti) GEPANTS Ubrogepant (Ubrelvy) Rimegepant (Nurtec) Botulinum Toxin Onabotulinum Toxin A (Botox) 6 treatments Muscle Relaxer Chlorzoxazone (Parafon Forte) Cyclobenzaprine (Flexeril) Supplements Magnesium Other Medications Prednisone Over the Counter Medications Acetaminophen (Tylenol) Acetaminophen/Aspirin/Caffeine (Excedrin, Goody s) Naproxen sodium (Aleve) PAST MEDICAL HISTORY Diagnosis Date Abnormal Pap smear of cervix ASCUS Acute appendicitis 04/2021 Allergic rhinitis, cause unspecified Anxiety 03/17/2010 buspar Arthritis Asthma Concussion 2007 Dysmenorrhea Excessive or frequent menstruation Heavy periods Mental disorder Migraine, unspecified, with intractable migraine, so stated, without mention of status migrainosus Migraine Ovarian cyst resolved Pain in joint, pelvic region and thigh 07/29/2014 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 Moore LAPS SURG CHOLECYSTECTOMY W/CHOLANGIOGRAPHY 02/14/2013 SALPINGECTOMY Bilateral 05/31/2019 B/L Salpingectomy at [facility]-Dr. Moore TONSILLECTOMY HX 03/2018 [facility]-Dr. James TUBAL LIGATION HX 01/13/2016 filshie clips ALLERGIES Allergen Reactions Compazine [Prochlor* Other: See Comments Akathisia with IV Compazine Reglan [Metoclopram* Other: See Comments Akathisia with IV Reglan Seasonal Allergies Other: See Comments Issues and questions to be addressed: Medications pantoprazole DR (PROTONIX) 40 mg tablet Take 1 tablet by mouth two times a day. NURTEC ODT 75 mg disintegrating tablet TAKE 1 DISSOLVABLE TABLET BY MOUTH AT MIGRAINE ONSET. TAKE ONLY 1 TABLET PER 24 HOURS. chlorzoxazone (PARAFON FORTE DSC) 500 mg tablet take 1 tablet by mouth three times a day as needed ergocalciferol 50,000 unit capsule (VITAMIN D2, DRISDOL) Take 1 capsule by mouth one time a week. lisinopril (ZESTRIL) 20 mg tablet Take 1 tablet by mouth once daily. cyclobenzaprine (FLEXERIL) 10 mg tablet Take 1 tablet by mouth three times a day as needed. omeprazole (PRILOSEC) 20 mg capsule Take 1 capsule by mouth two times a day. 1/2 hr before meal. gabapentin (NEURONTIN) 400 mg capsule Take 1 capsule by mouth three times a day. propranolol ER (INDERAL LA) 60 mg 24 hr capsule Take 1 capsule by mouth once daily. hydroCHLOROthiazide 12.5 mg capsule Take 1 capsule by mouth once daily. ondansetron (ZOFRAN) 4 mg tablet Take 1 tablet by mouth once daily as needed (for nausea.). traMADol (ULTRAM) 50 mg tablet Take 1 tablet by mouth every 6 hours as needed for pain. CPAP/BIPAP/OTHER Type .CPAPSettings into a note to see current settings/supplies/DME information. albuterol HFA (PROVENTIL HFA, VENTOLIN HFA) 90 mcg/actuation inhaler Inhale 2 Puffs as instructed every 4 hours as needed for wheezing/shortness of breath. as instructed venlafaxine ER (EFFEXOR XR) 150 mg 24 hr capsule Take 1 capsule by mouth once daily. famotidine (PEPCID) 20 mg tablet Take 1 tablet by mouth at bedtime as needed. (Patient not taking: Reported on 07/06/2023) naratriptan (AMERGE) 2.5 mg tablet Take 1 tablet by mouth as needed. albuterol (PROVENTIL) 2.5 mg /3 mL (0.083 %) nebulizer solution Use 3 mL via nebulizer every 4 hours as needed. Use over 5-15minutes. Cholecalciferol, Vitamin D3, 125 mcg (5,000 unit) cap Take 1 capsule by mouth once daily. Leg Brace (YAO KNEE BRACE) misc Sleeve brace left knee I have reviewed the Juan Status Assessment responses and discussed these with the patient: No, patient did not complete. Zoraida Rodarte APRN.UI ARCHITECT Studies to Review: MRI Head/Brain - Last 2 Impressions MRI BRAIN WO/W IVCON Collected: 10/26/2016 10:12 AM (Final result) Impression: IMPRESSION: No evidence of an acute intracranial process, mass, or abnormal enhancement. ... New Health Issues: No New Social History: No New Family History: No Review of Systems: Review of system: unchanged from the previous visit (sleep patterns, mood, energy, appetite, stress, exercising). Physical Examination: BP 154/113 Pulse 90 Ht 165.1 cm (5' 5) Wt 109.8 kg (242 lb) LMP 04/19/2023 (Approximate) BMI 40.27 kg/m Repeat BP 146/96. Advised to notify PCP. General: Well appearing, in no acute distress, alert. HEENT: Normocephalic/atraumatic. Skin: Color, texture, turgor normal. No rashes or lesions. Lungs: Normal breath sounds bilaterally. CV: RRR, normal S1, S2 auscultated, and no murmurs. Musculoskeletal: No gross joint deformities. Tenderness to palpation of cervical spine and upper trapezius bilaterally. Suboccipital tenderness bilaterally. Neurological: Normal mental status. Cranial nerves II-XII intact. Normal tone and strength. Normal coordination. DTRs are intact and symmetric bilaterally. Normal gait. IMPRESSION: Chronic migraine without aura, intractable, without status migrainosus (primary encounter diagnosis) Cervicalgia Bilateral occipital neuralgia Ms. Garay is a 32-year-old female with history significant for chronic migraine, concussion (2007), anxiety, depression, asthma and goiter. She continues to have headaches most consistent with chronic migraine. She has seen benefit with the combination of Botox and Vyepti with reduced migraine antonietta quency. She does often have a migraine triggered following Botox treatment and will treat with Parafon Forte. She does admit that she has not been taking Propranolol or Effexor consistently. We reviewed the importance of taking these consistently for not only headache but also to target mood and BP. She also reports intractable migraine over the past few days. On examination there was associated cervical musculoskeletal and suboccipital tenderness. We discussed trial of JE block today to target occipital nerve irritation and current migraine. Neurological examination is essentially normal atthis visit. Maria Elena Isis Garay has been previously approved for Calcitonin Gene Related Peptide Monoclonal Antibody (CGRP MAB) (Eptinezumab). The patient has demonstrated the following: Patient reduction in overall migraine days: Yes Patient reduction in moderate-severe migraine days: Yes Individual has obtained clinical benefit deemed significant by individual or prescriber: Yes Patient's quality of life and ability to perform ADLs has improved: Yes We suggest the patient continue treatment with CGRP MAB Eptinezumab. The following preventative medications have been tried for three or more months without benefit: Anti-Convulsant Carbamazepine (Tegretol) Gabapentin (Neurontin) Topiramate (Topamax, Trokendi XL, Qudexy) Anti-Depressant and Antipsychotic Amitriptyline (Elavil) Bupropion (Wellbutrin) Citalopram (Celexa) Fluoxetine (Prozac) Sertraline (Zoloft) Venlafaxine (Effexor) Blood Pressure Lisinopril (Zestril) Propranolol (Inderal) MABs Erenumab (Aimovig) Galcanezumab (Emgality) Eptinezumab (Vyepti) Botulinum Toxin Onabotulinum Toxin A (Botox) 6 treatments Supplements Magnesium The following abortive medications have been tried but require high frequency use which can lead toMedication Overuse Headache: Analgesic Butalbital/acetaminophen/caffeine (Fioricet) Diclofenac (Voltaren, Cataflam, Cambia) Hydrocodone/Acetaminophen (Vicodin, Cowpens) Ketorolac (Toradol) Meclofenamate (Meclomen) Meloxicam (Mobic) Oxycodone/Acetaminophen (Percocet) Tramadol (Ultram) Anti-Anxiety Buspirone (Buspar) Anti-Migraine Dihydroergotamine (DHE-45, Migranal) Eletriptan (Relpax) Naratriptan (Amerge) Rizatriptan (Maxalt) Sumatriptan (Imitrex, Sumavel) GEPANTS Ubrogepant (Ubrelvy) Rimegepant (Nurtec) Over the Counter Medications Acetaminophen (Tylenol) Acetaminophen/Aspirin/Caffeine (Excedrin, Goody s) Naproxen sodium (Aleve) Maria Elena Marinelli Camary annpili has been previously approved for an Oral Calcitonin Gene- Related Peptide Receptor Antagonist (GEPANT) Rimegepant for the treatment of abortive use. The patient has demonstrated thefollowing: Provider attests patient has had a positive clinical response: Yes Patient will not use with another Oral Calcitonin Gene-Related Peptide Receptor Antagonist (GEPANT): Yes Patient's quality of life and ability to perform ADLs has improved: Yes The patient has tried and failed the following : We suggest the patient continue treatment with GEPANT Rimegepant. The following preventative medications have been tried for three or more months without benefit: Anti-Convulsant Carbamazepine (Tegretol) Gabapentin (Neurontin) Topiramate (Topamax, Trokendi XL, Qudexy) Anti-Depressant and Antipsychotic Amitriptyline (Elavil) Bupropion (Wellbutrin) Citalopram (Celexa) Fluoxetine (Prozac) Sertraline (Zoloft) Venlafaxine (Effexor) Blood Pressure Lisinopril (Zestril) Propranolol (Inderal) MABs Erenumab (Aimovig) Galcanezumab (Emgality) Eptinezumab (Vyepti) Botulinum Toxin Onabotulinum Toxin A (Botox) 6 treatments Supplements Magnesium The following abortive medications have been tried but require high frequency use which can lead toMedication Overuse Headache: Analgesic Butalbital/acetaminophen/caffeine (Fioricet) Diclofenac (Voltaren, Cataflam, Cambia) Hydrocodone/Acetaminophen (Vicodin, Cowpens) Ketorolac (Toradol) Meclofenamate (Meclomen) Meloxicam (Mobic) Oxycodone/Acetaminophen (Percocet) Tramadol (Ultram) Anti-Anxiety Buspirone (Buspar) Anti-Migraine Dihydroergotamine (DHE-45, Migranal) Eletriptan (Relpax) Naratriptan (Amerge) Rizatriptan (Maxalt) Sumatriptan (Imitrex, Sumavel) GEPANTS Ubrogepant (Ubrelvy) Rimegepant (Nurtec) Over the Counter Medications Acetaminophen (Tylenol) Acetaminophen/Aspirin/Caffeine (Excedrin, Goody s) Naproxen sodium (Aleve) PLAN: Another part of evaluating chronic headache may include imaging. Currently, no need. However, in the future if indicated, this may be ordered. HEADACHE MANAGEMENT: (You are the primary guardian of your health and headache. Keep track of all medications: This includes the reason for use, side effects and benefits.) MEDICATION TREATMENT: Abortive therapy: -Continue Nurtec as needed for migraine. -Parafon Forte as needed for migraine and associated neck tension. -Zofran as needed for associated N/V. Bridging therapy: -Bilateral JE Block today. See procedure note. Preventive therapy: -Continue Botox for now. -Continue Vyepti 300 mg every 3 months for now. Consider Qulipta next step. -Gabapentin 400 mg TID. -Effexor 150 daily. Take consistently. -Propranolol 60 mg daily. Take consistently. Headache education was done. Discussed triggers and lifestyle modifications. Discussed treatment options including preventive and acute medications, natural supplements, and infusion therapy. Discussed medication overuse headache and to limit use of acute treatments to no more than 2 days/week or 10 days/month. Discussed medication side effects, adverse reactions and drug interactions. Written patient instructions outlining all of the above were given. Follow-up: PRN, for BOTOX, regularly scheduled appointment Level of service: Est level 4 (30-39 min). Time spent 35 min on the day of service, which included preparing to see the patient, [id number] patient care, completing clinical documentation, obtaining and/or reviewing separately obtained history, performing a medically appropriate examination, counseling and educating the patient/family/caregiver, and ordering medications, tests, or procedures. Zoraida Rodarte APRN.UI ARCHITECT documented in this encounterGe[facility]02-21-[facility]24 History of Present illness Narrative* Jessica Schilling RT(R) - 07/06/2023 3:20 PM EST Radiology Service Progress Note PATIENT NAME: Maria Elena Garay DATE OF SERVICE: July 06, 2023 TIME: 3:15 PM PATIENT IDENTITY VERIFICATION COMPLETED USING TWO (2) IDENTIFIERS: Name and Date of confirmedby patient verbally. FALL SCREENING: Has the patient had 2 falls in the last year or 1 fall with injury or currently using an Ambulatory Assistive Device (Walker, Cane, Wheelchair, Crutches, etc.)? No PATIENT GENDER DATA: Female. status: : No status: NO. PATIENT RELEVANT IMPLANT DATA REVIEWED: Yes PATIENT PRESENTS WITH AN IMPLANTABLE OR ATTACHED EARLY INTERVENTIONIST: No RADIOLOGY DEPARTMENT: General X-ray: Exam(s) Completed: Lower Extremity X- Ray(s): Knee, AP / Lat / Tunne / Merchant Right and Wt. Bearing PERIPHERAL IV DATA: Not applicable SIGNED BY: RT Phuong(R) July 06, 2023 3:15 PM documented in this encounterGeorgetown [facility]02-21-2024 History of Present illness Narrative* Jes Fuentes MD - 07/06/2023 2:39 PM EST Patient presents with: Follow Up HPI: Patient presents today for office visit for follow up. Brought back to day to see me for her bp. Had increased lisinopril. Saw Dr. Loco Gastro. Last OV 06/27/23 Had EGD on 06/16/23. Dx with Eosinophilic Esophagitis. FINAL DIAGNOSIS A. Duodenum, biopsy: - Active duodenitis with gastric foveolar metaplasia, patchy intraepithelial lymphocytosis, and focally prominent Anup's glands. B. Stomach, antrum, biopsy: - Gastric oxyntic mucosa with no significant pathologic abnormality. - No morphologic evidence of Helicobacter pylori organisms. C. Esophagus, lower, distal, biopsy: - Reactive squamous mucosa with increased intraepithelial eosinophils (up to >50 eosinophils in a single high-power field). D. Esophagus, mid, biopsy: - Mildly reactive squamous mucosa with increased intraepithelial eosinophils (up to 14 eosinophils in a single high-power field). Started on Protonix 40 mg BID. Med not helping. Still with abdominal pain, nausea and no appetite Mentions right knee pain. While moving a box at work (scooted box with her right foot) twisted her knee and heard popping sound. Having tendon pain. No noticeable swelling. Refers to being super tender. MEDICATIONS: Current Outpatient Medications Medication Sig pantoprazole DR (PROTONIX) 40 mg tablet Take 1 tablet by mouth two times a day. NURTEC ODT 75 mg disintegrating tablet TAKE 1 DISSOLVABLE TABLET BY MOUTH AT MIGRAINE ONSET. TAKE ONLY 1 TABLET PER 24 HOURS. chlorzoxazone (PARAFON FORTE DSC) 500 mg tablet take 1 tablet by mouth three times a day as needed ergocalciferol 50,000 unit capsule (VITAMIN D2, DRISDOL) Take 1 capsule by mouth one time a week. lisinopril (ZESTRIL) 20 mg tablet Take 1 tablet by mouth once daily. cyclobenzaprine (FLEXERIL) 10 mg tablet Take 1 tablet by mouth three times a day as needed. omeprazole (PRILOSEC) 20 mg capsule Take 1 capsule by mouth two times a day. 1/2 hr before meal. gabapentin (NEURONTIN) 400 mg capsule Take 1 capsule by mouth three times a day. propranolol ER (INDERAL LA) 60 mg 24 hr capsule Take 1 capsule by mouth once daily. hydroCHLOROthiazide 12.5 mg capsule Take 1 capsule by mouth once daily. ondansetron (ZOFRAN) 4 mg tablet Take 1 tablet by mouth once daily as needed (for nausea.). traMADol (ULTRAM) 50 mg tablet Take 1 tablet by mouth every 6 hours as needed for pain. CPAP/BIPAP/OTHER Type .CPAPSettings into a note to see current settings/supplies/DME information. albuterol HFA (PROVENTIL HFA, VENTOLIN HFA) 90 mcg/actuation inhaler Inhale 2 Puffs as instructed every 4 hours as needed for wheezing/shortness of breath. as instructed venlafaxine ER (EFFEXOR XR) 150 mg 24 hr capsule Take 1 capsule by mouth once daily. naratriptan (AMERGE) 2.5 mg tablet Take 1 tablet by mouth as needed. albuterol (PROVENTIL) 2.5 mg /3 mL (0.083 %) nebulizer solution Use 3 mL via nebulizer every 4 hours as needed. Use over 5-15minutes. Cholecalciferol, Vitamin D3, 125 mcg (5,000 unit) cap Take 1 capsule by mouth once daily. Leg Brace (YAO KNEE BRACE) misc Sleeve brace left knee famotidine (PEPCID) 20 mg tablet Take 1 tablet by mouth at bedtime as needed. (Patient not taking: Reported on 07/06/2023) No current facility-administered medications for this visit. ALLERGIES: ALLERGIES Allergen Reactions Compazine [Prochlor* Other: See Comments Akathisia with IV Compazine Reglan [Metoclopram* Other: See Comments Akathisia with IV Reglan Seasonal Allergies Other: See Comments PAST MEDICAL HISTORY Diagnosis Date Abnormal Pap smear of cervix ASCUS Acute appendicitis 04/2021 Allergic rhinitis, cause unspecified Anxiety 03/17/2010 buspar Arthritis Asthma Concussion 2007 Dysmenorrhea Excessive or frequent menstruation Heavy periods Mental disorder Migraine, unspecified, with intractable migraine, so stated, without mention of status migrainosus Migraine Ovarian cyst resolved Pain in joint, pelvic region and thigh 07/29/2014 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 Oscar [place] SURG CHOLECYSTECTOMY W/CHOLANGIOGRAPHY 02/14/2013 SALPINGECTOMY Bilateral 05/31/2019 B/L Salpingectomy at [facility]-Dr. Moore TONSILLECTOMY HX 03/2018 [facility]-Dr. James TUBAL LIGATION HX 01/13/2016 filshie clips FAMILY HISTORY Problem Relation Age of Onset Cancer Mother thyroid, skin. - precancerous cervical cells on pap smear Hypertension Mother Breast Cancer Maternal Grandmother Hypertension Maternal Grandmother Asthma Maternal Grandmother Heart Maternal Grandfather Ischemic Heart Disease Maternal Grandfather stomach, ovarian. Heart Attack Paternal Grandfather Ovarian cancer Other Great Grandmother Social History Tobacco Use Smoking status: Never Smokeless tobacco: Never Vaping Use Vaping Use: Former Substances: Nicotine, Flavoring Substance Use Topics Alcohol use: Yes Comment: 1 nightout every 2 months- 2-3 drinks-None since Drug use: No Reviewed current medications, allergies, past medical history, surgical history, family history andsocial history today. REVIEW OF SYSTEMS All other reviewed and negative other than HPI. VITALS: BP 140/98 Pulse 97 Ht 165.1 cm (5' 5) Wt 109.3 kg (241 lb) LMP 04/19/2023 (Approximate) SpO2 98% BMI 40.10 kg/m Last 4 Encounter Wt Readings: Date: Wt: 06/27/2023 109.3 kg (241 lb) 06/10/2023 109.5 kg (241 lb 6.4 oz) 06/03/2023 109.3 kg (241 lb) 05/24/2023 109.4 kg (241 lb 3.2 oz) PHYSICAL EXAMINATION: General appearance: Well appearing, alert, in no acute distress, well-hydrated, well nourished. Skin: Skin color, texture, turgor normal, no suspicious rashes or lesion Lungs: Lungs clear to auscultation. No wheezing, rhonchi, rales Heart: RRR without murmur, gallop, or rubs. No ectopy Abdomen: Normal abdominal exam, Abdomen soft, non-tender. Bowel sounds normal. No masses, organomegaly Extremities: No deformities, edema, skin discoloration, clubbing or cyanosis. Good capillary refill. Musculoskeletal: tender over medial aspect of knee near MCL. No instability, negative Hilario's. Normal range of motion. ASSESSMENT/PLAN: 1. Acute pain of right knee - ICD9: 719.46, ICD10: M25.561 (primary diagnosis) - ice and tylenol prn. Can yao and elevate. Red flags for re-assessment reviewed with patient in detail. - calorie - XR KNEE GENERAL 4V AP BOTH/PA BOTH/LAT/MERC RIGHT 2. Hypertension, essential - ICD9: 401.9, ICD10: I10 - Uncontrolled - not compliant with meds recently. Recheck bp in one month 3. Eosinophilic esophagitis - ICD9: 530.13, ICD10: K20.0 - per Dr Loco. Jes Fuentes MD documented in this encounterGe[facility]02-09-2024 History of Present illness Narrative* Christine Caro RN - 06/24/2023 10:28 AM EST Patient in for vyepti infusion. Patient rated headache 5/10. Patient stated moderate nausea and denied dizziness. Patient educated on medications to be administered. Patient verbalized understanding and agreed to proceed with infusions. Pts infusions complete. Pt tolerated infusion well. Pt rated headache 5/10. Pt stated moderate nausea and denied dizziness. Pt discharged from treatment room. documented in this encounterGeorgetown [facility] Hospital02-02-2024 Miscellaneous Notes* Telephone Encounter - Katelyn Aguirre LPN - 06/17/2023 10:52 AM EST Patient called, verified name and date of , regarding pain in lower throat/ shoulder blades. Patient rates pain 6/10, stabbing anytime patient swallows. Patient states pain started yesterday evening. Patient EGD was on 06/16/23 Dr. Loco. Advised patient Gargle with warm salt water Chloraseptic spray Throat lozenges Advised this may last for 5 days. Patient verbalized understanding. Katelyn Aguirre LPN June 17, 2023 11:05 AM documented in this encounterGeorgetown [facility]02-01-2024 History of Present illness Narrative* Nelly Loco MD - 06/16/2023 9:41 AM EST HISTORY AND PHYSICAL Maria Elena Garay 1990 REFERRING PHYSICIAN: Jes Fuentes MD CHIEF COMPLAINT: Consult (dyspepsia) HPI: The patient is a 32 year old female referred for endoscopy. Maria Elena notes no history of coloncomplaints. Still complains of abdominal pain. Had US that showed fatty liver. Still with extreme fatigue. Omeprazole not helping. Abdominal pain is constant but worse after eating a meal. Has a full feeling in upper abdomen. Had had gallbladder out already. No black or bloody stools. Only slight blood if moving bowels. Appetite is poor. No fever or chills. Using nsaids. Discussed avoiding. Maria Elena has undergone prior endoscopy. 2012 The patient is being seen by me today at the request of Dr. Jes Fuentes MD for my opinion and advice regarding Dyspepsia Epigastric pain (primary encounter diagnosis) Nausea. 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 Oscar OLUIS SURG CHOLECYSTECTOMY W/CHOLANGIOGRAPHY 02/14/2013 SALPINGECTOMY Bilateral 05/31/2019 B/L Salpingectomy at [facility]-Dr. Moore TONSILLECTOMY HX 03/2018 [facility]-Dr. James TUBAL LIGATION HX 01/13/2016 filshie clips Current Outpatient Medications Medication Sig NURTEC ODT 75 mg disintegrating tablet TAKE 1 DISSOLVABLE TABLET BY MOUTH AT MIGRAINE ONSET. TAKE ONLY 1 TABLET PER 24 HOURS. chlorzoxazone (PARAFON FORTE DSC) 500 mg tablet take 1 tablet by mouth three times a day as needed ergocalciferol 50,000 unit capsule (VITAMIN D2, DRISDOL) Take 1 capsule by mouth one time a week. lisinopril (ZESTRIL) 20 mg tablet Take 1 tablet by mouth once daily. cyclobenzaprine (FLEXERIL) 10 mg tablet Take 1 tablet by mouth three times a day as needed. omeprazole (PRILOSEC) 20 mg capsule Take 1 capsule by mouth two times a day. 1/2 hr before meal. gabapentin (NEURONTIN) 400 mg capsule Take 1 capsule by mouth three times a day. propranolol ER (INDERAL LA) 60 mg 24 hr capsule Take 1 capsule by mouth once daily. hydroCHLOROthiazide 12.5 mg capsule Take 1 capsule by mouth once daily. ondansetron (ZOFRAN) 4 mg tablet Take 1 tablet by mouth once daily as needed (for nausea.). traMADol (ULTRAM) 50 mg tablet Take 1 tablet by mouth every 6 hours as needed for pain. CPAP/BIPAP/OTHER Type .CPAPSettings into a note to see current settings/supplies/DME information. albuterol HFA (PROVENTIL HFA, VENTOLIN HFA) 90 mcg/actuation inhaler Inhale 2 Puffs as instructed every 4 hours as needed for wheezing/shortness of breath. as instructed venlafaxine ER (EFFEXOR XR) 150 mg 24 hr capsule Take 1 capsule by mouth once daily. famotidine (PEPCID) 20 mg tablet Take 1 tablet by mouth at bedtime as needed. naratriptan (AMERGE) 2.5 mg tablet Take 1 tablet by mouth as needed. albuterol (PROVENTIL) 2.5 mg /3 mL (0.083 %) nebulizer solution Use 3 mL via nebulizer every 4 hours as needed. Use over 5-15minutes. Cholecalciferol, Vitamin D3, 125 mcg (5,000 unit) cap Take 1 capsule by mouth once daily. Leg Brace (YAO KNEE BRACE) misc Sleeve brace left knee No current facility-administered medications for this visit. Facility-Administered Medications Ordered in Other Visits Medication Dose Route Frequency lactated ringers iv infusion 30 mL/hr INTRAVENOUS CONTINUOUS ALLERGIES: Compazine [Prochlorperazine Edisylate], Reglan [Metoclopramide Hcl], and Seasonal Allergies PERSONAL HISTORY: Social History Tobacco Use Smoking status: Never Smokeless tobacco: Never Vaping Use Vaping Use: Former Substances: Nicotine, Flavoring Substance Use Topics Alcohol use: Yes Comment: 1 nightout every 2 months- 2-3 drinks-None since Drug use: No FAMILY HISTORY: FAMILY HISTORY Problem Relation Age of Onset Cancer Mother thyroid, skin. - precancerous cervical cells on pap smear Hypertension Mother Breast Cancer Maternal Grandmother Hypertension Maternal Grandmother Asthma Maternal Grandmother Heart Maternal Grandfather Ischemic Heart Disease Maternal Grandfather stomach, ovarian. Heart Attack Paternal Grandfather Ovarian cancer Other Great Grandmother REVIEW OF SYMPTOMS: The review of systems data was entered by the nurse and reviewed by me Nursing Notes: Katelyn Aguirre LPN 06/10/2023 3:57 PM Signed REVIEW OF SYSTEMS: General: The patient NOTES fatigue, denies weight loss, denies weight gain, denies feeling hot, anddenies feelings of cold. Eyes: The patient denies glaucoma, denies eye injury/surgery, does not wear glasses or contacts. Ear/Nose/Throat: The patient NOTES allergies, NOTES hayfever, denies ear infections, and denies bloody noses. Cardiovascular: The patient denies chest pain, denies heart disease, NOTES high blood pressure,denies cardiac stent, denies prior heart attack, denies irregular heart beat, denies high cholesterol, denies poor circulation, denies heart failure, other cardiac issues, denies claudication, denies coldfeet, denies peripheral arterial stent. Respiratory: The patient denies tuberculosis, denies pneumonia, NOTES frequent cough, denies pulmonary embolism, NOTES shortness of breath, and denies coughing up blood, NOTES ASTHMA Gastrointestinal: The patient denies difficulty swallowing, denies acid reflux, denies ulcers, denies vomiting, denies jaundice/hepatitis, denies gallbladder problems, denies black or tarry stools, denies hemorrhoids, denies bleeding from rectum, denies diverticulitis, denies constipation, denies diarrhea, denies loss of stool control, and denies hernias. Kidney/Bladder: The patient denies kidney stones, denies urine infections, and denies bloody urine. Skin: The patient denies a history of skin cancer, denies bleeding/changing moles, and denies a history of skin rash. Neurologic: The patient denies a history of epilepsy/convulsions, NOTES headaches, denies head/spinal injuries, and denies stroke/TIA. Psychiatric: The patient denies psychiatric medications, denies depression, and denies voices, denies substance abuse. Endocrine: The patient denies thyroid disorders, denies diabetes, and denies hormonal problems. Hematologic: The patient denies a history of bruising, denies bleeding, and denies anemia, denies blood clots. Infections: The patient denies a history of measles and mumps, denies rheumatic fever, and denies sexually transmitted diseases. Musculoskeletal: The patient denies back pain/injury, NOTES back problems, denies sciatica, NOTES knee/foot trouble, NOTES arthritis, or denies gout. When was patient's last Mammogram screening? N/A Last Colonoscopy: NONE Katelyn Aguirre LPN PHYSICAL EXAMINATION: General: The patient is 32 year old female, well nourished, well hydrated in no acute distress. Thepatient is oriented to time, place, and person. VITALS: Blood pressure 138/86, pulse 97, temperature 36.9 C (98.4 F), height 165.1 cm (5' 5), weight 109.5 kg (241 lb 6.4 oz), last menstrual period 04/19/2023, SpO2 98%. Body mass index is 40.17 kg/m . HEENT: Normal cephalic, ataumatic, pupils are equally round, sclera are anicteric, mucous membranesare moist, oropharynx is clear. Neck has no masses, asymmetry or lymphadenopathy. Thyroid is unremarkable. Respiratory: Clear to auscultation and percussion. Normal respiratory excursion and pattern. Cardiac: Examination is regular rate and rhythm. Abdominal exam: Soft, nontender, with no palpable masses. No hepatosplenomegaly. No palpable hernias. Rectal exam: exam deferred Extremities: no clubbing, cyanosis or edema. No adenopathy. Other: LABORATORY VALUES: As Noted RADIOLOGIC STUDIES: As Noted Assessment IMPRESSION: Dyspepsia Epigastric pain (primary encounter diagnosis) Nausea PLAN: I plan to perform upper endoscopy. We discussed the risks and benefits of the planned endoscopy. I have informed the patient that complications can occur including failure to complete the endoscopy and perforation. The patient had the opportunity to ask questions concerning the planned endoscopy. My staff has also explained the procedure to the patient in understandable terms and has given the patient printed material concerning the procedure. The patient freely consents to surgery. Diagnoses: (R10.13) Epigastric pain (primary encounter diagnosis) (R10.13) Dyspepsia (R11.0) Nausea My findings have been communicated to Dr. Jes Fuentes MD via shared medical record. This note will be forwarded to Dr. Jes Fuentes MD. Return to Clinic: The patient is instructed to follow-up with me 1 week post operatively. Nelly Loco III, MD documented in this encounterGe[facility]01-26-2024 Telephone encounter Note * Telephone Encounter - Shaista Rehman - 06/10/2023 4:29 PM EST 06/16/2023 EGD [facility] Miscellaneous Notes* Telephone Encounter - Shaista Rehman - 06/10/2023 4:29 PM EST 06/16/2023 EGD [facility] documented in this encounterGeorgetown [facility] Hospital01-26-2024 Nurse Note* Katelyn Aguirre LPN - 06/10/2023 3:55 PM EST REVIEW OF SYSTEMS: General: The patient NOTES fatigue, denies weight loss, denies weight gain, denies feeling hot, anddenies feelings of cold. Eyes: The patient denies glaucoma, denies eye injury/surgery, does not wear glasses or contacts. Ear/Nose/Throat: The patient NOTES allergies, NOTES hayfever, denies ear infections, and denies bloody noses. Cardiovascular: The patient denies chest pain, denies heart disease, NOTES high blood pressure,denies cardiac stent, denies prior heart attack, denies irregular heart beat, denies high cholesterol, denies poor circulation, denies heart failure, other cardiac issues, denies claudication, denies coldfeet, denies peripheral arterial stent. Respiratory: The patient denies tuberculosis, denies pneumonia, NOTES frequent cough, denies pulmonary embolism, NOTES shortness of breath, and denies coughing up blood, NOTES ASTHMA Gastrointestinal: The patient denies difficulty swallowing, denies acid reflux, denies ulcers, denies vomiting, denies jaundice/hepatitis, denies gallbladder problems, denies black or tarry stools, denies hemorrhoids, denies bleeding from rectum, denies diverticulitis, denies constipation, denies diarrhea, denies loss of stool control, and denies hernias. Kidney/Bladder: The patient denies kidney stones, denies urine infections, and denies bloody urine. Skin: The patient denies a history of skin cancer, denies bleeding/changing moles, and denies a history of skin rash. Neurologic: The patient denies a history of epilepsy/convulsions, NOTES headaches, denies head/spinal injuries, and denies stroke/TIA. Psychiatric: The patient denies psychiatric medications, denies depression, and denies voices, denies substance abuse. Endocrine: The patient denies thyroid disorders, denies diabetes, and denies hormonal problems. Hematologic: The patient denies a history of bruising, denies bleeding, and denies anemia, denies blood clots. Infections: The patient denies a history of measles and mumps, denies rheumatic fever, and denies sexually transmitted diseases. Musculoskeletal: The patient denies back pain/injury, NOTES back problems, denies sciatica, NOTES knee/foot trouble, NOTES arthritis, or denies gout. When was patient's last Mammogram screening? N/A Last Colonoscopy: NONE Katelyn Aguirre LPN documented in this encounterGeorgetown [facility] Hospital01-19-2024 History of Present illness Narrative* Albania Morales, RT(R) - 06/03/2023 3:00 PM EST Radiology Service Progress Note PATIENT NAME: Maria Elena Garay DATE OF SERVICE: June 03, 2023 TIME: 3:03 PM PATIENT IDENTITY VERIFICATION COMPLETED USING TWO (2) IDENTIFIERS: Name and Date of confirmedby patient verbally. FALL SCREENING: Has the patient had 2 falls in the last year or 1 fall with injury or currently using an Ambulatory Assistive Device (Walker, Cane, Wheelchair, Crutches, etc.)? No PATIENT GENDER DATA: Female. status: : No status: NO. PATIENT RELEVANT IMPLANT DATA REVIEWED: Not Applicable RADIOLOGY DEPARTMENT: General X-ray: Exam(s) Completed: Upper Extremity X- Ray(s): Shoulder, AP / TRUE AP / SUPRA OUTLET right PERIPHERAL IV DATA: Not applicable SIGNED BY: RT Avi(R) June 03, 2023 3:03 PM documented in this encounterGeorgetown Behavioral Hospital12-15-2023 Miscellaneous Notes* Telephone Encounter - Travis Kim - 04/29/2023 1:40 PM EST Patient phones for refill(s): Requested Prescriptions Pending Prescriptions Disp Refills naproxen (NAPROSYN) 500 mg tablet 60 tablet 1 Sig: Take 1 tablet by mouth two times a day as needed (for pain/inflammation). Take with food. Date of last office visit in primary care: 02/21/2023 Date of next office visit in primary care: Visit date not found Last 2 Encounter Wt Readings: Date: Wt: 04/29/2023 109.8 kg (242 lb) 02/17/2023 109.5 kg (241 lb 6.4 oz) Please advise. Thank you. Travis Kim. documented in this encounterGeorgetown [facility]al Hospital12-15-2023 Miscellaneous Notes* Telephone Encounter - Travis Kim - 04/29/2023 1:34 PM EST Patient phones for refill(s): Requested Prescriptions Pending Prescriptions Disp Refills hydroCHLOROthiazide 12.5 mg capsule 90 capsule 0 Sig: Take 1 capsule by mouth once daily. Date of last office visit in primary care: 02/21/2023 Date of next office visit in primary care: 04/29/2023 Last 2 Encounter Wt Readings: Date: Wt: 04/29/2023 109.8 kg (242 lb) 02/17/2023 109.5 kg (241 lb 6.4 oz) Please advise. Thank you. Travis Kim. documented in this encounterGeorgetown Behavioral Hospital12-13-2023 History of Present illness Narrative* Dimas Bonilla, PT - 04/27/2023 10:34 AM EST Episode Visit Count: 10 Therapist That Will Accept/Oversee The Plan Of Care: Dimas Bonilla PT. Start of Care Date: 02/24/23 Onset Date: 02/16/23 Patient Identified by Name and Date of : Yes REHABILITATION AND SPORTS THERAPY PHYSICAL THERAPY TREATMENT NOTE ASSESSMENT: Maria Elena Garay tolerated the session with expected muscle soreness. She demonstrated difficulty with thoracic mobility. The patient will continue to benefit from ongoing skilled physical therapy to progress toward set goals. PLAN FOR NEXT VISIT: Assess need for DN; continue core stabilization and lumbar spine extensor strength. SUBJECTIVE: Patient reports pain in the mid to low back; states achy can be burning today. Pt. reports feeling good after last session till about Tuesday morning (approx. 3 days.). Pain: Pain Pain Level: 4 Pain Location: Low Back/Lumbar Spine- Midline Description: Aching, Burning Frequency: Intermittent Post Treatment Pain Post Treatment Pain Level: No Change Post Treatment Pain Location: Low Back/Lumbar Spine- Midline OBJECTIVE MEASURES WITH LEVEL OF FUNCTION: Limitations in B Thoracic Rotation Mobility. TREATMENT: Therapeutic Exercise: 1: Puew-alo-gyar T/S mobility: 2x12 2: T/S Extension w/ ball on chair: 2x12. 3: B QL Stretch: 3x30 4: Pallof Press: 2x10 ea. side, BTB. 5: Supine Hooklying Core Isometric Hip Flexion: 2x10, 5-sec hold. (LUE to LLE, & RUE to RLE.) 6: Supine Hooklying Core Isometric Alt. Hip Flexion: 2x10, 5-sec hold. (RUE to LLE, & LUE to RLE.) Skilled Intervention: Patient was educated in proper exercise technique and purpose for exercises. Skilled judgment was used in selection of appropriate interventions. Correct performance of therapeutic exercises was facilitated with verbal, visual, and tactile cuing. Manual Therapy: Dry Needling: (2) 75 mm needles to B Lumbar Parapsinals L3-L4 Region with pistoning and fanning; (2) 25 mm needle B Thoracic Parapsinals T10 Region with pistoning and fanning (pt consent gained, 4 needles in, 4 needles out) Skilled Intervention: Manual skills to improve joint mobility, ROM, and decrease pain. Utilized anatomy knowledge of the therapist, and assessment of patient's response to intervention. Billing Therapeutic Exercise Treatment Minutes: 38 Manual TherapyTreatment Minutes: 3 Skilled Treatment Time Minutes (timed and untimed codes): 41 Total Session Time (minutes): 41 Session Start Time : 1032 Session Stop Time : 1113 Dimas Bonilla PT [facility] History of Present illness Narrative* Dimas Bonilla, PT - 04/22/2023 2:36 PM EST Episode Visit Count: 9 Therapist That Will Accept/Oversee The Plan Of Care: Dimas Bonilla PT. Start of Care Date: 02/24/23 Onset Date: 02/16/23 Patient Identified by Name and Date of : Yes REHABILITATION AND SPORTS THERAPY PHYSICAL THERAPY PROGRESS REPORT PLAN OF CARE UPDATE: Assessment: Maria Elena Garay demonstrates moderate improvement in L Hip Pain, stair negotiation, twisting, bending, pain severity and frequency. She has progressed toward goals. Patient continues to present with impairments in ADL's, overall function, range of motion, soft tissue healing, symptom management,and tissue tenderness that interfere with working, sleeping, lifting (Getting comfortable during sleeping; returning from bend.) . Current prognosis is Good due to: current objective clinical presentation, positive past response to therapy, within-session changes, good support system/ coping skillsoccupational demands .She will benefit from continued skilled therapy services to meet the updated g oals for this plan of care as noted below. Updated: 03/25/23 & 04/22/23. Goals for Episode of Care: created on 02/24/23 through 04/26/23 Scott in home exercise program. (MET) Patient will decrease pain rating by 2 points to meet minimal clinical important difference for numeric pain rating scale. (Progressing Towards) Patient will demonstrate increase in trunk & left lower extremity strength to 5/5 during manual muscle testing in order to improve function for home management tasks, leisure / recreation skills, light functional tasks, prior functional tasks, and work tasks. (MET for left lower extremity, Progressing Towards for trunk). Restore pain-free lumbar ROM to WNL to allow for return to occupational demands without limitation. (Progressing Towards) Stand / Walk / Negotiate Stairs&Inclines without pain/symptoms. (Progressing Towards) Complete work demands without report of pain/symptoms. (Progressing Towards) Sleep through night without pain/symptoms. (Progressing Towards) Patient Goals: Reduce Pain. 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 SUBJECTIVE: Patient reports low back has been hurting this week - notes doing a lot of physical things at work this week. (bending and holding a dog, aberrant positions). Notes lately the getting back up from bending has been hurting more recently. Functional Limitations: working, sleeping, lifting (Getting comfortable during sleeping; returning from bend.) Pain: Pain Pain Level: 6 Pain Location: Low Back/Lumbar Spine- Midline Description: Aching, Burning Frequency: Intermittent Post Treatment Pain Post Treatment Pain Level: Better Post Treatment Pain Location: Low Back/Lumbar Spine- Midline Post Treatment Symptoms: Best I have felt leaving a session per patient. PROMIS Scales Higher is Better 04/08/2023 03/10/2023 Phys Func - Score 42 (mild dysfunction) 38 (moderate dysfunction) Phys Func - Percentile 21% 12% Self-Eff Symptom - Score 42 (Average) 42 (Average) Self-Eff Symptom - Percentile 21% 21% T-scores: mean of general population = 50. 5 points is clinically meaningfully difference Percentiles provide an indication of how the patient's score ranks in relation to the general population. Higher percentile rankings indicate better function/quality of life. 50th percentile is the average of the general population and indicates half of respondents had a worse score. OBJECTIVE MEASURES WITH LEVEL OF FUNCTION: Spine Observations R Lumbar Spine Palpation Tenderness: Paraspinals L Lumbar Spine Palpation Tenderness: Paraspinals, Quadratus Lumborum Lumbar Spine AROM Lumbar Flexion: Normal Lumbar Extension: Pain during movement, Increased pain (Pain returning from bending.) Lumbar R Side-Bend: Normal Lumbar L Side-Bend: Normal Lumbar R Rotation: Normal Lumbar L Rotation: Normal LE Strength Trunk Strength: Fair. R LE Strength: 5/5 Grossly L LE Strength: 5/5 Grossly TREATMENT: Therapeutic Exercise: 1: B QL Stretch: 3x30 2: *Progress Check & Objective Measures Collected*. 3: *Discussion revolving around POC; addressed therapy goals moving forward. Skilled Intervention: Patient was educated in proper exercise technique and purpose for exercises. Reviewed and educated patient on additions/changes for home exercise program as above (*). Skilled judgment was used in selection of appropriate interventions. Provided written instruction for home exercise program to facilitate proper performance and compliance. Correct performance of therapeutic exercises was facilitated with verbal, visual, and tactile cuing. Manual Therapy: 1: IaSTM to B T/S & L/S Paraspinals: Push to tolerance. Dry Needling: (2) 75 mm needles to B Lumbar Parapsinals L3-L4 Region with pistoning and fanning; (2) 25 mm needle B Thoracic Parapsinals T8 Region with pistoning and fanning (pt consent gained, 4 needles in, 4 needles out) Skilled Intervention: Manual skills to improve joint mobility, ROM, and decrease pain. Utilized anatomy knowledge of the therapist, and assessment of patient's response to intervention. Billing Therapeutic Exercise Treatment Minutes: 15 Manual TherapyTreatment Minutes: 23 Skilled Treatment Time Minutes (timed and untimed codes): 38 Total Session Time (minutes): 38 Session Start Time : 1432 Session Stop Time : 1510 Dimas Bonilla, PT documented in [facility]Ge[facility]11-24-[facility] History of Present illness Narrative* Dimas Bonilla, PT - 04/08/2023 2:38 PM EST Program_ID:[id number] Access Code: [email or web address] URL: [email or web address] Date: 04-08-2023 Prepared By: Dimas Chad Program Notes Exercises - Supine Transversus Abdominis Bracing - Hands on Stomach - 1-2 x daily - 7 x weekly - 2 - 10 - Bent Knee Fallouts - 1-2 x daily - 7 x weekly - 2 - 10 - Stir the Pot - 1-2 x daily - 7 x weekly - 2 - 10 - Standing Anti-Rotation Press with Anchored Resistance - 1-2 x daily - 7 x weekly - 2 - 10 * Dimas Bonilla, PT - 04/08/2023 2:26 PM EST Episode Visit Count: 7 Therapist That Will Accept/Oversee The Plan Of Care: Dimas Bonilla PT. Start of Care Date: 02/24/23 Onset Date: 02/16/23 Patient Identified by Name and Date of : Yes REHABILITATION AND SPORTS THERAPY PHYSICAL THERAPY TREATMENT NOTE ASSESSMENT: Maria Elena Garay tolerated the session with expected muscle soreness. She demonstrated light pain in the paraspinals with lumbar extension returning from stiff leg deadlift/bending. Thepatient will continue to benefit from ongoing skilled physical therapy to progress toward set goals. PLAN FOR NEXT VISIT: Progress neutral spine strengthening and lumbar spine extensor strength; manual PRN. SUBJECTIVE: Patient reports some aching in the upper low back across the width; been doing good overall the last week. States overall she is unsure if it has been because she hasn't done much the last two days with holidays. Pain: Pain Pain Level: 4 Pain Location: Low Back/Lumbar Spine- Midline Description: Aching Frequency: Intermittent Post Treatment Pain Post Treatment Pain Level: No Change OBJECTIVE MEASURES WITH LEVEL OF FUNCTION: Tenderness to L/S Paraspinals this date (L>R). Less lumbar extension pain following DN. TREATMENT: Therapeutic Exercise: 1: *Pallof Press: 2x10 ea. side, BTB. 2: *Wvqw-pyk-obb: 2x[address], BTB. 3: Physioball (85cm) flexion rollouts: 1x15. 4: Physioball (85cm) flexion & rotation rollouts: 1x15 each. 5: Stiff Leg Deadlifts: 2x10, 10#kb. 6: Repeated Lumbar Flexion in Standinx10. Skilled Intervention: Patient was educated in proper exercise technique and purpose for exercises. Reviewed and educated patient on additions/changes for home exercise program as above (*). Skilled judgment was used in selection of appropriate interventions. Provided written instruction for home exercise program to facilitate proper performance and compliance. Correct performance of therapeutic exercises was facilitated with verbal, visual, and tactile cuing. Manual Therapy: 1: STM to B L/S Paraspinals: Push to tolerance. Dry Needling: (2) 75 mm needle to L Lumbar Paraspinals L3-L5 region with pistoning and fanning; (2)75 mm needle to R Paraspinal L3-L5 region with pistoning and fanning (pt consent gained, 4 needles in, 4 needles out) Skilled Intervention: Manual skills to improve joint mobility, ROM, and decrease pain. Utilized anatomy knowledge of the therapist, and assessment of patient's response to intervention. Billing Therapeutic Exercise Treatment Minutes: 33 Manual TherapyTreatment Minutes: 8 Skilled Treatment Time Minutes (timed and untimed codes): 41 Total Session Time (minutes): 41 Session Start Time : 1425 Session Stop Time : 1506 Dimas Bonilla PT documented [facility]Ge[facility]11-17-[facility]23 History of Present illness Narrative* Dimas Bonilla, PT - 04/01/2023 3:19 PM EST Episode Visit Count: 6 Therapist That Will Accept/Oversee The Plan Of Care: Dimas Bonilla PT. Start of Care Date: 02/24/23 Onset Date: 02/16/23 Patient Identified by Name and Date of : Yes REHABILITATION AND SPORTS THERAPY PHYSICAL THERAPY TREATMENT NOTE ASSESSMENT: Maria Elena Garay tolerated the session with expected muscle soreness. She demonstrated improvements in lumbar paraspinal flexibility. The patient will continue to benefit from ongoing skilled physical therapy to progress toward set goals. PLAN FOR NEXT VISIT: Progress ther-ex and neutral spine strengthening; manual PRN. SUBJECTIVE: Patient reports low back is doing better; 3/10 in the midline of the low back, has dullache in the anterior. Pain: Pain Pain Level: 3 Pain Location: Low Back/Lumbar Spine- Midline Description: Aching Frequency: Intermittent Post Treatment Pain Post Treatment Pain Level: Better OBJECTIVE MEASURES WITH LEVEL OF FUNCTION: Tenderness in B L/S Paraspinals (L > R). TREATMENT: Therapeutic Exercise: 1: Seated Sciatic N Slider: 1x15 B 2: Seated Sciatic N Tensioner: 1x15 B. 3: Child Pose: 4x30. 4: *Educated patient on stretch/mobilityactivation exercises to complete tonight following DN session Skilled Intervention: Patient was educated in proper exercise technique and purpose for exercises. Skilled judgment was used in selection of appropriate interventions. Correct performance of therapeutic exercises was facilitated with verbal, visual, and tactile cuing. Patient education as noted. Manual Therapy: 1: Manual L/S Traction x 12 min with LEs propped on stool and caudal pull: Pull to patient tolerance. 2: STM to B L/S Paraspinals with foam roller: Push to tolerance. Dry Needling: (2) 75 mm needle to L Lumbar Paraspinals with pistoning and fanning; (2) 75 mm needleto R Paraspinal with pistoning and fanning (pt consent gained, 4 needles in, 4 needles out) Skilled Intervention: Manual skills to improve joint mobility, ROM, and decrease pain. Utilized anatomy knowledge of the therapist, and assessment of patient's response to intervention. Billing Therapeutic Exercise Treatment Minutes: 14 Manual TherapyTreatment Minutes: 24 Skilled Treatment Time Minutes (timed and untimed codes): 38 Total Session Time (minutes): 38 Session Start Time : 7 Session Stop Time : 1555 Dimas Bonilla PT documented in this encounterGe[facility]11-03-2023 History of Present illness Narrative* Dimas Bonilla, PT - 03/18/2023 3:18 PM EDT Episode Visit Count: 4 Therapist That Will Accept/Oversee The Plan Of Care: Dimas Bonilla PT. Start of Care Date: 02/24/23 Onset Date: 02/16/23 Patient Identified by Name and Date of : Yes REHABILITATION AND SPORTS THERAPY PHYSICAL THERAPY TREATMENT NOTE ASSESSMENT: Maria Elena Garay tolerated the session with decreased symptoms and no issues. She demonstrated tolerance to DN session. The patient will continue to benefit from ongoing skilled physical therapy to progress toward set goals. PLAN FOR NEXT VISIT: Assess response to DN; progress ther-ex and neutral spine strengthening; manual PRN. SUBJECTIVE: Pt. reports today (never before) having sharp pain from L hip to the L foot while walking in grocery store; has been sore/extreme achiness in the bilateral thighs/buttocks/low back recently; patient overall feels like she is slowly improving. [place] good after last visit, got multiple days of relief. Pain: Pain Pain Level: 4 Pain Location: Low Back/Lumbar Spine- Midline Description: Aching Frequency: Continuous Post Treatment Pain Post Treatment Pain Level: Better Post Treatment Pain Location: Low Back/Lumbar Spine- Midline Post Treatment Symptoms: Soreness where DN was inserted, however better overall based on flexibility and chronic achiness per patient. OBJECTIVE MEASURES WITH LEVEL OF FUNCTION: Tenderness in B L/S Paraspinals. TREATMENT: Therapeutic Exercise: 1: Physioball (85cm) flexion rollouts: 1x10. 2: Physioball (85cm) flexion & rotation rollouts: 1x10 each. 3: B SKC: 2x30 4: DKC: 2x30 5: Child Pose: 1x30 6: *Reviewed and educated patient on completion of home exercise program and drinking plenty of water following DN session. Skilled Intervention: Patient was educated in proper exercise technique and purpose for exercises. Skilled judgment was used in selection of appropriate interventions. Correct performance of therapeutic exercises was facilitated with verbal, visual, and tactile cuing. Patient education as noted. Manual Therapy: 1: Manual L/S Traction x 15 min with LEs propped on stool and caudal pull: Pull to patient tolerance. 2: *Patient education on purpose, precautions, safety, and risks regarding dry needling. Dry Needling: (2) 60 mm needles to L Lumbar Paraspinals with pistoning and fanning; (1) 60 mm needle to R Paraspinal with pistoning and fanning (pt consent gained, 3 needles in, 3 needles out) Skilled Intervention: Manual skills to improve joint mobility, ROM, and decrease pain. Utilized anatomy knowledge of the therapist, and assessment of patient's response to intervention. Billing Therapeutic Exercise Treatment Minutes: 20 Manual TherapyTreatment Minutes: 25 Skilled Treatment Time Minutes (timed and untimed codes): 45 Total Session Time (minutes): 45 Session Start Time : 1515 Session Stop Time : 1600 Dimas Bonilla, PT documented in this encounterGe[facility]11-03-2023 History of Present illness Narrative* Desi Ron RN - 03/18/2023 10:31 AM EDT 1030 Patient in for vyepti. Patient rated headache 3/10. Patient stated mild nausea and no dizziness. Patient educated on medications to be administered. Patient verbalized understanding and agreed to proceed with infusions. 1145 Pts infusions complete. Pt tolerated infusion well. Pt rated headache 5/10. Pt stated moderatenausea and no dizziness. Pt discharged from treatment room. * Kyra Weiss APRN.UI ARCHITECT - 03/18/2023 10:30 AM EDT Orders checked and verified. Kyra Weiss APRN.UI ARCHITECT documented in this encounterGe[facility]10-26-2023 History of Present illness Narrative* Dimas Bonilla, PT - 03/10/2023 2:48 PM EDT Episode Visit Count: 3 Therapist That Will Accept/Oversee The Plan Of Care: Dimas Bonilla, PT. Start of Care Date: 02/24/23 Onset Date: 02/16/23 Patient Identified by Name and Date of : Yes REHABILITATION AND SPORTS THERAPY PHYSICAL THERAPY TREATMENT NOTE ASSESSMENT: Maria Elena Garay tolerated the session with expected muscle soreness and no issues. She demonstrated centralization of left lower extremity symptoms. The patient will continue to benefit from ongoing skilled physical therapy to progress toward set goals. PLAN FOR NEXT VISIT: Mobilizations to L/S; continue progressions of neutral spine strengthening. SUBJECTIVE: Patient reports her back has better for her over the last week; the midline pain has remained. however the LLE pain has been better. Patient reports this morning she had to help lift a 100-lb. dog, which flared her up this a.m. and now she presents with midback pain and LLE paresthesias, most of her pain is in the L buttock currently. Pain: Pain Pain Level: 7 (Radiating pain down LLE to distal calf; worse pain is the L Buttocks.) Pain Location: Low Back/Lumbar Spine - Left, Leg - Left Description: Aching Frequency: Continuous Post Treatment Pain Post Treatment Pain Level: No Change Post Treatment Pain Location: Low Back/Lumbar Spine - Left Post Treatment Symptoms: Still a 7/10 however centralization and all pain is located in the L Low Back. OBJECTIVE MEASURES WITH LEVEL OF FUNCTION: Relief in low back and left lower extremity pain with L Hip Lateral Distraction. TREATMENT: Manual Therapy: 1: Manual L/S Traction x 15 min with LEs propped on stool and caudal pull: Pull to patient tolerance. 2: Manual LLE Long [place] Distraction: Pull to patient tolerance. Multiple Bouts 3: Manual LLE Lateral Hip Distraction: Multiple Bouts. 4: *Education to patient on centralization/peripherization of symptoms during manual tx this date. Skilled Intervention: Manual skills to improve joint mobility, ROM, and decrease pain. Utilized anatomy knowledge of the therapist, and assessment of patient's response to intervention. Billing Manual TherapyTreatment Minutes: 40 Skilled Treatment Time Minutes (timed and untimed codes): 40 Total Session Time (minutes): 40 Session Start Time : 1445 Session Stop Time : 1525 Dimas Bonilla PT documented in this encounterGe[facility]10-20-2023 History of Present illness Narrative* Dimas Bonilla, PT - 03/04/2023 8:32 AM EDT Episode Visit Count: 2 Therapist That Will Accept/Oversee The Plan Of Care: Dimas Bonilla PT. Start of Care Date: 02/24/23 Onset Date: 02/16/23 Patient Identified by Name and Date of : Yes REHABILITATION AND SPORTS THERAPY PHYSICAL THERAPY TREATMENT NOTE ASSESSMENT: Maria Elena Garay tolerated the session with expected muscle soreness and no issues. She demonstrated proper performance of core bracing following cueing and tolerance/relief with L/S traction this date. The patient will continue to benefit from ongoing skilled physical therapy to progress toward set goals. PLAN FOR NEXT VISIT: Mobilizations to L/S; continue progressions of neutral spine strengthening. SUBJECTIVE: Patient reports following last weeks visit she started getting a warm-like flush downthe front of the thigh intermittently; states about 7x a day, lasts about 15-30sec and does not cause pain. She cannout attribute this new symptoms to any exercise or activity; she hasn't had the symptom yet today; she also made her referring provider aware of new sxs; patient states completion of HEP 1x a day. Pain: Pain Pain Level: 5 (Midline pain the worse; radiating pain down LLE to knee.) Pain Location: Low Back/Lumbar Spine- Midline, Low Back/Lumbar Spine - Left, Leg - Left Description: Aching Frequency: Continuous Post Treatment Pain Post Treatment Pain Level: No Change Post Treatment Pain Location: Low Back/Lumbar Spine- Midline, Low Back/Lumbar Spine - Left Post Treatment Pain Description: Sore OBJECTIVE MEASURES WITH LEVEL OF FUNCTION: Tightness in L Low Back when completing flexion & R Rotation on physio ball rollouts. TREATMENT: Therapeutic Exercise: 1: Physioball (85cm) flexion rollouts: 2x10. 2: Physioball (85cm) flexion & rotation rollouts: 2x10 each. 3: QL Stretch: 3x30 4: *TA Bracinx10, 5 holds. 5: *TA Bracing w/ bilateral BKFO: 1x10. Skilled Intervention: Patient was educated in proper exercise technique and purpose for exercises. Reviewed and educated patient on additions/changes for home exercise program as above (*). Skilled judgment was used in selection of appropriate interventions. Provided written instruction for home exercise program to facilitate proper performance and compliance. Correct performance of therapeutic exercises was facilitated with verbal, visual, and tactile cuing. Manual Therapy: 1: Manual L/S Traction with LEs propped on stool and caudal pull: Pull to patient tolerance. 2: Manual LLE Long [place] Distraction: Pull to patient tolerance. Skilled Intervention: Manual skills to improve joint mobility, ROM, and decrease pain. Utilized anatomy knowledge of the therapist, and assessment of patient's response to intervention. Billing Therapeutic Exercise Treatment Minutes: 32 Manual TherapyTreatment Minutes: 13 Skilled Treatment Time Minutes (timed and untimed codes): 45 Total Session Time (minutes): 45 Session Start Time : 0830 Session Stop Time : 15 Dimas Bonilla PT documented in this encounterGeorgetown [facility]10-18-2023 Miscellaneous Notes* Telephone Encounter - Zoraida Rodarte APRN.CNP - 03/02/2023 1:49 PM EDT The following approved medication requests have been transmitted electronically. Requested Prescriptions Signed Prescriptions Disp Refills ondansetron (ZOFRAN) 4 mg tablet 20 tablet 11 Sig: Take 1 tablet by mouth once daily as needed (for nausea.). Authorizing Provider: ZORAIDA RODARTE APRN.CNP March 02, 2023 1:49 PM * Telephone Encounter - Anh Mckeon - 03/02/2023 1:41 PM EDT Physician: Aster Call from patient requesting refill. Please E-Scribe Last office visit 02/01/23 with Aster in person Next office visit 05/03/23 with Antonio in person Requested Prescriptions Pending Prescriptions Disp Refills ondansetron (ZOFRAN) 4 mg tablet 20 tablet 11 Sig: Take 1 tablet by mouth once daily as needed (for nausea.). [facility]: [facility] documented in this [facility] History of Present illness Narrative* Dimas Bonilla, PT - 02/24/2023 9:39 AM EDT Episode Visit Count: 1 Therapist That Will Accept/Oversee The Plan Of Care: Dimas Bonilla, PT. Start of Care Date: 02/24/23 Onset Date: 02/16/23 Patient Identified by Name and Date of : Yes REHABILITATION AND SPORTS THERAPY PHYSICAL THERAPY EVALUATION PLAN OF CARE: Assessment: Maria Elena Garay presents with diagnosis of low back pain (L>R) with L-sided sciatica that interferes with walking, stair negotiation, bending, twisting, physical activities, recreational activities, lifting, sleeping, working . She presents with impairments in ADL's/IADLs, independence in exercise, joint mobility, overall function, range of motion, strength, symptom management, and tissue tenderness. Patient did not complete the PROMIS (Patient Reported Outcome Measures Information System). Prognosis for therapy is Good due to: current objective clinical presentation, good support system/ coping skills, Prognosis may be limited due to chronic nature of impairments, occupational demands . She will benefit from skilled therapy services to meet the goals established for this plan of care as noted below. Classification Low Back Pain Subgroup Classification: Specific exercise subgroup: recommended visits 8. Specific Exercies Subgroup Classification based on: directional preference Goals for Episode of Care: created on 02/24/23 through 04/26/23 Scott in home exercise program. Patient will decrease pain rating by 2 points to meet minimal clinical important difference for numeric pain rating scale. Patient will demonstrate increase in trunk & left lower extremity strength to 5/5 during manualmuscle testing in order to improve function for home management tasks, leisure / recreation skills,light functional tasks, prior functional tasks, and work tasks. Restore pain-free lumbar ROM to WNL to allow for return to occupational demands without limitation. Stand / Walk / Negotiate Stairs&Inclines without pain/symptoms. Complete work demands without report of pain/symptoms. Sleep through night without pain/symptoms. Patient Goals: Reduce Pain. Planned Interventions, Frequency, and Duration: Current Frequency: 1x/week Duration: 4 weeks Total Number of Visits Planned: 4 Planned Treatment Interventions: Therapeutic exercise (62766), Neuromuscular re- education (07867), Manual therapy (38797), Therapeutic activities (54083), Self- fdc management ([id number]), Patient/Family/Caregiver Education, Body Mechanics Training PLAN FOR NEXT VISIT: Assess response to HEP and current symptoms. Flexion based exercises; manual PRN; begin core stabilization training Patient demonstrates good understanding of plan of care and treatment. The above goals and plan of care were discussed and agreed upon by patient/family. SUBJECTIVE: Patient reports on 02/16/23 she went to get off the couch and felt an intense pain in the middle of the low back; went to urgent care (given Prednisone) and the referring provider and now presents to PT a week later; Patient reports she has had lonstanding low back pain; today her pain is across thelow back and she has sciatica symptoms down the left leg to the knee; the low back feels like an aching/burn band-width across the low back, but can be sharp with aggravating movements; the pain downthe lateral/posterior leg is a numbness/tingling and is not there consistnently; patient states pain with tranistional movements as well as bending forward, twisitng and sitting completely erect. Walking, navigating stairs and traversing inclines is where she experiences her most back pain. Patient Goals: Reduce Pain. 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 Intake Information: Prescription present Previous Treatment: Steroids , Heat Falls Interview: No positive findings with falls interview Red Flags Vertebral Fracture Red Flags: Female Vertebral Fracture Clinical Reasoning: Proceed with caution due to the above (1- 2) risk factors Abdominal Aortic Aneurysm Clinical Reasoning: No identified risk factors. Cancer Clinical Reasoning: No identified risk factors. Infection Clinical Reasoning: No identified risk factors. Cauda Equina Syndrome Clinical Reasoning: No identified risk factors. Red Flags - Cervical Cancer Clinical Reasoning: No identified risk factors. Infection Clinical Reasoning: No identified risk factors. Spine History Symptoms Location at Onset: Back Symptoms Since Onset: Worsening Pain is Worse Always: Standing, Walking (Stairs) Sleeping Position: Prone - head either right or left, Side lying right, Side lying left Sleep Affected by Pain: Pain keeps from falling asleep, Pain awakens Pain: Pain Pain Level: 6 (4/10 Pain down the LLE.) Pain Location: Low Back/Lumbar Spine - Left, Low Back/Lumbar Spine - Right, Thigh - Left Description: Aching Frequency: Continuous Post Treatment Pain Post Treatment Pain Level: Better Post Treatment Pain Location: Low Back/Lumbar Spine - Left, Low Back/Lumbar Spine - Right Post Treatment Pain Description: Sore PROMIS Scales T-scores: mean of general population = 50. 5 points is clinically meaningfully difference Percentiles provide an indication of how the patient's score ranks in relation to the general population. Higher percentile rankings indicate better function/quality of life. 50th percentile is the average of the general population and indicates half of respondents had a worse score. OBJECTIVE MEASURES WITH LEVEL OF FUNCTION: Posture / Alignment Sitting Posture: Perched Lumbar Spine AROM Lumbar Flexion: Minimal limitation, End range pain Lumbar Extension: Moderate limitation, Increased pain, Pain during movement Lumbar R Side-Bend: Normal Lumbar L Side-Bend: Minimal limitation, Pain during movement Lumbar R Rotation: Normal Lumbar L Rotation: Minimal limitation, Pain during movement Repeated Test Movements - Lumbar RFIS - Symptoms During: end range pain RFIS - Symptoms After: no effect SERGEY - Symptoms During: pain during movement, increases SERGEY - Symptoms After: no effect Spine Joint Mobility Spine Joint Mobility : Lumbar/Thoracic Joint Mobility - L3: Hypomobile Joint Mobility - L4: Hypomobile Joint Mobility - L5: Hypomobile LE Strength R LE Strength: 5/5 Grossly L LE Strength: 4+/5 Grossly L Hip Flexion (L2): 4/5 L Knee Extension (L3): 4/5 Special Tests - Hip and Spine Hip and Spine Special Tests: SLR Test SLR Test: Left Positive, Right Negative Education: Education Learning/educational needs: Home exercise program, Plan of Care, Body Mechanics, Posture TREATMENT: PT Treatment Interventions: Therapeutic Exercise, Manual Therapy, Self-Long-Term Management Evaluation Therapeutic Exercise: 1: *B SKC: 3x30 2: DKC: 2x30 3: *LTR: 2x10 ea. side, 1-2 hold. 4: *Seated Sciatic N Slider: 1x10. 5: *Supine L Piriformis Stretch: 2x30. (Pull to R Shoulder.) 6: Seated Repeated lumbar flexion: 1x10. Skilled Intervention: Patient was educated in proper exercise technique and purpose for exercises. Reviewed and educated patient on additions/changes for home exercise program as above (*). Skilled judgment was used in selection of appropriate interventions. Provided written instruction for home exercise program to facilitate proper performance and compliance. Correct performance of therapeutic exercises was facilitated with verbal, visual, and tactile cuing. Manual Therapy: 1: Manual L/S Traction with LEs propped on stool and caudal pull: Pull to patient tolerance. (Discontinued after a couple minutes due to not reducing patients pain; will trial again next visit.) 2: Manual LLE Long [place] Distraction: Pull to patient tolerance. 3: STM w/ tennis ball to L L/S Paraspinals, QL, and Piriformis: Push to tolerance. Skilled Intervention: Manual skills to improve joint mobility, ROM, and decrease pain. Utilized anatomy knowledge of the therapist, and assessment of patient's response to intervention. Self-Long-Term Management: 1: *Discussed how compression of nerve roots can cause low back pain to peripheralize. 2: *Discussed how repeated flexion exercises can be used to increase forminal space and decrease the intensity of LBP 3: *Educated on log roll technique for proper getting out of bed/off table. Skilled Intervention: Skilled judgment in the selection of proper modification for activity of daily living/home management based on clinical presentation, deficits, and needs. Reviewed patient specific diagnosis in relation to activities of daily living/home management. Activity progression based on professional judgement. Billing * Evaluation Low Complexity: 1 Unit Therapeutic Exercise Treatment Minutes: 15 Manual TherapyTreatment Minutes: 10 Self-Care/Home Management Treatment Minutes: 5 Skilled Treatment Time Minutes (timed and untimed codes): 47 Total Session Time (minutes): 47 Session Start Time : 942 Session Stop Time : 0 Dimas Bonilla PT [facility] Instructions* Patient Instructions* Ofelia Delaney APRN.MARISELA - 02/21/2023 6:21 PM EDT Start the new prednisone taper. Schedule w/ physical therapy. Use the tramadol as needed for pain. This can cause drowsiness. Gentle stretching. Rolly hawley, icy hot, biofreeze. Massage. Let us know if not better/worsening. [facility] History of Present illness Narrative* Ofelia Delaney APRN.CNP - 02/21/2023 5:29 PM EDT This is a 32 year old female who presents today with: Patient presents with: Recheck: Urg Care follow up; back pain continues HISTORY OF PRESENT ILLNESS: Maria Elena Garay is a 32 year old female. Patient presents with: Recheck: Urg Care follow up; back pain continues Patient here today with back pain, facial flussing and hoarseness. Back pain: Patient has mild chronic back pain. She was on the couch and when she got up it was excruciating pain. Went to urgent care. They gave her prednisone. She has been using heat. Now the pain has left side. It is radiating from lowe back back to shoulder and lower back to knee. More pain in the upperradiation. She is having trouble lifting shoulder and turning steering wheel from the pain. Rates the pain at rest 7/10 and 8/10 when at work or bending over a table. Sitting still is difficult because of the pain. She has migraines and takes chlorzoxazone, naproxen and gabapentin. These medications aren't helping either with pain. 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 States she has been unable to go to PT for her chronic back pain. 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 Moore LAPSergei SURG CHOLECYSTECTOMY W/CHOLANGIOGRAPHY 02/14/2013 SALPINGECTOMY Bilateral 05/31/2019 B/L Salpingectomy at [facility]-Dr. Moore TONSILLECTOMY HX 03/2018 [facility]-Dr. James TUBAL LIGATION HX 01/13/2016 filshie clips ALLERGIES Compazine [Prochlorperazine Edisylate], Reglan [Metoclopramide Hcl], and Seasonal Allergies MEDICATIONS Current Outpatient Medications Medication Sig predniSONE (DELTASONE) 10 mg tablet Take 4 tabs daily x 3 days, then 3 tabs x 3 days, 2 tabs x 3 days, then 1 tab x3 days with food. CPAP/BIPAP/OTHER Type .CPAPSettings into a note to see current settings/supplies/DME information. albuterol HFA (PROVENTIL HFA, VENTOLIN HFA) 90 mcg/actuation inhaler Inhale 2 Puffs as instructed every 4 hours as needed for wheezing/shortness of breath. as instructed venlafaxine ER (EFFEXOR XR) 150 mg 24 hr capsule Take 1 capsule by mouth once daily. hydroCHLOROthiazide 12.5 mg capsule Take 1 capsule by mouth once daily. lisinopril (ZESTRIL) 10 mg tablet Take 1 tablet by mouth once daily. propranolol ER (INDERAL LA) 60 mg 24 hr capsule Take 1 capsule by mouth once daily. famotidine (PEPCID) 20 mg tablet Take 1 tablet by mouth at bedtime as needed. chlorzoxazone (PARAFON FORTE DSC) 500 mg tablet Take 1 tablet four times a day until 24 hours headache free or for a maximum of 5 days. Do not take any other muscle relaxers or pain pills while taking this medication. Do not drive or operate machinery while taking this medication. rimegepant (NURTEC ODT) 75 mg disintegrating tablet Take 1 dissolvable tablet by mouth at migraine onset. Take only 1 tablet per 24 hours. gabapentin (NEURONTIN) 400 mg capsule Take 1 capsule by mouth three times daily. ondansetron (ZOFRAN) 4 mg tablet Take 1 tablet by mouth once daily as needed (for nausea.). naproxen (NAPROSYN) 500 mg tablet Take 1 tablet by mouth twice daily as needed (for pain/inflammation). Take with food. budesonide-formoterol (SYMBICORT) 80-4.5 mcg/actuation inhaler Inhale 2 Puffs as instructed twice daily. naratriptan (AMERGE) 2.5 mg tablet Take 1 tablet by mouth as needed. albuterol (PROVENTIL) 2.5 mg /3 mL (0.083 %) nebulizer solution Use 3 mL via nebulizer every 4 hours as needed. Use over 5-15minutes. Cholecalciferol, Vitamin D3, 125 mcg (5,000 unit) cap Take 1 capsule by mouth once daily. Leg Brace (YAO KNEE BRACE) misc Sleeve brace left knee cyclobenzaprine (FLEXERIL) 10 mg tablet Take 0.5-1 tablets by mouth three times daily as needed. No current facility-administered medications for this visit. FAMILY HISTORY Problem Relation Age of Onset Cancer Mother thyroid, skin. - precancerous cervical cells on pap smear Hypertension Mother Breast Cancer Maternal Grandmother Hypertension Maternal Grandmother Asthma Maternal Grandmother Heart Maternal Grandfather Ischemic Heart Disease Maternal Grandfather stomach, ovarian. Heart Attack Paternal Grandfather Ovarian cancer Other Great Grandmother Social History Tobacco Use Smoking status: Never Smokeless tobacco: Never Vaping Use Vaping Use: Former Substances: Nicotine, Flavoring Substance Use Topics Alcohol use: Yes Comment: 1 nightout every 2 months- 2-3 drinks-None since Drug use: No REVIEW OF SYSTEMS PAIN ASSESSMENT: CURRENTLY HAVING PAIN; see HPI HISTORY OF CHRONIC PAIN OR CURRENTLY BEING TREATED FOR A CHRONIC PAIN CONDITION: No RESPIRATORY: Negative for cough, hemoptysis, wheezing, COPD, dyspnea or shortness of breath CARDIOVASCULAR: Negative for chest pain, leg swelling, hypertension, CHF or palpitations GI: No vomiting, or diarrhea. Endorses nausea associated with pain : No history of dysuria, frequency. Stress incontinence. MUSCULOSKELETAL: Pain in lower back and right side, right shoulder, right leg All other reviewed and negative other than HPI. EXAM: BP 144/90 Pulse 93 Temp 37.6 C (99.6 F) Resp 16 LMP 07/07/2020 (Exact Date) SpO2 98% PHYSICAL EXAM: General Appearance: Well appearing, alert, in no acute distress, well-hydrated, well nourished.. Skin: Skin color, texture, turgor normal, no suspicious rashes or lesions. Head: Normocephalic, no masses, lesions, tenderness or abnormalities. Back:motor and sensory appear to be normal, no evidence of scoliosis Lungs: Lungs clear to auscultation. No wheezing, rhonchi, rales.. Heart: RRR without murmur, gallop, or rubs. No ectopy. Extremities: No deformities, edema, skin discoloration, clubbing or cyanosis. Good capillary refill. . Musculoskeletal: Positive for sciatic nerve tenderness in left lower back and gluteal area. Positive for drop left drop leg exam ASSESSMENT/PLAN: 1. Left-sided low back pain with right-sided sciatica, unspecified chronicity - ICD9: 724.3, ICD10:M54.41 (primary diagnosis) Chronic back pain, with recent new radiation to shoulder and down leg on left side. Muscle tightness and pain with limited ROM. Continue to take muscle relaxer/chlorzoxazone and gabapentin. Massage back and use topicals like biofreeze or iceyhot - Ice for localized tenderness - Warm moist heat for 20 min three times a day - Prednisone burst- as previously ordered. - Muscle relaxant- as previously ordered - UA DIP, URINE (POC) - CONSULT TO PHYSICAL THERAPY - TRAMADOL 50 MG TABLET 2. Stress incontinence - ICD9: [id number], ICD10: N39.3 Increased incontinence since childbirth. 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 Patient's questions answered appropriately. Medications and potential side effects were discussed and patient voices understanding. Return to the office as scheduled or as needed for worsening/no improvement. Ofelia Delaney APRN.MARISELA [facility] History of Present illness Narrative* Zoraida Rodarte APRN.CNP - 02/01/2023 1:30 PM EDT [facility] Follow-up Visit Miscellaneous Patient Concerns: She had her second Vyepti infusion at 100 mg dose on 12/24. She tolerates the infusion well. She is due for [facility] for Vyepti. There has been notable reduction in migraine frequency since started Impression: Ms. Garay is a 32-year-old female with history significant for chronic migraine, concussion (2007), anxiety, depression, asthma and goiter. She has seen significant improvement in migraine frequency and severity with the combination of Vyepti and Botox. She has gone from near daily headache to 10 headaches per month. We discussed treatment options and will maximize her Vyepti infusion, increasing to 300 mg every 3 months. Maria Elena Garay has been previously approved for Calcitonin Gene Related Peptide Monoclonal Antibody (CGRP MAB) (Eptinezumab). The patient has demonstrated the following: Patient reduction in overall migraine days: Yes Patient reduction in moderate-severe migraine days: Yes Individual has obtained clinical benefit deemed significant by individual or prescriber: Yes Patient's quality of life and ability to perform ADLs has improved: Yes We suggest the patient continue treatment with CGRP MAB Eptinezumab. She would benefit from increasing to 300 mg every 3 months. The following preventative medications have been tried for three or more months without benefit: Anti-Convulsant Carbamazepine (Tegretol) Gabapentin (Neurontin) Topiramate (Topamax, Trokendi XL, Qudexy) Anti-Depressant and Antipsychotic Amitriptyline (Elavil) Bupropion (Wellbutrin) Citalopram (Celexa) Fluoxetine (Prozac) Sertraline (Zoloft) Venlafaxine (Effexor) Blood Pressure Lisinopril (Zestril) Propranolol (Inderal) MABs Erenumab (Aimovig) Galcanezumab (Emgality) Botulinum Toxin Onabotulinum Toxin A (Botox) 6 treatments Supplements Magnesium The following abortive medications have been tried but require high frequency use which can lead toMedication Overuse Headache: Analgesic Butalbital/acetaminophen/caffeine (Fioricet) Diclofenac (Voltaren, Cataflam, Cambia) Hydrocodone/Acetaminophen (Vicodin, Cowpens) Ketorolac (Toradol) Meclofenamate (Meclomen) Meloxicam (Mobic) Oxycodone/Acetaminophen (Percocet) Tramadol (Ultram) Anti-Anxiety Buspirone (Buspar) Anti-Migraine Dihydroergotamine (DHE-45, Migranal) Eletriptan (Relpax) Naratriptan (Amerge) Rizatriptan (Maxalt) Sumatriptan (Imitrex, Sumavel) GEPANTS Ubrogepant (Ubrelvy) Over the Counter Medications Acetaminophen (Tylenol) Acetaminophen/Aspirin/Caffeine (Excedrin, Goody s) Naproxen sodium (Aleve) Maria Elena Garay has been previously approved for an Oral Calcitonin Gene- Related Peptide Receptor Antagonist (GEPANT) Rimegepant for the treatment of acute migraine. The patient has demonstrated the following: Provider attests patient has had a positive clinical response: Yes Patient will not use with another Oral Calcitonin Gene-Related Peptide Receptor Antagonist (GEPANT): Yes Patient's quality of life and ability to perform ADLs has improved: Yes The patient has tried and failed the following : We suggest the patient continue treatment with GEPANT Rimegepant. The following preventative medications have been tried for three or more months without benefit: Anti-Convulsant Carbamazepine (Tegretol) Gabapentin (Neurontin) Topiramate (Topamax, Trokendi XL, Qudexy) Anti-Depressant and Antipsychotic Amitriptyline (Elavil) Bupropion (Wellbutrin) Citalopram (Celexa) Fluoxetine (Prozac) Sertraline (Zoloft) Venlafaxine (Effexor) Blood Pressure Lisinopril (Zestril) Propranolol (Inderal) MABs Erenumab (Aimovig) Galcanezumab (Emgality) Botulinum Toxin Onabotulinum Toxin A (Botox) 6 treatments Supplements Magnesium The following abortive medications have been tried but require high frequency use which can lead toMedication Overuse Headache: Analgesic Butalbital/acetaminophen/caffeine (Fioricet) Diclofenac (Voltaren, Cataflam, Cambia) Hydrocodone/Acetaminophen (Vicodin, Cowpens) Ketorolac (Toradol) Meclofenamate (Meclomen) Meloxicam (Mobic) Oxycodone/Acetaminophen (Percocet) Tramadol (Ultram) Anti-Anxiety Buspirone (Buspar) Anti-Migraine Dihydroergotamine (DHE-45, Migranal) Eletriptan (Relpax) Naratriptan (Amerge) Rizatriptan (Maxalt) Sumatriptan (Imitrex, Sumavel) GEPANTS Ubrogepant (Ubrelvy) Over the Counter Medications Acetaminophen (Tylenol) Acetaminophen/Aspirin/Caffeine (Excedrin, Goody s) Naproxen sodium (Aleve) Plan: Rescue therapy: -Continue Nurtec as needed. -Parafon Forte PRN for neck. Preventive therapy: -Botox today. -Increase Vyepti to 300 mg every 3 months. -Propranolol 60 mg daily. -Gabapentin 400 mg TID. Follow-Up Onabotulinum Toxin A (BotoxTM) for Migraine Indication: Chronic Intractable Migraine Referral Expiration: 09/19/2023 Prior to the initiation of the FIRST treatment with Onabotulinum Toxin A, the patient reported the following average headache frequency over the past 3 MONTHS: Number of moderate-severe migraine days/month: 30 (daily) Number of mild migraine days/month: 0 Number of headache free days/month: 0 (0 headache-free hours) After treatment with Onabotulinum Toxin A: Number of moderate-severe migraine days/month: 5 Number of mild migraine days/month: 5 Number of headache free days/month: 20 (480 headache-free hours) Patient reduction in overall migraine days: Yes Patient reduction in moderate-severe migraine days: Yes Patient reduction of headache hours by 100 hours or more: Yes (reduction of 480 hours) Individual has obtained clinical benefit deemed significant by individual or prescriber (Y/N): Yes Patient's quality of life and ability to perform ADLs has improved (Y/N): Yes Side effects: none Wearing off: Yes - 9 weeks after treatment The patient has been assessed for disorders which could contribute to breathing or swallowing difficulty, and there is no contraindication with PREEMPT Botox. There is no documented allergic reaction/hypersensitivity to any botulinum toxin and there is no active infection at proposed injection site. HEADACHE SCORES: Headache Questions 05/27/2022 08/03/2022 11/02/2022 ER visits since last office visit: - 1 0 Hospital stays since last office visit - 0 0 Limited ADLs in the last month: - 12 20 Days missed from work or school in the last month: - 5 4 Days headache pain free in the last month: - 5 10 Days per month with ALL of the following symptoms - decreased productivity, light sensitivity and nausea: - 18 20 Initial improvement of headache after botox injection at last visit: - No change Minimally improved PRN medication usage in the last month: - 18 5 Patient impression of improvement since last visit: Minimally worse No change No change HIT-6 05/03/2022 08/03/2022 11/02/2022 HIT-6 - - - HIT-6 63 (Severe impact) 65 (Severe impact) 75 (Severe impact) MYLA - 2/7 SCORES 05/03/2022 08/03/2022 11/02/2022 MYLA-2 Score 2 2 3 MYLA-7 Score - - 13 Migraine Specific QOL - Higher scores indicate better HRQL 05/03/2022 08/03/2022 11/02/2022 Role Function-Restrictive Transformed Score (range: 0-100) 60 37.14 28.57 Role Function-Preventive Transformed Score (range: 0-100) 60 50 75 Emotional Function Transformed Score (range: 0-100) 60 20 20 PHQ-9 05/03/2022 08/03/2022 11/02/2022 Score 6 12 12 BP 134/90 Pulse 72 Wt 110.7 kg (244 lb) LMP 07/07/2020 (Exact Date) SpO2 99% BMI 40.65 kg/m Patient name: Maria Elena Garay : 1990 ALLERGIES Allergen Reactions Compazine [Prochlor* Other: See Comments Akathisia with IV Compazine Reglan [Metoclopram* Other: See Comments Akathisia with IV Reglan Seasonal Allergies Other: See Comments UNIVERSAL PROTOCOL / SAFETY CHECKLIST Procedure: Onabotulinum toxin A for migraine Informed Consent Consent Obtained: Written Phelps Protocol A moment to CARE was completed SIGN IN Personnel directly involved with the procedure wore the appropriate PPE Special Equipment: N/A Patient/Surrogate Stated/Verified: Patient name, Date of , Relevant allergies and Intended procedure TIME OUT Intended patient and procedure match the source document(s) Consent documented and matches the intended procedure No relevant labs, photos, and/or imaging studies were applicable for review. No correct side/site applicable for marking and visibility. No medications required for procedure. No fire risk assessment and interventions applicable. No implant(s) inserted. SIGN OUT No specimen collected. No instruments, equipment or retained foreign bodies applicable. Post-procedure follow-up management communicated and Plan of Care Visit completed when applicable Written Consent Obtained: Written LOT #: [id number] Expiration Date: Month: 2 Year: 2025 Second vial: LOT #: [id number] Expiration Date: Month: 2 Year: 2025 Injection Sites Left (Units) Left (Sites) Right (Units) Right (Sites) TOTAL (Units) Obstetrics Nurse Practitioner 5 1 5 1 10 Procerus Units: 5 Sites: 1 5 Frontalis 10 2 10 2 20 Temporalis optional follow the pain 20 5 4 1 20 5 4 1 50 Occipitalis optional follow the pain 15 5 3 1 15 5 3 1 40 Cervical PSP 10 2 10 2 20 Trapezius optional follow the pain 15 12.5 3 3 15 12.5 3 3 55 Total Units used: 200 Total Units wasted: 0 Patient tolerated procedure well. Prior Therapies Duration of Use Dose Side effect Analgesic Butalbital/acetaminophen/caffeine (Fioricet) Diclofenac (Voltaren, Cataflam, Cambia) Hydrocodone/Acetaminophen (Vicodin, Cowpens) Ketorolac (Toradol) Meclofenamate (Meclomen) Meloxicam (Mobic) Oxycodone/Acetaminophen (Percocet) Tramadol (Ultram) Anti-Anxiety Buspirone (Buspar) Anti-Convulsant Carbamazepine (Tegretol) Gabapentin (Neurontin) Topiramate (Topamax, Trokendi XL, Qudexy) Anti-Depressant and Antipsychotic Amitriptyline (Elavil) Bupropion (Wellbutrin) Citalopram (Celexa) Fluoxetine (Prozac) Sertraline (Zoloft) Venlafaxine (Effexor) Antiemetics Promethazine Reglan (Metoclopramide) Anti-Migraine Dihydroergotamine (DHE-45, Migranal) Eletriptan (Relpax) Naratriptan (Amerge) Rizatriptan (Maxalt) Sumatriptan (Imitrex, Sumavel) Blood Pressure Lisinopril (Zestril) Propranolol (Inderal) MABs Erenumab (Aimovig) Galcanezumab (Emgality) GEPANTS Ubrogepant (Ubrelvy) Botulinum Toxin Onabotulinum Toxin A (Botox) 6 treatments Muscle Relaxer Chlorzoxazone (Parafon Forte) Cyclobenzaprine (Flexeril) Supplements Magnesium Other Medications Prednisone Over the Counter Medications Acetaminophen (Tylenol) Acetaminophen/Aspirin/Caffeine (Excedrin, Goody s) Naproxen sodium (Aleve) Zoraida Rodarte APRN.MARISELA documented [facility]23 Instructions* Patient Instructions* Zoraida Rodarte APRN.CNP - 02/01/2023 1:29 PM EDT [place] location for next Botox. Mushtaq Alvarez CNP or Christie Linares CNP. AFTER VISIT CARE BOTOX INJECTION While these procedures can be extremely helpful as part of your headache treatment plan, they can irritate the muscles and tissues in your head, neck and shoulders. Proper follow-up care is important to avoid muscle spasms and temporary pain increase within the following 3-5 days after your clinic visit. Here are some tips to help decrease side-effects that may occur and maximize the effectiveness of your pain relief -HYDRATION Hydration is important to help nourish your muscles and tissues. Drink 60-80 oz of non caffeinated fluid at least for 3 days after your visit. -REST Rest will help avoid further irritation of muscle and tissues. Remember that you need to give your body time to adjust. NO strenuous activity for at least the first 24 hours after your visit. Gentle stretching, yoga, meditation or even swimming is OK and encouraged. -ICE/HEAT Since these procedures irritate muscles, there can be some swelling. Alternating ice and heat every3-5 times per day may help decrease this, while also optimizing pain relief Use cool gel packs for ice for 10 min. Use a warm moist towel covered with a dry towel on neck and shoulders. Alternate stretching each side of the neck. -STRETCHING Slow, gentle stretching of the neck and shoulders once every hour is helpful to avoid muscle spasms. -TREAT MUSCLE SPASMS If you are already prescribed a muscle relaxer such as baclofen, tizanidine or flexeril, use as directed. If you do not have one, talk to your provider to find out if this would be safe for you to use. Do not rub or massage the area for 48-72 hours. -OTHER No hair dyes or permanents for 24 hours. If you are paying out of pocket for Botox go online to Botox Savings Program and see if you qualifyfor reimbursement. Return in 3 months for your next Botox Injection documented [facility] this encounterGe[facility]08-[facility]23 Nurse Note* Desi Ron RN - 12/24/2022 8:28 AM EDT 0842 Patient in for vyepti. Patient rated headache 6/10. Patient stated mild nausea and no dizziness. Patient educated on medications to be administered. Patient verbalized understanding and agreed to proceed with infusions. [id number] infusions complete. Pt tolerated infusion well. Pt rated headache 6/10. Pt stated mild nausea and no dizziness. Pt discharged from treatment room. documented in this encounterGe[facility]08-07-2023 Miscellaneous Notes* Telephone Encounter - Travis Kim LPN - 12/20/2022 5:28 PM EDT See pt MC message. Order faxed to [email or web address]. Travis Kim LPN * Telephone Encounter - Travis Kim LPN - 12/17/2022 2:42 PM EDT Phoned pt, notified of the same. She will contact insurance to see where to fax CPAP to and call usback with that information. Travis Kim LPN * Telephone Encounter - Ofelia Delaney APRN.MARISELA - 12/17/2022 1:16 PM EDT Order done. Please fax to DME supplier of patient choice. Ofelia Delaney APRN.MARISELA * Telephone Encounter - Elizabeth Moreno RN - 12/15/2022 10:37 AM EDT Phoned pt and gave provider's message below with verbalized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 really help She continues with stretching She has heel lift in the left foot. PAIN EVALUATION 05/27/2022 1558 06/01/2022 1540 Pain Level: 8 5 Left foot 6/10 Pain Location: Head Heel-Right Description: Aching;Burning;Pressure;Pulsating;Sharp;Throbbing Sharp;Burning;Stabbing Duration Amount of Time: 6 -- Duration Units: Days Unknown Frequency: Continuous Intermittent Intervention/Comfort measure: Medication;Relaxation;Aromatherapy to promote a healing environment Reposition;Distractions;Relaxation Hemoglobin A1C Date Value Ref Range Status 06/12/2020 5.5 4.3 - 5.6 % Final Comment: [place] [employer] guidelines indicate that patients with HgbA1c in the range 5.7-6.4% are at increased risk for development of diabetes, and intervention by lifestyle modification may be beneficial. HgbA1c greater or equal to 6.5% is considered diagnostic of diabetes. 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 Do not take any other muscle relaxers or pain pills while taking this medication. Do not drive or operate machinery while taking this medication. divalproex ER (DEPAKOTE ER) 500 mg 24 hr tablet Take 2 tablets by mouth for 5 days. Then take 1 tablet by mouth for 5 days. gabapentin (NEURONTIN) 400 mg capsule Take 1 capsule by mouth three times daily. hydroCHLOROthiazide (HYDRODIURIL, ESIDRIX) 12.5 mg capsule Take 1 capsule by mouth once daily. lisinopril (ZESTRIL, PRINIVIL) 10 mg tablet Take 1 tablet by mouth once daily. ondansetron (ZOFRAN) 4 mg tablet Take 1 tablet by mouth once daily as needed (for nausea.). propranolol ER (INDERAL LA) 60 mg 24 hr capsule Take 1 capsule by mouth once daily. naproxen (NAPROSYN) 500 mg tablet Take 1 tablet by mouth twice daily as needed (for pain/inflammation). Take with food. venlafaxine ER (EFFEXOR XR) 150 mg 24 hr capsule Take 1 capsule by mouth once daily. budesonide-formoterol (SYMBICORT) 80-4.5 mcg/actuation inhaler Inhale 2 Puffs as instructed twice daily. naratriptan (AMERGE) 2.5 mg tablet Take 1 tablet by mouth as needed. albuterol HFA (PROVENTIL HFA, VENTOLIN HFA) 90 mcg/actuation inhaler INHALE 2 PUFFS BY MOUTH INSTRUCTED EVERY 4 HOURS NEEDED FOR WHEEZING/SHORTNESS OF BREATH. albuterol (PROVENTIL) 2.5 mg /3 mL (0.083 %) nebulizer solution Use 3 mL via nebulizer every 4 hours as needed. Use over 5-15minutes. Cholecalciferol, Vitamin D3, 125 mcg (5,000 unit) cap Take 1 capsule by mouth once daily. Leg Brace (YAO KNEE BRACE) misc Sleeve brace left knee cyclobenzaprine (FLEXERIL) 10 mg tablet Take 0.5-1 tablets by mouth three times daily as needed. rimegepant (NURTEC ODT) 75 mg disintegrating tablet Take 1 dissolvable tablet by mouth at migraine onset. Take only 1 tablet per 24 hours. (Patient not taking: Reported on 06/01/2022) Current Facility-Administered Medications Medication Dose Route Frequency onabotulinum toxin type A 200 Units injection (BOTOX) 200 Units INTRADERMAL q 3 MONTHS ALLERGIES Allergen Reactions Compazine [Prochlor* Other: See Comments Akathisia with IV Compazine Reglan [Metoclopram* Other: See Comments Akathisia with IV Reglan Seasonal Allergies Other: See Comments PAST SURGICAL HISTORY Procedure Laterality Date ESOPHAGOGASTRODUODENOSCOPY TRANSORAL DIAGNOSTIC 03/21/2013 EGD KNEE 1 OP 2 VIEWS KNEE ARTHROSCOPY/SURGERY 11/2011 left LAP SURG APPENDECTOMY 04/24/2021 LAPAROSCOPY DIAGNOSTIC 05/31/2019 at [facility]-Dr. Oscar [place] SURG CHOLECYSTECTOMY W/CHOLANGIOGRAPHY 02/14/2013 SALPINGECTOMY Bilateral 05/31/2019 B/L Salpingectomy at [facility]-Dr. Moore TONSILLECTOMY HX 03/2018 [facility]-Dr. James TUBAL LIGATION HX 01/13/2016 filshie clips Physical Exam: OBJECTIVE: Constitutional: Pt is a well developed 31 year old female who is alert, oriented, cooperative and in no apparent distress. Eyes: Following during examination. No redness or drainage. Respiratory: RR normal and nonlabored. Even breathing. No evidence of distress. Psychology: Patient is engaged during conversation. Normal affect and mood. Does not appear depressed or anxious. NVSI unchanged from previous visit. Dermatological: Nails 1-5 b/l are normal. Webspaces clean and dry 1-4 b/l. Skin appears well hydrated and supple. good color, texture, turgor. No open lesions present. No callosities present. Musculoskeletal/Orthopaedic: Patient has pain to palpation of b/l medial calcaneal tubercle - tinel to b/l feet Xrays reviewed from March. No fracture present ASSESSMENT: (M72.2) Plantar fasciitis (primary encounter diagnosis) (M79.671, M79.672) Foot pain, bilateral PLAN: Discussed plantar fasciitis of b/l feet. The pain in right foot is better. I would allow her to transition back into sneaker with powerstep insert. Recommend powerstep inserts b/l with good supportive tennis shoe Continue with stretching, icing, night splint Offered injection but she declined today. If pain fails to improve, consider injection I made referral to therapy. She feels this may be difficult to do with her work schedule. If pain fails to improve, pursue therapy Ultimately, if left foot pain fails to improve, she could use the boot on left foot Russ Cha DPM * Radhika Way RN - 06/01/2022 3:39 PM EST AMB ROOMING INTAKE FLOWSHEET DATA Pain Pain Level: 5 (Left foot /10) Pain Location: Heel-Right Description: Sharp, Burning, Stabbing Duration Amount of Time: 6 Duration Units: Unknown Frequency: Intermittent Intervention/Comfort measure: Reposition, Distractions, Relaxation Patient presents with: Left Foot - Established Patient, Follow Up, Pain Right Foot - Established Patient, Follow Up, Pain Patient presents for follow up of bilateral foot pain. States Left foot planter fasciitis pain is getting worse, right foot has improved but her right heel pain has not improved. documented in this encounterGe[facility]01-13-2023 History of Present illness Narrative* Zoraida Rodarte, LARISA.[facility] - 05/28/2022 1:00 PM EST Headache Center - Follow up Virtual Visit Patient's headache clinic evaluation was scheduled as a virtual visit using the following platform ZOOM Maria Elena Garay was identified by name and and consented to the video evaluation and its limitations. Based on this evaluation it may be necessary for them to schedule a follow up evaluation with me or other neurologists for formal physical examination and if necessary,other studies. Accompanied by: Self Primary Problem List: ACTIVE PROBLEM LIST Anxiety Asthma Thyromegaly Obesity, Class II, Bmi 35-39.9 Thrombocytosis Neutropenia (Hcc) Hypertension, Essential Migraine Without Aura, Intractable, With Status Migrainosus Patellofemoral Arthralgia of Right Knee Chief Complaint: Migraine, Follow-up Impression and Plan from last visit: [facility] 05/04/2022 with Me. Ms. Garay is a 31-year-old female with history significant for chronic migraine, concussion (2007), anxiety, depression, asthma and goiter. At her last visit she received Botox. Interval Headache History: She has had intractable migraine for the past 7 days. She has had to miss 2 days of work. She did go to the ER, [facility] ER on 05/26/2022. Completed blood work (CBC, BMP) and CT Brain. She was given IV Benadryl, Toradol and Zofran. This did not provide any relief. She does feel like Botox provides her relief. Headache 1 This is the current headache. Location: Bifrontal, retro-orbital, temples Quality/Description: brain is on fire, pressure, throbbing, burning Associated symptoms: Photophobia: yes Phonophobia: yes Nausea: yes Vomiting: no Other symptoms: language disturbance, confusion, lightheadedness and dizziness Worse with activity: yes Number of migraine days per month: 30 Migraine severity: Typically averages around 3-4/10. Can spike to 8/10. Number of headache free days per month: 0 Duration of headaches with treatment: Intractable for the past 7 days. Current treatment: Botox, Gabapentin, Lisinopril (with PCP), Propranolol, Effexor (with PCP) Current rescue treatment: Amerge, Naproxen, Ubrelvy, Zofran Triggers: menses, stress and weather changes Onset of headache to peak: varies Relieving factors: Rest/sleep, relaxation, medication (tried Ubrelvy - no help), heat, lavender scent Positional changes: no Aura: none Allodynia: yes Analgesic Butalbital/acetaminophen/caffeine (Fioricet) Diclofenac (Voltaren, Cataflam, Cambia) Hydrocodone/Acetaminophen (Vicodin, [place]) Ketorolac (Toradol) Meclofenamate (Meclomen) Meloxicam (Mobic) Oxycodone/Acetaminophen (Percocet) Tramadol (Ultram) Anti-Anxiety Buspirone (Buspar) Anti-Convulsant Carbamazepine (Tegretol) Gabapentin (Neurontin) Topiramate (Topamax, Trokendi XL, Qudexy) Anti-Depressant and Antipsychotic Amitriptyline (Elavil) Bupropion (Wellbutrin) Citalopram (Celexa) Fluoxetine (Prozac) Sertraline (Zoloft) Venlafaxine (Effexor) Antiemetics Promethazine Reglan (Metoclopramide) Anti-Migraine Dihydroergotamine (DHE-45, Migranal) Eletriptan (Relpax) Naratriptan (Amerge) Rizatriptan (Maxalt) Sumatriptan (Imitrex, Sumavel) Blood Pressure Lisinopril (Zestril) Propranolol (Inderal) MABs Erenumab (Aimovig) Galcanezumab (Emgality) GEPANTS Ubrogepant (Ubrelvy) Botulinum Toxin Onabotulinum Toxin A (Botox) 6 treatments Muscle Relaxer Chlorzoxazone (Parafon Forte) Cyclobenzaprine (Flexeril) Supplements Magnesium Other Medications Prednisone Over the Counter Medications Acetaminophen (Tylenol) Acetaminophen/Aspirin/Caffeine (Excedrin, Goody s) Naproxen sodium (Aleve) PAST MEDICAL HISTORY Diagnosis Date Abnormal Pap smear of cervix ASCUS Acute appendicitis 04/2021 Allergic rhinitis, cause unspecified Anxiety 03/17/2010 buspar Asthma Concussion 2007 Dysmenorrhea Excessive or frequent menstruation Heavy periods Mental disorder Migraine, unspecified, with intractable migraine, so stated, without mention of status migrainosus Migraine Ovarian cyst resolved Pain in joint, pelvic region and thigh 07/29/2014 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 Moore LAPSergei SURG CHOLECYSTECTOMY W/CHOLANGIOGRAPHY 02/14/2013 SALPINGECTOMY Bilateral 05/31/2019 B/L Salpingectomy at [facility]-Dr. Moore TONSILLECTOMY HX 03/2018 [facility]-Dr. James TUBAL LIGATION HX 01/13/2016 filshie clips ALLERGIES Allergen Reactions Compazine [Prochlor* Other: See Comments Akathisia with IV Compazine Reglan [Metoclopram* Other: See Comments Akathisia with IV Reglan Seasonal Allergies Other: See Comments Issues and questions to be addressed: Medications gabapentin (NEURONTIN) 400 mg capsule^Take 1 capsule by mouth three times daily.^Disp: 270 capsule^Rfl: 3 hydroCHLOROthiazide (HYDRODIURIL, ESIDRIX) 12.5 mg capsule^Take 1 capsule by mouth once daily.^Disp: 90 capsule^Rfl: 0 lisinopril (ZESTRIL, PRINIVIL) 10 mg tablet^Take 1 tablet by mouth once daily.^Disp: 90 tablet^Rfl:3 ondansetron (ZOFRAN) 4 mg tablet^Take 1 tablet by mouth once daily as needed (for nausea.).^Disp: 20 tablet^Rfl: 11 ubrogepant (UBRELVY) 50 mg tablet^Take 1 tablet at onset of migraine/headache. May repeat dose in 2hours if needed. Do not take more than 2 tablets in 24 hours.^Disp: 10 tablet^Rfl: 5 propranolol ER (INDERAL LA) 60 mg 24 hr capsule^Take 1 capsule by mouth once daily.^Disp: 30 capsule^Rfl: 2 naproxen (NAPROSYN) 500 mg tablet^Take 1 tablet by mouth twice daily as needed (for pain/inflammation). Take with food.^Disp: 60 tablet^Rfl: 1 venlafaxine ER (EFFEXOR XR) 150 mg 24 hr capsule^Take 1 capsule by mouth once daily.^Disp: 90 capsule^Rfl: 3 budesonide-formoterol (SYMBICORT) 80-4.5 mcg/actuation inhaler^Inhale 2 Puffs as instructed twice daily.^Disp: ^Rfl: naratriptan (AMERGE) 2.5 mg tablet^Take 1 tablet by mouth as needed.^Disp: 30 tablet^Rfl: 5 albuterol HFA (PROVENTIL HFA, VENTOLIN HFA) 90 mcg/actuation inhaler^INHALE 2 PUFFS BY MOUTH INSTRUCTED EVERY 4 HOURS NEEDED FOR WHEEZING/SHORTNESS OF BREATH.^Disp: 1 Each^Rfl: 5 albuterol (PROVENTIL) 2.5 mg /3 mL (0.083 %) nebulizer solution^Use 3 mL via nebulizer every 4 hours as needed. Use over 5-15minutes.^Disp: 1 Package^Rfl: 0 chlorzoxazone (PARAFON FORTE DSC) 500 mg tablet^Take 1 tablet by mouth four times daily as needed. Do not take Flexeril or any other muscle relaxer when taking this medication.^Disp: 20 tablet^Rfl: 2 Cholecalciferol, Vitamin D3, 125 mcg (5,000 unit) cap^Take 1 capsule by mouth once daily.^Disp: ^Rfl: Leg Brace (AYO KNEE BRACE) misc^Sleeve brace left knee^Disp: 1 Each^Rfl: 0 cyclobenzaprine (FLEXERIL) 10 mg tablet^Take 0.5-1 tablets by mouth three times daily as needed.^Disp: 20 tablet^Rfl: 0 I have reviewed the Juan Status Assessment responses and discussed these with the patient: Yes, Zoraida Rodarte, LARISA.UI ARCHITECT HEADACHE SCORES: Headache Questions 02/02/2022 05/03/2022 05/27/2022 ER visits since last office visit: - 0 - Hospital stays since last office visit - 0 - Limited ADLs in the last month: - 10 - Days missed from work or school in the last month: - 4 - Days headache pain free in the last month: - 7 - Days per month with ALL of the following symptoms - decreased productivity, light sensitivity and nausea: - 5 - Initial improvement of headache after botox injection at last visit: - No change - PRN medication usage in the last month: - 6 - Patient impression of improvement since last visit: No change No change Minimally worse HIT-6 02/01/2022 02/02/2022 05/03/2022 HIT-6 - - - HIT-6 64 (Severe impact) 64 (Severe impact) 63 (Severe impact) MYLA - 2/7 SCORES 02/01/2022 02/01/2022 05/03/2022 MYLA-2 Score 2 2 2 MYLA-7 Score - - - Migraine Specific QOL - Higher scores indicate better HRQL 02/01/2022 02/02/2022 05/03/2022 Role Function-Restrictive Transformed Score (range: 0-100) 57.14 57.14 60 Role Function-Preventive Transformed Score (range: 0-100) 65 65 60 Emotional Function Transformed Score (range: 0-100) 60 60 60 PHQ-9 02/01/2022 02/02/2022 05/03/2022 Score 9 9 6 Studies to Review: STUDY: CT BRAIN WITHOUT CONTRAST REASON FOR EXAM: Female, 31 years old. High-grade headache for 5 days. Controlled hypertension. RADIATION DOSAGE (If Supplied By Facility): CTDIvol = ( 44.99 ) mGy, DLP = ( 796.11 ) mGycm TECHNIQUE: Transaxial CT imaging of the brain was performed without administration of intravenous contrast material. Individualized dose optimization techniques were used for this CT. COMPARISON: October 16, 2019. FINDINGS: Normal soft tissue structures. Normal calvarium. Normal size ventricles and extra-axial spaces for the patient''s age. Normal white matter tracts of the cerebral hemispheres. Normal basal ganglia and thalami. Normal brainstem. Normal cerebellum. There is no intracranial hemorrhage. There are no findings of an acute ischemic infarction. Mucous retention cyst in the right maxillary sinus. CT/Brain/Head without Contrast IMPRESSION: 1. Mucous retention cyst right maxillary sinus. 2. No evidence of acute intracranial or calvarial abnormality. There is no change in the intracranial findings when compared to the prior study. MRI Head/Brain - Last 2 Impressions MRI BRAIN WO/W IVCON Collected: 10/26/2016 10:12 AM (Final result) Impression: IMPRESSION: No evidence of an acute intracranial process, mass, or abnormal enhancement. ... New Health Issues: No New Social History: No New Family History: No Review of Systems: Stress: Lately she has been under a lot of stress. Physical Examination: Vital Signs: LMP 07/07/2020 (Exact Date) General: Well appearing, in no acute distress, alert. Pain Behaviors: No pain behaviors observed. Neurological: Mental Status: Alert and oriented to person, place and time. Affect is normal and appropriate. Speech is spontaneous and fluent without dysarthria, normal in rate, volume and articulation, and clear,coherent, and relevant. 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 Attention span and concentration are excellent. HEENT: Head is normocephalic and features were symmetric. Musculoskeletal: Patient able to sit upright throughout the appointment. Cranial Nerves: III, IV, -EOMI: full. VII-face is symmetric without evidence of weakness. VIII-hearing intact. IMPRESSION: Chronic daily headache (primary encounter diagnosis) Intractable chronic 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 Ms. Garay is a 31-year-old female with history significant for chronic migraine, concussion (2007), anxiety, depression, asthma and goiter. She continues to have chronic daily headache most consistent with chronic migraine. She has had intractable migraine for the past 7 days. She did go to the ER yesterday and received IV cocktail and completed CT Brain which was essentially normal. Her migraine continues despite IV medications in the ER. We discussed treatment options and will complete Depakote taper and Parafon Forte bridge to break her migraine cycle. She will come in for 3-days of IV infusions if migraine continues despite this treatment. Ubrelvy provides inconsistent benefit so we will switch to Nurtec in hopes for improved response. She does respond well to Botox typically however it wears off about a month before she is due. We will add Vyepti for migraine prevention. We will get a precert for Calcitonin Gene Related Peptide Monoclonal Antibody, Eptinezumab. This patient meets AHS criteria for treatment with CGRP MAB, She has Chronic Migraine Headache (CM), Chronic Migraine without aura, without mention of intractable migraine without mention of status migrainosus which occurs at least 15 days per month for at least 4 hours per day. The FDA has approved CGRP MAB for prevention of migraine. Specifically, the patient has 30 migraines per month, lasting 4 or more hours/d associated with photophobia, phonophobia, nausea, lightheaded, language disturbance, confusion for three or more months. Medication overuse headache has been ruled out. Patient is currentlytaking a gepant for acute treatment of her migraine. The following preventative medications have been tried for 3 or more months without benefit or discontinued due and/or side effects. Anti-Convulsant Carbamazepine (Tegretol) Gabapentin (Neurontin) Topiramate (Topamax, Trokendi XL, Qudexy) Anti-Depressant and Antipsychotic Amitriptyline (Elavil) Bupropion (Wellbutrin) Citalopram (Celexa) Fluoxetine (Prozac) Sertraline (Zoloft) Venlafaxine (Effexor) Blood Pressure Lisinopril (Zestril) Propranolol (Inderal) MABs Erenumab (Aimovig) Galcanezumab (Emgality) Botulinum Toxin Onabotulinum Toxin A (Botox) 6 treatments Supplements Magnesium The following abortive medications have been tried but require high frequency use which can lead toMedication Overuse Headache: Analgesic Butalbital/acetaminophen/caffeine (Fioricet) Diclofenac (Voltaren, Cataflam, Cambia) Hydrocodone/Acetaminophen (Vicodin, Cowpens) Ketorolac (Toradol) Meclofenamate (Meclomen) Meloxicam (Mobic) Oxycodone/Acetaminophen (Percocet) Tramadol (Ultram) Anti-Anxiety Buspirone (Buspar) Anti-Migraine Dihydroergotamine (DHE-45, Migranal) Eletriptan (Relpax) Naratriptan (Amerge) Rizatriptan (Maxalt) Sumatriptan (Imitrex, Sumavel) GEPANTS Ubrogepant (Ubrelvy) Over the Counter Medications Acetaminophen (Tylenol) Acetaminophen/Aspirin/Caffeine (Excedrin, Goody s) Naproxen sodium (Aleve) We will get a precert for an Oral Calcitonin Gene-Related Peptide Receptor Antagonist (GEPANT) Rimegepant for the rescue treatment of chronic migraine . This patient meets AHS criteria for treatment of migraine with an oral small molecule CGRP antagonist GEPANT. The FDA has approved GEPANTS for thetreatment of migraine. Specifically, the patient has 30 headaches per month, lasting 4 or more hours/day associated with photophobia, phonophobia, nausea, lightheaded, language disturbance, confusionfor three or more months. Medication overuse headache has been ruled out.Patient will not use with another GEPANT. The patient has tried and failed the following : Anti-Migraine Dihydroergotamine (DHE-45, Migranal) Eletriptan (Relpax) Naratriptan (Amerge) Rizatriptan (Maxalt) Sumatriptan (Imitrex, Sumavel) Analgesic Butalbital/acetaminophen/caffeine (Fioricet) Diclofenac (Voltaren, Cataflam, Cambia) Hydrocodone/Acetaminophen (Vicodin, Cowpens) Ketorolac (Toradol) Meloxicam (Mobic) PLAN: Another part of evaluating chronic headache may include imaging. Currently, no need. However, in the future if indicated, this may be ordered. HEADACHE MANAGEMENT: (You are the primary guardian of your health and headache. Keep track of all medications: This includes the reason for use, side effects and benefits.) MEDICATION TREATMENT: Abortive therapy: -Switch Ubrelvy to Nurtec in hopes for improved response. -Consider Trudhesa. Bridging therapy: -Depakote taper and Parafon Forte bridge. -3-days of IV infusions next step. Preventive therapy: -Continue Botox. -Gabapentin 400 mg TID. -Propranolol 60 mg daily. -Effexor and Lisinopril per prescriber. -Start Vyepti 100 mg every 3 months. Headache education was done. Discussed triggers and lifestyle modifications. Discussed treatment options including preventive and acute medications, natural supplements, and infusion therapy. Discussed medication overuse headache and to limit use of acute treatments to no more than 2 days/week or 10 days/month. Discussed medication side effects, adverse reactions and drug interactions. Follow-up: PRN, for BOTOX, regularly scheduled appointment Level of service: Est level 4 (30-39 min). Time spent 30 min on the day of service, which included preparing to see the patient, [id number] patient care, completing clinical documentation, obtaining and/or reviewing separately obtained history, performing a medically appropriate examination, counseling and educating the patient/family/caregiver, and ordering medications, tests, or procedures. Zoraida Rodarte APRN.CNP documented in this encounterGe[facility]01-[facility]23 Miscellaneous Notes* Telephone Encounter - Zoraida Rodarte APRN.CNP - 05/26/2022 4:17 PM EST Virtual ok if she cannot come in person to [facility] Tuesday. Zoraida Rodarte APRN.CNP * Telephone Encounter - Ne Rolle RN - 05/26/2022 4:08 PM EST Called patient. Explained that ED is advised, patient understanding. She said she would try to go the ED. Let her know [facility] has openings on Tuesday. She cannot come to [facility], would virtual be ok? Otherwise she wouldn't be able to get in until next week. Please advise. Vicky Rolle RN * Telephone Encounter - Zoraida Rodarte APRN.MARISELA - 05/26/2022 3:56 PM EST If she is experiencing new symptoms and change in typical headache/migraine pattern she should be evaluated in the ER. She should also schedule an in person appointment with Dr. Mittal and/or MARCUS. Zoraida Rodarte APRN.UI ARCHITECT * Telephone Encounter - Ne Rolle RN - 05/26/2022 3:31 PM EST Called patient to discuss current Headache. Patient reports: Are you having your typical migraine? If not, what is different? Feels like migraine/brain is on fire, not typical sensation Headache location? Frontal, temples, stiff neck How long have you had this headache? 5 days Pain level of headache? 8/10 Quality (throbbing, pressure, etc)? Pressure, burning, sharp Associated Symptoms? shakey, dizzy and super nauseous, black out vision but did not lose consciousness/pass out What medication have you tried this headache cycle? Zofran, Ubrelvy did not help Have you tried migraine cycle breakers in the past that has helped (ex. steroids, etc)? She cannot recall Preferred pharmacy? [facility] in [place] Suggested that ED may be best option. She said that last time she went the ED doc refused to do a CT because he said she should get that through us (Neurology). Will call patient back with recommendations from Padmini. Vicky Rolle RN * Telephone Encounter - Dalia Lockwood - 05/26/2022 2:53 PM EST Patient last seen on 05/04/22. documented in this encounterGe[facility]12-20-2022 Instructions* Patient Instructions* Zoraida oRdarte APRN.UI ARCHITECT - 05/04/2022 1:03 PM EST AFTER VISIT CARE BOTOX INJECTION While these procedures can be extremely helpful as part of your headache treatment plan, they can irritate the muscles and tissues in your head, neck and shoulders. Proper follow-up care is important to avoid muscle spasms and temporary pain increase within the following 3-5 days after your clinic visit. Here are some tips to help decrease side-effects that may occur and maximize the effectiveness of your pain relief -HYDRATION Hydration is important to help nourish your muscles and tissues. Drink 60-80 oz of non caffeinated fluid at least for 3 days after your visit. -REST Rest will help avoid further irritation of muscle and tissues. Remember that you need to give your body time to adjust. NO strenuous activity for at least the first 24 hours after your visit. Gentle stretching, yoga, meditation or even swimming is OK and encouraged. -ICE/HEAT Since these procedures irritate muscles, there can be some swelling. Alternating ice and heat every3-5 times per day may help decrease this, while also optimizing pain relief Use cool gel packs for ice for 10 min. Use a warm moist towel covered with a dry towel on neck and shoulders. Alternate stretching each side of the neck. -STRETCHING Slow, gentle stretching of the neck and shoulders once every hour is helpful to avoid muscle spasms. -TREAT MUSCLE SPASMS If you are already prescribed a muscle relaxer such as baclofen, tizanidine or flexeril, use as directed. If you do not have one, talk to your provider to find out if this would be safe for you to use. Do not rub or massage the area for 48-72 hours. -OTHER No hair dyes or permanents for 24 hours. If you are paying out of pocket for Botox go online to Botox Savings Program and see if you qualifyfor reimbursement. Return in 3 months for your next Botox Injection documented in this encounterGe[facility]12-20-2022 History of Present illness Narrative* Zoraida Rodarte APRN.CNP - 05/04/2022 1:00 PM EST Follow-Up Onabotulinum Toxin A (BotoxTM) for Migraine Indication: Chronic Intractable Migraine Treatment #: 8 Referral Expiration: 09/18/2022 Prior to the initiation of the FIRST treatment with Onabotulinum Toxin A, the patient reported the following average headache frequency over the past 3 MONTHS: Number of moderate-severe migraine days/month: 30 (daily) Number of mild migraine days/month: 0 Number of headache free days/month: 0 (0 headache-free hours) Migraine severity: 8/10 After treatment with Onabotulinum Toxin A: Number of moderate-severe migraine days/month: 5 Number of mild migraine days/month: 18 Number of headache free days/month: 7 (168 headache-free hours) Migraine severity: 5/10 Patient reduction in overall migraine days: Yes Patient reduction in moderate-severe migraine days: Yes Patient reduction of headache hours by 100 hours or more: Yes (reduction of 168 hours) Individual has obtained clinical benefit deemed significant by individual or prescriber (Y/N): Yes Patient's quality of life and ability to perform ADLs has improved (Y/N): Yes Side effects: none Wearing off: Yes - 9 weeks after treatment The patient has been assessed for disorders which could contribute to breathing or swallowing difficulty, and there is no contraindication with PREEMPT Botox. There is no documented allergic reaction/hypersensitivity to any botulinum toxin and there is no active infection at proposed injection site. Botox has been the most effective treatment for her to date. Consider Sandra next step. Pamphlet provided to patient. She will check with her insurance. HEADACHE SCORES: Headache Questions 02/01/2022 02/02/2022 05/03/2022 ER visits since last office visit: 1 - 0 Hospital stays since last office visit 0 - 0 Limited ADLs in the last month: 10 - 10 Days missed from work or school in the last month: 3 - 4 Days headache pain free in the last month: 5 - 7 Days per month with ALL of the following symptoms - decreased productivity, light sensitivity and nausea: 4 - 5 Initial improvement of headache after botox injection at last visit: No change - No change PRN medication usage in the last month: 8 - 6 Patient impression of improvement since last visit: No change No change No change HIT-6 02/01/2022 02/02/2022 05/03/2022 HIT-6 - - - HIT-6 64 (Severe impact) 64 (Severe impact) 63 (Severe impact) MYLA - 2/7 SCORES 02/01/2022 02/01/2022 05/03/2022 MYLA-2 Score 2 2 2 MYLA-7 Score - - - Migraine Specific QOL - Higher scores indicate better HRQL 02/01/2022 02/02/2022 05/03/2022 Role Function-Restrictive Transformed Score (range: 0-100) 57.14 57.14 60 Role Function-Preventive Transformed Score (range: 0-100) 65 65 60 Emotional Function Transformed Score (range: 0-100) 60 60 60 PHQ-9 02/01/2022 02/02/2022 05/03/2022 Score 9 9 6 BP 137/85 (BP Site: Left Arm, BP Position: Sitting, BP Cuff Size: Large Adult) Pulse 103 Wt 113.4 kg (250 lb) LMP 07/07/2020 (Exact Date) SpO2 100% BMI 42.91 kg/m Patient name: Maria Elena Garay : 1990 ALLERGIES Allergen Reactions Compazine [Prochlor* Other: See Comments Akathisia with IV Compazine Reglan [Metoclopram* Other: See Comments Akathisia with IV Reglan Seasonal Allergies Other: See Comments UNIVERSAL PROTOCOL / SAFETY CHECKLIST Procedure: Onabotulinum toxin A for migraine Informed Consent Consent Obtained: Written Phelps Protocol A moment to CARE was completed SIGN IN Personnel directly involved with the procedure wore the appropriate PPE Special Equipment: N/A Patient/Surrogate Stated/Verified: Patient name, Date of , Relevant allergies and Intended procedure TIME OUT Intended patient and procedure match the source document(s) Consent documented and matches the intended procedure No relevant labs, photos, and/or imaging studies were applicable for review. No correct side/site applicable for marking and visibility. No medications required for procedure. No fire risk assessment and interventions applicable. No implant(s) inserted. SIGN OUT No specimen collected. No instruments, equipment or retained foreign bodies applicable. Post-procedure follow-up management communicated and Plan of Care Visit completed when applicable Written Consent Obtained: Written LOT #: [id number] Expiration Date: Month: 3 Year: 2024 Second vial: LOT #: [id number] Expiration Date: Month: Year: 2024 Injection Sites Left (Units) Left (Sites) Right (Units) Right (Sites) TOTAL (Units) Obstetrics Nurse Practitioner 5 1 5 1 10 Procerus Units: 5 Sites: 1 5 Frontalis 10 2 10 2 20 Temporalis optional follow the pain 20 5 4 1 20 5 4 1 50 Occipitalis optional follow the pain 15 5 3 1 15 5 3 1 40 Cervical PSP 10 2 10 2 20 Trapezius optional follow the pain 15 12.5 3 3 15 12.5 3 3 55 Total Units used: 200 Total Units wasted: 0 Patient tolerated procedure well. Prior Therapies Duration of Use Dose Side effect Analgesic Butalbital/acetaminophen/caffeine (Fioricet) Diclofenac (Voltaren, Cataflam, Cambia) Hydrocodone/Acetaminophen (Vicodin, Cowpens) Ketorolac (Toradol) Meclofenamate (Meclomen) Meloxicam (Mobic) Oxycodone/Acetaminophen (Percocet) Tramadol (Ultram) Anti-Anxiety Buspirone (Buspar) Anti-Convulsant Carbamazepine (Tegretol) Gabapentin (Neurontin) Topiramate (Topamax, Trokendi XL, Qudexy) Anti-Depressant and Antipsychotic Amitriptyline (Elavil) Bupropion (Wellbutrin) Citalopram (Celexa) Fluoxetine (Prozac) Sertraline (Zoloft) Venlafaxine (Effexor) Antiemetics Promethazine Reglan (Metoclopramide) Anti-Migraine Dihydroergotamine (DHE-45, Migranal) Eletriptan (Relpax) Naratriptan (Amerge) Rizatriptan (Maxalt) Sumatriptan (Imitrex, Sumavel) Blood Pressure Lisinopril (Zestril) Propranolol (Inderal) MABs Erenumab (Aimovig) Galcanezumab (Emgality) GEPANTS Ubrogepant (Ubrelvy) Botulinum Toxin Onabotulinum Toxin A (Botox) 6 treatments Muscle Relaxer Chlorzoxazone (Parafon Forte) Cyclobenzaprine (Flexeril) Supplements Magnesium Other Medications Prednisone Over the Counter Medications Acetaminophen (Tylenol) Acetaminophen/Aspirin/Caffeine (Excedrin, Goody s) Naproxen sodium (Aleve) Zoraida Rodarte APRN.UI ARCHITECT documented in this encounterGe[facility]12-07-2022 Miscellaneous Notes* Telephone Encounter - Dalia Lockwood - 04/21/2022 8:31 AM EST Physician: Lien Call from patient requesting refill. Please E-Scribe Last office visit 02/02/22 with Lien POWERS Next office visit 05/04/22 with Aster POWERS Requested Prescriptions Pending Prescriptions Disp Refills ondansetron (ZOFRAN) 4 mg tablet 20 tablet 11 Sig: Take 1 tablet by mouth once daily as needed (for nausea.). ubrogepant (UBRELVY) 50 mg tablet 10 tablet 5 Sig: Take 1 tablet at onset of migraine/headache. May repeat dose in 2 hours if needed. Do not takemore than 2 tablets in 24 hours. gabapentin (NEURONTIN) 100 mg capsule Sig: Take 4 capsules by mouth three times daily. propranolol ER (INDERAL LA) 60 mg 24 hr capsule 180 capsule 1 Sig: Take 1 capsule by mouth twice daily. [facility] documented in this encounterGe[facility]12-07-2022 Miscellaneous Notes* Telephone Encounter - Aarti Will LPN - 04/21/2022 7:54 AM EST Patient has been identified by name and date of : Yes Patient phones for refill(s): Requested Prescriptions Pending Prescriptions Disp Refills hydroCHLOROthiazide (HYDRODIURIL, ESIDRIX) 12.5 mg capsule 90 capsule 0 Sig: Take 1 capsule by mouth once daily. Date of last office visit in primary care: 04/12/22 Last 2 Encounter Wt Readings: Date: Wt: 04/12/2022 113.9 kg (251 lb) 02/02/2022 113.9 kg (251 lb) Previous labs/tests for medication: Blood Pressure: BUN (mg/dL) Date Value 01/22/2022 9 05/25/2021 10 Sodium (mmol/L) Date Value 01/22/2022 137 05/25/2021 138 Last 1 Encounter BP Readings: Date: BP: 04/12/2022 152/82 Thank you. Aarti Will LPN documented in this encounterGe[facility]12-07-2022 Miscellaneous Notes* Telephone Encounter - Aarti Will LPN - 04/21/2022 7:51 AM EST Patient has been identified by name and date of : Yes Patient phones for refill(s): Requested Prescriptions Pending Prescriptions Disp Refills lisinopril (ZESTRIL, PRINIVIL) 10 mg tablet 90 tablet 3 Sig: Take 1 tablet by mouth once daily. Date of last office visit in primary care: 04/12/22 Last 2 Encounter Wt Readings: Date: Wt: 04/12/2022 113.9 kg (251 lb) 02/02/2022 113.9 kg (251 lb) Previous labs/tests for medication: Blood Pressure: BUN (mg/dL) Date Value 01/22/2022 9 05/25/2021 10 Sodium (mmol/L) Date Value 01/22/2022 137 05/25/2021 138 Last 1 Encounter BP Readings: Date: BP: 04/12/2022 152/82 Thank you. Aarti Will LPN documented in this encounterGe[facility]11-28-2022 History of Present illness Narrative* Albania Morales, RT(R) - 04/12/2022 7:40 PM EST Radiology Service Progress Note PATIENT NAME: Maria Elena Garay DATE OF SERVICE: April 12, 2022 TIME: 7:42 PM PATIENT IDENTITY VERIFICATION COMPLETED USING TWO (2) IDENTIFIERS: Name and Date of confirmedby patient verbally. FALL SCREENING: Has the patient had 2 falls in the last year or 1 fall with injury or currently using an Ambulatory Assistive Device (Walker, Cane, Wheelchair, Crutches, etc.)? No PATIENT GENDER DATA: Female. status: : No status: NO. PATIENT RELEVANT IMPLANT DATA REVIEWED: Not Applicable RADIOLOGY DEPARTMENT: General X-ray: Exam(s) Completed: Lower Extremity X- Ray(s): Foot, Bilateral and Wt. Bearing PERIPHERAL IV DATA: Not applicable SIGNED BY: RT Avi(R) April 12, 2022 7:42 PM documented in this encounterGe[facility]11-28-2022 History of Present illness Narrative* Jes Fuentes MD - 04/12/2022 7:18 PM EST Patient presents with: Pain (foot): Right for awhile about 3 months is on her feet a lot. Starting in her left foot now. HPI: Patient presents today for office visit for acute visit. Her right foot is much worse than the left. Getting worse Is worse when on her feet all day. Primarily over the heel No hot or red or swollen. No numbness. Can burn at times. Can barely walk first steps in the am and when she is resting. Worse if bare foot. Has uses insoles. Used a boot she can wear at night. Has used ice and heat. MEDICATIONS: Current Outpatient Medications Medication Sig venlafaxine ER (EFFEXOR XR) 150 mg 24 hr capsule Take 1 capsule by mouth once daily. budesonide-formoterol (SYMBICORT) 80-4.5 mcg/actuation inhaler Inhale 2 Puffs as instructed twice daily. naratriptan (AMERGE) 2.5 mg tablet Take 1 tablet by mouth as needed. ubrogepant (UBRELVY) 50 mg tablet Take 1 tablet at onset of migraine/headache. May repeat dose in 2hours if needed. Do not take more than 2 tablets in 24 hours. hydroCHLOROthiazide 12.5 mg capsule Take 1 capsule by mouth once daily. gabapentin (NEURONTIN) 100 mg capsule TAKE 4 CAPSULES BY MOUTH 3 TIMES A DAY propranolol ER (INDERAL LA) 60 mg 24 hr capsule TAKE 1 CAPSULE BY MOUTH TWICE A DAY lisinopril (ZESTRIL, PRINIVIL) 10 mg tablet Take 1 tablet by mouth once daily. Cholecalciferol, Vitamin D3, 125 mcg (5,000 unit) cap Take 1 capsule by mouth once daily. cyclobenzaprine (FLEXERIL) 10 mg tablet Take 0.5-1 tablets by mouth three times daily as needed. naproxen (NAPROSYN) 500 mg tablet Take 1 tablet by mouth twice daily as needed (for pain/inflammation). Take with food. gabapentin (NEURONTIN) 100 mg capsule Take 400 mg by mouth three times daily. ondansetron (ZOFRAN) 4 mg tablet Take 1 tablet by mouth once daily as needed (for nausea.). albuterol HFA (PROVENTIL HFA, VENTOLIN HFA) 90 mcg/actuation inhaler INHALE 2 PUFFS BY MOUTH INSTRUCTED EVERY 4 HOURS NEEDED FOR WHEEZING/SHORTNESS OF BREATH. albuterol (PROVENTIL) 2.5 mg /3 mL (0.083 %) nebulizer solution Use 3 mL via nebulizer every 4 hours as needed. Use over 5-15minutes. chlorzoxazone (PARAFON FORTE DSC) 500 mg tablet Take 1 tablet by mouth four times daily as needed. Do not take Flexeril or any other muscle relaxer when taking this medication. Leg Brace (YAO KNEE BRACE) misc Sleeve brace left knee Current Facility-Administered Medications Medication Dose Route Frequency onabotulinum toxin type A 200 Units injection (BOTOX) 200 Units INTRADERMAL q 3 MONTHS ALLERGIES: ALLERGIES Allergen Reactions Compazine [Prochlor* Other: See Comments Akathisia with IV Compazine Reglan [Metoclopram* Other: See Comments Akathisia with IV Reglan Seasonal Allergies Other: See Comments PAST MEDICAL HISTORY Diagnosis Date Abnormal Pap smear of cervix ASCUS Acute appendicitis 04/2021 Allergic rhinitis, cause unspecified Anxiety 03/17/2010 buspar Asthma Concussion 2008 Dysmenorrhea Excessive or frequent menstruation Heavy periods Mental disorder Migraine, unspecified, with intractable migraine, so stated, without mention of status migrainosus Migraine Ovarian cyst resolved Pain in joint, pelvic region and thigh 07/29/2014 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 Oscar [place] SURG CHOLECYSTECTOMY W/CHOLANGIOGRAPHY 02/14/2013 SALPINGECTOMY Bilateral 05/31/2019 B/L Salpingectomy at [facility]-Dr. Moore TONSILLECTOMY HX 03/2018 [facility]-Dr. James TUBAL LIGATION HX 01/13/2016 filshie clips FAMILY HISTORY Problem Relation Age of Onset Cancer Mother thyroid, skin. - precancerous cervical cells on pap smear Hypertension Mother Breast Cancer Maternal Grandmother Hypertension Maternal Grandmother Asthma Maternal Grandmother Heart Maternal Grandfather Ischemic Heart Disease Maternal Grandfather stomach, ovarian. Ovarian cancer Other Great Grandmother Social History Tobacco Use Smoking status: Never Smokeless tobacco: Never Tobacco comments: Pt vapes Vaping Use Vaping Use: Former Substances: Nicotine, Flavoring Substance Use Topics Alcohol use: Yes Comment: 1 nightout every 2 months- 2-3 drinks-None since Drug use: No Reviewed current medications, allergies, past medical history, surgical history, family history andsocial history today. REVIEW OF SYSTEMS All other reviewed and negative other than HPI. VITALS: BP 152/82 Pulse 98 Wt 113.9 kg (251 lb) LMP 07/07/2020 (Exact Date) SpO2 98% BMI 43.08 kg/m Last 4 Encounter Wt Readings: Date: Wt: 04/12/2022 113.9 kg (251 lb) 02/02/2022 113.9 kg (251 lb) 01/22/2022 112.9 kg (249 lb) 11/25/2021 111.5 kg (245 lb 12.8 oz) PHYSICAL EXAMINATION: General appearance: Well appearing, alert, in no acute distress, well-hydrated, well nourished. Feet:Shoes and socks removed, No deformities, ulcers, calluses, normal distal pulses, and tender over the plantar fascia. No masses. ASSESSMENT/PLAN: 1. Foot pain, bilateral - ICD9: 729.5, ICD10: M79.671, M79.672 (primary diagnosis) - stretches, ice and prednisone. Red flags for re-assessment reviewed with patient in detail. Discussed risks and benefits of new medication with the patient. Advised them to call if any side effects or questions. 2. Plantar fasciitis - ICD9: 728.71, ICD10: M72.2 Jes Fuentes MD documented [facility] Miscellaneous Notes* Telephone Encounter - Ambika Montelongo Ma - 02/22/2022 4:52 PM EDT Pt notified of results via Shipeyt. Ambika Montelongo Ma * Telephone Encounter - Jes Fuentes MD - 02/22/2022 4:45 PM EDT Scan is overall ok. Keep follow up to go over it. documented in this encounterGe[facility]09-20-2022 History of Present illness Narrative* Whitney Emmanuel MD - 02/02/2022 2:30 PM EDT Images from the original note were not included. [facility] [place] [address] [place] [address] BOTOX PREEMPT PROTOCOL Diagnosis: Chronic Migraine / Chronic Daily Headache Follow-Up Onabotulinum Toxin A (BotoxTM) for Migraine Indication: Chronic Intractable Migraine Treatment #: 7 Referral Expiration: 09/18/2022 Prior to the initiation of the FIRST treatment with Onabotulinum Toxin A, the patient reported the following average headache frequency over the past 3 MONTHS: Number of moderate-severe migraine days/month: 30 (daily) Number of mild migraine days/month: 0 Number of headache free days/month: 0 (0 headache-free hours) Migraine severity: 8/10 After treatment with Onabotulinum Toxin A: Number of moderate-severe migraine days/month: 4 Number of mild migraine days/month: 19 Number of headache free days/month: 7 (168 headache-free hours) Migraine severity: 5/10 Patient reduction in overall migraine days: Yes Patient reduction in moderate-severe migraine days: Yes Patient reduction of headache hours by 100 hours or more: Yes (reduction of 168 hours) Individual has obtained clinical benefit deemed significant by individual or prescriber (Y/N): Yes Side effects: none Wearing off: Yes - 9 weeks after treatment HEADACHE SCORES: Headache Questions 11/06/2021 02/01/2022 02/02/2022 ER visits since last office visit: - 1 - Hospital stays since last office visit - 0 - Limited ADLs in the last month: - 10 - Days missed from work or school in the last month: - 3 - Days headache pain free in the last month: - 5 - Days per month with ALL of the following symptoms - decreased productivity, light sensitivity and nausea: - 4 - Initial improvement of headache after botox injection at last visit: - No change - PRN medication usage in the last month: - 8 - Patient impression of improvement since last visit: Minimally worse No change No change HIT-6 11/06/2021 02/01/2022 02/02/2022 HIT-6 - - - HIT-6 64 (Severe impact) 64 (Severe impact) 64 (Severe impact) MYLA - 2/7 SCORES 11/06/2021 02/01/2022 02/01/2022 MYLA-2 Score 2 2 2 MYLA-7 Score - - - Migraine Specific QOL - Higher scores indicate better HRQL 11/06/2021 02/01/2022 02/02/2022 Role Function-Restrictive Transformed Score (range: 0-100) 60 57.14 57.14 Role Function-Preventive Transformed Score (range: 0-100) 60 65 65 Emotional Function Transformed Score (range: 0-100) 60 60 60 PHQ-9 02/01/2022 02/01/2022 02/02/2022 Score 9 9 9 BP 141/100 Pulse 106 Ht 162.6 cm (5' 4) Wt 113.9 kg (251 lb) LMP 07/07/2020 (Exact Date) BMI 43.08 kg/m Patient name: Maria Elena Garay : 1990 ALLERGIES Allergen Reactions Compazine [Prochlor* Other: See Comments Akathisia with IV Compazine Reglan [Metoclopram* Other: See Comments Akathisia with IV Reglan Seasonal Allergies Other: See Comments EXAM: Vital Signs: BP 141/100 Pulse 106 Ht 162.6 cm (5' 4) Wt 113.9 kg (251 lb) LMP 07/07/2020 (Exact Date) BMI 43.08 kg/m GENERAL: well appearing, in no acute distress, alert HEAD: Normocephalic/atraumatic. NEUROLOGICAL: Mental Status: Alert, oriented to person, place and time, Follows commands, and Speech fluent and appropriate. Cranial Nerves: face symmetric, no dysarthria, hearing grossly intact Motor: moves all extremities equally UNIVERSAL PROTOCOL / SAFETY CHECKLIST Procedure: Onabotulinum toxin A for migraine Informed Consent Consent Obtained: Written Phelps Protocol A moment to CARE was completed SIGN IN Personnel directly involved with the procedure wore the appropriate PPE Special Equipment: N/A Patient/Surrogate Stated/Verified: Patient name, Date of , Relevant allergies and Intended procedure TIME OUT Intended patient and procedure match the source document(s) Consent documented and matches the intended procedure No relevant labs, photos, and/or imaging studies were applicable for review. No correct side/site applicable for marking and visibility. No medications required for procedure. No fire risk assessment and interventions applicable. No implant(s) inserted. SIGN OUT No specimen collected. No instruments, equipment or retained foreign bodies applicable. Post-procedure follow-up management communicated and Plan of Care Visit completed when applicable Written Consent Obtained: Written Injection Sites Left (Units) Left (Sites) Right (Units) Right (Sites) TOTAL (Units) Obstetrics Nurse Practitioner 5 1 5 1 10 Procerus Units: 5 Sites: 1 5 Frontalis 10 2 10 2 20 Temporalis optional follow the pain 20 5 4 1 20 5 4 1 50 Occipitalis optional follow the pain 15 5 3 1 15 5 3 1 40 Cervical PSP 10 2 10 2 20 Trapezius optional follow the pain 15 12.5 3 2 15 12.5 3 2 55 Total Units used: 200 Total Units wasted: 0 Prior Therapies Duration of Use Dose Side effect Analgesic Butalbital/acetaminophen/caffeine (Fioricet) Diclofenac (Voltaren, Cataflam, Cambia) Hydrocodone/Acetaminophen (Vicodin, Cowpens) Ketorolac (Toradol) Meclofenamate (Meclomen) Meloxicam (Mobic) Oxycodone/Acetaminophen (Percocet) Tramadol (Ultram) Anti-Anxiety Buspirone (Buspar) Anti-Convulsant Carbamazepine (Tegretol) Gabapentin (Neurontin) Topiramate (Topamax, Trokendi XL, Qudexy) Anti-Depressant and Antipsychotic Amitriptyline (Elavil) Bupropion (Wellbutrin) Citalopram (Celexa) Fluoxetine (Prozac) Sertraline (Zoloft) Venlafaxine (Effexor) Antiemetics Promethazine Reglan (Metoclopramide) Anti-Migraine Dihydroergotamine (DHE-45, Migranal) Eletriptan (Relpax) Naratriptan (Amerge) Rizatriptan (Maxalt) Sumatriptan (Imitrex, Sumavel) Blood Pressure Lisinopril (Zestril) Propranolol (Inderal) MABs Erenumab (Aimovig) Galcanezumab (Emgality) GEPANTS Ubrogepant (Ubrelvy) Botulinum Toxin Onabotulinum Toxin A (Botox) 6 treatments Muscle Relaxer Chlorzoxazone (Parafon Forte) Cyclobenzaprine (Flexeril) Supplements Magnesium Other Medications Prednisone Over the Counter Medications Acetaminophen (Tylenol) Acetaminophen/Aspirin/Caffeine (Excedrin, Goody s) Naproxen sodium (Aleve) IMPRESSION Chronic Migraine PLAN --> Follow-up in 3 months for next Botox injection Whitney Emmanuel MD Pager: [phone] 02/02/2022 documented in this encounterGe[facility]09-12-2022 Miscellaneous Notes* Telephone Encounter - Lori Pineda Ma - 01/25/2022 10:15 AM EDT Pt informed, verbalized understanding. Lori Pineda Ma * Telephone Encounter - Jes Fuentes MD - 01/25/2022 9:46 AM EDT Labs are ok, except white count is up. Call if any signs if infection. Recheck cbc in two weeks. documented in this encounterGe[facility]09-09-2022 History of Present illness Narrative* Jessica Schilling RT(R) - 01/22/2022 3:20 PM EDT Radiology Service Progress Note PATIENT NAME: Maria Elena Garay DATE OF SERVICE: January 22, 2022 TIME: 3:17 PM PATIENT IDENTITY VERIFICATION COMPLETED USING TWO (2) IDENTIFIERS: Name and Date of confirmedby patient verbally. FALL SCREENING: Has the patient had 2 falls in the last year or 1 fall with injury or currently using an Ambulatory Assistive Device (Walker, Cane, Wheelchair, Crutches, etc.)? No PATIENT GENDER DATA: Female. status: : No status: NO. PATIENT RELEVANT IMPLANT DATA REVIEWED: Yes RADIOLOGY DEPARTMENT: General X-ray: Exam(s) Completed: Chest X-Ray PERIPHERAL IV DATA: Not applicable SIGNED BY: RT Phuong(Miguelito) January 22, 2022 3:17 PM documented in this encounterGe[facility]08-08-2022 Miscellaneous Notes* Telephone Encounter - Ailyn Juarez LPN - 12/21/2021 5:09 PM EDT Called and spoke with patient. Declines to schedule while on phone with nurse because they are between insurance. Advised patient that after 5:00 so can't speak with financial counselor this evening but should call back tomorrow morning and speak with them. Needs to be seen for her symptoms this isnot something anyone can take care of over the phone. Advised also that if having chest pain needs to go to ER. Patient verbalizes understanding. * Telephone Encounter - Ofelia Delaney APRN.CNP - 12/21/2021 4:56 PM EDT Needs appt. To ER if sustained and symptomatic. Ofelia Delaney APRN.MARISELA * Telephone Encounter - Dyana Hanley RN - 12/21/2021 4:38 PM EDT Protocol recommends: See provider within 3 days. No appt made at this time. Please would like advise. Please contact patient and advise. Thank you. Reason for Disposition [1] Palpitations AND [2] no improvement after using CARE ADVICE Answer Assessment - Initial Assessment Questions 1. DESCRIPTION: Patient reports over the last couple of weeks she has noted her resting heart rate on her fitbit to be 100-115. And experiencing palpitations at times. She has double checked pulse manually as well. Also experiences intermittent dizziness and lightheadedness lasting about 5 minutes.Has had this happen about 4-5 times today especially after getting up and exerting herself such as letting dog outside. Reports she is on BP meds and migraine medications. Does not smoke. Drinks one mountain dew daily. 2. ONSET: a couple weeks ago 3. DURATION: fast heart rate lasts constantly. Lightheadedness and dizziness lasting about 5 minutes. 4. PATTERN : comes and goes 5. TAP: not completed 6. HEART RATE: 100-115 7. RECURRENT SYMPTOM: no 8. CAUSE: Patient not sure. 9. CARDIAC HISTORY: HTN, asthma, anxiety. Heart murmur when 3 years old. 10. OTHER SYMPTOMS: Denies shortness of breath, chest pain or sweating. 11. : no Protocols used: Heart Rate and Heartbeat [id number] documented in this encounterGe[facility]08-08-2022 Miscellaneous Notes* Telephone Encounter - Dyana Hanley RN - 12/21/2021 4:53 PM EDT Done. See triage encounter 12/21/21. Dyana Hanley, RN * Telephone Encounter - Dhara Pretty Ma - 12/18/2021 8:37 AM EDT Can we please contact pt and triage. She may need to go to ED? Dhara Pretty Ma documented in this encounterGe[facility]07-19-2022 Miscellaneous Notes* Telephone Encounter - Ton Pham Ma - 12/01/2021 9:27 AM EDT Mychart sent. * Telephone Encounter - Mouna Naqvi LPN - 11/25/2021 7:25 PM EDT Patient telephoned. Unable to leave message due to mailbox being full. Mouna Naqvi LPN * Telephone Encounter - Soraida Gardner APRN.CNP - 11/25/2021 7:17 PM EDT Please call patient and let her know her back xray shows mild left sided curvature but no acute findings. Continue with plan as discussed in the office. Thanks, Soraida Gardner APRN.MARISELA documented in this encounterGe[facility]07-13-2022 History of Present illness Narrative* Armando Mcdaniel RT(R) - 11/25/2021 10:50 AM EDT Radiology Service Progress Note PATIENT NAME: Maria Elena Garay DATE OF SERVICE: November 25, 2021 TIME: 11:16 AM PATIENT IDENTITY VERIFICATION COMPLETED USING TWO (2) IDENTIFIERS: Name and Date of confirmedby patient verbally. FALL SCREENING: Has the patient had 2 falls in the last year or 1 fall with injury or currently using an Ambulatory Assistive Device (Walker, Cane, Wheelchair, Crutches, etc.)? No PATIENT GENDER DATA: Female. status: : No status: NO. PATIENT RELEVANT IMPLANT DATA REVIEWED: Not Applicable RADIOLOGY DEPARTMENT: General X-ray: Exam(s) Completed: Spine X-Ray(s): Lumbar AP / LAT / L5-S1 PERIPHERAL IV DATA: Not applicable SIGNED BY: RT Bernie(R) November 25, 2021 11:16 AM documented in this encounterGe[facility]07-13-2022 History of Present illness Narrative* Soraida Gardner APRN.UI ARCHITECT - 11/25/2021 10:11 AM EDT 11/25/2021 Patient presents with: Pain, Back SUBJECTIVE: This is a 31 year old that is here today for Above Complaints. ONSET: years ago LOCATION: low back DURATION: constant CHARACTERISTICS: aching, sharp AGGRAVATING FEATURES: picking up stuff, bending over, touching it ALLEVIATING FEATURES: tried heat, flexeril, ibuprofen, tylenol RADIATION: down right leg Reports she has fallen off horses in her teens but never had any specific injuries Denies hx of specific injury or surgery to back, extremity numbness, tingling, weakness, saddle anaesthesia, urinary or bowel incontinence or inability PAST MEDICAL HISTORY Diagnosis Date Abnormal Pap smear of cervix ASCUS Acute appendicitis 04/2021 Allergic rhinitis, cause unspecified Anxiety 03/17/2010 buspar Asthma Concussion 2007 Dysmenorrhea Excessive or frequent menstruation Heavy periods Mental disorder Migraine, unspecified, with intractable migraine, so stated, without mention of status migrainosus Migraine Ovarian cyst resolved Pain in joint, pelvic region and thigh 07/29/2014 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 venlafaxine ER (EFFEXOR XR) 150 mg 24 hr capsule Take 1 capsule by mouth once daily. predniSONE 10 mg tablet pack Take by mouth once daily. (Patient not taking: Reported on 10/27/2021 ) budesonide-formoterol (SYMBICORT) 80-4.5 mcg/actuation inhaler Inhale 2 Puffs as instructed twice daily. ondansetron (ZOFRAN) 4 mg tablet Take 1 tablet by mouth once daily as needed (for nausea.). naratriptan (AMERGE) 2.5 mg tablet Take 1 tablet by mouth as needed. ubrogepant (UBRELVY) 50 mg tablet Take 1 tablet at onset of migraine/headache. May repeat dose in 2hours if needed. Do not take more than 2 tablets in 24 hours. hydroCHLOROthiazide 12.5 mg capsule Take 1 capsule by mouth once daily. gabapentin (NEURONTIN) 100 mg capsule TAKE 4 CAPSULES BY MOUTH 3 TIMES A DAY propranolol ER (INDERAL LA) 60 mg 24 hr capsule TAKE 1 CAPSULE BY MOUTH TWICE A DAY albuterol HFA (PROVENTIL HFA, VENTOLIN HFA) 90 mcg/actuation inhaler INHALE 2 PUFFS BY MOUTH INSTRUCTED EVERY 4 HOURS NEEDED FOR WHEEZING/SHORTNESS OF BREATH. albuterol (PROVENTIL) 2.5 mg /3 mL (0.083 %) nebulizer solution Use 3 mL via nebulizer every 4 hours as needed. Use over 5-15minutes. chlorzoxazone (PARAFON FORTE DSC) 500 mg tablet Take 1 tablet by mouth four times daily as needed. Do not take Flexeril or any other muscle relaxer when taking this medication. lisinopril (ZESTRIL, PRINIVIL) 10 mg tablet Take 1 tablet by mouth once daily. Cholecalciferol, Vitamin D3, 125 mcg (5,000 unit) cap Take 1 capsule by mouth once daily. meloxicam (MOBIC) 15 mg tablet Take 1 tablet by mouth once daily. With food. Leg Brace (YAO KNEE BRACE) misc Sleeve brace left knee cyclobenzaprine (FLEXERIL) 10 mg tablet Take 0.5-1 tablets by mouth three times daily as needed. SUMAtriptan (IMITREX) 100 mg tablet Take 1 tablet by mouth as needed. Current Facility-Administered Medications Medication Dose Route Frequency onabotulinum toxin type A 200 Units injection (BOTOX) 200 Units INTRADERMAL q 3 MONTHS Medications and allergies reviewed by this provider. SOCIAL HISTORY Social History Tobacco Use Smoking status: Never Smoker Smokeless tobacco: Never Used Tobacco comment: Pt vapes Vaping Use Vaping Use: Former Substances: Nicotine, Flavoring Substance Use Topics Alcohol use: Yes Comment: 1 nightout every 2 months- 2-3 drinks-None since Drug use: No REVIEW OF SYSTEMS All other reviewed and negative other than HPI. OBJECTIVE: BP 128/82 Pulse 76 Resp 18 Wt 111.5 kg (245 lb 12.8 oz) LMP 07/07/2020 (Exact Date) SpO2 99% BMI 42.19 kg/m . Vital signs reviewed by this provider. APPEARANCE Well appearing, alert, in no acute distress, well-hydrated, well nourished. NECK FROM without pain BACK: TTP low midline which radiates slightly to the right. FROM- patient notes some discomfort with flexion, side bending and rotation to the left. Negative SLR EXTREMITIES Extremities normal, No deformities, No skin discoloration and No edema NEURO Awake, alert and oriented x 3, Reflexes symmetrical, Normal gait, No involuntary motions. andnegative findings: muscle tone normal, muscle strength normal, reflexes normal and symmetric, plantar response downgoing bilaterally SKIN Skin color, texture, turgor normal, no suspicious rashes or lesions to exposed skin COVID-19 VACCINE(1) Never done PNEUMOCOCCAL(1 - PCV) Never done SPIROMETRY Never done HEPATITIS C SCREENING Never done BP CONTROLLED (<130/80) Never done HPV TESTING due on 2020 INFLUENZA(1) due on 01/14/2022 DEPRESSION SCREENING due on 11/06/2022 ANNUAL PCP TEAM CHRONIC DISEASE VISIT due on 11/25/2022 PAP TESTING due on 03/21/2024 DTAP,TDAP,TD(11 - Td or Tdap) due on 09/23/2025 HIV SCREENING Completed ASSESSMENT/PLAN: 1. Chronic right-sided low back pain with right-sided sciatica - ICD9: 724.2, 724.3, 338.29, ICD10:M54.41, G89.29 Chronic low back pain - no red flag symptoms or exam findings - red flag symptoms discussed, verbalizes understanding - Ice for localized tenderness - Warm moist heat for 20 min three times a day - NSAIDS- see orders - PT consult - Xrays- see orders - Patient given instructions use of medications as ordered, intermittent rest, back care exercise program, weight loss, improved posture, proper lifting techniques, intermittent use of heat and avoiding sleeping on a heating pad - NAPROXEN 500 MG TABLET - CONSULT TO PHYSICAL THERAPY - XR LUMBAR GENERAL 3V AP/LAT/L5-S1 - follow-up with PCP if symptoms fail to improve Soraida Gardner APRN.UI ARCHITECT Prescription instructions reviewed with patient as applicable. Patient advised if symptoms do not improve or if symptoms worsen sooner, to contact their primary care physician. Potential red flag symptoms discussed with the patient. Reviewed appropriate action plan to take if red flag symptoms occur. Patient agreeable to treatment plan. documented in this encounterGe[facility]07-05-2022 Miscellaneous Notes* Telephone Encounter - Sadie Davis MA - 11/17/2021 3:45 PM EDT Patient notified of results. Sadie Davis MA * Telephone Encounter - Jes Fuentes MD - 11/17/2021 3:33 PM EDT Still ok. 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 Skin was broken & now is bruised. Vet clinic is trying to find info if dog is UTD on rabies shot. Pt's last tdap was 09/24/2015, does pt need another one? Please advise. Tamiko Dunn LPN documented in this encounterGe[facility]05-26-2022 Instructions* Patient Instructions* Elizabeth Rosario PA-C - 10/08/2021 6:33 PM EDT Tramadol as directed per prescription for pain being careful to limit to 1-2 doses a day unless it is more severe pain. Do not drive or operate dangerous machinery while on this medication. It may cause drowsiness or impair judgment and cause increased risk for falls. This medication may be habit forming if used regularly, and may cause drowsiness, so use caution. This medication may cause constipation so increase fiber and exercise if possible. Stimulant laxatives such as pericolace or Sennekot OTC may help if needed but should not be used over long periods. Rest the joint. Ice over next few days to help with pain and swelling. Elevate as often as possibleto reduce swelling and throbbing. Compression with an YAO wrap or elastic brace may feel more comfortable. With this injury I would recommend not bending the elbow to a full 90 degrees, 70 degrees will allow better circulation. Ice helps to break pain cycles. Moist helps muscles and ligaments to relax. Both may be effective. You may ice first for 10-15 minutes, then apply moist heat for 10-15 minutes every few hours as needed. The YAO wrap may help with swelling: it should be removed and reapplied every 6- 8h for comfort and circulation always starting at the lowest point and wrapping upward. If pain or swelling worsen, call the office. If pain is not steadily improving over the next two weeks, call the office. documented in this encounterGeorgetown [facility]05-26-2022 History of Present illness Narrative* Elizabeth Rosario PA-C - 10/08/2021 6:16 PM EDT 31 year old female with c/o Horses, rolling round daxa of hay Jumped on bale on tomach, rolled away and put elbow out with severe pop and terrible pain. [facility] records from [facility] reviewed, x-ray report indicating no evidence of fracture per radiologist. Patient was given sling and small quantity of pain medication. 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 She has been icing, using Yao wrap which she has placed locally around the elbow rather than from distal to proximal. She has had increased swelling distally down into the hand. Hurts to hold her elbow at 90 degrees so she holds it slightly open. HISTORIES FAMILY HISTORY Problem Relation Age of Onset Cancer Mother thyroid, skin. - precancerous cervical cells on pap smear Hypertension Mother Breast Cancer Maternal Grandmother Hypertension Maternal Grandmother Asthma Maternal Grandmother Heart Maternal Grandfather Ischemic Heart Disease Maternal Grandfather stomach, ovarian. 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 Oscar L[place]IS SURG CHOLECYSTECTOMY W/CHOLANGIOGRAPHY 02/14/2013 SALPINGECTOMY Bilateral 05/31/2019 B/L Salpingectomy at [facility]-Dr. Moore TONSILLECTOMY HX 03/2018 [facility]-Dr. James TUBAL LIGATION HX 01/13/2016 filshie clips Social History Tobacco Use Smoking status: Never Smoker Smokeless tobacco: Never Used Tobacco comment: Pt vapes Vaping Use Vaping Use: Former Substances: Nicotine, Flavoring Substance Use Topics Alcohol use: Yes Comment: 1 nightout every 2 months- 2-3 drinks-None since Drug use: No ACTIVE PROBLEM LIST Anxiety Asthma Thyromegaly Obesity, Class II, Bmi 35-39.9 Thrombocytosis Neutropenia (Hcc) Hypertension, Essential Migraine Without Aura, Intractable, With Status Migrainosus Patellofemoral Arthralgia of Right Knee Current Outpatient Medications Medication Sig Dispense Refill gabapentin (NEURONTIN) 100 mg capsule Take 400 mg by mouth three times daily. venlafaxine ER (EFFEXOR XR) 150 mg 24 hr capsule Take 1 capsule by mouth once daily. 90 capsule 3 predniSONE 10 mg tablet pack Take by mouth once daily. budesonide-formoterol (SYMBICORT) 80-4.5 mcg/actuation inhaler Inhale 2 Puffs as instructed twice daily. oxyCODONE-acetaminophen (PERCOCET) 5-325 mg tablet Take 1 tablet by mouth every 4 hours as needed. 30 tablet 0 ondansetron (ZOFRAN) 4 mg tablet Take 1 tablet by mouth once daily as needed (for nausea.). 20 tablet 11 naratriptan (AMERGE) 2.5 mg tablet Take 1 tablet by mouth as needed. 30 tablet 5 ubrogepant (UBRELVY) 50 mg tablet Take 1 tablet at onset of migraine/headache. May repeat dose in 2hours if needed. Do not take more than 2 tablets in 24 hours. 10 tablet 5 hydroCHLOROthiazide 12.5 mg capsule Take 1 capsule by mouth once daily. 90 capsule 0 gabapentin (NEURONTIN) 100 mg capsule TAKE 4 CAPSULES BY MOUTH 3 TIMES A DAY 1080 capsule 1 propranolol ER (INDERAL LA) 60 mg 24 hr capsule TAKE 1 CAPSULE BY MOUTH TWICE A DAY 180 capsule 1 albuterol HFA (PROVENTIL HFA, VENTOLIN HFA) 90 mcg/actuation inhaler INHALE 2 PUFFS BY MOUTH INSTRUCTED EVERY 4 HOURS NEEDED FOR WHEEZING/SHORTNESS OF BREATH. 1 Each 5 albuterol (PROVENTIL) 2.5 mg /3 mL (0.083 %) nebulizer solution Use 3 mL via nebulizer every 4 hours as needed. Use over 5-15minutes. 1 Package 0 chlorzoxazone (PARAFON FORTE DSC) 500 mg tablet Take 1 tablet by mouth four times daily as needed. Do not take Flexeril or any other muscle relaxer when taking this medication. 20 tablet 2 lisinopril (ZESTRIL, PRINIVIL) 10 mg tablet Take 1 tablet by mouth once daily. 90 tablet 3 Cholecalciferol, Vitamin D3, 125 mcg (5,000 unit) cap Take 1 capsule by mouth once daily. meloxicam (MOBIC) 15 mg tablet Take 1 tablet by mouth once daily. With food. 30 tablet 5 Leg Brace (YAO KNEE BRACE) misc Sleeve brace left knee 1 Each 0 cyclobenzaprine (FLEXERIL) 10 mg tablet Take 0.5-1 tablets by mouth three times daily as needed. 20tablet 0 SUMAtriptan (IMITREX) 100 mg tablet Take 1 tablet by mouth as needed. 12 tablet 3 Current Facility-Administered Medications Medication Dose Route Frequency Provider Last Rate Last Admin onabotulinum toxin type A 200 Units injection (BOTOX) 200 Units INTRADERMAL q 3 MONTHS Moose Barnes, 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CH[employer] 200 Units at 04/08/21 0000 COVID-19 VACCINE(1) Never done PNEUMOCOCCAL(1 - PCV) Never done SPIROMETRY Never done HEPATITIS C SCREENING Never done BP CONTROLLED (<130/80) Never done HPV TESTING due on 2020 EXAM: BP 128/76 Pulse 109 Wt 111.1 kg (245 lb) LMP 07/07/2020 (Exact Date) SpO2 99% BMI 42.05 kg/m Pleasant overweight adult woman in no acute distress. Alert and oriented all spheres. Normal affectand cognition. Speech normal. No deficits to learning or comprehension. Skin warm, dry, pink to lips and nailbeds. Normal turgor. Respirations regular and unlabored. Right forearm appears swollen from distal upper arm to hand with imprint of Yao wrap evident. She does have a doughy feel with slight mounding of tissue over the pronator teres, slight bunching when she makes a fist and twists the wrist suggesting possible tear. She is nontender in the distal forearm. She is able to supinate and pronate with little discomfort. Extension of the wrist is painful asis external rotation. Extrem: no clubbing or cyanosis. Edema: none. Extremities are warm and pink with prompt capillary refill. ASSESSMENT/PLAN: 1. Sprain of right elbow, subsequent encounter - ICD9: V58.89, 841.9, ICD10: S53.401D Possible tear over the pronator carries no no overt deficit in range of motion. Patient is in significant pain despite vxsi-lru-tiocner medications with Tylenol, Mobic, home Rx with Flexeril. States she does not take this very often and has not recently. Will prescribe short course with tramadol with cautions reviewed: Must use [id number] medication first without improvement followed by use of tramadol, minimal use, only for extreme discomfort,cannot be shared with others. She understands these things and will follow-up as needed. Declined work excuse but let me know if she needs something. Demonstrated proper application of Yao wrap from distal to proximal and emphasized need to unwrap and rewrap 2-3 times a day for circulation and monitor for increased swelling, color changes distal fingertips which should be reported. - TRAMADOL 50 MG TABLET Elizabeth Rosario PA-C documented in this encounterGe[facility]04-29-[facility]22 History of Present illness Narrative* Jes Fuentes MD - 09/11/2021 11:45 AM EDT Patient presents with: Follow Up: med change effexor increase HPI: Patient presents today for office visit for follow up. At previous ov adjusted meds. Is seeing dentist today. We had stopped zoloft and increased effexor No major side effects. Sleeping well. No suicidal ideation. No changes with headaches. Teeth are improving. Thyroid us was ok. Having pain in her forehead area. No definite sinus issues. Not the worse headache today. Was worse yesterday. Red flags for re-assessment reviewed with patient in detail. No new neuro issues. Consider something like mucinex prn. Follow up with headache clinic. See last ov: Is on multiple meds from the headache department. Complains of depression. Has been feeling more down. Has a lot of stressful issues. Has a lot of stress. Has been feeling very down. Has had some suicidal thoughts but none today. Has three children that keeps her from thinking she would ever do that. Has a so-so support system. Is on effexor for her migraines. Is on zoloft at a tiny dose but does not feel any effects. We discussed that it may not help. Complains of dental infection. Had a partial root canal. Did not finish completely due to cost. Want money up front to fix it. Has had issues starting a bout 10 days ago. Is lower left jaw. Some swelling. No fever No chills. Discussed Amparo Andrea dentist or Madhavi Hernández in [place] [facility]. Has a hx of hypertension. Has not been in to see Dr. Alejo who has retired in some time. No chest pain Did have an asthma exacerbation Now on symbicort which is improving things. bp is good. Has noted occasional palpitations. Offered to work it up with ekg and monitors etc. Wants to wait and see if med changes help. No dizziness. No syncope. Red flags for re-assessment reviewed with patient in detail. Had labs done in May. MEDICATIONS: Current Outpatient Medications Medication Sig gabapentin (NEURONTIN) 100 mg capsule Take 400 mg by mouth three times daily. venlafaxine ER (EFFEXOR XR) 150 mg 24 hr capsule Take 1 capsule by mouth once daily. predniSONE 10 mg tablet pack Take by mouth once daily. budesonide-formoterol (SYMBICORT) 80-4.5 mcg/actuation inhaler Inhale 2 Puffs as instructed twice daily. oxyCODONE-acetaminophen (PERCOCET) 5-325 mg tablet Take 1 tablet by mouth every 4 hours as needed. ondansetron (ZOFRAN) 4 mg tablet Take 1 tablet by mouth once daily as needed (for nausea.). naratriptan (AMERGE) 2.5 mg tablet Take 1 tablet by mouth as needed. ubrogepant (UBRELVY) 50 mg tablet Take 1 tablet at onset of migraine/headache. May repeat dose in 2hours if needed. Do not take more than 2 tablets in 24 hours. hydroCHLOROthiazide 12.5 mg capsule Take 1 capsule by mouth once daily. gabapentin (NEURONTIN) 100 mg capsule TAKE 4 CAPSULES BY MOUTH 3 TIMES A DAY propranolol ER (INDERAL LA) 60 mg 24 hr capsule TAKE 1 CAPSULE BY MOUTH TWICE A DAY albuterol HFA (PROVENTIL HFA, VENTOLIN HFA) 90 mcg/actuation inhaler INHALE 2 PUFFS BY MOUTH INSTRUCTED EVERY 4 HOURS NEEDED FOR WHEEZING/SHORTNESS OF BREATH. albuterol (PROVENTIL) 2.5 mg /3 mL (0.083 %) nebulizer solution Use 3 mL via nebulizer every 4 hours as needed. Use over 5-15minutes. chlorzoxazone (PARAFON FORTE DSC) 500 mg tablet Take 1 tablet by mouth four times daily as needed. Do not take Flexeril or any other muscle relaxer when taking this medication. lisinopril (ZESTRIL, PRINIVIL) 10 mg tablet Take 1 tablet by mouth once daily. Cholecalciferol, Vitamin D3, 125 mcg (5,000 unit) cap Take 1 capsule by mouth once daily. meloxicam (MOBIC) 15 mg tablet Take 1 tablet by mouth once daily. With food. Leg Brace (YAO KNEE BRACE) misc Sleeve brace left knee cyclobenzaprine (FLEXERIL) 10 mg tablet Take 0.5-1 tablets by mouth three times daily as needed. SUMAtriptan (IMITREX) 100 mg tablet Take 1 tablet by mouth as needed. Current Facility-Administered Medications Medication Dose Route Frequency onabotulinum toxin type A 200 Units injection (BOTOX) 200 Units INTRADERMAL q 3 MONTHS ALLERGIES: ALLERGIES Allergen Reactions Compazine [Prochlor* Other: See Comments Akathisia with IV Compazine Reglan [Metoclopram* Other: See Comments Akathisia with IV Reglan Seasonal Allergies Other: See Comments PAST MEDICAL HISTORY Diagnosis Date Abnormal Pap smear of cervix ASCUS Acute appendicitis 04/2021 Allergic rhinitis, cause unspecified Anxiety 03/17/2010 buspar Asthma Concussion 2007 Dysmenorrhea Excessive or frequent menstruation Heavy periods Mental disorder Migraine, unspecified, with intractable migraine, so stated, without mention of status migrainosus Migraine Ovarian cyst resolved Pain in joint, pelvic region and thigh 07/29/2014 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 Moore LAPSergei SURG CHOLECYSTECTOMY W/CHOLANGIOGRAPHY 02/14/2013 SALPINGECTOMY Bilateral 05/31/2019 B/L Salpingectomy at [facility]-Dr. Moore TONSILLECTOMY HX 03/2018 [facility]-Dr. James TUBAL LIGATION HX 01/13/2016 filshie clips FAMILY HISTORY Problem Relation Age of Onset Cancer Mother thyroid, skin. - precancerous cervical cells on pap smear Hypertension Mother Breast Cancer Maternal Grandmother Hypertension Maternal Grandmother Asthma Maternal Grandmother Heart Maternal Grandfather Ischemic Heart Disease Maternal Grandfather stomach, ovarian. Ovarian cancer Other Great Grandmother Social History Tobacco Use Smoking status: Never Smoker Smokeless tobacco: Never Used Tobacco comment: Pt vapes Vaping Use Vaping Use: Former Substances: Nicotine, Flavoring Substance Use Topics Alcohol use: Yes Comment: 1 nightout every 2 months- 2-3 drinks-None since Drug use: No Reviewed current medications, allergies, past medical history, surgical history, family history andsocial history today. REVIEW OF SYSTEMS All other reviewed and negative other than HPI. VITALS: BP 134/82 Pulse 84 Wt 110.2 kg (243 lb) LMP 07/07/2020 (Exact Date) BMI 41.71 kg/m Last 4 Encounter Wt Readings: Date: Wt: 09/11/2021 110.2 kg (243 lb) 08/17/2021 110.7 kg (244 lb) 07/21/2021 108.4 kg (239 lb) 05/27/2021 103.8 kg (228 lb 12.8 oz) PHYSICAL EXAMINATION: General appearance: Well appearing, alert, in no acute distress, well-hydrated, well nourished. Skin: Skin color, texture, turgor normal, no suspicious rashes or lesions Head: Normocephalic, no masses, lesions, tenderness or abnormalities Lungs: Lungs clear to auscultation. No wheezing, rhonchi, rales Heart: RRR without murmur, gallop, or rubs. No ectopy Abdomen: Normal abdominal exam, Abdomen soft, non-tender. Bowel sounds normal. No masses, organomegaly Extremities: No deformities, edema, skin discoloration, clubbing or cyanosis. Good capillary refill. Musculoskeletal: No joint swelling, deformity, or tenderness Peripheral pulses: Normal Neuro: Negative. PSYCH:Affect normal. Normal speech. Normal eye contact ASSESSMENT/PLAN: 1. Leukocytosis, unspecified type - ICD9: 288.60, ICD10: D72.829 (primary diagnosis) - recheck labs. - CBC + DIFF 2. Anxiety with depression - ICD9: 300.4, ICD10: F41.8 - continue meds. Call prn. - TSH BLD Jes Fuentes RTO in six months and prn. documented in this encounterGe[facility]04-28-2022 History of Present illness Narrative* Erica Mc RDMS - 09/10/2021 4:00 PM EDT Radiology Service Progress Note PATIENT NAME: Maria Elena Garay DATE OF SERVICE: September 10, 2021 TIME: 4:07 PM PATIENT IDENTITY VERIFICATION COMPLETED USING TWO (2) IDENTIFIERS: Name and Date of confirmedby patient verbally. FALL SCREENING: Has the patient had 2 falls in the last year or 1 fall with injury or currently using an Ambulatory Assistive Device (Walker, Cane, Wheelchair, Crutches, etc.)? No PATIENT GENDER DATA: Female. status: : No status: N/A PATIENT RELEVANT IMPLANT DATA REVIEWED: Not Applicable RADIOLOGY DEPARTMENT: Ultrasound PERIPHERAL IV DATA: Not applicable SIGNED BY: Erica Mc RDMS RVT September 10, 2021 4:07 PM documented in this encounterGe[facility]04-04-2022 History of Present illness Narrative* Jes Fuentes MD - 08/17/2021 9:33 AM EDT Patient presents with: Depression Dental Problem: possible infected tooth causing migraines to flare HPI: Patient presents today for office visit for acute visit. Is on multiple meds from the headache department. Complains of depression. Has been feeling more down. Has a lot of stressful issues. Has a lot of stress. Has been feeling very down. Has had some suicidal thoughts but none today. Has three children that keeps her from thinking she would ever do that. Has a so-so support system. Is on effexor for her migraines. Is on zoloft at a tiny dose but does not feel any effects. We discussed that it may not help. Complains of dental infection. Had a partial root canal. Did not finish completely due to cost. Want money up front to fix it. Has had issues starting a bout 10 days ago. Is lower left jaw. Some swelling. No fever No chills. Discussed Amparo Andrea dentist or Madhavi Hernández in [place] [facility]. Has a hx of hypertension. Has not been in to see Dr. Alejo who has retired in some time. No chest pain Did have an asthma exacerbation Now on symbicort which is improving things. bp is good. Has noted occasional palpitations. Offered to work it up with ekg and monitors etc. Wants to wait and see if med changes help. No dizziness. No syncope. Red flags for re-assessment reviewed with patient in detail. Had labs done in May. Component Latest Ref Rng & Units 05/25/2021 WBC 3.70 - 11.00 k/uL 15.19 (H) RBC 3.90 - 5.20 m/uL 5.41 (H) Hemoglobin 11.5 - 15.5 g/dL 14.2 Hematocrit 36.0 - 46.0 % 45.9 MCV 80.0 - 100.0 fL 84.8 MCH 26.0 - 34.0 pG 26.2 MCHC 30.5 - 36.0 g/dL 30.9 RDW-CV 11.5 - 15.0 % 13.7 Platelet Count 150 - 400 k/uL 415 (H) MPV 9.0 - 12.7 fL 10.4 Neut% % 69.0 Abs Neut (ANC) 1.45 - 7.50 k/uL 10.50 (H) Lymph% % 19.2 Abs Lymph 1.00 - 4.00 k/uL 2.91 [place]% % 5.9 Abs [place] <0.87 k/uL 0.89 (H) Eosin% % 5.3 Abs Eosin <0.46 k/uL 0.80 (H) Baso% % 0.6 Abs Baso <0.11 k/uL 0.09 Nucleated Reds 0 /100 WBC 0.0 Absolute nRBC <0.01 k/uL <0.01 Diff Type Auto Diff Glucose 74 - 99 mg/dL 92 BUN 7 - 21 mg/dL 10 Creatinine 0.58 - 0.96 mg/dL 0.66 Sodium 136 - 144 mmol/L 138 Potassium 3.7 - 5.1 mmol/L 4.3 Chloride 97 - 105 mmol/L 102 CO2 22 - 30 mmol/L 24 Anion Gap 9 - 18 mmol/L 12 Calcium 8.5 - 10.2 mg/dL 10.2 eGFR- >60 eGFR-All Other Races . >60 MEDICATIONS: Current Outpatient Medications Medication Sig gabapentin (NEURONTIN) 100 mg capsule Take 400 mg by mouth three times daily. budesonide-formoterol (SYMBICORT) 80-4.5 mcg/actuation inhaler Inhale 2 Puffs as instructed twice daily. ondansetron (ZOFRAN) 4 mg tablet Take 1 tablet by mouth once daily as needed (for nausea.). naratriptan (AMERGE) 2.5 mg tablet Take 1 tablet by mouth as needed. ubrogepant (UBRELVY) 50 mg tablet Take 1 tablet at onset of migraine/headache. May repeat dose in 2hours if needed. Do not take more than 2 tablets in 24 hours. hydroCHLOROthiazide 12.5 mg capsule Take 1 capsule by mouth once daily. propranolol ER (INDERAL LA) 60 mg 24 hr capsule TAKE 1 CAPSULE BY MOUTH TWICE A DAY albuterol HFA (PROVENTIL HFA, VENTOLIN HFA) 90 mcg/actuation inhaler INHALE 2 PUFFS BY MOUTH INSTRUCTED EVERY 4 HOURS NEEDED FOR WHEEZING/SHORTNESS OF BREATH. albuterol (PROVENTIL) 2.5 mg /3 mL (0.083 %) nebulizer solution Use 3 mL via nebulizer every 4 hours as needed. Use over 5-15minutes. chlorzoxazone (PARAFON FORTE DSC) 500 mg tablet Take 1 tablet by mouth four times daily as needed. Do not take Flexeril or any other muscle relaxer when taking this medication. lisinopril (ZESTRIL, PRINIVIL) 10 mg tablet Take 1 tablet by mouth once daily. sertraline (ZOLOFT) 25 mg tablet Take 1 tablet by mouth once daily. venlafaxine ER (EFFEXOR XR) 75 mg 24 hr capsule Take 1 capsule by mouth once daily. Cholecalciferol, Vitamin D3, 125 mcg (5,000 unit) cap Take 1 capsule by mouth once daily. meloxicam (MOBIC) 15 mg tablet Take 1 tablet by mouth once daily. With food. cyclobenzaprine (FLEXERIL) 10 mg tablet Take 0.5-1 tablets by mouth three times daily as needed. SUMAtriptan (IMITREX) 100 mg tablet Take 1 tablet by mouth as needed. predniSONE 10 mg tablet pack Take by mouth once daily. oxyCODONE-acetaminophen (PERCOCET) 5-325 mg tablet Take 1 tablet by mouth every 4 hours as needed. gabapentin (NEURONTIN) 100 mg capsule TAKE 4 CAPSULES BY MOUTH 3 TIMES A DAY Leg Brace (YAO KNEE BRACE) misc Sleeve brace left knee Current Facility-Administered Medications Medication Dose Route Frequency onabotulinum toxin type A 200 Units injection (BOTOX) 200 Units INTRADERMAL q 3 MONTHS ALLERGIES: ALLERGIES Allergen Reactions Compazine [Prochlor* Other: See Comments Akathisia with IV Compazine Reglan [Metoclopram* Other: See Comments Akathisia with IV Reglan Seasonal Allergies Other: See Comments PAST MEDICAL HISTORY Diagnosis Date Abnormal Pap smear of cervix ASCUS Acute appendicitis 04/2021 Allergic rhinitis, cause unspecified Anxiety 03/17/2010 buspar Asthma Concussion 2007 Dysmenorrhea Excessive or frequent menstruation Heavy periods Mental disorder Migraine, unspecified, with intractable migraine, so stated, without mention of status migrainosus Migraine Ovarian cyst resolved Pain in joint, pelvic region and thigh 07/29/2014 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 Oscar [place] SURG CHOLECYSTECTOMY W/CHOLANGIOGRAPHY 02/14/2013 SALPINGECTOMY Bilateral 05/31/2019 B/L Salpingectomy at [facility]-Dr. Moore TONSILLECTOMY HX 03/2018 [facility]-Dr. James TUBAL LIGATION HX 01/13/2016 filshie clips FAMILY HISTORY Problem Relation Age of Onset Cancer Mother thyroid, skin. - precancerous cervical cells on pap smear Hypertension Mother Breast Cancer Maternal Grandmother Hypertension Maternal Grandmother Asthma Maternal Grandmother Heart Maternal Grandfather Ischemic Heart Disease Maternal Grandfather stomach, ovarian. Ovarian cancer Other Great Grandmother Social History Tobacco Use Smoking status: Never Smoker Smokeless tobacco: Never Used Tobacco comment: Pt vapes Vaping Use Vaping Use: Former Substances: Nicotine, Flavoring Substance Use Topics Alcohol use: Yes Comment: 1 nightout every 2 months- 2-3 drinks-None since Drug use: No Reviewed current medications, allergies, past medical history, surgical history, family history andsocial history today. REVIEW OF SYSTEMS All other reviewed and negative other than HPI. HEALTH MAINTENANCE: Reviewed health maintenance issues today and recommended the following in detail. VITALS: BP 122/82 Pulse 88 Wt 110.7 kg (244 lb) LMP 07/07/2020 (Exact Date) BMI 41.88 kg/m Last 4 Encounter Wt Readings: Date: Wt: 08/17/2021 110.7 kg (244 lb) 07/21/2021 108.4 kg (239 lb) 05/27/2021 103.8 kg (228 lb 12.8 oz) 05/19/2021 105.5 kg (232 lb 9.6 oz) PHYSICAL EXAMINATION: General appearance: Well appearing, alert, in no acute distress, well-hydrated, well nourished. Skin: Skin color, texture, turgor normal, no suspicious rashes or lesions Head: Normocephalic, no masses, lesions, tenderness or abnormalities Eyes: Anicteric sclera. Pupils are equally round and reactive to light. Extraocular movements are intact. Oropharynx: tender over left lower jaw. No palpable mass. Poor dentition. Neck: Supple, no adenopathy; thyroid symmetric, normal size, no bruits Lungs: Lungs clear to auscultation. No wheezing, rhonchi, rales Heart: RRR without murmur, gallop, or rubs. No ectopy Abdomen: Normal abdominal exam, Abdomen soft, non-tender. Bowel sounds normal. No masses, organomegaly Extremities: No deformities, edema, skin discoloration, clubbing or cyanosis. Good capillary refill. Musculoskeletal: No joint swelling, deformity, or tenderness PSYCH:Affect normal. Normal speech. Normal eye contact ASSESSMENT/PLAN: 1. Dental infection - ICD9: 522.4, ICD10: K04.7 (primary diagnosis) - get labs in one month. See dentist. Discussed risks and benefits of new medication with the patient. Advised them to call if any side effects or questions. Red flags for re-assessment reviewed with patient in detail. Call if symptoms worsen at all or if not better in one to two weeks Reviewed diagnosis and treatment options in detail. Questions were answered. Patient expressed understanding of treatment plan. - CBC + DIFF - AMOXICILLIN 875 MG TABLET 2. Migraine without aura, intractable, with status migrainosus - ICD9: 346.13, ICD10: G43.011 - see headache 3. Mild asthma without complication, unspecified whether persistent - ICD9: 493.90, ICD10: J45.909 - stable. 4. Goiter, nontoxic, multinodular - ICD9: 241.1, ICD10: E04.2 - TSH BLD - US THYROID/PARATHYROID 5. Leukocytosis, unspecified type - ICD9: 288.60, ICD10: D72.829 - recheck as above. 6. Anxiety with depression - ICD9: 300.4, ICD10: F41.8 Discussed risks and benefits of new medication with the patient. Advised them to call if any side effects or questions. - stop zoloft. Increase effexor. - CONSULT TO [facility] - VENLAFAXINE ER 150 MG CAPSULE,EXTENDED RELEASE 24 HR Jes Fuentes RTO in one month and prn. Medical Decision Making documented in this encounterGe[facility]06-11-2019 History of Past illness Narrative* Problem Noted Date Resolved Date Migraine without aura, intra ctable, without status migrainosus 10/24/2018 08/17/2021 Chronic migraine 07/10/2018 08/17/2021 PIH ( induced hypertension) 11/05/2015 01/13/2016 with 33 completed weeks gestation 10/1401/13/2016 Anxiety disorder affecting , antepartum 11/01/2015 01/13/2016 Overview: Currently on Buspar; increased to tid at 30 weeks (10/08/15) headache, antepartum 11/01/2015 0 01/13/2016 Overview: Tx with fioricet labor in third trimester 10/31/2015 01/13/2016 Elevated BP 10/31/2015 01/13/2016 Supervision of normal 07/16/2015 11/01/2015 Encounter for supervision of normal in third trimester 05/26/2015 01/13/2016 Short interval between pregn ancies affecting in second trimester, antepartum 04/28/2015 01/13/2016 Overview: Delivered previous baby in september 2014. First trimester 04/21/20152015 Acute pain of left knee 07/29/2014 08/18/19 Supervision of other normal 03/18/2014 11/01/2015 Cholecystitis with cholelithiasis 02/09/2013 03/18/2014 Pelvic pain 06/30/2012 03/18/2014 Overview: Treated for PID Depression 07/02/2009 03/18/2014 Postconcussion syndrome 12/29/2007 03/18/20 14 Sprain of thoracic region 10/30/20072013 Dysmenorrhea 10/04/2006 03/18/2014 Abdominal pain, left lower quadrant 10/04/2006 03/18/2014 documented as of this encounter (statuses as of 08/17/2021) [facility] History of Past illness Narrative* Problem Noted Date Resolved Date Migraine without aura, intra ctable, without status migrainosus 10/24/2018 08/17/2021 Chronic migraine 07/10/2018 08/17/2021 PIH ( induced hypertension) 11/05/2015 01/13/2016 with 33 completed weeks gestation 10/1401/13/2016 Anxiety disorder affecting , antepartum 11/01/2015 01/13/2016 Overview: Currently on Buspar; increased to tid at 30 weeks (10/08/15) headache, antepartum 11/01/2015 0 01/13/2016 Overview: Tx with fioricet labor in third trimester 10/31/2015 01/13/2016 Elevated BP 10/31/2015 01/13/2016 Supervision of normal 07/16/2015 11/01/2015 Encounter for supervision of normal in third trimester 05/26/2015 01/13/2016 Short interval between pregn ancies affecting in second trimester, antepartum 04/28/2015 01/13/2016 Overview: Delivered previous baby in september 2014. First trimester 04/21/20152015 Acute pain of left knee 07/29/2014 08/18/19 22 Supervision of other normal 03/18/2014 11/01/2015 Cholecystitis with cholelithiasis 02/09/2013 03/18/2014 Pelvic pain 06/30/2012 03/18/2014 Overview: Treated for PID Depression 07/02/2009 03/18/2014 Postconcussion syndrome 12/29/2007 03/18/20 14 Sprain of thoracic region 10/30/20072013 Dysmenorrhea 10/04/2006 03/18/2014 Abdominal pain, left lower quadrant 10/04/2006 03/18/2014 documented as of this encounter (statuses as of 08/17/2021) [facility] History of Past illness Narrative* Problem Noted Date Resolved Date Migraine without aura, intra ctable, without status migrainosus 10/24/2018 08/17/2021 Chronic migraine 07/10/2018 08/17/2021 PIH ( induced hypertension) 11/05/2015 01/13/2016 with 33 completed weeks gestation 10/1401/13/2016 Anxiety disorder affecting , antepartum 11/01/2015 01/13/2016 Overview: Currently on Buspar; increased to tid at 30 weeks (10/08/15) headache, antepartum 11/01/2015 0 01/13/2016 Overview: Tx with fioricet labor in third trimester 10/31/2015 01/13/2016 Elevated BP 10/31/2015 01/13/2016 Supervision of normal 07/16/2015 11/01/2015 Encounter for supervision of normal in third trimester 05/26/2015 01/13/2016 Short interval between pregn ancies affecting in second trimester, antepartum 04/28/2015 01/13/2016 Overview: Delivered previous baby in september 2014. First trimester 04/21/20152015 Acute pain of left knee 07/29/2014 08/18/19 22 Supervision of other normal 03/18/2014 11/01/2015 Cholecystitis with cholelithiasis 02/09/2013 03/18/2014 Pelvic pain 06/30/2012 03/18/2014 Overview: Treated for PID Depression 07/02/2009 03/18/2014 Postconcussion syndrome 12/29/2007 03/18/20 14 Sprain of thoracic region 10/30/20072013 Dysmenorrhea 10/04/2006 03/18/2014 Abdominal pain, left lower quadrant 10/04/2006 03/18/2014 documented as of this encounter (statuses as of 09/11/2021) [facility] History of Past illness Narrative* Problem Noted Date Resolved Date Migraine without aura, intra ctable, without status migrainosus 10/24/2018 08/17/2021 Chronic migraine 07/10/2018 08/17/2021 PIH ( induced hypertension) 11/05/2015 01/13/2016 with 33 completed weeks gestation 10/1401/13/2016 Anxiety disorder affecting , antepartum 11/01/2015 01/13/2016 Overview: Currently on Buspar; increased to tid at 30 weeks (10/08/15) headache, antepartum 11/01/2015 0 01/13/2016 Overview: Tx with fioricet labor in third trimester 10/31/2015 01/13/2016 Elevated BP 10/31/2015 01/13/2016 Supervision of normal 07/16/2015 11/01/2015 Encounter for supervision of normal in third trimester 05/26/2015 01/13/2016 Short interval between pregn ancies affecting in second trimester, antepartum 04/28/2015 01/13/2016 Overview: Delivered previous baby in september 2014. First trimester 04/21/20152015 Acute pain of left knee 07/29/2014 08/18/19 Supervision of other normal 03/18/2014 11/01/2015 Cholecystitis with cholelithiasis 02/09/2013 03/18/2014 Goiter, nontoxic, multinodular 01/29/2013 0 09/11/2021 Overview: Repeat US due 07/2013. Pelvic pain 06/30/2012 03/18/2014 Overview: Treated for PID Depression 07/02/2009 03/18/2014 Postconcussion syndrome 12/29/2007 03/18/20 14 Sprain of thoracic region 10/30/20072013 Dysmenorrhea 10/04/2006 03/18/2014 Abdominal pain, left lower quadrant 10/04/2006 03/18/2014 documented as of this encounter (statuses as of 09/11/2021) [facility] History of Past illness Narrative* Problem Noted Date Resolved Date Migraine without aura, intra ctable, without status migrainosus 10/24/2018 08/17/2021 Chronic migraine 07/10/2018 08/17/2021 PIH ( induced hypertension) 11/05/2015 01/13/2016 with 33 completed weeks gestation 10/1401/13/2016 Anxiety disorder affecting , antepartum 11/01/2015 01/13/2016 Overview: Currently on Buspar; increased to tid at 30 weeks (10/08/15) headache, antepartum 11/01/2015 0 01/13/2016 Overview: Tx with fioricet labor in third trimester 10/31/2015 01/13/2016 Elevated BP 10/31/2015 01/13/2016 Supervision of normal 07/16/2015 11/01/2015 Encounter for supervision of normal in third trimester 05/26/2015 01/13/2016 Short interval between pregn ancies affecting in second trimester, antepartum 04/28/2015 01/13/2016 Overview: Delivered previous baby in september 2014. First trimester 04/21/20152015 Acute pain of left knee 07/29/2014 08/18/19 Supervision of other normal 03/18/2014 11/01/2015 Cholecystitis with cholelithiasis 02/09/2013 03/18/2014 Goiter, nontoxic, multinodular 01/29/2013 0 09/11/2021 Overview: Repeat US due 07/2013. Pelvic pain 06/30/2012 03/18/2014 Overview: Treated for PID Depression 07/02/2009 03/18/2014 Postconcussion syndrome 12/29/2007 03/18/20 14 Sprain of thoracic region 10/30/20072013 Dysmenorrhea 10/04/2006 03/18/2014 Abdominal pain, left lower quadrant 10/04/2006 03/18/2014 documented as of this encounter (statuses as of 10/09/2021) [facility] History of Past illness Narrative* Problem Noted Date Resolved Date Migraine without aura, intra ctable, without status migrainosus 10/24/2018 08/17/2021 Chronic migraine 07/10/2018 08/17/2021 PIH ( induced hypertension) 11/05/2015 01/13/2016 with 33 completed weeks gestation 10/1401/13/2016 Anxiety disorder affecting , antepartum 11/01/2015 01/13/2016 Overview: Currently on Buspar; increased to tid at 30 weeks (10/08/15) headache, antepartum 11/01/2015 0 01/13/2016 Overview: Tx with fioricet labor in third trimester 10/31/2015 01/13/2016 Elevated BP 10/31/2015 01/13/2016 Supervision of normal 07/16/2015 11/01/2015 Encounter for supervision of normal in third trimester 05/26/2015 01/13/2016 Short interval between pregn ancies affecting in second trimester, antepartum 04/28/2015 01/13/2016 Overview: Delivered previous baby in september 2014. First trimester 04/21/20152015 Acute pain of left knee 07/29/2014 08/18/19 Supervision of other normal 03/18/2014 11/01/2015 Cholecystitis with cholelithiasis 02/09/2013 03/18/2014 Goiter, nontoxic, multinodular 01/29/2013 0 09/11/2021 Overview: Repeat US due 07/2013. Pelvic pain 06/30/2012 03/18/2014 Overview: Treated for PID Depression 07/02/2009 03/18/2014 Postconcussion syndrome 12/29/2007 03/18/20 14 Sprain of thoracic region 10/30/20072013 Dysmenorrhea 10/04/2006 03/18/2014 Abdominal pain, left lower quadrant 10/04/2006 03/18/2014 documented as of this encounter (statuses as of 10/22/2021) [facility] History of Past illness Narrative* Problem Noted Date Resolved Date Migraine without aura, intra ctable, without status migrainosus 10/24/2018 08/17/2021 Chronic migraine 07/10/2018 08/17/2021 PIH ( induced hypertension) 11/05/2015 01/13/2016 with 33 completed weeks gestation 10/1401/13/2016 Anxiety disorder affecting , antepartum 11/01/2015 01/13/2016 Overview: Currently on Buspar; increased to tid at 30 weeks (10/08/15) headache, antepartum 11/01/2015 0 01/13/2016 Overview: Tx with fioricet labor in third trimester 10/31/2015 01/13/2016 Elevated BP 10/31/2015 01/13/2016 Supervision of normal 07/16/2015 11/01/2015 Encounter for supervision of normal in third trimester 05/26/2015 01/13/2016 Short interval between pregn ancies affecting in second trimester, antepartum 04/28/2015 01/13/2016 Overview: Delivered previous baby in september 2014. First trimester 04/21/20152015 Acute pain of left knee 07/29/2014 08/18/19 Supervision of other normal 03/18/2014 11/01/2015 Cholecystitis with cholelithiasis 02/09/2013 03/18/2014 Goiter, nontoxic, multinodular 01/29/2013 0 09/11/2021 Overview: Repeat US due 07/2013. Pelvic pain 06/30/2012 03/18/2014 Overview: Treated for PID Depression 07/02/2009 03/18/2014 Postconcussion syndrome 12/29/2007 03/18/20 14 Sprain of thoracic region 10/30/20072013 Dysmenorrhea 10/04/2006 03/18/2014 Abdominal pain, left lower quadrant 10/04/2006 03/18/2014 documented as of this encounter (statuses as of 11/17/2021) [facility] History of Past illness Narrative* Problem Noted Date Resolved Date Migraine without aura, intra ctable, without status migrainosus 10/24/2018 08/17/2021 Chronic migraine 07/10/2018 08/17/2021 PIH ( induced hypertension) 11/05/2015 01/13/2016 with 33 completed weeks gestation 10/1401/13/2016 Anxiety disorder affecting , antepartum 11/01/2015 01/13/2016 Overview: Currently on Buspar; increased to tid at 30 weeks (10/08/15) headache, antepartum 11/01/2015 0 01/13/2016 Overview: Tx with fioricet labor in third trimester 10/31/2015 01/13/2016 Elevated BP 10/31/2015 01/13/2016 Supervision of normal 07/16/2015 11/01/2015 Encounter for supervision of normal in third trimester 05/26/2015 01/13/2016 Short interval between pregn ancies affecting in second trimester, antepartum 04/28/2015 01/13/2016 Overview: Delivered previous baby in september 2014. First trimester 04/21/20152015 Acute pain of left knee 07/29/2014 08/18/19 Supervision of other normal 03/18/2014 11/01/2015 Cholecystitis with cholelithiasis 02/09/2013 03/18/2014 Goiter, nontoxic, multinodular 01/29/2013 0 09/11/2021 Overview: Repeat US due 07/2013. Pelvic pain 06/30/2012 03/18/2014 Overview: Treated for PID Depression 07/02/2009 03/18/2014 Postconcussion syndrome 12/29/2007 03/18/20 14 Sprain of thoracic region 10/30/20072013 Dysmenorrhea 10/04/2006 03/18/2014 Abdominal pain, left lower quadrant 10/04/2006 03/18/2014 documented as of this encounter (statuses as of 11/25/2021) [facility] History of Past illness Narrative* Problem Noted Date Resolved Date Migraine without aura, intra ctable, without status migrainosus 10/24/2018 08/17/2021 Chronic migraine 07/10/2018 08/17/2021 PIH ( induced hypertension) 11/05/2015 01/13/2016 with 33 completed weeks gestation 10/1401/13/2016 Anxiety disorder affecting , antepartum 11/01/2015 01/13/2016 Overview: Currently on Buspar; increased to tid at 30 weeks (10/08/15) headache, antepartum 11/01/2015 0 01/13/2016 Overview: Tx with fioricet labor in third trimester 10/31/2015 01/13/2016 Elevated BP 10/31/2015 01/13/2016 Supervision of normal 07/16/2015 11/01/2015 Encounter for supervision of normal in third trimester 05/26/2015 01/13/2016 Short interval between pregn ancies affecting in second trimester, antepartum 04/28/2015 01/13/2016 Overview: Delivered previous baby in september 2014. First trimester 04/21/20152015 Acute pain of left knee 07/29/2014 08/18/19 22 Supervision of other normal 03/18/2014 11/01/2015 Cholecystitis with cholelithiasis 02/09/2013 03/18/2014 Goiter, nontoxic, multinodular 01/29/2013 0 09/11/2021 Overview: Repeat US due 07/2013. Pelvic pain 06/30/2012 03/18/2014 Overview: Treated for PID Depression 07/02/2009 03/18/2014 Postconcussion syndrome 12/29/2007 03/18/20 14 Sprain of thoracic region 10/30/20072013 Dysmenorrhea 10/04/2006 03/18/2014 Abdominal pain, left lower quadrant 10/04/2006 03/18/2014 documented as of this encounter (statuses as of 12/01/2021) [facility] History of Past illness Narrative* Problem Noted Date Resolved Date Migraine without aura, intra ctable, without status migrainosus 10/24/2018 08/17/2021 Chronic migraine 07/10/2018 08/17/2021 PIH ( induced hypertension) 11/05/2015 01/13/2016 with 33 completed weeks gestation 10/1401/13/2016 Anxiety disorder affecting , antepartum 11/01/2015 01/13/2016 Overview: Currently on Buspar; increased to tid at 30 weeks (10/08/15) headache, antepartum 11/01/2015 0 01/13/2016 Overview: Tx with fioricet labor in third trimester 10/31/2015 01/13/2016 Elevated BP 10/31/2015 01/13/2016 Supervision of normal 07/16/2015 11/01/2015 Encounter for supervision of normal in third trimester 05/26/2015 01/13/2016 Short interval between pregn ancies affecting in second trimester, antepartum 04/28/2015 01/13/2016 Overview: Delivered previous baby in september 2014. First trimester 04/21/20152015 Acute pain of left knee 07/29/2014 08/18/19 Supervision of other normal 03/18/2014 11/01/2015 Cholecystitis with cholelithiasis 02/09/2013 03/18/2014 Goiter, nontoxic, multinodular 01/29/2013 0 09/11/2021 Overview: Repeat US due 07/2013. Pelvic pain 06/30/2012 03/18/2014 Overview: Treated for PID Depression 07/02/2009 03/18/2014 Postconcussion syndrome 12/29/2007 03/18/20 14 Sprain of thoracic region 10/30/20072013 Dysmenorrhea 10/04/2006 03/18/2014 Abdominal pain, left lower quadrant 10/04/2006 03/18/2014 documented as of this encounter (statuses as of 12/21/2021) [facility] of Past illness Narrative* Problem Noted Date Resolved Date Migraine without aura, intra ctable, without status migrainosus 10/24/2018 08/17/2021 Chronic migraine 07/10/2018 08/17/2021 PIH ( induced hypertension) 11/05/2015 01/13/2016 with 33 completed weeks gestation 10/1401/13/2016 Anxiety disorder affecting , antepartum 11/01/2015 01/13/2016 Overview: Currently on Buspar; increased to tid at 30 weeks (10/08/15) headache, antepartum 11/01/2015 0 01/13/2016 Overview: Tx with fioricet labor in third trimester 10/31/2015 01/13/2016 Elevated BP 10/31/2015 01/13/2016 Supervision of normal 07/16/2015 11/01/2015 Encounter for supervision of normal in third trimester 05/26/2015 01/13/2016 Short interval between pregn ancies affecting in second trimester, antepartum 04/28/2015 01/13/2016 Overview: Delivered previous baby in september 2014. First trimester 04/21/20152015 Acute pain of left knee 07/29/2014 08/18/19 22 Supervision of other normal 03/18/2014 11/01/2015 Cholecystitis with cholelithiasis 02/09/2013 03/18/2014 Goiter, nontoxic, multinodular 01/29/2013 0 09/11/2021 Overview: Repeat US due 07/2013. Pelvic pain 06/30/2012 03/18/2014 Overview: Treated for PID Depression 07/02/2009 03/18/2014 Postconcussion syndrome 12/29/2007 03/18/20 14 Sprain of thoracic region 10/30/20072013 Dysmenorrhea 10/04/2006 03/18/2014 Abdominal pain, left lower quadrant 10/04/2006 03/18/2014 documented as of this encounter (statuses as of 12/21/2021) [facility] of Past illness Narrative* Problem Noted Date Resolved Date Migraine without aura, intra ctable, without status migrainosus 10/24/2018 08/17/2021 Chronic migraine 07/10/2018 08/17/2021 PIH ( induced hypertension) 11/05/2015 01/13/2016 with 33 completed weeks gestation 10/1401/13/2016 Anxiety disorder affecting , antepartum 11/01/2015 01/13/2016 Overview: Currently on Buspar; increased to tid at 30 weeks (10/08/15) headache, antepartum 11/01/2015 0 01/13/2016 Overview: Tx with fioricet labor in third trimester 10/31/2015 01/13/2016 Elevated BP 10/31/2015 01/13/2016 Supervision of normal 07/16/2015 11/01/2015 Encounter for supervision of normal in third trimester 05/26/2015 01/13/2016 Short interval between pregn ancies affecting in second trimester, antepartum 04/28/2015 01/13/2016 Overview: Delivered previous baby in september 2014. First trimester 04/21/20152015 Acute pain of left knee 07/29/2014 08/18/19 Supervision of other normal 03/18/2014 11/01/2015 Cholecystitis with cholelithiasis 02/09/2013 03/18/2014 Goiter, nontoxic, multinodular 01/29/2013 0 09/11/2021 Overview: Repeat US due 07/2013. Pelvic pain 06/30/2012 03/18/2014 Overview: Treated for PID Depression 07/02/2009 03/18/2014 Postconcussion syndrome 12/29/2007 03/18/20 14 Sprain of thoracic region 10/30/20072013 Dysmenorrhea 10/04/2006 03/18/2014 Abdominal pain, left lower quadrant 10/04/2006 03/18/2014 documented as of this encounter (statuses as of 01/28/2022) [facility] Past illness Narrative* Problem Noted Date Resolved Date Migraine without aura, intra ctable, without status migrainosus 10/24/2018 08/17/2021 Chronic migraine 07/10/2018 08/17/2021 PIH ( induced hypertension) 11/05/2015 01/13/2016 with 33 completed weeks gestation 10/1401/13/2016 Anxiety disorder affecting , antepartum 11/01/2015 01/13/2016 Overview: Currently on Buspar; increased to tid at 30 weeks (10/08/15) headache, antepartum 11/01/2015 0 01/13/2016 Overview: Tx with fioricet labor in third trimester 10/31/2015 01/13/2016 Elevated BP 10/31/2015 01/13/2016 Supervision of normal 07/16/2015 11/01/2015 Encounter for supervision of normal in third trimester 05/26/2015 01/13/2016 Short interval between pregn ancies affecting in second trimester, antepartum 04/28/2015 01/13/2016 Overview: Delivered previous baby in september 2014. First trimester 04/21/20152015 Acute pain of left knee 07/29/2014 08/18/19 Supervision of other normal 03/18/2014 11/01/2015 Cholecystitis with cholelithiasis 02/09/2013 03/18/2014 Goiter, nontoxic, multinodular 01/29/2013 0 09/11/2021 Overview: Repeat US due 07/2013. Pelvic pain 06/30/2012 03/18/2014 Overview: Treated for PID Depression 07/02/2009 03/18/2014 Postconcussion syndrome 12/29/2007 03/18/20 14 Sprain of thoracic region 10/30/20072013 Dysmenorrhea 10/04/2006 03/18/2014 Abdominal pain, left lower quadrant 10/04/2006 03/18/2014 documented as of this encounter (statuses as of 02/02/2022) [facility] Past illness Narrative* Problem Noted Date Resolved Date Migraine without aura, intra ctable, without status migrainosus 10/24/2018 08/17/2021 Chronic migraine 07/10/2018 08/17/2021 PIH ( induced hypertension) 11/05/2015 01/13/2016 with 33 completed weeks gestation 10/1401/13/2016 Anxiety disorder affecting , antepartum 11/01/2015 01/13/2016 Overview: Currently on Buspar; increased to tid at 30 weeks (10/08/15) headache, antepartum 11/01/2015 0 01/13/2016 Overview: Tx with fioricet labor in third trimester 10/31/2015 01/13/2016 Elevated BP 10/31/2015 01/13/2016 Supervision of normal 07/16/2015 11/01/2015 Encounter for supervision of normal in third trimester 05/26/2015 01/13/2016 Short interval between pregn ancies affecting in second trimester, antepartum 04/28/2015 01/13/2016 Overview: Delivered previous baby in september 2014. First trimester 04/21/20152015 Acute pain of left knee 07/29/2014 08/18/19 Supervision of other normal 03/18/2014 11/01/2015 Cholecystitis with cholelithiasis 02/09/2013 03/18/2014 Goiter, nontoxic, multinodular 01/29/2013 0 09/11/2021 Overview: Repeat US due 07/2013. Pelvic pain 06/30/2012 03/18/2014 Overview: Treated for PID Depression 07/02/2009 03/18/2014 Postconcussion syndrome 12/29/2007 03/18/20 14 Sprain of thoracic region 10/30/20072013 Dysmenorrhea 10/04/2006 03/18/2014 Abdominal pain, left lower quadrant 10/04/2006 03/18/2014 documented as of this encounter (statuses as of 02/19/2022) [facility] Past illness Narrative* Problem Noted Date Resolved Date Migraine without aura, intra ctable, without status migrainosus 10/24/2018 08/17/2021 Chronic migraine 07/10/2018 08/17/2021 PIH ( induced hypertension) 11/05/2015 01/13/2016 with 33 completed weeks gestation 10/1401/13/2016 Anxiety disorder affecting , antepartum 11/01/2015 01/13/2016 Overview: Currently on Buspar; increased to tid at 30 weeks (10/08/15) headache, antepartum 11/01/2015 0 01/13/2016 Overview: Tx with fioricet labor in third trimester 10/31/2015 01/13/2016 Elevated BP 10/31/2015 01/13/2016 Supervision of normal 07/16/2015 11/01/2015 Encounter for supervision of normal in third trimester 05/26/2015 01/13/2016 Short interval between pregn ancies affecting in second trimester, antepartum 04/28/2015 01/13/2016 Overview: Delivered previous baby in september 2014. First trimester 04/21/20152015 Acute pain of left knee 07/29/2014 08/18/19 Supervision of other normal 03/18/2014 11/01/2015 Cholecystitis with cholelithiasis 02/09/2013 03/18/2014 Goiter, nontoxic, multinodular 01/29/2013 0 09/11/2021 Overview: Repeat US due 07/2013. Pelvic pain 06/30/2012 03/18/2014 Overview: Treated for PID Depression 07/02/2009 03/18/2014 Postconcussion syndrome 12/29/2007 03/18/20 14 Sprain of thoracic region 10/30/20072013 Dysmenorrhea 10/04/2006 03/18/2014 Abdominal pain, left lower quadrant 10/04/2006 03/18/2014 documented as of this encounter (statuses as of 02/22/2022) [facility] Past [facility] Narrative* Problem Noted Date Resolved Date Migraine without aura, intra ctable, without status migrainosus 10/24/2018 08/17/2021 Chronic migraine 07/10/2018 08/17/2021 PIH ( induced hypertension) 11/05/2015 01/13/2016 with 33 completed weeks gestation 10/1401/13/2016 Anxiety disorder affecting , antepartum 11/01/2015 01/13/2016 Overview: Currently on Buspar; increased to tid at 30 weeks (10/08/15) headache, antepartum 11/01/2015 0 01/13/2016 Overview: Tx with fioricet labor in third trimester 10/31/2015 01/13/2016 Elevated BP 10/31/2015 01/13/2016 Supervision of normal 07/16/2015 11/01/2015 Encounter for supervision of normal in third trimester 05/26/2015 01/13/2016 Short interval between pregn ancies affecting in second trimester, antepartum 04/28/2015 01/13/2016 Overview: Delivered previous baby in september 2014. First trimester 04/21/20152015 Acute pain of left knee 07/29/2014 08/18/19 Supervision of other normal 03/18/2014 11/01/2015 Cholecystitis with cholelithiasis 02/09/2013 03/18/2014 Goiter, nontoxic, multinodular 01/29/2013 0 09/11/2021 Overview: Repeat US due 07/2013. Pelvic pain 06/30/2012 03/18/2014 Overview: Treated for PID Depression 07/02/2009 03/18/2014 Postconcussion syndrome 12/29/2007 03/18/20 14 Sprain of thoracic region 10/30/20072013 Dysmenorrhea 10/04/2006 03/18/2014 Abdominal pain, left lower quadrant 10/04/2006 03/18/2014 documented as of this encounter (statuses as of 04/13/2022) [facility] Past [facility] Narrative* Problem Noted Date Resolved Date Migraine without aura, intra ctable, without status migrainosus 10/24/2018 08/17/2021 Chronic migraine 07/10/2018 08/17/2021 PIH ( induced hypertension) 11/05/2015 01/13/2016 with 33 completed weeks gestation 10/1401/13/2016 Anxiety disorder affecting , antepartum 11/01/2015 01/13/2016 Overview: Currently on Buspar; increased to tid at 30 weeks (10/08/15) headache, antepartum 11/01/2015 0 01/13/2016 Overview: Tx with fioricet labor in third trimester 10/31/2015 01/13/2016 Elevated BP 10/31/2015 01/13/2016 Supervision of normal 07/16/2015 11/01/2015 Encounter for supervision of normal in third trimester 05/26/2015 01/13/2016 Short interval between pregn ancies affecting in second trimester, antepartum 04/28/2015 01/13/2016 Overview: Delivered previous baby in september 2014. First trimester 04/21/20152015 Acute pain of left knee 07/29/2014 08/18/19 Supervision of other normal 03/18/2014 11/01/2015 Cholecystitis with cholelithiasis 02/09/2013 03/18/2014 Goiter, nontoxic, multinodular 01/29/2013 0 09/11/2021 Overview: Repeat US due 07/2013. Pelvic pain 06/30/2012 03/18/2014 Overview: Treated for PID Depression 07/02/2009 03/18/2014 Postconcussion syndrome 12/29/2007 03/18/20 14 Sprain of thoracic region 10/30/20072013 Dysmenorrhea 10/04/2006 03/18/2014 Abdominal pain, left lower quadrant 10/04/2006 03/18/2014 documented as of this encounter (statuses as of 04/21/2022) [facility] History of Past illness Narrative* Problem Noted Date Resolved Date Migraine without aura, intra ctable, without status migrainosus 10/24/2018 08/17/2021 Chronic migraine 07/10/2018 08/17/2021 PIH ( induced hypertension) 11/05/2015 01/13/2016 with 33 completed weeks gestation 10/1401/13/2016 Anxiety disorder affecting , antepartum 11/01/2015 01/13/2016 Overview: Currently on Buspar; increased to tid at 30 weeks (10/08/15) headache, antepartum 11/01/2015 0 01/13/2016 Overview: Tx with fioricet labor in third trimester 10/31/2015 01/13/2016 Elevated BP 10/31/2015 01/13/2016 Supervision of normal 07/16/2015 11/01/2015 Encounter for supervision of normal in third trimester 05/26/2015 01/13/2016 Short interval between pregn ancies affecting in second trimester, antepartum 04/28/2015 01/13/2016 Overview: Delivered previous baby in september 2014. First trimester 04/21/20152015 Acute pain of left knee 07/29/2014 08/18/19 Supervision of other normal 03/18/2014 11/01/2015 Cholecystitis with cholelithiasis 02/09/2013 03/18/2014 Goiter, nontoxic, multinodular 01/29/2013 0 09/11/2021 Overview: Repeat US due 07/2013. Pelvic pain 06/30/2012 03/18/2014 Overview: Treated for PID Depression 07/02/2009 03/18/2014 Postconcussion syndrome 12/29/2007 03/18/20 14 Sprain of thoracic region 10/30/20072013 Dysmenorrhea 10/04/2006 03/18/2014 Abdominal pain, left lower quadrant 10/04/2006 03/18/2014 documented as of this encounter (statuses as of 04/21/2022) [facility] History of Past illness Narrative* Problem Noted Date Resolved Date Migraine without aura, intra ctable, without status migrainosus 10/24/2018 08/17/2021 Chronic migraine 07/10/2018 08/17/2021 PIH ( induced hypertension) 11/05/2015 01/13/2016 with 33 completed weeks gestation 10/1401/13/2016 Anxiety disorder affecting , antepartum 11/01/2015 01/13/2016 Overview: Currently on Buspar; increased to tid at 30 weeks (10/08/15) headache, antepartum 11/01/2015 0 01/13/2016 Overview: Tx with fioricet labor in third trimester 10/31/2015 01/13/2016 Elevated BP 10/31/2015 01/13/2016 Supervision of normal 07/16/2015 11/01/2015 Encounter for supervision of normal in third trimester 05/26/2015 01/13/2016 Short interval between pregn ancies affecting in second trimester, antepartum 04/28/2015 01/13/2016 Overview: Delivered previous baby in september 2014. First trimester 04/21/20152015 Acute pain of left knee 07/29/2014 08/18/19 Supervision of other normal 03/18/2014 11/01/2015 Cholecystitis with cholelithiasis 02/09/2013 03/18/2014 Goiter, nontoxic, multinodular 01/29/2013 0 09/11/2021 Overview: Repeat US due 07/2013. Pelvic pain 06/30/2012 03/18/2014 Overview: Treated for PID Depression 07/02/2009 03/18/2014 Postconcussion syndrome 12/29/2007 03/18/20 14 Sprain of thoracic region 10/30/20072013 Dysmenorrhea 10/04/2006 03/18/2014 Abdominal pain, left lower quadrant 10/04/2006 03/18/2014 documented as of this encounter (statuses as of 04/21/2022) [facility] History of Past illness Narrative* Problem Noted Date Resolved Date Migraine without aura, intra ctable, without status migrainosus 10/24/2018 08/17/2021 Chronic migraine 07/10/2018 08/17/2021 PIH ( induced hypertension) 11/05/2015 01/13/2016 with 33 completed weeks gestation 10/1401/13/2016 Anxiety disorder affecting , antepartum 11/01/2015 01/13/2016 Overview: Currently on Buspar; increased to tid at 30 weeks (10/08/15) headache, antepartum 11/01/2015 0 01/13/2016 Overview: Tx with fioricet labor in third trimester 10/31/2015 01/13/2016 Elevated BP 10/31/2015 01/13/2016 Supervision of normal 07/16/2015 11/01/2015 Encounter for supervision of normal in third trimester 05/26/2015 01/13/2016 Short interval between pregn ancies affecting in second trimester, antepartum 04/28/2015 01/13/2016 Overview: Delivered previous baby in september 2014. First trimester 04/21/20152015 Acute pain of left knee 07/29/2014 08/18/19 Supervision of other normal 03/18/2014 11/01/2015 Cholecystitis with cholelithiasis 02/09/2013 03/18/2014 Goiter, nontoxic, multinodular 01/29/2013 0 09/11/2021 Overview: Repeat US due 07/2013. Pelvic pain 06/30/2012 03/18/2014 Overview: Treated for PID Depression 07/02/2009 03/18/2014 Postconcussion syndrome 12/29/2007 03/18/20 14 Sprain of thoracic region 10/30/20072013 Dysmenorrhea 10/04/2006 03/18/2014 Abdominal pain, left lower quadrant 10/04/2006 03/18/2014 documented as of this encounter (statuses as of 04/21/2022) [facility] History of Past illness Narrative* Problem Noted Date Resolved Date Migraine without aura, intra ctable, without status migrainosus 10/24/2018 08/17/2021 Chronic migraine 07/10/2018 08/17/2021 PIH ( induced hypertension) 11/05/2015 01/13/2016 with 33 completed weeks gestation 10/1401/13/2016 Anxiety disorder affecting , antepartum 11/01/2015 01/13/2016 Overview: Currently on Buspar; increased to tid at 30 weeks (10/08/15) headache, antepartum 11/01/2015 0 01/13/2016 Overview: Tx with fioricet labor in third trimester 10/31/2015 01/13/2016 Elevated BP 10/31/2015 01/13/2016 Supervision of normal 07/16/2015 11/01/2015 Encounter for supervision of normal in third trimester 05/26/2015 01/13/2016 Short interval between pregn ancies affecting in second trimester, antepartum 04/28/2015 01/13/2016 Overview: Delivered previous baby in september 2014. First trimester 04/21/20152015 Acute pain of left knee 07/29/2014 08/18/19 Supervision of other normal 03/18/2014 11/01/2015 Cholecystitis with cholelithiasis 02/09/2013 03/18/2014 Goiter, nontoxic, multinodular 01/29/2013 0 09/11/2021 Overview: Repeat US due 07/2013. Pelvic pain 06/30/2012 03/18/2014 Overview: Treated for PID Depression 07/02/2009 03/18/2014 Postconcussion syndrome 12/29/2007 03/18/20 14 Sprain of thoracic region 10/30/20072013 Dysmenorrhea 10/04/2006 03/18/2014 Abdominal pain, left lower quadrant 10/04/2006 03/18/2014 documented as of this encounter (statuses as of 05/04/2022) [facility] History of Past illness Narrative* Problem Noted Date Resolved Date Migraine without aura, intra ctable, without status migrainosus 10/24/2018 08/17/2021 Chronic migraine 07/10/2018 08/17/2021 PIH ( induced hypertension) 11/05/2015 01/13/2016 with 33 completed weeks gestation 10/1401/13/2016 Anxiety disorder affecting , antepartum 11/01/2015 01/13/2016 Overview: Currently on Buspar; increased to tid at 30 weeks (10/08/15) headache, antepartum 11/01/2015 0 01/13/2016 Overview: Tx with fioricet labor in third trimester 10/31/2015 01/13/2016 Elevated BP 10/31/2015 01/13/2016 Supervision of normal 07/16/2015 11/01/2015 Encounter for supervision of normal in third trimester 05/26/2015 01/13/2016 Short interval between pregn ancies affecting in second trimester, antepartum 04/28/2015 01/13/2016 Overview: Delivered previous baby in september 2014. First trimester 04/21/20152015 Acute pain of left knee 07/29/2014 08/18/19 Supervision of other normal 03/18/2014 11/01/2015 Cholecystitis with cholelithiasis 02/09/2013 03/18/2014 Goiter, nontoxic, multinodular 01/29/2013 0 09/11/2021 Overview: Repeat US due 07/2013. Pelvic pain 06/30/2012 03/18/2014 Overview: Treated for PID Depression 07/02/2009 03/18/2014 Postconcussion syndrome 12/29/2007 03/18/20 14 Sprain of thoracic region 10/30/20072013 Dysmenorrhea 10/04/2006 03/18/2014 Abdominal pain, left lower quadrant 10/04/2006 03/18/2014 documented as of this encounter (statuses as of 05/26/2022) [facility] History of Past illness Narrative* Problem Noted Date Resolved Date Migraine without aura, intra ctable, without status migrainosus 10/24/2018 08/17/2021 Chronic migraine 07/10/2018 08/17/2021 PIH ( induced hypertension) 11/05/2015 01/13/2016 with 33 completed weeks gestation 10/1401/13/2016 Anxiety disorder affecting , antepartum 11/01/2015 01/13/2016 Overview: Currently on Buspar; increased to tid at 30 weeks (10/08/15) headache, antepartum 11/01/2015 0 01/13/2016 Overview: Tx with fioricet labor in third trimester 10/31/2015 01/13/2016 Elevated BP 10/31/2015 01/13/2016 Supervision of normal 07/16/2015 11/01/2015 Encounter for supervision of normal in third trimester 05/26/2015 01/13/2016 Short interval between pregn ancies affecting in second trimester, antepartum 04/28/2015 01/13/2016 Overview: Delivered previous baby in september 2014. First trimester 04/21/20152015 Acute pain of left knee 07/29/2014 08/18/19 Supervision of other normal 03/18/2014 11/01/2015 Cholecystitis with cholelithiasis 02/09/2013 03/18/2014 Goiter, nontoxic, multinodular 01/29/2013 0 09/11/2021 Overview: Repeat US due 07/2013. Pelvic pain 06/30/2012 03/18/2014 Overview: Treated for PID Depression 07/02/2009 03/18/2014 Postconcussion syndrome 12/29/2007 03/18/20 14 Sprain of thoracic region 10/30/20072013 Dysmenorrhea 10/04/2006 03/18/2014 Abdominal pain, left lower quadrant 10/04/2006 03/18/2014 documented as of this encounter (statuses as of 05/28/2022) [facility] of Past illness Narrative* Problem Noted Date Resolved Date Migraine without aura, intra ctable, without status migrainosus 10/24/2018 08/17/2021 Chronic migraine 07/10/2018 08/17/2021 PIH ( induced hypertension) 11/05/2015 01/13/2016 with 33 completed weeks gestation 10/1401/13/2016 Anxiety disorder affecting , antepartum 11/01/2015 01/13/2016 Overview: Currently on Buspar; increased to tid at 30 weeks (10/08/15) headache, antepartum 11/01/2015 0 01/13/2016 Overview: Tx with fioricet labor in third trimester 10/31/2015 01/13/2016 Elevated BP 10/31/2015 01/13/2016 Supervision of normal 07/16/2015 11/01/2015 Encounter for supervision of normal in third trimester 05/26/2015 01/13/2016 Short interval between pregn ancies affecting in second trimester, antepartum 04/28/2015 01/13/2016 Overview: Delivered previous baby in september 2014. First trimester 04/21/20152015 Acute pain of left knee 07/29/2014 08/18/19 Supervision of other normal 03/18/2014 11/01/2015 Cholecystitis with cholelithiasis 02/09/2013 03/18/2014 Goiter, nontoxic, multinodular 01/29/2013 0 09/11/2021 Overview: Repeat US due 07/2013. Pelvic pain 06/30/2012 03/18/2014 Overview: Treated for PID Depression 07/02/2009 03/18/2014 Postconcussion syndrome 12/29/2007 03/18/20 14 Sprain of thoracic region 10/30/20072013 Dysmenorrhea 10/04/2006 03/18/2014 Abdominal pain, left lower quadrant 10/04/2006 03/18/2014 documented as of this encounter (statuses as of 05/28/2022) [facility] History of Past illness Narrative* Problem Noted Date Resolved Date Migraine without aura, intra ctable, without status migrainosus 10/24/2018 08/17/2021 Chronic migraine 07/10/2018 08/17/2021 PIH ( induced hypertension) 11/05/2015 01/13/2016 with 33 completed weeks gestation 10/1401/13/2016 Anxiety disorder affecting , antepartum 11/01/2015 01/13/2016 Overview: Currently on Buspar; increased to tid at 30 weeks (10/08/15) headache, antepartum 11/01/2015 0 01/13/2016 Overview: Tx with fioricet labor in third trimester 10/31/2015 01/13/2016 Elevated BP 10/31/2015 01/13/2016 Supervision of normal 07/16/2015 11/01/2015 Encounter for supervision of normal in third trimester 05/26/2015 01/13/2016 Short interval between pregn ancies affecting in second trimester, antepartum 04/28/2015 01/13/2016 Overview: Delivered previous baby in september 2014. First trimester 04/21/20152015 Acute pain of left knee 07/29/2014 08/18/19 22 Supervision of other normal 03/18/2014 11/01/2015 Cholecystitis with cholelithiasis 02/09/2013 03/18/2014 Goiter, nontoxic, multinodular 01/29/2013 0 09/11/2021 Overview: Repeat US due 07/2013. Pelvic pain 06/30/2012 03/18/2014 Overview: Treated for PID Depression 07/02/2009 03/18/2014 Postconcussion syndrome 12/29/2007 03/18/20 14 Sprain of thoracic region 10/30/20072013 Dysmenorrhea 10/04/2006 03/18/2014 Abdominal pain, left lower quadrant 10/04/2006 03/18/2014 documented as of this encounter (statuses as of 06/01/2022) [facility] of Past illness Narrative* Problem Noted Date Resolved Date Migraine without aura, intra ctable, without status migrainosus 10/24/2018 08/17/2021 Chronic migraine 07/10/2018 08/17/2021 PIH ( induced hypertension) 11/05/2015 01/13/2016 with 33 completed weeks gestation 10/1401/13/2016 Anxiety disorder affecting , antepartum 11/01/2015 01/13/2016 Overview: Currently on Buspar; increased to tid at 30 weeks (10/08/15) headache, antepartum 11/01/2015 0 01/13/2016 Overview: Tx with fioricet labor in third trimester 10/31/2015 01/13/2016 Elevated BP 10/31/2015 01/13/2016 Supervision of normal 07/16/2015 11/01/2015 Encounter for supervision of normal in third trimester 05/26/2015 01/13/2016 Short interval between pregn ancies affecting in second trimester, antepartum 04/28/2015 01/13/2016 Overview: Delivered previous baby in september 2014. First trimester 04/21/20152015 Acute pain of left knee 07/29/2014 04/04/20 22 Supervision of other normal 03/18/2014 11/01/2015 Cholecystitis with cholelithiasis 02/09/2013 03/18/2014 Goiter, nontoxic, multinodular 01/29/2013 0 09/11/2021 Overview: Repeat US due 07/2013. Pelvic pain 06/30/2012 03/18/2014 Overview: Treated for PID Depression 07/02/2009 03/18/2014 Postconcussion syndrome 12/29/2007 03/18/20 14 Sprain of thoracic region 10/30/20072013 Dysmenorrhea 10/04/2006 03/18/2014 Abdominal pain, left lower quadrant 10/04/2006 03/18/2014 documented as of this encounter (statuses as of 06/09/2022) [facility] of Past illness Narrative* Problem Noted Date Resolved Date Migraine without aura, intra ctable, without status migrainosus 10/24/2018 08/17/2021 Chronic migraine 07/10/2018 08/17/2021 PIH ( induced hypertension) 11/05/2015 01/13/2016 with 33 completed weeks gestation 10/1401/13/2016 Anxiety disorder affecting , antepartum 11/01/2015 01/13/2016 Overview: Currently on Buspar; increased to tid at 30 weeks (10/08/15) headache, antepartum 11/01/2015 0 01/13/2016 Overview: Tx with fioricet labor in third trimester 10/31/2015 01/13/2016 Elevated BP 10/31/2015 01/13/2016 Supervision of normal 07/16/2015 11/01/2015 Encounter for supervision of normal in third trimester 05/26/2015 01/13/2016 Short interval between pregn ancies affecting in second trimester, antepartum 04/28/2015 01/13/2016 Overview: Delivered previous baby in september 2014. First trimester 04/21/20152015 Acute pain of left knee 07/29/2014 08/18/19 22 Supervision of other normal 03/18/2014 11/01/2015 Cholecystitis with cholelithiasis 02/09/2013 03/18/2014 Goiter, nontoxic, multinodular 01/29/2013 0 09/11/2021 Overview: Repeat US due 07/2013. Pelvic pain 06/30/2012 03/18/2014 Overview: Treated for PID Depression 07/02/2009 03/18/2014 Postconcussion syndrome 12/29/2007 03/18/20 14 Sprain of thoracic region 10/30/20072013 Dysmenorrhea 10/04/2006 03/18/2014 Abdominal pain, left lower quadrant 10/04/2006 03/18/2014 documented as of this encounter (statuses as of 06/09/2022) [facility] Past illness Narrative* Problem Noted Date Resolved Date Migraine without aura, intra ctable, without status migrainosus 10/24/2018 08/17/2021 Chronic migraine 07/10/2018 08/17/2021 PIH ( induced hypertension) 11/05/2015 01/13/2016 with 33 completed weeks gestation 10/1401/13/2016 Anxiety disorder affecting , antepartum 11/01/2015 01/13/2016 Overview: Currently on Buspar; increased to tid at 30 weeks (10/08/15) headache, antepartum 11/01/2015 0 01/13/2016 Overview: Tx with fioricet labor in third trimester 10/31/2015 01/13/2016 Elevated BP 10/31/2015 01/13/2016 Supervision of normal 07/16/2015 11/01/2015 Encounter for supervision of normal in third trimester 05/26/2015 01/13/2016 Short interval between pregn ancies affecting in second trimester, antepartum 04/28/2015 01/13/2016 Overview: Delivered previous baby in september 2014. First trimester 04/21/20152015 Acute pain of left knee 07/29/2014 08/18/19 22 Supervision of other normal 03/18/2014 11/01/2015 Cholecystitis with cholelithiasis 02/09/2013 03/18/2014 Goiter, nontoxic, multinodular 01/29/2013 0 09/11/2021 Overview: Repeat US due 07/2013. Pelvic pain 06/30/2012 03/18/2014 Overview: Treated for PID Depression 07/02/2009 03/18/2014 Postconcussion syndrome 12/29/2007 03/18/20 14 Sprain of thoracic region 10/30/20072013 Dysmenorrhea 10/04/2006 03/18/2014 Abdominal pain, left lower quadrant 10/04/2006 03/18/2014 documented as of this encounter (statuses as of 06/11/2022) [facility] Past [facility] Narrative* Problem Noted Date Resolved Date Migraine without aura, intra ctable, without status migrainosus 10/24/2018 08/17/2021 Chronic migraine 07/10/2018 08/17/2021 PIH ( induced hypertension) 11/05/2015 01/13/2016 with 33 completed weeks gestation 10/1401/13/2016 Anxiety disorder affecting , antepartum 11/01/2015 01/13/2016 Overview: Currently on Buspar; increased to tid at 30 weeks (10/08/15) headache, antepartum 11/01/2015 0 01/13/2016 Overview: Tx with fioricet labor in third trimester 10/31/2015 01/13/2016 Elevated BP 10/31/2015 01/13/2016 Supervision of normal 07/16/2015 11/01/2015 Encounter for supervision of normal in third trimester 05/26/2015 01/13/2016 Short interval between pregn ancies affecting in second trimester, antepartum 04/28/2015 01/13/2016 Overview: Delivered previous baby in september 2014. First trimester 04/21/20152015 Acute pain of left knee 07/29/2014 08/18/19 22 Supervision of other normal 03/18/2014 11/01/2015 Cholecystitis with cholelithiasis 02/09/2013 03/18/2014 Goiter, nontoxic, multinodular 01/29/2013 0 09/11/2021 Overview: Repeat US due 07/2013. Pelvic pain 06/30/2012 03/18/2014 Overview: Treated for PID Depression 07/02/2009 03/18/2014 Postconcussion syndrome 12/29/2007 03/18/20 14 Sprain of thoracic region 10/30/20072013 Dysmenorrhea 10/04/2006 03/18/2014 Abdominal pain, left lower quadrant 10/04/2006 03/18/2014 documented as of this encounter (statuses as of 06/15/2022) [facility] Past illness Narrative* Problem Noted Date Resolved Date Migraine without aura, intra ctable, without status migrainosus 10/24/2018 08/17/2021 Chronic migraine 07/10/2018 08/17/2021 PIH ( induced hypertension) 11/05/2015 01/13/2016 with 33 completed weeks gestation 10/1401/13/2016 Anxiety disorder affecting , antepartum 11/01/2015 01/13/2016 Overview: Currently on Buspar; increased to tid at 30 weeks (10/08/15) headache, antepartum 11/01/2015 0 01/13/2016 Overview: Tx with fioricet labor in third trimester 10/31/2015 01/13/2016 Elevated BP 10/31/2015 01/13/2016 Supervision of normal 07/16/2015 11/01/2015 Encounter for supervision of normal in third trimester 05/26/2015 01/13/2016 Short interval between pregn ancies affecting in second trimester, antepartum 04/28/2015 01/13/2016 Overview: Delivered previous baby in september 2014. First trimester 04/21/20152015 Acute pain of left knee 07/29/2014 08/18/19 22 Supervision of other normal 03/18/2014 11/01/2015 Cholecystitis with cholelithiasis 02/09/2013 03/18/2014 Goiter, nontoxic, multinodular 01/29/2013 0 09/11/2021 Overview: Repeat US due 07/2013. Pelvic pain 06/30/2012 03/18/2014 Overview: Treated for PID Depression 07/02/2009 03/18/2014 Postconcussion syndrome 12/29/2007 03/18/20 14 Sprain of thoracic region 10/30/20072013 Dysmenorrhea 10/04/2006 03/18/2014 Abdominal pain, left lower quadrant 10/04/2006 03/18/2014 documented as of this encounter (statuses as of 06/15/2022) [facility] Past [facility] Narrative* Problem Noted Date Resolved Date Migraine without aura, intra ctable, without status migrainosus 10/24/2018 08/17/2021 Chronic migraine 07/10/2018 08/17/2021 PIH ( induced hypertension) 11/05/2015 01/13/2016 with 33 completed weeks gestation 10/1401/13/2016 Anxiety disorder affecting , antepartum 11/01/2015 01/13/2016 Overview: Currently on Buspar; increased to tid at 30 weeks (10/08/15) headache, antepartum 11/01/2015 0 01/13/2016 Overview: Tx with fioricet labor in third trimester 10/31/2015 01/13/2016 Elevated BP 10/31/2015 01/13/2016 Supervision of normal 07/16/2015 11/01/2015 Encounter for supervision of normal in third trimester 05/26/2015 01/13/2016 Short interval between pregn ancies affecting in second trimester, antepartum 04/28/2015 01/13/2016 Overview: Delivered previous baby in september 2014. First trimester 04/21/20152015 Acute pain of left knee 07/29/2014 08/18/19 22 Supervision of other normal 03/18/2014 11/01/2015 Cholecystitis with cholelithiasis 02/09/2013 03/18/2014 Goiter, nontoxic, multinodular 01/29/2013 0 09/11/2021 Overview: Repeat US due 07/2013. Pelvic pain 06/30/2012 03/18/2014 Overview: Treated for PID Depression 07/02/2009 03/18/2014 Postconcussion syndrome 12/29/2007 03/18/20 14 Sprain of thoracic region 10/30/20072013 Dysmenorrhea 10/04/2006 03/18/2014 Abdominal pain, left lower quadrant 10/04/2006 03/18/2014 documented as of this encounter (statuses as of 07/15/2022) [facility] Past [facility] Narrative* Problem Noted Date Resolved Date Migraine without aura, intra ctable, without status migrainosus 10/24/2018 08/17/2021 Chronic migraine 07/10/2018 08/17/2021 PIH ( induced hypertension) 11/05/2015 01/13/2016 with 33 completed weeks gestation 10/1401/13/2016 Anxiety disorder affecting , antepartum 11/01/2015 01/13/2016 Overview: Currently on Buspar; increased to tid at 30 weeks (10/08/15) headache, antepartum 11/01/2015 0 01/13/2016 Overview: Tx with fioricet labor in third trimester 10/31/2015 01/13/2016 Elevated BP 10/31/2015 01/13/2016 Supervision of normal 07/16/2015 11/01/2015 Encounter for supervision of normal in third trimester 05/26/2015 01/13/2016 Short interval between pregn ancies affecting in second trimester, antepartum 04/28/2015 01/13/2016 Overview: Delivered previous baby in september 2014. First trimester 04/21/20152015 Acute pain of left knee 07/29/2014 08/18/19 22 Supervision of other normal 03/18/2014 11/01/2015 Cholecystitis with cholelithiasis 02/09/2013 03/18/2014 Goiter, nontoxic, multinodular 01/29/2013 0 09/11/2021 Overview: Repeat US due 07/2013. Pelvic pain 06/30/2012 03/18/2014 Overview: Treated for PID Depression 07/02/2009 03/18/2014 Postconcussion syndrome 12/29/2007 03/18/20 14 Sprain of thoracic region 10/30/20072013 Dysmenorrhea 10/04/2006 03/18/2014 Abdominal pain, left lower quadrant 10/04/2006 03/18/2014 documented as of this encounter (statuses as of 08/03/2022) [facility] Past [facility] Narrative* Problem Noted Date Resolved Date Migraine without aura, intra ctable, without status migrainosus 10/24/2018 08/17/2021 Chronic migraine 07/10/2018 08/17/2021 PIH ( induced hypertension) 11/05/2015 01/13/2016 with 33 completed weeks gestation 10/1401/13/2016 Anxiety disorder affecting , antepartum 11/01/2015 01/13/2016 Overview: Currently on Buspar; increased to tid at 30 weeks (10/08/15) headache, antepartum 11/01/2015 0 01/13/2016 Overview: Tx with fioricet labor in third trimester 10/31/2015 01/13/2016 Elevated BP 10/31/2015 01/13/2016 Supervision of normal 07/16/2015 11/01/2015 Encounter for supervision of normal in third trimester 05/26/2015 01/13/2016 Short interval between pregn ancies affecting in second trimester, antepartum 04/28/2015 01/13/2016 Overview: Delivered previous baby in september 2014. First trimester 04/21/20152015 Acute pain of left knee 07/29/2014 08/18/19 22 Supervision of other normal 03/18/2014 11/01/2015 Cholecystitis with cholelithiasis 02/09/2013 03/18/2014 Goiter, nontoxic, multinodular 01/29/2013 0 09/11/2021 Overview: Repeat US due 07/2013. Pelvic pain 06/30/2012 03/18/2014 Overview: Treated for PID Depression 07/02/2009 03/18/2014 Postconcussion syndrome 12/29/2007 03/18/20 14 Sprain of thoracic region 10/30/20072013 Dysmenorrhea 10/04/2006 03/18/2014 Abdominal pain, left lower quadrant 10/04/2006 03/18/2014 documented as of this encounter (statuses as of 08/14/2022) [facility] History of Past illness Narrative* Problem Noted Date Resolved Date Migraine without aura, intra ctable, without status migrainosus 10/24/2018 08/17/2021 Chronic migraine 07/10/2018 08/17/2021 PIH ( induced hypertension) 11/05/2015 01/13/2016 with 33 completed weeks gestation 10/1401/13/2016 Anxiety disorder affecting , antepartum 11/01/2015 01/13/2016 Overview: Currently on Buspar; increased to tid at 30 weeks (10/08/15) headache, antepartum 11/01/2015 0 01/13/2016 Overview: Tx with fioricet labor in third trimester 10/31/2015 01/13/2016 Elevated BP 10/31/2015 01/13/2016 Supervision of normal 07/16/2015 11/01/2015 Encounter for supervision of normal in third trimester 05/26/2015 01/13/2016 Short interval between pregn ancies affecting in second trimester, antepartum 04/28/2015 01/13/2016 Overview: Delivered previous baby in september 2014. First trimester 04/21/20152015 Acute pain of left knee 07/29/2014 08/18/19 Supervision of other normal 03/18/2014 11/01/2015 Cholecystitis with cholelithiasis 02/09/2013 03/18/2014 Goiter, nontoxic, multinodular 01/29/2013 0 09/11/2021 Overview: Repeat US due 07/2013. Pelvic pain 06/30/2012 03/18/2014 Overview: Treated for PID Depression 07/02/2009 03/18/2014 Postconcussion syndrome 12/29/2007 03/18/20 14 Sprain of thoracic region 10/30/20072013 Dysmenorrhea 10/04/2006 03/18/2014 Abdominal pain, left lower quadrant 10/04/2006 03/18/2014 documented as of this encounter (statuses as of 10/29/2022) [facility] History of Past illness Narrative* Problem Noted Date Resolved Date Migraine without aura, intra ctable, without status migrainosus 10/24/2018 08/17/2021 Chronic migraine 07/10/2018 08/17/2021 PIH ( induced hypertension) 11/05/2015 01/13/2016 with 33 completed weeks gestation 10/1401/13/2016 Anxiety disorder affecting , antepartum 11/01/2015 01/13/2016 Overview: Currently on Buspar; increased to tid at 30 weeks (10/08/15) headache, antepartum 11/01/2015 0 01/13/2016 Overview: Tx with fioricet labor in third trimester 10/31/2015 01/13/2016 Elevated BP 10/31/2015 01/13/2016 Supervision of normal 07/16/2015 11/01/2015 Encounter for supervision of normal in third trimester 05/26/2015 01/13/2016 Short interval between pregn ancies affecting in second trimester, antepartum 04/28/2015 01/13/2016 Overview: Delivered previous baby in september 2014. First trimester 04/21/20152015 Acute pain of left knee 07/29/2014 08/18/19 Supervision of other normal 03/18/2014 11/01/2015 Cholecystitis with cholelithiasis 02/09/2013 03/18/2014 Goiter, nontoxic, multinodular 01/29/2013 0 09/11/2021 Overview: Repeat US due 07/2013. Pelvic pain 06/30/2012 03/18/2014 Overview: Treated for PID Depression 07/02/2009 03/18/2014 Postconcussion syndrome 12/29/2007 03/18/20 14 Sprain of thoracic region 10/30/20072013 Dysmenorrhea 10/04/2006 03/18/2014 Abdominal pain, left lower quadrant 10/04/2006 03/18/2014 documented as of this encounter (statuses as of 11/03/2022) [facility] History of Past illness Narrative* Problem Noted Date Resolved Date Migraine without aura, intra ctable, without status migrainosus 10/24/2018 08/17/2021 Chronic migraine 07/10/2018 08/17/2021 PIH ( induced hypertension) 11/05/2015 01/13/2016 with 33 completed weeks gestation 10/1401/13/2016 Anxiety disorder affecting , antepartum 11/01/2015 01/13/2016 Overview: Currently on Buspar; increased to tid at 30 weeks (10/08/15) headache, antepartum 11/01/2015 0 01/13/2016 Overview: Tx with fioricet labor in third trimester 10/31/2015 01/13/2016 Elevated BP 10/31/2015 01/13/2016 Supervision of normal 07/16/2015 11/01/2015 Encounter for supervision of normal in third trimester 05/26/2015 01/13/2016 Short interval between pregn ancies affecting in second trimester, antepartum 04/28/2015 01/13/2016 Overview: Delivered previous baby in september 2014. First trimester 04/21/20152015 Acute pain of left knee 07/29/2014 08/18/19 Supervision of other normal 03/18/2014 11/01/2015 Cholecystitis with cholelithiasis 02/09/2013 03/18/2014 Goiter, nontoxic, multinodular 01/29/2013 0 09/11/2021 Overview: Repeat US due 07/2013. Pelvic pain 06/30/2012 03/18/2014 Overview: Treated for PID Depression 07/02/2009 03/18/2014 Postconcussion syndrome 12/29/2007 03/18/20 14 Sprain of thoracic region 10/30/20072013 Dysmenorrhea 10/04/2006 03/18/2014 Abdominal pain, left lower quadrant 10/04/2006 03/18/2014 documented as of this encounter (statuses as of 11/13/2022) [facility] History of Past illness Narrative* Problem Noted Date Resolved Date Migraine without aura, intra ctable, without status migrainosus 10/24/2018 08/17/2021 Chronic migraine 07/10/2018 08/17/2021 PIH ( induced hypertension) 11/05/2015 01/13/2016 with 33 completed weeks gestation 10/1401/13/2016 Anxiety disorder affecting , antepartum 11/01/2015 01/13/2016 Overview: Currently on Buspar; increased to tid at 30 weeks (10/08/15) headache, antepartum 11/01/2015 0 01/13/2016 Overview: Tx with fioricet labor in third trimester 10/31/2015 01/13/2016 Elevated BP 10/31/2015 01/13/2016 Supervision of normal 07/16/2015 11/01/2015 Encounter for supervision of normal in third trimester 05/26/2015 01/13/2016 Short interval between pregn ancies affecting in second trimester, antepartum 04/28/2015 01/13/2016 Overview: Delivered previous baby in september 2014. First trimester 04/21/20152015 Acute pain of left knee 07/29/2014 08/18/19 Supervision of other normal 03/18/2014 11/01/2015 Cholecystitis with cholelithiasis 02/09/2013 03/18/2014 Goiter, nontoxic, multinodular 01/29/2013 0 09/11/2021 Overview: Repeat US due 07/2013. Pelvic pain 06/30/2012 03/18/2014 Overview: Treated for PID Depression 07/02/2009 03/18/2014 Postconcussion syndrome 12/29/2007 03/18/20 14 Sprain of thoracic region 10/30/20072013 Dysmenorrhea 10/04/2006 03/18/2014 Abdominal pain, left lower quadrant 10/04/2006 03/18/2014 documented as of this encounter (statuses as of 11/17/2022) [facility] History of Past illness Narrative* Problem Noted Date Diagnosed Date Resolved Date Migraine without aura, intra ctable, without status migrainosus 10/24/2018 08/17/2021 Chronic migraine 07/10/2018 08/17/2021 PIH ( induced hypertension) 11/05/2015 01/13/2016 with 33 completed weeks gestation 11/01/2015 01/13/2016 Anxiety disorder affecting p regnancy, antepartum 11/01/2015 01/13/2016 Overview: Currently on Buspar; increased to tid at 30 weeks (10/08/15) headache, antepartum 11/01/2015 01/13/2016 Overview: Tx with fioricet labor in third trimester 10/31/2015 01/13/2016 Elevated BP 10/31/2015 01/13/2016 Supervision of normal 07/16/2015 11/01/2015 Encounter for supervision of normal in third trimester 05/26/2015 01/13/2016 Short interval between pregn ancies affecting in second trimester, antepartum 04/28/2015 01/13/2016 Overview: Delivered previous baby in september 2014. First trimester 04/21/2015 Acute pain of left knee 07/29/201408/2021 Supervision of other normal 03/18/2014 11/01/2015 Cholecystitis with cholelithiasis 02/09/2013 03/18/2014 Goiter, nontoxic, multinodular 01/29/2013 09/11/2021 Overview: Repeat US due 07/2013. Pelvic pain 06/30/2012 03/18/2014 Overview: Treated for PID Depression 07/02/2009 03/18/2014 Postconcussion syndrome 12/29/200707/2013 Sprain of thoracic region 10/30/2007 Dysmenorrhea 10/04/2006 03/18/2014 Abdominal pain, left lower quadrant 10/04/2006 03/18/2014 documented as of this encounter (statuses as of 12/06/2022) [facility] History of Past illness Narrative* Problem Noted Date Diagnosed Date Resolved Date Migraine without aura, intra ctable, without status migrainosus 10/24/2018 08/17/2021 Chronic migraine 07/10/2018 08/17/2021 PIH ( induced hypertension) 11/05/2015 01/13/2016 with 33 completed weeks gestation 11/01/2015 01/13/2016 Anxiety disorder affecting p regnancy, antepartum 11/01/2015 01/13/2016 Overview: Currently on Buspar; increased to tid at 30 weeks (10/08/15) headache, antepartum 11/01/2015 01/13/2016 Overview: Tx with fioricet labor in third trimester 10/31/2015 01/13/2016 Elevated BP 10/31/2015 01/13/2016 Supervision of normal 07/16/2015 11/01/2015 Encounter for supervision of normal in third trimester 05/26/2015 01/13/2016 Short interval between pregn ancies affecting in second trimester, antepartum 04/28/2015 01/13/2016 Overview: Delivered previous baby in september 2014. First trimester 04/21/2015 Acute pain of left knee 07/29/201408/2021 Supervision of other normal 03/18/2014 11/01/2015 Cholecystitis with cholelithiasis 02/09/2013 03/18/2014 Goiter, nontoxic, multinodular 01/29/2013 09/11/2021 Overview: Repeat US due 07/2013. Pelvic pain 06/30/2012 03/18/2014 Overview: Treated for PID Depression 07/02/2009 03/18/2014 Postconcussion syndrome 12/29/200707/2013 Sprain of thoracic region 10/30/2007 Dysmenorrhea 10/04/2006 03/18/2014 Abdominal pain, left lower quadrant 10/04/2006 03/18/2014 documented as of this encounter (statuses as of 12/14/2022) [facility] History of Past illness Narrative* Problem Noted Date Diagnosed Date Resolved Date Migraine without aura, intra ctable, without status migrainosus 10/24/2018 08/17/2021 Chronic migraine 07/10/2018 08/17/2021 PIH ( induced hypertension) 11/05/2015 01/13/2016 with 33 completed weeks gestation 11/01/2015 01/13/2016 Anxiety disorder affecting p regnancy, antepartum 11/01/2015 01/13/2016 Overview: Currently on Buspar; increased to tid at 30 weeks (10/08/15) headache, antepartum 11/01/2015 01/13/2016 Overview: Tx with fioricet labor in third trimester 10/31/2015 01/13/2016 Elevated BP 10/31/2015 01/13/2016 Supervision of normal 07/16/2015 11/01/2015 Encounter for supervision of normal in third trimester 05/26/2015 01/13/2016 Short interval between pregn ancies affecting in second trimester, antepartum 04/28/2015 01/13/2016 Overview: Delivered previous baby in september 2014. First trimester 04/21/2015 Acute pain of left knee 07/29/201408/2021 Supervision of other normal 03/18/2014 11/01/2015 Cholecystitis with cholelithiasis 02/09/2013 03/18/2014 Goiter, nontoxic, multinodular 01/29/2013 09/11/2021 Overview: Repeat US due 07/2013. Pelvic pain 06/30/2012 03/18/2014 Overview: Treated for PID Depression 07/02/2009 03/18/2014 Postconcussion syndrome 12/29/200707/2013 Sprain of thoracic region 10/30/2007 Dysmenorrhea 10/04/2006 03/18/2014 Abdominal pain, left lower quadrant 10/04/2006 03/18/2014 documented as of this encounter (statuses as of 12/21/2022) [facility] History of Past illness Narrative* Problem Noted Date Diagnosed Date Resolved Date Migraine without aura, intra ctable, without status migrainosus 10/24/2018 08/17/2021 Chronic migraine 07/10/2018 08/17/2021 PIH ( induced hypertension) 11/05/2015 01/13/2016 with 33 completed weeks gestation 11/01/2015 01/13/2016 Anxiety disorder affecting p regnancy, antepartum 11/01/2015 01/13/2016 Overview: Currently on Buspar; increased to tid at 30 weeks (10/08/15) headache, antepartum 11/01/2015 01/13/2016 Overview: Tx with fioricet labor in third trimester 10/31/2015 01/13/2016 Elevated BP 10/31/2015 01/13/2016 Supervision of normal 07/16/2015 11/01/2015 Encounter for supervision of normal in third trimester 05/26/2015 01/13/2016 Short interval between pregn ancies affecting in second trimester, antepartum 04/28/2015 01/13/2016 Overview: Delivered previous baby in september 2014. First trimester 04/21/2015 Acute pain of left knee 07/29/201408/2021 Supervision of other normal 03/18/2014 11/01/2015 Cholecystitis with cholelithiasis 02/09/2013 03/18/2014 Goiter, nontoxic, multinodular 01/29/2013 09/11/2021 Overview: Repeat US due 07/2013. Pelvic pain 06/30/2012 03/18/2014 Overview: Treated for PID Depression 07/02/2009 03/18/2014 Postconcussion syndrome 12/29/200707/2013 Sprain of thoracic region 10/30/2007 Dysmenorrhea 10/04/2006 03/18/2014 Abdominal pain, left lower quadrant 10/04/2006 03/18/2014 documented as of this encounter (statuses as of 12/24/2022) [facility] of Past illness Narrative* Problem Noted Date Diagnosed Date Resolved Date Migraine without aura, intra ctable, without status migrainosus 10/24/2018 08/17/2021 Chronic migraine 07/10/2018 08/17/2021 PIH ( induced hypertension) 11/05/2015 01/13/2016 with 33 completed weeks gestation 11/01/2015 01/13/2016 Anxiety disorder affecting p regnancy, antepartum 11/01/2015 01/13/2016 Overview: Currently on Buspar; increased to tid at 30 weeks (10/08/15) headache, antepartum 11/01/2015 01/13/2016 Overview: Tx with fioricet labor in third trimester 10/31/2015 01/13/2016 Elevated BP 10/31/2015 01/13/2016 Supervision of normal 07/16/2015 11/01/2015 Encounter for supervision of normal in third trimester 05/26/2015 01/13/2016 Short interval between pregn ancies affecting in second trimester, antepartum 04/28/2015 01/13/2016 Overview: Delivered previous baby in september 2014. First trimester 04/21/2015 Acute pain of left knee 07/29/201408/2021 Supervision of other normal 03/18/2014 11/01/2015 Cholecystitis with cholelithiasis 02/09/2013 03/18/2014 Goiter, nontoxic, multinodular 01/29/2013 09/11/2021 Overview: Repeat US due 07/2013. Pelvic pain 06/30/2012 03/18/2014 Overview: Treated for PID Depression 07/02/2009 03/18/2014 Postconcussion syndrome 12/29/200707/2013 Sprain of thoracic region 10/30/2007 Dysmenorrhea 10/04/2006 03/18/2014 Abdominal pain, left lower quadrant 10/04/2006 03/18/2014 documented as of this encounter (statuses as of 02/01/2023) [facility] History of Past illness Narrative* Problem Noted Date Diagnosed Date Resolved Date Migraine without aura, intra ctable, without status migrainosus 10/24/2018 08/17/2021 Chronic migraine 07/10/2018 08/17/2021 PIH ( induced hypertension) 11/05/2015 01/13/2016 with 33 completed weeks gestation 11/01/2015 01/13/2016 Anxiety disorder affecting p regnancy, antepartum 11/01/2015 01/13/2016 Overview: Currently on Buspar; increased to tid at 30 weeks (10/08/15) headache, antepartum 11/01/2015 01/13/2016 Overview: Tx with fioricet labor in third trimester 10/31/2015 01/13/2016 Elevated BP 10/31/2015 01/13/2016 Supervision of normal 07/16/2015 11/01/2015 Encounter for supervision of normal in third trimester 05/26/2015 01/13/2016 Short interval between pregn ancies affecting in second trimester, antepartum 04/28/2015 01/13/2016 Overview: Delivered previous baby in september 2014. First trimester 04/21/2015 Acute pain of left knee 07/29/2014 0408/2021 Supervision of other normal 03/18/2014 11/01/2015 Cholecystitis with cholelithiasis 02/09/2013 03/18/2014 Goiter, nontoxic, multinodular 01/29/2013 09/11/2021 Overview: Repeat US due 07/2013. Pelvic pain 06/30/2012 03/18/2014 Overview: Treated for PID Depression 07/02/2009 03/18/2014 Postconcussion syndrome 12/29/200707/2013 Sprain of thoracic region 10/30/2007 Dysmenorrhea 10/04/2006 03/18/2014 Abdominal pain, left lower quadrant 10/04/2006 03/18/2014 documented as of this encounter (statuses as of 02/22/2023) [facility] Past illness Narrative* Problem Noted Date Diagnosed Date Resolved Date Migraine without aura, intra ctable, without status migrainosus 10/24/2018 08/17/2021 Chronic migraine 07/10/2018 08/17/2021 PIH ( induced hypertension) 11/05/2015 01/13/2016 with 33 completed weeks gestation 11/01/2015 01/13/2016 Anxiety disorder affecting p regnancy, antepartum 11/01/2015 01/13/2016 Overview: Currently on Buspar; increased to tid at 30 weeks (10/08/15) headache, antepartum 11/01/2015 01/13/2016 Overview: Tx with fioricet labor in third trimester 10/31/2015 01/13/2016 Elevated BP 10/31/2015 01/13/2016 Supervision of normal 07/16/2015 11/01/2015 Encounter for supervision of normal in third trimester 05/26/2015 01/13/2016 Short interval between pregn ancies affecting in second trimester, antepartum 04/28/2015 01/13/2016 Overview: Delivered previous baby in september 2014. First trimester 04/21/2015 Acute pain of left knee 07/29/2014 04/08/2021 Supervision of other normal 03/18/2014 11/01/2015 Cholecystitis with cholelithiasis 02/09/2013 03/18/2014 Goiter, nontoxic, multinodular 01/29/2013 09/11/2021 Overview: Repeat US due 07/2013. Pelvic pain 06/30/2012 03/18/2014 Overview: Treated for PID Depression 07/02/2009 03/18/2014 Postconcussion syndrome 12/29/200707/2013 Sprain of thoracic region 10/30/2007 Dysmenorrhea 10/04/2006 03/18/2014 Abdominal pain, left lower quadrant 10/04/2006 03/18/2014 documented as of this encounter (statuses as of 02/24/2023) [facility] Past illness Narrative* Problem Noted Date Diagnosed Date Resolved Date Migraine without aura, intra ctable, without status migrainosus 10/24/2018 08/17/2021 Chronic migraine 07/10/2018 08/17/2021 PIH ( induced hypertension) 11/05/2015 01/13/2016 with 33 completed weeks gestation 11/01/2015 01/13/2016 Anxiety disorder affecting p regnancy, antepartum 11/01/2015 01/13/2016 Overview: Currently on Buspar; increased to tid at 30 weeks (10/08/15) headache, antepartum 11/01/2015 01/13/2016 Overview: Tx with fioricet labor in third trimester 10/31/2015 01/13/2016 Elevated BP 10/31/2015 01/13/2016 Supervision of normal 07/16/2015 11/01/2015 Encounter for supervision of normal in third trimester 05/26/2015 01/13/2016 Short interval between pregn ancies affecting in second trimester, antepartum 04/28/2015 01/13/2016 Overview: Delivered previous baby in september 2014. First trimester 04/21/2015 Acute pain of left knee 07/29/2014 0408/2021 Supervision of other normal 03/18/2014 11/01/2015 Cholecystitis with cholelithiasis 02/09/2013 03/18/2014 Goiter, nontoxic, multinodular 01/29/2013 09/11/2021 Overview: Repeat US due 07/2013. Pelvic pain 06/30/2012 03/18/2014 Overview: Treated for PID Depression 07/02/2009 03/18/2014 Postconcussion syndrome 12/29/200707/2013 Sprain of thoracic region 10/30/2007 Dysmenorrhea 10/04/2006 03/18/2014 Abdominal pain, left lower quadrant 10/04/2006 03/18/2014 documented as of this encounter (statuses as of 03/02/2023) [facility] Past illness Narrative* Problem Noted Date Diagnosed Date Resolved Date Migraine without aura, intra ctable, without status migrainosus 10/24/2018 08/17/2021 Chronic migraine 07/10/2018 08/17/2021 PIH ( induced hypertension) 11/05/2015 01/13/2016 with 33 completed weeks gestation 11/01/2015 01/13/2016 Anxiety disorder affecting p regnancy, antepartum 11/01/2015 01/13/2016 Overview: Currently on Buspar; increased to tid at 30 weeks (10/08/15) headache, antepartum 11/01/2015 01/13/2016 Overview: Tx with fioricet labor in third trimester 10/31/2015 01/13/2016 Elevated BP 10/31/2015 01/13/2016 Supervision of normal 07/16/2015 11/01/2015 Encounter for supervision of normal in third trimester 05/26/2015 01/13/2016 Short interval between pregn ancies affecting in second trimester, antepartum 04/28/2015 01/13/2016 Overview: Delivered previous baby in september 2014. First trimester 04/21/2015 Acute pain of left knee 07/29/201408/2021 Supervision of other normal 03/18/2014 11/01/2015 Cholecystitis with cholelithiasis 02/09/2013 03/18/2014 Goiter, nontoxic, multinodular 01/29/2013 09/11/2021 Overview: Repeat US due 07/2013. Pelvic pain 06/30/2012 03/18/2014 Overview: Treated for PID Depression 07/02/2009 03/18/2014 Postconcussion syndrome 12/29/200707/2013 Sprain of thoracic region 10/30/2007 Dysmenorrhea 10/04/2006 03/18/2014 Abdominal pain, left lower quadrant 10/04/2006 03/18/2014 documented as of this encounter (statuses as of 03/04/2023) [facility] Past illness Narrative* Problem Noted Date Diagnosed Date Resolved Date Migraine without aura, intra ctable, without status migrainosus 10/24/2018 08/17/2021 Chronic migraine 07/10/2018 08/17/2021 PIH ( induced hypertension) 11/05/2015 01/13/2016 with 33 completed weeks gestation 11/01/2015 01/13/2016 Anxiety disorder affecting p regnancy, antepartum 11/01/2015 01/13/2016 Overview: Currently on Buspar; increased to tid at 30 weeks (10/08/15) headache, antepartum 11/01/2015 01/13/2016 Overview: Tx with fioricet labor in third trimester 10/31/2015 01/13/2016 Elevated BP 10/31/2015 01/13/2016 Supervision of normal 07/16/2015 11/01/2015 Encounter for supervision of normal in third trimester 05/26/2015 01/13/2016 Short interval between pregn ancies affecting in second trimester, antepartum 04/28/2015 01/13/2016 Overview: Delivered previous baby in september 2014. First trimester 04/21/2015 Acute pain of left knee 07/29/201408/2021 Supervision of other normal 03/18/2014 11/01/2015 Cholecystitis with cholelithiasis 02/09/2013 03/18/2014 Goiter, nontoxic, multinodular 01/29/2013 09/11/2021 Overview: Repeat US due 07/2013. Pelvic pain 06/30/2012 03/18/2014 Overview: Treated for PID Depression 07/02/2009 03/18/2014 Postconcussion syndrome 12/29/200707/2013 Sprain of thoracic region 10/30/2007 Dysmenorrhea 10/04/2006 03/18/2014 Abdominal pain, left lower quadrant 10/04/2006 03/18/2014 documented as of this encounter (statuses as of 03/11/2023) [facility] Past [facility] Narrative* Problem Noted Date Diagnosed Date Resolved Date Migraine without aura, intra ctable, without status migrainosus 10/24/2018 08/17/2021 Chronic migraine 07/10/2018 08/17/2021 PIH ( induced hypertension) 11/05/2015 01/13/2016 with 33 completed weeks gestation 11/01/2015 01/13/2016 Anxiety disorder affecting p regnancy, antepartum 11/01/2015 01/13/2016 Overview: Currently on Buspar; increased to tid at 30 weeks (10/08/15) headache, antepartum 11/01/2015 01/13/2016 Overview: Tx with fioricet labor in third trimester 10/31/2015 01/13/2016 Elevated BP 10/31/2015 01/13/2016 Supervision of normal 07/16/2015 11/01/2015 Encounter for supervision of normal in third trimester 05/26/2015 01/13/2016 Short interval between pregn ancies affecting in second trimester, antepartum 04/28/2015 01/13/2016 Overview: Delivered previous baby in september 2014. First trimester 04/21/2015 Acute pain of left knee 07/29/201408/2021 Supervision of other normal 03/18/2014 11/01/2015 Cholecystitis with cholelithiasis 02/09/2013 03/18/2014 Goiter, nontoxic, multinodular 01/29/2013 09/11/2021 Overview: Repeat US due 07/2013. Pelvic pain 06/30/2012 03/18/2014 Overview: Treated for PID Depression 07/02/2009 03/18/2014 Postconcussion syndrome 12/29/200707/2013 Sprain of thoracic region 10/30/2007 Dysmenorrhea 10/04/2006 03/18/2014 Abdominal pain, left lower quadrant 10/04/2006 03/18/2014 documented as of this encounter (statuses as of 03/19/2023) [facility] Past [facility] Narrative* Problem Noted Date Diagnosed Date Resolved Date Migraine without aura, intra ctable, without status migrainosus 10/24/2018 08/17/2021 Chronic migraine 07/10/2018 08/17/2021 PIH ( induced hypertension) 11/05/2015 01/13/2016 with 33 completed weeks gestation 11/01/2015 01/13/2016 Anxiety disorder affecting p regnancy, antepartum 11/01/2015 01/13/2016 Overview: Currently on Buspar; increased to tid at 30 weeks (10/08/15) headache, antepartum 11/01/2015 01/13/2016 Overview: Tx with fioricet labor in third trimester 10/31/2015 01/13/2016 Elevated BP 10/31/2015 01/13/2016 Supervision of normal 07/16/2015 11/01/2015 Encounter for supervision of normal in third trimester 05/26/2015 01/13/2016 Short interval between pregn ancies affecting in second trimester, antepartum 04/28/2015 01/13/2016 Overview: Delivered previous baby in september 2014. First trimester 04/21/2015 Acute pain of left knee 07/29/201408/2021 Supervision of other normal 03/18/2014 11/01/2015 Cholecystitis with cholelithiasis 02/09/2013 03/18/2014 Goiter, nontoxic, multinodular 01/29/2013 09/11/2021 Overview: Repeat US due 07/2013. Pelvic pain 06/30/2012 03/18/2014 Overview: Treated for PID Depression 07/02/2009 03/18/2014 Postconcussion syndrome 12/29/200707/2013 Sprain of thoracic region 10/30/2007 Dysmenorrhea 10/04/2006 03/18/2014 Abdominal pain, left lower quadrant 10/04/2006 03/18/2014 documented as of this encounter (statuses as of 03/19/2023) [facility] History of Past illness Narrative* Problem Noted Date Diagnosed Date Resolved Date Migraine without aura, intra ctable, without status migrainosus 10/24/2018 08/17/2021 Chronic migraine 07/10/2018 08/17/2021 PIH ( induced hypertension) 11/05/2015 01/13/2016 with 33 completed weeks gestation 11/01/2015 01/13/2016 Anxiety disorder affecting p regnancy, antepartum 11/01/2015 01/13/2016 Overview: Currently on Buspar; increased to tid at 30 weeks (10/08/15) headache, antepartum 11/01/2015 01/13/2016 Overview: Tx with fioricet labor in third trimester 10/31/2015 01/13/2016 Elevated BP 10/31/2015 01/13/2016 Supervision of normal 07/16/2015 11/01/2015 Encounter for supervision of normal in third trimester 05/26/2015 01/13/2016 Short interval between pregn ancies affecting in second trimester, antepartum 04/28/2015 01/13/2016 Overview: Delivered previous baby in september 2014. First trimester 04/21/2015 Acute pain of left knee 07/29/201408/2021 Supervision of other normal 03/18/2014 11/01/2015 Cholecystitis with cholelithiasis 02/09/2013 03/18/2014 Goiter, nontoxic, multinodular 01/29/2013 09/11/2021 Overview: Repeat US due 07/2013. Pelvic pain 06/30/2012 03/18/2014 Overview: Treated for PID Depression 07/02/2009 03/18/2014 Postconcussion syndrome 12/29/200707/2013 Sprain of thoracic region 10/30/2007 Dysmenorrhea 10/04/2006 03/18/2014 Abdominal pain, left lower quadrant 10/04/2006 03/18/2014 documented as of this encounter (statuses as of 04/01/2023) [facility] History of Past illness Narrative* Problem Noted Date Diagnosed Date Resolved Date Migraine without aura, intra ctable, without status migrainosus 10/24/2018 08/17/2021 Chronic migraine 07/10/2018 08/17/2021 PIH ( induced hypertension) 11/05/2015 01/13/2016 with 33 completed weeks gestation 11/01/2015 01/13/2016 Anxiety disorder affecting p regnancy, antepartum 11/01/2015 01/13/2016 Overview: Currently on Buspar; increased to tid at 30 weeks (10/08/15) headache, antepartum 11/01/2015 01/13/2016 Overview: Tx with fioricet labor in third trimester 10/31/2015 01/13/2016 Elevated BP 10/31/2015 01/13/2016 Supervision of normal 07/16/2015 11/01/2015 Encounter for supervision of normal in third trimester 05/26/2015 01/13/2016 Short interval between pregn ancies affecting in second trimester, antepartum 04/28/2015 01/13/2016 Overview: Delivered previous baby in september 2014. First trimester 04/21/2015 Acute pain of left knee 07/29/201408/2021 Supervision of other normal 03/18/2014 11/01/2015 Cholecystitis with cholelithiasis 02/09/2013 03/18/2014 Goiter, nontoxic, multinodular 01/29/2013 09/11/2021 Overview: Repeat US due 07/2013. Pelvic pain 06/30/2012 03/18/2014 Overview: Treated for PID Depression 07/02/2009 03/18/2014 Postconcussion syndrome 12/29/200707/2013 Sprain of thoracic region 10/30/2007 Dysmenorrhea 10/04/2006 03/18/2014 Abdominal pain, left lower quadrant 10/04/2006 03/18/2014 documented as of this encounter (statuses as of 04/08/2023) [facility] History of Past illness Narrative* Problem Noted Date Diagnosed Date Resolved Date Migraine without aura, intra ctable, without status migrainosus 10/24/2018 08/17/2021 Chronic migraine 07/10/2018 08/17/2021 PIH ( induced hypertension) 11/05/2015 01/13/2016 with 33 completed weeks gestation 11/01/2015 01/13/2016 Anxiety disorder affecting p regnancy, antepartum 11/01/2015 01/13/2016 Overview: Currently on Buspar; increased to tid at 30 weeks (10/08/15) headache, antepartum 11/01/2015 01/13/2016 Overview: Tx with fioricet labor in third trimester 10/31/2015 01/13/2016 Elevated BP 10/31/2015 01/13/2016 Supervision of normal 07/16/2015 11/01/2015 Encounter for supervision of normal in third trimester 05/26/2015 01/13/2016 Short interval between pregn ancies affecting in second trimester, antepartum 04/28/2015 01/13/2016 Overview: Delivered previous baby in september 2014. First trimester 04/21/2015 Acute pain of left knee 07/29/201408/2021 Supervision of other normal 03/18/2014 11/01/2015 Cholecystitis with cholelithiasis 02/09/2013 03/18/2014 Goiter, nontoxic, multinodular 01/29/2013 09/11/2021 Overview: Repeat US due 07/2013. Pelvic pain 06/30/2012 03/18/2014 Overview: Treated for PID Depression 07/02/2009 03/18/2014 Postconcussion syndrome 12/29/200707/2013 Sprain of thoracic region 10/30/2007 Dysmenorrhea 10/04/2006 03/18/2014 Abdominal pain, left lower quadrant 10/04/2006 03/18/2014 documented as of this encounter (statuses as of 04/22/2023) [facility] History of Past illness Narrative* Problem Noted Date Diagnosed Date Resolved Date Migraine without aura, intra ctable, without status migrainosus 10/24/2018 08/17/2021 Chronic migraine 07/10/2018 08/17/2021 PIH ( induced hypertension) 11/05/2015 01/13/2016 with 33 completed weeks gestation 11/01/2015 01/13/2016 Anxiety disorder affecting p regnancy, antepartum 11/01/2015 01/13/2016 Overview: Currently on Buspar; increased to tid at 30 weeks (10/08/15) headache, antepartum 11/01/2015 01/13/2016 Overview: Tx with fioricet labor in third trimester 10/31/2015 01/13/2016 Elevated BP 10/31/2015 01/13/2016 Supervision of normal 07/16/2015 11/01/2015 Encounter for supervision of normal in third trimester 05/26/2015 01/13/2016 Short interval between pregn ancies affecting in second trimester, antepartum 04/28/2015 01/13/2016 Overview: Delivered previous baby in september 2014. First trimester 04/21/2015 Acute pain of left knee 07/29/201408/2021 Supervision of other normal 03/18/2014 11/01/2015 Cholecystitis with cholelithiasis 02/09/2013 03/18/2014 Goiter, nontoxic, multinodular 01/29/2013 09/11/2021 Overview: Repeat US due 07/2013. Pelvic pain 06/30/2012 03/18/2014 Overview: Treated for PID Depression 07/02/2009 03/18/2014 Postconcussion syndrome 12/29/200707/2013 Sprain of thoracic region 10/30/2007 Dysmenorrhea 10/04/2006 03/18/2014 Abdominal pain, left lower quadrant 10/04/2006 03/18/2014 documented as of this encounter (statuses as of 04/28/2023) [facility] History of Past illness Narrative* Problem Noted Date Diagnosed Date Resolved Date Migraine without aura, intra ctable, without status migrainosus 10/24/2018 08/17/2021 Chronic migraine 07/10/2018 08/17/2021 PIH ( induced hypertension) 11/05/2015 01/13/2016 with 33 completed weeks gestation 11/01/2015 01/13/2016 Anxiety disorder affecting p regnancy, antepartum 11/01/2015 01/13/2016 Overview: Currently on Buspar; increased to tid at 30 weeks (10/08/15) headache, antepartum 11/01/2015 01/13/2016 Overview: Tx with fioricet labor in third trimester 10/31/2015 01/13/2016 Elevated BP 10/31/2015 01/13/2016 Supervision of normal 07/16/2015 11/01/2015 Encounter for supervision of normal in third trimester 05/26/2015 01/13/2016 Short interval between pregn ancies affecting in second trimester, antepartum 04/28/2015 01/13/2016 Overview: Delivered previous baby in september 2014. First trimester 04/21/2015 Acute pain of left knee 07/29/201408/2021 Supervision of other normal 03/18/2014 11/01/2015 Cholecystitis with cholelithiasis 02/09/2013 03/18/2014 Goiter, nontoxic, multinodular 01/29/2013 09/11/2021 Overview: Repeat US due 07/2013. Pelvic pain 06/30/2012 03/18/2014 Overview: Treated for PID Depression 07/02/2009 03/18/2014 Postconcussion syndrome 12/29/200707/2013 Sprain of thoracic region 10/30/2007 Dysmenorrhea 10/04/2006 03/18/2014 Abdominal pain, left lower quadrant 10/04/2006 03/18/2014 documented as of this encounter (statuses as of 04/29/2023) [facility] History of Past illness Narrative* Problem Noted Date Diagnosed Date Resolved Date Migraine without aura, intra ctable, without status migrainosus 10/24/2018 08/17/2021 Chronic migraine 07/10/2018 08/17/2021 PIH ( induced hypertension) 11/05/2015 01/13/2016 with 33 completed weeks gestation 11/01/2015 01/13/2016 Anxiety disorder affecting p regnancy, antepartum 11/01/2015 01/13/2016 Overview: Currently on Buspar; increased to tid at 30 weeks (10/08/15) headache, antepartum 11/01/2015 01/13/2016 Overview: Tx with fioricet labor in third trimester 10/31/2015 01/13/2016 Elevated BP 10/31/2015 01/13/2016 Supervision of normal 07/16/2015 11/01/2015 Encounter for supervision of normal in third trimester 05/26/2015 01/13/2016 Short interval between pregn ancies affecting in second trimester, antepartum 04/28/2015 01/13/2016 Overview: Delivered previous baby in september 2014. First trimester 04/21/2015 Acute pain of left knee 07/29/2014 04/08/2021 Supervision of other normal 03/18/2014 11/01/2015 Cholecystitis with cholelithiasis 02/09/2013 03/18/2014 Goiter, nontoxic, multinodular 01/29/2013 09/11/2021 Overview: Repeat US due 07/2013. Pelvic pain 06/30/2012 03/18/2014 Overview: Treated for PID Depression 07/02/2009 03/18/2014 Postconcussion syndrome 12/29/200707/2013 Sprain of thoracic region 10/30/2007 Dysmenorrhea 10/04/2006 03/18/2014 Abdominal pain, left lower quadrant 10/04/2006 03/18/2014 documented as of this encounter (statuses as of 04/30/2023) [facility] History of Past illness Narrative* Problem Noted Date Diagnosed Date Resolved Date Migraine without aura, intra ctable, without status migrainosus 10/24/2018 08/17/2021 Chronic migraine 07/10/2018 08/17/2021 PIH ( induced hypertension) 11/05/2015 01/13/2016 with 33 completed weeks gestation 11/01/2015 01/13/2016 Anxiety disorder affecting p regnancy, antepartum 11/01/2015 01/13/2016 Overview: Currently on Buspar; increased to tid at 30 weeks (10/08/15) headache, antepartum 11/01/2015 01/13/2016 Overview: Tx with fioricet labor in third trimester 10/31/2015 01/13/2016 Elevated BP 10/31/2015 01/13/2016 Supervision of normal 07/16/2015 11/01/2015 Encounter for supervision of normal in third trimester 05/26/2015 01/13/2016 Short interval between pregn ancies affecting in second trimester, antepartum 04/28/2015 01/13/2016 Overview: Delivered previous baby in september 2014. First trimester 04/21/2015 Acute pain of left knee 07/29/201408/2021 Supervision of other normal 03/18/2014 11/01/2015 Cholecystitis with cholelithiasis 02/09/2013 03/18/2014 Goiter, nontoxic, multinodular 01/29/2013 09/11/2021 Overview: Repeat US due 07/2013. Pelvic pain 06/30/2012 03/18/2014 Overview: Treated for PID Depression 07/02/2009 03/18/2014 Postconcussion syndrome 12/29/200707/2013 Sprain of thoracic region 10/30/2007 Dysmenorrhea 10/04/2006 03/18/2014 Abdominal pain, left lower quadrant 10/04/2006 03/18/2014 documented as of this encounter (statuses as of 06/16/2023) [facility] History of Past illness Narrative* Problem Noted Date Diagnosed Date Resolved Date Migraine without aura, intra ctable, without status migrainosus 10/24/2018 08/17/2021 Chronic migraine 07/10/2018 08/17/2021 PIH ( induced hypertension) 11/05/2015 01/13/2016 with 33 completed weeks gestation 11/01/2015 01/13/2016 Anxiety disorder affecting p regnancy, antepartum 11/01/2015 01/13/2016 Overview: Currently on Buspar; increased to tid at 30 weeks (10/08/15) headache, antepartum 11/01/2015 01/13/2016 Overview: Tx with fioricet labor in third trimester 10/31/2015 01/13/2016 Elevated BP 10/31/2015 01/13/2016 Supervision of normal 07/16/2015 11/01/2015 Encounter for supervision of normal in third trimester 05/26/2015 01/13/2016 Short interval between pregn ancies affecting in second trimester, antepartum 04/28/2015 01/13/2016 Overview: Delivered previous baby in september 2014. First trimester 04/21/2015 Acute pain of left knee 07/29/201408/2021 Supervision of other normal 03/18/2014 11/01/2015 Cholecystitis with cholelithiasis 02/09/2013 03/18/2014 Goiter, nontoxic, multinodular 01/29/2013 09/11/2021 Overview: Repeat US due 07/2013. Pelvic pain 06/30/2012 03/18/2014 Overview: Treated for PID Depression 07/02/2009 03/18/2014 Postconcussion syndrome 12/29/200707/2013 Sprain of thoracic region 10/30/2007 Dysmenorrhea 10/04/2006 03/18/2014 Abdominal pain, left lower quadrant 10/04/2006 03/18/2014 documented as of this encounter (statuses as of 06/24/2023) [facility] History of Past illness Narrative* Problem Noted Date Diagnosed Date Resolved Date Migraine without aura, intra ctable, without status migrainosus 10/24/2018 08/17/2021 Chronic migraine 07/10/2018 08/17/2021 PIH ( induced hypertension) 11/05/2015 01/13/2016 with 33 completed weeks gestation 11/01/2015 01/13/2016 Anxiety disorder affecting p regnancy, antepartum 11/01/2015 01/13/2016 Overview: Currently on Buspar; increased to tid at 30 weeks (10/08/15) headache, antepartum 11/01/2015 01/13/2016 Overview: Tx with fioricet labor in third trimester 10/31/2015 01/13/2016 Elevated BP 10/31/2015 01/13/2016 Supervision of normal 07/16/2015 11/01/2015 Encounter for supervision of normal in third trimester 05/26/2015 01/13/2016 Short interval between pregn ancies affecting in second trimester, antepartum 04/28/2015 01/13/2016 Overview: Delivered previous baby in september 2014. First trimester 04/21/2015 Acute pain of left knee 07/29/201408/2021 Supervision of other normal 03/18/2014 11/01/2015 Cholecystitis with cholelithiasis 02/09/2013 03/18/2014 Goiter, nontoxic, multinodular 01/29/2013 09/11/2021 Overview: Repeat US due 07/2013. Pelvic pain 06/30/2012 03/18/2014 Overview: Treated for PID Depression 07/02/2009 03/18/2014 Postconcussion syndrome 12/29/200707/2013 Sprain of thoracic region 10/30/2007 Dysmenorrhea 10/04/2006 03/18/2014 Abdominal pain, left lower quadrant 10/04/2006 03/18/2014 documented as of this encounter (statuses as of 07/06/2023) [facility] History of Past illness Narrative* Problem Noted Date Diagnosed Date Resolved Date Migraine without aura, intra ctable, without status migrainosus 10/24/2018 08/17/2021 Chronic migraine 07/10/2018 08/17/2021 PIH ( induced hypertension) 11/05/2015 01/13/2016 with 33 completed weeks gestation 11/01/2015 01/13/2016 Anxiety disorder affecting p regnancy, antepartum 11/01/2015 01/13/2016 Overview: Currently on Buspar; increased to tid at 30 weeks (10/08/15) headache, antepartum 11/01/2015 01/13/2016 Overview: Tx with fioricet labor in third trimester 10/31/2015 01/13/2016 Elevated BP 10/31/2015 01/13/2016 Supervision of normal 07/16/2015 11/01/2015 Encounter for supervision of normal in third trimester 05/26/2015 01/13/2016 Short interval between pregn ancies affecting in second trimester, antepartum 04/28/2015 01/13/2016 Overview: Delivered previous baby in september 2014. First trimester 04/21/2015 Acute pain of left knee 07/29/201408/2021 Supervision of other normal 03/18/2014 11/01/2015 Cholecystitis with cholelithiasis 02/09/2013 03/18/2014 Goiter, nontoxic, multinodular 01/29/2013 09/11/2021 Overview: Repeat US due 07/2013. Pelvic pain 06/30/2012 03/18/2014 Overview: Treated for PID Depression 07/02/2009 03/18/2014 Postconcussion syndrome 12/29/200707/2013 Sprain of thoracic region 10/30/2007 Dysmenorrhea 10/04/2006 03/18/2014 Abdominal pain, left lower quadrant 10/04/2006 03/18/2014 documented as of this encounter (statuses as of 07/13/2023) [facility] Past illness Narrative* Problem Noted Date Diagnosed Date Resolved Date Migraine without aura, intra ctable, without status migrainosus 10/24/2018 08/17/2021 Chronic migraine 07/10/2018 08/17/2021 PIH ( induced hypertension) 11/05/2015 01/13/2016 with 33 completed weeks gestation 11/01/2015 01/13/2016 Anxiety disorder affecting p regnancy, antepartum 11/01/2015 01/13/2016 Overview: Currently on Buspar; increased to tid at 30 weeks (10/08/15) headache, antepartum 11/01/2015 01/13/2016 Overview: Tx with fioricet labor in third trimester 10/31/2015 01/13/2016 Elevated BP 10/31/2015 01/13/2016 Supervision of normal 07/16/2015 11/01/2015 Encounter for supervision of normal in third trimester 05/26/2015 01/13/2016 Short interval between pregn ancies affecting in second trimester, antepartum 04/28/2015 01/13/2016 Overview: Delivered previous baby in september 2014. First trimester 04/21/2015 Acute pain of left knee 07/29/201408/2021 Supervision of other normal 03/18/2014 11/01/2015 Cholecystitis with cholelithiasis 02/09/2013 03/18/2014 Goiter, nontoxic, multinodular 01/29/2013 09/11/2021 Overview: Repeat US due 07/2013. Pelvic pain 06/30/2012 03/18/2014 Overview: Treated for PID Depression 07/02/2009 03/18/2014 Postconcussion syndrome 12/29/200707/2013 Sprain of thoracic region 10/30/2007 Dysmenorrhea 10/04/2006 03/18/2014 Abdominal pain, left lower quadrant 10/04/2006 03/18/2014 documented as of this encounter (statuses as of 07/21/2023) [facility] Past illness Narrative* Problem Noted Date Diagnosed Date Resolved Date Migraine without aura, intra ctable, without status migrainosus 10/24/2018 08/17/2021 Chronic migraine 07/10/2018 08/17/2021 PIH ( induced hypertension) 11/05/2015 01/13/2016 with 33 completed weeks gestation 11/01/2015 01/13/2016 Anxiety disorder affecting p regnancy, antepartum 11/01/2015 01/13/2016 Overview: Currently on Buspar; increased to tid at 30 weeks (10/08/15) headache, antepartum 11/01/2015 01/13/2016 Overview: Tx with fioricet labor in third trimester 10/31/2015 01/13/2016 Elevated BP 10/31/2015 01/13/2016 Supervision of normal 07/16/2015 11/01/2015 Encounter for supervision of normal in third trimester 05/26/2015 01/13/2016 Short interval between pregn ancies affecting in second trimester, antepartum 04/28/2015 01/13/2016 Overview: Delivered previous baby in september 2014. First trimester 04/21/2015 Acute pain of left knee 07/29/201408/2021 Supervision of other normal 03/18/2014 11/01/2015 Cholecystitis with cholelithiasis 02/09/2013 03/18/2014 Goiter, nontoxic, multinodular 01/29/2013 09/11/2021 Overview: Repeat US due 07/2013. Pelvic pain 06/30/2012 03/18/2014 Overview: Treated for PID Depression 07/02/2009 03/18/2014 Postconcussion syndrome 12/29/200707/2013 Sprain of thoracic region 10/30/2007 Dysmenorrhea 10/04/2006 03/18/2014 Abdominal pain, left lower quadrant 10/04/2006 03/18/2014 documented as of this encounter (statuses as of 07/29/2023) [facility] Past illness Narrative* Problem Noted Date Diagnosed Date Resolved Date Migraine without aura, intra ctable, without status migrainosus 10/24/2018 08/17/2021 Chronic migraine 07/10/2018 08/17/2021 PIH ( induced hypertension) 11/05/2015 01/13/2016 with 33 completed weeks gestation 11/01/2015 01/13/2016 Anxiety disorder affecting p regnancy, antepartum 11/01/2015 01/13/2016 Overview: Currently on Buspar; increased to tid at 30 weeks (10/08/15) headache, antepartum 11/01/2015 01/13/2016 Overview: Tx with fioricet labor in third trimester 10/31/2015 01/13/2016 Elevated BP 10/31/2015 01/13/2016 Supervision of normal 07/16/2015 11/01/2015 Encounter for supervision of normal in third trimester 05/26/2015 01/13/2016 Short interval between pregn ancies affecting in second trimester, antepartum 04/28/2015 01/13/2016 Overview: Delivered previous baby in september 2014. First trimester 04/21/2015 Acute pain of left knee 07/29/201408/2021 Supervision of other normal 03/18/2014 11/01/2015 Cholecystitis with cholelithiasis 02/09/2013 03/18/2014 Goiter, nontoxic, multinodular 01/29/2013 09/11/2021 Overview: Repeat US due 07/2013. Pelvic pain 06/30/2012 03/18/2014 Overview: Treated for PID Depression 07/02/2009 03/18/2014 Postconcussion syndrome 12/29/200707/2013 Sprain of thoracic region 10/30/2007 Dysmenorrhea 10/04/2006 03/18/2014 Abdominal pain, left lower quadrant 10/04/2006 03/18/2014 documented as of this encounter (statuses as of 08/02/2023) [facility] Past illness Narrative* Problem Noted Date Diagnosed Date Resolved Date Migraine without aura, intra ctable, without status migrainosus 10/24/2018 08/17/2021 Chronic migraine 07/10/2018 08/17/2021 PIH ( induced hypertension) 11/05/2015 01/13/2016 with 33 completed weeks gestation 11/01/2015 01/13/2016 Anxiety disorder affecting p regnancy, antepartum 11/01/2015 01/13/2016 Overview: Currently on Buspar; increased to tid at 30 weeks (10/08/15) headache, antepartum 11/01/2015 01/13/2016 Overview: Tx with fioricet labor in third trimester 10/31/2015 01/13/2016 Elevated BP 10/31/2015 01/13/2016 Supervision of normal 07/16/2015 11/01/2015 Encounter for supervision of normal in third trimester 05/26/2015 01/13/2016 Short interval between pregn ancies affecting in second trimester, antepartum 04/28/2015 01/13/2016 Overview: Delivered previous baby in september 2014. First trimester 04/21/2015 Acute pain of left knee 07/29/201408/2021 Supervision of other normal 03/18/2014 11/01/2015 Cholecystitis with cholelithiasis 02/09/2013 03/18/2014 Goiter, nontoxic, multinodular 01/29/2013 09/11/2021 Overview: Repeat US due 07/2013. Pelvic pain 06/30/2012 03/18/2014 Overview: Treated for PID Depression 07/02/2009 03/18/2014 Postconcussion syndrome 12/29/200707/2013 Sprain of thoracic region 10/30/2007 Dysmenorrhea 10/04/2006 03/18/2014 Abdominal pain, left lower quadrant 10/04/2006 03/18/2014 documented as of this encounter (statuses as of 08/03/2023) [facility] Past illness Narrative* Problem Noted Date Diagnosed Date Resolved Date Migraine without aura, intra ctable, without status migrainosus 10/24/2018 08/17/2021 Chronic migraine 07/10/2018 08/17/2021 PIH ( induced hypertension) 11/05/2015 01/13/2016 with 33 completed weeks gestation 11/01/2015 01/13/2016 Anxiety disorder affecting p regnancy, antepartum 11/01/2015 01/13/2016 Overview: Currently on Buspar; increased to tid at 30 weeks (10/08/15) headache, antepartum 11/01/2015 01/13/2016 Overview: Tx with fioricet labor in third trimester 10/31/2015 01/13/2016 Elevated BP 10/31/2015 01/13/2016 Supervision of normal 07/16/2015 11/01/2015 Encounter for supervision of normal in third trimester 05/26/2015 01/13/2016 Short interval between pregn ancies affecting in second trimester, antepartum 04/28/2015 01/13/2016 Overview: Delivered previous baby in september 2014. First trimester 04/21/2015 Acute pain of left knee 07/29/201408/2021 Supervision of other normal 03/18/2014 11/01/2015 Cholecystitis with cholelithiasis 02/09/2013 03/18/2014 Goiter, nontoxic, multinodular 01/29/2013 09/11/2021 Overview: Repeat US due 07/2013. Pelvic pain 06/30/2012 03/18/2014 Overview: Treated for PID Depression 07/02/2009 03/18/2014 Postconcussion syndrome 12/29/200707/2013 Sprain of thoracic region 10/30/2007 Dysmenorrhea 10/04/2006 03/18/2014 Abdominal pain, left lower quadrant 10/04/2006 03/18/2014 documented as of this encounter (statuses as of 08/05/2023) [facility] Past illness Narrative* Problem Noted Date Diagnosed Date Resolved Date Migraine without aura, intra ctable, without status migrainosus 10/24/2018 08/17/2021 Chronic migraine 07/10/2018 08/17/2021 PIH ( induced hypertension) 11/05/2015 01/13/2016 with 33 completed weeks gestation 11/01/2015 01/13/2016 Anxiety disorder affecting p regnancy, antepartum 11/01/2015 01/13/2016 Overview: Currently on Buspar; increased to tid at 30 weeks (10/08/15) headache, antepartum 11/01/2015 01/13/2016 Overview: Tx with fioricet labor in third trimester 10/31/2015 01/13/2016 Elevated BP 10/31/2015 01/13/2016 Supervision of normal 07/16/2015 11/01/2015 Encounter for supervision of normal in third trimester 05/26/2015 01/13/2016 Short interval between pregn ancies affecting in second trimester, antepartum 04/28/2015 01/13/2016 Overview: Delivered previous baby in september 2014. First trimester 04/21/2015 Acute pain of left knee 07/29/201408/2021 Supervision of other normal 03/18/2014 11/01/2015 Cholecystitis with cholelithiasis 02/09/2013 03/18/2014 Goiter, nontoxic, multinodular 01/29/2013 09/11/2021 Overview: Repeat US due 07/2013. Pelvic pain 06/30/2012 03/18/2014 Overview: Treated for PID Depression 07/02/2009 03/18/2014 Postconcussion syndrome 12/29/200707/2013 Sprain of thoracic region 10/30/2007 Dysmenorrhea 10/04/2006 03/18/2014 Abdominal pain, left lower quadrant 10/04/2006 03/18/2014 documented as of this encounter (statuses as of 08/10/2023) [facility] History of Past illness Narrative* Problem Noted Date Diagnosed Date Resolved Date Migraine without aura, intra ctable, without status migrainosus 10/24/2018 08/17/2021 Chronic migraine 07/10/2018 08/17/2021 PIH ( induced hypertension) 11/05/2015 01/13/2016 with 33 completed weeks gestation 11/01/2015 01/13/2016 Anxiety disorder affecting p regnancy, antepartum 11/01/2015 01/13/2016 Overview: Currently on Buspar; increased to tid at 30 weeks (10/08/15) headache, antepartum 11/01/2015 01/13/2016 Overview: Tx with fioricet labor in third trimester 10/31/2015 01/13/2016 Elevated BP 10/31/2015 01/13/2016 Supervision of normal 07/16/2015 11/01/2015 Encounter for supervision of normal in third trimester 05/26/2015 01/13/2016 Short interval between pregn ancies affecting in second trimester, antepartum 04/28/2015 01/13/2016 Overview: Delivered previous baby in september 2014. First trimester 04/21/2015 Acute pain of left knee 07/29/2014 04/0 08/2021 Supervision of other normal 03/18/2014 11/01/2015 Cholecystitis with cholelithiasis 02/09/2013 03/18/2014 Goiter, nontoxic, multinodular 01/29/2013 09/11/2021 Overview: Repeat US due 07/2013. Pelvic pain 06/30/2012 03/18/2014 Overview: Treated for PID Depression 07/02/2009 03/18/2014 Postconcussion syndrome 12/29/200707/2013 Sprain of thoracic region 10/30/2007 Dysmenorrhea 10/04/2006 03/18/2014 Abdominal pain, left lower quadrant 10/04/2006 03/18/2014 documented as of this encounter (statuses as of 2023) [facility] History of Past illness Narrative* Problem Noted Date Diagnosed Date Resolved Date Migraine without aura, intra ctable, without status migrainosus 10/24/2018 08/17/2021 Chronic migraine 07/10/2018 08/17/2021 PIH ( induced hypertension) 11/05/2015 01/13/2016 with 33 completed weeks gestation 11/01/2015 01/13/2016 Anxiety disorder affecting p regnancy, antepartum 11/01/2015 01/13/2016 Overview: Currently on Buspar; increased to tid at 30 weeks (10/08/15) headache, antepartum 11/01/2015 01/13/2016 Overview: Tx with fioricet labor in third trimester 10/31/2015 01/13/2016 Elevated BP 10/31/2015 01/13/2016 Supervision of normal 07/16/2015 11/01/2015 Encounter for supervision of normal in third trimester 05/26/2015 01/13/2016 Short interval between pregn ancies affecting in second trimester, antepartum 04/28/2015 01/13/2016 Overview: Delivered previous baby in september 2014. First trimester 04/21/2015 Acute pain of left knee 07/29/201408/2021 Supervision of other normal 03/18/2014 11/01/2015 Cholecystitis with cholelithiasis 02/09/2013 03/18/2014 Goiter, nontoxic, multinodular 01/29/2013 09/11/2021 Overview: Repeat US due 07/2013. Pelvic pain 06/30/2012 03/18/2014 Overview: Treated for PID Depression 07/02/2009 03/18/2014 Postconcussion syndrome 12/29/200707/2013 Sprain of thoracic region 10/30/2007 Dysmenorrhea 10/04/2006 03/18/2014 Abdominal pain, left lower quadrant 10/04/2006 03/18/2014 documented as of this encounter (statuses as of 08/16/2023) [facility] History of Past illness Narrative* Problem Noted Date Diagnosed Date Resolved Date Migraine without aura, intra ctable, without status migrainosus 10/24/2018 08/17/2021 Chronic migraine 07/10/2018 08/17/2021 PIH ( induced hypertension) 11/05/2015 01/13/2016 with 33 completed weeks gestation 11/01/2015 01/13/2016 Anxiety disorder affecting p regnancy, antepartum 11/01/2015 01/13/2016 Overview: Currently on Buspar; increased to tid at 30 weeks (10/08/15) headache, antepartum 11/01/2015 01/13/2016 Overview: Tx with fioricet labor in third trimester 10/31/2015 01/13/2016 Elevated BP 10/31/2015 01/13/2016 Supervision of normal 07/16/2015 11/01/2015 Encounter for supervision of normal in third trimester 05/26/2015 01/13/2016 Short interval between pregn ancies affecting in second trimester, antepartum 04/28/2015 01/13/2016 Overview: Delivered previous baby in september 2014. First trimester 04/21/2015 Acute pain of left knee 07/29/201408/2021 Supervision of other normal 03/18/2014 11/01/2015 Cholecystitis with cholelithiasis 02/09/2013 03/18/2014 Goiter, nontoxic, multinodular 01/29/2013 09/11/2021 Overview: Repeat US due 07/2013. Pelvic pain 06/30/2012 03/18/2014 Overview: Treated for PID Depression 07/02/2009 03/18/2014 Postconcussion syndrome 12/29/200707/2013 Sprain of thoracic region 10/30/2007 Dysmenorrhea 10/04/2006 03/18/2014 Abdominal pain, left lower quadrant 10/04/2006 03/18/2014 documented as of this encounter (statuses as of 08/16/2023) [facility] History of Past illness Narrative* Problem Noted Date Resolved Date PIH ( induced hypertension) 11/05/2015 01/13/2016 with 33 completed weeks gestation 10/1401/13/2016 Anxiety disorder affecting , antepartum 11/01/2015 01/13/2016 Overview: Currently on Buspar; increased to tid at 30 weeks (10/08/15) headache, antepartum 11/01/2015 0 01/13/2016 Overview: Tx with fioricet labor in third trimester 10/31/2015 01/13/2016 Elevated BP 10/31/2015 01/13/2016 Supervision of normal 07/16/2015 11/01/2015 Encounter for supervision of normal in third trimester 05/26/2015 01/13/2016 Short interval between pregn ancies affecting in second trimester, antepartum 04/28/2015 01/13/2016 Overview: Delivered previous baby in september 2014. First trimester 04/21/20152015 Supervision of other normal 03/18/2014 11/01/2015 Cholecystitis with cholelithiasis 02/09/2013 03/18/2014 Pelvic pain 06/30/2012 03/18/2014 Overview: Treated for PID Depression 07/02/2009 03/18/2014 Postconcussion syndrome 12/29/2007 03/18/20 14 Sprain of thoracic region 10/30/20072013 Dysmenorrhea 10/04/2006 03/18/2014 Abdominal pain, left lower quadrant 10/04/2006 03/18/2014 documented as of this encounter (statuses as of 08/10/2021) [facility] Note Date/Time August 06, 2024 9:1 8am [facility] Medical Records Department [address] [place] [address] Pre-Anesthesia Evaluation 08/06/24 0912 MR#: [id number] Acct: [id number] Name: MARIA ELENA GARAY Rep #:[id number] : 1990 33 From: Jacques Mendez MD PCP: Dr. Jes Fuentes MD Status:REG S DC Y Race: C Location: [place] [address] ASA Classification* ASA Classification ASA Classification: 2 Assessment & Plan Anesthesia* Anesthesia Assessment Anesthesia Assessment: Discussed sedation and/or anesthesia options, risks, benefits, and alternatives with patient/parents/legal guardian/POA. Questions invited. The patient/parents/legal guardian/POA seems to understand and agrees to proceedwith anesthesia plan. Reviewed the physical assessment, medical history, allergy history and patient home medications list prior to surgery/procedure/anesthetic and documented any changes. Performed airway and anesthesia risk assessments. Anesthesia Type Anesthesia Type: MAC History Source History Obtained from:: Patient and Chart Anesthesia Focused Assessment* Temperature: 98.1 F Pulse Rate: 89 Blood Pressure: 147/98 Respiratory Rate: 16 Pulse Ox: 100 Oxygen Delivery Method: Room Air Airway Assessment Mouth opens: >3 cm Mallampati Score: II Teeth Condition: Missing (Patient has several missing teeth. Rest are tight.) Neck Range of motion (ROM): Full ROM Focused Labs Anesthesia Preop lab: CBC WBC 11.3 K/mm3 (4.4-11.0) H 03/20/24 13:46 4 RBC 4.88 M/mm3 (4.2-5.4) 03/20/24 13:46 03/20/24 Hgb 12.9 g/dL (12.0-15.0) 03/20/24 13:46 03/20/24 Hct 40.6 % (37-47) 03/20/24 13:46 03/20/24 Plt Count 523 K/mm3 (150-450) H 03/20/24 13:46 03/20/24 CHEMISTRY Potassium 3.7 mmol/L (3.5-5.1) 03/20/24 13:46 03/20/24 Sodium 138 mmol/L (136-145) 03/20/24 13:46 03/20/24 BUN 22 mg/dL (7-18) H 03/20/24 13:46 03/20/24 Creatinine 0.63 mg/dL (0.55-1.02) 03/20/24 13:46 03/20/24 Glucose 80 mg/dL (74-106) 03/20/24 13:46 03/20/24 TSH 1.40 uIU/mL (0.358-3.74) 07/20/13 18:08 COAG PT 13.2 SECONDS (11.7-14.9) 04/03/18 06:05 HCG, Quant < 1 mIU/mL (1-3) 03/20/24 13:46 03/20/24 Urine Test Negative Negative 05/31/19 08:40 05/31/19 Pre-Assessment Diagnosis/Proposed Procedure Planned Operative Procedure(s): COLONOSCOPY Anesthesia History Anesthesia History - manager training and development: Anesthesia History - manager training and development Hx Hospitalization No 08/02/24 09:48 Any Problems With Anesthesia PONV 08/02/24 09:48 Cholinesterase deficiency No 08/02/24 09:48 You/Your Family Experience No 08/02/24 09:48 fever (hyperthermia) with Relationship Recent Exposure to Contagious No 08/06/24 08:13 Disease Does patient have nerve No 08/02/24 09:48 stimulator Patient instructed to have device shut off --Does patient have Pacemaker No 08/06/24 08:13 or ICD? When Was Last Pacemaker Check QUESTION #4 FULL TEXT: You/Your Family Experience fever (hyperthermia) with Anesthesia Last Oral Intake Last Oral intake: Last Oral Intake NPO since 19:00 08/06/24 08:13 Meds taken in AM with sips of No 08/06/24 08:13 water? Meds patient instructed to take am of surgery Any additional information?: Yes NPO since: 06:00 (Patient finished prep at 6 AM.) PONV PONV - manager training and development: PONV - manager training and development Female Yes 08/02/24 09:48 HX of Motion Sickness Yes 08/02/24 09:48 HX of N/V After Surgery No 08/02/24 09:48 Non-Smoker Yes 08/02/24 09:48 Duration of Surgery greater No 08/02/24 09:48 than 60 minutes Number of Risk Factors 3 08/02/24 09:48 PONV Score Moderate Risk 08/02/24 09:48 Height & Weight Height & Weight: Anesthesia: Height & Weight Height 5 ft 5 in 08/06/24 08:13 Weight: 97.4 kg 08/06/24 08:13 Body Mass Index (BMI) 35.7 08/06/24 08:13 Respiratory Assessment Respiratory Assessment - manager training and development: Respiratory Tract Infection Hx - manager training and development Hx Respiratory Tract Infection No 08/02/24 09:48 STOP Sleep Apnea STOP Sleep Apnea - manager training and development: STOP Sleep Apnea - manager training and development Hx Hypertension Yes: NO MEDS PCP D/C'D 08/02/24 09:48 Hx Sleep Apnea No 08/02/24 09:48 CPAP BIPAP Do you snore loudly (louder No 08/02/24 09:48 than talking or can be heard Do you often feel tired/ No 08/02/24 09:48 fatigued/ sleepy during daytime? Has anyone observed you stop No 08/02/24 09:48 breathing during sleep? STOP Results Negative 08/02/24 09:48 QUESTION #5 FULL TEXT : Do you snore loudly (louder than talking or can be heard through closed doors)? 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 Specify any problems Hx of Preganancy in last 3 No 08/02/24 09:48 Months Nurse Filling Out Transfusion VCHRISTIN 08/02/24 09:48 & Questions: Date: 08/02/24 08/02/24 09:48 Time: 09:50 08/02/24 09:48 Patient unable to answer at this time (ie. 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: /Reproductive Hx- manager training and development Hx Now No 08/02/24 09:48 Gestational Age (in weeks): EDC: Hx Hx Para Hx Section SAB No 08/02/24 09:48 PFSH Medical History Wears glasses Anemia Back pain Injury of head and neck Difficulty swallowing Gastric reflux Non-smoker Sleep apnea History of echocardiogram History of stress test Hypertension Cardiology follow-up encounter History of irregular heartbeat Anxiety Arthritis Asthma Tonsillectomy planned Migraines Home Medications ?Medication ?Instructions ?Recorded ?Last Taken ?Type gabapentin 100 mg capsule 400 mg PO TID MIGRAINS 10/0407/20/21 History albuterol sulfate 90 mcg/actuation 1 - 2 puff inhalati on Q6H PRN PRN 03/22/18 07/20/21 History aerosol inhaler (ProAir HFA) Asthma venlafaxine 75 mg tablet 150 mg PO DAILY 04/30/1912/04 History cholecalciferol (vitamin D3) 125 125 mcg PO DAILY 03/1607/20/21 History mcg (5,000 unit) tablet melatonin 10 mg tablet 10 mg PO QHS PRN sleep 03/3107/19/21 History ubrogepant 50 mg tablet (Ubrelvy) 50 mg PO BID PRN russell gladis headache 07/20/21 Unknown History atogepant 60 mg tablet 60 mg PO DAILY 12/14/23 Unkn own History chlorzoxazone 500 mg tablet 500 mg PO TID 12/14/23 Unk nown History pantoprazole 40 mg tablet,delayed 40 mg PO BID 4 Unknown History release propranolol 80 mg capsule,24 80 mg PO DAILY 12/14/23 0 08/04/24 History hr,extended release rimegepant 75 mg disintegrating 75 mg PO ONCE PRN migr venkat headache 12/14/23 Unknown History tablet (Nurtec ODT) tramadol 50 mg tablet 50 mg PO TID PRN pain Unknown History diphenhydramine HCl 25 mg capsule 25 mg PO QHS 5 Unknown History (Aler-Cap) ergocalciferol (vitamin D2) 1,250 1,250 mcg PO QWEEK 0 08/02/24 Unknown History mcg (50,000 unit) capsule metformin 500 mg tablet,extended 1,000 mg PO BID 08/0208/04/24 History release 24 hr ondansetron 4 mg disintegrating 8 mg PO Q8H PRN PRN Na usea 08/02/24 Unknown History tablet topiramate 25 mg tablet 25 mg PO QHS 08/02/24 Unknow n History Allergy/AdvReac Type Severity Reaction Status Date / Time metoclopramide (From Reglan) AdvReac severe Verified 08/06/24 08:10 anxious prochlorperazine (From AdvReac severe Verified 08/06/24 08:10 Compazine) anxious Family History Mother Thyroid cancer Skin cancer Hypertension Surgical History History of esophagogastroduodenoscopy (EGD) Hx of tubal ligation Hx of tonsillectomy History of appendectomy S/P cholecystectomy S/P left knee arthroscopy tubes clamped Social History household members: spouse Smoking Status: Never smoker alcohol intake: never substance use type: does not use Review of Systems (Anesthesia) ROS Narrative System reviewed and no additional complaints, except as documented. 08/06/24917 <Electronically signed by Jacques santiago MD> Date _ Jacques Mendez MD Cosigner Signature: Date CC: ~ Signed [facility] Work Phone: Consult note Author Deonte Louis [facility] Note Date/Time August 06, 2024 10: 37am [facility] Medical Records Department [address] [place] [address] Anesthesia Postop Eval I 08/06/2445 MR#: [id number] Acct: [id number] Name: MARIA ELENA GARAY Rep #:[id number] : 1990 33 From: Deonte Louis PCP: Dr. Jes Fuentes MD Status:REG S DC Y Race: C Location: [place] [address] Anesthesia: Postop Eval I Current Vital Signs Temperature: 97.9 F Pulse Rate: 71 Blood Pressure: 114/85 Respiratory Rate: 16 Pulse Ox: 97 Oxygen Delivery Method: Room Air Assessment Airway patent: Yes Spontaneous unlabored respirations: Yes Mental status: Asleep nausea: No Vomiting: No Anesthesia Complication: No Fluid Hydration Crystalloid volume administer (ml): 40 Total IV fluid infused: 40 Progress Note Anesthesia document: Postop Eval 1 completed: Yes 08/06/2445 <Electronically signed by Deonte Louis > Date _ Deonte Coxignedith Signature: Date CC: ~ Signed [facility] Work Phone: Consult note Author Mary Ann Rehman [facility] Note Date/Time August 06, 2024 10: 37am [facility] Medical Records Department [address] [place] [address] Anesthesia Postop Eval II 08/06/24 1016 MR#: [id number] Acct: [id number] Name: MARIA ELENA GARAY Rep #:[id number] : 1990 33 From: Mary Ann Rehman PCP: Dr. Jes Fuentes MD Status:REG S DC Y Race: C Location: [place] [address] Anesthesia Postop Eval I Sum Postop Eval Completion status Anesthesia document: Postop Eval 1 completed: Yes Anesthesia Postop Eval I Summary Anesthesia Postop Eval I Summary: Anesthesia Postop Eval I: Assessment Summary Airway patent Yes 08/06/24 09:45 [email or web address] Spontaneous unlabored Yes 08/06/24 09:45 [email or web address] respirations Mental status Asleep 08/06/24 09:45 [email or web address] nausea No 08/06/24 09:45 [email or web address] Vomiting No 08/06/24 09:45 [email or web address] Anesthesia Postop Eval I: Fluid Summary Crystalloid volume administer 40 08/06/24 09:45 [email or web address] (ml) Colloids volume administered ( ml) Blood Product volume administered (ml) Total IV fluid infused 40 08/06/24 09:45 [email or web address] Anesthesia Postop Eval I: Summary Notes Anesthesia Complication No 08/06/24 09:45 [email or web address] Anesthesia Complication Comment: Post-operative progress note Anesthesia: Postop Eval II Evaluation Mental status: Awake Pain Level: 0 nausea: No Vomiting: No 08/06/24 1016 <Electronically signed by Mary Ann fabian> Date _ Mary Ann Whalen Signature: Date CC: ~ Signed [facility] Work Phone: Consult note Author AA Deonte Louis [facility] Note Date/Time October 24, 2024 1:30 pm [facility] Medical Records Department [address] [place] [address] Anesthesia Postop Eval I 10/24/24 1329 MR#: [id number] Acct: [id number] Name: MARIA ELENA GARAY Rep #:[id number] : 1990 34 From: Deonte Louis PCP: Dr. Jes Fuentes MD Status:REG S DC Y Race: C Location: [place] [address] Anesthesia: Postop Eval I Current Vital Signs Temperature: 97.8 F Pulse Rate: 70 Blood Pressure: 117/68 Respiratory Rate: 16 Pulse Ox: 97 Oxygen Delivery Method: Room Air Assessment Airway patent: Yes Spontaneous unlabored respirations: Yes Mental status: Awake and Calm nausea: No Vomiting: No Anesthesia Complication: No Fluid Hydration Crystalloid volume administer (ml): 400 Total IV fluid infused: 400 Progress Note Anesthesia document: Postop Eval 1 completed: Yes 10/24/24 1330 <Electronically signed by Deonte Louis > Date _ Deonte Whalen Signature: Date CC: ~ Signed [facility] Work Phone: Consult note Author Rolly Rm [facility] Note Date/Time October 24, 2024 1:56 pm [facility] Medical Records Department [address] [place] [address] Anesthesia Postop Eval II 10/24/24 1356 MR#: [id number] Acct: [id number] Name: MARIA ELENA GARAY Rep #:[id number] : 1990 34 From: Rolly Rm MD PCP: Dr. Jes Fuentes MD Status:DEP S DC Y Race: C Location: [place] Anesthesia Postop Eval I Sum Postop Eval Completion status Anesthesia document: Postop Eval 1 completed: Yes Anesthesia Postop Eval I Summary Anesthesia Postop Eval I Summary: Anesthesia Postop Eval I: Assessment Summary Airway patent Yes 10/24/24 13:29 [email or web address] Spontaneous unlabored Yes 10/24/24 13:29 [email or web address] respirations Mental status Awake,Calm 10/24/24 13:29 [email or web address] nausea No 10/24/24 13:29 [email or web address] Vomiting No 10/24/24 13:29 [email or web address] Anesthesia Postop Eval I: Fluid Summary Crystalloid volume administer 400 10/24/24 13:29 [email or web address] (ml) Colloids volume administered ( ml) Blood Product volume administered (ml) Total IV fluid infused 400 10/24/24 13:29 [email or web address] Anesthesia Postop Eval I: Summary Notes Anesthesia Complication No 10/24/24 13:29 [email or web address] Anesthesia Complication Comment: Post-operative progress note Anesthesia: Postop Eval II Evaluation Mental status: Awake Pain Level: 0 nausea: No Vomiting: No 10/24/24 1356 <Electronically signed by Rolly Rm MD > Date _ Rolly Whalen Signature: Date CC: ~ Signed [facility] Work Phone: Evaluation note* Diagnosis Dental infection- Primary Acute apical periodontitis of pulpal origin Migraine without aura, intractable, with status migrainosus Migraine without aura, with intractable migraine, so stated, with status migrainosus Mild asthma without complication, unspecified whether persistent Goiter, nontoxic, multinodular Nontoxic multinodular goiter Leukocytosis, unspecified type Anxiety with depression [facility] Goiter, nontoxic, multinodular Nontoxic multinodular goiter [facility] Diagnosis Leukocytosis, unspecified type- Primary Anxiety with depression [facility] Diagnosis Onset Date Resolution Status Asthma exacerbation acute [facility] Work Phone: Evaluation note* Diagnosis Sprain of right elbow, subsequent encounter- Primary [facility] Diagnosis Chronic right-sided low back pain with right-sided sciatica- Primary [facility]* Diagnosis Leukocytosis, unspecified type- Primary [facility]* Diagnosis Intractable chronic 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- Primary Chronic migraine without aura, with intractable migraine, so stated, without mention of status migrainosus [facility]* Diagnosis Foot pain, bilateral- Primary Pain in limb Plantar fasciitis Plantar fascial fibromatosis [facility]* Diagnosis Hypertension, essential Unspecified essential hypertension [facility]* Diagnosis Chronic migraine without aura, intractable, without status migrainosus- Primary [facility] Work Phone: [facility]* Diagnosis Chronic daily headache- Primary Headache Intractable chronic 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 Chronic migraine without aura, with intractable migraine, so stated, without mention of status migrainosus [facility]* Diagnosis Plantar fasciitis- Primary Plantar fascial fibromatosis Foot pain, bilateral Pain in limb [facility]* Diagnosis Intractable chronic 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- Primary Chronic migraine without aura, with intractable migraine, so stated, without mention of status migrainosus [facility] Diagnosis Intractable chronic 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- Primary Chronic migraine without aura, with intractable migraine, so stated, without mention of status migrainosus [facility]* Diagnosis Chronic migraine without aura, intractable, without status migrainosus- Primary [facility]* Diagnosis Alford eye disease of left eye- Primary [facility] [place] [facility]* Diagnosis Fatigue, unspecified type- Primary Malaise Other malaise and fatigue Epigastric pain Abdominal pain, epigastric Elevated BP without diagnosis of hypertension Low grade fever Fever, unspecified Nausea Nausea alone History of leukocytosis Personal history of diseases of blood and blood-forming organs [facility]* Diagnosis Chronic migraine without aura, intractable, without status migrainosus- Primary [facility]* Diagnosis Fatigue, unspecified type- Primary Nausea Nausea alone Elevated glucose Other abnormal glucose Leukocytosis, unspecified type Delayed gastric emptying Dyspepsia and other specified disorders of function of stomach [facility]* Diagnosis Leukocytosis, unspecified type- Primary Thrombocythemia Essential thrombocythemia documented in [facility] BLAISE (obstructive sleep apnea)- Primary Obstructive sleep apnea (adult) (pediatric) [facility] [place] [facility] Diagnosis Intractable chronic 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- Primary Chronic migraine without aura, with intractable migraine, so stated, without mention of status migrainosus [facility] Diagnosis Chronic migraine without aura, intractable, without status migrainosus- Primary Intractable chronic 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 Chronic migraine without aura, with intractable migraine, so stated, without mention of status migrainosus [facility] [place] [facility] Diagnosis Left-sided low back pain with right-sided sciatica, unspecified chronicity- Primary Stress incontinence Female stress incontinence [facility] [place] [facility]* Diagnosis Left-sided low back pain with left-sided sciatica, unspecified chronicity- Primary [facility] [place] [facility]* Diagnosis Left-sided low back pain with left-sided sciatica, unspecified chronicity- Primary [facility] [place] [facility]* Diagnosis Left-sided low back pain with left-sided sciatica, unspecified chronicity- Primary [facility] [place] [facility]* Diagnosis Intractable chronic 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- Primary Chronic migraine without aura, with intractable migraine, so stated, without mention of status migrainosus [facility] [place] [facility]* Diagnosis Left-sided low back pain with left-sided sciatica, unspecified chronicity- Primary [facility] [place] [facility]* Diagnosis Left-sided low back pain with left-sided sciatica, unspecified chronicity- Primary [facility] [place] [facility]* Diagnosis Hypertension, essential Unspecified essential hypertension [facility] [place] [facility]* Diagnosis Chronic right-sided low back pain with right-sided sciatica [facility] [place] [facility]* Diagnosis Epigastric pain- Primary Abdominal pain, epigastric Dyspepsia Dyspepsia and other specified disorders of function of stomach Nausea Nausea alone [facility] [place] [facility]* Diagnosis Intractable chronic 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- Primary Chronic migraine without aura, with intractable migraine, so stated, without mention of status migrainosus [facility] [place] [facility]* Diagnosis Acute pain of right knee- Primary Hypertension, essential Unspecified essential hypertension Eosinophilic esophagitis [facility] [place] [facility]* Diagnosis Chronic migraine without aura, intractable, without status migrainosus- Primary Cervicalgia Bilateral occipital neuralgia Other syndromes affecting cervical region [facility] [place] [facility]* Diagnosis Chronic migraine without aura, intractable, without status migrainosus- Primary [facility] Diagnosis Hypertension, essential- Primary Unspecified essential hypertension Vitamin D deficiency Unspecified vitamin D deficiency BLAISE (obstructive sleep apnea) Obstructive sleep apnea (adult) (pediatric) Anxiety with depression Leukocytosis, unspecified type [facility] [place] [facility]* Diagnosis Intractable chronic 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- Primary Chronic migraine without aura, with intractable migraine, so stated, without mention of status migrainosus [facility] [place] [facility]* Diagnosis Intractable chronic 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- Primary Chronic migraine without aura, with intractable migraine, so stated, without mention of status migrainosus [facility] Diagnosis Intractable chronic 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- Primary Chronic migraine without aura, with intractable migraine, so stated, without mention of status migrainosus [facility] Diagnosis Intractable chronic 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- Primary Chronic migraine without aura, with intractable migraine, so stated, without mention of status migrainosus [facility] Diagnosis Palpitations- Primary Hypertension, essential Unspecified essential hypertension Orthostatic hypotension Palpitations [facility] [place] [facility]* Diagnosis Abnormal blood cell count- Primary Hypercalcemia [facility] [place] [facility]* Diagnosis Intractable chronic 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- Primary Chronic migraine without aura, with intractable migraine, so stated, without mention of status migrainosus [facility] Diagnosis Thrombocytosis- Primary Essential thrombocythemia Myalgia Mylagia and myositis, unspecified Palpitations Nausea Nausea alone [facility] Diagnosis Encounter for gynecological examination with abnormal finding- Primary Routine gynecological examination Pelvic pain in female Unspecified symptom associated with female genital organs Mastalgia Mastodynia Mass overlapping multiple quadrants of right breast Cervical cancer screening Screening for malignant neoplasm of the cervix Encounter for screening for human papillomavirus (HPV) Special screening examination for human papillomavirus (HPV) [facility] [place] [facility]* Diagnosis Left-sided low back pain with right-sided sciatica, unspecified chronicity Chronic migraine without aura, intractable, without status migrainosus- Primary [facility] Diagnosis Cervical radiculopathy- Primary Brachial neuritis or radiculitis nos Numbness and tingling in both hands Chronic migraine without aura, intractable, without status migrainosus- Primary [facility] [place] [facility]* Diagnosis Chronic migraine without aura, intractable, without status migrainosus- Primary [facility] [place] [facility]* Diagnosis Intractable chronic 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- Primary Chronic migraine without aura, with intractable migraine, so stated, without mention of status migrainosus [facility] [place] [facility]* Diagnosis Intractable chronic 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- Primary Chronic migraine without aura, with intractable migraine, so stated, without mention of status migrainosus [facility] [place] [facility]* Diagnosis Pelvic pain in female Unspecified symptom associated with female genital organs [facility] [place] [facility]* Diagnosis Thrombocytosis- Primary Essential thrombocythemia [facility] [place] [facility]* Diagnosis Eosinophilic esophagitis- Primary [facility] [place] [facility]* Diagnosis Iron deficiency anemia due to chronic blood loss- Primary 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 Other specified intestinal malabsorption Menorrhagia with regular cycle Excessive or frequent menstruation [facility] [place] [facility]* Diagnosis Mastalgia Mastodynia Mass overlapping multiple quadrants of right breast [facility] [place] [facility]* Diagnosis Mastalgia Mastodynia Mass overlapping multiple quadrants of right breast [facility] [place] [facility]* Diagnosis Abnormal mammogram- Primary Abnormal mammogram, unspecified Breast pain Mastodynia [facility] [place] [facility]* Diagnosis Pelvic pain in female- Primary Unspecified symptom associated with female genital organs [facility] [place] [facility]* Diagnosis Abnormal mammogram Abnormal mammogram, unspecified Breast pain Mastodynia [facility] [place] [facility]* Diagnosis Iron malabsorption- Primary Other specified intestinal malabsorption Menorrhagia with regular cycle Excessive or frequent menstruation Iron deficiency anemia due to chronic blood loss Iron deficiency anemia secondary to blood loss (chronic) [facility] [place] [facility]* Diagnosis Menorrhagia with regular cycle- Primary Excessive or frequent menstruation Iron malabsorption Other specified intestinal malabsorption Iron deficiency anemia due to chronic blood loss Iron deficiency anemia secondary to blood loss (chronic) [facility] [place] [facility]* Diagnosis Gastroenteritis- Primary Other and unspecified noninfectious gastroenteritis and colitis [facility] [place] [facility]* Diagnosis Hyperglycemia- Primary Other abnormal glucose Diarrhea, unspecified type Thrombocytosis Essential thrombocythemia Hypertension, essential Unspecified essential hypertension Palpitations [facility] [place] [facility]* Diagnosis Menorrhagia with regular cycle- Primary Excessive or frequent menstruation Iron malabsorption Other specified intestinal malabsorption Iron deficiency anemia due to chronic blood loss Iron deficiency anemia secondary to blood loss (chronic) [facility] [place] [facility]* Diagnosis Menorrhagia with regular cycle- Primary Excessive or frequent menstruation Iron malabsorption Other specified intestinal malabsorption Iron deficiency anemia due to chronic blood loss Iron deficiency anemia secondary to blood loss (chronic) [facility] [place] [facility]* Diagnosis Palpitations- Primary [facility] [place] [facility]* Diagnosis Acute conjunctivitis of both eyes, unspecified acute conjunctivitis type- Primary [facility] [place] [facility]* Diagnosis Abnormal uterine bleeding- Primary Unspecified disorder of menstruation and other abnormal bleeding from female genital tract Class 3 severe obesity in adult, unspecified BMI, unspecified obesity type, unspecified whether serious comorbidity present (HCC) [facility] [place] [facility]* Diagnosis Intractable chronic 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 Chronic migraine without aura, with intractable migraine, so stated, without mention of status migrainosus [facility] [place] [facility]* Diagnosis Iron deficiency anemia due to chronic blood loss- Primary 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 Other specified intestinal malabsorption Thrombocytosis Essential thrombocythemia [facility] [place] [facility]* Diagnosis Thrombocytosis- Primary Essential thrombocythemia Chronic migraine without aura, intractable, without status migrainosus- Primary [facility] [place] [facility]* Diagnosis Cervical radiculopathy Brachial neuritis or radiculitis nos Numbness and tingling in both hands Chronic migraine without aura, intractable, without status migrainosus- Primary [facility] [place] [facility]* Diagnosis Abnormal uterine bleeding Unspecified disorder of menstruation and other abnormal bleeding from female genital tract Chronic migraine without aura, intractable, without status migrainosus- Primary [facility] [place] [facility]* Diagnosis Palpitations Chronic migraine without aura, intractable, without status migrainosus- Primary [facility] [place] [facility]* Diagnosis Chronic migraine without aura, intractable, without status migrainosus- Primary [facility] [place] [facility]* Diagnosis SVT (supraventricular tachycardia) (HCC)- Primary Other specified cardiac dysrhythmias Atrial tachycardia (HCC) Other specified cardiac dysrhythmias [facility] [place] [facility]* Diagnosis Acute pain of right knee [facility] [place] [facility]* Diagnosis Acute pain of right shoulder [facility] [place] [facility]* Diagnosis Abrasion of right cornea, initial encounter- Primary [facility] [place] [facility]* Diagnosis Menorrhagia with regular cycle- Primary Excessive or frequent menstruation Iron malabsorption Other specified intestinal malabsorption Iron deficiency anemia due to chronic blood loss Iron deficiency anemia secondary to blood loss (chronic) [facility] [place] [facility]* Diagnosis Foot pain, bilateral Pain in limb Plantar fasciitis Plantar fascial fibromatosis [facility] [place] [facility]* Diagnosis Palpitations Chest pain, unspecified type [facility] [place] [facility]* Diagnosis Chronic right-sided low back pain with right-sided sciatica [facility] [place] [facility]* Diagnosis Menorrhagia with regular cycle- Primary Excessive or frequent menstruation Iron malabsorption Other specified intestinal malabsorption Iron deficiency anemia due to chronic blood loss Iron deficiency anemia secondary to blood loss (chronic) [facility] [place] [facility]* Diagnosis Menorrhagia with regular cycle- Primary Excessive or frequent menstruation Iron malabsorption Other specified intestinal malabsorption Iron deficiency anemia due to chronic blood loss Iron deficiency anemia secondary to blood loss (chronic) [facility] [place] [facility]* Diagnosis Anxiety with depression [facility] [place] [facility]* Diagnosis Iron deficiency anemia due to chronic blood loss- Primary Iron deficiency anemia secondary to blood loss (chronic) Menorrhagia with regular cycle Excessive or frequent menstruation Iron malabsorption Other specified intestinal malabsorption [facility] [place] [facility]* Diagnosis Hypertension, essential- Primary Unspecified essential hypertension BLAISE (obstructive sleep apnea) Obstructive sleep apnea (adult) (pediatric) Gastroesophageal reflux disease, unspecified whether esophagitis present Prediabetes Other abnormal glucose Palpitations Intractable chronic 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 Chronic migraine without aura, with intractable migraine, so stated, without mention of status migrainosus Menorrhagia with regular cycle Excessive or frequent menstruation Iron deficiency anemia due to chronic blood loss Iron deficiency anemia secondary to blood loss (chronic) Asthma, unspecified asthma severity, unspecified whether complicated, unspecified whether persistent Anxiety with depression Vitamin D deficiency Unspecified vitamin D deficiency General counseling and advice for contraceptive management Other general counseling and advice for contraceptive management Screening for diabetes mellitus Screening cholesterol level Screening for lipoid disorders Class 3 severe obesity with serious comorbidity and body mass index (BMI) of 40.0 to 44.9 in adult, unspecified obesity type (HCC) [facility] [place] [facility]* Diagnosis Worsening headaches- Primary Headache Visual changes Unspecified visual disturbance Confusion Unspecified psychosis [facility] [place] [facility]* Diagnosis Diarrhea, unspecified type- Primary Palpitations [facility] [place] [facility]* Diagnosis Encounter for IUD insertion- Primary Encounter for insertion of intrauterine contraceptive device Abnormal uterine bleeding Unspecified disorder of menstruation and other abnormal bleeding from female genital tract [facility] Diagnosis Encounter for routine checking of intrauterine contraceptive device (IUD)- Primary [facility] Diagnosis Abnormal mammogram- Primary Abnormal mammogram, unspecified [facility] Diagnosis Pelvic pain in female- Primary Unspecified symptom associated with female genital organs [facility] [place] [facility]* Diagnosis Encounter for routine checking of intrauterine contraceptive device (IUD)- Primary IUD (intrauterine device) in place Presence of intrauterine contraceptive device [facility] Diagnosis Pelvic pain in female- Primary Unspecified symptom associated with female genital organs [facility] Diagnosis Pelvic pain in female- Primary Unspecified symptom associated with female genital organs [facility] Diagnosis Encounter for IUD removal- Primary Encounter for removal of intrauterine contraceptive device [facility] Diagnosis Sinus disease- Primary Unspecified sinusitis (chronic) [facility] Diagnosis Worsening headaches Headache Visual changes Unspecified visual disturbance Confusion Unspecified psychosis [facility] [place] [facility]* Diagnosis Chronic migraine without aura, intractable, without status migrainosus- Primary [facility] [place] [facility]* Diagnosis Encounter for IUD removal- Primary Encounter for removal of intrauterine contraceptive device Abnormal uterine bleeding (AUB) [facility] [place] [facility]* Diagnosis Breast pain- Primary Mastodynia [facility] [place] [facility]* Diagnosis Abnormal mammogram- Primary Abnormal mammogram, unspecified [facility] [place] [facility]* Diagnosis Palpitations- Primary BLAISE (obstructive sleep apnea) Obstructive sleep apnea (adult) (pediatric) Primary hypertension Unspecified essential hypertension Mixed hyperlipidemia [facility] [place] [facility]* Diagnosis Abnormal mammogram Abnormal mammogram, unspecified [facility] [place] [facility]* Diagnosis Abnormal mammogram Abnormal mammogram, unspecified [facility] [place] [facility]* Diagnosis Diarrhea, unspecified type- Primary [facility] [place] [facility]* Diagnosis Diarrhea, unspecified type- Primary Elevated fecal calprotectin 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 [facility] [place] [facility]* Diagnosis Intractable chronic 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 Chronic migraine without aura, with intractable migraine, so stated, without mention of status migrainosus [facility] [place] [facility]* Diagnosis Hypertension, essential- Primary Unspecified essential hypertension BLAISE (obstructive sleep apnea) Obstructive sleep apnea (adult) (pediatric) Gastroesophageal reflux disease, unspecified whether esophagitis present Prediabetes Other abnormal glucose Palpitations Intractable chronic 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 Chronic migraine without aura, with intractable migraine, so stated, without mention of status migrainosus Asthma, unspecified asthma severity, unspecified whether complicated, unspecified whether persistent Anxiety with depression Vitamin D deficiency Unspecified vitamin D deficiency Class 3 severe obesity with serious comorbidity and body mass index (BMI) of 40.0 to 44.9 in adult, unspecified obesity type (HCC) [facility] [place] [facility]* Diagnosis BLAISE (obstructive sleep apnea)- Primary Obstructive sleep apnea (adult) (pediatric) Weight loss Loss of weight Chronic migraine without aura, intractable, without status migrainosus- [facility] Chronic migraine without aura, intractable, without status migrainosus- Primary [facility] Intractable chronic 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- Primary Chronic migraine without aura, with intractable migraine, so stated, without mention of status migrainosus [facility] Diagnosis Status migrainosus- Primary Variants of migraine, not elsewhere classified, without mention of intractable migraine without mention of status migrainosus [facility] Intractable chronic 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- Primary Chronic migraine without aura, with intractable migraine, so stated, without mention of status migrainosus [facility] Diagnosis Intractable chronic 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- Primary Chronic migraine without aura, with intractable migraine, so stated, without mention of status migrainosus Status migrainosus Variants of migraine, not elsewhere classified, without mention of intractable migraine without mention of status migrainosus [facility] Diagnosis Intractable chronic 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- Primary Chronic migraine without aura, with intractable migraine, so stated, without mention of status migrainosus [facility] Diagnosis Thrombocytosis- Primary Essential thrombocythemia Leukocytosis, unspecified type Iron malabsorption Other specified intestinal malabsorption [facility] Diagnosis Intestinal dysbiosis- Primary Diarrhea, unspecified type Eosinophilic gastroenteritis Hypertension, essential Unspecified essential hypertension Palpitations [facility] Diagnosis Nausea Nausea alone [facility] Diagnosis Intractable chronic 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 Chronic migraine without aura, with intractable migraine, so stated, without mention of status migrainosus Chronic migraine without aura, intractable, without status migrainosus- Primary [facility] Diagnosis Encounter for gynecological examination (general) (routine) without abnormal findings- [facility] Myalgia Mylagia and myositis, unspecified [facility] Author Salbador Fofana [facility] Note Date/Time October 24, 2024 12:3 1pm [facility] Medical Records Department [address] [place] [address] History & Physical Exam 10/24/24 1229 MR#: [id number] Acct: [id number] Name: MARIA ELENA GARAY Rep #:[id number] : 1990 34 From: Salbador Fofana DO PCP: Dr. Jes Fuentes MD Status:REG S DC Location: [place] [address] HPI - General General Date of Admission: 10/24/24 Date of Service: 10/24/24 Chief Complaint: GERD and Abdominal pain HPI Narrative MARIA ELENA GARAY, is a 34 F who presents for the evaluation of bloating and GERD. BGI established 1.21.25 with diarrhea x2 months. PCP ordered stool testing which was unremarkable besides a slight elevation in the calprotectin. She is s/p cholecystectomy. No hx of colonoscopy. She had an EGD in Jun 2023 without possible EOE. *Start colestipol 1 gram daily Colonoscopy 3..25; - Congested mucosa in the entire examined colon. Biopsied. - Diverticulosis in the recto-sigmoid colon and in the sigmoid colon. - Congested mucosa in the terminal ileum. Biopsied. *biopsy consistent with reactive lymphoid follicles which may be a pre curser toIBD OV 4.2.25; Pt now struggling with epigastric pain. She describes it as stabbing.Worse with oral intake. SHe has had issues dania this before and underwent EGD forit. She continues to have diarrhea but this is not her main concern. She did nottake the colestipol yet. [facility] Medical History Diabetes Wears glasses Anemia Back pain Injury of head and neck Difficulty swallowing Gastric reflux Non-smoker Sleep apnea History of echocardiogram History of stress test Hypertension Cardiology follow-up encounter History of irregular heartbeat Anxiety Arthritis Asthma Tonsillectomy planned Migraines Home Medications ?Medication ?Instructions ?Recorded ?Last Taken ?Type gabapentin 100 mg capsule 400 mg PO TID MIGRAINS 10/0410/23/24 History albuterol sulfate 90 mcg/actuation 1 - 2 puff inhalati on Q6H PRN PRN 03/22/18 07/20/21 History aerosol inhaler (ProAir HFA) Asthma venlafaxine 75 mg tablet 150 mg PO DAILY 04/30/1903/09 History cholecalciferol (vitamin D3) 125 125 mcg PO DAILY 03/1610/23/24 History mcg (5,000 unit) tablet melatonin 10 mg tablet 10 mg PO QHS PRN sleep 03/3107/19/21 History ubrogepant 50 mg tablet (Ubrelvy) 50 mg PO BID PRN russell gladis headache 07/20/21 Unknown History atogepant 60 mg tablet 60 mg PO DAILY 12/14/2310/14 History chlorzoxazone 500 mg tablet 500 mg PO TID 12/14/2303/09 History pantoprazole 40 mg tablet,delayed 40 mg PO BID 4 10/23/24 History release propranolol 80 mg capsule,24 80 mg PO DAILY 12/14/23 0 10/23/24 History hr,extended release rimegepant 75 mg disintegrating 75 mg PO ONCE PRN migr venkat headache 12/14/23 Unknown History tablet (Nurtec ODT) tramadol 50 mg tablet 50 mg PO TID PRN pain Unknown History diphenhydramine HCl 25 mg capsule 50 mg PO QHS 5 10/23/24 History (Aler-Cap) ergocalciferol (vitamin D2) 1,250 1,250 mcg PO QWEEK 0 08/02/24 Unknown History mcg (50,000 unit) capsule metformin 500 mg tablet,extended 1,000 mg PO BID 08/0210/23/24 History release 24 hr ondansetron 4 mg disintegrating 8 mg PO Q8H PRN PRN Na usea 08/02/24 10/23/24 History tablet topiramate 25 mg tablet 50 mg PO BID 08/02/24 History onabotulinumtoxinA 200 unit 100 unit subcut .Q 3 MONTH S 10/22/24 Unknown History solution for injection (Botox) Allergy/AdvReac Type Severity Reaction Status Date / Time Environmental Allergies: Allergy Mild sneezing, Verified 10/24/24 12:12 Uncoded (seasonal) metoclopramide (From Reglan) AdvReac severe Verified 10/24/24 12:12 anxious prochlorperazine (From AdvReac severe Verified 10/24/24 12:12 Compazine) anxious Family History Mother Thyroid cancer Skin cancer Hypertension Surgical History Hx of colonoscopy History of esophagogastroduodenoscopy (EGD) Hx of tubal ligation Hx of tonsillectomy History of appendectomy S/P cholecystectomy S/P left knee arthroscopy tubes clamped Social History household members: spouse Smoking Status: Never smoker alcohol intake: never substance use type: does not use ROS Constitutional Constitutional: Denies fatigue, fever(s), poor appetite, weight gain or weight loss Gastrointestinal Gastrointestinal: Denies belching, bloating, change in bowel habits, change in stool character, chewing difficulty, coffee ground emesis, constipation, cramping, diarrhea, dyspepsia, dysphagia, early satiety, excessive flatus, fecalincontinence, heartburn, hematemesis, hematochezia, hemorrhoids, loose stools, melena, nausea, odynophagia, rectal bleeding, tenesmus, vomiting or weight changes Vital Signs Vital Signs Vital Signs: 10/24/24 12:15 10/24/24 12:15 Temperature 98.0 F Temperature Source Temporal Pulse Rate 73 Respiratory Rate 14 Respiratory Pattern Normal Blood Pressure 121/56 H Blood Pressure Mean 77 Blood Pressure Source Monitor Blood Pressure Position Semi-Fowlers Blood Pressure Location Left Arm Pulse Ox 99 Oxygen Delivery Method Room Air Weight Weight: 205 lb 0.478 oz Body Mass Index (BMI) 34.1 Physical Exam Const alert, oriented x3, no apparent distress and healthy appearing General Appearance: cooperative GI normal to inspection, nondistended, normoactive bowel sounds, soft to palpation,non-tender and non-distended Percussion: normal to percussion Rectal Exam: deferred Assessment & Plan Assessment/Plan (1) Epigastric abdominal pain: (2) Eosinophilic esophagitis: (3) Abdominal pain: PLAN: Assessment and Plan Assessment and Plan (1) Abdominal pain: Status: Acute (2) Diarrhea: Status: Acute Plan: This is a 34 yo female pt here today for f/u after colonoscopy. Pt colonoscopy revealed lymphoid follicle which could represent a pre curse to IBD. SHe continues to have loose stools. She has not been able to try the colestipol yet.I encouraged she do this. If it does not give her any relief we will consider Budesonide. Pt has been having epigastric pain for the past month. She has had this before about one year. She will undergo EGD to assess her upper GI tract. Iprovided prescription and samples of Voquezna. SHe will f/u after her procedure -EGD -Voquezna -Start colestipol -Consider Budesonide -f/u after procedure Medications: New vonoprazan (Voquezna) 10 mg PO QDAY 30 tabs 2RF 10/24/24 1231 <Electronically signed by Salbador Fofana DO> Cosigner Signature (if applicable): CC: Dr. Jes Fuentes MD; Salbador Fofana DO~ Signed [facility] Work Phone: Hospital Discharge instructions Additional Instructions Call your neurologist tomorrow, and tell them that your CT scanning of the brain was negative. You can see if they want to add a different medication to your regime for your migraines.[facility] Work Phone: Reason for referral (narrative)* Diagnostic Procedure Only (Routine) - Authorized Specialty Diagnoses / Procedures Referred By Ana acharya Referred To Contact US IMAGING Diagnoses Goiter, nontoxic, multinodular Procedures US THYROID/PARATHYROID US SOFT TISSUE HEAD & NECK REAL TIME IMGE Jes Cabral MD [address] [place] [address] Us Imaging Referral ID Status Reason Start Date Expiration Date Visits Requested Visits Authorized [id number] Authorized Auto-Generat ed Referral 08/17/2021 09/16/2022 1 1 [facility] for referral (narrative)* Diagnostic Procedure Only (Routine) - Closed Specialty Diagnoses / Procedures Referred By Contac t Referred To Contact US IMAGING Diagnoses Goiter, nontoxic, multinodular Procedures US THYROID/PARATHYROID US SOFT TISSUE HEAD & NECK REAL TIME IMGE DOCM Jes Fuentes MD [address] [place] [address] Us Imaging Referral ID Status Reason Start Date Expiration Date V isits Requested Visits Authorized [id number] Closed Auto-Generate d Referral 08/17/2021 09/16/2022 1 1 [facility] for referral (narrative)* Diagnostic Procedure Only (Routine) - Closed Specialty Diagnoses / Procedures Referred By Contac t Referred To Contact XR IMAGING Diagnoses Chronic right-sided low back pain with right-sided sciatica Procedures XR LUMBAR GENERAL 3V AP/LAT/L5-S1 RADEX SPINE LUMBOSACRAL 2/3 VIEWS PodlogarSoraida APRN.CNP [address] [place] [address] Xr Imaging Referral ID Status Reason Start Date Expiration Date V isits Requested Visits Authorized [id number] Closed Auto-Generate d Referral 11/25/2021 12/25/2022 1 1 * Physical Therapy (Routine) - Authorized Specialty Diagnoses / Procedures Referred By Contac t Referred To Contact [facility] Diagnoses Chronic right-sided low back pain with right-sided sciatica Procedures CONSULT TO PHYSICAL THERAPY PHYSICAL THERAPY EVALUATION HIGH COMPLEX 45 MINS PodlogSoraida mercado APRN.CNP [address] [place] [address] [facility] [place] [address] [place] [address] Referral ID Status Reason Start Date Expiration Date Visits Requested Visits Authorized [id number] Authorized Auto-Generat ed Referral 05/16/2021 05/15/2022 20 20 [facility] Diagnostic Procedure Only (Routine) - Authorized Specialty Diagnoses / Procedures Referred By Contac t Referred To Contact MOLECULAR & FUNCTIONAL IMAGING Diagnoses Nausea Delayed gastric emptying Procedures NM GASTRIC EMPTYING SOLID GASTRIC EMPTYING STUDY Ofelia Delaney APRN.UI ARCHITECT [address] [place] [address] [facility] [address] [place] [id number] Referral ID Status Reason Start Date Expiration Date Visits Requested Visits Authorized [id number] Authorized Auto-Generat ed Referral 11/12/2022 12/12/2023 1 1 * Diagnostic Procedure Only (Routine) - Pending Review Specialty Diagnoses / Procedures Referred By Ana t Referred To Contact [facility] Diagnoses Fatigue, unspecified type Procedures HOME SLEEP APNEA TEST (HSAT) SLEEP STD AIRFLOW HRT RATE&O2 SAT EFFORT UNATT Ofelia Delaney APRN.UI ARCHITECT [address] [place] [address] [facility] [place] [address] [place] [id number] Referral ID Status Reason Start Date Expiration Date Visits Requested Visits Authorized [id number] Pending Review Auto-Generat ed Referral 11/12/2022 11/12/2023 1 1 [facility] for referral (narrative)* Outpatient Procedure (Routine) - Closed Specialty Diagnoses / Procedures [facility] Referred To Contact [facility] Diagnoses Dyspepsia Epigastric pain Nausea Procedures EGD DIAGNOSTIC ESOPHAGOGASTRODUODENOSC OPY TRANSORAL DIAGNOSTIC Nelly Loco MD [address] [place] [address] [facility] [place] [address] [place] [address] Referral ID Status Reason Start Date Expiration Date V isits Requested Visits Authorized [id number] Closed Auto-Generate d Referral 06/10/2023 06/10/2024 1 1 [facility] for referral (narrative)* Diagnostic Procedure Only (Routine) - Closed Specialty Diagnoses / Procedures [facility] Referred To Contact XR IMAGING Diagnoses Acute pain of right knee Procedures XR KNEE GENERAL 4V AP BOTH/PA BOTH/LAT/MERC RIGHT RADIOLOGIC EXAM KNEE COMPLETE 4/MORE VIEWS Jes Fuentes MD [address] [place] [address] [place] [id number] Referral ID Status Reason Start Date Expiration Date V isits Requested Visits Authorized [id number] Closed Auto-Generate d Referral 07/06/2023 08/04/2024 1 1 [facility] for referral (narrative)* Outpatient Procedure (Routine) - Pending Review Specialty Diagnoses / Procedures Referred By [facility] Referred To Contact [facility] Diagnoses Palpitations Procedures ECG COMPLETE ECG ROUTINE ECG W/LEAST 12 LDS W/I&R Tomasa Laguerre 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 [address] [place] [id number] [facility] [place] [address] [place] [address] Referral ID Status Reason Start Date Expiration Date Visits Requested Visits Authorized [id number] Pending Review Auto-Generat ed Referral 09/09/2023 09/08/2024 1 1 [facility] for referral (narrative)* Diagnostic Procedure Only (Routine) - Authorized Specialty Diagnoses / Procedures Referred By [facility] Referred To Contact BR IMAGING Diagnoses Mastalgia Mass overlapping multiple quadrants of right breast Procedures LEANN DIAGNOSTIC BILATERAL DIAGNOSTIC MAMMOGRAPHY COMPUTER-AIDED DETCJ Chio Oliveira, 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.UI ARCHITECT [address] [place] [address] [facility] [address] [place] [address] Referral ID Status Reason Start Date Expiration Date Visits Requested Visits Authorized [id number] Authorized Auto-Generat ed Referral 10/18/2023 11/16/2024 1 1 * Diagnostic Procedure Only (Routine) - Pending Review Specialty Diagnoses / Procedures Referred By Lamontac t Referred To Contact [facility] IMAGING Diagnoses Pelvic pain in female Procedures US FEMALE PELVIS TRANSVAG US TRANSVAGINAL Chio Ash APRN.CNP [address] [address] [place] [address] Referral ID Status Reason Start Date Expiration Date Visits Requested Visits Authorized [id number] Pending Review Auto-Generat ed Referral 10/18/2023 11/16/2024 1 1 * Diagnostic Procedure Only (Routine) - Pending Review Specialty Diagnoses / Procedures Referred By Ana t Referred To Contact [facility] Diagnoses Mass overlapping multiple quadrants of right breast Procedures US BREAST LTD RIGHT US BREAST UNI REAL TIME WITH IMAGE LIMITED Chio Ash APRN.UI ARCHITECT [address] [place] [address] [facility] [address] [place] [address] Referral ID Status Reason Start Date Expiration Date Visits Requested Visits Authorized [id number] Pending Review Auto-Generat ed Referral 10/18/2023 11/16/2024 1 1 * Diagnostic Procedure Only (Routine) - Pending Review Specialty Diagnoses / Procedures Referred By Ana t Referred To Contact [facility] Diagnoses Mastalgia Procedures US BREAST LTD LEFT US BREAST UNI REAL TIME WITH IMAGE LIMITED Chio Ash APRN.CNP [address] [place] [address] [facility] [address] [place] [address] Referral ID Status Reason Start Date Expiration Date Visits Requested Visits Authorized [id number] Pending Review Auto-Generat ed Referral 10/18/2023 11/16/2024 1 1 [facility] for referral (narrative)* Diagnostic Procedure Only (Routine) - Closed Specialty Diagnoses / Procedures Referred By Ana t Referred To Contact XR IMAGING Diagnoses Cervical radiculopathy Numbness and tingling in both hands Procedures XR CERV OTHER 4V AP/LAT/OBL RADEX SPINE CERVICAL 4 OR 5 VIEWS Tomasa Laguerre APRN.CNS [address] [place] [address] [place] [address] Referral ID Status Reason Start Date Expiration Date V isits Requested Visits Authorized [id number] Closed Auto-Generate d Referral 10/21/2023 11/19/2024 1 1 [facility] for referral (narrative)* Diagnostic Procedure Only (Routine) - Closed Specialty Diagnoses / Procedures Referred By Ana t Referred To Contact [facility] Diagnoses Mass overlapping multiple quadrants of right breast Procedures US BREAST LTD RIGHT US BREAST UNI REAL TIME WITH IMAGE LIMITED Chio Ash APRN.UI ARCHITECT [address] [place] [address] [facility] [address] [place] [address] Referral ID Status Reason Start Date Expiration Date V isits Requested Visits Authorized [id number] Closed Auto-Generate d Referral 11/09/2023 05/15/2024 1 1 * Diagnostic Procedure Only (Routine) - Closed Specialty Diagnoses / Procedures Referred By Ana t Referred To Contact [facility] Diagnoses Mastalgia Procedures US BREAST LTD LEFT US BREAST UNI REAL TIME WITH IMAGE LIMITED Chio Ash APRN.CNP [address] [place] [address] [facility] [address] [place] [address] Referral ID Status Reason Start Date Expiration Date V isits Requested Visits Authorized [id number] Closed Auto-Generate d Referral 11/09/2023 05/15/2024 1 1 [facility] for referral (narrative)* Diagnostic Procedure Only (Routine) - Authorized Specialty Diagnoses / Procedures Referred By Ana t Referred To Contact [facility] Diagnoses Abnormal mammogram Procedures US BREAST LTD RIGHT US BREAST UNI REAL TIME WITH IMAGE LIMITED Ken Hill MD [address] [place] [address] [facility] [address] [place] [phone] Referral ID Status Reason Start Date Expiration Date Visits Requested Visits Authorized [id number] Authorized Auto-Generat ed Referral 11/10/2023 12/09/2024 1 1 * Diagnostic Procedure Only (Routine) - Authorized Specialty Diagnoses / Procedures Referred By Ana t Referred To Contact [facility] Diagnoses Breast pain Procedures US BREAST LTD LEFT US BREAST UNI REAL TIME WITH IMAGE LIMITED Ken Hill MD [address] [place] [address] [facility] [address] [place] [phone] Referral ID Status Reason Start Date Expiration Date Visits Requested Visits Authorized [id number] Authorized Auto-Generat ed Referral 11/10/2023 12/09/2024 1 1 * Diagnostic Procedure Only (Routine) - Authorized Specialty Diagnoses / Procedures [facility] Referred To Contact [facility] Diagnoses Abnormal mammogram Procedures LEANN DIAGNOSTIC BILATERAL DIAGNOSTIC MAMMOGRAPHY COMPUTER-AIDED DETCJ BI Ken Hill MD [address] [place] [address] [facility] [address] [place] [phone] Referral ID Status Reason Start Date Expiration Date Visits Requested Visits Authorized [id number] Authorized Auto-Generat ed Referral 11/10/2023 12/09/2024 1 1 [facility] for referral (narrative)* Diagnostic Procedure Only (Routine) - Closed Specialty Diagnoses / Procedures Referred By Ana acharya Referred To Contact [facility] Diagnoses Abnormal mammogram Procedures US BREAST LTD RIGHT US BREAST UNI REAL TIME WITH IMAGE LIMITED Ken Hill MD [address] [place] [address] [facility] [address] [place] [phone] Referral ID Status Reason Start Date Expiration Date V isits Requested Visits Authorized [id number] Closed Auto-Generate d Referral 11/10/2023 12/09/2024 1 1 * Diagnostic Procedure Only (Routine) - Closed Specialty Diagnoses / Procedures Referred By Ana acharya Referred To Contact [facility] Diagnoses Breast pain Procedures US BREAST LTD LEFT US BREAST UNI REAL TIME WITH IMAGE LIMITED Ken Hill MD [address] [place] [address] [facility] [address] [place] [phone] Referral ID Status Reason Start Date Expiration Date V isits Requested Visits Authorized [id number] Closed Auto-Generate d Referral 11/10/2023 12/09/2024 1 1 [facility] for referral (narrative)* Outpatient Procedure (Routine) - New Request Specialty Diagnoses / Procedures Referred By Ana acharya Referred To Contact [facility] Diagnoses Palpitations Procedures ECG COMPLETE ECG ROUTINE ECG W/LEAST 12 LDS W/I&R Jes Fuentes MD [address] [place] [address] [facility] [place] [address] [place] [id number] Referral ID Status Reason Start Date Expiration Date Visits Requested Visits Authorized [id number] New Request Auto-Generat ed Referral 11/25/2023 11/24/2024 1 1 [facility] for referral (narrative)* Diagnostic Procedure Only (Routine) - Closed Specialty Diagnoses / Procedures Referred By Contac t Referred To Contact XR IMAGING Diagnoses Cervical radiculopathy Numbness and tingling in both hands Procedures XR CERV OTHER 4V AP/LAT/OBL RADEX SPINE CERVICAL 4 OR 5 VIEWS Tomasa Laguerre, 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.UI ARCHITECT [address] [place] [address] [place] [address] Referral ID Status Reason Start Date Expiration Date V isits Requested Visits Authorized [id number] Closed Auto-Generate d Referral 10/21/2023 11/19/2024 1 1 [facility] for referral (narrative)* Diagnostic Procedure Only (Routine) - Closed Specialty Diagnoses / Procedures Referred By Contac t Referred To Contact XR IMAGING Diagnoses Acute pain of right knee Procedures XR KNEE GENERAL 4V AP BOTH/PA BOTH/LAT/MERC RIGHT RADIOLOGIC EXAM KNEE COMPLETE 4/MORE VIEWS Jes Fuentes MD [address] [place] [address] [place] [address] Referral ID Status Reason Start Date Expiration Date V isits Requested Visits Authorized [id number] Closed Auto-Generate d Referral 07/06/2023 08/04/2024 1 1 [facility] for referral (narrative)* Diagnostic Procedure Only (Routine) - Closed Specialty Diagnoses / Procedures Referred By Contac t Referred To Contact XR IMAGING Diagnoses Acute pain of right shoulder Procedures XR SHOULDER GENERAL 3V OR MORE AP/TRUE AP/OTHER RIGHT RADEX SHOULDER COMPLETE MINIMUM 2 VIEWS Jes Fuentes MD [address] [place] [address] [place] [address] Referral ID Status Reason Start Date Expiration Date V isits Requested Visits Authorized [id number] Closed Auto-Generate d Referral 06/03/2023 07/02/2024 1 1 [facility] for referral (narrative)* Diagnostic Procedure Only (Routine) - Closed Specialty Diagnoses / Procedures Referred By Contac t Referred To Contact XR IMAGING Diagnoses Foot pain, bilateral Plantar fasciitis Procedures XR FOOT GENERAL 3V AP/LAT/OBL BILATERAL RADEX FOOT COMPLETE MINIMUM 3 VIEWS Jes Fuentes MD [address] [place] [address] [place] [address] Referral ID Status Reason Start Date Expiration Date V isits Requested Visits Authorized [id number] Closed Auto-Generate d Referral 04/12/2022 05/12/2023 1 1 [facility] for referral (narrative)* Diagnostic Procedure Only (Routine) - Closed Specialty Diagnoses / Procedures Referred By Contac t Referred To Contact XR IMAGING Diagnoses Chronic right-sided low back pain with right-sided sciatica Procedures XR LUMBAR GENERAL 3V AP/LAT/L5-S1 RADEX SPINE LUMBOSACRAL 2/3 VIEWS Soraida Gardner APRN.MARISELA [address] [place] [address] [place] [id number] Referral ID Status Reason Start Date Expiration Date V isits Requested Visits Authorized [id number] Closed Auto-Generate d Referral 11/25/2021 12/25/2022 1 1 [facility] for referral (narrative)* Outpatient Procedure (Routine) - New Request Specialty Diagnoses / Procedures Referred By Contac t Referred To Contact [facility] Diagnoses Abnormal uterine bleeding Procedures ENDOMETRIAL BIOPSY ENDOMETRIAL BX W/WO ENDOCERVIX BX W/O DILAT SPX Mary Kumar APRN.UI ARCHITECT [address] [place] [address] [facility] [place] [address] [place] [address] Referral ID Status Reason Start Date Expiration Date Visits Requested Visits Authorized [id number] New Request Auto-Generat ed Referral 4 03/09/2025 1 1 * Outpatient Procedure (Routine) - New Request Specialty Diagnoses / Procedures Referred By Ana t Referred To Contact [facility] Diagnoses Encounter for IUD insertion Procedures INSERT INTRAUTERINE DEVICE LEVONORGESTREL IU 52MG 5 YR INSERT INTRAUTERINE DEVICE Mary Kumar APRN.CNP [address] [place] [address] [address] Referral ID Status Reason Start Date Expiration Date Visits Requested Visits Authorized [id number] New Request Auto-Generat ed Referral 4 03/09/2025 1 1 [facility] for referral (narrative)* Diagnostic Procedure Only (Routine) - Authorized Specialty Diagnoses / Procedures Referred By Ana acharya Referred To Contact [facility] Diagnoses Encounter for routine checking of intrauterine contraceptive device (IUD) Procedures PELVIC US WHI US PELVIC NONOBSTETRIC REAL-TIME IMAGE COMPLETE Mary Kumar APRN.CNP [address] [place] [address] [facility] [address] [place] [id number] Referral ID Status Reason Start Date Expiration Date Visits Requested Visits Authorized [id number] Authorized Auto-Generat ed Referral 03/19/2024 03/19/2025 1 1 [facility] for referral (narrative)* Diagnostic Procedure Only (Routine) - New Request Specialty Diagnoses / Procedures Referred By Lamontac t Referred To Contact BR IMAGING Diagnoses Abnormal mammogram Procedures US BREAST LTD LEFT US BREAST UNI REAL TIME WITH IMAGE LIMITED Mary Kumar APRN.CNP [address] [place] [address] [facility] [address] [place] [address] Referral ID Status Reason Start Date Expiration Date Visits Requested Visits Authorized [id number] New Request Auto-Generat ed Referral 03/21/2024 04/20/2025 1 1 * Diagnostic Procedure Only (Routine) - New Request Specialty Diagnoses / Procedures Referred By Contac t Referred To Contact BR IMAGING Diagnoses Abnormal mammogram Procedures US BREAST LTD RIGHT US BREAST UNI REAL TIME WITH IMAGE LIMITED Mary Kumar APRN.UI ARCHITECT [address] [place] [address] [facility] [address] [place] [address] Referral ID Status Reason Start Date Expiration Date Visits Requested Visits Authorized [id number] New Request Auto-Generat ed Referral 03/21/2024 04/20/2025 1 1 * Diagnostic Procedure Only (Routine) - New Request Specialty Diagnoses / Procedures Referred By Lamontac t Referred To Contact BR IMAGING Diagnoses Abnormal mammogram Procedures LEANN DIAGNOSTIC BILATERAL DIAGNOSTIC MAMMOGRAPHY COMPUTER-AIDED DETCJ BI Mary Kumar APRN.UI ARCHITECT [address] [place] [address] [facility] [address] [place] [address] Referral ID Status Reason Start Date Expiration Date Visits Requested Visits Authorized [id number] New Request Auto-Generat ed Referral 03/21/2024 04/20/2025 1 1 [facility] Outpatient Procedure (Routine) - Authorized Specialty Diagnoses / Procedures Referred By Contac t Referred To Contact [facility] Diagnoses Pelvic pain in female Procedures REMOVE INTRAUTERINE DEVICE REMOVE INTRAUTERINE DEVICE Danish Hernandez MD [address] [place] [address] [facility] [address] [place] [address] Referral ID Status Reason Start Date Expiration Date Visits Requested Visits Authorized [id number] Authorized Auto-Generat ed Referral 4 03/26/2025 1 1 [facility] for referral (narrative)* Diagnostic Procedure Only (Routine) - New Request Specialty Diagnoses / Procedures Referred By Ana t Referred To Contact BR IMAGING Diagnoses Abnormal mammogram Procedures US BREAST LTD RIGHT US BREAST UNI REAL TIME WITH IMAGE LIMITED Mary Kumar APRN.CNP [address] [place] [address] [facility] [address] [place] [phone] Referral ID Status Reason Start Date Expiration Date Visits Requested Visits Authorized [id number] New Request Auto-Generat ed Referral 4 06/13/2025 1 1 * Diagnostic Procedure Only (Routine) - New Request Specialty Diagnoses / Procedures Referred By Ana acharya Referred To Contact BR IMAGING Diagnoses Abnormal mammogram Procedures US BREAST LTD LEFT US BREAST UNI REAL TIME WITH IMAGE LIMITED Mary Kumar APRN.CNP [address] [place] [address] [facility] [address] [place] [phone] Referral ID Status Reason Start Date Expiration Date Visits Requested Visits Authorized [id number] New Request Auto-Generat ed Referral 4 06/13/2025 1 1 * Diagnostic Procedure Only (Routine) - New Request Specialty Diagnoses / Procedures Referred By Ana t Referred To Contact [facility] Diagnoses Abnormal mammogram Procedures LEANN DIAGNOSTIC BILATERAL DIAGNOSTIC MAMMOGRAPHY COMPUTER-AIDED DETCJ BI Mary Kumar APRN.CNP [address] [place] [address] [facility] [address] [place] [address] Referral ID Status Reason Start Date Expiration Date Visits Requested Visits Authorized [id number] New Request Auto-Generat ed Referral 4 06/13/2025 1 [facility] Procedure (Routine) - New Request Specialty Diagnoses / Procedures Referred By Contac t Ref[facility] Diagnoses Palpitations BLAISE (obstructive sleep apnea) Primary hypertension Mixed hyperlipidemia Procedures ECHO ECHO TTHRC R-T 2D W/WOM-MODE COMPL SPEC&COLR D Hilda Orellana DO [address] [place] [address] [facility] [address] [place] [address] Referral ID Status Reason Start Date Expiration Date Visits Requested Visits Authorized [id number] New Request Auto-Generat ed Referral 4 05/14/2025 1 1 * Consult, Test, Treat (Routine) - Authorized Specialty Diagnoses / Procedures Referred By Contac t Referred To Contact Diagnoses Palpitations BLAISE (obstructive sleep apnea) Procedures CONSULT TO SLEEP MEDICINE - ADULT OFFICE/OUTPATIENT NEW HIGH MDM 60 MINUTES Hilda Orellana DO [address] [place] [address] Referral ID Status Reason Start Date Expiration Date Visits Requested Visits Authorized [id number] Authorized PCP Requested Referral 4 05/14/2025 1 1 [facility]No reason for referral information availableWNor[facility] Work Phone: Reason for visit Narrative* Diagnostic Procedure Only (Routine) - Closed Specialty Diagnoses / Procedures Referred By Contac t Referred To Contact US IMAGING Diagnoses Pelvic pain in female Procedures US FEMALE PELVIS TRANSVAG US TRANSVAGINAL Chio Ash APRN.CNP [address] [place] [address] [place] [address] Referral ID Status Reason Start Date Expiration Date V isits Requested Visits Authorized [id number] Closed Auto-Generate d Referral 10/18/2023 11/16/2024 1 1 [facility] for visit Narrative* Diagnostic Procedure Only (Routine) - Closed Specialty Diagnoses / Procedures Referred By Contac t Referred To Contact BR IMAGING Diagnoses Mastalgia Mass overlapping multiple quadrants of right breast Procedures LEANN DIAGNOSTIC BILATERAL DIAGNOSTIC MAMMOGRAPHY COMPUTER-AIDED DETCJ Chio Oliveira, 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.UI ARCHITECT [address] [place] [address] [facility] [address] [place] [address] Referral ID Status Reason Start Date Expiration Date V isits Requested Visits Authorized [id number] Closed Auto-Generate d Referral 10/18/2023 11/16/2024 1 1 [facility] for visit Narrative* Diagnostic Procedure Only (Routine) - Closed Specialty Diagnoses / Procedures Referred By Contac t Referred To Contact BR IMAGING Diagnoses Abnormal mammogram Procedures LEANN DIAGNOSTIC BILATERAL DIAGNOSTIC MAMMOGRAPHY COMPUTER-AIDED DETCJ BI Ken Hill MD [address] [place] [address] [facility] [address] [place] [address] Referral ID Status Reason Start Date Expiration Date V isits Requested Visits Authorized [id number] Closed Auto-Generate d Referral 11/10/2023 12/09/2024 1 1 [facility] for visit Narrative* Diagnostic Procedure Only (Routine) - Closed Specialty Diagnoses / Procedures Referred By Contac t Referred To Contact XR IMAGING Diagnoses Cervical radiculopathy Procedures XR NECK SOFT TISSUE 2V AP/LAT RADIOLOGIC EXAMINATION NECK SOFT TISSUE Tomasa Laguerre, 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.UI ARCHITECT [address] [place] [address] [place] [address] Referral ID Status Reason Start Date Expiration Date V isits Requested Visits Authorized [id number] Closed Auto-Generate d Referral 10/21/2023 11/19/2024 1 1 [facility] for visit Narrative* Diagnostic Procedure Only (Routine) - Closed Specialty Diagnoses / Procedures Referred By Contac t Referred To Contact XR IMAGING Diagnoses Acute pain of right knee Procedures XR KNEE GENERAL 4V AP BOTH/PA BOTH/LAT/MERC RIGHT RADIOLOGIC EXAM KNEE COMPLETE 4/MORE VIEWS Jes Fuentes MD [address] [place] [address] [place] [address] Referral ID Status Reason Start Date Expiration Date V isits Requested Visits Authorized [id number] Closed Auto-Generate d Referral 07/06/2023 08/04/2024 1 1 [facility] for visit Narrative* Diagnostic Procedure Only (Routine) - Closed Specialty Diagnoses / Procedures Referred By Contac t Referred To Contact XR IMAGING Diagnoses Acute pain of right shoulder Procedures XR SHOULDER GENERAL 3V OR MORE AP/TRUE AP/OTHER RIGHT RADEX SHOULDER COMPLETE MINIMUM 2 VIEWS Jes Fuentes MD [facility] [place] [address] [place] [address] Referral ID Status Reason Start Date Expiration Date V isits Requested Visits Authorized [id number] Closed Auto-Generate d Referral 06/03/2023 07/02/2024 1 1 [facility] for visit Narrative* Diagnostic Procedure Only (Routine) - Closed Specialty Diagnoses / Procedures Referred By Contac t Referred To Contact XR IMAGING Diagnoses Foot pain, bilateral Plantar fasciitis Procedures XR FOOT GENERAL 3V AP/LAT/OBL BILATERAL RADEX FOOT COMPLETE MINIMUM 3 VIEWS Jes Fuentes MD [facility] [place] [address] [place] [address] Referral ID Status Reason Start Date Expiration Date V isits Requested Visits Authorized [id number] Closed Auto-Generate d Referral 04/12/2022 05/12/2023 1 1 [facility] for visit Narrative* Diagnostic Procedure Only (Routine) - Closed Specialty Diagnoses / Procedures Referred By Contac t Referred To Contact XR IMAGING Diagnoses Chronic right-sided low back pain with right-sided sciatica Procedures XR LUMBAR GENERAL 3V AP/LAT/L5-S1 RADEX SPINE LUMBOSACRAL 2/3 VIEWS PodlogarSoraida APRN.UI ARCHITECT [address] [place] [address] [place] [address] Referral ID Status Reason Start Date Expiration Date V isits Requested Visits Authorized [id number] Closed Auto-Generate d Referral 11/25/2021 12/25/2022 1 1 [facility] for visit Narrative* Diagnostic Procedure Only (Routine) - Closed Specialty Diagnoses / Procedures Referred By Ana t Referred To Contact [facility] Diagnoses Encounter for routine checking of intrauterine contraceptive device (IUD) Procedures PELVIC US WHI US PELVIC NONOBSTETRIC REAL-TIME IMAGE COMPLETE Mary Kumar APRN.UI ARCHITECT [address] [place] [address] [facility] [address] [place] [address] Referral ID Status Reason Start Date Expiration Date V isits Requested Visits Authorized [id number] Closed Auto-Generate d Referral 03/19/2024 03/19/2025 1 1 [facility] for visit Narrative* Diagnostic Procedure Only (Routine) - Closed Specialty Diagnoses / Procedures Referred By Ana t Referred To Contact BR IMAGING Diagnoses Abnormal mammogram Procedures US BREAST LTD LEFT US BREAST UNI REAL TIME WITH IMAGE LIMITED Mary Kumar APRN.UI ARCHITECT [address] [place] [address] [facility] [address] [place] [address] Referral ID Status Reason Start Date Expiration Date V isits Requested Visits Authorized [id number] Closed Auto-Generate d Referral 03/21/2024 04/20/2025 1 1 [facility] for visit Narrative* Diagnostic Procedure Only (Routine) - Closed Specialty Diagnoses / Procedures Referred By Ana t Referred To Contact BR IMAGING Diagnoses Abnormal mammogram Procedures LEANN DIAGNOSTIC BILATERAL DIAGNOSTIC MAMMOGRAPHY COMPUTER-AIDED DETCJ BI Mary Kumar APRN.UI ARCHITECT [address] [place] [address] [facility] [address] [place] [address] Referral ID Status Reason Start Date Expiration Date V isits Requested Visits Authorized [id number] Closed Auto-Generate d Referral 03/21/2024 04/20/2025 1 1 [facility] for visit Narrative* Injectable (Routine) - Authorized Specialty Diagnoses / Procedures Referred By Contac t Referred To Contact Neurology / HEADACHE Diagnoses DHE 1 Procedures INFUSION HEADACHE [facility] [address] [place] [address] Phone: tel: fax: Referral ID Status Reason Start Date Expiration Date V isits Requested Visits Authorized [id number] Authorized 07/18/2024 10/16/2024 1 99 [facility] Summary Purpose Family History Relationship Condition Age at Onset Recorded Date/T wilbert mother Malignant neoplasm of thyroid gland Unkno wn Malignant neoplasm of skin Unknown Hypertension Unknown Advance Directives Documents on File Type Date Recorded Patient Systems Admin Expl anation Advance Directive(s) 01/13/2016 7:59 AM Advance Directive(s) 01/12/2016 10:43 AM Documents on File Type Date Recorded Patient Systems Admin Expl anation Advance Directive(s) 01/13/2016 7:59 AM Advance Directive(s) 01/12/2016 10:43 AM Advance Directive Response Recorded Date/ Time Advance Directives No June 20, 2016 4:29pm Living Will No September 30, 2021 5 :45pm Power of Blender / Cook No September 30, 2021 5:45pm Advance Directive Response Recorded Date/ Time Advance Directives No June 20, 2016 3:29pm Living Will No May 26 5:13pm Power of Blender / Cook No May 26, 2022 5:13pm Advance Directive Response Recorded Date/ Time Living Will No August 02, 2024 9:48am Do you have a Healthcare Power of Blender / Cook? No August 02, 2024 9:48am Advance Directives No June 20, 2016 4:29pm Advance Directive Response Recorded Date/ Time Living Will No August 02, 2024 9:48am Do you have a Healthcare Power of Blender / Cook? No August 02, 2024 9:48am Living Will No August 13, 2024 4:11pm Do you have a Healthcare Power of Blender / Cook? No August 13, 2024 4:11pm Advance Directives No June 20, 2016 4:29pm Advance Directive Response Recorded Date/ Time Advance Directives No August 14 1:23pm Living Will No August 02, 2024 9:48am Do you have a Healthcare Power of Blender / Cook? No August 02, 2024 9:48am Living Will No August 13, 2024 4:11pm Do you have a Healthcare Power of Blender / Cook? No August 13, 2024 4:11pm Do you have a Healthcare Power of Blender / Cook? No October 22, 2024 10:14am Chief Complaint and Reason for Visit Chief Complaint Admit Date Diarrhea June 05, 2024 2 :18pm GI BLEED August 13, 2024 2:3 2pm Reason for Visit Admit Date Diarrhea June 05, 2024 2 :18pm Diarrhea August 06, 2024 7:5 9am Elevated fecal calprotectin August 06, 2024 7:59am Epigastric abdominal pain August 06 7:59am Chief Complaint ACUTE ASTHMA EXACERB ATION ACUTE ASTHMA EXACERBATION ACUTE ASTHMA EXACERBATION headache Reason for Visit Asthma exacerbation Chief Complaint CHEST PAIN CHEST PAIN headache Chief Complaint Admit Date Diarrhea June 05, 2024 2 :18pm Chief Complaint Admit Date Diarrhea August 06, 2024 9:0 0am GI BLEED August 13, 2024 2:3 2pm Abdominal pain 2024 2:30 pm Reason for Visit Admit Date Diarrhea August 06, 2024 7:5 9am Elevated fecal calprotectin August 06, 2024 7:59am Epigastric abdominal pain August 06 7:59am Abdominal pain 2024 2:30 pm Diarrhea 2024 2:30 pm Abdominal pain October 24, 2024 11:2 6am Eosinophilic esophagitis October 24, 2024 11:26am Epigastric abdominal pain October 24 11:26am Chief Complaint Admit Date Diarrhea August 06, 2024 9:0 0am GI BLEED August 13, 2024 2:3 2pm Abdominal pain 2024 2:30 pm FU November 07, 2024 12:2 5pm Reason for Visit Admit Date Diarrhea August 06, 2024 7:5 9am Elevated fecal calprotectin August 06, 2024 7:59am Epigastric abdominal pain August 06 7:59am Abdominal pain 2024 2:30 pm Diarrhea 2024 2:30 pm Abdominal pain October 24, 2024 11:2 6am Eosinophilic esophagitis October 24, 2024 11:26am Epigastric abdominal pain October 24 11:26am Diarrhea November 07, 2024 12:2 5pm Nausea and vomiting November 07, 2024 12:2 5pm Medications Administered Section Active Administered Medications - up to 3 most recent administrations Medication Order MAR Action Action Date Dose Rate Site onabotulinum toxin type A 200 Units injection (BOTOX) 200 Units, INTRADERMAL, EVERY 3 MONTHS, First dose on Tue04/08/21 at 0000, Until Discontinued, This record documents the total dose provided to patient. See progress note for specific locations and amounts administered. Given 02/02/2022 2:45 PM EDT 200 Units Othe r Given 04/08/2021 12:00 AM EST 200 Units O ther Inactive Administered Medications - up to 3 most recent administrations Medication Order MAR Action Action Date Dose Rate Site onabotulinum toxin type A 200 Units injection (BOTOX) 200 Units, OTHER, ONCE, 1 dose, On Tue05/04/22 at 1300, This record documents the total dose provided to patient. See progress note for specific locations and amounts administered. REFRIGERATE - Pharmaceutical Waste: Lab Pack - Given 05/04/2022 1:31 PM EST 200 Units Inactive Administered Medications - up to 3 most recent administrations Medication Order MAR Action Action Date Dose Rate Site dihydroergotamine 0.25 mg in NaCl 0.9% 50 mL 0.25 mg, INTRAVENOUS, at 150 mL/hr, Administer over 20 Minutes, EVERY 30 MINUTES, 4 doses, First dose on Tue06/09/22 at 0930, Last dose on Tue06/09/22 at 1100, LOADING DOSE Wait 15 minutes between doses Hazardous Potential Reproductive Risk Drug: Use appropriate PPE. New Bag/Syringe/Bottle 06/09/2022 12:30 PM EST 0.25 mg 150 mL/hr New Bag/Syringe/Bottle 06/09/2022 11:11 AM EST 0.25 mg 150 mL/hr New Bag/Syringe/Bottle 06/09/2022 10:44 AM EST 0.25 mg 150 mL/hr diphenhydrAMINE 25 mg injection (BENADRYL) 25 mg, INTRAVENOUS, NEEDED, 2 doses, Starting on Tue06/09/22 at 0922, Until Tue06/09/22 at 1703, Sedation/Dystonia/Akathisia/ Anxiety 3rd line Given 06/09/2022 9:10 AM EST 25 mg keTORolac 30 mg injection (TORADOL) 30 mg, INTRAVENOUS, ONCE, 1 dose, On Tue06/09/22 at 0930, Ketorolac (Toradol) is indicated for the short-term (up to 5 days) management of moderately severe acute pain. Continuation of ketorolac (Toradol) beyond 5 days increases the risk of developing serious adverse events. Please verify the duration of therapy for ketorolac (Toradol)., If ordered PRN for pain, patient/guardian may elect to receive this medication for higher pain levels INSTEAD of the opioid, if preferred: N/A Given 06/09/2022 9:35 AM EST 30 mg magnesium sulfate 1 g in D5W 100 mL 1 g, INTRAVENOUS, at 100-200 mL/hr, Administer over 0.5-1 Hours, ONCE, 1 dose, On Tue06/09/22 at 0930, Magnesium Sulfate IV bolus will be infused at a rate of 1 gram/hr. The following care areas may administer a magnesium sulfate bolus at a rate of 2 grams/hr if necessary: 1) ICUs/PACU/ED 2) Adult Hematology/Oncology 3) Labor and Delivery 4) Cardiac Step Down 5) Headache Clinic The following care areas may administer a magnesium sulfate bolus at a rate of GREATER than 2 grams/hr if necessary: 1) Adult and Pediatric Asthma Exacerbations 2) Torsade de Pointes 3) Pediatric BMT and Hematology/Oncology 4) Eclampsia or Preeclampsia New Bag/Syringe/Bottle 06/09/2022 1:10 PM EST 1 g 100 mL/hr methocarbamol iv infusion 1,000 mg in NaCl 0.9% 100 mL (ROBAXIN) 1,000 mg, INTRAVENOUS, Administer over 30 Minutes, ONCE, 1 dose, On Tue06/09/22 at 0930, Administer IV while in recumbent position. Maintain position for at least 10-15 minutes following infusion. New Bag/Syringe/Bottle 06/09/2022 9:36 AM EST 1,000 mg ondansetron (PF) 8 mg injection (ZOFRAN) 8 mg, INTRAVENOUS, ONCE, 1 dose, On Tue06/09/22 at 0930 Given 06/09/2022 9:36 AM EST 8 mg ondansetron (PF) 8 mg injection (ZOFRAN) 8 mg, INTRAVENOUS, EVERY 1 HOUR NEEDED, 2 doses, Starting on Tue06/09/22 at 0922, Until Tue06/09/22 at 1703, Nausea/Vomiting - First Line - Parenteral Given 06/09/2022 11:36 AM EST 8 mg promethazine 25 mg tab(s) (PHENERGAN) 25 mg, ORAL, NOW, 1 dose, On Tue06/09/22 at 1400 Given 06/09/2022 1:59 PM EST 25 mg valproate sodium 1,000 mg in NaCl 0.9% 50 mL (DEPACON) 1,000 mg, INTRAVENOUS, at 150 mL/hr, Administer over 20 Minutes, ONCE, 1 dose, On Tue06/09/22 at 0930, Hazardous Potential Reproductive Risk Drug: Use appropriate PPE. New Bag/Syringe/Bottle 06/09/2022 11:50 AM EST 1,000 mg 150 mL/hr Inactive Administered Medications - up to 3 most recent administrations Medication Order MAR Action Action Date Dose Rate Site dihydroergotamine 0.5 mg in NaCl 0.9% 50 mL 0.5 mg, INTRAVENOUS, at 100 mL/hr, Administer over 30 Minutes, EVERY 30 MINUTES, 2 doses, First dose on Tue06/11/22 at 0830, Last dose on Tue06/11/22 at 0900, Hazardous Potential Reproductive Risk Drug: Use appropriate PPE. New Bag/Syringe/Bottle 06/11/2022 10:40 AM EST 0.5 mg 100 mL/hr New Bag/Syringe/Bottle 06/11/2022 9:56 AM EST 0.5 mg 1 00 mL/hr diphenhydrAMINE 25 mg injection (BENADRYL) 25 mg, INTRAVENOUS, NEEDED, 2 doses, Starting on Tue06/11/22 at 0821, Until Tue06/11/22 at 1617, Sedation/Dystonia/Akathisia/ Anxiety 3rd line Given 06/11/2022 9:02 AM EST 25 mg keTORolac 30 mg injection (TORADOL) 30 mg, INTRAVENOUS, ONCE, 1 dose, On Tue06/11/22 at 0830, Ketorolac (Toradol) is indicated for the short-term (up to 5 days) management of moderately severe acute pain. Continuation of ketorolac (Toradol) beyond 5 days increases the risk of developing serious adverse events. Please verify the duration of therapy for ketorolac (Toradol)., If ordered PRN for pain, patient/guardian may elect to receive this medication for higher pain levels INSTEAD of the opioid, if preferred: N/A Given 06/11/2022 9:05 AM EST 30 mg magnesium sulfate 1 g in D5W 100 mL 1 g, INTRAVENOUS, at 100-200 mL/hr, Administer over 0.5-1 Hours, ONCE, 1 dose, On Tue06/11/22 at 0830, Magnesium Sulfate IV bolus will be infused at a rate of 1 gram/hr. The following care areas may administer a magnesium sulfate bolus at a rate of 2 grams/hr if necessary: 1) ICUs/PACU/ED 2) Adult Hematology/Oncology 3) Labor and Delivery 4) Cardiac Step Down 5) Headache Clinic The following care areas may administer a magnesium sulfate bolus at a rate of GREATER than 2 grams/hr if necessary: 1) Adult and Pediatric Asthma Exacerbations 2) Torsade de Pointes 3) Pediatric BMT and Hematology/Oncology 4) Eclampsia or Preeclampsia New Bag/Syringe/Bottle 06/11/2022 11:42 AM EST 1 g 100 mL/hr methocarbamol iv infusion 1,000 mg in NaCl 0.9% 100 mL (ROBAXIN) 1,000 mg, INTRAVENOUS, Administer over 30 Minutes, ONCE, 1 dose, On Tue06/11/22 at 0830, Administer IV while in recumbent position. Maintain position for at least 10-15 minutes following infusion. New Bag/Syringe/Bottle 06/11/2022 9:09 AM EST 1,000 mg ondansetron (PF) 8 mg injection (ZOFRAN) 8 mg, INTRAVENOUS, ONCE, 1 dose, On Tue06/11/22 at 0830 Given 06/11/2022 9:00 AM EST 8 mg ondansetron (PF) 8 mg injection (ZOFRAN) 8 mg, INTRAVENOUS, EVERY 1 HOUR NEEDED, 2 doses, Starting on Tue06/11/22 at 0821, Until Tue06/11/22 at 1247, Nausea/Vomiting - First Line - Parenteral Given 06/11/2022 12:47 PM EST 8 mg Given 06/11/2022 10:02 AM EST 8 mg promethazine 25 mg tab(s) (PHENERGAN) 25 mg, ORAL, ONCE, 1 dose, On Tue06/11/22 at 0830 Given 06/11/2022 11:44 AM EST 25 mg valproate sodium 1,000 mg in NaCl 0.9% 50 mL (DEPACON) 1,000 mg, INTRAVENOUS, at 150 mL/hr, Administer over 20 Minutes, ONCE, 1 dose, On Tue06/11/22 at 0830, Hazardous Potential Reproductive Risk Drug: Use appropriate PPE. New Bag/Syringe/Benjy le 06/11/2022 11:21 AM EST 1,000 mg 150 mL/hr Inactive Administered Medications - up to 3 most recent administrations Medication Order MAR Action Action Date Dose Rate Site onabotulinum toxin type A 200 Units injection (BOTOX) 200 Units, OTHER, ONCE, 1 dose, On Tue08/03/22 at 1300, This record documents the total dose provided to patient. See progress note for specific locations and amounts administered. REFRIGERATE - Pharmaceutical Waste: Lab Pack - Given 08/03/2022 1:28 PM EDT 200 Units Inactive Administered Medications - up to 3 most recent administrations Medication Order MAR Action Action Date Dose Rate Site onabotulinum toxin type A 200 Units injection (BOTOX) 200 Units, INTRAMUSCULAR, ONCE, 1 dose, On Tue11/02/22 at 1530, This record documents the total dose provided to patient. See progress note for specific locations and amounts administered. Given 11/02/2022 4:08 PM EDT 200 Units Othe r Inactive Administered Medications - up to 3 most recent administrations Medication Order MAR Action Action Date Dose Rate Site eptinezumab-jjmr 100 mg in NaCl 0.9% 100 mL (VYEPTI) 100 mg, INTRAVENOUS, at 200 mL/hr, Administer over 30 Minutes, ONCE, 1 dose, On Tue12/24/22 at 0830, EXP: Administer with 0.2 micron filter. New Bag/Syringe/Bottle 12/24/2022 8:42 AM EDT 100 mg 200 mL/hr Inactive Administered Medications - up to 3 most recent administrations Medication Order MAR Action Action Date Dose Rate Site onabotulinum toxin type A 200 Units injection (BOTOX) 200 Units, INTRAMUSCULAR, ONCE, 1 dose, On Tue02/01/23 at 1330, This record documents the total dose provided to patient. See progress note for specific locations and amounts administered. Given 02/01/2023 1:57 PM EDT 200 Units Othe r Inactive Administered Medications - up to 3 most recent administrations Medication Order MAR Action Action Date Dose Rate Site eptinezumab-jjmr 300 mg in NaCl 0.9% 100 mL (VYEPTI) 300 mg, INTRAVENOUS, at 200 mL/hr, Administer over 30 Minutes, ONCE, 1 dose, On Tue03/18/23 at 1030, EXP: Administer with 0.2 micron filter. New Bag/Syringe/Bottle 03/18/2023 10:52 AM EDT 300 mg 200 mL/hr Reason for Referral Specialty Diagnoses / Procedures Referred By Ana acharya Referred To Contact Podiatry Diagnoses Foot pain, bilateral Plantar fasciitis Procedures CONSULT TO PODIATRY OFFICE/OUTPATIENT [facility] 60-74 MINUTES Jes Fuentes MD [address] [place] [address] Referral ID Status Reason Start Date Expiration Date Visits Requested Visits Authorized [id number] Authorized PCP Requested Referral 04/12/2023 1 1 Specialty Diagnoses / Procedures Referred By Ana acharya Referred To Contact XR IMAGING Diagnoses Foot pain, bilateral Plantar fasciitis Procedures XR FOOT GENERAL 3V AP/LAT/OBL BILATERAL RADEX FOOT COMPLETE MINIMUM 3 VIEWS Jes Fuentes MD [address] [place] [address] Xr Imaging Referral ID Status Reason Start Date Expiration Date V isits Requested Visits Authorized [id number] Closed Auto-Generate d Referral 04/12/2022 05/12/2023 1 1 Specialty Diagnoses / Procedures Referred By Contac t Referred To Contact [facility] Diagnoses Foot pain, bilateral Plantar fasciitis Procedures CONSULT TO PHYSICAL THERAPY PHYSICAL THERAPY EVALUATION [facility] [address] [place] [address] [place] [address] [facility] [place] [address] [place] [address] Referral ID Status Reason Start Date Expiration Date Visits Requested Visits Authorized [id number] Pending Review Auto-Generat ed Referral 06/01/2022 06/01/2023 1 1 Specialty Diagnoses / Procedures Referred By Contac t Referred To Contact Diagnoses Leukocytosis, unspecified type Thrombocythemia Procedures CONSULT TO HEMATOLOGY/ONCOLOGY OFFICE/OUTPATIENT [facility] MDM 60-74 MINUTES Ofelia Delaney APRN.UI ARCHITECT [address] [place] [address] Referral ID Status Reason Start Date Expiration Date Visits Requested Visits Authorized [id number] Authorized PCP Requested Referral 11/15/2022 11/15/2023 1 1 Specialty Diagnoses / Procedures Referred By Contac t Referred To Contact [facility] Diagnoses Left-sided low back pain with right-sided sciatica, unspecified chronicity Stress incontinence Procedures CONSULT TO PHYSICAL THERAPY PHYSICAL THERAPY EVALUATION [facility] 45 MINS Ofelia Delaney APRN.UI ARCHITECT [address] [place] [address] [facility] [id number] [place] [address] Referral ID Status Reason Start Date Expiration Date Visits Requested Visits Authorized [id number] Pending Review Auto-Generat ed Referral 02/21/2023 02/21/2024 1 1 Specialty Diagnoses / Procedures Referred By Contac t Referred To Contact [facility] Diagnoses Left-sided low back pain with right-sided sciatica, unspecified chronicity Stress incontinence Procedures CONSULT TO PHYSICAL THERAPY PHYSICAL THERAPY EVALUATION [facility] 45 MINS THERAPEUTIC EXERCISES RE, EA 15 MIN. Ofelia Delaney APRN.UI ARCHITECT [address] [place] [address] [facility] [address] [address] Referral ID Status Reason Start Date Expiration Date Visits Requested Visits Authorized [id number] Authorized Auto-Generat ed Referral 09/13/2022 05/15/2023 20 20 Specialty Diagnoses / Procedures Referred By Contac t Referred To Contact Hematology Diagnoses Thrombocytosis Procedures CONSULT TO HEMATOLOGY OFFICE/OUTPATIENT [facility] MDM 60 MINUTES Tomasa Laguerre APRN.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 [address] [place] [address] Referral ID Status Reason Start Date Expiration Date Visits Requested Visits Authorized [id number] Authorized PCP Requested Referral 10/14/2023 10/13/2024 1 1 Specialty Diagnoses / Procedures Referred By Contac t Referred To Contact Gastroenterology Diagnoses Eosinophilic esophagitis Procedures CONSULT TO GASTROENTEROLOGY Nelly Loco MD [address] [place] [address] FriendSalbador, DO [address] [address] Referral ID Status Reason Start Date Expiration Date Visits Requested Visits Authorized [id number] Ref Not Required PCP Requested Referral 11/08/2023 11/07/2024 1 1 Specialty Diagnoses / Procedures Referred By Contac t Referred To Contact [facility] Diagnoses Pelvic pain in female Procedures CONSULT TO PHYSICAL THERAPY PHYSICAL THERAPY [facility] 45 MINS Mary Kumar APRN.UI ARCHITECT [address] [place] [address] [facility] [place] [address] [place] [address] Referral ID Status Reason Start Date Expiration Date Visits Requested Visits Authorized [id number] Pending Review Auto-Generat ed Referral 11/14/2023 11/13/2024 1 1 Specialty Diagnoses / Procedures Referred By Contac t Referred To Contact Diagnoses Pelvic pain in female Procedures CONSULT TO CO CHAIRMAN PELVIC PAIN OFFICE/OUTPATIENT [facility] MDM 60 MINUTES Mary Kumar APRN.UI ARCHITECT [address] [place] [address] Referral ID Status Reason Start Date Expiration Date Visits Requested Visits Authorized [id number] Authorized PCP Requested Referral Auto-Generate d Referral 11/14/2023 11/13/2024 1 1 Specialty Diagnoses / Procedures Referred By Contac t Referred To Contact Diagnoses Class 3 severe obesity in adult, unspecified BMI, unspecified obesity type, unspecified whether serious comorbidity present (HCC) Procedures CONSULT TO [facility] OFFICE/OUTPATIENT [facility] 60 MINUTES Mary Kumar APRN.CNP [address] [place] [address] Referral ID Status Reason Start Date Expiration Date Visits Requested Visits Authorized [id number] Authorized PCP Requested Referral Auto-Generate d Referral 01/02/2024 01/01/2025 1 1 Specialty Diagnoses / Procedures Referred By Contac t Referred To Contact Cardiology Diagnoses SVT (supraventricular tachycardia) (HCC) Atrial tachycardia (HCC) Procedures CONSULT TO CARDIOLOGY OFFICE/OUTPATIENT [facility] 60 MINUTES Jes Fuentes MD [address] [place] [address] Referral ID Status Reason Start Date Expiration Date Visits Requested Visits Authorized [id number] Authorized PCP Requested Referral 01/25/2024 01/24/2025 1 1 Specialty Diagnoses / Procedures Referred By Contac t Referred To Contact Diagnoses Hypertension, essential Gastroesophageal reflux disease, unspecified whether esophagitis present Prediabetes Class 3 severe obesity with serious comorbidity and body mass index (BMI) of 40.0 to 44.9 in adult, unspecified obesity type (HCC) Procedures CONSULT [facility] OFFICE/OUTPATIENT [facility] 60 MINUTES Chio Ash APRN.UI ARCHITECT [address] [place] [address] Referral ID Status Reason Start Date Expiration Date Visits Requested Visits Authorized [id number] Authorized PCP Requested Referral 02/23/2025 1 1 Specialty Diagnoses / Procedures Referred By Contac t Referred To Contact [facility] Diagnoses Menorrhagia with regular cycle General counseling and advice for contraceptive management Procedures INSERT INTRAUTERINE DEVICE LEVONORGESTREL IU 52MG 5 YR INSERT INTRAUTERINE DEVICE Chio Ash APRN.CNP [address] [place] [address] [facility] [address] [place] [address] Referral ID Status Reason Start Date Expiration Date Visits Requested Visits Authorized [id number] Authorized Auto-Generat ed Referral 08 2302/23/2025 1 1 Specialty Diagnoses / Procedures Referred By Contac t Referred To Contact Ophthalmology Diagnoses Visual changes Procedures CONSULT TO OPHTHALMOLOGY OFFICE/OUTPATIENT [facility] 60 MINUTES Zoraida Rodarte APRN.UI ARCHITECT [address] [place] [address] Referral ID Status Reason Start Date Expiration Date Visits Requested Visits Authorized [id number] Authorized PCP Requested Referral 4 03/06/2025 1 1 Specialty Diagnoses / Procedures Referred By Contac t Referred To Contact MR IMAGING Diagnoses Worsening headaches Visual changes Confusion Procedures MRI BRAIN WO/W IVCON MRI BRAIN BRAIN STEM W/O W/CONTRAST MATERIAL Zoraida Rodarte APRN.UI ARCHITECT [address] [place] [address] [facility] [place] [address] Referral ID Status Reason Start Date Expiration Date Visits Requested Visits Authorized [id number] New Request Auto-Generat ed Referral 4 04/05/2025 1 1 Specialty Diagnoses / Procedures Referred By Contac t Referred To Contact Ent - Otolaryngology Diagnoses Sinus disease Procedures CONSULT TO ENT OFFICE/OUTPATIENT [facility] 60 MINUTES Zoraida Rodarte APRN.UI ARCHITECT [id number] Referral ID Status Reason Start Date Expiration Date Visits Requested Visits Authorized [id number] Authorized PCP Requested Referral 4 04/06/2025 1 1 Referral ID Status Reason Start Date Expiration Date V isits Requested Visits Authorized [id number] Closed Auto-Generate d Referral 03/06/2024 04/05/2025 1 1 Specialty Diagnoses / Procedures Referred By Contac t Referred To Contact Gastroenterology Diagnoses Diarrhea, unspecified type Elevated fecal calprotectin 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 DATE CREATED AUTHOR AUTHOR'S ORGANIZ ATION 11/20/2022 [facility] DATE CREATED AUTHOR AUTHOR'S ORGANIZ ATION 05/14/2024 [facility] DATE CREATED AUTHOR AUTHOR'S ORGANIZ ATION 10/19/2024 [facility] DATE CREATED AUTHOR AUTHOR'S ORGANIZ ATION 11/07/2024 [facility] Source Comments (unrecognize d section and content) In the event this informatio n is protected by the Federal Confidentiality of Alcohol and Drug Abuse Patient Records regulations: The Federal rules restrict any use of the information to criminally investigate or prosecute any alcohol or drug abuse patient.[facility] the event this information is protected by the Federal Confidentiality of Alcohol and Drug Abuse Patient Records regulations: The Federal rules restrict any use of the information to criminally investigate or prosecute any alcohol or drug abuse patient.[facility] HospitalIn the event this information is protected by the Federal Confidentiality of Alcohol and Drug Abuse Patient Records regulations: The Federal rules restrict any use of the information to criminally investigate or prosecute any alcohol or drug abuse patient.[facility] HospitalIn the event this information is protected by the Federal Confidentiality of Alcohol and Drug Abuse Patient Records regulations: The Federal rules restrict any use of the information to criminally investigate or prosecute any alcohol or drug abuse patient.[facility] HospitalIn the event this information is protected by the Federal Confidentiality of Alcohol and Drug Abuse Patient Records regulations: The Federal rules restrict any use of the information to criminally investigate or prosecute any alcohol or drug abuse patient.[facility] HospitalIn the event this information is protected by the Federal Confidentiality of Alcohol and Drug Abuse Patient Records regulations: The Federal rules restrict any use of the information to criminally investigate or prosecute any alcohol or drug abuse patient.[facility] HospitalIn the event this information is protected by the Federal Confidentiality of Alcohol and Drug Abuse Patient Records regulations: The Federal rules restrict any use of the information to criminally investigate or prosecute any alcohol or drug abuse patient.[facility] HospitalIn the event this information is protected by the Federal Confidentiality of Alcohol and Drug Abuse Patient Records regulations: The Federal rules restrict any use of the information to criminally investigate or prosecute any alcohol or drug abuse patient.[facility] HospitalIn the event this information is protected by the Federal Confidentiality of Alcohol and Drug Abuse Patient Records regulations: The Federal rules restrict any use of the information to criminally investigate or prosecute any alcohol or drug abuse patient.[facility] HospitalIn the event this information is protected by the Federal Confidentiality of Alcohol and Drug Abuse Patient Records regulations: The Federal rules restrict any use of the information to criminally investigate or prosecute any alcohol or drug abuse patient.[facility] HospitalIn the event this information is protected by the Federal Confidentiality of Alcohol and Drug Abuse Patient Records regulations: The Federal rules restrict any use of the information to criminally investigate or prosecute any alcohol or drug abuse patient.[facility] HospitalIn the event this information is protected by the Federal Confidentiality of Alcohol and Drug Abuse Patient Records regulations: The Federal rules restrict any use of the information to criminally investigate or prosecute any alcohol or drug abuse patient.[facility] HospitalIn the event this information is protected by the Federal Confidentiality of Alcohol and Drug Abuse Patient Records regulations: The Federal rules restrict any use of the information to criminally investigate or prosecute any alcohol or drug abuse patient.[facility] HospitalIn the event this information is protected by the Federal Confidentiality of Alcohol and Drug Abuse Patient Records regulations: The Federal rules restrict any use of the information to criminally investigate or prosecute any alcohol or drug abuse patient.[facility] HospitalIn the event this information is protected by the Federal Confidentiality of Alcohol and Drug Abuse Patient Records regulations: The Federal rules restrict any use of the information to criminally investigate or prosecute any alcohol or drug abuse patient.[facility] HospitalIn the event this information is protected by the Federal Confidentiality of Alcohol and Drug Abuse Patient Records regulations: The Federal rules restrict any use of the information to criminally investigate or prosecute any alcohol or drug abuse patient.[facility] HospitalIn the event this information is protected by the Federal Confidentiality of Alcohol and Drug Abuse Patient Records regulations: The Federal rules restrict any use of the information to criminally investigate or prosecute any alcohol or drug abuse patient.[facility] HospitalIn the event this information is protected by the Federal Confidentiality of Alcohol and Drug Abuse Patient Records regulations: The Federal rules restrict any use of the information to criminally investigate or prosecute any alcohol or drug abuse patient.[facility] HospitalIn the event this information is protected by the Federal Confidentiality of Alcohol and Drug Abuse Patient Records regulations: The Federal rules restrict any use of the information to criminally investigate or prosecute any alcohol or drug abuse patient.[facility] HospitalIn the event this information is protected by the Federal Confidentiality of Alcohol and Drug Abuse Patient Records regulations: The Federal rules restrict any use of the information to criminally investigate or prosecute any alcohol or drug abuse patient.[facility] HospitalIn the event this information is protected by the Federal Confidentiality of Alcohol and Drug Abuse Patient Records regulations: The Federal rules restrict any use of the information to criminally investigate or prosecute any alcohol or drug abuse patient.[facility] HospitalIn the event this information is protected by the Federal Confidentiality of Alcohol and Drug Abuse Patient Records regulations: The Federal rules restrict any use of the information to criminally investigate or prosecute any alcohol or drug abuse patient.[facility] HospitalIn the event this information is protected by the Federal Confidentiality of Alcohol and Drug Abuse Patient Records regulations: The Federal rules restrict any use of the information to criminally investigate or prosecute any alcohol or drug abuse patient.[facility] HospitalIn the event this information is protected by the Federal Confidentiality of Alcohol and Drug Abuse Patient Records regulations: The Federal rules restrict any use of the information to criminally investigate or prosecute any alcohol or drug abuse patient.[facility] HospitalIn the event this information is protected by the Federal Confidentiality of Alcohol and Drug Abuse Patient Records regulations: The Federal rules restrict any use of the information to criminally investigate or prosecute any alcohol or drug abuse patient.[facility] HospitalIn the event this information is protected by the Federal Confidentiality of Alcohol and Drug Abuse Patient Records regulations: The Federal rules restrict any use of the information to criminally investigate or prosecute any alcohol or drug abuse patient.[facility] HospitalIn the event this information is protected by the Federal Confidentiality of Alcohol and Drug Abuse Patient Records regulations: The Federal rules restrict any use of the information to criminally investigate or prosecute any alcohol or drug abuse patient.[facility] HospitalIn the event this information is protected by the Federal Confidentiality of Alcohol and Drug Abuse Patient Records regulations: The Federal rules restrict any use of the information to criminally investigate or prosecute any alcohol or drug abuse patient.[facility] HospitalIn the event this information is protected by the Federal Confidentiality of Alcohol and Drug Abuse Patient Records regulations: The Federal rules restrict any use of the information to criminally investigate or prosecute any alcohol or drug abuse patient.[facility] HospitalIn the event this information is protected by the Federal Confidentiality of Alcohol and Drug Abuse Patient Records regulations: The Federal rules restrict any use of the information to criminally investigate or prosecute any alcohol or drug abuse patient.[facility] HospitalIn the event this information is protected by the Federal Confidentiality of Alcohol and Drug Abuse Patient Records regulations: The Federal rules restrict any use of the information to criminally investigate or prosecute any alcohol or drug abuse patient.[facility] HospitalIn the event this information is protected by the Federal Confidentiality of Alcohol and Drug Abuse Patient Records regulations: The Federal rules restrict any use of the information to criminally investigate or prosecute any alcohol or drug abuse patient.[facility] HospitalIn the event this information is protected by the Federal Confidentiality of Alcohol and Drug Abuse Patient Records regulations: The Federal rules restrict any use of the information to criminally investigate or prosecute any alcohol or drug abuse patient.[facility] HospitalIn the event this information is protected by the Federal Confidentiality of Alcohol and Drug Abuse Patient Records regulations: The Federal rules restrict any use of the information to criminally investigate or prosecute any alcohol or drug abuse patient.[facility] HospitalIn the event this information is protected by the Federal Confidentiality of Alcohol and Drug Abuse Patient Records regulations: The Federal rules restrict any use of the information to criminally investigate or prosecute any alcohol or drug abuse patient.[facility] HospitalIn the event this information is protected by the Federal Confidentiality of Alcohol and Drug Abuse Patient Records regulations: The Federal rules restrict any use of the information to criminally investigate or prosecute any alcohol or drug abuse patient.[facility] HospitalIn the event this information is protected by the Federal Confidentiality of Alcohol and Drug Abuse Patient Records regulations: The Federal rules restrict any use of the information to criminally investigate or prosecute any alcohol or drug abuse patient.[facility] HospitalIn the event this information is protected by the Federal Confidentiality of Alcohol and Drug Abuse Patient Records regulations: The Federal rules restrict any use of the information to criminally investigate or prosecute any alcohol or drug abuse patient.[facility] HospitalIn the event this information is protected by the Federal Confidentiality of Alcohol and Drug Abuse Patient Records regulations: The Federal rules restrict any use of the information to criminally investigate or prosecute any alcohol or drug abuse patient.[facility] HospitalIn the event this information is protected by the Federal Confidentiality of Alcohol and Drug Abuse Patient Records regulations: The Federal rules restrict any use of the information to criminally investigate or prosecute any alcohol or drug abuse patient.[facility]In the event this information is protected by the Federal Confidentiality of Alcohol and Drug Abuse Patient Records regulations: The Federal rules restrict any use of the information to criminally investigate or prosecute any alcohol or drug abuse patient.[facility] HospitalIn the event this information is protected by the Federal Confidentiality of Alcohol and Drug Abuse Patient Records regulations: The Federal rules restrict any use of the information to criminally investigate or prosecute any alcohol or drug abuse patient.[facility] HospitalIn the event this information is protected by the Federal Confidentiality of Alcohol and Drug Abuse Patient Records regulations: The Federal rules restrict any use of the information to criminally investigate or prosecute any alcohol or drug abuse patient.[facility] HospitalIn the event this information is protected by the Federal Confidentiality of Alcohol and Drug Abuse Patient Records regulations: The Federal rules restrict any use of the information to criminally investigate or prosecute any alcohol or drug abuse patient.[facility] HospitalIn the event this information is protected by the Federal Confidentiality of Alcohol and Drug Abuse Patient Records regulations: The Federal rules restrict any use of the information to criminally investigate or prosecute any alcohol or drug abuse patient.[facility] HospitalIn the event this information is protected by the Federal Confidentiality of Alcohol and Drug Abuse Patient Records regulations: The Federal rules restrict any use of the information to criminally investigate or prosecute any alcohol or drug abuse patient.[facility] HospitalIn the event this information is protected by the Federal Confidentiality of Alcohol and Drug Abuse Patient Records regulations: The Federal rules restrict any use of the information to criminally investigate or prosecute any alcohol or drug abuse patient.[facility] HospitalIn the event this information is protected by the Federal Confidentiality of Alcohol and Drug Abuse Patient Records regulations: The Federal rules restrict any use of the information to criminally investigate or prosecute any alcohol or drug abuse patient.[facility] HospitalIn the event this information is protected by the Federal Confidentiality of Alcohol and Drug Abuse Patient Records regulations: The Federal rules restrict any use of the information to criminally investigate or prosecute any alcohol or drug abuse patient.[facility] HospitalIn the event this information is protected by the Federal Confidentiality of Alcohol and Drug Abuse Patient Records regulations: The Federal rules restrict any use of the information to criminally investigate or prosecute any alcohol or drug abuse patient.[facility] HospitalIn the event this information is protected by the Federal Confidentiality of Alcohol and Drug Abuse Patient Records regulations: The Federal rules restrict any use of the information to criminally investigate or prosecute any alcohol or drug abuse patient.[facility] HospitalIn the event this information is protected by the Federal Confidentiality of Alcohol and Drug Abuse Patient Records regulations: The Federal rules restrict any use of the information to criminally investigate or prosecute any alcohol or drug abuse patient.[facility] HospitalIn the event this information is protected by the Federal Confidentiality of Alcohol and Drug Abuse Patient Records regulations: The Federal rules restrict any use of the information to criminally investigate or prosecute any alcohol or drug abuse patient.[facility] HospitalIn the event this information is protected by the Federal Confidentiality of Alcohol and Drug Abuse Patient Records regulations: The Federal rules restrict any use of the information to criminally investigate or prosecute any alcohol or drug abuse patient.[facility] HospitalIn the event this information is protected by the Federal Confidentiality of Alcohol and Drug Abuse Patient Records regulations: The Federal rules restrict any use of the information to criminally investigate or prosecute any alcohol or drug abuse patient.[facility] HospitalIn the event this information is protected by the Federal Confidentiality of Alcohol and Drug Abuse Patient Records regulations: The Federal rules restrict any use of the information to criminally investigate or prosecute any alcohol or drug abuse patient.[facility] HospitalIn the event this information is protected by the Federal Confidentiality of Alcohol and Drug Abuse Patient Records regulations: The Federal rules restrict any use of the information to criminally investigate or prosecute any alcohol or drug abuse patient.[facility] HospitalIn the event this information is protected by the Federal Confidentiality of Alcohol and Drug Abuse Patient Records regulations: The Federal rules restrict any use of the information to criminally investigate or prosecute any alcohol or drug abuse patient.[facility] HospitalIn the event this information is protected by the Federal Confidentiality of Alcohol and Drug Abuse Patient Records regulations: The Federal rules restrict any use of the information to criminally investigate or prosecute any alcohol or drug abuse patient.[facility] HospitalIn the event this information is protected by the Federal Confidentiality of Alcohol and Drug Abuse Patient Records regulations: The Federal rules restrict any use of the information to criminally investigate or prosecute any alcohol or drug abuse patient.[facility] HospitalIn the event this information is protected by the Federal Confidentiality of Alcohol and Drug Abuse Patient Records regulations: The Federal rules restrict any use of the information to criminally investigate or prosecute any alcohol or drug abuse patient.[facility] HospitalIn the event this information is protected by the Federal Confidentiality of Alcohol and Drug Abuse Patient Records regulations: The Federal rules restrict any use of the information to criminally investigate or prosecute any alcohol or drug abuse patient.[facility] HospitalIn the event this information is protected by the Federal Confidentiality of Alcohol and Drug Abuse Patient Records regulations: The Federal rules restrict any use of the information to criminally investigate or prosecute any alcohol or drug abuse patient.[facility] HospitalIn the event this information is protected by the Federal Confidentiality of Alcohol and Drug Abuse Patient Records regulations: The Federal rules restrict any use of the information to criminally investigate or prosecute any alcohol or drug abuse patient.[facility] HospitalIn the event this information is protected by the Federal Confidentiality of Alcohol and Drug Abuse Patient Records regulations: The Federal rules restrict any use of the information to criminally investigate or prosecute any alcohol or drug abuse patient.[facility] HospitalIn the event this information is protected by the Federal Confidentiality of Alcohol and Drug Abuse Patient Records regulations: The Federal rules restrict any use of the information to criminally investigate or prosecute any alcohol or drug abuse patient.[facility] HospitalIn the event this information is protected by the Federal Confidentiality of Alcohol and Drug Abuse Patient Records regulations: The Federal rules restrict any use of the information to criminally investigate or prosecute any alcohol or drug abuse patient.[facility] HospitalIn the event this information is protected by the Federal Confidentiality of Alcohol and Drug Abuse Patient Records regulations: The Federal rules restrict any use of the information to criminally investigate or prosecute any alcohol or drug abuse patient.[facility] HospitalIn the event this information is protected by the Federal Confidentiality of Alcohol and Drug Abuse Patient Records regulations: The Federal rules restrict any use of the information to criminally investigate or prosecute any alcohol or drug abuse patient.[facility] HospitalIn the event this information is protected by the Federal Confidentiality of Alcohol and Drug Abuse Patient Records regulations: The Federal rules restrict any use of the information to criminally investigate or prosecute any alcohol or drug abuse patient.[facility] HospitalIn the event this information is protected by the Federal Confidentiality of Alcohol and Drug Abuse Patient Records regulations: The Federal rules restrict any use of the information to criminally investigate or prosecute any alcohol or drug abuse patient.[facility] HospitalIn the event this information is protected by the Federal Confidentiality of Alcohol and Drug Abuse Patient Records regulations: The Federal rules restrict any use of the information to criminally investigate or prosecute any alcohol or drug abuse patient.[facility] HospitalIn the event this information is protected by the Federal Confidentiality of Alcohol and Drug Abuse Patient Records regulations: The Federal rules restrict any use of the information to criminally investigate or prosecute any alcohol or drug abuse patient.[facility] HospitalIn the event this information is protected by the Federal Confidentiality of Alcohol and Drug Abuse Patient Records regulations: The Federal rules restrict any use of the information to criminally investigate or prosecute any alcohol or drug abuse patient.[facility] HospitalIn the event this information is protected by the Federal Confidentiality of Alcohol and Drug Abuse Patient Records regulations: The Federal rules restrict any use of the information to criminally investigate or prosecute any alcohol or drug abuse patient.[facility] HospitalIn the event this information is protected by the Federal Confidentiality of Alcohol and Drug Abuse Patient Records regulations: The Federal rules restrict any use of the information to criminally investigate or prosecute any alcohol or drug abuse patient.[facility] HospitalIn the event this information is protected by the Federal Confidentiality of Alcohol and Drug Abuse Patient Records regulations: The Federal rules restrict any use of the information to criminally investigate or prosecute any alcohol or drug abuse patient.[facility] HospitalIn the event this information is protected by the Federal Confidentiality of Alcohol and Drug Abuse Patient Records regulations: The Federal rules restrict any use of the information to criminally investigate or prosecute any alcohol or drug abuse patient.[facility] HospitalIn the event this information is protected by the Federal Confidentiality of Alcohol and Drug Abuse Patient Records regulations: The Federal rules restrict any use of the information to criminally investigate or prosecute any alcohol or drug abuse patient.[facility] HospitalIn the event this information is protected by the Federal Confidentiality of Alcohol and Drug Abuse Patient Records regulations: The Federal rules restrict any use of the information to criminally investigate or prosecute any alcohol or drug abuse patient.[facility] HospitalIn the event this information is protected by the Federal Confidentiality of Alcohol and Drug Abuse Patient Records regulations: The Federal rules restrict any use of the information to criminally investigate or prosecute any alcohol or drug abuse patient.[facility] HospitalIn the event this information is protected by the Federal Confidentiality of Alcohol and Drug Abuse Patient Records regulations: The Federal rules restrict any use of the information to criminally investigate or prosecute any alcohol or drug abuse patient.[facility] HospitalIn the event this information is protected by the Federal Confidentiality of Alcohol and Drug Abuse Patient Records regulations: The Federal rules restrict any use of the information to criminally investigate or prosecute any alcohol or drug abuse patient.[facility] HospitalIn the event this information is protected by the Federal Confidentiality of Alcohol and Drug Abuse Patient Records regulations: The Federal rules restrict any use of the information to criminally investigate or prosecute any alcohol or drug abuse patient.[facility] HospitalIn the event this information is protected by the Federal Confidentiality of Alcohol and Drug Abuse Patient Records regulations: The Federal rules restrict any use of the information to criminally investigate or prosecute any alcohol or drug abuse patient.[facility] HospitalIn the event this information is protected by the Federal Confidentiality of Alcohol and Drug Abuse Patient Records regulations: The Federal rules restrict any use of the information to criminally investigate or prosecute any alcohol or drug abuse patient.[facility] HospitalIn the event this information is protected by the Federal Confidentiality of Alcohol and Drug Abuse Patient Records regulations: The Federal rules restrict any use of the information to criminally investigate or prosecute any alcohol or drug abuse patient.[facility] HospitalIn the event this information is protected by the Federal Confidentiality of Alcohol and Drug Abuse Patient Records regulations: The Federal rules restrict any use of the information to criminally investigate or prosecute any alcohol or drug abuse patient.[facility] HospitalIn the event this information is protected by the Federal Confidentiality of Alcohol and Drug Abuse Patient Records regulations: The Federal rules restrict any use of the information to criminally investigate or prosecute any alcohol or drug abuse patient.[facility] HospitalIn the event this information is protected by the Federal Confidentiality of Alcohol and Drug Abuse Patient Records regulations: The Federal rules restrict any use of the information to criminally investigate or prosecute any alcohol or drug abuse patient.[facility] HospitalIn the event this information is protected by the Federal Confidentiality of Alcohol and Drug Abuse Patient Records regulations: The Federal rules restrict any use of the information to criminally investigate or prosecute any alcohol or drug abuse patient.[facility] HospitalIn the event this information is protected by the Federal Confidentiality of Alcohol and Drug Abuse Patient Records regulations: The Federal rules restrict any use of the information to criminally investigate or prosecute any alcohol or drug abuse patient.[facility] HospitalIn the event this information is protected by the Federal Confidentiality of Alcohol and Drug Abuse Patient Records regulations: The Federal rules restrict any use of the information to criminally investigate or prosecute any alcohol or drug abuse patient.[facility] HospitalIn the event this information is protected by the Federal Confidentiality of Alcohol and Drug Abuse Patient Records regulations: The Federal rules restrict any use of the information to criminally investigate or prosecute any alcohol or drug abuse patient.[facility] HospitalIn the event this information is protected by the Federal Confidentiality of Alcohol and Drug Abuse Patient Records regulations: The Federal rules restrict any use of the information to criminally investigate or prosecute any alcohol or drug abuse patient.[facility] HospitalIn the event this information is protected by the Federal Confidentiality of Alcohol and Drug Abuse Patient Records regulations: The Federal rules restrict any use of the information to criminally investigate or prosecute any alcohol or drug abuse patient.[facility] HospitalIn the event this information is protected by the Federal Confidentiality of Alcohol and Drug Abuse Patient Records regulations: The Federal rules restrict any use of the information to criminally investigate or prosecute any alcohol or drug abuse patient.[facility] HospitalIn the event this information is protected by the Federal Confidentiality of Alcohol and Drug Abuse Patient Records regulations: The Federal rules restrict any use of the information to criminally investigate or prosecute any alcohol or drug abuse patient.[facility] HospitalIn the event this information is protected by the Federal Confidentiality of Alcohol and Drug Abuse Patient Records regulations: The Federal rules restrict any use of the information to criminally investigate or prosecute any alcohol or drug abuse patient.[facility] HospitalIn the event this information is protected by the Federal Confidentiality of Alcohol and Drug Abuse Patient Records regulations: The Federal rules restrict any use of the information to criminally investigate or prosecute any alcohol or drug abuse patient.[facility] HospitalIn the event this information is protected by the Federal Confidentiality of Alcohol and Drug Abuse Patient Records regulations: The Federal rules restrict any use of the information to criminally investigate or prosecute any alcohol or drug abuse patient.[facility] HospitalIn the event this information is protected by the Federal Confidentiality of Alcohol and Drug Abuse Patient Records regulations: The Federal rules restrict any use of the information to criminally investigate or prosecute any alcohol or drug abuse patient.[facility] HospitalIn the event this information is protected by the Federal Confidentiality of Alcohol and Drug Abuse Patient Records regulations: The Federal rules restrict any use of the information to criminally investigate or prosecute any alcohol or drug abuse patient.[facility] HospitalIn the event this information is protected by the Federal Confidentiality of Alcohol and Drug Abuse Patient Records regulations: The Federal rules restrict any use of the information to criminally investigate or prosecute any alcohol or drug abuse patient.[facility] HospitalIn the event this information is protected by the Federal Confidentiality of Alcohol and Drug Abuse Patient Records regulations: The Federal rules restrict any use of the information to criminally investigate or prosecute any alcohol or drug abuse patient.[facility] HospitalIn the event this information is protected by the Federal Confidentiality of Alcohol and Drug Abuse Patient Records regulations: The Federal rules restrict any use of the information to criminally investigate or prosecute any alcohol or drug abuse patient.[facility] HospitalIn the event this information is protected by the Federal Confidentiality of Alcohol and Drug Abuse Patient Records regulations: The Federal rules restrict any use of the information to criminally investigate or prosecute any alcohol or drug abuse patient.[facility] HospitalIn the event this information is protected by the Federal Confidentiality of Alcohol and Drug Abuse Patient Records regulations: The Federal rules restrict any use of the information to criminally investigate or prosecute any alcohol or drug abuse patient.[facility] HospitalIn the event this information is protected by the Federal Confidentiality of Alcohol and Drug Abuse Patient Records regulations: The Federal rules restrict any use of the information to criminally investigate or prosecute any alcohol or drug abuse patient.[facility] HospitalIn the event this information is protected by the Federal Confidentiality of Alcohol and Drug Abuse Patient Records regulations: The Federal rules restrict any use of the information to criminally investigate or prosecute any alcohol or drug abuse patient.[facility] HospitalIn the event this information is protected by the Federal Confidentiality of Alcohol and Drug Abuse Patient Records regulations: The Federal rules restrict any use of the information to criminally investigate or prosecute any alcohol or drug abuse patient.[facility] HospitalIn the event this information is protected by the Federal Confidentiality of Alcohol and Drug Abuse Patient Records regulations: The Federal rules restrict any use of the information to criminally investigate or prosecute any alcohol or drug abuse patient.[facility] HospitalIn the event this information is protected by the Federal Confidentiality of Alcohol and Drug Abuse Patient Records regulations: The Federal rules restrict any use of the information to criminally investigate or prosecute any alcohol or drug abuse patient.[facility] HospitalIn the event this information is protected by the Federal Confidentiality of Alcohol and Drug Abuse Patient Records regulations: The Federal rules restrict any use of the information to criminally investigate or prosecute any alcohol or drug abuse patient.[facility] HospitalIn the event this information is protected by the Federal Confidentiality of Alcohol and Drug Abuse Patient Records regulations: The Federal rules restrict any use of the information to criminally investigate or prosecute any alcohol or drug abuse patient.[facility] HospitalIn the event this information is protected by the Federal Confidentiality of Alcohol and Drug Abuse Patient Records regulations: The Federal rules restrict any use of the information to criminally investigate or prosecute any alcohol or drug abuse patient.[facility] HospitalIn the event this information is protected by the Federal Confidentiality of Alcohol and Drug Abuse Patient Records regulations: The Federal rules restrict any use of the information to criminally investigate or prosecute any alcohol or drug abuse patient.[facility] HospitalIn the event this information is protected by the Federal Confidentiality of Alcohol and Drug Abuse Patient Records regulations: The Federal rules restrict any use of the information to criminally investigate or prosecute any alcohol or drug abuse patient.[facility] HospitalIn the event this information is protected by the Federal Confidentiality of Alcohol and Drug Abuse Patient Records regulations: The Federal rules restrict any use of the information to criminally investigate or prosecute any alcohol or drug abuse patient.[facility] HospitalIn the event this information is protected by the Federal Confidentiality of Alcohol and Drug Abuse Patient Records regulations: The Federal rules restrict any use of the information to criminally investigate or prosecute any alcohol or drug abuse patient.[facility] HospitalIn the event this information is protected by the Federal Confidentiality of Alcohol and Drug Abuse Patient Records regulations: The Federal rules restrict any use of the information to criminally investigate or prosecute any alcohol or drug abuse patient.[facility] HospitalIn the event this information is protected by the Federal Confidentiality of Alcohol and Drug Abuse Patient Records regulations: The Federal rules restrict any use of the information to criminally investigate or prosecute any alcohol or drug abuse patient.[facility] HospitalIn the event this information is protected by the Federal Confidentiality of Alcohol and Drug Abuse Patient Records regulations: The Federal rules restrict any use of the information to criminally investigate or prosecute any alcohol or drug abuse patient.[facility] HospitalIn the event this information is protected by the Federal Confidentiality of Alcohol and Drug Abuse Patient Records regulations: The Federal rules restrict any use of the information to criminally investigate or prosecute any alcohol or drug abuse patient.[facility] HospitalIn the event this information is protected by the Federal Confidentiality of Alcohol and Drug Abuse Patient Records regulations: The Federal rules restrict any use of the information to criminally investigate or prosecute any alcohol or drug abuse patient.[facility] HospitalIn the event this information is protected by the Federal Confidentiality of Alcohol and Drug Abuse Patient Records regulations: The Federal rules restrict any use of the information to criminally investigate or prosecute any alcohol or drug abuse patient.[facility] HospitalIn the event this information is protected by the Federal Confidentiality of Alcohol and Drug Abuse Patient Records regulations: The Federal rules restrict any use of the information to criminally investigate or prosecute any alcohol or drug abuse patient.[facility] HospitalIn the event this information is protected by the Federal Confidentiality of Alcohol and Drug Abuse Patient Records regulations: The Federal rules restrict any use of the information to criminally investigate or prosecute any alcohol or drug abuse patient.[facility] HospitalIn the event this information is protected by the Federal Confidentiality of Alcohol and Drug Abuse Patient Records regulations: The Federal rules restrict any use of the information to criminally investigate or prosecute any alcohol or drug abuse patient.[facility] HospitalIn the event this information is protected by the Federal Confidentiality of Alcohol and Drug Abuse Patient Records regulations: The Federal rules restrict any use of the information to criminally investigate or prosecute any alcohol or drug abuse patient.[facility] HospitalIn the event this information is protected by the Federal Confidentiality of Alcohol and Drug Abuse Patient Records regulations: The Federal rules restrict any use of the information to criminally investigate or prosecute any alcohol or drug abuse patient.[facility] HospitalIn the event this information is protected by the Federal Confidentiality of Alcohol and Drug Abuse Patient Records regulations: The Federal rules restrict any use of the information to criminally investigate or prosecute any alcohol or drug abuse patient.[facility] HospitalIn the event this information is protected by the Federal Confidentiality of Alcohol and Drug Abuse Patient Records regulations: The Federal rules restrict any use of the information to criminally investigate or prosecute any alcohol or drug abuse patient.[facility] HospitalIn the event this information is protected by the Federal Confidentiality of Alcohol and Drug Abuse Patient Records regulations: The Federal rules restrict any use of the information to criminally investigate or prosecute any alcohol or drug abuse patient.[facility] HospitalIn the event this information is protected by the Federal Confidentiality of Alcohol and Drug Abuse Patient Records regulations: The Federal rules restrict any use of the information to criminally investigate or prosecute any alcohol or drug abuse patient.[facility] HospitalIn the event this information is protected by the Federal Confidentiality of Alcohol and Drug Abuse Patient Records regulations: The Federal rules restrict any use of the information to criminally investigate or prosecute any alcohol or drug abuse patient.[facility] HospitalIn the event this information is protected by the Federal Confidentiality of Alcohol and Drug Abuse Patient Records regulations: The Federal rules restrict any use of the information to criminally investigate or prosecute any alcohol or drug abuse patient.[facility] HospitalIn the event this information is protected by the Federal Confidentiality of Alcohol and Drug Abuse Patient Records regulations: The Federal rules restrict any use of the information to criminally investigate or prosecute any alcohol or drug abuse patient.[facility] HospitalIn the event this information is protected by the Federal Confidentiality of Alcohol and Drug Abuse Patient Records regulations: The Federal rules restrict any use of the information to criminally investigate or prosecute any alcohol or drug abuse patient.[facility] HospitalIn the event this information is protected by the Federal Confidentiality of Alcohol and Drug Abuse Patient Records regulations: The Federal rules restrict any use of the information to criminally investigate or prosecute any alcohol or drug abuse patient.[facility] HospitalIn the event this information is protected by the Federal Confidentiality of Alcohol and Drug Abuse Patient Records regulations: The Federal rules restrict any use of the information to criminally investigate or prosecute any alcohol or drug abuse patient.[facility] HospitalIn the event this information is protected by the Federal Confidentiality of Alcohol and Drug Abuse Patient Records regulations: The Federal rules restrict any use of the information to criminally investigate or prosecute any alcohol or drug abuse patient.[facility] HospitalIn the event this information is protected by the Federal Confidentiality of Alcohol and Drug Abuse Patient Records regulations: The Federal rules restrict any use of the information to criminally investigate or prosecute any alcohol or drug abuse patient.[facility] HospitalIn the event this information is protected by the Federal Confidentiality of Alcohol and Drug Abuse Patient Records regulations: The Federal rules restrict any use of the information to criminally investigate or prosecute any alcohol or drug abuse patient.[facility] HospitalIn the event this information is protected by the Federal Confidentiality of Alcohol and Drug Abuse Patient Records regulations: The Federal rules restrict any use of the information to criminally investigate or prosecute any alcohol or drug abuse patient.[facility] HospitalIn the event this information is protected by the Federal Confidentiality of Alcohol and Drug Abuse Patient Records regulations: The Federal rules restrict any use of the information to criminally investigate or prosecute any alcohol or drug abuse patient.[facility] HospitalIn the event this information is protected by the Federal Confidentiality of Alcohol and Drug Abuse Patient Records regulations: The Federal rules restrict any use of the information to criminally investigate or prosecute any alcohol or drug abuse patient.[facility] HospitalIn the event this information is protected by the Federal Confidentiality of Alcohol and Drug Abuse Patient Records regulations: The Federal rules restrict any use of the information to criminally investigate or prosecute any alcohol or drug abuse patient.[facility] HospitalIn the event this information is protected by the Federal Confidentiality of Alcohol and Drug Abuse Patient Records regulations: The Federal rules restrict any use of the information to criminally investigate or prosecute any alcohol or drug abuse patient.[facility] HospitalIn the event this information is protected by the Federal Confidentiality of Alcohol and Drug Abuse Patient Records regulations: The Federal rules restrict any use of the information to criminally investigate or prosecute any alcohol or drug abuse patient.[facility] HospitalIn the event this information is protected by the Federal Confidentiality of Alcohol and Drug Abuse Patient Records regulations: The Federal rules restrict any use of the information to criminally investigate or prosecute any alcohol or drug abuse patient.[facility] HospitalIn the event this information is protected by the Federal Confidentiality of Alcohol and Drug Abuse Patient Records regulations: The Federal rules restrict any use of the information to criminally investigate or prosecute any alcohol or drug abuse patient.[facility] HospitalIn the event this information is protected by the Federal Confidentiality of Alcohol and Drug Abuse Patient Records regulations: The Federal rules restrict any use of the information to criminally investigate or prosecute any alcohol or drug abuse patient.[facility] HospitalIn the event this information is protected by the Federal Confidentiality of Alcohol and Drug Abuse Patient Records regulations: The Federal rules restrict any use of the information to criminally investigate or prosecute any alcohol or drug abuse patient.[facility] HospitalIn the event this information is protected by the Federal Confidentiality of Alcohol and Drug Abuse Patient Records regulations: The Federal rules restrict any use of the information to criminally investigate or prosecute any alcohol or drug abuse patient.[facility] HospitalIn the event this information is protected by the Federal Confidentiality of Alcohol and Drug Abuse Patient Records regulations: The Federal rules restrict any use of the information to criminally investigate or prosecute any alcohol or drug abuse patient.[facility] HospitalIn the event this information is protected by the Federal Confidentiality of Alcohol and Drug Abuse Patient Records regulations: The Federal rules restrict any use of the information to criminally investigate or prosecute any alcohol or drug abuse patient.[facility] HospitalIn the event this information is protected by the Federal Confidentiality of Alcohol and Drug Abuse Patient Records regulations: The Federal rules restrict any use of the information to criminally investigate or prosecute any alcohol or drug abuse patient.[facility] HospitalIn the event this information is protected by the Federal Confidentiality of Alcohol and Drug Abuse Patient Records regulations: The Federal rules restrict any use of the information to criminally investigate or prosecute any alcohol or drug abuse patient.[facility] HospitalIn the event this information is protected by the Federal Confidentiality of Alcohol and Drug Abuse Patient Records regulations: The Federal rules restrict any use of the information to criminally investigate or prosecute any alcohol or drug abuse patient.[facility] HospitalIn the event this information is protected by the Federal Confidentiality of Alcohol and Drug Abuse Patient Records regulations: The Federal rules restrict any use of the information to criminally investigate or prosecute any alcohol or drug abuse patient.[facility] HospitalIn the event this information is protected by the Federal Confidentiality of Alcohol and Drug Abuse Patient Records regulations: The Federal rules restrict any use of the information to criminally investigate or prosecute any alcohol or drug abuse patient.[facility] HospitalIn the event this information is protected by the Federal Confidentiality of Alcohol and Drug Abuse Patient Records regulations: The Federal rules restrict any use of the information to criminally investigate or prosecute any alcohol or drug abuse patient.[facility] HospitalIn the event this information is protected by the Federal Confidentiality of Alcohol and Drug Abuse Patient Records regulations: The Federal rules restrict any use of the information to criminally investigate or prosecute any alcohol or drug abuse patient.[facility] HospitalIn the event this information is protected by the Federal Confidentiality of Alcohol and Drug Abuse Patient Records regulations: The Federal rules restrict any use of the information to criminally investigate or prosecute any alcohol or drug abuse patient.[facility] HospitalIn the event this information is protected by the Federal Confidentiality of Alcohol and Drug Abuse Patient Records regulations: The Federal rules restrict any use of the information to criminally investigate or prosecute any alcohol or drug abuse patient.[facility] HospitalIn the event this information is protected by the Federal Confidentiality of Alcohol and Drug Abuse Patient Records regulations: The Federal rules restrict any use of the information to criminally investigate or prosecute any alcohol or drug abuse patient.[facility] HospitalIn the event this information is protected by the Federal Confidentiality of Alcohol and Drug Abuse Patient Records regulations: The Federal rules restrict any use of the information to criminally investigate or prosecute any alcohol or drug abuse patient.[facility] HospitalIn the event this information is protected by the Federal Confidentiality of Alcohol and Drug Abuse Patient Records regulations: The Federal rules restrict any use of the information to criminally investigate or prosecute any alcohol or drug abuse patient.[facility] HospitalIn the event this information is protected by the Federal Confidentiality of Alcohol and Drug Abuse Patient Records regulations: The Federal rules restrict any use of the information to criminally investigate or prosecute any alcohol or drug abuse patient.[facility] HospitalIn the event this information is protected by the Federal Confidentiality of Alcohol and Drug Abuse Patient Records regulations: The Federal rules restrict any use of the information to criminally investigate or prosecute any alcohol or drug abuse patient.[facility] HospitalIn the event this information is protected by the Federal Confidentiality of Alcohol and Drug Abuse Patient Records regulations: The Federal rules restrict any use of the information to criminally investigate or prosecute any alcohol or drug abuse patient.[facility] HospitalIn the event this information is protected by the Federal Confidentiality of Alcohol and Drug Abuse Patient Records regulations: The Federal rules restrict any use of the information to criminally investigate or prosecute any alcohol or drug abuse patient.[facility] HospitalIn the event this information is protected by the Federal Confidentiality of Alcohol and Drug Abuse Patient Records regulations: The Federal rules restrict any use of the information to criminally investigate or prosecute any alcohol or drug abuse patient.[facility] HospitalIn the event this information is protected by the Federal Confidentiality of Alcohol and Drug Abuse Patient Records regulations: The Federal rules restrict any use of the information to criminally investigate or prosecute any alcohol or drug abuse patient.[facility] HospitalIn the event this information is protected by the Federal Confidentiality of Alcohol and Drug Abuse Patient Records regulations: The Federal rules restrict any use of the information to criminally investigate or prosecute any alcohol or drug abuse patient.[facility] HospitalIn the event this information is protected by the Federal Confidentiality of Alcohol and Drug Abuse Patient Records regulations: The Federal rules restrict any use of the information to criminally investigate or prosecute any alcohol or drug abuse patient.[facility] HospitalIn the event this information is protected by the Federal Confidentiality of Alcohol and Drug Abuse Patient Records regulations: The Federal rules restrict any use of the information to criminally investigate or prosecute any alcohol or drug abuse patient.[facility] HospitalIn the event this information is protected by the Federal Confidentiality of Alcohol and Drug Abuse Patient Records regulations: The Federal rules restrict any use of the information to criminally investigate or prosecute any alcohol or drug abuse patient.[facility] HospitalIn the event this information is protected by the Federal Confidentiality of Alcohol and Drug Abuse Patient Records regulations: The Federal rules restrict any use of the information to criminally investigate or prosecute any alcohol or drug abuse patient.[facility] HospitalIn the event this information is protected by the Federal Confidentiality of Alcohol and Drug Abuse Patient Records regulations: The Federal rules restrict any use of the information to criminally investigate or prosecute any alcohol or drug abuse patient.[facility] HospitalIn the event this information is protected by the Federal Confidentiality of Alcohol and Drug Abuse Patient Records regulations: The Federal rules restrict any use of the information to criminally investigate or prosecute any alcohol or drug abuse patient.[facility] HospitalIn the event this information is protected by the Federal Confidentiality of Alcohol and Drug Abuse Patient Records regulations: The Federal rules restrict any use of the information to criminally investigate or prosecute any alcohol or drug abuse patient.[facility] HospitalIn the event this information is protected by the Federal Confidentiality of Alcohol and Drug Abuse Patient Records regulations: The Federal rules restrict any use of the information to criminally investigate or prosecute any alcohol or drug abuse patient.[facility] HospitalIn the event this information is protected by the [facility] Confidentiality of Alcohol and Drug Abuse Patient Records regulations: The Federal rules restrict any use of the information to criminally investigate or prosecute any alcohol or drug abuse patient.[facility] HospitalIn the event this information is protected by the Federal Confidentiality of Alcohol and Drug Abuse Patient Records regulations: The Federal rules restrict any use of the information to criminally investigate or prosecute any alcohol or drug abuse patient.[facility] Care Teams (unrecognized sec tion and content) Software Release Manager Relationship Specialty Start Date End Date Bruno Alejo III, MD [place] [address]DRESS PCP - General 10/22/02 Software Release Manager Relationship Specialty Start Date End Date Jes Fuentes MD [address] [place], [place] [id number] PCP - General Family Practice 08/17/21 Software Release Manager Relationship Specialty Start Date End Date Jes Fuentes MD [address] [place], [place] [id number] PCP - General Family Practice 08/17/21 Software Release Manager Relationship Specialty Start Date End Date Jes Fuentes MD [address] [facility] [place] [address] PCP - General Family Practice 08/17/21 Software Release Manager Relationship Specialty Start Date End Date Jes Fuentes MD [address] [place] [address] PCP - General Family Practice 08/17/21 Software Release Manager Relationship Specialty Start Date End Date Jes Fuentes MD [address] [place] [address] PCP - General Family Practice 08/17/21 Software Release Manager Relationship Specialty Start Date End Date Jes Fuentes MD [address] [place] [address], [place] [address] PCP - General Family Practice 08/17/21 Software Release Manager Relationship Specialty Start Date End Date Jes Fuentes MD [address] [place] [address], [place] [address] PCP - General Family Practice 08/17/21 Software Release Manager Relationship Specialty [place] [address] [place] [address], [place] [address] PCP - General Family Practice 08/17/21 Software Release Manager Relationship Specialty Start Date End Date Jes Fuentes MD [address] [place] [address], [place] [address] PCP - General Family Practice 08/17/21 Software Release Manager Relationship Specialty Start Date End Date Jes Fuentes MD [address] [place] [address] PCP - General Family Medicine 08/17/21 Software Release Manager Relationship Specialty Start Date End Date Jes Fuentes MD [address] [place] [address], [place] [address] PCP - General Family Medicine 08/17/21 Software Release Manager Relationship Specialty Start Date End Date Jes Fuentes MD [address] [place] [address] PCP - General Family Medicine 08/17/21 Software Release Manager Relationship Specialty Start Date End Date Jes Fuentes MD [address] [place] [address] PCP - General Family Medicine 08/17/21 Software Release Manager Relationship Specialty Start Date End Date Jes Fuentes MD [address] [place] [address] PCP - General Family Medicine 08/17/21 Software Release Manager Relationship Specialty Start Date End Date Jes Fuentes MD [address] [place] [address] PCP - General Family Medicine 08/17/21 Software Release Manager Relationship Specialty Start Date End Date Jes Fuentes MD [address] [place] [address] PCP - General Family Medicine 08/17/21 Software Release Manager Relationship Specialty Start Date End Date Jes Fuentes MD [address] [place] [address] PCP - General Family Medicine 08/17/21 Software Release Manager Relationship Specialty Start Date End Date Jes Fuentes MD [address] [place] [address] PCP - General Family Medicine 08/17/21 Software Release Manager Relationship Specialty Start Date End Date Jes Fuentes MD [address] [place] [address] PCP - General Family Medicine 08/17/21 Software Release Manager Relationship Specialty Start Date End Date Jes Fuentes MD [address] [place] [address] PCP - General Family Medicine 08/17/21 Software Release Manager Relationship Specialty Start Date End Date Jes Fuentes MD [address] [place] [address] PCP - General Family Medicine 08/17/21 Software Release Manager Relationship Specialty Start Date End Date Jes Fuentes MD [address] [place] [address] PCP - General Family Medicine 08/17/21 Software Release Manager Relationship Specialty Start Date End Date Jes Fuentes MD [address] [place] [address] PCP - General Family Medicine 08/17/21 Software Release Manager Relationship Specialty Start Date End Date Jes Fuentes MD [address] [place] [address] PCP - General Family Medicine 08/17/21 Software Release Manager Relationship Specialty Start Date End Date Jes Fuentes MD [address] [place] [address] PCP - General Family Medicine 08/17/21 Software Release Manager Relationship Specialty Start Date End Date Jes Fuentes MD [address] [place] [address] PCP - General Family Medicine 08/17/21 Software Release Manager Relationship Specialty Start Date End Date Jes Fuentes MD [address] [place] [address] PCP - General Family Medicine 08/17/21 Software Release Manager Relationship Specialty Start Date End Date Jes Fuentes MD [address] [place] [address] PCP - General Family Medicine 08/17/21 Software Release Manager Relationship Specialty Start Date End Date Jes Fuentes MD [address] [place] [address] PCP - General Family Medicine 08/17/21 Software Release Manager Relationship Specialty Start Date End Date Jes Fuentes MD [address] [place] [place], [place] [address] PCP - General Family Medicine 08/17/21 Software Release Manager Relationship Specialty Start Date End Date Jes Fuenets MD [address] [place] [address] PCP - General Family Medicine 08/17/21 Saleem Ch MD [address] [place] [address] Hematology/Oncology 12/24/22 Software Release Manager Relationship Specialty Start Date End Date Jes Fuentes MD [address] [place] [address] PCP - General Family Medicine 08/17/21 Saleem Ch MD [address] [place] [address] Hematology/Oncology 12/24/22 Software Release Manager Relationship Specialty Start Date End Date Jes Fuentes MD [address] [place] [address] PCP - General Family Medicine 08/17/21 Saleem Ch MD [address] [place] [address] Hematology/Oncology 12/24/22 Software Release Manager Relationship Specialty Start Date End Date Jes Fuentes MD [address] [place] [address] PCP - General Family Medicine 08/17/21 Saleem Ch MD [address] [place] [address] Hematology/Oncology 12/24/22 Software Release Manager Relationship Specialty Start Date End Date Jes Fuentes MD [address] [place] [address] PCP - General Family Medicine 08/17/21 Saleem Ch MD [address] [place] [address] Hematology/Oncology 12/24/22 Software Release Manager Relationship Specialty Start Date End Date Jes Fuentes MD [address] [place] [address] PCP - General Family Medicine 08/17/21 Saleem Ch MD [address] [place] [address] Hematology/Oncology 12/24/22 Software Release Manager Relationship Specialty Start Date End Date Jes Fuentes MD [address] [place] [address] PCP - General Family Medicine 08/17/21 Saleem Ch MD [address] [place] [address] Hematology/Oncology 12/24/22 Software Release Manager Relationship Specialty Start Date End Date Jes Fuentes MD [address] [place] [address] PCP - General Family Medicine 08/17/21 Saleem Ch MD [address] [place] [address] Hematology/Oncology 12/24/22 Software Release Manager Relationship Specialty Start Date End Date Jes Fuentes MD [address] [place] [address] PCP - General Family Medicine 08/17/21 Saleem Ch MD [address] [place] [address] Hematology/Oncology 12/24/22 Software Release Manager Relationship Specialty Start Date End Date Jes Fuentes MD [address] [place] [address] PCP - General Family Medicine 08/17/21 Saleem Ch MD [address] [place] [address] Hematology/Oncology 12/24/22 Software Release Manager Relationship Specialty Start Date End Date Jes Fuentes MD [address] [place] [address] PCP - General Family Medicine 08/17/21 Saleem Ch MD [address] [place] [address] Hematology/Oncology 12/24/22 Software Release Manager Relationship Specialty Start Date End Date Jes Fuentes MD [address] [place] [address] PCP - General Family Medicine 08/17/21 Saleem Ch MD [address] [facility] [place] [address] Hematology/Oncology 12/24/22 Software Release Manager Relationship Specialty Start Date End Date Jes Fuentes MD [address] [place] [address] PCP - General Family Medicine 08/17/21 Saleem Ch MD [address] [place] [address] Hematology/Oncology 12/24/22 Software Release Manager Relationship Specialty Start Date End Date Jes Fuentes MD [address] [facility] [place] [address] PCP - General Family Medicine 08/17/21 Saleem Ch MD [address] [place] [address] Hematology/Oncology 12/24/22 Software Release Manager Relationship Specialty Start Date End Date Jes Fuentes MD [address] [facility] [place] [address] PCP - General Family Medicine 08/17/21 Saleem Ch MD [address] [place] [address] Hematology/Oncology 12/24/22 Software Release Manager Relationship Specialty Start Date End Date Jes Fuentes MD [address] [place] [address] PCP - General Family Medicine 08/17/21 Saleem Ch MD [address] [place] [address] Hematology/Oncology 12/24/22 Software Release Manager Relationship Specialty Start Date End Date Jes Fuentes MD [address] [place] [address] PCP - General Family Medicine 08/17/21 Saleem Ch MD [address] [place] [place] [address] Hematology/Oncology 12/24/22 Software Release Manager Relationship Specialty Start Date End Date Jes Fuentes MD [address] [place] [address] PCP - General Family Medicine 08/17/21 Saleem Ch MD [address] [place] [address] Hematology/Oncology 12/24/22 Software Release Manager Relationship Specialty Start Date End Date Jes Fuentes MD [address] [place] [address] PCP - General Family Medicine 08/17/21 Saleem Ch MD [address] [place] [place] [address] Hematology/Oncology 12/24/22 Software Release Manager Relationship Specialty Start Date End Date Jes Fuentes MD [address] [place] [address] PCP - General Family Medicine 08/17/21 Saleem Ch MD [address] [place] [address] Hematology/Oncology 12/24/22 Software Release Manager Relationship Specialty Start Date End Date Jes Fuentes MD [address] [facility] [place] [address] PCP - General Family Medicine 08/17/21 Saleem Ch MD [address] [place] [address] Hematology/Oncology 12/24/22 Software Release Manager Relationship Specialty Start Date End Date Jes Fuentes MD [address] [facility] [place] [address] PCP - General Family Medicine 08/17/21 Saleem Ch MD [address] [place] [address] Hematology/Oncology 12/24/22 Software Release Manager Relationship Specialty Start Date End Date Jes Fuentes MD [address] [place] [address] PCP - General Family Medicine 08/17/21 Saleem Ch MD [address] [place] [address] Hematology/Oncology 12/24/22 Software Release Manager Relationship Specialty Start Date End Date Jes Fuentes MD [address] [place] [address] PCP - General Family Medicine 08/17/21 Saleem Ch MD [address] [place] [address] Hematology/Oncology 12/24/22 Software Release Manager Relationship Specialty Start Date End Date Jes Fuentes MD [address] [place] [address] PCP - General Family Medicine 08/17/21 Saleem Ch MD [address] [place] [address] Hematology/Oncology 12/24/22 Software Release Manager Relationship Specialty Start Date End Date Jes Fuentes MD [address] [place] [address] PCP - General Family Medicine 08/17/21 Saleem Ch MD [address] [place] [address] Hematology/Oncology 12/24/22 Software Release Manager Relationship Specialty Start Date End Date Jes Fuentes MD [address] [place] [address] PCP - General Family Medicine 08/17/21 Saleem Ch MD [address] [place] [address] Hematology/Oncology 12/24/22 Software Release Manager Relationship Specialty Start Date End Date Jes Fuentes MD [address] [place] [address] PCP - General Family Medicine 08/17/21 Saleem Ch MD [address] [place] [address] Hematology/Oncology 12/24/22 Software Release Manager Relationship Specialty Start Date End Date Jes Fuentes MD [address] [place] [address] PCP - General Family Medicine 08/17/21 Saleem Ch MD [address] [place] [address] Hematology/Oncology 12/24/22 Software Release Manager Relationship Specialty Start Date End Date Jes Fuentes MD [address] [place] [address] PCP - General Family Medicine 08/17/21 Saleem Ch MD [address] [place] [address] Hematology/Oncology 12/24/22 Software Release Manager Relationship Specialty Start Date End Date Jes Fuentes MD [address] [place] [address] PCP - General Family Medicine 08/17/21 Saleem Ch MD [address] [place] [address] Hematology/Oncology 12/24/22 Software Release Manager Relationship Specialty Start Date End Date Jes Fuentes MD [address] [place] [address] PCP - General Family Medicine 08/17/21 Saleem Ch MD [address] [place] [address] Hematology/Oncology 12/24/22 Software Release Manager Relationship Specialty Start Date End Date Jes Fuentes MD [address] [place] [address] PCP - General Family Medicine 08/17/21 Saleem Ch MD [address] [place] [address] Hematology/Oncology 12/24/22 Software Release Manager Relationship Specialty Start Date End Date Jes Fuentes MD [address] [place] [address] PCP - General Family Medicine 08/17/21 Saleem Ch MD [address] [place] [address] Hematology/Oncology 12/24/22 Software Release Manager Relationship Specialty Start Date End Date Jes Fuentes MD [address] [place] [address] PCP - General Family Medicine 08/17/21 Saleem Ch MD [address] [place] [address] Hematology/Oncology 12/24/22 Software Release Manager Relationship Specialty Start Date End Date Jes Fuentes MD [address] [place] [address] PCP - General Family Medicine 08/17/21 Saleem Ch MD [address] [place] [address] Hematology/Oncology 12/24/22 Software Release Manager Relationship Specialty Start Date End Date Jes Fuentes MD [address] [place] [address] PCP - General Family Medicine 08/17/21 Saleem Ch MD [address] [place] [address] Hematology/Oncology 12/24/22 Software Release Manager Relationship Specialty Start Date End Date Jes Fuentes MD [address] [place] [address] PCP - General Family Medicine 08/17/21 Saleem Ch MD [address] [place] [address] Hematology/Oncology 12/24/22 Software Release Manager Relationship Specialty Start Date End Date Jes Fuentes MD [address] [place] [address] PCP - General Family Medicine 08/17/21 Saleem Ch MD [address] [place] [address] Hematology/Oncology 12/24/22 Software Release Manager Relationship Specialty Start Date End Date Jes Fuentes MD [address] [place] [address] PCP - General Family Medicine 08/17/21 Saleem Ch MD [address] [place] [address] Hematology/Oncology 12/24/22 Software Release Manager Relationship Specialty Start Date End Date Jes Fuentes MD [address] [place] [address] PCP - General Family Medicine 08/17/21 Saleem Ch MD [address] [place] [address] Hematology/Oncology 12/24/22 Software Release Manager Relationship Specialty Start Date End Date Jes Fuentes MD [address] [place] [address] PCP - General Family Medicine 08/17/21 Saleem Ch MD [address] [place] [address] Hematology/Oncology 12/24/22 Software Release Manager Relationship Specialty Start Date End Date Jes Fuentes MD [address] [place] [address] PCP - General Family Medicine 08/17/21 Saleem Ch MD [address] [place] [address] Hematology/Oncology 12/24/22 Software Release Manager Relationship Specialty Start Date End Date Jes Fuentes MD [address] [place] [address] PCP - General Family Medicine 08/17/21 Saleem Ch MD [address] [place] [address] Hematology/Oncology 12/24/22 Software Release Manager Relationship Specialty Start Date End Date Jes Fuentes MD [address] [place] [address] PCP - General Family Medicine 08/17/21 Saleem Ch MD [address] [place] [address] Hematology/Oncology 12/24/22 Software Release Manager Relationship Specialty Start Date End Date Jes Fuentes MD [address] [place] [address] PCP - General Family Medicine 08/17/21 Saleem Ch MD [address] [place] [address] Hematology/Oncology 12/24/22 Software Release Manager Relationship Specialty Start Date End Date Jes Fuentes MD [address] [place] [address] PCP - General Family Medicine 08/17/21 Saleem Ch MD [address] [place] [address] Hematology/Oncology 12/24/22 Software Release Manager Relationship Specialty Start Date End Date Jes Fuentes MD [address] [place] [address] PCP - General Family Medicine 08/17/21 Saleem Ch MD [address] [place] [address] Hematology/Oncology 12/24/22 Software Release Manager Relationship Specialty Start Date End Date Jes Fuentes MD [address] [place] [address] PCP - General Family Medicine 08/17/21 Software Release Manager Relationship Specialty Start Date End Date Jes Fuentes MD [address] [place] [address] PCP - General Family Medicine 08/17/21 Software Release Manager Relationship Specialty Start Date End Date Jes Fuentes MD [address] [place], [place] [address] PCP - General Family Medicine 08/17/21 Software Release Manager Relationship Specialty Start Date End Date Jes Fuentes MD [address] [place] [address] PCP - General Family Medicine 08/17/21 Saleem Ch MD [address] [place] [address] Hematology/Oncology 12/24/22 Software Release Manager Relationship Specialty Start Date End Date Jes Fuentes MD [address] [place] [address] PCP - General Family Medicine 08/17/21 Saleem Ch MD [address] [place] [address] Hematology/Oncology 12/24/22 Software Release Manager Relationship Specialty Start Date End Date Jes Fuentes MD [address] [place] [address] PCP - General Family Medicine 08/17/21 Saleem Ch MD [address] [place] [place] [address] Hematology/Oncology 12/24/22 Software Release Manager Relationship Specialty Start Date End Date Jes Fuentes MD [address] [place] [address] PCP - General Family Medicine 08/17/21 Saleem Ch MD [address] [place] [address] Hematology/Oncology 12/24/22 Software Release Manager Relationship Specialty Start Date End Date Jes Fuentes MD [address] [place] [address] PCP - General Family Medicine 08/17/21 Saleem Ch MD [address] [place] [address] Hematology/Oncology 12/24/22 Software Release Manager Relationship Specialty Start Date End Date Jes Fuentes MD [address] [place] [address] PCP - General Family Medicine 08/17/21 Saleem Ch MD [address] [place] [address] Hematology/Oncology 12/24/22 Software Release Manager Relationship Specialty Start Date End Date Jes Fuentes MD [address] [place] [address] PCP - General Family Medicine 08/17/21 Saleem Ch MD [address] [place] [address] Hematology/Oncology 12/24/22 Software Release Manager Relationship Specialty Start Date End Date Jes Fuentes MD [address] [place] [address] PCP - General Family Medicine 08/17/21 Saleem Ch MD [address] [place] [address] Hematology/Oncology 12/24/22 Software Release Manager Relationship Specialty Start Date End Date Jes Fuentes MD [address] [place] [address] PCP - General Family Medicine 08/17/21 Saleem Ch MD [address] [place] [address] Hematology/Oncology 12/24/22 Software Release Manager Relationship Specialty Start Date End Date Jes Fuentes MD [address] [place] [address] PCP - General Family Medicine 08/17/21 Saleem Ch MD [address] [place] [address] Hematology/Oncology 12/24/22 Software Release Manager Relationship Specialty Start Date End Date Jes Fuentes MD [address] [place] [address] PCP - General Family Medicine 08/17/21 Saleem Ch MD [address] [place] [address] Hematology/Oncology 12/24/22 Software Release Manager Relationship Specialty Start Date End Date Jes Fuentes MD [address] [place] [address] PCP - General Family Medicine 08/17/21 Saleem Ch MD [address] [facility] [address] Hematology/Oncology 12/24/22 Ofelia Delaney, 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.UI ARCHITECT [address] [place] [address] Judicial Administrative Assistant Family Medicine 04/23/24 Tomasa Laguerre 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.UI ARCHITECT [address] [facility] [place] [address] Judicial Administrative Assistant Family Medicine 04/23/24 Software Release Manager Relationship Specialty Start Date End Date eJs Fuentes MD [address] [facility] [place] [address] PCP - General Family Medicine 08/17/21 Saleem Ch MD [address] [place] [address] Hematology/Oncology 12/24/22 Ofelia Delaney, 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.UI ARCHITECT [address] [place] [place] [address] Judicial Administrative Assistant Family Medicine 04/23/24 Software Release Manager Relationship Specialty Start Date End Date Jes Fuentes MD [address] [facility] [place] [address] PCP - General Family Medicine 08/17/21 Saleem Ch MD [address] [place] [address] Hematology/Oncology 12/24/22 Ofelia Delaney, 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.UI ARCHITECT [address] [place] [address] Judicial Administrative Assistant Family Medicine 04/23/24 Software Release Manager Relationship Specialty Start Date End Date Jes Fuentes MD [address] [place] [address] PCP - General Family Medicine 08/17/21 Saleem Ch MD [address] [place] [address] Hematology/Oncology 12/24/22 Ofelia Delaney, 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.UI ARCHITECT [address] [place] [address] Judicial [facility] 04/23/24 Software Release Manager Relationship Specialty Start Date End Date Jes Fuentes MD [address] [place] [address] PCP - General Family Medicine 08/17/21 Saleem Ch MD [address] [place] [address] Hematology/Oncology 12/24/22 Ofelia Delaney, 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.UI ARCHITECT [address] [place] [address] Judicial Administrative [facility]Bu[facility] Medicine 04/23/24 Software Release Manager Relationship Specialty Start Date End Date Jes Fuentes MD [address] [place] [address] PCP - General Family Medicine 08/17/21 Saleem Ch MD [address] [place] [address] Hematology/Oncology 12/24/22 Ofelia Delaney, 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.UI ARCHITECT [address] [place] [address] Judicial Administrative [facility]Cent[facility] 04/23/24 Tomasa Laguerre APRN.UI ARCHITECT [address] [place] [address] [facility]ly [facility] 04/23/24 Software Release Manager Relationship Specialty Start Date End Date Jes Fuentes MD [address] [place] [address] PCP - General Family Medicine 08/17/21 Saleem Ch MD [address] [place] [address] Hematology/Oncology 12/24/22 Ofelia Delaney 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.UI ARCHITECT [address] [place] [address] [facility]ly [facility] 04/23/24 Tomasa Laguerre APRN.UI ARCHITECT [address] [place] [address] [facility]ly [facility] 04/23/24 Software Release Manager Relationship Specialty Start Date End Date Jes Fuentes MD [address] [place] [address] PCP - General Family Medicine 08/17/21 Saleem Ch MD [address] [place] [address] Hematology/Oncology 12/24/22 Ofelia Delaney 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.UI ARCHITECT [address] [place] [address] [facility]ly [facility] 04/23/24 Tomasa Laguerre APRN.UI ARCHITECT [address] [facility] [place] [address] [facility]ly [facility] 04/23/24 Software Release Manager Relationship Specialty Start Date End Date Jes Fuentes MD [address] [facility] [place] [address] PCP - General Family Medicine 08/17/21 Saleem Ch MD [address] [place] [address] Hematology/Oncology 12/24/22 Ofelia Delaney APRN.UI ARCHITECT [address] [place] [address] [facility]ly [facility] 04/23/24 Tomasa Laguerre APRN.UI ARCHITECT [address] [facility] [place] [address] [facility]ly [facility] 04/23/24 Software Release Manager Relationship Specialty Start Date End Date Jes Fuentes MD [address] [facility] [place] [address] PCP - General Family Medicine 08/17/21 Saleem Ch MD [address] [place] [address] Hematology/Oncology 12/24/22 Ofelia Delaney APRN.UI ARCHITECT [address] [facility] [place] [address] Formerly [facility] 04/23/24 Tomasa Laguerre APRN.UI ARCHITECT [address] [place] [address] Judicial Administrative Assistant [facility] 04/23/24 Software Release Manager Relationship Specialty Start Date End Date Jes Fuentes MD [address] [place] [address] PCP - General Family Medicine 08/17/21 Saleem Ch MD [address] [facility] [address] Hematology/Oncology 12/24/22 Ofelia Delaney APRN.UI ARCHITECT [address] [facility] [place] [address] Judicial Administrative [facility]Bu[facility] Medicine 04/23/24 Tomasa Laguerre APRN.UI ARCHITECT [address] [place] [address] Judicial Administrative [facility]Cent[facility] 04/23/24 Software Release Manager Relationship Specialty Start Date End Date Jes Fuentes MD [address] [facility] [place] [address] PCP - General Family Medicine 08/17/21 Saleem Ch MD [address] [place] [address] Hematology/Oncology 12/24/22 Ofelia Delaney APRN.UI ARCHITECT [address] [facility] [place] [address] Judicial Administrative AssistantCent[facility] 04/23/24 Tomasa Laguerre APRN.UI ARCHITECT [address] [place] [address] Judicial Administrative Assistant Family Medicine 04/23/24 Software Release Manager Relationship Specialty Start Date End Date Jes Fuentes MD [address] [place] [address] PCP - General Family Medicine 08/17/21 Saleem Ch MD [address] [place] [address] Hematology/Oncology 12/24/22 Ofelia Delaney 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.UI ARCHITECT [address] [place] [address] Judicial Administrative Assistant Family Medicine 04/23/24 Tomasa Laguerre 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.UI ARCHITECT [address] [place] [address] Judicial Administrative Assistant Family [facility] 04/23/24 Software Release Manager Relationship Specialty Start Date End Date Jes Fuentes MD [address] [facility] [place] [address] PCP - General Family Medicine 08/17/21 Saleem Ch MD [address] [place] [address] Hematology/Oncology 12/24/22 Ofelia Delaney 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.UI ARCHITECT [address] [facility] [place] [address] Judicial Administrative Assistant Family Medicine 04/23/24 Tomasa Laguerre 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.UI ARCHITECT [address] [place] [address] Judicial Administrative Assistant Family Medicine 04/23/24 Software Release Manager Relationship Specialty Start Date End Date Jes Fuentes MD [address] [place] [address] PCP - General Family Medicine 08/17/21 Saleem Ch MD [address] [place] [address] Hematology/Oncology 12/24/22 Ofelia Delaney 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.UI ARCHITECT [address] [place] [address] Judicial Administrative Assistant Family Medicine 04/23/24 Tomasa Laguerre APRN.UI ARCHITECT [address] [place] [address] Judicial Administrative AssistantBu[facility] Medicine 04/23/24 Software Release Manager Relationship Specialty Start Date End Date Jes Fuentes MD [address] [place] [address] PCP - General Family Medicine 08/17/21 Saleem Ch MD [address] [place] [address] Hematology/Oncology 12/24/22 Ofelia Delaney 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.UI ARCHITECT [address] [place] [address] Judicial Administrative Assistant Family Medicine 04/23/24 Tomasa Laguerre APRN.UI ARCHITECT [address] [place] [address] Judicial Administrative Assistant Family Medicine 04/23/24 Team Status: Active Member Role Status Dates Dr. Jes Fuentes MD Primary Care Provider Active Team Status: Inactive Member Role Status Dates Dr. Jes Fuentes MD Primary Care Provider Active Start: June 05, 2024 End: June 05, 2024 Dr. Jes Fuentes MD Referring Provider Active Start: June 05, 2024 End: June 05, 2024 JAVIER Escobar Attending Provider Active Start: June 05, 2024 End: June 05, 2024 Team Status: Inactive Member Role Status Dates Dr. Jes Fuentes MD Primary Care Provider Active Start: August 06, 2024 End: August 06, 2024 Dr. Jes Fuentes MD Referring Provider Active Start: August 06, 2024 End: August 06, 2024 Dr. Salbador Fofana DO Attending Provider Active Start: August 06, 2024 End: August 06, 2024 Team Status: Active Member Role Status Dates Dr. Jes Fuentes MD Primary Care Provider Active Start: August 06, 2024 Dr. Jes Fuentes MD Referring Provider Active Start: August 06, 2024 Dr. Salbador Fofana DO Attending Provider Active Start: August 06, 2024 Dr. Salbador Fofana DO Other Provider Active St art: August 06, 2024 Team Status: Inactive Member Role Status Dates Dr. Jes Fuentes MD Primary Care Provider Active Start: August 13, 2024 End: August 13, 2024 Dr. Guevara Trevino DO Emergency Provider Active S tart: August 13, 2024 End: August 13, 2024 Software Release Manager Relationship Specialty Start Date End Date Jes Fuentes MD [address] [place], [place] [address] PCP - General Family Medicine 08/17/21 Saleem Ch MD [address] [place], [place] [address] Hematology/Oncology 12/24/22 Ofelia Delaney APRN.MARISELA [address] [place], [place] [id number] Judicial Administrative Assistant Family Medicine 04/23/24 Tomasa Laguerre APRN.UI ARCHITECT [address] [place] [address] Formerly [facility] 04/23/24 Software Release Manager Relationship Specialty Start Date End Date Jes Fuentes MD [address] [place] [address] PCP - General Family Medicine 08/17/21 Saleem Ch MD [address] [place] [address] Hematology/Oncology 12/24/22 Ofelia Delaney APRN.UI ARCHITECT [address] [place] [address] Formerly [facility] 04/23/24 Tomasa Laguerre APRN.UI ARCHITECT [address] [place] [address] Formerly [facility] 04/23/24 Software Release Manager Relationship Specialty Start Date End Date Jes Fuentes MD [address] [place] [address] PCP - General Family Medicine 08/17/21 Saleem Ch MD [address] [place] [address] Hematology/Oncology 12/24/22 Ofelia Delaney APRN.UI ARCHITECT [address] [place] [address] Formerly [facility] 04/23/24 Tomasa Laguerre APRN.UI ARCHITECT [address] [place] [address] Judicial Administrative Assistant Family Medicine 04/23/24 Software Release Manager Relationship Specialty Start Date End Date Jes Fuentes MD [address] [place] [address] PCP - General Family Medicine 08/17/21 Saleem Ch MD [address] [place] [address] Hematology/Oncology 12/24/22 Ofelia Delaney APRN.UI ARCHITECT [address] [place] [address] Judicial Administrative Assistant Family Medicine 04/23/24 Tomasa Laguerre APRN.UI ARCHITECT [address] [place] [address] Judicial Administrative Assistant Family [facility] 04/23/24 Software Release Manager Relationship Specialty Start Date End Date Jes Fuentes MD [address] [place] [address] PCP - General Family Medicine 08/17/21 Saleem Ch MD [address] [place] [address] Hematology/Oncology 12/24/22 Ofelia Delaney 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.UI ARCHITECT [address] [place] [address] Judicial Administrative Assistant Family Medicine 04/23/24 Tomasa Laguerre 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.UI ARCHITECT [address] [place] [address] Judicial Administrative Assistant Family Medicine 04/23/24 Software Release Manager Relationship Specialty Start Date End Date Jes Fuentes MD [address] [place] [address] PCP - General Family Medicine 08/17/21 Saleem Ch MD [address] [place] [address] Hematology/Oncology 12/24/22 Ofelia Delaney APRN.UI ARCHITECT [address] [place] [address] [facility] 04/23/24 Tomasa Laguerre APRN.UI ARCHITECT [address] [place] [address] Formerly [facility] 04/23/24 Software Release Manager Relationship Specialty Start Date End Date Jes Fuentes MD [address] [place] [address] PCP - General Family Medicine 08/17/21 Saleem Ch MD [address] [place] [address] Hematology/Oncology 12/24/22 Ofelia Delaney 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.UI ARCHITECT [address] [place] [address] Formerly [facility] 04/23/24 Tomasa Laguerre APRN.UI ARCHITECT [address] [place] [address] Formerly [facility] 04/23/24 Team Status: Active Member Role Status Dates Dr. Jes Fuentes MD Primary Care Provider Active Start: August 06, 2024 Dr. Ricky Nath MD Attending Provider Active Start: August 06, 2024 Dr. Ricky Nath MD Referring Provider Active Start: August 06, 2024 Team Status: Inactive Member Role Status Dates Dr. Jes Fuentes MD Primary Care Provider Active Start: August 13, 2024 End: August 13, 2024 Dr. Guevara Trevino DO Attending Provider Active S tart: August 13, 2024 End: August 13, 2024 Dr. Guevara Trevino DO Emergency Provider Active S tart: August 13, 2024 End: August 13, 2024 Team Status: Inactive Member Role Status Dates Dr. Jes Fuentes MD Primary Care Provider Active Start: 2024 End: 2024 Dr. Jes Fuentes MD Referring Provider Active Start: 2024 End: 2024 JAVIER Escobar Attending Provider Active Start: 2024 End: 2024 Team Status: Inactive Member Role Status Dates Dr. Jes Fuentes MD Primary Care Provider Active Start: October 24, 2024 End: October 24, 2024 Dr. Jes Fuentes MD Referring Provider Active Start: October 24, 2024 End: October 24, 2024 Dr. Salbador Fofana DO Attending Provider Active Start: October 24, 2024 End: October 24, 2024 Team Status: Active Member Role Status Dates Dr. Jes Fuentes MD Primary Care Provider Active Start: October 24, 2024 Dr. Jes Fuentes MD Referring Provider Active Start: October 24, 2024 Dr. Salbador Fofana DO Attending Provider Active Start: October 24, 2024 Dr. Salbador Fofana DO Other Provider Active St art: October 24, 2024 Software Release Manager Relationship Specialty Start Date End Date Jes Fuentes MD [address] [place], [place] [id number] PCP - General Family Medicine 08/17/21 Saleem Ch MD [address] [place], [place] [id number] Hematology/Oncology 12/24/22 Ofelia Delaney APRN.UI ARCHITECT [address] [place], [place] [address] Formerly [facility] 04/23/24 Tomasa Laguerre 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.UI ARCHITECT [address] [place], [place] [address] Formerly [facility] 04/23/24 Team Status: Inactive Member Role Status Dates Dr. Jes Fuentes MD Primary Care Provider Active Start: November 07, 2024 End: November 07, 2024 Dr. Jes Fuentes MD Referring Provider Active Start: November 07, 2024 End: November 07, 2024 JAVIER Escobar Attending Provider Active Start: November 07, 2024 End: November 07, 2024 Reason for Visit (unrecogniz ed section and content) Reason Comments Infusion Headache Specialty Diagnoses / Procedures Referred By Contac t Referred To Contact Neurology / HEADACHE Diagnoses DHE Infusion Day #1 Procedures INFUSION HEADACHE Zoraida Rodarte, LARISA.UI ARCHITECT [address] [place] [address] Neur Headache Main S[address] [facility] [place] [address] Referral ID Status Reason Start Date Expiration Date Visits Requested Visits Authorized [id number] Authorized Financial Clearance Not Required 08/11/2023 05/15/2024 99 99 Specialty Diagnoses / Procedures Referred By Contac t Referred To Contact Diagnoses Intractable chronic 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 Procedures INJECTION, EPTINEZUMAB-JJMR, 1 MG increased dosage, due now vyepti 300mg q 90days Zoraida Rodarte APRN.UI ARCHITECT [address] [place] [address] Neur Headache Main [address] [facility] [place] [address] Referral ID Status Reason Start Date Expiration Date V isits Requested Visits Authorized [id number] Pending Review 02/01/2023 05/15/2024 99 99 Reason Comments Botox Injection 3 Month Specialty Diagnoses / Procedures Referred By Contac t Referred To Contact HEADACHE Diagnoses Chronic migraine without aura, intractable, without status migrainosus Procedures BOTULINUM TOXIN A PER 1 UNIT CHEMODERVATE FACIAL/TRIGEM/CERV MUSC MIGRAINE Renewal due 10/02/2022 Botox 200 units every 12 weeks for 1 year through [facility] buy and bill Preempt protocol [id number] Procedure -88900 chemodervate facial/trigem/cerv musc migraine Zoraida Rodarte, 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.UI ARCHITECT [address] [place] [address] Neur Headache Main [address] [place] [address] Referral ID Status Reason Start Date Expiration Date V isits Requested Visits Authorized [id number] Authorized 10/02/2022 09/19/2023 5 5 Reason Comments Physical Therapy Specialty Diagnoses / Procedures Referred By Contac t Referred To Contact PHYSICAL THERAPY Diagnoses Left-sided low back pain with right-sided sciatica, unspecified chronicity Stress incontinence Procedures CONSULT TO PHYSICAL THERAPY PHYSICAL THERAPY EVALUATION HIGH COMPLEX 45 MINS THERAPEUTIC EXERCISES RE, EA 15 MIN. Ofelia Delaney, 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.UI ARCHITECT [address] [place] [address] [facility] [address] [place] [address] Referral ID Status Reason Start Date Expiration Date Visits Requested Visits Authorized [id number] Authorized Auto-Generat ed Referral 09/13/2022 05/15/2023 20 20 Specialty Diagnoses / Procedures Referred By Contac t Referred To Contact [facility] Diagnoses Left-sided low back pain with right-sided sciatica, unspecified chronicity Stress incontinence Procedures CONSULT TO PHYSICAL THERAPY PHYSICAL THERAPY EVALUATION HIGH COMPLEX 45 MINS THERAPEUTIC EXERCISES RE, EA 15 MIN. Ofelia Delaney APRN.UI ARCHITECT [address] [place] [address] [facility] [place] [address] [place] [address] Reason Comments Botox Injection Specialty Diagnoses / Procedures Referred By Contac t Referred To Contact HEADACHE Diagnoses Chronic migraine without aura, intractable, without status migrainosus Procedures BOTULINUM TOXIN A PER 1 UNIT CHEMODERVATE FACIAL/TRIGEM/CERV MUSC MIGRAINE Renewal due 09/20/2021 Botox 200 units every 12 weeks for 1 year through [facility] buy and bill facial/trigem/cerv musc migraine Zoraida Rodarte, RESTAURANT HOST/HOSTESS.UI ARCHITECT [address] [place] [address] Neur Headache Main [address] [place] [address] Referral ID Status Reason Start Date Expiration Date Visits Re quested Visits Authorized [id number] Closed 09/20/2021 09/18/2022 4 4 Reason Comments Headache Infusion Specialty Diagnoses / Procedures Referred By Contac t Referred To Contact Neurology / HEADACHE Diagnoses DHE Procedures INFUSION HEADACHE Self Neur Headache Main [address] [place] [address] Referral ID Status Reason Start Date Expiration Date Visits Re quested Visits Authorized [id number] Closed 06/09/2022 09/07/2022 3 3 Reason Comments Neurotoxin Injection Specialty Diagnoses / Procedures Referred By Contac t Referred To Contact HEADACHE Diagnoses Chronic migraine without aura, intractable, without status migrainosus Procedures BOTULINUM TOXIN A PER 1 UNIT CHEMODERVATE FACIAL/TRIGEM/CERV MUSC MIGRAINE Renewal due 09/20/2021 Botox 200 units every 12 weeks for 1 year through [facility] facial/trigem/cerv musc migraine Zoraida Rodarte, RESTAURANT HOST/HOSTESS.UI ARCHITECT [address] [place] [address] Neur Headache Main [address] [place] [address] Referral ID Status Reason Start Date Expiration Date V isits Requested Visits Authorized [id number] Authorized 09/20/2021 09/18/2022 4 4 Reason Comments Depression Dental Problem possible infected to oth causing migraines to flare Reason Comments Radiology US Specialty Diagnoses / Procedures Referred By Contac t Referred To Contact US IMAGING Diagnoses Goiter, nontoxic, multinodular Procedures US THYROID/PARATHYROID US SOFT TISSUE HEAD & NECK REAL TIME IMGE Jes Cabral MD [address] [place] [address] Us Imaging Referral ID Status Reason Start Date Expiration Date V isits Requested Visits Authorized [id number] Closed Auto-Generate d Referral 08/17/2021 09/16/2022 1 1 Reason Comments Follow Up med change effexor i ncrease Reason Comments Elbow Injury Reason Comments Tetanus Vaccine Question Reason Comments Pain, Back Reason Comments Results Reason Comments Palpitations Reason Comments Pain (foot) Right for awhile abo ut 3 months is on her feet a lot. Starting in her left foot now. Reason Onset Date Comments Refill Request 04/21/2022 Reason Comments Migraine Reason Comments Established Patient Follow Up Pain Reason Comments Headache Referral ID Status Reason Start Date Expiration Date V isits Requested Visits Authorized [id number] Authorized 06/09/2022 09/07/2022 3 3 Reason Comments Insurance Authorization Prior Auth Denbriana d: Peer to peer requested for Vyepti Reason Onset Date Comments Refill Request 06/15/2022 Reason Comments Insurance Authorization Nurtec Reason Comments Eye Problem Left Eye X1 day, red and itc hy Reason Comments Fatigue Reason Comments Follow Up 2 week fatigue Reason Comments Results Reason Onset Date Comments Refill Request 12/04/2022 Specialty Diagnoses / Procedures Referred By Contac t Referred To Contact Diagnoses Intractable chronic 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 Procedures INJECTION, EPTINEZUMAB-JJMR, 1 MG Zoraida Rodarte, RESTAURANT HOST/HOSTESS.UI ARCHITECT [address] [place] [address] Neur Headache Main [address] [place] [address] Referral ID Status Reason Start Date Expiration Date V isits Requested Visits Authorized [id number] Authorized 07/01/2022 12/28/2022 2 2 Reason Comments Recheck Urg Care follow up; back pain continues Reason Comments PT Eval Reason Onset Date Comments Refill Request 03/02/2023 Referral ID Status Reason Start Date Expiration Date V isits Requested Visits Authorized [id number] Authorized 02/01/2023 05/15/2023 99 99 Reason Onset Date Comments Refill Request 04/29/2023 Reason Comments Consult dyspepsia Specialty Diagnoses / Procedures Referred By Contac t Referred To Contact General Surgery Diagnoses Dyspepsia Procedures CONSULT TO GENERAL SURGERY OFFICE/OUTPATIENT [facility] 60 MINUTES Jes Fuentes MD [address] [place] [address] Referral ID Status Reason Start Date Expiration Date V isits Requested Visits Authorized [id number] Closed PCP Requested Referral 06/03/2023 06/02/2024 1 1 Referral ID Status Reason Start Date Expiration Date V isits Requested Visits Authorized [id number] Authorized 02/01/2023 05/15/2024 99 99 Reason Comments Follow Up Reason Comments Patient Update Pain at lower throat Reason Comments Follow Up Reason Comments Botox Injection Referral Request Reason Comments Blood Pressure Reason Comments Infusion Reason Comments Chronic Migraine Reason Comments Palpitations Few weeks worse th an when she had them 2 years ago Dizziness Nausea Reason Comments Patient Update Reason Comments Appointment Reason Comments PA Nurtec Reason Comments Insurance Authorization zofran Reason Comments Numbness tingling Reason Onset Date Comments Refill Request 10/20/2023 Reason Comments Numbness/Tingling Tingling bilateral a dasia from elbows to hands Specialty Diagnoses / Procedures Referred By Contac t Referred To Contact HEADACHE Diagnoses Chronic migraine without aura, intractable, without status migrainosus Botox renewal due 09/27/23. Botox 200 units every 12 weeks for 1 year through [facility] buy and bill Preempt protocol [id number] Procedure -13068 chemodervate facial/trigem/cerv musc migraine Procedures BOTULINUM TOXIN A PER 1 UNIT CHEMODERVATE FACIAL/TRIGEM/CERV MUSC MIGRAINE Zoraida Rodarte, RESTAURANT HOST/HOSTESS.UI ARCHITECT [address] [place] [address] Neur Headache Main [address] [place] [address] Referral ID Status Reason Start Date Expiration Date V isits Requested Visits Authorized [id number] Authorized 10/25/2023 10/24/2024 5 5 Reason Comments Patient Request Reason Onset Date Comments Refill Request 10/28/2023 Reason Comments Med Change Request Reason Comments New Patient Specialty Diagnoses / Procedures Referred By Contac t Referred To Contact Hematology Diagnoses Thrombocytosis Procedures CONSULT TO HEMATOLOGY OFFICE/OUTPATIENT NEW HIGH MDM 60 MINUTES Tomasa Laguerre, RESTAURANT HOST/HOSTESS.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 Reason Comments Radiology US Specialty Diagnoses / Procedures Referred By Contac t Referred To Contact BR IMAGING Diagnoses Mastalgia Procedures US BREAST LTD LEFT US BREAST UNI REAL TIME WITH IMAGE LIMITED Chio Ash, RESTAURANT HOST/HOSTESS.UI ARCHITECT [address] [place] [address] Br Imaging [address] [place] [address] Referral ID Status Reason Start Date Expiration Date V isits Requested Visits Authorized [id number] Closed Auto-Generate d Referral 11/09/2023 05/15/2024 1 1 Reason Comments Radio Imaging Study Comments Reason Comments Social Work Services Reason Comments Pelvic Pain Reason Comments Orders Reason Comments Non-Chemotherapy Treatment Specialty Diagnoses / Procedures Referred By Contac t Referred To Contact Diagnoses Menorrhagia with regular cycle Iron malabsorption Iron deficiency anemia due to chronic blood loss Procedures IRON SUCROSE INJECTION PER 1 MG Ashley Carmen, DO [address] [place] [address] [facility] [address] [place] [address] Referral ID Status Reason Start Date Expiration Date V isits Requested Visits Authorized [id number] Authorized 11/09/2023 05/07/2024 6 6 Reason Comments Diarrhea Reason Comments [facility] Bilateral eyes, star julia Tuesday Reason Comments Vaginal Problem Reason Onset Date Comments Refill Request 01/10/2024 Reason Comments Eye Problem right eye pain x 1 d ay, redness and pain Referral ID Status Reason Start Date Expiration Date V isits Requested Visits Authorized [id number] Authorized 11/09/2023 07/31/2024 10 10 Reason Onset Date Comments Refill Request 02/19/2024 Reason Onset Date Comments Weight Management 02/24/2024 Reason Comments Insurance Authorization Qulipta 60MG tab lets Qulipta 60MG tablets Reason Comments Nurtec- NOT APPROVED Reason Onset Date Comments Insertion Of IUD 03/09/2024 Specialty Diagnoses / Procedures Referred By Lamontac t Referred To Contact [facility] Diagnoses Menorrhagia with regular cycle General counseling and advice for contraceptive management Procedures INSERT INTRAUTERINE DEVICE LEVONORGESTREL IU 52MG 5 YR INSERT INTRAUTERINE DEVICE Chio Ash APRN.UI ARCHITECT [address] [place] [address] [facility] [place] [address] Referral ID Status Reason Start Date Expiration Date V isits Requested Visits Authorized [id number] Closed Auto-Generate d Referral 02/24/2024 02/23/2025 1 1 Reason Comments 06/16/2023 EGD [facility] Reason Comments Orders Reason Comments Follow Up From ER-Pelvic Pain Reason Comments Pelvic Pain Reason Onset Date Comments IUD Removal 03/28/2024 Specialty Diagnoses / Procedures Referred By Contac t Referred To Contact [facility] Diagnoses Pelvic pain in female Procedures REMOVE INTRAUTERINE DEVICE REMOVE INTRAUTERINE DEVICE Danish Hernandez MD [address] [place] [address] [facility] [address] [place] [address] Referral ID Status Reason Start Date Expiration Date V isits Requested Visits Authorized [id number] Closed Auto-Generate d Referral 03/26/2024 03/26/2025 1 1 Specialty Diagnoses / Procedures Referred By Contac t Referred To Contact MR IMAGING Diagnoses Worsening headaches Visual changes Confusion Procedures MRI BRAIN WO/W IVCON MRI BRAIN BRAIN STEM W/O W/CONTRAST MATERIAL Zoraida Rodarte, RESTAURANT HOST/HOSTESS.UI ARCHITECT [address] [place] [address] Mr Imaging [facility] Referral ID Status Reason Start Date Expiration Date V isits Requested Visits Authorized [id number] Closed Auto-Generate d Referral 03/06/2024 04/05/2025 1 1 Reason Comments AUB Reason Comments Breast Problem LT breast pain Reason Comments Results Reason Comments CARD New Patient Consult Referred by PCP - SVT, Atrial Tachycardia on ZIOC/O random palpitations and dizziness for yearsZIO 01/25/24Stress Test 02/2022 @ [place] Reason Comments Diarrhea 1 month; has tried o tc Pepto without relief Reason Onset Date Comments Refill Request 06/01/2024 Reason Comments Weight Management Reason Comments New Patient Evaluation Specialty Diagnoses / Procedures Referred By Contac t Referred To Contact Diagnoses Palpitations BLAISE (obstructive sleep apnea) Procedures CONSULT TO SLEEP MEDICINE - ADULT OFFICE/OUTPATIENT NEW HIGH MDM 60 MINUTES Hilda Orellana, DO [address] [place] [address] Phone: tel: fax: Referral ID Status Reason Start Date Expiration Date V isits Requested Visits Authorized [id number] Closed PCP Requested Referral 05/14/2024 05/14/2025 1 1 Specialty Diagnoses / Procedures Referred By Contac t Referred To Contact HEADACHE Diagnoses Chronic migraine without aura, intractable, without status migrainosus Botox renewal due 09/27/23. Botox 200 units every 12 weeks for 1 year through [facility] buy and bill Preempt protocol [id number] Procedure -70663 chemodervate facial/trigem/cerv musc migraine Procedures BOTULINUM TOXIN A PER 1 UNIT CHEMODERVATE FACIAL/TRIGEM/CERV MUSC MIGRAINE Zoraida Rodarte, LARISA.UI ARCHITECT [address] [place] [address] Phone: tel: fax: Neurology [address] [place] [address] Phone: tel: fax: Specialty Diagnoses / Procedures Referred By Ana t Referred To Contact Neurology / HEADACHE Diagnoses DHE 1 Procedures INFUSION HEADACHE Self Neurology [address] [place] [address] Phone: tel: fax: Referral ID Status Reason Start Date Expiration Date V isits Requested Visits Authorized [id number] Authorized 07/18/2024 10/16/2024 1 99 Reason Comments Established Patient Reason Comments Appointment ER follow up Reason Comments Forms [facility] terology Reason Onset Date Comments Refill Request 08/30/2024 Reason Comments Insurance Authorization Reason Comments Referral Request Botox Reason Onset Date Comments Refill Request 09/30/2024 Reason Comments Well Woman Reason Onset Date Comments Refill Request 10/24/2024 Reason Comments Refill Request [facility] managed refill Goals (unrecognized section and content) Goals may be documented in a n alternate sectionGoals may be documented in an alternate section Inactive Administered Medications - up to 3 most recent administrations Administered Medications (un recognized section and content) Medication Order MAR Action Action Date Dose Rate Site eptinezumab-jjmr 300 mg in NaCl 0.9% 100 mL (VYEPTI) 300 mg, INTRAVENOUS, at 200 mL/hr, Administer over 30 Minutes, ONCE, 1 dose, On Tue06/24/23 at 1030, EXP: Administer with 0.2 micron filter. New Bag/Syringe/Bottle 06/24/2023 10:37 AM EST 300 mg 200 mL/hr Inactive Administered Medications - up to 3 most recent administrations Medication Order MAR Action Action Date Dose Rate Site BUPivacaine HCl 15 mg injection (SENSORCAINE) 15 mg (6 mL), OTHER, ONCE, 1 dose, On Alisa 07/21/23 at 1200 Given 07/21/2023 2:59 PM EST 15 mg Inactive Administered Medications - up to 3 most recent administrations Medication Order MAR Action Action Date Dose Rate Site onabotulinum toxin type A 200 Units injection (BOTOX) 200 Units, INTRAMUSCULAR, ONCE, 1 dose, On Tue08/02/23 at 1330, This record documents the total dose provided to patient. See progress note for specific locations and amounts administered. Given 08/02/2023 2:12 PM EDT 195 Units Othe r Inactive Administered Medications - up to 3 most recent administrations Medication Order MAR Action Action Date Dose Rate Site cyproheptadine 4 mg tab(s) (PERIACTIN) 4 mg, ORAL, ONCE, 1 dose, On Tue08/15/23 at 1000 Given 2023 10:01 AM EDT 4 mg dihydroergotamine 0.5 mg in NaCl 0.9% 50 mL 0.5 mg, INTRAVENOUS, at 100 mL/hr, Administer over 30 Minutes, EVERY 30 MINUTES, 2 doses, First dose on Tue08/15/23 at 0930, Last dose on Tue08/15/23 at 1000, Hazardous Potential Reproductive Risk Drug: Use appropriate PPE. New Bag/Syringe/Bottle 2023 11:45 AM EDT 0.5 mg 100 mL/hr New Bag/Syringe/Bottle 2023 10:29 AM EDT 0.5 mg 100 mL/hr diphenhydrAMINE 25 mg injection (BENADRYL) 25 mg, INTRAVENOUS, NEEDED, 2 doses, Starting on Tue08/15/23 at 0952, Until Tue08/15/23 at 1534, Sedation/Dystonia/Akathisia/Anxiety 3rd line Given 2023 9:52 AM EDT 25 mg keTORolac 30 mg injection (Toradol) 30 mg, INTRAVENOUS, ONCE, 1 dose, On Tue08/15/23 at 0930, Ketorolac (Toradol) is indicated for the short-term (up to 5 days) management of moderately severe acute pain. Continuation of ketorolac (Toradol) beyond 5 days increases the risk of developing serious adverse events. Please verify the duration of therapy for ketorolac (Toradol)., If ordered PRN for pain, patient/guardian may elect to receive this medication for higher pain levels INSTEAD of the opioid, if preferred: N/A Given 2023 9:56 AM EDT 30 mg magnesium sulfate 1 g in D5W 100 mL 1 g, INTRAVENOUS, at 100-200 mL/hr, Administer over 0.5-1 Hours, ONCE, 1 dose, On Tue08/15/23 at 0930, Magnesium Sulfate IV bolus will be infused at a rate of 1 gram/hr. The following care areas may administer a magnesium sulfate bolus at a rate of 2 grams/hr if necessary: 1) ICUs/PACU/ED 2) Adult Hematology/Oncology 3) Labor and Delivery 4) Cardiac Step Down 5) Headache Clinic The following care areas may administer a magnesium sulfate bolus at a rate of GREATER than 2 grams/hr if necessary: 1) Adult and Pediatric Asthma Exacerbations 2) [place] 3) Pediatric BMT and Hematology/Oncology 4) Eclampsia or Preeclampsia New Bag/Syringe /Bottle 2023 12:32 PM EDT 1 g 100 mL/hr methocarbamol iv infusion 1,000 mg in NaCl 0.9% 100 mL (ROBAXIN) 1,000 mg, INTRAVENOUS, Administer over 30 Minutes, ONCE, 1 dose, On Tue08/15/23 at 0930, Administer IV while in recumbent position. Maintain position for at least 10-15 minutes following infusion. New Bag/Syringe /Bottle 2023 9:57 AM EDT 1,000 mg NaCl 0.9% 500 mL iv bolus 500 mL, INTRAVENOUS, at 999 mL/hr, Administer over 0.5 Hours, ONCE, 1 dose, On Tue08/15/23 at 0930 New Bag/Syringe /Bottle 2023 9:30 AM EDT 500 mL 999 mL/hr ondansetron (PF) 8 mg injection (ZOFRAN) 8 mg, INTRAVENOUS, ONCE, 1 dose, On Tue08/15/23 at 0930 Given 2023 9:50 AM EDT 8 mg ondansetron (PF) 8 mg injection (ZOFRAN) 8 mg, INTRAVENOUS, ONCE, 1 dose, On Tue08/15/23 at 1000, Give IV push over 2 minutes Given 2023 12:28 PM EDT 8 mg promethazine 25 mg tab(s) (PHENERGAN) 25 mg, ORAL, EVERY 4 HOURS NEEDED, 2 doses, Starting on Tue08/15/23 at 1306, Until Tue08/15/23 at 1534, Nausea/Vomiting - First Line - Enteral Given 2023 1:12 PM EDT 25 mg valproate sodium 1,000 mg in NaCl 0.9% 100 mL (DEPACON) 1,000 mg, INTRAVENOUS, at 300 mL/hr, Administer over 20 Minutes, ONCE, 1 dose, On Tue08/15/23 at 0930, Hazardous Potential Reproductive Risk Drug: Use appropriate PPE. New Bag/Syringe /Bottle 2023 11:14 AM EDT 1,000 mg 300 mL/hr FOR RECORDS PERTAINING TO PATIENTS WHO ARE OR HAVE BEEN ENROLLED IN A CHEMICAL DEPENDENCY/SUBSTANCEABUSE PROGRAM, SOME INFORMATION MAY BE OMITTED. This clinical summary was aggregated from multiple sources. Caution should be exercised in using it in the provision of clinical care. This summary normalizes information from multiple sources, and as a consequence, information in this document may materially change the coding, format and clinical context of patient data. In addition, data may be omitted in some cases. CLINICAL DECISIONS SHOULD BE BASED ON THE PRIMARY CLINICAL RECORDS. [facility]. provides no warranty or guarantee of the accuracy or completeness of information in this document.
[2024-11-11 01:06] LABS: Beef <0.10 kU/L (Class 0); Chocolate <0.10 kU/L (Class 0); Codfish <0.10 kU/L (Class 0); Corn <0.10 kU/L (Class 0); Egg, Whole <0.10 kU/L (Class 0); Milk (Cow) <0.10 kU/L (Class 0); Mussels <0.10 kU/L (Class 0); Peanut <0.10 kU/L (Class 0); Pork <0.10 kU/L (Class 0); Salmon <0.10 kU/L (Class 0); Shrimp <0.10 kU/L (Class 0); Soybean <0.10 kU/L (Class 0); Tuna <0.10 kU/L (Class 0); Wheat <0.10 kU/L (Class 0)
== END | disposition home or self-care (01) ==
LOC: LAB 13:13
PROVIDERS: PCP Family Medicine; Referring Provider Student in an Organized Health Care Education/Training Program; Visit Provider Student in an Organized Health Care Education/Training Program
DX: R11.2 Nausea with vomiting, unspecified (principal); R19.7 Diarrhea, unspecified
CPT/HCPCS: 36415; 80053; 85025; 86003; 86005

== ENCOUNTER 2024-11-15 08:13 | Emergency (ER) | payer OTHER, SELFPAY ==
[2024-11-15 08:13] VITALS: BP 142/107; PULSE 98; RESP 14; TEMP 36.7; O2SAT 100; BMI 32.9
[2024-11-15 08:51] LABS: Hematocrit 42.0 % (37-47); Hemoglobin 13.5 g/dL (12.0-15.0); Immature Granulocytes Count 0.040 X10^3/uL (0.0-0.0); Mean Corp Hgb Conc 32.1 g/dL (32-36); Mean Corpuscular Volume 83.2 fL (81-99); Mean Platelet Vol. 9.7 fl (6.2-12.0); NRBC Flagged by Analyzer 0 % (0-5); Platelet Count 542 K/mm3 (150-450); RBC Distribution Width CV 13.2 % (11.6-14.6); RBC Distribution Width SD 39.6 fl (35.1-43.9); Red Blood Count 5.05 M/mm3 (4.2-5.4); White Blood Count 8.7 K/mm3 (4.4-11.0)
[2024-11-15] MEDS: 0.9% Normal Saline (1000mL) 1,000 ML 999 ML IV (09:09)
[2024-11-15 09:10] LABS: Red Blood Cells-Urine 0 SEEN /hpf (0-5)
[2024-11-15 09:13] LABS: Color, Urine Yellow (Yellow); Glucose, Dipstick Normal (Normal); Ketone-Dipstick Negative (Negative); Leukocyte Esterase-Dipstick 100 /ul (Negative); Nitrite-Dipstick Negative (Negative); Occult Blood-Urine 10 /ul (Negative); Protein-Dipstick 30 mg/dl (Negative); Specific Gravity, Urine 1.020 (1.002-1.030)
[2024-11-15 09:14] LABS: Urine Bilirubin Dipstick 3 mg/dL (Negative)
[2024-11-15 09:16] LABS: AST(SGOT) 32 U/L (<=31); Alanine Aminotransfer ALT/SGPT 66 U/L (<=34); Albumin, Serum 4.6 g/dL (3.5-5.0); Alkaline Phosphatase 78 U/L (35-104); Anion Gap 13 (5-15); BUN 10 mg/dL (4-19); BUN/Creat Ratio 12.9 RATIO (10-20); Calcium,Total 9.9 mg/dL (7.6-11.0); Carbon Dioxide 23.3 mmol/L (21.0-32.0); Chloride 104 mmol/L (98-108); Estimated Creatinine Clearance 111.01 ml/min (50-250); Globulin 2.7 g/dL (2.2-4.2); Glucose 94 mg/dL (70-99); Lipase 14 U/L (13-75); Potassium 3.5 mmol/L (3.3-5.1)
[2024-11-15 09:24] LABS: Mucous, Urine RARE /hpf (<or=2+); Squamous Epithelial Cells - UA 0-5 SEEN /hpf (5-10)
[2024-11-15 10:13] VITALS: BP 136/99; PULSE 81; RESP 16; O2SAT 99
[2024-11-15] MEDS: Lidocaine 2% Viscous15 ML UDC 15 ML PO (10:29)
[2024-11-15 11:07] VITALS: BP 132/84; PULSE 89; RESP 15; TEMP 36.8; O2SAT 100
== END 2024-11-15 11:08 | disposition home or self-care (01) ==
PROVIDERS: Emergency Provider Emergency Medicine; PCP Family Medicine; Visit Provider Emergency Medicine
DX: R10.13 Epigastric pain (principal); E11.9 Type 2 diabetes mellitus without complications; R11.2 Nausea with vomiting, unspecified; R19.7 Diarrhea, unspecified; I10 Essential (primary) hypertension; K21.9 Gastro-esophageal reflux disease without esophagitis; F41.9 Anxiety disorder, unspecified; M19.90 Unspecified osteoarthritis, unspecified site; J45.909 Unspecified asthma, uncomplicated; G43.909 Migraine, unspecified, not intractable, without status migrainosus; Z90.49 Acquired absence of other specified parts of digestive tract; Z79.84 Long term (current) use of oral hypoglycemic drugs; Z79.899 Other long term (current) drug therapy
CPT/HCPCS: 74177; 80053; 81001; 83690; 85025; 93005; 96361; 96374; 96375; 99284; Q9967; A4216; J2405

== ENCOUNTER 2024-12-29 08:00 | Outpatient (CLI) | payer OTHER, SELFPAY | END 2024-12-29 23:59 | disposition home or self-care (01) | LOC: LABSPEC 03-27 12:03 | PROVIDERS: PCP Family Medicine; Referring Provider Physician Assistant Surgical; Visit Provider Physician Assistant Surgical | DX: R30.0 Dysuria (principal) | CPT/HCPCS: 87086; 87088 ==

== ENCOUNTER → 2025-04-03 | Outpatient (CLI) | payer OTHER, SELFPAY ==
--- NOTE | 2025-04-03 12:36 | US_ITS ---
PROCEDURE: BREAST LIMITED UNILATERAL 04/03/2025 REASON FOR EXAM: F, Age 34 y/o , PAIN Painful palpable lump in the left breast. COMPARISON: Prior mammogram done earlier in the day.. TECHNIQUE: Procedure Code: USBRSTLIMIT Modality: US Procedure: BREAST LIMITED UNILATERAL FINDINGS: The upper-outer quadrant of the left breast was examined. There is a 5 mm x 4 mm x 3 mm hypoechoic solid nodule with peripheral vascularity at the 2 o'clock position of the breast at 4 cm from the nipple. Biopsy is recommended. US/Breast Limited Unilateral IMPRESSION: 5 mm x 4 mm x 3 mm hypoechoic solid nodule with peripheral vascularity at the 2 o'clock position of the breast at 4 cm from the nipple. Biopsy is recommended. BI-RADS 4: SUSPICIOUS RECOMMENDATION: Biopsy Recommended Reading Location: [id number]
== END | disposition home or self-care (01) ==
LOC: OPBI 12:35
PROVIDERS: PCP Family Medicine; Referring Provider Obstetrics & Gynecology; Visit Provider Obstetrics & Gynecology
DX: N64.4 Mastodynia (principal); L53.9 Erythematous condition, unspecified; N63.21 Unspecified lump in the left breast, upper outer quadrant
CPT/HCPCS: 76642